=== PATIENT | female | born 1965 | race Caucasian/White ===

== ENCOUNTER 2024-04-29 19:57 | Emergency (ER) | payer OTHER, SELFPAY ==
[2024-04-29 20:02] VITALS: BP 133/77
[2024-04-29 20:25] LABS: % Basophils 0.4 % (0-2); % Eosinophils 0.1 % (0-6); % Immature Granulocytes 0.6 % (0-0.5); % Lymphocytes 7.3 % (20.5-51.1); % Monocytes 7.3 % (1.7-9.3); % Neutrophils 84.3 % (42.2-75.2); Absolute Immature Granulocytes 0.1 10^3/uL (0-0.05); Absolute Lymphocytes 0.7 10^3/uL (1.2-3.4); Absolute Monocytes 0.7 10^3/uL (0.1-0.6); Absolute Neutrophils 8.3 10^3/uL (1.4-6.5); Hematocrit 35.6 % (37.0-47.0); Mean Corp Hgb Conc. 33.7 g/dL (33.0-37.0); Mean Corpuscular Hgb 29.4 pg (27.0-31.0); Mean Corpuscular Volume 87.3 fL (81.0-99.0); Mean Platelet Volume 11.2 fL (7.4-10.4); Nucleated Red Blood Cells % 0 %; Platelet Count 165 10^3/uL (130-400); Red Blood Cell Count 4.08 10^6/uL (4.20-5.40); Red Cell Dist. Width 13.9 % (11.5-14.5); White Blood Cell Count 9.8 10^3/uL (4.8-10.8)
[2024-04-29 20:30] LABS: Lactic Acid 2.3 mmol/L (0.7-2.0)
[2024-04-29 20:34] LABS: COVID-19 Antigen Negative (Negative)
[2024-04-29 20:46] LABS: ALT (SGPT) 26 U/L (0-35); AST (SGOT) 45 U/L (14-36); Albumin 3.7 g/dl (3.5-5.0); Alkaline Phosphatase 55 U/L (38-126); Blood Urea Nitrogen 23 mg/dl (7-17); Calcium 8.5 mg/dl (8.4-10.2); Carbon Dioxide 22 mmol/L (22-30); Chloride 97 mmol/L (98-107); Glucose 213 mg/dl (70-99); Potassium 4.5 mmol/L (3.5-5.1); Sodium 128 mmol/L (135-145); Total Protein 6.4 g/dl (6.3-8.2); eGFR 57.52
--- NOTE | 2024-04-29 21:52 | ED.GENMED ---
Addendum entered and electronically signed by YIFAN Thrasher 05/01/24 23:46:
Blood cx positive for gram stain of anaerobic blood cx; gram positive cocci urine cx however is e coli. I spoke with pt at home. She is feeling much better no fevers taking antibiotics and has follow-up with her family doctor.
Likely contaminant culture. sensitivities pending on urine cx
Original Note:
History of Present Illness
General
Chief Complaint: Fever
Source: patient
Exam Limitations: none
Time Seen by Provider: 04/29/24 21:15
History of Present Illness
History of Present Illness:
This is a 58 year old female that comes in with c/o dizziness, and not feeling right. States that 2 days ago she started to not feel well. States that she was sleeping a lot. States that when she would walk she was dizzy and lightheaded. States
that she did get up yesterday and went out for a drive with her children. Then she came home. States that she had shaking chills. States that today she was a little better but still felt unsteady. States that she had a headache with the dizziness.
States that she had a fever today. Denies any chest pain, SOB, abd pain, nausea, vomiting, diarrhea, urinary burning.
Past History
Past History
ED Past Medical History: Cancer (Endometrial CA, Breast CA), HTN, Hypercholesterolemia, IDDM and Other (Coarctation of aorta status post repair, breast CTA, )
ED Past Surgical History: Cardiac (Co-archtation of the aorta with stent), (2 ), Gynecological (Hysterectomy), Tonsilectomy and Other (Bilateral Mastectomy Right lymphectomy)
Social History
Tobacco: Non-smoker
Alcohol: None
Drug: None
Personal: Other ()
Living: with family
Review of Systems
Review of Systems
All Other Systems: ROS reviewed and negative except as documented in HPI and ROS
Constitutional: Reports fever and chills
EENT: Reports no symptoms
Respiratory: Reports no symptoms; Denies cough or trouble breathing
Cardiac: Reports no symptoms; Denies chest pain
ABD/GI: Reports no symptoms; Denies abdominal pain, nausea, vomiting or diarrhea
: Reports no symptoms; Denies dysuria, frequency or urgency
Musculoskeletal: Reports no symptoms
Skin: Reports no symptoms
Neurological: Reports dizzy and headache
Psychiatric: Reports no symptoms
Phy Exam
General Physical Exam
General Presentation: no apparent distress
General age: appears stated age
General Skin: cool and other (Clammy)
General Habitus: normal
General Mental: alert
General Hydration: appears well hydrated
ENT Exam
ENT Exam: TM's normal, pharynx normal and neck supple
Eye Exam
Eye Exam: EOMI
Cardiovascular Exam
Cardiovascular Exam: regular rate/rhythm, no edema, normal peripheral pulses and other (Murmur)
Pulmonary Exam
Pulmonary Exam: lungs clear, no respiratory distress, no rales, chest non tender, no crackles, no rhonchi, no wheezing and no cough
Gastrointestinal Exam
Gastrointestinal Exam: normal bowel sounds, non tender, soft, no organomegaly, no pulsatile mass and non distended
Musculoskeletal Exam
Musculoskeletal Exam: full ROM and no edema
Skin Exam
Skin Exam: normal color, warm/dry, no rash and no petechia
Psychiatric Exam
Psychiatric Exam: normal mood/affect
Course
Orders/Labs/Results
Orders:
Orders
04/29/24 20:13
COVID-19 Antigen Urgent
Source: Nasal Swab
Complete Blood Count/With Diff Urgent
Comprehensive Metabolic Panel Urgent
Lactic Acid Urgent
04/29/24 21:52
CT Head W/o Iv Contrast Urgent
Comment:
Reason For Exam: Dizziness
0.9% Sodium Chloride 1000 ml [Nss] 1,000 ml IV BOLUS
CR Chest - 2 Views Urgent
Comment:
Reason For Exam: Fever
04/29/24 21:56
Urinalysis Reflex To Culture Urgent
Date Specimen was Collected: 04/29/24
Time Specimen was Collected: 21:53
Urine Microscopic Reflex Cult Urgent
Influenza A+B Rapid Molecular Urgent
FAN Source: Nasal Swab
Specimen Description:
Urine Culture Urgent
FAN Source: U
Specimen Description:
Date Specimen was Collected: 04/29/24
Time Specimen was Collected: 21:53
04/30/24 00:03
0.9% Sodium Chloride 1000 ml [Nss] 1,000 ml IV BOLUS
04/30/24 00:08
Blood Culture Urgent
FAN Source: Blood/Venous
Specimen Description:
04/30/24 00:53
CefTRIAXone [Rocephin] 1,000 mg IV NOW STA
Abnormal Lab Results
04/29/24 04/29/24
20:13 21:56
RBC 4.08 L 10^6/uL
(4.20-5.40)
Hct 35.6 L %
(37.0-47.0)
MPV 11.2 H fL
(7.4-10.4)
Abs Immat Gran (auto) 0.1 H 10^3/uL
(0-0.05)
Absolute Neuts (auto) 8.3 H 10^3/uL
(1.4-6.5)
Absolute Lymphs (auto) 0.7 L 10^3/uL
(1.2-3.4)
Absolute Monos (auto) 0.7 H 10^3/uL
(0.1-0.6)
Immature Gran % 0.6 H %
(0-0.5)
Neutrophils % 84.3 H %
(42.2-75.2)
Lymphocytes % 7.3 L %
(20.5-51.1)
Sodium 128 L mmol/L
(135-145)
Chloride 97 L mmol/L
(98-107)
BUN 23 H mg/dl
(7-17)
Creatinine 1.1 H mg/dL
(0.6-1.0)
Glucose 213 H mg/dl
(70-99)
Lactic Acid 2.3 H mmol/L
(0.7-2.0)
AST 45 H U/L
(14-36)
Ur Occult Blood Reflex 2+ A
(Negative)
Leukocyte Esterase Rfl 2+ A
(Negative)
Urine WBC (Reflex) >100 A /HPF
(0-5)
Urine Bacteria (Reflex) Many A
(Negative)
Urine Albumin (Reflex) 3+ A
(Neg - Trace)
04/29/24 20:13
04/29/24 20:13
Hyponatremia. Chloride slightly low. Dehydration. Glucose nonfasting. Lactic acid elevated at 2.3, AST elevation. COVID and influenza negative.
Urine positive for infection.
Vital Signs
Initial and Last Documented VS:
Initial Vital Signs
Temp Pulse Resp BP Pulse Ox
102.6 F H 122 20 133/77 93
04/29/24 20:02 04/29/24 20:02 04/29/24 20:02 04/29/24 20:02 04/29/24 20:02
Last Documented Vital Signs
Temp Pulse Resp BP Pulse Ox
99.4 F 95 28 155/74 96
04/29/24 22:08 04/30/24 01:00 04/30/24 01:00 04/30/24 01:00 04/30/24 01:00
Exercise Specialist consulted with Physician
Exercise Specialist consulted with physician?: Yes
Name of Physician Consulted: Dr. Correia
MDM/Problems Addressed
Differential Diagnosis Includes:
COVID, UTI, Viral syndrome. Hyponatremia
MDM/Problems Addressed:
This is a 58 year old female that comes in with c/o dizziness and fever. States that this started 2 days ago and that she has just not felt well. State that he is off balance even when she walked from the BR in the ER room.
Will get labs, CT head, chest x-ray. Give IV fluids.
Back into see patient. Explained that her Sodium is low and that was why she had the 2 liters of fluid. Patient also has a UTI. Will give patient IV Rocephin here and an antibiotic for home for the next 7 days. Patient to limit her water intake to
6-8oz glasses daily. Follow up with the family doctor for recheck of her Sodium. Return with any concerns.
*Radiology
Radiology exam reviewed: preliminary read by ED provider (Chest-negative for active disease. ), radiology read reviewed (CT head- night hawk-NO acute intracranial findings. Disproportionate cerebellar vermis volume loss. Follow up with neurology is
recommended. Senescent changes. Prominent retrocerebellar CSF space is likely related to volume loss, though an arachnoid cyst is also possible. Bilateral basal ganglia) and other (CT cont- mineralization. )
*Pulse Oximetry
Patient hypoxic: no
*EKG
Interpreted by ED Provider?: NA
Rate: EKG- N/A
*Poll Clerk Interpretation
Rate: Poll Clerk- N/A
*Critical Care Note
Total Time (30-74mins, 75-104mins- exclusive of procedures): Not Applicable
ED Attending Note
-
Portions of this chart may have been created with voice recognition software.� Occasional wrong word or��sound alike� substitutions may have occurred due to the inherent limitations of voice recognition software.
Discharge Plan
Departure
Patient Disposition: Home (Routine Discharge)
Date of Disposition: 04/30/24
Time of Disposition: 01:02
Patient with high blood pressure during this ER visit?: Yes
Condition: Good
Covid-19: Negative COVID-19
Discharge Problem:
Urinary tract infection
Instructions: Urinary Tract Infection, Adult ED, BLOOD PRESSURE
Prescriptions:
New
cefdinir 300 mg capsule
300 mg PO BID Qty: 14 0RF
No Action
acetaminophen [Tylenol Extra Strength] 500 MG tablet
500 mg PO Q6HPRN PRN (Reason: mild pain/fever)
ascorbic acid (vitamin C) [Vitamin C] 500 MG tablet
1,000 mg PO DAILY@1000
amlodipine 10 MG tablet
10 mg PO DAILY
cholecalciferol (vitamin D3) 2,000 UNITS tablet
2,000 units PO DAILY@1000
multivitamin with folic acid [Tab-A-Sherley] 1 TABLET tablet
1 tab PO DAILY@1000
insulin glargine [Lantus Solostar U-100 Insulin] 300 UNITS/3 ML insulin pen
36 units SC HS Qty: 5 0RF
Rx Instructions:
E11.65
tramadol 50 MG tablet
50 mg PO BIDPRN PRN (Reason: shoulder pain)
Patient Comments:
12/18/21- perscribed by Brianne de luna 11/10/21
ibuprofen 200 MG tablet
800 mg PO Q6H
metaxalone [Skelaxin] 800 MG tablet
800 mg PO TID
rosuvastatin 20 MG tablet
20 mg PO QPM
insulin aspart U-100 [Novolog FlexPen U-100 Insulin] 300 UNITS/3 ML insulin pen
17 units SC AC
losartan 50 MG tablet
50 mg PO BID Qty: 60 0RF
metoprolol tartrate 25 MG tablet
25 mg PO BID Qty: 60 0RF
azithromycin 250 mg tablet
250 mg PO DAILY 4 Days Qty: 4 0RF
amoxicillin-pot clavulanate 875-125 mg tablet
1 tab PO BID 7 Days Qty: 14 0RF
fluticasone propionate [Flonase Allergy Relief] 50 mcg/actuation spray,suspension
1 spray intranasal BID Qty: 16 0RF
Referrals:
Jesus Hughes DO [Family Provider] - Follow up in 2-3 days
Activity Restrictions/Additional Instructions:
As discussed, your blood work shows that your sodium is low and you are also dehydrated. You have been given 2 liters of fluid. Your CT of the head is negative for any acute process. Your chest x-ray is normal. You are negative for COVID and
influenza. You also had a urinary tract infection. You have been given IV antibiotic here and a prescription has been sent to your Pharmacy. Please limit your water intake for the next 2-3 days to 6-8oz glasses daily. Follow up with the family
doctor for repeat labs in 2-3 days to check your sodium level. IF YOU HAVE INCREASED DIZZINESS, WEAKNESS, FEVER THAT IS NOT CONTROLLED OR YOU HAVE ANY OTHER CONCERNS PLEASE RETURN TO THE EMERGENCY ROOM.
Interventions
Interventions:
*Risk Screen - Suicide Last Done: 04/29/24 20:02
*General Assessment Last Done: 04/29/24 20:02
*Neglect/Abuse Screening Last Done: 04/29/24 20:02
ED- Fall Risk Assessment Last Done: 04/29/24 22:08
*ED COVID-19 Vaccine History Last Done: 04/29/24 20:02
ED- Neurological Assessment Last Done: 04/29/24 22:08
ED-Skin Assessment Last Done: 04/29/24 22:08
Discharge Date and Time
Print Language: JORDANIAN
[2024-04-29] MEDS: NSS 1000 IV (22:00)
[2024-04-29 22:04] VITALS: BP 122/67
[2024-04-29 23:38] VITALS: BP 142/61
[2024-04-30] VITALS: BP 142/73
[2024-04-30] MEDS: NSS 1000 IV (00:09)
[2024-04-30 00:26] LABS: Urine Albumin 3+ (Neg - Trace); Urine Bilirubin Negative (Negative); Urine Character Very Cloudy (Clear); Urine Color Yellow; Urine Glucose Negative (Negative); Urine Ketone Negative (Negative); Urine Leukocyte 2+ (Negative); Urine Nitrite Negative (Negative); Urine Occult Blood 2+ (Negative); Urine Specific Gravity 1.015 (<1.030); Urine Urobilinogen Negative (Neg - 1+)
[2024-04-30 00:48] LABS: Urine Mucus Many
[2024-04-30 00:49] LABS: Urine Amorphous Seen; Urine Squamous Cell >30 /LPF (Few)
[2024-04-30 00:50] LABS: Urine Bacteria Many (Negative); Urine White Cell >100 /HPF (0-5)
[2024-04-30] MEDS: ROCEPHIN 1000 MG IV (00:56)
[2024-04-30 01:00] VITALS: BP 155/74
== END 2024-04-30 01:23 | disposition home or self-care (01) ==
LOC: EMR 19:57
PROVIDERS: Clinical Nurse Specialist Family Health; Emergency Medicine; EMERGENCY PHYSICIAN Emergency Medicine; FAMILY PHYSICIAN Family Medicine
DX: R42 Dizziness and giddiness (principal); R51.9 Headache, unspecified; R50.9 Fever, unspecified; N39.0 Urinary tract infection, site not specified; Z11.52 Encounter for screening for COVID-19; E86.0 Dehydration; E87.1 Hypo-osmolality and hyponatremia; I10 Essential (primary) hypertension; E11.9 Type 2 diabetes mellitus without complications; E78.00 Pure hypercholesterolemia, unspecified; Z79.4 Long term (current) use of insulin; Z85.3 Personal history of malignant neoplasm of breast; Z85.42 Personal history of malignant neoplasm of other parts of uterus; Z87.74 Personal history of (corrected) congenital malformations of heart and circulatory system; Z95.5 Presence of coronary angioplasty implant and graft; Z88.1 Allergy status to other antibiotic agents; Z88.7 Allergy status to serum and vaccine
CPT/HCPCS: 99284; 96374; 96361; 70450; 71046; 80053; 81003; 81015; 83605; 85025; 87040; 87077; 87086; 87147; 87186; 87205; 87502; 87811

== ENCOUNTER 2024-05-03 18:29 | Emergency (ER) | payer OTHER, SELFPAY ==
[2024-05-03 18:30] VITALS: BMI 35.6
[2024-05-03 18:34] VITALS: BP 162/89
[2024-05-03 19:48] VITALS: BP 159/80
[2024-05-03 20:00] VITALS: BP 176/85
[2024-05-03 20:50] LABS: % Basophils 0.6 % (0-2); % Immature Granulocytes 0.8 % (0-0.5); % Lymphocytes 22.7 % (20.5-51.1); % Monocytes 7.6 % (1.7-9.3); % Neutrophils 66.3 % (42.2-75.2); Absolute Basophils 0.1 10^3/uL (0-0.2); Absolute Eosinophils 0.2 10^3/uL (0-0.7); Absolute Immature Granulocytes 0.1 10^3/uL (0-0.05); Absolute Lymphocytes 2.3 10^3/uL (1.2-3.4); Absolute Monocytes 0.8 10^3/uL (0.1-0.6); Absolute Neutrophils 6.7 10^3/uL (1.4-6.5); Hematocrit 33.5 % (37.0-47.0); Hemoglobin 11.3 g/dL (12.0-16.0); Mean Corp Hgb Conc. 33.7 g/dL (33.0-37.0); Mean Corpuscular Hgb 29.6 pg (27.0-31.0); Mean Corpuscular Volume 87.7 fL (81.0-99.0); Mean Platelet Volume 11.6 fL (7.4-10.4); Nucleated Red Blood Cells % 0 %; Platelet Count 204 10^3/uL (130-400); Red Blood Cell Count 3.82 10^6/uL (4.20-5.40); Red Cell Dist. Width 13.9 % (11.5-14.5); White Blood Cell Count 10.1 10^3/uL (4.8-10.8)
[2024-05-03 21:21] LABS: ALT (SGPT) 50 U/L (0-35); AST (SGOT) 62 U/L (14-36); Albumin 3.8 g/dl (3.5-5.0); Alkaline Phosphatase 74 U/L (38-126); Blood Urea Nitrogen 28 mg/dl (7-17); Calcium 9.1 mg/dl (8.4-10.2); Carbon Dioxide 25 mmol/L (22-30); Chloride 104 mmol/L (98-107); Estimated Creatinine Clearance 65 ml/min; Glucose 148 mg/dl (70-99); Potassium 3.4 mmol/L (3.5-5.1); Sodium 138 mmol/L (135-145); Total Bilirubin 0.3 mg/dl (0.2-1.3); Total Protein 6.5 g/dl (6.3-8.2); eGFR 57.52
[2024-05-03] MEDS: NSS 500 IV (21:37)
--- NOTE | 2024-05-03 22:33 | ED.GENMED ---
History of Present Illness
General
Chief Complaint: Abnormal Lab Value
Source: patient
Exam Limitations: none
Time Seen by Provider: 05/03/24 20:19
Nursing documentation reviewed up to this point in time: agreed with
History of Present Illness
History of Present Illness:
58-year-old female with a history of hypertension and hyperlipidemia, diabetes who presents to the emergency room to have repeat blood cultures drawn. Patient was seen in this emergency room a few days ago and diagnosed with a UTI. At that time
she had blood culture drawn and sent as well as a urine culture; was ultimately discharged on cefdinir and is on day 4 of 7. She received a phone call to go over culture results; urinalysis was positive for E. coli, blood culture came back positive
for coag negative staph. Patient has been feeling better but followed with her primary doctor and although blood culture likely contaminated patient returned to the emergency room tonight to have repeat culture drawn. She feels well her only
complaint is that she has had some loose stools today since starting the antibiotic; she did have some dizziness earlier when she bent over to tie her shoes but says she has not been drinking very much water today. She says urinary symptoms have
resolved, denies abdominal pain, denies fever chills or any other complaints.
Past History
Past History
ED Past Medical History: Cancer (Endometrial CA, Breast CA), HTN, Hypercholesterolemia, IDDM and Other (Coarctation of aorta status post repair, breast CTA, )
ED Past Surgical History: Cardiac (Co-archtation of the aorta with stent), (2 ), Gynecological (Hysterectomy), Tonsilectomy and Other (Bilateral Mastectomy Right lymphectomy)
Social History
Tobacco: Non-smoker
Alcohol: None
Drug: None
Personal: Other ()
Living: with family
Review of Systems
Review of Systems
All Other Systems: ROS reviewed and negative except as documented in HPI and ROS
Constitutional: Denies fever or chills
Respiratory: Denies trouble breathing
Cardiac: Denies chest pain
ABD/GI: Reports diarrhea; Denies abdominal pain, nausea or vomiting
: Denies dysuria, frequency or flank pain
Musculoskeletal: Denies neck pain or back pain
Neurological: Denies headache
Phy Exam
Physical Exam
Physical Exam:
General: Awake, alert, oriented x3; no acute distress
Head: Normocephalic, atraumatic
Eyes: Conjunctiva normal, EOMI
Throat: Airway intact, handling secretions
Neck: Trachea midline, supple without meningismus
Lungs: Clear to auscultation bilaterally, no wheezing, rales, rhonchi
Heart: Regular rate and rhythm, faint systolic murmur (chronic, she has a history of coarctation of the aorta which was stented)
Abd: Soft, non distended, nontender
Neuro: No gross deficit
Skin: no rash
Extremities: No edema in extremities, equal pulses in all extremities
Scores
Heart Failure Risk
Heart Failure Risk Score: Not Applicable
Heart Score for Chest Pain Patients
STEMI patient?: Not applicable
Withdrawal Assessment of Alcohol
Withdrawal Assessment Completed?: Not applicable
Course
Orders/Labs/Results
Orders:
Orders
05/03/24 20:42
Complete Blood Count/With Diff Urgent
Comprehensive Metabolic Panel Urgent
Blood Culture Routine
FAN Source: Blood/Venous
Specimen Description:
Blood Culture Urgent
FAN Source: Blood/Venous
Specimen Description:
05/03/24 21:32
0.9% Sodium Chloride 500 ml [Nss] 500 ml IV BOLUS
Abnormal Lab Results
05/03/24
20:42
RBC 3.82 L 10^6/uL
(4.20-5.40)
Hgb 11.3 L g/dL
(12.0-16.0)
Hct 33.5 L %
(37.0-47.0)
MPV 11.6 H fL
(7.4-10.4)
Abs Immat Gran (auto) 0.1 H 10^3/uL
(0-0.05)
Absolute Neuts (auto) 6.7 H 10^3/uL
(1.4-6.5)
Absolute Monos (auto) 0.8 H 10^3/uL
(0.1-0.6)
Immature Gran % 0.8 H %
(0-0.5)
Potassium 3.4 L mmol/L
(3.5-5.1)
BUN 28 H mg/dl
(7-17)
Creatinine 1.1 H mg/dL
(0.6-1.0)
Glucose 148 H mg/dl
(70-99)
AST 62 H U/L
(14-36)
ALT 50 H U/L
(0-35)
05/03/24 20:42
05/03/24 20:42
Vital Signs
Pulse: 88
Resp Rate: 14
Initial and Last Documented VS:
Initial Vital Signs
Temp Pulse Resp BP Pulse Ox
36.6 C 105 22 162/89 97
05/03/24 18:34 05/03/24 18:34 05/03/24 18:34 05/03/24 18:34 05/03/24 18:34
Last Documented Vital Signs
Temp Pulse Resp BP Pulse Ox
37.2 C 82 16 165/80 98
05/03/24 22:37 05/03/24 22:37 05/03/24 22:37 05/03/24 22:37 05/03/24 22:37
MDM/Problems Addressed
Differential Diagnosis Includes:
Medical screening
MDM/Problems Addressed:
58-year-old female returns to the emergency room to have repeat blood cultures drawn�was seen last week for UTI and treated with cefdinir, all of these symptoms have improved. She had a blood culture drawn x 1 which grew back coag negative staph
and ultimately opted to come to the emergency room to have them redrawn. She had some tachycardia in triage heart rate in the 80s on my assessment. Rest of vitals normal. She appears quite well with a reassuring physical exam. We send repeat
blood work and she has no leukocytosis; creatinine 1.1 which is similar to prior she had slight hypokalemia like related to her diarrhea today�advised to add some potassium to her diet. We did give her some fluid here since she had some diarrhea
and said she had an episode of dizziness when she tied her shoes today. We redrew blood cultures on her. I do not think that admission is indicated at this point�culture likely contaminant, patient appears well with reassuring labs and vitals and
symptoms have all improved. I think she is stable for discharge and we will follow-up on the culture as an outpatient and she feels very comfortable with this plan as well. All questions answered.
*Pulse Oximetry
Patient hypoxic: no
*Critical Care Note
Total Time (30-74mins, 75-104mins- exclusive of procedures): Not Applicable
Data Reviewed
Review of Other/Old Records Reveals: Labs, Records and Testing
Source: patient and records
ED Attending Note
-
Portions of this chart may have been created with voice recognition software.� Occasional wrong word or��sound alike� substitutions may have occurred due to the inherent limitations of voice recognition software.
Discharge Plan
Departure
Patient Disposition: Home (Routine Discharge)
Date of Disposition: 05/03/24
Time of Disposition: 22:33
Patient with high blood pressure during this ER visit?: Yes
Discharge Problem:
Encounter for medical screening examination
Instructions: BLOOD PRESSURE
Prescriptions:
No Action
acetaminophen [Tylenol Extra Strength] 500 MG tablet
500 mg PO Q6HPRN PRN (Reason: mild pain/fever)
ascorbic acid (vitamin C) [Vitamin C] 500 MG tablet
1,000 mg PO DAILY@1000
amlodipine 10 MG tablet
10 mg PO DAILY
cholecalciferol (vitamin D3) 2,000 UNITS tablet
2,000 units PO DAILY@1000
multivitamin with folic acid [Tab-A-Sherley] 1 TABLET tablet
1 tab PO DAILY@1000
insulin glargine [Lantus Solostar U-100 Insulin] 300 UNITS/3 ML insulin pen
36 units SC HS Qty: 5 0RF
Rx Instructions:
E11.65
tramadol 50 MG tablet
50 mg PO BIDPRN PRN (Reason: shoulder pain)
Patient Comments:
12/18/21- perscribed by Brianne de luna 11/10/21
ibuprofen 200 MG tablet
800 mg PO Q6H
metaxalone [Skelaxin] 800 MG tablet
800 mg PO TID
rosuvastatin 20 MG tablet
20 mg PO QPM
insulin aspart U-100 [Novolog FlexPen U-100 Insulin] 300 UNITS/3 ML insulin pen
17 units SC AC
losartan 50 MG tablet
50 mg PO BID Qty: 60 0RF
metoprolol tartrate 25 MG tablet
25 mg PO BID Qty: 60 0RF
azithromycin 250 mg tablet
250 mg PO DAILY 4 Days Qty: 4 0RF
amoxicillin-pot clavulanate 875-125 mg tablet
1 tab PO BID 7 Days Qty: 14 0RF
fluticasone propionate [Flonase Allergy Relief] 50 mcg/actuation spray,suspension
1 spray intranasal BID Qty: 16 0RF
cefdinir 300 mg capsule
300 mg PO BID Qty: 14 0RF
Referrals:
UNKNOWN - PT DOES,NOT KNOW [Family Provider] -
Activity Restrictions/Additional Instructions:
Thank you for visiting the Emergency Department at [facility].
1. Please schedule a follow up appointment as directed. Call first thing tomorrow morning to make an appointment.
2. If indicated, please take your medications as instructed and indicated on discharge paperwork.
3. If any of your symptoms do not improve, or persist, or become more severe within 6-12 hours, please return to the emergency department for further care.
4. Please return to the emergency department if you develop a headache, neck pain/stiffness, fever greater than 100.4F, chest pain, shortness of breath, persistent nausea, vomiting, slurred speech, difficulty walking, numbness/tingling, weakness,
signs of infection or any other symptoms that are worrisome to you.
Please call [phone] if you have any questions.
Interventions
Interventions:
*Risk Screen - Suicide Last Done: 05/03/24 18:34
*General Assessment Last Done: 05/03/24 18:34
*Neglect/Abuse Screening Last Done: 05/03/24 18:34
ED- Fall Risk Assessment Last Done: 05/03/24 19:49
*ED COVID-19 Vaccine History Last Done: 05/03/24 18:34
*Nursing Disposition Last Done: 05/03/24 22:56
Discharge Date and Time
Discharge Date/Time: 05/03/24 22:57
Print Language: MACEDONIAN
[2024-05-03 22:37] VITALS: BP 165/80
== END 2024-05-03 22:57 | disposition home or self-care (01) ==
LOC: EMR 18:29
PROVIDERS: EMERGENCY PHYSICIAN Emergency Medicine
DX: Z76.89 Persons encountering health services in other specified circumstances (principal); E78.00 Pure hypercholesterolemia, unspecified; I10 Essential (primary) hypertension; E11.9 Type 2 diabetes mellitus without complications; Z85.3 Personal history of malignant neoplasm of breast; Z87.440 Personal history of urinary (tract) infections; Z87.74 Personal history of (corrected) congenital malformations of heart and circulatory system; Z90.13 Acquired absence of bilateral breasts and nipples; Z90.710 Acquired absence of both cervix and uterus; Z95.5 Presence of coronary angioplasty implant and graft
CPT/HCPCS: 99283; 96360; 80053; 85025; 87040

== ENCOUNTER 2024-05-20 01:02 | Inpatient (IN) | payer OTHER, BC, SELFPAY ==
[2024-05-19 19:18] VITALS: BP 108/64
[2024-05-19 19:35] VITALS: BP 141/94
[2024-05-19 19:36] VITALS: BP 138/80
[2024-05-19 19:56] LABS: % Basophils 0.1 % (0-2); % Immature Granulocytes 0.4 % (0-0.5); % Lymphocytes 15.8 % (20.5-51.1); % Monocytes 11.1 % (1.7-9.3); % Neutrophils 72.6 % (42.2-75.2); Absolute Lymphocytes 1.7 10^3/uL (1.2-3.4); Absolute Monocytes 1.2 10^3/uL (0.1-0.6); Absolute Neutrophils 7.6 10^3/uL (1.4-6.5); Hemoglobin 14.1 g/dL (12.0-16.0); Mean Corp Hgb Conc. 34.4 g/dL (33.0-37.0); Mean Corpuscular Hgb 30.1 pg (27.0-31.0); Mean Corpuscular Volume 87.4 fL (81.0-99.0); Mean Platelet Volume 11.4 fL (7.4-10.4); Nucleated Red Blood Cells % 0 %; Platelet Count 275 10^3/uL (130-400); Red Blood Cell Count 4.69 10^6/uL (4.20-5.40); Red Cell Dist. Width 14.5 % (11.5-14.5); White Blood Cell Count 10.5 10^3/uL (4.8-10.8)
--- NOTE | 2024-05-19 19:59 | ED.GENMED ---
History of Present Illness
General
Chief Complaint: Abdominal Pain
Time Seen by Provider: 05/19/24 19:39
History of Present Illness
History of Present Illness:
Patient presents to the emergency department with severe lower abdominal pain. Patient notes that she had diffuse abdominal pain earlier in the day and became more severe throughout the day. It is not localized but across the lower abdomen. Notes
feeling slightly dizzy. Notes being on multiple courses of antibiotics for E. coli UTI that has been ongoing for the past 3 weeks. Endorses bilateral low back pain, chills.
Past History
Past History
ED Past Medical History: Cancer (Endometrial CA, Breast CA), HTN, Hypercholesterolemia, IDDM and Other (Coarctation of aorta status post repair, breast CTA, )
ED Past Surgical History: Cardiac (Co-archtation of the aorta with stent), (2 ), Gynecological (Hysterectomy), Tonsilectomy and Other (Bilateral Mastectomy Right lymphectomy)
Social History
Tobacco: Non-smoker
Alcohol: None
Drug: None
Personal: Other ()
Living: with family
Phy Exam
Physical Exam
Physical Exam:
GENERAL APPEARANCE: NAD, well developed/ well nourished, non toxic appearing
EYES lids/conjunctiva normal
EARS/NOSE/THROAT Mucous membranes moist, uvula midline without oral pharyngeal erythema, exudate or swelling
HEAD/NECK normocephalic atraumatic, neck is supple.
RESPIRATORY respiratory effort normal, speaks in full sentences, no accessory muscle use. Lungs clear to auscultation without rhonchi, wheezes, rales
CARDIAC tachycardia, regular, no edema.
ABDOMINAL diffuse abdominal pain, guarding present, rebound present
MUSCLES/EXTREMITIES No abnormal range of motion, no swelling.
SKIN Warm, pink and dry. No rashes
NEUROLOGICAL Speech is clear and appropriate. Normal level of consciousness. 5/5 strength in all extremities.
PSYCH Normal mood and affect. Judgement/competence is appropriate
Course
Orders/Labs/Results
Orders:
Orders
05/19/24 19:22
Electrocardiogram (*1) Urgent
Reason for Study: Vertigo / Dizzy
EKG- Treatment ONCE
05/19/24 19:44
Complete Blood Count/With Diff Urgent
Comprehensive Metabolic Panel Urgent
Lactic Acid Urgent
Lipase Urgent
05/19/24 19:50
0.9% Sodium Chloride 1000 ml [Nss] 1,000 ml IV BOLUS
Acetaminophen [Tylenol] 1,000 mg PO NOW STA
Pulse Ox/cont/shift [RESP] Urgent
Quantity: 1
05/19/24 19:51
Electrocardiogram (*1) Urgent
Reason for Study: Other
Other Reason for Exam: sepsis
CR Chest - 2 Views Urgent
Comment:
Reason For Exam: rule out pneumoperitoneum, severe abd pain
05/19/24 20:28
Morphine Sulfate 4 mg IV NOW STA
Ondansetron Injectable [Zofran] 4 mg IV NOW STA
05/19/24 20:48
Blood Culture Urgent
FAN Source: Blood/Venous
Specimen Description:
05/19/24 21:47
CT Abd/pelvis W Iv Cont Urgent
Comment:
Reason For Exam: abdominal pain, fevers
05/19/24 21:48
Piperacillin/Tazo 3.375 Gram [Zosyn] 3.375 gram in 50 ml IV NOW
05/19/24 22:11
Lactic Acid Urgent
Urinalysis Reflex To Culture Urgent
Date Specimen was Collected: 05/19/24
Time Specimen was Collected: 22:08
Urine Microscopic Reflex Cult Urgent
05/19/24 22:37
0.9% Sodium Chloride 1000 ml [Nss] 1,000 ml IV BOLUS
Abnormal Lab Results
05/19/24 05/19/24
19:44 22:11
MPV 11.4 H fL
(7.4-10.4)
Absolute Neuts (auto) 7.6 H 10^3/uL
(1.4-6.5)
Absolute Monos (auto) 1.2 H 10^3/uL
(0.1-0.6)
Lymphocytes % 15.8 L %
(20.5-51.1)
Monocytes % 11.1 H %
(1.7-9.3)
Carbon Dioxide 21 L mmol/L
(22-30)
BUN 43 H mg/dl
(7-17)
Creatinine 1.1 H mg/dL
(0.6-1.0)
Glucose 191 H mg/dl
(70-99)
Lactic Acid 2.7 H mmol/L 2.4 H mmol/L
(0.7-2.0) (0.7-2.0)
Leukocyte Esterase Rfl Trace A
(Negative)
Urine Albumin (Reflex) 3+ A
(Neg - Trace)
05/19/24 19:44
05/19/24 19:44
Vital Signs
Initial and Last Documented VS:
Initial Vital Signs
Temp Pulse Resp BP Pulse Ox
100.3 F 57 16 108/64 99
05/19/24 19:18 05/19/24 19:18 05/19/24 19:18 05/19/24 19:18 05/19/24 19:18
Last Documented Vital Signs
Temp Pulse Resp BP Pulse Ox
100.3 F 57 16 108/64 99
05/19/24 19:18 05/19/24 19:18 05/19/24 19:18 05/19/24 19:18 05/19/24 19:18
*Critical Care Note
Total Time (30-74mins, 75-104mins- exclusive of procedures): Not Applicable
ED Attending Note
ED Attending Note
ED Attending Note:
Patient with lower abdominal pain, diffuse abdominal tenderness with temp of 100.3. Tachycardia noted. Concern for sepsis. Covered with Zosyn for suspected intra-abdominal source, giving IV fluids.
Urine does not appear infected.
Patient signed out to oncoming doctor pending CT abdomen pelvis and plan for likely admission.
-
Portions of this chart may have been created with voice recognition software.� Occasional wrong word or��sound alike� substitutions may have occurred due to the inherent limitations of voice recognition software.
Discharge Plan
Departure
Prescriptions:
No Action
acetaminophen [Tylenol Extra Strength] 500 MG tablet
500 mg PO Q6HPRN PRN (Reason: mild pain/fever)
ascorbic acid (vitamin C) [Vitamin C] 500 MG tablet
1,000 mg PO DAILY@1000
amlodipine 10 MG tablet
10 mg PO DAILY
cholecalciferol (vitamin D3) 2,000 UNITS tablet
2,000 units PO DAILY@1000
multivitamin with folic acid [Tab-A-Sherley] 1 TABLET tablet
1 tab PO DAILY@1000
insulin glargine [Lantus Solostar U-100 Insulin] 300 UNITS/3 ML insulin pen
36 units SC HS Qty: 5 0RF
Rx Instructions:
E11.65
tramadol 50 MG tablet
50 mg PO BIDPRN PRN (Reason: shoulder pain)
Patient Comments:
12/18/21- perscribed by Brianne de luna 11/10/21
ibuprofen 200 MG tablet
800 mg PO Q6H
metaxalone [Skelaxin] 800 MG tablet
800 mg PO TID
rosuvastatin 20 MG tablet
20 mg PO QPM
insulin aspart U-100 [Novolog FlexPen U-100 Insulin] 300 UNITS/3 ML insulin pen
17 units SC AC
losartan 50 MG tablet
50 mg PO BID Qty: 60 0RF
metoprolol tartrate 25 MG tablet
25 mg PO BID Qty: 60 0RF
azithromycin 250 mg tablet
250 mg PO DAILY 4 Days Qty: 4 0RF
amoxicillin-pot clavulanate 875-125 mg tablet
1 tab PO BID 7 Days Qty: 14 0RF
fluticasone propionate [Flonase Allergy Relief] 50 mcg/actuation spray,suspension
1 spray intranasal BID Qty: 16 0RF
cefdinir 300 mg capsule
300 mg PO BID Qty: 14 0RF
Referrals:
Jesus Hughes DO [Family Provider] -
Interventions
Interventions:
*Risk Screen - Suicide Last Done: 05/19/24 19:59
*General Assessment Last Done: 05/19/24 19:18
*Neglect/Abuse Screening Last Done: 05/19/24 19:59
*ED COVID-19 Vaccine History Last Done: 05/19/24 19:59
QI-Kqrnru-Sozninxvnq Assessment Last Done: 05/19/24 19:59
Discharge Date and Time
Print Language: JAPANESE
[2024-05-19 20:00] VITALS: BP 179/89
[2024-05-19 20:01] LABS: Lactic Acid 2.7 mmol/L (0.7-2.0)
[2024-05-19 20:22] LABS: ALT (SGPT) 26 U/L (0-35); AST (SGOT) 33 U/L (14-36); Albumin 4.3 g/dl (3.5-5.0); Alkaline Phosphatase 63 U/L (38-126); Blood Urea Nitrogen 43 mg/dl (7-17); Calcium 9.5 mg/dl (8.4-10.2); Carbon Dioxide 21 mmol/L (22-30); Chloride 98 mmol/L (98-107); Glucose 191 mg/dl (70-99); Lipase 166 U/L (23-300); Potassium 4.8 mmol/L (3.5-5.1); Sodium 135 mmol/L (135-145); Total Bilirubin 0.8 mg/dl (0.2-1.3); Total Protein 6.9 g/dl (6.3-8.2); eGFR 57.52
[2024-05-19] MEDS: NSS 1000 IV ×2 (20:23→22:43)
[2024-05-19] MEDS: TYLENOL 1000 MG PO (20:24)
[2024-05-19] MEDS: ZOFRAN 4 MG IV (20:40)
[2024-05-19] MEDS: MORPHINE SULFATE 4 MG IV (20:41)
[2024-05-19 20:57] VITALS: BP 111/71
[2024-05-19 22:07] VITALS: BP 151/82
[2024-05-19] MEDS: ZOSYN 50 IV (22:15)
[2024-05-19 22:17] LABS: Urine Albumin 3+ (Neg - Trace); Urine Bilirubin Negative (Negative); Urine Character Clear (Clear); Urine Color Yellow; Urine Glucose Negative (Negative); Urine Ketone Negative (Negative); Urine Leukocyte Trace (Negative); Urine Nitrite Negative (Negative); Urine Occult Blood Negative (Negative); Urine Urobilinogen Negative (Neg - 1+)
[2024-05-19 22:23] LABS: Urine Hyaline Cast 0-2 /LPF (0-2); Urine Red Blood Cell 0-2 /HPF (0-2)
[2024-05-19 22:24] LABS: Urine Mucus Few
[2024-05-19 22:29] LABS: Lactic Acid 2.4 mmol/L (0.7-2.0)
[2024-05-20] VITALS (17 sets, daily range): BP systolic 93–147; BP diastolic 58–115; BMI 35.3
--- NOTE | 2024-05-20 00:03 | ED.GENMED ---
History of Present Illness
General
Chief Complaint: Abdominal Pain
Time Seen by Provider: 05/19/24 19:39
Past History
Past History
ED Past Medical History: Cancer (Endometrial CA, Breast CA), HTN, Hypercholesterolemia, IDDM and Other (Coarctation of aorta status post repair, breast CTA, )
ED Past Surgical History: Cardiac (Co-archtation of the aorta with stent), (2 ), Gynecological (Hysterectomy), Tonsilectomy and Other (Bilateral Mastectomy Right lymphectomy)
Social History
Tobacco: Non-smoker
Alcohol: None
Drug: None
Personal: Other ()
Living: with family
Course
Orders/Labs/Results
Orders:
Orders
05/19/24 19:22
Electrocardiogram (*1) Urgent
Reason for Study: Vertigo / Dizzy
EKG- Treatment ONCE
05/19/24 19:44
Complete Blood Count/With Diff Urgent
Comprehensive Metabolic Panel Urgent
Lactic Acid Urgent
Lipase Urgent
05/19/24 19:50
0.9% Sodium Chloride 1000 ml [Nss] 1,000 ml IV BOLUS
Acetaminophen [Tylenol] 1,000 mg PO NOW STA
Pulse Ox/cont/shift [RESP] Urgent
Quantity: 1
05/19/24 19:51
Electrocardiogram (*1) Urgent
Reason for Study: Other
Other Reason for Exam: sepsis
CR Chest - 2 Views Urgent
Comment:
Reason For Exam: rule out pneumoperitoneum, severe abd pain
05/19/24 20:28
Morphine Sulfate 4 mg IV NOW STA
Ondansetron Injectable [Zofran] 4 mg IV NOW STA
05/19/24 20:48
Blood Culture Urgent
FAN Source: Blood/Venous
Specimen Description:
05/19/24 21:47
CT Abd/pelvis W Iv Cont Urgent
Comment:
Reason For Exam: abdominal pain, fevers
05/19/24 21:48
Piperacillin/Tazo 3.375 Gram [Zosyn] 3.375 gram in 50 ml IV NOW
05/19/24 22:11
Lactic Acid Urgent
Urinalysis Reflex To Culture Urgent
Date Specimen was Collected: 05/19/24
Time Specimen was Collected: 22:08
Urine Microscopic Reflex Cult Urgent
05/19/24 22:37
0.9% Sodium Chloride 1000 ml [Nss] 1,000 ml IV BOLUS
Abnormal Lab Results
05/19/24 05/19/24
19:44 22:11
MPV 11.4 H fL
(7.4-10.4)
Absolute Neuts (auto) 7.6 H 10^3/uL
(1.4-6.5)
Absolute Monos (auto) 1.2 H 10^3/uL
(0.1-0.6)
Lymphocytes % 15.8 L %
(20.5-51.1)
Monocytes % 11.1 H %
(1.7-9.3)
Carbon Dioxide 21 L mmol/L
(22-30)
BUN 43 H mg/dl
(7-17)
Creatinine 1.1 H mg/dL
(0.6-1.0)
Glucose 191 H mg/dl
(70-99)
Lactic Acid 2.7 H mmol/L 2.4 H mmol/L
(0.7-2.0) (0.7-2.0)
Leukocyte Esterase Rfl Trace A
(Negative)
Urine Albumin (Reflex) 3+ A
(Neg - Trace)
05/19/24 19:44
05/19/24 19:44
Vital Signs
Initial and Last Documented VS:
Initial Vital Signs
Temp Pulse Resp BP Pulse Ox
100.3 F 57 16 108/64 99
08/25/24 19:18 05/19/24 19:18 05/19/24 19:18 05/19/24 19:18 05/19/24 19:18
Last Documented Vital Signs
Temp Pulse Resp BP Pulse Ox
100.3 F 57 16 108/64 99
05/19/24 19:18 05/19/24 19:18 05/19/24 19:18 05/19/24 19:18 05/19/24 19:18
ED Attending Note
-
Portions of this chart may have been created with voice recognition software.� Occasional wrong word or��sound alike� substitutions may have occurred due to the inherent limitations of voice recognition software.
Discharge Plan
Departure
Patient Disposition: Admit
Date of Disposition: 05/20/24
Time of Disposition: 00:03
Admit to: Med/Surg
Admit to doctor: Boris
Condition: Serious
Discharge Problem:
Perforated sigmoid diverticulitis
Prescriptions:
No Action
acetaminophen [Tylenol Extra Strength] 500 MG tablet
500 mg PO Q6HPRN PRN (Reason: mild pain/fever)
ascorbic acid (vitamin C) [Vitamin C] 500 MG tablet
1,000 mg PO DAILY@1000
amlodipine 10 MG tablet
10 mg PO DAILY
cholecalciferol (vitamin D3) 2,000 UNITS tablet
2,000 units PO DAILY@1000
multivitamin with folic acid [Tab-A-Sherley] 1 TABLET tablet
1 tab PO DAILY@1000
insulin glargine [Lantus Solostar U-100 Insulin] 300 UNITS/3 ML insulin pen
36 units SC HS Qty: 5 0RF
Rx Instructions:
E11.65
tramadol 50 MG tablet
50 mg PO BIDPRN PRN (Reason: shoulder pain)
Patient Comments:
12/18/21- perscribed by Brianne de luna 11/10/21
ibuprofen 200 MG tablet
800 mg PO Q6H
metaxalone [Skelaxin] 800 MG tablet
800 mg PO TID
rosuvastatin 20 MG tablet
20 mg PO QPM
insulin aspart U-100 [Novolog FlexPen U-100 Insulin] 300 UNITS/3 ML insulin pen
17 units SC AC
losartan 50 MG tablet
50 mg PO BID Qty: 60 0RF
metoprolol tartrate 25 MG tablet
25 mg PO BID Qty: 60 0RF
azithromycin 250 mg tablet
250 mg PO DAILY 4 Days Qty: 4 0RF
amoxicillin-pot clavulanate 875-125 mg tablet
1 tab PO BID 7 Days Qty: 14 0RF
fluticasone propionate [Flonase Allergy Relief] 50 mcg/actuation spray,suspension
1 spray intranasal BID Qty: 16 0RF
cefdinir 300 mg capsule
300 mg PO BID Qty: 14 0RF
Referrals:
Jesus Hughes DO [Family Provider] -
Interventions
Interventions:
*Risk Screen - Suicide Last Done: 05/19/24 19:59
*General Assessment Last Done: 05/19/24 19:18
*Neglect/Abuse Screening Last Done: 05/19/24 19:59
*ED COVID-19 Vaccine History Last Done: 05/19/24 19:59
EQ-Oidhes-Ijtaegnjim Assessment Last Done: 05/19/24 19:59
Discharge Date and Time
Print Language: KAZAKH
--- NOTE | 2024-05-20 00:09 | ED.ADDNOTE ---
ED Addendum
ED Addendum
ED Addendum Note:
05/20/2024 0001 AM
CAT scan shows sigmoid diverticulitis with small teodoro perforation with small amount of free air locally as well as tracking distally to the upper abdomen. No evidence of abscess.
Patient has already been started on IV Zosyn.
She remains hemodynamically stable.
Will admit to hospitalist service and I have placed a call to colorectal surgery as well.
--- NOTE | 2024-05-20 00:47 | HPS.HSE ---
Family Physician
-
Family Physician: Jesus Hughes
Chief Complaint
-
Abd Pain
History of Present Illness
Patient is a 58y F with PMH significant for diverticular disease, HTN and DM-II who presents to ED complaining of abdominal pain. History obtained from patient and her son at the bedside. Patient is very [place]. Patient initially presented to the
ED here on 04/29/24 with complaints of dizziness and chills. She was noted to be febrile and evaluation at that time was positive for urinary infection (Cx = >100k CFU E coli). Patient was treated with cefdinir 300mg BID x 5 days. She had no
specific urinary symptoms at that time. A blood culture obtained during that visit was positive for coagulase negative Staph. Repeat cultures were done 05/03 and were negative.
Patient clinically felt improved on the abx regimen.
She apparently had a follow-up UA done at some point and was placed on another course of abx in the interim. She had no specific symptoms at that time.
Today patient noted some mild abdominal discomfort around 9 AM. This resolved.
Around 2PM she developed recurrent abdominal pain - across the entire lower abdomen - that has markedly increased throughout the afternoon. She has had nausea, but no emesis.
No complaints of diarrhea, bloody stools, etc.
Patient states that she has had mild episodes of diverticulitis in the past, but no prior episodes with pain of this intensity.
She remains quite uncomfortable at the time of my examination.
Medical History
Past Medical History
Past Medical History: Reports Other
Additional Past Medical History:
Hypertension
DM-II
Obesity
Coarctation of the Aorta
Breast Cancer s/p Mastectomy and Chemo
Uterine Cancer s/p Hysterectomy
Diverticular Disease
Past Surgical History: Reports Other
Additional Past Surgical History:
Bilateral Mastectomies and Breast Reconstructions
LETI
x 2
Aortic Stent Placement
Cataracts
Social History
Tobacco: Non-smoker
Alcohol: None
Drug: None
Family History
Family History: Other (Mother: Colon Cancer)
Allergies / Home Medications
Allergies reflects when Allergies were last updated in [facility].
Home Medications with original date entered in [facility]
Allergy/Medication List:
Allergies
Allergy/AdvReac Type Severity Reaction Status Date / Time
diphtheria, pertussis, Allergy Unknown Verified 05/19/24 19:20
tetanus vacc
gentamicin Allergy Hearing Verified 05/19/24 19:20
loss
Home Medications
amlodipine 10 mg tablet 10 mg PO DAILY Blood pressure 09/02/20
cholecalciferol (vitamin D3) 50 mcg (2,000 unit) tablet 2,000 units PO DAILY@1000 Supplement 09/02/20
multivitamin with folic acid 400 mcg tablet (Tab-A-Sherley) 1 tab PO DAILY@1000 Supplement 09/02/20
insulin aspart U-100 100 unit/mL (3 mL) subcutaneous pen (Novolog FlexPen U-100 Insulin aspart) 19 units SC AC Diabetes 12/18/21
rosuvastatin 20 mg tablet 30 mg PO QPM High cholesterol 12/18/21
losartan 50 mg tablet 50 mg PO BID #60 tabs 12/20/21
metoprolol tartrate 25 mg tablet 25 mg PO BID #60 tabs 12/20/21
amoxicillin 875 mg-potassium clavulanate 125 mg tablet 1 tab PO BID 7 days #14 tabs 11/11/22
aspirin 81 mg chewable tablet 81 mg PO DAILY 05/20/24
empagliflozin 10 mg tablet (Jardiance) 10 mg PO DAILY 05/20/24
tirzepatide 2.5 mg/0.5 mL subcutaneous pen injector (Mounjaro) 2.5 mg SC QWEEK 05/20/24
Review of Systems
-
History Source: Patient
A 12 point ROS was completed and negative except as noted: Yes
Constitutional: Reports Fatigue; Denies Fever or Chills
Respiratory: Denies Cough or Trouble Breathing
Cardiac: Denies Chest Pain or Palpitations
Abdomen/GI: Reports Abdominal Pain and Nausea; Denies Vomiting, Diarrhea, Constipated, Bloody Stools or Black Stools
: Denies Dysuria, Frequency or Flank Pain
Musculoskeletal: Denies Joint Pain or Edema
Neurological: Denies Dizzy or Headache
Psych: Denies Depression or Anxiety
Physical Exam
Vital Signs
Vital Signs
Temp Pulse Resp BP Pulse Ox
98.4 F 112 19 137/71 95
05/20/24 00:17 05/20/24 00:16 05/20/24 00:16 05/20/24 00:16 05/20/24 00:16
Physical Exam
General: Other (58y F in mild - moderate distress due to abdominal pain.)
HEENT: Moist mucous membranes and PERRLA
Respiratory: Clear; No Wheezes, Rales or Rhonchi
Cardiac: S1/S2, Tachycardia and Murmur (II/ SHERIF)
GI: Other (Obese, distended. Pos BS. Diffusely tender. Pos guarding.)
Musculoskeletal: No Clubbing, No Cyanosis and No Edema
Neuro: AO x 3
Laboratory Results
-
05/19/24 19:44
05/19/24 19:44
Laboratory Results
Lactic Acid Cancelled 05/20/24 01:00
Total Bilirubin 0.8 mg/dl (0.2-1.3) 05/19/24 19:44
AST 33 U/L (14-36) 05/19/24 19:44
ALT 26 U/L (0-35) 05/19/24 19:44
Alkaline Phosphatase 63 U/L (38-126) 05/19/24 19:44
Lipase 166 U/L (23-300) 05/19/24 19:44
Impression/Plan
-
A/P: Patient is a 58y F with PMH significant for HTN, DM-II and diverticular disease who presents to ED complaining of abdominal pain.
Acute Sigmoid Diverticulitis with Perforation
- Admit for further evaluation and treatment.
- CT scan done in the ED shows acute sigmoid diverticulitis with areas of air tracking throughout the abdomen concerning for teodoro perforation.
- Colorectal Surgery notified of CT findings - await further input.
- Lactate mildly elevated at 2.4. Trend with volume resuscitation.
- NPO, IVF support, pain control, supportive care.
- IV abx with Zosyn.
- Follow for clinical improvement.
TIFFANI v CKD
- SCr has been 1.1 since initial visit here on 04/29.
- Prior to that it had been normal at 0.7.
- ? development of CKD versus subacute kidney injury due to ongoing infectious process as noted above.
- IVF support as noted.
- Follow for changes in SCr / to establish true baseline.
Anion Gap Metabolic Acidosis
- AG = 16 on admission, likely lactic acidosis as noted above.
- Follow labs / lytes for changes with IVF support.
Benign Hypertension
- Stable. Hold most PO medications acutely.
- Continue Lopressor with holding parameters.
- Adjust meds as needed for BP control.
DM-II
- Stable. Hold PO medications.
- Follow glucose and cover with SSI as needed.
- Update A1C.
Coarctation of the Aorta
- s/p prior aortic stenting.
- Continue ASA.
DVT Prophylaxis: SCDs
Code Status: Full
[2024-05-20] MEDS: DILAUDID 0.5 MG IV ×4 (00:56→12:37)
[2024-05-20] MEDS: NSS 1000 IV ×3 (02:41→11:59)
--- NOTE | 2024-05-20 03:44 | PTCARENOTE ---
Addendum entered by Ita Rico 05/20/24 06:15:
Pt states pain is worsening in LLQ of abdomen despite receiving PRN diluadid.
Original Note:
Rec'd pt from ED RN. Pt oriented, c/o pain throughout abdomen, worse with movement. ED RN reported that she had just given pain medication to pt prior to arrival. Pt's son at bedside, who assisted with admission questions due to pt mouth being very
dry. Pt SaO2 88% on RA on arrival, this RN placed 2L NC with improvement to 96%. Pt NPO, this RN swabbed pt mouth with water and provided oral moisturizer packet. ST on manager recruitment. Call mejia within reach.
[2024-05-20] MEDS: ZOSYN 50 IV ×4 (03:53→21:43)
[2024-05-20] MEDS: TYLENOL 650 MG PO ×4 (04:11→19:22)
[2024-05-20 05:57] LABS: Hemoglobin 11.6 g/dL (12.0-16.0); Mean Corp Hgb Conc. 34.1 g/dL (33.0-37.0); Mean Corpuscular Hgb 29.9 pg (27.0-31.0); Mean Corpuscular Volume 87.6 fL (81.0-99.0); Mean Platelet Volume 11.8 fL (7.4-10.4); Platelet Count 164 10^3/uL (130-400); Red Blood Cell Count 3.88 10^6/uL (4.20-5.40); Red Cell Dist. Width 14.7 % (11.5-14.5); White Blood Cell Count 9.7 10^3/uL (4.8-10.8)
[2024-05-20 05:59] LABS: Blood Urea Nitrogen 46 mg/dl (7-17); Calcium 8.1 mg/dl (8.4-10.2); Carbon Dioxide 17 mmol/L (22-30); Chloride 103 mmol/L (98-107); Estimated Creatinine Clearance 51 ml/min; Glucose 259 mg/dl (70-99); Potassium 4.6 mmol/L (3.5-5.1); Sodium 134 mmol/L (135-145); eGFR 43.07
[2024-05-20] MEDS: NOVOLOG FLEXPEN-MODERATE RESISTANCE 5 UNITS SC ×2 (06:02→11:40)
--- NOTE | 2024-05-20 06:05 | PTCARENOTE ---
Pt states that she usually takes 19 units of insulin before breakfast, lunch, and dinner, but recently got cortisone shots last in her knees which elevates her blood sugar. She states that recently, her doctor told her it was ok to do 21
units before meals and occasionally 5 additional as needed to maintain adequate blood glucose after the injections. Pt also states that she takes munjaro once weekly, which she also took on .
[2024-05-20] MEDS: LOW STRENGTH ASPIRIN 81 MG PO (07:58)
[2024-05-20] MEDS: PROTONIX IV 40 MG IV (07:59)
[2024-05-20] MEDS: NSS (PRESERVATIVE FREE) 10 ML IV (07:59)
[2024-05-20] MEDS: NSS 500 IV (09:22)
[2024-05-20] MEDS: LOPRESSOR 25 MG PO (09:23)
[2024-05-20 09:48] LABS: INR 1.18; PT 14.8 Sec (11.4-14.6)
[2024-05-20 09:49] LABS: APTT 28.5 Sec (23.4-35.0)
[2024-05-20 09:54] LABS: Lactic Acid 2.1 mmol/L (0.7-2.0)
[2024-05-20 10:27] LABS: Glycohemoglobin (HgbA1c) 7.4 % (4.0-5.6)
--- NOTE | 2024-05-20 11:01 | CON.CRS ---
Consultation
-
Date/Time Consultation Requested: 05/20/2024, 01:36
Date/Time Consultation Performed: 05/20/2024, 08:40
Requesting Provider: Roge Escalante Do
Performing Provider: Bello Quiles MD
Reason for Consultation: diverticulitis
Medical History
-
Chief Complaint: abdominal pain
History of Present Illness:
58-year-old female with a past medical history of multiple previous attacks of diverticulitis and recent UTI as well as type 2 diabetes and history of breast cancer, presents to the ER last night due to abdominal pain. The patient states she had a
UTI a few weeks ago and was treated with outpatient antibiotics. She had felt improved from her UTI until yesterday afternoon she developed abdominal pain across her lower abdomen. Due to the pain she went to the emergency room. She states she
has had no nausea or vomiting but she did experience some chills at home. She denies bloody stools. She has had diverticulitis in the past 25 years but she cannot remember her last attack. She has never been hospitalized for this. Her last
colonoscopy she believes was [address] Shields in [place].
On arrival to the ER her WBC is 10.5 and 9.7 today. She was started on IV antibiotics and received a total of 2 L in boluses overnight. Her Tmax was this morning of 101.2. She initially was tachycardic in the 115's but now her pulse has
normalized. CT of the abdomen and pelvis showed moderate acute diverticulitis of the mid and distal sigmoid colon with associated perforation we have been consulted for further surgical recommendation.
Past Medical History
Past Medical History: HTN, NIDDM and Other (Obesity, coarctation of the aorta, breast cancer status postmastectomy and chemo, uterine cancer status post hysterectomy)
Past Surgical History: Other (Hysterectomy, 2 C-sections, bilateral mastectomy and breast reconstruction, LETI, aortic stent placement, cataracts)
Social History
Tobacco: Non-Smoker
Alcohol: None
Drug: None
Family History
Family History: Reviewed & Not Pertinent
Allergies / Home Medications
Allergy/AdvReac Type Severity Reaction Status Date / Time
diphtheria, pertussis, Allergy Unknown Verified 05/19/24 19:20
tetanus vacc
gentamicin Allergy Hearing Verified 05/19/24 19:20
loss
�Medication �Instructions �Recorded �Confirmed �Type
amlodipine 10 mg tablet 10 mg PO DAILY Blood pressure 09/02/20 05/20/24 History
cholecalciferol (vitamin D3) 50 2,000 units PO DAILY@1000 09/02/20 05/20/24 History
mcg (2,000 unit) tablet Supplement
multivitamin with folic acid 400 1 tab PO DAILY@1000 Supplement 09/02/20 05/20/24 History
mcg tablet (Tab-A-Sherley)
insulin aspart U-100 100 unit/mL 19 units SC AC Diabetes 12/18/21 05/20/24 History
(3 mL) subcutaneous pen (Novolog
FlexPen U-100 Insulin aspart)
rosuvastatin 20 mg tablet 30 mg PO QPM High cholesterol 12/18/21 05/20/24 History
losartan 50 mg tablet 50 mg PO BID #60 tabs 12/20/21 05/20/24 Rx
metoprolol tartrate 25 mg tablet 25 mg PO BID #60 tabs 12/20/21 05/20/24 Rx
amoxicillin 875 mg-potassium 1 tab PO BID 7 days #14 tabs 11/11/22 05/20/24 Rx
clavulanate 125 mg tablet
aspirin 81 mg chewable tablet 81 mg PO DAILY 05/20/24 05/20/24 History
empagliflozin 10 mg tablet 10 mg PO DAILY 05/20/24 05/20/24 History
(Jardiance)
tirzepatide 2.5 mg/0.5 mL 2.5 mg SC QWEEK 05/20/24 05/20/24 History
subcutaneous pen injector
(Fernando)
Review of Systems
-
History Source: Patient
Constitutional: Chills
Abdomen/GI: Abdominal Pain
A 10 point review of systems was completed, and was negative except as per HPI.
Physical Exam
Vital Signs
Temp 99.8 F 05/20/24 07:50
Pulse 75 05/20/24 10:00
Resp Rate 12 05/20/24 10:00
Blood pressure 93/58 05/20/24 10:00
SaO2 96 05/20/24 10:00
05/19/24 05/20/24 05/21/24
06:59 06:59 06:59
Actual Weight 99.1 kg
Body Mass Index (BMI) 35.3
Lab Results / Allergies
05/20/24 05:23
05/20/24 05:23
WBC 9.7 10^3/uL (4.8-10.8) 05/20/24 05:23
Hgb 11.6 g/dL (12.0-16.0) L 05/20/24 05:23
Hct 34.0 % (37.0-47.0) L 05/20/24 05:23
Plt Count 164 10^3/uL (130-400) D 05/20/24 05:23
Abs Immat Gran (auto) 0.0 10^3/uL (0-0.05) 05/19/24 19:44
Neutrophils % 72.6 % (42.2-75.2) 05/19/24 19:44
Allergy/AdvReac Type Severity Reaction Status Date / Time
diphtheria, pertussis, Allergy Unknown Verified 05/19/24 19:20
tetanus vacc
gentamicin Allergy Hearing Verified 05/19/24 19:20
loss
Physical Exam
General: Well Developed, Well Nourished and No Apparent Distress
GI: Soft and Tender (Diffuse moderate pain throughout, worse in the lower quadrants bilaterally)
Skin: Warm and Dry
Neuro: AO x 3
Assessment / Plan
-
Assessment: 58-year-old female with multiple prior attacks of diverticulitis, presents with abdominal pain abdominal pain and fevers, found to have moderate acute diverticulitis of the mid and distal sigmoid colon with associated perforation
Plan:
-No plans for surgery at this time however we will reassess later today to see if she has any improvement. We spoke to the patient regarding surgery which would involve a colectomy with colostomy creation. Patient is hesitant on this option right
now and feels like she is getting a little bit better. While she does not have leukocytosis, she does have quite diffuse tenderness on exam and she has been hypotensive, febrile, and tachycardic. Will reexamine later today and keep a close eye on
her vitals. Discussed with patient and son at bedside.
-Will have wound RN marker for possible colostomy
-1 L bolus x 2 now due to blood pressure 110s/60s
-N.p.o. status
-Continue IV fluids
-Continue IV antibiotics
-Hold metoprolol
-Eventual colonoscopy as an outpatient
[2024-05-20 11:25] LABS: Glucose - Point of Care 264 mg/dl (70-99)
--- NOTE | 2024-05-20 12:00 | WOUNDNOTE ---
KETURAH RN NOTE: Stoma sited patient as requested. LUQ marked at 7.5cm from midline and 6cm proximal from umbilical line. RUQ marked 6.5cm from midline and 7cm proximal from umbilical line. Abdomen soft and distended and patient having too much pain to
sit at side of bed. Tolerated sitting position in bed, lower quadrant gonsalves not visible when sitting up. Avoided scars and creases, upper quadrants only viable options.
--- NOTE | 2024-05-20 14:56 | W.PN.HOSP.TC ---
Today's Communication/Plan
-
ivf, monitor urine output, renal function
cont to monitor abdomen with pain regimen, conservative measures
hsq
Assessment / Plan
Assessment / Plan
General: Well Developed, Well Nourished and No Apparent Distress
GI: Soft and Tender (Diffuse moderate pain throughout, worse in the lower quadrants bilaterally)
Skin: Warm and Dry
Neuro: AO x 3
A/P: Patient is a 58y F with PMH significant for HTN, DM-II and diverticular disease who presents to ED complaining of abdominal pain.
Acute Sigmoid Diverticulitis with Perforation
Sepsis
- CT scan done in the ED shows acute sigmoid diverticulitis with areas of air tracking throughout the abdomen concerning for teodoro perforation.
�Hold on surgical intervention at this time - ctm
Continue to monitor
N.p.o., IV fluids
� Okay for p.o. medications
� Pain control
Continue IV antibiotics
Follow-up C. difficile due to recent antibiotic use
� HSQ for DVT prophylaxis
� Wound care for ostomy marking
TIFFANI v CKD
A septic ATN versus prerenal etiology with acute infection
- SCr has been 1.1 since initial visit here on 04/29.
- Prior to that it had been normal at 0.7.
- ? development of CKD versus subacute kidney injury due to ongoing infectious process as noted above.
- IVF support as noted.
- Follow for changes in SCr / to establish true baseline.
Anion Gap Metabolic Acidosis
- AG = 16 on admission, likely lactic acidosis as noted above.
- Follow labs / lytes for changes with IVF support.
#Hyponatremia
-mild
-cont to monitor
Benign Hypertension
- Stable. Hold most PO medications acutely.
- Continue Lopressor with holding parameters.
- Adjust meds as needed for BP control.
DM-II
- Stable. Hold PO medications.
- Follow glucose and cover with SSI as needed.
- Update A1C - 7.4
Coarctation of the Aorta
- s/p prior aortic stenting.
- Continue ASA.
DVT Prophylaxis: HSQ
Code Status: Full
Anticipated Discharge: > 48 hours
Subjective/Interval History
-
Date of Service: May 20, 2024
still in pain, but resting with pain regimen
Objective Data
-
Labs:
Laboratory Results
05/20/24 05/20/24
05:23 09:17
WBC 9.7
Hgb 11.6 L
Hct 34.0 L
Plt Count 164 D
PT 14.8 H
INR 1.18
APTT 28.5
Sodium 134 L
Potassium 4.6
Chloride 103
Carbon Dioxide 17 L
BUN 46 H
Creatinine 1.4 H
Glucose 259 H
Calcium 8.1 L
Vital Signs:
Vital Signs
Temp Pulse Resp BP Pulse Ox
98.1 F 83 18 108/73 95
05/20/24 12:07 05/20/24 12:00 05/20/24 12:00 05/20/24 12:00 05/20/24 12:00
Review of Systems
-
History Source: Patient
All other systems: Not reviewed unless documented
Data Reviewed
-
Diagnostic Radiology: Image personally visualized and interpreted and Report Reviewed by me
CT Scan: Image personally visualized and interpreted and Report Reviewed by me
Labs: Labs Reviewed by me
--- NOTE | 2024-05-20 15:41 | PTCARENOTE ---
Patient is Ax3. Son is at the bedside. Patient is experiencing moderate to severe pain in the left side of abdomen that is exacerbated with movement. See Mar. Patient was updated on plan of care and VS are stable. Call mejia within reach. Continuing
to monitor.
[2024-05-20] MEDS: LR 1000 IV (16:10)
[2024-05-20] MEDS: HEPARIN 5000 UNITS SC (16:14)
[2024-05-20] MEDS: DILAUDID 0.25 MG IV ×3 (16:23→22:45)
--- NOTE | 2024-05-20 16:30 | CM ---
Patient with Dx Acute Sigmoid Diverticulitis with Perforation, Sepsis. O2 2L. Receiving IVF, IV Abx.
Met with patient and son Carlos. Patient was very [place].
The patient resides with her son in a split level house with 1 [address] and 5 +12 stairs to bedroom/bath.
The patient has been independent in ADLs and ambulation.
The patient has no DME or prior VN.
PCP - Jesus Hughes
Pharmacy - [facility]
No CM d/c needs identified.
Plan home.
[2024-05-20 17:46] LABS: Glucose - Point of Care 193 mg/dl (70-99)
[2024-05-20] MEDS: NOVOLOG FLEXPEN-MODERATE RESISTANCE 1 UNITS SC (18:05)
--- NOTE | 2024-05-20 18:08 | W.PN.UPDATE ---
Update Note
Progress Note Update
Patient was seen and evaluated at bedside. She states that her pain has improved, but still requiring pain medicine. She has been afebrile. She did receive of a dose of metoprolol this morning, but her heart rate has continued to improve and is
now in the 80s�90s. Her systolic BP trended to the 90s this morning after her metoprolol dose, but improved to the 120s. On exam, she is moderately diffusely tender, worse in the LLQ with focal guarding, no rebound. After reviewing the risks of
continue nonoperative measures and risks of surgery, the patient would like to continue nonoperative measures for now. I explained that if she clinically worsens, she will likely need emergent surgery with possible ostomy. The patient the
patient's son understood and were agreeable to this plan.
[2024-05-20 22:29] LABS: Lactic Acid 1.2 mmol/L (0.7-2.0)
[2024-05-21] VITALS (15 sets, daily range): BP systolic 124–182; BP diastolic 67–96; BMI 36.0
[2024-05-21] MEDS: LR 1000 IV ×4 (00:10→23:01)
[2024-05-21] MEDS: HEPARIN 5000 UNITS SC ×4 (00:11→23:03)
[2024-05-21] MEDS: TYLENOL 650 MG PO ×6 (00:12→23:00)
[2024-05-21] MEDS: NOVOLOG FLEXPEN-MODERATE RESISTANCE 1 UNITS SC (00:18)
[2024-05-21 00:29] LABS: Glucose - Point of Care 163 mg/dl (70-99)
[2024-05-21] MEDS: DILAUDID 0.25 MG IV ×6 (01:45→21:07)
[2024-05-21] MEDS: ZOSYN 50 IV ×4 (04:50→21:08)
--- NOTE | 2024-05-21 05:15 | PTCARENOTE ---
Caring for patient overnight. Pt remained in 5-6/10 pain throughout the night, requiring prn Dilaudid Q3H & tylenol Q4H. Pt describes it as a sharp pain throughout her abdomen, more on her LLQ. Remained afebrile.
Beginning of shift NSR/ST low 100's. Pt went into SR w/ PAC and SA at times. EKG was done this morning, consistently SA but wanted to be sure it was not afib, HR was in 110's. EKG was SR with frequent pac's. BP's steady but rising this morning.
pt refusing all turns. wants to lay flat and does not want to move. educated pt on importance of turning and protecting her skin.
IVF & IVabx given.
Stomach remains very tender, distended, hard, round, hypoactive BS.
Good UO, remains on purewick. Bladder scan was 79 when checked overnight.
[2024-05-21 05:37] LABS: ALT (SGPT) 17 U/L (0-35); AST (SGOT) 22 U/L (14-36); Albumin 2.7 g/dl (3.5-5.0); Alkaline Phosphatase 47 U/L (38-126); Blood Urea Nitrogen 36 mg/dl (7-17); Calcium 8.1 mg/dl (8.4-10.2); Carbon Dioxide 21 mmol/L (22-30); Chloride 106 mmol/L (98-107); Estimated Creatinine Clearance 51 ml/min; Glucose 133 mg/dl (70-99); Magnesium 1.8 mg/dl (1.6-2.3); Potassium 4.5 mmol/L (3.5-5.1); Sodium 136 mmol/L (135-145); Total Bilirubin 0.7 mg/dl (0.2-1.3); Total Protein 5.1 g/dl (6.3-8.2); eGFR 43.07
[2024-05-21 05:38] LABS: Hematocrit 32.3 % (37.0-47.0); Hemoglobin 10.8 g/dL (12.0-16.0); Mean Corp Hgb Conc. 33.4 g/dL (33.0-37.0); Mean Corpuscular Hgb 29.8 pg (27.0-31.0); Mean Corpuscular Volume 89.2 fL (81.0-99.0); Mean Platelet Volume 11.8 fL (7.4-10.4); Platelet Count 118 10^3/uL (130-400); Red Blood Cell Count 3.62 10^6/uL (4.20-5.40); Red Cell Dist. Width 14.6 % (11.5-14.5); White Blood Cell Count 8.6 10^3/uL (4.8-10.8)
[2024-05-21] MEDS: NOVOLOG FLEXPEN-MODERATE RESISTANCE SC (05:53)
--- NOTE | 2024-05-21 06:00 | PTCARENOTE ---
Pt described a very sharp shooting pain that moved vertical along her abdomen. ST w/ frequent PAC. HR 100's. BP's running higher, probable due to pain, pain meds given. Will monitor closely.
[2024-05-21 06:03] LABS: Glucose - Point of Care 141 mg/dl (70-99)
[2024-05-21] MEDS: PROTONIX IV 40 MG IV (07:49)
[2024-05-21] MEDS: NSS (PRESERVATIVE FREE) 10 ML IV (07:49)
[2024-05-21] MEDS: LOW STRENGTH ASPIRIN 81 MG PO (07:49)
[2024-05-21 08:48] LABS: Glucose - Point of Care 151 mg/dl (70-99)
--- NOTE | 2024-05-21 11:06 | W.PN.CRS1 ---
Today's Communication / Plan
-
No plan for surgery today
Clears
Assessment/Plan
-
Assessment: 58-year-old female with multiple prior attacks of diverticulitis, presents with abdominal pain abdominal pain and fevers, found to have moderate acute diverticulitis of the mid and distal sigmoid colon with associated perforation
WBC 8.6. Tachycardic in 110s. Afebrile over the last 24 hours.
Plan:
-No plans for surgery at this time. Her exam has improved today. If she worsens she will require a colectomy with colostomy creation. She has been marked by wound RN in case this were to occur.
-Blood pressure has improved after holding metoprolol. Still tachycardic but likely due to holding metoprolol. Okay to restart from our perspective.
-Advance diet to clears
-Continue IV fluids
-Continue IV antibiotics
-Continue to trend WBC
-Eventual colonoscopy as an outpatient
Subjective Data
Subjective Data
Date of Service: May 21, 2024
Patient states she still has bilateral lower abdominal pain but is improving. She denies nausea or vomiting. She is not that hungry.
Objective Data
-
Vital Signs
Temp Pulse Resp BP Pulse Ox
99.1 F 119 19 177/75 95
05/21/24 07:15 05/21/24 09:00 05/21/24 09:00 05/21/24 09:00 05/21/24 09:00
Intake & Output
05/20/24 05/21/24 05/22/24
06:59 06:59 06:59
Output Total 1250 / 1250
Balance -1250 / -1250
Output:
Urine, Voided 1250 / 1250
Other:
How many times incontinent 1
SATURATED amount urine
Lab Results
05/21/24 04:49
05/21/24 04:49
Physical Exam
-
General: No Acute Distress and AOx3
Abdomen: Soft, Non Distended and Tender (Lower quadrants bilaterally, moderate, improved from yesterday)
Skin: Warm and Dry
[2024-05-21] MEDS: NOVOLOG FLEXPEN-MODERATE RESISTANCE 5 UNITS SC (12:23)
[2024-05-21 12:25] LABS: Glucose - Point of Care 253 mg/dl (70-99)
--- NOTE | 2024-05-21 14:56 | W.PN.HOSP.TC ---
Today's Communication/Plan
-
cont iv abx
repeat blood cultures
cld for now
add back amlodipine, lopressor
Assessment / Plan
Assessment / Plan
General: Well Developed, Well Nourished and No Apparent Distress
GI: Soft and Tender (Diffuse moderate pain throughout, worse in the lower quadrants bilaterally)
Skin: Warm and Dry
Neuro: AO x 3
A/P: Patient is a 58y F with PMH significant for HTN, DM-II and diverticular disease who presents to ED complaining of abdominal pain.
Acute Sigmoid Diverticulitis with Perforation
Sepsis
Bacteremia
- CT scan done in the ED shows acute sigmoid diverticulitis with areas of air tracking throughout the abdomen concerning for teodoro perforation.
�Hold on surgical intervention at this time - ctm
-Continue to monitor
�Clear liquid diet
� Pain control
�Continue IV antibiotics
�No diarrhea, no need for C. difficile at this time
� HSQ for DVT prophylaxis
� Wound care for ostomy marking
�Repeat blood cultures, source most likely GI
#thrombocytopenia
-most likely sepsis
-ctm with resuscitation
TIFFANI v CKD
A septic ATN versus prerenal etiology with acute infection
- SCr has been 1.1 since initial visit here on 04/29.
- Prior to that it had been normal at 0.7.
- ? development of CKD versus subacute kidney injury due to ongoing infectious process as noted above.
- IVF support as noted.
- Follow for changes in SCr / to establish true baseline.
Anion Gap Metabolic Acidosis
- AG = 16 on admission, likely lactic acidosis as noted above.
- Follow labs / lytes for changes with IVF support.
#Hyponatremia
-mild
-cont to monitor
Benign Hypertension
- Stable.
resume antihypertensives, hold acei due to possiblity of TIFFANI
DM-II
- Stable. Hold PO medications.
- Follow glucose and cover with SSI as needed.
- Update A1C - 7.4
Coarctation of the Aorta
- s/p prior aortic stenting.
- Continue ASA.
DVT Prophylaxis: HSQ
Code Status: Full
Total time spent on today's encounter was 50 minutes which included time spent in counseling the patient/family regarding diagnosis and treatment plan as listed above, goals of care, and symptom management. Case was discussed with nursing staff,
specialists, and care coordinators/case management. All labs and imaging personally reviewed by me. Remainder the time spent in detailed review of previous records, lab data, imaging, and other medical provider documentation.
Anticipated Discharge: 24 - 48 hours
Subjective/Interval History
-
Date of Service: May 21, 2024
Symptoms still persist, bacteremic
Objective Data
-
Labs:
Laboratory Results
05/21/24
04:49
WBC 8.6
Hgb 10.8 L
Hct 32.3 L
Plt Count 118 L D
Sodium 136
Potassium 4.5
Chloride 106
Carbon Dioxide 21 L
BUN 36 H
Creatinine 1.4 H
Glucose 133 H
Calcium 8.1 L
Total Bilirubin 0.7
AST 22
ALT 17
Alkaline Phosphatase 47
Vital Signs:
Vital Signs
Temp Pulse Resp BP Pulse Ox
100.6 F H 119 19 177/75 95
05/21/24 12:18 05/21/24 09:00 05/21/24 09:00 05/21/24 09:00 05/21/24 09:00
I&O
05/20/24 05/21/24 05/22/24
06:59 06:59 06:59
Output Total 1250 / 1250
Balance -1250 / -1250
Review of Systems
-
History Source: Patient
All other systems: Not reviewed unless documented
Data Reviewed
-
Diagnostic Radiology: Image personally visualized and interpreted and Report Reviewed by me
CT Scan: Image personally visualized and interpreted and Report Reviewed by me
Labs: Labs Reviewed by me
[2024-05-21] MEDS: NORVASC 10 MG PO (15:28)
[2024-05-21] MEDS: NOVOLOG FLEXPEN-MODERATE RESISTANCE 3 UNITS SC (16:32)
[2024-05-21 16:37] LABS: Glucose - Point of Care 238 mg/dl (70-99)
--- NOTE | 2024-05-21 18:25 | PTCARENOTE ---
Patient Ax3. Patient having severe abdominal pain requiring PRN Dilaudid and Tylenol. Patient complaining of being uncomfortable and was encouraged to move her legs and shift in the bed. Patient's son at the bedside. Continuing to monitor.
[2024-05-21] MEDS: LOPRESSOR 25 MG PO (20:34)
[2024-05-21 20:53] LABS: Hematocrit 33.9 % (37.0-47.0); Hemoglobin 11.6 g/dL (12.0-16.0); Mean Corp Hgb Conc. 34.2 g/dL (33.0-37.0); Mean Corpuscular Hgb 30.6 pg (27.0-31.0); Mean Corpuscular Volume 89.4 fL (81.0-99.0); Mean Platelet Volume 11.9 fL (7.4-10.4); Platelet Count 142 10^3/uL (130-400); Red Blood Cell Count 3.79 10^6/uL (4.20-5.40); Red Cell Dist. Width 14.6 % (11.5-14.5); White Blood Cell Count 11.4 10^3/uL (4.8-10.8)
--- NOTE | 2024-05-21 20:56 | PTCARENOTE ---
Received pt from ashley RN. Pt is AAOx3, [place], anxious, forgetful. Sinus tach/sinus arrhythmia on the monitor. Received pt on 2L NC, weaned to 1L NC O2 sat 95%, lungs clear. Pw in place, for incont. SCDs and TEDs in place. LR infusing @ 150 ml/hr.
Pt c/o abd pain, PRN pain medications given (see MAR). Hygiene provided. Pt is laying in bed with call mejia in reach, son @ bedside.
[2024-05-21 21:09] LABS: Blood Urea Nitrogen 27 mg/dl (7-17); Calcium 8.6 mg/dl (8.4-10.2); Carbon Dioxide 18 mmol/L (22-30); Estimated Creatinine Clearance 72 ml/min; Glucose 200 mg/dl (70-99); eGFR > 60.00
[2024-05-21 21:22] LABS: Glucose - Point of Care 200 mg/dl (70-99)
[2024-05-21 21:54] LABS: Chloride 105 mmol/L (98-107); Potassium 4.6 mmol/L (3.5-5.1); Sodium 133 mmol/L (135-145)
[2024-05-22] VITALS (15 sets, daily range): BP systolic 80–166; BP diastolic 48–109
[2024-05-22] MEDS: DILAUDID 0.25 MG IV ×2 (00:10→03:23)
[2024-05-22] MEDS: TYLENOL 650 MG PO ×2 (02:57→08:01)
[2024-05-22] MEDS: ZOFRAN 4 MG IV (03:31)
--- NOTE | 2024-05-22 03:41 | PTCARENOTE ---
Pt pressed call mejia, requesting Prn dilaudid. Primary RN busy.
This RN provided iv dilaudid per MAR for 7/10 abd pain. After few minutes pt yelled 'Im nauseous, it stinks and has a terrible taste'. Sat up HOB, Prn zofran provided. Pt able to belch and burped a few times. Emotional support provided. Pt stated
she felt better. Son at bedside. call mejia within reach.
[2024-05-22] MEDS: ZOSYN 50 IV ×3 (04:08→23:19)
[2024-05-22 04:14] LABS: Hematocrit 33.2 % (37.0-47.0); Hemoglobin 11.4 g/dL (12.0-16.0); Mean Corp Hgb Conc. 34.3 g/dL (33.0-37.0); Mean Corpuscular Hgb 30.6 pg (27.0-31.0); Mean Corpuscular Volume 89.2 fL (81.0-99.0); Platelet Count 139 10^3/uL (130-400); Red Blood Cell Count 3.72 10^6/uL (4.20-5.40); Red Cell Dist. Width 14.2 % (11.5-14.5)
[2024-05-22 04:39] LABS: ALT (SGPT) 15 U/L (0-35); AST (SGOT) 25 U/L (14-36); Albumin 2.5 g/dl (3.5-5.0); Alkaline Phosphatase 59 U/L (38-126); Blood Urea Nitrogen 24 mg/dl (7-17); Calcium 8.3 mg/dl (8.4-10.2); Carbon Dioxide 19 mmol/L (22-30); Chloride 105 mmol/L (98-107); Estimated Creatinine Clearance 80 ml/min; Glucose 186 mg/dl (70-99); Potassium 4.7 mmol/L (3.5-5.1); Sodium 135 mmol/L (135-145); Total Bilirubin 0.9 mg/dl (0.2-1.3); Total Protein 5.1 g/dl (6.3-8.2); eGFR > 60.00
[2024-05-22] MEDS: LR 1000 IV (06:19)
[2024-05-22] MEDS: DILAUDID 0.5 MG IV ×2 (07:54→11:48)
[2024-05-22] MEDS: HEPARIN 5000 UNITS SC ×2 (08:03→23:19)
[2024-05-22] MEDS: LOPRESSOR 25 MG PO (08:03)
[2024-05-22] MEDS: LOW STRENGTH ASPIRIN 81 MG PO (08:03)
[2024-05-22] MEDS: NORVASC 10 MG PO (08:03)
[2024-05-22] MEDS: NSS (PRESERVATIVE FREE) 10 ML IV (08:05)
[2024-05-22] MEDS: PROTONIX IV 40 MG IV (08:05)
[2024-05-22 08:30] LABS: Glucose - Point of Care 169 mg/dl (70-99)
--- NOTE | 2024-05-22 08:54 | W.PN.CRS1 ---
Today's Communication / Plan
-
As below
Assessment/Plan
-
58-year-old female with PMH of recurrent diverticulitis (states that she has had multiple episodes of diverticulitis over the last 25 years, none as severe as this 1), HTN, DM, breast cancer s/p bilateral mastectomy and chemo 15 years ago, uterine
cancer s/p LETI/BSO, recent visit to the hospital on 04/29 for UTI who presents for concern of acute abdominal pain for 1 day associated with chills, but denies any N/V or fevers. Her WBC was 10.[address] scan showed acute diverticulitis with
perforation, only a few flecks of free air scattered in the abdomen, no abscess or significant free fluid. Her last colonoscopy was 17 years ago
Febrile to 101.0 overnight, HR 100-110s, normotensive
WBC 11.0 from 11.4, Cr 0.9
�Acute perforated diverticulitis, only a few flecks of free air seen on CT
� No acute surgical intervention; however, patient still with mild tachycardia and low-grade fevers, abdominal exam not worse, but not better
�Will repeat CT with IV and p.o. contrast; if pneumoperitoneum or free fluid is worse, I would likely recommend surgery and I explained this to the patient; however, if there is now an abscess or if it appears improved, would continue with
nonoperative measures
� De-escalate to n.p.o. with IVF until completion of CT, okay for p.o. meds
� Continue pain control with Tylenol and 0.25 mg of Dilaudid as needed; if further escalation of pain control necessary, please notify the colorectal team
� Continue IV Zosyn, follow-up blood cultures
� Continue IVF for mild TIFFANI; now resolved
� Continue DVT PPx
� S/p WOCN for ostomy marking
� Appreciate hospitalist
Subjective Data
Subjective Data
Date of Service: May 22, 2024
Overnight, patient's HR jumped to 190 briefly. Repeat labs were unremarkable except WBC of 11.4. Per patient, her heart rate improved promptly
Pain appears the same, requiring small dose of Dilaudid every 3 hours.
She had some nausea after an injection, no vomiting.
-flatus -BMs +voiding
Objective Data
-
Vital Signs
Temp Pulse Resp BP Pulse Ox
98.9 F 113 19 153/96 96
05/22/24 07:47 05/22/24 06:00 05/22/24 06:00 05/22/24 06:00 05/22/24 06:00
Intake & Output
05/21/24 05/22/24 05/23/24
06:59 06:59 06:59
Intake Total 6420 / 6420
Output Total 1250 / 1250 1200 / 1200
Balance -1250 / -1250 5220 / 5220
Intake:
Oral fluids 2820 / 2820
IV fluids (Total) 3600 / 3600
Output:
Urine, Voided 1250 / 1250 1200 / 1200
Other:
How many times incontinent 1
SATURATED amount urine
Lab Results
05/22/24 04:00
05/22/24 04:00
Physical Exam
-
General: No Acute Distress and AOx3
HEENT: Grossly Normal
Abdomen: Soft, Distended (Mildly distended) and Tender (Diffuse tenderness has somewhat improved, but left lower quadrant tenderness remains moderate with focal guarding, no rebound)
Skin: Warm and Dry
[2024-05-22] MEDS: OMNIPAQUE 50 ML PO (10:07)
[2024-05-22] MEDS: NOVOLOG FLEXPEN-MODERATE RESISTANCE 1 UNITS SC ×2 (10:07→13:52)
--- NOTE | 2024-05-22 10:25 | PTCARENOTE ---
Patient NPO for CT of abdomen. Currently drinking contrast for scan. Medicated with IV dilaudid for abdominal pain rating 7/10. Patient yells out with her pain. Patient AAO X3 . Hard of hearing. Patient's son at bedside.
[2024-05-22 11:25] LABS: % Basophils 0.6 % (0-2); % Eosinophils 0.8 % (0-6); % Immature Granulocytes 6.9 % (0-0.5); % Lymphocytes 6.6 % (20.5-51.1); % Monocytes 5.5 % (1.7-9.3); % Neutrophils 79.6 % (42.2-75.2); Absolute Basophils 0.1 10^3/uL (0-0.2); Absolute Eosinophils 0.1 10^3/uL (0-0.7); Absolute Immature Granulocytes 0.8 10^3/uL (0-0.05); Absolute Lymphocytes 0.7 10^3/uL (1.2-3.4); Absolute Monocytes 0.6 10^3/uL (0.1-0.6); Absolute Neutrophils 8.8 10^3/uL (1.4-6.5); Nucleated Red Blood Cells % 0 %
--- NOTE | 2024-05-22 12:42 | CM ---
Patient with Dx Acute Sigmoid Diverticulitis with Perforation, Sepsis, TIFFANI. O2 2L. NPO/IVF. Receiving IVF, IV Abx. Plan CTabd/pelvis today.
CM continuing to follow.
No CM d/c needs identified.
Plan home.
[2024-05-22 14:10] LABS: Glucose - Point of Care 179 mg/dl (70-99)
--- NOTE | 2024-05-22 14:19 | W.PN.HOSP.TC ---
Today's Communication/Plan
-
npo
repeat imaging
Assessment / Plan
Assessment / Plan
General: Well Developed, Well Nourished and No Apparent Distress
GI: Soft and Tender (Diffuse moderate pain throughout, worse in the lower quadrants bilaterally)
Skin: Warm and Dry
Neuro: AO x 3
A/P: Patient is a 58y F with PMH significant for HTN, DM-II and diverticular disease who presents to ED complaining of abdominal pain.
Acute Sigmoid Diverticulitis with Perforation
Sepsis
Bacteremia
- CT scan done in the ED shows acute sigmoid diverticulitis with areas of air tracking throughout the abdomen concerning for teodoro perforation.
-Continue to monitor
� N.p.o.
� CT AP with contrast again
� Pain control
�Continue IV antibiotics
�No diarrhea, no need for C. difficile at this time
� HSQ for DVT prophylaxis
� Wound care for ostomy marking
�Repeat blood cultures, source most likely GI
#thrombocytopenia
-most likely sepsis
-ctm with resuscitation
TIFFANI v CKD
A septic ATN versus prerenal etiology with acute infection
- SCr has been 1.1 since initial visit here on 04/29.
- Prior to that it had been normal at 0.7.
- IVF support as noted.
--resolved
Anion Gap Metabolic Acidosis
- most likely related to tiffani
-improving
#Hyponatremia
-mild
-cont to monitor
Benign Hypertension
- Stable.
resume antihypertensives, hold acei due to possiblity of TIFFANI
DM-II
- Stable. Hold PO medications.
- Follow glucose and cover with SSI as needed.
- Update A1C - 7.4
Coarctation of the Aorta
- s/p prior aortic stenting.
- Continue ASA.
DVT Prophylaxis: HSQ
Code Status: Full
Total time spent on today's encounter was 51 minutes which included time spent in counseling the patient/family regarding diagnosis and treatment plan as listed above, goals of care, and symptom management. Case was discussed with nursing staff,
specialists, and care coordinators/case management. All labs and imaging personally reviewed by me. Remainder the time spent in detailed review of previous records, lab data, imaging, and other medical provider documentation.
Anticipated Discharge: > 48 hours
Subjective/Interval History
-
Date of Service: May 22, 2024
discomfort and bloating after contrast intake
Objective Data
-
Labs:
Laboratory Results
05/22/24
04:00
WBC 11.0 H
Hgb 11.4 L
Hct 33.2 L
Plt Count 139
Sodium 135
Potassium 4.7
Chloride 105
Carbon Dioxide 19 L
BUN 24 H
Creatinine 0.9
Glucose 186 H
Calcium 8.3 L
Total Bilirubin 0.9
AST 25
ALT 15
Alkaline Phosphatase 59
Vital Signs:
Vital Signs
Temp Pulse Resp BP Pulse Ox
99.2 F 102 17 164/76 96
05/22/24 11:44 05/22/24 12:55 05/22/24 12:55 05/22/24 12:55 05/22/24 12:55
I&O
05/21/24 05/22/24 05/23/24
06:59 06:59 06:59
Intake Total 6420 / 6420 530 / 530
Output Total 1250 / 1250 1200 / 1200
Balance -1250 / -1250 5220 / 5220 530 / 530
Review of Systems
-
History Source: Patient
All other systems: Not reviewed unless documented
Data Reviewed
-
Diagnostic Radiology: Image personally visualized and interpreted and Report Reviewed by me
CT Scan: Image personally visualized and interpreted and Report Reviewed by me
Labs: Labs Reviewed by me
--- NOTE | 2024-05-22 14:57 | W.PN.UPDATE ---
Update Note
Progress Note Update
CT scan reviewed with Dr. Matt Hannon of radiology. It reveals worsening of the diverticulitis with more free air and persistent inflammation. No abscess noted. The patient is still tachycardic and fairly tender on exam. I discussed the
situation with the patient and her son extensively at the bedside. I would estimate the conversation took 30 minutes. I recommended a trip to the OR for exploration and probable sigmoidectomy with colostomy. There is a chance of anastomosis
although colostomy is more likely. Operation was discussed in detail with the patient including risk and benefits. Risks discussed included but are not limited to bleeding, infection, ureteral injury, bowel or solid organ injury, hernia formation,
rectal stump dehiscence, recurrence of diverticulitis, sexuall or urinary dysfunction, and anesthetic risks. The patient has agreed to proceed. Of note, I did touch on the option of continued medical measures, which I did not advise given the
worsening of the CT and her persistent leukocytosis and tachycardia as well as persistent tenderness and pain. I fear she will go into full-blown sepsis without surgery. She understands this.
--- NOTE | 2024-05-22 15:00 | PTCARENOTE ---
OR prep and type and screen not completed prior to OR. Dr. Farnsworth aware. Needed to get her to OR immediately.
--- NOTE | 2024-05-22 15:01 | PTCARENOTE ---
Patient off unit to OR.
[2024-05-22 15:38] LABS: Glucose - Point of Care 161 mg/dl (70-99)
[2024-05-22 18:01] LABS: Glucose - Point of Care 252 mg/dl (70-99)
[2024-05-22 18:31] LABS: B.E. - POC -6.3 mmol/L; Glucose - POC 231 mg/dl (65-99); HCO3 - POC 22 mmol/L (21-29); Hematocrit - POC 31 % PCV (37-47); Hemodilution- POC Yes; Hemoglobin Calculated - POC 10.5; Ionized Calcium - POC 1.08 mmol/L (1.12-1.27); Lactate - POC 1.92 mmol/L (0.36-0.75); PCO2 - POC 56 mmHg (35-45); PO2 - POC 45 mmHg (80-100); Potassium - POC 5.3 mmol/L (3.6-5.0); Sodium - POC 133 mmol/L (135-145)
--- NOTE | 2024-05-22 19:12 | W.IMMPOSTOP ---
Addendum entered and electronically signed by Jesus Farnsworth MD 05/22/24 21:10:
Correction: Caridad's procedure is sigmoidectomy with colostomy not rectopexy.
Addendum entered and electronically signed by Jesus Farnsworth MD 05/22/24 20:51:
Of note, patient's son updated in patient's prior IMU room in a face to face fashion.
Addendum entered and electronically signed by Jesus Farnsworth MD 05/22/24 19:36:
Correction: will hold on blood transfusion after conversation with VENDING ROUTE SERVICER.
Original Note:
Surgical Immed Post Op Note
-
Primary Surgeon: Kermit Farnsworth MD
Assisting Surgeon: ZAK Patterson
Pre-op Diagnosis: perforated sigmoid diverticulitis
Post-op Diagnosis: same
Procedure Performed: 1) exploratory laparotomy 2) Caridad's resection (sigmoidectomy with rectopexy)
Anesthesia Type: general plus local
Specimen / Cultures: 1) abdominal fluid cultures 2) sigmoid with majority of descending colon
Estimated Blood Loss: 250 cc
Complications: splenic capsular tear (treated with TXA and Surgicel application)
Operative Findings: 1) perforated sigmoid diverticulitis with associated feculent/mucopurulent contamination and exudate 2) small bowel ileus
#19 Suman in pelvis.
NGT confirmed in stomach.
Ontiveros in bladder--methylene blue given intraoperatively so urine is now green colored.
Patient hypotensive on pressors. Keeping intubated and sending to ICU.
Will give a unit of PRBCs.
[2024-05-22] MEDS: SUBLIMAZE 100 MCG IV (20:04)
[2024-05-22] MEDS: DIPRIVAN 100 IV (20:11)
[2024-05-22] MEDS: NSS 1000 IV (20:14)
[2024-05-22 20:16] LABS: % Basophils 0.2 % (0-2); % Eosinophils 0.2 % (0-6); % Immature Granulocytes 1.7 % (0-0.5); % Lymphocytes 6.5 % (20.5-51.1); % Monocytes 6.5 % (1.7-9.3); % Neutrophils 84.9 % (42.2-75.2); Absolute Immature Granulocytes 0.3 10^3/uL (0-0.05); Absolute Lymphocytes 1.1 10^3/uL (1.2-3.4); Absolute Monocytes 1.1 10^3/uL (0.1-0.6); Hematocrit 26.7 % (37.0-47.0); Mean Corp Hgb Conc. 33.7 g/dL (33.0-37.0); Mean Corpuscular Hgb 30.7 pg (27.0-31.0); Mean Corpuscular Volume 91.1 fL (81.0-99.0); Mean Platelet Volume 12.2 fL (7.4-10.4); Nucleated Red Blood Cells % 0.1 %; Platelet Count 226 10^3/uL (130-400); Red Blood Cell Count 2.93 10^6/uL (4.20-5.40); Red Cell Dist. Width 14.3 % (11.5-14.5); White Blood Cell Count 16.5 10^3/uL (4.8-10.8)
[2024-05-22 20:18] LABS: INR 1.28; PT 16.1 Sec (11.4-14.6)
[2024-05-22 20:19] LABS: APTT 28.3 Sec (23.4-35.0)
[2024-05-22] MEDS: SUBLIMAZE 100 IV (20:20)
[2024-05-22 20:22] LABS: Blood Urea Nitrogen 26 mg/dl (7-17); Carbon Dioxide 17 mmol/L (22-30); Chloride 102 mmol/L (98-107); Estimated Creatinine Clearance 55 ml/min; Glucose 244 mg/dl (70-99); Phosphorus 5.5 mg/dl (2.5-4.5); Potassium 5.3 mmol/L (3.5-5.1); Sodium 133 mmol/L (135-145); eGFR 47.08
[2024-05-22 20:32] LABS: Triglycerides 637 mg/dl (10-149)
[2024-05-22] MEDS: ZOSYN IV (20:37)
[2024-05-22 20:43] LABS: B.E. -9.2 mmol/L; PCO2 37 mmHg (32-35); PO2 288 mmHg (83-108); pH 7.27 (7.35-7.45)
[2024-05-22] MEDS: LR IV ×2 (20:43→20:44)
[2024-05-22] MEDS: NOVOLOG FLEXPEN-MODERATE RESISTANCE SC (20:44)
[2024-05-22] MEDS: OFIRMEV 100 IV (21:01)
[2024-05-22] MEDS: SODIUM BICARBONATE 1150 MEQ IV (21:09)
[2024-05-22 21:11] LABS: Troponin I 0.023 ng/ml
[2024-05-22] MEDS: CALCIUM GLUCONATE 100 IV (21:21)
--- NOTE | 2024-05-22 22:00 | PTCARENOTE ---
Received patient as a direct back from OR. Started on fent and prop gtt per protocol. Patient able to follow commands, squeeze hands, nod appropriately. Hard of hearing. Normal sinus 80s-90s, EKG done. On levo gtt, titrating to maintain MAP>65. +1
generalized anasarca, normothermic. Weak palpable pedal pulses bilaterally. 7.0 ET tube, 21 at the lip, in the center. Vent settings 16/500/40%, PEEP 5. Saturating 98%. Lung sounds diminished throughout. 19 [place] kimmie drain on left abdomen,
draining sanguinous fluid. Midline incision covered with aquacell, old drainage outlined with pen. Bruises on thigh present on admission. [address] draining blueish/green urine, patient received methylene blue in OR. Left radial ibrahima
zeroed, flushed, leveled. LFA 22, LFA 16, and LAC 20 patent, WNL. Calcium repleted. Bicarb, levo, fent, and prop gtt ongoing. Mouth care done, CHG bath done, labs sent, repositioned. Son at bedside, updated, questions answered.
[2024-05-22] MEDS: SUBLIMAZE 50 MCG IV (22:10)
[2024-05-22 22:50] LABS: Hemoglobin 8.2 g/dL (12.0-16.0)
[2024-05-22] MEDS: NOVOLOG FLEXPEN-MODERATE RESISTANCE 5 UNITS SC (23:30)
[2024-05-22 23:42] LABS: Glucose - Point of Care 286 mg/dl (70-99)
[2024-05-22] MEDS: LEVOPHED 250 IV (23:52)
[2024-05-23] MEDS: SUBLIMAZE 50 MCG IV ×4 (00:08→04:37)
--- NOTE | 2024-05-23 00:28 | PTCARENOTE ---
Patient receiving one unit of blood. Previous drips ongoing per protocol. Son remains at bedside. Repositioned, mouth care done, aguilar care done. Hourly rounding and patient safety checks ongoing.
[2024-05-23 00:47] LABS: Blood Urea Nitrogen 30 mg/dl (7-17); Calcium 7.9 mg/dl (8.4-10.2); Carbon Dioxide 15 mmol/L (22-30); Chloride 102 mmol/L (98-107); Estimated Creatinine Clearance 51 ml/min; Glucose 287 mg/dl (70-99); Potassium 5.3 mmol/L (3.5-5.1); Sodium 132 mmol/L (135-145); eGFR 43.07
[2024-05-23] MEDS: DIPRIVAN 100 IV ×2 (01:39→06:09)
[2024-05-23 02:21] VITALS: BP 122/67
[2024-05-23] MEDS: OFIRMEV 100 IV ×3 (02:23→13:13)
[2024-05-23] MEDS: ZOSYN 50 IV ×4 (03:16→21:59)
--- NOTE | 2024-05-23 04:41 | PTCARENOTE ---
Patient assessment unchanged from previous. Titrating levo and fent per order, see flowsheets. Son remains at bedside. Mouth care done, repositioned. ETT repositioned.
[2024-05-23 04:42] VITALS: BMI 37.6
[2024-05-23 05:27] LABS: B.E. -8.5 mmol/L; HCO3 16.2 mmol/L (21-28); PCO2 30 mmHg (32-35); PO2 134 mmHg (83-108); pH 7.34 (7.35-7.45)
[2024-05-23 05:42] LABS: Hemoglobin 9.6 g/dL (12.0-16.0); Mean Corp Hgb Conc. 34.3 g/dL (33.0-37.0); Mean Corpuscular Hgb 29.9 pg (27.0-31.0); Mean Corpuscular Volume 87.2 fL (81.0-99.0); Platelet Count 231 10^3/uL (130-400); Red Blood Cell Count 3.21 10^6/uL (4.20-5.40); Red Cell Dist. Width 13.9 % (11.5-14.5); White Blood Cell Count 22.8 10^3/uL (4.8-10.8)
[2024-05-23 05:55] LABS: ALT (SGPT) 92 U/L (0-35); AST (SGOT) 131 U/L (14-36); Albumin 2.3 g/dl (3.5-5.0); Alkaline Phosphatase 55 U/L (38-126); Blood Urea Nitrogen 33 mg/dl (7-17); Calcium 7.6 mg/dl (8.4-10.2); Carbon Dioxide 15 mmol/L (22-30); Chloride 100 mmol/L (98-107); Estimated Creatinine Clearance 49 ml/min; Glucose 336 mg/dl (70-99); Potassium 5.1 mmol/L (3.5-5.1); Sodium 131 mmol/L (135-145); Total Bilirubin 1.1 mg/dl (0.2-1.3); Total Protein 4.4 g/dl (6.3-8.2); eGFR 39.65
[2024-05-23] MEDS: NOVOLOG FLEXPEN-MODERATE RESISTANCE 9 UNITS SC (05:58)
[2024-05-23] MEDS: SODIUM BICARBONATE 50 MEQ IV (06:09)
[2024-05-23] MEDS: CALCIUM GLUCONATE 100 IV (06:24)
[2024-05-23] MEDS: SUBLIMAZE 100 IV (06:28)
--- NOTE | 2024-05-23 07:37 | W.PN.ANS.POP ---
Anesthesia Post Operative
- Anesthesia Post Op Note
Vital Signs Stable-See Nursing Note: Yes (remains on Levophed gtt)
Airway Patent: Yes (remains intubated)
Adequate Pain Control: Yes
Change in Mental Status: No (remains on Propofol & Fentanyl)
Current Postoperative Nausea & Vomiting: No
Anesthesia Complications: No
General Anesthetic Recall: No
Unplanned Admission: No
Post Op Hydration Adequate: Yes
[2024-05-23 07:51] LABS: % Basophils 0.5 % (0-2); % Immature Granulocytes 0.7 % (0-0.5); % Lymphocytes 4.9 % (20.5-51.1); % Monocytes 4.9 % (1.7-9.3); Absolute Basophils 0.1 10^3/uL (0-0.2); Absolute Immature Granulocytes 0.2 10^3/uL (0-0.05); Absolute Lymphocytes 1.1 10^3/uL (1.2-3.4); Absolute Monocytes 1.1 10^3/uL (0.1-0.6); Absolute Neutrophils 20.3 10^3/uL (1.4-6.5); Nucleated Red Blood Cells % 0 %
[2024-05-23] MEDS: PROTONIX IV 40 MG IV (08:47)
[2024-05-23] MEDS: NSS (PRESERVATIVE FREE) 10 ML IV (08:47)
[2024-05-23] MEDS: LOW STRENGTH ASPIRIN 81 MG PO (08:48)
[2024-05-23] MEDS: HEPARIN 5000 UNITS SC ×2 (08:48→17:37)
[2024-05-23] MEDS: SODIUM BICARBONATE 1150 MEQ IV (09:30)
[2024-05-23 09:40] VITALS: BMI 37.6
--- NOTE | 2024-05-23 10:24 | W.PN.CRS1 ---
Today's Communication / Plan
-
Wean ventilator per primary team
Continue NG tube
Continue antibiotics
Wean pressors
Assessment/Plan
-
POD#1 1) exploratory laparotomy 2) Caridad's resection (sigmoidectomy with colostomy) due to sigmoid diverticulitis
-Trend WBC. WBC this morning is 22.8 as expected postoperatively.
-Continue IV antibiotics
-Wean ventilator per pressure supervisor team
-Wean Levophed per pressure supervisor team
-OR pathology pending
-Okay for out of bed once extubated
-JODIE drain in place, will be removed prior to discharge
-Continue Ontiveros for I's and O's
-Wound RN for stoma care
-Continue NG tube, output 50 mL
-Discussed surgery with son who was present at bedside this morning
Subjective Data
Procedure
05/22/2024- 1) exploratory laparotomy 2) Caridad's resection (sigmoidectomy with rectopexy)
Subjective Data
Date of Service: May 23, 2024
Patient is intubated and sedated. She is currently on a ventilator. She shows no signs of distress.
Objective Data
-
Vital Signs
Temp Pulse Resp BP Pulse Ox
99.3 F 93 16 122/67 98
05/23/24 07:30 05/23/24 07:00 05/23/24 07:00 05/23/24 02:21 05/23/24 08:36
Intake & Output
05/22/24 05/23/24 05/24/24
06:59 06:59 06:59
Intake Total 6420 / 6420 3949.1 / 4115.9 522.3 / 522.3
Output Total 1200 / 1200 1500.2 / 1500.2 110 / 110
Balance 5220 / 5220 2448.9 / 2615.7 412.3 / 412.3
Intake:
Oral fluids 2820 / 2820 480 / 480
IV fluids (Total) 3600 / 3600 1629.1 / 1795.9 422.3 / 422.3
Sterile Water For Injection 1000 / 1100 300 / 300
1000 ml 1,000 ml @ 100 mls/hr
IV .[id number] ANA with Sodium
Bicarbonate 150 Meq Rx#:
[id number]
fent 75.0 / 87.5 35.0 / 35.0
levo 360.0 / 390.0 45 / 45
prop 194.1 / 218.4 42.3 / 42.3
IV piggybacks 1500 / 1500 100 / 100
Amount instilled into GI Tube ( 90 / 90
Total)
[place] Sump 90 / 90
Blood Product Amount Infused ( 250 / 250
mL)
Packed Rbc Leukoreduced Unit 250 / 250
[id number]
Output:
Drain Output (Total) 400 / 400 35 / 35
Right Abdomen 400 / 400 35 / 35
Gastrointestinal tube output ( 50 / 50
Total)
[place] Sump 50 / 50
Urine, Ontiveros 350.2 / 350.2 75 / 75
Urine, Voided 1200 / 1200 700 / 700
Other:
How many times incontinent 1
SATURATED amount urine
Lab Results
05/23/24 05:17
Physical Exam
-
General: No Acute Distress and Other (intubated and sedated.)
Abdomen: Soft, Non Distended, Non Tender and Other (Midline dressing in place, colostomy pink and warm, JODIE drain with serous output)
Skin: Warm and Dry
Wound: Dressing in Place
--- NOTE | 2024-05-23 10:36 | WOUNDNOTE ---
[facility] RN NOTE: Reviewed chart and visited patient. Son Anshul at bedside. Patients stoma light pink with a scant amount of output. TT Raissa Glynn and plan is for midline dressing removal and ostomy change on Monday 05/28. Ostomy kit ordered and is in
room. Will continue to follow with patient for ostomy teaching and appliance change on 05/28.
--- NOTE | 2024-05-23 11:25 | PN.DE.MGMTRT ---
Insulin Management
- -
05/23/2024 Diabetes Management Consult
Patient admitted 05/19 with acute sigmoid diverticulitis with perforation. PMH endometrial CA, breast CA, HTN, HCL, steroid induced diabetes. Prior to admission was taking 19 units novolog AC with Mounjaro 2.5 weekly. (Had been taking lantus and
Jardiance but stopped due to hypoglycemia). A1C is 7.4, cr 1.5, eGFR 39.65.
POD 1 Patient is awake and alert, recently extubated, able to discuss diabetes management. Son, very attentive, at bedside. Patient states she sees Dr. Cordova and Omer Ndiaye PA-c at [facility]. Recently was started on Mounjaro and
Jardiance and had frequent low blood sugars. She states she could not get an appointment with Omer so she called her primary doctor who told her to stop Lantus and Jardiance.
Glucose this AM 336. Glycemic protocol to be initiated. Will follow for readiness to transition from IV insulin to lantus, novolog, Jardiance.
Assured patient and son both Jardiance and Lantus will resume with reduced dose of novolog AC and weekly Mounjaro.
Diabetes History
- -
Type of Diabetes: 2 requiring insulin
Pre-Admission Diabetes Regimen
05/22/24 05/23/24 05/23/24
19:57 00:05 05:17
Creatinine 1.3 H 1.4 H 1.5 H
Lab Results
Hemoglobin A1c 7.4 % (4.0-5.6) H 05/20/24 05:23
Insulin Pump Settings
IP Diabetes Regimen
05/22/24 05/22/24 05/22/24
13:50 15:36 18:00
Glucose
POC Glucose 179 H 161 H 252 H
05/22/24 05/22/24 05/23/24
19:57 23:30 00:05
Glucose 244 H 287 H
POC Glucose 286 H
05/23/24
05:17
Glucose 336 H
POC Glucose
Meal type: Lunch
Patient Education
--- NOTE | 2024-05-23 12:05 | CON.INTV ---
Consultation
Consultation Request
Date/Time Consultation Requested: 05/23/2024
Date/Time Consultation Performed: 05/23/2024
Requesting Provider: Dr. Farnsworth
Performing Provider: Dr. Srini Ayala
Reason for Consultation: Postoperative mechanical ventilation/respiratory failure
Medical History
-
History of Present Illness:
58-year-old woman with past medical history significant for diverticular disease, hypertension, type 2 diabetes who presented to the emergency room complaining of abdominal pain. Recently treated for urinary infection on 04/29/2024. Patient reported
improvement of symptoms at that time.
Patient reported some abdominal pain the morning of admission. Throughout the course of the day pain worsened. She was admitted to the hospital for further care.
CT abdomen pelvis performed demonstrated diverticulitis with concern for perforation.
She was followed for 24th for 48 hours on antibiotics, repeat CT showed worsening intraperitoneal air.
She was then taken to the operating room for exploratory laparotomy.
She underwent exploratory laparotomy, Barbour's resection on 05/22/2024.
Subsequently in the ICU, intubated, sedated from mechanical ventilation.
To my evaluation patient on low-dose Levophed.
Sedated with fentanyl drip and propofol drip.
Following commands with lightening sedation.
ET tube without significant secretions.
Past Medical History
Past Medical History: Other (See assessment and plan findings)
Social History
Tobacco: Non-smoker
Alcohol: None
Drug: None
Family History
Family History: Unable to Obtain
Allergies / Home Medications
Allergies
Allergy/AdvReac Type Severity Reaction Status Date / Time
diphtheria, pertussis, Allergy Unknown Verified 05/19/24 19:20
tetanus vacc
gentamicin AdvReac Hearing Verified 05/22/24 20:27
loss
Home Medications
�Medication �Instructions �Recorded �Confirmed �Last Taken �Type
amlodipine 10 mg tablet 10 mg PO DAILY Blood pressure 09/02/20 05/20/24 12/17/21 History
cholecalciferol (vitamin D3) 50 2,000 units PO DAILY@1000 09/02/20 05/20/24 12/17/21 History
mcg (2,000 unit) tablet Supplement
multivitamin with folic acid 400 1 tab PO DAILY@1000 Supplement 09/02/20 05/20/24 12/17/21 History
mcg tablet (Tab-A-Sherley)
insulin aspart U-100 100 unit/mL 19 units SC AC Diabetes 12/18/21 05/20/24 12/17/21 History
(3 mL) subcutaneous pen (Novolog
FlexPen U-100 Insulin aspart)
rosuvastatin 20 mg tablet 30 mg PO QPM High cholesterol 12/18/21 05/20/24 12/17/21 History
losartan 50 mg tablet 50 mg PO BID #60 tabs 12/20/21 05/20/24 Unknown Rx
metoprolol tartrate 25 mg tablet 25 mg PO BID #60 tabs 12/20/21 05/20/24 Unknown Rx
amoxicillin 875 mg-potassium 1 tab PO BID 7 days #14 tabs 11/11/22 05/20/24 Unknown Rx
clavulanate 125 mg tablet
aspirin 81 mg chewable tablet 81 mg PO DAILY Blood Clot 05/20/24 05/20/24 Unknown History
Prevention/Tx
empagliflozin 10 mg tablet 10 mg PO DAILY Diabetes 05/20/24 05/20/24 Unknown History
(Jardiance)
tirzepatide 2.5 mg/0.5 mL 2.5 mg SC QWEEK Diabetes 05/20/24 05/20/24 Unknown History
subcutaneous pen injector
(Mounjaro)
Review of Systems
-
Unable to Obtain full review of systems at this time due to: Acuity and Patient Intubation
Vitals / Labs / Diagnostic Testing
Vital Signs
Temp Pulse Resp BP Pulse Ox
98.7 F 93 16 122/67 98
05/23/24 11:21 05/23/24 07:00 05/23/24 07:00 05/23/24 02:21 05/23/24 08:36
Lab Data
05/23/24 05:17
Laboratory Results
05/22/24 05/22/24 05/23/24
19:57 20:35 05:17
PT 16.1 H
INR 1.28
APTT 28.3
pH 7.27 L 7.34 L
pCO2 37 H 30 L
pO2 288 H 134 H
HCO3 17.0 L 16.2 L
O2 Delivery Level
Microbiology
05/19/24 20:48 Blood/Venous Blood Culture - Preliminary
Positive culture in progress
05/19/24 20:48 Blood/Venous Gram Stain - Preliminary
05/21/24 17:56 Blood/Venous Blood Culture - Preliminary
No Growth in 24 hours- Final report to follow
Diagnostic Testing:
Physical Exam
-
HEENT: Normocephalic and Other (ET tube in place without secretions)
Cardiovascular: S1/S2
Respiratory: Clear and Non-Labored Respirations
GI: Distended (Obese, colostomy in place. Absent bowel sounds.)
Neurology: Awake, Alert and Other (Follows commands on sedation)
Skin: Good Color
General: Comfortable
Assessment
-
Acute abdomen: Acute diverticulitis with bowel perforation
CT abdomen pelvis reviewed: Perforated diverticula with intraperitoneal air.
Status post exploratory laparotomy 05/22/2024: Barbour's resection.
Postoperative mechanical ventilation
Septic shock
Acute kidney injury metabolic acidosis
Anion gap metabolic acidosis
Hyperglycemia postoperative anemia due to blood loss/acute
-
Conditions present prior admission:
Type 2 diabetes
Hypertension
Obesity
History of coarctation of the aorta
Breast cancer status postmastectomy and chemotherapy
Uterine cancer status post hysterectomy
Diverticular disease
Status post breast reconstruction
History of
Aortic stent placement
Cataracts
Assessment and plan:3
Critically ill on mechanical ventilation/recurrent vasopressors/acute kidney injury with metabolic acidosis.
-
Status post exploratory laparotomy for acute diverticulitis with perforation
Surgical correspondence/operative reports reviewed
-
N.p.o.
Follow cultures
Continue broad-spectrum antibiotics with pip-tazo for now.
-
Mechanical ventilation settings reviewed.
Pulmonary mechanics acceptable
Despite medium doses of sedation propofol/fentanyl patient following commands.
Continue to decrease sedation
Subsequently we performed spontaneous breathing trial for about 1 hour. Patient was hemodynamically stable, appropriate. Following commands per
Extubation occurred under my supervision 05/23/2024: No stridor on exam.
Continue low rate supplemental ox
Aspiration precautions
N.p.o. for now.
-
Septic shock/metabolic acidosis
Wean off Levophed as able
Hold antihypertensive for now
Follow renal function
Agree with bicarbonate drip
Repeat labs later, IV fluids will be adjusted depending on clinical situation and laboratory testing
Ontiveros in place: Ontiveros urinary output.
-
Analgesia with narcotics. Monitor respiratory status closely.
-
-
Hyperglycemia: Start insulin drip
Glycemic protocol.
-
Follow hemoglobin. Transfuse for hemoglobin less than 7.
-
N.p.o.
Hemoglobin elevation
-
DVT prophylaxis with SCDs
-
Critical care statement: A total of 38 minutes of critical care time was provided for this patient today. This includes management of unstable vital signs, evaluation of the patient at bedside, reviewing the patient's pertinent medical records
including ventilator settings, arterial blood gases, radiographs, microbiology, laboratory evaluations and discussion with primary team, critical care nursing, and respiratory therapy.
[2024-05-23] MEDS: NOVOLIN R INSULIN INFUSION 100 IV ×2 (12:07→23:45)
[2024-05-23] MEDS: NOVOLIN R 6 UNITS IV (12:12)
[2024-05-23 12:22] LABS: Glucose - Point of Care 311 mg/dl (70-99)
[2024-05-23 13:07] LABS: Glucose - Point of Care 285 mg/dl (70-99)
[2024-05-23] MEDS: DILAUDID 0.25 MG IV ×2 (13:12→21:00)
--- NOTE | 2024-05-23 13:54 | W.PN.HOSP.TC ---
Today's Communication/Plan
-
cont abx
npo, ngt
weaned off pressors, ivf prn; hold antihypertensives today
dm management
Assessment / Plan
Assessment / Plan
General: Well Developed, Well Nourished and No Apparent Distress
GI: Soft and Tender (Diffuse moderate pain throughout, worse in the lower quadrants bilaterally)
Skin: Warm and Dry
Neuro: AO x 3
A/P: Patient is a 58y F with PMH significant for HTN, DM-II and diverticular disease who presents to ED complaining of abdominal pain.
Acute Sigmoid Diverticulitis with Perforation
Sepsis
Bacteremia
#Exploratory laparotomy, Barbour's resection on 05/22/2024
- CT scan done in the ED shows acute sigmoid diverticulitis with areas of air tracking throughout the abdomen concerning for teodoro perforation.
� N.p.o.
� Pain control
�Continue IV antibiotics
-OR pathology pending
-JODIE drain in place
-Cont NG tube
�No diarrhea, no need for C. difficile at this time
� HSQ for DVT prophylaxis
� Wound care for ostomy marking
�Repeat blood cultures, source most likely GI
#Shock, hypovolemic
-post procedure -transient - most likely exacerbated by mechanical ventilation/sedation
-resolved, now off pressors
#Hyponatremia
-ctm
#thrombocytopenia
-most likely sepsis
-ctm with resuscitation
TIFFANI v CKD
Anion gap metabolic acidosis
A septic ATN versus prerenal etiology with acute infection
- SCr has been 1.1 since initial visit here on 04/29.
- Prior to that it had been normal at 0.7.
- IVF
-ctm
#Transaminitis
� Most likely secondary to transient hypotension/shock
Continue to monitor
Anion Gap Metabolic Acidosis
- most likely related to tiffani
-improving
#Hyponatremia
-mild
-cont to monitor
Benign Hypertension
- Stable.
resume antihypertensives, hold acei due to possiblity of TIFFANI
DM-II
- Stable. Hold PO medications.
- Follow glucose and cover with SSI as needed.
- Update A1C - 7.4
Coarctation of the Aorta
- s/p prior aortic stenting.
- Continue ASA.
DVT Prophylaxis: HSQ
Code Status: Full
Total time spent on today's encounter was 52 minutes which included time spent in counseling the patient/family regarding diagnosis and treatment plan as listed above, goals of care, and symptom management. Case was discussed with nursing staff,
specialists, and care coordinators/case management. All labs and imaging personally reviewed by me. Remainder the time spent in detailed review of previous records, lab data, imaging, and other medical provider documentation.
Anticipated Discharge: > 48 hours
Subjective/Interval History
-
Date of Service: May 23, 2024
tolerated exploratory laparotomy, Barbour's resection on 05/22/2024. extubated and off pressors this am.
Objective Data
-
Labs:
Laboratory Results
05/23/24 05/23/24
05:17 13:00
WBC 22.8 H
Hgb 9.6 L
Hct 28.0 L
Plt Count 231
HCO3 16.2 L
Sodium 131 L Pending
Potassium 5.1 Pending
Chloride 100 Pending
Carbon Dioxide 15 L Pending
BUN 33 H Pending
Creatinine 1.5 H Pending
Glucose 336 H Pending
Calcium 7.6 L Pending
Total Bilirubin 1.1
AST 131 H
ALT 92 H
Alkaline Phosphatase 55
Vital Signs:
Vital Signs
Temp Pulse Resp BP Pulse Ox
98.7 F 93 16 122/67 98
05/23/24 11:21 05/23/24 07:00 05/23/24 07:00 05/23/24 02:21 05/23/24 08:36
I&O
05/22/24 05/23/24 05/24/24
06:59 06:59 06:59
Intake Total 6420 / 6420 3949.1 / 4115.9 1042.3 / 1042.3
Output Total 1200 / 1200 1500.2 / 1500.2 350 / 350
Balance 5220 / 5220 2448.9 / 2615.7 692.3 / 692.3
Review of Systems
-
History Source: Patient
All other systems: Not reviewed unless documented
Data Reviewed
-
Diagnostic Radiology: Image personally visualized and interpreted and Report Reviewed by me
CT Scan: Image personally visualized and interpreted and Report Reviewed by me
Labs: Labs Reviewed by me
[2024-05-23 14:09] LABS: Glucose - Point of Care 286 mg/dl (70-99)
[2024-05-23 14:27] LABS: Hematocrit 22.1 % (37.0-47.0); Hemoglobin 7.8 g/dL (12.0-16.0)
[2024-05-23 14:50] LABS: Blood Urea Nitrogen 38 mg/dl (7-17); Calcium 7.5 mg/dl (8.4-10.2); Carbon Dioxide 24 mmol/L (22-30); Chloride 97 mmol/L (98-107); Estimated Creatinine Clearance 41 ml/min; Glucose 248 mg/dl (70-99); Phosphorus 4.9 mg/dl (2.5-4.5); Potassium 4.4 mmol/L (3.5-5.1); Sodium 130 mmol/L (135-145); eGFR 31.86
--- NOTE | 2024-05-23 14:59 | CM ---
CM following re: discharge planning.
Discussed in Rounds, reviewed pt's chart. Per Rounds meeting, pt is POD#1 1) exploratory laparotomy 2) Caridad's resection. Pt remains critically ill on mechanical ventilation/recurrent vasopressors/acute kidney injury with metabolic acidosis,
continue supportive care.
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
D/C plan: uncertain at this time and will depend on pt's progress.
CM will follow with discharge plan updates as hospitalization progresses
[2024-05-23 15:03] LABS: Glucose - Point of Care 254 mg/dl (70-99)
--- NOTE | 2024-05-23 15:17 | W.PN.UPDATE ---
Update Note
Progress Note Update
Extubated.
Tolerating well.
Decreased urinary output, creatinine trending higher.
Acidosis has resolved.
Discontinue bicarbonate drip
Transition to normal saline 120 cc an hour.
Will give 500 cc bolus of normal saline now.
Given declining hemoglobinAt 7.8 from 9.6, will give 1 unit of packed red blood cells per
Repeat labs at 9 PM.
Maintain ICU level of care.
[2024-05-23] MEDS: NSS 500 IV (15:35)
[2024-05-23] MEDS: NSS 1000 IV ×2 (15:35→23:46)
[2024-05-23] MEDS: DILAUDID 0.5 MG IV ×3 (15:36→22:43)
[2024-05-23 15:54] VITALS: BP 125/65
[2024-05-23 16:16] VITALS: BP 121/58
[2024-05-23 16:21] VITALS: BP 121/58
[2024-05-23 16:31] LABS: Glucose - Point of Care 223 mg/dl (70-99)
--- NOTE | 2024-05-23 16:44 | PTCARENOTE ---
Pt extubated at 0950. SpO2 95-99% on 4L NC. Lungs diminished. Pt encouraged to cough and deep breathe.
Sinus rhythm. +2 generalized edema.
NGT to low intermittent suction with green output. PRN Dilaudid given for report of abdominal pain. Very tender on left side. 10/10 pain with turning and repositioning. Scant serosanguineous drainage from ostomy. 180ml serosanguineous drainage
from JODIE so far this shift.
Poor urine output (see I&O) and worsening creat. notified. 500ml bolus NSS given. IVF changed to NSS.
1 unit of PRBC infusing for Hgb 7.8 from 9.6 this am.
Lost IV access while blood infusing. Insulin gtt placed on hold. Blood continues infusing. IV team placing midline at this time.
All other assessments unchanged.
[2024-05-23 17:42] LABS: Glucose - Point of Care 227 mg/dl (70-99)
[2024-05-23 18:11] LABS: Glucose - Point of Care 211 mg/dl (70-99)
[2024-05-23 18:22] VITALS: BP 110/49
[2024-05-23 19:01] LABS: Glucose - Point of Care 173 mg/dl (70-99)
[2024-05-23 20:09] LABS: Glucose - Point of Care 194 mg/dl (70-99)
--- NOTE | 2024-05-23 20:15 | PTCARENOTE ---
Received patient AAOx3, following commands, family at bedside. APACHE bilaterally. Normal sinus, 80s-90s. BP stable, 100s-110s/50s-60s. Normothermic, palpable pedal pulses bilaterally. +1 generalized anasarca. SCDs and joseph stockings on. On 2 liters
nasal cannula, saturating 95%. Lung sounds clear and diminished throughout. Left nare NG tube putting out dark green drainage, set to low intermittent suction. Hypoactive bowel sounds, abdomen obese, round, tender to palpation. Ontiveros putting out
greenish/blue urine. Colostomy red, budded, scant serosanguineous drainage. Midline aquacell on abdomen with old drainage. Right JODIE drain putting our serosanguineous drainage. Left thigh skin tear. Insulin and NSS gtt ongoing per order and protocol.
Call mejia within reach, able to make needs known.
[2024-05-23 21:09] LABS: Glucose - Point of Care 107 mg/dl (70-99)
[2024-05-23 21:53] LABS: Hematocrit 23.7 % (37.0-47.0); Hemoglobin 8.6 g/dL (12.0-16.0)
[2024-05-23 22:05] LABS: Blood Urea Nitrogen 38 mg/dl (7-17); Calcium 7.5 mg/dl (8.4-10.2); Carbon Dioxide 25 mmol/L (22-30); Chloride 101 mmol/L (98-107); Estimated Creatinine Clearance 46 ml/min; Glucose 74 mg/dl (70-99); Sodium 133 mmol/L (135-145); eGFR 36.69
[2024-05-23 22:07] LABS: Glucose - Point of Care 95 mg/dl (70-99)
[2024-05-23] MEDS: NSS 250 IV (23:46)
[2024-05-24] VITALS (13 sets, daily range): BP systolic 152–180; BP diastolic 69–82; PULSE 111–147; O2SAT 97; BMI 39.2
--- NOTE | 2024-05-24 00:10 | PTCARENOTE ---
Patient remains on insulin and NSS gtt. Pain medication give, BP soft, DEEP FAT COOK FRY notified. 250 ml bolus given. Family remains at bedside. Toothbrush/toothpaste given. Call mejia within reach.
[2024-05-24] MEDS: HEPARIN 5000 UNITS SC ×4 (00:17→23:25)
[2024-05-24 00:24] LABS: Glucose - Point of Care 88 mg/dl (70-99)
[2024-05-24 02:08] LABS: Glucose - Point of Care 186 mg/dl (70-99)
[2024-05-24 03:20] LABS: Glucose - Point of Care 82 mg/dl (70-99)
[2024-05-24] MEDS: ZOSYN 50 IV ×4 (03:26→21:55)
[2024-05-24] MEDS: DILAUDID 0.5 MG IV ×7 (03:27→22:40)
--- NOTE | 2024-05-24 04:47 | PTCARENOTE ---
Patient assessment unchanged from previous, more pain meds given, refer to mar. Labs sent.
[2024-05-24 05:44] LABS: ALT (SGPT) 97 U/L (0-35); AST (SGOT) 107 U/L (14-36); Albumin 2.2 g/dl (3.5-5.0); Alkaline Phosphatase 42 U/L (38-126); Blood Urea Nitrogen 39 mg/dl (7-17); Calcium 7.4 mg/dl (8.4-10.2); Carbon Dioxide 22 mmol/L (22-30); Chloride 103 mmol/L (98-107); Estimated Creatinine Clearance 46 ml/min; Glucose 77 mg/dl (70-99); Potassium 4.5 mmol/L (3.5-5.1); Sodium 135 mmol/L (135-145); Total Bilirubin 0.7 mg/dl (0.2-1.3); Total Protein 4.4 g/dl (6.3-8.2); eGFR 36.69
[2024-05-24 05:49] LABS: Hematocrit 25.1 % (37.0-47.0); Hemoglobin 8.9 g/dL (12.0-16.0); Mean Corp Hgb Conc. 35.5 g/dL (33.0-37.0); Mean Corpuscular Hgb 30.6 pg (27.0-31.0); Mean Corpuscular Volume 86.3 fL (81.0-99.0); Mean Platelet Volume 11.5 fL (7.4-10.4); Platelet Count 169 10^3/uL (130-400); Red Blood Cell Count 2.91 10^6/uL (4.20-5.40); Red Cell Dist. Width 14.5 % (11.5-14.5); White Blood Cell Count 16.9 10^3/uL (4.8-10.8)
[2024-05-24 06:14] LABS: Glucose - Point of Care 88 mg/dl (70-99)
[2024-05-24 07:08] LABS: Glucose - Point of Care 111 mg/dl (70-99)
--- NOTE | 2024-05-24 07:39 | PN.DE.MGMTRT ---
Insulin Management
- -
05/24/2024 Diabetes Management F/U:
Patient admitted 05/19 with acute sigmoid diverticulitis with perforation. PMH endometrial CA, breast CA, HTN, HCL, steroid induced diabetes. Prior to admission was taking 19 units NovoLog AC with Mounjaro 2.[address] Cordova
and Omer Ndiaye PA-c at [facility]. Recently was started on Mounjaro and Jardiance and had frequent low blood sugars. She states she could not get an appointment with Omer so she called her primary doctor who told her to stop Lantus and
Jardiance due to hypoglycemia. A1C is 7.4, Cr 1.5, eGFR 39.65.
Patient is awake and alert, extubated 05/23, able to discuss diabetes management.
POD# 2. Glycemic protocol was initiated due to persistent Hyperglycemia.
Glucose range 82 to 186 requiring 0.2 to 14 units of insulin/hr. Pt remains NPO
Will cont current regimen for now. Will follow for readiness to transition from IV insulin to Lantus, NovoLog, Jardiance.
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
Pt will need to resume Lantus upon transition to SQ insulin- plan was discussed with pt and son and both were agreeable
Diabetes History
- -
Type of Diabetes: 2 requiring insulin
Pre-Admission Diabetes Regimen
05/23/24 05/23/24 05/24/24
14:19 21:43 04:51
Creatinine 1.8 H 1.6 H 1.6 H
Lab Results
Hemoglobin A1c 7.4 % (4.0-5.6) H 05/20/24 05:23
Insulin Pump Settings
IP Diabetes Regimen
05/23/24 05/23/24 05/23/24
12:05 12:56 13:58
Glucose
POC Glucose 311 H 285 H 286 H
05/23/24 05/23/24 05/23/24
14:19 14:52 16:09
Glucose 248 H
POC Glucose 254 H 223 H
05/23/24 05/23/24 05/23/24
17:24 18:00 18:50
Glucose
POC Glucose 227 H 211 H 173 H
05/23/24 05/23/24 05/23/24
19:58 20:57 21:43
Glucose 74
POC Glucose 194 H 107 H
05/23/24 05/24/24 05/24/24
21:56 00:12 01:57
Glucose
POC Glucose 95 88 186 H
05/24/24 05/24/24 05/24/24
03:09 04:51 05:58
Glucose 77
POC Glucose 82 88
05/24/24
06:57
Glucose
POC Glucose 111 H
Patient Education
[2024-05-24] MEDS: NSS 1000 IV ×2 (08:03→17:10)
[2024-05-24] MEDS: LOW STRENGTH ASPIRIN 81 MG PO (08:09)
[2024-05-24 08:13] LABS: Glucose - Point of Care 89 mg/dl (70-99)
[2024-05-24] MEDS: NSS (PRESERVATIVE FREE) 10 ML IV (08:15)
[2024-05-24] MEDS: PROTONIX IV 40 MG IV (08:16)
[2024-05-24 09:18] LABS: Glucose - Point of Care 75 mg/dl (70-99)
--- NOTE | 2024-05-24 10:13 | W.PN.CRS1 ---
Today's Communication / Plan
-
Continue NGT
Wound care
Out of bed
Continue drain
Assessment/Plan
-
POD#2 1) exploratory laparotomy 2) Caridad's resection (sigmoidectomy with colostomy) due to sigmoid diverticulitis
-Trend WBC. WBC this morning is 16.9 from 22.8, expected postoperatively.
-Continue IV antibiotics
-OR pathology pending
-Okay for out of bed once extubated, PT
-JODIE drain in place, will be removed prior to discharge
-Continue Ontiveros for I's and O's
-Wound RN for stoma care
-Continue NG tube, output 50 mL
-Discussed surgery with son/daughter who was present at bedside this morning
-I have asked hay buckler to see to change midline/stoma
-Creatinine 1.6 from 1.6, appreciate talent acquisition lead managing
Subjective Data
Procedure
05/22/2024- 1) exploratory laparotomy 2) Caridad's resection (sigmoidectomy with rectopexy)
Subjective Data
Date of Service: May 24, 2024
Patient states she has some abdominal pain, but it is mild. She has no nausea or vomiting.
Objective Data
-
Vital Signs
Temp Pulse Resp BP Pulse Ox
99.5 F 96 11 169/72 96
05/24/24 07:30 05/24/24 09:00 05/24/24 09:00 05/24/24 08:00 05/24/24 09:56
Intake & Output
05/23/24 05/24/24 05/25/24
06:59 06:59 06:59
Intake Total 3949.1 / 4115.9 4049.08 / 4174.08 365.7 / 365.7
Output Total 1500.2 / 1500.2 2200 / 2200 655 / 655
Balance 2448.9 / 2615.7 1849.08 / 1974.08 -289.3 / -289.3
Intake:
Oral fluids 480 / 480
IV fluids (Total) 1629.1 / 1795.9 3219.08 / 3344.08 365.7 / 365.7
Nss 1,000 ml @ 120 mls/hr IV . 2060 / 2180 360 / 360
Q8H20M ANA Rx#:[id number]
Sterile Water For Injection 1000 / 1100 900 / 900
1000 ml 1,000 ml @ 100 mls/hr
IV .[id number] ANA with Sodium
Bicarbonate 150 Meq Rx#:
[id number]
fent 75.0 / 87.5 55.0 / 55.0
insulin 116.78 / 121.78 5.7 / 5.7
levo 360.0 / 390.0 45 / 45
prop 194.1 / 218.4 42.3 / 42.3
IV piggybacks 1500 / 1500 550 / 550
Amount instilled into GI Tube ( 90 / 90 30 /
Total)
[place] Sump
Blood Product Amount Infused ( 250 / 250 250 / 250
mL)
Packed Rbc Leukoreduced Unit 250 / 250
[id number]
Packed Rbc Leukoreduced Unit 250 / 250
[id number]
Output:
Drain Output (Total) 400 / 400 345 / 345 5 / 5
Right Abdomen 400 / 400 345 / 345 5 / 5
Gastrointestinal tube output ( 50 / 50 900 / 900 450 / 450
Total)
[place] Sump 50 / 50 900 / 900 450 / 450
Urine, Ontiveros 350.2 / 350.2 955 / 955 200 / 200
Urine, Voided 700 / 700
Lab Results
05/24/24 04:51
05/24/24 04:51
Physical Exam
-
General: No Acute Distress and AOx3
Abdomen: Soft, Non Distended, Tender (mild around incisions) and Other (colostomy warm, light pink, flush with the skin)
Wound: Dressing in Place (old blood underneath)
[2024-05-24 10:16] LABS: Glucose - Point of Care 83 mg/dl (70-99)
--- NOTE | 2024-05-24 10:17 | PN.CDI ---
CDI
- -
CDI:
Physician Documentation Request
Admit Date: 05/20/24 01:02
Dear Doctor Wilma,
Please review the following and provide your response in the progress notes.
Clinical Indicators:
- 05/23 PN 'Shock, hypovolemic'
- 05/23 Paralegal Internship 'Septic shock'
- 05/20-05/24 14L IVF given
Please clarify which of the following is the most likely type of shock:
Septic shock
Hypovolemic shock
Multifactorial shock - septic and hypovolemic
Other (please specify)
Use of terms such as suspected, likely, concern for, or probable (associated with a specific diagnosis that is being evaluated, monitored, or treated as if it exists) are acceptable and can be coded in the inpatient setting, when documented at the
time of discharge.
Thank you,
Shaniqua Traore RN
CDI Specialist
Please use your independent medical judgment in providing your response.
--- NOTE | 2024-05-24 11:28 | WOUNDNOTE ---
[facility] RN note: Patient s/p ostomy surgery 05/22, exploratory laparotomy 2) Caridad's resection (sigmoidectomy with colostomy) due to sigmoid diverticulitis
PMH: Hypertension, DM-II,Obesity,Coarctation of the Aorta,Breast Cancer s/p Mastectomy and Chemo,Uterine Cancer s/p Hysterectomy, Diverticular Disease
Ostomy location and type: Caridad's resection with colostomy. Midline dressing removed per order. Proximal incision with clotting and adherent midline dressing. Per juli Valero to remove clotting. Midline gently cleaned and most of clotting
was able to be removed. Stoma is light pink, warm and retracted. Scant amount of drainage from stoma. Peristomal skin intact. Picture sent to colorectal team. Patient tolerated well. All questions answered. Reviewed pouch emptying with patient. She
is unable to participate at this time due to hand swelling.
Instructed patient on ostomy pouch emptying and changing appliance using Rosebud wafer # [id number]
Rosebud pouch # [id number]. Staff may try convex barrier #[id number] if leaking is noted. Will continue to follow with up with patient for ostomy care and teaching.
Ostomy supplies ordered from [facility] and at bedside.
Note to case management: VN services vs SNF.
Nursing care plan updated, will follow as needed.
[2024-05-24 11:37] LABS: Glucose - Point of Care 99 mg/dl (70-99)
[2024-05-24 12:17] LABS: Glucose - Point of Care 82 mg/dl (70-99)
--- NOTE | 2024-05-24 12:26 | W.PN.INTV ---
Today's Communication / Plan
Recommendations
Continue antibiotics
Follow cultures
Gentle hydration
Follow renal function
Physical therapy/Occupational Therapy
Continue insulin drip
Diet per surgery
Maintain hemodynamic monitoring
Assessment
-
Acute abdomen: Acute diverticulitis with bowel perforation
CT abdomen pelvis reviewed: Perforated diverticula with intraperitoneal air.
Status post exploratory laparotomy 05/22/2024: Barbour's resection.
Postoperative mechanical ventilation
Extubated 05/23/2024
Septic shock
Acute kidney injury metabolic acidosis
Anion gap metabolic acidosis
Hyperglycemia postoperative anemia due to blood loss/acute
-
Conditions present prior admission:
Type 2 diabetes
Hypertension
Obesity
History of coarctation of the aorta
Breast cancer status postmastectomy and chemotherapy
Uterine cancer status post hysterectomy
Diverticular disease
Status post breast reconstruction
History of
Aortic stent placement
Cataracts
Assessment and plan:
Extubated 05/23/2024
On low rate supplemental oxygen.
-
Status post exploratory laparotomy for acute diverticulitis with perforation
Surgical correspondence/operative reports reviewed
Ostomy care
Follow drain output
-
N.p.o.
NG tube in place
Wound culture with gram-negative bacilli from operating room
Continue broad-spectrum antibiotics with pip-tazo for now.
-
Extubated 05/23/2024
On low rate supplemental oxygen
Incentive spirometry encouraged
Wean off FiO2 as able
Minimize sedation if able.
-
Septic shock/metabolic acidosis-resolved.
Vasopressors discontinued
Follow hemodynamics
-
Acute kidney injury: Likely hypotensive insult.
Kidney function is stable
Received adequate fluid resuscitation
Advance diet, liquids. Encourage oral hydration.
Decrease IV fluids to 80 cc an hour, normal saline
Discontinue Ontiveros.
-
Analgesia with narcotics. Monitor respiratory status closely.
-
Hyperglycemia: Continue insulin drip.
Defer management to diabetes nurse petitioner in regards to transition to subcu insulin or other regimen
Glycemic protocol.
-
Anemia: S/p transfusion. Good response.
Continue to follow H&H
-
N.p.o. diet per surgery.
-
Physical therapy/Occupational Therapy
Arterial line has been discontinued
-
DVT prophylaxis with SCDs/heparin subcu
-
Will maintain on critical care for 1 additional day. If continues to improve then transition to MedSur tomorrow.
Subjective Dataa
Subjective Data
Date of Service:
Date of Service: May 24, 2024
Chief Complaint: [employer] Follow Up (Respiratory failure/mechanical ventilation management/septic shock)
Subjective:
Extubated 05/23/2024. Doing well.
On low rate supplemental oxygen
Denies shortness of breath.
Denies coughing or phlegm production.
Pain so far relatively controlled on medications.
Review of Systems
Cardiopulmonary: Dyspnea (None at rest)
GI: Abdominal Pain, Nausea (n) and Vomiting (n)
Neuro: Headache (n)
Objective Data
Data Reviewed
Vital Signs / I&O / Oxygen:
Vital Signs
Temp Pulse Resp BP Pulse Ox
99.6 F 95 7 169/72 97
05/24/24 11:53 05/24/24 10:00 05/24/24 10:00 05/24/24 08:00 05/24/24 10:00
Intake and Output
05/23/24 05/24/24 05/25/24
06:59 06:59 06:59
Intake Total 3949.1 / 4115.9 4049.08 / 4174.08 647.4 / 647.4
Output Total 1500.2 / 1500.2 2200 / 2200 735 / 735
Balance 2448.9 / 2615.7 1849.08 / 1974.08 -87.6 / -87.6
SaO2 [A/C] 97
SaO2 97
Nasal Cannula flow liters per 2
minute
Physical Exam
General: Comfortable
HEENT: Normocephalic
Cardiovascular: S1-S2 and Regular Rhythm
Respiratory: Clear and Non-Labored Respirations
GI: Soft and Distended (colostomy in place, )
Neurology: Awake, Alert, Oriented and No Motor Deficits
Labs/Micro/Reports
Lab Data
05/24/24 04:51
05/24/24 04:51
Microbiology
05/22/24 08:00 Abdomen Anaerobic Culture - Preliminary
Culture pending. Anaerobic cultures are examined after 3
days incubation. Additional information to follow.
05/22/24 08:00 Abdomen Wound Culture - Preliminary
Gram negative bacilli
05/22/24 08:00 Abdomen Gram Stain - Preliminary
05/21/24 17:56 Blood/Venous Blood Culture - Preliminary
No Growth in 48 hours- Final report to follow
05/19/24 20:48 Blood/Venous Blood Culture - Preliminary
Bacteroides distasonis
05/19/24 20:48 Blood/Venous Gram Stain - Preliminary
--- NOTE | 2024-05-24 12:37 | PTCARENOTE ---
Complete assessment done and documented at beginning of shift. Pt seen by Dr Ayala and Dr Farnsworth. Pt c/o pain with movement and turning, PRN dilaudid given as ordered. Pt said that it does help. Pt's son Anshul, and daughter Sharmin stayed over night,
sleeping in room. Both were able to speak to Dr Farnsworth when he came to seep. HR SR as per monitor. O2 sat=96% on 2l nc, lobes diminished at bases bilat. Pt's NS iv rate decreased to 80ml/hr, and pt to remain on insulin drip/following protocol today.
Accu checks done q 1 hr. Pt with Dom alexandra, which will be d/c'd today. SCDs are on lower exts bilat, +1 general edema noted. Ontiveros cath was d/c'd, pt's son and pt asked to have purewick applied. Tamia care done and purwick applied. Wound care in to
see pt and abd drsgs changed. Pt now resting comfortably, turned q 2hrs. Call mejia at side.
[2024-05-24 13:15] LABS: Glucose - Point of Care 80 mg/dl (70-99)
--- NOTE | 2024-05-24 13:56 | W.PN.HOSP.TC ---
Addendum entered and electronically signed by Azar Dillon MD 05/24/24 14:49:
Multifactorial shock - septic and hypovolemic - resolved
Original Note:
Today's Communication/Plan
-
npo
iv abx
f/u cultures
ivf prn
Assessment / Plan
Assessment / Plan
General: Well Developed, Well Nourished and No Apparent Distress
GI: Soft and Tender (Diffuse moderate pain throughout, worse in the lower quadrants bilaterally)
Skin: Warm and Dry
Neuro: AO x 3
A/P: Patient is a 58y F with PMH significant for HTN, DM-II and diverticular disease who presents to ED complaining of abdominal pain.
Acute Sigmoid Diverticulitis with Perforation; await wound cultures
Sepsis
Bacteremia - bacteroides Distasonis
#Exploratory laparotomy, Barbour's resection on 05/22/2024
- CT scan done in the ED shows acute sigmoid diverticulitis with areas of air tracking throughout the abdomen concerning for teodoro perforation.
� N.p.o.
� Pain control
�Continue IV antibiotics
-OR pathology pending
-JODIE drain in place
-Cont NG tube
�No diarrhea, no need for C. difficile at this time
� HSQ for DVT prophylaxis
� Wound care for ostomy marking
�Repeat blood cultures, source most likely GI
#Shock, hypovolemic
-post procedure -transient - most likely exacerbated by mechanical ventilation/sedation
-resolved, now off pressors
#Hyponatremia
-ctm
#thrombocytopenia
-most likely sepsis
-ctm with resuscitation
TIFFANI v CKD
Anion gap metabolic acidosis
A septic ATN versus prerenal etiology with acute infection
- SCr has been 1.1 since initial visit here on 04/29.
- Prior to that it had been normal at 0.7.
- IVF
-ctm
#Transaminitis
� Most likely secondary to transient hypotension/shock
Continue to monitor
Anion Gap Metabolic Acidosis
- most likely related to tiffani
-improving
#Hyponatremia
-mild
-cont to monitor
Benign Hypertension
- Stable.
resume antihypertensives, hold acei due to possiblity of TIFFANI
DM-II
- Stable. Hold PO medications.
-Insulin ggt
- Follow glucose and cover with SSI as needed.
- Update A1C - 7.4
Coarctation of the Aorta
- s/p prior aortic stenting.
- Continue ASA.
DVT Prophylaxis: HSQ
Code Status: Full
Total time spent on today's encounter was 53 minutes which included time spent in counseling the patient/family regarding diagnosis and treatment plan as listed above, goals of care, and symptom management. Case was discussed with nursing staff,
specialists, and care coordinators/case management. All labs and imaging personally reviewed by me. Remainder the time spent in detailed review of previous records, lab data, imaging, and other medical provider documentation.
Anticipated Discharge: > 48 hours
Subjective/Interval History
-
Date of Service: May 24, 2024
no acute events, progressing well
Objective Data
-
Labs:
Laboratory Results
05/24/24
04:51
WBC 16.9 H
Hgb 8.9 L
Hct 25.1 L
Plt Count 169 D
Sodium 135
Potassium 4.5
Chloride 103
Carbon Dioxide 22
BUN 39 H
Creatinine 1.6 H
Glucose 77
Calcium 7.4 L
Total Bilirubin 0.7
AST 107 H
ALT 97 H
Alkaline Phosphatase 42
Vital Signs:
Vital Signs
Temp Pulse Resp BP Pulse Ox
99.6 F 98 15 180/79 96
05/24/24 11:53 05/24/24 12:00 05/24/24 12:00 05/24/24 12:00 05/24/24 12:00
I&O
05/23/24 05/24/24 05/25/24
06:59 06:59 06:59
Intake Total 3949.1 / 4115.9 4049.08 / 4174.08 647.4 / 647.4
Output Total 1500.2 / 1500.2 2200 / 2200 735 / 735
Balance 2448.9 / 2615.7 1849.08 / 1974.08 -87.6 / -87.6
Review of Systems
-
History Source: Patient
All other systems: Not reviewed unless documented
Data Reviewed
-
Diagnostic Radiology: Image personally visualized and interpreted and Report Reviewed by me
CT Scan: Image personally visualized and interpreted and Report Reviewed by me
Labs: Labs Reviewed by me
[2024-05-24 14:09] LABS: Glucose - Point of Care 83 mg/dl (70-99)
[2024-05-24 15:13] LABS: Glucose - Point of Care 81 mg/dl (70-99)
[2024-05-24 16:14] LABS: Glucose - Point of Care 91 mg/dl (70-99)
--- NOTE | 2024-05-24 16:32 | PTCARENOTE ---
Pt OOB to chair at 1600 with 2 Physical therapists. Pt given dilaudid 0.5 iv prior to OOB to chair. Pt's son and daughter in room.
--- NOTE | 2024-05-24 16:46 | PTCARENOTE ---
Pt could stay in chair, feeling weak. Pt back in bed. Will try OOB to chair again tomorrow.
[2024-05-24 17:17] LABS: Glucose - Point of Care 82 mg/dl (70-99)
[2024-05-24] MEDS: ANESTHETIC LOZENGE 1 LOZENGE PO (17:26)
--- NOTE | 2024-05-24 17:40 | CM ---
patient sp perforated diverticulum,still with ngt,npo,iv abx,zeke drain,repeat bc,on 2 liters nc o2,seen by therapy who recommended snf.plan snf when stable for dc.
[2024-05-24 18:24] LABS: Glucose - Point of Care 94 mg/dl (70-99)
--- NOTE | 2024-05-24 18:35 | PTCARENOTE ---
Cepacol throat lozengers ordered and given for throat soreness. Dilaudid 0.5 was given for abdominal pain at pt's request. NGT drained approx 500 ml of dk green bile, and JODIE emptied for 60ml of serous sang drainage. Pt voided 300 ml post aguilar cath
removal. Pt now resting comfortably.
[2024-05-24 19:19] LABS: Glucose - Point of Care 92 mg/dl (70-99)
[2024-05-24] MEDS: LOPRESSOR 5 MG IV (20:11)
[2024-05-24] MEDS: LOPRESSOR TUBE (20:16)
[2024-05-24 20:17] LABS: Glucose - Point of Care 79 mg/dl (70-99)
--- NOTE | 2024-05-24 20:23 | PTCARENOTE ---
Assumed care of pt. approx 1900.
Offers complaints of moderate to severe abd. pain, PRN given, and sore throat.
Hypertensive, tachycardia low teens, PRN lopressor ordered.
Remains on insulin gtt, empirical ABX, maintenance fluids.
Will promote getting OOB in AM, Pulmonary hygiene, minimizing opioids as tolerated.
[2024-05-24] MEDS: LOPRESSOR 2.5 MG IV (21:11)
[2024-05-24 21:24] LABS: Glucose - Point of Care 78 mg/dl (70-99)
[2024-05-24] MEDS: NOVOLIN R INSULIN INFUSION 100 IV (22:03)
[2024-05-24 22:08] LABS: Glucose - Point of Care 84 mg/dl (70-99)
[2024-05-24 23:26] LABS: Glucose - Point of Care 93 mg/dl (70-99)
[2024-05-25] VITALS (34 sets, daily range): BP systolic 144–197; BP diastolic 64–105; BMI 38.9
--- NOTE | 2024-05-25 00:18 | PTCARENOTE ---
Assumed care of pt at 2300. Assessment completed--pt is A/O x4, able to make needs known, answers questions appropriately. Reports abd pain (surgical site) but that previous pain med that was given at 2240 helped the pain. SR 90s on monitor. +1
generalized edema. Lungs clear but diminished, currently on 2LNC with SpO2 97%. Midline abd incision with dressing intact, some shadowing noted. JODIE drain with sanguinous drainage, emptied for 40mL. LLQ ostomy with scant serous drainage in bag, stoma
is pink and flush with pt's skin. NGT to LIS with dark brown/greenish drainage. Purewick in place, urine is currently green. Insulin gtt infusing per Critical Care Glycemic Protocol. Pt repositioned for comfort. Call mejia within reach. Pt's son at
bedside, staying the night.
[2024-05-25 00:26] LABS: Glucose - Point of Care 86 mg/dl (70-99)
[2024-05-25] MEDS: DILAUDID 0.5 MG IV ×9 (00:40→22:57)
[2024-05-25 02:29] LABS: Glucose - Point of Care 89 mg/dl (70-99)
[2024-05-25] MEDS: ZOSYN 50 IV ×4 (03:16→22:31)
[2024-05-25 04:15] LABS: Glucose - Point of Care 82 mg/dl (70-99)
[2024-05-25] MEDS: LOPRESSOR 5 MG IV ×3 (04:33→15:37)
[2024-05-25] MEDS: NSS 1000 IV ×2 (05:39→17:59)
--- NOTE | 2024-05-25 05:43 | PTCARENOTE ---
0400 assessment unchanged. Pt medicated for pain throughout the shift with IV Dilaudid, see EMAR. SR 90s on monitor. Pt hypertensive, requiring a dose of PRN IV Lopressor, see EMAR.
[2024-05-25 06:19] LABS: Hematocrit 33.3 % (37.0-47.0); Hemoglobin 11.3 g/dL (12.0-16.0); Mean Corp Hgb Conc. 33.9 g/dL (33.0-37.0); Mean Corpuscular Volume 88.3 fL (81.0-99.0); Platelet Count 201 10^3/uL (130-400); Red Blood Cell Count 3.77 10^6/uL (4.20-5.40); Red Cell Dist. Width 15.1 % (11.5-14.5); White Blood Cell Count 14.8 10^3/uL (4.8-10.8)
[2024-05-25 06:26] LABS: ALT (SGPT) 87 U/L (0-35); AST (SGOT) 73 U/L (14-36); Albumin 2.6 g/dl (3.5-5.0); Alkaline Phosphatase 73 U/L (38-126); Blood Urea Nitrogen 33 mg/dl (7-17); Calcium 7.9 mg/dl (8.4-10.2); Carbon Dioxide 25 mmol/L (22-30); Chloride 104 mmol/L (98-107); Estimated Creatinine Clearance 58 ml/min; Glucose 84 mg/dl (70-99); Potassium 4.5 mmol/L (3.5-5.1); Sodium 139 mmol/L (135-145); Total Bilirubin 0.9 mg/dl (0.2-1.3); Total Protein 5.1 g/dl (6.3-8.2); eGFR 47.08
[2024-05-25 06:30] LABS: Triglycerides 471 mg/dl (10-149)
[2024-05-25 06:45] LABS: Glucose - Point of Care 87 mg/dl (70-99)
[2024-05-25] MEDS: NSS (PRESERVATIVE FREE) 10 ML IV (07:38)
[2024-05-25] MEDS: HEPARIN 5000 UNITS SC ×2 (07:39→15:36)
[2024-05-25] MEDS: LOW STRENGTH ASPIRIN 81 MG PO (07:39)
[2024-05-25] MEDS: PROTONIX IV 40 MG IV (07:39)
[2024-05-25] MEDS: LOPRESSOR 25 MG TUBE ×2 (07:39→19:46)
[2024-05-25] MEDS: ANESTHETIC LOZENGE 1 LOZENGE PO (08:40)
[2024-05-25 08:45] LABS: Glucose - Point of Care 86 mg/dl (70-99)
--- NOTE | 2024-05-25 09:56 | W.PN.INTV ---
Today's Communication / Plan
Recommendations
Continue IV fluids for maintenance
Patient n.p.o. NG tube in place
Analgesia
Current: Insulin drip, transition to subcu insulin Lantus 12 units.
Increase activity as able
Follow H&H
Hopefully transition to MedSurg.
Assessment
-
Acute abdomen: Acute diverticulitis with bowel perforation
CT abdomen pelvis reviewed: Perforated diverticula with intraperitoneal air.
Status post exploratory laparotomy 05/22/2024: Barbour's resection.
Postoperative mechanical ventilation
Extubated 05/23/2024
Septic shock
Acute kidney injury metabolic acidosis
Anion gap metabolic acidosis
Hyperglycemia postoperative anemia due to blood loss/acute
-
Conditions present prior admission:
Type 2 diabetes
Hypertension
Obesity
History of coarctation of the aorta
Breast cancer status postmastectomy and chemotherapy
Uterine cancer status post hysterectomy
Diverticular disease
Status post breast reconstruction
History of
Aortic stent placement
Cataracts
Assessment and plan:
Extubated 05/23/2024
On low rate supplemental oxygen.
Stable hemodynamically overnight
-
Status post exploratory laparotomy for acute diverticulitis with perforation
Surgical correspondence/operative reports reviewed
Ostomy care
Follow drain output
-
N.p.o. per surgery.
NG tube in [id number]
Wound culture with gram-negative bacilli from operating room
Continue broad-spectrum antibiotics with pip-tazo for now.
-
Extubated 05/23/2024
On low rate supplemental oxygen
Incentive spirometry encouraged
Wean off FiO2 as able
Minimize sedation if able.
-
Septic shock/metabolic acidosis-resolved.
-
Acute kidney injury: Likely hypotensive insult.
Improved
Remains n.p.o.
Continue IV fluids to 80 cc an hour, normal saline
Discontinued Rama 05/25/2024
-
Analgesia with narcotics. Monitor respiratory status closely.
-
Hyperglycemia: Continue insulin drip.
Patient n.p.o.
Will need to be transition to Lantus. Usually on Mounjaro as well as before meals NovoLog.
Currently on 0.3 units/h. Sugars controlled.
Will transition to Lantus 12 units target will be 1 40-1 80. Also insulin sliding scale.
Defer management to diabetes nurse petitioner in regards to transition to subcu insulin or other regimen
Glycemic protocol.
-
Anemia: S/p transfusion. Good response.
Continue to follow H&H-stable today
-
Physical therapy/Occupational Therapy
Arterial line has been discontinued
-
DVT prophylaxis with SCDs/heparin subcu
-
Will transfer to to [facility] once insulin drip is discontinued patient has been transition to subcu Lantus.
-
If transfer out of critical care team will sign off. Please call pulmonary if any respiratory issues arise
Subjective Dataa
Subjective Data
Date of Service:
Date of Service: May 25, 2024
Chief Complaint: Filbert Grower Follow Up (Respiratory failure/mechanical ventilation management/septic shock)
Subjective:
No overnight events
Pain is controlled
Denies shortness of breath
Review of Systems
General: Fever (n)
Cardiopulmonary: Dyspnea (n) and Cough (n)
GI: Abdominal Pain (Mild), Nausea (n) and Vomiting (n)
Objective Data
Data Reviewed
Vital Signs / I&O / Oxygen:
Vital Signs
Temp Pulse Resp BP Pulse Ox
99.2 F 94 8 172/79 97
05/25/24 07:42 05/25/24 07:39 05/25/24 06:00 05/25/24 07:39 05/25/24 08:00
Intake and Output
05/24/24 05/25/24 05/26/24
06:59 06:59 06:59
Intake Total 4049.08 / 4174.08 2272.8 / 2353.1 240.6 / 240.6
Output Total 2200 / 2200 2475 / 2475
Balance 1849.08 / 1974.08 -202.2 / -121.9 240.6 / 240.6
SaO2 [A/C] 97
SaO2 97
Nasal Cannula flow liters per 2
minute
Physical Exam
General: Comfortable
HEENT: Normocephalic
Cardiovascular: S1-S2 and Regular Rhythm
Respiratory: Clear and Non-Labored Respirations
GI: Soft and Distended (colostomy in place, )
Neurology: Awake, Alert, Oriented and No Motor Deficits
Labs/Micro/Reports
Lab Data
05/25/24 05:45
05/25/24 05:45
Microbiology
05/21/24 17:56 Blood/Venous Blood Culture - Preliminary
No Growth in 72 hours- Final report to follow
05/22/24 08:00 Abdomen Anaerobic Culture - Preliminary
Culture pending. Anaerobic cultures are examined after 3
days incubation. Additional information to follow.
05/22/24 08:00 Abdomen Wound Culture - Preliminary
Gram negative bacilli
05/22/24 08:00 Abdomen Gram Stain - Preliminary
05/19/24 20:48 Blood/Venous Blood Culture - Preliminary
Bacteroides distasonis
05/19/24 20:48 Blood/Venous Gram Stain - Preliminary
[2024-05-25] MEDS: LANTUS 0.12 UNITS SC (11:56)
[2024-05-25 12:10] LABS: Glucose - Point of Care 88 mg/dl (70-99)
--- NOTE | 2024-05-25 12:39 | W.PN.HOSP.TC ---
Today's Communication/Plan
-
NGT - defer to surgery upon timing of clamping
Transition to subcu insulin
Continue IV antibiotics, follow-up final cultures
Downgrade to MedSurg
Assessment / Plan
Assessment / Plan
General: Well Developed, Well Nourished and No Apparent Distress
GI: Soft and Tender (Diffuse moderate pain throughout, worse in the lower quadrants bilaterally)
Skin: Warm and Dry
Neuro: AO x 3
A/P: Patient is a 58y F with PMH significant for HTN, DM-II and diverticular disease who presents to ED complaining of abdominal pain.
Acute Sigmoid Diverticulitis with Perforation; await wound cultures
Sepsis
Bacteremia - bacteroides Distasonis
#Exploratory laparotomy, Barbour's resection on 05/22/2024
- CT scan done in the ED shows acute sigmoid diverticulitis with areas of air tracking throughout the abdomen concerning for teodoro perforation.
� N.p.o.
� Pain control
�Continue IV antibiotics
-OR pathology pending
-JODIE drain in place
-Cont NG tube, defer to surgery for clamping trial
�No diarrhea, no need for C. difficile at this time
� HSQ for DVT prophylaxis
� Wound care for ostomy marking
�Repeat blood cultures, NGTD - await final cultures and anticipate ID consult
#Shock, hypovolemic
-post procedure -transient - most likely exacerbated by mechanical ventilation/sedation
-resolved, now off pressors
#Hyponatremia
-ctm
� Improving
#thrombocytopenia
-most likely sepsis�improving
-ctm with resuscitation
TIFFANI v CKD
Anion gap metabolic acidosis
A septic ATN versus prerenal etiology with acute infection
- SCr has been 1.1 since initial visit here on 04/29.
- Prior to that it had been normal at 0.7.
- IVF
�Improving
#Transaminitis
� Most likely secondary to transient hypotension/shock
Continue to monitor
Anion Gap Metabolic Acidosis
- most likely related to tiffani
-improving
Benign Hypertension
- Stable.
N.p.o.,
DM-II
- Stable. Hold PO medications.
-Insulin ggt�transition to subcutaneous insulin Lantus 12 units today
- Follow glucose and cover with SSI as needed.
- Update A1C - 7.4
Coarctation of the Aorta
- s/p prior aortic stenting.
- Continue ASA.
DVT Prophylaxis: HSQ
Code Status: Full
Anticipated Discharge: > 48 hours
Subjective/Interval History
-
Date of Service: May 25, 2024
Still with significant output from NG tube
Objective Data
-
Labs:
Laboratory Results
05/25/24
05:45
WBC 14.8 H
Hgb 11.3 L D
Hct 33.3 L
Plt Count 201
Sodium 139
Potassium 4.5
Chloride 104
Carbon Dioxide 25
BUN 33 H
Creatinine 1.3 H
Glucose 84
Calcium 7.9 L
Total Bilirubin 0.9
AST 73 H
ALT 87 H
Alkaline Phosphatase 73
Vital Signs:
Vital Signs
Temp Pulse Resp BP Pulse Ox
99.7 F 95 8 157/105 97
05/25/24 11:48 05/25/24 11:02 05/25/24 06:00 05/25/24 11:02 05/25/24 08:00
I&O
05/24/24 05/25/24 05/26/24
06:59 06:59 06:59
Intake Total 4049.08 / 4174.08 2272.8 / 2353.1 240.6 / 240.6
Output Total 2200 / 2200 2475 / 2475
Balance 1849.08 / 1973.08 -202.2 / -121.9 240.6 / 240.6
Review of Systems
-
History Source: Patient
All other systems: Not reviewed unless documented
Data Reviewed
-
Diagnostic Radiology: Image personally visualized and interpreted and Report Reviewed by me
CT Scan: Image personally visualized and interpreted and Report Reviewed by me
Labs: Labs Reviewed by me
--- NOTE | 2024-05-25 13:02 | PTCARENOTE ---
Bloods sugar 88 Lantus 12 units adm at 12:00 At 1300 Insulin qtt infusing at 0.3 ml/unit stopped. Left colostomy no output. Stoma dusky red . c/o of Left side abdominal pain spasm like 8 out 10 pain scale level . Dilaudid 0.5 mg per order adm with
improvement . J/P RT LQ serosanguineous drainage . N-j tube to L-In suction draining dark brown output. Patient denies nausea. BP 182/81 SR 89; Metroprolol 5mg IV adm prn order earlier around 12:00 call mejia within reach
--- NOTE | 2024-05-25 15:06 | W.PN.GS2 ---
Addendum entered and electronically signed by Jg Zapien MD 05/25/24 15:31:
I saw and examined the patient.
The Custom Van Converter's note was reviewed and I agree with the note.
Comment: Stable, No complaints. Hungry. Abd exam approp. Stoma PPV, small humid gas in the pouch. Hb stable after 2uPRBC yesterday. Insulin gtt off. Plan to cont NPO/IVF/NGT. OK for transfer out of ICU.
Original Note:
Today's Communication / Plan
-
NGT/NPO/IVF
Assessment / Plan
-
58 yo female presenting with perforated sigmoid diverticulitis now POD #3 Ex lap with Caridad's
AFVSS
Remains off pressors
Acute anemia improved s/p 2 units pRBC's, no active bleeding noted
Remains off pressors, transitioning off insulin gtt today
Stoma productive of flatus but NGT outputs remain bilious
--Keep NPO with NGT to suction
--IVF as per primary team
--Analgesics/antiemetics prn
--Stoma nurse following
--C/W IV abx
--Continue JODIE
--GI ppx with Protonix IV
--VTE ppx with SCD's
Ok for transfer out of ICU from surgical standpoint
Subjective Data
-
Date of Service: May 25, 2024
Patient seen and examined at bedside with Dr. Zapien. Denies n/v. Intermittent abdominal pain but manageable. Voiding without difficulty.
Objective Data
-
Intake and Output
05/24/24 05/25/24 05/26/24
06:59 06:59 06:59
Intake Total 4049.08 / 4174.08 2272.8 / 2353.1 240.6 / 240.6
Output Total 2200 / 2200 2475 / 2475
Balance 1849.08 / 1974.08 -202.2 / -121.9 240.6 / 240.6
Intake:
Oral fluids 0 / 0
IV fluids (Total) 3219.08 / 3344.08 2052.8 / 2133.1 240.6 / 240.6
Nss 1,000 ml @ 80 mls/hr IV . 2059 / 0 2039 / 0 240 / 240
[id number] ANA Rx#:[id number]
Sterile Water For Injection 900 / 900
1000 ml 1,000 ml @ 100 mls/hr
IV .[id number] ANA with Sodium
Bicarbonate 150 Meq Rx#:
[id number]
fent 55.0 / 55.0
insulin 116.78 / 121.78 12.8 / 13.1 0.6 / 0.6
levo 45 / 45
prop 42.3 / 42.3
IV piggybacks 550 / 550 150 / 150
Amount instilled into GI Tube ( 30 / 30 70 / 70
Total)
[place] Sump 30 / 30 70 / 70
Blood Product Amount Infused ( 250 / 250
mL)
Packed Rbc Leukoreduced Unit 250 / 250
[id number]
Output:
Drain Output (Total) 345 / 345 145 / 145
Right Abdomen 345 / 345 145 / 145
Gastrointestinal tube output ( 900 / 900 1250 / 1250
Total)
[place] Sump 900 / 900 1250 / 1250
Urine, Ontiveros 955 / 955 280 / 280
Urine, Voided 800 / 800
Other:
Number of approximated SMALL 1
amounts of urine
Vital Signs
Temp Pulse Resp BP Pulse Ox
99.7 F 95 8 157/105 97
05/25/24 11:48 05/25/24 11:02 05/25/24 06:00 05/25/24 11:02 05/25/24 08:00
Lab Results
05/25/24 05:45
05/25/24 05:45
Calcium 7.9 mg/dl (8.4-10.2) L 05/25/24 05:45
Phosphorus 4.9 mg/dl (2.5-4.5) H 05/23/24 14:19
Magnesium 2.0 mg/dl (1.6-2.3) 05/23/24 14:19
Total Bilirubin 0.9 mg/dl (0.2-1.3) 05/25/24 05:45
AST 73 U/L (14-36) H 05/25/24 05:45
ALT 87 U/L (0-35) H 05/25/24 05:45
Alkaline Phosphatase 73 U/L (38-126) 05/25/24 05:45
Total Protein 5.1 g/dl (6.3-8.2) L 05/25/24 05:45
Albumin 2.6 g/dl (3.5-5.0) L 05/25/24 05:45
Physical Exam
-
NAD
ABD soft, mild distention, obese; stoma warm, light pink, flush with skin with flatus in appliance
JODIE with SSF, NGT with bilious outputs
Midline dressing with shadowing, intact
[2024-05-25 15:51] LABS: Glucose - Point of Care 80 mg/dl (70-99)
[2024-05-25 17:38] LABS: Glucose - Point of Care 84 mg/dl (70-99)
[2024-05-25] MEDS: MYLICON 80 MG PO (19:46)
[2024-05-25] MEDS: TYLENOL 650 MG PO (19:46)
[2024-05-26] VITALS (22 sets, daily range): BP systolic 170–198; BP diastolic 67–104
[2024-05-26] MEDS: APRESOLINE 5 MG IV ×2 (00:06→11:10)
[2024-05-26] MEDS: HEPARIN 5000 UNITS SC ×2 (00:07→07:44)
--- NOTE | 2024-05-26 00:25 | PTCARENOTE ---
Pt refusing repositioning, explained the importance of turning and repositioning. Pt yelling out regarding pain/itching from SCDs and adamant that they be removed 'at least for a little while'. TEDS remain in place, pt does not want them removed
'because it will hurt to put them back on'.
[2024-05-26 00:29] LABS: Glucose - Point of Care 71 mg/dl (70-99)
[2024-05-26] MEDS: DILAUDID 0.5 MG IV ×8 (01:08→22:43)
[2024-05-26] MEDS: LOPRESSOR 5 MG IV ×3 (01:08→17:14)
[2024-05-26] MEDS: TYLENOL 650 MG PO ×3 (02:13→23:57)
[2024-05-26] MEDS: MYLICON 80 MG PO (02:44)
[2024-05-26] MEDS: ZOSYN 50 IV ×4 (05:09→21:02)
[2024-05-26] MEDS: ANESTHETIC LOZENGE 1 LOZENGE PO (05:09)
[2024-05-26 06:02] LABS: Hematocrit 27.4 % (37.0-47.0); Hemoglobin 9.2 g/dL (12.0-16.0); Mean Corp Hgb Conc. 33.6 g/dL (33.0-37.0); Mean Corpuscular Hgb 30.3 pg (27.0-31.0); Mean Corpuscular Volume 90.1 fL (81.0-99.0); Mean Platelet Volume 10.9 fL (7.4-10.4); Platelet Count 222 10^3/uL (130-400); Red Blood Cell Count 3.04 10^6/uL (4.20-5.40); Red Cell Dist. Width 15.2 % (11.5-14.5); White Blood Cell Count 15.6 10^3/uL (4.8-10.8)
--- NOTE | 2024-05-26 06:12 | PTCARENOTE ---
Pt educated regarding importance of turning, repositioning, offloading. Pt refused to have purewick changed because 'it will hurt to move at all'. Pt refused multiple times to have SCDs placed back on. Pt began yelling out in pain each time the
topic of repositioning was addressed.
[2024-05-26 06:29] LABS: ALT (SGPT) 54 U/L (0-35); AST (SGOT) 43 U/L (14-36); Albumin 2.4 g/dl (3.5-5.0); Alkaline Phosphatase 75 U/L (38-126); Blood Urea Nitrogen 24 mg/dl (7-17); Calcium 7.8 mg/dl (8.4-10.2); Carbon Dioxide 19 mmol/L (22-30); Chloride 107 mmol/L (98-107); Estimated Creatinine Clearance 83 ml/min; Glucose 79 mg/dl (70-99); Magnesium 2.1 mg/dl (1.6-2.3); Potassium 4.3 mmol/L (3.5-5.1); Sodium 139 mmol/L (135-145); Total Bilirubin 0.9 mg/dl (0.2-1.3); Total Protein 4.6 g/dl (6.3-8.2); eGFR > 60.00
[2024-05-26] MEDS: NSS 1000 IV ×2 (07:21→20:27)
[2024-05-26] MEDS: NORVASC 10 MG TUBE (07:43)
[2024-05-26] MEDS: NSS (PRESERVATIVE FREE) 10 ML IV (07:43)
[2024-05-26 07:44] LABS: Glucose - Point of Care 79 mg/dl (70-99)
[2024-05-26] MEDS: PROTONIX IV 40 MG IV (07:44)
[2024-05-26] MEDS: LOPRESSOR 25 MG TUBE ×2 (07:44→20:47)
[2024-05-26] MEDS: LOW STRENGTH ASPIRIN 81 MG PO (07:44)
--- NOTE | 2024-05-26 08:00 | PTCARENOTE ---
Assumed pt's care at 0700; Pt in bed . AAO x3. BP via RT upper arm 197/86; ST 101; RR 14 POX 100% RA. left side upper abdominal pain 8/10 pain scale level . pt describes pain as sharp and constant. Dilaudid 0.5 adm per prn order. Left side colostomy
red-pink color , small amount of serosanguineous drainage. RT J-P serosanguineous drainage. Mid-line abdominal incision dressing dry and intact. Left N-J tube auscultated for proper placement to L-Int suctioning draining dark brown output.
Hypoactive BS. NSS at 80 via Left Upper arm midline . Left hand #20 capped flushed peripheral line. Blood sugar 79.
[2024-05-26] MEDS: LANTUS SC (09:46)
--- NOTE | 2024-05-26 11:52 | W.PN.GS2 ---
Addendum entered and electronically signed by Jg Zapien MD 05/26/24 14:19:
I saw and examined the patient.
The Content Designer's note was reviewed and I agree with the note.
Comment: No complaints. Pain controlled. Hb has drifted down. Drain more bloody today. stoma with small flatus, low volume ngt output. Will try clamp trial and clears if she passes. Hold heparin, cont SCDs for DVT ppx, OK for step down
Original Note:
Today's Communication / Plan
-
Clamping trial of NGT
Assessment / Plan
-
58 yo female presenting with perforated sigmoid diverticulitis now POD #4 Ex lap with Caridad's
AFVSS
Remains off pressors
Acute anemia; h/h improved s/p 2 units pRBC's, but now drifing back down. Low volume darker serosanguineous drainage from JODIE.
Stoma productive of flatus with low outputs from NGT
--Clamping trial of NGT, CLD if does well
--IVF as per primary team
--Analgesics/antiemetics prn
--Stoma nurse following
--C/W IV abx
--Continue JODIE
--GI ppx with Protonix IV
--VTE ppx with SCD's, Hold SQ heparin until h/h stable
Ok for transfer out of ICU from surgical standpoint
Subjective Data
-
Date of Service: May 26, 2024
Patient seen and examined at bedside with Dr. Zapien. Denies n/v. Pain is manageable. Questions addressed
Objective Data
-
Intake and Output
05/25/24 05/26/24 05/27/24
06:59 06:59 06:59
Intake Total 2272.8 / 2353.1 2750.6 / 2830.6 320 / 320
Output Total 2475 / 2475 1890 / 2430 540 / 540
Balance -202.2 / -121.9 860.6 / 400.6 -220 / -220
Intake:
Oral fluids 0 / 0
IV fluids (Total) 2051.8 / 3.1 2200.6 / 2280.6 320 / 320
Nss 1,000 ml @ 80 mls/hr IV . 20390 / 0 320 / 320
[id number] ANA Rx#:[id number]
insulin 12.8 / 13.1 0.6 / 0.6
IV piggybacks 150 / 150 50 / 50
Amount instilled into GI Tube ( 70 / 70 500 / 500
Total)
[place] Sump 70 / 70 500 / 500
Output:
Drain Output (Total) 145 / 145 40 / 80 40 / 40
Right Abdomen 145 / 145 40 / 80 40 / 40
Gastrointestinal tube output ( 1250 / 1250 100 / 100
Total)
[place] Sump 1250 / 1250 100 / 100
Urine, Ontiveros 280 / 280
Urine, Voided 800 / 800 1850 / 2250 400 / 400
Other:
Number of approximated SMALL 1
amounts of urine
How many times incontinent 1
SATURATED amount urine
Vital Signs
Temp Pulse Resp BP Pulse Ox
98.7 F 101 25 186/85 92
05/26/24 11:04 05/26/24 11:10 05/26/24 11:00 05/26/24 11:10 05/26/24 11:00
Lab Results
05/26/24 05:29
05/26/24 05:29
Calcium 7.8 mg/dl (8.4-10.2) L 05/26/24 05:29
Phosphorus 4.9 mg/dl (2.5-4.5) H 05/23/24 14:19
Magnesium 2.1 mg/dl (1.6-2.3) 05/26/24 05:29
Total Bilirubin 0.9 mg/dl (0.2-1.3) 05/26/24 05:
AST 43 U/L (14-36) H 05/26/24 05:
ALT 54 U/L (0-35) H 05/26/24 05:
Alkaline Phosphatase 75 U/L (38-126) 05/26/24 05:
Total Protein 4.6 g/dl (6.3-8.2) L 05/26/24 05:
Albumin 2.4 g/dl (3.5-5.0) L 05/26/24 05:
Physical Exam
-
NAD
ABD soft, ND, obese; stoma warm, light pink, flush with skin with flatus/bowel sweat in appliance
JODIE with darker serosanguineous output, NGT with light bilious outputs
Midline incision with intact merari/vincent with dried blood
[2024-05-26 12:51] LABS: Glucose - Point of Care 89 mg/dl (70-99)
--- NOTE | 2024-05-26 13:14 | W.PN.HOSP.TC ---
Today's Communication/Plan
-
hydralazine iv
hold lantus
ngt clamping
ivf
monitor cbc, hold hsq
iv abx
Assessment / Plan
Assessment / Plan
General: Well Developed, Well Nourished and No Apparent Distress
GI: Soft and Tender (Diffuse moderate pain throughout, worse in the lower quadrants bilaterally)
Skin: Warm and Dry
Neuro: AO x 3
A/P: Patient is a 58y F with PMH significant for HTN, DM-II and diverticular disease who presents to ED complaining of abdominal pain.
Acute Sigmoid Diverticulitis with Perforation; await wound cultures
Sepsis
Bacteremia - bacteroides Distasonis
#Exploratory laparotomy, Barbour's resection on 05/22/2024
- CT scan done in the ED shows acute sigmoid diverticulitis with areas of air tracking throughout the abdomen concerning for teodoro perforation.
� N.p.o.
� Pain control
-�Repeat blood cultures, NGTD; wound cultures with ESBL
�Continue IV antibiotics
-OR pathology pending
-JODIE drain in place, draining dark red serosanguineous fluid
-Cont NG tube, clamp trial today
�No diarrhea, no need for C. difficile at this time
� HSQ for DVT prophylaxis
� Wound care for ostomy marking
#Acute blood loss anemia
� Transfused 2 units this admission
- HgB drifting back down
� JODIE drain with dark red serosanguineous drainage
� Hold off DVT prophylaxis at this time
� Continue monitor CBC
#Shock, hypovolemic
-post procedure -transient - most likely exacerbated by mechanical ventilation/sedation
-resolved, now off pressors
#Hyponatremia
-ctm
� Improving
#thrombocytopenia
-most likely sepsis�improving
-ctm with resuscitation
TIFFANI
Anion gap metabolic acidosis
A septic ATN versus prerenal etiology with acute infection
- SCr has been 1.1 since initial visit here on 04/29.
- Prior to that it had been normal at 0.7.
- IVF
�resolved
#Transaminitis
� Most likely secondary to transient hypotension/shock
Continue to monitor
Benign Hypertension
-now hypertensive
-Start IV Hydralazine IV PRN
N.p.o.,
DM-II
- Stable. Hold PO medications.
-Insulin ggt�transitioned to subcutaneous insulin Lantus 12 units (was low today, therefore held dose) can assess to provide lantus dosing tomorrow if starting diet
- Follow glucose and cover with SSI as needed.
- Update A1C - 7.4
Coarctation of the Aorta
- s/p prior aortic stenting.
- Continue ASA.
DVT Prophylaxis: HSQ
Code Status: Full
Anticipated Discharge: > 48 hours
Subjective/Interval History
-
Date of Service: May 26, 2024
Had some mild nausea after ice chips last night. Otherwise no acute events. Low output from NG tube
Objective Data
-
Labs:
Laboratory Results
05/26/24
05:29
WBC 15.6 H
Hgb 9.2 L
Hct 27.4 L
Plt Count 222
Sodium 139
Potassium 4.3
Chloride 107
Carbon Dioxide 19 L
BUN 24 H
Creatinine 0.9
Glucose 79
Calcium 7.8 L
Total Bilirubin 0.9
AST 43 H
ALT 54 H
Alkaline Phosphatase 75
Vital Signs:
Vital Signs
Temp Pulse Resp BP Pulse Ox
98.7 F 101 25 186/85 92
05/26/24 11:04 05/26/24 11:10 05/26/24 11:00 05/26/24 11:10 09/01/24 11:00
I&O
05/25/24 05/26/24 05/27/24
06:59 06:59 06:59
Intake Total 2272.8 / 2353.1 2750.6 / 2830.6 320 / 320
Output Total 2475 / 2475 1890 / 2430 540 / 540
Balance -202.2 / -121.9 860.6 / 400.6 -220 / -220
Review of Systems
-
History Source: Patient
All other systems: Not reviewed unless documented
Data Reviewed
-
Diagnostic Radiology: Image personally visualized and interpreted and Report Reviewed by me
CT Scan: Image personally visualized and interpreted and Report Reviewed by me
Labs: Labs Reviewed by me
[2024-05-26] MEDS: APRESOLINE 10 MG IV ×2 (13:49→22:53)
--- NOTE | 2024-05-26 13:52 | PTCARENOTE ---
patient in bed BP 185/78 ST 106; RR 17; POX 100% RA. Hydralazine increased to 10mg prn adm. NJ been clamped . Patient denies nausea no vomiting . Plan to check NJ residual at 16:00. Incontinent of urine Purwik replaced . Left colostomy no output.
patient encouraged mobility. Have been refusing am care unit 13:30. Patient and her daughter who is at the bedside explained of been jeffrey risk of developing pressure ulcer if she will not be turned and lack of hygiene care .
--- NOTE | 2024-05-26 16:33 | PTCARENOTE ---
AAO x3 . Nasogastric tube has been clammed since 0900 Since that time patient denies nausea, no vomiting . Residual output 10cc of green bile. Per Dr Zapien order: If residual <100 and pt with no nausea ok to remove NGT and start clear liquid diet.
Patient refused for NGT to be removed stating that ' Dr Zapien told her that NGT to stay and she ok to try clear liquid diet . NGT to be stay just in case if she cannot tolerate diet without nausea ' NGT per pt's request was not removed, clammed per
current order. Clear liquid diet initiated
[2024-05-26 17:22] LABS: Glucose - Point of Care 99 mg/dl (70-99)
--- NOTE | 2024-05-26 18:10 | PTCARENOTE ---
patient transfer to room 2103 transfer via bed .
AAO x3. KETCHIKAN
SR [address] pedal pulses weak to palpation
BP 183/104 Metoprolol 5mg IV adm per prn order
+2 edema hands b/l Encourage hand elevate on pillows
Abdomen tender no distention noted. Left colostomy no output . Passing flatus; Stoma pink NGT clamped denies nausea
Incontinent to urine Purwick in place draining yellow urine
J-P left 10 cc output whole shift
Left upper arm Midline dressing intact Left hand # 20 capped flushed
pt on clear liquid diet
Report given prior to transfer
--- NOTE | 2024-05-26 18:45 | PTCARENOTE ---
184: Patient arrived to 2S. L nare NG tube clamped. R side JODIE drain. Colostomy pink and flush. IVF running per order. Daughter at bedside. Call mejia within reach and bed in lowest position.
--- NOTE | 2024-05-26 20:30 | PTCARENOTE ---
NGT with 20 ml residual after patient eating clear liquid tray. NGT pulled per order. patient tolerated well
[2024-05-27] VITALS (8 sets, daily range): BP systolic 147–181; BP diastolic 69–85; BMI 38.3
[2024-05-27 00:12] LABS: Glucose - Point of Care 199 mg/dl (70-99)
[2024-05-27] MEDS: DILAUDID 0.5 MG IV ×6 (01:25→20:36)
[2024-05-27] MEDS: ZOSYN 50 IV ×4 (04:43→22:24)
[2024-05-27 07:59] LABS: Glucose - Point of Care 218 mg/dl (70-99)
[2024-05-27] MEDS: NOVOLOG FLEXPEN-MODERATE RESISTANCE 3 UNITS SC ×3 (07:59→16:57)
[2024-05-27] MEDS: NSS (PRESERVATIVE FREE) 10 ML IV (07:59)
[2024-05-27] MEDS: PROTONIX IV 40 MG IV (07:59)
[2024-05-27] MEDS: LOW STRENGTH ASPIRIN 81 MG PO (08:00)
[2024-05-27] MEDS: LOPRESSOR 25 MG TUBE ×2 (08:00→20:37)
[2024-05-27] MEDS: NORVASC 10 MG TUBE (08:00)
[2024-05-27 09:27] LABS: Glucose - Point of Care 195 mg/dl (70-99)
[2024-05-27] MEDS: NSS 1000 IV ×2 (09:41→22:28)
--- NOTE | 2024-05-27 09:52 | PTCARENOTE ---
0915: Patient attempted to stand and pivot at side of bed with an assist x2. Patient stated 'my legs are giving out' and had an assisted descent lowering her knee on RNs foot. Max assist by staff and patients son to get assisted back to bed. Patient
sustained no injuries and did not hit her head. Dr. Rojas made aware. Care ongoing at this time. Assessment unchanged at this time.
[2024-05-27 11:12] LABS: Hematocrit 25.2 % (37.0-47.0); Hemoglobin 8.6 g/dL (12.0-16.0); Mean Corp Hgb Conc. 34.1 g/dL (33.0-37.0); Mean Corpuscular Hgb 29.9 pg (27.0-31.0); Mean Corpuscular Volume 87.5 fL (81.0-99.0); Mean Platelet Volume 10.5 fL (7.4-10.4); Platelet Count 294 10^3/uL (130-400); Red Blood Cell Count 2.88 10^6/uL (4.20-5.40); Red Cell Dist. Width 15.2 % (11.5-14.5)
--- NOTE | 2024-05-27 11:26 | W.PN.CRS1 ---
Addendum entered and electronically signed by Bello Quiles MD 05/27/24 17:31:
reviewed CT; spoke with son over the phone; will cont IV abx for now; will d/w Javad tmrw regarding IR drain vs leaving it be; there was also a component of ileus, which can cause leukocytosis; son reported that patient started having ostomy
function after CT; will order clears and watch overnight
Original Note:
Today's Communication / Plan
-
as below
Assessment/Plan
-
Patient is a 58-year-old female with PMH of recurrent diverticulitis (multiple episodes over the last 25 years), recent UTI on 04/29 seen in the [place] ED, HTN, DM (on Mounjaro), breast cancer s/p resection and chemo, endometrial cancer s/p
LETI/BSO,? Aortic stent who presented with acute abdominal pain, CT concerning for perforated diverticulitis with flecks of free air around the abdomen; patient initially managed nonoperatively as there was no signs of peritonitis or hemodynamic
instability; however, patient did not improve and a repeat CT scan showed worsening pneumoperitoneum with persistent inflammation of the sigmoid colon
POD 5 Caridad's; postop was on pressors and intubated
Off pressors and extubated by POD2; pRBCx1 given on 05/22 and 05/23
Now with increasing leukocytosis, still awaiting return of bowel function
Afebrile, HR low 100s, elevated BP, UOP 1.7 L
WBC 18.0 from 15.6, Hb 8.6 from 9.2
� Although patient is largely asymptomatic, will repeat CTAP with p.o. and IV contrast for rising leukocytosis to rule out intra-abdominal process
� Continue n.p.o. until CT is done in case a procedure is necessary
� Continue pain control; recommend adding Tylenol, continue Dilaudid as needed
� Okay to continue subQ heparin and trend Hb daily; no concerns for bleeding at this time
� Continue IV Zosyn; BCx - bacterioides 05/19, OR Cx - ecoli ESBL
� Continue JODIE to bulb suction
� Appreciate WOCN
� Appreciate hospitalist
Subjective Data
Procedure
05/22/2024- 1) exploratory laparotomy 2) Caridad's resection (sigmoidectomy with rectopexy)
Subjective Data
Date of Service: May 27, 2024
Earlier this morning, the nurses were helping the patient out of bed and her knees buckled. She had a controlled fall onto her knees, no trauma elsewhere. She denies any pain currently. She did not faint.
Pain controlled.
Denies nausea/vomiting. Tolerating diet.
-ostomy function (minimal brown liquid in bag) +voiding
Objective Data
-
Vital Signs
Temp Pulse Resp BP Pulse Ox
97.5 F 85 18 175/80 94
05/27/24 07:05 05/27/24 09:15 05/27/24 07:05 05/27/24 09:15 05/27/24 09:15
Intake & Output
05/26/24 05/27/24 05/28/24
06:59 06:59 06:59
Intake Total 2750.6 / 2830.6 2640 / 2640
Output Total 1890 / 2430 2340 / 2340
Balance 860.6 / 400.6 300 / 300
Intake:
Oral fluids 880 / 880
IV fluids (Total) 2200.6 / 2280.6 1660 / 1660
Nss 1,000 ml @ 80 mls/hr IV . 2200 / 2280 800 / 800
[id number] ANA Rx#:[id number]
insulin 0.6 / 0.6
IV piggybacks 50 / 50 100 / 100
Amount instilled into GI Tube ( 500 / 500
Total)
Cameron Sump 500 / 500
Output:
Emesis 20 / 20
Drain Output (Total) 40 / 80 100 / 100
Right Abdomen 40 / 80 100 / 100
Gastrointestinal tube output ( 120 / 120
Total)
Cameron Sump 120 / 120
Urine, Voided 1850 / 0 2099 / 2099
Other:
How many times incontinent 1
SATURATED amount urine
Lab Results
05/27/24 10:52
Physical Exam
-
General: No Acute Distress and AOx3
HEENT: Grossly Normal
Abdomen: Soft, Distended (Mildly distended), Tender (Appropriately tender near incision), No Guarding, No Rebound and Other (Ostomy pink, mildly edematous, minimal brown liquid in bag)
Skin: Warm and Dry
Wound: No Signs of Infection, Dressing Changed, No Skin Erythema and Other (Half of the Telfa vincent removed, no purulent drainage or bleeding)
--- NOTE | 2024-05-27 11:28 | W.PN.HOSP.TC ---
Today's Communication/Plan
-
.
Assessment / Plan
Assessment / Plan
Physical Exam
General: no chills or fevers.
HEENT: Moist mucous membranes and PERRLA
Respiratory: Clear; No Wheezes, Rales or Rhonchi
Cardiac: S1/S2,
GI: Colostomy, + BS , + drain
Musculoskeletal: No Clubbing, No Cyanosis and No Edema
Neuro: AO x 3, she followed commands
Psych: no confusion.
A/P: Patient is a 58y F with PMH significant for HTN, DM-II and diverticular disease who presents to ED complaining of abdominal pain.
Acute Sigmoid Diverticulitis with Perforation; await wound cultures
Sepsis/ septic shock
Bacteremia - bacteroides Distasonis
#Exploratory laparotomy, Barobur's resection on 05/22/2024
- CT scan done in the ED shows acute sigmoid diverticulitis with areas of air tracking throughout the abdomen concerning for teodoro perforation.
� WBC is going up, surgery ordered a repeat CT scan
� Pain control
-�Repeat blood cultures, NGTD; wound cultures with ESBL
�Continue IV antibiotics
-OR pathology pending
-JODIE drain in place, draining dark red serosanguineous fluid
-Off NG tube
�No diarrhea, no need for C. difficile at this time
� HSQ for DVT prophylaxis
� Wound care for ostomy marking
# Multifactorial shock - septic and hypovolemic - resolved
#Acute blood loss anemia
� Transfused 2 units this admission
- HgB drifting back down
� JODIE drain with dark red serosanguineous drainage
� Hold off DVT prophylaxis at this time
� Continue monitor CBC
#Hyponatremia
-ctm
� Improving
#thrombocytopenia
-most likely sepsis�improving
-ctm with resuscitation
TIFFANI
Anion gap metabolic acidosis
A septic ATN versus prerenal etiology with acute infection
- SCr has been 1.1 since initial visit here on 04/29.
- Prior to that it had been normal at 0.7.
- IVF
�resolved
#Transaminitis due to shock
� Most likely secondary to transient hypotension/shock
- now resolved.
# Benign Hypertension
Uncontrolled as her bP starting to go up
Change to IV hydralazine
Restart Losartan since her renal function is normal now
DM-II
- Hold PO medications until resuming regular oral diet .
-Insulin ggt�transitioned to subcutaneous insulin sliding scale
Reduce dose of Lantus from 12 units to 8 units
- Follow glucose and cover with SSI as needed.
- Update A1C - 7.4
Coarctation of the Aorta
- s/p prior aortic stenting.
- Continue ASA. Will continue to monitor blood pressure.
DVT Prophylaxis: Change heparin to SQ Heparin BID
Code Status: Full
Total time spent to see the patient, examine the patient on the floor, review data and lab results, discuss the treatment plan with the patient, son ( Carlos), nursing staff around 55 minutes
Anticipated Discharge: > 48 hours
Subjective/Interval History
-
Date of Service: May 27, 2024
No fevers
still abdominal pain
Nurse:; high blood pressure
Surgery, repeat CT scan
Objective Data
-
Labs:
Laboratory Results
05/27/24
10:52
WBC 18.0 H
Hgb 8.6 L
Hct 25.2 L
Plt Count 294 D
Sodium Pending
Potassium Pending
Chloride Pending
Carbon Dioxide Pending
BUN Pending
Creatinine Pending
Glucose Pending
Calcium Pending
Total Bilirubin Pending
AST Pending
ALT Pending
Alkaline Phosphatase Pending
Vital Signs:
Vital Signs
Temp Pulse Resp BP Pulse Ox
97.5 F 85 18 175/80 94
05/27/24 07:05 05/27/24 09:15 05/27/24 07:05 05/27/24 09:15 05/27/24 09:15
I&O
05/26/24 05/27/24 05/28/24
06:59 06:59 06:59
Intake Total 2750.6 / 2830.6 2640 / 2640
Output Total 1890 / 2430 2340 / 2340
Balance 860.6 / 400.6 300 / 300
[2024-05-27 11:43] LABS: Glucose - Point of Care 248 mg/dl (70-99)
[2024-05-27 11:52] LABS: ALT (SGPT) 35 U/L (0-35); AST (SGOT) 25 U/L (14-36); Albumin 2.4 g/dl (3.5-5.0); Alkaline Phosphatase 91 U/L (38-126); Blood Urea Nitrogen 16 mg/dl (7-17); Calcium 7.8 mg/dl (8.4-10.2); Carbon Dioxide 24 mmol/L (22-30); Chloride 107 mmol/L (98-107); Estimated Creatinine Clearance 82 ml/min; Glucose 242 mg/dl (70-99); Potassium 3.8 mmol/L (3.5-5.1); Sodium 140 mmol/L (135-145); Total Bilirubin 0.8 mg/dl (0.2-1.3); Total Protein 4.8 g/dl (6.3-8.2); eGFR > 60.00
[2024-05-27 12:08] LABS: % Basophils 0.2 % (0-2); % Eosinophils 0.9 % (0-6); % Immature Granulocytes 2.2 % (0-0.5); % Lymphocytes 6.7 % (20.5-51.1); % Monocytes 4.3 % (1.7-9.3); % Neutrophils 85.7 % (42.2-75.2); Absolute Eosinophils 0.2 10^3/uL (0-0.7); Absolute Immature Granulocytes 0.4 10^3/uL (0-0.05); Absolute Lymphocytes 1.2 10^3/uL (1.2-3.4); Absolute Monocytes 0.8 10^3/uL (0.1-0.6); Absolute Neutrophils 15.6 10^3/uL (1.4-6.5); Nucleated Red Blood Cells % 0 %
[2024-05-27] MEDS: OMNIPAQUE 50 ML PO ×2 (12:11→13:20)
[2024-05-27] MEDS: COZAAR 50 MG TUBE (13:20)
[2024-05-27] MEDS: APRESOLINE 5 MG IV ×2 (14:51→22:51)
[2024-05-27] MEDS: HEPARIN 5000 UNITS SC (15:22)
[2024-05-27 16:53] LABS: Glucose - Point of Care 212 mg/dl (70-99)
[2024-05-28 00:12] LABS: Glucose - Point of Care 180 mg/dl (70-99)
[2024-05-28] MEDS: DILAUDID 0.5 MG IV ×2 (00:52→05:30)
[2024-05-28] MEDS: ZOSYN 50 IV ×2 (03:47→09:21)
--- NOTE | 2024-05-28 07:31 | PN.DE.MGMTRT ---
Insulin Management
- -
05/28/2024 Diabetes Management Follow up:
Patient admitted 05/19 with acute sigmoid diverticulitis with perforation. PMH endometrial CA, breast CA, HTN, HCL, steroid induced diabetes. Prior to admission was taking 19 units NovoLog AC with Mounjaro 2.[address] Cordova
and Omer Ndiaye PA-c at [facility]. Recently was started on Mounjaro and Jardiance and had frequent low blood sugars. She states she could not get an appointment with Omer so she called her primary doctor who told her to stop Lantus and
Jardiance due to hypoglycemia. A1C is 7.4, Cr 1.5, eGFR 39.65.
Patient is awake and alert, extubated 05/23, transitioned off of glycemic protocol, able to discuss diabetes management. Son is at bedside.
05/25 transitioned from glycemic protocol to lantus 12 units AM with corrective insulin. Glucose trended to 71 - 79. Lantus held 05/26 and 05/27. Glucose range 05/27 180 to 248, requiring 3 units corrective insulin AC. Patient remains on clear liquids.
Will resume lantus at lower dose 8 units in AM, and continue ac corrective insulin. When diet is advanced will resume SGLT2 and AC novolog.
Discussed with patient and nurse.
Diabetes History
- -
Type of Diabetes: 2 requiring insulin
Pre-Admission Diabetes Regimen
05/27/24
10:52
Creatinine 0.9
Lab Results
Hemoglobin A1c 7.4 % (4.0-5.6) H 05/20/24 05:23
Insulin Pump Settings
IP Diabetes Regimen
05/27/24 05/27/24 05/27/24
07:58 09:25 10:52
Glucose 242 H
POC Glucose 218 H 195 H
05/27/24 05/27/24 05/28/24
11:42 16:51 00:10
Glucose
POC Glucose 248 H 212 H 180 H
Meal type: Dinner
Meal type: Breakfast
Amount consumed: 100%
Amount consumed: 50%
Patient Education
[2024-05-28 07:59] VITALS: BP 134/66
--- NOTE | 2024-05-28 08:27 | PN.CDI ---
Addendum entered and electronically signed by Constance Rojas MD 05/28/24 09:01:
TIFFANI only, ATN ruled out
Original Note:
CDI
- -
CDI:
Physician Documentation Request
Admit Date: 05/20/24 01:02
Dear Doctor Bob,
Please review the following and provide your response in the progress notes.
Clinical Indicators:
- Patient admit for sepsis due to acute sigmoid diverticulitis with perforation
- per Progress notes 'TIFFANI'
- 'A septic ATN versus prerenal etiology with acute infection'
Laboratory Tests
05/22/24 05/22/24 05/23/24
04:00 19:57 14:19
Creatinine 0.9 1.3 H 1.8 H
eGFR > 60.00 47.08 31.86
05/24/24 05/25/24 05/26/24
04:51 05:45 05:29
Creatinine 1.6 H 1.3 H 0.9
eGFR 36.69 47.08 > 60.00
Please clarify which of the following accurately represents the patient's renal status:
TIFFANI and ATN
TIFFANI only, ATN ruled out
Other
Use of terms such as suspected, likely, concern for, or probable (associated with a specific diagnosis that is being evaluated, monitored, or treated as if it exists) are acceptable and can be coded in the inpatient setting, when documented at the
time of discharge.
Thank you,
Shaniqua Traore RN
CDI Specialist
Please use your independent medical judgment in providing your response.
*Source: Kidney Disease: Improving Global Outcomes (KDIGO) 2012
[2024-05-28 08:46] LABS: Hematocrit 24.4 % (37.0-47.0); Hemoglobin 8.4 g/dL (12.0-16.0); Mean Corp Hgb Conc. 34.4 g/dL (33.0-37.0); Mean Corpuscular Hgb 30.9 pg (27.0-31.0); Mean Corpuscular Volume 89.7 fL (81.0-99.0); Mean Platelet Volume 10.9 fL (7.4-10.4); Platelet Count 264 10^3/uL (130-400); Red Blood Cell Count 2.72 10^6/uL (4.20-5.40); Red Cell Dist. Width 15.3 % (11.5-14.5); White Blood Cell Count 17.3 10^3/uL (4.8-10.8)
[2024-05-28 09:05] LABS: ALT (SGPT) 26 U/L (0-35); AST (SGOT) 21 U/L (14-36); Albumin 2.2 g/dl (3.5-5.0); Alkaline Phosphatase 78 U/L (38-126); Blood Urea Nitrogen 12 mg/dl (7-17); Calcium 7.4 mg/dl (8.4-10.2); Carbon Dioxide 25 mmol/L (22-30); Chloride 107 mmol/L (98-107); Estimated Creatinine Clearance 93 ml/min; Glucose 166 mg/dl (70-99); Potassium 3.8 mmol/L (3.5-5.1); Sodium 139 mmol/L (135-145); Total Bilirubin 0.6 mg/dl (0.2-1.3); Total Protein 4.6 g/dl (6.3-8.2); eGFR > 60.00
[2024-05-28] MEDS: PROTONIX IV 40 MG IV (09:18)
[2024-05-28] MEDS: NSS (PRESERVATIVE FREE) 10 ML IV (09:18)
[2024-05-28 09:19] LABS: Glucose - Point of Care 168 mg/dl (70-99)
[2024-05-28] MEDS: NORVASC 10 MG TUBE (09:19)
[2024-05-28] MEDS: LOPRESSOR 25 MG TUBE (09:19)
[2024-05-28] MEDS: LOW STRENGTH ASPIRIN 81 MG PO (09:19)
[2024-05-28] MEDS: LANTUS 0.08 UNITS SC (09:20)
[2024-05-28] MEDS: NOVOLOG FLEXPEN-MODERATE RESISTANCE 1 UNITS SC ×3 (09:20→17:00)
[2024-05-28] MEDS: NSS 1000 IV ×2 (09:33→23:35)
[2024-05-28] MEDS: TYLENOL 650 MG PO ×2 (09:33→20:12)
--- NOTE | 2024-05-28 09:40 | PTCARENOTE ---
Spoke with this AM, all medications are still listed to be given through the tube. stated that she will change the orders later on after her rounding but gave approval to use current ordered medications as PO meds. No new orders at this time.
--- NOTE | 2024-05-28 10:27 | W.PN.CRS1 ---
Today's Communication / Plan
-
ID consult
Assessment/Plan
-
Patient is a 58-year-old female with PMH of recurrent diverticulitis (multiple episodes over the last 25 years), recent UTI on 04/29 seen in the [place] ED, HTN, DM (on Mounjaro), breast cancer s/p resection and chemo, endometrial cancer s/p
LETI/BSO,? Aortic stent who presented with acute abdominal pain, CT concerning for perforated diverticulitis with flecks of free air around the abdomen; patient initially managed nonoperatively as there was no signs of peritonitis or hemodynamic
instability; however, patient did not improve and a repeat CT scan showed worsening pneumoperitoneum with persistent inflammation of the sigmoid colon
POD 6 Caridad's; postop was on pressors and intubated
Off pressors and extubated by POD2; pRBCx1 given on 05/22 and 05/23
Now with increasing leukocytosis
Tmax: 110.7
WBC 17.3 from 18.0
� CT A/P shows 7 x 8 x 3 cm intermediate density heterogeneous left subdiaphragmatic fluid collection containing a small amount of extraluminal gas. Differential diagnosis for this collection includes hematoma and abscess. Discussed case with IR,
unable to drain due to location.
- ID consulted
� Continue clear liquid diet
� Continue pain control; recommend adding Tylenol, continue Dilaudid as needed
� Okay to continue subQ heparin and trend Hb daily; no concerns for bleeding at this time
� Continue IV Zosyn; BCx - bacterioides 05/19, OR Cx - ecoli ESBL
� Continue JODIE to bulb suction
� Appreciate WOCN
� Appreciate hospitalist
Subjective Data
Procedure
05/22/2024- 1) exploratory laparotomy 2) Caridad's resection (sigmoidectomy with rectopexy)
Subjective Data
Date of Service: May 28, 2024
Patient states she still has intermittent pain. Her stoma is having function. She is tolerating clears. She denies nausea or vomiting.
Objective Data
-
Vital Signs
Temp Pulse Resp BP Pulse Ox
100.7 F H 101 20 134/66 94
05/28/24 09:40 05/28/24 09:19 05/28/24 07:59 05/28/24 09:19 05/28/24 07:59
Intake & Output
05/27/24 05/28/24 05/29/24
06:59 06:59 06:59
Intake Total 2640 / 2640 2980 / 2980
Output Total 2340 / 2340 840 / 840
Balance 300 / 300 2140 / 2140
Intake:
Oral fluids 880 / 880 1920 / 1920
IV fluids (Total) 1660 / 1660 960 / 960
Nss 1,000 ml @ 80 mls/hr IV . 800 / 800
[id number] ANA Rx#:[id number]
IV piggybacks 100 / 100 100 / 100
Output:
Emesis 20 / 20
Liquid stool amount 270 / 270
Colostomy 270 / 270
Drain Output (Total) 100 / 100 70 / 70
Right Abdomen 100 / 100 70 / 70
Gastrointestinal tube output ( 120 / 120
Total)
[place] Sump 120 / 120
Urine, Voided 2100 / 2100 500 / 500
Other:
How many times incontinent 2
MODERATE amount urine
How many times incontinent 1
SATURATED amount urine
Lab Results
05/28/24 08:16
05/28/24 08:16
Physical Exam
-
General: No Acute Distress and AOx3
Abdomen: Soft, Non Distended, Tender (mild around ostomy) and Other (colostomy warm and pink with output in bag)
Skin: Warm and Dry
Wound: Dressing Changed
--- NOTE | 2024-05-28 11:04 | PTCARENOTE ---
Pt's temp this AM was 100.7 orally. Tylenol administered, temp reduced to 100.6 orally, made aware. Pt also complaining of a sore throat this AM, unsure if the reason is from previous NGT/intubation or infection. COVID swab complete.
[2024-05-28 11:56] LABS: Glucose - Point of Care 162 mg/dl (70-99)
[2024-05-28] MEDS: NORVASC 10 MG PO (12:08)
[2024-05-28] MEDS: COZAAR 50 MG PO ×2 (12:13→19:59)
[2024-05-28 12:16] VITALS: BP 154/76
[2024-05-28 12:36] LABS: COVID-19 Antigen Negative (Negative)
--- NOTE | 2024-05-28 14:30 | CON.ID ---
Consultation
-
Date/Time Consultation Requested: 05/28/2024 06:21
Date/Time Consultation Performed: 05/28/2024 1400
Requesting Provider: Dr. Rojas
Performing Provider: Dr. Santamaria
Reason for Consultation: ESBL E. coli
Chief Complaint / Past History
History of Present Illness
Bella Mendoza is a 58-year-old female being evaluated at the request of Dr. Rojas in regards to leukocytosis and a history of ESBL E. coli. History is obtained from chart review, along with patient interview.
The patient reports that she was in her usual state of health until earlier this month when she presented to the emergency room twice for a urinary tract infection. Cultures at that time grew out E. coli, and she was placed on an antibiotic.
She presented again to the ER on 05/19 with the acute onset of abdominal discomfort earlier in the day. Workup in the emergency room included CT imaging which showed sigmoid diverticulitis along with a very small area of perforation. She initially
proceeded with conservative measures, but repeat imaging on 05/22 revealed increased free air and she was taken to the OR for Barbour's procedure/diverting colostomy. Blood cultures obtained at the time of admission revealed the presence of
Bacteroides. Cultures obtained at the time of the OR on 05/22 have revealed the presence of ESBL E. coli. Infectious Diseases is asked to comment upon ongoing antimicrobial management. Review of the operative notes indicate that the patient had an
intraoperative splenic capsular tear which was treated with TXA and Surgicel.
At this point in time she does admit to some abdominal discomfort. She denies any fevers or chills although did have some low-grade temperatures earlier today. She denies cough or congestion. She denies any current urinary symptomatology.
Past History
Additional Past Medical History:
HTN
DM
Hx breast CA
Hx endometrial CA
Diverticulitis
Additional Past Surgical History:
Bilateral mastectomy
Hysterectomy
x 2
Allergy History:
diphtheria, pertussis, tetanus vacc Allergy (Verified 05/19/24 19:20)
Unknown
gentamicin Adverse Reaction (Verified 05/22/24 20:27)
Hearing loss
Medications Reviewed: Yes
Current Antibiotics:
Zosyn 4.5 g IV every 6 hours
Social History
Tobacco: Non-Smoker
Alcohol: None
Drug: None
Personal: Single
Living: With Family
Employment: Retired
Family History
Family History: Not Pertinent
Review of Systems
Vital Signs
Temp Pulse Resp BP Pulse Ox
98.8 F 85 18 154/76 94
05/28/24 12:16 05/28/24 12:16 05/28/24 12:16 05/28/24 12:16 05/28/24 12:16
Physical Exam
Physical Exam
Constitutional: No Acute Distress, Comfortable and Non-toxic
Eyes: No Conjunctival Hemorrhage and Sclera Anicteric
Oral: No Thrush and No Ulcers
Cardiovascular: S1/S2; Negative S3/S4 or Murmur
Pulmonary: Clear; Negative Wheezes, Rales or Rhonchi
Gastrointestinal: Soft, Non Distended, Normal Bowel Sounds, No Rebound, No Guarding and Other (Ostomy in place)
Extremities: Negative Edema, Cyanosis or Erythema
Wound: Other (Anterior abdominal wound with sutures in place. Small areas of dehiscence noted. No surrounding periwound erythema. Scant drainage.)
Neurological: Awake and Alert
Psychological: Calm
.
Lab / Diagnostic Study Results
05/28/24 08:16
05/28/24 08:16
Abs Immat Gran (auto) 0.4 10^3/uL (0-0.05) H 05/27/24 10:52
Absolute Neuts (auto) 15.6 10^3/uL (1.4-6.5) H 05/27/24 10:52
Absolute Lymphs (auto) 1.2 10^3/uL (1.2-3.4) 05/27/24 10:52
Absolute Monos (auto) 0.8 10^3/uL (0.1-0.6) H 05/27/24 10:52
Absolute Basos (auto) 0.0 10^3/uL (0-0.2) 05/27/24 10:52
Immature Gran % 2.2 % (0-0.5) H 05/27/24 10:52
Neutrophils % 85.7 % (42.2-75.2) H 05/27/24 10:52
Lymphocytes % 6.7 % (20.5-51.1) L 05/27/24 10:52
Monocytes % 4.3 % (1.7-9.3) 05/27/24 10:52
Eosinophils % 0.9 % (0-6) 05/27/24 10:52
Basophils % 0.2 % (0-2) 05/27/24 10:52
PT 16.1 Sec (11.4-14.6) H 05/22/24 19:57
INR 1.28 05/22/24 19:57
Lactic Acid 1.2 mmol/L (0.7-2.0) 05/20/24 22:09
Ur Squamous Epith Cells 11-15 /LPF (Few) 05/19/24 22:11
Microbiology Results
Micro:
05/22/24 08:00 Wound Culture - Final
Abdomen Escherichia coli - ESBL
Gram Stain - Final
05/22/24 08:00 Anaerobic Culture - Final
Abdomen
05/19/24 20:48 Blood Culture - Final
Blood/Venous Bacteroides distasonis
Gram Stain - Final
05/21/24 17:56 Blood Culture - Final
Blood/Venous No Growth - Final Report
05/27/2024 CT abdomen/pelvis with contrast: There is 7 x 8 x 3 cm intermediate density heterogeneous left subdiaphragmatic fluid collection containing a small amount of extraluminal gas. Differential diagnosis for this collection includes hematoma
and abscess. Sigmoidectomy with left lower quadrant colostomy. Moderate ascites including areas of loculated fluid in the abdomen and pelvis. Small left pleural effusion with compressive atelectasis at the posterior left lung base. Please see
full dictation for additional detail.
Assessment / Plan
Diverticulitis with diverticular perforation
S/p diverting colostomy (05/22/2024). Intraop splenic capsular tear
Leukocytosis
Recovery of ESBL E. coli from surgery
Bacteroides bacteremia
Low-grade temperatures
HTN
DM
Hx breast CA
Hx endometrial CA
Diverticulitis
Recommendations:
Continue with Zosyn for the present as isolate is susceptible
Trend white count.
Trend fever curve. Given likelihood of hematoma around the splenic area, fever may be secondary to this.
Monitor drain output
[2024-05-28] MEDS: ROXICODONE 5 MG PO (14:39)
[2024-05-28 16:00] VITALS: BP 167/74
--- NOTE | 2024-05-28 16:40 | CM ---
Chart reviewed.
Febrile, IV anbx.
Continue drain.
Tolerating clears.
Await PT/OT recommendations.
Plan: await recommendations.
[2024-05-28] MEDS: HEPARIN 5000 UNITS SC ×2 (16:50→23:34)
[2024-05-28 16:51] LABS: Glucose - Point of Care 171 mg/dl (70-99)
[2024-05-28] MEDS: ZOSYN 100 IV ×2 (16:51→23:34)
--- NOTE | 2024-05-28 16:55 | WOUNDNOTE ---
WON RN NOTE: Appliance changed today, son not willing to participate in teaching session. Patient states she has a friend that is a nurse that she can ask, but unable to come in until after 5 pm. Stoma slightly budded on one side, os is at skin
level and medial edge starting mucocutaneous separation. Peristomal skin intact, output for moderate amt of brown liquid stool. Showed patient how to open and close pouch, able to do on own. Extensive teaching done with emptying and appliance
change. Today used Convex 2 3/4' wafer and drainable pouch. Called [facility] for stoma paste and additional pouches. Will bring more convex wafers to patient tomorrow. Patient very overwhelmed with having a colostomy and having to change it, adverse to
odor. Will enroll in secure start kit and request samples of odor eliminator drops. Support and encouragement given. Turned patient to side with assist from nurse Eamon, sacrum is intact, mild MASD. Patient incontinent of urine, sheets soaked, nurse
will change and do skin care. Will follow towards end of week.
[2024-05-28] MEDS: APRESOLINE 5 MG IV (18:09)
[2024-05-28] MEDS: LOPRESSOR 25 MG PO (19:59)
[2024-05-28 21:34] LABS: Glucose - Point of Care 178 mg/dl (70-99)
[2024-05-28] MEDS: MYLICON 80 MG PO (21:42)
[2024-05-28 23:06] VITALS: BP 153/70
[2024-05-29] MEDS: TYLENOL 650 MG PO ×3 (02:25→15:59)
[2024-05-29 06:00] VITALS: BMI 35.9
[2024-05-29] MEDS: ZOSYN 100 IV ×4 (06:24→23:51)
--- NOTE | 2024-05-29 07:26 | PN.DE.MGMTRT ---
Insulin Management
- -
05/29/2024 Diabetes Management Follow up:
Patient admitted 05/19 with acute sigmoid diverticulitis with perforation. PMH endometrial CA, breast CA, HTN, HCL, steroid induced diabetes. Prior to admission was taking 19 units NovoLog AC with Mounjaro 2.[address] weekly[address] Cordova
and Omer Ndiaye PA-c at [facility]. Recently was started on Mounjaro and Jardiance and had frequent low blood sugars. She states she could not get an appointment with Omer so she called her primary doctor who told her to stop Lantus and
Jardiance due to hypoglycemia. A1C is 7.4, Cr 1.5, eGFR 39.65.
Patient is awake and alert, extubated 05/23, transitioned off of glycemic protocol, able to discuss diabetes management.
05/25 transitioned from glycemic protocol to lantus 12 units AM with corrective insulin. Glucose trended to 71 - 79. Lantus held 05/26 and 05/27. Glucose range 05/27 180 to 248, requiring 3 units corrective insulin AC.
05/28 Diet advanced to full liquids, lantus 8 units in AM started with ac corrective insulin. Glucose range 162 to 178.
Diet advanced to low residue, added 1800 calorie. Will resume Jardiance 10 mg, r units novolog AC with moderate corrective insulin. Son brought Mounjaro 5 mg from home, pharmacy profiled patient to receive today.
Discussed with patient and nurse.
Diabetes History
- -
Type of Diabetes: 2 requiring insulin
Pre-Admission Diabetes Regimen
05/28/24
08:16
Creatinine 0.8
Lab Results
Hemoglobin A1c 7.4 % (4.0-5.6) H 05/20/24 05:23
Insulin Pump Settings
IP Diabetes Regimen
05/28/24 05/28/24 05/28/24
08:16 09:18 11:55
Glucose 166 H
POC Glucose 168 H 162 H
05/28/24 05/28/24
16:48 21:33
Glucose
POC Glucose 171 H 178 H
Meal type: Lunch
Meal type: Breakfast
Amount consumed: 100%
Amount consumed: 0
Patient Education
[2024-05-29 07:59] LABS: Glucose - Point of Care 141 mg/dl (70-99)
[2024-05-29 08:00] VITALS: BP 155/88
--- NOTE | 2024-05-29 08:40 | W.PN.CRS1 ---
Today's Communication / Plan
-
as below
Assessment/Plan
-
58-year-old female with PMH of recurrent diverticulitis (multiple episodes over the last 25 years), recent UTI on 04/29 seen in the [place] [facility], HTN, DM (on Mounjaro), breast cancer s/p resection and chemo, endometrial cancer s/p LETI/BSO,? Aortic
stent who presented with acute abdominal pain, CT concerning for perforated diverticulitis with flecks of free air around the abdomen; patient initially managed nonoperatively as there was no signs of peritonitis or hemodynamic instability; however,
patient did not improve and a repeat CT scan showed worsening pneumoperitoneum with persistent inflammation of the sigmoid colon
POD 7 Caridad's; postop was on pressors and intubated
Off pressors and extubated by POD2; pRBCx1 given on 05/22 and 05/23
05/27 CT (for bump in WBC) - LUQ collection c/f perisplenic hematoma, expected post-op changes
Tmax 100.7, HR 80-100s
Labs pending
�CT with perisplenic collection, likely hematoma; discussed with IR, not easily drainable, not overly concern for abscess; will hold off on IR drainage
� Continue IV Zosyn; BCx - bacterioides 05/19, OR Cx - ecoli ESBL; appreciate ID
� Okay for low residue
� Continue pain control; recommend adding Tylenol, oxycodone, continue Dilaudid as needed;
� Continue subQ heparin for DVT PPx
� Continue JODIE to bulb suction
� Appreciate WOCN
- Appreciate PT
� Appreciate hospitalist
Subjective Data
Procedure
05/22/2024- 1) exploratory laparotomy 2) Caridad's resection (sigmoidectomy with rectopexy)
Subjective Data
Date of Service: May 29, 2024
No overnight events.
Admits to being anxious and sad about now having an ostomy.
Having more pain today, but only took Tylenol overnight.
Denies nausea/vomiting. Tolerating diet.
+ Ostomy function +voiding
Objective Data
-
Vital Signs
Temp Pulse Resp BP Pulse Ox
98.7 F 84 18 153/70 94
05/28/24 23:06 05/28/24 23:06 05/28/24 23:06 05/28/24 23:06 05/29/24 01:18
Intake & Output
05/28/24 05/29/24 05/30/24
06:59 06:59 06:59
Intake Total 2980 / 2980 2490 / 2490
Output Total 840 / 840 80 / 80
Balance 2140 / 2140 2410 / 2410
Intake:
Oral fluids 1920 / 1920 1480 / 1480
IV fluids (Total) 960 / 960 960 / 960
IV piggybacks 100 / 100 50 / 50
Output:
Liquid stool amount 270 / 270
Colostomy 270 / 270
Drain Output (Total) 70 / 70 80 / 80
Right Abdomen 70 / 70 80 / 80
Urine, Voided 500 / 500
Other:
How many times incontinent 2 1
MODERATE amount urine
How many times incontinent 1 2
SATURATED amount urine
Physical Exam
-
General: No Acute Distress and AOx3
HEENT: Grossly Normal
Abdomen: Soft, Distended (Minimally to mildly distended), Tender (Appropriately tender near incision), No Guarding, No Rebound and Other (Ostomy edematous, dark red, no cyanosis or necrosis, stool in the bag, heard flatus during exam; JODIE-80 mL
serosanguineous)
Skin: Warm and Dry
Wound: No Signs of Infection, Dressing in Place (Removed remaining Telfa vincent), No Skin Erythema and Other (No purulent drainage)
[2024-05-29 08:52] LABS: ALT (SGPT) 22 U/L (0-35); AST (SGOT) 21 U/L (14-36); Albumin 2.3 g/dl (3.5-5.0); Alkaline Phosphatase 74 U/L (38-126); Blood Urea Nitrogen 11 mg/dl (7-17); Calcium 7.4 mg/dl (8.4-10.2); Chloride 107 mmol/L (98-107); Estimated Creatinine Clearance 90 ml/min; Glucose 144 mg/dl (70-99); Potassium 3.7 mmol/L (3.5-5.1); Sodium 139 mmol/L (135-145); Total Bilirubin 0.6 mg/dl (0.2-1.3); Total Protein 4.8 g/dl (6.3-8.2); eGFR > 60.00
[2024-05-29 08:56] LABS: Hematocrit 24.9 % (37.0-47.0); Hemoglobin 8.4 g/dL (12.0-16.0); Mean Corp Hgb Conc. 33.7 g/dL (33.0-37.0); Mean Corpuscular Hgb 29.7 pg (27.0-31.0); Platelet Count 322 10^3/uL (130-400); Red Blood Cell Count 2.83 10^6/uL (4.20-5.40); Red Cell Dist. Width 15.3 % (11.5-14.5); White Blood Cell Count 17.4 10^3/uL (4.8-10.8)
[2024-05-29] MEDS: LANTUS 0.08 UNITS SC (09:04)
[2024-05-29] MEDS: NOVOLOG FLEXPEN-MODERATE RESISTANCE SC ×2 (09:04→17:25)
[2024-05-29] MEDS: PROTONIX IV 40 MG IV (09:05)
[2024-05-29] MEDS: NSS (PRESERVATIVE FREE) 10 ML IV (09:05)
[2024-05-29] MEDS: COZAAR 50 MG PO ×2 (09:06→20:08)
[2024-05-29] MEDS: HEPARIN 5000 UNITS SC ×3 (09:06→23:51)
[2024-05-29] MEDS: LOW STRENGTH ASPIRIN 81 MG PO (09:06)
[2024-05-29] MEDS: LOPRESSOR 25 MG PO ×2 (09:07→20:08)
[2024-05-29] MEDS: NORVASC 10 MG PO (09:08)
[2024-05-29] MEDS: MYLICON 80 MG PO (09:08)
--- NOTE | 2024-05-29 09:15 | WOUNDNOTE ---
WON RN NOTE: Dropped off additional 2 3/4' convex wafers reviewed convexity with patient and nurse at bedside. Appliance that was changed yesterday is secure, no leakage. Consent given by patient to enroll in [employer] program, reviewed
kit with patient. Enrolled in [employer] start and informed patient to try samples in kit when home. Also made aware if samples work for her, then have VN assist in ordering monthly supply. Patient in better spirits today and receptive to teaching.
[2024-05-29 10:51] LABS: Carbon Dioxide 24 mmol/L (22-30)
[2024-05-29 11:16] LABS: Glucose - Point of Care 235 mg/dl (70-99)
[2024-05-29] MEDS: FARXIGA 10 MG PO (11:26)
[2024-05-29] MEDS: NON-FORMULARY ITEM 1 UNIT SC (11:26)
--- NOTE | 2024-05-29 12:11 | W.PN.ID1 ---
Date of Service
Date of Service: May 29, 2024
Today's Communication
Continue abx.
Assessment / Plan
Diverticulitis with diverticular perforation
- s/p diverting colostomy (05/22/2024).
- Intra-op splenic capsular tear
Leukocytosis
Recovery of ESBL E. coli from surgery
Bacteroides bacteremia
Low-grade temperatures
HTN
DM
Hx breast CA
Hx endometrial CA
Diverticulitis
Recommendations:
Continue with Zosyn for the present as isolate is susceptible.
Trend white count.
Trend fever curve. Given likelihood of hematoma around the splenic area, fever may be secondary to this.
Monitor drain output.
Patient may require course of IV antibiotics following discharge.
����������������������������������������������������������
Chief Complaint
-: Other (Abdominal infection)
Subjective / Review of Systems
Review of Systems: No Fever and No Chills
Vital Signs / Physical Exam
Vital Signs
Vital Signs
Temp Pulse Resp BP Pulse Ox
98.0 F 98 17 155/88 96
05/29/24 08:00 05/29/24 09:08 05/29/24 08:00 05/29/24 09:08 05/29/24 08:00
Physical Exam
Constitutional: No Acute Distress, Comfortable and Non-toxic
Eyes: Sclera Anicteric
Cardiovascular: S1/S2; Negative S3/S4
Pulmonary: Clear; Negative Wheezes, Rales or Rhonchi
Gastrointestinal: Soft, Non Tender and Other (Ostomy in place)
Neurological: Awake and Alert
Psychological: Calm
Objective Data
Lab Data
Lab Results
05/29/24 08:20
05/29/24 08:20
PT 16.1 Sec (11.4-14.6) H 08/28/24 19:57
INR 1.28 05/22/24 19:57
APTT 28.3 Sec (23.4-35.0) 05/22/24 19:57
Estimated Creat Clear 90 ml/min 05/29/24 08:20
Lactic Acid 1.2 mmol/L (0.7-2.0) 05/20/24 22:09
Total Bilirubin 0.6 mg/dl (0.2-1.3) 05/29/24 08:20
AST 21 U/L (14-36) 05/29/24 08:20
ALT 22 U/L (0-35) 05/29/24 08:20
Alkaline Phosphatase 74 U/L (38-126) 05/29/24 08:20
Most recent labs reviewed.
Micro Results:
05/22/24 08:00 Wound Culture - Final
Abdomen Escherichia coli - ESBL
Gram Stain - Final
05/22/24 08:00 Anaerobic Culture - Final
Abdomen
05/19/24 20:48 Blood Culture - Final
Blood/Venous Bacteroides distasonis
Gram Stain - Final
05/21/24 17:56 Blood Culture - Final
Blood/Venous No Growth - Final Report
Imaging:
05/27/2024 CT abdomen/pelvis with contrast: There is 7 x 8 x 3 cm intermediate density heterogeneous left subdiaphragmatic fluid collection containing a small amount of extraluminal gas. Differential diagnosis for this collection includes hematoma
and abscess. Sigmoidectomy with left lower quadrant colostomy. Moderate ascites including areas of loculated fluid in the abdomen and pelvis. Small left pleural effusion with compressive atelectasis at the posterior left lung base. Please see
full dictation for additional detail.
[2024-05-29] MEDS: NOVOLOG FLEXPEN-MODERATE RESISTANCE 3 UNITS SC (12:54)
[2024-05-29] MEDS: NOVOLOG FLEXPEN 4 UNITS SC ×2 (12:54→17:24)
--- NOTE | 2024-05-29 12:54 | PTCARENOTE ---
Pt needs renew / stop order for iv fluids. made aware. Order to hold iv fluids now. Pt tolerating po fluids well. plan of care ongoing.
[2024-05-29] MEDS: NSS IV (13:36)
--- NOTE | 2024-05-29 14:06 | CM ---
Reviewed the chart notes and spoke with the patient at the bedside. Patient's insurance has changed as of 26 May to a [employer] product. The patient is attempting to acquire the policy number for records. PT recommending SNF/rehab prior to
transitioning back to home. Patient agreeable to SNFs close to home. CM continues to be available to patient/family and is monitoring medical plan for needs at discharge.
Plan: Discharge plans will be SNF/rehab prior to transitioning back to home. Precert will be required. Patient's insurance has changed to a [employer] product. Patient to obtain policy number and contact information for precert.
--- NOTE | 2024-05-29 14:18 | W.PN.HOSP.TC ---
Today's Communication/Plan
-
abx per ID
pain meds adjusted
h/u Hbg
Assessment / Plan
Assessment / Plan
1. Acute sigmoid diverticulitis with perforation
Status post expiratory laparotomy and Abrbour procedure on 05/22
-CT scan in ED showing sigmoid diverticulitis with perforation
-Patient underwent elective exploratory laparotomy resection and Caridad procedure
-Postoperatively patient currently off of NGT
-Good brown soft stool output on ostomy bag
-Maintain on LR diet
2. Multifactorial shock -septic/hypovolemic
-This was postoperative requiring vasopressor support
3. Bacteroids distasonis bacteremia
ESBL ecoli peritonitis
-Intraoperative abdominal fluid culture growing ESBL E. coli
-Bacteroides isolated preoperatively on blood culture 1 set, repeat negative
-Currently on Zosyn, ID managing and help appreciated
-Continue to have persistent leukocytosis monitor
4. Acute blood loss anemia
� s/p 2 units this admission
� JODIE drain with dark red serosanguineous drainage
� monitor CBC
5. TIFFANI
AGAP metabolic acidosis
Hyponatremia
-Renal function has normalized
-Sodium back to normal, monitor
6. Acute transaminitis
-Secondary to hypotension/shock, improved
7. IDDM
-Hemoglobin A1c of 7.4
-Patient requiring insulin gtt. support in ICU
-Maintain on and NovoLog with sliding scale
-Diabetic nurse practitioner managing and help appreciated
8. Coarctation of the Aorta
- s/p prior aortic stenting.
- Continue ASA. Will continue to monitor blood pressure.
DVT Prophylaxis: Heparin subq
Code Status: Full
Anticipated Discharge: > 48 hours
Subjective/Interval History
-
Date of Service: May 29, 2024
Complain some lower abdominal discomfort
Good stool output in stoma bag
No nausea or vomiting
Objective Data
-
Labs:
Laboratory Results
05/29/24
08:20
WBC 17.4 H
Hgb 8.4 L
Hct 24.9 L
Plt Count 322 D
Sodium 139
Potassium 3.7
Chloride 107
Carbon Dioxide 24
BUN 11
Creatinine 0.8
Glucose 144 H
Calcium 7.4 L
Total Bilirubin 0.6
AST 21
ALT 22
Alkaline Phosphatase 74
Vital Signs:
Vital Signs
Temp Pulse Resp BP Pulse Ox
98.0 F 98 17 155/88 96
05/29/24 08:00 05/29/24 09:08 05/29/24 08:00 05/29/24 09:08 05/29/24 09:30
I&O
05/28/24 05/29/24 05/30/24
06:59 06:59 06:59
Intake Total 2980 / 2980 2490 / 2490
Output Total 840 / 840 80 / 80 160 / 160
Balance 2140 / 2140 2410 / 2410 -160 / -160
Review of Systems
-
Respiratory: Reports No Symptoms
Cardiac: Reports No Symptoms
Abdomen/GI: Reports No Symptoms
Physical Exam
-
General: No Apparent Distress and Comfortable
HEENT: Negative Oxygen
Respiratory: Clear to Auscultation
Cardiac: Regular Rhythm and S1/S2; Negative Murmur or Rub
GI: Soft, Normal Bowel Sounds and Ostomy (Brown stool )
Musculoskeletal: No Edema
Neuro: Awake, Alert, Oriented, No Motor Deficits and Nonfocal/Grossly Intact
Psych: Calm
--- NOTE | 2024-05-29 16:18 | VATNOTE ---
During routine assessment, swelling noted in patient's L arm. Swelling appears generalized. RENETTA measured to compare to the measurement taken at the time of midline placement. RENETTA continues to measure at 40 cm 10 cm above the antecubital fossa. No
further action needed at this time.
[2024-05-29 16:23] VITALS: BP 152/75
[2024-05-29 17:20] LABS: Glucose - Point of Care 129 mg/dl (70-99)
[2024-05-29] MEDS: ROXICODONE 5 MG PO (20:12)
[2024-05-29 21:35] LABS: Glucose - Point of Care 149 mg/dl (70-99)
[2024-05-29 23:30] VITALS: BP 148/78
[2024-05-30] MEDS: ROXICODONE 5 MG PO ×3 (00:32→21:41)
[2024-05-30] MEDS: ZOSYN 100 IV ×4 (05:39→23:21)
[2024-05-30 06:00] VITALS: BMI 37.5
--- NOTE | 2024-05-30 07:21 | PN.DE.MGMTRT ---
Insulin Management
- -
05/30/2024 Diabetes Management Follow up:
Patient admitted 05/19 with acute sigmoid diverticulitis with perforation. PMH endometrial CA, breast CA, HTN, HCL, steroid induced diabetes. Prior to admission was taking 19 units NovoLog AC with Mounjaro 2.[address] Cordova
and Omer Ndiaye PA-c at [facility]. Recently was started on Mounjaro and Jardiance and had frequent low blood sugars. She states she could not get an appointment with Omer so she called her primary doctor who told her to stop Lantus and
Jardiance due to hypoglycemia. A1C is 7.4, Cr 1.5, eGFR 39.65.
Patient is awake and alert, extubated 05/23, transitioned off of glycemic protocol, able to discuss diabetes management.
05/25 transitioned from glycemic protocol to lantus 12 units AM with corrective insulin. Glucose trended to 71 - 79. Lantus held 05/26 and 05/27. Glucose range 05/27 180 to 248, requiring 3 units corrective insulin AC.
05/29 Diet advanced to low residue, added 1800 calorie. Will resume Jardiance 10 mg, 4 units novolog AC with moderate corrective insulin. Received Mounjaro 5 mg 05/29
05/30 Glucose range improved after AC novolog started, pre dinner 129, hs 149. Will Continue 4 units ac novolog with moderate corrective, Jardiance and 8 units lantus in AM.
Discussed with patient and nurse.
Diabetes History
- -
Type of Diabetes: 2 requiring insulin
Pre-Admission Diabetes Regimen
05/29/24
08:20
Creatinine 0.8
Lab Results
Hemoglobin A1c 7.4 % (4.0-5.6) H 05/20/24 05:23
Insulin Pump Settings
IP Diabetes Regimen
05/29/24 05/29/24 05/29/24
07:57 08:20 11:15
Glucose 144 H
POC Glucose 141 H 235 H
05/29/24 05/29/24
17:18 21:33
Glucose
POC Glucose 129 H 149 H
Meal type: Lunch
Meal type: Dinner
Amount consumed: 75%
Amount consumed: 50%
Patient Education
[2024-05-30 08:04] VITALS: BP 167/81
[2024-05-30 08:15] LABS: Glucose - Point of Care 123 mg/dl (70-99)
[2024-05-30] MEDS: NOVOLOG FLEXPEN-MODERATE RESISTANCE SC (08:19)
[2024-05-30] MEDS: PROTONIX IV 40 MG IV (08:20)
[2024-05-30] MEDS: NOVOLOG FLEXPEN 4 UNITS SC ×3 (08:20→17:50)
[2024-05-30] MEDS: NSS (PRESERVATIVE FREE) 10 ML IV (08:20)
[2024-05-30] MEDS: NORVASC 10 MG PO (08:21)
[2024-05-30] MEDS: LOPRESSOR 25 MG PO ×2 (08:21→21:40)
[2024-05-30] MEDS: FARXIGA 10 MG PO (08:21)
[2024-05-30] MEDS: HEPARIN 5000 UNITS SC ×3 (08:21→23:20)
[2024-05-30] MEDS: LANTUS 0.08 UNITS SC (08:22)
[2024-05-30] MEDS: COZAAR 50 MG PO ×2 (08:22→21:40)
[2024-05-30] MEDS: LOW STRENGTH ASPIRIN 81 MG PO (08:22)
[2024-05-30 08:24] LABS: Hematocrit 24.8 % (37.0-47.0); Hemoglobin 8.5 g/dL (12.0-16.0); Mean Corp Hgb Conc. 34.3 g/dL (33.0-37.0); Mean Corpuscular Volume 87.6 fL (81.0-99.0); Mean Platelet Volume 11.2 fL (7.4-10.4); Platelet Count 348 10^3/uL (130-400); Red Blood Cell Count 2.83 10^6/uL (4.20-5.40); Red Cell Dist. Width 15.1 % (11.5-14.5); White Blood Cell Count 17.2 10^3/uL (4.8-10.8)
--- NOTE | 2024-05-30 09:25 | W.PN.CRS1 ---
Today's Communication / Plan
-
continue low residue diet
await labs
incentive spirometry
dispo planning
Assessment/Plan
-
58-year-old female with PMH of recurrent diverticulitis (multiple episodes over the last 25 years), recent UTI on 04/29 seen in the [place] ED, HTN, DM (on Mounjaro), breast cancer s/p resection and chemo, endometrial cancer s/p LETI/BSO,? Aortic
stent who presented with acute abdominal pain, CT concerning for perforated diverticulitis with flecks of free air around the abdomen; patient initially managed nonoperatively as there was no signs of peritonitis or hemodynamic instability; however,
patient did not improve and a repeat CT scan showed worsening pneumoperitoneum with persistent inflammation of the sigmoid colon
POD 8 Caridad's; postop was on pressors and intubated
Off pressors and extubated by POD2; pRBCx1 given on 05/22 and 05/23
05/27 CT (for bump in WBC) - LUQ collection c/f perisplenic hematoma, expected post-op changes
Tmax 100.1, HR 80-90s
Labs pending
� Continue to trend WBC
� Continue IV Zosyn; BCx - bacterioides 05/19, OR Cx - ecoli ESBL; appreciate ID
� Continue low residue diet
- Reordered I/S- encouraged patient to use
� Continue pain control; recommend adding Tylenol, oxycodone, continue Dilaudid as needed
� Continue subQ heparin for DVT PPx
� Continue ZEKE to bulb suction - will remove prior to discharge
� Appreciate WOCN, will order daily dressing changes by RN
- Appreciate PT - will likely need rehab
� Appreciate hospitalist
- Dispo planning
Subjective Data
Procedure
05/22/2024- 1) exploratory laparotomy 2) Caridad's resection (sigmoidectomy with rectopexy)
Subjective Data
Date of Service: May 30, 2024
Patient states she was a little 'sore' after eating. She has ostomy function. She tolerated low residue food. She denies nausea or vomiting.
Objective Data
-
Vital Signs
Temp Pulse Resp BP Pulse Ox
100.1 F 91 17 167/81 96
05/30/24 08:04 05/30/24 08:22 05/30/24 08:04 05/30/24 08:22 05/30/24 08:04
Intake & Output
05/29/24 05/30/24 05/31/24
06:59 06:59 06:59
Intake Total 2490 / 2490 1920 / 1920
Output Total 80 / 80 440 / 440
Balance 2410 / 2410 1480 / 1480
Intake:
Oral fluids 1480 / 1480 1920 / 1920
IV fluids (Total) 960 / 960
IV piggybacks 50 / 50
Output:
Liquid stool amount 300 / 300
Colostomy 300 / 300
Drain Output (Total) 80 / 80 140 / 140
Right Abdomen 80 / 80 140 / 140
Other:
How many times incontinent 1
MODERATE amount urine
How many times incontinent 2 3
SATURATED amount urine
Lab Results
05/30/24 08:02
Physical Exam
-
General: No Acute Distress and AOx3
Abdomen: Soft, Non Tender and Other (colostomy warm and pink with function, zeke drain serosanginous)
Skin: Warm and Dry
[2024-05-30 09:45] VITALS: BP 166/71
[2024-05-30] MEDS: LASIX 40 MG IV (09:58)
[2024-05-30 10:22] LABS: ALT (SGPT) 19 U/L (0-35); AST (SGOT) 24 U/L (14-36); Albumin 2.4 g/dl (3.5-5.0); Alkaline Phosphatase 78 U/L (38-126); Blood Urea Nitrogen 10 mg/dl (7-17); Calcium 7.6 mg/dl (8.4-10.2); Carbon Dioxide 21 mmol/L (22-30); Chloride 104 mmol/L (98-107); Estimated Creatinine Clearance 92 ml/min; Glucose 121 mg/dl (70-99); Potassium 3.4 mmol/L (3.5-5.1); Sodium 137 mmol/L (135-145); Total Bilirubin 0.7 mg/dl (0.2-1.3); eGFR > 60.00
[2024-05-30 10:37] LABS: % Basophils 0.3 % (0-2); % Eosinophils 1.3 % (0-6); % Immature Granulocytes 1.2 % (0-0.5); % Lymphocytes 8.2 % (20.5-51.1); % Monocytes 5.3 % (1.7-9.3); % Neutrophils 83.7 % (42.2-75.2); Absolute Basophils 0.1 10^3/uL (0-0.2); Absolute Eosinophils 0.2 10^3/uL (0-0.7); Absolute Immature Granulocytes 0.2 10^3/uL (0-0.05); Absolute Lymphocytes 1.4 10^3/uL (1.2-3.4); Absolute Monocytes 0.9 10^3/uL (0.1-0.6); Absolute Neutrophils 13.9 10^3/uL (1.4-6.5); Nucleated Red Blood Cells % 0 %
[2024-05-30 11:17] VITALS: BP 150/63
[2024-05-30 11:51] LABS: Glucose - Point of Care 170 mg/dl (70-99)
--- NOTE | 2024-05-30 12:00 | PTCARENOTE ---
pt refusing to get OOB. Refused PT
[2024-05-30] MEDS: NOVOLOG FLEXPEN-MODERATE RESISTANCE 1 UNITS SC ×2 (12:48→17:49)
--- NOTE | 2024-05-30 13:10 | W.PN.ID1 ---
Date of Service
Date of Service: May 30, 2024
Today's Communication
Continue Zosyn while inpatient. Likely transition to ertapenem at time of discharge.
Assessment / Plan
Diverticulitis with diverticular perforation
- s/p diverting colostomy (05/22/2024).
- Intra-op splenic capsular tear with likely hematoma
Leukocytosis
- ongoing
Recovery of ESBL E. coli from surgery
Bacteroides bacteremia
Low-grade temperatures
HTN
DM
Hx breast CA
Hx endometrial CA
Diverticulitis
Recommendations:
Continue with Zosyn for the present as isolate is susceptible.
Trend white count.
Trend fever curve. Low grade temps may be secondary to hematoma.
- Location of collection is not amenable to IR drainage.
Monitor drain output.
Suspect patient may require course of IV antibiotics following discharge.
����������������������������������������������������������
Chief Complaint
-: Other (Abdominal infection)
Subjective / Review of Systems
Review of Systems: No Fever, No Chills and No Abdominal Pain
Vital Signs / Physical Exam
Vital Signs
Vital Signs
Temp Pulse Resp BP Pulse Ox
100.1 F 91 17 150/63 97
05/30/24 08:04 05/30/24 08:22 05/30/24 08:04 05/30/24 11:17 05/30/24 10:10
Physical Exam
Constitutional: No Acute Distress, Comfortable and Non-toxic
Eyes: Sclera Anicteric
Cardiovascular: S1/S2; Negative S3/S4
Pulmonary: Clear and Non Labored; Negative Wheezes, Rales or Rhonchi
Gastrointestinal: Soft, Non Tender and Other (Ostomy in place)
Extremities: Edema; Negative Cyanosis or Erythema
Neurological: Awake and Alert
Psychological: Calm
Objective Data
Lab Data
Lab Results
05/30/24 08:02
05/30/24 09:05
PT 16.1 Sec (11.4-14.6) H 05/22/24 19:57
INR 1.28 05/22/24 19:57
APTT 28.3 Sec (23.4-35.0) 05/22/24 19:57
Estimated Creat Clear 92 ml/min 05/30/24 09:05
Lactic Acid 1.2 mmol/L (0.7-2.0) 05/20/24 22:09
Total Bilirubin 0.7 mg/dl (0.2-1.3) 05/30/24 09:05
AST 24 U/L (14-36) 05/30/24 09:05
ALT 19 U/L (0-35) 05/30/24 09:05
Alkaline Phosphatase 78 U/L (38-126) 05/30/24 09:05
Most recent labs reviewed.
Micro Results:
05/22/24 08:00 Wound Culture - Final
Abdomen Escherichia coli - ESBL
Gram Stain - Final
05/22/24 08:00 Anaerobic Culture - Final
Abdomen
05/19/24 20:48 Blood Culture - Final
Blood/Venous Bacteroides distasonis
Gram Stain - Final
05/21/24 17:56 Blood Culture - Final
Blood/Venous No Growth - Final Report
Imaging:
05/27/2024 CT abdomen/pelvis with contrast: There is 7 x 8 x 3 cm intermediate density heterogeneous left subdiaphragmatic fluid collection containing a small amount of extraluminal gas. Differential diagnosis for this collection includes hematoma
and abscess. Sigmoidectomy with left lower quadrant colostomy. Moderate ascites including areas of loculated fluid in the abdomen and pelvis. Small left pleural effusion with compressive atelectasis at the posterior left lung base. Please see
full dictation for additional detail.
Care Review
Plan reviewed with: Other Provider (CRS)
--- NOTE | 2024-05-30 13:32 | W.PN.HOSP.TC ---
Today's Communication/Plan
-
IV lasix 40mgx1
abx per ID
f/u renal function/weight
Assessment / Plan
Assessment / Plan
1. Acute sigmoid diverticulitis with perforation
Status post expiratory laparotomy and Barbour procedure on 05/22
-CT scan in ED showing sigmoid diverticulitis with perforation
-Patient underwent elective exploratory laparotomy resection and Caridad procedure
-Postoperatively patient currently off of NGT
-Good brown soft stool output on ostomy bag
-Maintain on LR diet
2. Multifactorial shock -septic/hypovolemic
-This was postoperative requiring vasopressor support
3. Bacteroids distasonis bacteremia
ESBL ecoli peritonitis
-Intraoperative abdominal fluid culture growing ESBL E. coli
-Bacteroides isolated preoperatively on blood culture 1 set, repeat negative
-Currently on Zosyn, ID managing and help appreciated
-Continue to have persistent leukocytosis monitor
4. Acute blood loss anemia
� s/p 2 units this admission
� JODIE drain with dark red serosanguineous drainage
� monitor CBC
5. TIFFANI
AGAP metabolic acidosis
Hyponatremia
-Renal function has normalized
-Sodium back to normal, monitor
6. Acute transaminitis
-Secondary to hypotension/shock, improved
7. IDDM
-Hemoglobin A1c of 7.4
-Patient requiring insulin gtt. support in ICU
-Maintain on and NovoLog with sliding scale
-Diabetic nurse practitioner managing and help appreciated
8. Coarctation of the Aorta
- s/p prior aortic stenting.
- Continue ASA. Will continue to monitor blood pressure.
9. Sacral Pressure injury stage I
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
10. Iatrogenic volume overload
-provide IV lasix 40mg . will provide repeat dose tomorrow
DVT Prophylaxis: Heparin subq
Code Status: Full
Anticipated Discharge: > 48 hours
Subjective/Interval History
-
Date of Service: May 30, 2024
no new complains overnight
denies of having any problems
Objective Data
-
Labs:
Laboratory Results
05/30/24 05/30/24
08:02 09:05
WBC 17.2 H
Hgb 8.5 L
Hct 24.8 L
Plt Count 348
Sodium Cancelled 137
Potassium Cancelled 3.4 L
Chloride Cancelled 104
Carbon Dioxide Cancelled 21 L
BUN Cancelled 10
Creatinine Cancelled 0.8
Glucose Cancelled 121 H
Calcium Cancelled 7.6 L
Total Bilirubin Cancelled 0.7
AST Cancelled 24
ALT Cancelled 19
Alkaline Phosphatase Cancelled 78
Vital Signs:
Vital Signs
Temp Pulse Resp BP Pulse Ox
100.1 F 91 17 150/63 97
05/30/24 08:04 05/30/24 08:22 05/30/24 08:04 05/30/24 11:17 05/30/24 10:10
I&O
05/29/24 05/30/24 05/31/24
06:59 06:59 06:59
Intake Total 2490 / 2490 1920 / 1920
Output Total 80 / 80 440 / 440 90 / 90
Balance 2410 / 2410 1480 / 1480 -90 / -90
Review of Systems
-
Respiratory: Reports No Symptoms
Cardiac: Reports No Symptoms
Abdomen/GI: Reports No Symptoms
Physical Exam
-
General: No Apparent Distress and Comfortable
HEENT: Negative Oxygen
Respiratory: Clear to Auscultation
Cardiac: Regular Rhythm and S1/S2; Negative Murmur or Rub
GI: Soft, Normal Bowel Sounds and Ostomy (Brown stool )
Musculoskeletal: No Edema
Neuro: Awake, Alert, Oriented, No Motor Deficits and Nonfocal/Grossly Intact
Psych: Calm
--- NOTE | 2024-05-30 14:54 | WOUNDNOTE ---
[facility] RN note: Patient's colostomy appliance lifting medially with slight leakage underneath. Stoma pink, flush, mucocutaneous separation medially. Appliance changed using Vineet wafer # [id number], 1/2 Mario seal applied just outside convexity on back
of wafer and 1/2 Mario seal around wafer opening. Instructed patient how to open and close pouch. Patient observed appliance change. Supplies in room. Midline incision dressing changed. Adam intact. Open sections of incision pink. Plan is SNF
rehab when discharged.
--- NOTE | 2024-05-30 14:57 | CM ---
Reviewed the chart notes and spoke with the patient at the bedside. CM asked if the patient had received new insurance information. Patient is still working on it. Should have information by tomorrow afternoon. Referral with [facility] sent to area
SNFs. CM continues to be available to patient/family and is monitoring medical plan for needs at discharge.
Plan: Discharge to SNF/rehab prior to transitioning back to home.
[2024-05-30 15:00] VITALS: BP 153/66
--- NOTE | 2024-05-30 15:30 | WOUNDNOTE ---
WO RN note: Patient incontinent of copious amount of urine. Patient turned with help from PCT Shellie who provided mac care. Center sacrum with faint purple ecchymotic area suspect will be a stage 2 pressure injury more so than a DTI. Bilateral
sacral/buttocks with abraded skin stage 2 (L>R). HARMONY Rosa reports patient has not been cooperative with moving and getting out of bed. She cannot turn self in bed. She stated now that she feels less swollen, she will be able to move more. Appetite
good. Skin on heels intact. Silicone border foam applied to sacral/buttocks. Waffle air overlay applied with help from PCT. Heels off bed with pillow. Updated HAROMNY Rosa and Dr. Church. Dr. Church approved local care. Care plan and discharge
instructions to be updated. Will follow as needed.
--- NOTE | 2024-05-30 16:25 | WOUNDNOTE ---
WOC RN note: Viet Angel re: recommend air mattress at SNF. She developed a stage 2 sacral pressure injury.
[2024-05-30 17:01] LABS: Glucose - Point of Care 166 mg/dl (70-99)
[2024-05-30 21:38] LABS: Glucose - Point of Care 169 mg/dl (70-99)
--- NOTE | 2024-05-31 03:47 | PTCARENOTE ---
discussed with patient need to move in bed and change position. attempted to rotate patient's position but patient is refusing. states she is not comfortable on a tilt. pt placed on lt tilt supported with pillow. Pt very upset states 'how can anyone
sleep like this' I need to be on my back. pt repositions herself to be on her back. pt incontinent of copious amounts of urine, purewick not working and removed around 2100. pt unaware that she was lying in saturated pads.Inst patient to call to use
bedpan, patient states 'I can not wait for help, i will just go on the pad' Inst pt on reason behind changing position and using bedpan d/t skin breakdown, pt remains uncooperative with moving.
[2024-05-31] MEDS: ZOSYN 100 IV ×4 (05:11→23:27)
[2024-05-31 06:00] VITALS: BMI 37.7
[2024-05-31 07:45] VITALS: BP 169/75
--- NOTE | 2024-05-31 07:47 | PN.DE.MGMTRT ---
Insulin Management
- -
05/31/2024 Diabetes Management F/U:
Patient admitted 05/19 with acute sigmoid diverticulitis with perforation. PMH endometrial CA, breast CA, HTN, HCL, steroid induced diabetes. Prior to admission was taking 19 units NovoLog AC with Mounjaro 2.[address] Cordova
and Omer Ndiaye PA-c at [facility]. Recently was started on Mounjaro and Jardiance and had frequent low blood sugars. She states she could not get an appointment with Omer so she called her primary doctor who told her to stop Lantus and
Jardiance due to hypoglycemia. A1C is 7.4, Cr 1.5, eGFR 39.65.
Patient is awake and alert, extubated 05/23, transitioned off of glycemic protocol 05/25, able to discuss diabetes management.
POD# 10. 05/31 premeal Glucose stable and in range of 123 to 170,
Will make no changes to current regimen: Continue NovoLog 4 units AC with moderate corrective, Jardiance 10 mg daily and Lantus 8 units in AM.
Discussed with patient and nurse.
Diabetes History
- -
Type of Diabetes: 2 requiring insulin
Pre-Admission Diabetes Regimen
05/30/24 05/30/24
08:02 09:05
Creatinine Cancelled 0.8
Lab Results
Hemoglobin A1c 7.4 % (4.0-5.6) H 05/20/24 05:23
Insulin Pump Settings
IP Diabetes Regimen
05/30/24 05/30/24 05/30/24
08:02 08:14 09:05
Glucose Cancelled 121 H
POC Glucose 123 H
05/30/24 05/30/24 05/30/24
11:50 17:00 21:38
Glucose
POC Glucose 170 H 166 H 169 H
Meal type: Lunch
Meal type: Breakfast
Amount consumed: 80%
Amount consumed: 100%
Patient Education
[2024-05-31 08:40] LABS: Glucose - Point of Care 147 mg/dl (70-99)
[2024-05-31] MEDS: NOVOLOG FLEXPEN 4 UNITS SC ×3 (09:38→18:04)
[2024-05-31] MEDS: LANTUS 0.08 UNITS SC (09:40)
[2024-05-31] MEDS: NOVOLOG FLEXPEN-MODERATE RESISTANCE SC (09:40)
[2024-05-31] MEDS: LOW STRENGTH ASPIRIN 81 MG PO (09:41)
[2024-05-31] MEDS: HEPARIN 5000 UNITS SC ×3 (09:41→23:22)
[2024-05-31] MEDS: FARXIGA 10 MG PO (09:41)
[2024-05-31] MEDS: LOPRESSOR 25 MG PO ×2 (09:41→20:22)
[2024-05-31] MEDS: COZAAR 50 MG PO ×2 (09:42→20:22)
[2024-05-31] MEDS: NORVASC 10 MG PO (09:43)
[2024-05-31] MEDS: NSS (PRESERVATIVE FREE) 10 ML IV (09:43)
[2024-05-31] MEDS: PROTONIX IV 40 MG IV (09:43)
[2024-05-31] MEDS: ROXICODONE 5 MG PO ×2 (10:02→18:05)
[2024-05-31 10:07] LABS: % Basophils 0.3 % (0-2); % Eosinophils 1.1 % (0-6); % Immature Granulocytes 0.9 % (0-0.5); % Lymphocytes 8.1 % (20.5-51.1); % Monocytes 6.8 % (1.7-9.3); % Neutrophils 82.8 % (42.2-75.2); Absolute Basophils 0.1 10^3/uL (0-0.2); Absolute Eosinophils 0.2 10^3/uL (0-0.7); Absolute Immature Granulocytes 0.2 10^3/uL (0-0.05); Absolute Lymphocytes 1.4 10^3/uL (1.2-3.4); Absolute Monocytes 1.2 10^3/uL (0.1-0.6); Absolute Neutrophils 14.2 10^3/uL (1.4-6.5); Hematocrit 26.6 % (37.0-47.0); Hemoglobin 8.9 g/dL (12.0-16.0); Mean Corp Hgb Conc. 33.5 g/dL (33.0-37.0); Mean Corpuscular Hgb 30.1 pg (27.0-31.0); Mean Corpuscular Volume 89.9 fL (81.0-99.0); Mean Platelet Volume 11.2 fL (7.4-10.4); Nucleated Red Blood Cells % 0 %; Platelet Count 356 10^3/uL (130-400); Red Blood Cell Count 2.96 10^6/uL (4.20-5.40); Red Cell Dist. Width 15.3 % (11.5-14.5); White Blood Cell Count 17.1 10^3/uL (4.8-10.8)
--- NOTE | 2024-05-31 10:29 | W.PN.CRS1 ---
Today's Communication / Plan
-
trend wbc
abx
continue diet
Assessment/Plan
-
58-year-old female with PMH of recurrent diverticulitis (multiple episodes over the last 25 years), recent UTI on 04/29 seen in the [place] ED, HTN, DM (on Mounjaro), breast cancer s/p resection and chemo, endometrial cancer s/p LETI/BSO,? Aortic
stent who presented with acute abdominal pain, CT concerning for perforated diverticulitis with flecks of free air around the abdomen; patient initially managed nonoperatively as there was no signs of peritonitis or hemodynamic instability; however,
patient did not improve and a repeat CT scan showed worsening pneumoperitoneum with persistent inflammation of the sigmoid colon
POD 9 Caridad's; postop was on pressors and intubated
Off pressors and extubated by POD2; pRBCx1 given on 05/22 and 05/23
05/27 CT (for bump in WBC) - LUQ collection c/f perisplenic hematoma, expected post-op changes
Tmax 100.1, HR 80-90s
WBC 17.1 from 17.2
� Continue to trend WBC
� Continue IV Zosyn; BCx - bacterioides 05/19, OR Cx - ecoli ESBL; appreciate ID
� Continue low residue diet
- Reordered I/S- encouraged patient to use
� Continue pain control; recommend adding Tylenol, oxycodone, continue Dilaudid as needed
� Continue subQ heparin for DVT PPx
� Continue ZEKE to bulb suction - will remove prior to discharge
� Appreciate WOCN, will order daily dressing changes by RN
- Appreciate PT - will likely need rehab
� Appreciate hospitalist
- Dispo planning, wound vincent will be removed prior to discharge
- Will consult ortho given knee problems
Subjective Data
Procedure
05/22/2024- 1) exploratory laparotomy 2) Caridad's resection (sigmoidectomy with rectopexy)
Subjective Data
Date of Service: May 31, 2024
Patient states she feels 'sore'. She has complaints about her food. Otherwise, she has been tolerating a diet. She has no nausea or vomiting. Her colostomy has function.
Objective Data
-
Vital Signs
Temp Pulse Resp BP Pulse Ox
98.2 F 88 22 169/75 94
05/31/24 07:45 05/31/24 09:43 05/31/24 07:45 05/31/24 09:43 05/31/24 07:45
Intake & Output
05/30/24 05/31/24 06/01/24
06:59 06:59 06:59
Intake Total 1920 / 1920 920 / 920
Output Total 440 / 440 120 / 120
Balance 1480 / 1480 800 / 800
Intake:
Oral fluids 0 / 0 720 / 720
IV piggybacks 200 / 200
Output:
Liquid stool amount 300 / 300 50 / 50
Colostomy 300 / 300 50 / 50
Drain Output (Total) 140 / 140 70 / 70
Right Abdomen 140 / 140 70 / 70
Other:
How many times incontinent 3 3
SATURATED amount urine
Lab Results
05/31/24 09:53
05/30/24 09:05
Physical Exam
-
General: No Acute Distress and AOx3
Abdomen: Soft, Non Distended, Tender and Other (colostomy warm and pink with output, zeke drain with serosanginous output)
Skin: Warm and Dry
Wound: Dressing in Place
[2024-05-31 12:11] LABS: Glucose - Point of Care 183 mg/dl (70-99)
[2024-05-31 12:12] VITALS: BP 139/58
[2024-05-31] MEDS: NOVOLOG FLEXPEN-MODERATE RESISTANCE 1 UNITS SC ×2 (12:34→18:05)
--- NOTE | 2024-05-31 14:40 | W.PN.HOSP.TC ---
Today's Communication/Plan
-
provide dose of lasix
activity as tolerated
Assessment / Plan
Assessment / Plan
1. Acute sigmoid diverticulitis with perforation
Status post expiratory laparotomy and Barbour procedure on 05/22
-CT scan in ED showing sigmoid diverticulitis with perforation
-Patient underwent elective exploratory laparotomy resection and Caridad procedure
-Postoperatively patient currently off of NGT
-Good brown soft stool output on ostomy bag
-Maintain on LR diet
2. Multifactorial shock -septic/hypovolemic
-This was postoperative requiring vasopressor support
3. Bacteroids distasonis bacteremia
ESBL ecoli peritonitis
-Intraoperative abdominal fluid culture growing ESBL E. coli
-Bacteroides isolated preoperatively on blood culture 1 set, repeat negative
-Currently on Zosyn, ID managing and help appreciated
-Continue to have persistent leukocytosis monitor
4. Acute blood loss anemia
-s/p 2 units this admission
-JODIE drain with dark red serosanguineous drainage
-monitor CBC
5. TIFFANI
AGAP metabolic acidosis
Hyponatremia
-Renal function has normalized
-Sodium back to normal, monitor
6. Acute transaminitis
-Secondary to hypotension/shock, improved
7. IDDM
-Hemoglobin A1c of 7.4
-Patient requiring insulin gtt. support in ICU
-Maintain on and NovoLog with sliding scale
-Diabetic nurse practitioner managing and help appreciated
8. Coarctation of the Aorta
- s/p prior aortic stenting.
- Continue ASA. Will continue to monitor blood pressure.
9. Sacral Pressure injury stage I
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
10. Iatrogenic volume overload
-repeat dose of IV lasix 40mg given
DVT Prophylaxis: Heparin subq
Code Status: Full
Patient have macerated sacral skin. Patient remains incontinent and needing diuretic to help volume optimized. Unfortunately patient not willing to work with nursing staff to get up and do any kind of activity. Patient is planned for skilled
nursing facility for rehab.
Anticipated Discharge: 24 - 48 hours
Subjective/Interval History
-
Date of Service: May 31, 2024
Patient concerned about getting up for voiding.
no significant abd pain/nausea/vomiting overnight
good output from stomy bag
Objective Data
-
Labs:
Laboratory Results
05/31/24
09:53
WBC 17.1 H
Hgb 8.9 L
Hct 26.6 L
Plt Count 356
Vital Signs:
Vital Signs
Temp Pulse Resp BP Pulse Ox
98.2 F 79 22 139/58 94
05/31/24 07:45 05/31/24 12:12 05/31/24 07:45 05/31/24 12:12 05/31/24 07:45
I&O
05/30/24 05/31/24 06/01/24
06:59 06:59 06:59
Intake Total 1920 / 1920 920 / 920
Output Total 440 / 440 120 / 120
Balance 1480 / 1480 800 / 800
Review of Systems
-
Respiratory: Reports No Symptoms
Cardiac: Reports No Symptoms
Abdomen/GI: Reports No Symptoms
Physical Exam
-
General: No Apparent Distress and Comfortable
HEENT: Negative Oxygen
Respiratory: Clear to Auscultation
Cardiac: Regular Rhythm and S1/S2; Negative Murmur or Rub
GI: Soft, Normal Bowel Sounds and Ostomy (Brown stool )
Musculoskeletal: No Edema
Neuro: Awake, Alert, Oriented, No Motor Deficits and Nonfocal/Grossly Intact
Psych: Calm
--- NOTE | 2024-05-31 15:25 | CM ---
Reviewed the chart notes and spoke with the patient at the bedside. The patient continues with attempting to obtain insurance information. She did make a payment for this month with help of a [facility] staff member. Neri Hager interested in
patient. They will need to run the medications that patient is on. CM continues to be available to patient/family and is monitoring medical plan for needs at discharge.
Plan: Discharge to SNF/rehab once medically stable and a bed found and precert obtained.
[2024-05-31] MEDS: LASIX 40 MG IV (15:41)
[2024-05-31 15:43] VITALS: BP 123/63; PULSE 96
[2024-05-31 15:53] VITALS: BP 118/69
[2024-05-31 17:07] LABS: Glucose - Point of Care 164 mg/dl (70-99)
[2024-05-31 20:16] VITALS: BP 160/82
[2024-05-31 21:26] LABS: Glucose - Point of Care 154 mg/dl (70-99)
[2024-05-31 23:26] VITALS: BP 146/66
[2024-06-01] MEDS: ROXICODONE 5 MG PO ×3 (03:13→17:04)
[2024-06-01] MEDS: ZOSYN 100 IV (05:18)
[2024-06-01 05:46] VITALS: BMI 36.4
[2024-06-01 07:30] VITALS: BP 156/71
[2024-06-01 07:43] LABS: Glucose - Point of Care 135 mg/dl (70-99)
[2024-06-01] MEDS: NOVOLOG FLEXPEN 4 UNITS SC ×3 (08:15→17:03)
[2024-06-01] MEDS: NOVOLOG FLEXPEN-MODERATE RESISTANCE SC (08:15)
[2024-06-01] MEDS: LANTUS 0.08 UNITS SC (08:15)
[2024-06-01] MEDS: HEPARIN 5000 UNITS SC ×3 (08:16→23:05)
[2024-06-01] MEDS: COZAAR 50 MG PO ×2 (08:16→20:06)
[2024-06-01] MEDS: NORVASC 10 MG PO (08:17)
[2024-06-01] MEDS: LOPRESSOR 25 MG PO ×2 (08:17→20:06)
[2024-06-01] MEDS: FARXIGA 10 MG PO (08:17)
[2024-06-01] MEDS: PROTONIX 40 MG PO (08:17)
[2024-06-01] MEDS: LOW STRENGTH ASPIRIN 81 MG PO (08:18)
[2024-06-01 08:49] LABS: % Basophils 0.3 % (0-2); % Eosinophils 1.2 % (0-6); % Immature Granulocytes 0.9 % (0-0.5); % Lymphocytes 8.4 % (20.5-51.1); % Monocytes 6.7 % (1.7-9.3); % Neutrophils 82.5 % (42.2-75.2); Absolute Basophils 0.1 10^3/uL (0-0.2); Absolute Eosinophils 0.2 10^3/uL (0-0.7); Absolute Immature Granulocytes 0.2 10^3/uL (0-0.05); Absolute Lymphocytes 1.4 10^3/uL (1.2-3.4); Absolute Monocytes 1.1 10^3/uL (0.1-0.6); Absolute Neutrophils 13.6 10^3/uL (1.4-6.5); Hematocrit 24.5 % (37.0-47.0); Hemoglobin 8.3 g/dL (12.0-16.0); Mean Corp Hgb Conc. 33.9 g/dL (33.0-37.0); Mean Corpuscular Hgb 29.5 pg (27.0-31.0); Mean Corpuscular Volume 87.2 fL (81.0-99.0); Mean Platelet Volume 10.9 fL (7.4-10.4); Nucleated Red Blood Cells % 0 %; Platelet Count 394 10^3/uL (130-400); Red Blood Cell Count 2.81 10^6/uL (4.20-5.40); Red Cell Dist. Width 15.3 % (11.5-14.5); White Blood Cell Count 16.5 10^3/uL (4.8-10.8)
--- NOTE | 2024-06-01 11:10 | W.PN.ID1 ---
Date of Service
Date of Service: June 01, 2024
Today's Communication
Continue antibiotics. Consolidate to ertapenem.
Assessment / Plan
Diverticulitis with diverticular perforation
- s/p diverting colostomy (05/22/2024).
- Intra-op splenic capsular tear with likely hematoma
Leukocytosis
- ongoing
Recovery of ESBL E. coli from surgery
Bacteroides bacteremia
Low-grade temperatures
HTN
DM
Hx breast CA
Hx endometrial CA
Diverticulitis
Recommendations:
Trend white count.
Trend fever curve. Low grade temps may be secondary to hematoma.
- Location of collection is not amenable to IR drainage.
Monitor drain output.
Patient will likely need a prolonged course of IV antibiotics (>= 2 weeks) as it is unclear whether hematoma is infected or not.
Consolidate to once daily ertapenem.
����������������������������������������������������������
Chief Complaint
-: Other (Abdominal infection)
Subjective / Review of Systems
Review of Systems: No Fever and No Chills
Vital Signs / Physical Exam
Vital Signs
Vital Signs
Temp Pulse Resp BP Pulse Ox
98.7 F 86 16 156/71 95
06/01/24 07:30 06/01/24 08:17 06/01/24 07:30 06/01/24 08:17 06/01/24 07:30
Physical Exam
Constitutional: No Acute Distress, Comfortable and Non-toxic
Eyes: Sclera Anicteric
Cardiovascular: S1/S2; Negative S3/S4
Pulmonary: Clear and Non Labored; Negative Wheezes, Rales or Rhonchi
Gastrointestinal: Soft, Non Tender and Other (Ostomy in place)
Extremities: Edema; Negative Cyanosis or Erythema
Neurological: Awake and Alert
Psychological: Calm
Objective Data
Lab Data
Lab Results
06/01/24 08:42
05/30/24 09:05
PT 16.1 Sec (11.4-14.6) H 05/22/24 19:57
INR 1.28 05/22/24 19:57
APTT 28.3 Sec (23.4-35.0) 05/22/24 19:57
Estimated Creat Clear 92 ml/min 05/30/24 09:05
Lactic Acid 1.2 mmol/L (0.7-2.0) 05/20/24 22:09
Total Bilirubin 0.7 mg/dl (0.2-1.3) 05/30/24 09:05
AST 24 U/L (14-36) 05/30/24 09:05
ALT 19 U/L (0-35) 05/30/24 09:05
Alkaline Phosphatase 78 U/L (38-126) 05/30/24 09:05
Most recent labs reviewed.
Micro Results:
05/22/24 08:00 Wound Culture - Final
Abdomen Escherichia coli - ESBL
Gram Stain - Final
05/22/24 08:00 Anaerobic Culture - Final
Abdomen
05/19/24 20:48 Blood Culture - Final
Blood/Venous Bacteroides distasonis
Gram Stain - Final
05/21/24 17:56 Blood Culture - Final
Blood/Venous No Growth - Final Report
Imaging:
05/27/2024 CT abdomen/pelvis with contrast: There is 7 x 8 x 3 cm intermediate density heterogeneous left subdiaphragmatic fluid collection containing a small amount of extraluminal gas. Differential diagnosis for this collection includes hematoma
and abscess. Sigmoidectomy with left lower quadrant colostomy. Moderate ascites including areas of loculated fluid in the abdomen and pelvis. Small left pleural effusion with compressive atelectasis at the posterior left lung base. Please see
full dictation for additional detail.
--- NOTE | 2024-06-01 11:18 | CON.ORTHO ---
Consultation - Orthopedics
History
HPI: 58-year-old history of bilateral knee osteoarthritis presented to the emergency department complaints abdominal pain. She subsequently found to have acute sigmoid diverticulitis with subsequent perforation underwent exploratory laparotomy and
Barbour's procedure. During her recovery she has been complaining of bilateral knee pain. The colorectal service reached out to orthopedics to have her knee pain evaluated. This morning patient reports that she has longstanding history of
bilateral knee pain. She is followed with multiple providers on outpatient basis for her knee osteoarthritis. She most recently underwent bilateral intra-articular corticosteroid injections about 3 weeks ago. She is also undergone
viscosupplementation injections in the past. She has plans to pursue total knee arthroplasty procedures with [facility]. She reports no significantly increased knee pain but does report continued pain and stiffness with ambulatory Alesia.
She has used a motorized scooter for longer distances in the past.
Allergies / Home Medications
Past medical history: Hypertension, type 2 diabetes, obesity, coarctation of the aorta, breast cancer status postmastectomy and chemotherapy, diverticular disease
Past surgical history: Exploratory laparotomy, Barbour's procedure, bilateral mastectomy, LETI, , aortic stent placement
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
Family history: Not pertinent
Allergy/AdvReac Type Severity Reaction Status Date / Time
diphtheria, pertussis, Allergy Unknown Verified 05/19/24 19:20
tetanus vacc
gentamicin Allergy Hearing Verified 05/28/24 17:40
loss
�Medication �Instructions �Recorded
amlodipine 10 mg tablet 10 mg PO DAILY Blood pressure 09/02/20
cholecalciferol (vitamin D3) 50 2,000 units PO DAILY@1000 09/02/20
mcg (2,000 unit) tablet Supplement
multivitamin with folic acid 400 1 tab PO DAILY@1000 Supplement 09/02/20
mcg tablet (Tab-A-Sherley)
insulin aspart U-100 100 unit/mL 19 units SC AC Diabetes 12/18/21
(3 mL) subcutaneous pen (Novolog
FlexPen U-100 Insulin aspart)
rosuvastatin 20 mg tablet 30 mg PO QPM High cholesterol 12/18/21
losartan 50 mg tablet 50 mg PO BID #60 tabs 12/20/21
metoprolol tartrate 25 mg tablet 25 mg PO BID #60 tabs 12/20/21
amoxicillin 875 mg-potassium 1 tab PO BID 7 days #14 tabs 11/11/22
clavulanate 125 mg tablet
aspirin 81 mg chewable tablet 81 mg PO DAILY Blood Clot 05/20/24
Prevention/Tx
empagliflozin 10 mg tablet 10 mg PO DAILY Diabetes 05/20/24
(Jardiance)
tirzepatide 2.5 mg/0.5 mL 2.5 mg SC QWEEK Diabetes 05/20/24
subcutaneous pen injector
(Mounjaro)
Vital Signs / Lab Results
Temp Pulse Resp BP Pulse Ox
98.7 F 86 16 156/71 95
06/01/24 07:30 06/01/24 08:17 06/01/24 07:30 06/01/24 08:17 06/01/24 08:00
06/01/24 08:42
05/30/24 09:05
10 point review systems reviewed and negative unless otherwise stated
General: Pleasant, no acute distress at rest
Musculoskeletal bilateral lower extremities
Skin intact, no erythema overlying knees, no clinical palpable knee effusion bilaterally
Knee range of motion about 5 to 100 degrees right knee
0 to 100 degrees left knee
No gross instability varus valgus stress
Palpable crepitation flexion-extension
There is joint line tenderness both medial lateral bilaterally
No gross motor or sensory deficits distally
Diagnostic studies
X-rays bilateral knees independently reviewed by myself radiology report also reviewed. Diffuse tricompartmental joint space narrowing marginal osteophyte subchondral sclerosis noted bilaterally
Assessment / Plan
58-year-old female recent exploratory laparotomy Caridad procedure with bilateral knee pain secondary to bilateral knee osteoarthritis. I had a long discussion the patient. She does have multiple providers that she follows with on an outpatient
basis. She is planning on pursuing total knee arthroplasty with [facility]. Would not recommend any intervention during this hospitalization. Continue to mobilize work with therapy as tolerated. Certainly can follow-up with her previously
established providers on outpatient basis to discuss ongoing treatment for her bilateral knee osteoarthritis. Please reach out any questions or concerns.
[2024-06-01 12:08] LABS: Glucose - Point of Care 188 mg/dl (70-99)
--- NOTE | 2024-06-01 12:24 | W.PN.CRS1 ---
Today's Communication / Plan
-
as below
Assessment/Plan
-
58-year-old female with PMH of recurrent diverticulitis (multiple episodes over the last 25 years), recent UTI on 04/29 seen in the [place] ED, HTN, DM (on Mounjaro), breast cancer s/p resection and chemo, endometrial cancer s/p LETI/BSO,? Aortic
stent who presented with acute abdominal pain, CT concerning for perforated diverticulitis with flecks of free air around the abdomen; patient initially managed nonoperatively as there was no signs of peritonitis or hemodynamic instability; however,
patient did not improve and a repeat CT scan showed worsening pneumoperitoneum with persistent inflammation of the sigmoid colon
POD10 Caridad's; postop was on pressors and intubated
Off pressors and extubated by POD2; pRBCx1 given on 05/22 and 05/23
05/27 CT (for bump in WBC) - LUQ collection c/f perisplenic hematoma, expected post-op changes
AFVSS
WBC 16.5 from 16.1, Hb stable
�CT with perisplenic collection, likely hematoma; discussed with IR, not easily drainable, not overly concerned for abscess; holding off on IR drainage
- appreciate ID; switch to IV erta
� Continue for low residue
� Continue pain control; recommend adding Tylenol, oxycodone, continue Dilaudid as needed
� Continue subQ heparin for DVT PPx
� Continue JODIE to bulb suction; plan to remove prior to discharge
� Appreciate WOCN
- Appreciate PT� recommending rehab for discharge
� Appreciate hospitalist
Dispo� rehab planning; likely in 1-2 days
Subjective Data
Procedure
05/22/2024- 1) exploratory laparotomy 2) Caridad's resection (sigmoidectomy with rectopexy)
Subjective Data
Date of Service: June 01, 2024
No overnight events.
Pain controlled.
Denies nausea/vomiting. Tolerating diet.
+ Ostomy function +voiding
Objective Data
-
Vital Signs
Temp Pulse Resp BP Pulse Ox
98.7 F 86 16 156/71 95
06/01/24 07:30 06/01/24 08:17 06/01/24 07:30 06/01/24 08:17 06/01/24 08:00
Intake & Output
05/31/24 06/01/24 06/02/24
06:59 06:59 06:59
Intake Total 920 / 920 2220 / 2220
Output Total 120 / 120 265 / 265
Balance 800 / 800 1954 / 1954
Intake:
Oral fluids 720 / 720 0 / 1920
IV piggybacks 200 / 200 300 / 300
Output:
Liquid stool amount 50 / 50 160 / 160
Colostomy 50 / 50 160 / 160
Drain Output (Total) 70 / 70 105 / 105
Right Abdomen 70 / 70 105 / 105
Other:
How many times incontinent 3 4
SATURATED amount urine
Lab Results
06/01/24 08:42
05/30/24 09:05
Physical Exam
-
General: No Acute Distress and AOx3
HEENT: Grossly Normal
Abdomen: Soft, Non Distended, Tender (Appropriately tender near midline incision and ostomy), No Guarding, No Rebound and Other (JODIE with 105 mL serosanguineous, ostomy dark pink with mucosal sloughing, productive of liquid stool)
Neurological: No Motor Deficits and No Sensory Deficits
Skin: Warm and Dry
Wound: No Signs of Infection, Dressing in Place, No Skin Erythema and Other (No purulent drainage, intermittent merari gaps granulating)
[2024-06-01] MEDS: LASIX 40 MG IV (12:50)
[2024-06-01] MEDS: INVANZ 60 MG IV (12:57)
[2024-06-01] MEDS: NOVOLOG FLEXPEN-MODERATE RESISTANCE 1 UNITS SC ×2 (12:58→17:04)
--- NOTE | 2024-06-01 13:03 | W.PN.HOSP.TC ---
Today's Communication/Plan
-
abx changed by ID
CRS input noted
Discharge planning for snf rehab
Assessment / Plan
Assessment / Plan
1. Acute sigmoid diverticulitis with perforation
Status post expiratory laparotomy and Barbour procedure on 05/22
-CT scan in ED showing sigmoid diverticulitis with perforation
-Patient underwent elective exploratory laparotomy resection and Caridad procedure
-Postoperatively patient currently off of NGT
-Good brown soft stool output on ostomy bag
-Maintain on LR diet
2. Multifactorial shock -septic/hypovolemic
-This was postoperative requiring vasopressor support
3. Bacteroids distasonis bacteremia
ESBL ecoli peritonitis
Perisplenic hematoma
-Intraoperative abdominal fluid culture growing ESBL E. coli
-Bacteroides isolated preoperatively on blood culture 1 set, repeat negative
-Continue to have persistent leukocytosis monitor
-Abx have changed to Invanz by ID today.
-Question of hematoma near spleen being infected although not amenable to IRAD drainage. ID recommended 2 weeks of empiric Invanz therapy.
4. Acute blood loss anemia
-s/p 2 units this admission
-JODIE drain with dark red serosanguineous drainage
-monitor CBC
5. TIFFANI
AGAP metabolic acidosis
Hyponatremia
-Renal function has normalized
-Sodium back to normal, monitor
6. Acute transaminitis
-Secondary to hypotension/shock, improved
7. IDDM
-Hemoglobin A1c of 7.4
-Patient requiring insulin gtt. support in ICU
-Maintain on and NovoLog with sliding scale
-Diabetic nurse practitioner managing and help appreciated
8. Coarctation of the Aorta
- s/p prior aortic stenting.
- Continue ASA. Will continue to monitor blood pressure.
9. Sacral Pressure injury stage I
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
10. Iatrogenic volume overload
-Slowly improving. Provide IV Lasix 40 mg again today -dose x3.
DVT Prophylaxis: Heparin subq
Code Status: Full
Patient son at bedside and care plan discussed.
Anticipated Discharge: 24 - 48 hours
Subjective/Interval History
-
Date of Service: June 01, 2024
Resting comfortably in bed
Minimal left-sided abdominal discomfort, no nausea or vomiting
Afebrile and night
Good brownish soft stool output in stoma bag
No other acute issues reported overnight
Objective Data
-
Labs:
Laboratory Results
06/01/24
08:42
WBC 16.5 H
Hgb 8.3 L
Hct 24.5 L
Plt Count 394
Vital Signs:
Vital Signs
Temp Pulse Resp BP Pulse Ox
98.7 F 86 16 157/75 95
06/01/24 07:30 06/01/24 08:17 06/01/24 07:30 06/01/24 12:50 06/01/24 08:00
I&O
05/31/24 06/01/24 06/02/24
06:59 06:59 06:59
Intake Total 920 / 920 2220 / 2220
Output Total 120 / 120 265 / 265
Balance 800 / 800 1954 / 1954
Review of Systems
-
Respiratory: Reports No Symptoms
Cardiac: Reports No Symptoms
Abdomen/GI: Reports No Symptoms
Physical Exam
-
General: No Apparent Distress and Comfortable
HEENT: Negative Oxygen
Respiratory: Clear to Auscultation
Cardiac: Regular Rhythm and S1/S2; Negative Murmur or Rub
GI: Soft, Normal Bowel Sounds and Ostomy (Brown stool )
Musculoskeletal: No Edema
Neuro: Awake, Alert, Oriented, No Motor Deficits and Nonfocal/Grossly Intact
Psych: Calm
[2024-06-01 15:30] VITALS: BP 113/78
[2024-06-01] MEDS: TYLENOL 650 MG PO ×2 (15:34→22:20)
[2024-06-01 16:57] LABS: Glucose - Point of Care 174 mg/dl (70-99)
[2024-06-01 20:02] VITALS: BP 144/71
[2024-06-01 22:10] LABS: Glucose - Point of Care 184 mg/dl (70-99)
[2024-06-01] MEDS: KCL 20 MEQ PO (22:20)
[2024-06-01 23:18] VITALS: BP 155/76
[2024-06-02] MEDS: ROXICODONE 5 MG PO ×3 (05:39→22:30)
[2024-06-02 06:00] VITALS: BMI 38.0
[2024-06-02 07:19] LABS: % Basophils 0.3 % (0-2); % Eosinophils 1.2 % (0-6); % Immature Granulocytes 0.9 % (0-0.5); % Lymphocytes 9.9 % (20.5-51.1); % Monocytes 7.9 % (1.7-9.3); % Neutrophils 79.8 % (42.2-75.2); Absolute Eosinophils 0.2 10^3/uL (0-0.7); Absolute Immature Granulocytes 0.1 10^3/uL (0-0.05); Absolute Lymphocytes 1.2 10^3/uL (1.2-3.4); Absolute Neutrophils 9.6 10^3/uL (1.4-6.5); Hematocrit 22.2 % (37.0-47.0); Hemoglobin 7.5 g/dL (12.0-16.0); Mean Corp Hgb Conc. 33.8 g/dL (33.0-37.0); Mean Corpuscular Hgb 30.4 pg (27.0-31.0); Mean Corpuscular Volume 89.9 fL (81.0-99.0); Mean Platelet Volume 11.4 fL (7.4-10.4); Nucleated Red Blood Cells % 0 %; Platelet Count 363 10^3/uL (130-400); Red Blood Cell Count 2.47 10^6/uL (4.20-5.40); Red Cell Dist. Width 15.1 % (11.5-14.5); White Blood Cell Count 12.1 10^3/uL (4.8-10.8)
[2024-06-02 07:45] VITALS: BP 160/76
[2024-06-02 07:46] LABS: Glucose - Point of Care 161 mg/dl (70-99)
[2024-06-02] MEDS: LANTUS 0.08 UNITS SC (08:16)
[2024-06-02] MEDS: LOW STRENGTH ASPIRIN 81 MG PO (08:16)
[2024-06-02] MEDS: PROTONIX 40 MG PO (08:16)
[2024-06-02] MEDS: FARXIGA 10 MG PO (08:16)
[2024-06-02] MEDS: HEPARIN 5000 UNITS SC (08:16)
[2024-06-02] MEDS: COZAAR 50 MG PO ×2 (08:17→20:26)
[2024-06-02] MEDS: LOPRESSOR 25 MG PO (08:18)
[2024-06-02] MEDS: NORVASC 10 MG PO (08:18)
[2024-06-02] MEDS: NOVOLOG FLEXPEN-MODERATE RESISTANCE 1 UNITS SC ×3 (08:18→18:19)
[2024-06-02] MEDS: NOVOLOG FLEXPEN 4 UNITS SC ×3 (08:18→18:19)
[2024-06-02 08:31] LABS: Blood Urea Nitrogen 12 mg/dl (7-17); Calcium 7.2 mg/dl (8.4-10.2); Carbon Dioxide 29 mmol/L (22-30); Chloride 100 mmol/L (98-107); Estimated Creatinine Clearance 92 ml/min; Glucose 156 mg/dl (70-99); Potassium 3.1 mmol/L (3.5-5.1); Sodium 138 mmol/L (135-145); eGFR > 60.00
--- NOTE | 2024-06-02 08:34 | W.PN.HOSP.TC ---
Addendum entered and electronically signed by Cosmo Church MD 06/02/24 13:38:
I saw and evaluated the patient. I reviewed the resident�s note and agree with findings and plan as documented in the resident�s note.
1. Acute perforated sigmoid diverticulitis status post exploratory laparotomy and Caridad procedure on 05/22 -patient have healthy normally functioning stoma. Have some pain on abdomen. Able to tolerate low residue diet. JODIE drain in place and
CRS to remove possibly before discharge
2. Bacteroides bacteremia/ESBL E. coli peritonitis/perisplenic hematoma -patient antibiotic have been consolidated to Invanz, was on Zosyn. Managed by ID. Patient started having fever again last night. Left upper quadrant collection is not
amenable to IR drainage.
3. Acute blood loss anemia from surgery -currently have good brown stool in stoma bag. Hemoglobin trending down again today. May require 1 Unit of blood transfusion if hemoglobin close to 7 tomorrow.
4. Hypokalemia - replace PRN, K 3.1 today getting 40meq K
5. Iatrogenic volume overload - Got 3 doses of IV lasix, provide further based on clinical need. Patient encouraged to provide standing scale weight
Patient to be discharged SNF/rehab in next 24-48hrs if clinically appropriate.
Original Note:
Today's Communication/Plan
-
half-way facility placement
Assessment / Plan
Assessment / Plan
1. Acute sigmoid diverticulitis with perforation
Status post expiratory laparotomy and Barbour procedure on 05/22
-CT scan in ED showing sigmoid diverticulitis with perforation
-Patient underwent elective exploratory laparotomy resection and Caridad procedure
-Patient postop day 11
-Postoperatively patient currently off of NGT
-Patient has a JODIE drain in, last reading was 30 mL serosanguineous fluid colorectal planning on removing before discharge
-Good brown soft stool output on ostomy bag
-Maintain on LR diet
2. Multifactorial shock -septic/hypovolemic
-Patient previously requiring postop vasopressor support
-Off pressors
3. Bacteroids distasonis bacteremia
ESBL ecoli peritonitis
Perisplenic hematoma
-Intraoperative abdominal fluid culture growing ESBL E. coli
-Bacteroides isolated preoperatively on blood culture 1 set, repeat negative
-Patient had 1 fever reading overnight, 101.6
-Overnight team ordered chest x-ray VSD and UA with culture
-Continue to have persistent leukocytosis, Currently downtrending we will continue to monitor
-Abx have changed to Invanz by ID, Currently day 2
-Question of hematoma near spleen being infected although not amenable to IRAD drainage. ID recommended 2 weeks of empiric Invanz therapy.
4. Acute blood loss anemia
-s/p 2 units this admission
-JODIE drain with dark red serosanguineous drainage, Last output reading was 30 mL
-Patient's hemoglobin down trended from 8.3-7.5
-monitor CBC
5. TIFFANI
AGAP metabolic acidosis
Hyponatremia
-Renal function has normalized
-Sodium back to normal, monitor
-Patient reports polyuria
-Overnight team ordered UA with reflex culture, follow-up on results
6. Acute transaminitis
-Secondary to hypotension/shock, improved
7. IDDM
-Hemoglobin A1c of 7.4
-Patient requiring insulin gtt. support in ICU
-Maintain on and NovoLog with sliding scale
-Diabetic nurse practitioner managing and help appreciated
8. Coarctation of the Aorta
-Systolic murmur heard on exam
- s/p prior aortic stenting.
- Continue ASA. Will continue to monitor blood pressure.
9. Sacral Pressure injury stage I
-case management specialist on board,
10. Iatrogenic volume overload
-Improving, continue IV Lasix
DVT Prophylaxis: Heparin subq
Code Status: Full
Anticipated Discharge: 24 - 48 hours
Subjective/Interval History
-
Date of Service: June 02, 2024
Patient a fever of 101.6 overnight
Patient also reports polyuria overnight providers orderd UA, CXR and VSD
JODIE drain outputting 30 mL serosanguineous fluid.
Objective Data
-
Labs:
Laboratory Results
06/02/24
06:45
WBC 12.1 H
Hgb 7.5 L
Hct 22.2 L
Plt Count 363
Sodium 138
Potassium 3.1 L
Chloride 100
Carbon Dioxide 29
BUN 12
Creatinine 0.8
Glucose 156 H
Calcium 7.2 L
Vital Signs:
Vital Signs
Temp Pulse Resp BP Pulse Ox
98.7 F 95 16 160/76 93
06/02/24 07:45 06/02/24 08:18 06/02/24 07:45 06/02/24 08:18 06/02/24 07:45
I&O
06/01/24 06/02/24 06/03/24
06:59 06:59 06:59
Intake Total 2220 / 2220 1300 / 1300
Output Total 265 / 265 270 / 270
Balance 1954 / 1954 1030 / 1030
Review of Systems
-
History Source: Patient
Constitutional: Reports Fever
Respiratory: Reports No Symptoms
Cardiac: Reports No Symptoms
Abdomen/GI: Reports Abdominal Pain (Patient reports abdominal tenderness diffuse)
Genitourinary: Reports Frequency
Physical Exam
-
General: Well Developed, Well Nourished, Conversant and Morbidly Obese
Respiratory: Clear to Auscultation
Cardiac: Regular Rhythm, S1/S2 and Murmur (Patient reports pmh coarctation of the aorta, systolic murmur heard on exam)
GI: Soft, Nondistended, Normal Bowel Sounds and Tender
Skin: Warm and Dry
Neuro: Awake, Alert, Oriented and AO x 3
Psych: Calm and Intact Judgement/Insight
Data Reviewed
-
Labs: Labs Reviewed by me and Discussed with Physician
--- NOTE | 2024-06-02 08:38 | W.PN.CRS1 ---
Addendum entered and electronically signed by Bello Quiles MD 06/02/24 16:36:
The FINANCIAL AID COUNSELOR's note was reviewed and I agree with the note.
Comment:
Fever overnight, but doing well otherwise. WBC improved today to 12.1. Sent for chest x-ray, UA and duplex. All negative except left basilar consolidation, possible atelectasis, pneumonia and/or pleural effusion
Continue low residue diet, pain control and dvt ppx
Appreciate ID, continue IV ertapenem; continue nonoperative management of left upper quadrant collection
Original Note:
Today's Communication / Plan
-
Fever work up
Assessment/Plan
-
58-year-old female with PMH of recurrent diverticulitis (multiple episodes over the last 25 years), recent UTI on 04/29 seen in the [facility], HTN, DM (on Mounjaro), breast cancer s/p resection and chemo, endometrial cancer s/p LETI/BSO,? Aortic
stent who presented with acute abdominal pain, CT concerning for perforated diverticulitis with flecks of free air around the abdomen; patient initially managed nonoperatively as there was no signs of peritonitis or hemodynamic instability; however,
patient did not improve and a repeat CT scan showed worsening pneumoperitoneum with persistent inflammation of the sigmoid colon
POD 11 Caridad's; postop was on pressors and intubated
OR wound cx with ESBL ecoli, blood with bacteroides
Off pressors and extubated by POD2; pRBCx1 given on 05/22 and 05/23
05/27 CT (for bump in WBC) - LUQ collection c/f perisplenic hematoma, expected post-op changes. discussed with IR, not easily drainable, not overly concerned for abscess; holding off on IR drainage
Febrile overnight to 101.6 with mild tachycardia, BP stable
WBC 12.1 from 16.5
H/H trending down slowly, suspect secondary to fluid shifts
- Given fever overnight will check UA reflex to cx, CXR, and Venous duplex
- ID following and managing abx, changed to Invanz on 06/01
� Continue low residue/ADA diet
� Continue pain control; recommend adding Tylenol, oxycodone, continue Dilaudid as needed
� Continue subQ heparin for DVT PPx
� Continue JODIE to bulb suction; plan to remove prior to discharge
� Appreciate WOCN
- Appreciate PT� recommending rehab for discharge
� Appreciate hospitalist
Subjective Data
Procedure
05/22/2024- 1) exploratory laparotomy 2) Caridad's resection (sigmoidectomy with rectopexy)
Subjective Data
Date of Service: June 02, 2024
Patient seen and examined at bedside. chills then sweats last night correlating with time of fever. Denies n/v. Tolerating diet. Minimal post op discomfort.
Objective Data
-
Vital Signs
Temp Pulse Resp BP Pulse Ox
98.7 F 95 16 160/76 93
06/02/24 07:45 06/02/24 08:18 06/02/24 07:45 06/02/24 08:18 06/02/24 07:45
Intake & Output
06/01/24 06/02/24 06/03/24
06:59 06:59 06:59
Intake Total 2220 / 2220 1300 / 1300
Output Total 265 / 265 270 / 270
Balance 1954 / 1954 1030 / 1030
Intake:
Oral fluids 1920 / 1920 1240 / 1240
IV piggybacks 300 / 300 60 / 60
Output:
Liquid stool amount 160 / 160 240 / 240
Colostomy 160 / 160 240 / 240
Drain Output (Total) 105 / 105 30 / 30
Right Abdomen 105 / 105 30 / 30
Other:
How many times incontinent 4 2
SATURATED amount urine
Lab Results
06/02/24 06:45
06/02/24 06:45
Physical Exam
-
General: No Acute Distress and AOx3
HEENT: Grossly Normal
Abdomen: Soft, Non Distended, Tender (Appropriately tender near midline incision and ostomy), No Guarding, No Rebound and Other (JODIE with 105 mL serosanguineous, ostomy dark pink with mucosal sloughing, productive of liquid stool)
Extremities: Symmetrical Edema (BLLE) and No Calf Tenderness
Neurological: No Motor Deficits and No Sensory Deficits
Skin: Warm and Dry
Wound: No Signs of Infection, Dressing in Place, No Skin Erythema and Other (No purulent drainage, intermittent merari gaps granulating)
[2024-06-02 10:30] LABS: Urine Albumin 1+ (Neg - Trace); Urine Bilirubin Negative (Negative); Urine Character Clear (Clear); Urine Color Yellow; Urine Glucose 3+ (Negative); Urine Ketone Negative (Negative); Urine Leukocyte Negative (Negative); Urine Nitrite Negative (Negative); Urine Occult Blood 2+ (Negative); Urine Urobilinogen Negative (Neg - 1+)
[2024-06-02 10:39] LABS: Urine Squamous Cell >30 /LPF (Few)
[2024-06-02 10:41] LABS: Urine Bacteria Few (Negative)
--- NOTE | 2024-06-02 11:31 | W.PN.ID1 ---
Date of Service
Date of Service: June 02, 2024
Today's Communication
Continue antibiotics.
Assessment / Plan
Diverticulitis with diverticular perforation
- s/p diverting colostomy (05/22/2024).
- Intra-op splenic capsular tear with likely hematoma
Leukocytosis
- ongoing but improved today.
Recovery of ESBL E. coli from surgery
Bacteroides bacteremia
Low-grade temperatures
HTN
DM
Hx breast CA
Hx endometrial CA
Diverticulitis
Recommendations:
Trend white count. Leukocytosis somewhat improved today.
Trend fever curve. Low grade temps may be secondary to hematoma, although etiology of temp to 101 last evening unclear.
Location of collection is not amenable to IR drainage.
Monitor drain output.
Patient will likely need a prolonged course of IV antibiotics (>= 2 weeks) as it is unclear whether hematoma is infected or not.
Continue with ertapenem.
����������������������������������������������������������
Chief Complaint
-: Other (Abdominal infection)
Subjective / Review of Systems
Patient seen and examined. Temperature to 101.6 noted last evening.
Vital Signs / Physical Exam
Vital Signs
Vital Signs
Temp Pulse Resp BP Pulse Ox
98.7 F 95 16 160/76 93
06/02/24 07:45 06/02/24 08:18 06/02/24 07:45 06/02/24 08:18 06/02/24 07:45
Physical Exam
Constitutional: No Acute Distress, Comfortable and Non-toxic
Eyes: Sclera Anicteric
Cardiovascular: S1/S2; Negative S3/S4
Pulmonary: Clear and Non Labored; Negative Wheezes, Rales or Rhonchi
Gastrointestinal: Soft, Non Tender and Other (Ostomy in place)
Extremities: Edema; Negative Cyanosis or Erythema
Neurological: Awake and Alert
Psychological: Calm
Objective Data
Lab Data
Lab Results
06/02/24 06:45
PT 16.1 Sec (11.4-14.6) H 05/22/24 19:57
INR 1.28 05/22/24 19:57
APTT 28.3 Sec (23.4-35.0) 05/22/24 19:57
Estimated Creat Clear 92 ml/min 06/02/24 06:45
Lactic Acid 1.2 mmol/L (0.7-2.0) 05/20/24 22:09
Total Bilirubin 0.7 mg/dl (0.2-1.3) 05/30/24 09:05
AST 24 U/L (14-36) 05/30/24 09:05
ALT 19 U/L (0-35) 05/30/24 09:05
Alkaline Phosphatase 78 U/L (38-126) 05/30/24 09:05
Most recent labs reviewed.
Micro Results:
06/02/24 09:36 Blood Culture - Pending
Blood/Venous
05/22/24 08:00 Wound Culture - Final
Abdomen Escherichia coli - ESBL
Gram Stain - Final
05/22/24 08:00 Anaerobic Culture - Final
Abdomen
05/19/24 20:48 Blood Culture - Final
Blood/Venous Bacteroides distasonis
Gram Stain - Final
05/21/24 17:56 Blood Culture - Final
Blood/Venous No Growth - Final Report
Imaging:
05/27/2024 CT abdomen/pelvis with contrast: There is 7 x 8 x 3 cm intermediate density heterogeneous left subdiaphragmatic fluid collection containing a small amount of extraluminal gas. Differential diagnosis for this collection includes hematoma
and abscess. Sigmoidectomy with left lower quadrant colostomy. Moderate ascites including areas of loculated fluid in the abdomen and pelvis. Small left pleural effusion with compressive atelectasis at the posterior left lung base. Please see
full dictation for additional detail.
[2024-06-02] MEDS: KCL 40 MEQ PO (11:57)
[2024-06-02 12:18] LABS: Glucose - Point of Care 174 mg/dl (70-99)
[2024-06-02] MEDS: INVANZ 60 MG IV (13:00)
[2024-06-02] MEDS: PROCARDIA XL (EXTENDED RELEASE) 30 MG PO ×2 (13:34→20:26)
[2024-06-02 15:39] VITALS: BP 145/64
[2024-06-02 17:58] LABS: Glucose - Point of Care 178 mg/dl (70-99)
[2024-06-02] MEDS: LOVENOX 40 MG SC (18:21)
[2024-06-02 20:15] VITALS: BP 143/63
[2024-06-02] MEDS: DESENEX/MITRAZOL/ZEASORB 1 APPLIC TOPICAL (20:27)
[2024-06-02] MEDS: TYLENOL 650 MG PO (20:27)
[2024-06-02] MEDS: LOPRESSOR 50 MG PO (20:27)
[2024-06-02 21:51] LABS: Glucose - Point of Care 150 mg/dl (70-99)
[2024-06-02 23:26] VITALS: BP 118/55
[2024-06-03] MEDS: ROXICODONE 5 MG PO ×3 (02:37→17:51)
[2024-06-03] MEDS: TYLENOL 650 MG PO ×2 (05:46→22:54)
[2024-06-03 06:00] VITALS: BMI 38.4
--- NOTE | 2024-06-03 07:25 | PN.DE.MGMTRT ---
Insulin Management
- -
06/03/2024: Diabetes Management F/U:
Patient admitted 05/19 with acute sigmoid diverticulitis with perforation. PMH endometrial CA, breast CA, HTN, HCL, steroid induced diabetes. Prior to admission was taking 19 units NovoLog AC with Mounjaro 2.[address] Cordova
and Omer Ndiaye PA-c at [facility]. Recently was started on Mounjaro and Jardiance and had frequent low blood sugars. She states she could not get an appointment with Omer so she called her primary doctor who told her to stop Lantus and
Jardiance due to hypoglycemia. A1C is 7.4, Cr 1.5, eGFR 39.65. Extubated 05/23, transitioned off of glycemic protocol 05/25.
Patient is awake and A/O x3, pleasant, able to discuss diabetes management. SonPramod at bedside
POD# 10, doing well. 06/02 premeal Glucose stable and in range of 161 to 178
Will make no changes to current regimen: Continue NovoLog 4 units AC with moderate corrective, Jardiance 10 mg daily and Lantus 8 units in AM.
Pt states that Jardiance will not be provided to her while in rehab due to cost. She has requested script for Jardiance to be sent to pharmacy so her son can pick it up and have it ready to take to rehab.
Discussed with patient and nurse.
Diabetes History
- -
Type of Diabetes: 2 requiring insulin
Pre-Admission Diabetes Regimen
06/02/24 06/02/24
06:45 15:46
Creatinine 0.8 Cancelled
Lab Results
Hemoglobin A1c 7.4 % (4.0-5.6) H 05/20/24 05:23
Insulin Pump Settings
IP Diabetes Regimen
06/02/24 06/02/24 06/02/24
06:45 07:45 12:17
Glucose 156 H
POC Glucose 161 H 174 H
06/02/24 06/02/24 06/02/24
15:46 17:57 21:46
Glucose Cancelled
POC Glucose 178 H 150 H
Meal type: Dinner
Meal type: Breakfast
Amount consumed: 100%
Amount consumed: 100%
Patient Education
[2024-06-03 07:35] VITALS: BP 130/66
[2024-06-03 07:59] LABS: Glucose - Point of Care 197 mg/dl (70-99)
[2024-06-03] MEDS: PROTONIX 40 MG PO (08:56)
[2024-06-03] MEDS: FARXIGA 10 MG PO (08:56)
[2024-06-03] MEDS: LOW STRENGTH ASPIRIN 81 MG PO (08:56)
[2024-06-03] MEDS: COZAAR 50 MG PO ×2 (08:56→21:10)
[2024-06-03] MEDS: LANTUS 0.08 UNITS SC (08:57)
[2024-06-03] MEDS: LOPRESSOR 50 MG PO ×2 (08:57→21:11)
[2024-06-03] MEDS: PROCARDIA XL (EXTENDED RELEASE) 30 MG PO ×2 (08:57→21:09)
[2024-06-03] MEDS: NOVOLOG FLEXPEN-MODERATE RESISTANCE 1 UNITS SC ×3 (09:03→17:54)
[2024-06-03] MEDS: NOVOLOG FLEXPEN 4 UNITS SC ×3 (09:03→17:54)
[2024-06-03] MEDS: DESENEX/MITRAZOL/ZEASORB 1 APPLIC TOPICAL ×2 (09:04→21:11)
--- NOTE | 2024-06-03 09:19 | W.PN.CRS1 ---
Today's Communication / Plan
-
as below
Assessment/Plan
-
58-year-old female with PMH of recurrent diverticulitis (multiple episodes over the last 25 years), recent UTI on 04/29 seen in the [place] ED, HTN, DM (on Mounjaro), breast cancer s/p resection and chemo, endometrial cancer s/p LETI/BSO,? Aortic
stent who presented with acute abdominal pain, CT concerning for perforated diverticulitis with flecks of free air around the abdomen; patient initially managed nonoperatively as there was no signs of peritonitis or hemodynamic instability; however,
patient did not improve and a repeat CT scan showed worsening pneumoperitoneum with persistent inflammation of the sigmoid colon
POD12 Caridad's; postop was on pressors and intubated
Off pressors and extubated by POD2; pRBCx1 given on 05/22 and 05/23
05/27 CT (for bump in WBC) - LUQ collection c/f perisplenic hematoma, expected post-op changes
Tmax 101.4, VSS
Labs pending
�CT with perisplenic collection, likely hematoma; discussed with IR, not easily drainable, not overly concerned for abscess; holding off on IR drainage
- second day of low grade fevers; yesterday - UA negative, CXR - LLL atelectasis vs pna, LE duplex - neg
- appreciate ID; cont IV erta; will discuss if a repeat CT would be helpful
� Continue for low residue
� Continue pain control; Tylenol, oxycodone, continue Dilaudid as needed
� Continue lvx for DVT PPx
� Continue JODIE to bulb suction; plan to remove prior to discharge
� Appreciate WOCN
- Appreciate PT� recommending rehab for discharge
� Appreciate hospitalist
Dispo� rehab planning; pending resolution of fevers
Subjective Data
Procedure
05/22/2024- 1) exploratory laparotomy 2) Caridad's resection (sigmoidectomy with rectopexy)
Subjective Data
Date of Service: June 03, 2024
No overnight events. Denies any cough, chest pain, shortness of breath.
Having some abdominal pain, but controlled with Tylenol. No worsening pain.
Denies nausea/vomiting. Tolerating diet.
+ Ostomy function +voiding (no dysuria, hematuria)
Objective Data
-
Vital Signs
Temp Pulse Resp BP Pulse Ox
100.0 F 92 18 130/66 96
06/03/24 07:35 06/03/24 08:57 06/03/24 07:35 06/03/24 08:57 06/03/24 07:35
Intake & Output
06/02/24 06/03/24 06/04/24
06:59 06:59 06:59
Intake Total 1300 / 1300 1440 / 1440
Output Total 270 / 270 285 / 285
Balance 1030 / 1030 1155 / 1155
Intake:
Oral fluids 1240 / 1240 1440 / 1440
IV piggybacks 60 / 60
Output:
Liquid stool amount 240 / 240 250 / 250
Colostomy 240 / 240 250 / 250
Drain Output (Total) 30 30 35 / 35
Right Abdomen 30 35 / 35
Other:
Number of approximated SMALL 1
amounts of urine
How many times incontinent 1
SMALL amount urine
How many times incontinent 2 3
SATURATED amount urine
Physical Exam
-
General: No Acute Distress and AOx3
HEENT: Grossly Normal
Abdomen: Soft, Non Distended, Tender (Appropriately tender near incisions), No Guarding, No Rebound and Other (JODIE-35 mL serosanguineous; ostomy pink and productive of soft stool)
Neurological: No Motor Deficits
Skin: Warm and Dry
Wound: No Signs of Infection, Dressing in Place, No Skin Erythema and Other (Incision healing well; gaps between merari granulating, no purulent drainage)
[2024-06-03 09:39] LABS: Hematocrit 22.9 % (37.0-47.0); Hemoglobin 7.5 g/dL (12.0-16.0); Mean Corp Hgb Conc. 32.8 g/dL (33.0-37.0); Mean Corpuscular Hgb 29.8 pg (27.0-31.0); Mean Corpuscular Volume 90.9 fL (81.0-99.0); Mean Platelet Volume 11.8 fL (7.4-10.4); Platelet Count 412 10^3/uL (130-400); Red Blood Cell Count 2.52 10^6/uL (4.20-5.40); Red Cell Dist. Width 15.7 % (11.5-14.5); White Blood Cell Count 12.1 10^3/uL (4.8-10.8)
[2024-06-03 10:04] LABS: Blood Urea Nitrogen 12 mg/dl (7-17); Calcium 7.4 mg/dl (8.4-10.2); Carbon Dioxide 27 mmol/L (22-30); Chloride 96 mmol/L (98-107); Estimated Creatinine Clearance 93 ml/min; Glucose 173 mg/dl (70-99); Potassium 3.6 mmol/L (3.5-5.1); Sodium 133 mmol/L (135-145); eGFR > 60.00
[2024-06-03 12:52] LABS: Glucose - Point of Care 155 mg/dl (70-99)
[2024-06-03] MEDS: INVANZ 60 MG IV (13:00)
--- NOTE | 2024-06-03 13:20 | W.PN.HOSP.TC ---
Addendum entered and electronically signed by Sharmin Khan MD 06/03/24 14:13:
I saw and evaluated the patient independently. I reviewed the resident�s note and agree with findings and plan as documented by Dr. Christian. Nursing and therapy state pt does not want to get up (even to use standing scale or bedside commode)--son
enabling Mother (says she went down hard with nursing staff 2 days after surgery when they tried to get her up--she is POD 11 now)
GENERAL: well developed, well nourished, female in no apparent distress
HEENT: NC/AT--no O2 requirements
HEART: regular rate and rhythm, +S1, +S2
LUNGS : clear to auscultation bilaterally
ABDOM: soft, nontender, nondistended, + bowel sounds
EXT: no cyanosis, clubbing--bruised right wrist--2-3+ LE edema bilaterally--
NEUROLOGIC: grossly intact
deconditioned--due to surgery, chronic arthritis issues, (edema per pt)--PT/OT--needs to start moving, OOB to chair etc
Acute sigmoid diverticulitis with perforation--apprec colorectal surgery--exp lap with ostomy and JODIE drain (still in place) on 05/24/24--Patient tolerating 1800-calorie diabetic diet well
edema--bilateral LE--weights up (99kg on admission, 107 kg this AM)--pt says it impacts her ability to rehab--cont IV diuresis--follow weights
Multifactorial shock -septic/hypovolemic--Patient previously requiring postop vasopressor support--resolved
Bacteroids distasonis bacteremia with ESBL E. coli positive wound cultures (peritonitis)--positive intraoperative wound cultures with Intermittent fevers--thought to be due to possible Perisplenic hematoma--CXR with LLL atelectasis, pna,
effusion?--would US chest to see if enough fluid to tap--apprec ID--cont Invanz (2 weeks per ID--day 3 today)--may need PICC line
Acute blood loss anemia--s/p 2 units PRBC this admission (did require)--JODIE with serosanguineous drainage--follow HGB--transfuse if HGB < 7
TIFFANI --resolved---AGAP metabolic acidosis--resolved
Hyponatremia--likely volume overload--IV lasix should help--may need fluid restriction
Acute transaminitis--likely due to all above-- improved
Type 2 DM--insulin requiring --Hemoglobin A1c of 7.4--apprec DM SERGEANT OF OFFICERS assistance
H/o Coarctation of the Aorta--s/p prior aortic stenting--Continue ASA--Monitor blood pressure
DVT Prophylaxis: Heparin subq
Code Status-- Full Code
Original Note:
Today's Communication/Plan
-
Awaiting case finishing machine adjuster approval for SNF discharge
Assessment / Plan
Assessment / Plan
#Acute sigmoid diverticulitis with perforation
-CT scan in ED showing sigmoid diverticulitis with perforation
-Patient underwent elective exploratory laparotomy resection and Caridad procedure
-Patient postop day 11
-Patient has a JDOIE drain in, last reading was 30 mL serosanguineous fluid colorectal planning on removing before discharge
-brown soft stool output on ostomy bag
-Patient tolerating 1800-calorie diabetic diet well
# Multifactorial shock -septic/hypovolemic
-Patient previously requiring postop vasopressor support
-Off pressors
# Bacteroids distasonis bacteremia
ESBL ecoli peritonitis
Perisplenic hematoma
-Intraoperative abdominal fluid culture growing ESBL E. coli
-Bacteroides isolated preoperatively on blood culture 1 set, repeat negative
-Continue to have persistent leukocytosis, Currently stable we will continue to monitor
-Abx have changed to Invanz by ID, Currently day 3
#Intermittent fevers
Patient has been having variable intermittent fevers overnight
Origin unclear
Last night patient had 2 readings of slightly elevated temperatures
Patient is asymptomatic, fever of unknown origin workup was initiated
Chest x-ray demonstrated a left basilar opacity, redness potential pneumonia, atelectasis or pleural effusion
Left chest ultrasound ordered to evaluate for full pleural effusion
UA with culture taken
ID believes temperature spikes may be secondary to a hematoma near the spleen, hematomas unnameable to iRad drainage
ID recommending 2 weeks of empiric Invanz, currently day 3
# Acute blood loss anemia
-s/p 2 units PRBC this admission
-JODIE drain with dark red serosanguineous drainage, Last output reading was 15 mL
-Patient's hemoglobin down trended from 8.3-7.5
-monitor CBC
-Transfuse if hemoglobin drops below 7
#TIFFANI
AGAP metabolic acidosis
Hyponatremia
-Renal function has normalized
-New hyponatremia, 133
-IV Lasix 40 ordered, will attempt to correct hyponatremia
# Acute transaminitis
- improved
# IDDM
-Hemoglobin A1c of 7.4
-Patient requiring insulin gtt. support in ICU
-Maintain on and NovoLog with sliding scale
-Diabetic nurse practitioner managing
# Coarctation of the Aorta
-Systolic murmur heard on exam
- s/p prior aortic stenting.
- Continue ASA
-Monitor blood pressure
#. Iatrogenic volume overload
Patient came in 99 kg, up to 107 kg
40 IV Lasix ordered
Will continue to reassess volume status and need for diuresis with weights and clinical exam
DVT Prophylaxis: Heparin subq
Code Status: Full
Anticipated Discharge: 24 - 48 hours
Subjective/Interval History
-
Date of Service: June 03, 2024
Patient had 2 episodes of slight fevers overnight
Objective Data
-
Labs:
Laboratory Results
06/03/24
08:17
WBC 12.1 H
Hgb 7.5 L
Hct 22.9 L
Plt Count 412 H
Sodium 133 L
Potassium 3.6
Chloride 96 L
Carbon Dioxide 27
BUN 12
Creatinine 0.8
Glucose 173 H
Calcium 7.4 L
Vital Signs:
Vital Signs
Temp Pulse Resp BP Pulse Ox
100.0 F 92 18 130/66 96
06/03/24 07:35 06/03/24 08:57 06/03/24 07:35 06/03/24 08:57 06/03/24 07:35
I&O
06/02/24 06/03/24 06/04/24
06:59 06:59 06:59
Intake Total 1300 / 1300 1440 / 1440
Output Total 270 / 270 285 / 285
Balance 1030 / 1030 1155 / 1155
Review of Systems
-
History Source: Patient
Constitutional: Reports No Symptoms
Respiratory: Reports No Symptoms
Cardiac: Reports No Symptoms
Abdomen/GI: Reports No Symptoms
Genitourinary: Reports No Symptoms
Physical Exam
-
General: Well Developed, Well Nourished, Comfortable, Conversant and Morbidly Obese
Respiratory: Clear to Auscultation
Cardiac: Regular Rhythm and S1/S2
GI: Soft, Nontender, Nondistended, Normal Bowel Sounds and Ostomy
Skin: Warm and Dry
Neuro: Awake, Alert, Oriented and AO x 3
Psych: Calm and Intact Judgement/Insight
Data Reviewed
-
Diagnostic Radiology: Image personally visualized and interpreted, Report Reviewed by me and Discussed with Physician
Labs: Labs Reviewed by me and Discussed with Physician
[2024-06-03] MEDS: LASIX 40 MG IV (13:25)
--- NOTE | 2024-06-03 14:17 | W.PN.ID1 ---
Date of Service
Date of Service: June 03, 2024
Today's Communication
Continue antibiotics.
Assessment / Plan
Diverticulitis with diverticular perforation
- s/p diverting colostomy (05/22/2024).
- Intra-op splenic capsular tear with likely hematoma
Leukocytosis
-Improved from prior. Stable today.
Recovery of ESBL E. coli from surgery
Bacteroides bacteremia
Low-grade temperatures
HTN
DM
Hx breast CA
Hx endometrial CA
Diverticulitis
Recommendations:
Leukocytosis stable today.
Trend fever curve. Low grade temps may be secondary to hematoma, although etiology of repeat temp to 101 last evening unclear.
Location of collection is not amenable to IR drainage.
Monitor drain output.
Patient will likely need a prolonged course of IV antibiotics (>= 2 weeks) as it is unclear whether hematoma is infected or not.
Continue with ertapenem.
If temps continue, may need additional imaging.
����������������������������������������������������������
Chief Complaint
-: Other (Abdominal infection)
Subjective / Review of Systems
Patient seen and examined. Fevers noted. Denies significant abdominal discomfort.
Vital Signs / Physical Exam
Vital Signs
Vital Signs
Temp Pulse Resp BP Pulse Ox
100.0 F 92 18 130/66 96
06/03/24 07:35 06/03/24 13:25 06/03/24 07:35 06/03/24 13:25 06/03/24 07:35
Physical Exam
Constitutional: No Acute Distress, Comfortable and Non-toxic
Eyes: Sclera Anicteric
Pulmonary: Non Labored
Gastrointestinal: Non Distended
Extremities: Edema; Negative Cyanosis or Erythema
Neurological: Awake and Alert
Psychological: Calm
Objective Data
Lab Data
Lab Results
06/03/24 08:17
06/03/24 08:17
PT 16.1 Sec (11.4-14.6) H 05/22/24 19:57
INR 1.28 05/22/24 19:57
APTT 28.3 Sec (23.4-35.0) 05/22/24 19:57
Estimated Creat Clear 93 ml/min 06/03/24 08:17
Lactic Acid 1.2 mmol/L (0.7-2.0) 05/20/24 22:09
Total Bilirubin 0.7 mg/dl (0.2-1.3) 05/30/24 09:05
AST 24 U/L (14-36) 05/30/24 09:05
ALT 19 U/L (0-35) 05/30/24 09:05
Alkaline Phosphatase 78 U/L (38-126) 05/30/24 09:05
Most recent labs reviewed.
Micro Results:
06/02/24 12:02 Blood Culture - Preliminary
Blood/Venous No Growth in 24 hours- Final report to follow
06/02/24 09:36 Blood Culture - Preliminary
Blood/Venous No Growth in 24 hours- Final report to follow
05/22/24 08:00 Wound Culture - Final
Abdomen Escherichia coli - ESBL
Gram Stain - Final
05/22/24 08:00 Anaerobic Culture - Final
Abdomen
05/19/24 20:48 Blood Culture - Final
Blood/Venous Bacteroides distasonis
Gram Stain - Final
05/21/24 17:56 Blood Culture - Final
Blood/Venous No Growth - Final Report
Imaging:
05/27/2024 CT abdomen/pelvis with contrast: There is 7 x 8 x 3 cm intermediate density heterogeneous left subdiaphragmatic fluid collection containing a small amount of extraluminal gas. Differential diagnosis for this collection includes hematoma
and abscess. Sigmoidectomy with left lower quadrant colostomy. Moderate ascites including areas of loculated fluid in the abdomen and pelvis. Small left pleural effusion with compressive atelectasis at the posterior left lung base. Please see
full dictation for additional detail.
--- NOTE | 2024-06-03 14:21 | CM ---
Addendum entered by Jamia Angel RN 06/03/24 14:38:
Admissions notified of new insurance.
Original Note:
Reviewed the chart notes and spoke with the patient and her son at the bedside. They were able to obtain new insurance information.
[employer]
[id number]
--- NOTE | 2024-06-03 15:30 | WOUNDNOTE ---
[facility] RN Note: Patient's stoma pink with mucocutaneous separation medially, pink with yellow. Stoma flush, oval shaped and functioning for soft brown loose stool. Peristomal skin intact. Son was in room during ostomy appliance change and he was
observing from afar and listening to instruction. Patient closed new pouch and cut wafer for appliance change. 1/2 piece of Mario seal applied along medial side of back of wafer just lateral to convex part and 1/2 Mario seal applied around stoma.
Patient observed. Center sacral ulcer purple skin starting to slough off with pink stage 2 ulcer underneath skin that sloughed off. Bilateral buttocks chafed skin improved. Patient moved better today to assess sacrum. Patient turned with 1 assist.
Silicone border foam applied on sacral/buttocks. Air overlay flat, reinflated air overlay. Discussed with HARMONY Chin who will either applied new air overlay mattress or switch bed to an air bed. She is going to ultrasound soon. t/c Housekeeping
automobile mechanic supervisor Edenilson and requested an air bed (i.e. Centrella Max air or Centrella Max Wide air bed). Next appliance change due or Monday.
[2024-06-03 15:37] VITALS: BP 121/65
[2024-06-03 17:44] LABS: Glucose - Point of Care 187 mg/dl (70-99)
[2024-06-03] MEDS: LOVENOX 40 MG SC (17:55)
[2024-06-03 23:05] VITALS: BP 123/56
[2024-06-04] MEDS: ROXICODONE 10 MG PO ×2 (01:06→16:07)
[2024-06-04 04:05] LABS: Glucose - Point of Care 168 mg/dl (70-99)
[2024-06-04 05:57] VITALS: BMI 37.7
--- NOTE | 2024-06-04 07:25 | PN.DE.MGMTRT ---
Insulin Management
- -
06/04/2024: Diabetes Management Follow up:
Patient admitted 05/19 with acute sigmoid diverticulitis with perforation. PMH endometrial CA, breast CA, HTN, HCL, steroid induced diabetes. Prior to admission was taking 19 units NovoLog AC with Mounjaro 2.[address] Cordova
and Omer Ndiaye PA-c at [facility]. Recently was started on Mounjaro and Jardiance and had frequent low blood sugars. She states she could not get an appointment with Omer so she called her primary doctor who told her to stop Lantus and
Jardiance due to hypoglycemia. A1C is 7.4, Cr 1.5, eGFR 39.65. Extubated 05/23, transitioned off of glycemic protocol 05/25.
Patient is awake and A/O x3, pleasant, able to discuss diabetes management. SonPramod at bedside
POD# 11, doing well. 06/03 premeal Glucose stable and in range of 155 to 197.
Will make no changes to current regimen: Continue NovoLog 4 units AC with moderate corrective, Jardiance 10 mg daily and Lantus 8 units in AM.
Pt states that Jardiance will not be provided to her while in rehab due to cost. She has requested script for Jardiance to be sent to pharmacy so her son can pick it up and have it ready to take to rehab.
Discussed with patient and nurse.
Diabetes History
- -
Type of Diabetes: 2 requiring insulin
Pre-Admission Diabetes Regimen
06/03/24
08:17
Creatinine 0.8
Lab Results
Hemoglobin A1c 7.4 % (4.0-5.6) H 05/20/24 05:23
Insulin Pump Settings
IP Diabetes Regimen
06/03/24 06/03/24 06/03/24
07:58 08:17 12:50
Glucose 173 H
POC Glucose 197 H 155 H
06/03/24 06/04/24
17:43 04:04
Glucose
POC Glucose 187 H 168 H
Meal type: Lunch
Meal type: Breakfast
Amount consumed: 100%
Amount consumed: 100%
Patient Education
[2024-06-04 07:30] VITALS: BP 140/71
[2024-06-04 07:32] LABS: Hematocrit 22.8 % (37.0-47.0); Hemoglobin 7.5 g/dL (12.0-16.0); Mean Corp Hgb Conc. 32.9 g/dL (33.0-37.0); Mean Platelet Volume 11.3 fL (7.4-10.4); Platelet Count 422 10^3/uL (130-400); Red Blood Cell Count 2.59 10^6/uL (4.20-5.40); Red Cell Dist. Width 15.7 % (11.5-14.5); White Blood Cell Count 11.6 10^3/uL (4.8-10.8)
[2024-06-04 07:35] LABS: Glucose - Point of Care 151 mg/dl (70-99)
[2024-06-04 07:57] LABS: Blood Urea Nitrogen 14 mg/dl (7-17); Calcium 7.8 mg/dl (8.4-10.2); Carbon Dioxide 29 mmol/L (22-30); Chloride 96 mmol/L (98-107); Estimated Creatinine Clearance 92 ml/min; Glucose 164 mg/dl (70-99); Potassium 3.7 mmol/L (3.5-5.1); Sodium 135 mmol/L (135-145); eGFR > 60.00
[2024-06-04] MEDS: FARXIGA 10 MG PO (07:59)
[2024-06-04] MEDS: PROCARDIA XL (EXTENDED RELEASE) 30 MG PO ×2 (07:59→21:54)
[2024-06-04] MEDS: PROTONIX 40 MG PO (08:03)
[2024-06-04] MEDS: COZAAR 50 MG PO ×2 (08:04→21:55)
[2024-06-04] MEDS: LOPRESSOR 50 MG PO ×2 (08:04→21:55)
[2024-06-04] MEDS: LOW STRENGTH ASPIRIN 81 MG PO (08:04)
[2024-06-04] MEDS: LANTUS 0.08 UNITS SC (08:04)
[2024-06-04] MEDS: DESENEX/MITRAZOL/ZEASORB 1 APPLIC TOPICAL ×2 (08:05→21:56)
[2024-06-04] MEDS: TYLENOL 650 MG PO ×2 (08:10→17:28)
[2024-06-04] MEDS: NOVOLOG FLEXPEN 4 UNITS SC ×2 (08:29→17:14)
[2024-06-04] MEDS: NOVOLOG FLEXPEN-MODERATE RESISTANCE 1 UNITS SC ×2 (08:29→14:02)
--- NOTE | 2024-06-04 09:13 | W.PN.HOSP.TC ---
Addendum entered and electronically signed by Sharmin Khan MD 06/04/24 19:17:
I saw and evaluated the patient independently. I reviewed the resident�s note and agree with findings and plan as documented by Dr. Christian. Nursing and therapy state pt does not want to get up (even to use standing scale or bedside commode)--son
enabling Mother (says she went down hard with nursing staff 2 days after surgery when they tried to get her up--she is POD 12 now)
GENERAL: well developed, well nourished, female in no apparent distress
HEENT: NC/AT--no O2 requirements
HEART: regular rate and rhythm, +S1, +S2
LUNGS : clear to auscultation bilaterally
ABDOM: soft, nontender, nondistended, + bowel sounds--ostomy in place--JODIE drain in place
EXT: no cyanosis, clubbing--bruised right wrist--2-3+ LE edema bilaterally--
NEUROLOGIC: grossly intact
deconditioned--due to surgery, chronic arthritis issues, (edema per pt)--PT/OT--needs to start moving, OOB to chair etc
fevers-- ongoing--on Ertapenem-- possible sources (infected paracolic gutter, infarcted/infarcting omentum, left moderate pleural effusion)--plan was to have IR placed drain today 06/04/2024, but Dr. Villalobos did not believe the perisplenic collection
was approachable nor the left gutter collection was worth draining as per colorectal surgery--I suspect that this is more the source for infection and fevers rather than moderate pleural effusion--nevertheless, to put this at rest, would consider IR
thoracentesis of left pleural effusion 06/05/2024--continue antibiotics for now
Acute sigmoid diverticulitis with perforation--apprec colorectal surgery--exp lap with ostomy and JODIE drain (still in place) on 05/24/24--Patient tolerating 1800-calorie diabetic diet well
edema--bilateral LE--weights up (99kg on admission, 106 kg this AM)--pt says it impacts her ability to rehab--cont IV diuresis--follow weights
Multifactorial shock -septic/hypovolemic--Patient previously requiring postop vasopressor support--resolved
Bacteroids distasonis bacteremia with ESBL E. coli positive wound cultures (peritonitis)--positive intraoperative wound cultures with Intermittent fevers--thought to be due to possible Perisplenic hematoma--CXR with LLL atelectasis, pna,
effusion?-- chest US shows moderate pleural effusion --apprec ID--cont Invanz (2 weeks per ID--day 4 today)--may need PICC line
Acute blood loss anemia--s/p 2 units PRBC this admission (did require)--JODIE with serosanguineous drainage--follow HGB--transfuse if HGB < 7
TIFFANI --resolved---AGAP metabolic acidosis--resolved
Hyponatremia--likely volume overload--IV lasix should help
Acute transaminitis--likely due to all above-- improved
Type 2 DM--insulin requiring --Hemoglobin A1c of 7.4--apprec DM CAMERA ENGINEER assistance
H/o Coarctation of the Aorta--s/p prior aortic stenting--Continue ASA--Monitor blood pressure
DVT Prophylaxis: Heparin subq
Code Status-- Full Code
Original Note:
Today's Communication/Plan
-
Continue working with physical therapy
Contact IR regarding pleural effusion
Assessment / Plan
Assessment / Plan
#Acute sigmoid diverticulitis with perforation
-CT scan in ED showing sigmoid diverticulitis with perforation
-Patient underwent elective exploratory laparotomy resection and Caridad procedure
-Patient postop day 12
-Patient has a JODIE drain in, last reading was 15 mL serosanguineous fluid colorectal planning on removing before discharge
-brown soft stool output on ostomy bag
-Patient tolerating 1800-calorie diabetic diet well
# Multifactorial shock -septic/hypovolemic
-Patient previously requiring postop vasopressor support
-Off pressors
# Bacteroids distasonis bacteremia
ESBL ecoli peritonitis
Perisplenic hematoma
-Intraoperative abdominal fluid culture growing ESBL E. coli
-Bacteroides isolated preoperatively on blood culture 1 set, repeat negative
-Continue to have persistent leukocytosis, Currently stable we will continue to monitor
-Abx have changed to Invanz by ID, Currently day 4
#Intermittent fevers
#Pleural effusion
-Patient has been having variable intermittent fevers overnight
-Origin unclear
-Last night patient had 3 readings of slightly elevated temperatures
-Patient is asymptomatic, fever of unknown origin workup was initiated
-Chest x-ray demonstrated a left basilar opacity, redness potential pneumonia, atelectasis or pleural effusion
-Follow-up left-sided chest ultrasound demonstrated moderate pleural effusion
-Will contact IR tomorrow and decide if it is amenable to thoracentesis
-UA with culture taken
-ID believes temperature spikes may be secondary to a hematoma near the spleen, hematomas unnameable to iRad drainage
-ID recommending 2 weeks of empiric Invanz, currently day 4
# Acute blood loss anemia
-s/p 2 units PRBC this admission
-JODIE drain with dark red serosanguineous drainage, Last output reading was 15 mL
-Patient's hemoglobin down trended from 8.3-7.5
-Stable
-monitor CBC
-Transfuse if hemoglobin drops below 7
#TIFFANI
AGAP metabolic acidosis
Hyponatremia
-Renal function has normalized
-Hyponatremia has resolved, 135 on today's labs
-IV Lasix 40 daily
# Acute transaminitis
- improved
# IDDM
-Hemoglobin A1c of 7.4
-Patient requiring insulin gtt. support in ICU
-Maintain on and NovoLog with sliding scale
-Diabetic nurse practitioner managing
# Coarctation of the Aorta
-Systolic murmur heard on exam
- s/p prior aortic stenting.
- Continue ASA
-Monitor blood pressure
#. Iatrogenic volume overload
-Patient came in 99 kg, up to 107 kg
-Down to 106 kg today
-Status post 80 mg IV Lasix
-40 IV Lasix daily
-Will continue to reassess volume status and need for diuresis with weights and clinical exam
DVT Prophylaxis: Heparin subq
Code Status: Full
Diet: Diabetic
Anticipated Discharge: Within 24 hours
Subjective/Interval History
-
Date of Service: June 04, 2024
2 episodes of fevers overnight, 1 this morning low-grade fevers
Objective Data
-
Labs:
Laboratory Results
06/04/24
06:54
WBC 11.6 H
Hgb 7.5 L
Hct 22.8 L
Plt Count 422 H
Sodium 135
Potassium 3.7
Chloride 96 L
Carbon Dioxide 29
BUN 14
Creatinine 0.8
Glucose 164 H
Calcium 7.8 L
Vital Signs:
Vital Signs
Temp Pulse Resp BP Pulse Ox
100.1 F 98 16 140/71 92
06/04/24 07:30 06/04/24 08:04 06/04/24 07:30 06/04/24 08:04 06/04/24 07:30
I&O
06/03/24 06/04/24 06/05/24
06:59 06:59 06:59
Intake Total 1440 / 1440 1720 / 1720
Output Total 320 / 320 1380 / 1380
Balance 1120 / 1120 340 / 340
Review of Systems
-
History Source: Patient
Constitutional: Reports Fever
Respiratory: Reports No Symptoms
Cardiac: Reports No Symptoms
Abdomen/GI: Reports Abdominal Pain
Genitourinary: Reports No Symptoms
Musculoskeletal: Reports Edema (Lower extremity bilateral)
Physical Exam
-
General: Well Developed, Well Nourished, No Apparent Distress, Comfortable, Conversant and Morbidly Obese
Respiratory: Clear to Auscultation
Cardiac: Regular Rhythm and S1/S2
GI: Soft, Nondistended, Normal Bowel Sounds and Tender (Abdomen tender to palpation)
Musculoskeletal: Edema, Right Lower Extrem and Edema, Left Lower Extrem
Skin: Warm and Dry
Neuro: Awake, Alert, Oriented and AO x 3
Psych: Calm and Intact Judgement/Insight
Data Reviewed
-
Labs: Labs Reviewed by me and Discussed with Physician
--- NOTE | 2024-06-04 09:54 | W.PN.CRS1 ---
Today's Communication / Plan
-
CT abdomen and pelvis
N.p.o.
Assessment/Plan
-
58-year-old female with PMH of recurrent diverticulitis (multiple episodes over the last 25 years), recent UTI on 04/29 seen in the [place] ED, HTN, DM (on Mounjaro), breast cancer s/p resection and chemo, endometrial cancer s/p LETI/BSO,? Aortic
stent who presented with acute abdominal pain, CT concerning for perforated diverticulitis with flecks of free air around the abdomen; patient initially managed nonoperatively as there was no signs of peritonitis or hemodynamic instability; however,
patient did not improve and a repeat CT scan showed worsening pneumoperitoneum with persistent inflammation of the sigmoid colon
POD#13 Caridad's; postop was on pressors and intubated
Off pressors and extubated by POD2; pRBCx1 given on 05/22 and 05/23
05/27 CT (for bump in WBC) - LUQ collection c/f perisplenic hematoma, expected post-op changes
Tmax 101.6,
WBC 11.6 from 21.1
� Will repeat CT scan today to reevaluate the perisplenic collection
� N.p.o. for now should IR be needed
� Continue pain control; Tylenol, oxycodone, continue Dilaudid as needed
� Continue lovenox for DVT PPx
� Continue JODIE to bulb suction; plan to remove prior to discharge
� Appreciate WOCN
- Appreciate PT� recommending rehab for discharge
� Appreciate hospitalist
- Dispo� rehab planning; pending resolution of fevers
Subjective Data
Procedure
05/22/2024- 1) exploratory laparotomy 2) Caridad's resection (sigmoidectomy with rectopexy)
Subjective Data
Date of Service: June 04, 2024
Patient states her abdomen has some mild pain. She states it is across her stomach but Tylenol relieved it. She has tolerating a diet. She has no nausea or vomiting.
Objective Data
-
Vital Signs
Temp Pulse Resp BP Pulse Ox
100.1 F 98 16 140/71 92
06/04/24 07:30 06/04/24 08:04 06/04/24 07:30 06/04/24 08:04 06/04/24 07:30
Intake & Output
06/03/24 06/04/24 06/05/24
06:59 06:59 06:59
Intake Total 1440 / 1440 1720 / 1720
Output Total 320 / 320 1380 / 1380
Balance 1120 / 1120 340 / 340
Intake:
Oral fluids 1440 / 1440 1720 / 1720
Output:
Liquid stool amount 250 / 250 80 / 80
Colostomy 250 / 250 80 / 80
Drain Output (Total) 70 / 70 50 / 50
Right Abdomen 70 / 70 50 / 50
Urine, Voided 1250 / 1250
Other:
Number of approximated SMALL 1 1
amounts of urine
How many times incontinent 1
SMALL amount urine
How many times incontinent 3
SATURATED amount urine
Lab Results
06/04/24 06:54
06/04/24 06:54
Physical Exam
-
General: No Acute Distress and AOx3
Abdomen: Soft, Non Distended, Tender (Very mild across abdomen) and Other (Colostomy warm and pink with stool output, wound is clean dry and intact. Q-tip was probed into wound with no drainage. JODIE drain serosanguineous.)
Skin: Warm and Dry
[2024-06-04] MEDS: LASIX 40 MG IV (10:04)
[2024-06-04] MEDS: OMNIPAQUE 50 ML PO (10:04)
--- NOTE | 2024-06-04 10:31 | CM ---
Reviewed the chart notes. Patient for CT abdomen and pelvis today. CM continues to be available to patient/family and is monitoring medical plan for needs at discharge.
Plan: Discharge to SNF/rehab once medically stable, bed found and precert obtained.
[2024-06-04] MEDS: ROXICODONE 5 MG PO ×2 (11:36→21:59)
[2024-06-04 13:27] LABS: Glucose - Point of Care 190 mg/dl (70-99)
--- NOTE | 2024-06-04 13:34 | W.PN.ID1 ---
Date of Service
Date of Service: June 04, 2024
Today's Communication
Continue antibiotics.
Assessment / Plan
Diverticulitis with diverticular perforation
- s/p diverting colostomy (05/22/2024).
- Intra-op splenic capsular tear with likely hematoma
Leukocytosis
-Improved from prior. Stable today.
Recovery of ESBL E. coli from surgery
Bacteroides bacteremia
Low-grade temperatures
HTN
DM
Hx breast CA
Hx endometrial CA
Diverticulitis
Recommendations:
Leukocytosis stable today.
Trend fever curve. Low grade temps may be secondary to hematoma, although etiology of repeat temp to 101 last evening unclear.
Location of collection is not amenable to IR drainage. Repeat CT imaging performed today. Await full report.
Monitor drain output.
Given that it is unknown whether the collection is infected or not, would continue with a prolonged course of IV antibiotics (>= 2 weeks) a
Continue with ertapenem.
����������������������������������������������������������
Chief Complaint
-: Other (Abdominal infection)
Subjective / Review of Systems
Patient seen and examined. Fevers noted overnight. Patient denies pain. No difficulty with antibiotics.
Review of Systems: Fever
Vital Signs / Physical Exam
Vital Signs
Vital Signs
Temp Pulse Resp BP Pulse Ox
99.4 F 98 16 140/71 92
06/04/24 10:14 06/04/24 10:04 06/04/24 07:30 06/04/24 10:04 06/04/24 11:24
Physical Exam
Constitutional: No Acute Distress, Comfortable and Non-toxic
Eyes: Sclera Anicteric
Cardiovascular: S1/S2; Negative S3/S4
Pulmonary: Clear and Non Labored; Negative Wheezes or Rales
Gastrointestinal: Soft and Non Distended
Extremities: Edema; Negative Cyanosis or Erythema
Neurological: Awake and Alert
Psychological: Calm
Objective Data
Lab Data
Lab Results
06/04/24 06:54
06/04/24 06:54
PT 16.1 Sec (11.4-14.6) H 05/22/24 19:57
INR 1.28 05/22/24 19:57
APTT 28.3 Sec (23.4-35.0) 05/22/24 19:57
Estimated Creat Clear 92 ml/min 06/04/24 06:54
Lactic Acid 1.2 mmol/L (0.7-2.0) 05/20/24 22:09
Total Bilirubin 0.7 mg/dl (0.2-1.3) 05/30/24 09:05
AST 24 U/L (14-36) 05/30/24 09:05
ALT 19 U/L (0-35) 05/30/24 09:05
Alkaline Phosphatase 78 U/L (38-126) 05/30/24 09:05
Most recent labs reviewed.
Micro Results:
06/02/24 12:02 Blood Culture - Preliminary
Blood/Venous No Growth in 48 hours- Final report to follow
06/02/24 09:36 Blood Culture - Preliminary
Blood/Venous No Growth in 48 hours- Final report to follow
05/22/24 08:00 Wound Culture - Final
Abdomen Escherichia coli - ESBL
Gram Stain - Final
05/22/24 08:00 Anaerobic Culture - Final
Abdomen
05/19/24 20:48 Blood Culture - Final
Blood/Venous Bacteroides distasonis
Gram Stain - Final
05/21/24 17:56 Blood Culture - Final
Blood/Venous No Growth - Final Report
Imaging:
05/27/2024 CT abdomen/pelvis with contrast: There is 7 x 8 x 3 cm intermediate density heterogeneous left subdiaphragmatic fluid collection containing a small amount of extraluminal gas. Differential diagnosis for this collection includes hematoma
and abscess. Sigmoidectomy with left lower quadrant colostomy. Moderate ascites including areas of loculated fluid in the abdomen and pelvis. Small left pleural effusion with compressive atelectasis at the posterior left lung base. Please see
full dictation for additional detail.
[2024-06-04] MEDS: NOVOLOG FLEXPEN SC (14:02)
[2024-06-04] MEDS: INVANZ 60 MG IV (14:02)
[2024-06-04 15:35] VITALS: BP 147/68
--- NOTE | 2024-06-04 16:00 | PTCARENOTE ---
Patient refusing PT/OT despite premedication of 10 mg PRN PO roxycodone for abdominal/buttock pain. MDs made aware. Patient positioned in chair position in bed to aid in drain collection per colorectal surgery. Patient not going to IR today, diet
order re-entered per MD.
--- NOTE | 2024-06-04 16:52 | W.PN.UPDATE ---
Update Note
Progress Note Update
CT scan images reviewed when they were available. Communicated regarding the results with Dr. Parish Guevara of radiology. The perisplenic fluid which is likely a hematoma that is stable. There is some fluid in the left paracolic gutter which seems
to abut the tip of the Suman drain which is putting out serosanguineous output. There is also a inflammatory finding in the midline upper abdominal area behind the incision of unclear cause which is most likely consistent with infarcted/infarcting
greater omentum. When results were available, Latoya Glynn PA-C attempted to communicate the results with the patient herself unsuccessfully; however she was able to communicate with the patient's son regarding the results who will update the
patient. IR was also communicated with and Dr. Villalobos did not believe that the perisplenic collection was easily approachable nor that the left gutter collection was worth draining. The fever may well be from infarcted/ing greater omentum. At
this point time the plan is continued antibiotics.
[2024-06-04] MEDS: LOVENOX 40 MG SC (17:05)
[2024-06-04 17:10] LABS: Glucose - Point of Care 147 mg/dl (70-99)
[2024-06-04] MEDS: NOVOLOG FLEXPEN-MODERATE RESISTANCE SC (17:14)
[2024-06-04 21:49] LABS: Glucose - Point of Care 161 mg/dl (70-99)
[2024-06-04 23:33] VITALS: BP 130/70
[2024-06-05] MEDS: TYLENOL 650 MG PO ×3 (02:41→20:52)
[2024-06-05 06:00] VITALS: BMI 38.1
[2024-06-05 06:37] LABS: Hematocrit 22.9 % (37.0-47.0); Hemoglobin 7.5 g/dL (12.0-16.0); Mean Corp Hgb Conc. 32.8 g/dL (33.0-37.0); Mean Corpuscular Hgb 29.8 pg (27.0-31.0); Mean Corpuscular Volume 90.9 fL (81.0-99.0); Mean Platelet Volume 11.2 fL (7.4-10.4); Platelet Count 394 10^3/uL (130-400); Red Blood Cell Count 2.52 10^6/uL (4.20-5.40); Red Cell Dist. Width 15.6 % (11.5-14.5); White Blood Cell Count 9.4 10^3/uL (4.8-10.8)
[2024-06-05 07:06] LABS: Blood Urea Nitrogen 15 mg/dl (7-17); Calcium 7.7 mg/dl (8.4-10.2); Carbon Dioxide 31 mmol/L (22-30); Chloride 96 mmol/L (98-107); Estimated Creatinine Clearance 82 ml/min; Glucose 166 mg/dl (70-99); Potassium 3.7 mmol/L (3.5-5.1); Sodium 136 mmol/L (135-145); eGFR > 60.00
[2024-06-05 08:00] VITALS: BP 127/65
--- NOTE | 2024-06-05 08:06 | PN.DE.MGMTRT ---
Insulin Management
- -
06/05/2024: Diabetes Management Follow up:
Patient admitted 05/19 with acute sigmoid diverticulitis with perforation. PMH endometrial CA, breast CA, HTN, HCL, steroid induced diabetes. Prior to admission was taking 19 units NovoLog AC with Mounjaro 2.[address] weekly[address] Cordova
and Omer Ndiaye PA-c at [facility]. Recently was started on Mounjaro and Jardiance and had frequent low blood sugars. She states she could not get an appointment with Omer so she called her primary doctor who told her to stop Lantus and
Jardiance due to hypoglycemia. A1C is 7.4, Cr 1.5, eGFR 39.65. Extubated 05/23, transitioned off of glycemic protocol 05/25.
Patient is awake and A/O x3, pleasant, able to discuss diabetes management.
POD# 14, doing well. 06/04 premeal Glucose stable and in range of 147 to 190.
Will make no changes to current regimen: Continue NovoLog 4 units AC with moderate corrective, Jardiance 10 mg daily and Lantus 8 units in AM, with Mounjaro 5 mg weekly on Monday (dose due today).
Pt states that Jardiance will not be provided to her while in rehab due to cost. She has requested script for Jardiance to be sent to pharmacy so her son can pick it up and have it ready to take to rehab.
Discussed with patient and nurse.
Diabetes History
- -
Type of Diabetes: 2 requiring insulin
Pre-Admission Diabetes Regimen
06/05/24
05:50
Creatinine 0.9
Lab Results
Hemoglobin A1c 7.4 % (4.0-5.6) H 05/20/24 05:23
Insulin Pump Settings
IP Diabetes Regimen
06/04/24 06/04/24 06/04/24
13:25 17:09 21:38
Glucose
POC Glucose 190 H 147 H 161 H
06/05/24
05:50
Glucose 166 H
POC Glucose
Meal type: Dinner
Meal type: Dinner
Meal type: Lunch
Meal type: Breakfast
Amount consumed: 100%
Amount consumed: 100%
Patient Education
--- NOTE | 2024-06-05 08:10 | PTCARENOTE ---
Patient's son made aware to bring in patient's scheduled Mounjaro injection from home; patient's son stated he will bring medication into hospital later this evening.
[2024-06-05 08:24] LABS: Glucose - Point of Care 198 mg/dl (70-99)
[2024-06-05] MEDS: NOVOLOG FLEXPEN 4 UNITS SC ×3 (08:29→18:00)
[2024-06-05] MEDS: NOVOLOG FLEXPEN-MODERATE RESISTANCE 1 UNITS SC ×2 (08:31→12:23)
[2024-06-05] MEDS: PROTONIX 40 MG PO (08:32)
[2024-06-05] MEDS: FARXIGA 10 MG PO (08:32)
[2024-06-05] MEDS: LOW STRENGTH ASPIRIN 81 MG PO (08:32)
[2024-06-05] MEDS: LOPRESSOR 50 MG PO ×2 (08:33→20:48)
[2024-06-05] MEDS: PROCARDIA XL (EXTENDED RELEASE) 30 MG PO ×2 (08:36→20:48)
[2024-06-05] MEDS: COZAAR 50 MG PO ×2 (08:38→20:48)
[2024-06-05] MEDS: LASIX 40 MG IV ×2 (08:39→16:17)
[2024-06-05] MEDS: DESENEX/MITRAZOL/ZEASORB 1 APPLIC TOPICAL ×2 (08:41→20:49)
[2024-06-05] MEDS: LANTUS 0.08 UNITS SC (08:47)
--- NOTE | 2024-06-05 09:08 | W.PN.CRS1 ---
Today's Communication / Plan
-
continue IV antibiotics
Assessment/Plan
-
58-year-old female with PMH of recurrent diverticulitis (multiple episodes over the last 25 years), recent UTI on 04/29 seen in the [facility], HTN, DM (on Mounjaro), breast cancer s/p resection and chemo, endometrial cancer s/p LETI/BSO,? Aortic
stent who presented with acute abdominal pain, CT concerning for perforated diverticulitis with flecks of free air around the abdomen; patient initially managed nonoperatively as there was no signs of peritonitis or hemodynamic instability; however,
patient did not improve and a repeat CT scan showed worsening pneumoperitoneum with persistent inflammation of the sigmoid colon
POD#14 Caridad's; postop was on pressors and intubated
Off pressors and extubated by POD2; pRBCx1 given on 05/22 and 05/23
05/27 CT (for bump in WBC) - LUQ collection c/f perisplenic hematoma, expected post-op changes
Tmax 100.4
WBC 9.4
� WBC finally normalized, fevers improving
� Continue pain control; Tylenol, oxycodone, continue Dilaudid as needed
� Continue lovenox for DVT PPx
� Continue JODIE to bulb suction; plan to remove prior to discharge
� Appreciate WOCN
- Appreciate PT� recommending rehab for discharge
� Appreciate hospitalist
- Dispo� rehab planning; pending resolution of fevers
Subjective Data
Procedure
05/22/2024- 1) exploratory laparotomy 2) Caridad's resection (sigmoidectomy with rectopexy)
Subjective Data
Date of Service: June 05, 2024
Patient states her abdomen is a little sore but otherwise she has no complaints. She has been sitting up all night. She denies nausea or vomiting. She is tolerating eating.
Objective Data
-
Vital Signs
Temp Pulse Resp BP Pulse Ox
99.7 F 91 17 127/65 91
06/04/24 23:33 06/05/24 08:39 06/05/24 08:00 06/05/24 08:39 06/05/24 08:00
Intake & Output
06/04/24 06/05/24 06/06/24
06:59 06:59 06:59
Intake Total 1720 / 1720 240 / 240
Output Total 1380 / 1380 1110 / 1110
Balance 340 / 340 -870 / -870
Intake:
Oral fluids 1720 / 1720 240 / 240
Output:
Liquid stool amount 80 / 80 250 / 250
Colostomy 80 / 80 250 / 250
Drain Output (Total) 50 / 50 60 / 60
Right Abdomen 50 / 50 60 / 60
Urine, Voided 1250 / 1250 800 / 800
Other:
Number of approximated SMALL 1
amounts of urine
How many times incontinent 2
MODERATE amount urine
How many times incontinent 1
SATURATED amount urine
Lab Results
06/05/24 05:50
06/05/24 05:50
Physical Exam
-
General: No Acute Distress and AOx3
Abdomen: Soft, Non Distended, Tender (mild around incision) and Other (colostomy warm and pink with output, JODIE serosanginous)
Skin: Warm and Dry
[2024-06-05] MEDS: ROXICODONE 5 MG PO ×2 (11:01→23:01)
[2024-06-05] MEDS: INVANZ 60 MG IV (11:53)
[2024-06-05 11:55] LABS: Glucose - Point of Care 194 mg/dl (70-99)
--- NOTE | 2024-06-05 13:07 | W.PN.ID1 ---
Date of Service
Date of Service: June 05, 2024
Today's Communication
Continue ertapenem.
Assessment / Plan
Diverticulitis with diverticular perforation
- s/p diverting colostomy (05/22/2024).
- Intra-op splenic capsular tear with likely hematoma
Leukocytosis
-Improved from prior. Stable today.
Recovery of ESBL E. coli from surgery
Bacteroides bacteremia
Low-grade temperatures
HTN
DM
Hx breast CA
Hx endometrial CA
Diverticulitis
Recommendations:
Leukocytosis improved today.
Trend fever curve. Low grade temps may be secondary to hematoma.
Location of collection is not amenable to IR drainage.
Monitor drain output.
Given that it is unknown whether the collection is infected or not, would continue with a prolonged course of IV antibiotics (>= 2 weeks) a
Continue with ertapenem.
����������������������������������������������������������
Chief Complaint
-: Other (Abdominal infection)
Subjective / Review of Systems
Review of Systems: No Fever and No Chills
Vital Signs / Physical Exam
Vital Signs
Vital Signs
Temp Pulse Resp BP Pulse Ox
98.4 F 91 17 127/65 91
06/05/24 08:00 06/05/24 08:39 06/05/24 08:00 06/05/24 08:39 06/05/24 10:45
Physical Exam
Constitutional: No Acute Distress, Comfortable and Non-toxic
Head: Normocephalic
Eyes: No Conjunctival Hemorrhage and Sclera Anicteric
Cardiovascular: S1/S2; Negative S3/S4 or Murmur
Pulmonary: Clear and Non Labored; Negative Wheezes or Rales
Gastrointestinal: Soft, Non Distended and Other (Ostomy in place.)
Extremities: Edema; Negative Cyanosis or Erythema
Neurological: Awake and Alert
Psychological: Calm
Objective Data
Lab Data
Lab Results
06/05/24 05:50
06/05/24 05:50
PT 16.1 Sec (11.4-14.6) H 05/22/24 19:57
INR 1.28 05/22/24 19:57
APTT 28.3 Sec (23.4-35.0) 05/22/24 19:57
Estimated Creat Clear 82 ml/min 06/05/24 05:50
Lactic Acid 1.2 mmol/L (0.7-2.0) 05/20/24 22:09
Total Bilirubin 0.7 mg/dl (0.2-1.3) 05/30/24 09:05
AST 24 U/L (14-36) 05/30/24 09:05
ALT 19 U/L (0-35) 05/30/24 09:05
Alkaline Phosphatase 78 U/L (38-126) 05/30/24 09:05
Most recent labs reviewed.
Micro Results:
06/02/24 12:02 Blood Culture - Preliminary
Blood/Venous No Growth in 72 hours- Final report to follow
06/02/24 09:36 Blood Culture - Preliminary
Blood/Venous No Growth in 72 hours- Final report to follow
05/22/24 08:00 Wound Culture - Final
Abdomen Escherichia coli - ESBL
Gram Stain - Final
05/22/24 08:00 Anaerobic Culture - Final
Abdomen
05/19/24 20:48 Blood Culture - Final
Blood/Venous Bacteroides distasonis
Gram Stain - Final
05/21/24 17:56 Blood Culture - Final
Blood/Venous No Growth - Final Report
Imaging:
06/04/2024 CT abdomen/pelvis with contrast: Heterogeneous collection in the left upper quadrant, superior to the spleen and upper stomach. The patient has a history of splenic laceration during splenic flexure takedown, and this most likely
represents a hematoma. Measurements without significant change from examination of May 27, 2024. Although this was not a CT angiography examination, there is no CT evidence to suggest significant active bleeding. There is fluid in the left
paracolic gutter and extending slightly medially in the left lower abdomen adjacent to small bowel loops. This fluid has slightly increased since examination May 27, 2024. There is a drainage catheter with its tip is in the inferior aspect of
this fluid collection. There is an unusual ovoid fat, fluid, and air density in the midline abdomen posterior to the abdominal wall. This is felt to likely represent necrotic omentum, and superimposed infection cannot be excluded. There is no
evidence of a drainable collection at this time. Moderate subcutaneous edema. This is slightly improved from examination of May 27, 2024.
05/27/2024 CT abdomen/pelvis with contrast: There is 7 x 8 x 3 cm intermediate density heterogeneous left subdiaphragmatic fluid collection containing a small amount of extraluminal gas. Differential diagnosis for this collection includes hematoma
and abscess. Sigmoidectomy with left lower quadrant colostomy. Moderate ascites including areas of loculated fluid in the abdomen and pelvis. Small left pleural effusion with compressive atelectasis at the posterior left lung base. Please see
full dictation for additional detail.
--- NOTE | 2024-06-05 14:12 | W.PN.HOSP.TC ---
Addendum entered and electronically signed by Sharmin Khan MD 06/05/24 16:28:
I saw and evaluated the patient independently. I reviewed the resident�s note and agree with findings and plan as documented by Dr. Christian.
GENERAL: well developed, well nourished, female in no apparent distress
HEENT: NC/AT--no O2 requirements
HEART: regular rate and rhythm, +S1, +S2
LUNGS : clear to auscultation bilaterally
ABDOM: soft, nontender, nondistended, + bowel sounds--ostomy in place--JODIE drain in place
EXT: no cyanosis, clubbing--bruised right wrist--2-3+ LE edema bilaterally--
NEUROLOGIC: grossly intact
deconditioned--due to surgery, chronic arthritis issues, (edema per pt)--PT/OT--needs to start moving, OOB to chair etc--plan for SNF
fevers-- ongoing--on Ertapenem-- possible sources (infected paracolic gutter, infarcted/infarcting omentum, left moderate pleural effusion, hematoma felt most likely by ID)--plan was to have IR placed drain today 06/04/2024, but Dr. Villalobos did not
believe the perisplenic collection was approachable nor the left gutter collection was worth draining as per colorectal surgery----continue Invanz x 2 weeks per ID
Acute sigmoid diverticulitis with perforation--apprec colorectal surgery--exp lap with ostomy and JODIE drain (still in place) on 05/24/24--Patient tolerating 1800-calorie diabetic diet well
edema--bilateral LE--weights up (99kg on admission, 106 kg this AM)--pt says it impacts her ability to rehab--cont IV diuresis--follow weights
Multifactorial shock -septic/hypovolemic--Patient previously requiring postop vasopressor support--resolved
Bacteroids distasonis bacteremia with ESBL E. coli positive wound cultures (peritonitis)--positive intraoperative wound cultures with Intermittent fevers--thought to be due to possible Perisplenic hematoma--CXR with LLL atelectasis, pna,
effusion?-- chest US shows moderate pleural effusion --apprec ID--cont Invanz (2 weeks per ID--day 5 today)--has midline
Acute blood loss anemia--s/p 2 units PRBC this admission (did require)--JODIE with serosanguineous drainage--follow HGB--transfuse if HGB < 7
TIFFANI --resolved---AGAP metabolic acidosis--resolved
Hyponatremia--likely volume overload--IV lasix should help--increase to BID
Acute transaminitis--likely due to all above-- improved
Type 2 DM--insulin requiring --Hemoglobin A1c of 7.4--apprec DM DIRECTOR TALENT ACQUISITION assistance
H/o Coarctation of the Aorta--s/p prior aortic stenting--Continue ASA--Monitor blood pressure
DVT Prophylaxis: Heparin subq
Code Status-- Full Code
Original Note:
Today's Communication/Plan
-
continue IV diuresis
Work with PT
Continue abx
Assessment / Plan
Assessment / Plan
#Acute sigmoid diverticulitis with perforation
-CT scan in ED showing sigmoid diverticulitis with perforation
-Patient underwent elective exploratory laparotomy resection and Caridad procedure
-Patient postop day 13
-Patient has a JODIE drain in, last reading was 15 mL serosanguineous fluid colorectal planning on removing before discharge
-brown soft stool output on ostomy bag
-Patient tolerating 1800-calorie diabetic diet well
# Multifactorial shock -septic/hypovolemic
-Patient previously requiring postop vasopressor support
-Off pressors
# Bacteroids distasonis bacteremia
ESBL ecoli peritonitis
Perisplenic hematoma
-Intraoperative abdominal fluid culture growing ESBL E. coli
-Bacteroides isolated preoperatively on blood culture 1 set, repeat negative
-Continue to have persistent leukocytosis, Currently stable we will continue to monitor
-Abx have changed to Invanz by ID, Currently day 5
-Pt has mid line and will get abx through this line on discharge
#Intermittent fevers
#Pleural effusion
-Patient has been having variable intermittent fevers overnight
-Origin unclear
-Last night patient had 1 reading of fevers
-Patient is asymptomatic, fever of unknown origin workup was initiated
-Chest x-ray demonstrated a left basilar opacity, redness potential pneumonia, atelectasis or pleural effusion
-Follow-up left-sided chest ultrasound demonstrated moderate pleural effusion
-will continue diuresis with 40mg IV lasix BID
-repeat 1 view cxr in am
-UA with culture taken
-ID believes temperature spikes may be secondary to a hematoma near the spleen, hematomas unnameable to iRad drainage
-ID recommending 2 weeks of empiric Invanz, currently day 5
# Acute blood loss anemia
-s/p 2 units PRBC this admission
-JODIE drain with dark red serosanguineous drainage, Last output reading was 15 mL
-Patient's hemoglobin down trended from 8.3-7.5
-Stable
-monitor CBC
-Transfuse if hemoglobin drops below 7
#TIFFANI
AGAP metabolic acidosis
Hyponatremia
-Renal function has normalized
-Hyponatremia has resolved, 136 on today's labs
-IV Lasix 40 BID
# Acute transaminitis
- improved
# IDDM
-Hemoglobin A1c of 7.4
-Patient requiring insulin gtt. support in ICU
-Maintain on and NovoLog with sliding scale
-Diabetic nurse practitioner managing
# Coarctation of the Aorta
-Systolic murmur heard on exam
- s/p prior aortic stenting.
- Continue ASA
-Monitor blood pressure
#. Iatrogenic volume overload
-Patient came in 99 kg, up to 107 kg
-Down to 106 kg today
-Status post 80 mg IV Lasix
-40 IV Lasix BID
-Will continue to reassess volume status and need for diuresis with weights and clinical exam
DVT Prophylaxis: Heparin subq
Code Status: Full
Diet: Diabetic
Anticipated Discharge: 24 - 48 hours
Subjective/Interval History
-
Date of Service: June 05, 2024
No acute events overnight
Objective Data
-
Labs:
Laboratory Results
06/05/24
05:50
WBC 9.4
Hgb 7.5 L
Hct 22.9 L
Plt Count 394
Sodium 136
Potassium 3.7
Chloride 96 L
Carbon Dioxide 31 H
BUN 15
Creatinine 0.9
Glucose 166 H
Calcium 7.7 L
Vital Signs:
Vital Signs
Temp Pulse Resp BP Pulse Ox
98.4 F 91 17 127/65 91
06/05/24 08:00 06/05/24 08:39 06/05/24 08:00 06/05/24 08:39 06/05/24 10:45
I&O
06/04/24 06/05/24 06/06/24
06:59 06:59 06:59
Intake Total 1720 / 1720 240 / 240
Output Total 1380 / 1380 1110 / 1110 800 / 800
Balance 340 / 340 -870 / -870 -800 / -800
Review of Systems
-
History Source: Patient
Constitutional: Reports No Symptoms
Respiratory: Reports No Symptoms
Cardiac: Reports No Symptoms
Abdomen/GI: Reports No Symptoms
Physical Exam
-
General: Well Developed, Well Nourished, No Apparent Distress, Comfortable and Conversant
Respiratory: Clear to Auscultation
Cardiac: Regular Rhythm and S1/S2
GI: Soft, Nontender, Nondistended and Normal Bowel Sounds
Skin: Warm and Dry
Neuro: Awake, Alert, Oriented and AO x 3
Psych: Calm and Intact Judgement/Insight
Data Reviewed
-
Labs: Labs Reviewed by me and Discussed with Physician
[2024-06-05 15:00] VITALS: BP 126/69
[2024-06-05] MEDS: NON-FORMULARY ITEM SC (16:32)
[2024-06-05 17:31] LABS: Glucose - Point of Care 204 mg/dl (70-99)
[2024-06-05] MEDS: LOVENOX 40 MG SC (17:59)
[2024-06-05] MEDS: NOVOLOG FLEXPEN-MODERATE RESISTANCE 3 UNITS SC (18:00)
[2024-06-05 20:46] VITALS: BP 140/63
[2024-06-05 22:05] LABS: Glucose - Point of Care 150 mg/dl (70-99)
[2024-06-05 23:00] VITALS: BP 137/67
[2024-06-06] MEDS: NON-FORMULARY ITEM 1 UNIT SC (03:00)
--- NOTE | 2024-06-06 03:00 | PTCARENOTE ---
Patient's [facility] medication profiled and administered. Medication placed in patient drawer.
[2024-06-06] MEDS: TYLENOL 650 MG PO ×3 (03:11→20:59)
[2024-06-06 06:00] VITALS: BMI 36.8
[2024-06-06 06:30] LABS: Hematocrit 23.2 % (37.0-47.0); Hemoglobin 7.6 g/dL (12.0-16.0); Mean Corp Hgb Conc. 32.8 g/dL (33.0-37.0); Mean Corpuscular Hgb 29.3 pg (27.0-31.0); Mean Corpuscular Volume 89.6 fL (81.0-99.0); Mean Platelet Volume 11.2 fL (7.4-10.4); Platelet Count 373 10^3/uL (130-400); Red Blood Cell Count 2.59 10^6/uL (4.20-5.40); Red Cell Dist. Width 15.4 % (11.5-14.5)
[2024-06-06 06:45] LABS: Blood Urea Nitrogen 17 mg/dl (7-17); Calcium 7.8 mg/dl (8.4-10.2); Carbon Dioxide 32 mmol/L (22-30); Chloride 97 mmol/L (98-107); Estimated Creatinine Clearance 91 ml/min; Glucose 148 mg/dl (70-99); Magnesium 1.5 mg/dl (1.6-2.3); Potassium 3.5 mmol/L (3.5-5.1); Sodium 136 mmol/L (135-145); eGFR > 60.00
--- NOTE | 2024-06-06 07:38 | PN.DE.MGMTRT ---
Insulin Management
- -
06/06/2024: Diabetes Management Follow up:
Patient admitted 05/19 with acute sigmoid diverticulitis with perforation. PMH endometrial CA, breast CA, HTN, HCL, steroid induced diabetes. Prior to admission was taking 19 units NovoLog AC with Mounjaro 2.[address] Cordova
and Omer Ndiaye PA-c at [facility]. Recently was started on Mounjaro and Jardiance and had frequent low blood sugars. She states she could not get an appointment with Omer so she called her primary doctor who told her to stop Lantus and
Jardiance due to hypoglycemia. A1C is 7.4, Cr 1.5, eGFR 39.65. Extubated 05/23, transitioned off of glycemic protocol 05/25.
Patient is awake and A/O x3, pleasant, able to discuss diabetes management.
POD# 15, doing well. 06/05 premeal Glucose stable and in range of 150 to 194. Fasting today 148.
Will make no changes to current regimen: Continue NovoLog 4 units AC with moderate corrective, Jardiance 10 mg daily and Lantus 8 units in AM, with Mounjaro 5 mg weekly on Monday.
Pt states that Jardiance will not be provided to her while in rehab due to cost. She has requested script for Jardiance to be sent to pharmacy so her son can pick it up and have it ready to take to rehab.
Discussed with patient and nurse.
Diabetes History
- -
Type of Diabetes: 2 requiring insulin
Pre-Admission Diabetes Regimen
06/06/24
05:43
Creatinine 0.8
Lab Results
Hemoglobin A1c 7.4 % (4.0-5.6) H 05/20/24 05:23
Insulin Pump Settings
IP Diabetes Regimen
06/05/24 06/05/24 06/05/24
08:22 11:54 17:29
Glucose
POC Glucose 198 H 194 H 204 H
06/05/24 06/06/24
22:03 05:43
Glucose 148 H
POC Glucose 150 H
Meal type: Lunch
Meal type: Breakfast
Amount consumed: 100%
Amount consumed: 95%
Patient Education
[2024-06-06 07:39] VITALS: BP 140/65
[2024-06-06] MEDS: MAGNESIUM SULFATE 100 IV (08:07)
[2024-06-06] MEDS: COZAAR 50 MG PO ×2 (08:08→20:59)
[2024-06-06] MEDS: PROCARDIA XL (EXTENDED RELEASE) 30 MG PO ×2 (08:08→20:59)
[2024-06-06] MEDS: PROTONIX 40 MG PO (08:08)
[2024-06-06] MEDS: LOW STRENGTH ASPIRIN 81 MG PO (08:08)
[2024-06-06] MEDS: LOPRESSOR 50 MG PO ×2 (08:08→20:59)
[2024-06-06] MEDS: DESENEX/MITRAZOL/ZEASORB 1 APPLIC TOPICAL ×2 (08:09→21:00)
[2024-06-06] MEDS: LASIX 40 MG IV (08:09)
[2024-06-06] MEDS: FARXIGA 10 MG PO (08:09)
[2024-06-06] MEDS: NOVOLOG FLEXPEN 4 UNITS SC ×3 (08:15→17:32)
[2024-06-06] MEDS: LANTUS 0.08 UNITS SC (08:15)
[2024-06-06] MEDS: NOVOLOG FLEXPEN-MODERATE RESISTANCE SC ×2 (08:15→17:30)
[2024-06-06 08:16] LABS: Glucose - Point of Care 138 mg/dl (70-99)
--- NOTE | 2024-06-06 10:14 | W.PN.CRS1 ---
Today's Communication / Plan
-
dispo planning
antibiotics per ID
ZEKE to be removed prior to d/c
Assessment/Plan
-
58-year-old female with PMH of recurrent diverticulitis (multiple episodes over the last 25 years), recent UTI on 04/29 seen in the [facility] ED, HTN, DM (on Mounjaro), breast cancer s/p resection and chemo, endometrial cancer s/p LETI/BSO,? Aortic
stent who presented with acute abdominal pain, CT concerning for perforated diverticulitis with flecks of free air around the abdomen; patient initially managed nonoperatively as there was no signs of peritonitis or hemodynamic instability; however,
patient did not improve and a repeat CT scan showed worsening pneumoperitoneum with persistent inflammation of the sigmoid colon
POD#15 Caridad's; postop was on pressors and intubated
Off pressors and extubated by POD2; pRBCx1 given on 05/22 and 05/23
05/27 CT (for bump in WBC) - LUQ collection c/f perisplenic hematoma, expected post-op changes
Tmax 100.5
WBC 9.0
� WBC still normalized, fevers improving
� Continue pain control; Tylenol, oxycodone, continue Dilaudid as needed
� Continue lovenox for DVT PPx
� Continue ZEKE to bulb suction; plan to remove prior to discharge
� Appreciate WOCN
- Appreciate PT� recommending rehab for discharge
� Appreciate hospitalist
- Dispo� rehab planning - anticipate the next day or two
Subjective Data
Procedure
05/22/2024- 1) exploratory laparotomy 2) Caridad's resection (sigmoidectomy with rectopexy)
Subjective Data
Date of Service: June 06, 2024
Patient states she was 'achy' last night but otherwise is doing well. She is tolerating a diet. She has no nausea or vomiting. Her stoma has output.
Objective Data
-
Vital Signs
Temp Pulse Resp BP Pulse Ox
99.1 F 94 17 140/65 94
06/06/24 07:39 06/06/24 08:09 06/06/24 07:39 06/06/24 08:09 06/06/24 07:39
Intake & Output
06/05/24 06/06/24 06/07/24
06:59 06:59 06:59
Intake Total 240 / 240 920 / 920
Output Total 1110 / 1110 3715 / 3715
Balance -870 / -870 -2795 / -2795
Intake:
Oral fluids 240 / 240 920 / 920
Output:
Liquid stool amount 250 / 250 240 / 240
Colostomy 250 / 250 240 / 240
Drain Output (Total) 60 / 60 125 / 125
Right Abdomen 60 / 60 125 / 125
Urine, Voided 800 / 800 3350 / 3350
Other:
How many times incontinent 2
MODERATE amount urine
How many times incontinent 1 2
SATURATED amount urine
Lab Results
06/06/24 05:43
06/06/24 05:43
Physical Exam
-
General: No Acute Distress and AOx3
Abdomen: Soft, Non Distended, Non Tender and Other (colostomy warm and pink with output, midline c/d/i, zeke with serous output)
Skin: Warm and Dry
--- NOTE | 2024-06-06 10:20 | WOUNDNOTE ---
SACRAL/BUTTOCKS (with photo flash)
--- NOTE | 2024-06-06 10:23 | WOUNDNOTE ---
WO RN note: Patient's sacral ulcer pink with yellow fibrin. Patient willing to be turned more and she worked with PT yesterday. Bariatric air chair cushion in room. Patient is on a [facility] air bed. Skin on heels intact. Patient turns with 1
assist. RN Student Maritza assisted with turning patient. Dressing applied to sacrum. Patient turned to L semi side lying position. Colostomy appliance changed with instruction using Morganza wafer # [id number], Mario seal and Vineet pouch #[id number].
Stoma flush, pink with medial mucocutaneous separation with yellow slough. Minimal peristomal skin. Instructed patient use of light dusting of miconazole powder followed by no sting barrier wipe to red rash like skin with each wafer change as
needed. Since no peristomal creases noted with HOB elevated, used flat wafer instead of convex wafer. Ostomy supplies in room. Instructed patient she may be a candidate for a closed end pouch at rehab or home if the pouch doesn't need emptying more
than 2 times a day. Will updated discharge instructions. Plan is rehab transfer when discharged. Next appliance change due Monday or Monday. Updated FRANCESCA Michaud re: mucocutaneous separation. Will follow as needed.
--- NOTE | 2024-06-06 10:45 | W.PN.HOSP.TC ---
Addendum entered and electronically signed by Sharmin Khan MD 06/06/24 17:53:
I saw and evaluated the patient independently. I reviewed the resident�s note and agree with findings and plan as documented by Dr. Christian.
GENERAL: well developed, well nourished, female in no apparent distress
HEENT: NC/AT--no O2 requirements
HEART: regular rate and rhythm, +S1, +S2
LUNGS : clear to auscultation bilaterally
ABDOM: soft, nontender, nondistended, + bowel sounds--ostomy in place--JODIE drain in place
EXT: no cyanosis, clubbing--bruised right wrist--2-3+ LE edema bilaterally--
NEUROLOGIC: grossly intact
deconditioned--due to surgery, chronic arthritis issues, (edema per pt)--PT/OT--needs to start moving, OOB to chair etc--plan for SNF
fevers-- ongoing--on Ertapenem-- possible sources (infected paracolic gutter, infarcted/infarcting omentum, left moderate pleural effusion, hematoma felt most likely by ID)--plan was to have IR placed drain today 06/04/2024, but Dr. Villalobos did not
believe the perisplenic collection was approachable nor the left gutter collection was worth draining as per colorectal surgery----continue Invanz x 2 weeks per ID
Acute sigmoid diverticulitis with perforation--apprec colorectal surgery--exp lap with ostomy and JODIE drain (still in place) on 05/24/24--Patient tolerating 1800-calorie diabetic diet well
edema--bilateral LE--weights up (99kg on admission, 106 kg this AM)--pt says it impacts her ability to rehab--cont IV diuresis--follow weights--pt developing contraction alkalosis--will change IV lasix BID to 40 mg oral daily starting tomorrow
Multifactorial shock -septic/hypovolemic--Patient previously requiring postop vasopressor support--resolved
Bacteroids distasonis bacteremia with ESBL E. coli positive wound cultures (peritonitis)--positive intraoperative wound cultures with Intermittent fevers--thought to be due to possible Perisplenic hematoma--CXR with LLL atelectasis, pna,
effusion?-- chest US shows moderate pleural effusion --apprec ID--cont Invanz (2 weeks per ID--day 5 today)--has midline
Acute blood loss anemia--s/p 2 units PRBC this admission (did require)--JODIE with serosanguineous drainage--follow HGB--transfuse if HGB < 7
TIFFANI --resolved---AGAP metabolic acidosis--resolved
Hyponatremia--likely volume overload--IV lasix should help--increase to BID
Acute transaminitis--likely due to all above-- improved
Type 2 DM--insulin requiring --Hemoglobin A1c of 7.4--apprec DM VICE PRESIDENT TALENT MANAGEMENT assistance
H/o Coarctation of the Aorta--s/p prior aortic stenting--Continue ASA--Monitor blood pressure
DVT Prophylaxis: Heparin subq
Code Status-- Full Code
Original Note:
Today's Communication/Plan
-
Continue work with physical therapy
Continue diuresis
Assessment / Plan
Assessment / Plan
#Acute sigmoid diverticulitis with perforation
-CT scan in ED showing sigmoid diverticulitis with perforation
-Patient underwent elective exploratory laparotomy resection and Caridad procedure
-Patient postop day 14
-Patient has a JODIE drain in, last reading was 15 mL serosanguineous fluid colorectal planning on removing before discharge
-brown soft stool output on ostomy bag
-Patient tolerating 1800-calorie diabetic diet well
# Multifactorial shock -septic/hypovolemic
-Patient previously requiring postop vasopressor support
-Off pressors
# Bacteroids distasonis bacteremia
ESBL ecoli peritonitis
Perisplenic hematoma
-Intraoperative abdominal fluid culture growing ESBL E. coli
-Bacteroides isolated preoperatively on blood culture 1 set, repeat negative
-Continue to have persistent leukocytosis, Currently stable we will continue to monitor
-Abx have changed to Invanz by ID, Currently day 5
-Pt has mid line and will get abx through this line on discharge
#Intermittent fevers
#Pleural effusion
-Patient has been having variable intermittent fevers overnight
-Origin unclear
-Last night patient had 1 reading of fevers
-Patient is asymptomatic, fever of unknown origin workup was initiated
-Chest x-ray demonstrated a left basilar opacity, redness potential pneumonia, atelectasis or pleural effusion
-Follow-up left-sided chest ultrasound demonstrated moderate pleural effusion
-CT chest demonstrated pleural effusion has become small, seems to be improving
-will continue diuresis with 80 mg Lasix p.o.
-UA with culture taken
-ID believes temperature spikes may be secondary to a hematoma near the spleen, hematomas unnameable to iRad drainage
-ID recommending 2 weeks of empiric Invanz, currently day 5
# Acute blood loss anemia
-s/p 2 units PRBC this admission
-JODIE drain with dark red serosanguineous drainage, Last output reading was 15 mL
-Stable
-Last reading 7.6
-monitor CBC
-Transfuse if hemoglobin drops below 7
#TIFFANI
AGAP metabolic acidosis
Hyponatremia
-Renal function has normalized
-Hyponatremia has resolved, 136 on today's labs
-IV Lasix 80 mg p.o.
# Acute transaminitis
- improved
# IDDM
-Hemoglobin A1c of 7.4
-Patient requiring insulin gtt. support in ICU
-Maintain on and NovoLog with sliding scale
-Diabetic nurse practitioner managing
# Coarctation of the Aorta
-Systolic murmur heard on exam
- s/p prior aortic stenting.
- Continue ASA
-Monitor blood pressure
#. Iatrogenic volume overload
-Patient came in 99 kg, up to 107 kg
-Down to 103 kg today
-Status post 80 mg IV Lasix
- 80 mg p.o. Lasix
-Will continue to reassess volume status and need for diuresis with weights and clinical exam
DVT Prophylaxis: Heparin subq
Code Status: Full
Diet: Diabetic
Anticipated Discharge: 24 - 48 hours
Subjective/Interval History
-
Date of Service: June 06, 2024
No acute events overnight
Patient reports urinating frequently
Objective Data
-
Labs:
Laboratory Results
06/06/24
05:43
WBC 9.0
Hgb 7.6 L
Hct 23.2 L
Plt Count 373
Sodium 136
Potassium 3.5
Chloride 97 L
Carbon Dioxide 32 H
BUN 17
Creatinine 0.8
Glucose 148 H
Calcium 7.8 L
Vital Signs:
Vital Signs
Temp Pulse Resp BP Pulse Ox
99.1 F 94 17 140/65 94
06/06/24 07:39 06/06/24 08:09 06/06/24 07:39 06/06/24 08:09 06/06/24 07:39
I&O
06/05/24 06/06/24 06/07/24
06:59 06:59 06:59
Intake Total 240 / 240 920 / 920
Output Total 1110 / 1110 3715 / 3715
Balance -870 / -870 -2795 / -2795
Review of Systems
-
Constitutional: Reports No Symptoms
Respiratory: Reports No Symptoms
Cardiac: Reports No Symptoms
Abdomen/GI: Reports Abdominal Pain
Genitourinary: Reports Frequency
Physical Exam
-
General: Well Developed, Well Nourished, No Apparent Distress, Conversant and Morbidly Obese
Respiratory: Clear to Auscultation
Cardiac: Regular Rhythm and S1/S2
GI: Soft, Nontender, Nondistended and Normal Bowel Sounds
Musculoskeletal: Edema, Right Lower Extrem and Edema, Left Lower Extrem
Skin: Warm and Dry
Neuro: Awake, Alert, Oriented and AO x 3
Psych: Calm and Intact Judgement/Insight
Data Reviewed
-
CT Scan: Report Reviewed by me and Discussed with Physician
Labs: Labs Reviewed by me and Discussed with Physician
[2024-06-06 11:46] LABS: Glucose - Point of Care 156 mg/dl (70-99)
--- NOTE | 2024-06-06 11:49 | W.PN.ID1 ---
Date of Service
Date of Service: June 06, 2024
Today's Communication
Continue antibiotics per
Assessment / Plan
Diverticulitis with diverticular perforation
- s/p diverting colostomy (05/22/2024).
- Intra-op splenic capsular tear with likely hematoma
Leukocytosis
- normalized
Recovery of ESBL E. coli from surgery
Bacteroides bacteremia
Low-grade temperatures
HTN
DM
Hx breast CA
Hx endometrial CA
Diverticulitis
Recommendations:
WBC normalized.
Trend fever curve. Low grade temps may be secondary to hematoma.
Location of collection is not amenable to IR drainage.
Monitor drain output.
Given that it is unknown whether the collection is infected or not, would continue with 2 week course of ertapenam.
Script script completed and placed on paper chart.
����������������������������������������������������������
Chief Complaint
-: Other (Abdominal infection)
Subjective / Review of Systems
Review of Systems: No Fever and No Chills
Vital Signs / Physical Exam
Vital Signs
Vital Signs
Temp Pulse Resp BP Pulse Ox
99.1 F 94 17 140/65 94
06/06/24 07:39 06/06/24 08:09 06/06/24 07:39 06/06/24 08:09 06/06/24 07:39
Physical Exam
Constitutional: No Acute Distress, Comfortable and Non-toxic
Head: Normocephalic
Eyes: No Conjunctival Hemorrhage and Sclera Anicteric
Cardiovascular: S1/S2; Negative S3/S4 or Murmur
Pulmonary: Clear and Non Labored; Negative Wheezes or Rales
Gastrointestinal: Soft, Non Distended and Other (Ostomy in place.)
Extremities: Edema; Negative Cyanosis or Erythema
Neurological: Awake and Alert
Psychological: Calm
Objective Data
Lab Data
Lab Results
06/06/24 05:43
06/06/24 05:43
PT 16.1 Sec (11.4-14.6) H 05/22/24 19:57
INR 1.28 05/22/24 19:57
APTT 28.3 Sec (23.4-35.0) 05/22/24 19:57
Estimated Creat Clear 91 ml/min 06/06/24 05:43
Lactic Acid 1.2 mmol/L (0.7-2.0) 05/20/24 22:09
Total Bilirubin 0.7 mg/dl (0.2-1.3) 05/30/24 09:05
AST 24 U/L (14-36) 05/30/24 09:05
ALT 19 U/L (0-35) 05/30/24 09:05
Alkaline Phosphatase 78 U/L (38-126) 05/30/24 09:05
Most recent labs reviewed.
Micro Results:
06/02/24 09:36 Blood Culture - Preliminary
Blood/Venous No Growth in 4 days- Final report to follow
06/02/24 12:02 Blood Culture - Preliminary
Blood/Venous No Growth in 72 hours- Final report to follow
05/22/24 08:00 Wound Culture - Final
Abdomen Escherichia coli - ESBL
Gram Stain - Final
05/22/24 08:00 Anaerobic Culture - Final
Abdomen
05/19/24 20:48 Blood Culture - Final
Blood/Venous Bacteroides distasonis
Gram Stain - Final
05/21/24 17:56 Blood Culture - Final
Blood/Venous No Growth - Final Report
Imaging:
06/04/2024 CT abdomen/pelvis with contrast: Heterogeneous collection in the left upper quadrant, superior to the spleen and upper stomach. The patient has a history of splenic laceration during splenic flexure takedown, and this most likely
represents a hematoma. Measurements without significant change from examination of May 27, 2024. Although this was not a CT angiography examination, there is no CT evidence to suggest significant active bleeding. There is fluid in the left
paracolic gutter and extending slightly medially in the left lower abdomen adjacent to small bowel loops. This fluid has slightly increased since examination May 27, 2024. There is a drainage catheter with its tip is in the inferior aspect of
this fluid collection. There is an unusual ovoid fat, fluid, and air density in the midline abdomen posterior to the abdominal wall. This is felt to likely represent necrotic omentum, and superimposed infection cannot be excluded. There is no
evidence of a drainable collection at this time. Moderate subcutaneous edema. This is slightly improved from examination of May 27, 2024.
05/27/2024 CT abdomen/pelvis with contrast: There is 7 x 8 x 3 cm intermediate density heterogeneous left subdiaphragmatic fluid collection containing a small amount of extraluminal gas. Differential diagnosis for this collection includes hematoma
and abscess. Sigmoidectomy with left lower quadrant colostomy. Moderate ascites including areas of loculated fluid in the abdomen and pelvis. Small left pleural effusion with compressive atelectasis at the posterior left lung base. Please see
full dictation for additional detail.
[2024-06-06] MEDS: ROXICODONE 5 MG PO (12:12)
[2024-06-06] MEDS: INVANZ 60 MG IV (12:13)
[2024-06-06] MEDS: NOVOLOG FLEXPEN-MODERATE RESISTANCE 1 UNITS SC (13:25)
[2024-06-06 14:56] VITALS: BP 142/67
--- NOTE | 2024-06-06 15:30 | CM ---
Reviewed the chart notes and spoke with the patient at the bedside. Reviewed the responses from SNFs. Some are interested, but are still in review. [facility] declined patient at this time. CM continues to be available to
patient/family and is monitoring medical plan for needs at discharge.
Plan: Discharge to SNF/rehab once medically stable, bed found, and precert obtained.
[2024-06-06] MEDS: LASIX 40 MG PO (16:01)
[2024-06-06 16:22] VITALS: BP 121/69; PULSE 102
[2024-06-06 17:18] LABS: Glucose - Point of Care 117 mg/dl (70-99)
[2024-06-06] MEDS: LOVENOX 40 MG SC (17:32)
[2024-06-06 20:58] VITALS: BP 133/72
[2024-06-06 21:44] LABS: Glucose - Point of Care 139 mg/dl (70-99)
--- NOTE | 2024-06-06 22:00 | VATNOTE ---
PT C/O OF PAIN IN HER LUE AT THE SITE OF HER ML. SITE APPEARS SNL AND FLUSHES WELL WITH NO INDICATION OF ANY INFILTRATION LEAKAGE OR PHLELBITIS. PT STATE PAIN STARTED AFTER RD DONE THIS AM. WARM BLANKET WRAPPED AROUND LUE AND PCN TO ADMINISTER
TYLENOL ER PT REQUEST. PT NEEDS ML FOR IV ABX TILL 06/14. WILL CONTINUE TO MONITOR.
[2024-06-06 23:23] VITALS: BP 124/65
[2024-06-07 06:00] VITALS: BMI 36.4
[2024-06-07 06:41] LABS: Hematocrit 24.1 % (37.0-47.0); Hemoglobin 7.9 g/dL (12.0-16.0); Mean Corp Hgb Conc. 32.8 g/dL (33.0-37.0); Mean Corpuscular Hgb 28.2 pg (27.0-31.0); Mean Corpuscular Volume 86.1 fL (81.0-99.0); Platelet Count 421 10^3/uL (130-400); Red Cell Dist. Width 15.3 % (11.5-14.5); White Blood Cell Count 9.9 10^3/uL (4.8-10.8)
[2024-06-07 07:05] LABS: Blood Urea Nitrogen 15 mg/dl (7-17); Carbon Dioxide 35 mmol/L (22-30); Chloride 95 mmol/L (98-107); Estimated Creatinine Clearance 90 ml/min; Glucose 115 mg/dl (70-99); Magnesium 2.2 mg/dl (1.6-2.3); Potassium 3.7 mmol/L (3.5-5.1); Sodium 137 mmol/L (135-145); eGFR > 60.00
--- NOTE | 2024-06-07 07:24 | PN.DE.MGMTRT ---
Insulin Management
- -
06/07/2024: Diabetes Management F/U:
Patient admitted 05/19 with acute sigmoid diverticulitis with perforation. PMH endometrial CA, breast CA, HTN, HCL, steroid induced diabetes. Prior to admission was taking 19 units NovoLog AC with Mounjaro 2.[address] Cordova
and Omer Ndiaye PA-c at [facility]. Recently was started on Mounjaro and Jardiance and had frequent low blood sugars. She states she could not get an appointment with Omer so she called her primary doctor who told her to stop Lantus and
Jardiance due to hypoglycemia. A1C is 7.4, Cr 1.5, eGFR 39.65. Extubated 05/23, transitioned off of glycemic protocol 05/25.
Patient is awake and A/O x3, pleasant, able to discuss diabetes management.
POD# 16, doing well. 06/06 premeal Glucose stable and in range of 117 to 156. Fasting today 115.
Will make no changes to current regimen: Continue NovoLog 4 units AC with moderate corrective, Jardiance 10 mg daily and Lantus 8 units in AM, with Mounjaro 5 mg weekly on Monday.
Pt states that Jardiance will not be provided to her while in rehab due to cost. She has requested script for Jardiance to be sent to pharmacy so her son can pick it up and have it ready to take to rehab.
Discussed with patient and nurse.
Diabetes History
- -
Type of Diabetes: 2 requiring insulin
Pre-Admission Diabetes Regimen
06/07/24
05:55
Creatinine 0.8
Lab Results
Hemoglobin A1c 7.4 % (4.0-5.6) H 05/20/24 05:23
Insulin Pump Settings
IP Diabetes Regimen
06/06/24 06/06/24 06/06/24
08:14 11:44 17:17
Glucose
POC Glucose 138 H 156 H 117 H
06/06/24 06/07/24
21:41 05:55
Glucose 115 H
POC Glucose 139 H
Meal type: Dinner
Amount consumed: 100%
Patient Education
[2024-06-07 07:40] VITALS: BP 146/75
[2024-06-07 07:43] LABS: Glucose - Point of Care 133 mg/dl (70-99)
[2024-06-07] MEDS: NOVOLOG FLEXPEN-MODERATE RESISTANCE SC ×3 (08:00→17:53)
--- NOTE | 2024-06-07 08:46 | W.PN.HOSP.TC ---
Addendum entered and electronically signed by Sharmin Khan MD 06/07/24 14:55:
I saw and evaluated the patient independently. I reviewed the resident�s note and agree with findings and plan as documented by Dr. Christian.
GENERAL: well developed, well nourished, female in no apparent distress
HEENT: NC/AT--no O2 requirements
HEART: regular rate and rhythm, +S1, +S2
LUNGS : clear to auscultation bilaterally
ABDOM: soft, nontender, nondistended, + bowel sounds--ostomy in place--JODIE drain in place
EXT: no cyanosis, clubbing--bruised right wrist--2-3+ LE edema bilaterally--
NEUROLOGIC: grossly intact
deconditioned--due to surgery, chronic arthritis issues, (edema per pt)--PT/OT--needs to start moving, OOB to chair etc--plan for SNF, when bed available
fevers-- ongoing--on Ertapenem-- possible sources (infected paracolic gutter, infarcted/infarcting omentum, left moderate pleural effusion, hematoma felt most likely by ID)--plan was to have IR placed drain today 06/04/2024, but Dr. Villalobos did not
believe the perisplenic collection was approachable nor the left gutter collection was worth draining as per colorectal surgery----continue Invanz x 2 weeks per ID
Acute sigmoid diverticulitis with perforation--apprec colorectal surgery--exp lap with ostomy and JODIE drain (still in place) on 05/24/24--Patient tolerating 1800-calorie diabetic diet well
edema--bilateral LE--weights up (99kg on admission, 106 kg this AM)--pt says it impacts her ability to rehab--cont IV diuresis--follow weights--pt developing contraction alkalosis--stop diuresis
Multifactorial shock -septic/hypovolemic--Patient previously requiring postop vasopressor support--resolved
Bacteroids distasonis bacteremia with ESBL E. coli positive wound cultures (peritonitis)--positive intraoperative wound cultures with Intermittent fevers--thought to be due to possible Perisplenic hematoma--CXR with LLL atelectasis, pna,
effusion?-- chest US shows moderate pleural effusion --apprec ID--cont Invanz (2 weeks per ID--day 7, cont through 06/14/24)--has midline
Acute blood loss anemia--s/p 2 units PRBC this admission (did require)--JODIE with serosanguineous drainage--follow HGB--transfuse if HGB < 7
TIFFANI --resolved---AGAP metabolic acidosis
Hyponatremia--likely volume overload--IV lasix should help--increase to BID
Acute transaminitis--likely due to all above-- improved
Type 2 DM--insulin requiring --Hemoglobin A1c of 7.4--apprec DM SOFTWARE CONFIGURATION ANALYST assistance
H/o Coarctation of the Aorta--s/p prior aortic stenting--Continue ASA--Monitor blood pressure
DVT Prophylaxis: Heparin subq
Code Status-- Full Code
Original Note:
Today's Communication/Plan
-
Discontinue diuresis
Tentatively planning discharge to intermediate facility
Assessment / Plan
Assessment / Plan
#Acute sigmoid diverticulitis with perforation
-CT scan in ED showing sigmoid diverticulitis with perforation
-Patient underwent elective exploratory laparotomy resection and Caridad procedure
-Patient postop day 15
-Patient has a JODIE drain in, last reading was 15 mL serosanguineous fluid colorectal planning on removing before discharge
-brown soft stool output on ostomy bag
-Patient tolerating 1800-calorie diabetic diet well
# Multifactorial shock -septic/hypovolemic
-Patient previously requiring postop vasopressor support
-Off pressors
# Bacteroids distasonis bacteremia
ESBL ecoli peritonitis
Perisplenic hematoma
-Intraoperative abdominal fluid culture growing ESBL E. coli
-Bacteroides isolated preoperatively on blood culture 1 set, repeat negative
-Continue to have persistent leukocytosis, Currently stable we will continue to monitor
-Abx have changed to Invanz by ID, Currently day 6
-Pt has mid line and will get abx through this line on discharge
#Intermittent fevers
#Pleural effusion
-Patient has been having variable intermittent fevers overnight
-Origin unclear
-No fevers overnight
-Patient is asymptomatic, fever of unknown origin workup was initiated
-Chest x-ray demonstrated a left basilar opacity, redness potential pneumonia, atelectasis or pleural effusion
-Follow-up left-sided chest ultrasound demonstrated moderate pleural effusion
-CT chest demonstrated pleural effusion has become small, seems to be improving
-Discontinue diuresis
-UA with culture taken
-ID believes temperature spikes may be secondary to a hematoma near the spleen, hematomas unnameable to iRad drainage
-ID recommending 2 weeks of empiric Invanz, currently day 6
# Acute blood loss anemia
-s/p 2 units PRBC this admission
-JODIE drain with dark red serosanguineous drainage, Last output reading was 15 mL
-Stable
-Last reading 7.9
-monitor CBC
-Transfuse if hemoglobin drops below 7
#TIFFANI
AGAP metabolic acidosis
Hyponatremia
-Renal function has normalized
-Hyponatremia has resolved, 137 on today's labs
# Acute transaminitis
- improved
# IDDM
-Hemoglobin A1c of 7.4
-Patient requiring insulin gtt. support in ICU
-Maintain on and NovoLog with sliding scale
-Diabetic nurse practitioner managing
# Coarctation of the Aorta
-Systolic murmur heard on exam
- s/p prior aortic stenting.
- Continue ASA
-Monitor blood pressure
#. Iatrogenic volume overload
-Patient came in 99 kg, up to 107 kg
-Down to 103 kg today
-Status post diuresis with IV and oral Lasix
-Will continue to reassess volume status and need for diuresis with weights and clinical exam
DVT Prophylaxis: Heparin subq
Code Status: Full
Diet: Diabetic
Anticipated Discharge: Today
Subjective/Interval History
-
Date of Service: June 07, 2024
No acute events overnight
Colorectal tentatively planning drain removal
Objective Data
-
Labs:
Laboratory Results
06/07/24
05:55
WBC 9.9
Hgb 7.9 L
Hct 24.1 L
Plt Count 421 H
Sodium 137
Potassium 3.7
Chloride 95 L
Carbon Dioxide 35 H
BUN 15
Creatinine 0.8
Glucose 115 H
Calcium 8.0 L
Vital Signs:
Vital Signs
Temp Pulse Resp BP Pulse Ox
98.9 F 94 19 124/65 94
06/06/24 23:23 06/06/24 23:23 06/06/24 23:23 06/06/24 23:23 06/06/24 23:23
I&O
06/06/24 06/07/24 06/08/24
06:59 06:59 06:59
Intake Total 920 / 920 1120 / 1120
Output Total 3715 / 3715 1575 / 1575
Balance -2795 / -2795 -455 / -455
Review of Systems
-
History Source: Patient
Constitutional: Reports No Symptoms
Respiratory: Reports No Symptoms
Cardiac: Reports No Symptoms
Abdomen/GI: Reports Abdominal Pain
Physical Exam
-
General: Well Developed, Well Nourished, No Apparent Distress, Comfortable and Morbidly Obese
Respiratory: Clear to Auscultation
Cardiac: Regular Rhythm and S1/S2
GI: Soft, Nondistended, Normal Bowel Sounds and Tender
Skin: Warm and Dry
Neuro: Awake, Alert, Oriented and AO x 3
Psych: Calm and Intact Judgement/Insight
Data Reviewed
-
CT Scan: Report Reviewed by me and Discussed with Physician
Labs: Labs Reviewed by me and Discussed with Physician
[2024-06-07] MEDS: PROTONIX 40 MG PO (08:58)
[2024-06-07] MEDS: FARXIGA 10 MG PO (08:58)
[2024-06-07] MEDS: LOW STRENGTH ASPIRIN 81 MG PO (08:58)
[2024-06-07] MEDS: PROCARDIA XL (EXTENDED RELEASE) 30 MG PO ×2 (08:58→20:06)
[2024-06-07] MEDS: LOPRESSOR 50 MG PO ×2 (08:58→20:07)
[2024-06-07] MEDS: COZAAR 50 MG PO ×2 (08:58→20:07)
[2024-06-07] MEDS: NOVOLOG FLEXPEN 4 UNITS SC ×3 (08:59→18:19)
[2024-06-07] MEDS: LANTUS 0.08 UNITS SC (08:59)
[2024-06-07] MEDS: DESENEX/MITRAZOL/ZEASORB 1 APPLIC TOPICAL ×2 (08:59→20:09)
--- NOTE | 2024-06-07 09:02 | W.PN.CRS1 ---
Today's Communication / Plan
-
JODIE drain removed
Okay for DC from our standpoint
Assessment/Plan
-
58-year-old female with PMH of recurrent diverticulitis (multiple episodes over the last 25 years), recent UTI on 04/29 seen in the [facility] ED, HTN, DM (on Mounjaro), breast cancer s/p resection and chemo, endometrial cancer s/p LETI/BSO,? Aortic
stent who presented with acute abdominal pain, CT concerning for perforated diverticulitis with flecks of free air around the abdomen; patient initially managed nonoperatively as there was no signs of peritonitis or hemodynamic instability; however,
patient did not improve and a repeat CT scan showed worsening pneumoperitoneum with persistent inflammation of the sigmoid colon
POD#16 Caridad's; postop was on pressors and intubated
Off pressors and extubated by POD2; pRBCx1 given on 05/22 and 05/[address] (for bump in WBC) - LUQ collection c/f perisplenic hematoma, expected post-op changes
Tmax afebrile over 24 hours
WBC 9.9
� WBC still normalized, afebrile for 24 hours
� Continue pain control; Tylenol, oxycodone, continue Dilaudid as needed
� Continue lovenox for DVT PPx
� Jodie removed at bedside
� Appreciate WOCN
- Appreciate PT� recommending rehab for discharge
� Appreciate hospitalist
- Dispo�okay for discharge from our standpoint. Antibiotics per ID. Should follow-up in the office in about a week for postop appointment and staple removal. Discussed with patient and son at bedside.
Subjective Data
Procedure
05/22/2024- 1) exploratory laparotomy 2) Caridad's resection (sigmoidectomy with rectopexy)
Subjective Data
Date of Service: June 07, 2024
Patient states she feels well today. She has no complaints other than mild 'achiness' in her abdomen.
Objective Data
-
Vital Signs
Temp Pulse Resp BP Pulse Ox
98.9 F 94 19 124/65 94
06/06/24 23:23 06/07/24 08:58 06/06/24 23:23 06/07/24 08:58 06/06/24 23:23
Intake & Output
06/06/24 06/07/24 06/08/24
06:59 06:59 06:59
Intake Total 920 / 920 1120 / 1120
Output Total 3715 / 3715 1575 / 1575
Balance -2795 / -2795 -455 / -455
Intake:
Oral fluids 920 / 920 1120 / 1120
Output:
Liquid stool amount 240 / 240 50 / 50
Colostomy 240 / 240 50 / 50
Drain Output (Total) 125 / 125 75 / 75
Right Abdomen 125 / 125 75 / 75
Urine, Voided 3350 / 3350 1450 / 1450
Other:
How many times incontinent 2
SATURATED amount urine
Lab Results
06/07/24 05:55
06/07/24 05:55
Physical Exam
-
General: No Acute Distress and AOx3
Abdomen: Soft, Non Distended, Non Tender and Other (incision c/d/i, colostomy warm and pink, JODIE drain serous)
Skin: Warm and Dry
[2024-06-07] MEDS: TYLENOL 650 MG PO (10:00)
[2024-06-07] MEDS: INVANZ 60 MG IV (12:07)
[2024-06-07 12:30] LABS: Glucose - Point of Care 134 mg/dl (70-99)
[2024-06-07] MEDS: ROXICODONE 10 MG PO (14:04)
--- NOTE | 2024-06-07 15:40 | CM ---
Reviewed the chart notes and spoke with the patient and her son at the bedside. Additional referral sent to [facility] at request of patient. [facility] and [facility] in [place] are able to accept, but patient feels they are
to far. Patient wanted to hear back from [facility], voice message left for call back. CM continues to be available to patient/family and is monitoring medical plan for needs at discharge.
Plan: SNF once bed found an precert obtained.
[2024-06-07 15:55] VITALS: BP 146/75
[2024-06-07 16:13] VITALS: BP 124/71; PULSE 88; O2SAT 94
[2024-06-07] MEDS: LOVENOX 40 MG SC (17:12)
[2024-06-07 17:23] LABS: Glucose - Point of Care 119 mg/dl (70-99)
[2024-06-07 21:45] LABS: Glucose - Point of Care 99 mg/dl (70-99)
[2024-06-07 23:59] VITALS: BP 136/77
[2024-06-08] MEDS: TYLENOL 650 MG PO ×3 (00:05→23:01)
[2024-06-08 06:00] VITALS: BMI 36.2
[2024-06-08 07:20] LABS: Hematocrit 23.7 % (37.0-47.0); Hemoglobin 7.6 g/dL (12.0-16.0); Mean Corp Hgb Conc. 32.1 g/dL (33.0-37.0); Mean Corpuscular Hgb 27.7 pg (27.0-31.0); Mean Corpuscular Volume 86.5 fL (81.0-99.0); Mean Platelet Volume 10.8 fL (7.4-10.4); Platelet Count 401 10^3/uL (130-400); Red Blood Cell Count 2.74 10^6/uL (4.20-5.40); Red Cell Dist. Width 15.2 % (11.5-14.5); White Blood Cell Count 8.6 10^3/uL (4.8-10.8)
[2024-06-08 07:35] VITALS: BP 150/83
[2024-06-08 07:42] LABS: Blood Urea Nitrogen 13 mg/dl (7-17); Calcium 8.1 mg/dl (8.4-10.2); Carbon Dioxide 34 mmol/L (22-30); Chloride 97 mmol/L (98-107); Estimated Creatinine Clearance 90 ml/min; Glucose 120 mg/dl (70-99); Potassium 3.6 mmol/L (3.5-5.1); Sodium 137 mmol/L (135-145); eGFR > 60.00
[2024-06-08 08:13] LABS: Glucose - Point of Care 136 mg/dl (70-99)
[2024-06-08] MEDS: NOVOLOG FLEXPEN-MODERATE RESISTANCE SC ×2 (09:15→17:08)
[2024-06-08] MEDS: FARXIGA 10 MG PO (09:16)
[2024-06-08] MEDS: PROCARDIA XL (EXTENDED RELEASE) 30 MG PO ×2 (09:16→19:47)
[2024-06-08] MEDS: COZAAR 50 MG PO ×2 (09:17→19:47)
[2024-06-08] MEDS: LOPRESSOR 50 MG PO ×2 (09:17→19:47)
[2024-06-08] MEDS: PROTONIX 40 MG PO (09:17)
[2024-06-08] MEDS: NOVOLOG FLEXPEN 4 UNITS SC ×3 (09:18→18:08)
[2024-06-08] MEDS: LOW STRENGTH ASPIRIN 81 MG PO (09:18)
[2024-06-08] MEDS: LANTUS 0.08 UNITS SC (09:19)
[2024-06-08] MEDS: DESENEX/MITRAZOL/ZEASORB 1 APPLIC TOPICAL ×2 (09:20→19:46)
[2024-06-08] MEDS: ROXICODONE 5 MG PO (11:00)
[2024-06-08] MEDS: INVANZ 60 MG IV (11:01)
--- NOTE | 2024-06-08 11:37 | W.PN.ID1 ---
Date of Service
Date of Service: June 08, 2024
Today's Communication
stable for dc from ID perspective
Assessment / Plan
Diverticulitis with diverticular perforation
- s/p diverting colostomy (05/22/2024).
- Intra-op splenic capsular tear with likely hematoma
Leukocytosis
- normalized
Recovery of ESBL E. coli from surgery
Bacteroides bacteremia
Low-grade temperatures
HTN
DM
Hx breast CA
Hx endometrial CA
Diverticulitis
Recommendations:
WBC normalized.
Location of collection is not amenable to IR drainage.
Drain management per surgery
Given that it is unknown whether the collection is infected or not, would continue with 2 week course of ertapenam.
Script script completed and placed on paper chart by Dr Santamaria
stable for dc from ID perspective
����������������������������������������������������������
Chief Complaint
-: Other (Abdominal infection)
Subjective / Review of Systems
afebrile
bp stable
no events overnight
Vital Signs / Physical Exam
Vital Signs
Vital Signs
Temp Pulse Resp BP Pulse Ox
99.3 F 100 18 150/83 93
06/08/24 07:35 06/08/24 09:17 06/08/24 07:35 06/08/24 09:17 06/08/24 11:32
Physical Exam
Constitutional: No Acute Distress
Cardiovascular: Regular Rate
Pulmonary: Symmetric and Non Labored
Gastrointestinal: Non Distended
Skin: Dry; Negative Rash or Jaundice
Neurological: Negative Awake
Objective Data
Lab Data
Lab Results
06/08/24 07:01
06/08/24 07:01
PT 16.1 Sec (11.4-14.6) H 05/22/24 19:57
INR 1.28 05/22/24 19:57
APTT 28.3 Sec (23.4-35.0) 05/22/24 19:57
Estimated Creat Clear 90 ml/min 06/08/24 07:01
Lactic Acid 1.2 mmol/L (0.7-2.0) 05/20/24 22:09
Total Bilirubin 0.7 mg/dl (0.2-1.3) 05/30/24 09:05
AST 24 U/L (14-36) 05/30/24 09:05
ALT 19 U/L (0-35) 05/30/24 09:05
Alkaline Phosphatase 78 U/L (38-126) 05/30/24 09:05
Most recent labs reviewed.
Micro Results:
06/02/24 12:02 Blood Culture - Final
Blood/Venous No Growth - Final Report
06/02/24 09:36 Blood Culture - Final
Blood/Venous No Growth - Final Report
05/22/24 08:00 Wound Culture - Final
Abdomen Escherichia coli - ESBL
Gram Stain - Final
05/22/24 08:00 Anaerobic Culture - Final
Abdomen
05/19/24 20:48 Blood Culture - Final
Blood/Venous Bacteroides distasonis
Gram Stain - Final
05/21/24 17:56 Blood Culture - Final
Blood/Venous No Growth - Final Report
Imaging:
06/04/2024 CT abdomen/pelvis with contrast: Heterogeneous collection in the left upper quadrant, superior to the spleen and upper stomach. The patient has a history of splenic laceration during splenic flexure takedown, and this most likely
represents a hematoma. Measurements without significant change from examination of May 27, 2024. Although this was not a CT angiography examination, there is no CT evidence to suggest significant active bleeding. There is fluid in the left
paracolic gutter and extending slightly medially in the left lower abdomen adjacent to small bowel loops. This fluid has slightly increased since examination May 27, 2024. There is a drainage catheter with its tip is in the inferior aspect of
this fluid collection. There is an unusual ovoid fat, fluid, and air density in the midline abdomen posterior to the abdominal wall. This is felt to likely represent necrotic omentum, and superimposed infection cannot be excluded. There is no
evidence of a drainable collection at this time. Moderate subcutaneous edema. This is slightly improved from examination of May 27, 2024.
05/27/2024 CT abdomen/pelvis with contrast: There is 7 x 8 x 3 cm intermediate density heterogeneous left subdiaphragmatic fluid collection containing a small amount of extraluminal gas. Differential diagnosis for this collection includes hematoma
and abscess. Sigmoidectomy with left lower quadrant colostomy. Moderate ascites including areas of loculated fluid in the abdomen and pelvis. Small left pleural effusion with compressive atelectasis at the posterior left lung base. Please see
full dictation for additional detail.
[2024-06-08 12:44] LABS: Glucose - Point of Care 152 mg/dl (70-99)
[2024-06-08] MEDS: NOVOLOG FLEXPEN-MODERATE RESISTANCE 1 UNITS SC (13:49)
--- NOTE | 2024-06-08 15:08 | W.PN.HOSP.TC ---
Today's Communication/Plan
-
DC planning
Assessment / Plan
Assessment / Plan
#Acute sigmoid diverticulitis with perforation
-CT scan in ED showing sigmoid diverticulitis with perforation
-Patient underwent elective exploratory laparotomy resection and Caridad procedure
-Patient has a JODIE drain in-colorectal planning on removing before discharge
-brown soft stool output on ostomy bag
-Patient tolerating 1800-calorie diabetic diet well
# Multifactorial shock -septic/hypovolemic
-Patient previously requiring postop vasopressor support
-Off pressors
# Bacteroids distasonis bacteremia
ESBL ecoli peritonitis
Perisplenic hematoma
-Intraoperative abdominal fluid culture growing ESBL E. coli
-Bacteroides isolated preoperatively on blood culture 1 set, repeat negative
-Continue to have persistent leukocytosis, Currently stable we will continue to monitor
-Abx have changed to Invanz by ID, Currently day 7
-Pt has mid line and will get abx through this line on discharge
#Intermittent fevers
#Pleural effusion
-Patient has been having variable intermittent fevers overnight
-Origin unclear
-No fevers overnight
-Patient is asymptomatic, fever of unknown origin workup was initiated
-Chest x-ray demonstrated a left basilar opacity, redness potential pneumonia, atelectasis or pleural effusion
-Follow-up left-sided chest ultrasound demonstrated moderate pleural effusion
-CT chest demonstrated pleural effusion has become small, seems to be improving
-Discontinue diuresis
-UA with culture taken
-ID believes temperature spikes may be secondary to a hematoma near the spleen, hematomas unnameable to iRad drainage
-ID recommending 2 weeks of empiric Invanz, currently day 7
# Acute blood loss anemia
-s/p 2 units PRBC this admission
-JODIE drain with dark red serosanguineous drainage, Last output reading was 15 mL
-Stable
-monitor CBC
-Transfuse if hemoglobin drops below 7
#TIFFANI
AGAP metabolic acidosis
Hyponatremia
-Renal function has normalized
-Hyponatremia has resolved
# Acute transaminitis
- improved
# IDDM
-Hemoglobin A1c of 7.4
-Patient requiring insulin gtt. support in ICU
-Maintain on and NovoLog with sliding scale
-Diabetic nurse practitioner managing
# Coarctation of the Aorta
-Systolic murmur heard on exam
- s/p prior aortic stenting.
- Continue ASA
-Monitor blood pressure
#. Iatrogenic volume overload
-Patient came in 99 kg, up to 107 kg
-Down to 103 kg today
-Status post diuresis with IV and oral Lasix
-Will continue to reassess volume status and need for diuresis with weights and clinical exam
DVT Prophylaxis: Heparin subq
Code Status: Full
Diet: Diabetic
Medically stable for DC to rehab
Anticipated Discharge: > 48 hours
Subjective/Interval History
-
Date of Service: June 08, 2024
Voicing no specific complaints.
Objective Data
-
Labs:
Laboratory Results
06/08/24
07:01
WBC 8.6
Hgb 7.6 L
Hct 23.7 L
Plt Count 401 H
Sodium 137
Potassium 3.6
Chloride 97 L
Carbon Dioxide 34 H
BUN 13
Creatinine 0.8
Glucose 120 H
Calcium 8.1 L
Vital Signs:
Vital Signs
Temp Pulse Resp BP Pulse Ox
99.3 F 100 18 150/83 93
06/08/24 07:35 06/08/24 09:17 06/08/24 07:35 06/08/24 09:17 06/08/24 11:32
I&O
09/13/24 09/14/24 09/15/24
06:59 06:59 06:59
Intake Total 1120 / 1120 610 / 610
Output Total 1575 / 1575 950 / 950
Balance -455 / -455 -340 / -340
Review of Systems
-
Constitutional: Denies Fever
Respiratory: Denies Trouble Breathing
Cardiac: Denies Chest Pain
Abdomen/GI: Denies Abdominal Pain, Nausea or Vomiting
Neuro: Denies Dizzy
Physical Exam
-
General: Comfortable
Respiratory: Non Labored Respirations; Negative Accessory Resp Muscle Use
GI: Soft, Nontender and Ostomy
Neuro: AO x 3
Data Reviewed
-
Labs: Labs Reviewed by me
[2024-06-08 15:41] VITALS: BP 117/68
[2024-06-08 17:09] LABS: Glucose - Point of Care 146 mg/dl (70-99)
[2024-06-08] MEDS: LOVENOX 40 MG SC (17:09)
[2024-06-08 22:00] LABS: Glucose - Point of Care 133 mg/dl (70-99)
[2024-06-08 23:45] VITALS: BP 162/88
[2024-06-09 06:00] VITALS: BMI 35.5
[2024-06-09 07:22] LABS: Glucose - Point of Care 168 mg/dl (70-99)
[2024-06-09 07:25] VITALS: BP 161/85
[2024-06-09] MEDS: LOW STRENGTH ASPIRIN 81 MG PO (07:57)
[2024-06-09] MEDS: PROCARDIA XL (EXTENDED RELEASE) 30 MG PO ×2 (07:57→20:20)
[2024-06-09] MEDS: COZAAR 50 MG PO ×2 (07:57→20:20)
[2024-06-09] MEDS: FARXIGA 10 MG PO (07:58)
[2024-06-09] MEDS: LANTUS 0.08 UNITS SC (07:58)
[2024-06-09] MEDS: LOPRESSOR 50 MG PO ×2 (07:58→20:20)
[2024-06-09] MEDS: PROTONIX 40 MG PO (07:58)
[2024-06-09] MEDS: NOVOLOG FLEXPEN-MODERATE RESISTANCE 1 UNITS SC (07:59)
[2024-06-09] MEDS: NOVOLOG FLEXPEN 4 UNITS SC ×3 (07:59→17:59)
[2024-06-09] MEDS: TYLENOL 650 MG PO ×3 (08:09→23:14)
--- NOTE | 2024-06-09 08:43 | W.PN.CRS1 ---
Addendum entered and electronically signed by Cruzito Contreras MD 06/09/24 09:19:
Patient seen and examined. Agree with assessment plan as documented below.
No new complaints. Low-grade fever overnight. Denies any worsening pain. No nausea or vomiting.
Gen: NAD
Abd: soft, NT, obese, non-peritoneal, incision c/d/i - no erythema, ecchymosis or drainage, ostomy PPV - stool and flatus
POD#18 Caridad's; postop was on pressors and intubated. Off pressors and extubated by POD2
05/27 CT (for bump in WBC) - LUQ collection c/f perisplenic hematoma, expected post-op changes
06/03 US chest with moderate pleural effusion
06/04 CT with staple perisplenic hematoma, no abscess, necrotic omentum noted
Being followed on ABX by ID. Leukocytosis resolved but still with low grade fevers. Tmax of 100.4 overnight and now mildly tachycardic. Sats low 90's.
Denies n/v or worsening pain
Tolerating diet, stoma productive of stool/flatus
Low-grade fever, tachycardia, and low sats likely related to atelectasis secondary to pulmonary effusion reactive from splenic blood/fluid collection combined with general medical condition. Less likely a developing splenic abscess given lack of
significant abdominal pain in the LUQ (though certainly in the differential). Discussion with infectious disease and hospitalist, plan for CT scan of the chest/abdomen/pelvis.
- CT chest/abd/pelvis given changes to vital signs; will d/w ID and hospitalist team
- OOB/ambulate, IS
- Repeat labs
- Continue current diet
Original Note:
Today's Communication / Plan
-
Follow fever trend
Assessment/Plan
-
58-year-old female with PMH of recurrent diverticulitis (multiple episodes over the last 25 years), recent UTI on 04/29 seen in the [facility], HTN, DM (on Mounjaro), breast cancer s/p resection and chemo, endometrial cancer s/p LETI/BSO,? Aortic
stent who presented with acute abdominal pain, CT concerning for perforated diverticulitis with flecks of free air around the abdomen; patient initially managed nonoperatively as there was no signs of peritonitis or hemodynamic instability; however,
patient did not improve and a repeat CT scan showed worsening pneumoperitoneum with persistent inflammation of the sigmoid colon
POD#18 Caridad's; postop was on pressors and intubated. Off pressors and extubated by POD2
/ CT (for bump in WBC) - LUQ collection c/f perisplenic hematoma, expected post-op changes
06/03 US chest with moderate pleural effusion
06/04 CT with staple perisplenic hematoma, no abscess, necrotic omentum noted
Being followed on ABX by ID. Leukocytosis resolved but still with low grade fevers. Tmax of 100.4 overnight and now mildly tachycardic. Sats low 90's.
Denies n/v or worsening pain
Tolerating diet, stoma productive of stool/flatus
- Continue current diet
- May need reimaging of the chest/abd/pelvis given changes to vital signs; will d/w ID and hospitalist team
� Appreciate WOCN
- Appreciate PT� recommending rehab for discharge
� Appreciate hospitalist
Subjective Data
Procedure
05/22/2024- 1) exploratory laparotomy 2) Caridad's resection (sigmoidectomy with rectopexy)
Subjective Data
Date of Service: June 09, 2024
Patient seen and examined at bedside with Dr. Contreras. Denies n/v. Tolerating diet. Fever overnight, she notes she has also been encouraged to take deeper breaths at noc as well as her O2 has been dropping. She denies worsening abdominal pain.
Objective Data
-
Vital Signs
Temp Pulse Resp BP Pulse Ox
100 F 106 18 161/85 91
06/09/24 07:25 06/09/24 07:58 06/09/24 07:25 06/09/24 07:58 06/09/24 07:25
Intake & Output
06/08/24 06/09/24 06/10/24
06:59 06:59 06:59
Intake Total 610 / 610 1200 / 1200
Output Total 950 / 950 600 / 600
Balance -340 / -340 600 / 600
Intake:
Oral fluids 610 / 610 1200 / 1200
Output:
Urine, Voided 950 / 950 600 / 600
Other:
How many times incontinent 3
SATURATED amount urine
Number of unmeasured liquid
stools
Colostomy 1
Lab Results
06/08/24 07:01
06/08/24 07:01
Physical Exam
-
General: No Acute Distress and AOx3
Abdomen: Soft, Non Distended, Tender (mildly tender just below stoma) and Bowel Movement (stoma pink/viable and productive of loose brown stool)
Skin: Warm and Dry
Wound: No Signs of Infection
Incision: Clear, Dry, Intact (iintact staple line) and No Skin Erythema
[2024-06-09] MEDS: DESENEX/MITRAZOL/ZEASORB 1 APPLIC TOPICAL ×2 (09:18→20:23)
[2024-06-09] MEDS: OMNIPAQUE 50 ML PO (09:56)
--- NOTE | 2024-06-09 10:00 | PTCARENOTE ---
Attempted to change patient's wet brief. She refused, stating that she just got comfortable and didn't want to move again. Will try again shortly.
[2024-06-09 10:41] LABS: Hematocrit 22.9 % (37.0-47.0); Hemoglobin 7.6 g/dL (12.0-16.0); Mean Corp Hgb Conc. 33.2 g/dL (33.0-37.0); Mean Corpuscular Hgb 28.1 pg (27.0-31.0); Mean Corpuscular Volume 84.8 fL (81.0-99.0); Mean Platelet Volume 10.8 fL (7.4-10.4); Platelet Count 418 10^3/uL (130-400); Red Cell Dist. Width 15.3 % (11.5-14.5); White Blood Cell Count 9.7 10^3/uL (4.8-10.8)
--- NOTE | 2024-06-09 10:45 | PTCARENOTE ---
Patient allowed this nurse and tech Darien to change her wet brief and perform mac hygiene. Duoderm placed on sacral ulcer stage 2. Patient instructed on importance of keeping the area dry and alleviating pressure.
[2024-06-09 11:07] LABS: Blood Urea Nitrogen 12 mg/dl (7-17); Calcium 8.3 mg/dl (8.4-10.2); Carbon Dioxide 31 mmol/L (22-30); Chloride 98 mmol/L (98-107); Estimated Creatinine Clearance 102 ml/min; Glucose 134 mg/dl (70-99); Potassium 3.7 mmol/L (3.5-5.1); Sodium 137 mmol/L (135-145); eGFR > 60.00
--- NOTE | 2024-06-09 11:23 | W.PN.ID1 ---
Date of Service
Date of Service: June 09, 2024
Today's Communication
Borderline fever overnight
for CT c/a/p with iv contrast
Assessment / Plan
Diverticulitis with diverticular perforation
- s/p diverting colostomy (05/22/2024).
- Intra-op splenic capsular tear with likely hematoma
Leukocytosis
- normalized
Recovery of ESBL E. coli from surgery
Bacteroides bacteremia
Low-grade temperatures
HTN
DM
Hx breast CA
Hx endometrial CA
Diverticulitis
Recommendations:
Borderline fever overnight
for CT c/a/p with iv contrast
WBC normalized.
Location of collection is not amenable to IR drainage.
Drain management per surgery
Given that it is unknown whether the collection is infected or not, would continue with 2 week course of ertapenam.
Script script completed and placed on paper chart by Dr Santamaria
����������������������������������������������������������
Chief Complaint
-: Other (Abdominal infection)
Subjective / Review of Systems
borderline fevers
denies: headache, sinus tenderness, sore throat, cough, nausea, vomiting, change in output from ostomy, new rashes, joint pain, pain over PIVs
no new complaints
Vital Signs / Physical Exam
Vital Signs
Vital Signs
Temp Pulse Resp BP Pulse Ox
100 F 106 18 161/85 91
06/09/24 07:25 06/09/24 07:58 06/09/24 07:25 06/09/24 07:58 06/09/24 07:25
Physical Exam
Constitutional: No Acute Distress
Cardiovascular: Regular Rate and S1/S2; Negative Murmur or Rub
Pulmonary: Clear and Symmetric; Negative Wheezes or Rales
Gastrointestinal: Soft, Non Tender, Non Distended, Normal Bowel Sounds and Other (stoma pink - loose stool in ostomy)
Skin: Warm and Dry; Negative Rash or Jaundice
Wound: Other (dressing clean, dry, intact)
Objective Data
Lab Data
Lab Results
06/09/24 10:29
06/09/24 10:29
PT 16.1 Sec (11.4-14.6) H 05/22/24 19:57
INR 1.28 05/22/24 19:57
APTT 28.3 Sec (23.4-35.0) 05/22/24 19:57
Estimated Creat Clear 102 ml/min 06/09/24 10:29
Lactic Acid 1.2 mmol/L (0.7-2.0) 05/20/24 22:09
Total Bilirubin 0.7 mg/dl (0.2-1.3) 05/30/24 09:05
AST 24 U/L (14-36) 05/30/24 09:05
ALT 19 U/L (0-35) 05/30/24 09:05
Alkaline Phosphatase 78 U/L (38-126) 05/30/24 09:05
Most recent labs reviewed.
Micro Results:
06/09/24 10:30 Blood Culture - Pending
Blood/Venous
06/09/24 10:29 Blood Culture - Pending
Blood/Venous
06/02/24 12:02 Blood Culture - Final
Blood/Venous No Growth - Final Report
06/02/24 09:36 Blood Culture - Final
Blood/Venous No Growth - Final Report
05/22/24 08:00 Wound Culture - Final
Abdomen Escherichia coli - ESBL
Gram Stain - Final
05/22/24 08:00 Anaerobic Culture - Final
Abdomen
05/19/24 20:48 Blood Culture - Final
Blood/Venous Bacteroides distasonis
Gram Stain - Final
05/21/24 17:56 Blood Culture - Final
Blood/Venous No Growth - Final Report
Imaging:
06/04/2024 CT abdomen/pelvis with contrast: Heterogeneous collection in the left upper quadrant, superior to the spleen and upper stomach. The patient has a history of splenic laceration during splenic flexure takedown, and this most likely
represents a hematoma. Measurements without significant change from examination of May 27, 2024. Although this was not a CT angiography examination, there is no CT evidence to suggest significant active bleeding. There is fluid in the left
paracolic gutter and extending slightly medially in the left lower abdomen adjacent to small bowel loops. This fluid has slightly increased since examination May 27, 2024. There is a drainage catheter with its tip is in the inferior aspect of
this fluid collection. There is an unusual ovoid fat, fluid, and air density in the midline abdomen posterior to the abdominal wall. This is felt to likely represent necrotic omentum, and superimposed infection cannot be excluded. There is no
evidence of a drainable collection at this time. Moderate subcutaneous edema. This is slightly improved from examination of May 27, 2024.
05/27/2024 CT abdomen/pelvis with contrast: There is 7 x 8 x 3 cm intermediate density heterogeneous left subdiaphragmatic fluid collection containing a small amount of extraluminal gas. Differential diagnosis for this collection includes hematoma
and abscess. Sigmoidectomy with left lower quadrant colostomy. Moderate ascites including areas of loculated fluid in the abdomen and pelvis. Small left pleural effusion with compressive atelectasis at the posterior left lung base. Please see
full dictation for additional detail.
Care Review
Plan reviewed with: Physician (surgery and IM service)
[2024-06-09 11:31] LABS: Glucose - Point of Care 128 mg/dl (70-99)
[2024-06-09] MEDS: NOVOLOG FLEXPEN-MODERATE RESISTANCE SC ×2 (12:06→16:59)
[2024-06-09] MEDS: INVANZ 60 MG IV (12:07)
--- NOTE | 2024-06-09 12:50 | W.PN.HOSP.TC ---
Today's Communication/Plan
-
CT A/P/C
CW abx
Assessment / Plan
Assessment / Plan
#Acute sigmoid diverticulitis with perforation
-CT scan in ED showing sigmoid diverticulitis with perforation
-Patient underwent elective exploratory laparotomy resection and Caridad procedure
-Patient has a JODIE drain in-colorectal planning on removing before discharge
-brown soft stool output on ostomy bag
-Patient tolerating 1800-calorie diabetic diet well
# Multifactorial shock -septic/hypovolemic
-Patient previously requiring postop vasopressor support
-Off pressors
# Bacteroids distasonis bacteremia
ESBL ecoli peritonitis
Perisplenic hematoma
-Intraoperative abdominal fluid culture growing ESBL E. coli
-Bacteroides isolated preoperatively on blood culture 1 set, repeat negative
- Normalized leukocytosis
-Abx have changed to Invanz by ID, Currently day 8
-Pt has mid line and will get abx through this line on discharge
#Intermittent fevers
#Pleural effusion
-Patient has been having variable intermittent fevers overnight
-Origin unclear
-Low grade fevers overnight
-Patient is asymptomatic, fever of unknown origin workup was initiated
-Chest x-ray demonstrated a left basilar opacity, redness potential pneumonia, atelectasis or pleural effusion
-Follow-up left-sided chest ultrasound demonstrated moderate pleural effusion
-CT chest demonstrated pleural effusion has become small, seems to be improving
-UA with culture taken
-ID believes temperature spikes may be secondary to a hematoma near the spleen, hematomas unnameable to iRad drainage
-ID recommending 2 weeks of empiric Invanz, currently day 7
- Repeat CT A/P/C today for eval of fevers
# Acute blood loss anemia
-s/p 2 units PRBC this admission
-JODIE drain with dark red serosanguineous drainage, Last output reading was 15 mL
-Stable
-monitor CBC
-Transfuse if hemoglobin drops below 7
#TIFFANI
AGAP metabolic acidosis
Hyponatremia
-Renal function has normalized
-Hyponatremia has resolved
# Acute transaminitis
- improved
# IDDM
-Hemoglobin A1c of 7.4
-Patient requiring insulin gtt. support in ICU
-Maintain on and NovoLog with sliding scale
-Diabetic nurse practitioner managing
# Coarctation of the Aorta
-Systolic murmur heard on exam
- s/p prior aortic stenting.
- Continue ASA
-Monitor blood pressure
#. Iatrogenic volume overload
-Patient came in 99 kg, up to 107 kg
-Down to 103 kg today
-Status post diuresis with IV and oral Lasix
-Will continue to reassess volume status and need for diuresis with weights and clinical exam
DVT Prophylaxis: Heparin subq
Code Status: Full
Diet: Diabetic
DW ID and surgery today
Anticipated Discharge: > 48 hours
Subjective/Interval History
-
Date of Service: June 09, 2024
Tolerating diet without nausea or vomiting
Some abdominal discomfort in LLQ
Denie sorethroat , cough or SOB at rest . Says RN noticed low pulse ox at hs and put her on o2 then but now on RA.
Objective Data
-
Labs:
Laboratory Results
06/09/24
10:29
WBC 9.7
Hgb 7.6 L
Hct 22.9 L
Plt Count 418 H
Sodium 137
Potassium 3.7
Chloride 98
Carbon Dioxide 31 H
BUN 12
Creatinine 0.7
Glucose 134 H
Calcium 8.3 L
Vital Signs:
Vital Signs
Temp Pulse Resp BP Pulse Ox
100 F 106 18 161/85 91
06/09/24 07:25 06/09/24 07:58 06/09/24 07:25 06/09/24 07:58 06/09/24 08:00
I&O
06/08/24 06/09/24 06/10/24
06:59 06:59 06:59
Intake Total 610 / 610 1200 / 1200
Output Total 950 / 950 600 / 600
Balance -340 / -340 600 / 600
Review of Systems
-
EENT: Denies Sore Throat
Respiratory: Denies Trouble Breathing
Cardiac: Denies Chest Pain
Neuro: Denies Dizzy
Physical Exam
-
General: No Apparent Distress
HEENT: Moist Mucous Membranes
Respiratory: Clear to Auscultation
Cardiac: Regular Rhythm and S1/S2
GI: Soft, Nondistended, Normal Bowel Sounds and Tender (Some in LLQ but no rebound)
Neuro: AO x 3
Data Reviewed
-
Labs: Labs Reviewed by me
[2024-06-09 14:43] LABS: Glucose - Point of Care 115 mg/dl (70-99)
[2024-06-09 15:40] VITALS: BP 147/81
--- NOTE | 2024-06-09 16:03 | W.PN.UPDATE ---
Update Note
Progress Note Update
S/B: Low grade fevers/mild tachycardia noted. Patient with diminished appetite today and chills. Admits to deep incisional pain upon reflection. CT a/p/c done for further evaluation/work up.
A: CT imaging a/p reflecting abscess to midline abdomen and left paracolic gutter with possible infected hematoma/abscess superior to the spleen. A moderate left pleural effusion and consolidation noted as well on CT chest.
R: Findings discussed with patient. Call placed to patient's son at her request to discuss with no answer. Consult placed to IR to review imaging for abscess drainage if able. Will discuss imaging findings with primary surgeon/surgical team. ID
following on ABX. NPO after MN. Repeat blood cultures sent today. Will defer pulmonary management to primary team.
[2024-06-09 16:37] LABS: Glucose - Point of Care 86 mg/dl (70-99)
[2024-06-09] MEDS: LOVENOX 40 MG SC (17:56)
[2024-06-09 23:00] VITALS: BP 164/84
[2024-06-09 23:12] LABS: Glucose - Point of Care 117 mg/dl (70-99)
[2024-06-10] VITALS (10 sets, daily range): BP systolic 105–173; BP diastolic 67–94; BMI 35.4
[2024-06-10 05:51] LABS: Glucose - Point of Care 113 mg/dl (70-99)
[2024-06-10] MEDS: NOVOLOG FLEXPEN SC (06:48)
[2024-06-10] MEDS: NOVOLOG FLEXPEN-MODERATE RESISTANCE SC ×3 (06:48→17:11)
[2024-06-10 06:56] LABS: Hematocrit 24.7 % (37.0-47.0); Mean Corp Hgb Conc. 32.4 g/dL (33.0-37.0); Mean Corpuscular Hgb 27.9 pg (27.0-31.0); Mean Corpuscular Volume 86.1 fL (81.0-99.0); Mean Platelet Volume 11.1 fL (7.4-10.4); Platelet Count 405 10^3/uL (130-400); Red Blood Cell Count 2.87 10^6/uL (4.20-5.40); Red Cell Dist. Width 15.3 % (11.5-14.5); White Blood Cell Count 8.6 10^3/uL (4.8-10.8)
--- NOTE | 2024-06-10 08:03 | PN.DE.MGMTRT ---
Insulin Management
- -
06/10/2024: Diabetes Management F/U:
Patient admitted 05/19 with acute sigmoid diverticulitis with perforation. PMH endometrial CA, breast CA, HTN, HCL, steroid induced diabetes. Prior to admission was taking 19 units NovoLog AC with Mounjaro 2.[address] Cordova
and Omer Ndiaye PA-c at [facility]. Recently was started on Mounjaro and Jardiance and had frequent low blood sugars. She states she could not get an appointment with Omer so she called her primary doctor who told her to stop Lantus and
Jardiance due to hypoglycemia. A1C is 7.4, Cr 1.5, eGFR 39.65. Extubated 05/23, transitioned off of glycemic protocol 05/25.
Patient is awake and A/O x3. NPO for IR procedure, able to discuss diabetes management. Son-Anshul at bedside and supportive.
POD# 19, doing well. 06/09 premeal Glucose stable and in range of 86 to 168. Fasting today 113.
Will make no changes to current regimen: Continue NovoLog 4 units AC with moderate corrective, Jardiance 10 mg daily and Lantus 8 units in AM, with Mounjaro 5 mg weekly on Monday.
Pt states that Jardiance will not be provided to her while in rehab due to cost. She has requested script for Jardiance to be sent to pharmacy so her son can pick it up and have it ready to take to rehab.
Discussed with patient and nurse.
Diabetes History
- -
Type of Diabetes: 2 requiring insulin
Pre-Admission Diabetes Regimen
06/09/24
10:
Creatinine 0.7
Lab Results
Hemoglobin A1c 7.4 % (4.0-5.6) H 05/20/24 05:23
Insulin Pump Settings
IP Diabetes Regimen
06/09/24 06/09/24 06/09/24
10: 11:29 14:42
Glucose 134 H
POC Glucose 128 H 115 H
06/09/24 06/09/24 06/10/24
16:36 23:10 05:48
Glucose
POC Glucose 86 117 H 113 H
Meal type: Lunch
Meal type: Breakfast
Amount consumed: 10%
Amount consumed: 100%
Patient Education
[2024-06-10 08:14] LABS: Glucose - Point of Care 119 mg/dl (70-99)
--- NOTE | 2024-06-10 09:13 | W.PN.HOSP.TC ---
Addendum entered and electronically signed by Vijay Murphy MD 06/10/24 17:06:
seen and examined by me independently in collaboration with the medical genetics director.
Lab data and imaging data reviewed.
Addendum as below :
Patient without fevers and hemodynamically stable. She is tolerating a diet well without nausea or vomiting. Not much of abdominal pain.
Ostomy output noted. Ostomy functioning well.
CT of the abdomen pelvis and chest noted. Colorectal surgery comments noted.
Went and had the abdominal collection drainage done and drainage catheter put in. Left upper quadrant collection felt may be hematoma and not drained plus might be difficult to aspirate.
Follow Cx data from todays abdo wall drain;cw current abx. ID following.
DC on hold till new collections eval is complete.
Original Note:
Today's Communication/Plan
-
IR drainage of abscesses
Continue antibiotics
Assessment / Plan
Assessment / Plan
#Acute sigmoid diverticulitis with perforation
-CT scan in ED showing sigmoid diverticulitis with perforation
-Patient underwent elective exploratory laparotomy resection and Caridad procedure
-JODIE drain was removed by colorectal in anticipation of discharge to [facility]
-brown soft stool output on ostomy bag
-Patient tolerating 1800-calorie diabetic diet well
# Multifactorial shock -septic/hypovolemic
-Patient previously requiring postop vasopressor support
-Off pressors
# Bacteroids distasonis bacteremia
ESBL ecoli peritonitis
Perisplenic hematoma
-Intraoperative abdominal fluid culture growing ESBL E. coli
-Bacteroides isolated preoperatively on blood culture 1 set, repeat negative
- Normalized leukocytosis
-Abx have changed to Invanz by ID, Currently day 9
-Pt has mid line and will get abx through this line on discharge
#Intermittent fevers
#Pleural effusion
-Patient has been having variable intermittent fevers overnight
-Origin unclear
-Low grade fevers overnight
-Patient is asymptomatic, fever of unknown origin workup was initiated
-Chest x-ray demonstrated a left basilar opacity, redness potential pneumonia, atelectasis or pleural effusion
-UA with culture taken
-ID believes temperature spikes may be secondary to a hematoma near the spleen
-ID recommending 2 weeks of empiric Invanz, currently day 9
-Repeat blood cultures ordered by overnight [employer], patient has been on broad-spectrum antibiotics for at least 9 days.
-Fully expect blood cultures to be negative, will follow-up with ID if positive
-Repeat CT A/P/C yesterday demonstrated multiple abdominal abscesses as well as a moderate right sided pleural effusion
-IR consulted to drain abdominal abscesses
-IR spoken to and decided that the pleural effusion is not large enough to drain, and does not look infectious
# Acute blood loss anemia
-s/p 2 units PRBC this admission
-JODIE drain was removed by colorectal in anticipation for discharge
-Stable
-monitor CBC
-Transfuse if hemoglobin drops below 7
#TIFFANI
AGAP metabolic acidosis
Hyponatremia
-Renal function has normalized
-Hyponatremia has resolved
# Acute transaminitis
- improved
# IDDM
-Hemoglobin A1c of 7.4
-Patient requiring insulin gtt. support in ICU
-Maintain on and NovoLog with sliding scale
-Diabetic nurse practitioner managing
# Coarctation of the Aorta
-Systolic murmur heard on exam
- s/p prior aortic stenting.
- Continue ASA
-Monitor blood pressure
#. Iatrogenic volume overload
-Patient came in 99 kg, up to 107 kg
-Down to 103 kg today
-Status post diuresis with IV and oral Lasix
-Will continue to reassess volume status and need for diuresis with weights and clinical exam
DVT Prophylaxis: Heparin subq
Code Status: Full
Diet: Diabetic
Anticipated Discharge: 24 - 48 hours
Subjective/Interval History
-
Date of Service: June 10, 2024
Patient n.p.o. after midnight
IR tentatively planning to drain splenic hematoma
Patient still having sporadic fevers
Objective Data
-
Labs:
Laboratory Results
06/10/24
05:56
WBC 8.6
Hgb 8.0 L
Hct 24.7 L
Plt Count 405 H
Vital Signs:
Vital Signs
Temp Pulse Resp BP Pulse Ox
99.8 F 109 16 164/86 92
06/10/24 07:30 06/10/24 07:30 06/10/24 07:30 06/10/24 07:30 06/10/24 07:30
I&O
06/09/24 06/10/24 06/11/24
06:59 06:59 06:59
Intake Total 1200 / 1200 1260 / 1260
Output Total 600 / 600 2450 / 2450
Balance 600 / 600 -1190 / -1190
Review of Systems
-
History Source: Patient
Cardiac: Reports No Symptoms
Abdomen/GI: Reports Abdominal Pain; Denies Nausea or Vomiting
Musculoskeletal: Reports Myalgias
Physical Exam
-
General: Well Developed, Well Nourished, No Apparent Distress, Comfortable, Conversant and Morbidly Obese
Respiratory: Clear to Auscultation
Cardiac: Regular Rhythm, S1/S2 and Murmur
GI: Soft, Nondistended, Normal Bowel Sounds, Tender and Ostomy; Negative Distended
Musculoskeletal: Edema, Right Lower Extrem and Edema, Left Lower Extrem
Skin: Warm and Dry
Neuro: Awake, Alert, Oriented and AO x 3
Psych: Calm and Intact Judgement/Insight
Data Reviewed
-
CT Scan: Report Reviewed by me and Discussed with Physician
Labs: Labs Reviewed by me and Discussed with Physician
--- NOTE | 2024-06-10 09:30 | W.PN.CRS1 ---
Today's Communication / Plan
-
IR procedure today
Assessment/Plan
-
58-year-old female with PMH of recurrent diverticulitis (multiple episodes over the last 25 years), recent UTI on 04/29 seen in the [place] [facility] ED, HTN, DM (on Mounjaro), breast cancer s/p resection and chemo, endometrial cancer s/p LETI/BSO,? Aortic
stent who presented with acute abdominal pain, CT concerning for perforated diverticulitis with flecks of free air around the abdomen; patient initially managed nonoperatively as there was no signs of peritonitis or hemodynamic instability; however,
patient did not improve and a repeat CT scan showed worsening pneumoperitoneum with persistent inflammation of the sigmoid colon
POD#19 Caridad's; postop was on pressors and intubated. Off pressors and extubated by POD2
05/27 CT (for bump in WBC) - LUQ collection c/f perisplenic hematoma, expected post-op changes
06/03 US chest with moderate pleural effusion
06/04 CT with staple perisplenic hematoma, no abscess, necrotic omentum noted
Being followed on ABX by ID. Afebrile for 24 hours. Still mildly tachycardic from 100-110
Tolerating diet, stoma productive of stool/flatus
- Consulted IR for drainage of abscess around the wound. Spoke to Dr. Sharam.
- NPO for IR today
� Appreciate WOCN
- Appreciate PT� recommending rehab for discharge
� Appreciate hospitalist
- Antibiotics per ID
Subjective Data
Procedure
05/22/2024- 1) exploratory laparotomy 2) Caridad's resection (sigmoidectomy with rectopexy)
Subjective Data
Date of Service: June 10, 2024
Patient states that she feels okay. She has no nausea or vomiting. She has been tolerating a diet. Her pain is controlled with Tylenol. Her main concern is the findings on her CT scan yesterday.
Objective Data
-
Vital Signs
Temp Pulse Resp BP Pulse Ox
99.8 F 109 16 164/86 92
06/10/24 07:30 06/10/24 07:30 06/10/24 07:30 06/10/24 07:30 06/10/24 07:30
Intake & Output
06/09/24 06/10/24 06/11/24
06:59 06:59 06:59
Intake Total 1200 / 1200 1260 / 1260
Output Total 600 / 600 2450 / 2450
Balance 600 / 600 -1190 / -1190
Intake:
Oral fluids 1200 / 1200 1260 / 1260
Output:
Liquid stool amount 400 / 400
Colostomy 400 / 400
Urine, Voided 600 / 600 2049 / 2049
Other:
How many times incontinent 1
MODERATE amount urine
How many times incontinent 3 1
SATURATED amount urine
Number of unmeasured liquid
stools
Colostomy 1
Lab Results
06/10/24 05:56
06/09/24 10:29
Physical Exam
-
General: No Acute Distress and AOx3
Abdomen: Soft, Non Distended, Non Tender and Other (Colostomy warm and pink with function)
Incision: Clear, Dry, Intact (Q-tip attempted to be placed under the incision given finding on CT, unable to penetrate past the fascia.)
[2024-06-10] MEDS: PROTONIX 40 MG PO (10:43)
[2024-06-10] MEDS: PROCARDIA XL (EXTENDED RELEASE) 30 MG PO ×2 (10:43→20:20)
[2024-06-10] MEDS: LOW STRENGTH ASPIRIN 81 MG PO (10:43)
[2024-06-10] MEDS: COZAAR 50 MG PO ×2 (10:48→20:20)
[2024-06-10] MEDS: LOPRESSOR 50 MG PO ×2 (10:48→20:20)
[2024-06-10] MEDS: TYLENOL PO (10:57)
[2024-06-10] MEDS: DESENEX/MITRAZOL/ZEASORB 1 APPLIC TOPICAL ×2 (10:59→20:23)
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
--- NOTE | 2024-06-10 13:18 | W.PN.UPDATE ---
Update Note
Progress Note Update
8.5F drain placed into large, midline collection.
50 mL bloody/purulent fluid aspirated.
Drain will likely need to be repositioned/upsized given the size and complexity of this collection
I believe the LUQ collection is likely hematoma
--- NOTE | 2024-06-10 13:44 | CM ---
Reviewed the chart notes. Patient had JODIE drain inserted in R mid abdomen. CM Spoke with [facility] Liaison ([phone][facility]. CM continues to be available to patient/family and is monitoring medical plan for needs
at discharge.
Plan: Discharge when medically stable to SNF once bed secured and auth obtained.
[2024-06-10] MEDS: INVANZ 60 MG IV (13:52)
[2024-06-10] MEDS: FARXIGA 10 MG PO (13:52)
[2024-06-10] MEDS: NOVOLOG FLEXPEN 4 UNITS SC ×2 (13:53→17:11)
[2024-06-10] MEDS: LANTUS 0.08 UNITS SC (13:53)
[2024-06-10] MEDS: TYLENOL 650 MG PO ×2 (13:54→22:45)
[2024-06-10 13:58] LABS: Glucose - Point of Care 100 mg/dl (70-99)
--- NOTE | 2024-06-10 14:31 | WOUNDNOTE ---
WO RN note: Patient s/p IR drain R abdomen. Stoma pink flush with mucocutaneous separation medially (not new) and functioning for soft/loose brown stool. Peristomal skin intact. Sacral ulcer 20%pink, 20% yellow slough suspect stage 3 pressure
injury. Patient is a a Centrella Max air with bariatric air chair cushion under her to help off load sacrum. Patient turned to L semi side lying position. Sacral wound care done. Patient encouraged to get out of bed with nursing/PT/OT tomorrow. She
is too tired for colostomy change participation today. Colostomy appliance changed using [place] wafer # [id number], Mario seal and Vineet pouch #[id number]. Ostomy supplies and colostomy teaching folder in room. t/c SPD and ordered more ostomy supplies.
Plan is SNF rehab when discharged. Heels off bed with pillow and air chair cushion.
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
--- NOTE | 2024-06-10 15:51 | W.PN.ID1 ---
Date of Service
Date of Service: June 10, 2024
Today's Communication
Continue antibiotics.
Assessment / Plan
Diverticulitis with diverticular perforation
- s/p diverting colostomy (05/22/2024).
- Intra-op splenic capsular tear with likely hematoma
Leukocytosis
- normalized
Anterior abdominal collection
- s/p drainage today
Recovery of ESBL E. coli from surgery
Bacteroides bacteremia
Low-grade temperatures
HTN
DM
Hx breast CA
Hx endometrial CA
Diverticulitis
Recommendations:
WBC normalized.
S/P drainage of anterior abdominal collection. Notes reviewed, and drain will likely need to be upsized.
Location of LUQ collection is not amenable to IR drainage.
Drain management per surgery
Continue current antibiotics.
Await cultures.
����������������������������������������������������������
Chief Complaint
-: Other (Abdominal infection)
Subjective / Review of Systems
Patient seen and examined. Underwent drain placement of a complex anterior abdominal collection today with recovery of 50 cc of bloody purulent fluid.
Review of Systems: No Fever and No Chills
Vital Signs / Physical Exam
Vital Signs
Vital Signs
Temp Pulse Resp BP Pulse Ox
98.5 F 112 17 161/73 94
06/10/24 13:05 06/10/24 13:27 06/10/24 13:27 06/10/24 13:27 06/10/24 13:26
Physical Exam
Constitutional: No Acute Distress, Comfortable and Non-toxic
Cardiovascular: Regular Rate and S1/S2; Negative Murmur or Rub
Pulmonary: Clear and Symmetric; Negative Wheezes or Rales
Gastrointestinal: Soft, Non Tender, Non Distended, Normal Bowel Sounds and Other (stoma pink - loose stool in ostomy)
Skin: Warm and Dry; Negative Rash or Jaundice
Wound: Other (dressing clean, dry, intact)
Neurological: Awake and Alert
Psychological: Calm
Objective Data
Lab Data
Lab Results
06/10/24 05:56
06/09/24 10:29
PT 16.1 Sec (11.4-14.6) H 05/22/24 19:57
INR 1.28 05/22/24 19:57
APTT 28.3 Sec (23.4-35.0) 05/22/24 19:57
Estimated Creat Clear 102 ml/min 06/09/24 10:29
Lactic Acid 1.2 mmol/L (0.7-2.0) 05/20/24 22:09
Total Bilirubin 0.7 mg/dl (0.2-1.3) 05/30/24 09:05
AST 24 U/L (14-36) 05/30/24 09:05
ALT 19 U/L (0-35) 05/30/24 09:05
Alkaline Phosphatase 78 U/L (38-126) 05/30/24 09:05
Most recent labs reviewed.
Micro Results:
06/10/24 12:54 Wound Culture - Pending
Abdomen Gram Stain - Preliminary
06/09/24 10:30 Blood Culture - Preliminary
Blood/Venous No Growth in 24 hours- Final report to follow
06/09/24 10:29 Blood Culture - Preliminary
Blood/Venous No Growth in 24 hours- Final report to follow
06/02/24 12:02 Blood Culture - Final
Blood/Venous No Growth - Final Report
06/02/24 09:36 Blood Culture - Final
Blood/Venous No Growth - Final Report
05/22/24 08:00 Wound Culture - Final
Abdomen Escherichia coli - ESBL
Gram Stain - Final
05/22/24 08:00 Anaerobic Culture - Final
Abdomen
05/19/24 20:48 Blood Culture - Final
Blood/Venous Bacteroides distasonis
Gram Stain - Final
05/21/24 17:56 Blood Culture - Final
Blood/Venous No Growth - Final Report
Imaging:
06/04/2024 CT abdomen/pelvis with contrast: Heterogeneous collection in the left upper quadrant, superior to the spleen and upper stomach. The patient has a history of splenic laceration during splenic flexure takedown, and this most likely
represents a hematoma. Measurements without significant change from examination of May 27, 2024. Although this was not a CT angiography examination, there is no CT evidence to suggest significant active bleeding. There is fluid in the left
paracolic gutter and extending slightly medially in the left lower abdomen adjacent to small bowel loops. This fluid has slightly increased since examination May 27, 2024. There is a drainage catheter with its tip is in the inferior aspect of
this fluid collection. There is an unusual ovoid fat, fluid, and air density in the midline abdomen posterior to the abdominal wall. This is felt to likely represent necrotic omentum, and superimposed infection cannot be excluded. There is no
evidence of a drainable collection at this time. Moderate subcutaneous edema. This is slightly improved from examination of May 27, 2024.
05/27/2024 CT abdomen/pelvis with contrast: There is 7 x 8 x 3 cm intermediate density heterogeneous left subdiaphragmatic fluid collection containing a small amount of extraluminal gas. Differential diagnosis for this collection includes hematoma
and abscess. Sigmoidectomy with left lower quadrant colostomy. Moderate ascites including areas of loculated fluid in the abdomen and pelvis. Small left pleural effusion with compressive atelectasis at the posterior left lung base. Please see
full dictation for additional detail.
[2024-06-10 17:08] LABS: Glucose - Point of Care 126 mg/dl (70-99)
[2024-06-10] MEDS: LOVENOX 40 MG SC (17:11)
[2024-06-10] MEDS: ROXICODONE 5 MG PO (17:15)
[2024-06-10 21:35] LABS: Glucose - Point of Care 174 mg/dl (70-99)
[2024-06-11 04:57] VITALS: BMI 35.4
[2024-06-11 06:56] LABS: Hemoglobin 7.9 g/dL (12.0-16.0); Red Blood Cell Count 2.81 10^6/uL (4.20-5.40); White Blood Cell Count 8.6 10^3/uL (4.8-10.8)
[2024-06-11 06:57] LABS: Hematocrit 24.6 % (37.0-47.0); Mean Corp Hgb Conc. 32.1 g/dL (33.0-37.0); Mean Corpuscular Hgb 28.1 pg (27.0-31.0); Mean Corpuscular Volume 87.5 fL (81.0-99.0); Platelet Count 393 10^3/uL (130-400); Red Cell Dist. Width 15.3 % (11.5-14.5)
[2024-06-11 07:19] LABS: Blood Urea Nitrogen 13 mg/dl (7-17); Calcium 7.9 mg/dl (8.4-10.2); Carbon Dioxide 30 mmol/L (22-30); Chloride 100 mmol/L (98-107); Estimated Creatinine Clearance 102 ml/min; Glucose 114 mg/dl (70-99); Potassium 3.8 mmol/L (3.5-5.1); Sodium 138 mmol/L (135-145); eGFR > 60.00
[2024-06-11 07:30] VITALS: BP 174/90
--- NOTE | 2024-06-11 07:43 | PN.DE.MGMTRT ---
Insulin Management
- -
06/11/2024: Diabetes Management Follow up:
Patient admitted 05/19 with acute sigmoid diverticulitis with perforation. PMH endometrial CA, breast CA, HTN, HCL, steroid induced diabetes. Prior to admission was taking 19 units NovoLog AC with Mounjaro 2.[address] Cordova
and Omer Ndiaye PA-c at [facility]. Recently was started on Mounjaro and Jardiance and had frequent low blood sugars. She states she could not get an appointment with Omer so she called her primary doctor who told her to stop Lantus and
Jardiance due to hypoglycemia. A1C is 7.4, Cr 1.5, eGFR 39.65. Extubated 05/23, transitioned off of glycemic protocol 05/25.
Patient is awake and A/O x3. Able to discuss diabetes management.
POD# 20, s/p drain insertion 06/10, doing well. 06/10 premeal Glucose stable and in range of 100 to 126. Fasting today 114.
Will make no changes to current regimen: Continue NovoLog 4 units AC with moderate corrective, Jardiance 10 mg daily and Lantus 8 units in AM, with Mounjaro 5 mg weekly on Monday.
Pt states that Jardiance will not be provided to her while in rehab due to cost. She has requested script for Jardiance to be sent to pharmacy so her son can pick it up and have it ready to take to rehab.
Discussed with patient and nurse.
Diabetes History
- -
Type of Diabetes: 2 requiring insulin
Pre-Admission Diabetes Regimen
06/11/24
06:11
Creatinine 0.7
Lab Results
Hemoglobin A1c 7.4 % (4.0-5.6) H 05/20/24 05:23
Insulin Pump Settings
IP Diabetes Regimen
06/10/24 06/10/24 06/10/24
08:13 13:57 17:07
Glucose
POC Glucose 119 H 100 H 126 H
06/10/24 06/11/24
21:33 06:11
Glucose 114 H
POC Glucose 174 H
Meal type: Lunch
Meal type: Breakfast
Amount consumed: 100%
Patient Education
[2024-06-11 07:55] LABS: Glucose - Point of Care 118 mg/dl (70-99)
[2024-06-11] MEDS: PROCARDIA XL (EXTENDED RELEASE) 30 MG PO ×2 (08:39→20:13)
[2024-06-11] MEDS: FARXIGA 10 MG PO (08:39)
[2024-06-11] MEDS: DESENEX/MITRAZOL/ZEASORB 1 APPLIC TOPICAL ×2 (08:40→20:08)
[2024-06-11] MEDS: PROTONIX 40 MG PO (08:40)
[2024-06-11] MEDS: LOPRESSOR 50 MG PO (08:40)
[2024-06-11] MEDS: LOW STRENGTH ASPIRIN 81 MG PO (08:40)
[2024-06-11] MEDS: COZAAR 50 MG PO ×2 (08:40→20:12)
[2024-06-11] MEDS: NOVOLOG FLEXPEN-MODERATE RESISTANCE SC ×3 (08:43→18:09)
--- NOTE | 2024-06-11 09:25 | W.PN.CRS1 ---
Today's Communication / Plan
-
antibiotics per ID
cultures pending
IR drain in place
Assessment/Plan
-
58-year-old female with PMH of recurrent diverticulitis (multiple episodes over the last 25 years), recent UTI on 04/29 seen in the [place] ED, HTN, DM (on Mounjaro), breast cancer s/p resection and chemo, endometrial cancer s/p LETI/BSO,? Aortic
stent who presented with acute abdominal pain, CT concerning for perforated diverticulitis with flecks of free air around the abdomen; patient initially managed nonoperatively as there was no signs of peritonitis or hemodynamic instability; however,
patient did not improve and a repeat CT scan showed worsening pneumoperitoneum with persistent inflammation of the sigmoid colon
POD#20 Caridad's; postop was on pressors and intubated. Off pressors and extubated by POD2
2 CT (for bump in WBC) - LUQ collection c/f perisplenic hematoma, expected post-op changes
06/03 US chest with moderate pleural effusion
10 CT with staple perisplenic hematoma, no abscess, necrotic omentum noted
06/10- IR drain placement into midline collection
Being followed on ABX by ID. Tmax 100.4. Still mildly tachycardic from 100-112
Tolerating diet, stoma productive of stool/flatus
- IR drain in place, will continue. Possible upsizing in the future per radiology.
- Wound cultures pending.
- Continue diet
� Appreciate WOCN
- Appreciate PT� recommending rehab for discharge
� Appreciate hospitalist
- Antibiotics per ID
Subjective Data
Procedure
05/22/2024- 1) exploratory laparotomy 2) Caridad's resection (sigmoidectomy with rectopexy)
Subjective Data
Date of Service: June 11, 2024
Patient states she is feeling improved. She has no nausea or vomiting. Her pain is minimal. She is tolerating a diet.
Objective Data
-
Vital Signs
Temp Pulse Resp BP Pulse Ox
99.8 F 104 16 174/90 91
06/11/24 07:30 06/11/24 08:39 06/11/24 07:30 06/11/24 08:39 06/11/24 07:30
Intake & Output
06/10/24 06/11/24 06/12/24
06:59 06:59 06:59
Intake Total 1260 / 1260 700 / 700
Output Total 2450 / 2450 930 / 930
Balance -1190 / -1190 -230 / -230
Intake:
Oral fluids 1260 / 1260 600 / 600
IV piggybacks 100 / 100
Output:
Liquid stool amount 400 / 400
Colostomy 400 / 400
Drain Output (Total)
Right Abdomen Placed in IR
Urine, Voided 2049 / 2049 900 / 900
Other:
How many times incontinent 1 2
MODERATE amount urine
How many times incontinent 1
SATURATED amount urine
Lab Results
06/11/24 06:11
06/11/24 06:11
Physical Exam
-
General: No Acute Distress and AOx3
Abdomen: Soft, Non Distended, Non Tender and Other (IR drain with old blood mixed with pus)
Skin: Warm and Dry
[2024-06-11] MEDS: TYLENOL 650 MG PO ×2 (09:36→20:16)
[2024-06-11] MEDS: LANTUS 0.08 UNITS SC (09:37)
[2024-06-11] MEDS: NOVOLOG FLEXPEN 4 UNITS SC ×3 (09:37→18:09)
--- NOTE | 2024-06-11 10:36 | W.PN.HOSP.TC ---
Addendum entered and electronically signed by Vijay Murphy MD 06/11/24 15:45:
Seen and examined by me independently in collaboration with the medical administrative technician.
Lab data and imaging data reviewed.
Addendum as below :
Tolerating diet. Low-grade fever yesterday noted. Mild discomfort in the left upper quadrant of the abdomen but otherwise no rebound guarding rigidity.
Culture data from midline collection drainage noted with many bacteria, gram-positive cocci and gram-negative rods. Await identification and sensitivities for changes if need of antibiotics.
ID following.
Original Note:
Today's Communication/Plan
-
Continue antibiotics
Case management to SNF placement
Assessment / Plan
Assessment / Plan
#Acute sigmoid diverticulitis with perforation
-CT scan in ED showing sigmoid diverticulitis with perforation
-Patient underwent elective exploratory laparotomy resection and Caridad procedure
-Postop day 19
-JODIE drain was removed by colorectal in anticipation of discharge to SNF
-brown soft stool output on ostomy bag
-Patient tolerating 1800-calorie diabetic diet well
# Multifactorial shock -septic/hypovolemic
-Patient previously requiring postop vasopressor support
-Off pressors
# Bacteroids distasonis bacteremia
ESBL ecoli peritonitis
Perisplenic hematoma
-Intraoperative abdominal fluid culture growing ESBL E. coli
-Bacteroides isolated preoperatively on blood culture 1 set, repeat negative
- Normalized leukocytosis
-Abx have changed to Invanz by ID, Currently day 10
-Pt has mid line and will get abx through this line on discharge
#Intermittent fevers
#Pleural effusion
-Patient has been having variable intermittent fevers overnight
-Origin unclear
-Low grade fevers
-ID believes temperature spikes may be secondary to a hematoma near the spleen
-ID recommending 2 weeks of empiric Invanz, currently day 10
-Repeat CT A/P/C yesterday demonstrated multiple abdominal abscesses as well as a moderate right sided pleural effusion
-Status post abdominal abscess drainage
-Culture and sensitivity pending, will adjust antibiotics with final results are available
-50 mL bloody and purulent fluid drained from 8.5 [place] catheter yesterday
-Today 30 mL bloody purulent foul-smelling drainage from catheter
# Acute blood loss anemia
-s/p 2 units PRBC this admission
-JODIE drain was removed by colorectal in anticipation for discharge
-Stable
-monitor CBC
-Transfuse if hemoglobin drops below 7
#Hypertension
Patient's blood pressure is elevated
Currently taking 3 blood pressure meds
Patient also tachycardic
Increase metoprolol to 75 twice daily
#TIFFANI
AGAP metabolic acidosis
Hyponatremia
-Renal function has normalized
-Hyponatremia has resolved
# Acute transaminitis
- improved
# IDDM
-Hemoglobin A1c of 7.4
-Patient requiring insulin gtt. support in ICU
-Maintain on and NovoLog with sliding scale
-Diabetic nurse practitioner managing
# Coarctation of the Aorta
-Systolic murmur heard on exam
- s/p prior aortic stenting.
- Continue ASA
-Monitor blood pressure
#. Iatrogenic volume overload
-Patient came in 99 kg, up to 107 kg
-Down to 99 kg
-Status post diuresis with IV and oral Lasix
-Will continue to reassess volume status and need for diuresis with weights and clinical exam
DVT Prophylaxis: Heparin subq
Code Status: Full
Diet: Diabetic
Anticipated Discharge: 24 - 48 hours
Subjective/Interval History
-
Date of Service: June 11, 2024
Patient reports slight abdominal tenderness
IR drainage site tender to palpation, dressed
Patient hypertensive
Objective Data
-
Labs:
Laboratory Results
06/11/24
06:11
WBC 8.6
Hgb 7.9 L
Hct 24.6 L
Plt Count 393
Sodium 138
Potassium 3.8
Chloride 100
Carbon Dioxide 30
BUN 13
Creatinine 0.7
Glucose 114 H
Calcium 7.9 L
Vital Signs:
Vital Signs
Temp Pulse Resp BP Pulse Ox
99.8 F 104 16 174/90 91
06/11/24 07:30 06/11/24 08:39 06/11/24 07:30 06/11/24 08:39 06/11/24 07:30
I&O
06/10/24 06/11/24 06/12/24
06:59 06:59 06:59
Intake Total 1260 / 1260 700 / 700
Output Total 2450 / 2450 930 / 930
Balance -1190 / -1190 -230 / -230
Review of Systems
-
History Source: Patient
Respiratory: Reports No Symptoms
Cardiac: Reports No Symptoms
Abdomen/GI: Reports Abdominal Pain and Pain
Genitourinary: Reports No Symptoms
Musculoskeletal: Reports No Symptoms
Physical Exam
-
General: Well Developed, Well Nourished, No Apparent Distress, Comfortable and Conversant
Respiratory: Clear to Auscultation
Cardiac: Regular Rhythm, S1/S2 and Murmur
GI: Soft, Nondistended, Normal Bowel Sounds and Tender
Musculoskeletal: No Edema
Skin: Warm and Dry
Neuro: Awake, Alert, Oriented and AO x 3
Psych: Calm and Intact Judgement/Insight
Data Reviewed
-
CT Scan: Report Reviewed by me and Discussed with Physician
Labs: Labs Reviewed by me and Discussed with Physician
[2024-06-11] MEDS: ROXICODONE 5 MG PO (12:06)
[2024-06-11] MEDS: INVANZ 60 MG IV (12:26)
--- NOTE | 2024-06-11 13:26 | W.PN.ID1 ---
Date of Service
Date of Service: June 11, 2024
Today's Communication
Continue antibiotics.
Assessment / Plan
Diverticulitis with diverticular perforation
- s/p diverting colostomy (05/22/2024).
- Intra-op splenic capsular tear with likely hematoma
Leukocytosis
- normalized
Anterior abdominal collection
- s/p drainage today
Recovery of ESBL E. coli from surgery
Bacteroides bacteremia
Low-grade temperatures
HTN
DM
Hx breast CA
Hx endometrial CA
Diverticulitis
Recommendations:
WBC normalized.
S/P drainage of anterior abdominal collection. Notes reviewed, and drain will likely need to be upsized.
Location of LUQ collection is not amenable to IR drainage.
Drain management per surgery
Continue current antibiotics.
Await cultures. Preliminary microbiology indicates a mixed infection.
����������������������������������������������������������
Chief Complaint
-: Other (Abdominal infection)
Subjective / Review of Systems
Review of Systems: No Fever and No Chills
Vital Signs / Physical Exam
Vital Signs
Vital Signs
Temp Pulse Resp BP Pulse Ox
99.8 F 104 16 174/90 91
06/11/24 07:30 06/11/24 08:39 06/11/24 07:30 06/11/24 08:39 06/11/24 07:30
Physical Exam
Constitutional: No Acute Distress, Comfortable and Non-toxic
Cardiovascular: Regular Rate and S1/S2; Negative Murmur or Rub
Pulmonary: Clear and Symmetric; Negative Wheezes or Rales
Gastrointestinal: Soft, Non Tender, Non Distended, Normal Bowel Sounds and Other (stoma pink - loose stool in ostomy)
Skin: Warm and Dry; Negative Rash or Jaundice
Wound: Other (dressing clean, dry, intact)
Neurological: Awake and Alert
Psychological: Calm
Objective Data
Lab Data
Lab Results
06/11/24 06:11
06/11/24 06:11
PT 16.1 Sec (11.4-14.6) H 05/22/24 19:57
INR 1.28 05/22/24 19:57
APTT 28.3 Sec (23.4-35.0) 05/22/24 19:57
Estimated Creat Clear 102 ml/min 06/11/24 06:11
Lactic Acid 1.2 mmol/L (0.7-2.0) 05/20/24 22:09
Total Bilirubin 0.7 mg/dl (0.2-1.3) 05/30/24 09:05
AST 24 U/L (14-36) 05/30/24 09:05
ALT 19 U/L (0-35) 05/30/24 09:05
Alkaline Phosphatase 78 U/L (38-126) 05/30/24 09:05
Most recent labs reviewed.
Micro Results:
06/09/24 10:30 Blood Culture - Preliminary
Blood/Venous No Growth in 48 hours- Final report to follow
06/09/24 10:29 Blood Culture - Preliminary
Blood/Venous No Growth in 48 hours- Final report to follow
06/10/24 12:54 Wound Culture - Preliminary
Abdomen Gram Stain - Preliminary
06/02/24 12:02 Blood Culture - Final
Blood/Venous No Growth - Final Report
06/02/24 09:36 Blood Culture - Final
Blood/Venous No Growth - Final Report
05/22/24 08:00 Wound Culture - Final
Abdomen Escherichia coli - ESBL
Gram Stain - Final
05/22/24 08:00 Anaerobic Culture - Final
Abdomen
05/19/24 20:48 Blood Culture - Final
Blood/Venous Bacteroides distasonis
Gram Stain - Final
05/21/24 17:56 Blood Culture - Final
Blood/Venous No Growth - Final Report
Imaging:
06/04/2024 CT abdomen/pelvis with contrast: Heterogeneous collection in the left upper quadrant, superior to the spleen and upper stomach. The patient has a history of splenic laceration during splenic flexure takedown, and this most likely
represents a hematoma. Measurements without significant change from examination of May 27, 2024. Although this was not a CT angiography examination, there is no CT evidence to suggest significant active bleeding. There is fluid in the left
paracolic gutter and extending slightly medially in the left lower abdomen adjacent to small bowel loops. This fluid has slightly increased since examination May 27, 2024. There is a drainage catheter with its tip is in the inferior aspect of
this fluid collection. There is an unusual ovoid fat, fluid, and air density in the midline abdomen posterior to the abdominal wall. This is felt to likely represent necrotic omentum, and superimposed infection cannot be excluded. There is no
evidence of a drainable collection at this time. Moderate subcutaneous edema. This is slightly improved from examination of May 27, 2024.
05/27/2024 CT abdomen/pelvis with contrast: There is 7 x 8 x 3 cm intermediate density heterogeneous left subdiaphragmatic fluid collection containing a small amount of extraluminal gas. Differential diagnosis for this collection includes hematoma
and abscess. Sigmoidectomy with left lower quadrant colostomy. Moderate ascites including areas of loculated fluid in the abdomen and pelvis. Small left pleural effusion with compressive atelectasis at the posterior left lung base. Please see
full dictation for additional detail.
[2024-06-11 13:40] VITALS: BP 152/77; PULSE 88; O2SAT 92
[2024-06-11 14:53] LABS: Glucose - Point of Care 141 mg/dl (70-99)
[2024-06-11 15:20] VITALS: BP 136/79
--- NOTE | 2024-06-11 16:17 | CM ---
Reviewed the chart notes and spoke with the patient at the bedside. [facility] able to accept patient this week. Patient was provided with SNF information. Her son will tour.
[2024-06-11 17:05] LABS: Glucose - Point of Care 118 mg/dl (70-99)
[2024-06-11] MEDS: LOVENOX 40 MG SC (18:09)
[2024-06-11] MEDS: LOPRESSOR 75 MG PO (20:11)
[2024-06-11 22:20] LABS: Glucose - Point of Care 100 mg/dl (70-99)
[2024-06-11 23:22] VITALS: BP 150/80
[2024-06-12] VITALS (7 sets, daily range): BP systolic 141–168; BP diastolic 80–93; BMI 35.2
[2024-06-12] MEDS: ROXICODONE 10 MG PO ×2 (00:52→10:27)
--- NOTE | 2024-06-12 04:24 | DOWNTIME ---
There was a [employer] Team Leader Downtime on 06/12/2024 from 0100 to 06/12/2024 at 0300. Downtime documentation of patient's care, including medication administrations, has been reconciled in the electronic record per guidelines. Refer to the
patient's paper chart under the miscellaneous tab to see printed paper medication records and downtime forms.
--- NOTE | 2024-06-12 07:25 | PN.DE.MGMTRT ---
Insulin Management
- -
06/12/2024: Diabetes Management Follow up:
Patient admitted 05/19 with acute sigmoid diverticulitis with perforation. PMH endometrial CA, breast CA, HTN, HCL, steroid induced diabetes. Prior to admission was taking 19 units NovoLog AC with Mounjaro 2.[address] Cordova
and Omer Ndiaye PA-c at [facility]. Recently was started on Mounjaro and Jardiance and had frequent low blood sugars. She states she could not get an appointment with Omer so she called her primary doctor who told her to stop Lantus and
Jardiance due to hypoglycemia. A1C is 7.4, Cr 1.5, eGFR 39.65. Extubated 05/23, transitioned off of glycemic protocol 05/25.
Patient is awake and A/O x3. Able to discuss diabetes management.
POD# 21, s/p drain insertion 06/10, doing well. 06/11 premeal Glucose stable and in range of 100 to 141. Fasting today 110.
Will make no changes to current regimen: Continue NovoLog 4 units AC with moderate corrective, Farxiga 10 mg daily (at home taking Jardiance 10 mg daily) and Lantus 8 units in AM, with Mounjaro 5 mg weekly on Monday.
Pt states that Jardiance will not be provided to her while in rehab due to cost. She has requested script for Jardiance to be sent to pharmacy so her son can pick it up and have it ready to take to rehab.
Discussed with patient and nurse.
Diabetes History
- -
Type of Diabetes: 2 requiring insulin
Pre-Admission Diabetes Regimen
Lab Results
Hemoglobin A1c 7.4 % (4.0-5.6) H 05/20/24 05:23
Insulin Pump Settings
IP Diabetes Regimen
06/11/24 06/11/24 06/11/24
07:54 14:51 17:04
POC Glucose 118 H 141 H 118 H
06/11/24
22:15
POC Glucose 100 H
Meal type: Dinner
Meal type: Lunch
Meal type: Breakfast
Amount consumed: 100%
Amount consumed: 100%
Amount consumed: 100%
Patient Education
[2024-06-12 07:52] LABS: Glucose - Point of Care 110 mg/dl (70-99)
[2024-06-12] MEDS: NOVOLOG FLEXPEN-MODERATE RESISTANCE SC ×2 (08:08→12:48)
--- NOTE | 2024-06-12 08:39 | W.PN.HOSP.TC ---
Addendum entered and electronically signed by Vijay Murphy MD 06/12/24 17:06:
Seen and examined by me independently in collaboration with the medical communication specialist.
Lab data and imaging data reviewed.
Addendum as below :
Patient without further fevers. Tolerating diet. Abdomen soft. Still some drainage ongoing from the central abdomen collection. Ostomy noted-functioning.
Persistent tachycardia without symptoms noted. Patient on beta-berto but still ongoing tachycardia. Denies any chest pain. Denies any shortness of breath at rest. No prior history of thyroid issues. Check a TSH.
Check a EKG which showed sinus rhythm with no acute ST-T changes. She is on DVT prophylaxis with Lovenox. I do see severe anemia ongoing which is secondary to possible acute inflammation/phlebotomy. Will transfuse 1 more unit of PRBC and follow
the heart rate closely.
Discussed the plan with son at bedside.
Original Note:
Today's Communication/Plan
-
Continue antibiotics
Await culture results
Continue SNF placement with case management
Assessment / Plan
Assessment / Plan
#Acute sigmoid diverticulitis with perforation
-CT scan in ED showing sigmoid diverticulitis with perforation
-Patient underwent elective exploratory laparotomy resection and Caridad procedure
-Postop day 20
-JODIE drain was removed by colorectal in anticipation of discharge to SNF
-brown soft stool output and flatus on ostomy bag
-Patient tolerating 1800-calorie diabetic diet well
# Multifactorial shock -septic/hypovolemic
-Patient previously requiring postop vasopressor support
-Off pressors
# Bacteroids distasonis bacteremia
ESBL ecoli peritonitis
Perisplenic hematoma
-Intraoperative abdominal fluid culture growing ESBL E. coli
-Bacteroides isolated preoperatively on blood culture 1 set, repeat negative
- Normalized leukocytosis
-Abx have changed to Invanz by ID, Currently day 08/08
-Pt has mid line and will get abx through this line on discharge
#Intermittent fevers
#Pleural effusion
-Patient has been having variable intermittent fevers overnight
-Origin unclear
-Low grade fevers
-ID believes temperature spikes may be secondary to a hematoma near the spleen
-ID recommending 2 weeks of empiric Invanz, currently day 11
-Repeat CT A/P/C yesterday demonstrated multiple abdominal abscesses as well as a moderate right sided pleural effusion
-Status post abdominal abscess drainage
-Culture and sensitivity pending, will adjust antibiotics with final results are available
-Bloody and purulent drainage from IR drain, 60 mL in last 24 hours
# Acute blood loss anemia
-s/p 2 units PRBC this admission
-JODIE drain was removed by colorectal in anticipation for discharge
-Stable
-monitor CBC
-Transfuse if hemoglobin drops below 7
-Type and screen and 1 unit packed red blood cells ordered for patient, hemoglobin was not below 7 however she is tachycardic
-Will reevaluate tachycardia after 1 unit packed red blood cell transfusion
#Hypertension
Patient's blood pressure is elevated
Currently taking 3 blood pressure meds
Patient also tachycardic
Increase metoprolol to 75 twice daily
Hypertension has improved however patient still tachycardic
#Tachycardia
Etiology unclear, could be secondary to body habitus
Patient has been consistently tachycardic since admission, running in the high 90s to low 120s
Patient asymptomatic
Check EKG
Iron studies and TSH added on to labs
Type and screen/1 unit PRBC
#TIFFANI
AGAP metabolic acidosis
Hyponatremia
-Renal function has normalized
-Hyponatremia has resolved
# Acute transaminitis
- improved
# IDDM
-Hemoglobin A1c of 7.4
-Patient requiring insulin gtt. support in ICU
-Maintain on and NovoLog with sliding scale
-Diabetic nurse practitioner managing
-Patient's diabetic meds were refilled to pharmacy in anticipation of discharge to SNF
# Coarctation of the Aorta
-Systolic murmur heard on exam
- s/p prior aortic stenting.
- Continue ASA
-Monitor blood pressure
#. Iatrogenic volume overload
-Patient came in 99 kg, up to 107 kg
-Down to 99 kg
-Status post diuresis with IV and oral Lasix
-Will continue to reassess volume status and need for diuresis with weights and clinical exam
DVT Prophylaxis: Heparin subq
Code Status: Full
Diet: Diabetic
Anticipated Discharge: Within 24 hours
Subjective/Interval History
-
Date of Service: June 12, 2024
No fevers overnight
Postop day 20
Ertapenem day 11
Objective Data
-
Vital Signs:
Vital Signs
Temp Pulse Resp BP Pulse Ox
99.2 F 101 16 157/84 93
06/12/24 08:01 06/12/24 08:01 06/12/24 08:01 06/12/24 08:01 06/12/24 08:01
I&O
06/11/24 06/12/24 06/13/24
06:59 06:59 06:59
Intake Total 700 / 700 1440 / 1440
Output Total 930 / 930 960 / 960
Balance -230 / -230 480 / 480
Review of Systems
-
History Source: Patient
Constitutional: Reports No Symptoms
Respiratory: Reports No Symptoms
Cardiac: Reports No Symptoms
Abdomen/GI: Reports No Symptoms
Physical Exam
-
General: Well Developed, Well Nourished, No Apparent Distress, Comfortable and Conversant
Respiratory: Clear to Auscultation
Cardiac: Regular Rhythm, S1/S2 and Murmur
GI: Soft, Nontender, Nondistended and Normal Bowel Sounds
Skin: Warm and Dry
Neuro: Awake, Alert, Oriented and AO x 3
Psych: Calm and Intact Judgement/Insight
Data Reviewed
-
Labs: Labs Reviewed by me and Discussed with Physician
--- NOTE | 2024-06-12 09:05 | W.PN.CRS1 ---
Today's Communication / Plan
-
IR drain in place
fevers improved
dispo planning
Assessment/Plan
-
58-year-old female with PMH of recurrent diverticulitis (multiple episodes over the last 25 years), recent UTI on 04/29 seen in the [place] [facility], HTN, DM (on Mounjaro), breast cancer s/p resection and chemo, endometrial cancer s/p LETI/BSO,? Aortic
stent who presented with acute abdominal pain, CT concerning for perforated diverticulitis with flecks of free air around the abdomen; patient initially managed nonoperatively as there was no signs of peritonitis or hemodynamic instability; however,
patient did not improve and a repeat CT scan showed worsening pneumoperitoneum with persistent inflammation of the sigmoid colon
POD#20 Caridad's; postop was on pressors and intubated. Off pressors and extubated by POD2
05/27 CT (for bump in WBC) - LUQ collection c/f perisplenic hematoma, expected post-op changes
06/03 US chest with moderate pleural effusion
06/04 CT with staple perisplenic hematoma, no abscess, necrotic omentum noted
06/10- IR drain placement into midline collection
Being followed on ABX by ID. Afebrile for 24 hours, Still mildly tachycardic from 100-104 (improving)
Tolerating diet, stoma productive of stool/flatus
- IR drain in place, will continue. Possible upsizing in the future per radiology.
- Wound cultures pending.
- Continue diet
� Appreciate WOCN
- Appreciate PT� recommending rehab for discharge
� Appreciate hospitalist
- Antibiotics per ID
- Dispo planning
Subjective Data
Procedure
05/22/2024- 1) exploratory laparotomy 2) Caridad's resection (sigmoidectomy with rectopexy)
Subjective Data
Date of Service: June 12, 2024
Patient states she is feeling well. She is had a good night sleeping. She has been eating without difficulty. She has no nausea or vomiting and has bowel function.
Objective Data
-
Vital Signs
Temp Pulse Resp BP Pulse Ox
99.2 F 101 16 157/84 93
06/12/24 08:01 06/12/24 08:01 06/12/24 08:01 06/12/24 08:01 06/12/24 08:01
Intake & Output
06/11/24 06/12/24 06/13/24
06:59 06:59 06:59
Intake Total 700 / 700 1440 / 1440
Output Total 930 / 930 960 / 960
Balance -230 / -230 480 / 480
Intake:
Oral fluids 600 / 600 1440 / 1440
IV piggybacks 100 / 100
Output:
Drain Output (Total) 30 / 30 60 / 60
Right Abdomen Placed in IR 30 / 30 60 / 60
Urine, Voided 900 / 900 900 / 900
Other:
How many times incontinent 2
MODERATE amount urine
How many times incontinent 2
SATURATED amount urine
Lab Results
06/11/24 06:11
06/11/24 06:11
Physical Exam
-
General: No Acute Distress and AOx3
Abdomen: Soft, Non Distended, Tender (mild around stoma) and Other (stoma warm and pink, zeke drain with mixed blood and pus)
Skin: Warm and Dry
Wound: Dressing in Place
[2024-06-12] MEDS: LOW STRENGTH ASPIRIN 81 MG PO (09:14)
[2024-06-12] MEDS: FARXIGA 10 MG PO (09:14)
[2024-06-12] MEDS: PROTONIX 40 MG PO (09:14)
[2024-06-12] MEDS: PROCARDIA XL (EXTENDED RELEASE) 30 MG PO ×2 (09:14→21:09)
[2024-06-12] MEDS: LOPRESSOR 75 MG PO ×2 (09:15→21:08)
[2024-06-12] MEDS: LANTUS 0.08 UNITS SC (09:16)
[2024-06-12] MEDS: COZAAR 50 MG PO ×2 (09:17→21:08)
[2024-06-12] MEDS: DESENEX/MITRAZOL/ZEASORB 1 APPLIC TOPICAL ×2 (09:18→21:09)
[2024-06-12] MEDS: NOVOLOG FLEXPEN 4 UNITS SC ×3 (09:18→17:07)
[2024-06-12 11:14] LABS: Glucose - Point of Care 146 mg/dl (70-99)
[2024-06-12] MEDS: INVANZ 60 MG IV (12:08)
[2024-06-12 12:18] LABS: Iron 27 ug/dl (37-170)
[2024-06-12 12:28] LABS: Percent Saturation 18 % (20-50); Total Iron Binding Capacity 149 ug/dl (265-497)
--- NOTE | 2024-06-12 13:25 | PTCARENOTE ---
EKG obtained. Forwarded to Dr. Murphy and resident Anahi
--- NOTE | 2024-06-12 14:07 | PTCARENOTE ---
Pt. own medication not available at this time 1400. Pt's son will bring Mounjaro medication in later tonight.
[2024-06-12] MEDS: NON-FORMULARY ITEM SC (14:09)
[2024-06-12 14:13] LABS: Free T4 1.48 ng/dl (0.78-2.19)
--- NOTE | 2024-06-12 14:24 | CM ---
Addendum entered by Jamia Angel RN 06/12/24 14:44:
Correction [facility] [place]
Original Note:
Reviewed the chart notes and spoke with the patient and her son at the bedside. Patient's son is to tour facilities that were discussed in the multiple meets with patient and son. Awaiting patient's final decision on a facility. Request for
referral to be sent to [facility]. Plan for patient to discharge no later than Monday if patient is medically stable.
Plan: Discharge to SNF/rehab once bed found and auth obtained.
[2024-06-12 14:27] LABS: TSH 3.62 uIU/ml (0.47-4.68)
--- NOTE | 2024-06-12 16:44 | PTCARENOTE ---
Attempted to get patient to stand on the side of the bed for wound dressing change. Pt refused and said she will possibly get up if her son comes back.
[2024-06-12] MEDS: LOVENOX 40 MG SC (17:05)
[2024-06-12] MEDS: NOVOLOG FLEXPEN-MODERATE RESISTANCE 1 UNITS SC (17:07)
[2024-06-12 17:08] LABS: Glucose - Point of Care 156 mg/dl (70-99)
[2024-06-12] MEDS: TYLENOL 650 MG PO (17:09)
[2024-06-12] MEDS: APRESOLINE 10 MG IV (17:12)
--- NOTE | 2024-06-12 17:20 | W.PN.ID1 ---
Date of Service
Date of Service: June 12, 2024
Today's Communication
Continue antibiotics.
Assessment / Plan
Diverticulitis with diverticular perforation
- s/p diverting colostomy (05/22/2024).
- Intra-op splenic capsular tear with likely hematoma
Leukocytosis
- normalized
Anterior abdominal collection
- s/p drainage today
Recovery of ESBL E. coli from surgery
Bacteroides bacteremia
Low-grade temperatures
HTN
DM
Hx breast CA
Hx endometrial CA
Diverticulitis
Recommendations:
WBC normalized.
S/P drainage of anterior abdominal collection. IR felt drain may eventually need upsizing.
Location of LUQ collection is not amenable to IR drainage.
Continue current antibiotics.
Await cultures. Preliminary microbiology indicates a mixed infection. GNR's noted on culture.
����������������������������������������������������������
Chief Complaint
-: Other (Abdominal infection)
Subjective / Review of Systems
Review of Systems: No Fever and No Chills
Vital Signs / Physical Exam
Vital Signs
Vital Signs
Temp Pulse Resp BP Pulse Ox
99.3 F 113 16 165/82 94
06/12/24 10:58 06/12/24 17:12 06/12/24 10:58 06/12/24 17:12 06/12/24 10:58
Physical Exam
Constitutional: No Acute Distress, Comfortable and Non-toxic
Eyes: No Conjunctival Hemorrhage and Sclera Anicteric
Cardiovascular: Regular Rate and S1/S2; Negative S3/S4
Pulmonary: Clear; Negative Wheezes or Rales
Gastrointestinal: Soft, Non Distended and Other (JODIE in place with bloody purulent fluid.)
Extremities: Edema; Negative Cyanosis or Erythema
Neurological: Awake and Alert
Psychological: Calm
Objective Data
Lab Data
Lab Results
06/11/24 06:11
06/11/24 06:11
PT 16.1 Sec (11.4-14.6) H 05/22/24 19:57
INR 1.28 05/22/24 19:57
APTT 28.3 Sec (23.4-35.0) 05/22/24 19:57
Estimated Creat Clear 102 ml/min 06/11/24 06:11
Lactic Acid 1.2 mmol/L (0.7-2.0) 05/20/24 22:09
Total Bilirubin 0.7 mg/dl (0.2-1.3) 05/30/24 09:05
AST 24 U/L (14-36) 05/30/24 09:05
ALT 19 U/L (0-35) 05/30/24 09:05
Alkaline Phosphatase 78 U/L (38-126) 05/30/24 09:05
Most recent labs reviewed.
Micro Results:
06/10/24 12:54 Wound Culture - Preliminary
Abdomen Gram negative bacilli
Gram Stain - Preliminary
06/09/24 10:30 Blood Culture - Preliminary
Blood/Venous No Growth in 72 hours- Final report to follow
06/09/24 10:29 Blood Culture - Preliminary
Blood/Venous No Growth in 72 hours- Final report to follow
06/02/24 12:02 Blood Culture - Final
Blood/Venous No Growth - Final Report
06/02/24 09:36 Blood Culture - Final
Blood/Venous No Growth - Final Report
05/22/24 08:00 Wound Culture - Final
Abdomen Escherichia coli - ESBL
Gram Stain - Final
05/22/24 08:00 Anaerobic Culture - Final
Abdomen
05/19/24 20:48 Blood Culture - Final
Blood/Venous Bacteroides distasonis
Gram Stain - Final
05/21/24 17:56 Blood Culture - Final
Blood/Venous No Growth - Final Report
Imaging:
06/04/2024 CT abdomen/pelvis with contrast: Heterogeneous collection in the left upper quadrant, superior to the spleen and upper stomach. The patient has a history of splenic laceration during splenic flexure takedown, and this most likely
represents a hematoma. Measurements without significant change from examination of May 27, 2024. Although this was not a CT angiography examination, there is no CT evidence to suggest significant active bleeding. There is fluid in the left
paracolic gutter and extending slightly medially in the left lower abdomen adjacent to small bowel loops. This fluid has slightly increased since examination May 27, 2024. There is a drainage catheter with its tip is in the inferior aspect of
this fluid collection. There is an unusual ovoid fat, fluid, and air density in the midline abdomen posterior to the abdominal wall. This is felt to likely represent necrotic omentum, and superimposed infection cannot be excluded. There is no
evidence of a drainable collection at this time. Moderate subcutaneous edema. This is slightly improved from examination of May 27, 2024.
05/27/2024 CT abdomen/pelvis with contrast: There is 7 x 8 x 3 cm intermediate density heterogeneous left subdiaphragmatic fluid collection containing a small amount of extraluminal gas. Differential diagnosis for this collection includes hematoma
and abscess. Sigmoidectomy with left lower quadrant colostomy. Moderate ascites including areas of loculated fluid in the abdomen and pelvis. Small left pleural effusion with compressive atelectasis at the posterior left lung base. Please see
full dictation for additional detail.
[2024-06-12 21:45] LABS: Glucose - Point of Care 165 mg/dl (70-99)
[2024-06-12] MEDS: TYLENOL 1000 MG PO (22:02)
[2024-06-13] VITALS (7 sets, daily range): BP systolic 137–190; BP diastolic 77–99; PULSE 81; O2SAT 89–90; BMI 35.5
--- NOTE | 2024-06-13 07:13 | PN.DE.MGMTRT ---
Insulin Management
- -
06/13/2024: Diabetes Management Follow up:
Patient admitted 05/19 with acute sigmoid diverticulitis with perforation. PMH endometrial CA, breast CA, HTN, HCL, steroid induced diabetes. Prior to admission was taking 19 units NovoLog AC with Mounjaro 2.[address] Cordova
and Omer Ndiaye PA-c at [facility]. Recently was started on Mounjaro and Jardiance and had frequent low blood sugars. She states she could not get an appointment with Omer so she called her primary doctor who told her to stop Lantus and
Jardiance due to hypoglycemia. A1C is 7.4, Cr 1.5, eGFR 39.65. Extubated 05/23, transitioned off of glycemic protocol 05/25.
Patient is awake and A/O x3. Able to discuss diabetes management.
POD# 22, s/p drain insertion 06/10, doing well. 06/12 premeal Glucose stable and in range of 110 to 156. Fasting today 133.
Will make no changes to current regimen: Continue NovoLog 4 units AC with moderate corrective, Farxiga 10 mg daily (at home taking Jardiance 10 mg daily) and Lantus 8 units in AM, with Mounjaro 5 mg weekly on Monday.
Pt states that Jardiance will not be provided to her while in rehab due to cost. She has requested script for Jardiance to be sent to pharmacy so her son can pick it up and have it ready to take to rehab.
Discussed with patient and nurse.
Diabetes History
- -
Type of Diabetes: 2 requiring insulin
Pre-Admission Diabetes Regimen
Lab Results
Hemoglobin A1c 7.4 % (4.0-5.6) H 05/20/24 05:23
Insulin Pump Settings
IP Diabetes Regimen
06/12/24 06/12/24 06/12/24
07:51 11:13 17:06
POC Glucose 110 H 146 H 156 H
06/12/24
21:43
POC Glucose 165 H
Meal type: Breakfast
Amount consumed: 25%
Patient Education
[2024-06-13 07:39] LABS: Glucose - Point of Care 133 mg/dl (70-99)
[2024-06-13] MEDS: NOVOLOG FLEXPEN-MODERATE RESISTANCE SC ×3 (08:03→17:51)
[2024-06-13] MEDS: PROCARDIA XL (EXTENDED RELEASE) 30 MG PO ×2 (08:12→19:56)
[2024-06-13] MEDS: LOPRESSOR 75 MG PO (08:15)
[2024-06-13] MEDS: COZAAR 50 MG PO ×2 (08:16→19:58)
[2024-06-13] MEDS: PROTONIX 40 MG PO (08:16)
[2024-06-13] MEDS: FARXIGA 10 MG PO (08:16)
[2024-06-13] MEDS: LOW STRENGTH ASPIRIN 81 MG PO (08:17)
[2024-06-13] MEDS: LANTUS 0.08 UNITS SC (08:17)
[2024-06-13] MEDS: NOVOLOG FLEXPEN 4 UNITS SC ×3 (08:18→17:52)
[2024-06-13] MEDS: DESENEX/MITRAZOL/ZEASORB 1 APPLIC TOPICAL ×2 (08:19→19:57)
--- NOTE | 2024-06-13 09:47 | W.PN.CRS1 ---
Today's Communication / Plan
-
IV abx
will discuss ?drain upsizing with radiology
Assessment/Plan
-
58-year-old female with PMH of recurrent diverticulitis (multiple episodes over the last 25 years), recent UTI on 04/29 seen in the [place] [facility], HTN, DM (on Mounjaro), breast cancer s/p resection and chemo, endometrial cancer s/p LETI/BSO,? Aortic
stent who presented with acute abdominal pain, CT concerning for perforated diverticulitis with flecks of free air around the abdomen; patient initially managed nonoperatively as there was no signs of peritonitis or hemodynamic instability; however,
patient did not improve and a repeat CT scan showed worsening pneumoperitoneum with persistent inflammation of the sigmoid colon
POD#21 Caridad's; postop was on pressors and intubated. Off pressors and extubated by POD2
05/27 CT (for bump in WBC) - LUQ collection c/f perisplenic hematoma, expected post-op changes
06/03 US chest with moderate pleural effusion
06/04 CT with staple perisplenic hematoma, no abscess, necrotic omentum noted
06/10- IR drain placement into midline collection
06/12- 2 units prbcs
Being followed on ABX by ID. Tmax 100.9 yesterday, Still mildly tachycardic from 100-104 (improving)
Tolerating diet, stoma productive of stool/flatus
- IR drain in place, will continue. Possible upsizing in the future per radiology. I will reach out to radiology this AM to discuss.
- Wound cultures pending.
- Continue diet
� Appreciate WOCN
- Appreciate PT� recommending rehab for discharge
� Appreciate hospitalist
- Antibiotics per ID
- Dispo planning
Subjective Data
Procedure
05/22/2024- 1) exploratory laparotomy 2) Caridad's resection (sigmoidectomy with rectopexy)
Subjective Data
Date of Service: June 13, 2024
Patient states she was 'achy' last night. She denies nausea or vomiting. She is tolerating a diet. She is frustrated she is dizzy when she is getting out of bed.
Objective Data
-
Vital Signs
Temp Pulse Resp BP Pulse Ox
99.0 F 104 16 179/99 97
06/13/24 07:30 06/13/24 08:16 06/13/24 07:30 06/13/24 08:16 06/13/24 07:30
Intake & Output
06/12/24 06/13/24 06/14/24
06:59 06:59 06:59
Intake Total 1440 / 1440 800 / 800
Output Total 960 / 960 1300 / 1300
Balance 480 / 480 -500 / -500
Intake:
Oral fluids 1440 / 1440 540 / 540
Amount instilled into Drain (
Total)
Right Abdomen Placed in IR 10 10
Blood Product Amount Infused ( 250 / 250
mL)
Packed Rbc Leukoreduced Unit 250 / 250
[id number]
Output:
Liquid stool amount 50 / 50
Colostomy 50 / 50
Drain Output (Total) 60 / 60 50 / 50
Right Abdomen Placed in IR 60 / 60 50 / 50
Urine, Voided 900 / 900 1200 / 1200
Other:
How many times incontinent 2
SATURATED amount urine
Lab Results
06/11/24 06:11
06/11/24 06:11
Physical Exam
-
General: No Acute Distress and AOx3
Abdomen: Soft, Non Distended, Non Tender and Other (incision with merari present, gaps closed, colostomy warm and pink with output. IR drain in place with pus and blood mixed)
Skin: Warm and Dry
--- NOTE | 2024-06-13 10:25 | WOUNDNOTE ---
WO RN note: Patient turning better. Sacral ulcer slightly improved with less yellow fibrin slough. Sacral ulcer dressing changed. Reinstructed patient colostomy appliance change using [place] wafer # [id number], Mario seal and [place] pouch # [id number].
Patient's stoma pink, flush and functioning for soft solid stool. Peristomal skin intact. Ostomy supplies in room. Patient encouraged to work with PT/OT today. Patient turned to R semi side lying position. Heels off bed with pillow. Next appliance
change due early next week.
[2024-06-13] MEDS: TYLENOL 650 MG PO ×3 (10:31→23:47)
--- NOTE | 2024-06-13 12:01 | W.PN.ID1 ---
Date of Service
Date of Service: June 13, 2024
Today's Communication
Continue antibiotics.
Assessment / Plan
Diverticulitis with diverticular perforation
- s/p diverting colostomy (05/22/2024).
- Intra-op splenic capsular tear with likely hematoma
Leukocytosis
- normalized
Anterior abdominal collection
- s/p drainage.
- Cultures with Klebsiella pneumoniae and ESBL E. coli
Hx Bacteroides bacteremia; cleared
Low-grade temperatures
HTN
DM
Hx breast CA
Hx endometrial CA
Diverticulitis
Recommendations:
WBC normalized.
S/P drainage of anterior abdominal collection.
Location of LUQ collection is not amenable to drainage per IR
Continue current antibiotics.
Patient for repeat CT scan of abdomen today.
����������������������������������������������������������
Chief Complaint
-: Other (Abdominal infection)
Subjective / Review of Systems
Review of Systems: No Fever and No Chills
Vital Signs / Physical Exam
Vital Signs
Vital Signs
Temp Pulse Resp BP Pulse Ox
99.0 F 104 16 179/99 97
06/13/24 07:30 06/13/24 08:16 06/13/24 07:30 06/13/24 08:16 06/13/24 07:30
Physical Exam
Constitutional: No Acute Distress, Comfortable and Non-toxic
Eyes: No Conjunctival Hemorrhage and Sclera Anicteric
Cardiovascular: Regular Rate and S1/S2; Negative S3/S4
Pulmonary: Clear; Negative Wheezes or Rales
Gastrointestinal: Soft, Non Distended and Other (JODIE in place with bloody purulent fluid.)
Extremities: Edema; Negative Cyanosis or Erythema
Neurological: Awake and Alert
Psychological: Calm
Objective Data
Lab Data
Lab Results
06/11/24 06:11
06/11/24 06:11
PT 16.1 Sec (11.4-14.6) H 05/22/24 19:57
INR 1.28 05/22/24 19:57
APTT 28.3 Sec (23.4-35.0) 05/22/24 19:57
Estimated Creat Clear 102 ml/min 06/11/24 06:11
Lactic Acid 1.2 mmol/L (0.7-2.0) 05/20/24 22:09
Total Bilirubin 0.7 mg/dl (0.2-1.3) 05/30/24 09:05
AST 24 U/L (14-36) 05/30/24 09:05
ALT 19 U/L (0-35) 05/30/24 09:05
Alkaline Phosphatase 78 U/L (38-126) 05/30/24 09:05
Most recent labs reviewed.
Micro Results:
06/09/24 10:30 Blood Culture - Preliminary
Blood/Venous No Growth in 4 days- Final report to follow
06/09/24 10:29 Blood Culture - Preliminary
Blood/Venous No Growth in 4 days- Final report to follow
06/10/24 12:54 Wound Culture - Final
Abdomen Escherichia coli - ESBL
Klebsiella pneumoniae
Gram Stain - Final
06/02/24 12:02 Blood Culture - Final
Blood/Venous No Growth - Final Report
06/02/24 09:36 Blood Culture - Final
Blood/Venous No Growth - Final Report
05/22/24 08:00 Wound Culture - Final
Abdomen Escherichia coli - ESBL
Gram Stain - Final
05/22/24 08:00 Anaerobic Culture - Final
Abdomen
05/19/24 20:48 Blood Culture - Final
Blood/Venous Bacteroides distasonis
Gram Stain - Final
05/21/24 17:56 Blood Culture - Final
Blood/Venous No Growth - Final Report
Imaging:
06/04/2024 CT abdomen/pelvis with contrast: Heterogeneous collection in the left upper quadrant, superior to the spleen and upper stomach. The patient has a history of splenic laceration during splenic flexure takedown, and this most likely
represents a hematoma. Measurements without significant change from examination of May 27, 2024. Although this was not a CT angiography examination, there is no CT evidence to suggest significant active bleeding. There is fluid in the left
paracolic gutter and extending slightly medially in the left lower abdomen adjacent to small bowel loops. This fluid has slightly increased since examination May 27, 2024. There is a drainage catheter with its tip is in the inferior aspect of
this fluid collection. There is an unusual ovoid fat, fluid, and air density in the midline abdomen posterior to the abdominal wall. This is felt to likely represent necrotic omentum, and superimposed infection cannot be excluded. There is no
evidence of a drainable collection at this time. Moderate subcutaneous edema. This is slightly improved from examination of May 27, 2024.
05/27/2024 CT abdomen/pelvis with contrast: There is 7 x 8 x 3 cm intermediate density heterogeneous left subdiaphragmatic fluid collection containing a small amount of extraluminal gas. Differential diagnosis for this collection includes hematoma
and abscess. Sigmoidectomy with left lower quadrant colostomy. Moderate ascites including areas of loculated fluid in the abdomen and pelvis. Small left pleural effusion with compressive atelectasis at the posterior left lung base. Please see
full dictation for additional detail.
Care Review
Plan reviewed with: Physician (Hospitalist; Resident)
[2024-06-13 13:43] LABS: Glucose - Point of Care 136 mg/dl (70-99)
[2024-06-13] MEDS: INVANZ 60 MG IV (13:47)
--- NOTE | 2024-06-13 14:22 | CM ---
Addendum entered by Jamia Angel RN 06/13/24 15:15:
Received call from [facility] with [facility] they are full until at earliest late next week.
Original Note:
Reviewed the chart notes and spoke with the patient at the bedside. Patient was oob to bedside chair today. Patient son was to tour facilities yesterday and report back. Patient's son working today. Call placed and message left with [facility] to inquire of bed availability. CM continues to be available to patient/family and is monitoring medical plan for needs at discharge.
Plan: Discharge to SNF/rehab once bed found and precert obtained.
--- NOTE | 2024-06-13 16:36 | W.PN.HOSP.TC ---
Today's Communication/Plan
-
follow CT scan of the abdomen to look the adequacy of collection drainage.CW abx.
Increase metoprolol
Assessment / Plan
Assessment / Plan
#Acute sigmoid diverticulitis with perforation
-CT scan in ED showing sigmoid diverticulitis with perforation
-Patient underwent elective exploratory laparotomy resection and Caridad procedure
-brown soft stool output and flatus on ostomy bag
-Patient tolerating 1800-calorie diabetic diet well
# Multifactorial shock -septic/hypovolemic
-Patient previously requiring postop vasopressor support
-Off pressors
# Bacteroids distasonis bacteremia
ESBL ecoli peritonitis
Perisplenic hematoma
-Intraoperative abdominal fluid culture growing ESBL E. coli
-Bacteroides isolated preoperatively on blood culture 1 set, repeat negative
- Normalized leukocytosis
-Abx have changed to Invanz by ID, Currently day 12
-Pt has mid line and will get abx through this line on discharge
#Intermittent fevers
#Pleural effusion
-Patient has been having variable intermittent fevers
-Repeat CT A/P/C yesterday demonstrated multiple abdominal abscesses as well as a moderate right sided pleural effusion
-Status post abdominal abscess drainage
-Culture and sensitivity With E. coli ESBL and Klebsiella pneumonia-continue with antibiotics per ID and continue with the drainage and relook at the cavity for adequacy of drainage. IR following.
# Acute blood loss anemia
-s/p 2 units PRBC this admission
-JODIE drain was removed by colorectal in anticipation for discharge
-monitor CBC
-Transfuse if hemoglobin drops below 7
- In view of her persistent tachycardia and severe anemia transfused 1 unit of blood. Follow H&H closely.
#Hypertension
Patient's blood pressure is elevated
Currently taking 3 blood pressure meds
Patient also tachycardic
Increase metoprolol to 100 mg twice daily
#Tachycardia-Sinus
Patient has been consistently tachycardic since admission, running in the high 90s to low 120s
Patient asymptomatic
TSH normal.
Doubt PE as patient is on Lovenox DVT prophylaxis on a regular basis. Continue to follow tachycardia posttransfusion. Will continue to increase metoprolol for tachycardia as well as blood pressure management.
#TIFFANI
AGAP metabolic acidosis
Hyponatremia
-Renal function has normalized
-Hyponatremia has resolved
# Acute transaminitis
- improved
# IDDM
-Hemoglobin A1c of 7.4
-Patient requiring insulin gtt. support in ICU
-Maintain on and NovoLog with sliding scale
-Diabetic nurse practitioner managing
-Patient's diabetic meds were refilled to pharmacy in anticipation of discharge to SNF
# Coarctation of the Aorta
-Systolic murmur heard on exam
- s/p prior aortic stenting.
- Continue ASA
-Monitor blood pressure
#. Iatrogenic volume overload
-Patient came in 99 kg, up to 107 kg
-Down to 99 kg
-Status post diuresis with IV and oral Lasix
-Will continue to reassess volume status and need for diuresis with weights and clinical exam
DVT Prophylaxis: Heparin subq
Code Status: Full
Diet: Diabetic
Anticipated Discharge: > 48 hours
Subjective/Interval History
-
Date of Service: June 13, 2024
feels better sitting in the chair today.
Tolerating diet. Denies any fever or chills.
Objective Data
-
Vital Signs:
Vital Signs
Temp Pulse Resp BP Pulse Ox
99.6 F 108 16 178/82 96
06/13/24 15:13 06/13/24 15:13 06/13/24 15:13 06/13/24 15:13 06/13/24 15:13
I&O
06/12/24 06/13/24 06/14/24
06:59 06:59 06:59
Intake Total 1440 / 1440 800 / 800
Output Total 960 / 960 1300 / 1300
Balance 480 / 480 -500 / -500
Review of Systems
-
EENT: Denies Sore Throat
Respiratory: Denies Trouble Breathing (AT REST)
Genitourinary: Denies Dysuria
Neuro: Denies Dizzy
Physical Exam
-
General: No Apparent Distress
HEENT: Moist Mucous Membranes
Respiratory: Decreased Breath Sounds (At left base)
Cardiac: Regular Rhythm and S1/S2
GI: Soft, Nontender, Nondistended, Normal Bowel Sounds, Ostomy and Other (JODIE drain)
Neuro: AO x 3
Data Reviewed
-
Labs: Labs Reviewed by me
[2024-06-13 17:46] LABS: Glucose - Point of Care 129 mg/dl (70-99)
[2024-06-13] MEDS: LOVENOX 40 MG SC (17:51)
[2024-06-13] MEDS: LOPRESSOR 100 MG PO (19:57)
[2024-06-13] MEDS: APRESOLINE 10 MG IV (22:09)
[2024-06-14] VITALS (10 sets, daily range): BP systolic 100–207; BP diastolic 68–113; BMI 34.8
--- NOTE | 2024-06-14 | PTCARENOTE ---
Pt's BP at 19:55 was 190/88. Evening PO cardiac meds given (50mg cozaar, 100mg lopressor, 30mg procardia XL). Reassessed BP at 22:08 and it was 187/94. PRN 10mg IV hydralazine given at 22:08. Reassessed BP at 23:25 and it was 160/86.
[2024-06-14 07:28] LABS: Glucose - Point of Care 114 mg/dl (70-99)
--- NOTE | 2024-06-14 07:33 | PN.DE.MGMTRT ---
Insulin Management
- -
06/14/2024: Diabetes Management F/U:
Patient admitted 05/19 with acute sigmoid diverticulitis with perforation. PMH endometrial CA, breast CA, HTN, HCL, steroid induced diabetes. Prior to admission was taking 19 units NovoLog AC with Mounjaro 2.[address] weekly[address] End[address] Cordova
and Omer Ndiaye PA-c at [facility]. Recently was started on Mounjaro and Jardiance and had frequent low blood sugars. She states she could not get an appointment with Omer so she called her primary doctor who told her to stop Lantus and
Jardiance due to hypoglycemia. A1C is 7.4, Cr 1.5, eGFR 39.65. Extubated 05/23, transitioned off of glycemic protocol 05/25.
Patient is awake and A/O x3. Able to discuss diabetes management.
POD# 24, s/p drain insertion 06/10, doing well.
06/13 premeal Glucose stable and in range of 129 to 136, Fasting today 114.
Will make no changes to current regimen: Continue NovoLog 4 units AC with moderate corrective, Farxiga 10 mg daily (at home taking Jardiance 10 mg daily) and Lantus 8 units in AM, with Mounjaro 5 mg weekly on Monday.
Pt states that Jardiance will not be provided to her while in rehab due to cost. She has requested script for Jardiance to be sent to pharmacy so her son can pick it up and have it ready to take to rehab.
Discussed with patient and nurse.
Diabetes History
- -
Type of Diabetes: 2 requiring insulin
Pre-Admission Diabetes Regimen
Lab Results
Hemoglobin A1c 7.4 % (4.0-5.6) H 05/20/24 05:23
Insulin Pump Settings
IP Diabetes Regimen
06/13/24 06/13/24 06/13/24
07:38 13:42 17:45
POC Glucose 133 H 136 H 129 H
06/14/24
07:27
POC Glucose 114 H
Meal type: Lunch
Meal type: Breakfast
Amount consumed: 100%
Amount consumed: 100%
Patient Education
[2024-06-14] MEDS: NOVOLOG FLEXPEN-MODERATE RESISTANCE SC ×2 (08:14→17:06)
[2024-06-14 08:25] LABS: Hematocrit 28.4 % (37.0-47.0); Hemoglobin 9.2 g/dL (12.0-16.0); Mean Corp Hgb Conc. 32.4 g/dL (33.0-37.0); Mean Corpuscular Hgb 27.8 pg (27.0-31.0); Mean Corpuscular Volume 85.8 fL (81.0-99.0); Mean Platelet Volume 10.6 fL (7.4-10.4); Platelet Count 446 10^3/uL (130-400); Red Blood Cell Count 3.31 10^6/uL (4.20-5.40); Red Cell Dist. Width 15.4 % (11.5-14.5); White Blood Cell Count 9.4 10^3/uL (4.8-10.8)
[2024-06-14] MEDS: LANTUS 0.08 UNITS SC (08:30)
[2024-06-14] MEDS: NOVOLOG FLEXPEN 4 UNITS SC ×2 (08:30→12:41)
[2024-06-14] MEDS: LOPRESSOR 100 MG PO ×2 (08:31→19:48)
[2024-06-14] MEDS: LOW STRENGTH ASPIRIN 81 MG PO (08:31)
[2024-06-14] MEDS: FARXIGA 10 MG PO (08:31)
[2024-06-14] MEDS: PROCARDIA XL (EXTENDED RELEASE) 30 MG PO ×2 (08:31→19:47)
[2024-06-14] MEDS: PROTONIX 40 MG PO (08:31)
[2024-06-14] MEDS: COZAAR 50 MG PO ×2 (08:31→19:48)
[2024-06-14] MEDS: DESENEX/MITRAZOL/ZEASORB 1 APPLIC TOPICAL ×2 (08:32→19:49)
--- NOTE | 2024-06-14 08:55 | W.PN.CRS1 ---
Today's Communication / Plan
-
IR for splenic collection
Assessment/Plan
-
58-year-old female with PMH of recurrent diverticulitis (multiple episodes over the last 25 years), recent UTI on 04/29 seen in the [place] [facility], HTN, DM (on Mounjaro), breast cancer s/p resection and chemo, endometrial cancer s/p LETI/BSO,? Aortic
stent who presented with acute abdominal pain, CT concerning for perforated diverticulitis with flecks of free air around the abdomen; patient initially managed nonoperatively as there was no signs of peritonitis or hemodynamic instability; however,
patient did not improve and a repeat CT scan showed worsening pneumoperitoneum with persistent inflammation of the sigmoid colon
POD#22 Caridad's; postop was on pressors and intubated. Off pressors and extubated by POD2
05/27 CT (for bump in WBC) - LUQ collection c/f perisplenic hematoma, expected post-op changes
06/03 US chest with moderate pleural effusion
06/04 CT with staple perisplenic hematoma, no abscess, necrotic omentum noted
06/10- IR drain placement into midline collection
06/12- 2 units prbcs
Being followed on ABX by ID. Tmax 100.9 yesterday, Still mildly tachycardic from 100-104 (improving)
Tolerating diet, stoma productive of stool/flatus
- IR drain in place, will continue. IR to aspirate/place drain in the splenic collection today.
- Wound cultures pending.
- Continue diet
� Appreciate WOCN
- Appreciate PT� recommending rehab for discharge
� Appreciate hospitalist
- Antibiotics per ID
- Dispo planning post IR drain.
Subjective Data
Procedure
05/22/2024- 1) exploratory laparotomy 2) Caridad's resection (sigmoidectomy with rectopexy)
Subjective Data
Date of Service: June 14, 2024
Patient states she is doing well. She has no nausea or vomiting. She is tolerating a diet. She has no complaints.
Objective Data
-
Vital Signs
Temp Pulse Resp BP Pulse Ox
99.8 F 105 18 179/94 95
06/14/24 07:40 06/14/24 07:40 06/14/24 07:40 06/14/24 07:40 06/14/24 07:40
Intake & Output
06/13/24 06/14/24 06/15/24
06:59 06:59 06:59
Intake Total 800 / 800 1090 / 1090
Output Total 1300 / 1300 850 / 850
Balance -500 / -500 240 / 240
Intake:
Oral fluids 540 / 540 1080 / 1080
IV fluids (Total) 0 / 0
IV piggybacks 0 / 0
Amount instilled into Drain (
Total)
Right Abdomen Placed in IR
Blood Product Amount Infused ( 250 / 250
mL)
Packed Rbc Leukoreduced Unit 250 / 250
[id number]
Output:
Liquid stool amount 50 / 50
Colostomy 50 / 50
Drain Output (Total) 50 / 50 50 / 50
Right Abdomen Placed in IR 50 / 50 50 / 50
Urine, Voided 1200 / 1200 800 / 800
Other:
Number of approximated SMALL 1
amounts of urine
Number of approximated MODERATE 2
amounts of urine
How many times incontinent 1
SMALL amount urine
How many times incontinent 1
MODERATE amount urine
Lab Results
06/14/24 08:08
Physical Exam
-
General: No Acute Distress and AOx3
Abdomen: Soft, Non Distended, Non Tender and Other (colostomy warm and pink with output, IR drain with pus)
Skin: Warm and Dry
Incision: Clear, Dry, Intact
--- NOTE | 2024-06-14 08:57 | W.PN.HOSP.TC ---
Addendum entered and electronically signed by Vijay Murphy MD 06/14/24 15:10:
Seen and examined by me independently in collaboration with the medical office receptionist.
Lab data and imaging data reviewed.
Addendum as below :
Tolerating diet. Denies abdominal pain. Central abdominal drain output 50 mL. IR /colo rectal surgery input noted. Continued on ertapenem based on the microbiology isolates. Once cleared by IR and colorectal surgery will start discharge plan.
Blood pressure improved today after increasing beta-berto yesterday. Continue with current tx.
Original Note:
Today's Communication/Plan
-
Case management for SNF placement
Reassessment of drain placement
PICC line placement
Assessment / Plan
Assessment / Plan
#Acute sigmoid diverticulitis with perforation
-CT scan in ED showing sigmoid diverticulitis with perforation
-Patient underwent elective exploratory laparotomy resection and Caridad procedure
-brown soft stool output and flatus on ostomy bag
-Patient tolerating 1800-calorie diabetic diet well
# Multifactorial shock -septic/hypovolemic
-Patient previously requiring postop vasopressor support
-Off pressors
# Bacteroids distasonis bacteremia
ESBL ecoli peritonitis
Perisplenic hematoma
-Intraoperative abdominal fluid culture growing ESBL E. coli
-Bacteroides isolated preoperatively on blood culture 1 set, repeat negative
- Normalized leukocytosis
-Abx have changed to Invanz by ID, Currently day 13/14
-Pt has mid line currently
-Mid line to be changed to picc line and will get 2 to 3 weeks of broad-spectrum antibiotics through this line on discharge
#Intermittent fevers
#Pleural effusion
-Patient has been having variable intermittent fevers
-Repeat CT A/P/C yesterday demonstrated multiple abdominal abscesses as well as a moderate right sided pleural effusion
-Status post abdominal abscess drainage
-Repeat CT demonstrated improvement in fluid, still small 5.2 cm left
-Patient for reassessment of drain placement
-Culture and sensitivity With E. coli ESBL and Klebsiella pneumonia-continue with antibiotics per ID and continue with the drainage
# Acute blood loss anemia
-s/p 2 units PRBC this admission
-JODIE drain was removed by colorectal in anticipation for discharge
-monitor CBC
-Transfuse if hemoglobin drops below 7
- In view of her persistent tachycardia and severe anemia transfused 1 unit of blood.
-Patient reports improvement in fatigue and shortness of breath after transfusion
#Hypertension
PMH coartation of aorta with stent
Currently taking 3 blood pressure meds
No blood pressure discrepancy in brachial pressures on check
Increase metoprolol to 100 mg twice daily
Requested old echo and CTA from PT's dynamicist
#Tachycardia-Sinus
Patient has been consistently tachycardic since admission, running in the high 90s to low 120s
Patient asymptomatic
TSH normal.
Doubt PE as patient is on Lovenox DVT prophylaxis on a regular basis. Continue to follow tachycardia posttransfusion. Will continue to increase metoprolol for tachycardia as well as blood pressure management.
#TIFFANI
AGAP metabolic acidosis
Hyponatremia
-Renal function has normalized
-Hyponatremia has resolved
# Acute transaminitis
- Resolved
Restarted home rosuvastatin
Check CMP
# IDDM
-Hemoglobin A1c of 7.4
-Patient requiring insulin gtt. support in ICU
-Maintain on and NovoLog with sliding scale
-Diabetic nurse practitioner managing
-Patient's diabetic meds were refilled to pharmacy in anticipation of discharge to SNF
# Coarctation of the Aorta
-Systolic murmur heard on exam
- s/p prior aortic stenting.
- Continue ASA
-Monitor blood pressure
#. Iatrogenic volume overload
-Patient came in 99 kg, up to 107 kg
-Down to 99 kg
-Status post diuresis with IV and oral Lasix
-Will continue to reassess volume status and need for diuresis with weights and clinical exam
#hypercholesterolemia
No LFT abnormality on labs
Restarted pt home rosuvastatin dose
recheck CMP after starting
DVT Prophylaxis: Heparin subq
Code Status: Full
Diet: Diabetic
Anticipated Discharge: Within 24 hours
Subjective/Interval History
-
Date of Service: June 14, 2024
Still currently working on SNF placement
Patient reports feeling more energy and having easier time with PT after blood transfusion
Objective Data
-
Labs:
Laboratory Results
06/14/24
08:08
WBC 9.4
Hgb 9.2 L
Hct 28.4 L
Plt Count 446 H
Sodium Pending
Potassium Pending
Chloride Pending
Carbon Dioxide Pending
BUN Pending
Creatinine Pending
Glucose Pending
Calcium Pending
Total Bilirubin Pending
AST Pending
ALT Pending
Alkaline Phosphatase Pending
Vital Signs:
Vital Signs
Temp Pulse Resp BP Pulse Ox
99.8 F 105 18 179/94 95
06/14/24 07:40 06/14/24 07:40 06/14/24 07:40 06/14/24 07:40 06/14/24 07:40
I&O
06/13/24 06/14/24 06/15/24
06:59 06:59 06:59
Intake Total 800 / 800 1090 / 1090
Output Total 1300 / 1300 850 / 850
Balance -500 / -500 240 / 240
Review of Systems
-
History Source: Patient
Constitutional: Reports No Symptoms
Respiratory: Reports No Symptoms
Cardiac: Reports No Symptoms
Abdomen/GI: Reports Abdominal Pain; Denies Nausea
Physical Exam
-
General: Well Developed, Well Nourished, No Apparent Distress, Comfortable, Conversant and Morbidly Obese
Respiratory: Clear to Auscultation
Cardiac: Regular Rhythm, S1/S2 and Murmur
GI: Soft, Nondistended, Normal Bowel Sounds, Tender and Ostomy
Skin: Warm
Neuro: Awake, Alert, Oriented and AO x 3
Psych: Calm and Intact Judgement/Insight
Data Reviewed
-
Labs: Labs Reviewed by me and Discussed with Physician
[2024-06-14 09:04] LABS: ALT (SGPT) 21 U/L (0-35); AST (SGOT) 38 U/L (14-36); Albumin 2.7 g/dl (3.5-5.0); Alkaline Phosphatase 85 U/L (38-126); Blood Urea Nitrogen 11 mg/dl (7-17); Calcium 8.3 mg/dl (8.4-10.2); Carbon Dioxide 27 mmol/L (22-30); Chloride 101 mmol/L (98-107); Estimated Creatinine Clearance 101 ml/min; Glucose 118 mg/dl (70-99); Potassium 3.9 mmol/L (3.5-5.1); Sodium 139 mmol/L (135-145); Total Bilirubin 0.4 mg/dl (0.2-1.3); Total Protein 5.9 g/dl (6.3-8.2); eGFR > 60.00
[2024-06-14 11:27] LABS: Glucose - Point of Care 158 mg/dl (70-99)
[2024-06-14] MEDS: TYLENOL 650 MG PO (11:34)
[2024-06-14] MEDS: NOVOLOG FLEXPEN-MODERATE RESISTANCE 1 UNITS SC (12:41)
[2024-06-14] MEDS: INVANZ 60 MG IV (12:42)
--- NOTE | 2024-06-14 15:19 | W.PN.ID1 ---
Date of Service
Date of Service: June 14, 2024
Today's Communication
Continue antibiotics
Assessment / Plan
Diverticulitis with diverticular perforation
- s/p diverting colostomy (05/22/2024).
- Intra-op splenic capsular tear with likely hematoma
Leukocytosis
- normalized
Anterior abdominal collection
- s/p drainage.
- Cultures with Klebsiella pneumoniae and ESBL E. coli
Hx Bacteroides bacteremia; cleared
Low-grade temperatures
HTN
DM
Hx breast CA
Hx endometrial CA
Diverticulitis
Recommendations:
WBC normalized.
S/P drainage of anterior abdominal collection.
Location of LUQ collection is not amenable to drainage per IR
Continue current antibiotics.
����������������������������������������������������������
Chief Complaint
-: Other (Abdominal infection)
Subjective / Review of Systems
Review of Systems: No Fever, No Chills and No Abdominal Pain
Vital Signs / Physical Exam
Vital Signs
Vital Signs
Temp Pulse Resp BP Pulse Ox
99.8 F 105 18 132/70 95
06/14/24 07:40 06/14/24 07:40 06/14/24 07:40 06/14/24 11:15 06/14/24 07:40
Physical Exam
Constitutional: No Acute Distress, Comfortable and Non-toxic
Eyes: Sclera Anicteric
Cardiovascular: Regular Rate and S1/S2; Negative S3/S4
Pulmonary: Clear; Negative Wheezes or Rales
Gastrointestinal: Soft, Non Distended and Other (JODIE in place with bloody purulent fluid. Ostomy in place.)
Extremities: Edema; Negative Cyanosis or Erythema
Neurological: Awake and Alert
Psychological: Calm
Objective Data
Lab Data
Lab Results
06/14/24 08:08
06/14/24 08:08
PT 16.1 Sec (11.4-14.6) H 05/22/24 19:57
INR 1.28 05/22/24 19:57
APTT 28.3 Sec (23.4-35.0) 05/22/24 19:57
Estimated Creat Clear 101 ml/min 06/14/24 08:08
Lactic Acid 1.2 mmol/L (0.7-2.0) 05/20/24 22:09
Total Bilirubin 0.4 mg/dl (0.2-1.3) 06/14/24 08:08
AST 38 U/L (14-36) H 06/14/24 08:08
ALT 21 U/L (0-35) 06/14/24 08:08
Alkaline Phosphatase 85 U/L (38-126) 06/14/24 08:08
Most recent labs reviewed.
Micro Results:
06/09/24 10:30 Blood Culture - Final
Blood/Venous No Growth - Final Report
06/09/24 10:29 Blood Culture - Final
Blood/Venous No Growth - Final Report
06/10/24 12:54 Wound Culture - Final
Abdomen Escherichia coli - ESBL
Klebsiella pneumoniae
Gram Stain - Final
06/02/24 12:02 Blood Culture - Final
Blood/Venous No Growth - Final Report
06/02/24 09:36 Blood Culture - Final
Blood/Venous No Growth - Final Report
05/22/24 08:00 Wound Culture - Final
Abdomen Escherichia coli - ESBL
Gram Stain - Final
05/22/24 08:00 Anaerobic Culture - Final
Abdomen
05/19/24 20:48 Blood Culture - Final
Blood/Venous Bacteroides distasonis
Gram Stain - Final
05/21/24 17:56 Blood Culture - Final
Blood/Venous No Growth - Final Report
Imaging:
06/04/2024 CT abdomen/pelvis with contrast: Heterogeneous collection in the left upper quadrant, superior to the spleen and upper stomach. The patient has a history of splenic laceration during splenic flexure takedown, and this most likely
represents a hematoma. Measurements without significant change from examination of May 27, 2024. Although this was not a CT angiography examination, there is no CT evidence to suggest significant active bleeding. There is fluid in the left
paracolic gutter and extending slightly medially in the left lower abdomen adjacent to small bowel loops. This fluid has slightly increased since examination May 27, 2024. There is a drainage catheter with its tip is in the inferior aspect of
this fluid collection. There is an unusual ovoid fat, fluid, and air density in the midline abdomen posterior to the abdominal wall. This is felt to likely represent necrotic omentum, and superimposed infection cannot be excluded. There is no
evidence of a drainable collection at this time. Moderate subcutaneous edema. This is slightly improved from examination of May 27, 2024.
05/27/2024 CT abdomen/pelvis with contrast: There is 7 x 8 x 3 cm intermediate density heterogeneous left subdiaphragmatic fluid collection containing a small amount of extraluminal gas. Differential diagnosis for this collection includes hematoma
and abscess. Sigmoidectomy with left lower quadrant colostomy. Moderate ascites including areas of loculated fluid in the abdomen and pelvis. Small left pleural effusion with compressive atelectasis at the posterior left lung base. Please see
full dictation for additional detail.
Care Review
Plan reviewed with: Physician (Hospitalist)
--- NOTE | 2024-06-14 15:44 | CM ---
Reviewed the chart notes and spoke with the patient at the bedside. The patient's son tour facilities and they have selected [facility]. CM spoke with Homer ([phone]) Neurology Physician at [facility], room is available on Monday. Precert
required. CM continues to be available to patient/family and is monitoring medical plan for needs at discharge.
[facility] NPI # [id number]
Dr. Church NPI# [id number]
Plan: Discharge to [facility] on Monday.
[2024-06-14 17:04] LABS: Glucose - Point of Care 83 mg/dl (70-99)
--- NOTE | 2024-06-14 18:21 | W.PN.IRAD.PR ---
Procedure Note
-
10 Fr drain placed in left subdiaphragmatic collection under CT guidance. Return of 80 cc dark old blood, not grossly purulent. Sample sent for micro. No immediate complications.
[2024-06-14] MEDS: LOVENOX SC (18:48)
[2024-06-14] MEDS: NOVOLOG FLEXPEN SC (18:48)
[2024-06-14] MEDS: CRESTOR PO (18:48)
--- NOTE | 2024-06-14 19:16 | VATNOTE ---
attempted earlier to exchange midline for picc however PCN, stated pt was going to IR for drain placement. Attempted now for exchange to picc and pt screaming out in pain left side post procedure. Pt will not let VAT place PICC at this time.
Oncoming PCNVitor aware that pt. requesting pain medication. Will be on standby when pt's pain more under control for picc exchange. VAT to follow .
[2024-06-14] MEDS: ULTRAM 50 MG PO (19:46)
[2024-06-14] MEDS: ATIVAN 0.5 MG IV (19:58)
[2024-06-14] MEDS: FLUSH (NSS) 2 FLUSH IV ×2 (20:02→22:07)
[2024-06-14 21:29] LABS: Glucose - Point of Care 101 mg/dl (70-99)
--- NOTE | 2024-06-14 22:00 | PTCARENOTE ---
Patient has been complaining of pain at the new site of the JODIE drain on her left side. Bloody drainage was inside the JODIE drain. Covering provider came to the bedside and assessed her. She was treated with one time pain medications two different
times for this pain. She also had a PICC line placed in her left upper arm. A chest Xray was completed to assess her chest/PICC lline. Covering provider reviewed the findings of the chest Xray.
[2024-06-14] MEDS: DILAUDID 0.25 MG IV (22:06)
[2024-06-15] MEDS: TYLENOL 650 MG PO ×2 (01:03→16:00)
[2024-06-15 03:10] VITALS: BP 139/80
[2024-06-15] MEDS: ATIVAN 0.5 MG IV ×2 (03:35→16:15)
[2024-06-15] MEDS: NSS (PRESERVATIVE FREE) 0.25 ML IV (03:36)
[2024-06-15] MEDS: FLUSH (NSS) 2 FLUSH IV (03:37)
[2024-06-15 06:40] VITALS: BMI 34.2
[2024-06-15 07:20] LABS: Glucose - Point of Care 101 mg/dl (70-99)
[2024-06-15 07:35] VITALS: BP 164/110
[2024-06-15 07:52] LABS: Hematocrit 26.5 % (37.0-47.0); Hemoglobin 8.5 g/dL (12.0-16.0); Mean Corp Hgb Conc. 32.1 g/dL (33.0-37.0); Mean Corpuscular Hgb 27.7 pg (27.0-31.0); Mean Corpuscular Volume 86.3 fL (81.0-99.0); Mean Platelet Volume 10.5 fL (7.4-10.4); Platelet Count 435 10^3/uL (130-400); Red Blood Cell Count 3.07 10^6/uL (4.20-5.40); Red Cell Dist. Width 15.8 % (11.5-14.5); White Blood Cell Count 11.9 10^3/uL (4.8-10.8)
[2024-06-15 08:25] LABS: ALT (SGPT) 21 U/L (0-35); AST (SGOT) 35 U/L (14-36); Albumin 2.6 g/dl (3.5-5.0); Alkaline Phosphatase 74 U/L (38-126); Blood Urea Nitrogen 11 mg/dl (7-17); Calcium 8.2 mg/dl (8.4-10.2); Carbon Dioxide 30 mmol/L (22-30); Chloride 99 mmol/L (98-107); Estimated Creatinine Clearance 117 ml/min; Glucose 105 mg/dl (70-99); Potassium 4.1 mmol/L (3.5-5.1); Sodium 138 mmol/L (135-145); Total Bilirubin 0.5 mg/dl (0.2-1.3); Total Protein 5.6 g/dl (6.3-8.2); eGFR > 60.00
[2024-06-15] MEDS: DILAUDID 0.5 MG IV ×2 (09:25→16:14)
[2024-06-15] MEDS: PROCARDIA XL (EXTENDED RELEASE) 30 MG PO ×2 (09:26→19:28)
[2024-06-15] MEDS: FARXIGA 10 MG PO (09:26)
[2024-06-15] MEDS: LOW STRENGTH ASPIRIN 81 MG PO (09:27)
[2024-06-15] MEDS: LOPRESSOR 100 MG PO ×2 (09:27→19:29)
[2024-06-15] MEDS: PROTONIX 40 MG PO (09:27)
[2024-06-15] MEDS: COZAAR 50 MG PO ×2 (09:27→19:29)
[2024-06-15] MEDS: LANTUS 0.08 UNITS SC (09:28)
[2024-06-15] MEDS: DESENEX/MITRAZOL/ZEASORB 1 APPLIC TOPICAL ×2 (09:28→19:22)
--- NOTE | 2024-06-15 09:28 | W.PN.HOSP.TC ---
Addendum entered and electronically signed by Vijay Murphy MD 06/15/24 15:26:
Seen and examined by me independently in collaboration with the quality engineer medical device.
Lab data and imaging data reviewed.
Addendum as below :
Patient had a left subdiaphragmatic collection drain placed yesterday. Cx already growing gram-negative bacilli. She had ESBL E. coli in the anterior abdominal wall collection this week.
Since yesterday she says she has a spasm of left-sided chest pain and some shoulder pain in the left side. She was feeling bit short of breath. She is requiring 2 L of oxygen. She has decreased breath sound in the left base.
Her chest x-ray shows a very large pleural effusion which is significantly increased in size compared to recent. She is febrile.
With subdiaphragmatic collection and bacterial growth I spoke with interventional radiologist Dr. Ramirez this morning for a diagnostic and therapeutic left thoracentesis- he will perform it today.
CW Ertapenem.
Total time spent on today's encounter was 52 minutes which included time spent in counseling the patient/family regarding diagnosis and treatment plan as listed above, goals of care, and symptom management. Case was discussed with nursing staff.
All labs and imaging personally reviewed by me. Remainder the time spent in detailed review of previous records, lab data, imaging, and other medical provider documentation.
Original Note:
Today's Communication/Plan
-
Continue monitor IR drain
Thoracentesis
Case management to discharge patient to SNF when bed is available on 06/18/2024
Assessment / Plan
Assessment / Plan
#Acute sigmoid diverticulitis with perforation
-CT scan in ED showing sigmoid diverticulitis with perforation
-Patient underwent elective exploratory laparotomy resection and Caridad procedure
-brown soft stool output and flatus on ostomy bag
-Patient tolerating 1800-calorie diabetic diet well
# Multifactorial shock -septic/hypovolemic
-Patient previously requiring postop vasopressor support
-Off pressors
# Bacteroids distasonis bacteremia
ESBL ecoli peritonitis
Perisplenic hematoma
-Intraoperative abdominal fluid culture growing ESBL E. coli
-Bacteroides isolated preoperatively on blood culture 1 set, repeat negative
- Normalized leukocytosis
-Abx have changed to Invanz by ID, Currently day
-Overnight midline was changed to PICC line, patient will use PICC line to receive IV antibiotics on discharge
#Intermittent fevers
#Pleural effusion
-Patient has been having variable intermittent fevers
-Etiology unknown, could be secondary to splenic hematoma or possibly from left-sided pleural effusion
-Status post abdominal abscess drainage
-Repeat CT demonstrated improvement in fluid, still small 5.2 cm left
-Patient taken to IR yesterday and had new drain placed, increased in size was 8.5 now is 10
-Drain put out 80 mL of old dark blood, nonpurulent
-Culture and sensitivity With E. coli ESBL and Klebsiella pneumonia-continue with antibiotics per ID and continue with the drainage
#Pleural effusion
-Patient has had an increasing in size pleural lesion on the left
-We were monitoring it previously however it has increased in size that is large enough for thoracentesis
-Interventional radiology consulted
-Thoracentesis ordered, labs placed
-Pain meds ordered as needed
# Acute blood loss anemia
-s/p 3 units PRBC this admission
-JODIE drain was removed by colorectal in anticipation for discharge
-monitor CBC
-Transfuse if hemoglobin drops below 7
- In view of her persistent tachycardia and severe anemia transfused 1 unit of blood.
-Patient reports improvement in fatigue and shortness of breath after transfusion
#Hypertension
PMH coartation of aorta with stent
Currently taking 3 blood pressure meds
No blood pressure discrepancy in brachial pressures on check
Increase metoprolol to 100 mg twice daily
Requested old echo and CTA from PT's cotton tier
#Tachycardia-Sinus
Patient has been consistently tachycardic since admission, running in the high 90s to low 120s
Patient asymptomatic
TSH normal.
Doubt PE as patient is on Lovenox DVT prophylaxis on a regular basis. Continue to follow tachycardia posttransfusion. Will continue to increase metoprolol for tachycardia as well as blood pressure management.
#TIFFANI
AGAP metabolic acidosis
Hyponatremia
-Renal function has normalized
-Hyponatremia has resolved
# Acute transaminitis
- Resolved
Restarted home rosuvastatin
Check CMP
# IDDM
-Hemoglobin A1c of 7.4
-Patient requiring insulin gtt. support in ICU
-Maintain on and NovoLog with sliding scale
-Diabetic nurse practitioner managing
-Patient's diabetic meds were refilled to pharmacy in anticipation of discharge to SNF
# Coarctation of the Aorta
-Systolic murmur heard on exam
- s/p prior aortic stenting.
- Continue ASA
-Monitor blood pressure
#. Iatrogenic volume overload
-Patient came in 99 kg, up to 107 kg
-Down to 96 kg
-Status post diuresis with IV and oral Lasix
-Will continue to reassess volume status and need for diuresis with weights and clinical exam
#hypercholesterolemia
No LFT abnormality on labs
Restarted pt home rosuvastatin dose
recheck CMP after starting
DVT Prophylaxis: Heparin subq
Code Status: Full
Diet: Diabetic
Anticipated Discharge: > 48 hours
Subjective/Interval History
-
Date of Service: June 15, 2024
Patient received PICC line and x-ray overnight
Patient tired this morning due to a busy night
Objective Data
-
Labs:
Laboratory Results
06/15/24
07:40
WBC 11.9 H
Hgb 8.5 L
Hct 26.5 L
Plt Count 435 H
Sodium 138
Potassium 4.1
Chloride 99
Carbon Dioxide 30
BUN 11
Creatinine 0.6
Glucose 105 H
Calcium 8.2 L
Total Bilirubin 0.5
AST 35
ALT 21
Alkaline Phosphatase 74
Vital Signs:
Vital Signs
Temp Pulse Resp BP Pulse Ox
100.4 F H 104 16 164/110 92
06/15/24 07:35 06/15/24 07:35 06/15/24 07:35 06/15/24 07:35 06/15/24 07:35
I&O
06/14/24 06/15/24 06/16/24
06:59 06:59 06:59
Intake Total 1090 / 1090 1230 / 1230
Output Total 850 / 850 355 / 355
Balance 240 / 240 875 / 875
Review of Systems
-
History Source: Patient
Constitutional: Reports No Symptoms
Respiratory: Reports No Symptoms
Cardiac: Reports No Symptoms
Abdomen/GI: Reports Abdominal Pain; Denies Nausea
Physical Exam
-
General: Well Developed, Well Nourished, No Apparent Distress, Comfortable, Conversant and Morbidly Obese
Respiratory: Clear to Auscultation
Cardiac: Regular Rhythm, S1/S2 and Murmur
GI: Soft, Nondistended, Normal Bowel Sounds and Tender
Skin: Warm and Dry
Neuro: Awake, Alert, Oriented and AO x 3
Psych: Calm and Intact Judgement/Insight
Data Reviewed
-
Diagnostic Radiology: Report Reviewed by me and Discussed with Physician
Labs: Labs Reviewed by me and Discussed with Physician
[2024-06-15] MEDS: NOVOLOG FLEXPEN 4 UNITS SC ×3 (09:29→17:49)
[2024-06-15] MEDS: NOVOLOG FLEXPEN-MODERATE RESISTANCE SC ×2 (09:29→17:45)
--- NOTE | 2024-06-15 09:31 | W.PN.CRS1 ---
Today's Communication / Plan
-
Pain control
Assessment/Plan
-
58-year-old female with PMH of recurrent diverticulitis (multiple episodes over the last 25 years), recent UTI on 04/29 seen in the [place] ED, HTN, DM (on Mounjaro), breast cancer s/p resection and chemo, endometrial cancer s/p LETI/BSO,? Aortic
stent who presented with acute abdominal pain, CT concerning for perforated diverticulitis with flecks of free air around the abdomen; patient initially managed nonoperatively as there was no signs of peritonitis or hemodynamic instability; however,
patient did not improve and a repeat CT scan showed worsening pneumoperitoneum with persistent inflammation of the sigmoid colon
POD#22 Caridad's; postop was on pressors and intubated. Off pressors and extubated by POD2
05/27 CT (for bump in WBC) - LUQ collection c/f perisplenic hematoma, expected post-op changes
06/03 US chest with moderate pleural effusion
06/04 CT with staple perisplenic hematoma, no abscess, necrotic omentum noted
06/10- IR drain placement into midline collection (Cx ESBL and Klebsiella)
06/12- 2 units prbcs
06/14- IR drain to LUQ collection (Cx pending)
Pain post IR procedure yesterday, likely d/t location. F/u xr this am without PTX, left pleural effusion still present (likely reactive)
Fevers persist, Tmax 101 overnight, 100.4 this am. Still mildly tachycardic.
Tolerating diet, stoma productive of stool/flatus
- IR drains in place, will continue
- Wound cultures pending from second IR drain
- Continue diet
� Appreciate WOCN
- Appreciate PT� recommending rehab for discharge
� Appreciate hospitalist
- Antibiotics per ID
- Analgesics resumed: Meloxicam and gabapentin scheduled, tylenol, tramadol and dilaudid prn
-C/W lovenox and SCDs for VTE ppx
Subjective Data
Procedure
05/22/2024- 1) exploratory laparotomy 2) Caridad's resection (sigmoidectomy with rectopexy)
Subjective Data
Date of Service: June 15, 2024
Patient seen and examined at bedside with Dr. Philip. Krishnamurthy in pain. Reports significant discomfort around left sided IR drain since placement which she describes as spasms. Denies n/v. Tolerating diet. Denies abdominal pain.
Objective Data
-
Vital Signs
Temp Pulse Resp BP Pulse Ox
100.4 F H 104 16 164/110 92
06/15/24 07:35 06/15/24 09:26 06/15/24 07:35 06/15/24 09:26 06/15/24 07:35
Intake & Output
06/14/24 06/15/24 06/16/24
06:59 06:59 06:59
Intake Total 1090 / 1090 1230 / 1230
Output Total 850 / 850 355 / 355
Balance 240 / 240 875 / 875
Intake:
Oral fluids 1080 / 1080 1230 / 1230
IV fluids (Total) 0 / 0
IV piggybacks 0 / 0
Amount instilled into Drain ( / 10
Total)
Right Abdomen Placed in IR 10 / 10
Output:
Drain Output (Total) 50 / 50 105 / 105
Left Upper Abdomen Placed in IR 65 / 65
Right Abdomen Placed in IR 50 / 50 40 / 40
Urine, Voided 800 / 800 250 / 250
Other:
Number of approximated SMALL 1
amounts of urine
Number of approximated MODERATE 2
amounts of urine
How many times incontinent 1
SMALL amount urine
How many times incontinent 1 1
MODERATE amount urine
How many times incontinent 1
SATURATED amount urine
Lab Results
06/15/24 07:40
06/15/24 07:40
Physical Exam
-
General: No Acute Distress and AOx3
Abdomen: Soft, Non Distended, Non Tender and Other (colostomy warm and pink with output, IR drain with feculent output to the right abdomen. LUQ drain with old blood)
Skin: Warm and Dry
Incision: Clear, Dry, Intact
[2024-06-15] MEDS: MOBIC 15 MG PO (09:57)
[2024-06-15 12:33] LABS: Glucose - Point of Care 169 mg/dl (70-99)
[2024-06-15] MEDS: NOVOLOG FLEXPEN-MODERATE RESISTANCE 1 UNITS SC (13:17)
[2024-06-15] MEDS: INVANZ 60 MG IV (13:17)
[2024-06-15 14:22] LABS: LDH 300 U/L (120-246)
[2024-06-15 15:51] VITALS: BP 177/93
[2024-06-15] MEDS: NEURONTIN 100 MG PO ×2 (16:01→21:48)
[2024-06-15 16:37] VITALS: BP 178/101; BP_SYST 112
--- NOTE | 2024-06-15 17:33 | W.PN.IRAD.PR ---
Procedure Note
-
Left thoracentesis performed under US guidance with return 750cc cloudy yellow pleural fluid. Procedure stopped at 750cc secondary to pain. No immediate complications, post thora CXR with no PTX.
[2024-06-15 17:34] VITALS: BP 131/74
[2024-06-15 17:41] LABS: Glucose - Point of Care 119 mg/dl (70-99)
[2024-06-15 17:49] LABS: Body Fluid pH 7.41
[2024-06-15] MEDS: CRESTOR 30 MG PO (17:49)
[2024-06-15] MEDS: LOVENOX 40 MG SC (17:50)
[2024-06-15 18:10] LABS: Body Fluid LDH 386 U/L; Body Fluid Protein 3.8 g/dl
[2024-06-15 21:56] LABS: Glucose - Point of Care 164 mg/dl (70-99)
[2024-06-15 23:36] VITALS: BP 147/76
[2024-06-16 05:37] LABS: Hematocrit 24.7 % (37.0-47.0); Hemoglobin 8.1 g/dL (12.0-16.0); Mean Corp Hgb Conc. 32.8 g/dL (33.0-37.0); Mean Corpuscular Hgb 27.8 pg (27.0-31.0); Mean Corpuscular Volume 84.9 fL (81.0-99.0); Mean Platelet Volume 10.8 fL (7.4-10.4); Platelet Count 407 10^3/uL (130-400); Red Blood Cell Count 2.91 10^6/uL (4.20-5.40); Red Cell Dist. Width 15.9 % (11.5-14.5); White Blood Cell Count 12.1 10^3/uL (4.8-10.8)
[2024-06-16 06:01] LABS: Blood Urea Nitrogen 14 mg/dl (7-17); Carbon Dioxide 30 mmol/L (22-30); Chloride 100 mmol/L (98-107); Estimated Creatinine Clearance 100 ml/min; Glucose 118 mg/dl (70-99); Potassium 4.1 mmol/L (3.5-5.1); Sodium 137 mmol/L (135-145); eGFR > 60.00
[2024-06-16 07:16] LABS: Glucose - Point of Care 122 mg/dl (70-99)
[2024-06-16] MEDS: DILAUDID 0.5 MG IV ×3 (07:28→16:39)
[2024-06-16 07:40] VITALS: BP 170/98
[2024-06-16] MEDS: FARXIGA 10 MG PO (08:50)
[2024-06-16] MEDS: PROCARDIA XL (EXTENDED RELEASE) 30 MG PO ×2 (08:50→21:17)
[2024-06-16] MEDS: APRESOLINE 10 MG IV (08:50)
[2024-06-16] MEDS: LOW STRENGTH ASPIRIN 81 MG PO (08:51)
[2024-06-16] MEDS: NEURONTIN 100 MG PO ×3 (08:51→21:12)
[2024-06-16] MEDS: PROTONIX 40 MG PO (08:51)
[2024-06-16] MEDS: COZAAR 50 MG PO ×2 (08:51→21:17)
[2024-06-16] MEDS: LOPRESSOR 100 MG PO ×2 (08:51→21:17)
[2024-06-16] MEDS: LANTUS 0.08 UNITS SC (08:51)
[2024-06-16] MEDS: NOVOLOG FLEXPEN-MODERATE RESISTANCE SC (08:54)
[2024-06-16] MEDS: NOVOLOG FLEXPEN 4 UNITS SC ×3 (08:54→17:13)
[2024-06-16] MEDS: DESENEX/MITRAZOL/ZEASORB 1 APPLIC TOPICAL ×2 (08:56→21:12)
--- NOTE | 2024-06-16 08:58 | W.PN.CRS1 ---
Addendum entered and electronically signed by Jeff Perera MD 06/16/24 10:39:
I saw and examined the patient independently.
The [employer] Adjuster's note was reviewed and I agree with the note, assessment and plan except where noted below.
Comment: This is a 58-year-old female with history of recurrent diverticulitis, complex hospital course postoperative day 23 from Caridad's procedure. Multiple drains for intra-abdominal collections as well as a thoracentesis yesterday for pleural
effusion (likely reactive).
Continue IR drains with periodic flushing.
Antibiotics per ID
Continue diet
Colorectal surgery will resume following this patient tomorrow.
Original Note:
Today's Communication / Plan
-
C/W ABX/IR drains
Pain management
Assessment/Plan
-
58-year-old female with PMH of recurrent diverticulitis (multiple episodes over the last 25 years), recent UTI on 04/29 seen in the [place] ED, HTN, DM (on Mounjaro), breast cancer s/p resection and chemo, endometrial cancer s/p LETI/BSO,? Aortic
stent who presented with acute abdominal pain, CT concerning for perforated diverticulitis with flecks of free air around the abdomen; patient initially managed nonoperatively as there was no signs of peritonitis or hemodynamic instability; however,
patient did not improve and a repeat CT scan showed worsening pneumoperitoneum with persistent inflammation of the sigmoid colon
POD#22 Caridad's; postop was on pressors and intubated. Off pressors and extubated by POD2
/2 CT (for bump in WBC) - LUQ collection c/f perisplenic hematoma, expected post-op changes
06/03 US chest with moderate pleural effusion
06/04 CT with stable perisplenic hematoma, no abscess, necrotic omentum noted
06/09 CT with large 14.7cm midline abscess, ?pericolic gutter abscess, perisplenic collection relatively stable in size
06/10- IR drain placement into midline collection (Cx ESBL and Klebsiella)
06/12- 2 units prbcs
06/14- CT with improving midline abscess, fluid in pericolic gutter still present as was perisplenic collection. IR drain to LUQ collection, final Cx pending, prelim with GNB suggestive of infected hematoma
06/15 Thoracentesis for large left pleural effusion, 750ml removed
Fevers persist, Tmax 101.1. Still mildly tachycardic.
Leukocytosis present with slight uptrend
Tolerating diet, stoma productive of stool/flatus
Old blood from LUQ drain
?feculent material in the midline drain
- Continue IR drains x2
- Wound cultures pending from second IR drain placement, GNB thus far
- Continue diet
� Appreciate WOCN
- Appreciate PT� recommending rehab for discharge, CM following for placement
� Appreciate hospitalist
- Antibiotics per ID
- Analgesics: Meloxicam and gabapentin scheduled, tylenol, tramadol, skelaxin and dilaudid prn
-C/W lovenox and SCDs for VTE ppx
Subjective Data
Procedure
05/22/2024- 1) exploratory laparotomy 2) Caridad's resection (sigmoidectomy with rectopexy)
Subjective Data
Date of Service: June 16, 2024
Patient seen and examined at bedside with Dr. Perera. Pain much improved from yesterday. Still with discomfort on the left side with movement and deep breathing. Denies n/v. Tolerating diet.
Objective Data
-
Vital Signs
Temp Pulse Resp BP Pulse Ox
101.1 F H 112 16 170/98 93
06/16/24 07:40 06/16/24 08:50 06/16/24 07:40 06/16/24 08:50 06/16/24 07:40
Intake & Output
06/15/24 06/16/24 06/17/24
06:59 06:59 06:59
Intake Total 1230 / 1230 615 / 615 360 / 360
Output Total 355 / 355 1185 / 1185
Balance 875 / 875 -570 / -570 338 / 338
Intake:
Oral fluids 1230 / 1230 600 / 600 360 / 360
Amount instilled into Drain (
Total)
Left Upper Abdomen Placed in IR 5 / 5
Right Abdomen Placed in IR 10 / 10
Output:
Drain Output (Total) 105 / 105 85 / 85
Left Upper Abdomen Placed in IR 65 / 65 55 / 55
Right Abdomen Placed in IR 40 / 40 30 / 30
Urine, Voided 250 / 250 1100 / 1100
Other:
How many times incontinent 1
SMALL amount urine
How many times incontinent 1
MODERATE amount urine
How many times incontinent 1
SATURATED amount urine
Lab Results
06/16/24 04:59
06/16/24 04:59
Physical Exam
-
General: No Acute Distress and AOx3
Abdomen: Soft, Non Distended, Non Tender and Other (colostomy warm and pink with output, IR drain with light possibly feculent output to the right abdomen. LUQ drain with old blood)
Skin: Warm and Dry
Incision: Clear, Dry, Intact
--- NOTE | 2024-06-16 09:39 | W.PN.HOSP.TC ---
Today's Communication/Plan
-
Blood cultures
Pleural fluid cultures
Continue ertapenem
Assessment / Plan
Assessment / Plan
Assessment
58-year-old female with past medical history significant for hypertension, diabetes mellitus, history of breast cancer, history of endometrial cancer s/p hysterectomy, diverticulitis, coarctation of aorta presented to the ER with abdominal
discomfort and was diagnosed with sigmoid diverticulitis with perforation. She is status post Barbour's procedure, POD day 23.
Impression
Acute sigmoid diverticulitis with perforation s/p exploratory laparotomy and Barbour's procedure
Multifactorial shock
Bacteroides bacteremia
Pleural effusion
Acute blood loss anemia
Hypertension
Sinus tachycardia
TIFFANI
Acute transaminitis
Insulin-dependent diabetes mellitus
Coarctation of aorta
Iatrogenic volume overload
Hypercholesterolemia
Plan
#Acute sigmoid diverticulitis with perforation
Status post exploratory laparotomy/Barbour's procedure�POD# [address] scan in ED showing sigmoid diverticulitis with perforation
Patient underwent elective exploratory laparotomy resection and Caridad procedure
Stoma productive of stool and flatus
JODIE drains in place, monitor drain output
Patient tolerating 1800-calorie diabetic diet well
# Multifactorial shock
Likely sepsis, hypovolemic
Patient previously requiring postop vasopressor support
Weaned off of pressors
# Bacteroids bacteremia
ESBL ecoli peritonitis
Intraoperative abdominal fluid culture growing ESBL E. coli
Bacteroides isolated preoperatively on blood culture 1 set, repeat negative
Repeat blood cultures
On ertapenem, day 16
Continue ertapenem
Overnight midline was changed to PICC line, patient will use PICC line to receive IV antibiotics on discharge
#Pleural effusion
Patient has been having variable intermittent fevers
White count trending up
Interventional radiology drained 750 cc of cloudy yellow pleural fluid
Exudative fluid, pending pleural fluid culture
ID follow-up appreciated
Pain meds ordered as needed
# Acute blood loss anemia
s/p 3 units PRBC this admission
monitor CBC
Transfuse if hemoglobin drops below 7
#Hypertension
PMH coartation of aorta with stent
Currently taking 3 blood pressure meds
No blood pressure discrepancy in brachial pressures on check
Increase metoprolol to 100 mg twice daily
Requested old echo and CTA from PT's paint stock clerk
#Sinus tachycardia
Patient has been consistently tachycardic since admission, running in the high 90s to low 120s
Patient asymptomatic
TSH normal.
Doubt PE as patient is on Lovenox DVT prophylaxis on a regular basis. Continue to follow tachycardia
#TIFFANI
AGAP metabolic acidosis
Hyponatremia
Renal function has normalized
Hyponatremia has resolved
# Acute transaminitis
Resolved
Restarted home rosuvastatin
Check CMP
# IDDM
Hemoglobin A1c of 7.4
Patient requiring insulin gtt. support in ICU
Maintain on and NovoLog with sliding scale
Diabetic nurse practitioner managing
Patient's diabetic meds were refilled to pharmacy in anticipation of discharge to SNF
# Coarctation of the Aorta
Systolic murmur heard on exam
s/p prior aortic stenting.
Continue ASA
Monitor blood pressure
#Iatrogenic volume overload
-Patient came in 99 kg, up to 107 kg
Down to 96.2 kg
Status post diuresis with IV and oral Lasix
Will continue to reassess volume status and need for diuresis with weights and clinical exam
Hypercholesterolemia
No LFT abnormality on labs
Restarted pt home rosuvastatin dose
Check CMP
DVT Prophylaxis: Heparin subq
Full code
Anticipated Discharge: 24 - 48 hours
Subjective/Interval History
-
Date of Service: June 16, 2024
Patient reports deep breathing hurts. Did not have any chills overnight.
Objective Data
-
Labs:
Laboratory Results
06/16/24
04:59
WBC 12.1 H
Hgb 8.1 L
Hct 24.7 L
Plt Count 407 H
Sodium 137
Potassium 4.1
Chloride 100
Carbon Dioxide 30
BUN 14
Creatinine 0.7
Glucose 118 H
Calcium 8.0 L
Vital Signs:
Vital Signs
Temp Pulse Resp BP Pulse Ox
101.1 F H 112 16 170/98 93
06/16/24 07:40 06/16/24 08:50 06/16/24 07:40 06/16/24 08:50 06/16/24 07:40
I&O
06/15/24 06/16/24 06/17/24
06:59 06:59 06:59
Intake Total 1230 / 1230 615 / 615 360 / 360
Output Total 355 / 355 1185 / 1185
Balance 875 / 875 -570 / -570 338 / 338
Review of Systems
-
All other systems: Reviewed and negative (Except as mentioned above)
Physical Exam
-
General: No Apparent Distress
HEENT: Normocephalic and Atraumatic
Respiratory: Clear to Auscultation
Cardiac: Regular Rhythm and S1/S2
GI: Soft, Nontender, Ostomy ([place] mucosa, colostomy bag with air and brown fecal matter) and Other (JODIE drains in place, midline incisional wound- dry, intact)
Skin: Warm and Dry
Neuro: Awake, Alert, Oriented and AO x 3
[2024-06-16] MEDS: INVANZ 60 MG IV (12:12)
[2024-06-16 12:14] LABS: Glucose - Point of Care 190 mg/dl (70-99)
[2024-06-16] MEDS: NOVOLOG FLEXPEN-MODERATE RESISTANCE 1 UNITS SC (12:22)
--- NOTE | 2024-06-16 12:39 | W.PN.ID1 ---
Date of Service
Date of Service: June 16, 2024
Today's Communication
Continue Ertapenem.
Check blood cx.
Follow cx's.
Assessment / Plan
New Fever
-onset 06/15
Leukocytosis
- trending up
Diverticulitis with diverticular perforation
- s/p diverting colostomy (05/22/2024).
- Intra-op splenic capsular tear with likely hematoma
LUQ abd collection -infected hematoma
-s/p drain placement (06/14/24) - bloody
- Fluid cx: GNR
Anterior abdominal collection/abscess
- s/p drainage (06/10/24)
- Cultures with Klebsiella pneumoniae and ESBL E. coli
Left pleural effusion
- s/p thoracentesis 750cc cloudy yellow fluid (06/15/24)
-exudative
Hx Bacteroides bacteremia; cleared
HTN
DM
Hx breast CA
Hx endometrial CA
Diverticulitis
Recommendations:
Ordered bcx.
Renewed Ertapenem (d16). Anticipate 28d or longer abx.
Follow LUQ and Left pleural fluid cx's.
Trend WBC/temps.
����������������������������������������������������������
Chief Complaint
-: Other (Abdominal infection)
Subjective / Review of Systems
LUQ drain site pain better.
Vital Signs / Physical Exam
Vital Signs
Vital Signs
Temp Pulse Resp BP Pulse Ox
101.1 F H 112 16 170/98 93
06/16/24 07:40 06/16/24 08:50 06/16/24 07:40 06/16/24 08:50 06/16/24 07:40
Physical Exam
Constitutional: No Acute Distress and Comfortable
Eyes: No Conjunctival Hemorrhage and Sclera Anicteric
Cardiovascular: Regular Rate and S1/S2
Pulmonary: Other (decreased BS bases)
Gastrointestinal: Soft, Non Tender, Non Distended, Normal Bowel Sounds and Other (Midline incision dry, + eschars; LUQ JODIE drain bloody output, RLQ JODIE drain- serosanguinous fluid)
Genito-Urinary: Negative CVA Tenderness
Neurological: AO x 3
Lines: PICC (LUE intact)
Objective Data
Lab Data
Lab Results
06/16/24 04:59
06/16/24 04:59
PT 16.1 Sec (11.4-14.6) H 05/22/24 19:57
INR 1.28 05/22/24 19:57
APTT 28.3 Sec (23.4-35.0) 05/22/24 19:57
Estimated Creat Clear 100 ml/min 06/16/24 04:59
Lactic Acid 1.2 mmol/L (0.7-2.0) 05/20/24 22:09
Total Bilirubin 0.5 mg/dl (0.2-1.3) 06/15/24 07:40
AST 35 U/L (14-36) 06/15/24 07:40
ALT 21 U/L (0-35) 06/15/24 07:40
Alkaline Phosphatase 74 U/L (38-126) 06/15/24 07:40
Most recent labs reviewed.
Micro Results:
06/14/24 18:10 Body Fluid Culture - Preliminary
Fluid Gram negative bacilli
Gram Stain - Preliminary
06/15/24 13:43 Body Fluid Culture - Pending
Pleural Fluid Gram Stain - Pending
06/09/24 10:30 Blood Culture - Final
Blood/Venous No Growth - Final Report
06/09/24 10:29 Blood Culture - Final
Blood/Venous No Growth - Final Report
06/10/24 12:54 Wound Culture - Final
Abdomen Escherichia coli - ESBL
Klebsiella pneumoniae
Gram Stain - Final
06/02/24 12:02 Blood Culture - Final
Blood/Venous No Growth - Final Report
06/02/24 09:36 Blood Culture - Final
Blood/Venous No Growth - Final Report
05/22/24 08:00 Wound Culture - Final
Abdomen Escherichia coli - ESBL
Gram Stain - Final
05/22/24 08:00 Anaerobic Culture - Final
Abdomen
05/19/24 20:48 Blood Culture - Final
Blood/Venous Bacteroides distasonis
Gram Stain - Final
05/21/24 17:56 Blood Culture - Final
Blood/Venous No Growth - Final Report
Imaging:
06/04/2024 CT abdomen/pelvis with contrast: Heterogeneous collection in the left upper quadrant, superior to the spleen and upper stomach. The patient has a history of splenic laceration during splenic flexure takedown, and this most likely
represents a hematoma. Measurements without significant change from examination of May 27, 2024. Although this was not a CT angiography examination, there is no CT evidence to suggest significant active bleeding. There is fluid in the left
paracolic gutter and extending slightly medially in the left lower abdomen adjacent to small bowel loops. This fluid has slightly increased since examination May 27, 2024. There is a drainage catheter with its tip is in the inferior aspect of
this fluid collection. There is an unusual ovoid fat, fluid, and air density in the midline abdomen posterior to the abdominal wall. This is felt to likely represent necrotic omentum, and superimposed infection cannot be excluded. There is no
evidence of a drainable collection at this time. Moderate subcutaneous edema. This is slightly improved from examination of May 27, 2024.
05/27/2024 CT abdomen/pelvis with contrast: There is 7 x 8 x 3 cm intermediate density heterogeneous left subdiaphragmatic fluid collection containing a small amount of extraluminal gas. Differential diagnosis for this collection includes hematoma
and abscess. Sigmoidectomy with left lower quadrant colostomy. Moderate ascites including areas of loculated fluid in the abdomen and pelvis. Small left pleural effusion with compressive atelectasis at the posterior left lung base. Please see
full dictation for additional detail.
Care Review
Plan reviewed with: Physician (Dr. Traylor)
--- NOTE | 2024-06-16 15:34 | W.PN.UPDATE ---
Update Note
Progress Note Update
Seen and examined by me independently in collaboration with the medical records receptionist.
Lab data and imaging data reviewed.
Addendum as below :
Patient feels okay apart from intermittent left-sided chest wall pain.
Has ongoing fevers but she does not feel it. She feels well. Tolerating diet.
Abdomen soft. Output from drains noted-70 in the mid abdominal drain and 37 from the left upper quadrant. There is posterior left thoracentesis which is exudative but pH is okay. Await cultures from pleural fluid. Remains on ertapenem. Asked ID
to reevaluate her today again- follow cx and cw Ertapenem.
HD stable and nontoxic.
[2024-06-16 16:00] VITALS: BP 113/72
[2024-06-16 16:38] LABS: Glucose - Point of Care 210 mg/dl (70-99)
[2024-06-16] MEDS: TYLENOL 650 MG PO ×2 (16:39→22:56)
[2024-06-16] MEDS: NOVOLOG FLEXPEN-MODERATE RESISTANCE 3 UNITS SC (17:12)
[2024-06-16] MEDS: LOVENOX 40 MG SC (17:12)
[2024-06-16] MEDS: CRESTOR 30 MG PO (17:12)
--- NOTE | 2024-06-16 18:14 | PTCARENOTE ---
pt OOB to the chair for 1 hour today she was heavy assist x 2 people with RW to get there, does not help much with activity, febrile this shift so medicated appropriately.
[2024-06-16 21:18] LABS: Glucose - Point of Care 163 mg/dl (70-99)
[2024-06-16 22:52] VITALS: BP 131/72
[2024-06-17] MEDS: TYLENOL 650 MG PO ×2 (05:02→18:04)
[2024-06-17 05:21] LABS: Hematocrit 25.7 % (37.0-47.0); Hemoglobin 8.3 g/dL (12.0-16.0); Mean Corp Hgb Conc. 32.3 g/dL (33.0-37.0); Mean Corpuscular Hgb 28.2 pg (27.0-31.0); Mean Corpuscular Volume 87.4 fL (81.0-99.0); Mean Platelet Volume 10.6 fL (7.4-10.4); Platelet Count 390 10^3/uL (130-400); Red Blood Cell Count 2.94 10^6/uL (4.20-5.40); Red Cell Dist. Width 15.9 % (11.5-14.5); White Blood Cell Count 13.7 10^3/uL (4.8-10.8)
[2024-06-17 05:42] LABS: Blood Urea Nitrogen 17 mg/dl (7-17); Calcium 8.3 mg/dl (8.4-10.2); Carbon Dioxide 26 mmol/L (22-30); Chloride 99 mmol/L (98-107); Estimated Creatinine Clearance 87 ml/min; Glucose 118 mg/dl (70-99); Potassium 4.1 mmol/L (3.5-5.1); Sodium 137 mmol/L (135-145); eGFR > 60.00
[2024-06-17] MEDS: ULTRAM 50 MG PO ×3 (06:39→20:51)
--- NOTE | 2024-06-17 06:59 | PN.DE.MGMTRT ---
Insulin Management
- -
06/17/2024: Diabetes Management F/U:
Patient admitted 05/19 with acute sigmoid diverticulitis with perforation. PMH endometrial CA, breast CA, HTN, HCL, steroid induced diabetes. Prior to admission was taking 19 units NovoLog AC with Mounjaro 2.[address] Cordova
and Omer Ndiaye PA-c at [facility]. Recently was started on Mounjaro and Jardiance and had frequent low blood sugars. She states she could not get an appointment with Omer so she called her primary doctor who told her to stop Lantus and
Jardiance due to hypoglycemia. A1C is 7.4, Cr 1.5, eGFR 39.65. Extubated 05/23, transitioned off of glycemic protocol 05/25.
Patient is awake and A/O x3. Able to discuss diabetes management. Son at bedside, supportive
POD# 23, s/p exp lap/Barbour's procedure with diverting colostomy (05/22/2024)
06/10 drain insertion, 06/14, 2nd drain placement. 06/15 thoracentesis-750cc removed, doing well.
06/16 noted for isolated spike in blood sugar pre-dinner to 210, otherwise, glucose stable and in range of 122 to 163, Fasting today 118(V).
Will make no changes to current regimen: Continue NovoLog 4 units AC with moderate corrective, Farxiga 10 mg daily (at home taking Jardiance 10 mg daily) and Lantus 8 units in AM, with Mounjaro 5 mg weekly on Monday.
Pt states that Jardiance will not be provided to her while in rehab due to cost. She has requested script for Jardiance to be sent to pharmacy so her son can pick it up and have it ready to take to rehab.
Discussed with patient and nurse.
Diabetes History
- -
Type of Diabetes: 2 requiring insulin
Pre-Admission Diabetes Regimen
06/17/24
05:09
Creatinine 0.8
Lab Results
Hemoglobin A1c 7.4 % (4.0-5.6) H 05/20/24 05:23
Insulin Pump Settings
IP Diabetes Regimen
06/16/24 06/16/24 06/16/24
07:15 12:12 16:37
Glucose
POC Glucose 122 H 190 H 210 H
06/16/24 06/17/24
21:16 05:09
Glucose 118 H
POC Glucose 163 H
Meal type: Dinner
Meal type: Lunch
Meal type: Breakfast
Amount consumed: 100%
Amount consumed: 100%
Amount consumed: 100%
Patient Education
--- NOTE | 2024-06-17 07:26 | W.PN.HOSP.TC ---
Addendum entered and electronically signed by Sharmin Khan MD 06/17/24 15:51:
I saw and evaluated the patient independently. I reviewed the resident�s note and agree with findings and plan as documented by Dr. Smith.
GENERAL: well developed, well nourished, female in no apparent distress
HEENT: NC/AT--no O2 requirements
HEART: regular rate and rhythm, +S1, +S2
LUNGS : clear to auscultation bilaterally
ABDOM: soft, nontender, nondistended, + bowel sounds--ostomy in place--JODIE drains in place
EXT: no cyanosis, clubbing--bruised right wrist--2-3+ LE edema bilaterally--
NEUROLOGIC: grossly intact
fevers-- ongoing--on Ertapenem (day 16)-- possible sources (infected hematoma, increasing abdominal collections with possible infection, drains placed by IR)--fistulogram per IR (results pending)--apprec ID
Acute sigmoid diverticulitis with perforation, s/p shock---apprec colorectal surgery--exp lap with ostomy and JODIE drain (still in place) on 05/24/24--Patient tolerating 1800-calorie diabetic diet well
Exudative pleural effusion -- s/p thoracentesis 06/14 with 750 mls drained--check CXR as pt c/o left sided chest pain....
Bacteroids distasonis bacteremia with ESBL E. coli positive wound cultures (peritonitis)--positive intraoperative wound cultures with Intermittent fevers--thought to be due to possible Perisplenic hematoma---apprec ID--cont Invanz
Acute blood loss anemia--s/p 3 units PRBC this admission--JODIE with serosanguineous drainage--follow HGB--transfuse if HGB < 7
edema--bilateral LE--weights up (99kg on admission, now down to 96.2Kg 06/17/24)---pt developed contraction alkalosis--stopped diuresis
TIFFANI --resolved
Hyponatremia--likely volume overload--resolved
Acute transaminitis--likely due to all above-- improved
Type 2 DM--insulin requiring --Hemoglobin A1c of 7.4--apprec DM TURNSTILE ATTENDANT assistance
H/o Coarctation of the Aorta--s/p prior aortic stenting--Continue ASA--Monitor blood pressure
HLD--cont statin
DVT Prophylaxis: Heparin subq
deconditioned--due to surgery, chronic arthritis issues, (edema per pt)--PT/OT---plan for SNF, when medically stable
Code Status-- Full Code
Original Note:
Today's Communication/Plan
-
CXR ordered
Fistulogram with IR as per colorectal
Continue ertapenem
Assessment / Plan
Assessment / Plan
Assessment
58-year-old female with past medical history significant for hypertension, diabetes mellitus, history of breast cancer, history of endometrial cancer s/p hysterectomy, diverticulitis, coarctation of aorta presented to the ER with abdominal
discomfort and was diagnosed with sigmoid diverticulitis with perforation. She is status post Barbour's procedure, POD day 23.
Impression
Acute sigmoid diverticulitis with perforation s/p exploratory laparotomy and Barbour's procedure
Multifactorial shock
Bacteroides bacteremia
Pleural effusion
Acute blood loss anemia
Hypertension
Sinus tachycardia
TIFFANI
Acute transaminitis
Insulin-dependent diabetes mellitus
Coarctation of aorta
Iatrogenic volume overload
Hypercholesterolemia
Plan
#Acute sigmoid diverticulitis with perforation
Status post exploratory laparotomy/Barbour's procedure�POD# [address] scan in ED showing sigmoid diverticulitis with perforation
Patient underwent elective exploratory laparotomy resection and Caridad procedure
Stoma productive of stool and flatus
JODIE drains in place, monitor drain output
Midline drain with fecal like drainage- fistulogram with IR as per colorectal
Patient tolerating 1800-calorie diabetic diet well
#Multifactorial shock
Likely sepsis, hypovolemic
Patient previously requiring postop vasopressor support
Weaned off of pressors
#Bacteroids bacteremia
ESBL ecoli peritonitis
Intraoperative abdominal fluid culture growing ESBL E. coli
Bacteroides isolated preoperatively on blood culture 1 set, repeat negative
On ertapenem (day 16) continue
Blood Cultures-no growth
#Pleural effusion
Patient has been having variable intermittent fevers
White count trending up; today 13.7
Interventional radiology drained 750 cc of cloudy yellow pleural fluid on 06/14
Pleural fluid culture-no growth
ID follow-up appreciated
Pain meds ordered as needed
Repeat CXR for possible pneumothorax
# Acute blood loss anemia
s/p 3 units PRBC this admission
monitor CBC
Transfuse if hemoglobin drops below 7
#Hypertension
PMH coartation of aorta with stent
Currently taking 3 blood pressure meds
No blood pressure discrepancy in brachial pressures on check
Increase metoprolol to 100 mg twice daily
Requested old echo and CTA from PT's field insurance sales manager
#Sinus tachycardia
Patient has been consistently tachycardic since admission, running in the high 90s to low 120s
Patient asymptomatic
TSH normal
Doubt PE as patient is on Lovenox DVT prophylaxis on a regular basis. Continue to follow tachycardia
#TIFFANI
AGAP metabolic acidosis
Hyponatremia
Renal function has normalized
Hyponatremia has resolved
# Acute transaminitis
Resolved
Restarted home rosuvastatin
Normal LFT
# IDDM
Hemoglobin A1c of 7.4
Patient requiring insulin gtt. support in ICU
Maintain on and NovoLog with sliding scale
Diabetic nurse practitioner managing
# Coarctation of the Aorta
Systolic murmur heard on exam
s/p prior aortic stenting.
Continue ASA
Monitor blood pressure
#Iatrogenic volume overload
Patient came in 99 kg, up to 107 kg
Will continue to reassess volume status and need for diuresis with weights and clinical exam
Current weight is 92.6kg
#Hypercholesterolemia
No LFT abnormality on labs
Continue statin
Check CMP
DVT Prophylaxis: Heparin subq
Full code
Anticipated Discharge: 24 - 48 hours
Subjective/Interval History
-
Date of Service: June 17, 2024
Patient complains of left sided breast and under arm pain since her left subdiaphragmatic collection drain placement.
Objective Data
-
Labs:
Laboratory Results
06/17/24
05:09
WBC 13.7 H
Hgb 8.3 L
Hct 25.7 L
Plt Count 390
Sodium 137
Potassium 4.1
Chloride 99
Carbon Dioxide 26
BUN 17
Creatinine 0.8
Glucose 118 H
Calcium 8.3 L
Vital Signs:
Vital Signs
Temp Pulse Resp BP Pulse Ox
99.4 F 94 20 131/72 93
06/17/24 01:09 06/16/24 22:52 06/16/24 22:52 06/16/24 22:52 06/17/24 00:13
I&O
06/16/24 06/17/24 06/18/24
06:59 06:59 06:59
Intake Total 615 / 615 1565 / 1565
Output Total 1185 / 1185 977 / 977
Balance -570 / -570 588 / 588 -
Review of Systems
-
All other systems: Reviewed and negative
Physical Exam
-
General: No Apparent Distress
HEENT: Normocephalic
Respiratory: Clear to Auscultation
Cardiac: Regular Rhythm and S1/S2
GI: Soft, Nontender, Ostomy (brownish red discharge/?fecal matter) and Other (JODIE drains in place, midline incisional wound-intact)
Skin: Warm and Dry
Neuro: Awake, Alert and Oriented
Psych: Calm
[2024-06-17 07:35] VITALS: BP 129/71
[2024-06-17 07:45] LABS: Glucose - Point of Care 133 mg/dl (70-99)
[2024-06-17] MEDS: NOVOLOG FLEXPEN-MODERATE RESISTANCE SC ×2 (08:03→20:48)
[2024-06-17] MEDS: PROCARDIA XL (EXTENDED RELEASE) 30 MG PO ×2 (08:07→20:48)
[2024-06-17] MEDS: PROTONIX 40 MG PO (08:07)
[2024-06-17] MEDS: FARXIGA 10 MG PO (08:07)
[2024-06-17] MEDS: NEURONTIN 100 MG PO ×3 (08:08→20:52)
[2024-06-17] MEDS: DESENEX/MITRAZOL/ZEASORB 1 APPLIC TOPICAL ×2 (08:08→20:48)
[2024-06-17] MEDS: COZAAR 50 MG PO ×2 (08:08→20:47)
[2024-06-17] MEDS: LANTUS 0.08 UNITS SC (08:08)
[2024-06-17] MEDS: LOPRESSOR 100 MG PO ×2 (08:09→20:47)
[2024-06-17] MEDS: NOVOLOG FLEXPEN 4 UNITS SC ×3 (08:09→17:33)
--- NOTE | 2024-06-17 11:07 | W.PN.CRS1 ---
Today's Communication / Plan
-
IR consult for fistulogram
Assessment/Plan
-
58-year-old female with PMH of recurrent diverticulitis (multiple episodes over the last 25 years), recent UTI on 04/29 seen in the [place] ED, HTN, DM (on Mounjaro), breast cancer s/p resection and chemo, endometrial cancer s/p LETI/BSO,? Aortic
stent who presented with acute abdominal pain, CT concerning for perforated diverticulitis with flecks of free air around the abdomen; patient initially managed nonoperatively as there was no signs of peritonitis or hemodynamic instability; however,
patient did not improve and a repeat CT scan showed worsening pneumoperitoneum with persistent inflammation of the sigmoid colon
POD#26 Caridad's; postop was on pressors and intubated. Off pressors and extubated by POD2
05/27 CT (for bump in WBC) - LUQ collection c/f perisplenic hematoma, expected post-op changes
06/03 US chest with moderate pleural effusion
06/04 CT with stable perisplenic hematoma, no abscess, necrotic omentum noted
06/09 CT with large 14.7cm midline abscess, ?pericolic gutter abscess, perisplenic collection relatively stable in size
06/10- IR drain placement into midline collection (Cx ESBL and Klebsiella)
06/12- 2 units prbcs
06/14- CT with improving midline abscess, fluid in pericolic gutter still present as was perisplenic collection. IR drain to LUQ collection, final Cx pending, prelim with GNB suggestive of infected hematoma
06/15 Thoracentesis for large left pleural effusion, 750ml removed
Fevers persist, Tmax 102.1. Still mildly tachycardic.
Leukocytosis 13.7 from 12.1
Tolerating diet, stoma productive of stool/flatus
Old blood from LUQ drain
Feculent material in the midline drain
- Continue IR drains x2. Given feculent appearing material on the right sided drain, I have consulted IR for a fistulogram. Discussed with patient.
- Wound cultures pending from second IR drain placement, GNB thus far
- Continue diet
� Appreciate WOCN
- Appreciate PT� recommending rehab for discharge, CM following for placement
� Appreciate hospitalist
- Antibiotics per ID, currently on Invanz
- Analgesics: Meloxicam and gabapentin scheduled, tylenol, tramadol, skelaxin and dilaudid prn
-C/W lovenox and SCDs for VTE ppx
-Will add a stool softener
Subjective Data
Procedure
05/22/2024- 1) exploratory laparotomy 2) Caridad's resection (sigmoidectomy with rectopexy)
Subjective Data
Date of Service: June 17, 2024
Patient states she has pain in her left upper chest area where the drain was put in. She is tolerating diet. Her colostomy bag has output but she notices the stool is less. She denies nausea or vomiting.
Objective Data
-
Vital Signs
Temp Pulse Resp BP Pulse Ox
100.5 F H 101 18 129/71 91
06/17/24 07:35 06/17/24 08:09 06/17/24 07:35 06/17/24 08:09 06/17/24 09:49
Intake & Output
06/16/24 06/17/24 06/18/24
06:59 06:59 06:59
Intake Total 615 / 615 1565 / 1565
Output Total 1185 / 1185 977 / 977
Balance -570 / -570 588 / 588 - -12
Intake:
Oral fluids 600 / 600 1560 / 1560
Amount instilled into Drain (
Total)
Left Upper Abdomen Placed in IR 5 /
Right Abdomen Placed in IR
Output:
Drain Output (Total) 85 / 85 77 / 77
Left Upper Abdomen Placed in IR 55 / 55 50 / 50 10
Right Abdomen Placed in IR 30 / 30
Urine, Voided 1100 / 1100 900 / 900
Other:
How many times incontinent 1
SMALL amount urine
How many times incontinent 1
SATURATED amount urine
Lab Results
06/17/24 05:09
06/17/24 05:09
Physical Exam
-
General: No Acute Distress and AOx3
Abdomen: Soft, Non Distended, Tender (Left upper quadrant) and Other (Colostomy warm and pink. Right sided drain is pus with some feculent appearing material. Left-sided drain is old blood.)
Skin: Warm and Dry
[2024-06-17 11:20] VITALS: BP 116/71; BP 118/65; PULSE 82; O2SAT 93
[2024-06-17 11:25] VITALS: BP 116/71; O2SAT 93
--- NOTE | 2024-06-17 12:05 | WOUNDNOTE ---
WOC RN note: Patient sitting in recliner chair with bariatric air chair cushion. IR on consult for fistulogram d/t fecal appearing liquid in R abdominal JODIE drain. L abdominal stoma flush and pink. No stool in pouch currently. +Flatus. Peristomal
skin intact. Reinstructed patient how to open/close pouch, change appliance using [place] wafer # [id number], Mario seal and Vineet pouch #[id number]. t/c SPD and ordered more ostomy supplies. Patient assisted with cutting wafer, snapping on pouch,
removal of pouch, application of Mario seal and ostomy appliance. Positive reinforcement given. Next appliance change due or Monday.
[2024-06-17 12:09] LABS: Glucose - Point of Care 189 mg/dl (70-99)
--- NOTE | 2024-06-17 12:38 | CM ---
Reviewed the chart notes and spoke with the patient's son at the bedside. Patient for fistulogram today. Hongy ([phone]) with [facility] updated on patient having a thoracentesis on 06/15 for 750ml plural effusion and pending fistulogram. CM
continues to be available to patient/family and is monitoring medical plan for needs at discharge.
Plan: Discharge to [facility] when medically stable. Precert will be required.
[2024-06-17 12:50] VITALS: BP_SYST 100
--- NOTE | 2024-06-17 13:12 | W.PN.ID1 ---
Date of Service
Date of Service: June 17, 2024
Today's Communication
Continue antibiotics.
Assessment / Plan
# Fevers
-onset 06/15
# Leukocytosis
- trending up
# Diverticulitis with diverticular perforation
- s/p diverting colostomy (05/22/2024).
- Intra-op splenic capsular tear with likely hematoma
# LUQ infected hematoma
-s/p drain placement (06/14/24) - bloody
- Fluid cx: ESBL E. coli x2
# Anterior abdominal collection/abscess
- s/p drainage (06/10/24)
- Cultures with Klebsiella pneumoniae and ESBL E. coli
# Left pleural effusion
- s/p thoracentesis 750cc cloudy yellow fluid (06/15/24)
- exudative
Hx Bacteroides bacteremia; cleared
HTN
DM
Hx breast CA
Hx endometrial CA
Diverticulitis
Recommendations:
Blood cultures currently pending.
Continue with ertapenem.
Patient for drain study today.
Continue to follow white count and temperature curve.
����������������������������������������������������������
Chief Complaint
-: Other (Abdominal infection)
Subjective / Review of Systems
Patient seen and examined. Chart reviewed. Over weekend, left upper quadrant drain placed. Ongoing drainage from anterior abdominal area.
Review of Systems: No Fever
Vital Signs / Physical Exam
Vital Signs
Vital Signs
Temp Pulse Resp BP Pulse Ox
100.5 F H 101 18 129/71 91
06/17/24 07:35 06/17/24 08:09 06/17/24 07:35 06/17/24 08:09 06/17/24 09:49
Physical Exam
Constitutional: No Acute Distress, Comfortable, Chronically Ill and Non-toxic
Eyes: No Conjunctival Hemorrhage and Sclera Anicteric
Pulmonary: Non Labored
Gastrointestinal: Soft, Non Tender, Non Distended, Normal Bowel Sounds and Other (Midline incision dry, + eschars; LUQ JODIE drain bloody output, RLQ JODIE drain- serosanguinous fluid)
Genito-Urinary: Negative CVA Tenderness
Extremities: Edema; Negative Erythema
Skin: Warm and Dry; Negative Rash
Neurological: AO x 3
Lines: PICC (LUE intact)
Objective Data
Lab Data
Lab Results
06/17/24 05:09
06/17/24 05:09
PT 16.1 Sec (11.4-14.6) H 05/22/24 19:57
INR 1.28 05/22/24 19:57
APTT 28.3 Sec (23.4-35.0) 05/22/24 19:57
Estimated Creat Clear 87 ml/min 06/17/24 05:09
Lactic Acid 1.2 mmol/L (0.7-2.0) 05/20/24 22:09
Total Bilirubin 0.5 mg/dl (0.2-1.3) 06/15/24 07:40
AST 35 U/L (14-36) 06/15/24 07:40
ALT 21 U/L (0-35) 06/15/24 07:40
Alkaline Phosphatase 74 U/L (38-126) 06/15/24 07:40
Most recent labs reviewed.
Micro Results:
06/15/24 13:43 Body Fluid Culture - Preliminary
Pleural Fluid No Growth After 18-24 Hours
Gram Stain - Preliminary
06/14/24 18:10 Body Fluid Culture - Final
Fluid Escherichia coli - ESBL
Escherichia coli - ESBL#2
Gram Stain - Final
06/16/24 13:28 Blood Culture - Pending
Blood/Venous
06/09/24 10:30 Blood Culture - Final
Blood/Venous No Growth - Final Report
06/09/24 10:29 Blood Culture - Final
Blood/Venous No Growth - Final Report
06/10/24 12:54 Wound Culture - Final
Abdomen Escherichia coli - ESBL
Klebsiella pneumoniae
Gram Stain - Final
06/02/24 12:02 Blood Culture - Final
Blood/Venous No Growth - Final Report
06/02/24 09:36 Blood Culture - Final
Blood/Venous No Growth - Final Report
05/22/24 08:00 Wound Culture - Final
Abdomen Escherichia coli - ESBL
Gram Stain - Final
05/22/24 08:00 Anaerobic Culture - Final
Abdomen
05/19/24 20:48 Blood Culture - Final
Blood/Venous Bacteroides distasonis
Gram Stain - Final
05/21/24 17:56 Blood Culture - Final
Blood/Venous No Growth - Final Report
Imaging:
06/04/2024 CT abdomen/pelvis with contrast: Heterogeneous collection in the left upper quadrant, superior to the spleen and upper stomach. The patient has a history of splenic laceration during splenic flexure takedown, and this most likely
represents a hematoma. Measurements without significant change from examination of May 27, 2024. Although this was not a CT angiography examination, there is no CT evidence to suggest significant active bleeding. There is fluid in the left
paracolic gutter and extending slightly medially in the left lower abdomen adjacent to small bowel loops. This fluid has slightly increased since examination May 27, 2024. There is a drainage catheter with its tip is in the inferior aspect of
this fluid collection. There is an unusual ovoid fat, fluid, and air density in the midline abdomen posterior to the abdominal wall. This is felt to likely represent necrotic omentum, and superimposed infection cannot be excluded. There is no
evidence of a drainable collection at this time. Moderate subcutaneous edema. This is slightly improved from examination of May 27, 2024.
05/27/2024 CT abdomen/pelvis with contrast: There is 7 x 8 x 3 cm intermediate density heterogeneous left subdiaphragmatic fluid collection containing a small amount of extraluminal gas. Differential diagnosis for this collection includes hematoma
and abscess. Sigmoidectomy with left lower quadrant colostomy. Moderate ascites including areas of loculated fluid in the abdomen and pelvis. Small left pleural effusion with compressive atelectasis at the posterior left lung base. Please see
full dictation for additional detail.
Care Review
Plan reviewed with: Physician (CRSx)
--- NOTE | 2024-06-17 14:26 | PTCARENOTE ---
Pt meds late because was with IR. Patient did not want to get back to the chair after saying her legs were not working. Patient pulled over from stretcher to bed with blue transfer assistance. Patient requested to have the purwick back in place and
said she had a long day and just wants to be in bed and have the purwick. Pt was educated on the importance of getting up and using the commode and moving. Pt understands but still wanted purwick.
[2024-06-17] MEDS: INVANZ 60 MG IV (14:46)
[2024-06-17] MEDS: COLACE 100 MG PO ×2 (14:48→20:47)
[2024-06-17] MEDS: NOVOLOG FLEXPEN-MODERATE RESISTANCE 1 UNITS SC (14:49)
[2024-06-17] MEDS: CRESTOR 30 MG PO (17:24)
[2024-06-17] MEDS: LOVENOX 40 MG SC (17:26)
[2024-06-17 17:32] LABS: Glucose - Point of Care 183 mg/dl (70-99)
[2024-06-17 17:55] VITALS: BP 154/74
[2024-06-17 21:36] LABS: Glucose - Point of Care 163 mg/dl (70-99)
[2024-06-17 22:50] VITALS: BP 127/60
[2024-06-18] VITALS (9 sets, daily range): BP systolic 103–177; BP diastolic 55–88; PULSE 105; BMI 34.1
[2024-06-18 05:21] LABS: % Basophils 0.4 % (0-2); % Eosinophils 1.7 % (0-6); % Immature Granulocytes 2.5 % (0-0.5); % Lymphocytes 12.8 % (20.5-51.1); % Monocytes 9.3 % (1.7-9.3); % Neutrophils 73.3 % (42.2-75.2); Absolute Basophils 0.1 10^3/uL (0-0.2); Absolute Eosinophils 0.2 10^3/uL (0-0.7); Absolute Immature Granulocytes 0.3 10^3/uL (0-0.05); Absolute Lymphocytes 1.6 10^3/uL (1.2-3.4); Absolute Monocytes 1.1 10^3/uL (0.1-0.6); Hematocrit 22.7 % (37.0-47.0); Hemoglobin 7.3 g/dL (12.0-16.0); Mean Corp Hgb Conc. 32.2 g/dL (33.0-37.0); Mean Corpuscular Hgb 27.1 pg (27.0-31.0); Mean Corpuscular Volume 84.4 fL (81.0-99.0); Mean Platelet Volume 10.7 fL (7.4-10.4); Nucleated Red Blood Cells % 0 %; Platelet Count 382 10^3/uL (130-400); Red Blood Cell Count 2.69 10^6/uL (4.20-5.40); White Blood Cell Count 12.2 10^3/uL (4.8-10.8)
[2024-06-18 05:44] LABS: Blood Urea Nitrogen 18 mg/dl (7-17); Calcium 7.9 mg/dl (8.4-10.2); Carbon Dioxide 28 mmol/L (22-30); Chloride 99 mmol/L (98-107); Estimated Creatinine Clearance 100 ml/min; Glucose 113 mg/dl (70-99); Potassium 4.3 mmol/L (3.5-5.1); Sodium 135 mmol/L (135-145); eGFR > 60.00
--- NOTE | 2024-06-18 07:07 | W.PN.HOSP.TC ---
Addendum entered and electronically signed by Sharmin Khan MD 06/18/24 17:41:
I saw and evaluated the patient independently. I reviewed the resident�s note and agree with findings and plan as documented by Dr. Smith.
GENERAL: well developed, well nourished, female in no apparent distress
HEENT: NC/AT-- O2 requirements
HEART: regular rate and rhythm, +S1, +S2
LUNGS : clear to auscultation bilaterally--decreased breath sounds left lung field--also with pain along left chest wall--no vesicles or skin lesions noted
ABDOM: soft, nontender, nondistended, + bowel sounds--ostomy in place--JODIE drains in place
EXT: no cyanosis, clubbing, edema much improved
NEUROLOGIC: grossly intact
fevers-- ongoing--on Ertapenem (day 17)-- possible sources (infected hematoma, increasing abdominal collections with possible infection, drains placed by IR)--fistulogram per IR without signs of fistula--apprec ID
Acute sigmoid diverticulitis with perforation, s/p shock---apprec colorectal surgery--exp lap with ostomy and JODIE drain (still in place) on 05/24/24 (post op day 24)--Patient tolerating 1800-calorie diabetic diet well
Exudative pleural effusion -- s/p thoracentesis 06/14 with 750 mls drained--check CXR as pt c/o left sided chest pain....recurrent--consulted IR for repeat thoracentesis, 650 ml clear fluid on 06/18/24--will consult pulm for recurrent pleural effusion
Bacteroids distasonis bacteremia with ESBL E. coli positive wound cultures (peritonitis)--positive intraoperative wound cultures with Intermittent fevers--thought to be due to possible Perisplenic hematoma---apprec ID--cont Invanz--day 17
Acute blood loss anemia--s/p 3 units PRBC this admission--JODIE with serosanguineous drainage--follow HGB--transfuse if HGB < 7--HGB drop from 8.3 to 7.3 with increased pleural effusion--not bloody by tap--transfuse pRBC
edema--bilateral LE--weights up (99kg on admission, now down to 96.2Kg 06/17/24)---pt developed contraction alkalosis--stopped diuresis--much improved
TIFFANI --resolved
Hyponatremia--likely volume overload--resolved
Acute transaminitis--likely due to all above-- improved
Type 2 DM--insulin requiring --Hemoglobin A1c of 7.4--apprec DM GUT SORTER assistance
H/o Coarctation of the Aorta--s/p prior aortic stenting--Continue ASA--Monitor blood pressure
HLD--cont statin
DVT Prophylaxis: Heparin subq
deconditioned--due to surgery, chronic arthritis issues, (edema per pt)--PT/OT---plan for SNF, when medically stable
Code Status-- Full Code
Original Note:
Today's Communication/Plan
-
Transfused 1PRBC due to Hb 7.3
CXR showed large left pleural effusion
IR consulted
Continue ertapenem
Assessment / Plan
Assessment / Plan
Assessment
58-year-old female with past medical history significant for hypertension, diabetes mellitus, history of breast cancer, history of endometrial cancer s/p hysterectomy, diverticulitis, coarctation of aorta presented to the ER with abdominal
discomfort and was diagnosed with sigmoid diverticulitis with perforation. She is status post Barbour's procedure, POD day 23.
Impression
Acute sigmoid diverticulitis with perforation s/p exploratory laparotomy and Barbour's procedure
Multifactorial shock
Bacteroides bacteremia
Pleural effusion
Acute blood loss anemia
Hypertension
Sinus tachycardia
TIFFANI
Acute transaminitis
Insulin-dependent diabetes mellitus
Coarctation of aorta
Iatrogenic volume overload
Hypercholesterolemia
Plan
#Acute sigmoid diverticulitis with perforation
Status post exploratory laparotomy/Barbour's procedure�POD# [address] scan in ED showing sigmoid diverticulitis with perforation
Patient underwent elective exploratory laparotomy resection and Caridad procedure
Patient tolerating 1800-calorie diabetic diet well
Stoma productive of stool and flatus
JODIE drains in place, monitor drain output
Midline drain with fecal like drainage- CT with no findings of fistulogram 06/17
#Multifactorial shock
Likely sepsis, hypovolemic
Patient previously requiring postop vasopressor support
Weaned off of pressors
#Bacteroids bacteremia
ESBL ecoli peritonitis
Intraoperative abdominal fluid culture growing ESBL E. coli
Bacteroides isolated preoperatively on blood culture 1 set, repeat negative
On ertapenem (day 17) continue
Blood Cultures-no growth
Continue to follow white count and temperature curve.
ID following
#Pleural effusion
Patient has been having variable intermittent fevers
White count trending down; today 12.7
Interventional radiology drained 750 cc of cloudy yellow pleural fluid on 06/14
Pleural fluid culture-no growth
ID follow-up appreciated
Pain meds ordered as needed
CXR today showed large left pleural effusion
IR consulted for thoracocentesis-pending
# Acute blood loss anemia
s/p 3 units PRBC this admission
monitor CBC
Transfuse if hemoglobin drops below 7
Hb dropped to 7.3 today, patient consent taken/form signed, transfused 1 PRBC
#Hypertension
PMH coartation of aorta with stent
Currently taking 3 blood pressure meds, continue
#Sinus tachycardia
Patient has been consistently tachycardic since admission, running in the high 90s to low 120s
Patient asymptomatic
TSH normal
Continue to follow tachycardia
#TIFFANI
AGAP metabolic acidosis resolved
Hyponatremia
Renal function has normalized
Hyponatremia has resolved
# Acute transaminitis
Resolved
Continue rosuvastatin
Normal LFT
# IDDM
Hemoglobin A1c of 7.4
Patient required insulin gtt. support in ICU
Maintain on and NovoLog with sliding scale
Diabetic nurse practitioner managing
# Coarctation of the Aorta
Systolic murmur heard on exam
s/p prior aortic stenting.
Continue ASA
Monitor blood pressure
#Iatrogenic volume overload
Patient came in 99 kg, up to 107 kg
Will continue to reassess volume status and need for diuresis with weights and clinical exam
Current weight is 95.6
#Hypercholesterolemia
No LFT abnormality on labs
Continue statin
DVT Prophylaxis: Heparin subq
Full code
Anticipated Discharge: 24 - 48 hours
Subjective/Interval History
-
Date of Service: June 18, 2024
Patient continued to have left side pain that she thinks is worse compared to yesterday. She denies any vomiting or nausea.
Objective Data
-
Labs:
Laboratory Results
06/18/24
05:05
WBC 12.2 H
Hgb 7.3 L
Hct 22.7 L
Plt Count 382
Sodium 135
Potassium 4.3
Chloride 99
Carbon Dioxide 28
BUN 18 H
Creatinine 0.7
Glucose 113 H
Calcium 7.9 L
Vital Signs:
Vital Signs
Temp Pulse Resp BP Pulse Ox
99.9 F 72 16 127/60 92
06/17/24 22:50 06/17/24 22:50 06/17/24 22:50 06/17/24 22:50 06/17/24 23:43
I&O
06/17/24 06/18/24 06/19/24
06:59 06:59 06:59
Intake Total 1565 / 1565 2160 / 2160
Output Total 977 / 977 1807 / 1807
Balance 588 / 588 353 / 353
Review of Systems
-
All other systems: Reviewed and negative
Physical Exam
-
General: No Apparent Distress
HEENT: Normocephalic
Respiratory: Clear to Auscultation
Cardiac: Regular Rhythm and S1/S2
GI: Soft
Musculoskeletal: No Clubbing and No Edema
Skin: Warm and Dry
Neuro: Awake, Alert and Oriented
Psych: Calm
--- NOTE | 2024-06-18 07:27 | PN.DE.MGMTRT ---
Insulin Management
- -
06/18/2024: Diabetes Management Follow up:
Patient admitted 05/19 with acute sigmoid diverticulitis with perforation. PMH endometrial CA, breast CA, HTN, HCL, steroid induced diabetes. Prior to admission was taking 19 units NovoLog AC with Mounjaro 2.[address] Cordova
and Omer Ndiaye PA-c at [facility]. Recently was started on Mounjaro and Jardiance and had frequent low blood sugars. She states she could not get an appointment with Omer so she called her primary doctor who told her to stop Lantus and
Jardiance due to hypoglycemia. A1C is 7.4, Cr 1.5, eGFR 39.65. Extubated 05/23, transitioned off of glycemic protocol 05/25.
Patient is awake and A/O x3. Able to discuss diabetes management.
POD# 27, s/p exp lap/Barbour's procedure with diverting colostomy (05/22/2024)
06/10 drain insertion, 06/14, 2nd drain placement. 06/15 thoracentesis-750cc removed, doing well.
06/17 glucose stable 133 to 189, Fasting today 113.
Will make no changes to current regimen: Continue NovoLog 4 units AC with moderate corrective, Farxiga 10 mg daily (at home taking Jardiance 10 mg daily) and Lantus 8 units in AM, with Mounjaro 5 mg weekly on Monday.
Pt states that Jardiance will not be provided to her while in rehab due to cost. She has requested script for Jardiance to be sent to pharmacy so her son can pick it up and have it ready to take to rehab.
Discussed with patient and nurse.
Diabetes History
- -
Type of Diabetes: 2 requiring insulin
Pre-Admission Diabetes Regimen
06/18/24
05:05
Creatinine 0.7
Lab Results
Hemoglobin A1c 7.4 % (4.0-5.6) H 05/20/24 05:23
Insulin Pump Settings
IP Diabetes Regimen
06/17/24 06/17/24 06/17/24
07:43 12:08 17:31
Glucose
POC Glucose 133 H 189 H 183 H
06/17/24 06/18/24
21:35 05:05
Glucose 113 H
POC Glucose 163 H
Meal type: Breakfast
Amount consumed: 100%
Patient Education
[2024-06-18 08:06] LABS: Glucose - Point of Care 117 mg/dl (70-99)
[2024-06-18] MEDS: NOVOLOG FLEXPEN-MODERATE RESISTANCE SC ×3 (08:12→17:16)
[2024-06-18] MEDS: NOVOLOG FLEXPEN 4 UNITS SC ×3 (08:35→17:16)
[2024-06-18] MEDS: PROTONIX 40 MG PO (08:36)
[2024-06-18] MEDS: COLACE 100 MG PO ×2 (08:36→20:25)
[2024-06-18] MEDS: FARXIGA 10 MG PO (08:36)
[2024-06-18] MEDS: NEURONTIN 100 MG PO ×3 (08:36→21:36)
[2024-06-18] MEDS: LANTUS 0.08 UNITS SC (08:36)
[2024-06-18] MEDS: COZAAR 50 MG PO ×2 (08:37→20:25)
[2024-06-18] MEDS: PROCARDIA XL (EXTENDED RELEASE) 30 MG PO ×2 (08:37→20:31)
[2024-06-18] MEDS: LOPRESSOR 100 MG PO ×2 (08:37→20:26)
[2024-06-18] MEDS: DESENEX/MITRAZOL/ZEASORB 1 APPLIC TOPICAL ×2 (08:39→20:26)
--- NOTE | 2024-06-18 09:45 | W.PN.CRS1 ---
Today's Communication / Plan
-
continue abx/await cultures
Assessment/Plan
-
58-year-old female with PMH of recurrent diverticulitis (multiple episodes over the last 25 years), recent UTI on 04/29 seen in the [place] ED, HTN, DM (on Mounjaro), breast cancer s/p resection and chemo, endometrial cancer s/p LETI/BSO,? Aortic
stent who presented with acute abdominal pain, CT concerning for perforated diverticulitis with flecks of free air around the abdomen; patient initially managed nonoperatively as there was no signs of peritonitis or hemodynamic instability; however,
patient did not improve and a repeat CT scan showed worsening pneumoperitoneum with persistent inflammation of the sigmoid colon
POD#27 Caridad's; postop was on pressors and intubated. Off pressors and extubated by POD2
05/27 CT (for bump in WBC) - LUQ collection c/f perisplenic hematoma, expected post-op changes
06/03 US chest with moderate pleural effusion
06/04 CT with stable perisplenic hematoma, no abscess, necrotic omentum noted
06/09 CT with large 14.7cm midline abscess, ?pericolic gutter abscess, perisplenic collection relatively stable in size
06/10- IR drain placement into midline collection (Cx ESBL and Klebsiella)
06/12- 2 units prbcs
06/14- CT with improving midline abscess, fluid in pericolic gutter still present as was perisplenic collection. IR drain to LUQ collection, final Cx pending, prelim with GNB suggestive of infected hematoma
06/15 Thoracentesis for large left pleural effusion, 750ml removed
06/17- IR fistulogram/CT - no fistula noted
Fevers persist, Tmax 100.5.
Leukocytosis 13.7 from 12.1
Tolerating diet, stoma productive of stool/flatus
Old blood from LUQ drain
Pus/serous output in the midline drain
- Continue IR drains x2.
- Wound cultures pending from second IR drain placement, GNB thus far
- Continue diet
� Appreciate WOCN
- Appreciate PT� recommending rehab for discharge, CM following for placement
� Appreciate hospitalist
- Antibiotics per ID, currently on Invanz
- Analgesics: Meloxicam and gabapentin scheduled, tylenol, tramadol, skelaxin and dilaudid prn
-C/W lovenox and SCDs for VTE ppx
Subjective Data
Procedure
05/22/2024- 1) exploratory laparotomy 2) Caridad's resection (sigmoidectomy with rectopexy)
Subjective Data
Date of Service: June 18, 2024
Patient states she has LUQ pain where her drain site is. She has no nausea or vomiting. Her ostomy has function. She is tolerating a diet.
Objective Data
-
Vital Signs
Temp Pulse Resp BP Pulse Ox
99.5 F 103 16 147/82 91
06/18/24 07:40 06/18/24 08:37 06/18/24 07:40 06/18/24 08:37 06/18/24 07:40
Intake & Output
06/17/24 06/18/24 06/19/24
06:59 06:59 06:59
Intake Total 1565 / 1565 2160 / 2160
Output Total 977 / 977 1807 / 1807
Balance 588 / 588 353 / 353
Intake:
Oral fluids 1560 / 1560 2160 / 2160
Amount instilled into Drain (
Total)
Left Upper Abdomen Placed in IR 5 / 5
Output:
Drain Output (Total) 77 / 77 57 / 57
Left Upper Abdomen Placed in IR 50 / 50 30 / 30
Right Abdomen Placed in IR / /
Urine, Voided 900 / 900 1750 / 1750
Other:
How many times incontinent 1
SATURATED amount urine
Lab Results
06/18/24 05:05
06/18/24 05:05
Physical Exam
-
General: No Acute Distress and AOx3
Abdomen: Soft, Non Distended, Non Tender and Other (ostomy warm and pink with function. Right sided drain with car/green output mixed with blood, left sided drain with old blood. )
Incision: Clear, Dry, Intact
[2024-06-18 11:38] LABS: Magnesium 1.9 mg/dl (1.6-2.3)
[2024-06-18 12:06] LABS: Glucose - Point of Care 125 mg/dl (70-99)
[2024-06-18] MEDS: INVANZ 60 MG IV (13:15)
--- NOTE | 2024-06-18 14:08 | W.PN.ID1 ---
Date of Service
Date of Service: June 18, 2024
Today's Communication
Continue antibiotics.
Assessment / Plan
# Fevers
-onset 06/15
# Leukocytosis
- stable today
# Diverticulitis with diverticular perforation
- s/p diverting colostomy (05/22/2024).
- Intra-op splenic capsular tear with infected hematoma
# LUQ infected hematoma
-s/p drain placement (06/14/24) - bloody
- Fluid cx: ESBL E. coli x2
# Anterior abdominal collection/abscess
- s/p drainage (06/10/24)
- Cultures with Klebsiella pneumoniae and ESBL E. coli
# Left pleural effusion
- s/p thoracentesis 750cc cloudy yellow fluid (06/15/24)
- exudative
Hx Bacteroides bacteremia; cleared
HTN
DM
Hx breast CA
Hx endometrial CA
Diverticulitis
Recommendations:
Blood cultures [id number]
Continue with ertapenem.
Continue to follow white count and temperature curve.
����������������������������������������������������������
Chief Complaint
-: Other (Abdominal infection)
Subjective / Review of Systems
Patient seen and examined. Reports ongoing left upper quadrant discomfort secondary to drain.
Vital Signs / Physical Exam
Vital Signs
Vital Signs
Temp Pulse Resp BP Pulse Ox
99.5 F 103 16 147/82 91
06/18/24 07:40 06/18/24 08:37 06/18/24 07:40 06/18/24 08:37 06/18/24 07:40
Physical Exam
Constitutional: No Acute Distress, Comfortable, Chronically Ill and Non-toxic
Eyes: Sclera Anicteric
Cardiovascular: S1/S2; Negative S3/S4
Pulmonary: Non Labored
Gastrointestinal: Soft, Non Tender, Non Distended, Normal Bowel Sounds and Other (Midline incision dry, (+) eschars without surrounding erythema; LUQ JODIE drain bloody output, RLQ JODIE drain- serosanguinous fluid)
Extremities: Edema; Negative Erythema
Skin: Warm and Dry; Negative Rash
Neurological: AO x 3
Lines: PICC (LUE intact)
Objective Data
Lab Data
Lab Results
06/18/24 05:05
06/18/24 05:05
PT 16.1 Sec (11.4-14.6) H 05/22/24 19:57
INR 1.28 05/22/24 19:57
APTT 28.3 Sec (23.4-35.0) 05/22/24 19:57
Estimated Creat Clear 100 ml/min 06/18/24 05:05
Lactic Acid 1.2 mmol/L (0.7-2.0) 05/20/24 22:09
Total Bilirubin 0.5 mg/dl (0.2-1.3) 06/15/24 07:40
AST 35 U/L (14-36) 06/15/24 07:40
ALT 21 U/L (0-35) 06/15/24 07:40
Alkaline Phosphatase 74 U/L (38-126) 06/15/24 07:40
Most recent labs reviewed.
Micro Results:
06/16/24 13:28 Blood Culture - Preliminary
Blood/Venous No Growth in 48 hours- Final report to follow
06/15/24 13:43 Body Fluid Culture - Preliminary
Pleural Fluid No Growth After 48 Hours
Gram Stain - Preliminary
06/14/24 18:10 Body Fluid Culture - Final
Fluid Escherichia coli - ESBL
Escherichia coli - ESBL#2
Gram Stain - Final
06/09/24 10:30 Blood Culture - Final
Blood/Venous No Growth - Final Report
06/09/24 10:29 Blood Culture - Final
Blood/Venous No Growth - Final Report
06/10/24 12:54 Wound Culture - Final
Abdomen Escherichia coli - ESBL
Klebsiella pneumoniae
Gram Stain - Final
06/02/24 12:02 Blood Culture - Final
Blood/Venous No Growth - Final Report
06/02/24 09:36 Blood Culture - Final
Blood/Venous No Growth - Final Report
05/22/24 08:00 Wound Culture - Final
Abdomen Escherichia coli - ESBL
Gram Stain - Final
05/22/24 08:00 Anaerobic Culture - Final
Abdomen
05/19/24 20:48 Blood Culture - Final
Blood/Venous Bacteroides distasonis
Gram Stain - Final
05/21/24 17:56 Blood Culture - Final
Blood/Venous No Growth - Final Report
Imaging:
06/04/2024 CT abdomen/pelvis with contrast: Heterogeneous collection in the left upper quadrant, superior to the spleen and upper stomach. The patient has a history of splenic laceration during splenic flexure takedown, and this most likely
represents a hematoma. Measurements without significant change from examination of May 27, 2024. Although this was not a CT angiography examination, there is no CT evidence to suggest significant active bleeding. There is fluid in the left
paracolic gutter and extending slightly medially in the left lower abdomen adjacent to small bowel loops. This fluid has slightly increased since examination May 27, 2024. There is a drainage catheter with its tip is in the inferior aspect of
this fluid collection. There is an unusual ovoid fat, fluid, and air density in the midline abdomen posterior to the abdominal wall. This is felt to likely represent necrotic omentum, and superimposed infection cannot be excluded. There is no
evidence of a drainable collection at this time. Moderate subcutaneous edema. This is slightly improved from examination of May 27, 2024.
05/27/2024 CT abdomen/pelvis with contrast: There is 7 x 8 x 3 cm intermediate density heterogeneous left subdiaphragmatic fluid collection containing a small amount of extraluminal gas. Differential diagnosis for this collection includes hematoma
and abscess. Sigmoidectomy with left lower quadrant colostomy. Moderate ascites including areas of loculated fluid in the abdomen and pelvis. Small left pleural effusion with compressive atelectasis at the posterior left lung base. Please see
full dictation for additional detail.
--- NOTE | 2024-06-18 15:17 | CM ---
Patient seen at bedside with physician and residents. Patient plan for discharge continues to be SNF;[facility] and will need a prior authorization pending bed availability. Patient for further testing today. Patient has been declining therapy due
to pain. CM will continue to follow for discharge planning needs.
Plan; SNF; pending availability with auth.
[2024-06-18] MEDS: ULTRAM 50 MG PO (16:26)
[2024-06-18] MEDS: CRESTOR 30 MG PO (17:01)
[2024-06-18] MEDS: LOVENOX 40 MG SC (17:02)
[2024-06-18 17:10] LABS: Glucose - Point of Care 133 mg/dl (70-99)
[2024-06-18] MEDS: TYLENOL 650 MG PO (20:25)
[2024-06-18 21:38] LABS: Glucose - Point of Care 138 mg/dl (70-99)
[2024-06-19] VITALS (7 sets, daily range): BP systolic 119–174; BP diastolic 66–89; PULSE 93; O2SAT 95–96; BMI 34.1
[2024-06-19 06:32] LABS: % Basophils 0.3 % (0-2); % Eosinophils 2.1 % (0-6); % Immature Granulocytes 0.8 % (0-0.5); % Lymphocytes 14.5 % (20.5-51.1); % Monocytes 9.1 % (1.7-9.3); % Neutrophils 73.2 % (42.2-75.2); Absolute Eosinophils 0.2 10^3/uL (0-0.7); Absolute Immature Granulocytes 0.1 10^3/uL (0-0.05); Absolute Lymphocytes 1.3 10^3/uL (1.2-3.4); Absolute Monocytes 0.8 10^3/uL (0.1-0.6); Absolute Neutrophils 6.5 10^3/uL (1.4-6.5); Hematocrit 25.2 % (37.0-47.0); Hemoglobin 8.4 g/dL (12.0-16.0); Mean Corp Hgb Conc. 33.3 g/dL (33.0-37.0); Mean Corpuscular Hgb 28.5 pg (27.0-31.0); Mean Corpuscular Volume 85.4 fL (81.0-99.0); Mean Platelet Volume 10.8 fL (7.4-10.4); Nucleated Red Blood Cells % 0 %; Platelet Count 345 10^3/uL (130-400); Red Blood Cell Count 2.95 10^6/uL (4.20-5.40); Red Cell Dist. Width 15.5 % (11.5-14.5); White Blood Cell Count 8.9 10^3/uL (4.8-10.8)
[2024-06-19 06:51] LABS: Blood Urea Nitrogen 17 mg/dl (7-17); Calcium 8.1 mg/dl (8.4-10.2); Carbon Dioxide 25 mmol/L (22-30); Chloride 102 mmol/L (98-107); Estimated Creatinine Clearance 100 ml/min; Glucose 113 mg/dl (70-99); Potassium 3.9 mmol/L (3.5-5.1); Sodium 139 mmol/L (135-145); eGFR > 60.00
--- NOTE | 2024-06-19 07:07 | PN.DE.MGMTRT ---
Insulin Management
- -
06/19/2024: Diabetes Management Follow up:
Patient admitted 05/19 with acute sigmoid diverticulitis with perforation. PMH endometrial CA, breast CA, HTN, HCL, steroid induced diabetes. Prior to admission was taking 19 units NovoLog AC with Mounjaro 2.[address] weekly[address] Cordova
and Omer Ndiaye PA-c at [facility]. Recently was started on Mounjaro and Jardiance and had frequent low blood sugars. She states she could not get an appointment with Omer so she called her primary doctor who told her to stop Lantus and
Jardiance due to hypoglycemia. A1C is 7.4, Cr 1.5, eGFR 39.65. Extubated 05/23, transitioned off of glycemic protocol 05/25.
Patient is awake and A/O x3, oob in chair. Able to discuss diabetes management. Son at bedside.
POD# 28, s/p exp lap/Barbour's procedure with diverting colostomy (05/22/2024)
06/10 drain insertion, 06/14, 2nd drain placement. 06/15 thoracentesis-750cc removed, second thoracentesis - 650 removed 06/18, doing well.
06/18 glucose stable 113 to 138, Fasting today 113.
Will make no changes to current regimen: Continue NovoLog 4 units AC with moderate corrective, Farxiga 10 mg daily (at home taking Jardiance 10 mg daily) and Lantus 8 units in AM, with Mounjaro 5 mg weekly on Monday.
Pt states that Jardiance will not be provided to her while in rehab due to cost. She has requested script for Jardiance to be sent to pharmacy so her son can pick it up and have it ready to take to rehab.
Discussed with patient and nurse.
Diabetes History
- -
Type of Diabetes: 2 requiring insulin
Pre-Admission Diabetes Regimen
06/19/24
06:08
Creatinine 0.7
Lab Results
Hemoglobin A1c 7.4 % (4.0-5.6) H 05/20/24 05:23
Insulin Pump Settings
IP Diabetes Regimen
06/18/24 06/18/24 06/18/24
08:05 12:05 17:08
Glucose
POC Glucose 117 H 125 H 133 H
06/18/24 06/19/24
21:37 06:08
Glucose 113 H
POC Glucose 138 H
Meal type: Lunch
Meal type: Breakfast
Amount consumed: 50%
Amount consumed: 100%
Patient Education
--- NOTE | 2024-06-19 07:34 | W.PN.HOSP.TC ---
Addendum entered and electronically signed by Sharmin Khan MD 06/19/24 18:26:
I saw and evaluated the patient independently. I reviewed the resident�s note and agree with findings and plan as documented by Dr. Smith.
GENERAL: well developed, well nourished,obese female in no apparent distress
HEENT: NC/AT-- O2 requirements
HEART: regular rate and rhythm, +S1, +S2
LUNGS : clear to auscultation bilaterally--decreased breath sounds left lung field--also with pain along left chest wall--no vesicles or skin lesions noted
ABDOM: soft, nontender, nondistended, + bowel sounds--ostomy in place--JODIE drains in place
EXT: no cyanosis, clubbing, edema much improved
NEUROLOGIC: grossly intact
fevers-- ongoing--on Ertapenem (day 18)-- possible sources (drain placement 06/14/24 shows fluid culture revealing ESBL E. coli x 2)--fistulogram per IR without signs of fistula--apprec ID
Acute sigmoid diverticulitis with perforation, s/p shock---apprec colorectal surgery--exp lap with ostomy and JODIE drain (still in place) on 05/24/24 (post op day 25)--Patient tolerating 1800-calorie diabetic diet well
Exudative pleural effusion -- s/p thoracentesis 06/14 with 750 mls drained--check CXR as pt c/o left sided chest pain....recurrent--consulted IR for repeat thoracentesis, 650 ml clear fluid on 06/18/24--apprec pulm--if recurs a third time might need
chest tube--fluid appears exudative
Bacteroids distasonis bacteremia with ESBL E. coli positive wound cultures (peritonitis)--positive intraoperative wound cultures with Intermittent fevers--thought to be due to possible Perisplenic hematoma---apprec ID--cont Invanz--day 18
Acute blood loss anemia--s/p 3 units PRBC this admission--JODIE with serosanguineous drainage--follow HGB--transfuse if HGB < 7--HGB drop from 8.3 to 7.3 with increased pleural effusion--not bloody by tap--transfuse pRBC--HGB up to 8.4
edema--bilateral LE--weights up (99kg on admission, down to 96.2Kg 06/17/24)---pt developed contraction alkalosis--stopped diuresis--much improved
TIFFANI --resolved
Hyponatremia--likely volume overload--resolved
Acute transaminitis--likely due to all above-- improved
Type 2 DM--insulin requiring --Hemoglobin A1c of 7.4--apprec DM ETCHER ENAMELING assistance
H/o Coarctation of the Aorta--s/p prior aortic stenting--Continue ASA--Monitor blood pressure
HLD--cont statin
Sacral Pressure Wound Stage 3--most likely due to pressure/position (pt does not really seem motivated to move)--apprec wound care
DVT Prophylaxis: Heparin subq
deconditioned--due to surgery, chronic arthritis issues, (edema per pt)--PT/OT---plan for SNF, when medically stable
Code Status-- Full Code
Original Note:
Today's Communication/Plan
-
Continue ertapenem as per ID
Continue PT/OT
Assessment / Plan
Assessment / Plan
Assessment
58-year-old female with past medical history significant for hypertension, diabetes mellitus, history of breast cancer, history of endometrial cancer s/p hysterectomy, diverticulitis, coarctation of aorta presented to the ER with abdominal
discomfort and was diagnosed with sigmoid diverticulitis with perforation. She is status post Barbour's procedure.
Impression
Acute sigmoid diverticulitis with perforation s/p exploratory laparotomy and Barbour's procedure
Multifactorial shock
Bacteroides bacteremia
Pleural effusion
Acute blood loss anemia
Hypertension
Sinus tachycardia
TIFFANI
Acute transaminitis
Insulin-dependent diabetes mellitus
Coarctation of aorta
Iatrogenic volume overload
Hypercholesterolemia
Plan
#Acute sigmoid diverticulitis with perforation
Status post exploratory laparotomy/Barbour's procedure�POD# [address] scan in ED showing sigmoid diverticulitis with perforation
Patient underwent elective exploratory laparotomy resection and Caridad procedure
Patient tolerating 1800-calorie diabetic diet well
Stoma productive of stool and flatus
JODIE drains in place, monitor drain output
Midline drain with fecal like drainage- CT with no findings of fistulogram 06/17
Continue with PT/OT post op
#Multifactorial shock
Likely sepsis, hypovolemic
Patient previously requiring postop vasopressor support
Weaned off of pressors
#Bacteroids bacteremia
ESBL ecoli peritonitis
Intraoperative abdominal fluid culture growing ESBL E. coli
Bacteroides isolated preoperatively on blood culture 1 set, repeat negative
On ertapenem (day 18) continue as per ID
Blood Cultures-no growth 06/16
Continue to follow white count and temperature curve.
ID following
#Pleural effusion
Afebrile today (patient has been having variable intermittent fevers
White count trending down; today 8.9
Interventional radiology drained 750 cc of cloudy yellow pleural fluid on 06/14
Pleural fluid culture-no growth
ID follow-up appreciated
Pain meds ordered as needed
CXR 06/18 showed large left pleural effusion
IR drained 650 cc of clear yellow fluid on 06/18
Pulm consult pending
# Acute blood loss anemia
s/p 4 units PRBC this admission at present
Hb dropped to 7.3 from 8.3, transfused 1 PRBC on 06/18
Hb stable today
monitor CBC
Transfuse if hemoglobin drops below 7
#Hypertension
PMH coartation of aorta with stent
Currently taking 3 blood pressure meds, continue
#Sinus tachycardia
Patient has been consistently tachycardic since admission, running in the high 90s to low 120s
Patient asymptomatic
TSH normal
Continue to follow tachycardia
#Sacral Pressure Wound Stage 3
-most likely due to pressure/position
-Wound care following
#TIFFANI
AGAP metabolic acidosis resolved
Hyponatremia
Renal function has normalized
Hyponatremia has resolved
# Acute transaminitis
Resolved
Continue rosuvastatin
Normal LFT
# IDDM
Hemoglobin A1c of 7.4
Maintain on NovoLog 4 units and Lantus with 8 units with sliding scale, continue farxiga
Diabetic nurse practitioner managing
# Coarctation of the Aorta
Systolic murmur heard on exam
s/p prior aortic stenting.
Continue ASA
Monitor blood pressure
#Iatrogenic volume overload
Patient came in 99 kg, up to 107 kg
Will continue to reassess volume status and need for diuresis with weights and clinical exam
Current weight is 95.6
#Hypercholesterolemia
No LFT abnormality on labs
Continue statin
DVT Prophylaxis: Lovenox
Full code
Anticipated Discharge: 24 - 48 hours
Subjective/Interval History
-
Date of Service: June 19, 2024
Patient feels that her left sided pain is somewhat the same as yesterday. She denies any nausea or abdominal pain.
Objective Data
-
Labs:
Laboratory Results
06/19/24
06:08
WBC 8.9
Hgb 8.4 L
Hct 25.2 L
Plt Count 345
Sodium 139
Potassium 3.9
Chloride 102
Carbon Dioxide 25
BUN 17
Creatinine 0.7
Glucose 113 H
Calcium 8.1 L
Vital Signs:
Vital Signs
Temp Pulse Resp BP Pulse Ox
98.5 F 88 18 150/66 93
06/19/24 02:50 06/19/24 02:50 06/19/24 02:50 06/19/24 02:50 06/19/24 02:50
I&O
06/18/24 06/19/24 06/20/24
06:59 06:59 06:59
Intake Total 2160 / 2160 1250 / 1250
Output Total 1807 / 1807 55 / 55
Balance 353 / 353 1195 / 1195
Review of Systems
-
All other systems: Reviewed and negative
Physical Exam
-
General: No Apparent Distress
HEENT: Normocephalic
Respiratory: Clear to Auscultation
Cardiac: Regular Rhythm and S1/S2
GI: Soft
Musculoskeletal: No Cyanosis and No Edema
Skin: Warm and Dry
Neuro: Awake, Alert and Oriented
Psych: Calm
[2024-06-19 07:44] LABS: Glucose - Point of Care 126 mg/dl (70-99)
[2024-06-19 08:01] LABS: Magnesium 1.9 mg/dl (1.6-2.3)
[2024-06-19] MEDS: NOVOLOG FLEXPEN-MODERATE RESISTANCE SC ×2 (09:28→17:20)
[2024-06-19] MEDS: NOVOLOG FLEXPEN 4 UNITS SC ×3 (09:29→17:21)
[2024-06-19] MEDS: COLACE 100 MG PO ×2 (09:29→20:13)
[2024-06-19] MEDS: FARXIGA 10 MG PO (09:29)
[2024-06-19] MEDS: PROTONIX 40 MG PO (09:29)
[2024-06-19] MEDS: COZAAR 50 MG PO ×2 (09:30→20:14)
[2024-06-19] MEDS: NEURONTIN 100 MG PO ×3 (09:30→21:14)
[2024-06-19] MEDS: PROCARDIA XL (EXTENDED RELEASE) 30 MG PO ×2 (09:30→20:14)
[2024-06-19] MEDS: LANTUS 0.08 UNITS SC (09:31)
[2024-06-19] MEDS: LOPRESSOR 100 MG PO ×2 (09:31→20:14)
[2024-06-19] MEDS: DESENEX/MITRAZOL/ZEASORB 1 APPLIC TOPICAL ×2 (09:32→20:13)
[2024-06-19] MEDS: ULTRAM 50 MG PO ×2 (09:35→22:01)
--- NOTE | 2024-06-19 10:28 | W.PN.CRS1 ---
Today's Communication / Plan
-
antibiotics
Assessment/Plan
-
58-year-old female with PMH of recurrent diverticulitis (multiple episodes over the last 25 years), recent UTI on 04/29 seen in the [place] ED, HTN, DM (on Mounjaro), breast cancer s/p resection and chemo, endometrial cancer s/p LETI/BSO,? Aortic
stent who presented with acute abdominal pain, CT concerning for perforated diverticulitis with flecks of free air around the abdomen; patient initially managed nonoperatively as there was no signs of peritonitis or hemodynamic instability; however,
patient did not improve and a repeat CT scan showed worsening pneumoperitoneum with persistent inflammation of the sigmoid colon
POD#27 Caridad's; postop was on pressors and intubated. Off pressors and extubated by POD2
05/27 CT (for bump in WBC) - LUQ collection c/f perisplenic hematoma, expected post-op changes
06/03 US chest with moderate pleural effusion
06/04 CT with stable perisplenic hematoma, no abscess, necrotic omentum noted
06/09 CT with large 14.7cm midline abscess, ?pericolic gutter abscess, perisplenic collection relatively stable in size
06/10- IR drain placement into midline collection (Cx ESBL and Klebsiella)
06/12- 2 units prbcs
06/14- CT with improving midline abscess, fluid in pericolic gutter still present as was perisplenic collection. IR drain to LUQ collection, final Cx pending, prelim with GNB suggestive of infected hematoma
06/15 Thoracentesis for large left pleural effusion, 750ml removed
06/17- IR fistulogram/CT - no fistula noted
06/18- thoracocentesis
Fevers persist, Tmax 101.2
WBC normalized 8.9 from 12.2.
Tolerating diet, stoma productive of stool/flatus
Old blood from LUQ drain
Pus/serous output in the midline drain
- Continue IR drains x2.
- Wound cultures pending from second IR drain placement, GNB thus far
- Continue diet
� Appreciate WOCN
- Appreciate PT� recommending rehab for discharge, CM following for placement
� Appreciate hospitalist
- Antibiotics per ID, currently on Invanz
- Analgesics: Meloxicam and gabapentin scheduled, tylenol, tramadol, skelaxin and dilaudid prn
-C/W lovenox and SCDs for VTE ppx
Subjective Data
Procedure
05/22/2024- 1) exploratory laparotomy 2) Caridad's resection (sigmoidectomy with rectopexy)
Subjective Data
Date of Service: June 19, 2024
Patient is sleeping but her son says she has no issues overnight. She has been tolerating a diet and her stoma has function.
Objective Data
-
Vital Signs
Temp Pulse Resp BP Pulse Ox
98.4 F 99 17 153/82 96
06/19/24 07:55 06/19/24 09:31 06/19/24 07:55 06/19/24 09:31 06/19/24 07:55
Intake & Output
06/18/24 06/19/24 06/20/24
06:59 06:59 06:59
Intake Total 2160 / 2160 1250 / 1250
Output Total 1807 / 1807
Balance 353 / 353 1195 / 1195
Intake:
Oral fluids 2160 / 2160 1000 / 1000
Blood Product Amount Infused ( 250 / 250
mL)
Packed Rbc Leukoreduced Unit 250 / 250
[id number]
Output:
Drain Output (Total) 57 / 57 55 / 55
Left Upper Abdomen Placed in IR 30 / 30
Right Abdomen Placed in IR
Urine, Voided 1750 / 1750
Other:
Number of approximated MODERATE 3
amounts of urine
How many times incontinent 1
MODERATE amount urine
How many times incontinent 2
SATURATED amount urine
Lab Results
06/19/24 06:08
06/19/24 06:08
Physical Exam
-
General: No Acute Distress and AOx3
Abdomen: Soft, Non Distended, Non Tender and Other (ostomy warm and pink with function)
Skin: Warm and Dry
Incision: Clear, Dry, Intact
--- NOTE | 2024-06-19 11:04 | W.PN.PUL3 ---
Today's Communication / Plan
-
s/p thora x 2, fluid studies reviewed and suggests parapneumonic fluid
Continue IV abx
Encouraged IS, add airway clearance including acapella/nebs
Encouraged OOB/PT/OT
Further postop care per team
Assessment
-
58-year-old woman with past medical history significant for diverticular disease, hypertension, type 2 diabetes who presented to the emergency room complaining of abdominal pain. CT abdomen pelvis performed demonstrated diverticulitis with concern
for perforation. She was followed for 24th for 48 hours on antibiotics, repeat CT showed worsening intraperitoneal air s/p operating room for exploratory laparotomy. She underwent exploratory laparotomy, Barbour's resection on 05/22/2024.
Subsequently in the ICU, intubated, sedated from mechanical ventilation. Transferred to floor 05/25.
We are asked for re-eval for recurrent pleural effusions 06/19/24.
Recurrent pleural effusion s/p thora x 2
Acute abdomen: Acute diverticulitis with bowel perforation
CT abdomen pelvis reviewed: Perforated diverticula with intraperitoneal air.
Status post exploratory laparotomy 05/22/2024: Barbour's resection.
Postoperative mechanical ventilation
Extubated 05/23/2024
Septic shock
Acute kidney injury metabolic acidosis
Anion gap metabolic acidosis
Hyperglycemia postoperative anemia due to blood loss/acute
Conditions present prior admission:
Type 2 diabetes
Hypertension
Obesity
History of coarctation of the aorta
Breast cancer status postmastectomy and chemotherapy
Uterine cancer status post hysterectomy
Diverticular disease
Status post breast reconstruction
History of
Aortic stent placement
Cataracts
Plan
Events from ICU reviewed, transferred to floors 05/25
Extubated 05/23/2024, currently stable on RA
Has not noticed worsening SOB
Recurrent pleural effusion s/p thora x 2
Fluid studies reviewed: Pleural fluid 06/15/24: pH 7.41 - TP 3.8 - LDH 386 - Culture neg - Cyto pending
Serum TP 5.6, LDH 300
Results are mostly indicating exudative fluid, likely parapneumonic tho culture negative since being on abx
We discussed role of intervention if fluid continues to re-accumulate
Imaging reviewed, small area of effusion with compressive atelectasis
Reviewed her best IS effort, <500
Encouraged more effort, deep breathing
Will add acapella and nebs
Airway clearance
Status post exploratory laparotomy for acute diverticulitis with perforation
Surgical correspondence/operative reports reviewed
Ostomy care
Follow drain output
Septic shock/metabolic acidosis-resolved.
Maintained on IV ertapenem
Needs OOB/Ambulation/PT
Physical therapy/Occupational Therapy consults
DVT prophylaxis with SCDs/heparin subcu
Reviewed case with son extensively at bedside
Diagnostic Data
CXR 06/18/24- 1. Improved left pleural effusion following thoracentesis.
2. No pneumothorax.
CT AP 06/17/24- LOWER CHEST: Large left pleural effusion with adjacent atelectasis, only partially visualized. Partially visualized bilateral breast implants. Trace pericardial fluid is noted.. Right lung bases clear.
Lower abdominal drainage catheter is in satisfactory positioning within the anterior peritoneal cavity. There is no overt fluid collection within the anterior peritoneal cavity, but rather strandy fluid with gas foci. This is relatively unchanged
compared to the recent CT. Contrast administered through this catheter prior to CT acquisition surrounds the pigtail catheter, but does not extend into the bowel lumen. Findings are consistent with no bowel fistula.
Left upper quadrant drainage catheter is in satisfactory position within a left upper quadrant fluid collection. Interval diminution in size of the left upper quadrant fluid collection now measuring 8.8 x 8.8 cm compared to 10.4 x 9.5 cm previously.
ECHO 12/20/21- Normal left ventricular size and systolic function. No regional wall motion abnormalities are seen. LV ejection fraction is 60-65%. Mild concentric left ventricular hypertrophy. Mild mitral regurgitation. Aortic coarctation stent
history with peak/mean gradients 22/10mmHg. No prior study available for comparison.
-----
Total time spent on this encounter __56__ includes review of history, physical exam, medications, laboratory data, personal review of imaging, extensive review of outpatient records, discussion with care team and respiratory therapy.
Subjective Data
-
Date of Service:
Date of Service: June 19, 2024
Chief Complaint: Pulmonary Follow Up
Subjective:
Asked to re-see, signed off as deburrer 05/25
Stable on RA but effusions are noted with recurrences and thora
Maintained on IV abx for GI source
Son at bedside
Poor IS effort <500
Objective Data
Data Reviewed
Vital Signs / I&O / Oxygen:
Vital Signs
Temp Pulse Resp BP Pulse Ox
98.4 F 99 17 153/82 96
06/19/24 07:55 06/19/24 09:31 06/19/24 07:55 06/19/24 09:31 06/19/24 07:55
Intake and Output
06/18/24 06/19/24 06/20/24
06:59 06:59 06:59
Intake Total 2160 / 2160 1250 / 1250
Output Total 1807 / 1807 55 / 55
Balance 353 / 353 1195 / 1195
SaO2 [A/C] 97
SaO2 96
Nasal Cannula flow liters per 2
minute
Physical Exam
General: Comfortable and Other (NAD)
HEENT: Normocephalic, Anicteric and Moist Mucous Membranes
Cardiovascular: S1-S2 and Regular Rhythm
Respiratory: Clear (overall diminished) and Non-Labored Respirations
GI: Soft, Non Distended, Non Tender and Other (ostomy in place)
Neurology: Awake, Alert, Oriented, AO x 3 and No Motor Deficits
Skin: Warm, Dry and Good Color
Labs/Micro/Reports
Lab Data
06/19/24 06:08
06/19/24 06:08
Microbiology
06/15/24 13:43 Pleural Fluid Body Fluid Culture - Final
No Growth After 72 Hours
06/15/24 13:43 Pleural Fluid Gram Stain - Final
06/16/24 13:28 Blood/Venous Blood Culture - Preliminary
No Growth in 48 hours- Final report to follow
06/14/24 18:10 Fluid Body Fluid Culture - Final
Escherichia coli - ESBL
Escherichia coli - ESBL#2
06/14/24 18:10 Fluid Gram Stain - Final
[2024-06-19] MEDS: TYLENOL 650 MG PO ×2 (11:29→19:48)
[2024-06-19] MEDS: INVANZ 60 MG IV (13:00)
--- NOTE | 2024-06-19 14:06 | CM ---
Patient seen at bedside with patient son and physician/residents. Physician and CM encouraged patient to participate with therapy and move around as much as possible. CM will continue to follow for discharge planning needs.
Plan; [facility] [facility] when medically appropriate
[2024-06-19 14:31] LABS: Glucose - Point of Care 150 mg/dl (70-99)
--- NOTE | 2024-06-19 14:35 | W.PN.ID1 ---
Date of Service
Date of Service: June 19, 2024
Today's Communication
Continue antibiotics.
Assessment / Plan
# Fevers
- onset 06/15
- temp curve trending down.
# Leukocytosis
- improved
# Diverticulitis with diverticular perforation
- s/p diverting colostomy (05/22/2024).
- Intra-op splenic capsular tear with infected hematoma
# LUQ infected hematoma
-s/p drain placement (06/14/24) - bloody
- Fluid cx: ESBL E. coli x2
# Anterior abdominal collection/abscess
- s/p drainage (06/10/24)
- Cultures with Klebsiella pneumoniae and ESBL E. coli
# Left pleural effusion
- s/p thoracentesis 750cc cloudy yellow fluid (06/15/24)
- exudative
Hx Bacteroides bacteremia; cleared
HTN
DM
Hx breast CA
Hx endometrial CA
Diverticulitis
Recommendations:
Blood cultures [id number]
Continue with ertapenem.
Continue to follow white count and temperature curve.
����������������������������������������������������������
Chief Complaint
-: Other (Abdominal infection)
Subjective / Review of Systems
Patient seen and examined. Offers no specific complaints today.
Vital Signs / Physical Exam
Vital Signs
Vital Signs
Temp Pulse Resp BP Pulse Ox
98.4 F 99 17 153/82 96
06/19/24 07:55 06/19/24 09:31 06/19/24 07:55 06/19/24 09:31 06/19/24 07:55
Physical Exam
Constitutional: No Acute Distress, Comfortable, Chronically Ill and Non-toxic
Eyes: Sclera Anicteric
Cardiovascular: S1/S2; Negative S3/S4
Pulmonary: Non Labored
Gastrointestinal: Soft, Non Tender, Non Distended, Normal Bowel Sounds and Other (Midline incision dry, (+) eschars without surrounding erythema; LUQ JODIE drain bloody output, RLQ JODIE drain- serosanguinous fluid)
Extremities: Edema; Negative Erythema
Skin: Warm and Dry; Negative Rash
Neurological: AO x 3
Lines: PICC (LUE intact)
Objective Data
Lab Data
Lab Results
06/19/24 06:08
06/19/24 06:08
PT 16.1 Sec (11.4-14.6) H 05/22/24 19:57
INR 1.28 05/22/24 19:57
APTT 28.3 Sec (23.4-35.0) 05/22/24 19:57
Estimated Creat Clear 100 ml/min 06/19/24 06:08
Lactic Acid 1.2 mmol/L (0.7-2.0) 05/20/24 22:09
Total Bilirubin 0.5 mg/dl (0.2-1.3) 06/15/24 07:40
AST 35 U/L (14-36) 06/15/24 07:40
ALT 21 U/L (0-35) 06/15/24 07:40
Alkaline Phosphatase 74 U/L (38-126) 06/15/24 07:40
Most recent labs reviewed.
Micro Results:
06/16/24 13:28 Blood Culture - Preliminary
Blood/Venous No Growth in 72 hours- Final report to follow
06/15/24 13:43 Body Fluid Culture - Final
Pleural Fluid No Growth After 72 Hours
Gram Stain - Final
06/14/24 18:10 Body Fluid Culture - Final
Fluid Escherichia coli - ESBL
Escherichia coli - ESBL#2
Gram Stain - Final
06/09/24 10:30 Blood Culture - Final
Blood/Venous No Growth - Final Report
06/09/24 10:29 Blood Culture - Final
Blood/Venous No Growth - Final Report
06/10/24 12:54 Wound Culture - Final
Abdomen Escherichia coli - ESBL
Klebsiella pneumoniae
Gram Stain - Final
06/02/24 12:02 Blood Culture - Final
Blood/Venous No Growth - Final Report
06/02/24 09:36 Blood Culture - Final
Blood/Venous No Growth - Final Report
05/22/24 08:00 Wound Culture - Final
Abdomen Escherichia coli - ESBL
Gram Stain - Final
05/22/24 08:00 Anaerobic Culture - Final
Abdomen
05/19/24 20:48 Blood Culture - Final
Blood/Venous Bacteroides distasonis
Gram Stain - Final
05/21/24 17:56 Blood Culture - Final
Blood/Venous No Growth - Final Report
Imaging:
06/04/2024 CT abdomen/pelvis with contrast: Heterogeneous collection in the left upper quadrant, superior to the spleen and upper stomach. The patient has a history of splenic laceration during splenic flexure takedown, and this most likely
represents a hematoma. Measurements without significant change from examination of May 27, 2024. Although this was not a CT angiography examination, there is no CT evidence to suggest significant active bleeding. There is fluid in the left
paracolic gutter and extending slightly medially in the left lower abdomen adjacent to small bowel loops. This fluid has slightly increased since examination May 27, 2024. There is a drainage catheter with its tip is in the inferior aspect of
this fluid collection. There is an unusual ovoid fat, fluid, and air density in the midline abdomen posterior to the abdominal wall. This is felt to likely represent necrotic omentum, and superimposed infection cannot be excluded. There is no
evidence of a drainable collection at this time. Moderate subcutaneous edema. This is slightly improved from examination of May 27, 2024.
05/27/2024 CT abdomen/pelvis with contrast: There is 7 x 8 x 3 cm intermediate density heterogeneous left subdiaphragmatic fluid collection containing a small amount of extraluminal gas. Differential diagnosis for this collection includes hematoma
and abscess. Sigmoidectomy with left lower quadrant colostomy. Moderate ascites including areas of loculated fluid in the abdomen and pelvis. Small left pleural effusion with compressive atelectasis at the posterior left lung base. Please see
full dictation for additional detail.
Care Review
Plan reviewed with: Physician (Hospitalist)
--- NOTE | 2024-06-19 14:40 | PN.CDI ---
CDI
- -
CDI:
Physician Documentation Request
Admit Date: 05/20/24 01:02
Dear Doctor,
Please review the following and provide your response in the progress notes.
Clinical Indicators:
- 06/13 Wound note indicates Stage 3 sacrum pressure injury
Physician documentation of the type and location of wounds is required for compliant documentation. Based on the above clinical findings and your assessment, please provide the following in your progress note:
1. Location of the ulcer/wound, including laterality.
2. Type (etiology) of ulcer/wound:
- Diabetic ulcer
- Arterial (ischemic) ulcer
- Traumatic wound
- Venous stasis ulcer
- Pressure (decubitus) ulcer
- Non-healing surgical wound
- Other
- Unable to determine
Use of terms such as suspected, likely, concern for, or probable (associated with a specific diagnosis that is being evaluated, monitored, or treated as if it exists) are acceptable and can be coded in the inpatient setting, when documented at the
time of discharge.
Thank you,
Shaniqua Traore RN
CDI Specialist
Please use your independent medical judgment in providing your response.
*Source: National Pressure Ulcer Advisory Panel (NPUAP)
[2024-06-19] MEDS: NON-FORMULARY ITEM 1 UNIT SC (14:45)
[2024-06-19] MEDS: NOVOLOG FLEXPEN-MODERATE RESISTANCE 1 UNITS SC (14:45)
[2024-06-19] MEDS: LOVENOX 40 MG SC (17:02)
[2024-06-19] MEDS: CRESTOR 30 MG PO (17:02)
[2024-06-19 17:21] LABS: Glucose - Point of Care 101 mg/dl (70-99)
[2024-06-19] MEDS: VENTOLIN NEBULES 2.5 MG INH (20:59)
[2024-06-19 21:51] LABS: Glucose - Point of Care 87 mg/dl (70-99)
[2024-06-20] MEDS: TYLENOL 650 MG PO ×2 (03:57→16:53)
[2024-06-20 05:37] LABS: % Basophils 0.4 % (0-2); % Eosinophils 1.7 % (0-6); % Immature Granulocytes 0.8 % (0-0.5); % Monocytes 8.3 % (1.7-9.3); % Neutrophils 74.8 % (42.2-75.2); Absolute Eosinophils 0.2 10^3/uL (0-0.7); Absolute Immature Granulocytes 0.1 10^3/uL (0-0.05); Absolute Lymphocytes 1.4 10^3/uL (1.2-3.4); Absolute Monocytes 0.8 10^3/uL (0.1-0.6); Absolute Neutrophils 7.5 10^3/uL (1.4-6.5); Hematocrit 26.3 % (37.0-47.0); Hemoglobin 8.6 g/dL (12.0-16.0); Mean Corp Hgb Conc. 32.7 g/dL (33.0-37.0); Mean Corpuscular Hgb 27.4 pg (27.0-31.0); Mean Corpuscular Volume 83.8 fL (81.0-99.0); Mean Platelet Volume 10.8 fL (7.4-10.4); Nucleated Red Blood Cells % 0 %; Platelet Count 431 10^3/uL (130-400); Red Blood Cell Count 3.14 10^6/uL (4.20-5.40); Red Cell Dist. Width 15.9 % (11.5-14.5)
[2024-06-20 05:59] LABS: Blood Urea Nitrogen 13 mg/dl (7-17); Carbon Dioxide 28 mmol/L (22-30); Chloride 102 mmol/L (98-107); Estimated Creatinine Clearance 116 ml/min; Glucose 97 mg/dl (70-99); Magnesium 1.9 mg/dl (1.6-2.3); Potassium 3.9 mmol/L (3.5-5.1); Sodium 140 mmol/L (135-145); eGFR > 60.00
--- NOTE | 2024-06-20 07:06 | W.PN.HOSP.TC ---
Addendum entered and electronically signed by Sharmin Khan MD 06/20/24 13:16:
I saw and evaluated the patient independently. I reviewed the resident�s note and agree with findings and plan as documented by Dr. Smith.
GENERAL: well developed, well nourished, obese female in no apparent distress
HEENT: NC/AT-- O2 requirements
HEART: regular rate and rhythm, +S1, +S2
LUNGS : clear to auscultation bilaterally--decreased breath sounds left lung field--also with pain along left chest wall--no vesicles or skin lesions noted
ABDOM: soft, nontender, nondistended, + bowel sounds--ostomy in place--JODIE drains in place
EXT: no cyanosis, clubbing, edema much improved
NEUROLOGIC: grossly intact
fevers-- ongoing--on Ertapenem (day 19)-- possible sources (drain placement 06/14/24 shows fluid culture revealing ESBL E. coli x 2)--fistulogram per IR without signs of fistula--apprec ID
Acute sigmoid diverticulitis with perforation, s/p shock---apprec colorectal surgery--exp lap with ostomy and JODIE drain (still in place) on 05/24/24 (post op day 26)--Patient tolerating 1800-calorie diabetic diet well
Exudative pleural effusion -- s/p thoracentesis 06/14 with 750 mls drained-- CXR with recurrent effusion--apprec IR for repeat thoracentesis, 650 ml clear fluid on 06/18/24--apprec pulm--if recurs a third time might need chest tube--fluid appears
exudative
Bacteroids distasonis bacteremia with ESBL E. coli positive wound cultures (peritonitis)--positive intraoperative wound cultures with Intermittent fevers--thought to be due to possible Perisplenic hematoma---apprec ID--cont Invanz--day 19
Acute blood loss anemia--s/p 3 units PRBC this admission--JODIE with serosanguineous drainage--follow HGB--transfuse if HGB < 7--HGB drop from 8.3 to 7.3 with increased pleural effusion--not bloody by tap--transfuse pRBC--HGB up to 8.6
edema--bilateral LE--weights up (99kg on admission, down to 96.2Kg 06/17/24)---pt developed contraction alkalosis--stopped diuresis--much improved
TIFFANI --resolved
Hyponatremia--likely volume overload--resolved
Acute transaminitis--likely due to all above--resolved
Type 2 DM--insulin requiring --Hemoglobin A1c of 7.4--apprec DM SALES ADMINISTRATION MANAGER assistance
H/o Coarctation of the Aorta--s/p prior aortic stenting--Continue ASA--Monitor blood pressure
HLD--cont statin
Sacral Pressure Wound Stage 3--most likely due to pressure/position (pt does not really seem motivated to move)--apprec wound care
DVT Prophylaxis: Heparin subq
deconditioned--due to surgery, chronic arthritis issues, (edema per pt)--PT/OT---plan for SNF, when medically stable
Code Status-- Full Code
Original Note:
Today's Communication/Plan
-
Continue Ertapenem
Continue Nebs
Continue PT/OT
Assessment / Plan
Assessment / Plan
Assessment
58-year-old female with past medical history significant for hypertension, diabetes mellitus, history of breast cancer, history of endometrial cancer s/p hysterectomy, diverticulitis, coarctation of aorta presented to the ER with abdominal
discomfort and was diagnosed with sigmoid diverticulitis with perforation. She is status post Barbour's procedure.
Impression
Acute sigmoid diverticulitis with perforation s/p exploratory laparotomy and Barbour's procedure
Multifactorial shock
Bacteroides bacteremia
Pleural effusion
Acute blood loss anemia
Hypertension
Sinus tachycardia
TIFFANI
Acute transaminitis
Insulin-dependent diabetes mellitus
Coarctation of aorta
Iatrogenic volume overload
Hypercholesterolemia
Plan
#Acute sigmoid diverticulitis with perforation
Status post exploratory laparotomy/Barbour's procedure�POD# [address] scan in ED showing sigmoid diverticulitis with perforation
Patient underwent elective exploratory laparotomy resection and Caridad procedure
Patient tolerating 1800-calorie diabetic diet well
Stoma productive of stool and flatus
JODIE drains in place, monitor drain output
Midline drain with fecal like drainage- CT with no findings of fistulogram 06/17
Continue with PT/OT post op
#Multifactorial shock
Likely sepsis, hypovolemic
Patient previously requiring postop vasopressor support
Weaned off of pressors
#Bacteroids bacteremia
ESBL ecoli peritonitis
Intraoperative abdominal fluid culture growing ESBL E. coli
Bacteroides isolated preoperatively on blood culture 1 set, repeat negative
On ertapenem (day 19) continue as per ID
Blood Cultures-no growth 06/16
Continue to follow white count and temperature curve.
ID following
#Pleural effusion
Afebrile today (patient has been having variable intermittent fevers
White count trending down; today 8.9
Interventional radiology drained 750 cc of cloudy yellow pleural fluid on 06/14
Pleural fluid culture-no growth
ID follow-up appreciated
Pain meds ordered as needed
CXR 06/18 showed large left pleural effusion
IR drained 650 cc of clear yellow fluid on 06/18
Pulm consult appreciated: continue acapella, IS
If continued effusions/parapneumonic fluid, might need chest tube
# Acute blood loss anemia
s/p 4 units PRBC this admission at present
Hb dropped to 7.3 from 8.3, transfused 1 PRBC on 06/18
Hb stable today
monitor CBC
Transfuse if hemoglobin drops below 7
#Hypertension
PMH coartation of aorta with stent
Currently taking 3 blood pressure meds, continue
#Sinus tachycardia
Patient has been consistently tachycardic since admission, running in the high 90s to low 120s
Patient asymptomatic
TSH normal
Continue to follow tachycardia
#Sacral Pressure Wound Stage 3
-most likely due to pressure/position
-Wound care following
#TIFFANI
AGAP metabolic acidosis resolved
Hyponatremia
Renal function has normalized
Hyponatremia has resolved
# Acute transaminitis
Resolved
Continue rosuvastatin
Normal LFT
# IDDM
Hemoglobin A1c of 7.4
Maintain on NovoLog 4 units and Lantus with 8 units with sliding scale, continue farxiga
Diabetic nurse practitioner managing
# Coarctation of the Aorta
Systolic murmur heard on exam
s/p prior aortic stenting.
Continue ASA
Monitor blood pressure
#Iatrogenic volume overload
Patient came in 99 kg, up to 107 kg
Will continue to reassess volume status and need for diuresis with weights and clinical exam
Current weight is 95.6
#Hypercholesterolemia
No LFT abnormality on labs
Continue statin
DVT Prophylaxis: Lovenox
Full code
Anticipated Discharge: 24 - 48 hours
Subjective/Interval History
-
Date of Service: June 20, 2024
Patient has no new acute complaints, afebrile at time of exam.
Objective Data
-
Labs:
Laboratory Results
06/20/24
05:18
WBC 10.0
Hgb 8.6 L
Hct 26.3 L
Plt Count 431 H D
Sodium 140
Potassium 3.9
Chloride 102
Carbon Dioxide 28
BUN 13
Creatinine 0.6
Glucose 97
Calcium 8.0 L
Vital Signs:
Vital Signs
Temp Pulse Resp BP Pulse Ox
99.1 F 100 16 149/74 90
06/20/24 04:10 06/19/24 23:38 06/19/24 23:38 06/19/24 23:38 06/19/24 23:38
I&O
06/19/24 06/20/24 06/21/24
06:59 06:59 06:59
Intake Total 1250 / 1250 2400 / 2400
Output Total 55 / 55 60 / 60
Balance 1195 / 1195 2340 / 2340
Review of Systems
-
All other systems: Reviewed and negative
Physical Exam
-
General: No Apparent Distress
HEENT: Normocephalic
Respiratory: Clear to Auscultation
Cardiac: Regular Rhythm and S1/S2
GI: Soft
Musculoskeletal: No Edema
Skin: Warm and Dry
Neuro: Awake, Alert and Oriented
Psych: Calm
[2024-06-20] MEDS: VENTOLIN NEBULES 2.5 MG INH ×3 (07:10→20:06)
[2024-06-20 07:15] VITALS: BP 164/93
--- NOTE | 2024-06-20 07:34 | PN.DE.MGMTRT ---
Insulin Management
- -
06/20/2024: Diabetes Management Follow up:
Patient admitted 05/19 with acute sigmoid diverticulitis with perforation. PMH endometrial CA, breast CA, HTN, HCL, steroid induced diabetes. Prior to admission was taking 19 units NovoLog AC with Mounjaro 2.[address] Cordova
and Omer Ndiaye PA-c at [facility]. Recently was started on Mounjaro and Jardiance and had frequent low blood sugars. She states she could not get an appointment with Omer so she called her primary doctor who told her to stop Lantus and
Jardiance due to hypoglycemia. A1C is 7.4, Cr 1.5, eGFR 39.65. Extubated 05/23, transitioned off of glycemic protocol 05/25.
Patient is awake and A/O x3, oob in chair. Able to discuss diabetes management. Son at bedside.
POD# 29, s/p exp lap/Barbour's procedure with diverting colostomy (05/22/2024)
06/10 drain insertion, 06/14, 2nd drain placement. 06/15 thoracentesis-750cc removed, second thoracentesis - 650 removed 06/18, doing well.
06/19 glucose stable 87 to 150, Fasting today 97.
Will make no changes to current regimen: Continue NovoLog 4 units AC with moderate corrective, Farxiga 10 mg daily (at home taking Jardiance 10 mg daily) and Lantus 8 units in AM, with Mounjaro 5 mg weekly on Monday.
Pt states that Jardiance will not be provided to her while in rehab due to cost. She has requested script for Jardiance to be sent to pharmacy so her son can pick it up and have it ready to take to rehab.
Discussed with patient and nurse.
Diabetes History
- -
Type of Diabetes: 2 requiring insulin
Pre-Admission Diabetes Regimen
06/20/24
05:18
Creatinine 0.6
Lab Results
Hemoglobin A1c 7.4 % (4.0-5.6) H 05/20/24 05:23
Insulin Pump Settings
IP Diabetes Regimen
06/19/24 06/19/24 06/19/24
07:42 14:29 17:19
Glucose
POC Glucose 126 H 150 H 101 H
06/19/24 06/20/24
21:50 05:18
Glucose 97
POC Glucose 87
Meal type: Dinner
Meal type: Lunch
Meal type: Breakfast
Amount consumed: 100%
Amount consumed: 100%
Amount consumed: 100%
Patient Education
[2024-06-20 07:57] LABS: Glucose - Point of Care 127 mg/dl (70-99)
[2024-06-20] MEDS: NOVOLOG FLEXPEN 4 UNITS SC ×3 (08:23→17:53)
[2024-06-20] MEDS: NOVOLOG FLEXPEN-MODERATE RESISTANCE SC ×3 (08:24→17:52)
[2024-06-20] MEDS: LANTUS 0.08 UNITS SC (08:24)
[2024-06-20] MEDS: PROCARDIA XL (EXTENDED RELEASE) 30 MG PO ×2 (08:25→21:09)
[2024-06-20] MEDS: FARXIGA 10 MG PO (08:25)
[2024-06-20] MEDS: PROTONIX 40 MG PO (08:25)
[2024-06-20] MEDS: COZAAR 50 MG PO ×2 (08:25→21:09)
[2024-06-20] MEDS: NEURONTIN 100 MG PO ×3 (08:26→21:09)
[2024-06-20] MEDS: LOPRESSOR 100 MG PO ×2 (08:26→21:10)
[2024-06-20] MEDS: DESENEX/MITRAZOL/ZEASORB 1 APPLIC TOPICAL ×2 (08:26→21:11)
[2024-06-20] MEDS: COLACE 100 MG PO ×2 (08:26→21:10)
--- NOTE | 2024-06-20 09:17 | W.PN.ID1 ---
Date of Service
Date of Service: June 20, 2024
Today's Communication
Continue ertapenem.
Assessment / Plan
# Fevers
- onset 06/15
- temp curve trending down.
# Leukocytosis
- improved
# Diverticulitis with diverticular perforation
- s/p diverting colostomy (05/22/2024).
- Intra-op splenic capsular tear with infected hematoma
# LUQ infected hematoma
-s/p drain placement (06/14/24) - bloody
- Fluid cx: ESBL E. coli x2
# Anterior abdominal collection/abscess
- s/p drainage (06/10/24)
- Cultures with Klebsiella pneumoniae and ESBL E. coli
# Left pleural effusion
- s/p thoracentesis 750cc cloudy yellow fluid (06/15/24)
- exudative
Hx Bacteroides bacteremia; cleared
HTN
DM
Hx breast CA
Hx endometrial CA
Diverticulitis
Recommendations:
Blood cultures [id number]
Continue with ertapenem.
Continue to follow white count and temperature curve.
����������������������������������������������������������
Chief Complaint
-: Other (Abdominal infection)
Subjective / Review of Systems
Review of Systems: No Chills
Vital Signs / Physical Exam
Vital Signs
Vital Signs
Temp Pulse Resp BP Pulse Ox
98.3 F 101 16 164/93 96
06/20/24 07:15 06/20/24 08:26 06/20/24 07:15 06/20/24 08:26 06/20/24 07:15
Physical Exam
Constitutional: No Acute Distress, Comfortable, Chronically Ill and Non-toxic
Eyes: Sclera Anicteric
Cardiovascular: S1/S2; Negative S3/S4
Pulmonary: Non Labored
Gastrointestinal: Soft, Non Tender, Non Distended, Normal Bowel Sounds and Other (Midline incision dry, (+) eschars w/o surrounding erythema; LUQ JODIE drain bloody output (decreased), RLQ JODIE drain- serosanguinous fluid)
Extremities: Edema; Negative Erythema
Skin: Warm and Dry; Negative Rash
Neurological: Awake, Alert and AO x 3
Psychological: Calm
Lines: PICC (LUE intact)
Objective Data
Lab Data
Lab Results
06/20/24 05:18
06/20/24 05:18
PT 16.1 Sec (11.4-14.6) H 05/22/24 19:57
INR 1.28 05/22/24 19:57
APTT 28.3 Sec (23.4-35.0) 05/22/24 19:57
Estimated Creat Clear 116 ml/min 06/20/24 05:18
Lactic Acid 1.2 mmol/L (0.7-2.0) 05/20/24 22:09
Total Bilirubin 0.5 mg/dl (0.2-1.3) 06/15/24 07:40
AST 35 U/L (14-36) 06/15/24 07:40
ALT 21 U/L (0-35) 06/15/24 07:40
Alkaline Phosphatase 74 U/L (38-126) 06/15/24 07:40
Most recent labs reviewed.
Micro Results:
06/16/24 13:28 Blood Culture - Preliminary
Blood/Venous No Growth in 72 hours- Final report to follow
06/15/24 13:43 Body Fluid Culture - Final
Pleural Fluid No Growth After 72 Hours
Gram Stain - Final
06/14/24 18:10 Body Fluid Culture - Final
Fluid Escherichia coli - ESBL
Escherichia coli - ESBL#2
Gram Stain - Final
06/09/24 10:30 Blood Culture - Final
Blood/Venous No Growth - Final Report
06/09/24 10:29 Blood Culture - Final
Blood/Venous No Growth - Final Report
06/10/24 12:54 Wound Culture - Final
Abdomen Escherichia coli - ESBL
Klebsiella pneumoniae
Gram Stain - Final
06/02/24 12:02 Blood Culture - Final
Blood/Venous No Growth - Final Report
06/02/24 09:36 Blood Culture - Final
Blood/Venous No Growth - Final Report
05/22/24 08:00 Wound Culture - Final
Abdomen Escherichia coli - ESBL
Gram Stain - Final
05/22/24 08:00 Anaerobic Culture - Final
Abdomen
05/19/24 20:48 Blood Culture - Final
Blood/Venous Bacteroides distasonis
Gram Stain - Final
05/21/24 17:56 Blood Culture - Final
Blood/Venous No Growth - Final Report
Imaging:
06/17/2024 CT abdomen/pelvis: Lower abdominal drainage catheter is in satisfactory positioning within the anterior peritoneal cavity. There is no overt fluid collection within the anterior peritoneal cavity, but rather strandy fluid with gas foci.
This is relatively unchanged compared to the recent CT. Contrast administered through this catheter prior to CT acquisition surrounds the pigtail catheter, but does not extend into the bowel lumen. Findings are consistent with no bowel fistula.
Left upper quadrant drainage catheter is in satisfactory position within a left upper quadrant fluid collection. Interval diminution in size of the left upper quadrant fluid collection now measuring 8.8 x 8.8 cm compared to 10.4 x 9.5 cm previously.
06/04/2024 CT abdomen/pelvis with contrast: Heterogeneous collection in the left upper quadrant, superior to the spleen and upper stomach. The patient has a history of splenic laceration during splenic flexure takedown, and this most likely
represents a hematoma. Measurements without significant change from examination of May 27, 2024. Although this was not a CT angiography examination, there is no CT evidence to suggest significant active bleeding. There is fluid in the left
paracolic gutter and extending slightly medially in the left lower abdomen adjacent to small bowel loops. This fluid has slightly increased since examination May 27, 2024. There is a drainage catheter with its tip is in the inferior aspect of
this fluid collection. There is an unusual ovoid fat, fluid, and air density in the midline abdomen posterior to the abdominal wall. This is felt to likely represent necrotic omentum, and superimposed infection cannot be excluded. There is no
evidence of a drainable collection at this time. Moderate subcutaneous edema. This is slightly improved from examination of May 27, 2024.
05/27/2024 CT abdomen/pelvis with contrast: There is 7 x 8 x 3 cm intermediate density heterogeneous left subdiaphragmatic fluid collection containing a small amount of extraluminal gas. Differential diagnosis for this collection includes hematoma
and abscess. Sigmoidectomy with left lower quadrant colostomy. Moderate ascites including areas of loculated fluid in the abdomen and pelvis. Small left pleural effusion with compressive atelectasis at the posterior left lung base. Please see
full dictation for additional detail.
--- NOTE | 2024-06-20 09:19 | W.PN.CRS1 ---
Today's Communication / Plan
-
continue antibiotics
continue IR drains
Assessment/Plan
-
58-year-old female with PMH of recurrent diverticulitis (multiple episodes over the last 25 years), recent UTI on 04/29 seen in the [place] ED, HTN, DM (on Mounjaro), breast cancer s/p resection and chemo, endometrial cancer s/p LETI/BSO,? Aortic
stent who presented with acute abdominal pain, CT concerning for perforated diverticulitis with flecks of free air around the abdomen; patient initially managed nonoperatively as there was no signs of peritonitis or hemodynamic instability; however,
patient did not improve and a repeat CT scan showed worsening pneumoperitoneum with persistent inflammation of the sigmoid colon
POD#28 Caridad's; postop was on pressors and intubated. Off pressors and extubated by POD2
05/27 CT (for bump in WBC) - LUQ collection c/f perisplenic hematoma, expected post-op changes
06/03 US chest with moderate pleural effusion
06/04 CT with stable perisplenic hematoma, no abscess, necrotic omentum noted
06/09 CT with large 14.7cm midline abscess, ?pericolic gutter abscess, perisplenic collection relatively stable in size
06/10- IR drain placement into midline collection (Cx ESBL and Klebsiella)
06/12- 2 units prbcs
06/14- CT with improving midline abscess, fluid in pericolic gutter still present as was perisplenic collection. IR drain to LUQ collection, final Cx pending, prelim with GNB suggestive of infected hematoma
06/15 Thoracentesis for large left pleural effusion, 750ml removed
06/17- IR fistulogram/CT - no fistula noted
06/18- thoracocentesis
Fevers persist, Tmax 100.6 (trending down)
WBC normalized 10.0
Tolerating diet, stoma productive of stool/flatus
Old blood from LUQ drain
Pus/serous output in the midline drain
- Continue IR drains x2.
- Wound cultures pending from second IR drain placement, GNB thus far
- Continue diet
� Appreciate WOCN
- Appreciate PT� recommending rehab for discharge, CM following for placement
� Appreciate hospitalist
- Antibiotics per ID, currently on Invanz
- Analgesics: Meloxicam and gabapentin scheduled, tylenol, tramadol, skelaxin and dilaudid prn
- C/W lovenox and SCDs for VTE ppx
Subjective Data
Procedure
05/22/2024- 1) exploratory laparotomy 2) Caridad's resection (sigmoidectomy with rectopexy)
Subjective Data
Date of Service: June 20, 2024
The patient states she had a good night. She is tolerating a diet. She has no nausea or vomiting. She has no other complaints.
Objective Data
-
Vital Signs
Temp Pulse Resp BP Pulse Ox
98.3 F 101 16 164/93 96
06/20/24 07:15 06/20/24 08:26 06/20/24 07:15 06/20/24 08:26 06/20/24 07:15
Intake & Output
06/19/24 06/20/24 06/21/24
06:59 06:59 06:59
Intake Total 1250 / 1250 2400 / 2400
Output Total 55 / 55 60 / 60
Balance 1195 / 1195 2340 / 2340
Intake:
Oral fluids 1000 / 1000 2400 / 2400
Blood Product Amount Infused ( 250 / 250
mL)
Packed Rbc Leukoreduced Unit 250 / 250
[id number]
Output:
Liquid stool amount 50 / 50
Colostomy 50 / 50
Drain Output (Total) 55 / 55 10 / 10
Left Upper Abdomen Placed in IR 25 / 25 5 / 5
Right Abdomen Placed in IR 30 / 30 5 / 5
Other:
Number of approximated MODERATE 3 1
amounts of urine
How many times incontinent 1 2
MODERATE amount urine
How many times incontinent 2 3
SATURATED amount urine
Lab Results
06/20/24 05:18
06/20/24 05:18
Physical Exam
-
General: No Acute Distress and AOx3
Abdomen: Soft, Non Distended, Non Tender and Other (Right drain with serous green output, Left drain with old bloody output)
Skin: Warm and Dry
--- NOTE | 2024-06-20 11:18 | W.PN.PUL3 ---
Today's Communication / Plan
-
Stable on RA, but still with poor IS effort
PT/OT evals ongoing
IV abx per team
Repeat CXR in AM
Assessment
-
58-year-old woman with past medical history significant for diverticular disease, hypertension, type 2 diabetes who presented to the emergency room complaining of abdominal pain. CT abdomen pelvis performed demonstrated diverticulitis with concern
for perforation. She was followed for 24th for 48 hours on antibiotics, repeat CT showed worsening intraperitoneal air s/p operating room for exploratory laparotomy. She underwent exploratory laparotomy, Barbour's resection on 05/22/2024.
Subsequently in the ICU, intubated, sedated from mechanical ventilation. Transferred to floor 05/25.
We are asked for re-eval for recurrent pleural effusions 06/19/24.
Recurrent pleural effusion s/p thora x 2
Acute abdomen: Acute diverticulitis with bowel perforation
CT abdomen pelvis reviewed: Perforated diverticula with intraperitoneal air.
Status post exploratory laparotomy 05/22/2024: Barbour's resection.
Postoperative mechanical ventilation
Extubated 05/23/2024
Septic shock
Acute kidney injury metabolic acidosis
Anion gap metabolic acidosis
Hyperglycemia postoperative anemia due to blood loss/acute
Conditions present prior admission:
Type 2 diabetes
Hypertension
Obesity
History of coarctation of the aorta
Breast cancer status postmastectomy and chemotherapy
Uterine cancer status post hysterectomy
Diverticular disease
Status post breast reconstruction
History of
Aortic stent placement
Cataracts
Plan
Events from ICU reviewed, transferred to floors 05/25
Extubated 05/23/2024, currently stable on RA
Has not noticed worsening SOB
Recurrent pleural effusion s/p thora x 2
Fluid studies reviewed: Pleural fluid 06/15/24: pH 7.41 - TP 3.8 - LDH 386 - Culture neg - Cyto pending
Serum TP 5.6, LDH 300
Results are mostly indicating exudative fluid, likely parapneumonic tho culture negative since being on abx
We discussed role of intervention if fluid continues to re-accumulate
Repeat CXR in AM
Imaging reviewed, small area of effusion with compressive atelectasis
Reviewed her best IS effort, <500
Encouraged more effort, deep breathing
Continue acapella and nebs
Airway clearance
Status post exploratory laparotomy for acute diverticulitis with perforation
Surgical correspondence/operative reports reviewed
Ostomy care
Follow drain output
Septic shock/metabolic acidosis-resolved.
Maintained on IV ertapenem
Needs OOB/Ambulation/PT
Physical therapy/Occupational Therapy consults
DVT prophylaxis with SCDs/heparin subcu
Reviewed case with son extensively at bedside
Diagnostic Data
CXR 06/18/24- 1. Improved left pleural effusion following thoracentesis.
2. No pneumothorax.
CT AP 06/17/24- LOWER CHEST: Large left pleural effusion with adjacent atelectasis, only partially visualized. Partially visualized bilateral breast implants. Trace pericardial fluid is noted.. Right lung bases clear.
Lower abdominal drainage catheter is in satisfactory positioning within the anterior peritoneal cavity. There is no overt fluid collection within the anterior peritoneal cavity, but rather strandy fluid with gas foci. This is relatively unchanged
compared to the recent CT. Contrast administered through this catheter prior to CT acquisition surrounds the pigtail catheter, but does not extend into the bowel lumen. Findings are consistent with no bowel fistula.
Left upper quadrant drainage catheter is in satisfactory position within a left upper quadrant fluid collection. Interval diminution in size of the left upper quadrant fluid collection now measuring 8.8 x 8.8 cm compared to 10.4 x 9.5 cm previously.
ECHO 12/20/21- Normal left ventricular size and systolic function. No regional wall motion abnormalities are seen. LV ejection fraction is 60-65%. Mild concentric left ventricular hypertrophy. Mild mitral regurgitation. Aortic coarctation stent
history with peak/mean gradients 22/10mmHg. No prior study available for comparison.
-----
Total time spent on this encounter __51__ includes review of history, physical exam, medications, laboratory data, personal review of imaging, extensive review of outpatient records, discussion with care team and respiratory therapy.
Subjective Data
-
Date of Service:
Date of Service: June 20, 2024
Chief Complaint: Pulmonary Follow Up
Subjective:
No acute events ON, stable on RA
Still with poor IS effort
Son at bedside
Objective Data
Data Reviewed
Vital Signs / I&O / Oxygen:
Vital Signs
Temp Pulse Resp BP Pulse Ox
98.3 F 101 16 164/93 96
06/20/24 07:15 06/20/24 08:26 06/20/24 07:15 06/20/24 08:26 06/20/24 08:15
Intake and Output
06/19/24 06/20/24 06/21/24
06:59 06:59 06:59
Intake Total 1250 / 1250 2400 / 2400
Output Total 55 / 55 60 / 60
Balance 1195 / 1195 2340 / 2340
SaO2 [A/C] 97
SaO2 96
Nasal Cannula flow liters per 3
minute
Physical Exam
General: Comfortable and Other (NAD)
HEENT: Normocephalic, Anicteric and Moist Mucous Membranes
Cardiovascular: S1-S2 and Regular Rhythm
Respiratory: Clear (overall diminished) and Non-Labored Respirations
GI: Soft, Non Distended, Non Tender and Other (ostomy in place)
Neurology: Awake, Alert, Oriented, AO x 3 and No Motor Deficits
Skin: Warm, Dry and Good Color
Labs/Micro/Reports
Lab Data
06/20/24 05:18
06/20/24 05:18
Microbiology
06/16/24 13:28 Blood/Venous Blood Culture - Preliminary
No Growth in 72 hours- Final report to follow
06/15/24 13:43 Pleural Fluid Body Fluid Culture - Final
No Growth After 72 Hours
06/15/24 13:43 Pleural Fluid Gram Stain - Final
06/14/24 18:10 Fluid Body Fluid Culture - Final
Escherichia coli - ESBL
Escherichia coli - ESBL#2
06/14/24 18:10 Fluid Gram Stain - Final
[2024-06-20] MEDS: INVANZ 60 MG IV (12:04)
[2024-06-20 12:18] LABS: Glucose - Point of Care 120 mg/dl (70-99)
--- NOTE | 2024-06-20 13:44 | CM ---
Addendum entered by Janett Gutierres 06/20/24 14:55:
Updated insurance card given to patient. Patient son states he wants her to go to [place] if Dr. Peres approves. Per patient son patient did not confirm she wanted to go to [facility]. CM will continue to follow for discharge planning needs.
Original Note:
Patient seen at bedside with physician and resident. Patient updated CM that her insurance had changed as of 05/26/24. Patient does not have the updated insurance card for her pharmacy needs. CM spoke with admissions and they confirmed , pharmacy bin # [id number]. Admissions uploading card to patient record. CM will continue to follow for discharge planning needs.
Plan; SNF when medically appropriate.
[2024-06-20] MEDS: ULTRAM 50 MG PO (13:50)
[2024-06-20 15:58] VITALS: BP 171/84; PULSE 109
[2024-06-20 16:01] VITALS: BP 148/97; BP 171/84; PULSE 90
[2024-06-20 16:27] VITALS: BP 153/91
[2024-06-20 17:18] LABS: Glucose - Point of Care 116 mg/dl (70-99)
[2024-06-20] MEDS: CRESTOR 30 MG PO (17:19)
[2024-06-20] MEDS: LOVENOX 40 MG SC (17:20)
[2024-06-20 21:24] LABS: Glucose - Point of Care 113 mg/dl (70-99)
[2024-06-20 23:29] VITALS: BP 133/91
[2024-06-21] MEDS: ULTRAM 50 MG PO (05:36)
[2024-06-21 06:00] VITALS: BMI 33.2
[2024-06-21 06:28] LABS: % Basophils 0.4 % (0-2); % Eosinophils 1.7 % (0-6); % Immature Granulocytes 0.8 % (0-0.5); % Monocytes 9.1 % (1.7-9.3); Absolute Eosinophils 0.2 10^3/uL (0-0.7); Absolute Immature Granulocytes 0.1 10^3/uL (0-0.05); Absolute Lymphocytes 1.4 10^3/uL (1.2-3.4); Absolute Neutrophils 7.8 10^3/uL (1.4-6.5); Hemoglobin 8.8 g/dL (12.0-16.0); Mean Corp Hgb Conc. 32.6 g/dL (33.0-37.0); Mean Corpuscular Hgb 27.8 pg (27.0-31.0); Mean Corpuscular Volume 85.2 fL (81.0-99.0); Mean Platelet Volume 10.7 fL (7.4-10.4); Nucleated Red Blood Cells % 0 %; Platelet Count 425 10^3/uL (130-400); Red Blood Cell Count 3.17 10^6/uL (4.20-5.40); Red Cell Dist. Width 16.1 % (11.5-14.5); White Blood Cell Count 10.4 10^3/uL (4.8-10.8)
[2024-06-21 06:49] LABS: Blood Urea Nitrogen 11 mg/dl (7-17); Calcium 8.2 mg/dl (8.4-10.2); Carbon Dioxide 25 mmol/L (22-30); Chloride 99 mmol/L (98-107); Estimated Creatinine Clearance 115 ml/min; Glucose 105 mg/dl (70-99); Magnesium 1.8 mg/dl (1.6-2.3); Potassium 3.9 mmol/L (3.5-5.1); Sodium 139 mmol/L (135-145); eGFR > 60.00
--- NOTE | 2024-06-21 07:07 | PN.DE.MGMTRT ---
Insulin Management
- -
06/21/2024: Diabetes Management Follow up:
Patient admitted 05/19 with acute sigmoid diverticulitis with perforation. PMH endometrial CA, breast CA, HTN, HCL, steroid induced diabetes. Prior to admission was taking 19 units NovoLog AC with Mounjaro 2.[address] Cordova
and Omer Ndiaye PA-c at [facility]. Recently was started on Mounjaro and Jardiance and had frequent low blood sugars. She states she could not get an appointment with Omer so she called her primary doctor who told her to stop Lantus and
Jardiance due to hypoglycemia. A1C is 7.4, Cr 1.5, eGFR 39.65. Extubated 05/23, transitioned off of glycemic protocol 05/25.
Patient is awake and A/O x3, oob in chair. Able to discuss diabetes management. Son at bedside.
POD# 30, s/p exp lap/Barbour's procedure with diverting colostomy (05/22/2024)
06/10 drain insertion, 06/14, 2nd drain placement. 06/15 thoracentesis-750cc removed, second thoracentesis - 650 removed 06/18, doing well.
06/20 glucose stable 97 to 120, Fasting today 105.
Will make no changes to current regimen: Continue NovoLog 4 units AC with moderate corrective, Farxiga 10 mg daily (at home taking Jardiance 10 mg daily) and Lantus 8 units in AM, with Mounjaro 5 mg weekly on Monday.
Pt states that Jardiance will not be provided to her while in rehab due to cost. She has requested script for Jardiance to be sent to pharmacy so her son can pick it up and have it ready to take to rehab.
Discussed with patient and nurse.
Diabetes History
- -
Type of Diabetes: 2 requiring insulin
Pre-Admission Diabetes Regimen
06/21/24
06:04
Creatinine 0.6
Lab Results
Hemoglobin A1c 7.4 % (4.0-5.6) H 05/20/24 05:23
Insulin Pump Settings
IP Diabetes Regimen
06/20/24 06/20/24 06/20/24
07:55 12:16 17:16
Glucose
POC Glucose 127 H 120 H 116 H
06/20/24 06/21/24
21:22 06:04
Glucose 105 H
POC Glucose 113 H
Meal type: Dinner
Amount consumed: 85%
Patient Education
--- NOTE | 2024-06-21 07:39 | W.PN.HOSP.TC ---
Today's Communication/Plan
-
Continue Ertapenem as per ID
Continue PT/OT
Started Lasix
Repeat CXR on monday
Assessment / Plan
Assessment / Plan
Assessment
58-year-old female with past medical history significant for hypertension, diabetes mellitus, history of breast cancer, history of endometrial cancer s/p hysterectomy, diverticulitis, coarctation of aorta presented to the ER with abdominal
discomfort and was diagnosed with sigmoid diverticulitis with perforation. She is status post Barbour's procedure.
Impression
Acute sigmoid diverticulitis with perforation s/p exploratory laparotomy and Barbour's procedure
Multifactorial shock
Bacteroides bacteremia
Pleural effusion
Acute blood loss anemia
Hypertension
Sinus tachycardia
TIFFANI
Acute transaminitis
Insulin-dependent diabetes mellitus
Coarctation of aorta
Iatrogenic volume overload
Hypercholesterolemia
Plan
#Acute sigmoid diverticulitis with perforation
Status post exploratory laparotomy/Barbour's procedure�POD# [address] scan in ED showing sigmoid diverticulitis with perforation
Patient underwent elective exploratory laparotomy resection and Caridad procedure
Stoma productive of stool and flatus
JODIE drains in place, monitor drain output
Midline drain with fecal like drainage- CT with no findings of fistulogram 06/17
Continue with PT/OT post op
#Multifactorial shock
Likely sepsis, hypovolemic
Patient previously requiring postop vasopressor support
Weaned off of pressors
#Bacteroids bacteremia
ESBL ecoli peritonitis
Intraoperative abdominal fluid culture growing ESBL E. coli
Bacteroides isolated preoperatively on blood culture 1 set, repeat negative
On ertapenem (day 20) continue as per ID
Blood Cultures-no growth 06/16
Continue to follow white count and temperature curve.
ID following
#Pleural effusion
Afebrile today (patient has been having variable intermittent fevers)
White count wnl; today 10.4
Interventional radiology drained 750 cc of cloudy yellow pleural fluid on 06/14
Pleural fluid culture-no growth
ID follow-up appreciated
Pain meds ordered as needed
CXR 06/18 showed large left pleural effusion
Repeat CXR on 06/20 showed worsening L pleural effusion
IR drained 650 cc of clear yellow fluid on 06/18
Pulm consult appreciated: continue acapella
Lasix started
Repeat CXR on monday
# Acute blood loss anemia
s/p 4 units PRBC this admission at present
Hb dropped to 7.3 from 8.3, transfused 1 PRBC on 06/18
Hb stable today
monitor CBC
Transfuse if hemoglobin drops below 7
#Hypertension
PMH coartation of aorta with stent
Currently taking 3 blood pressure meds, continue
#Sinus tachycardia
Patient has been consistently tachycardic since admission, running in the high 90s to low 120s
Patient asymptomatic
TSH normal
Continue to follow tachycardia
#Sacral Pressure Wound Stage 3
-most likely due to pressure/position
-Wound care following
#TIFFANI
AGAP metabolic acidosis resolved
Hyponatremia
Renal function has normalized
Hyponatremia has resolved
# Acute transaminitis
Resolved
Continue rosuvastatin
Normal LFT
# IDDM
Hemoglobin A1c of 7.4
Maintain on NovoLog 4 units and Lantus with 8 units with sliding scale, continue farxiga
Diabetic nurse practitioner managing
# Coarctation of the Aorta
Systolic murmur heard on exam
s/p prior aortic stenting.
Continue ASA
Monitor blood pressure
#Iatrogenic volume overload
Patient came in 99 kg, up to 107 kg
Will continue to reassess volume status
Current weight is 93.3kg
BNP 6420 today, Lasix started
#Hypercholesterolemia
No LFT abnormality on labs
Continue statin
DVT Prophylaxis: Lovenox
Full code
Anticipated Discharge: 24 - 48 hours
Subjective/Interval History
-
Date of Service: June 21, 2024
Patient says her left side pain has greatly decreased from the past few days. She denies any SOB or chest pain.
Objective Data
-
Labs:
Laboratory Results
06/21/24
06:04
WBC 10.4
Hgb 8.8 L
Hct 27.0 L
Plt Count 425 H
Sodium 139
Potassium 3.9
Chloride 99
Carbon Dioxide 25
BUN 11
Creatinine 0.6
Glucose 105 H
Calcium 8.2 L
Vital Signs:
Vital Signs
Temp Pulse Resp BP Pulse Ox
99.7 F 110 16 133/91 91
06/21/24 03:35 06/20/24 23:29 06/20/24 23:29 06/20/24 23:29 06/20/24 23:29
I&O
06/20/24 06/21/24 06/22/24
06:59 06:59 06:59
Intake Total 2400 / 2400 480 / 480
Output Total 60 / 60 835 / 835
Balance 2340 / 2340 -355 / -355
Review of Systems
-
All other systems: Reviewed and negative
[2024-06-21 07:40] VITALS: BP 161/80
[2024-06-21 07:50] LABS: Glucose - Point of Care 103 mg/dl (70-99)
[2024-06-21] MEDS: VENTOLIN NEBULES 2.5 MG INH ×3 (08:29→19:28)
[2024-06-21] MEDS: NOVOLOG FLEXPEN-MODERATE RESISTANCE SC ×4 (08:59→17:08)
[2024-06-21] MEDS: NOVOLOG FLEXPEN 4 UNITS SC ×3 (08:59→17:06)
[2024-06-21] MEDS: LANTUS 0.08 UNITS SC (09:00)
[2024-06-21] MEDS: LOPRESSOR 100 MG PO ×2 (09:00→20:38)
[2024-06-21] MEDS: FARXIGA 10 MG PO (09:00)
[2024-06-21] MEDS: PROCARDIA XL (EXTENDED RELEASE) 30 MG PO ×2 (09:00→20:40)
[2024-06-21] MEDS: COZAAR 50 MG PO ×2 (09:01→20:38)
[2024-06-21] MEDS: NEURONTIN 100 MG PO ×3 (09:01→21:16)
[2024-06-21] MEDS: COLACE 100 MG PO ×2 (09:01→20:38)
[2024-06-21] MEDS: PROTONIX 40 MG PO (09:01)
[2024-06-21] MEDS: DESENEX/MITRAZOL/ZEASORB 1 APPLIC TOPICAL ×2 (09:02→20:41)
--- NOTE | 2024-06-21 09:12 | W.PN.CRS1 ---
Today's Communication / Plan
-
continue antibiotics
Assessment/Plan
-
58-year-old female with PMH of recurrent diverticulitis (multiple episodes over the last 25 years), recent UTI on 04/29 seen in the [facility] ED, HTN, DM (on Mounjaro), breast cancer s/p resection and chemo, endometrial cancer s/p LETI/BSO,? Aortic
stent who presented with acute abdominal pain, CT concerning for perforated diverticulitis with flecks of free air around the abdomen; patient initially managed nonoperatively as there was no signs of peritonitis or hemodynamic instability; however,
patient did not improve and a repeat CT scan showed worsening pneumoperitoneum with persistent inflammation of the sigmoid colon
POD#29 Caridad's; postop was on pressors and intubated. Off pressors and extubated by POD2
05/27 CT (for bump in WBC) - LUQ collection c/f perisplenic hematoma, expected post-op changes
06/03 US chest with moderate pleural effusion
06/04 CT with stable perisplenic hematoma, no abscess, necrotic omentum noted
06/09 CT with large 14.7cm midline abscess, ?pericolic gutter abscess, perisplenic collection relatively stable in size
06/10- IR drain placement into midline collection (Cx ESBL and Klebsiella)
06/12- 2 units prbcs
06/14- CT with improving midline abscess, fluid in pericolic gutter still present as was perisplenic collection. IR drain to LUQ collection, final Cx pending, prelim with GNB suggestive of infected hematoma
06/15 Thoracentesis for large left pleural effusion, 750ml removed
06/17- IR fistulogram/CT - no fistula noted
06/18- thoracocentesis
Fevers persist, Tmax 100.5 (trending down)
WBC normalized 10.0
Tolerating diet, stoma productive of stool/flatus
Old blood from LUQ drain
Pus/serous output in the midline drain
- Continue IR drains x2.
- Continue diet
� Appreciate WOCN
- Appreciate PT� recommending rehab for discharge, CM following for placement
� Appreciate hospitalist
- Antibiotics per ID, currently on Invanz
- Analgesics: Meloxicam and gabapentin scheduled, tylenol, tramadol, skelaxin and dilaudid prn
- C/W lovenox and SCDs for VTE ppx
Subjective Data
Procedure
05/22/2024- 1) exploratory laparotomy 2) Caridad's resection (sigmoidectomy with rectopexy)
Subjective Data
Date of Service: June 21, 2024
Patient states she feels the same and overall doesn't feel that bad. She has no nausea or vomiting. She is tolerating a diet.
Objective Data
-
Vital Signs
Temp Pulse Resp BP Pulse Ox
97.6 F 111 16 161/80 92
06/21/24 07:40 06/21/24 09:01 06/21/24 08:30 06/21/24 09:01 06/21/24 08:30
Intake & Output
06/20/24 06/21/24 06/22/24
06:59 06:59 06:59
Intake Total 2400 / 2400 480 / 480
Output Total 60 / 60 835 / 835
Balance 2340 / 2340 -355 / -355
Intake:
Oral fluids 2400 / 2400 480 / 480
Output:
Liquid stool amount 50 / 50 350 / 350
Colostomy 50 / 50 350 / 350
Drain Output (Total) 35 / 35
Left Upper Abdomen Placed in IR
Right Abdomen Placed in IR
Urine, Voided 450 / 450
Other:
Number of approximated MODERATE 1
amounts of urine
How many times incontinent 2
MODERATE amount urine
How many times incontinent 3 3
SATURATED amount urine
Lab Results
06/21/24 06:04
06/21/24 06:04
Physical Exam
-
General: No Acute Distress and AOx3
Abdomen: Soft, Non Distended, Tender (mild around drains) and Other (R drain with serous light car/green output (unchanged), left sided old blood, ostomy warm and pink with function )
Skin: Warm and Dry
Incision: Clear, Dry, Intact
--- NOTE | 2024-06-21 09:41 | W.PN.PUL3 ---
Today's Communication / Plan
-
Repeat CXR showing worsening L sided effusion, but would hold off tapping
Repeat proBNP >6000, add daily lasix
Continue rehab, IS
Continue abx per team for abscesses
Repeat imaging in next 24-48 hours
Assessment
-
58-year-old woman with past medical history significant for diverticular disease, hypertension, type 2 diabetes who presented to the emergency room complaining of abdominal pain. CT abdomen pelvis performed demonstrated diverticulitis with concern
for perforation. She was followed for 24th for 48 hours on antibiotics, repeat CT showed worsening intraperitoneal air s/p operating room for exploratory laparotomy. She underwent exploratory laparotomy, Barbour's resection on 05/22/2024.
Subsequently in the ICU, intubated, sedated from mechanical ventilation. Transferred to floor 05/25.
We are asked for re-eval for recurrent pleural effusions 06/19/24.
Recurrent pleural effusion s/p thora x 2
Acute abdomen: Acute diverticulitis with bowel perforation
CT abdomen pelvis reviewed: Perforated diverticula with intraperitoneal air.
Status post exploratory laparotomy 05/22/2024: Barbour's resection.
Postoperative mechanical ventilation
Extubated 05/23/2024
Septic shock
Acute kidney injury metabolic acidosis
Anion gap metabolic acidosis
Hyperglycemia postoperative anemia due to blood loss/acute
Conditions present prior admission:
Type 2 diabetes
Hypertension
Obesity
History of coarctation of the aorta
Breast cancer status postmastectomy and chemotherapy
Uterine cancer status post hysterectomy
Diverticular disease
Status post breast reconstruction
History of
Aortic stent placement
Cataracts
Plan
Events from ICU reviewed, transferred to floors 05/25
Extubated 05/23/2024, currently stable on RA
Has not noticed worsening SOB
Recurrent pleural effusion s/p thora x 2
06/18/24 650mL
9/21/24 750mL
Fluid studies reviewed: Pleural fluid 06/15/24: pH 7.41 - TP 3.8 - LDH 386 - Culture neg - Cyto pending
Serum TP 5.6, LDH 300
Results are mostly indicating exudative fluid, likely parapneumonic tho culture negative since being on abx
Repeat CXR in AM showing worsening L sided pleural effusion but would hold off on tapping, as prior taps were minimal
The fluid appears worsened overlying compressive atelecasis on CT imaging
Recheck proBNP >6000
Will try lasix daily and continue rehabbing
Can repeat CXR in next 24-48 hours
Imaging reviewed, small area of effusion with compressive atelectasis
Reviewed her best IS effort, <500
Encouraged more effort, deep breathing
Continue acapella and nebs
Airway clearance
Status post exploratory laparotomy for acute diverticulitis with perforation
Surgical correspondence/operative reports reviewed
Ostomy care
Follow drain output
Septic shock/metabolic acidosis-resolved.
Maintained on IV ertapenem
Needs OOB/Ambulation/PT
Physical therapy/Occupational Therapy consults
DVT prophylaxis with SCDs/heparin subcu
Reviewed case with friend today at bedside
Reviewed case with son extensively at bedside yesterday
Diagnostic Data
CXR 06/18/24- 1. Improved left pleural effusion following thoracentesis.
2. No pneumothorax.
CT AP 06/17/24- LOWER CHEST: Large left pleural effusion with adjacent atelectasis, only partially visualized. Partially visualized bilateral breast implants. Trace pericardial fluid is noted.. Right lung bases clear.
Lower abdominal drainage catheter is in satisfactory positioning within the anterior peritoneal cavity. There is no overt fluid collection within the anterior peritoneal cavity, but rather strandy fluid with gas foci. This is relatively unchanged
compared to the recent CT. Contrast administered through this catheter prior to CT acquisition surrounds the pigtail catheter, but does not extend into the bowel lumen. Findings are consistent with no bowel fistula.
Left upper quadrant drainage catheter is in satisfactory position within a left upper quadrant fluid collection. Interval diminution in size of the left upper quadrant fluid collection now measuring 8.8 x 8.8 cm compared to 10.4 x 9.5 cm previously.
ECHO 12/20/21- Normal left ventricular size and systolic function. No regional wall motion abnormalities are seen. LV ejection fraction is 60-65%. Mild concentric left ventricular hypertrophy. Mild mitral regurgitation. Aortic coarctation stent
history with peak/mean gradients 22/10mmHg. No prior study available for comparison.
-----
Total time spent on this encounter __51__ includes review of history, physical exam, medications, laboratory data, personal review of imaging, extensive review of outpatient records, discussion with care team and respiratory therapy.
Subjective Data
-
Date of Service:
Date of Service: June 21, 2024
Chief Complaint: Pulmonary Follow Up
Subjective:
No acute events ON, remains stable on RA
Still mostly sedentary
Friend at bedside
Objective Data
Data Reviewed
Vital Signs / I&O / Oxygen:
Vital Signs
Temp Pulse Resp BP Pulse Ox
97.6 F 111 16 161/80 92
06/21/24 07:40 06/21/24 09:01 06/21/24 08:30 06/21/24 09:01 06/21/24 08:30
Intake and Output
06/20/24 06/21/24 06/22/24
06:59 06:59 06:59
Intake Total 2400 / 2400 480 / 480
Output Total 60 / 60 835 / 835
Balance 2340 / 2340 -355 / -355
SaO2 [A/C] 97
SaO2 92
Nasal Cannula flow liters per 3
minute
Physical Exam
General: Comfortable and Other (NAD)
HEENT: Normocephalic, Anicteric and Moist Mucous Membranes
Cardiovascular: S1-S2 and Regular Rhythm
Respiratory: Clear (overall diminished) and Non-Labored Respirations
GI: Soft, Non Distended, Non Tender and Other (ostomy in place)
Neurology: Awake, Alert, Oriented, AO x 3 and No Motor Deficits
Skin: Warm, Dry and Good Color
Labs/Micro/Reports
Lab Data
06/21/24 06:04
06/21/24 06:04
Microbiology
06/16/24 13:28 Blood/Venous Blood Culture - Preliminary
No Growth in 4 days- Final report to follow
06/15/24 13:43 Pleural Fluid Body Fluid Culture - Final
No Growth After 72 Hours
06/15/24 13:43 Pleural Fluid Gram Stain - Final
--- NOTE | 2024-06-21 09:52 | WOUNDNOTE ---
WOC RN NOTE: Patient in bed with air cushion under buttock/sacral area. L abdominal stoma flush and pink. No stool in pouch currently. Peristomal skin intact. Reinstructed patient how to open/close pouch, change appliance using Vineet wafer #
[id number], Mario seal and Vineet pouch #[id number]. Patient practiced emptying pouch with clean pouch. Positive reinforcement given. Sacral wound appears with necrotic white base and macerated peristomal skin. Patient reports wound is sore if she sits too
long in chair. Wound care with Honey Gel remains appropriate. Will add to apply sure-prep around wound. Discussed with patient importance of continued off-loading and repositioning as well as good nutrition with high protein foods. This senior technical writer
called [employer] for new bariatric air cushion as patient feels her current one is not providing enough pressure relief. Instructed patient how to use bariatric air cushion when in bed. Plan is to limit time in chair to 1.5 hours BID max with air cushion.
Plan is for SNF. RN updated and orders confirmed with hospitalist. Plan is for SNF. Stoma is stable with current treatment plan. Will sign off from ostomy care/teaching. machine rug cleaner's may change ostomy appliance Monday or Monday.
--- NOTE | 2024-06-21 10:12 | CM ---
Addendum entered by Janett Gutierres 06/21/24 14:40:
Patient assessed by Dr. Peres per physician and patient declined by [facility] at this time. Recommendation is for SNF level. Patient accepted by several facilities and await physician recommendation when medically appropriate at this time. CM will
continue to follow for discharge planning needs.
Addendum entered by Janett Gutierres 06/21/24 12:18:
CM spoke with Terri from / and she will call to patient and family to resolve issue with insurance ID cards. [phone]
Original Note:
Patient seen at bedside, patient resting. CM updated physician that [facility] requested referral, awaiting consult. CM will continue to follow for discharge planning needs.
Plan; SNF vs Acute rehab pending assessments
--- NOTE | 2024-06-21 10:14 | WOUNDNOTE ---
WO RN NOTE: Patient in bed with air cushion under buttock/sacral area. L abdominal stoma flush and pink. No stool in pouch currently. Peristomal skin intact. Reinstructed patient how to open/close pouch, change appliance using Vineet wafer #
[id number], Mario seal and Vineet pouch #[id number]. Patient practiced emptying pouch with clean pouch. Positive reinforcement given. Sacral wound appears with necrotic white base and macerated peristomal skin. Patient reports wound is sore if she sits too
long in chair. Will change wound care to Santyl to begin on 06/22. Will add to apply sure-prep around wound. Discussed with patient importance of continued off-loading and repositioning as well as good nutrition with high protein foods. This screenplay writer
called [facility] for new bariatric air cushion as patient feels her current one is not providing enough pressure relief. Instructed patient how to use bariatric air cushion when in bed. Plan is to limit time in chair to 1.5 hours BID max with air cushion.
Plan is for SNF. RN updated and orders confirmed with hospitalist. Plan is for SNF. Stoma is stable with current treatment plan. Will sign off from ostomy care/teaching. 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
--- NOTE | 2024-06-21 10:54 | CON.MD ---
Consultation - Medical
-
Referring Provider:�Dr. Cosmo Church
Chief Complaint:�Debility
�
History of Present Illness:�58-year-old female with PMH (as below) presented to [facility] on 05/20/2024 with abdominal pain. She had a urinary tract infection earlier in the month with bacteremia. CT scan of the abdomen noting acute
sigmoid diverticulitis with concern for teodoro perforation. Found with septic shock and continued on antibiotics. On 05/22/2024 she had a Barbour's procedure with sigmoidectomy and colostomy. Extubated 05/23/2024. Required 1 unit of PRBCs. Noted
with acute kidney injury. Noted with likely perisplenic hematoma. Developed sacral pressure injury, also with iatrogenic volume overload requiring diuresis. On 06/10/2024 she had IR guided CT abscess drainage draining 50 mL of purulent fluid. On
06/15/2024 she had a left thoracentesis with 750 mL of cloudy yellow pleural fluid with procedure stopped secondary to pain. Repeat thoracentesis 06/18/24 over 650 mL of clear fluid.
�
Past Medical History:�Hypertension, type 2 diabetes, obesity, coarctation of the aorta, breast cancer status postmastectomy and chemotherapy, uterine cancer status post hysterectomy, diverticular disease.
Procedure History:�Bilateral mastectomies and breast reconstructions, total abdominal hysterectomy, x 2, aortic stent placement, cataracts
Family History:�Mother with colon cancer
�
Social History:�
Functional Level Premorbidly:�Using a scooter for longer distances at home, was going up the stairs on her knees.
Functional Level Currently:�Dependent for toileting and lower extremity self-care, mod assist for bed mobility. Max assist x 2 for transfers. Requiring Irma lift.
�
Tobacco:�Denies�
Alcohol:�Denies�
Drug use:�Denies�
�
Lives with:�Son
24-hour assistance available:�No
Number of floors:�2�split-level
# steps to enter:�1
# steps to second floor: 5+12
Potential First floor set up:�Possibly
Driving:�Yes
Occupation:�Retired
�
�
Allergies:�
Allergy/AdvReac Type Severity Reaction Status Date / Time
diphtheria, pertussis, Allergy Unknown Verified 05/19/24 19:20
tetanus vacc
gentamicin Allergy Hearing Verified 05/28/24 17:40
loss
�
Review of Systems:�
Constitutional: (x) abNormal _fatigue
Eye: (x) Normal _
Ear/Nose/Throat: (x) abNormal _difficulty with hearing chronically
Respiratory: (x) Normal _
Cardiovascular: (x) Normal _
Gastrointestinal: (x) abNormal _ostomy
Genitourinary: (x) Normal _
Musculoskeletal: (x) abNormal _generalized weakness, severe arthritis bilateral knees and need to be replaced, left rotator cuff problem that needs surgery, lumbar disc disease
Integumentary: (x) Normal _
Neurologic: (x) Normal _
Psychiatric: (x) Normal _
Endocrine: (x) Normal _
Hematologic/Lymphatic: (x) Normal _
Allergic/Immunologic: (x) Normal _
�
Medications:�
Active Current Visit Medication List
Category Date Time Status
0.9% Sodium Chloride [Nss (Preservative Free)] Med 05/28/24 17:36 Active
0.25 ml IV Q4HPRN PRN
Acetaminophen [Tylenol] Med 05/25/24 19:26 Active
650 mg PO Q6HPRN PRN
Albuterol Nebs [Ventolin Nebules] Med 06/19/24 20:00 Active
2.5 mg INH R TID
Benzocaine/Menthol [Anesthetic Lozenge] Med 05/24/24 16:59 Active
1 lozenge PO Q4HPRN PRN
Collagenase [Santyl Ointment] Med 06/22/24 08:00 Active
See Dose Instructions TOPICAL DAILY
Dapagliflozin [Farxiga] Med 05/29/24 10:00 Active
10 mg PO DAILY
Dextrose 50%-Water [Dextrose 50% Syringe] Med 05/25/24 10:08 Active
12.5 grams IV [id number] PRN
Docusate Sodium [Colace] Med 06/17/24 13:00 Active
100 mg PO BID
Enoxaparin Sodium [Lovenox] Med 06/02/24 18:00 Active
40 mg SC QPM
Ertapenem [Invanz] 1,000 mg Med 06/16/24 12:00 Active
0.9% Sodium Chloride [Nss] 50 ml
IV Q24H
Flush (0.9% Sodium Chloride) [Flush (Nss)] Med 06/20/24 11:00 Active
See Dose Instructions IV PER PROTOCOL
Gabapentin [Neurontin] Med 06/15/24 16:00 Active
100 mg PO TID
Glucagon [GlucaGen] Med 05/25/24 10:08 Active
1 mg IM PRN PRN
HYDROmorphone [Dilaudid] Med 06/15/24 08:56 Active
0.5 mg IV Q3HPRN PRN
HydrALAZINE [Apresoline] Med 05/31/24 08:02 Active
10 mg IV Q6HPRN PRN
Insulin Aspart Corrective Mod [Novolog Flexpen-Moderate Med 05/26/24 20:03 Active
Resistance]
See Protocol SC AC
Insulin Aspart Pen [Novolog Flexpen] Med 05/29/24 11:30 Active
4 units SC AC
Insulin Glargine Lantus [Lantus] 8 units Med 05/28/24 08:00 Active
Subcutaneous Insulin Syringe [Syringe-Insulin] 0 unit
SC DAILY
Lorazepam [Ativan] Med 05/28/24 17:36 Active
0.5 mg IV Q4HPRN PRN
Losartan [Cozaar] Med 05/28/24 11:00 Active
50 mg PO BID
Meloxicam [Mobic] Med 06/15/24 09:00 Hold
15 mg PO DAILY
Metaxalone [Skelaxin] Med 06/16/24 08:57 Active
800 mg PO Q8HPRN PRN
Metoprolol [Lopressor] Med 06/13/24 20:00 Active
100 mg PO BID
Miconazole Nitrate [Desenex/Mitrazol/Zeasorb] Med 06/02/24 20:00 Active
See Dose Instructions TOPICAL BID
NIFEdipine EXTENDED RELEASE [Procardia Xl (Extended Med 06/02/24 13:00 Active
Release)]
30 mg PO BID
Non-Formulary Item Med 06/19/24 15:00 Active
See Dose Instructions SC WEEKLY
Pantoprazole [Protonix] Med 06/01/24 08:00 Active
40 mg PO DAILY
Rosuvastatin Calcium [Crestor] Med 06/14/24 18:00 Active
30 mg PO QPM
Simethicone [Mylicon] Med 05/25/24 19:26 Active
80 mg PO QIDPRN PRN
Tramadol HCl [Ultram] Med 06/15/24 08:56 Active
50 mg PO Q6HPRN PRN
�
Vitals:�
Temp Pulse Resp BP Pulse Ox
97.6 F 111 16 161/80 92
06/21/24 07:40 06/21/24 09:01 06/21/24 08:30 06/21/24 09:01 06/21/24 08:30
Height 5 ft 6 in
Actual Weight 93.304 kg
Body Mass Index (BMI) 33.2
�
Physical Exam:�
General Appearance/Observation: Well-developed, well-nourished female in no apparent distress.�
Pain/Comfort Assessment: Denies�
Mood/Affect: Appropriate�
�
Integumentary/Operative Site:�Sacral pressure wound not visualized
�
Eyes: Conjunctiva/Lids: normal���� Pupils: pupils equal round and reactive to light and Accommodation�
Ears/Nose/Throat: oral mucosa moist,� throat clear.������������ Lips/Teeth/Gums: normal�
Neck: No muscle spasm or tenderness�
Cardiovascular: Heart: regular, no murmur�
Pulses: dorsalis pedis 2+ bilaterally�
Respiratory: Respiratory Effort/Chest Expansion: normal������� Auscultation: Clear to auscultation bilaterally�
Gastrointestinal: abdomen not tender, no distension, normal abdominal bowel sounds, ostomy not visualized
Genitourinary: No Ontiveros�
Extremities:�Edema: Minimal nonpitting bilateral lower extremity, no calf tenderness
�
Neurology Exam:
Orientation: Alert, Oriented to self, Time, Place�
Memory: Intact for recent medical concerns
Comprehension: Intact
Two step command: Intact
Cranial Nerves:
�� CNII:�Pupillary light reflex: Intact����
�� CN III, IV, : Extraocular muscles: Intact�
�� CN VII:�Facial movement: Symmetric
�� CN VIII:�Hearing: Normal
�� CN IX/X:�Speech & swallow: Normal
�� CN XI:�Shoulder shrug: Symmetric
�� CN XII:�Tongue protrusion: Midline
Sensory:
�� Light touch: Intact in bilateral upper and lower extremities
�
Reflexes:
�� Babinski: Down going bilaterally
�� Clonus: None
�� Elaine: Negative bilaterally�
Cerebellar: Dysmetria/Ataxia: None�
Musculoskeletal: Motor: (Manual muscle scale 0-5)�
Muscle SA EF WE EE FF FA HF KE DF EHL PF
Right� 4 4 4 4 4 3 2 4 4 4
Left 2 4 4 4 4 3 2+ 4 4 4
�
Tone: Normal in all extremities�
Range of Motion: Limited range of motion left shoulder.
�
Lab Results
Laboratory Data
06/21/24 06:04
06/21/24 06:04
PT 16.1 Sec (11.4-14.6) H 05/22/24 19:57
INR 1.28 05/22/24 19:57
APTT 28.3 Sec (23.4-35.0) 05/22/24 19:57
Total Bilirubin 0.5 mg/dl (0.2-1.3) 06/15/24 07:40
AST 35 U/L (14-36) 06/15/24 07:40
ALT 21 U/L (0-35) 06/15/24 07:40
Alkaline Phosphatase 74 U/L (38-126) 06/15/24 07:40
Total Protein Cancelled 06/15/24 13:43
Albumin 2.6 g/dl (3.5-5.0) L 06/15/24 07:40
�
Diagnostic Results:�as per HPI�
�
Assessment
58-year-old F PMH (Hypertension, type 2 diabetes, obesity, coarctation of the aorta, breast cancer status postmastectomy and chemotherapy, uterine cancer status post hysterectomy, diverticular disease) with septic shock from acute sigmoid
diverticulitis causing perforation s/p 05/22/2024 Barbour's procedure with sigmoidectomy and colostomy, anemia requiring multiple transfusions, sacral pressure injury, volume overload, 06/15 and 06/18 left thoracentesis with ADL and ambulatory
dysfunction.
Plan�
PM&R�PT/OT to increase independence with ADLs, improve balance, coordination, endurance, strength, mobility, community reintegration, decreased burden of care on others and family education.�
�
Debility: PT and OT recommending shelter facility. Patient requiring assist of 2, has bilateral knee pain requiring knee replacements.
Septic shock from perforated diverticuli s/p sigmoidectomy and colostomy: Ertapenem per ID. Ostomy education.
HTN: Nifedipine XL 30 mg twice daily, losartan 50 mg twice daily, metoprolol 100 mg twice daily monitor closely�
HLD: Statin
DM II: Accu-Cheks, insulin sliding scale, Farxiga, Mounjaro.�
Postoperative anemia: Required multiple transfusions, monitor.
Bilateral knee arthritis: Severe per patient: Needs knee replacements. Recent cortisone injection.
Psych: Psychology consult.� Monitor mood, medications as needed.�
Sacral pressure ulcers:� Vitamin C, zinc, multivitamin.� Weight shifts in wheelchair and bed.� Roho cushion.� Pressure-relief boots.� Lotrimin to fungal rash over buttocks and inguinal region as needed.
Pain: acetaminophen, tramadol, or oxycodone as needed.� Stop IV medications and make sure patient is stable on oral medication in order to be transferred to rehab. On gabapentin 100 mg 3 times daily. Meloxicam held. Getting metolazone 800 mg as
needed.
Bowel: Monitor ostomy output
Bladder: Monitor urine output
GI Prophylaxis: Pantoprazole�
DVT Prophylaxis: Mechanical and Lovenox
Pulmonary: Pleural effusion s/p left thoracentesis x 2. Incentive spirometry as allowed by pulmonary, albuterol as needed.
Obesity: Continue to day camp counselor patient about diet adjustments to control obesity. Body habitus and increased force to move body and extremities causes further difficulty with functional tasks.�
Safety: Continue to reinforce assistance with all transfers.�
Code Status:� Full code
Dispo�(date/plan/equipment needs): Home with family care.� Social history reviewed.�
Functional and Medical Goals:�Modified Independent with ADL�s, ambulation, transfers�
Discharge Destination:�alf facility, patient not able to tolerate 3 hours of therapy at this time. Reviewed therapy notes. Spoke with patient in depth regarding levels of rehab. At this time she is best suited for a shelter
facility, if she happens to continue to get stronger and doing better she could be considered for transfer to an acute rehab program prior to going home if warranted.
-A total of 80 minutes were spent with the patient preparing for the evaluation, obtaining history, performing examination and evaluation, counseling, data review, case management, care coordination, tape recorder mechanic, and EMR documentation. Case
discussed with hospitalist, patient, her friend, nursing. Reviewed goals of care, available resources and best ways for her to get back home independent and safe.
�
Summary of recommendations:
-�Discharge Destination:�alf facility
Debility: PT and OT recommending shelter facility. Patient requiring assist of 2, has bilateral knee pain requiring knee replacements.
Septic shock from perforated diverticuli s/p sigmoidectomy and colostomy: Ertapenem per ID. Ostomy education.
HTN: Nifedipine XL 30 mg twice daily, losartan 50 mg twice daily, metoprolol 100 mg twice daily monitor closely�
HLD: Statin
DM II: Accu-Cheks, insulin sliding scale, Fernando Mckoy.�
Postoperative anemia: Required multiple transfusions, monitor.
�
Thank you for allowing me to care for your patient. Please contact me with any questions or concerns.
[2024-06-21 11:10] LABS: NT-proBNP 6420 pg/ml
[2024-06-21 11:10] LABS: Glucose - Point of Care 116 mg/dl (70-99)
--- NOTE | 2024-06-21 11:32 | W.PN.ID1 ---
Date of Service
Date of Service: June 21, 2024
Today's Communication
Continue abx.
Assessment / Plan
# Fevers
- onset 06/15
- temp curve trending down.
# Leukocytosis
- improved
# Diverticulitis with diverticular perforation
- s/p diverting colostomy (05/22/2024).
- Intra-op splenic capsular tear with subsequent hematoma development
# LUQ infected hematoma
-s/p drain placement (06/14/24) - bloody
- Fluid cx: ESBL E. coli x2
# Anterior abdominal collection/abscess
- s/p drainage (06/10/24)
- Cultures with Klebsiella pneumoniae and ESBL E. coli
# Left pleural effusion
- s/p thoracentesis 750cc cloudy yellow fluid (06/15/24)
- exudative
Hx Bacteroides bacteremia; cleared
HTN
DM
Hx breast CA
Hx endometrial CA
Diverticulitis
Recommendations:
Blood cultures NG.
Temp curve overall improving.
Continue with ertapenem.
Follow drain output.
Continue to follow white count and temperature curve.
����������������������������������������������������������
Chief Complaint
-: Other (Abdominal infection)
Subjective / Review of Systems
Review of Systems: No Fever and No Chills
Vital Signs / Physical Exam
Vital Signs
Vital Signs
Temp Pulse Resp BP Pulse Ox
97.6 F 111 16 161/80 92
06/21/24 07:40 06/21/24 09:01 06/21/24 08:30 06/21/24 09:01 06/21/24 08:30
Physical Exam
Constitutional: No Acute Distress, Comfortable, Chronically Ill and Non-toxic
Eyes: Sclera Anicteric
Cardiovascular: S1/S2; Negative S3/S4 or Murmur
Pulmonary: Non Labored
Gastrointestinal: Soft, Non Tender, Non Distended, Normal Bowel Sounds and Other (Midline incision dry, (+) eschars w/o surrounding erythema; LUQ JODIE drain bloody output (decreased), RLQ JODIE drain- serosanguinous fluid)
Extremities: Edema; Negative Erythema
Skin: Warm and Dry; Negative Rash
Neurological: Awake, Alert and AO x 3
Psychological: Calm
Lines: PICC (LUE intact)
Objective Data
Lab Data
Lab Results
06/21/24 06:04
06/21/24 06:04
PT 16.1 Sec (11.4-14.6) H 05/22/24 19:57
INR 1.28 05/22/24 19:57
APTT 28.3 Sec (23.4-35.0) 05/22/24 19:57
Estimated Creat Clear 115 ml/min 06/21/24 06:04
Lactic Acid 1.2 mmol/L (0.7-2.0) 05/20/24 22:09
Total Bilirubin 0.5 mg/dl (0.2-1.3) 06/15/24 07:40
AST 35 U/L (14-36) 06/15/24 07:40
ALT 21 U/L (0-35) 06/15/24 07:40
Alkaline Phosphatase 74 U/L (38-126) 06/15/24 07:40
Most recent labs reviewed.
Micro Results:
06/16/24 13:28 Blood Culture - Preliminary
Blood/Venous No Growth in 4 days- Final report to follow
06/15/24 13:43 Body Fluid Culture - Final
Pleural Fluid No Growth After 72 Hours
Gram Stain - Final
06/14/24 18:10 Body Fluid Culture - Final
Fluid Escherichia coli - ESBL
Escherichia coli - ESBL#2
Gram Stain - Final
06/09/24 10:30 Blood Culture - Final
Blood/Venous No Growth - Final Report
06/09/24 10:29 Blood Culture - Final
Blood/Venous No Growth - Final Report
06/10/24 12:54 Wound Culture - Final
Abdomen Escherichia coli - ESBL
Klebsiella pneumoniae
Gram Stain - Final
06/02/24 12:02 Blood Culture - Final
Blood/Venous No Growth - Final Report
06/02/24 09:36 Blood Culture - Final
Blood/Venous No Growth - Final Report
05/22/24 08:00 Wound Culture - Final
Abdomen Escherichia coli - ESBL
Gram Stain - Final
05/22/24 08:00 Anaerobic Culture - Final
Abdomen
05/19/24 20:48 Blood Culture - Final
Blood/Venous Bacteroides distasonis
Gram Stain - Final
05/21/24 17:56 Blood Culture - Final
Blood/Venous No Growth - Final Report
Imaging:
06/17/2024 CT abdomen/pelvis: Lower abdominal drainage catheter is in satisfactory positioning within the anterior peritoneal cavity. There is no overt fluid collection within the anterior peritoneal cavity, but rather strandy fluid with gas foci.
This is relatively unchanged compared to the recent CT. Contrast administered through this catheter prior to CT acquisition surrounds the pigtail catheter, but does not extend into the bowel lumen. Findings are consistent with no bowel fistula.
Left upper quadrant drainage catheter is in satisfactory position within a left upper quadrant fluid collection. Interval diminution in size of the left upper quadrant fluid collection now measuring 8.8 x 8.8 cm compared to 10.4 x 9.5 cm previously.
06/04/2024 CT abdomen/pelvis with contrast: Heterogeneous collection in the left upper quadrant, superior to the spleen and upper stomach. The patient has a history of splenic laceration during splenic flexure takedown, and this most likely
represents a hematoma. Measurements without significant change from examination of May 27, 2024. Although this was not a CT angiography examination, there is no CT evidence to suggest significant active bleeding. There is fluid in the left
paracolic gutter and extending slightly medially in the left lower abdomen adjacent to small bowel loops. This fluid has slightly increased since examination May 27, 2024. There is a drainage catheter with its tip is in the inferior aspect of
this fluid collection. There is an unusual ovoid fat, fluid, and air density in the midline abdomen posterior to the abdominal wall. This is felt to likely represent necrotic omentum, and superimposed infection cannot be excluded. There is no
evidence of a drainable collection at this time. Moderate subcutaneous edema. This is slightly improved from examination of May 27, 2024.
05/27/2024 CT abdomen/pelvis with contrast: There is 7 x 8 x 3 cm intermediate density heterogeneous left subdiaphragmatic fluid collection containing a small amount of extraluminal gas. Differential diagnosis for this collection includes hematoma
and abscess. Sigmoidectomy with left lower quadrant colostomy. Moderate ascites including areas of loculated fluid in the abdomen and pelvis. Small left pleural effusion with compressive atelectasis at the posterior left lung base. Please see
full dictation for additional detail.
[2024-06-21] MEDS: INVANZ 60 MG IV (11:48)
[2024-06-21] MEDS: LASIX 40 MG IV (12:40)
--- NOTE | 2024-06-21 14:09 | W.PN.UPDATE ---
Update Note
Progress Note Update
I saw and evaluated the patient. I reviewed the resident�s note and agree with findings and plan as documented in the resident�s note.
Patient denying of having any abd pain/nausea/vomiting overnight
remains febrile Tmax of 100.4F.
Good stomy output.
No dyspnea, have some cough on deep inspiration, not on o2.
Persistent episodic fever-- ongoing--on Ertapenem (day 20)-- possible sources in LUQ collection (drain placement 06/14/24 shows fluid culture revealing ESBL E. coli x 2)--fistulogram per IR without signs of fistula--ID following and help appreciated.
Acute sigmoid diverticulitis with perforation, s/p shock---apprec colorectal surgery--exp lap with ostomy and JODIE drain (still in place) on 05/24/24 (post op day 26)--Patient tolerating 1800-calorie diabetic diet well
Exudative pleural effusion -- s/p thoracentesis 06/14 with 750 mls drained-- CXR with recurrent effusion--apprec IR for repeat thoracentesis, 650 ml clear fluid on 06/18/24--repeat CXR showed small effusion - not dyspnic/hypoxic, monitor.- started
back on IV lasix 40mg/d, monitor weight/cr
Bacteroids distasonis bacteremia with ESBL E. coli positive wound cultures (peritonitis)--positive intraoperative wound cultures with Intermittent fevers--thought to be due to possible Perisplenic hematoma---apprec ID--cont Invanz--day 20
Acute blood loss anemia--s/p 3 units PRBC this admission--JODIE with serosanguineous drainage--follow HGB--transfuse if HGB < 7--HGB drop from 8.3 to 7.3 with increased pleural effusion--not bloody by tap--transfuse pRBC--HGB up to 8.6
edema--bilateral LE--weights up (99kg on admission, down to 96.2Kg 06/17/24)---pt developed contraction alkalosis-
TIFFANI --resolved
Hyponatremia--likely volume overload--resolved
Acute transaminitis--likely due to all above--resolved
Type 2 DM--insulin requiring --Hemoglobin A1c of 7.4--apprec DM [employer] ARCHITECT assistance
H/o Coarctation of the Aorta--s/p prior aortic stenting--Continue ASA--Monitor blood pressure
HLD--cont statin
Sacral Pressure Wound Stage 3--most likely due to pressure/position (pt does not really seem motivated to move)--apprec wound care
DVT Prophylaxis: Heparin subq
Code Status-- Full Code
Air Brake Adjuster evaluated and patient not appropriate for acute rehab, will need to look into SNF rehab ,.
[2024-06-21 15:25] VITALS: BP 160/86
[2024-06-21 16:36] LABS: Glucose - Point of Care 137 mg/dl (70-99)
[2024-06-21 16:58] VITALS: BP 137/86
[2024-06-21] MEDS: LOVENOX 40 MG SC (17:07)
[2024-06-21] MEDS: CRESTOR 30 MG PO (17:07)
[2024-06-21] MEDS: TYLENOL 650 MG PO (21:16)
[2024-06-21 21:57] LABS: Glucose - Point of Care 118 mg/dl (70-99)
[2024-06-21 23:23] VITALS: BP 138/69
[2024-06-22 06:10] LABS: % Basophils 0.4 % (0-2); % Eosinophils 1.5 % (0-6); % Immature Granulocytes 0.8 % (0-0.5); % Lymphocytes 11.9 % (20.5-51.1); % Monocytes 8.6 % (1.7-9.3); % Neutrophils 76.8 % (42.2-75.2); Absolute Eosinophils 0.2 10^3/uL (0-0.7); Absolute Immature Granulocytes 0.1 10^3/uL (0-0.05); Absolute Lymphocytes 1.3 10^3/uL (1.2-3.4); Absolute Monocytes 0.9 10^3/uL (0.1-0.6); Absolute Neutrophils 8.4 10^3/uL (1.4-6.5); Hematocrit 26.8 % (37.0-47.0); Hemoglobin 8.7 g/dL (12.0-16.0); Mean Corp Hgb Conc. 32.5 g/dL (33.0-37.0); Mean Corpuscular Hgb 26.9 pg (27.0-31.0); Mean Corpuscular Volume 82.7 fL (81.0-99.0); Mean Platelet Volume 10.3 fL (7.4-10.4); Nucleated Red Blood Cells % 0 %; Platelet Count 420 10^3/uL (130-400); Red Blood Cell Count 3.24 10^6/uL (4.20-5.40); Red Cell Dist. Width 16.2 % (11.5-14.5); White Blood Cell Count 10.9 10^3/uL (4.8-10.8)
[2024-06-22 06:21] LABS: Blood Urea Nitrogen 11 mg/dl (7-17); Calcium 8.4 mg/dl (8.4-10.2); Carbon Dioxide 31 mmol/L (22-30); Chloride 100 mmol/L (98-107); Estimated Creatinine Clearance 115 ml/min; Glucose 106 mg/dl (70-99); Potassium 3.6 mmol/L (3.5-5.1); Sodium 140 mmol/L (135-145); eGFR > 60.00
[2024-06-22 07:40] VITALS: BP 155/89
[2024-06-22] MEDS: VENTOLIN NEBULES 2.5 MG INH ×3 (07:47→20:03)
[2024-06-22 07:49] LABS: Glucose - Point of Care 112 mg/dl (70-99)
--- NOTE | 2024-06-22 09:40 | W.PN.PUL3 ---
Today's Communication / Plan
-
Repeat CXR showing worsening L sided effusion --> check CT chest/Abd/pelvis tomorrow without contrast
Repeat proBNP >6000, added daily lasix
PT/OT/PM&R
Encourage use of IS
Continue abx per ID
Pain control
Assessment
-
58-year-old woman with past medical history significant for diverticular disease, hypertension, type 2 diabetes who presented to the emergency room complaining of abdominal pain. CT abdomen pelvis performed demonstrated diverticulitis with concern
for perforation. She was followed for 24th for 48 hours on antibiotics, repeat CT showed worsening intraperitoneal air s/p operating room for exploratory laparotomy. She underwent exploratory laparotomy, Barbour's resection on 05/22/2024.
Subsequently in the ICU, intubated, sedated from mechanical ventilation. Transferred to floor 05/25.
We are asked for re-eval for recurrent pleural effusions 06/19/24.
Impression:
Recurrent pleural effusion s/p thora x 2 -effusion started to build up following her perforated viscus and is likely due to translocation of fluid across diaphragm
Acute abdomen: Acute diverticulitis with bowel perforation
CT abdomen pelvis reviewed: Perforated diverticula with intraperitoneal air.
Status post exploratory laparotomy 05/22/2024: Barbour's procedure with sigmoidectomy + colostomy.
Postoperative mechanical ventilation
Extubated 05/23/2024
Septic shock � shock state has resolved
Acute kidney injury metabolic acidosis � both have resolved
Anion gap metabolic acidosis � resolved
Hyperglycemia - resolved
Postoperative anemia due to blood loss/acute
Conditions present prior admission:
Type 2 diabetes
Hypertension
Obesity
History of coarctation of the aorta
Breast cancer status postmastectomy and chemotherapy
Uterine cancer status post hysterectomy
Diverticular disease
Status post breast reconstruction
History of
Aortic stent placement
Cataracts
Plan
Events from ICU reviewed, transferred to floors 05/25
Extubated 05/23/2024, currently stable on RA
Has not noticed worsening SOB unless she exerts herself
Recurrent pleural effusion s/p thora x 2
06/18/24 650mL
06/15/24 750mL
Fluid studies reviewed: Pleural fluid 06/15/24: pH 7.41 - TP 3.8 - LDH 386 - Culture neg - Cyto negative for malignancy with acute inflammatory cells present
Serum TP 5.6, LDH 300
Results are mostly indicating exudative fluid, likely parapneumonic vs translocation from intra-abdominal process tho culture negative since being on abx; favor the latter as she clinically has no signs of pneumonia
Repeat CXR showing worsening L sided pleural effusion but would hold off on tapping, as prior taps were minimal
The fluid appears worsened overlying compressive atelectasis on CT imaging
Recheck proBNP >6000
On IV Lasix; check CT chest tomorrow morning to reassess left-sided pleural effusion, and then will consider repeat thoracentesis versus chest tube considering the rate this fluid has been reaccumulating
Imaging reviewed, small area of effusion with compressive atelectasis
Reviewed her best IS effort, <500
Encouraged more effort, deep breathing
Continue acapella and nebs
Airway clearance
Status post exploratory laparotomy for acute diverticulitis with perforation
Surgical correspondence/operative reports reviewed
Ostomy care
Follow drain output from midline JODIE drain + left subdiaphragmatic JODIE drain
Septic shock/metabolic acidosis-resolved.
Maintained on IV ertapenem as per ID
Needs OOB/Ambulation/PT
Physical therapy/Occupational Therapy consulted
DVT prophylaxis with SCDs/LMWH
Reviewed case with son at bedside today
Pulmonary service to continue following along
Diagnostic Data
CXR 06/18/24- 1. Improved left pleural effusion following thoracentesis.
2. No pneumothorax.
CXR 06/21/2024:
1. Left upper extremity PICC in position.
2. At least moderate left effusion and adjacent atelectasis, increased as compared with prior.
CT AP 06/17/24- LOWER CHEST: Large left pleural effusion with adjacent atelectasis, only partially visualized. Partially visualized bilateral breast implants. Trace pericardial fluid is noted.. Right lung bases clear.
Lower abdominal drainage catheter is in satisfactory positioning within the anterior peritoneal cavity. There is no overt fluid collection within the anterior peritoneal cavity, but rather strandy fluid with gas foci. This is relatively unchanged
compared to the recent CT. Contrast administered through this catheter prior to CT acquisition surrounds the pigtail catheter, but does not extend into the bowel lumen. Findings are consistent with no bowel fistula.
Left upper quadrant drainage catheter is in satisfactory position within a left upper quadrant fluid collection. Interval diminution in size of the left upper quadrant fluid collection now measuring 8.8 x 8.8 cm compared to 10.4 x 9.5 cm previously.
ECHO 12/20/21- Normal left ventricular size and systolic function. No regional wall motion abnormalities are seen. LV ejection fraction is 60-65%. Mild concentric left ventricular hypertrophy. Mild mitral regurgitation. Aortic coarctation stent
history with peak/mean gradients 22/10mmHg. No prior study available for comparison.
-----
Total time spent today was 52 minutes for this encounter. Time includes reviewing laboratory test/imaging results, reviewing pertinent medical records, obtaining and reviewing medical history, performing an appropriate exam, ordering medications,
tests and procedures. Time also includes documentation of this encounter, coordinating patient care and communicating with other healthcare professionals. Total time does not include separately billed tests performed on this date of service.
Subjective Data
-
Date of Service:
Date of Service: June 22, 2024
Chief Complaint: Pulmonary Follow Up
Subjective:
Patient seen and evaluated today bedside. Patient's son, Carlos, at bedside and all questions were answered. She is resting in bed on room air in no acute distress. She denies shortness of breath, chest pain, RIDER, fevers or chills. She did have
a fever last night to 100.5 �F. Seems to be having considerable weakness when she ambulates.
Review of Systems
General: Other (Negative unless mentioned above)
Objective Data
Data Reviewed
Vital Signs / I&O / Oxygen:
Vital Signs
Temp Pulse Resp BP Pulse Ox
99.2 F 91 16 155/89 92
06/22/24 07:40 06/22/24 09:50 06/22/24 07:48 06/22/24 09:50 06/22/24 07:48
Intake and Output
06/21/24 06/22/24 06/23/24
06:59 06:59 06:59
Intake Total 480 / 480 360 / 360
Output Total 835 / 835 1965 / 1965
Balance -355 / -355 -1605 / -1605
SaO2 [A/C] 97
SaO2 92
Nasal Cannula flow liters per 3
minute
Physical Exam
General: Respiratory Distress (negative), Comfortable, Chills (negative) and Other (NAD)
HEENT: Normocephalic, Anicteric and Moist Mucous Membranes
Cardiovascular: S1-S2
Respiratory: Wheeze (negative), Crackles (Left middle/left upper lung field), Rhonchi (negative), Non-Labored Respirations and Other (Diminished breath sounds in the left hemithorax)
GI: Soft, Distended (Abdominal obesity), Non Tender, Normal Bowel Sounds and Other (LLQ colostomy in place; midline JODIE drain in place with purulent fluid seen in bulb)
Neurology: Awake, Alert, Oriented, AO x 3 and Tremors (negative)
Skin: Warm, Dry, Good Color, Cyanosis (negative), Jaundice (negative) and Other (Left subdiaphragmatic JODIE drain in place with serosanguineous fluid seen in bulb)
Labs/Micro/Reports
Lab Data
06/22/24 05:44
06/22/24 05:44
Microbiology
06/16/24 13:28 Blood/Venous Blood Culture - Final
No Growth - Final Report
06/15/24 13:43 Pleural Fluid Body Fluid Culture - Final
No Growth After 72 Hours
06/15/24 13:43 Pleural Fluid Gram Stain - Final
[2024-06-22] MEDS: NOVOLOG FLEXPEN 4 UNITS SC ×3 (09:44→17:19)
[2024-06-22] MEDS: NOVOLOG FLEXPEN-MODERATE RESISTANCE SC ×2 (09:45→17:20)
[2024-06-22] MEDS: SANTYL OINTMENT 1 APPLIC TOPICAL (09:45)
[2024-06-22] MEDS: FARXIGA 10 MG PO (09:46)
[2024-06-22] MEDS: PROTONIX 40 MG PO (09:46)
[2024-06-22] MEDS: PROCARDIA XL (EXTENDED RELEASE) 30 MG PO ×2 (09:46→21:39)
[2024-06-22] MEDS: NEURONTIN 100 MG PO ×3 (09:47→21:39)
[2024-06-22] MEDS: LOPRESSOR 100 MG PO ×2 (09:47→21:38)
[2024-06-22] MEDS: COZAAR 50 MG PO ×2 (09:47→21:34)
[2024-06-22] MEDS: TYLENOL 650 MG PO ×2 (09:47→17:11)
[2024-06-22] MEDS: COLACE 100 MG PO ×2 (09:47→21:33)
[2024-06-22] MEDS: LANTUS 0.08 UNITS SC (09:49)
[2024-06-22] MEDS: LASIX 40 MG IV (09:50)
[2024-06-22] MEDS: DESENEX/MITRAZOL/ZEASORB 1 APPLIC TOPICAL ×2 (10:21→21:40)
[2024-06-22 12:19] LABS: Glucose - Point of Care 174 mg/dl (70-99)
[2024-06-22] MEDS: INVANZ 60 MG IV (12:36)
[2024-06-22] MEDS: NOVOLOG FLEXPEN-MODERATE RESISTANCE 1 UNITS SC (12:37)
--- NOTE | 2024-06-22 14:13 | W.PN.HOSP.TC ---
Today's Communication/Plan
-
continue f/u T curve
repeat cxr on monday
eventual snf rehab
Assessment / Plan
Assessment / Plan
Persistent episodic fever - Slowly improving
Infected LUQ hematoma - ESBL ecoli and Kleb PNA
-on Ertapenem (day 21)
-possible sources in LUQ collection (drain placement 06/14/24 shows fluid culture revealing ESBL E. coli x 2)
-fistulogram per IR without signs of fistula
-ID following and help appreciated.
Acute sigmoid diverticulitis with perforation, s/p shock
Bacteroids sp. bacteremia
-appreciate colorectal surgery
-exp lap with ostomy and JODIE drain (still in place) on 05/24/24
-Patient tolerating 1800-calorie diabetic diet well
-Perit
Exudative pleural effusion
-s/p thoracentesis 06/14 with 750 mls drained
-CXR with recurrent effusion
-appreciate IR for repeat thoracentesis, 650 ml clear fluid on 06/18/24
-repeat CXR showed small effusion
-not dyspneic/hypoxic, monitor.
-started back on IV lasix 40mg/d, monitor weight/cr
Acute blood loss anemia
-s/p 3 units PRBC this admission
-transfuse if HGB < 7
TIFFANI
-resolved
Hyponatremia
-likely volume overload--resolved
Acute transaminitis
-likely due to all above--resolved
Type 2 DM
-insulin requiring
-Hemoglobin A1c of 7.4
-apprec DM CONTINUOUS [employer] assistance
H/o Coarctation of the Aorta
-s/p prior aortic stenting
-Continue
HLD
-cont statin
Sacral Pressure Wound Stage 3
-most likely due to pressure/position (pt does not really seem motivated to move)
-apprec wound care
DVT Prophylaxis: Heparin subq
Code Status-- Full Code
Anticipated Discharge: > 48 hours
Subjective/Interval History
-
Date of Service: June 22, 2024
no new abd pain/nausea/vomiting
have some left lower rib cage pain
Tmax of 100.5F overnight
Objective Data
-
Labs:
Laboratory Results
06/22/24
05:44
WBC 10.9 H
Hgb 8.7 L
Hct 26.8 L
Plt Count 420 H
Sodium 140
Potassium 3.6
Chloride 100
Carbon Dioxide 31 H
BUN 11
Creatinine 0.6
Glucose 106 H
Calcium 8.4
Vital Signs:
Vital Signs
Temp Pulse Resp BP Pulse Ox
99.2 F 91 16 155/89 92
06/22/24 07:40 06/22/24 09:50 06/22/24 07:48 06/22/24 09:50 06/22/24 07:48
I&O
06/21/24 06/22/24 06/23/24
06:59 06:59 06:59
Intake Total 480 / 480 360 / 360
Output Total 835 / 835 1965 / 1965
Balance -355 / -355 -1605 / -1605
Review of Systems
-
Respiratory: Reports Cough and Pleurisy
Cardiac: Reports No Symptoms
Abdomen/GI: Reports No Symptoms
Physical Exam
-
General: No Apparent Distress and Comfortable
HEENT: Negative Oxygen
Respiratory: Clear to Auscultation
Cardiac: Regular Rhythm and S1/S2; Negative Murmur or Rub
GI: Soft, Nontender, Nondistended and Ostomy (Brown liquid stool)
Musculoskeletal: No Edema
Neuro: Awake, Alert, Oriented, No Motor Deficits and Nonfocal/Grossly Intact
Psych: Calm
[2024-06-22 15:40] VITALS: BP 144/77
[2024-06-22] MEDS: CRESTOR 30 MG PO (17:10)
[2024-06-22] MEDS: LOVENOX 40 MG SC (17:10)
[2024-06-22 17:15] LABS: Glucose - Point of Care 121 mg/dl (70-99)
--- NOTE | 2024-06-22 21:37 | W.PN.CRS1 ---
Today's Communication / Plan
-
Continue current care.
Assessment/Plan
-
POD 30.
1. WBC 10.9. Still with intermittent low grade temps. Source abdominal +/- pulmonary. Continue drain care. I am still concerned with possibility of colon leak/fistula to R drain given car appearance of drainage; although fistulogram and CT last
week showed no evidence for this. Surgical reentry at this point would be risky. Antibiotics per ID.
2. pulmonology input noted and appreciated.
3. appetite a bit diminished. Emphasized the benefits of nutrition.
4. deconditioned. Apparently also had sacral pressure sore per ET nursing evaluation. Encouraged OOB/PT. Eventual SNF.
Subjective Data
Procedure
05/22/2024- 1) exploratory laparotomy 2) Caridad's resection (sigmoidectomy with rectopexy)
Subjective Data
Date of Service: June 22, 2024
Seen by me late afternoon.
Appetite a bit diminished.
Denied abdominal pain with exception of area of left drain.
Objective Data
-
Vital Signs
Temp Pulse Resp BP Pulse Ox
100 F 76 16 144/77 93
06/22/24 15:40 06/22/24 20:07 06/22/24 20:07 06/22/24 15:40 06/22/24 20:07
Intake & Output
06/21/24 06/22/24 06/23/24
06:59 06:59 06:59
Intake Total 480 / 480 360 / 360 585 / 585
Output Total 835 / 835 1965 / 1965 1550 / 1550
Balance -355 / -355 -1605 / -1605 -965 / -965
Intake:
Oral fluids 480 / 480 360 / 360 540 / 540
IV piggybacks 45 / 45
Output:
Liquid stool amount 350 / 350
Colostomy 350 / 350
Drain Output (Total) 35 / 35 15 /
Left Upper Abdomen Placed in IR 5
Right Abdomen Placed in IR
Urine, Voided 450 / 450 1950 / 1950 1550 / 1550
Other:
Number of approximated MODERATE 4
amounts of urine
How many times incontinent 3 1
SATURATED amount urine
Lab Results
06/22/24 05:44
06/22/24 05:44
Physical Exam
-
General: No Acute Distress
Chest: Decreased Breath Sounds (at bases)
Cardiovascular: Sinus Tachycardia (borderline)
Abdomen: Non Distended, Non Tender and Other (colostomy viable with output: R drain with car output; L with appearance of old blood)
Incision: Clear, Dry, Intact and No Skin Erythema
[2024-06-22 21:45] LABS: Glucose - Point of Care 131 mg/dl (70-99)
[2024-06-22] MEDS: ULTRAM 50 MG PO (21:59)
[2024-06-22 23:20] VITALS: BP 166/85
[2024-06-23 06:21] LABS: Venous Blood Gas B.E. 9.5 mmol/L (-4 to +4); Venous Blood Gas HCO3 34.2 mmol/L (22-27); Venous Blood Gas O2 Sat % 99.9 %; Venous Blood Gas pCO2 47 mmHg (35-48); Venous Blood Gas pH 7.47 (7.32-7.43); Venous Blood Gas pO2 110 mmHg (30-50)
[2024-06-23] MEDS: VENTOLIN NEBULES 2.5 MG INH ×2 (07:12→13:41)
[2024-06-23 07:35] VITALS: BP 147/82
[2024-06-23 08:01] LABS: Glucose - Point of Care 130 mg/dl (70-99)
[2024-06-23] MEDS: PROTONIX 40 MG PO (09:46)
[2024-06-23] MEDS: NEURONTIN 100 MG PO ×3 (09:46→21:31)
[2024-06-23] MEDS: TYLENOL 650 MG PO ×3 (09:46→21:30)
[2024-06-23] MEDS: LOPRESSOR 100 MG PO ×2 (09:47→21:40)
[2024-06-23] MEDS: COLACE 100 MG PO ×2 (09:47→21:31)
[2024-06-23] MEDS: COZAAR 50 MG PO ×2 (09:47→21:40)
[2024-06-23] MEDS: FARXIGA 10 MG PO (09:47)
[2024-06-23] MEDS: PROCARDIA XL (EXTENDED RELEASE) 30 MG PO ×2 (09:47→21:40)
[2024-06-23] MEDS: LASIX 40 MG IV (09:48)
[2024-06-23] MEDS: SANTYL OINTMENT 1 APPLIC TOPICAL (09:48)
[2024-06-23] MEDS: NOVOLOG FLEXPEN-MODERATE RESISTANCE SC (09:49)
[2024-06-23] MEDS: NOVOLOG FLEXPEN 4 UNITS SC ×3 (09:49→18:29)
[2024-06-23] MEDS: LANTUS 0.08 UNITS SC (09:50)
[2024-06-23] MEDS: DESENEX/MITRAZOL/ZEASORB 1 APPLIC TOPICAL ×2 (10:02→21:29)
--- NOTE | 2024-06-23 10:03 | W.PN.PUL3 ---
Today's Communication / Plan
-
CT chest today shows moderate size left-sided pleural effusion with clear right lung.
NPO past midnight for IR chest tube
Stop IV Lasix as right lung is clear, hence L-effusion is unlikely due to CHF
PT/OT/PM&R
Encourage use of IS
Continue abx per ID
Pain control
Assessment
-
58-year-old woman with past medical history significant for diverticular disease, hypertension, type 2 diabetes who presented to the emergency room complaining of abdominal pain. CT abdomen pelvis performed demonstrated diverticulitis with concern
for perforation. She was followed for 24th for 48 hours on antibiotics, repeat CT showed worsening intraperitoneal air s/p operating room for exploratory laparotomy. She underwent exploratory laparotomy, Barbour's resection on 05/22/2024.
Subsequently in the ICU, intubated, sedated from mechanical ventilation. Transferred to floor 05/25.
We are asked for re-eval for recurrent pleural effusions 06/19/24.
Impression:
Recurrent pleural effusion s/p thora x 2 -effusion started to build up following her perforated viscus and is likely due to translocation of fluid across diaphragm
Acute abdomen: Acute diverticulitis with bowel perforation
CT abdomen pelvis reviewed: Perforated diverticula with intraperitoneal air.
Status post exploratory laparotomy 05/22/2024: Barbour's procedure with sigmoidectomy + colostomy.
Postoperative mechanical ventilation
Extubated 05/23/2024
Septic shock � shock state has resolved
Acute kidney injury metabolic acidosis � both have resolved
Anion gap metabolic acidosis � resolved
Hyperglycemia - resolved
Postoperative anemia due to blood loss/acute
Conditions present prior admission:
Type 2 diabetes
Hypertension
Obesity
History of coarctation of the aorta
Breast cancer status postmastectomy and chemotherapy
Uterine cancer status post hysterectomy
Diverticular disease
Status post breast reconstruction
History of
Aortic stent placement
Cataracts
Plan
Events from ICU reviewed, transferred to floors 05/25
Extubated 05/23/2024, currently stable on RA
Has not noticed worsening SOB unless she exerts herself
Recurrent pleural effusion s/p thora x 2
06/18/24 650mL
06/15/24 750mL
Fluid studies reviewed: Pleural fluid 06/15/24: pH 7.41 - TP 3.8 - LDH 386 - Culture neg - Cyto negative for malignancy with acute inflammatory cells present
Serum TP 5.6, LDH 300
Results are mostly indicating exudative fluid, likely parapneumonic vs translocation from intra-abdominal process tho culture negative since being on abx; favor the latter as she clinically has no signs of pneumonia
Repeat CXR showing worsening L sided pleural effusion but would hold off on tapping, as prior taps were minimal
The fluid appears worsened overlying compressive atelectasis on CT imaging
Recheck proBNP >6000
On IV Lasix; CT chest performed today shows a moderate left-sided pleural effusion with no effusion seen on the right lung. Case discussed with IR and they will insert chest tube tomorrow (06/24). No need for additional Lasix at this time given no
evidence for right-sided pulmonary edema or pleural effusion.
Imaging reviewed, small area of effusion with compressive atelectasis
Reviewed her best IS effort, <500
Encouraged more effort, deep breathing
Continue acapella and nebs
Airway clearance
Status post exploratory laparotomy for acute diverticulitis with perforation
Surgical correspondence/operative reports reviewed
Ostomy care
Follow drain output from midline JODIE drain + left subdiaphragmatic JODIE drain
Septic shock/metabolic acidosis-resolved.
Maintained on IV ertapenem as per ID
Needs OOB/Ambulation/PT
Physical therapy/Occupational Therapy consulted
DVT prophylaxis with SCDs/LMWH
Reviewed case with son at bedside today
Pulmonary service to continue following along
Diagnostic Data
CXR 06/18/24- 1. Improved left pleural effusion following thoracentesis.
2. No pneumothorax.
CXR 06/21/2024:
1. Left upper extremity PICC in position.
2. At least moderate left effusion and adjacent atelectasis, increased as compared with prior.
CT AP 06/17/24- LOWER CHEST: Large left pleural effusion with adjacent atelectasis, only partially visualized. Partially visualized bilateral breast implants. Trace pericardial fluid is noted.. Right lung bases clear.
Lower abdominal drainage catheter is in satisfactory positioning within the anterior peritoneal cavity. There is no overt fluid collection within the anterior peritoneal cavity, but rather strandy fluid with gas foci. This is relatively unchanged
compared to the recent CT. Contrast administered through this catheter prior to CT acquisition surrounds the pigtail catheter, but does not extend into the bowel lumen. Findings are consistent with no bowel fistula.
Left upper quadrant drainage catheter is in satisfactory position within a left upper quadrant fluid collection. Interval diminution in size of the left upper quadrant fluid collection now measuring 8.8 x 8.8 cm compared to 10.4 x 9.5 cm previously.
ECHO 12/20/21- Normal left ventricular size and systolic function. No regional wall motion abnormalities are seen. LV ejection fraction is 60-65%. Mild concentric left ventricular hypertrophy. Mild mitral regurgitation. Aortic coarctation stent
history with peak/mean gradients 22/10mmHg. No prior study available for comparison.
-----
Total time spent today was 51 minutes for this encounter. Time includes reviewing laboratory test/imaging results, reviewing pertinent medical records, obtaining and reviewing medical history, performing an appropriate exam, ordering medications,
tests and procedures. Time also includes documentation of this encounter, coordinating patient care and communicating with other healthcare professionals. Total time does not include separately billed tests performed on this date of service.
Subjective Data
-
Date of Service:
Date of Service: June 23, 2024
Chief Complaint: Pulmonary Follow Up
Subjective:
Patient was seen and evaluated today at bedside. Currently on room air breathing comfortably, saturating 97%. Patient's son, Carlos, at bedside and all questions were answered. Patient has been afebrile overnight. She denies chest pain, RIDER,
nausea, fevers or chills.
Review of Systems
General: Other (Negative unless mentioned above)
Objective Data
Data Reviewed
Vital Signs / I&O / Oxygen:
Vital Signs
Temp Pulse Resp BP Pulse Ox
99.6 F 118 18 147/82 90
06/23/24 07:35 06/23/24 07:35 06/23/24 07:35 06/23/24 07:35 06/23/24 07:35
Intake and Output
06/22/24 06/23/24 06/24/24
06:59 06:59 06:59
Intake Total 360 / 360 585 / 585
Output Total 1965 / 1965 2024
Balance -1605 / -1605 -1440 / -1440
SaO2 [A/C] 97
SaO2 90
Nasal Cannula flow liters per 3
minute
Physical Exam
General: Respiratory Distress (negative), Comfortable, Chills (negative) and Other (NAD)
HEENT: Normocephalic, Anicteric and Moist Mucous Membranes
Cardiovascular: S1-S2 and Peripheral Edema (Trace lower extremity edema bilaterally)
Respiratory: Wheeze (negative), Crackles (Left middle/left upper lung field), Rhonchi (negative), Non-Labored Respirations and Other (Diminished breath sounds in the left hemithorax)
GI: Soft, Distended (Abdominal obesity), Non Tender, Normal Bowel Sounds and Other (LLQ colostomy in place; midline JODIE drain in place with purulent fluid seen in bulb)
Neurology: Awake, Alert, Oriented, AO x 3 and Tremors (negative)
Skin: Warm, Dry, Good Color, Cyanosis (negative), Jaundice (negative) and Other (Left sub-diaphragmatic JODIE drain in place with serosanguineous fluid seen in bulb)
Labs/Micro/Reports
Lab Data
06/22/24 05:44
06/22/24 05:44
Microbiology
06/16/24 13:28 Blood/Venous Blood Culture - Final
No Growth - Final Report
--- NOTE | 2024-06-23 11:24 | W.PN.CRS1 ---
Today's Communication / Plan
-
antibiotics
Assessment/Plan
-
POD 31
1. No WBC today. No fever in 24 hours. Source abdominal +/- pulmonary. Continue drain care. Antibiotics per ID.
2. pulmonology input noted and appreciated.
3. appetite a bit diminished. Emphasized the benefits of nutrition.
4. deconditioned. Apparently also had sacral pressure sore per ET nursing evaluation. Encouraged OOB/PT. Eventual SNF.
5. Continue drains
Subjective Data
Procedure
05/22/2024- 1) exploratory laparotomy 2) Caridad's resection (sigmoidectomy with rectopexy)
Subjective Data
Date of Service: June 23, 2024
Patient states she feels the same. She has a good appetite. She denies nausea or vomiting. Her stoma has function.
Objective Data
-
Vital Signs
Temp Pulse Resp BP Pulse Ox
99.6 F 118 18 147/82 90
06/23/24 07:35 06/23/24 09:48 06/23/24 07:35 06/23/24 09:48 06/23/24 07:35
Intake & Output
06/22/24 06/23/24 06/24/24
06:59 06:59 06:59
Intake Total 360 / 360 585 / 585
Output Total 1964 / 1964
Balance -1605 / -1605 -1440 / -1440
Intake:
Oral fluids 360 / 360 540 / 540
IV piggybacks 45 / 45
Output:
Liquid stool amount 475 / 475
Colostomy 475 / 475
Drain Output (Total)
Left Upper Abdomen Placed in IR 5 / 5
Right Abdomen Placed in IR 10 / 10
Urine, Voided 1949 / 1949 1550 / 1550
Other:
Number of approximated MODERATE 4
amounts of urine
How many times incontinent 1
SATURATED amount urine
Lab Results
06/22/24 05:44
06/22/24 05:44
Physical Exam
-
General: No Acute Distress and AOx3
Abdomen: Soft, Non Distended, Non Tender and Other (R drain with purulent output, left drain with old blood)
[2024-06-23 12:17] LABS: Glucose - Point of Care 159 mg/dl (70-99)
--- NOTE | 2024-06-23 12:51 | W.PN.HOSP.TC ---
Today's Communication/Plan
-
IRAD to place CT tube tomorrow, discussed with pulmonology
continue Invanz
f/u T curve
Assessment / Plan
Assessment / Plan
CT c/a/p on 06/23
1).There is moderate left-sided pleural effusion with underlying compressive atelectasis despite the presence of a left-sided chest tube which is at the left lung base laterally
2).There is inflammatory stranding in the central and left mesentery as well as in the pelvis and along the anterior pararenal fascia on the left similar to that seen on the 06/04/2024 study with a pigtail type drainage catheter in an 8 cm midline
anterior abdominal/pelvic abscess which is decreased in size when compared with the prior study.
3). There is left lower abdomen ostomy
4). Diverticula are present in the colon with no CT evidence of diverticulitis

Persistent episodic fever - Slowly improving
Infected LUQ hematoma - ESBL ecoli and Klebsiella PNA
-on Ertapenem (day 22)
-possible sources in LUQ collection (drain placement 06/14/24 shows fluid culture revealing ESBL E. coli x 2)
-fistulogram per IR without signs of fistula
-ID following and help appreciated.
Acute sigmoid diverticulitis with perforation, s/p shock
Bacteroids sp. bacteremia
-appreciate colorectal surgery
-exp lap with ostomy and JODIE drain (still in place) on 05/24/24
-Patient tolerating 1800-calorie diabetic diet well
Exudative pleural effusion
-s/p thoracentesis 06/14 with 750 mls drained
-CXR with recurrent effusion
-appreciate IR for repeat thoracentesis, 650 ml clear fluid on 06/18/24
-started back on IV lasix 40mg/d, monitor weight/cr
-CT c/a/p on 06/22 reviewed . discussed with pulmonology and IRAD consulted for CT tube placement, to be done on Monday, NPO past MN ordered per IRAD recommendation.
Acute blood loss anemia
-s/p 3 units PRBC this admission
-transfuse if HGB < 7
TIFFANI
-resolved
Hyponatremia
-likely volume overload--resolved
Acute transaminitis
-likely due to all above--resolved
Type 2 DM
-insulin requiring
-Hemoglobin A1c of 7.4
-appreciate DM ANIMATION CAMERA OPERATOR assistance
H/o Coarctation of the Aorta
-s/p prior aortic stenting
-Continue
HLD
-cont statin
Sacral Pressure Wound Stage 3
-most likely due to pressure/position (pt does not really seem motivated to move)
-appreciate wound care
DVT Prophylaxis: Heparin subq
Code Status-- Full Code
Anticipated Discharge: > 48 hours
Subjective/Interval History
-
Date of Service: June 23, 2024
continue to have some pain on left lower rib cage
have some cough/pain on deep inspiration
no nausea/vomiting
Objective Data
-
Vital Signs:
Vital Signs
Temp Pulse Resp BP Pulse Ox
99.6 F 118 18 147/82 90
06/23/24 07:35 06/23/24 09:48 06/23/24 07:35 06/23/24 09:48 06/23/24 07:35
I&O
06/22/24 06/23/24 06/24/24
06:59 06:59 06:59
Intake Total 360 / 360 585 / 585
Output Total 1965 / 1965 2024
Balance -1605 / -1605 -1440 / -1440
Review of Systems
-
Respiratory: Reports Cough and Pleurisy
Cardiac: Reports No Symptoms
Abdomen/GI: Reports Abdominal Pain; Denies Nausea or Vomiting
Physical Exam
-
General: No Apparent Distress and Comfortable
HEENT: Negative Oxygen
Respiratory: Clear to Auscultation
Cardiac: Regular Rhythm and S1/S2; Negative Murmur or Rub
GI: Soft, Nontender, Nondistended and Ostomy (Brown liquid stool)
Musculoskeletal: No Edema
Neuro: Awake, Alert, Oriented, No Motor Deficits and Nonfocal/Grossly Intact
Psych: Calm
[2024-06-23] MEDS: INVANZ 60 MG IV (13:20)
[2024-06-23] MEDS: NOVOLOG FLEXPEN-MODERATE RESISTANCE 1 UNITS SC ×2 (13:21→18:29)
[2024-06-23 14:39] VITALS: BP 141/76; BP 153/74; PULSE 99; O2SAT 95
[2024-06-23 15:40] VITALS: BP 127/67
[2024-06-23] MEDS: LIDOCAINE 4% PATCH 1 PATCH TOPICAL (17:12)
[2024-06-23] MEDS: LOVENOX 40 MG SC (17:13)
[2024-06-23] MEDS: CRESTOR 30 MG PO (17:15)
[2024-06-23 18:15] LABS: Glucose - Point of Care 169 mg/dl (70-99)
[2024-06-23 21:29] LABS: Glucose - Point of Care 101 mg/dl (70-99)
[2024-06-23] MEDS: ULTRAM 50 MG PO (23:03)
[2024-06-23 23:49] VITALS: BP 150/81
[2024-06-24] VITALS (15 sets, daily range): BP systolic 90–168; BP diastolic 67–89; PULSE 85–86; O2SAT 94
--- NOTE | 2024-06-24 07:13 | W.PN.HOSP.TC ---
Today's Communication/Plan
-
Pending left-sided chest tube today
Continue ertapenem
Assessment / Plan
Assessment / Plan
CT c/a/p on 06/23
1).There is moderate left-sided pleural effusion with underlying compressive atelectasis despite the presence of a left-sided chest tube which is at the left lung base laterally
2).There is inflammatory stranding in the central and left mesentery as well as in the pelvis and along the anterior pararenal fascia on the left similar to that seen on the 06/04/2024 study with a pigtail type drainage catheter in an 8 cm midline
anterior abdominal/pelvic abscess which is decreased in size when compared with the prior study.
3). There is left lower abdomen ostomy
4). Diverticula are present in the colon with no CT evidence of diverticulitis

Assessment
58-year-old female with past medical history significant for hypertension, diabetes mellitus, history of breast cancer, history of endometrial cancer s/p hysterectomy, diverticulitis, coarctation of aorta presented to the ER with abdominal
discomfort and was diagnosed with sigmoid diverticulitis with perforation. She is status post Barbour's procedure.
Impression
Acute sigmoid diverticulitis with perforation s/p exploratory laparotomy and Barbour's procedure
Multifactorial shock
Bacteroides bacteremia
Pleural effusion
Acute blood loss anemia
Hypertension
Sinus tachycardia
TIFFANI
Acute transaminitis
Insulin-dependent diabetes mellitus
Coarctation of aorta
Iatrogenic volume overload
Hypercholesterolemia
Plan
#Persistent episodic fever - Slowly improving
Infected LUQ hematoma - ESBL ecoli and Klebsiella PNA
-on Ertapenem (day 23)
-possible sources in LUQ collection (drain placement 06/14/24 shows fluid culture revealing ESBL E. coli x 2)
-fistulogram per IR without signs of fistula
-ID following and help appreciated.
#Acute sigmoid diverticulitis with perforation, s/p shock
Status post exploratory laparotomy/Barbour's procedure�POD# 30
Bacteroids sp. bacteremia
-appreciate colorectal surgery
-exp lap with ostomy and JODIE drain (still in place) on 05/24/24
#Exudative pleural effusion
-s/p thoracentesis 06/14 with 750 mls drained
-CXR with recurrent effusion
-appreciate IR for repeat thoracentesis, 650 ml clear fluid on 06/18/24
-started back on IV lasix 40mg/d, monitor weight/cr
- Pending chest tube place by IR today
#Acute blood loss anemia
-s/p 3 units PRBC this admission
-transfuse if HGB < 7
#TIFFANI
-resolved
#Hyponatremia
-likely volume overload--resolved
#Acute transaminitis
-likely due to all above--resolved
#Type 2 DM
-insulin requiring
-Hemoglobin A1c of 7.4
-appreciate DM LEAD CLINICAL RESEARCH COORDINATOR assistance
#H/o Coarctation of the Aorta
-s/p prior aortic stenting
-Continue
#HLD
-cont statin
#Sacral Pressure Wound Stage 3
-most likely due to pressure/position (pt does not really seem motivated to move)
-appreciate wound care
DVT Prophylaxis: Heparin subq
Code Status-- Full Code
Anticipated Discharge: 24 - 48 hours
Subjective/Interval History
-
Date of Service: June 24, 2024
Patient states that she continues to have mild left sided pain near her drain but otherwise has no new concerns.
Objective Data
-
Vital Signs:
Vital Signs
Temp Pulse Resp BP Pulse Ox
99.3 F 99 21 150/81 91
06/23/24 23:49 06/23/24 23:49 06/23/24 23:49 06/23/24 23:49 06/24/24 02:54
I&O
06/23/24 06/24/24 06/25/24
06:59 06:59 06:59
Intake Total 585 / 585 520 / 520
Output Total 2024 1245 / 1245
Balance -1440 / -1440 -725 / -725
Review of Systems
-
All other systems: Reviewed and negative
Physical Exam
-
General: No Apparent Distress and Comfortable
HEENT: Negative Oxygen
Respiratory: Clear to Auscultation
Cardiac: Regular Rhythm and S1/S2; Negative Murmur or Rub
GI: Soft, Nontender, Nondistended and Ostomy
Musculoskeletal: No Edema
Neuro: Awake, Alert and Oriented
Psych: Calm
[2024-06-24 08:30] LABS: Glucose - Point of Care 119 mg/dl (70-99)
[2024-06-24] MEDS: NOVOLOG FLEXPEN-MODERATE RESISTANCE SC ×3 (08:47→17:47)
[2024-06-24] MEDS: NOVOLOG FLEXPEN SC ×2 (08:47→12:21)
[2024-06-24] MEDS: COLACE 100 MG PO ×2 (09:11→20:11)
[2024-06-24] MEDS: PROCARDIA XL (EXTENDED RELEASE) 30 MG PO ×2 (09:11→20:11)
[2024-06-24] MEDS: PROTONIX 40 MG PO (09:11)
[2024-06-24] MEDS: COZAAR 50 MG PO ×2 (09:11→20:12)
[2024-06-24] MEDS: LOPRESSOR 100 MG PO ×2 (09:11→20:12)
[2024-06-24] MEDS: FARXIGA 10 MG PO (09:12)
[2024-06-24] MEDS: LANTUS 0.04 UNITS SC (09:12)
[2024-06-24] MEDS: SANTYL OINTMENT 1 APPLIC TOPICAL (09:12)
[2024-06-24] MEDS: DESENEX/MITRAZOL/ZEASORB 1 APPLIC TOPICAL ×2 (09:13→20:14)
[2024-06-24] MEDS: LIDOCAINE 4% PATCH 1 PATCH TOPICAL (09:13)
[2024-06-24] MEDS: NEURONTIN 100 MG PO ×3 (09:13→20:11)
--- NOTE | 2024-06-24 09:18 | W.PN.CRS1 ---
Today's Communication / Plan
-
IRAD for chest tube
Assessment/Plan
-
58-year-old female with PMH of recurrent diverticulitis (multiple episodes over the last 25 years), recent UTI on 04/29 seen in the [facility] ED, HTN, DM (on Mounjaro), breast cancer s/p resection and chemo, endometrial cancer s/p LETI/BSO,? Aortic
stent who presented with acute abdominal pain, CT concerning for perforated diverticulitis with flecks of free air around the abdomen; patient initially managed nonoperatively as there was no signs of peritonitis or hemodynamic instability; however,
patient did not improve and a repeat CT scan showed worsening pneumoperitoneum with persistent inflammation of the sigmoid colon
POD#31 Caridad's; postop was on pressors and intubated. Off pressors and extubated by POD2
05/27 CT (for bump in WBC) - LUQ collection c/f perisplenic hematoma, expected post-op changes
06/03 US chest with moderate pleural effusion
06/04 CT with stable perisplenic hematoma, no abscess, necrotic omentum noted
06/09 CT with large 14.7cm midline abscess, ?pericolic gutter abscess, perisplenic collection relatively stable in size
06/10- IR drain placement into midline collection (Cx ESBL and Klebsiella)
06/12- 2 units prbcs
06/14- CT with improving midline abscess, fluid in pericolic gutter still present as was perisplenic collection. IR drain to LUQ collection, final Cx pending, prelim with GNB suggestive of infected hematoma
06/15 Thoracentesis for large left pleural effusion, 750ml removed
06/17- IR fistulogram/CT - no fistula noted
06/18- thoracocentesis
Afebrile for 24 hours
WBC pending
Tolerating diet, stoma productive of stool/flatus
Old blood from LUQ drain
Pus/serous output in the midline drain
- Continue IR drains x2.
- Continue diet
� Appreciate WOCN
- Appreciate PT� recommending rehab for discharge, CM following for placement
� Appreciate hospitalist
- Antibiotics per ID, currently on Invanz
- Analgesics: Meloxicam and gabapentin scheduled, tylenol, tramadol, skelaxin and dilaudid prn
- C/W lovenox and SCDs for VTE ppx
- IRAD today for chest tube placement
Subjective Data
Procedure
05/22/2024- 1) exploratory laparotomy 2) Caridad's resection (sigmoidectomy with rectopexy)
Subjective Data
Date of Service: June 24, 2024
Patient states she has no nausea or vomiting. She has an appetite. She has no abdominal pain, her main complaint is a cough/SOB.
Objective Data
-
Vital Signs
Temp Pulse Resp BP Pulse Ox
99.5 F 107 16 168/79 91
06/24/24 07:56 06/24/24 07:56 06/24/24 07:56 06/24/24 07:56 06/24/24 07:56
Intake & Output
06/23/24 06/24/24 06/25/24
06:59 06:59 06:59
Intake Total 585 / 585 520 / 520
Output Total 2024 1245 / 1245
Balance -1440 / -1440 -725 / -725
Intake:
Oral fluids 540 / 540 520 / 520
IV piggybacks 45 / 45
Output:
Liquid stool amount 475 / 475 275 / 275
Colostomy 475 / 475 275 / 275
Drain Output (Total) 20
Left Upper Abdomen Placed in IR 10 / 10
Right Abdomen Placed in IR 10 / 10
Urine, Voided 1550 / 1550 950 / 950
Other:
How many times incontinent 1
SATURATED amount urine
Physical Exam
-
General: No Acute Distress and AOx3
Abdomen: Soft, Non Distended, Tender (mild LUQ) and Other (R drain car/green pus, L drain old blood, colostomy warm and pink with output)
Skin: Warm and Dry
[2024-06-24] MEDS: ULTRAM 50 MG PO ×3 (09:20→23:00)
--- NOTE | 2024-06-24 09:22 | PN.DE.MGMTRT ---
Insulin Management
- -
06/24/2024: Diabetes Management F/U:
Patient admitted 05/19 with acute sigmoid diverticulitis with perforation. PMH endometrial CA, breast CA, HTN, HCL, steroid induced diabetes. Prior to admission was taking 19 units NovoLog AC with Mounjaro 2.[address] Cordova
and Omer Ndiaye PA-c at [facility]. Recently was started on Mounjaro and Jardiance and had frequent low blood sugars. She states she could not get an appointment with Omer so she called her primary doctor who told her to stop Lantus and
Jardiance due to hypoglycemia. A1C is 7.4, Cr 1.5, eGFR 39.65. Extubated 05/23, transitioned off of glycemic protocol 05/25.
Patient is awake and A/O x3, resting in bed. Able to discuss diabetes management. Son at bedside.
POD# 30, s/p exp lap/Barbour's procedure with diverting colostomy (05/22/2024)
06/10 drain insertion, 06/14, 2nd drain placement. 06/15 thoracentesis-750cc removed, second thoracentesis - 650 removed 06/18, doing well.
Currently NPO for IRAD chest tube placement.
Glucose remains stable and in range, premeal 130 to 169, fasting 122 this AM.
Will make no changes to current regimen: Continue NovoLog 4 units AC with moderate corrective, Farxiga 10 mg daily (at home taking Jardiance 10 mg daily) and Lantus 8 units in AM, with Mounjaro 5 mg weekly on Monday.
Pt states that Jardiance will not be provided to her while in rehab due to cost. She has requested script for Jardiance to be sent to pharmacy so her son can pick it up and have it ready to take to rehab.
Discussed with patient and nurse.
Diabetes History
- -
Type of Diabetes: 2 requiring insulin
Pre-Admission Diabetes Regimen
Lab Results
Hemoglobin A1c 7.4 % (4.0-5.6) H 05/20/24 05:23
Insulin Pump Settings
IP Diabetes Regimen
06/23/24 06/23/24 06/23/24
12:16 18:14 21:26
POC Glucose 159 H 169 H 101 H
06/24/24
08:28
POC Glucose 119 H
Meal type: Dinner
Meal type: Lunch
Meal type: Breakfast
Amount consumed: 75%
Amount consumed: 100%
Amount consumed: 100%
Patient Education
[2024-06-24 09:37] LABS: % Basophils 0.5 % (0-2); % Eosinophils 2.6 % (0-6); % Immature Granulocytes 0.7 % (0-0.5); % Lymphocytes 12.6 % (20.5-51.1); % Neutrophils 76.6 % (42.2-75.2); Absolute Basophils 0.1 10^3/uL (0-0.2); Absolute Eosinophils 0.3 10^3/uL (0-0.7); Absolute Immature Granulocytes 0.1 10^3/uL (0-0.05); Absolute Lymphocytes 1.3 10^3/uL (1.2-3.4); Absolute Monocytes 0.7 10^3/uL (0.1-0.6); Absolute Neutrophils 8.1 10^3/uL (1.4-6.5); Hematocrit 27.3 % (37.0-47.0); Hemoglobin 8.8 g/dL (12.0-16.0); Mean Corp Hgb Conc. 32.2 g/dL (33.0-37.0); Mean Corpuscular Hgb 27.8 pg (27.0-31.0); Mean Corpuscular Volume 86.1 fL (81.0-99.0); Mean Platelet Volume 10.7 fL (7.4-10.4); Nucleated Red Blood Cells % 0 %; Platelet Count 437 10^3/uL (130-400); Red Blood Cell Count 3.17 10^6/uL (4.20-5.40); Red Cell Dist. Width 16.2 % (11.5-14.5); White Blood Cell Count 10.6 10^3/uL (4.8-10.8)
[2024-06-24 09:50] LABS: Blood Urea Nitrogen 11 mg/dl (7-17); Carbon Dioxide 32 mmol/L (22-30); Chloride 97 mmol/L (98-107); Estimated Creatinine Clearance 115 ml/min; Glucose 112 mg/dl (70-99); Potassium 3.6 mmol/L (3.5-5.1); Sodium 140 mmol/L (135-145); eGFR > 60.00
--- NOTE | 2024-06-24 10:01 | CM ---
Addendum entered by Priya Gutierrez 06/24/24 17:47:
Left message with son Anshul regarding preference of SNF.
Patient having CT placed today-chart reviewed.
Original Note:
Spoke with Terri at [facility] [phone]
Stated that as of 05/26 [employer] is primary not [employer]
ID #[id number] - USE THIS WHEN OBTAINING AUTH
--- NOTE | 2024-06-24 10:47 | W.PN.PUL3 ---
Today's Communication / Plan
-
For chest tube placement today
Will follow-up with
Will follow cultures etc.
Assessment
-
58-year-old woman with past medical history significant for diverticular disease, hypertension, type 2 diabetes who presented to the emergency room complaining of abdominal pain. CT abdomen pelvis performed demonstrated diverticulitis with concern
for perforation. She was followed for 24th for 48 hours on antibiotics, repeat CT showed worsening intraperitoneal air s/p operating room for exploratory laparotomy. She underwent exploratory laparotomy, Barbour's resection on 05/22/2024.
Subsequently in the ICU, intubated, sedated from mechanical ventilation. Transferred to floor 05/25.
We are asked for re-eval for recurrent pleural effusions 06/19/24.
Impression:
Recurrent pleural effusion s/p thora x 2 -effusion started to build up following her perforated viscus and is likely due to translocation of fluid across diaphragm
Acute abdomen: Acute diverticulitis with bowel perforation
CT abdomen pelvis reviewed: Perforated diverticula with intraperitoneal air.
Status post exploratory laparotomy 05/22/2024: Barbour's procedure with sigmoidectomy + colostomy.
Postoperative mechanical ventilation
Extubated 05/23/2024
Septic shock � shock state has resolved
Acute kidney injury metabolic acidosis � both have resolved
Anion gap metabolic acidosis � resolved
Hyperglycemia - resolved
Postoperative anemia due to blood loss/acute
Conditions present prior admission:
Type 2 diabetes
Hypertension
Obesity
History of coarctation of the aorta
Breast cancer status postmastectomy and chemotherapy
Uterine cancer status post hysterectomy
Diverticular disease
Status post breast reconstruction
History of
Aortic stent placement
Cataracts
Plan
transferred to floors 05/25 from ICU.
Extubated 05/23/2024, currently stable on RA
Has not noticed worsening SOB unless she exerts herself
Recurrent left pleural effusion s/p thora x 2
06/18/24 650mL
06/15/24 750mL
Fluid studies reviewed: Pleural fluid 06/15/24: pH 7.41 - TP 3.8 - LDH 386 - Culture neg - Cyto negative for malignancy with acute inflammatory cells present
Serum TP 5.6, LDH 300
Results are mostly indicating exudative fluid, likely parapneumonic vs translocation from intra-abdominal process tho culture negative since being on abx; favor the latter as she clinically has no signs of pneumonia
Repeat CXR showing worsening L sided pleural effusion but would hold off on tapping, as prior taps were minimal
The fluid appears worsened overlying compressive atelectasis on CT imaging
Recheck proBNP >6000
On IV Lasix; CT chest performed 06/23/2024 shows a moderate left-sided pleural effusion with no effusion seen on the right lung. For IR- insert chest tube (06/24).
No additional diuresis necessary.
Continue incentive spirometry
Out of bed as able
Encouraged more effort, deep breathing
Continue acapella and nebs
Status post exploratory laparotomy for acute diverticulitis with perforation
Surgical correspondence/operative reports reviewed
Ostomy care
Follow drain output from midline JODIE drain + left subdiaphragmatic JODIE drain
Septic shock/metabolic acidosis-resolved.
Maintained on IV ertapenem as per ID
Needs OOB/Ambulation/PT
Physical therapy/Occupational Therapy consulted
DVT prophylaxis with SCDs/LMWH
Dr. Ayala updated son on 06/24/2024
Will continue to follow.

Diagnostic Data
CXR 06/18/24- 1. Improved left pleural effusion following thoracentesis.
2. No pneumothorax.
CXR 06/21/2024:
1. Left upper extremity PICC in position.
2. At least moderate left effusion and adjacent atelectasis, increased as compared with prior.
CT AP 06/17/24- LOWER CHEST: Large left pleural effusion with adjacent atelectasis, only partially visualized. Partially visualized bilateral breast implants. Trace pericardial fluid is noted.. Right lung bases clear.
Lower abdominal drainage catheter is in satisfactory positioning within the anterior peritoneal cavity. There is no overt fluid collection within the anterior peritoneal cavity, but rather strandy fluid with gas foci. This is relatively unchanged
compared to the recent CT. Contrast administered through this catheter prior to CT acquisition surrounds the pigtail catheter, but does not extend into the bowel lumen. Findings are consistent with no bowel fistula.
Left upper quadrant drainage catheter is in satisfactory position within a left upper quadrant fluid collection. Interval diminution in size of the left upper quadrant fluid collection now measuring 8.8 x 8.8 cm compared to 10.4 x 9.5 cm previously.
ECHO 12/20/21- Normal left ventricular size and systolic function. No regional wall motion abnormalities are seen. LV ejection fraction is 60-65%. Mild concentric left ventricular hypertrophy. Mild mitral regurgitation. Aortic coarctation stent
history with peak/mean gradients 22/10mmHg. No prior study available for comparison.
-----
Subjective Data
-
Date of Service:
Date of Service: June 24, 2024
Chief Complaint: Pulmonary Follow Up
Objective Data
Data Reviewed
Vital Signs / I&O / Oxygen:
Vital Signs
Temp Pulse Resp BP Pulse Ox
99.5 F 107 16 168/79 91
06/24/24 07:56 06/24/24 09:11 06/24/24 07:56 06/24/24 09:11 06/24/24 07:56
Intake and Output
06/23/24 06/24/24 06/25/24
06:59 06:59 06:59
Intake Total 585 / 585 520 / 520
Output Total 2024 1245 / 1245
Balance -1440 / -1440 -725 / -725
SaO2 [A/C] 97
SaO2 91
Nasal Cannula flow liters per 3
minute
Physical Exam
General: Respiratory Distress (negative), Comfortable, Chills (negative) and Other (NAD)
HEENT: Normocephalic, Anicteric and Moist Mucous Membranes
Cardiovascular: S1-S2 and Peripheral Edema (Trace lower extremity edema bilaterally)
Respiratory: Wheeze (negative), Crackles (Left middle/left upper lung field), Rhonchi (negative), Non-Labored Respirations and Other (Diminished breath sounds in the left hemithorax)
GI: Soft, Distended (Abdominal obesity), Non Tender, Normal Bowel Sounds and Other (LLQ colostomy in place; midline JODIE drain in place with purulent fluid seen in bulb)
Neurology: Awake, Alert, Oriented, AO x 3 and Tremors (negative)
Skin: Warm, Dry, Good Color, Cyanosis (negative), Jaundice (negative) and Other (Left sub-diaphragmatic JODIE drain in place with serosanguineous fluid seen in bulb)
Labs/Micro/Reports
Lab Data
06/24/24 09:22
06/24/24 09:22
Microbiology
06/16/24 13:28 Blood/Venous Blood Culture - Final
No Growth - Final Report
--- NOTE | 2024-06-24 11:45 | PTCARENOTE ---
Patient drowsy. Responds to verbal stimuli. MD made aware. No new orders. VSS. Physical therapy walked patient. Patient sat in chair and ate lunch. Patient assisted back to bed after lunch.
[2024-06-24 12:21] LABS: Glucose - Point of Care 104 mg/dl (70-99)
[2024-06-24] MEDS: INVANZ 60 MG IV (12:21)
--- NOTE | 2024-06-24 12:33 | W.PN.ID1 ---
Date of Service
Date of Service: June 24, 2024
Today's Communication
Continue abx.
Assessment / Plan
# Fevers
- improving
# Leukocytosis
- improved
# Diverticulitis with diverticular perforation
- s/p diverting colostomy (05/22/2024).
- Intra-op splenic capsular tear with subsequent hematoma development
# LUQ infected hematoma
-s/p drain placement (06/14/24) - bloody
- Fluid cx: ESBL E. coli x2
# Anterior abdominal collection/abscess
- s/p drainage (06/10/24)
- Cultures with Klebsiella pneumoniae and ESBL E. coli
# Left pleural effusion
- s/p thoracentesis 750cc cloudy yellow fluid (06/15/24)
Hx Bacteroides bacteremia; cleared
HTN
DM
Hx breast CA
Hx endometrial CA
Diverticulitis
Recommendations:
Blood cultures NG.
Temp curve overall improving.
Continue with ertapenem.
For left CT placement today.
Follow drain output.
Continue to follow white count and temperature curve.
����������������������������������������������������������
Chief Complaint
-: Other (Abdominal infection)
Subjective / Review of Systems
Review of Systems: No Fever and No Chills
Vital Signs / Physical Exam
Vital Signs
Vital Signs
Temp Pulse Resp BP Pulse Ox
99.5 F 107 16 168/79 91
06/24/24 07:56 06/24/24 09:11 06/24/24 07:56 06/24/24 09:11 06/24/24 07:56
Physical Exam
Constitutional: No Acute Distress, Comfortable, Chronically Ill and Non-toxic
Eyes: Sclera Anicteric
Cardiovascular: S1/S2; Negative S3/S4 or Murmur
Pulmonary: Non Labored
Gastrointestinal: Soft, Non Tender, Non Distended, Normal Bowel Sounds and Other (Midline incision dry, (+) eschars w/o surrounding erythema; LUQ JODIE drain bloody output, RLQ JODIE drain- serosanguinous fluid)
Extremities: Edema; Negative Erythema
Skin: Warm and Dry; Negative Rash
Neurological: Awake, Alert and AO x 3
Psychological: Calm
Lines: PICC (LUE intact)
Objective Data
Lab Data
Lab Results
06/24/24 09:22
06/24/24 09:22
PT 16.1 Sec (11.4-14.6) H 05/22/24 19:57
INR 1.28 05/22/24 19:57
APTT 28.3 Sec (23.4-35.0) 05/22/24 19:57
Estimated Creat Clear 115 ml/min 06/24/24 09:22
Lactic Acid 1.2 mmol/L (0.7-2.0) 05/20/24 22:09
Total Bilirubin 0.5 mg/dl (0.2-1.3) 06/15/24 07:40
AST 35 U/L (14-36) 06/15/24 07:40
ALT 21 U/L (0-35) 06/15/24 07:40
Alkaline Phosphatase 74 U/L (38-126) 06/15/24 07:40
Most recent labs reviewed.
Micro Results:
06/16/24 13:28 Blood Culture - Final
Blood/Venous No Growth - Final Report
06/15/24 13:43 Body Fluid Culture - Final
Pleural Fluid No Growth After 72 Hours
Gram Stain - Final
06/14/24 18:10 Body Fluid Culture - Final
Fluid Escherichia coli - ESBL
Escherichia coli - ESBL#2
Gram Stain - Final
06/09/24 10:30 Blood Culture - Final
Blood/Venous No Growth - Final Report
06/09/24 10:29 Blood Culture - Final
Blood/Venous No Growth - Final Report
06/10/24 12:54 Wound Culture - Final
Abdomen Escherichia coli - ESBL
Klebsiella pneumoniae
Gram Stain - Final
06/02/24 12:02 Blood Culture - Final
Blood/Venous No Growth - Final Report
06/02/24 09:36 Blood Culture - Final
Blood/Venous No Growth - Final Report
05/22/24 08:00 Wound Culture - Final
Abdomen Escherichia coli - ESBL
Gram Stain - Final
05/22/24 08:00 Anaerobic Culture - Final
Abdomen
05/19/24 20:48 Blood Culture - Final
Blood/Venous Bacteroides distasonis
Gram Stain - Final
05/21/24 17:56 Blood Culture - Final
Blood/Venous No Growth - Final Report
Imaging:
06/17/2024 CT abdomen/pelvis: Lower abdominal drainage catheter is in satisfactory positioning within the anterior peritoneal cavity. There is no overt fluid collection within the anterior peritoneal cavity, but rather strandy fluid with gas foci.
This is relatively unchanged compared to the recent CT. Contrast administered through this catheter prior to CT acquisition surrounds the pigtail catheter, but does not extend into the bowel lumen. Findings are consistent with no bowel fistula.
Left upper quadrant drainage catheter is in satisfactory position within a left upper quadrant fluid collection. Interval diminution in size of the left upper quadrant fluid collection now measuring 8.8 x 8.8 cm compared to 10.4 x 9.5 cm previously.
06/04/2024 CT abdomen/pelvis with contrast: Heterogeneous collection in the left upper quadrant, superior to the spleen and upper stomach. The patient has a history of splenic laceration during splenic flexure takedown, and this most likely
represents a hematoma. Measurements without significant change from examination of May 27, 2024. Although this was not a CT angiography examination, there is no CT evidence to suggest significant active bleeding. There is fluid in the left
paracolic gutter and extending slightly medially in the left lower abdomen adjacent to small bowel loops. This fluid has slightly increased since examination May 27, 2024. There is a drainage catheter with its tip is in the inferior aspect of
this fluid collection. There is an unusual ovoid fat, fluid, and air density in the midline abdomen posterior to the abdominal wall. This is felt to likely represent necrotic omentum, and superimposed infection cannot be excluded. There is no
evidence of a drainable collection at this time. Moderate subcutaneous edema. This is slightly improved from examination of May 27, 2024.
05/27/2024 CT abdomen/pelvis with contrast: There is 7 x 8 x 3 cm intermediate density heterogeneous left subdiaphragmatic fluid collection containing a small amount of extraluminal gas. Differential diagnosis for this collection includes hematoma
and abscess. Sigmoidectomy with left lower quadrant colostomy. Moderate ascites including areas of loculated fluid in the abdomen and pelvis. Small left pleural effusion with compressive atelectasis at the posterior left lung base. Please see
full dictation for additional detail.
--- NOTE | 2024-06-24 13:09 | W.PN.UPDATE ---
Update Note
Progress Note Update
I saw and evaluated the patient. I reviewed the resident�s note and agree with findings and plan as documented in the resident�s note.
CT c/a/p on 06/23
1).There is moderate left-sided pleural effusion with underlying compressive atelectasis despite the presence of a left-sided chest tube which is at the left lung base laterally
2).There is inflammatory stranding in the central and left mesentery as well as in the pelvis and along the anterior pararenal fascia on the left similar to that seen on the 06/04/2024 study with a pigtail type drainage catheter in an 8 cm midline
anterior abdominal/pelvic abscess which is decreased in size when compared with the prior study.
3). There is left lower abdomen ostomy
4). Diverticula are present in the colon with no CT evidence of diverticulitis

Persistent episodic fever - Slowly improving
Infected LUQ hematoma - ESBL ecoli and Klebsiella PNA
-on Ertapenem (day 23)
-possible sources in LUQ collection (drain placement 06/14/24 shows fluid culture revealing ESBL E. coli x 2)
-fistulogram per IR without signs of fistula
-ID following and help appreciated.
Acute sigmoid diverticulitis with perforation, s/p shock
Bacteroids sp. bacteremia
-appreciate colorectal surgery
-exp lap with ostomy and JODIE drain (still in place) on 05/24/24
-Patient tolerating 1800-calorie diabetic diet well
Exudative pleural effusion
-s/p thoracentesis 06/14 with 750 mls drained
-CXR with recurrent effusion
-appreciate IR for repeat thoracentesis, 650 ml clear fluid on 06/18/24
-started back on IV lasix 40mg/d, monitor weight/cr
-CT c/a/p on 06/22 reviewed and patient plan to get left-sided chest tube today.
Acute blood loss anemia
-s/p 3 units PRBC this admission
-transfuse if HGB < 7
TIFFANI
-resolved
Hyponatremia
-likely volume overload--resolved
Acute transaminitis
-likely due to all above--resolved
Type 2 DM
-insulin requiring
-Hemoglobin A1c of 7.4
-appreciate DM COUNT ROOM CLERK assistance
H/o Coarctation of the Aorta
-s/p prior aortic stenting
-Continue
HLD
-cont statin
Sacral Pressure Wound Stage 3
-most likely due to pressure/position (pt does not really seem motivated to move)
-appreciate wound care
DVT Prophylaxis: Heparin subq
Code Status-- Full Code
[2024-06-24] MEDS: TYLENOL 650 MG PO ×2 (13:41→21:57)
--- NOTE | 2024-06-24 16:21 | W.PN.UPDATE ---
Update Note
Progress Note Update
12F L chest tube placed with US/fluoro guidance
- L effusion appears loculated. Aspirated fluid somewhat turbid/yellow
- Will likely need pleural lysis tomorrow. Will follow outputs overnight
[2024-06-24 17:12] LABS: Body Fluid pH 7.41
[2024-06-24 17:15] LABS: Body Fluid Amylase 50 U/L; Body Fluid Glucose 77 mg/dl; Body Fluid LDH 552 U/L; Body Fluid Protein 4.6 g/dl; Body Fluid Triglycerides 141 mg/dl
[2024-06-24 17:23] LABS: Body Fluid Mononuclear 27.8 %; Body Fluid Polymorphonuclear 72.2 %; Body Fluid WBC 18 /CUMM
[2024-06-24 17:47] LABS: Glucose - Point of Care 114 mg/dl (70-99)
[2024-06-24] MEDS: NOVOLOG FLEXPEN 4 UNITS SC (17:47)
[2024-06-24] MEDS: LOVENOX 40 MG SC (17:48)
[2024-06-24] MEDS: CRESTOR 30 MG PO (17:48)
[2024-06-24 17:59] LABS: Body Fluid Second Tech EYM
[2024-06-24 21:56] LABS: Glucose - Point of Care 143 mg/dl (70-99)
[2024-06-25 03:36] VITALS: BP 129/70
[2024-06-25 05:50] LABS: % Basophils 0.6 % (0-2); % Eosinophils 3.2 % (0-6); % Immature Granulocytes 0.9 % (0-0.5); % Lymphocytes 16.8 % (20.5-51.1); % Monocytes 7.8 % (1.7-9.3); % Neutrophils 70.7 % (42.2-75.2); Absolute Basophils 0.1 10^3/uL (0-0.2); Absolute Eosinophils 0.3 10^3/uL (0-0.7); Absolute Immature Granulocytes 0.1 10^3/uL (0-0.05); Absolute Lymphocytes 1.5 10^3/uL (1.2-3.4); Absolute Monocytes 0.7 10^3/uL (0.1-0.6); Absolute Neutrophils 6.4 10^3/uL (1.4-6.5); Hemoglobin 8.4 g/dL (12.0-16.0); Mean Corp Hgb Conc. 32.3 g/dL (33.0-37.0); Mean Corpuscular Hgb 27.8 pg (27.0-31.0); Mean Corpuscular Volume 86.1 fL (81.0-99.0); Mean Platelet Volume 10.7 fL (7.4-10.4); Nucleated Red Blood Cells % 0 %; Platelet Count 413 10^3/uL (130-400); Red Blood Cell Count 3.02 10^6/uL (4.20-5.40); Red Cell Dist. Width 16.4 % (11.5-14.5)
[2024-06-25] MEDS: ULTRAM 50 MG PO ×2 (06:06→12:48)
[2024-06-25 06:16] LABS: Blood Urea Nitrogen 14 mg/dl (7-17); Carbon Dioxide 32 mmol/L (22-30); Chloride 98 mmol/L (98-107); Estimated Creatinine Clearance 115 ml/min; Glucose 116 mg/dl (70-99); Potassium 3.4 mmol/L (3.5-5.1); Sodium 141 mmol/L (135-145); eGFR > 60.00
--- NOTE | 2024-06-25 07:24 | PN.DE.MGMTRT ---
Insulin Management
- -
06/25/2024: Diabetes Management Follow up:
Patient admitted 05/19 with acute sigmoid diverticulitis with perforation. PMH endometrial CA, breast CA, HTN, HCL, steroid induced diabetes. Prior to admission was taking 19 units NovoLog AC with Mounjaro 2.[address] Cordova
and Omer Ndiaye PA-c at [facility]. Recently was started on Mounjaro and Jardiance and had frequent low blood sugars. She states she could not get an appointment with Omer so she called her primary doctor who told her to stop Lantus and
Jardiance due to hypoglycemia. A1C is 7.4, Cr 1.5, eGFR 39.65. Extubated 05/23, transitioned off of glycemic protocol 05/25.
Patient is awake and A/O x3, resting in bed. Able to discuss diabetes management. Son at bedside.
POD# 34, s/p exp lap/Barbour's procedure with diverting colostomy (05/22/2024)
06/10 drain insertion, 06/14, 2nd drain placement. 06/15 thoracentesis-750cc removed, second thoracentesis - 650 removed 06/18, 06/24 L chest tube placed.
Glucose remains stable and in range, premeal 104 to 143, fasting 116 this AM.
Will make no changes to current regimen: Continue NovoLog 4 units AC with moderate corrective, Farxiga 10 mg daily (at home taking Jardiance 10 mg daily) and Lantus 8 units in AM, with Mounjaro 5 mg weekly on Monday.
Pt states that Jardiance will not be provided to her while in rehab due to cost. She has requested script for Jardiance to be sent to pharmacy so her son can pick it up and have it ready to take to rehab.
Discussed with patient and nurse.
Diabetes History
- -
Type of Diabetes: 2 requiring insulin
Pre-Admission Diabetes Regimen
06/24/24 06/25/24
05:00
Creatinine 0.6 0.6
Lab Results
Hemoglobin A1c 7.4 % (4.0-5.6) H 05/20/24 05:23
Insulin Pump Settings
IP Diabetes Regimen
06/24/24 06/24/24 06/24/24
08:28 09:22 12:20
Glucose 112 H
POC Glucose 119 H 104 H
06/24/24 06/24/24 06/25/24
17:46 21:55 05:00
Glucose 116 H
POC Glucose 114 H 143 H
Meal type: Lunch
Meal type: Breakfast
Patient Education
[2024-06-25 07:35] VITALS: BP 168/84
--- NOTE | 2024-06-25 07:51 | W.PN.HOSP.TC ---
Addendum entered and electronically signed by Cosmo Church MD 06/25/24 13:43:
I saw and evaluated the patient. I reviewed the resident�s note and agree with findings and plan as documented in the resident�s note.
Patient not having significant chest tube output, 80 mL only overnight.
Fluid studies showed TWBC 18 PMN 72.2% LDH 552 - exudative in nature.
Repeat chest x-ray showing some persistent effusion
IRAD injecting tPA/DNase in left pleural cavity, follow-up for output after infusion
Patient has remained fever free from 06/21 evening.
Original Note:
Today's Communication/Plan
-
Thrombolysis/dornase lyla today
Monitor chest tube output
Continue antibiotic
Assessment / Plan
Assessment / Plan
CT c/a/p on 06/23
1).There is moderate left-sided pleural effusion with underlying compressive atelectasis despite the presence of a left-sided chest tube which is at the left lung base laterally
2).There is inflammatory stranding in the central and left mesentery as well as in the pelvis and along the anterior pararenal fascia on the left similar to that seen on the 06/04/2024 study with a pigtail type drainage catheter in an 8 cm midline
anterior abdominal/pelvic abscess which is decreased in size when compared with the prior study.
3). There is left lower abdomen ostomy
4). Diverticula are present in the colon with no CT evidence of diverticulitis

Assessment
58-year-old female with past medical history significant for hypertension, diabetes mellitus, history of breast cancer, history of endometrial cancer s/p hysterectomy, diverticulitis, coarctation of aorta presented to the ER with abdominal
discomfort and was diagnosed with sigmoid diverticulitis with perforation. She is status post Barbour's procedure.
Impression
Acute sigmoid diverticulitis with perforation s/p exploratory laparotomy and Barbour's procedure
Multifactorial shock
Bacteroides bacteremia
Pleural effusion
Acute blood loss anemia
Hypertension
Sinus tachycardia
TIFFANI
Acute transaminitis
Insulin-dependent diabetes mellitus
Coarctation of aorta
Iatrogenic volume overload
Hypercholesterolemia
Plan
#Persistent episodic fever - Slowly improving
Infected LUQ hematoma - ESBL ecoli and Klebsiella PNA
-Continue Ertapenem (day 24)
-possible sources in LUQ collection (drain placement 06/14/24 shows fluid culture revealing ESBL E. coli x 2)
-fistulogram per IR without signs of fistula
-ID following and help appreciated.
#Acute sigmoid diverticulitis with perforation, s/p shock
Status post exploratory laparotomy/Barbour's procedure
Bacteroids sp. bacteremia
-appreciate colorectal surgery
-exp lap with ostomy and JODIE drain (still in place) on 05/24/24
#Exudative pleural effusion
-s/p thoracentesis 06/14 with 750 mls drained
-CXR with recurrent effusion
-appreciate IR for repeat thoracentesis, 650 ml clear fluid on 06/18/24
-started back on IV lasix 40mg/d, monitor weight/cr
- CXR today: no pneumothorax, moderate pleural parenchymal airspace disease throughout the left lung most prominent at the left base consistent with pleural effusion with underlying atelectasis, right lung is clear
-Monitor chest tube output, reporting 80 cc overnight
-Pleural fluid 06/24: Exudative, low WBC count, not likely infected
-Thrombolysis/dornase alpha today as per IR
-Continue PT/OT
#Acute blood loss anemia
-s/p 3 units PRBC this admission
-transfuse if HGB < 7
#TIFFANI
-resolved
#Hyponatremia
-likely volume overload--resolved
#Acute transaminitis
-likely due to all above--resolved
#Type 2 DM
-insulin requiring
-Hemoglobin A1c of 7.4
-appreciate DM LOUVER MORTISER OPERATOR assistance
#H/o Coarctation of the Aorta
-s/p prior aortic stenting
-Continue
#HLD
-cont statin
#Sacral Pressure Wound Stage 3
-most likely due to pressure/position (pt does not really seem motivated to move)
-appreciate wound care
DVT Prophylaxis: Heparin subq
Code Status-- Full Code
Anticipated Discharge: 24 - 48 hours
Subjective/Interval History
-
Date of Service: June 25, 2024
Patient is feeling fine today and states that her pain from her chest tube placement is well controlled with her pain medication.
Objective Data
-
Labs:
Laboratory Results
06/25/24
05:00
WBC 9.0
Hgb 8.4 L
Hct 26.0 L
Plt Count 413 H
Sodium 141
Potassium 3.4 L
Chloride 98
Carbon Dioxide 32 H
BUN 14
Creatinine 0.6
Glucose 116 H
Calcium 8.0 L
Vital Signs:
Vital Signs
Temp Pulse Resp BP Pulse Ox
99.3 F 83 18 129/70 93
06/25/24 03:36 06/25/24 03:36 06/25/24 03:36 06/25/24 03:36 06/25/24 03:36
I&O
06/24/24 06/25/24 06/26/24
06:59 06:59 06:59
Intake Total 520 / 520 305 / 305
Output Total 1245 / 1245 410 / 410 5 / 5
Balance -725 / -725 -105 / -105 -5 / -5
Review of Systems
-
All other systems: Reviewed and negative
Physical Exam
-
General: No Apparent Distress
HEENT: Normocephalic
Respiratory: Clear to Auscultation and Chest Tubes
Cardiac: Regular Rhythm and S1/S2
GI: Soft, Nontender, Nondistended and Ostomy
Musculoskeletal: No Edema
Neuro: Awake, Alert and Oriented
Psych: Calm
[2024-06-25] MEDS: LIDOCAINE 4% PATCH 1 PATCH TOPICAL (08:25)
[2024-06-25] MEDS: COLACE 100 MG PO ×2 (08:26→22:07)
[2024-06-25] MEDS: LOPRESSOR 100 MG PO ×2 (08:26→22:07)
[2024-06-25] MEDS: PROTONIX 40 MG PO (08:27)
[2024-06-25] MEDS: FARXIGA 10 MG PO (08:27)
[2024-06-25] MEDS: COZAAR 50 MG PO ×2 (08:27→22:07)
[2024-06-25] MEDS: KCL 20 MEQ PO (08:27)
[2024-06-25] MEDS: PROCARDIA XL (EXTENDED RELEASE) 30 MG PO ×2 (08:27→22:06)
[2024-06-25] MEDS: SANTYL OINTMENT 1 APPLIC TOPICAL (08:27)
[2024-06-25] MEDS: DESENEX/MITRAZOL/ZEASORB 1 APPLIC TOPICAL ×2 (08:28→22:07)
[2024-06-25] MEDS: NEURONTIN 100 MG PO ×3 (08:28→23:02)
[2024-06-25 08:38] LABS: Glucose - Point of Care 121 mg/dl (70-99)
[2024-06-25] MEDS: NOVOLOG FLEXPEN-MODERATE RESISTANCE SC ×3 (09:19→17:29)
[2024-06-25] MEDS: LANTUS 0.08 UNITS SC (09:20)
[2024-06-25] MEDS: NOVOLOG FLEXPEN 4 UNITS SC ×3 (09:20→17:29)
[2024-06-25] MEDS: TYLENOL 650 MG PO ×2 (09:21→22:06)
--- NOTE | 2024-06-25 09:59 | PN.IRAD.UPD ---
Update Note - IRAD
- -
Instilled TPA and Dornase into left sided chest tube and clamped tube at 10:00. Nurse will unclamp tube at 12:00.
Arturo Cintron RT(R)()
[2024-06-25 10:46] VITALS: BP 142/66
--- NOTE | 2024-06-25 10:53 | W.PN.PUL3 ---
Today's Communication / Plan
-
Follow chest tube output
Thrombolysis/dornase alpha today
Incentive spirometry
Increase activity as able
Will follow-up
Assessment
-
58-year-old woman with past medical history significant for diverticular disease, hypertension, type 2 diabetes who presented to the emergency room complaining of abdominal pain. CT abdomen pelvis performed demonstrated diverticulitis with concern
for perforation. She was followed for 24th for 48 hours on antibiotics, repeat CT showed worsening intraperitoneal air s/p operating room for exploratory laparotomy. She underwent exploratory laparotomy, Barbour's resection on 05/22/2024.
Subsequently in the ICU, intubated, sedated from mechanical ventilation. Transferred to floor 05/25.
We are asked for re-eval for recurrent pleural effusions 06/19/24.
Impression:
Recurrent pleural effusion s/p thora x 2 -effusion started to build up following her perforated viscus and is likely due to translocation of fluid across diaphragm
Acute abdomen: Acute diverticulitis with bowel perforation
CT abdomen pelvis reviewed: Perforated diverticula with intraperitoneal air.
Status post exploratory laparotomy 05/22/2024: Barbour's procedure with sigmoidectomy + colostomy.
Postoperative mechanical ventilation
Extubated 05/23/2024
Septic shock � shock state has resolved
Acute kidney injury metabolic acidosis � both have resolved
Anion gap metabolic acidosis � resolved
Hyperglycemia - resolved
Postoperative anemia due to blood loss/acute
Conditions present prior admission:
Type 2 diabetes
Hypertension
Obesity
History of coarctation of the aorta
Breast cancer status postmastectomy and chemotherapy
Uterine cancer status post hysterectomy
Diverticular disease
Status post breast reconstruction
History of
Aortic stent placement
Cataracts
Plan
transferred to floors 05/25 from ICU.
Extubated 05/23/2024, currently stable on RA
Has not noticed worsening SOB unless she exerts herself
Recurrent left pleural effusion s/p thora x 2
06/18/24 650mL
06/15/24 750mL
Fluid studies reviewed: Pleural fluid 06/15/24: pH 7.41 - TP 3.8 - LDH 386 - Culture neg - Cyto negative for malignancy with acute inflammatory cells present
Serum TP 5.6, LDH 300
Results are mostly indicating exudative fluid, likely parapneumonic vs translocation from intra-abdominal process tho culture negative since being on abx; favor the latter as she clinically has no signs of pneumonia
Repeat CXR showing worsening L sided pleural effusion but would hold off on tapping, as prior taps were minimal
The fluid appears worsened overlying compressive atelectasis on CT imaging
Recheck proBNP >6000
On IV Lasix; CT chest performed 06/23/2024 shows a moderate left-sided pleural effusion with no effusion seen on the right lung.
Status post small bore ultrasound-guided left-sided chest tube placement, interventional radiology correspondence reviewed. Appears loculated
Follow chest tube output, only 80cc overnight.
Pleural fluid from 06/24/2024: Exudative but does not appear significantly inflammatory or infected.
Chest x-ray 06/25/2024: Reviewed, showed persistent left-sided opacity atelectasis with likely component of pleural fluid as well.
IR -for thrombolysis/dornase alpha today. I agree.
Follow cultures from fluid
-
Continue incentive spirometry
Out of bed as able
Encouraged more effort, deep breathing
Continue acapella and nebs
Status post exploratory laparotomy for acute diverticulitis with perforation
Ostomy care
Follow drain output from midline JODIE drain + left subdiaphragmatic JODIE drain
Septic shock/metabolic acidosis-resolved.
Maintained on IV ertapenem as per ID
OOB/Ambulation/PT as able.
Physical therapy/Occupational Therapy consulted
DVT prophylaxis with SCDs/LMWH
Dr. Ayala updated son on 06/24/2024
Will continue to follow.

Diagnostic Data
CXR 06/18/24- 1. Improved left pleural effusion following thoracentesis.
2. No pneumothorax.
CXR 06/21/2024:
1. Left upper extremity PICC in position.
2. At least moderate left effusion and adjacent atelectasis, increased as compared with prior.
CT AP 06/17/24- LOWER CHEST: Large left pleural effusion with adjacent atelectasis, only partially visualized. Partially visualized bilateral breast implants. Trace pericardial fluid is noted.. Right lung bases clear.
Lower abdominal drainage catheter is in satisfactory positioning within the anterior peritoneal cavity. There is no overt fluid collection within the anterior peritoneal cavity, but rather strandy fluid with gas foci. This is relatively unchanged
compared to the recent CT. Contrast administered through this catheter prior to CT acquisition surrounds the pigtail catheter, but does not extend into the bowel lumen. Findings are consistent with no bowel fistula.
Left upper quadrant drainage catheter is in satisfactory position within a left upper quadrant fluid collection. Interval diminution in size of the left upper quadrant fluid collection now measuring 8.8 x 8.8 cm compared to 10.4 x 9.5 cm previously.
ECHO 12/20/21- Normal left ventricular size and systolic function. No regional wall motion abnormalities are seen. LV ejection fraction is 60-65%. Mild concentric left ventricular hypertrophy. Mild mitral regurgitation. Aortic coarctation stent
history with peak/mean gradients 22/10mmHg. No prior study available for comparison.
-----
Subjective Data
-
Date of Service:
Date of Service: June 25, 2024
Chief Complaint: Pulmonary Follow Up
Subjective:
Patient denies any new pulmonary complaints other than discomfort in the chest tube site entry site.
Tolerated chest tube placement on the left
Review of Systems
General: Fever (n)
Cardiopulmonary: Dyspnea (none at rest)
GI: Abdominal Pain (n) and Nausea (n)
Neuro: Headache (n)
Objective Data
Data Reviewed
Vital Signs / I&O / Oxygen:
Vital Signs
Temp Pulse Resp BP Pulse Ox
98.0 F 74 18 142/66 94
06/25/24 10:46 06/25/24 10:46 06/25/24 10:46 06/25/24 10:46 06/25/24 10:46
Intake and Output
06/24/24 06/25/24 06/26/24
06:59 06:59 06:59
Intake Total 520 / 520 305 / 305
Output Total 1245 / 1245 410 / 410 5 / 5
Balance -725 / -725 -105 / -105 -5 / -5
SaO2 [A/C] 97
SaO2 94
Nasal Cannula flow liters per 3
minute
Physical Exam
General: Respiratory Distress (negative), Comfortable, Chills (negative) and Other (NAD)
HEENT: Normocephalic, Anicteric and Moist Mucous Membranes
Cardiovascular: S1-S2 and Peripheral Edema (Trace lower extremity edema bilaterally)
Respiratory: Wheeze (negative), Crackles (Left middle/left upper lung field), Rhonchi (negative), Non-Labored Respirations and Other (Diminished breath sounds in the left hemithorax)
GI: Soft, Distended (Abdominal obesity), Non Tender, Normal Bowel Sounds and Other (LLQ colostomy in place; midline JODIE drain in place with purulent fluid seen in bulb)
Neurology: Awake, Alert, Oriented, AO x 3 and Tremors (negative)
Skin: Warm, Dry, Good Color, Cyanosis (negative), Jaundice (negative) and Other (Left sub-diaphragmatic JODIE drain in place with serosanguineous fluid seen in bulb)
Labs/Micro/Reports
Lab Data
06/25/24 05:00
06/25/24 05:00
Microbiology
09/30/24 16:45 Pleural Fluid Body Fluid Culture - Preliminary
No Growth After 18-24 Hours
06/24/24 16:45 Pleural Fluid Gram Stain - Preliminary
06/24/24 16:45 Pleural Fluid Fungal Culture - Preliminary
Culture in progress.
Positive cultures are reported as soon as detected.
Final report to follow in four to five weeks.
[2024-06-25] MEDS: INVANZ 60 MG IV (12:02)
[2024-06-25 12:44] LABS: Glucose - Point of Care 126 mg/dl (70-99)
--- NOTE | 2024-06-25 12:49 | W.PN.CRS1 ---
Today's Communication / Plan
-
Continue antibiotics
Assessment/Plan
-
58-year-old female with PMH of recurrent diverticulitis (multiple episodes over the last 25 years), recent UTI on 04/29 seen in the [place] ED, HTN, DM (on Mounjaro), breast cancer s/p resection and chemo, endometrial cancer s/p LETI/BSO,? Aortic
stent who presented with acute abdominal pain, CT concerning for perforated diverticulitis with flecks of free air around the abdomen; patient initially managed nonoperatively as there was no signs of peritonitis or hemodynamic instability; however,
patient did not improve and a repeat CT scan showed worsening pneumoperitoneum with persistent inflammation of the sigmoid colon
POD# 32 Caridad's; postop was on pressors and intubated. Off pressors and extubated by POD2
05/27 CT (for bump in WBC) - LUQ collection c/f perisplenic hematoma, expected post-op changes
06/03 US chest with moderate pleural effusion
06/04 CT with stable perisplenic hematoma, no abscess, necrotic omentum noted
06/09 CT with large 14.7cm midline abscess, ?pericolic gutter abscess, perisplenic collection relatively stable in size
06/10- IR drain placement into midline collection (Cx ESBL and Klebsiella)
06/12- 2 units prbcs
06/14- CT with improving midline abscess, fluid in pericolic gutter still present as was perisplenic collection. IR drain to LUQ collection, final Cx pending, prelim with GNB suggestive of infected hematoma
06/15 Thoracentesis for large left pleural effusion, 750ml removed
06/17- IR fistulogram/CT - no fistula noted
06/18- thoracocentesis
06/24-chest tube placed
Afebrile
WBC normalized
Tolerating diet, stoma productive of stool/flatus
Old blood from LUQ drain
Pus/serous output in the midline drain
- Continue IR drains x2.
- Continue diet
� Appreciate WOCN
- Appreciate PT� recommending rehab for discharge, CM following for placement
� Appreciate hospitalist
- Antibiotics per ID, currently on Invanz
- Analgesics: Meloxicam and gabapentin scheduled, tylenol, tramadol, skelaxin and dilaudid prn
- C/W lovenox and SCDs for VTE ppx
Subjective Data
Procedure
05/22/2024- 1) exploratory laparotomy 2) Caridad's resection (sigmoidectomy with rectopexy)
Subjective Data
Date of Service: June 25, 2024
Patient states she has no complaints. She is tolerating a diet. She has no nausea or vomiting. She has bowel function.
Objective Data
-
Vital Signs
Temp Pulse Resp BP Pulse Ox
98.0 F 74 18 142/66 94
06/25/24 10:46 06/25/24 10:46 06/25/24 10:46 06/25/24 10:46 06/25/24 10:46
Intake & Output
06/24/24 06/25/24 06/26/24
06:59 06:59 06:59
Intake Total 520 / 520 305 / 305
Output Total 1245 / 1245 410 / 410 5 / 5
Balance -725 / -725 -105 / -105 -5 / -5
Intake:
Oral fluids 520 / 520 240 / 240
IV piggybacks 60 / 60
Amount instilled into Drain ( 5 / 5
Total)
Left Upper Abdomen Placed in IR 5 / 5
Output:
Liquid stool amount 275 / 275 25 / 25
Colostomy 275 / 275 25 / 25
CT Output (Total) 75 / 75 5 / 5
Left Lateral 75 / 75 5 / 5
Drain Output (Total) 20 / 20 60 / 60
Left Upper Abdomen Placed in IR 10 / 10 20 / 20
Right Abdomen Placed in IR 10 / 10 40 / 40
Urine, Voided 950 / 950 250 / 250
Other:
How many times incontinent 1
SMALL amount urine
How many times incontinent 1
MODERATE amount urine
How many times incontinent 1 1
SATURATED amount urine
Lab Results
06/25/24 05:00
06/25/24 05:00
Physical Exam
-
General: No Acute Distress and AOx3
Abdomen: Soft, Non Distended, Non Tender and Other (Colostomy warm and pink with function. Right sided drain with car pus, left-sided drain with old blood. Chest tube in place with yellow thin output.)
Skin: Warm and Dry
--- NOTE | 2024-06-25 13:12 | WOUNDNOTE ---
KETURAH RN NOTE: Colostomy pink and flat, peristomal skin intact. Changed appliance today with patient assisting. Patient remains on an air mattress, can turn self, sacral ulcer housecleaner and smaller, dressing changed. Heels remain intact, pillow under
calves. Repositioned patient onto L semi side lying position. Checked CT and JODIE tubing, are intact and draining. Air chair cushion in use when sitting, patient occasionally uses when in bed also to further relieve pressure. Son Anshul at bedside states
he has not received the secure start box and checked several times. confirmed patient's address and son provided his own cell. Will notify [employer] start program. Additional pouches ordered from [facility] and will bring up additional convex wafers
to use along with Mario seals. Nursing can change next appliance and call ostomy nurse if needed.
--- NOTE | 2024-06-25 13:14 | CM ---
Reviewed the chart notes. Chest tube placed yesterday requiring thrombolysis/dornase alpha today. CM continues to be available to patient/family and is monitoring medical plan for needs at discharge.
Plan: Discharge to SNF/rehab once medically stable, bed found, and precert obtained.
[2024-06-25] MEDS: DILAUDID 0.5 MG IV ×3 (13:52→22:09)
[2024-06-25 15:35] VITALS: BP 144/85
[2024-06-25] MEDS: LOVENOX 40 MG SC (17:16)
[2024-06-25] MEDS: CRESTOR 30 MG PO (17:16)
[2024-06-25 17:29] LABS: Glucose - Point of Care 130 mg/dl (70-99)
[2024-06-25 17:47] LABS: Glucose - Point of Care 135 mg/dl (70-99)
[2024-06-25 21:48] LABS: Glucose - Point of Care 108 mg/dl (70-99)
[2024-06-25 23:21] VITALS: BP 141/82
[2024-06-26] VITALS (7 sets, daily range): BP systolic 95–162; BP diastolic 51–90
[2024-06-26] MEDS: DILAUDID 0.5 MG IV ×5 (01:17→22:27)
[2024-06-26 05:42] LABS: % Basophils 0.4 % (0-2); % Eosinophils 2.1 % (0-6); % Immature Granulocytes 0.8 % (0-0.5); % Lymphocytes 16.1 % (20.5-51.1); % Monocytes 8.9 % (1.7-9.3); % Neutrophils 71.7 % (42.2-75.2); Absolute Eosinophils 0.2 10^3/uL (0-0.7); Absolute Immature Granulocytes 0.1 10^3/uL (0-0.05); Absolute Lymphocytes 1.7 10^3/uL (1.2-3.4); Absolute Neutrophils 7.7 10^3/uL (1.4-6.5); Hematocrit 25.4 % (37.0-47.0); Hemoglobin 8.1 g/dL (12.0-16.0); Mean Corp Hgb Conc. 31.9 g/dL (33.0-37.0); Mean Corpuscular Hgb 26.9 pg (27.0-31.0); Mean Corpuscular Volume 84.4 fL (81.0-99.0); Mean Platelet Volume 10.3 fL (7.4-10.4); Nucleated Red Blood Cells % 0 %; Platelet Count 430 10^3/uL (130-400); Red Blood Cell Count 3.01 10^6/uL (4.20-5.40); Red Cell Dist. Width 16.8 % (11.5-14.5); White Blood Cell Count 10.7 10^3/uL (4.8-10.8)
[2024-06-26 06:19] LABS: Blood Urea Nitrogen 19 mg/dl (7-17); Calcium 8.1 mg/dl (8.4-10.2); Carbon Dioxide 30 mmol/L (22-30); Chloride 98 mmol/L (98-107); Estimated Creatinine Clearance 98 ml/min; Glucose 109 mg/dl (70-99); Potassium 3.8 mmol/L (3.5-5.1); Sodium 136 mmol/L (135-145); eGFR > 60.00
--- NOTE | 2024-06-26 07:19 | PN.DE.MGMTRT ---
Insulin Management
- -
06/26/2024: Diabetes Management Follow up:
Patient admitted 05/19 with acute sigmoid diverticulitis with perforation. PMH endometrial CA, breast CA, HTN, HCL, steroid induced diabetes. Prior to admission was taking 19 units NovoLog AC with Mounjaro 2.[address] Cordova
and Omer Ndiaye PA-c at [facility]. Recently was started on Mounjaro and Jardiance and had frequent low blood sugars. She states she could not get an appointment with Omer so she called her primary doctor who told her to stop Lantus and
Jardiance due to hypoglycemia. A1C is 7.4, Cr 1.5, eGFR 39.65. Extubated 05/23, transitioned off of glycemic protocol 05/25.
Patient is awake and A/O x3, resting in bed. Able to discuss diabetes management. Son at bedside.
POD# 35, s/p exp lap/Barbour's procedure with diverting colostomy (05/22/2024)
06/10 drain insertion, 06/14, 2nd drain placement. 06/15 thoracentesis-750cc removed, second thoracentesis - 650 removed 06/18, 06/24 L chest tube placed.
Glucose remains stable and in range, premeal 108 to 135, fasting 109 this AM.
Will make no changes to current regimen: Continue NovoLog 4 units AC with moderate corrective, Farxiga 10 mg daily (at home taking Jardiance 10 mg daily) and Lantus 8 units in AM, with Mounjaro 5 mg weekly on Monday.
Pt states that Jardiance will not be provided to her while in rehab due to cost. She has requested script for Jardiance to be sent to pharmacy so her son can pick it up and have it ready to take to rehab.
Discussed with patient and nurse.
Diabetes History
- -
Type of Diabetes: 2 requiring insulin
Pre-Admission Diabetes Regimen
06/26/24
05:30
Creatinine 0.7
Lab Results
Hemoglobin A1c 7.4 % (4.0-5.6) H 05/20/24 05:23
Insulin Pump Settings
IP Diabetes Regimen
06/25/24 06/25/24 06/25/24
08:35 12:42 17:27
Glucose
POC Glucose 121 H 126 H 130 H
06/25/24 06/25/24 06/26/24
17:45 21:46 05:30
Glucose 109 H
POC Glucose 135 H 108 H
Meal type: Dinner
Meal type: Lunch
Meal type: Breakfast
Amount consumed: 100%
Amount consumed: 100%
Amount consumed: 100%
Patient Education
--- NOTE | 2024-06-26 07:20 | W.PN.HOSP.TC ---
Addendum entered and electronically signed by Cosmo Church MD 06/26/24 13:40:
I saw and evaluated the patient. I reviewed the resident�s note and agree with findings and plan as documented in the resident�s note.
Intrapleural TPA injected yesterday with appropriate response to this
Repeat chest x-ray showing improvement in effusion.
Patient was having significant left-sided pain and discomfort likely due to aggravation of pleurisy pain by expanding lung.
CT tube drain output from Monday is totaling ~ 1300ml this morning, error in charting and CT tube output charted much less than what physically have drained. Continue monitoring CT tube output.
Pleural fluid culture remains negative.
Patient spiked fever of 102F in the night - possible reaction with pleural cavity TPA injection? monitor. No change on abx.
Discussed with ID/pulm
Total time spent : 52 mins
Original Note:
Today's Communication/Plan
-
Continue antibiotic treatment
Monitor CT output
Continue PT/OT
Assessment / Plan
Assessment / Plan
CT c/a/p on 06/23
1).There is moderate left-sided pleural effusion with underlying compressive atelectasis despite the presence of a left-sided chest tube which is at the left lung base laterally
2).There is inflammatory stranding in the central and left mesentery as well as in the pelvis and along the anterior pararenal fascia on the left similar to that seen on the 06/04/2024 study with a pigtail type drainage catheter in an 8 cm midline
anterior abdominal/pelvic abscess which is decreased in size when compared with the prior study.
3). There is left lower abdomen ostomy
4). Diverticula are present in the colon with no CT evidence of diverticulitis

Assessment
58-year-old female with past medical history significant for hypertension, diabetes mellitus, history of breast cancer, history of endometrial cancer s/p hysterectomy, diverticulitis, coarctation of aorta presented to the ER with abdominal
discomfort and was diagnosed with sigmoid diverticulitis with perforation. She is status post Barbour's procedure.
Impression
Acute sigmoid diverticulitis with perforation s/p exploratory laparotomy and Barbour's procedure
Multifactorial shock
Bacteroides bacteremia
Pleural effusion
Acute blood loss anemia
Hypertension
Sinus tachycardia
TIFFANI
Acute transaminitis
Insulin-dependent diabetes mellitus
Coarctation of aorta
Iatrogenic volume overload
Hypercholesterolemia
Plan
#Persistent episodic fever -
-Had isolated spike of 102 yesterday, afebrile today
Infected LUQ hematoma - ESBL ecoli and Klebsiella PNA
-Continue Ertapenem (day 25)
-possible sources in LUQ collection (drain placement 06/14/24 shows fluid culture revealing ESBL E. coli x 2)
-fistulogram per IR without signs of fistula
-ID following and help appreciated.
#Acute sigmoid diverticulitis with perforation, s/p shock
Status post exploratory laparotomy/Barbour's procedure
Bacteroids sp. bacteremia
-appreciate colorectal surgery
-exp lap with ostomy and JODIE drain (still in place) on 05/24/24
#Exudative pleural effusion
-s/p thoracentesis 06/14 with 750 mls drained
-CXR with recurrent effusion
-appreciate IR for repeat thoracentesis, 650 ml clear fluid on 06/18/24
-started back on IV lasix 40mg/d, monitor weight/cr
-Pleural fluid 06/24: Exudative, low WBC count, not likely infected
-Thrombolysis on 06/25 as per IR
- CXR today: Stable position of the left-sided pigtail chest tubes with decreased size of the left pleural effusion, now small, with persistent left basilar atelectasis. No pneumothorax.
-Monitor chest tube output, reporting 100cc today
-Continue PT/OT
#Acute blood loss anemia
-s/p 3 units PRBC this admission
-transfuse if HGB < 7
#TIFFANI
-resolved
#Hyponatremia
-likely volume overload--resolved
#Acute transaminitis
-likely due to all above--resolved
#Type 2 DM
-insulin requiring
-Hemoglobin A1c of 7.4
-appreciate DM [employer] assistance
#H/o Coarctation of the Aorta
-s/p prior aortic stenting
-Continue
#HLD
-cont statin
#Sacral Pressure Wound Stage 3
-most likely due to pressure/position (pt does not really seem motivated to move)
-appreciate wound care
DVT Prophylaxis: Heparin subq
Code Status-- Full Code
Anticipated Discharge: 24 - 48 hours
Subjective/Interval History
-
Date of Service: June 26, 2024
Patient has mild left sided pain from chest tube but otherwise feels fine.
Objective Data
-
Labs:
Laboratory Results
06/26/24
05:30
WBC 10.7
Hgb 8.1 L
Hct 25.4 L
Plt Count 430 H
Sodium 136
Potassium 3.8
Chloride 98
Carbon Dioxide 30
BUN 19 H
Creatinine 0.7
Glucose 109 H
Calcium 8.1 L
Vital Signs:
Vital Signs
Temp Pulse Resp BP Pulse Ox
99.2 F 99 16 144/76 95
06/26/24 06:36 06/26/24 06:36 06/26/24 03:11 06/26/24 06:36 06/26/24 05:22
I&O
06/25/24 06/26/24 06/27/24
06:59 06:59 06:59
Intake Total 305 / 305
Output Total 410 / 410 372 / 372
Balance -105 / -105 -372 / -372
Review of Systems
-
Constitutional: Reports No Symptoms
Respiratory: Reports No Symptoms
Cardiac: Reports No Symptoms
Abdomen/GI: Reports No Symptoms
Physical Exam
-
General: No Apparent Distress
HEENT: Normocephalic
Respiratory: Clear to Auscultation and Chest Tubes
Cardiac: Regular Rhythm and S1/S2
GI: Soft, Nontender, Nondistended and Ostomy
Musculoskeletal: No Edema
Neuro: Awake, Alert and Oriented
Psych: Calm
[2024-06-26 08:40] LABS: Glucose - Point of Care 120 mg/dl (70-99)
[2024-06-26] MEDS: NOVOLOG FLEXPEN-MODERATE RESISTANCE SC ×2 (08:42→17:37)
[2024-06-26] MEDS: PROCARDIA XL (EXTENDED RELEASE) 30 MG PO ×2 (09:24→20:39)
[2024-06-26] MEDS: FARXIGA 10 MG PO (09:24)
[2024-06-26] MEDS: COLACE 100 MG PO ×2 (09:24→20:40)
[2024-06-26] MEDS: COZAAR 50 MG PO ×2 (09:25→20:40)
[2024-06-26] MEDS: PROTONIX 40 MG PO (09:25)
[2024-06-26] MEDS: NEURONTIN 100 MG PO ×3 (09:25→22:05)
[2024-06-26] MEDS: LOPRESSOR 100 MG PO ×2 (09:25→20:40)
[2024-06-26] MEDS: LANTUS 0.08 UNITS SC (09:25)
[2024-06-26] MEDS: LIDOCAINE 4% PATCH 1 PATCH TOPICAL (09:25)
[2024-06-26] MEDS: DESENEX/MITRAZOL/ZEASORB 1 APPLIC TOPICAL ×2 (09:26→20:40)
[2024-06-26] MEDS: NOVOLOG FLEXPEN 4 UNITS SC ×3 (09:26→17:37)
[2024-06-26] MEDS: SANTYL OINTMENT 1 APPLIC TOPICAL (09:26)
[2024-06-26] MEDS: NON-FORMULARY ITEM SC (09:31)
--- NOTE | 2024-06-26 10:47 | W.PN.CRS1 ---
Today's Communication / Plan
-
as below
Assessment/Plan
-
POD 36 s/p Barbour's, complicated by prolonged hospital course, intra-abdominal abscess s/p IR drain, left upper quadrant splenic hematoma s/p IR drain, left-sided atelectasis associated with pleural effusion and possible pneumonia s/p left pigtail
chest tube
S/p left chest tube, s/p pleurodesis on 06/25
AFVSS
WBC 10.7
Continue regular diet
Continue pain control
Continue home meds
Continue ertapenum, appreciate ID, f/u cultures
Continue DVT ppx with lvx
Continue IR drains to bulb suction
Appreciate pulm for mgmt of chest tube
Appreciate hospitalist
Doing well from CRS standpoint
Subjective Data
Procedure
05/22/2024- 1) exploratory laparotomy 2) Caridad's resection (sigmoidectomy with rectopexy)
Subjective Data
Date of Service: June 26, 2024
No overnight events. Had significant pain yesterday after the pleurodesis, but this has improved.
Denies N/V, tolerating a diet. Pain controlled. Having ostomy function.
Objective Data
-
Vital Signs
Temp Pulse Resp BP Pulse Ox
98.5 F 101 18 162/81 90
06/26/24 07:39 06/26/24 07:39 06/26/24 07:39 06/26/24 07:39 06/26/24 07:39
Intake & Output
06/25/24 06/26/24 06/27/24
06:59 06:59 06:59
Intake Total 305 / 305
Output Total 410 / 410 372 / 372
Balance -105 / -105 -372 / -372
Intake:
Oral fluids 240 / 240
IV piggybacks 60 / 60
Amount instilled into Drain ( / 5
Total)
Left Upper Abdomen Placed in IR 5 /
Output:
Liquid stool amount
Colostomy
CT Output (Total) 75 / 75 105 / 105
Left Lateral 75 / 75 105 / 105
Drain Output (Total) 60 / 60
Left Upper Abdomen Placed in IR 20 / 20
Right Abdomen Placed in IR 40 / 40
Urine, Voided 250 / 250 250 / 250
Other:
How many times incontinent 1
SMALL amount urine
How many times incontinent 1
MODERATE amount urine
How many times incontinent 1
SATURATED amount urine
Lab Results
06/26/24 05:30
06/26/24 05:30
Physical Exam
-
General: No Acute Distress and AOx3
HEENT: Grossly Normal
Chest: Other (Left-sided pigtail chest tube to waterseal-1000 mL serous output with flecks of blood clot)
Abdomen: Soft, Non Distended, Non Tender, No Guarding, No Rebound and Other (Ostomy flat, pink, productive of stool; midline incision healing well with some scab, no erythema or drainage, well-approximated; right IR drain with 7ml dull brown/steiner
fibrinous output, LUQ IR drain with 10 mL dark serosanguineous output)
Skin: Warm and Dry
Wound: No Signs of Infection
--- NOTE | 2024-06-26 11:04 | W.PN.PUL3 ---
Today's Communication / Plan
-
Monitor chest tube output
Chest x-ray daily-today's is pending
May need to repeat thrombolysis today, deferred to interventional radiology.
If there is no significant drainage/improvement CT chest will be needed.
Assessment
-
58-year-old woman with past medical history significant for diverticular disease, hypertension, type 2 diabetes who presented to the emergency room complaining of abdominal pain. CT abdomen pelvis performed demonstrated diverticulitis with concern
for perforation. She was followed for 24th for 48 hours on antibiotics, repeat CT showed worsening intraperitoneal air s/p operating room for exploratory laparotomy. She underwent exploratory laparotomy, Barbour's resection on 05/22/2024.
Subsequently in the ICU, intubated, sedated from mechanical ventilation. Transferred to floor 05/25.
We are asked for re-eval for recurrent pleural effusions 06/19/24.
Impression:
Recurrent pleural effusion s/p thora x 2 -effusion started to build up following her perforated viscus and is likely due to translocation of fluid across diaphragm
Acute abdomen: Acute diverticulitis with bowel perforation
CT abdomen pelvis reviewed: Perforated diverticula with intraperitoneal air.
Status post exploratory laparotomy 05/22/2024: Barbour's procedure with sigmoidectomy + colostomy.
Postoperative mechanical ventilation
Extubated 05/23/2024
Septic shock � shock state has resolved
Acute kidney injury metabolic acidosis � both have resolved
Anion gap metabolic acidosis � resolved
Hyperglycemia - resolved
Postoperative anemia due to blood loss/acute
Conditions present prior admission:
Type 2 diabetes
Hypertension
Obesity
History of coarctation of the aorta
Breast cancer status postmastectomy and chemotherapy
Uterine cancer status post hysterectomy
Diverticular disease
Status post breast reconstruction
History of
Aortic stent placement
Cataracts
Plan
transferred to floors 05/25 from ICU.
Extubated 05/23/2024, currently stable on RA
Has not noticed worsening SOB unless she exerts herself
Recurrent left pleural effusion s/p thora x 2
06/18/24 650mL
06/15/24 750mL
Fluid studies reviewed: Pleural fluid 06/15/24: pH 7.41 - TP 3.8 - LDH 386 - Culture neg - Cyto negative for malignancy with acute inflammatory cells present
Serum TP 5.6, LDH 300
Results are mostly indicating exudative fluid, likely parapneumonic vs translocation from intra-abdominal process tho culture negative since being on abx; favor the latter as she clinically has no signs of pneumonia
Repeat CXR showing worsening L sided pleural effusion but would hold off on tapping, as prior taps were minimal
The fluid appears worsened overlying compressive atelectasis on CT imaging
CT chest - 06/23/2024 shows a moderate left-sided pleural effusion with no effusion seen on the right lung.
Status post small bore ultrasound-guided left-sided chest tube placement, interventional radiology correspondence reviewed. Appears loculated
Follow chest tube output, only 80cc overnight.
Pleural fluid from 06/24/2024: Exudative but does not appear significantly inflammatory or infected.
Chest x-ray 06/25/2024:showed persistent left-sided opacity atelectasis with likely component of pleural fluid as well.
Status post IR -for thrombolysis/dornase alpha 06/25/2024.
Drainage overnight only 100 cc
Chest x-ray this morning pending. May need to repeat thrombolysis today 06-26-2024-will defer to interventional radiology.
If there is persistent abnormality on daily chest x-ray may need to obtain CT of the chest to better assess loculations.
Follow cultures from fluid
-
Continue incentive spirometry
Out of bed as able
Encouraged more effort, deep breathing
Continue acapella
Continue nebulizer for secretion clearance.
Status post exploratory laparotomy for acute diverticulitis with perforation
Ostomy care
Follow drain output from midline JODIE drain + left subdiaphragmatic JODIE drain
Colorectal surgery follow
Septic shock/metabolic acidosis-resolved.
Maintained on IV ertapenem as per ID
OOB/Ambulation/PT as able.
Physical therapy/Occupational Therapy consulted
DVT prophylaxis with SCDs/LMWH
Dr. Ayala updated son on 06/24/2024
Will continue to follow.

Diagnostic Data
CXR 06/18/24- 1. Improved left pleural effusion following thoracentesis.
2. No pneumothorax.
CXR 06/21/2024:
1. Left upper extremity PICC in position.
2. At least moderate left effusion and adjacent atelectasis, increased as compared with prior.
CT AP 06/17/24- LOWER CHEST: Large left pleural effusion with adjacent atelectasis, only partially visualized. Partially visualized bilateral breast implants. Trace pericardial fluid is noted.. Right lung bases clear.
Lower abdominal drainage catheter is in satisfactory positioning within the anterior peritoneal cavity. There is no overt fluid collection within the anterior peritoneal cavity, but rather strandy fluid with gas foci. This is relatively unchanged
compared to the recent CT. Contrast administered through this catheter prior to CT acquisition surrounds the pigtail catheter, but does not extend into the bowel lumen. Findings are consistent with no bowel fistula.
Left upper quadrant drainage catheter is in satisfactory position within a left upper quadrant fluid collection. Interval diminution in size of the left upper quadrant fluid collection now measuring 8.8 x 8.8 cm compared to 10.4 x 9.5 cm previously.
ECHO 12/20/21- Normal left ventricular size and systolic function. No regional wall motion abnormalities are seen. LV ejection fraction is 60-65%. Mild concentric left ventricular hypertrophy. Mild mitral regurgitation. Aortic coarctation stent
history with peak/mean gradients 22/10mmHg. No prior study available for comparison.
-----
Subjective Data
-
Date of Service:
Date of Service: June 26, 2024
Chief Complaint: Pulmonary Follow Up
Subjective:
No new overnight events
Tolerated thrombolytics yesterday.
Review of Systems
General: Fever (n)
Cardiopulmonary: Dyspnea (none at rest), Cough and Chest Pain (chest tube entry site.)
GI: Abdominal Pain (n)
Objective Data
Data Reviewed
Vital Signs / I&O / Oxygen:
Vital Signs
Temp Pulse Resp BP Pulse Ox
98.5 F 101 18 162/81 90
06/26/24 07:39 06/26/24 07:39 06/26/24 07:39 06/26/24 07:39 06/26/24 07:39
Intake and Output
06/25/24 06/26/24 06/27/24
06:59 06:59 06:59
Intake Total 305 / 305
Output Total 410 / 410 372 / 372
Balance -105 / -105 -372 / -372
SaO2 [A/C] 97
SaO2 90
Nasal Cannula flow liters per 3
minute
Physical Exam
General: Respiratory Distress (negative), Comfortable, Chills (negative) and Other (NAD)
HEENT: Normocephalic, Anicteric and Moist Mucous Membranes
Cardiovascular: S1-S2 and Peripheral Edema (Trace lower extremity edema bilaterally)
Respiratory: Wheeze (negative), Crackles (Left middle/left upper lung field), Rhonchi (negative), Non-Labored Respirations, Chest Tube (Serosanguineous fluid, no air leak) and Other (Diminished breath sounds in the left hemithorax)
GI: Soft, Distended (Abdominal obesity), Non Tender, Normal Bowel Sounds and Other (LLQ colostomy in place; midline JODIE drain in place with purulent fluid seen in bulb)
Neurology: Awake, Alert, Oriented, AO x 3 and Tremors (negative)
Skin: Warm, Dry, Good Color, Cyanosis (negative), Jaundice (negative) and Other (Left sub-diaphragmatic JODIE drain in place with serosanguineous fluid seen in bulb)
Labs/Micro/Reports
Lab Data
06/26/24 05:30
06/26/24 05:30
Microbiology
06/24/24 16:45 Pleural Fluid Body Fluid Culture - Preliminary
No Growth After 48 Hours
06/24/24 16:45 Pleural Fluid Gram Stain - Preliminary
06/24/24 16:45 Pleural Fluid Fungal Culture - Preliminary
Culture in progress.
Positive cultures are reported as soon as detected.
Final report to follow in four to five weeks.
--- NOTE | 2024-06-26 11:14 | W.PN.ID1 ---
Date of Service
Date of Service: June 26, 2024
Today's Communication
Continue antibiotics.
Assessment / Plan
# Fevers
- improving
# Leukocytosis
- improved
# Diverticulitis with diverticular perforation
- s/p diverting colostomy (05/22/2024).
- Intra-op splenic capsular tear with subsequent hematoma development
# LUQ infected hematoma
-s/p drain placement (06/14/24) - bloody
- Fluid cx: ESBL E. coli x2
- zosyn (05/19 to 05/31); Ertapenam (05/31 to present)
# Anterior abdominal collection/abscess
- s/p drainage (06/10/24)
- Cultures with Klebsiella pneumoniae and ESBL E. coli
# Left pleural effusion
- s/p thoracentesis 750cc cloudy yellow fluid (06/15/24)
- CT placed 06/24. s/p TPA 06/25/24
Hx Bacteroides bacteremia; cleared
HTN
DM
Hx breast CA
Hx endometrial CA
Diverticulitis
Recommendations:
Blood cultures NG.
Continue with ertapenem (d#26)
Follow CT drain output.
Continue to follow white count and temperature curve.
����������������������������������������������������������
Chief Complaint
-: Other (Abdominal infection)
Subjective / Review of Systems
Patient seen and examined. Reports left chest tube discomfort yesterday.
Review of Systems: No Fever and No Chills
Vital Signs / Physical Exam
Vital Signs
Vital Signs
Temp Pulse Resp BP Pulse Ox
98.5 F 101 18 162/81 90
06/26/24 07:39 06/26/24 07:39 06/26/24 07:39 06/26/24 07:39 06/26/24 07:39
Physical Exam
Constitutional: No Acute Distress, Comfortable, Chronically Ill and Non-toxic
Eyes: Sclera Anicteric
Cardiovascular: S1/S2; Negative S3/S4 or Murmur
Pulmonary: Non Labored and Other (Left chest tube in place.)
Gastrointestinal: Soft, Non Tender, Non Distended, Normal Bowel Sounds and Other (Midline incision dry, (+) eschars w/o surrounding erythema; LUQ JODIE drain bloody output, RLQ JODIE drain- serosanguinous fluid)
Extremities: Edema; Negative Erythema
Skin: Warm and Dry; Negative Rash
Neurological: Awake, Alert and AO x 3
Psychological: Calm
Lines: PICC (LUE intact)
Objective Data
Lab Data
Lab Results
06/26/24 05:30
06/26/24 05:30
PT 16.1 Sec (11.4-14.6) H 05/22/24 19:57
INR 1.28 05/22/24 19:57
APTT 28.3 Sec (23.4-35.0) 05/22/24 19:57
Estimated Creat Clear 98 ml/min 06/26/24 05:30
Lactic Acid 1.2 mmol/L (0.7-2.0) 05/20/24 22:09
Total Bilirubin 0.5 mg/dl (0.2-1.3) 06/15/24 07:40
AST 35 U/L (14-36) 06/15/24 07:40
ALT 21 U/L (0-35) 06/15/24 07:40
Alkaline Phosphatase 74 U/L (38-126) 06/15/24 07:40
Most recent labs reviewed.
Micro Results:
06/24/24 16:45 Body Fluid Culture - Preliminary
Pleural Fluid No Growth After 48 Hours
Gram Stain - Preliminary
06/24/24 16:45 Fungal Culture - Preliminary
Pleural Fluid Culture in progress.
Positive cultures are reported as soon as detected.
Final report to follow in four to five weeks.
06/24/24 16:45 Acid Fast Bacilli Smear - Pending
Pleural Fluid Acid Fast Bacilli Culture - Pending
06/16/24 13:28 Blood Culture - Final
Blood/Venous No Growth - Final Report
06/15/24 13:43 Body Fluid Culture - Final
Pleural Fluid No Growth After 72 Hours
Gram Stain - Final
06/14/24 18:10 Body Fluid Culture - Final
Fluid Escherichia coli - ESBL
Escherichia coli - ESBL#2
Gram Stain - Final
06/09/24 10:30 Blood Culture - Final
Blood/Venous No Growth - Final Report
06/09/24 10:29 Blood Culture - Final
Blood/Venous No Growth - Final Report
06/10/24 12:54 Wound Culture - Final
Abdomen Escherichia coli - ESBL
Klebsiella pneumoniae
Gram Stain - Final
06/02/24 12:02 Blood Culture - Final
Blood/Venous No Growth - Final Report
06/02/24 09:36 Blood Culture - Final
Blood/Venous No Growth - Final Report
05/22/24 08:00 Wound Culture - Final
Abdomen Escherichia coli - ESBL
Gram Stain - Final
05/22/24 08:00 Anaerobic Culture - Final
Abdomen
05/19/24 20:48 Blood Culture - Final
Blood/Venous Bacteroides distasonis
Gram Stain - Final
05/21/24 17:56 Blood Culture - Final
Blood/Venous No Growth - Final Report
Imaging:
06/17/2024 CT abdomen/pelvis: Lower abdominal drainage catheter is in satisfactory positioning within the anterior peritoneal cavity. There is no overt fluid collection within the anterior peritoneal cavity, but rather strandy fluid with gas foci.
This is relatively unchanged compared to the recent CT. Contrast administered through this catheter prior to CT acquisition surrounds the pigtail catheter, but does not extend into the bowel lumen. Findings are consistent with no bowel fistula.
Left upper quadrant drainage catheter is in satisfactory position within a left upper quadrant fluid collection. Interval diminution in size of the left upper quadrant fluid collection now measuring 8.8 x 8.8 cm compared to 10.4 x 9.5 cm previously.
06/04/2024 CT abdomen/pelvis with contrast: Heterogeneous collection in the left upper quadrant, superior to the spleen and upper stomach. The patient has a history of splenic laceration during splenic flexure takedown, and this most likely
represents a hematoma. Measurements without significant change from examination of May 27, 2024. Although this was not a CT angiography examination, there is no CT evidence to suggest significant active bleeding. There is fluid in the left
paracolic gutter and extending slightly medially in the left lower abdomen adjacent to small bowel loops. This fluid has slightly increased since examination May 27, 2024. There is a drainage catheter with its tip is in the inferior aspect of
this fluid collection. There is an unusual ovoid fat, fluid, and air density in the midline abdomen posterior to the abdominal wall. This is felt to likely represent necrotic omentum, and superimposed infection cannot be excluded. There is no
evidence of a drainable collection at this time. Moderate subcutaneous edema. This is slightly improved from examination of May 27, 2024.
05/27/2024 CT abdomen/pelvis with contrast: There is 7 x 8 x 3 cm intermediate density heterogeneous left subdiaphragmatic fluid collection containing a small amount of extraluminal gas. Differential diagnosis for this collection includes hematoma
and abscess. Sigmoidectomy with left lower quadrant colostomy. Moderate ascites including areas of loculated fluid in the abdomen and pelvis. Small left pleural effusion with compressive atelectasis at the posterior left lung base. Please see
full dictation for additional detail.
[2024-06-26] MEDS: TYLENOL 650 MG PO (11:35)
[2024-06-26] MEDS: INVANZ 60 MG IV (12:24)
[2024-06-26 12:54] LABS: Glucose - Point of Care 191 mg/dl (70-99)
[2024-06-26] MEDS: NOVOLOG FLEXPEN-MODERATE RESISTANCE 1 UNITS SC (12:54)
--- NOTE | 2024-06-26 13:40 | PTCARENOTE ---
Per markings on chest tube, 950ml drained from chest tube for day shift ([id number]) on 06/25/24. Amount entered in intake and output intervention.
--- NOTE | 2024-06-26 15:11 | CM ---
Reviewed the chart notes. Continues with chest tube and abdominal drains in place. Per PT notes, patient able to ambulate five feet x two. CM continues to be available to patient/family and is monitoring medical plan for needs at discharge.
Plan: Discharge to SNF/rehab once medically stable, bed found, and auth obtained.
[2024-06-26] MEDS: CRESTOR 30 MG PO (16:58)
[2024-06-26] MEDS: LOVENOX 40 MG SC (16:59)
[2024-06-26 17:37] LABS: Glucose - Point of Care 131 mg/dl (70-99)
[2024-06-26] MEDS: ULTRAM 50 MG PO (20:46)
[2024-06-26 22:09] LABS: Glucose - Point of Care 108 mg/dl (70-99)
[2024-06-27 06:50] LABS: % Basophils 0.6 % (0-2); % Eosinophils 3.2 % (0-6); % Immature Granulocytes 0.7 % (0-0.5); % Monocytes 8.1 % (1.7-9.3); % Neutrophils 70.4 % (42.2-75.2); Absolute Basophils 0.1 10^3/uL (0-0.2); Absolute Eosinophils 0.3 10^3/uL (0-0.7); Absolute Immature Granulocytes 0.1 10^3/uL (0-0.05); Absolute Lymphocytes 1.4 10^3/uL (1.2-3.4); Absolute Monocytes 0.7 10^3/uL (0.1-0.6); Absolute Neutrophils 5.8 10^3/uL (1.4-6.5); Hematocrit 26.1 % (37.0-47.0); Hemoglobin 8.5 g/dL (12.0-16.0); Mean Corp Hgb Conc. 32.6 g/dL (33.0-37.0); Mean Corpuscular Hgb 27.7 pg (27.0-31.0); Mean Platelet Volume 10.8 fL (7.4-10.4); Nucleated Red Blood Cells % 0 %; Platelet Count 386 10^3/uL (130-400); Red Blood Cell Count 3.07 10^6/uL (4.20-5.40); Red Cell Dist. Width 16.6 % (11.5-14.5); White Blood Cell Count 8.2 10^3/uL (4.8-10.8)
--- NOTE | 2024-06-27 06:58 | W.PN.HOSP.TC ---
Addendum entered and electronically signed by Cosmo Church MD 06/27/24 12:42:
I saw and evaluated the patient. I reviewed the resident�s note and agree with findings and plan as documented in the resident�s note.
Patient sitting in chair and having minimal left sided discomfort
CT tube draining serous fluid 115ml overnight
Repeat CXR showing improvement in effusion
No reported fever episodes overnight
Pleural fluid culture remains negative
Original Note:
Today's Communication/Plan
-
Monitor CT output
Continue antibiotic
CXR tomorrow
Dispo likely to SNF on Monday, pending availability
Assessment / Plan
Assessment / Plan
CT c/a/p on 06/23
1).There is moderate left-sided pleural effusion with underlying compressive atelectasis despite the presence of a left-sided chest tube which is at the left lung base laterally
2).There is inflammatory stranding in the central and left mesentery as well as in the pelvis and along the anterior pararenal fascia on the left similar to that seen on the 06/04/2024 study with a pigtail type drainage catheter in an 8 cm midline
anterior abdominal/pelvic abscess which is decreased in size when compared with the prior study.
3). There is left lower abdomen ostomy
4). Diverticula are present in the colon with no CT evidence of diverticulitis

Assessment
58-year-old female with past medical history significant for hypertension, diabetes mellitus, history of breast cancer, history of endometrial cancer s/p hysterectomy, diverticulitis, coarctation of aorta presented to the ER with abdominal
discomfort and was diagnosed with sigmoid diverticulitis with perforation. She is status post Barbour's procedure.
Impression
Acute sigmoid diverticulitis with perforation s/p exploratory laparotomy and Barbour's procedure
Multifactorial shock
Bacteroides bacteremia
Pleural effusion
Acute blood loss anemia
Hypertension
Sinus tachycardia
TIFFANI
Acute transaminitis
Insulin-dependent diabetes mellitus
Coarctation of aorta
Iatrogenic volume overload
Hypercholesterolemia
Plan
#Persistent episodic fever -
-Had isolated spike of 102 yesterday, afebrile today
Infected LUQ hematoma - ESBL ecoli and Klebsiella PNA
-Continue Ertapenem (day 26)
-possible sources in LUQ collection (drain placement 06/14/24 shows fluid culture revealing ESBL E. coli x 2)
-fistulogram per IR without signs of fistula
-ID following and help appreciated.
#Acute sigmoid diverticulitis with perforation, s/p shock
Status post exploratory laparotomy/Barbour's procedure
Bacteroids sp. bacteremia
-appreciate colorectal surgery
-exp lap with ostomy and JODIE drain (still in place) on 05/24/24
#Exudative pleural effusion
-s/p thoracentesis 06/14 with 750 mls drained
-CXR with recurrent effusion
-appreciate IR for repeat thoracentesis, 650 ml clear fluid on 06/18/24
-started back on IV lasix 40mg/d, monitor weight/cr
-Pleural fluid 06/24: Exudative, low WBC count, not likely infected
-Thrombolysis on 06/25 as per IR
- CXR today: Small left pleural effusion with associated probable atelectasis, slightly improved.
-Monitor chest tube output, reporting today for total of 1300 (mostly unchanged from yesterday)
-Continue PT/OT
-Dispo likely to SNF on Monday, pending availability
#Acute blood loss anemia
-s/p 3 units PRBC this admission
-transfuse if HGB < 7
#TIFFANI
-resolved
#Hyponatremia
-likely volume overload--resolved
#Acute transaminitis
-likely due to all above--resolved
#Type 2 DM
-insulin requiring
-Hemoglobin A1c of 7.4
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
#H/o Coarctation of the Aorta
-s/p prior aortic stenting
-Continue
#HLD
-cont statin
#Sacral Pressure Wound Stage 3
-most likely due to pressure/position (pt does not really seem motivated to move)
-appreciate wound care
DVT Prophylaxis: Heparin subq
Code Status-- Full Code
Anticipated Discharge: 24 - 48 hours
Subjective/Interval History
-
Date of Service: June 27, 2024
Patient has some mild pain on the left side of chest but otherwise feels fine.
Objective Data
-
Labs:
Laboratory Results
06/27/24
06:19
WBC 8.2
Hgb 8.5 L
Hct 26.1 L
Plt Count 386
Sodium Pending
Potassium Pending
Chloride Pending
Carbon Dioxide Pending
BUN Pending
Creatinine Pending
Glucose Pending
Calcium Pending
Vital Signs:
Vital Signs
Temp Pulse Resp BP Pulse Ox
99.4 F 90 18 146/67 92
06/26/24 23:33 06/26/24 23:33 06/26/24 23:33 06/26/24 23:33 06/27/24 01:32
I&O
06/25/24 06/26/24 06/27/24
06:59 06:59 06:59
Intake Total 305 / 305 705 / 705
Output Total 410 / 410 1322 / 1322 755 / 755
Balance -105 / -105 -1322 / -1322 -50 / -50
Review of Systems
-
All other systems: Reviewed and negative
[2024-06-27 07:09] LABS: Blood Urea Nitrogen 17 mg/dl (7-17); Calcium 8.2 mg/dl (8.4-10.2); Carbon Dioxide 30 mmol/L (22-30); Chloride 99 mmol/L (98-107); Estimated Creatinine Clearance 98 ml/min; Glucose 98 mg/dl (70-99); Potassium 3.6 mmol/L (3.5-5.1); Sodium 138 mmol/L (135-145); eGFR > 60.00
--- NOTE | 2024-06-27 07:20 | PN.DE.MGMTRT ---
Insulin Management
- -
06/27/2024: Diabetes Management Follow up:
Patient admitted 05/19 with acute sigmoid diverticulitis with perforation. PMH endometrial CA, breast CA, HTN, HCL, steroid induced diabetes. Prior to admission was taking 19 units NovoLog AC with Mounjaro 2.[address] Cordova
and Omer Ndiaye PA-c at [facility]. Recently was started on Mounjaro and Jardiance and had frequent low blood sugars. She states she could not get an appointment with Omer so she called her primary doctor who told her to stop Lantus and
Jardiance due to hypoglycemia. A1C is 7.4, Cr 1.5, eGFR 39.65. Extubated 05/23, transitioned off of glycemic protocol 05/25.
Patient is awake and A/O x3, resting in bed. Able to discuss diabetes management. Son at bedside.
POD# 36, s/p exp lap/Barbour's procedure with diverting colostomy (05/22/2024)
06/10 drain insertion, 06/14, 2nd drain placement. 06/15 thoracentesis-750cc removed, second thoracentesis - 650 removed 06/18, 06/24 L chest tube placed.
Glucose remains stable and in range, premeal 109 to 131, one elevation 191 pre lunch yesterday, fasting 98 this AM.
Will make no changes to current regimen: Continue NovoLog 4 units AC with moderate corrective, Farxiga 10 mg daily (at home taking Jardiance 10 mg daily) and Lantus 8 units in AM.
Mounjaro 5 mg weekly was not given on Tuesday 06/26. Family states the pharmacy needs a prior authorization from the ordering provider.
Pt states that Jardiance will not be provided to her while in rehab due to cost. She has requested script for Jardiance to be sent to pharmacy so her son can pick it up and have it ready to take to rehab.
Discussed with patient and nurse.
Diabetes History
- -
Type of Diabetes: 2 requiring insulin
Pre-Admission Diabetes Regimen
06/27/24
06:19
Creatinine 0.7
Lab Results
Hemoglobin A1c 7.4 % (4.0-5.6) H 05/20/24 05:23
Insulin Pump Settings
IP Diabetes Regimen
06/26/24 06/26/24 06/26/24
08:38 12:53 17:36
Glucose
POC Glucose 120 H 191 H 131 H
06/26/24 06/27/24
22:04 06:19
Glucose 98
POC Glucose 108 H
Meal type: Dinner
Meal type: Lunch
Meal type: Breakfast
Amount consumed: 85%
Amount consumed: 50%
Amount consumed: 50%
Patient Education
[2024-06-27 07:26] VITALS: BP 156/79
[2024-06-27 07:59] LABS: Glucose - Point of Care 121 mg/dl (70-99)
[2024-06-27] MEDS: NOVOLOG FLEXPEN-MODERATE RESISTANCE SC ×2 (08:50→17:39)
[2024-06-27] MEDS: NOVOLOG FLEXPEN 4 UNITS SC ×3 (08:50→17:39)
[2024-06-27] MEDS: LANTUS 0.08 UNITS SC (08:50)
[2024-06-27] MEDS: PROTONIX 40 MG PO (08:50)
[2024-06-27] MEDS: LIDOCAINE 4% PATCH 1 PATCH TOPICAL (08:51)
[2024-06-27] MEDS: COLACE 100 MG PO ×2 (08:51→19:48)
[2024-06-27] MEDS: PROCARDIA XL (EXTENDED RELEASE) 30 MG PO ×2 (08:51→19:48)
[2024-06-27] MEDS: LOPRESSOR 100 MG PO ×2 (08:51→19:48)
[2024-06-27] MEDS: COZAAR 50 MG PO ×2 (08:51→19:48)
[2024-06-27] MEDS: NEURONTIN 100 MG PO ×3 (08:51→21:31)
[2024-06-27] MEDS: SANTYL OINTMENT 1 APPLIC TOPICAL (08:52)
[2024-06-27] MEDS: DESENEX/MITRAZOL/ZEASORB 1 APPLIC TOPICAL ×2 (08:52→19:49)
[2024-06-27] MEDS: DILAUDID 0.5 MG IV ×3 (09:17→21:30)
--- NOTE | 2024-06-27 10:22 | W.PN.ID1 ---
Date of Service
Date of Service: June 27, 2024
Today's Communication
Continue antibiotics.
Assessment / Plan
# Fevers
- Improved
# Leukocytosis
- improved / stable
# Diverticulitis with diverticular perforation
- s/p diverting colostomy (05/22/2024).
- Intra-op splenic capsular tear with subsequent hematoma development
# LUQ infected hematoma
-s/p drain placement (06/14/24) - bloody
- Fluid cx: ESBL E. coli x2
- zosyn (05/19 to 05/31); Ertapenam (05/31 to present)
# Anterior abdominal collection/abscess
- s/p drainage (06/10/24)
- Cultures with Klebsiella pneumoniae and ESBL E. coli
# Left pleural effusion
- s/p thoracentesis 750cc cloudy yellow fluid (06/15/24)
- CT placed 06/24. s/p TPA 06/25/24
Hx Bacteroides bacteremia; cleared
HTN
DM
Hx breast CA
Hx endometrial CA
Diverticulitis
Recommendations:
Blood cultures NG.
Continue with ertapenem (d#27)
Follow CT drain output. Will need serial abd CT scanning to follow intra-abdominal fluid collections.
Continue to follow white count and temperature curve.
����������������������������������������������������������
Chief Complaint
-: Other (Abdominal infection. Left pleural effusion)
Subjective / Review of Systems
Review of Systems: No Fever and No Chills
Vital Signs / Physical Exam
Vital Signs
Vital Signs
Temp Pulse Resp BP Pulse Ox
98.7 F 101 14 156/79 93
06/27/24 07:26 06/27/24 08:51 06/27/24 07:26 06/27/24 08:51 06/27/24 07:26
Physical Exam
Constitutional: No Acute Distress, Comfortable, Chronically Ill and Non-toxic
Eyes: Sclera Anicteric
Cardiovascular: S1/S2; Negative S3/S4 or Murmur
Pulmonary: Non Labored and Other (Left chest tube in place.)
Gastrointestinal: Soft, Non Tender, Non Distended, Normal Bowel Sounds and Other (Midline incision dry, (+) eschars w/o surrounding erythema; LUQ JODIE drain bloody output, RLQ JODIE drain- serosanguinous fluid)
Extremities: Edema; Negative Erythema
Skin: Warm and Dry; Negative Rash
Neurological: Awake, Alert and AO x 3
Psychological: Calm
Lines: PICC (LUE intact)
Objective Data
Lab Data
Lab Results
06/27/24 06:19
06/27/24 06:19
PT 16.1 Sec (11.4-14.6) H 05/22/24 19:57
INR 1.28 05/22/24 19:57
APTT 28.3 Sec (23.4-35.0) 05/22/24 19:57
Estimated Creat Clear 98 ml/min 06/27/24 06:19
Lactic Acid 1.2 mmol/L (0.7-2.0) 05/20/24 22:09
Total Bilirubin 0.5 mg/dl (0.2-1.3) 06/15/24 07:40
AST 35 U/L (14-36) 06/15/24 07:40
ALT 21 U/L (0-35) 06/15/24 07:40
Alkaline Phosphatase 74 U/L (38-126) 06/15/24 07:40
Most recent labs reviewed.
Micro Results:
06/24/24 16:45 Body Fluid Culture - Final
Pleural Fluid No Growth After 72 Hours
Gram Stain - Final
06/24/24 16:45 Acid Fast Bacilli Smear - Preliminary
Pleural Fluid Acid Fast Bacilli Culture - Preliminary
06/24/24 16:45 Fungal Culture - Preliminary
Pleural Fluid Culture in progress.
Positive cultures are reported as soon as detected.
Final report to follow in four to five weeks.
06/16/24 13:28 Blood Culture - Final
Blood/Venous No Growth - Final Report
06/15/24 13:43 Body Fluid Culture - Final
Pleural Fluid No Growth After 72 Hours
Gram Stain - Final
06/14/24 18:10 Body Fluid Culture - Final
Fluid Escherichia coli - ESBL
Escherichia coli - ESBL#2
Gram Stain - Final
06/09/24 10:30 Blood Culture - Final
Blood/Venous No Growth - Final Report
06/09/24 10:29 Blood Culture - Final
Blood/Venous No Growth - Final Report
06/10/24 12:54 Wound Culture - Final
Abdomen Escherichia coli - ESBL
Klebsiella pneumoniae
Gram Stain - Final
06/02/24 12:02 Blood Culture - Final
Blood/Venous No Growth - Final Report
06/02/24 09:36 Blood Culture - Final
Blood/Venous No Growth - Final Report
05/22/24 08:00 Wound Culture - Final
Abdomen Escherichia coli - ESBL
Gram Stain - Final
05/22/24 08:00 Anaerobic Culture - Final
Abdomen
05/19/24 20:48 Blood Culture - Final
Blood/Venous Bacteroides distasonis
Gram Stain - Final
05/21/24 17:56 Blood Culture - Final
Blood/Venous No Growth - Final Report
Imaging:
06/17/2024 CT abdomen/pelvis: Lower abdominal drainage catheter is in satisfactory positioning within the anterior peritoneal cavity. There is no overt fluid collection within the anterior peritoneal cavity, but rather strandy fluid with gas foci.
This is relatively unchanged compared to the recent CT. Contrast administered through this catheter prior to CT acquisition surrounds the pigtail catheter, but does not extend into the bowel lumen. Findings are consistent with no bowel fistula.
Left upper quadrant drainage catheter is in satisfactory position within a left upper quadrant fluid collection. Interval diminution in size of the left upper quadrant fluid collection now measuring 8.8 x 8.8 cm compared to 10.4 x 9.5 cm previously.
06/04/2024 CT abdomen/pelvis with contrast: Heterogeneous collection in the left upper quadrant, superior to the spleen and upper stomach. The patient has a history of splenic laceration during splenic flexure takedown, and this most likely
represents a hematoma. Measurements without significant change from examination of May 27, 2024. Although this was not a CT angiography examination, there is no CT evidence to suggest significant active bleeding. There is fluid in the left
paracolic gutter and extending slightly medially in the left lower abdomen adjacent to small bowel loops. This fluid has slightly increased since examination May 27, 2024. There is a drainage catheter with its tip is in the inferior aspect of
this fluid collection. There is an unusual ovoid fat, fluid, and air density in the midline abdomen posterior to the abdominal wall. This is felt to likely represent necrotic omentum, and superimposed infection cannot be excluded. There is no
evidence of a drainable collection at this time. Moderate subcutaneous edema. This is slightly improved from examination of May 27, 2024.
05/27/2024 CT abdomen/pelvis with contrast: There is 7 x 8 x 3 cm intermediate density heterogeneous left subdiaphragmatic fluid collection containing a small amount of extraluminal gas. Differential diagnosis for this collection includes hematoma
and abscess. Sigmoidectomy with left lower quadrant colostomy. Moderate ascites including areas of loculated fluid in the abdomen and pelvis. Small left pleural effusion with compressive atelectasis at the posterior left lung base. Please see
full dictation for additional detail.
[2024-06-27 11:20] VITALS: BP 130/107; PULSE 97
[2024-06-27 12:36] LABS: Glucose - Point of Care 208 mg/dl (70-99)
[2024-06-27] MEDS: INVANZ 60 MG IV (12:39)
[2024-06-27] MEDS: NOVOLOG FLEXPEN-MODERATE RESISTANCE 3 UNITS SC (12:40)
--- NOTE | 2024-06-27 13:42 | W.PN.PUL3 ---
Today's Communication / Plan
-
repeat chest x-ray tomorrow 06/28/2024
Follow chest tube output
depending on chest x-ray and output will consider discontinuation of chest tube tomorrow 06/28/2024
Assessment
-
58-year-old woman with past medical history significant for diverticular disease, hypertension, type 2 diabetes who presented to the emergency room complaining of abdominal pain. CT abdomen pelvis performed demonstrated diverticulitis with concern
for perforation. She was followed for for 48 hours on antibiotics, repeat CT showed worsening intraperitoneal air s/p operating room for exploratory laparotomy. She underwent exploratory laparotomy, Barbour's resection on 05/22/2024.
Subsequently in the ICU, intubated, sedated from mechanical ventilation. Transferred to floor 05/25.
We are asked for re-eval for recurrent pleural effusions 06/19/24.
Impression:
Recurrent pleural effusion s/p thora x 2 -effusion started to build up following her perforated viscus and is likely due to translocation of fluid across diaphragm
Acute abdomen: Acute diverticulitis with bowel perforation
CT abdomen pelvis reviewed: Perforated diverticula with intraperitoneal air.
Status post exploratory laparotomy 05/22/2024: Barbour's procedure with sigmoidectomy + colostomy.
Postoperative mechanical ventilation
Extubated 05/23/2024
Septic shock � shock state has resolved
Acute kidney injury metabolic acidosis � both have resolved
Anion gap metabolic acidosis � resolved
Hyperglycemia - resolved
Postoperative anemia due to blood loss/acute
Conditions present prior admission:
Type 2 diabetes
Hypertension
Obesity
History of coarctation of the aorta
Breast cancer status postmastectomy and chemotherapy
Uterine cancer status post hysterectomy
Diverticular disease
Status post breast reconstruction
History of
Aortic stent placement
Cataracts
Plan
transferred to floors 05/25 from ICU.
Extubated 05/23/2024, currently stable on RA
Has not noticed worsening SOB unless she exerts herself
Recurrent left pleural effusion s/p thora x 2
06/18/24 650mL
06/15/24 750mL
Fluid studies reviewed: Pleural fluid 06/15/24: pH 7.41 - TP 3.8 - LDH 386 - Culture neg - Cyto negative for malignancy with acute inflammatory cells present
Serum TP 5.6, LDH 300
Results are mostly indicating exudative fluid, likely parapneumonic vs translocation from intra-abdominal process tho culture negative since being on abx; favor the latter as she clinically has no signs of pneumonia
Repeat CXR showing worsening L sided pleural effusion but would hold off on tapping, as prior taps were minimal
The fluid appears worsened overlying compressive atelectasis on CT imaging
CT chest - 06/23/2024 shows a moderate left-sided pleural effusion with no effusion seen on the right lung.
Status post small bore ultrasound-guided left-sided chest tube placement, interventional radiology correspondence reviewed. Appears loculated
Follow chest tube output, only 80cc overnight.
Pleural fluid from 06/24/2024: Exudative but does not appear significantly inflammatory or infected.
Chest x-ray 06/25/2024:showed persistent left-sided opacity atelectasis with likely component of pleural fluid as well.
Status post IR -for thrombolysis/dornase alpha 06/25/2024.
chest x-ray 06/27/2024: Improved. Minimal left pleural effusion.
No pneumothorax.
Chest tube output 115 cc 06/27/2024.
Continue follow up
If output drops down under 100 cc and chest x-ray continues to be improved will consider discontinuation either Monday or Monday.
chest x-ray tomorrow morning.
-
Continue incentive spirometry
Out of bed as able
Encouraged more effort, deep breathing
Continue acapella
Continue nebulizer for secretion clearance.
Status post exploratory laparotomy for acute diverticulitis with perforation
Ostomy care
Follow drain output from midline JODIE drain + left subdiaphragmatic JODIE drain
Colorectal surgery follow
Septic shock/metabolic acidosis-resolved.
Maintained on IV ertapenem as per ID
OOB/Ambulation/PT as able.
Physical therapy/Occupational Therapy consulted
DVT prophylaxis with SCDs/LMWH
Dr. Ayala updated son on 06/26/2024
Will continue to follow.

Diagnostic Data
CXR 06/18/24- 1. Improved left pleural effusion following thoracentesis.
2. No pneumothorax.
CXR 06/21/2024:
1. Left upper extremity PICC in position.
2. At least moderate left effusion and adjacent atelectasis, increased as compared with prior.
CT AP 06/17/24- LOWER CHEST: Large left pleural effusion with adjacent atelectasis, only partially visualized. Partially visualized bilateral breast implants. Trace pericardial fluid is noted.. Right lung bases clear.
Lower abdominal drainage catheter is in satisfactory positioning within the anterior peritoneal cavity. There is no overt fluid collection within the anterior peritoneal cavity, but rather strandy fluid with gas foci. This is relatively unchanged
compared to the recent CT. Contrast administered through this catheter prior to CT acquisition surrounds the pigtail catheter, but does not extend into the bowel lumen. Findings are consistent with no bowel fistula.
Left upper quadrant drainage catheter is in satisfactory position within a left upper quadrant fluid collection. Interval diminution in size of the left upper quadrant fluid collection now measuring 8.8 x 8.8 cm compared to 10.4 x 9.5 cm previously.
ECHO 12/20/21- Normal left ventricular size and systolic function. No regional wall motion abnormalities are seen. LV ejection fraction is 60-65%. Mild concentric left ventricular hypertrophy. Mild mitral regurgitation. Aortic coarctation stent
history with peak/mean gradients 22/10mmHg. No prior study available for comparison.
-----
Subjective Data
-
Date of Service:
Date of Service: June 27, 2024
Chief Complaint: Pulmonary Follow Up
Subjective:
patient denies any particular pulmonary complaints
denies cough or hemoptysis.
Denies significant chest pain
Review of Systems
Cardiopulmonary: Dyspnea (none at rest)
GI: Abdominal Pain (n) and Nausea (n)
Objective Data
Data Reviewed
Vital Signs / I&O / Oxygen:
Vital Signs
Temp Pulse Resp BP Pulse Ox
98.7 F 101 14 156/79 93
06/27/24 07:26 06/27/24 08:51 06/27/24 07:26 06/27/24 08:51 06/27/24 07:26
Intake and Output
06/26/24 06/27/24 06/28/24
06:59 06:59 06:59
Intake Total 1185 / 1185
Output Total 1322 / 1322 1455 / 1455
Balance -1322 / -1322 -270 / -270
SaO2 [A/C] 97
SaO2 93
Nasal Cannula flow liters per 3
minute
Physical Exam
General: Respiratory Distress (negative), Comfortable, Chills (negative) and Other (NAD)
HEENT: Normocephalic, Anicteric and Moist Mucous Membranes
Cardiovascular: S1-S2 and Peripheral Edema (Trace lower extremity edema bilaterally)
Respiratory: Wheeze (negative), Crackles (Left middle/left upper lung field), Rhonchi (negative), Non-Labored Respirations, Chest Tube (Serosanguineous fluid, no air leak) and Other (Diminished breath sounds in the left hemithorax)
GI: Soft, Distended (Abdominal obesity), Non Tender, Normal Bowel Sounds and Other (LLQ colostomy in place; midline JODIE drain in place with purulent fluid seen in bulb)
Neurology: Awake, Alert, Oriented, AO x 3 and Tremors (negative)
Skin: Warm, Dry, Good Color, Cyanosis (negative), Jaundice (negative) and Other (Left sub-diaphragmatic JODIE drain in place with serosanguineous fluid seen in bulb)
Labs/Micro/Reports
Lab Data
06/27/24 06:19
06/27/24 06:19
Microbiology
06/24/24 16:45 Pleural Fluid Body Fluid Culture - Final
No Growth After 72 Hours
06/24/24 16:45 Pleural Fluid Gram Stain - Final
06/24/24 16:45 Pleural Fluid Acid Fast Bacilli Smear - Preliminary
06/24/24 16:45 Pleural Fluid Acid Fast Bacilli Culture - Preliminary
06/24/24 16:45 Pleural Fluid Fungal Culture - Preliminary
Culture in progress.
Positive cultures are reported as soon as detected.
Final report to follow in four to five weeks.
[2024-06-27 15:08] VITALS: BP 137/75
--- NOTE | 2024-06-27 15:29 | CM ---
Reviewed the chart notes and spoke with the patient at the bedside. Discussed area SNFs. Patient requested referrals be sent to SNFs that are close to . Referrals sent and print out ratings provided to the patient. Chest tube and abdominal
drains remain. CM continues to be available to patient/family and is monitoring medical plan for needs at discharge.
Plan: Discharge to SNF/rehab once medically stable.
[2024-06-27 17:21] LABS: Glucose - Point of Care 91 mg/dl (70-99)
[2024-06-27] MEDS: LOVENOX 40 MG SC (17:38)
[2024-06-27] MEDS: CRESTOR 30 MG PO (17:38)
[2024-06-27 21:41] LABS: Glucose - Point of Care 115 mg/dl (70-99)
[2024-06-27 23:25] VITALS: BP 137/81
[2024-06-28] VITALS (7 sets, daily range): BP systolic 120–182; BP diastolic 72–99; PULSE 94; O2SAT 95
[2024-06-28 05:27] LABS: Hematocrit 24.2 % (37.0-47.0); Hemoglobin 7.8 g/dL (12.0-16.0); Mean Corp Hgb Conc. 32.2 g/dL (33.0-37.0); Mean Corpuscular Hgb 27.4 pg (27.0-31.0); Mean Corpuscular Volume 84.9 fL (81.0-99.0); Mean Platelet Volume 10.8 fL (7.4-10.4); Platelet Count 379 10^3/uL (130-400); Red Blood Cell Count 2.85 10^6/uL (4.20-5.40); Red Cell Dist. Width 16.5 % (11.5-14.5)
[2024-06-28 05:53] LABS: Blood Urea Nitrogen 15 mg/dl (7-17); Carbon Dioxide 30 mmol/L (22-30); Chloride 101 mmol/L (98-107); Estimated Creatinine Clearance 98 ml/min; Glucose 101 mg/dl (70-99); Potassium 3.4 mmol/L (3.5-5.1); Sodium 140 mmol/L (135-145); eGFR > 60.00
--- NOTE | 2024-06-28 07:24 | PN.DE.MGMTRT ---
Insulin Management
- -
06/28/2024: Diabetes Management F/U:
Patient admitted 05/19 with acute sigmoid diverticulitis with perforation. PMH endometrial CA, breast CA, HTN, HCL, steroid induced diabetes. Prior to admission was taking 19 units NovoLog AC with Mounjaro 2.[address] Cordova
and Omer Ndiaye PA-c at [facility]. Recently was started on Mounjaro and Jardiance and had frequent low blood sugars. She states she could not get an appointment with Omer so she called her primary doctor who told her to stop Lantus and
Jardiance due to hypoglycemia. A1C is 7.4, Cr 1.5, eGFR 39.65. Extubated 05/23, transitioned off of glycemic protocol 05/25.
Patient is awake and A/O x3, resting in bed. Able to discuss diabetes management. Son at bedside.
POD# 37, s/p exp lap/Barbour's procedure with diverting colostomy (05/22/2024)
06/10 drain insertion, 06/14, 2nd drain placement. 06/15 thoracentesis-750cc removed, second thoracentesis - 650 removed 06/18, 06/24 L chest tube placed.
Glucose remains stable and in range, premeal 91 to 121, one elevation to 208 pre lunch yesterday, fasting 101this AM.
Will make no changes to current regimen: Continue NovoLog 4 units AC with moderate corrective, Farxiga 10 mg daily (at home taking Jardiance 10 mg daily) and Lantus 8 units in AM.
Mounjaro 5 mg weekly was not given on Tuesday 06/26. Family states the pharmacy needs a prior authorization from the ordering provider.
Pt states that Jardiance will not be provided to her while in rehab due to cost. She has requested script for Jardiance to be sent to pharmacy so her son can pick it up and have it ready to take to rehab.
Discussed with patient and nurse.
Diabetes History
- -
Type of Diabetes: 2 requiring insulin
Pre-Admission Diabetes Regimen
06/28/24
05:05
Creatinine 0.7
Lab Results
Hemoglobin A1c 7.4 % (4.0-5.6) H 05/20/24 05:23
Insulin Pump Settings
IP Diabetes Regimen
06/27/24 06/27/24 06/27/24
07:58 12:35 17:20
Glucose
POC Glucose 121 H 208 H 91
06/27/24 06/28/24
21:39 05:05
Glucose 101 H
POC Glucose 115 H
Meal type: Dinner
Meal type: Lunch
Meal type: Breakfast
Amount consumed: 100%
Amount consumed: 50%
Amount consumed: 60%
Patient Education
--- NOTE | 2024-06-28 07:24 | W.PN.HOSP.TC ---
Addendum entered and electronically signed by Cosmo Church MD 06/28/24 13:18:
I saw and evaluated the patient. I reviewed the resident�s note and agree with findings and plan as documented in the resident�s note.
Patient remains fever free
Left CT tube output 0 overnight.
Repeat CXR showing stable findings of residual small left effusion
Discussed with pulmonology and tube to be removed today
Having slow down drifting anemia, likely from slow blood loss from drain and from requiring daily blod draw
Heme test negative from stomy stool
Transfuse 1 u if hbg close to7
Morning BP elevated significantly, although drifted down after a.m. dose of blood pressure medication. Continue monitoring
Original Note:
Today's Communication/Plan
-
CXR tomorrow
Monitor CT tube output, likely to remove soon
Continue antibiotic treatment
Monitor BP
Assessment / Plan
Assessment / Plan
Assessment
58-year-old female with past medical history significant for hypertension, diabetes mellitus, history of breast cancer, history of endometrial cancer s/p hysterectomy, diverticulitis, coarctation of aorta presented to the ER with abdominal
discomfort and was diagnosed with sigmoid diverticulitis with perforation. She is status post Barbour's procedure.
Impression
Acute sigmoid diverticulitis with perforation s/p exploratory laparotomy and Barbour's procedure
Multifactorial shock
Bacteroides bacteremia
Pleural effusion
Acute blood loss anemia
Hypertension
Sinus tachycardia
TIFFANI
Acute transaminitis
Insulin-dependent diabetes mellitus
Coarctation of aorta
Iatrogenic volume overload
Hypercholesterolemia
Plan
#Persistent episodic fever -
-afebrile today
Infected LUQ hematoma - ESBL ecoli and Klebsiella PNA
-Continue Ertapenem (day 27)
-possible sources in LUQ collection (drain placement 06/14/24 shows fluid culture revealing ESBL E. coli x 2)
-fistulogram per IR without signs of fistula
-ID following and help appreciated.
#Acute sigmoid diverticulitis with perforation, s/p shock
Status post exploratory laparotomy/Barbour's procedure
Bacteroids sp. bacteremia
-appreciate colorectal surgery
-exp lap with ostomy and JODIE drain (still in place) on 05/24/24
#Exudative pleural effusion
-s/p thoracentesis 06/14 with 750 mls drained
-CXR with recurrent effusion
-appreciate IR for repeat thoracentesis, 650 ml clear fluid on 06/18/24
-started back on IV lasix 40mg/d, monitor weight/cr
-Pleural fluid 06/24: Exudative, low WBC count, not likely infected
-Thrombolysis on 06/25 as per IR
- CXR today: No significant interval change compared to the prior study from 06/27/2024. Left basilar chest tube and left upper quadrant abscess drain are in unchanged position with likely small amount of residual pleural fluid versus atelectasis
within left lung base.
-Monitor chest tube output, reporting today for total of 1300 (mostly unchanged from yesterday)
-Chest tube removal likely today, will discuss with pulm
-Continue PT/OT
-Dispo likely to SNF on Monday, pending availability
#Acute blood loss anemia
-s/p 3 units PRBC this admission
-Hb today at 7.8, monitor
-Check ostomy output for blood
-transfuse if HGB < 7
#Essential HTN
- BPs remains uncontrolled in 180s but then dropped to 130s
- Continue nifedipien 30mg BID, will change to 60mg if still uncontrolled
- Continue hydralazine prn
#TIFFANI
-resolved
#Hyponatremia
-likely volume overload--resolved
#Acute transaminitis
-likely due to all above--resolved
#Type 2 DM
-insulin requiring
-Hemoglobin A1c of 7.4
-appreciate DM MANAGER RESPIRATORY CARE assistance
#H/o Coarctation of the Aorta
-s/p prior aortic stenting
-Continue
#HLD
-cont statin
#Sacral Pressure Wound Stage 3
-most likely due to pressure/position (pt does not really seem motivated to move)
-appreciate wound care
DVT Prophylaxis: Heparin subq
Code Status-- Full Code

CT c/a/p on 06/23
1).There is moderate left-sided pleural effusion with underlying compressive atelectasis despite the presence of a left-sided chest tube which is at the left lung base laterally
2).There is inflammatory stranding in the central and left mesentery as well as in the pelvis and along the anterior pararenal fascia on the left similar to that seen on the 06/04/2024 study with a pigtail type drainage catheter in an 8 cm midline
anterior abdominal/pelvic abscess which is decreased in size when compared with the prior study.
3). There is left lower abdomen ostomy
4). Diverticula are present in the colon with no CT evidence of diverticulitis
Anticipated Discharge: 24 - 48 hours
Subjective/Interval History
-
Date of Service: June 28, 2024
Patient feels overall okay but continues to have mild left-sided pain from the chest tube.
Objective Data
-
Labs:
Laboratory Results
06/28/24
05:05
WBC 8.0
Hgb 7.8 L
Hct 24.2 L
Plt Count 379
Sodium 140
Potassium 3.4 L
Chloride 101
Carbon Dioxide 30
BUN 15
Creatinine 0.7
Glucose 101 H
Calcium 8.0 L
Vital Signs:
Vital Signs
Temp Pulse Resp BP Pulse Ox
100.1 F 90 18 137/81 93
06/27/24 23:25 06/27/24 23:25 06/27/24 23:25 06/27/24 23:25 06/28/24 03:41
I&O
06/27/24 06/28/24 06/29/24
06:59 06:59 06:59
Intake Total 1185 / 1185 795 / 795
Output Total 1455 / 1455 32 / 32
Balance -270 / -270 763 / 763
Review of Systems
-
Respiratory: Reports Other (Mild left-sided chest pain from CT tube)
Cardiac: Reports No Symptoms
Abdomen/GI: Reports No Symptoms
Neuro: Reports No Symptoms
Physical Exam
-
General: No Apparent Distress
HEENT: Normocephalic
Respiratory: Clear to Auscultation
Cardiac: Regular Rhythm and S1/S2
GI: Soft
Musculoskeletal: No Edema
Neuro: Awake, Alert and Oriented
Psych: Calm
[2024-06-28 08:42] LABS: Glucose - Point of Care 116 mg/dl (70-99)
[2024-06-28] MEDS: NOVOLOG FLEXPEN 4 UNITS SC ×3 (09:14→18:06)
[2024-06-28] MEDS: KCL 40 MEQ PO (09:14)
[2024-06-28] MEDS: NOVOLOG FLEXPEN-MODERATE RESISTANCE SC ×2 (09:15→18:07)
[2024-06-28] MEDS: LANTUS 0.08 UNITS SC (09:16)
[2024-06-28] MEDS: DESENEX/MITRAZOL/ZEASORB 1 APPLIC TOPICAL ×2 (09:16→21:00)
[2024-06-28] MEDS: LOPRESSOR 100 MG PO ×2 (09:17→21:00)
[2024-06-28] MEDS: LIDOCAINE 4% PATCH 1 PATCH TOPICAL (09:17)
[2024-06-28] MEDS: COLACE 100 MG PO ×2 (09:17→20:59)
[2024-06-28] MEDS: PROCARDIA XL (EXTENDED RELEASE) 30 MG PO ×2 (09:17→20:59)
[2024-06-28] MEDS: NEURONTIN 100 MG PO ×3 (09:18→20:58)
[2024-06-28] MEDS: PROTONIX 40 MG PO (09:18)
[2024-06-28] MEDS: SANTYL OINTMENT 1 APPLIC TOPICAL (09:18)
[2024-06-28] MEDS: COZAAR 50 MG PO ×2 (09:18→20:59)
[2024-06-28] MEDS: DILAUDID 0.5 MG IV ×3 (09:33→23:07)
[2024-06-28 11:53] LABS: Glucose - Point of Care 174 mg/dl (70-99)
--- NOTE | 2024-06-28 12:10 | W.PN.ID1 ---
Date of Service
Date of Service: June 28, 2024
Today's Communication
Continue antibiotics.
Assessment / Plan
# Fevers
- Improved
# Leukocytosis
- improved / stable
# Diverticulitis with diverticular perforation
- s/p diverting colostomy (05/22/2024).
- Intra-op splenic capsular tear with subsequent hematoma development
# LUQ infected hematoma
-s/p drain placement (06/14/24) - bloody
- Fluid cx: ESBL E. coli x2
- zosyn (05/19 to 05/31); Ertapenam (05/31 to present)
# Anterior abdominal collection/abscess
- s/p drainage (06/10/24)
- Cultures with Klebsiella pneumoniae and ESBL E. coli
# Left pleural effusion
- s/p thoracentesis 750cc cloudy yellow fluid (06/15/24)
- CT placed 06/24. s/p TPA 06/25/24
Hx Bacteroides bacteremia; cleared
HTN
DM
Hx breast CA
Hx endometrial CA
Diverticulitis
Recommendations:
Blood cultures NG.
Continue with ertapenem (d#28)
Follow CT drain output. Will need serial abd CT scanning to follow intra-abdominal fluid collections.
Continue to follow white count and temperature curve.
Monitor pleural fluid output
����������������������������������������������������������
Chief Complaint
-: Other (Abdominal infection. Left pleural effusion)
Subjective / Review of Systems
Review of Systems: No Fever and No Chills
Vital Signs / Physical Exam
Vital Signs
Vital Signs
Temp Pulse Resp BP Pulse Ox
99.3 F 103 18 185/95 94
06/28/24 07:50 06/28/24 09:18 06/28/24 07:50 06/28/24 09:18 06/28/24 07:50
Physical Exam
Constitutional: No Acute Distress, Comfortable, Chronically Ill and Non-toxic
Eyes: Sclera Anicteric
Pulmonary: Non Labored and Other (Left chest tube in place. Straw-colored pleural fluid drainage)
Gastrointestinal: Soft, Non Tender, Non Distended, Normal Bowel Sounds and Other (Midline incision dry, (+) eschars w/o surrounding erythema; LUQ JODIE drain bloody output, RLQ OJDIE drain- serosanguinous fluid)
Extremities: Edema; Negative Erythema
Skin: Warm and Dry; Negative Rash
Neurological: Awake, Alert and AO x 3
Psychological: Calm
Lines: PICC (LUE intact)
Objective Data
Lab Data
Lab Results
06/28/24 05:05
06/28/24 05:05
PT 16.1 Sec (11.4-14.6) H 05/22/24 19:57
INR 1.28 05/22/24 19:57
APTT 28.3 Sec (23.4-35.0) 05/22/24 19:57
Estimated Creat Clear 98 ml/min 06/28/24 05:05
Lactic Acid 1.2 mmol/L (0.7-2.0) 05/20/24 22:09
Total Bilirubin 0.5 mg/dl (0.2-1.3) 06/15/24 07:40
AST 35 U/L (14-36) 06/15/24 07:40
ALT 21 U/L (0-35) 06/15/24 07:40
Alkaline Phosphatase 74 U/L (38-126) 06/15/24 07:40
Most recent labs reviewed.
Micro Results:
06/24/24 16:45 Body Fluid Culture - Final
Pleural Fluid No Growth After 72 Hours
Gram Stain - Final
06/24/24 16:45 Acid Fast Bacilli Smear - Preliminary
Pleural Fluid Acid Fast Bacilli Culture - Preliminary
06/24/24 16:45 Fungal Culture - Preliminary
Pleural Fluid Culture in progress.
Positive cultures are reported as soon as detected.
Final report to follow in four to five weeks.
06/16/24 13:28 Blood Culture - Final
Blood/Venous No Growth - Final Report
06/15/24 13:43 Body Fluid Culture - Final
Pleural Fluid No Growth After 72 Hours
Gram Stain - Final
06/14/24 18:10 Body Fluid Culture - Final
Fluid Escherichia coli - ESBL
Escherichia coli - ESBL#2
Gram Stain - Final
06/09/24 10:30 Blood Culture - Final
Blood/Venous No Growth - Final Report
06/09/24 10:29 Blood Culture - Final
Blood/Venous No Growth - Final Report
06/10/24 12:54 Wound Culture - Final
Abdomen Escherichia coli - ESBL
Klebsiella pneumoniae
Gram Stain - Final
06/02/24 12:02 Blood Culture - Final
Blood/Venous No Growth - Final Report
06/02/24 09:36 Blood Culture - Final
Blood/Venous No Growth - Final Report
05/22/24 08:00 Wound Culture - Final
Abdomen Escherichia coli - ESBL
Gram Stain - Final
05/22/24 08:00 Anaerobic Culture - Final
Abdomen
05/19/24 20:48 Blood Culture - Final
Blood/Venous Bacteroides distasonis
Gram Stain - Final
05/21/24 17:56 Blood Culture - Final
Blood/Venous No Growth - Final Report
Imaging:
06/17/2024 CT abdomen/pelvis: Lower abdominal drainage catheter is in satisfactory positioning within the anterior peritoneal cavity. There is no overt fluid collection within the anterior peritoneal cavity, but rather strandy fluid with gas foci.
This is relatively unchanged compared to the recent CT. Contrast administered through this catheter prior to CT acquisition surrounds the pigtail catheter, but does not extend into the bowel lumen. Findings are consistent with no bowel fistula.
Left upper quadrant drainage catheter is in satisfactory position within a left upper quadrant fluid collection. Interval diminution in size of the left upper quadrant fluid collection now measuring 8.8 x 8.8 cm compared to 10.4 x 9.5 cm previously.
06/04/2024 CT abdomen/pelvis with contrast: Heterogeneous collection in the left upper quadrant, superior to the spleen and upper stomach. The patient has a history of splenic laceration during splenic flexure takedown, and this most likely
represents a hematoma. Measurements without significant change from examination of May 27, 2024. Although this was not a CT angiography examination, there is no CT evidence to suggest significant active bleeding. There is fluid in the left
paracolic gutter and extending slightly medially in the left lower abdomen adjacent to small bowel loops. This fluid has slightly increased since examination May 27, 2024. There is a drainage catheter with its tip is in the inferior aspect of
this fluid collection. There is an unusual ovoid fat, fluid, and air density in the midline abdomen posterior to the abdominal wall. This is felt to likely represent necrotic omentum, and superimposed infection cannot be excluded. There is no
evidence of a drainable collection at this time. Moderate subcutaneous edema. This is slightly improved from examination of May 27, 2024.
05/27/2024 CT abdomen/pelvis with contrast: There is 7 x 8 x 3 cm intermediate density heterogeneous left subdiaphragmatic fluid collection containing a small amount of extraluminal gas. Differential diagnosis for this collection includes hematoma
and abscess. Sigmoidectomy with left lower quadrant colostomy. Moderate ascites including areas of loculated fluid in the abdomen and pelvis. Small left pleural effusion with compressive atelectasis at the posterior left lung base. Please see
full dictation for additional detail.
[2024-06-28] MEDS: NOVOLOG FLEXPEN-MODERATE RESISTANCE 1 UNITS SC (12:51)
[2024-06-28] MEDS: INVANZ 60 MG IV (12:51)
--- NOTE | 2024-06-28 13:01 | W.PN.PUL3 ---
Today's Communication / Plan
-
Discontinue chest tube
Interventional radiology will be contacted
Continue antibiotics for intra-abdominal process
Incentive spirometry
Nutritional support
Increase activity as able
Assessment
-
58-year-old woman with past medical history significant for diverticular disease, hypertension, type 2 diabetes who presented to the emergency room complaining of abdominal pain. CT abdomen pelvis performed demonstrated diverticulitis with concern
for perforation. She was followed for 24 for 48 hours on antibiotics, repeat CT showed worsening intraperitoneal air s/p operating room for exploratory laparotomy. She underwent exploratory laparotomy, Barbour's resection on 05/22/2024.
Subsequently in the ICU, intubated, sedated from mechanical ventilation. Transferred to floor 05/25.
We are asked for re-eval for recurrent pleural effusions 06/19/24.
Impression:
Recurrent pleural effusion s/p thora x 2 -effusion started to build up following her perforated viscus and is likely due to translocation of fluid across diaphragm
Acute abdomen: Acute diverticulitis with bowel perforation
CT abdomen pelvis reviewed: Perforated diverticula with intraperitoneal air.
Status post exploratory laparotomy 05/22/2024: Barbour's procedure with sigmoidectomy + colostomy.
Postoperative mechanical ventilation
Extubated 05/23/2024
Septic shock � shock state has resolved
transferred to floors 05/25 from ICU.
Acute kidney injury metabolic acidosis � both have resolved
Anion gap metabolic acidosis � resolved
Hyperglycemia - resolved
Postoperative anemia due to blood loss/acute
Conditions present prior admission:
Type 2 diabetes
Hypertension
Obesity
History of coarctation of the aorta
Breast cancer status postmastectomy and chemotherapy
Uterine cancer status post hysterectomy
Diverticular disease
Status post breast reconstruction
History of
Aortic stent placement
Cataracts
Plan
Respiratory status remains stable
On room air with adequate oxygenation
Has not noticed worsening SOB unless she exerts herself
Recurrent left pleural effusion s/p thora x 2
06/18/24 650mL
06/15/24 750mL
Fluid studies reviewed: Pleural fluid 06/15/24: pH 7.41 - TP 3.8 - LDH 386 - Culture neg - Cyto negative for malignancy with acute inflammatory cells present
Serum TP 5.6, LDH 300
Results are mostly indicating exudative fluid, likely parapneumonic vs translocation from intra-abdominal process tho culture negative since being on abx; favor the latter as she clinically has no signs of pneumonia
Repeat CXR showing worsening L sided pleural effusion but would hold off on tapping, as prior taps were minimal
The fluid appears worsened overlying compressive atelectasis on CT imaging
CT chest - 06/23/2024 shows a moderate left-sided pleural effusion with no effusion seen on the right lung.
Status post small bore ultrasound-guided left-sided chest tube placement, interventional radiology correspondence reviewed. Appears loculated
Follow chest tube output, only 80cc overnight.
Pleural fluid from 06/24/2024: Exudative but does not appear significantly inflammatory or infected.
Chest x-ray 06/25/2024:showed persistent left-sided opacity atelectasis with likely component of pleural fluid as well.
Status post IR -for thrombolysis/dornase alpha 06/25/2024.
chest x-ray 06/28/2024: Improved. Minimal left pleural effusion. There is subsegmental atelectasis on the left.
No pneumothorax.
Chest tube output 115 cc 06/27/2024.
Chest tube output 0 06/28/2024
Will discontinue chest tube, I will contact interventional radiology.
Continue to repeat chest x-rays as needed for reaccumulation.
-
Continue incentive spirometry
Out of bed as able
Encouraged more effort, deep breathing
Continue acapella
Continue nebulizer for secretion clearance.
Status post exploratory laparotomy for acute diverticulitis with perforation
Ostomy care
Follow drain output from midline JODIE drain + left subdiaphragmatic JODIE drain
Colorectal surgery follow
Septic shock/metabolic acidosis-resolved.
Maintained on IV ertapenem as per ID
OOB/Ambulation/PT as able.
Physical therapy/Occupational Therapy consulted
DVT prophylaxis with SCDs/LMWH
Dr. Ayala updated son on 06/27/2024
Will continue to follow.

Diagnostic Data
CXR 06/18/24- 1. Improved left pleural effusion following thoracentesis.
2. No pneumothorax.
CXR 06/21/2024:
1. Left upper extremity PICC in position.
2. At least moderate left effusion and adjacent atelectasis, increased as compared with prior.
CT AP 06/17/24- LOWER CHEST: Large left pleural effusion with adjacent atelectasis, only partially visualized. Partially visualized bilateral breast implants. Trace pericardial fluid is noted.. Right lung bases clear.
Lower abdominal drainage catheter is in satisfactory positioning within the anterior peritoneal cavity. There is no overt fluid collection within the anterior peritoneal cavity, but rather strandy fluid with gas foci. This is relatively unchanged
compared to the recent CT. Contrast administered through this catheter prior to CT acquisition surrounds the pigtail catheter, but does not extend into the bowel lumen. Findings are consistent with no bowel fistula.
Left upper quadrant drainage catheter is in satisfactory position within a left upper quadrant fluid collection. Interval diminution in size of the left upper quadrant fluid collection now measuring 8.8 x 8.8 cm compared to 10.4 x 9.5 cm previously.
ECHO 12/20/21- Normal left ventricular size and systolic function. No regional wall motion abnormalities are seen. LV ejection fraction is 60-65%. Mild concentric left ventricular hypertrophy. Mild mitral regurgitation. Aortic coarctation stent
history with peak/mean gradients 22/10mmHg. No prior study available for comparison.
-----
Subjective Data
-
Date of Service:
Date of Service: June 28, 2024
Chief Complaint: Pulmonary Follow Up
Subjective:
No overnight pulmonary events
Chest tube output minimal overnight
Denies any chest pain
Denies any cough or phlegm production
Review of Systems
General: Fever (n)
Cardiopulmonary: Dyspnea (none at rest)
GI: Abdominal Pain (n)
Objective Data
Data Reviewed
Vital Signs / I&O / Oxygen:
Vital Signs
Temp Pulse Resp BP Pulse Ox
98.8 F 80 18 132/72 95
06/28/24 12:32 06/28/24 12:32 06/28/24 12:32 06/28/24 12:32 06/28/24 12:32
Intake and Output
06/27/24 06/28/24 06/29/24
06:59 06:59 06:59
Intake Total 1185 / 1185 795 / 795
Output Total 1455 / 1455 300 / 300
Balance -270 / -270 763 / 763 -300 / -300
SaO2 [A/C] 97
SaO2 95
Nasal Cannula flow liters per 3
minute
Physical Exam
General: Respiratory Distress (negative), Comfortable, Chills (negative) and Other (NAD)
HEENT: Normocephalic, Anicteric and Moist Mucous Membranes
Cardiovascular: S1-S2 and Peripheral Edema (Trace lower extremity edema bilaterally)
Respiratory: Wheeze (negative), Crackles (Left middle/left upper lung field), Rhonchi (negative), Non-Labored Respirations, Chest Tube (Serosanguineous fluid, no air leak) and Other (Diminished breath sounds in the left hemithorax)
GI: Soft, Distended (Abdominal obesity), Non Tender, Normal Bowel Sounds and Other (LLQ colostomy in place; midline JODIE drain in place with purulent fluid seen in bulb)
Neurology: Awake, Alert, Oriented, AO x 3 and Tremors (negative)
Skin: Warm, Dry, Good Color, Cyanosis (negative), Jaundice (negative) and Other (Left sub-diaphragmatic JODIE drain in place with serosanguineous fluid seen in bulb)
Labs/Micro/Reports
Lab Data
06/28/24 05:05
06/28/24 05:05
Microbiology
06/24/24 16:45 Pleural Fluid Body Fluid Culture - Final
No Growth After 72 Hours
06/24/24 16:45 Pleural Fluid Gram Stain - Final
06/24/24 16:45 Pleural Fluid Acid Fast Bacilli Smear - Preliminary
06/24/24 16:45 Pleural Fluid Acid Fast Bacilli Culture - Preliminary
--- NOTE | 2024-06-28 13:41 | PTCARENOTE ---
patient's chest tube removed by Irad as ordered. No s/s of distress noted at this time. Dressing intact and dry. plan of care ongoing.
--- NOTE | 2024-06-28 13:49 | PN.IRAD.UPD ---
Update Note - IRAD
- -
left chest tube removed at bedside. New,dry,clean dressing placed over site . Patient tolerated procedure well.
--- NOTE | 2024-06-28 15:56 | CM ---
seen by pulmonary,chest tube to be dc,cont iv abx,sating okay on ra.Plan:snf when stable for dc.
[2024-06-28] MEDS: LOVENOX 40 MG SC (17:34)
[2024-06-28] MEDS: CRESTOR 30 MG PO (17:37)
[2024-06-28 17:59] LABS: Glucose - Point of Care 116 mg/dl (70-99)
[2024-06-28] MEDS: TYLENOL 650 MG PO (23:06)
[2024-06-28] MEDS: APRESOLINE 10 MG IV (23:06)
[2024-06-29 00:17] LABS: Glucose - Point of Care 118 mg/dl (70-99)
[2024-06-29 03:24] VITALS: BP 143/76
--- NOTE | 2024-06-29 07:35 | W.PN.HOSP.TC ---
Addendum entered and electronically signed by Cosmo Church MD 06/29/24 13:19:
I saw and evaluated the patient. I reviewed the resident�s note and agree with findings and plan as documented in the resident�s note.
Patient not having any further dyspnea
Left-sided chest discomfort is better as well
Chest x-ray from morning reviewed and small residual pleural effusion, no pneumothorax
Patient had episode of fever in the morning
Maintained on Invanz therapy, discussed with ID
Patient cleared for longterm facility for rehab
Original Note:
Today's Communication/Plan
-
CXR tomorrow
Continue antibiotic
Monitor BP, temp curve
Dispo likely Monday
Assessment / Plan
Assessment / Plan
Assessment
58-year-old female with past medical history significant for hypertension, diabetes mellitus, history of breast cancer, history of endometrial cancer s/p hysterectomy, diverticulitis, coarctation of aorta presented to the ER with abdominal
discomfort and was diagnosed with sigmoid diverticulitis with perforation. She is status post Barbour's procedure.
Impression
Acute sigmoid diverticulitis with perforation s/p exploratory laparotomy and Barbour's procedure
Multifactorial shock
Bacteroides bacteremia
Pleural effusion
Acute blood loss anemia
Hypertension
Sinus tachycardia
TIFFANI
Acute transaminitis
Insulin-dependent diabetes mellitus
Coarctation of aorta
Iatrogenic volume overload
Hypercholesterolemia
Plan
#Persistent episodic fever
-had spike of 101.2 in AM, afebrile in afternoon
-follow temp curve
Infected LUQ hematoma - ESBL ecoli and Klebsiella PNA
-Continue Ertapenem (day 29)
-possible sources in LUQ collection (drain placement 06/14/24 shows fluid culture revealing ESBL E. coli x 2)
-fistulogram per IR without signs of fistula
-ID following and help appreciated.
#Acute sigmoid diverticulitis with perforation, s/p shock
Status post exploratory laparotomy/Barbour's procedure
Bacteroids sp. bacteremia
-appreciate colorectal surgery
-exp lap with ostomy and JODIE drain (still in place) on 05/24/24
#Exudative pleural effusion
-s/p thoracentesis 06/14 with 750 mls drained
-CXR with recurrent effusion
-appreciate IR for repeat thoracentesis, 650 ml clear fluid on 06/18/24
-started back on IV lasix 40mg/d, monitor weight/cr
-Pleural fluid 06/24: Exudative, low WBC count, not likely infected
-Thrombolysis on 06/25 as per IR, CT tube removed on 06/28
- CXR today: Small left pleural effusion. No pneumothorax.
-Continue PT/OT
-Dispo likely to SNF on Monday, pending availability
#Acute blood loss anemia
-s/p 3 units PRBC this admission
-Hb today at 8.3, monitor
-transfuse if HGB < 7
#Essential HTN
- BP fluctuates between 180s but then dropped to 130s
- Changed nifedipine to 60mg BID
- Continue hydralazine prn
#TIFFANI
-resolved
#Hyponatremia
-likely volume overload--resolved
#Acute transaminitis
-likely due to all above--resolved
#Type 2 DM
-insulin requiring
-Hemoglobin A1c of 7.4
-appreciate DM ADMITTING COUNSELOR assistance
#H/o Coarctation of the Aorta
-s/p prior aortic stenting
-Continue
#HLD
-cont statin
#Sacral Pressure Wound Stage 3
-most likely due to pressure/position (pt does not really seem motivated to move)
-appreciate wound care
DVT Prophylaxis: Heparin subq
Code Status-- Full Code

CT c/a/p on 06/23
1).There is moderate left-sided pleural effusion with underlying compressive atelectasis despite the presence of a left-sided chest tube which is at the left lung base laterally
2).There is inflammatory stranding in the central and left mesentery as well as in the pelvis and along the anterior pararenal fascia on the left similar to that seen on the 06/04/2024 study with a pigtail type drainage catheter in an 8 cm midline
anterior abdominal/pelvic abscess which is decreased in size when compared with the prior study.
3). There is left lower abdomen ostomy
4). Diverticula are present in the colon with no CT evidence of diverticulitis
Anticipated Discharge: 24 - 48 hours
Subjective/Interval History
-
Date of Service: June 29, 2024
Patient states that her left side pain from where the chest tube was initially inserted has greatly improved since discontinuation of chest tube. She otherwise has no other complaints.
Objective Data
-
Labs:
Laboratory Results
06/29/24
06:00
WBC Pending
Hgb Pending
Hct Pending
Plt Count Pending
Sodium Pending
Potassium Pending
Chloride Pending
Carbon Dioxide Pending
BUN Pending
Creatinine Pending
Glucose Pending
Calcium Pending
Vital Signs:
Vital Signs
Temp Pulse Resp BP Pulse Ox
99.2 F 98 18 143/76 93
06/29/24 03:24 06/29/24 03:24 06/29/24 03:24 06/29/24 03:24 06/29/24 03:24
I&O
06/28/24 06/29/24 06/30/24
06:59 06:59 06:59
Intake Total 795 / 795 480 / 480
Output Total 32 / 32 757 / 757 225 / 225
Balance 763 / 763 -277 / -277 -225 / -225
Review of Systems
-
Respiratory: Reports No Symptoms
Cardiac: Reports No Symptoms
Skin: Reports No Symptoms
Neuro: Reports No Symptoms
Physical Exam
-
General: No Apparent Distress
HEENT: Normocephalic
Respiratory: Clear to Auscultation
Cardiac: Regular Rhythm and S1/S2
GI: Soft and Other (JODIE drain)
Musculoskeletal: No Edema
Skin: Warm and Dry
Neuro: Awake, Alert and Oriented
Psych: Calm
[2024-06-29 07:40] VITALS: BP 189/95
[2024-06-29] MEDS: PROTONIX 40 MG PO (07:51)
[2024-06-29] MEDS: COLACE 100 MG PO ×2 (07:51→20:42)
[2024-06-29] MEDS: ULTRAM 50 MG PO ×2 (07:51→15:38)
[2024-06-29] MEDS: TYLENOL 650 MG PO ×2 (07:51→20:58)
[2024-06-29] MEDS: COZAAR 50 MG PO ×2 (07:51→20:42)
[2024-06-29] MEDS: LIDOCAINE 4% PATCH 1 PATCH TOPICAL (07:52)
[2024-06-29] MEDS: LOPRESSOR 100 MG PO ×2 (07:52→20:42)
[2024-06-29] MEDS: NEURONTIN 100 MG PO ×3 (07:52→20:41)
[2024-06-29] MEDS: PROCARDIA XL (EXTENDED RELEASE) 30 MG PO (07:56)
[2024-06-29 08:02] LABS: Glucose - Point of Care 137 mg/dl (70-99)
[2024-06-29 08:50] LABS: Blood Urea Nitrogen 10 mg/dl (7-17); Calcium 8.2 mg/dl (8.4-10.2); Carbon Dioxide 29 mmol/L (22-30); Chloride 102 mmol/L (98-107); Estimated Creatinine Clearance 115 ml/min; Glucose 136 mg/dl (70-99); Potassium 3.8 mmol/L (3.5-5.1); Sodium 141 mmol/L (135-145); eGFR > 60.00
[2024-06-29 08:51] LABS: % Basophils 0.5 % (0-2); % Eosinophils 4.1 % (0-6); % Immature Granulocytes 0.8 % (0-0.5); % Lymphocytes 14.2 % (20.5-51.1); % Monocytes 8.6 % (1.7-9.3); % Neutrophils 71.8 % (42.2-75.2); Absolute Eosinophils 0.3 10^3/uL (0-0.7); Absolute Immature Granulocytes 0.1 10^3/uL (0-0.05); Absolute Lymphocytes 1.1 10^3/uL (1.2-3.4); Absolute Monocytes 0.7 10^3/uL (0.1-0.6); Absolute Neutrophils 5.5 10^3/uL (1.4-6.5); Hemoglobin 8.3 g/dL (12.0-16.0); Mean Corp Hgb Conc. 31.9 g/dL (33.0-37.0); Mean Corpuscular Hgb 27.2 pg (27.0-31.0); Mean Corpuscular Volume 85.2 fL (81.0-99.0); Mean Platelet Volume 10.9 fL (7.4-10.4); Nucleated Red Blood Cells % 0 %; Platelet Count 382 10^3/uL (130-400); Red Blood Cell Count 3.05 10^6/uL (4.20-5.40); Red Cell Dist. Width 16.5 % (11.5-14.5); White Blood Cell Count 7.6 10^3/uL (4.8-10.8)
[2024-06-29] MEDS: SANTYL OINTMENT 1 APPLIC TOPICAL (09:17)
[2024-06-29] MEDS: NOVOLOG FLEXPEN-MODERATE RESISTANCE SC ×2 (09:19→12:31)
[2024-06-29] MEDS: NOVOLOG FLEXPEN 4 UNITS SC ×3 (09:20→17:41)
[2024-06-29] MEDS: LANTUS 0.08 UNITS SC (09:23)
[2024-06-29] MEDS: DESENEX/MITRAZOL/ZEASORB 1 APPLIC TOPICAL ×2 (09:25→20:48)
--- NOTE | 2024-06-29 10:32 | W.PN.CRS1 ---
Today's Communication / Plan
-
doing well from CRS standpoint
continue drains
Assessment/Plan
-
POD 37 s/p Barbour's, complicated by prolonged hospital course, intra-abdominal abscess s/p IR drain, left upper quadrant splenic hematoma s/p IR drain, left-sided atelectasis associated with pleural effusion and possible pneumonia s/p left pigtail
chest tube
S/p left chest tube, s/p pleurodesis on 06/25
101.2 overnight
WBC 7.9
Continue regular diet
Continue pain control
Continue home meds
Continue ertapenum, appreciate ID, f/u cultures
Continue DVT ppx with lvx
Continue IR drains to bulb suction
Appreciate hospitalist
Doing well from CRS standpoint
Subjective Data
Procedure
05/22/2024- 1) exploratory laparotomy 2) Caridad's resection (sigmoidectomy with rectopexy)
Subjective Data
Date of Service: June 29, 2024
Patient states she feels well. She has no complaints.
Objective Data
-
Vital Signs
Temp Pulse Resp BP Pulse Ox
101.2 F H 111 16 189/95 93
06/29/24 07:40 06/29/24 07:40 06/29/24 07:40 06/29/24 07:40 06/29/24 07:40
Intake & Output
06/28/24 06/29/24 06/30/24
06:59 06:59 06:59
Intake Total 795 / 795 480 / 480
Output Total 757 / 757 425 / 425
Balance 763 / 763 -277 / -277 -425 / -425
Intake:
Oral fluids 720 / 720 480 / 480
IV piggybacks 60 / 60
Amount instilled into Drain (
Total)
Left Upper Abdomen Placed in IR /
Right Abdomen Placed in IR
Output:
Liquid stool amount 300 / 300 425 / 425
Colostomy 300 / 300 425 / 425
CT Output (Total) 0 / 0 0 / 0
Left Lateral 0 / 0 0 / 0
Drain Output (Total) /
Left Upper Abdomen Placed in IR
Right Abdomen Placed in IR 2
Urine, Voided 450 / 450
Other:
Number of approximated MODERATE 1
amounts of urine
How many times incontinent 3
MODERATE amount urine
Lab Results
06/29/24 08:05
06/29/24 08:05
Physical Exam
-
General: No Acute Distress and AOx3
Abdomen: Soft, Non Distended, Non Tender and Other (colostomy warm and pink with output)
Skin: Warm and Dry
[2024-06-29] MEDS: FLUSH (NSS) 2 FLUSH IV (11:21)
[2024-06-29] MEDS: INVANZ 60 MG IV (11:21)
[2024-06-29 12:12] LABS: Glucose - Point of Care 106 mg/dl (70-99)
[2024-06-29 12:29] VITALS: BP 134/60
--- NOTE | 2024-06-29 12:42 | W.PN.PUL3 ---
Today's Communication / Plan
-
Chest tube discontinued, stable on RA, no new complaints
Continue on IV abx per ID
Encouraged OOB/PT/IS
Discharge planning to SNF per team
Assessment
-
58-year-old woman with past medical history significant for diverticular disease, hypertension, type 2 diabetes who presented to the emergency room complaining of abdominal pain. CT abdomen pelvis performed demonstrated diverticulitis with concern
for perforation. She was followed for 24th for 48 hours on antibiotics, repeat CT showed worsening intraperitoneal air s/p operating room for exploratory laparotomy. She underwent exploratory laparotomy, Barbour's resection on 05/22/2024.
Subsequently in the ICU, intubated, sedated from mechanical ventilation. Transferred to floor 05/25.
We are asked for re-eval for recurrent pleural effusions 06/19/24.
Impression:
Recurrent pleural effusion s/p thora x 2 -effusion started to build up following her perforated viscus and is likely due to translocation of fluid across diaphragm
s/p chest tube insertion 06/24/24, s/p tpa/dornase 06/25/24; discontinued 06/28
Acute abdomen: Acute diverticulitis with bowel perforation
CT abdomen pelvis reviewed: Perforated diverticula with intraperitoneal air.
Status post exploratory laparotomy 05/22/2024: Barbour's procedure with sigmoidectomy + colostomy.
Postoperative mechanical ventilation
Extubated 05/23/2024
Septic shock � shock state has resolved
transferred to floors 05/25 from ICU.
Acute kidney injury metabolic acidosis � both have resolved
Anion gap metabolic acidosis � resolved
Hyperglycemia - resolved
Postoperative anemia due to blood loss/acute
Conditions present prior admission:
Type 2 diabetes
Hypertension
Obesity
History of coarctation of the aorta
Breast cancer status postmastectomy and chemotherapy
Uterine cancer status post hysterectomy
Diverticular disease
Status post breast reconstruction
History of
Aortic stent placement
Cataracts
Plan
Respiratory status remains stable
On room air with adequate oxygenation
Has not noticed worsening SOB unless she exerts herself
Recurrent left pleural effusion s/p thora x 2
06/18/24 650mL
06/15/24 750mL
Fluid studies reviewed: Pleural fluid 06/15/24: pH 7.41 - TP 3.8 - LDH 386 - Culture neg - Cyto negative for malignancy with acute inflammatory cells present
Serum TP 5.6, LDH 300
Results are mostly indicating exudative fluid, likely parapneumonic vs translocation from intra-abdominal process tho culture negative since being on abx; favor the latter as she clinically has no signs of pneumonia
Repeat CXR showing worsening L sided pleural effusion but would hold off on tapping, as prior taps were minimal
The fluid appears worsened overlying compressive atelectasis on CT imaging
CT chest - 06/23/2024 shows a moderate left-sided pleural effusion with no effusion seen on the right lung.
Status post small bore ultrasound-guided left-sided chest tube placement, interventional radiology correspondence reviewed. Appears loculated
Chest tube discontinued 06/28/24
Continue to repeat chest x-rays as needed for reaccumulation.
Continue incentive spirometry
Out of bed as able
Encouraged more effort, deep breathing
Continue acapella
Continue nebulizer for secretion clearance.
Status post exploratory laparotomy for acute diverticulitis with perforation
Ostomy care
Follow drain output from midline JODIE drain + left subdiaphragmatic JODIE drain
Colorectal surgery follow
Septic shock/metabolic acidosis-resolved.
Maintained on IV ertapenem as per ID
OOB/Ambulation/PT as able.
Physical therapy/Occupational Therapy consulted
DVT prophylaxis with SCDs/LMWH
Dr. Ayala updated son on 06/27/2024
Discharge planning to SNF per team

Diagnostic Data
CXR 06/18/24- 1. Improved left pleural effusion following thoracentesis.
2. No pneumothorax.
CXR 06/21/2024:
1. Left upper extremity PICC in position.
2. At least moderate left effusion and adjacent atelectasis, increased as compared with prior.
CT AP 06/17/24- LOWER CHEST: Large left pleural effusion with adjacent atelectasis, only partially visualized. Partially visualized bilateral breast implants. Trace pericardial fluid is noted.. Right lung bases clear.
Lower abdominal drainage catheter is in satisfactory positioning within the anterior peritoneal cavity. There is no overt fluid collection within the anterior peritoneal cavity, but rather strandy fluid with gas foci. This is relatively unchanged
compared to the recent CT. Contrast administered through this catheter prior to CT acquisition surrounds the pigtail catheter, but does not extend into the bowel lumen. Findings are consistent with no bowel fistula.
Left upper quadrant drainage catheter is in satisfactory position within a left upper quadrant fluid collection. Interval diminution in size of the left upper quadrant fluid collection now measuring 8.8 x 8.8 cm compared to 10.4 x 9.5 cm previously.
ECHO 12/20/21- Normal left ventricular size and systolic function. No regional wall motion abnormalities are seen. LV ejection fraction is 60-65%. Mild concentric left ventricular hypertrophy. Mild mitral regurgitation. Aortic coarctation stent
history with peak/mean gradients 22/10mmHg. No prior study available for comparison.
-----
Subjective Data
-
Date of Service:
Date of Service: June 29, 2024
Chief Complaint: Pulmonary Follow Up
Subjective:
Stable overnight, currently on RA
Sleeping in bed, has not gotten OOB yet today
Chest tube discontinued
No new complaints
Objective Data
Data Reviewed
Vital Signs / I&O / Oxygen:
Vital Signs
Temp Pulse Resp BP Pulse Ox
98.7 F 76 16 134/60 93
06/29/24 12:29 06/29/24 12:29 06/29/24 07:40 06/29/24 12:29 06/29/24 07:40
Intake and Output
06/28/24 06/29/24 06/30/24
06:59 06:59 06:59
Intake Total 795 / 795 480 / 480
Output Total 32 / 32 757 / 757 425 / 425
Balance 763 / 763 -277 / -277 -425 / -425
SaO2 [A/C] 97
SaO2 93
Nasal Cannula flow liters per 3
minute
Physical Exam
General: Respiratory Distress (negative), Comfortable, Chills (negative) and Other (NAD)
HEENT: Normocephalic, Anicteric and Moist Mucous Membranes
Cardiovascular: S1-S2, Regular Rhythm and Peripheral Edema (Trace lower extremity edema bilaterally)
Respiratory: Clear and Non-Labored Respirations
GI: Soft, Distended (Abdominal obesity), Non Tender, Normal Bowel Sounds and Other (LLQ colostomy in place; midline JOIDE drain in place with purulent fluid seen in bulb)
Neurology: Awake, Alert, Oriented, AO x 3 and Tremors (negative)
Skin: Warm, Dry, Good Color, Cyanosis (negative), Jaundice (negative) and Other (Left sub-diaphragmatic JODIE drain in place with serosanguineous fluid seen in bulb)
Labs/Micro/Reports
Lab Data
06/29/24 08:05
06/29/24 08:05
Microbiology
06/24/24 16:45 Pleural Fluid Body Fluid Culture - Final
No Growth After 72 Hours
06/24/24 16:45 Pleural Fluid Gram Stain - Final
06/24/24 16:45 Pleural Fluid Acid Fast Bacilli Smear - Preliminary
06/24/24 16:45 Pleural Fluid Acid Fast Bacilli Culture - Preliminary
--- NOTE | 2024-06-29 14:55 | CM ---
Case management following for discharge planning
Pt and son requesting to see CM
Updated on facilities accepting
Prefer [facility]
Updates sent in [facility]
Plan - anticipate SNF when bed obtained and medically ready
[2024-06-29 15:30] VITALS: BP 188/91
[2024-06-29] MEDS: APRESOLINE 10 MG IV (15:37)
[2024-06-29 17:37] LABS: Glucose - Point of Care 166 mg/dl (70-99)
[2024-06-29] MEDS: NOVOLOG FLEXPEN-MODERATE RESISTANCE 1 UNITS SC (17:41)
[2024-06-29] MEDS: LOVENOX 40 MG SC (17:42)
[2024-06-29] MEDS: CRESTOR 30 MG PO (17:42)
[2024-06-29] MEDS: PROCARDIA XL (EXTENDED RELEASE) 60 MG PO (20:41)
[2024-06-29 21:33] LABS: Glucose - Point of Care 215 mg/dl (70-99)
[2024-06-29 22:57] VITALS: BP 115/61
[2024-06-29] MEDS: DILAUDID 0.5 MG IV (23:09)
[2024-06-30 06:15] LABS: % Basophils 0.6 % (0-2); % Eosinophils 5.2 % (0-6); % Immature Granulocytes 0.8 % (0-0.5); % Lymphocytes 19.2 % (20.5-51.1); % Monocytes 9.1 % (1.7-9.3); % Neutrophils 65.1 % (42.2-75.2); Absolute Eosinophils 0.4 10^3/uL (0-0.7); Absolute Immature Granulocytes 0.1 10^3/uL (0-0.05); Absolute Lymphocytes 1.4 10^3/uL (1.2-3.4); Absolute Monocytes 0.7 10^3/uL (0.1-0.6); Absolute Neutrophils 4.7 10^3/uL (1.4-6.5); Hematocrit 24.9 % (37.0-47.0); Mean Corp Hgb Conc. 32.1 g/dL (33.0-37.0); Mean Corpuscular Hgb 27.6 pg (27.0-31.0); Mean Corpuscular Volume 85.9 fL (81.0-99.0); Mean Platelet Volume 10.6 fL (7.4-10.4); Nucleated Red Blood Cells % 0 %; Platelet Count 341 10^3/uL (130-400); Red Cell Dist. Width 16.6 % (11.5-14.5); White Blood Cell Count 7.2 10^3/uL (4.8-10.8)
[2024-06-30 06:34] LABS: Blood Urea Nitrogen 8 mg/dl (7-17); Calcium 8.1 mg/dl (8.4-10.2); Carbon Dioxide 30 mmol/L (22-30); Chloride 102 mmol/L (98-107); Estimated Creatinine Clearance 115 ml/min; Glucose 115 mg/dl (70-99); Potassium 3.4 mmol/L (3.5-5.1); Sodium 141 mmol/L (135-145); eGFR > 60.00
--- NOTE | 2024-06-30 07:31 | W.PN.HOSP.TC ---
Addendum entered and electronically signed by Cosmo Church MD 06/30/24 13:09:
I saw and evaluated the patient. I reviewed the resident�s note and agree with findings and plan as documented in the resident�s note.
Patient resting comfortably in chair
No further fever episode, discussed with ID and will require Invanz for another 3 weeks
Patient will require follow-up with ID in office
JODIE drain in place, colorectal surgery recommended for discharge with the drain.
Patient will need to follow-up with colorectal surgery in office
Left side chest tube out, have some pleurisy pain although improving significantly after tube out
Chest x-ray on 06/29 showing residual small effusion
Repeat pulmonary imaging if any clinical concern of reoccurrence
Uncontrolled/multidrug-resistant Hypotension
Already on max dose of losartan/Lopressor/Procardia. Aldactone added monitor potassium, patient remains hypokalemic on and off
Patient can potentially be transition to Lopressor to Coreg as well for added blood pressure control benefit if needed
Discharge planning for snf rehab
Original Note:
Today's Communication/Plan
-
Continue antibiotic
Monitor BP, addition of spironolactone
Dispo likely tomorrow to rehab
Assessment / Plan
Assessment / Plan
Assessment
58-year-old female with past medical history significant for hypertension, diabetes mellitus, history of breast cancer, history of endometrial cancer s/p hysterectomy, diverticulitis, coarctation of aorta presented to the ER with abdominal
discomfort and was diagnosed with sigmoid diverticulitis with perforation. She is status post Barbour's procedure.
Impression
Acute sigmoid diverticulitis with perforation s/p exploratory laparotomy and Barbour's procedure
Multifactorial shock
Bacteroides bacteremia
Pleural effusion
Acute blood loss anemia
Hypertension
Sinus tachycardia
TIFFANI
Acute transaminitis
Insulin-dependent diabetes mellitus
Coarctation of aorta
Iatrogenic volume overload
Hypercholesterolemia
Plan
#Persistent episodic fever
-Afebrile today
-follow temp curve
Infected LUQ hematoma - ESBL ecoli and Klebsiella PNA
-Continue Ertapenem (day 30)- will continue course in rehab upon discharge
-possible sources in LUQ collection (drain placement 06/14/24 shows fluid culture revealing ESBL E. coli x 2)
-fistulogram per IR without signs of fistula
-ID following and help appreciated.
#Acute sigmoid diverticulitis with perforation, s/p shock
Status post exploratory laparotomy/Barbour's procedure
Bacteroids sp. bacteremia
-appreciate colorectal surgery
-exp lap with ostomy and JODIE drain (still in place) on 05/24/24
#Exudative pleural effusion
-s/p thoracentesis 06/14 with 750 mls drained
-CXR with recurrent effusion
-appreciate IR for repeat thoracentesis, 650 ml clear fluid on 06/18/24
-started back on IV lasix 40mg/d, monitor weight/cr
-Pleural fluid 06/24: Exudative, low WBC count, not likely infected
-Thrombolysis on 06/25 as per IR, CT tube removed on 06/28
- CXR 06/28: Unchanged from previous CXRs. Small left pleural effusion. No pneumothorax.
-Continue PT/OT
-Dispo likely to SNF on Monday, pending availability
#Acute blood loss anemia
-s/p 3 units PRBC this admission
-Hb today at 8.3, monitor
-transfuse if HGB < 7
#Essential HTN
- BP uncontrolled between 180s but then dropped to 130s
- Continue nifedipine to 60mg BID
-Added spironolactone
- Continue hydralazine prn
#TIFFANI
-resolved
#Hyponatremia
-likely volume overload--resolved
#Acute transaminitis
-likely due to all above--resolved
#Type 2 DM
-insulin requiring
-Hemoglobin A1c of 7.4
-appreciate DM PIN INSERTER assistance
#H/o Coarctation of the Aorta
-s/p prior aortic stenting
-Continue
#HLD
-cont statin
#Sacral Pressure Wound Stage 3
-most likely due to pressure/position (pt does not really seem motivated to move)
-appreciate wound care
DVT Prophylaxis: Heparin subq
Code Status-- Full Code

CT c/a/p on 06/23
1).There is moderate left-sided pleural effusion with underlying compressive atelectasis despite the presence of a left-sided chest tube which is at the left lung base laterally
2).There is inflammatory stranding in the central and left mesentery as well as in the pelvis and along the anterior pararenal fascia on the left similar to that seen on the 06/04/2024 study with a pigtail type drainage catheter in an 8 cm midline
anterior abdominal/pelvic abscess which is decreased in size when compared with the prior study.
3). There is left lower abdomen ostomy
4). Diverticula are present in the colon with no CT evidence of diverticulitis
Anticipated Discharge: 24 - 48 hours
Subjective/Interval History
-
Date of Service: June 30, 2024
Patient says she has a mild dry cough but otherwise feels well.
Objective Data
-
Labs:
Laboratory Results
06/30/24
05:52
WBC 7.2
Hgb 8.0 L
Hct 24.9 L
Plt Count 341
Sodium 141
Potassium 3.4 L
Chloride 102
Carbon Dioxide 30
BUN 8
Creatinine 0.5 L
Glucose 115 H
Calcium 8.1 L
Vital Signs:
Vital Signs
Temp Pulse Resp BP Pulse Ox
99.5 F 72 16 115/61 95
06/29/24 22:57 06/29/24 22:57 06/29/24 22:57 06/29/24 22:57 06/29/24 22:57
I&O
06/29/24 06/30/24 07/01/24
06:59 06:59 06:59
Intake Total 480 / 480 1970 / 1969
Output Total 757 / 757 755 / 755
Balance -277 / -277 1215 / 1215
Review of Systems
-
All other systems: Reviewed and negative
Physical Exam
-
General: No Apparent Distress
HEENT: Normocephalic
Respiratory: Clear to Auscultation
Cardiac: Regular Rhythm and S1/S2
GI: Soft and Other (JODIE drain)
Musculoskeletal: No Edema
Skin: Warm and Dry
Neuro: Awake, Alert and Oriented
Psych: Calm
[2024-06-30 07:50] VITALS: BP 175/84
[2024-06-30 08:28] LABS: Glucose - Point of Care 118 mg/dl (70-99)
[2024-06-30] MEDS: NOVOLOG FLEXPEN-MODERATE RESISTANCE SC ×2 (08:44→18:19)
[2024-06-30] MEDS: LIDOCAINE 4% PATCH 1 PATCH TOPICAL (08:45)
[2024-06-30] MEDS: COLACE 100 MG PO ×2 (08:46→21:00)
[2024-06-30] MEDS: PROTONIX 40 MG PO (08:46)
[2024-06-30] MEDS: KCL 40 MEQ PO (08:46)
[2024-06-30] MEDS: LOPRESSOR 100 MG PO ×2 (08:46→21:00)
[2024-06-30] MEDS: COZAAR 50 MG PO ×2 (08:46→21:00)
[2024-06-30] MEDS: NEURONTIN 100 MG PO ×3 (08:46→22:16)
[2024-06-30] MEDS: PROCARDIA XL (EXTENDED RELEASE) 60 MG PO ×2 (08:46→21:00)
[2024-06-30] MEDS: NOVOLOG FLEXPEN 4 UNITS SC ×3 (08:50→18:25)
[2024-06-30] MEDS: LANTUS 0.08 UNITS SC (08:51)
[2024-06-30] MEDS: SANTYL OINTMENT 1 APPLIC TOPICAL (08:51)
[2024-06-30] MEDS: DESENEX/MITRAZOL/ZEASORB 1 APPLIC TOPICAL ×2 (08:54→21:00)
[2024-06-30] MEDS: TYLENOL 650 MG PO (09:51)
[2024-06-30 13:12] LABS: Glucose - Point of Care 172 mg/dl (70-99)
[2024-06-30] MEDS: NOVOLOG FLEXPEN-MODERATE RESISTANCE 1 UNITS SC (13:17)
[2024-06-30] MEDS: FLUSH (NSS) 2 FLUSH IV (13:17)
[2024-06-30] MEDS: INVANZ 60 MG IV (13:17)
[2024-06-30] MEDS: ALDACTONE 25 MG PO (13:20)
[2024-06-30] MEDS: ULTRAM 50 MG PO (13:27)
--- NOTE | 2024-06-30 13:40 | W.PN.PUL3 ---
Today's Communication / Plan
-
remains stable on room air, no new complaints
continue IV abx, drains in place
continue rehab, pt/ot
discharge planning to snf per team
Assessment
-
58-year-old woman with past medical history significant for diverticular disease, hypertension, type 2 diabetes who presented to the emergency room complaining of abdominal pain. CT abdomen pelvis performed demonstrated diverticulitis with concern
for perforation. She was followed for 24th for 48 hours on antibiotics, repeat CT showed worsening intraperitoneal air s/p operating room for exploratory laparotomy. She underwent exploratory laparotomy, Barbour's resection on 05/22/2024.
Subsequently in the ICU, intubated, sedated from mechanical ventilation. Transferred to floor 05/25.
We are asked for re-eval for recurrent pleural effusions 06/19/24.
Impression:
Recurrent pleural effusion s/p thora x 2 -effusion started to build up following her perforated viscus and is likely due to translocation of fluid across diaphragm
s/p chest tube insertion 06/24/24, s/p tpa/dornase 06/25/24; discontinued 06/28
Acute abdomen: Acute diverticulitis with bowel perforation
CT abdomen pelvis reviewed: Perforated diverticula with intraperitoneal air.
Status post exploratory laparotomy 05/22/2024: Barbour's procedure with sigmoidectomy + colostomy.
Postoperative mechanical ventilation
Extubated 05/23/2024
Septic shock � shock state has resolved
transferred to floors 05/25 from ICU.
Acute kidney injury metabolic acidosis � both have resolved
Anion gap metabolic acidosis � resolved
Hyperglycemia - resolved
Postoperative anemia due to blood loss/acute
Conditions present prior admission:
Type 2 diabetes
Hypertension
Obesity
History of coarctation of the aorta
Breast cancer status postmastectomy and chemotherapy
Uterine cancer status post hysterectomy
Diverticular disease
Status post breast reconstruction
History of
Aortic stent placement
Cataracts
Plan
Respiratory status remains stable
On room air with adequate oxygenation
Has not noticed worsening SOB unless she exerts herself
Recurrent left pleural effusion s/p thora x 2
06/18/24 650mL
06/15/24 750mL
Fluid studies reviewed: Pleural fluid 06/15/24: pH 7.41 - TP 3.8 - LDH 386 - Culture neg - Cyto negative for malignancy with acute inflammatory cells present
Serum TP 5.6, LDH 300
Results are mostly indicating exudative fluid, likely parapneumonic vs translocation from intra-abdominal process tho culture negative since being on abx; favor the latter as she clinically has no signs of pneumonia
Repeat CXR showing worsening L sided pleural effusion but would hold off on tapping, as prior taps were minimal
The fluid appears worsened overlying compressive atelectasis on CT imaging
CT chest - 06/23/2024 shows a moderate left-sided pleural effusion with no effusion seen on the right lung.
Status post small bore ultrasound-guided left-sided chest tube placement, interventional radiology correspondence reviewed. Appears loculated
Chest tube discontinued 06/28/24
Continue to repeat chest x-rays as needed for reaccumulation.
Continue incentive spirometry
Out of bed as able
Encouraged more effort, deep breathing
Continue acapella
Continue nebulizer for secretion clearance.
Status post exploratory laparotomy for acute diverticulitis with perforation
Ostomy care
Follow drain output from midline JODIE drain + left subdiaphragmatic JODIE drain
Colorectal surgery follow
Septic shock/metabolic acidosis-resolved.
Maintained on IV ertapenem as per ID
OOB/Ambulation/PT as able.
Physical therapy/Occupational Therapy consulted
DVT prophylaxis with SCDs/LMWH
Dr. Ayala updated son on 06/27/2024
Discharge planning to SNF per team

Diagnostic Data
CXR 06/18/24- 1. Improved left pleural effusion following thoracentesis.
2. No pneumothorax.
CXR 06/21/2024:
1. Left upper extremity PICC in position.
2. At least moderate left effusion and adjacent atelectasis, increased as compared with prior.
CT AP 06/17/24- LOWER CHEST: Large left pleural effusion with adjacent atelectasis, only partially visualized. Partially visualized bilateral breast implants. Trace pericardial fluid is noted.. Right lung bases clear.
Lower abdominal drainage catheter is in satisfactory positioning within the anterior peritoneal cavity. There is no overt fluid collection within the anterior peritoneal cavity, but rather strandy fluid with gas foci. This is relatively unchanged
compared to the recent CT. Contrast administered through this catheter prior to CT acquisition surrounds the pigtail catheter, but does not extend into the bowel lumen. Findings are consistent with no bowel fistula.
Left upper quadrant drainage catheter is in satisfactory position within a left upper quadrant fluid collection. Interval diminution in size of the left upper quadrant fluid collection now measuring 8.8 x 8.8 cm compared to 10.4 x 9.5 cm previously.
ECHO 12/20/21- Normal left ventricular size and systolic function. No regional wall motion abnormalities are seen. LV ejection fraction is 60-65%. Mild concentric left ventricular hypertrophy. Mild mitral regurgitation. Aortic coarctation stent
history with peak/mean gradients 22/10mmHg. No prior study available for comparison.
-----
Total time spent on this encounter __35__ includes review of history, physical exam, medications, laboratory data, personal review of imaging, extensive review of outpatient records, discussion with care team and respiratory therapy.
Subjective Data
-
Date of Service:
Date of Service: June 30, 2024
Chief Complaint: Pulmonary Follow Up
Subjective:
no new complaints
stable on room air
Objective Data
Data Reviewed
Vital Signs / I&O / Oxygen:
Vital Signs
Temp Pulse Resp BP Pulse Ox
98.8 F 101 16 175/84 95
06/30/24 07:50 06/30/24 07:50 06/30/24 07:50 06/30/24 07:50 06/30/24 07:50
Intake and Output
06/29/24 06/30/24 07/01/24
06:59 06:59 06:59
Intake Total 480 / 480 1970 / 1970
Output Total 757 / 757 755 / 755
Balance -277 / -277 1215 / 1215
SaO2 [A/C] 97
SaO2 95
Nasal Cannula flow liters per 3
minute
Physical Exam
General: Respiratory Distress (negative), Comfortable, Chills (negative) and Other (NAD)
HEENT: Normocephalic, Anicteric and Moist Mucous Membranes
Cardiovascular: S1-S2, Regular Rhythm and Peripheral Edema (Trace lower extremity edema bilaterally)
Respiratory: Clear and Non-Labored Respirations
GI: Soft, Distended (Abdominal obesity), Non Tender, Normal Bowel Sounds and Other (LLQ colostomy in place; midline JODIE drain in place with purulent fluid seen in bulb)
Neurology: Awake, Alert, Oriented, AO x 3 and Tremors (negative)
Skin: Warm, Dry, Good Color, Cyanosis (negative), Jaundice (negative) and Other (Left sub-diaphragmatic JODIE drain in place with serosanguineous fluid seen in bulb)
Labs/Micro/Reports
Lab Data
06/30/24 05:52
06/30/24 05:52
[2024-06-30 15:00] VITALS: BP 125/61
[2024-06-30 17:07] LABS: Glucose - Point of Care 126 mg/dl (70-99)
[2024-06-30] MEDS: CRESTOR 30 MG PO (18:20)
[2024-06-30] MEDS: LOVENOX 40 MG SC (18:20)
[2024-06-30 21:33] LABS: Glucose - Point of Care 189 mg/dl (70-99)
[2024-06-30 23:51] VITALS: BP 133/65
[2024-06-30 23:59] VITALS: BP 133/65
[2024-07-01] MEDS: ULTRAM 50 MG PO ×3 (02:20→19:23)
[2024-07-01 05:10] LABS: % Basophils 0.8 % (0-2); % Eosinophils 4.3 % (0-6); % Immature Granulocytes 0.6 % (0-0.5); % Lymphocytes 22.7 % (20.5-51.1); % Monocytes 8.9 % (1.7-9.3); % Neutrophils 62.7 % (42.2-75.2); Absolute Basophils 0.1 10^3/uL (0-0.2); Absolute Eosinophils 0.3 10^3/uL (0-0.7); Absolute Immature Granulocytes 0.1 10^3/uL (0-0.05); Absolute Lymphocytes 1.8 10^3/uL (1.2-3.4); Absolute Monocytes 0.7 10^3/uL (0.1-0.6); Absolute Neutrophils 4.9 10^3/uL (1.4-6.5); Hematocrit 24.5 % (37.0-47.0); Hemoglobin 7.7 g/dL (12.0-16.0); Mean Corp Hgb Conc. 31.4 g/dL (33.0-37.0); Mean Corpuscular Volume 82.8 fL (81.0-99.0); Mean Platelet Volume 10.5 fL (7.4-10.4); Nucleated Red Blood Cells % 0 %; Platelet Count 356 10^3/uL (130-400); Red Blood Cell Count 2.96 10^6/uL (4.20-5.40); Red Cell Dist. Width 16.5 % (11.5-14.5); White Blood Cell Count 7.9 10^3/uL (4.8-10.8)
[2024-07-01 05:40] LABS: Blood Urea Nitrogen 9 mg/dl (7-17); Calcium 8.3 mg/dl (8.4-10.2); Carbon Dioxide 31 mmol/L (22-30); Chloride 101 mmol/L (98-107); Estimated Creatinine Clearance 115 ml/min; Glucose 101 mg/dl (70-99); Potassium 3.8 mmol/L (3.5-5.1); Sodium 141 mmol/L (135-145); eGFR > 60.00
--- NOTE | 2024-07-01 07:23 | W.PN.HOSP.TC ---
Addendum entered and electronically signed by Eugenie Hyman MD 07/01/24 15:19:
I personally performed a history and physical exam of the patient and discussed management with the resident. I reviewed the resident's note and agree with the documented findings and plan of care HPI/CC except for changes in documentation
58-year-old female with diverticulitis with perf. she was treated conservatively for 24 to [address] showed worsening with intraperitoneal air was taken to the OR.
CVS: S1-S2 normal
Chest: CTA B/L
Abdomen: Soft, NT, Ostomy,
Extremities: No edema
Obese
Sacral decub
# Acute sigmoid diverticulitis with perforation leading to septic shock from bacteroids bacteremia
Exploratory laparotomy with Barbour's resection by Dr. Farnsworth on 05/22/2024 with colostomy
Intra-op splenic capsular tear with subsequent hematoma development/left upper quadrant infected hematoma status post drain placement 06/14/2024 fluid with ESBL E. coli
Anterior abdominal collection/abscess s/p drainage 06/10/2024 culture with Klebsiella pneumonia and ESBL E. coli
Currently on Invanz
# Recurrent pleural effusion with thoracentesis 06/15/2024 750 mL, 9 2424-650 mL
Chest tube placed 06/24/2024 had thrombolytics through the tube 06/25/2024. Tube was taken out 06/28/2024
Continue incentive spirometry
# Postoperative VDRF-extubated 05/23/2024
# Acute postoperative blood loss anemia. Mild iron deficiency. P.o. iron repeat hemoglobin stable
# Acute kidney injury - Resolved
# Hypokalemia-resolved
# Anion gap metabolic acidosis from Lactic acidosis resolved.
# Acute transaminitis- Better
# Multidrug-resistant hypertension-continue losartan 50 Mg twice daily, metoprolol 100 mg twice daily, nifedipine 60 Mg twice daily, Aldactone 25 Mg daily
# Hyperlipidemia-continue statin
# Diabetes-hemoglobin A1c 7.4. Was on Mounjaro, Jardiance, NovoLog 19 units AC before meals [employer]. Currently on Lantus 8 units daily, NovoLog 4 units AC
# Thrombocytopenia secondary to sepsis
# Coarctation of aorta with history of prior aortic stenting-Restart aspirin
# Obesity
# Sacral Decub stage 2-discussed with the patient regarding offloading and also about diet.
# History of breast cancer status post mastectomy and chemo
# History of endometrial cancer status post hysterectomy
# DVT prophylaxis-Lovenox
# Full code
Discussed with nursing at bedside
Discussed with patient's son in detail at bedside. All questions were answered.
Part of this note was created using voice recognition system. Occasional wrong word or��sound alike� substitutions may have inadvertently occurred due to the inherent limitations of voice recognition software. If noted kindly bring it to my
attention for correction.
Original Note:
Today's Communication/Plan
-
Likely plan for dispo today for SNF depending on bed availability
Continue antibiotic therapy upon discharge
Assessment / Plan
Assessment / Plan
Assessment
58-year-old female with past medical history significant for hypertension, diabetes mellitus, history of breast cancer, history of endometrial cancer s/p hysterectomy, diverticulitis, coarctation of aorta presented to the ER with abdominal
discomfort and was diagnosed with sigmoid diverticulitis with perforation. She is status post Barbour's procedure.
Impression
Acute sigmoid diverticulitis with perforation s/p exploratory laparotomy and Barbour's procedure
Multifactorial shock
Bacteroides bacteremia
Pleural effusion
Acute blood loss anemia
Hypertension
Sinus tachycardia
TIFFANI
Acute transaminitis
Insulin-dependent diabetes mellitus
Coarctation of aorta
Iatrogenic volume overload
Hypercholesterolemia
Plan
#Persistent episodic fever
-Afebrile today
-follow temp curve
Infected LUQ hematoma - ESBL ecoli and Klebsiella PNA
-Continue Ertapenem (day 31)- will continue course in rehab upon discharge
-possible sources in LUQ collection (drain placement 06/14/24 shows fluid culture revealing ESBL E. coli x 2)
-fistulogram per IR without signs of fistula
-ID following and help appreciated.
#Acute sigmoid diverticulitis with perforation, s/p shock
Status post exploratory laparotomy/Barbour's procedure
Bacteroids sp. bacteremia
-appreciate colorectal surgery
-exp lap with ostomy and JODIE drain (still in place) on 05/24/24
#Exudative pleural effusion
-s/p thoracentesis 06/14 with 750 mls drained
-CXR with recurrent effusion
-appreciate IR for repeat thoracentesis, 650 ml clear fluid on 06/18/24
-started back on IV lasix 40mg/d, monitor weight/cr
-Pleural fluid 06/24: Exudative, low WBC count, not likely infected
-Thrombolysis on 06/25 as per IR, CT tube removed on 06/28
- CXR 06/28: Unchanged from previous CXRs. Small left pleural effusion. No pneumothorax.
-Continue PT/OT
-Dispo likely to SNF today, pending availability
#Acute blood loss anemia
-s/p 3 units PRBC this admission
-Hb 7.7 today, repeat H&H in afternoon (if stable then okay for discharge)
-transfuse if HGB < 7
#Essential HTN
- BP better controlled on current regime
- Continue nifedipine to 60mg BID
-Continue spironolactone
- Continue hydralazine prn
#TIFFANI
-resolved
#Hyponatremia
-likely volume overload--resolved
#Acute transaminitis
-likely due to all above--resolved
#Type 2 DM
-insulin requiring
-Hemoglobin A1c of 7.4
-appreciate DM ECONOMICS PROFESSOR assistance
#H/o Coarctation of the Aorta
-s/p prior aortic stenting
-Continue
#HLD
-cont statin
#Sacral Pressure Wound Stage 3
-most likely due to pressure/position (pt does not really seem motivated to move)
-appreciate wound care
DVT Prophylaxis: Heparin subq
Code Status-- Full Code

CT c/a/p on 06/23
1).There is moderate left-sided pleural effusion with underlying compressive atelectasis despite the presence of a left-sided chest tube which is at the left lung base laterally
2).There is inflammatory stranding in the central and left mesentery as well as in the pelvis and along the anterior pararenal fascia on the left similar to that seen on the 06/04/2024 study with a pigtail type drainage catheter in an 8 cm midline
anterior abdominal/pelvic abscess which is decreased in size when compared with the prior study.
3). There is left lower abdomen ostomy
4). Diverticula are present in the colon with no CT evidence of diverticulitis
Anticipated Discharge: Within 24 hours
Subjective/Interval History
-
Date of Service: July 01, 2024
Patient overall feels well today. Very mild left sided pain due to drain.
Objective Data
-
Labs:
Laboratory Results
07/01/24
04:58
WBC 7.9
Hgb 7.7 L
Hct 24.5 L
Plt Count 356
Sodium 141
Potassium 3.8
Chloride 101
Carbon Dioxide 31 H
BUN 9
Creatinine 0.6
Glucose 101 H
Calcium 8.3 L
Vital Signs:
Vital Signs
Temp Pulse Resp BP Pulse Ox
98.6 F 73 18 133/65 95
06/30/24 23:59 06/30/24 23:59 06/30/24 23:59 06/30/24 23:59 07/01/24 03:40
I&O
06/30/24 07/01/24 07/02/24
06:59 06:59 06:59
Intake Total 1969 / 1969 970 / 970
Output Total 755 / 755 110 / 110
Balance 1215 / 1215 860 / 860
Review of Systems
-
All other systems: Reviewed and negative
Physical Exam
-
General: No Apparent Distress
HEENT: Normocephalic
Respiratory: Clear to Auscultation
Cardiac: Regular Rhythm and S1/S2
GI: Soft and Other (JODIE drain)
Musculoskeletal: No Edema
Skin: Warm and Dry
Neuro: Awake, Alert and Oriented
Psych: Calm
--- NOTE | 2024-07-01 07:32 | PN.DE.MGMTRT ---
Insulin Management
- -
07/01/2024: Diabetes Management F/U:
Patient admitted 05/19 with acute sigmoid diverticulitis with perforation. PMH endometrial CA, breast CA, HTN, HCL, steroid induced diabetes. Prior to admission was taking 19 units NovoLog AC with Mounjaro 2.[address] Cordova
and Omer Ndiaye PA-c at [facility]. Recently was started on Mounjaro and Jardiance and had frequent low blood sugars. She states she could not get an appointment with Omer so she called her primary doctor who told her to stop Lantus and
Jardiance due to hypoglycemia. A1C is 7.4, Cr 1.5, eGFR 39.65. Extubated 05/23, transitioned off of glycemic protocol 05/25.
Patient is awake and A/O x3, resting in bed. Able to discuss diabetes management. Son at bedside.
POD# 40, s/p exp lap/Barbour's procedure with diverting colostomy (05/22/2024)
06/10 drain insertion, 06/14, 2nd drain placement. 06/15 thoracentesis-750cc removed, second thoracentesis - 650 removed 06/18, 06/24 L chest tube placed.
Glucose remains stable and in range, premeal 118 to 172, fasting 101 (V), 106 POC this AM.
Will make no changes to current regimen: Continue NovoLog 4 units AC with moderate corrective, Farxiga 10 mg daily (at home taking Jardiance 10 mg daily) and Lantus 8 units in AM.
Mounjaro 5 mg weekly was not given on Tuesday 06/26. Patient states that PCP is working on prior authorization.
Pt states that Jardiance will not be provided to her while in rehab due to cost. She has requested script for Jardiance to be sent to pharmacy so her son can pick it up and have it ready to take to rehab.
Discussed with patient and nurse.
Diabetes History
- -
Type of Diabetes: 2 requiring insulin
Pre-Admission Diabetes Regimen
07/01/24
04:58
Creatinine 0.6
Lab Results
Hemoglobin A1c 7.4 % (4.0-5.6) H 05/20/24 05:23
Insulin Pump Settings
IP Diabetes Regimen
06/30/24 06/30/24 06/30/24
13:11 17:02
Glucose
POC Glucose 118 H 172 H 126 H
06/30/24 07/01/24
21:31 04:58
Glucose 101 H
POC Glucose 189 H
Meal type: Dinner
Amount consumed: 65%
Patient Education
[2024-07-01 07:40] VITALS: BP 149/75
[2024-07-01 07:50] LABS: Glucose - Point of Care 106 mg/dl (70-99)
[2024-07-01] MEDS: NOVOLOG FLEXPEN-MODERATE RESISTANCE SC ×3 (09:08→17:35)
[2024-07-01] MEDS: COZAAR 50 MG PO (09:33)
[2024-07-01] MEDS: THERAGRAN 1 TABLET PO (09:33)
[2024-07-01] MEDS: ALDACTONE 25 MG PO (09:33)
[2024-07-01] MEDS: VITAMIN D3 (cholecalciferol) 50 MCG PO (09:34)
[2024-07-01] MEDS: NEURONTIN 100 MG PO ×2 (09:34→15:13)
[2024-07-01] MEDS: COLACE 100 MG PO (09:34)
[2024-07-01] MEDS: PROCARDIA XL (EXTENDED RELEASE) 60 MG PO (09:34)
[2024-07-01] MEDS: LOPRESSOR 100 MG PO (09:34)
[2024-07-01] MEDS: PROTONIX 40 MG PO (09:34)
[2024-07-01] MEDS: LANTUS 0.08 UNITS SC (09:35)
[2024-07-01] MEDS: LIDOCAINE 4% PATCH 1 PATCH TOPICAL (09:36)
[2024-07-01] MEDS: SANTYL OINTMENT 1 APPLIC TOPICAL (09:36)
[2024-07-01] MEDS: DESENEX/MITRAZOL/ZEASORB 1 APPLIC TOPICAL (09:37)
[2024-07-01] MEDS: NOVOLOG FLEXPEN 4 UNITS SC ×2 (09:37→17:33)
--- NOTE | 2024-07-01 09:46 | W.PN.PUL.V3 ---
Today's Communication / Plan
-
Wean oxygen
Increase activity
Stable for rehab from a pulmonary perspective
Monitor for pleural fluid reaccumulation
Antibiotics per infectious disease
Outpatient pulmonary/sleep disorders follow-up
Assessment
-
58-year-old woman with past medical history significant for diverticular disease, hypertension, type 2 diabetes who presented to the emergency room complaining of abdominal pain. CT abdomen pelvis performed demonstrated diverticulitis with concern
for perforation. She was followed for for 48 hours on antibiotics, repeat CT showed worsening intraperitoneal air s/p operating room for exploratory laparotomy. She underwent exploratory laparotomy, Barbour's resection on 05/22/2024.
Subsequently in the ICU, intubated, sedated from mechanical ventilation. Transferred to floor 05/25/24. We are asked for re-eval for recurrent pleural effusions 06/19/24.
Impression:
Recurrent pleural effusion s/p thora x 2 -effusion started to build up following her perforated viscus and is likely due to translocation of fluid across diaphragm
s/p chest tube insertion 06/24/24, s/p tpa/dornase 06/25/24; discontinued 06/28/24
Acute abdomen: Acute diverticulitis with bowel perforation
CT abdomen pelvis reviewed: Perforated diverticula with intraperitoneal air.
Status post exploratory laparotomy 05/22/2024: Barbour's procedure with sigmoidectomy + colostomy.
Postoperative mechanical ventilation
Extubated 05/23/2024
Septic shock � shock state has resolved
transferred to floors 05/25 from ICU.
Acute kidney injury metabolic acidosis � both have resolved
Anion gap metabolic acidosis � resolved
Hyperglycemia - resolved
Postoperative anemia due to blood loss/acute
Conditions present prior admission:
Type 2 diabetes
Hypertension
Obesity
History of coarctation of the aorta
Breast cancer status postmastectomy and chemotherapy
Uterine cancer status post hysterectomy
Diverticular disease
Status post breast reconstruction
History of
Aortic stent placement
Cataracts
COVID infection 08/28/20
Obstructive sleep apnea suspected
Fatty liver
Plan
Her respiratory status has improved
Currently on room air-supplemental oxygen as needed
Incentive spirometry
Aspiration precautions
Nebulizers if needed
Recurrent left pleural effusion s/p thora x 2
06/18/24 650mL
06/15/24 750mL
Fluid studies reviewed: Pleural fluid 06/15/24: pH 7.41 - TP 3.8 - LDH 386 - Culture neg - Cyto negative for malignancy with acute inflammatory cells present
Serum TP 5.6, LDH 300
Results are mostly indicating exudative fluid, likely parapneumonic vs translocation from intra-abdominal process tho culture negative since being on abx; favor the latter as she clinically has no signs of pneumonia
Repeat CXR showing worsening L sided pleural effusion but would hold off on tapping, as prior taps were minimal
The fluid appears worsened overlying compressive atelectasis on CT imaging
CT chest - 06/23/2024 shows a moderate left-sided pleural effusion with no effusion seen on the right lung.
Status post small bore ultrasound-guided left-sided chest tube placement, interventional radiology correspondence reviewed. Appears loculated
Chest tube discontinued 06/28/24
Continue to repeat chest x-rays as needed for reaccumulation-explained to patient if she has significant increasing shortness of breath we can follow this in the outpatient setting with chest x-ray and possible repeat thoracentesis
Status post exploratory laparotomy for acute diverticulitis with perforation
Ostomy care
Follow drain output from midline JODIE drain + left subdiaphragmatic JODIE drain
Colorectal surgery following
Infectious disease following
Antibiotics per infectious disease
DVT prophylaxis-on Lovenox
GI prophylaxis-on pantoprazole
Physical therapy and potentially rehab
Last saw Dr. Duran 03/11/2021 and subsequently saw Nataliya Arriola NP 11/17/2022-recommend outpatient pulmonary/sleep disorders follow-up
Diagnostic Data
CXR 06/18/24- 1. Improved left pleural effusion following thoracentesis.
2. No pneumothorax.
CXR 06/21/2024:
1. Left upper extremity PICC in position.
2. At least moderate left effusion and adjacent atelectasis, increased as compared with prior.
CT AP 06/17/24- LOWER CHEST: Large left pleural effusion with adjacent atelectasis, only partially visualized. Partially visualized bilateral breast implants. Trace pericardial fluid is noted.. Right lung bases clear.
Lower abdominal drainage catheter is in satisfactory positioning within the anterior peritoneal cavity. There is no overt fluid collection within the anterior peritoneal cavity, but rather strandy fluid with gas foci. This is relatively unchanged
compared to the recent CT. Contrast administered through this catheter prior to CT acquisition surrounds the pigtail catheter, but does not extend into the bowel lumen. Findings are consistent with no bowel fistula.
Left upper quadrant drainage catheter is in satisfactory position within a left upper quadrant fluid collection. Interval diminution in size of the left upper quadrant fluid collection now measuring 8.8 x 8.8 cm compared to 10.4 x 9.5 cm previously.
ECHO 12/20/21- Normal left ventricular size and systolic function. No regional wall motion abnormalities are seen. LV ejection fraction is 60-65%. Mild concentric left ventricular hypertrophy. Mild mitral regurgitation. Aortic coarctation stent
history with peak/mean gradients 22/10mmHg. No prior study available for comparison.
Subjective Data
-
Date of Service:
Date of Service: July 01, 2024
Chief Complaint: Pulmonary Follow Up and Dyspnea Follow Up
Subjective:
Feels better, less short of breath, no chest pain, productive cough,
Review of Systems
General: Other (Per HPI)
Objective Data
Data Reviewed
Vital Signs / I&O:
Vital Signs
Temp Pulse Resp BP Pulse Ox
98.9 F 90 16 149/75 91
07/01/24 07:40 07/01/24 07:40 07/01/24 07:40 07/01/24 09:33 07/01/24 07:40
Intake and Output
06/30/24 07/01/24 07/02/24
06:59 06:59 06:59
Intake Total 1969 / 1969 970 / 970
Output Total 755 / 755 110 / 110
Balance 1215 / 1215 860 / 860
SaO2: 91
Nasal Cannula flow liters per minute: 3
Physical Exam
General: Respiratory Distress (negative), Comfortable, Chills (negative) and Other (NAD)
HEENT: Normocephalic, Anicteric and Moist Mucous Membranes
Cardiovascular: Regular Rhythm and Peripheral Edema (Trace lower extremity edema bilaterally)
Respiratory: Clear and Non-Labored Respirations
GI: Soft, Distended (Abdominal obesity), Non Tender, Normal Bowel Sounds and Other (LLQ colostomy in place; midline JODIE drain in place with purulent fluid seen in bulb)
Neurology: Awake, Alert, No Motor Deficits and Tremors (negative)
Skin: Warm, Good Color, Cyanosis (negative), Jaundice (negative), Rash (n) and Other (Left sub-diaphragmatic JODIE drain in place with serosanguineous fluid seen in bulb)
Labs/Micro/Reports
Lab Data
07/01/24 04:58
07/01/24 04:58
--- NOTE | 2024-07-01 10:13 | CM ---
Addendum entered by Seferino Hamm 07/01/24 16:04:
[facility] offered a bed. Both pt and her son are aware, expressed their agreement.
An auth for SNF level of care obtained from [employer], spoke to admitting representative Amber. pt approved for 5 initial days for SNF level of care at [facility] from 07/01/24 till monday07/05/24, auth#: [id number]. For review:
[phone].
CM forwarded Auth info to [facility] respiratory director Homer [phone] and she confirmed that pt will have a private room.
UC to arrange transportation, BLS with Acute care ambulance. Ambulance auth is: [id number]. [facility] with [facility]
Both pt, her son, [facility] respiratory director, UC and RN are aware of discharge.
[facility] nursing repprt: [phone]
Discharge instructions fax: [phone]
D/C plan: [facility]
Original Note:
CM following re: discharge planning.
Reviewed pt's chart, met with pt and pt's son Anshul at bedside.
Both pt and her son have many questions regarding discharge planning. Both pt and her son requested [facility] or [facility]. A referral to [facility] and [facility] noted and was done on 06/10/24. Both pt and her son are aware
that [facility], [facility] offered a bed based on the referral that was sent on 06/10/24. [facility] and [facility] requested additional information.
Both pt and her son made it very clear that they want only [facility] or [facility] and pt must to have a private room.
Updated referral sent to [facility] and [facility]. Awaiting for determination.
CM left a message to both [facility] admissions department and [facility] admissions department admitting representative Viv.
Pt will need an auth from [employer] insurance. Both pt and her son stated that pt does not have [employer] insurance anymore.
D/C plan: Preferred SNF: [facility] or [facility]. Awaiting for determination. Per MD pt is medically stable to be discharged today.
CM will follow to assist pt with discharge to a preferred and accepted SNF.
[2024-07-01 11:16] VITALS: BP 116/77; BP 173/79; PULSE 76; O2SAT 94
[2024-07-01 11:19] VITALS: BP 115/76; BP 173/76; PULSE 76; O2SAT 92
[2024-07-01] MEDS: INVANZ 60 MG IV (11:32)
[2024-07-01 12:24] LABS: Glucose - Point of Care 142 mg/dl (70-99)
--- NOTE | 2024-07-01 13:00 | WOUNDNOTE ---
KETURAH RN NOTE: Confirmed with nurse Murray that Colostomy appliance was changed today and aware that nursing can do pouch changes until discharge. Available to patient for any further questions or needs.
[2024-07-01] MEDS: NOVOLOG FLEXPEN SC (13:37)
--- NOTE | 2024-07-01 13:37 | W.PN.ID1 ---
Date of Service
Date of Service: July 01, 2024
Today's Communication
Continue ertapenam. Would continue for an additional 3 weeks (depending on follow-up imaging)
Assessment / Plan
# Fevers
- Improved
# Leukocytosis
- improved / stable
# Diverticulitis with diverticular perforation
- s/p diverting colostomy (05/22/2024).
- Intra-op splenic capsular tear with subsequent hematoma development
# LUQ infected hematoma
-s/p drain placement (06/14/24) - bloody
- Fluid cx: ESBL E. coli x2
- zosyn (05/19 to 05/31); Ertapenam (05/31 to present)
# Anterior abdominal collection/abscess
- s/p drainage (06/10/24)
- Cultures with Klebsiella pneumoniae and ESBL E. coli
# Left pleural effusion
- s/p thoracentesis 750cc cloudy yellow fluid (06/15/24)
- CT placed 06/24. s/p TPA 06/25/24
Hx Bacteroides bacteremia; cleared
HTN
DM
Hx breast CA
Hx endometrial CA
Diverticulitis
Recommendations:
Blood cultures NG.
Continue with ertapenem (d#31)
Follow CT drain output. Will need serial abd CT scanning to follow intra-abdominal fluid collections. (last imaging on 05/2924)
Continue to follow white count and temperature curve.
Monitor pleural fluid output
����������������������������������������������������������
Chief Complaint
-: Other (Abdominal infection. Left pleural effusion)
Subjective / Review of Systems
Review of Systems: No Fever and No Chills
Vital Signs / Physical Exam
Vital Signs
Vital Signs
Temp Pulse Resp BP Pulse Ox
98.9 F 90 16 149/75 91
07/01/24 07:40 07/01/24 07:40 07/01/24 07:40 07/01/24 09:33 07/01/24 09:46
Physical Exam
Constitutional: No Acute Distress, Comfortable and Non-toxic
Eyes: Sclera Anicteric
Pulmonary: Non Labored and Other (Left chest tube in place. Straw-colored pleural fluid drainage)
Gastrointestinal: Soft, Non Tender, Non Distended, Normal Bowel Sounds and Other (Midline incision dry, (+) eschars w/o surrounding erythema; LUQ JODIE drain bloody output, RLQ JODIE drain- serosanguinous fluid)
Extremities: Edema; Negative Erythema
Skin: Warm and Dry; Negative Rash
Neurological: Awake, Alert and AO x 3
Psychological: Calm
Lines: PICC (LUE intact)
Objective Data
Lab Data
Lab Results
07/01/24 04:58
PT 16.1 Sec (11.4-14.6) H 05/22/24 19:57
INR 1.28 05/22/24 19:57
APTT 28.3 Sec (23.4-35.0) 05/22/24 19:57
Estimated Creat Clear 115 ml/min 07/01/24 04:58
Lactic Acid 1.2 mmol/L (0.7-2.0) 05/20/24 22:09
Total Bilirubin 0.5 mg/dl (0.2-1.3) 06/15/24 07:40
AST 35 U/L (14-36) 06/15/24 07:40
ALT 21 U/L (0-35) 06/15/24 07:40
Alkaline Phosphatase 74 U/L (38-126) 06/15/24 07:40
Most recent labs reviewed.
Micro Results:
06/24/24 16:45 Fungal Culture - Preliminary
Pleural Fluid Culture in progress.
Positive cultures are reported as soon as detected.
Final report to follow in four to five weeks.
06/24/24 16:45 Body Fluid Culture - Final
Pleural Fluid No Growth After 72 Hours
Gram Stain - Final
06/24/24 16:45 Acid Fast Bacilli Smear - Preliminary
Pleural Fluid Acid Fast Bacilli Culture - Preliminary
06/16/24 13:28 Blood Culture - Final
Blood/Venous No Growth - Final Report
06/15/24 13:43 Body Fluid Culture - Final
Pleural Fluid No Growth After 72 Hours
Gram Stain - Final
06/14/24 18:10 Body Fluid Culture - Final
Fluid Escherichia coli - ESBL
Escherichia coli - ESBL#2
Gram Stain - Final
06/09/24 10:30 Blood Culture - Final
Blood/Venous No Growth - Final Report
06/09/24 10:29 Blood Culture - Final
Blood/Venous No Growth - Final Report
06/10/24 12:54 Wound Culture - Final
Abdomen Escherichia coli - ESBL
Klebsiella pneumoniae
Gram Stain - Final
06/02/24 12:02 Blood Culture - Final
Blood/Venous No Growth - Final Report
06/02/24 09:36 Blood Culture - Final
Blood/Venous No Growth - Final Report
05/22/24 08:00 Wound Culture - Final
Abdomen Escherichia coli - ESBL
Gram Stain - Final
05/22/24 08:00 Anaerobic Culture - Final
Abdomen
05/19/24 20:48 Blood Culture - Final
Blood/Venous Bacteroides distasonis
Gram Stain - Final
05/21/24 17:56 Blood Culture - Final
Blood/Venous No Growth - Final Report
Imaging:
06/17/2024 CT abdomen/pelvis: Lower abdominal drainage catheter is in satisfactory positioning within the anterior peritoneal cavity. There is no overt fluid collection within the anterior peritoneal cavity, but rather strandy fluid with gas foci.
This is relatively unchanged compared to the recent CT. Contrast administered through this catheter prior to CT acquisition surrounds the pigtail catheter, but does not extend into the bowel lumen. Findings are consistent with no bowel fistula.
Left upper quadrant drainage catheter is in satisfactory position within a left upper quadrant fluid collection. Interval diminution in size of the left upper quadrant fluid collection now measuring 8.8 x 8.8 cm compared to 10.4 x 9.5 cm previously.
06/04/2024 CT abdomen/pelvis with contrast: Heterogeneous collection in the left upper quadrant, superior to the spleen and upper stomach. The patient has a history of splenic laceration during splenic flexure takedown, and this most likely
represents a hematoma. Measurements without significant change from examination of May 27, 2024. Although this was not a CT angiography examination, there is no CT evidence to suggest significant active bleeding. There is fluid in the left
paracolic gutter and extending slightly medially in the left lower abdomen adjacent to small bowel loops. This fluid has slightly increased since examination May 27, 2024. There is a drainage catheter with its tip is in the inferior aspect of
this fluid collection. There is an unusual ovoid fat, fluid, and air density in the midline abdomen posterior to the abdominal wall. This is felt to likely represent necrotic omentum, and superimposed infection cannot be excluded. There is no
evidence of a drainable collection at this time. Moderate subcutaneous edema. This is slightly improved from examination of May 27, 2024.
05/27/2024 CT abdomen/pelvis with contrast: There is 7 x 8 x 3 cm intermediate density heterogeneous left subdiaphragmatic fluid collection containing a small amount of extraluminal gas. Differential diagnosis for this collection includes hematoma
and abscess. Sigmoidectomy with left lower quadrant colostomy. Moderate ascites including areas of loculated fluid in the abdomen and pelvis. Small left pleural effusion with compressive atelectasis at the posterior left lung base. Please see
full dictation for additional detail.
[2024-07-01 14:02] LABS: Hematocrit 26.5 % (37.0-47.0); Hemoglobin 8.3 g/dL (12.0-16.0)
[2024-07-01] MEDS: LOW STRENGTH ASPIRIN 81 MG PO (15:13)
[2024-07-01] MEDS: FEOSOL 325 MG PO (15:21)
[2024-07-01 15:30] VITALS: BP 112/68
--- NOTE | 2024-07-01 16:33 | W.DCSUMMARY ---
Discharge Summary
Discharge Data
Date of Admission: 05/20/24
Date of Discharge: 07/01/24
-
Pending Results: No
Hospital Course
Discharging Physician : Dr. Cosmo Church,
Disposition : SNF
Primary care physician :
Principal Discharge diagnosis : Acute sigmoid diverticulitis with perforation, s/p shock, Recurrent Exudative pleural effusion
Chronic Discharge diagnosis : TIFFANI, Hyponatremia , Type 2 DM, HLD, H/o Coarctation of the Aorta, Sacral Pressure Wound Stage 3,
Hospital Course :
1. Acute sigmoid diverticulitis with perforation, s/p shock:
Patient underwent an exploratory laparotomy and Barbour's procedure for acute sigmoid diverticulitis with perforation. JODIE drain placed. Patient continued to have persistent episodic spikes in temperature. She had a left upper quadrant infected
hematoma for which a drain was placed. Fluid cultures showed ESBL E. coli and initially Zosyn was started thereafter switched to ertapenem. She also had an anterior abdominal wall collection/abscess for which a drain was placed, collection was
cultured with Klebsiella pneumonia and ESBL E. coli. Patient also had fluctuating blood pressure and was started on nifedipine and hydralazine as needed along with her home medication of metoprolol, losartan. At the time of discharge WBC count is
within normal limits.
Patient is being discharged to rehab with drains and will follow with GI as outpatient for drain studies. She will also continue IV Ertapenem for 3 more weeks after discharge. She will get CT chest/abd/pelvis without IV contrast in 2 weeks as well.
2. Recurrent Exudative pleural effusion: A CT abdomen on 06/13 showed a moderate size pleural effusion which was not decreasing. Patient underwent two thoracentesis's which yieled exudative fluid. It was most likely translocation from intra-abdominal
process vs parapneumonic. She clinically had no signs of pneumonia. Repeated CXRs continued to show increasing pleural effusion along with CT chest on 06/23 showing moderate left sided pleural effusion but no effusion on right side. IR consulted for
chest tube placement. After chest tube placement on 06/24 there was a total collection of around 1300 ml and chest tube was subsequently removed on 06/28. Thrombolysis with tPA and left pleural cavity on 06/25. Patient continued to receive repeated
CXRs after chest tube removal which showed very small left pleural effusion and no pneumothorax. Patient improved clinically.
3. Acute blood loss anemia: She received 3 units PRBC throughout his admission. Hb was stable at time of discharge.
4. Other Chronic Problems: Stable throughout hospital stay.
Important imaging findings :
CXR 06/18/24- 1. Improved left pleural effusion following thoracentesis.
2. No pneumothorax.
CXR 06/21/2024:
1. Left upper extremity PICC in position.
2. At least moderate left effusion and adjacent atelectasis, increased as compared with prior.
CT AP 06/17/24- LOWER CHEST: Large left pleural effusion with adjacent atelectasis, only partially visualized. Partially visualized bilateral breast implants. Trace pericardial fluid is noted.. Right lung bases clear.
Lower abdominal drainage catheter is in satisfactory positioning within the anterior peritoneal cavity. There is no overt fluid collection within the anterior peritoneal cavity, but rather strandy fluid with gas foci. This is relatively unchanged
compared to the recent CT. Contrast administered through this catheter prior to CT acquisition surrounds the pigtail catheter, but does not extend into the bowel lumen. Findings are consistent with no bowel fistula.
Left upper quadrant drainage catheter is in satisfactory position within a left upper quadrant fluid collection. Interval diminution in size of the left upper quadrant fluid collection now measuring 8.8 x 8.8 cm compared to 10.4 x 9.5 cm previously.
ECHO 12/20/21- Normal left ventricular size and systolic function. No regional wall motion abnormalities are seen. LV ejection fraction is 60-65%. Mild concentric left ventricular hypertrophy. Mild mitral regurgitation. Aortic coarctation stent
history with peak/mean gradients 22/10mmHg. No prior study available for comparison.
CT c/a/p on 06/23
1).There is moderate left-sided pleural effusion with underlying compressive atelectasis despite the presence of a left-sided chest tube which is at the left lung base laterally
2).There is inflammatory stranding in the central and left mesentery as well as in the pelvis and along the anterior pararenal fascia on the left similar to that seen on the 06/04/2024 study with a pigtail type drainage catheter in an 8 cm midline
anterior abdominal/pelvic abscess which is decreased in size when compared with the prior study.
3). There is left lower abdomen ostomy
4). Diverticula are present in the colon with no CT evidence of diverticulitis
Procedure findings :
Image guided placement of a LEFT chest tube on 06/24 with moderate-sized, loculated left pleural effusion.
Discharge Plan
-
Patient Disposition: Long-Term/SNF
Discharge Diagnosis/Procedures: Acute Diverticulitis with perforation/Caridad's Procedure/Pleural Effusions
Recurrent pleural effusion with thoracentesis 06/15/2024 and 06/18/2024
Anemia
Acute kidney injury
Hypokalemia
Hypertension
Hyperlipidemia
Diabetes
Coarctation of aorta with history of stent
Sacral decubitus ulcer
Diet: Diabetic, Carb Controlled
Additional Activity: No lifting over 10 pounds (gallon of milk)
Driving Restrictions: No driving
Blood Work: CBC/BMP weekly while on antibiotics
Others Tests: CT Chest/abdomen/pelvis without Iv Contrast in 2 weeks
Other Services: PT and OT
Wound Care: Cover JODIE drain wound site with gauze and tape. Okay to leave open to air once it is sealed. Okay to shower. You may remove all dressings to shower and then replace dressings when you are done.
Activity Restrictions/Additional Instructions:
Sacral wound care-Clean with soap and water. Apply sure-prep around wound. Apply Gina thick layer of Santyl and cover with adaptic and silicone border foam. Change daily and PRN for drainage or if soiled. (i.e. Bariatric air chair cushion).
Air mattress.
Elevate heels off bed with pillow/s.
Limit time in chair to 1.5 hours BID with air cushion
Ostomy supplies: [place] soft convex wafer # [id number], Mario seal or stoma paste, Vineet pouch # [id number]. Change 2 times a week and as needed for leakage.
Call supply company (list in folder provided) for monthly Ostomy supplies after discharge (ask VN to order supplies while on service).
Follow up with surgeon.
Call [facility] RN nurse for ostomy pouching concerns or leakage problems [phone] or [phone] or [phone].

Tylenol. Maximum dose of Tylenol is 4000 mg in 24 hours.

Continue IV Invanz (Ertapenem) for 3 weeks from discharge date. Stop date: 07/22.
After completion of IV antibiotic, please remove PICC line.
Referrals:
Jesus Farnsworth MD [Active] - in two weeks
Jesus Hughes DO [Family Provider] -
Prescriptions:
New
losartan 50 mg Tablet
50 mg PO BID Qty: 0 0RF
spironolactone 25 mg Tablet
25 mg PO DAILY Qty: 0 0RF
ferrous sulfate [FeroSul] 325 mg (65 mg iron) Tablet
325 mg PO DAILY Qty: 0 0RF
Ertapenem [Invanz] 1000 MG
0.9% Sodium Chloride [Nss] 50 ML
120 mls/hr IV Q24H
Reason for use: Infection
Ordered By: Elena Vaughn MD, Resident
Last Taken: 07/01/24 11:32 60 mls
acetaminophen 325 mg Tablet
650 mg PO Q6HPRN PRN (Reason: mild pain) Qty: 0 0RF
metoprolol tartrate 100 mg Tablet
100 mg PO BID Qty: 0 0RF
tramadol 50 mg Tablet
50 mg PO Q6HPRN PRN (Reason: moderate pain) Qty: 10 0RF
gabapentin 100 mg Capsule
100 mg PO TID Qty: 0 0RF
nifedipine 60 mg Tablet Extended Release
60 mg PO BID Qty: 0 0RF
simethicone 80 mg Tablet,Chewable
80 mg PO QIDPRN PRN (Reason: gas pain) Qty: 0 0RF
insulin aspart U-100 100 unit/mL (3 mL) Insulin Pen
4 unit SC AC Qty: 0 0RF
lidocaine 4 % Adhesive Patch,Medicated
1 patch topical DAILY Qty: 0 0RF
Insulin Glargine Lantus [Lantus] 8 UNITS
Subcutaneous Insulin Syringe [Syringe-Insulin] 0 UNIT
As Directed mls/hr SC DAILY
Reason for use: Diabetes
Ordered By: Elena Vaughn MD, Resident
Last Taken: 07/01/24 09:35 0.08 mls
Continued
cholecalciferol (vitamin D3) 2,000 UNITS tablet
2,000 units PO DAILY@1000
multivitamin with folic acid [Tab-A-Sherley] 1 TABLET tablet
1 tab PO DAILY@1000
rosuvastatin 20 MG tablet
30 mg PO QPM
aspirin 81 mg Tablet,Chewable
81 mg PO DAILY
Mounjaro 2.5 mg/0.5 mL Pen Injector
2.5 mg SC QWEEK
Rx Instructions:
for 4 weeks
losartan 50 MG tablet
50 mg PO BID Qty: 60 0RF
Jardiance 10 mg Tablet
10 mg PO DAILY 30 Days Qty: 30 0RF
Discontinued
amlodipine 10 MG tablet
10 mg PO DAILY
insulin aspart U-100 [Novolog FlexPen U-100 Insulin] 300 UNITS/3 ML insulin pen
19 units SC AC
metoprolol tartrate 25 MG tablet
25 mg PO BID Qty: 60 0RF
amoxicillin-pot clavulanate 875-125 mg tablet
1 tab PO BID 7 Days Qty: 14 0RF
Discharge Orders:
Discharge Patient (As Directed); Ordered 07/01/24
Ordered By: Elena Smith
Discharge Date and Time
Print Language: KOREAN
[2024-07-01] MEDS: LOVENOX 40 MG SC (17:26)
[2024-07-01] MEDS: CRESTOR 30 MG PO (17:26)
[2024-07-01 17:31] LABS: Glucose - Point of Care 140 mg/dl (70-99)
[2024-07-01] MEDS: AFLURIA (36 mos+) 2024-2025 FORMULA 0.5 ML IM (17:31)
--- NOTE | 2024-07-01 19:37 | PTCARENOTE ---
community health specialist at facility with phone number [phone] transferred this nurse to appropriate floor for report but had no answer. pt d/c to [facility] via ambulance with PICC in place on [address].
== END 2024-07-01 19:35 | DRG 853 ==
LOC: 2 NORTH 01:02
PROVIDERS: Hospitalist; Internal Medicine; Internal Medicine Critical Care Medicine; Nurse Practitioner Family; Physician Assistant; Radiology Diagnostic Radiology; Radiology Vascular & Interventional Radiology; Registered Nurse; Student in an Organized Health Care Education/Training Program; Surgery; ADMITTING PHYSICIAN Hospitalist; ATTENDING PHYSICIAN Hospitalist; CONSULT PHYSICIAN Orthopaedic Surgery; CONSULT PHYSICIAN Physical Medicine & Rehabilitation; EMERGENCY PHYSICIAN Emergency Medicine; FAMILY PHYSICIAN Family Medicine; OTHER PHYSICIAN Internal Medicine Critical Care Medicine; OTHER PHYSICIAN Internal Medicine Infectious Disease; OTHER PHYSICIAN Surgery
PROC: 0DBM0ZZ Excision of Descending Colon, Open Approach (ICD-10-PCS; 2024-05-22)
PROC: 30233N1 Transfusion of Nonautologous Red Blood Cells into Peripheral Vein, Percutaneous Approach (ICD-10-PCS; 2024-05-22)
PROC: 0BH17EZ Insertion of Endotracheal Airway into Trachea, Via Natural or Artificial Opening (ICD-10-PCS; 2024-05-22)
PROC: 0D9670Z Drainage of Stomach with Drainage Device, Via Natural or Artificial Opening (ICD-10-PCS; 2024-05-22)
PROC: 0D1M0Z4 Bypass Descending Colon to Cutaneous, Open Approach (ICD-10-PCS; 2024-05-22)
PROC: 0DTN0ZZ Resection of Sigmoid Colon, Open Approach (ICD-10-PCS; 2024-05-22)
PROC: 5A1935Z Respiratory Ventilation, Less than 24 Consecutive Hours (ICD-10-PCS; 2024-05-22)
PROC: 0BP1XDZ Removal of Intraluminal Device from Trachea, External Approach (ICD-10-PCS; 2024-05-23)
PROC: 0W9G30Z Drainage of Peritoneal Cavity with Drainage Device, Percutaneous Approach (ICD-10-PCS; 2024-06-11)
PROC: 02HV33Z Insertion of Infusion Device into Superior Vena Cava, Percutaneous Approach (ICD-10-PCS; 2024-06-14)
PROC: 0W9C30Z Drainage of Mediastinum with Drainage Device, Percutaneous Approach (ICD-10-PCS; 2024-06-15)
PROC: 0W9B3ZZ Drainage of Left Pleural Cavity, Percutaneous Approach (ICD-10-PCS; 2024-06-15)
PROC: 30243N1 Transfusion of Nonautologous Red Blood Cells into Central Vein, Percutaneous Approach (ICD-10-PCS; 2024-06-18)
PROC: 0W9B3ZX Drainage of Left Pleural Cavity, Percutaneous Approach, Diagnostic (ICD-10-PCS; 2024-06-19)
PROC: 0W9B30Z Drainage of Left Pleural Cavity with Drainage Device, Percutaneous Approach (ICD-10-PCS; 2024-06-24)
PROC: 3E0L3GC Introduction of Other Therapeutic Substance into Pleural Cavity, Percutaneous Approach (ICD-10-PCS; 2024-06-25)
PROC: 3E0L317 Introduction of Other Thrombolytic into Pleural Cavity, Percutaneous Approach (ICD-10-PCS; 2024-06-25)
PROC: 0BN Respiratory System, Release (ICD-10-PCS; 2024-06-25)
PROC: 3E02340 Introduction of Influenza Vaccine into Muscle, Percutaneous Approach (ICD-10-PCS; 2024-07-01)
DX: A41.51 Sepsis due to Escherichia coli [E. coli] (principal); K65.1 Peritoneal abscess; L89.153 Pressure ulcer of sacral region, stage 3; K65.9 Peritonitis, unspecified; R65.21 Severe sepsis with septic shock; R57.1 Hypovolemic shock; K57.20 Diverticulitis of large intestine with perforation and abscess without bleeding; E87.20 Acidosis, unspecified; Q25.1 Coarctation of aorta; N17.9 Acute kidney failure, unspecified; K56.7 Ileus, unspecified; D62 Acute posthemorrhagic anemia; S36.030A Superficial (capsular) laceration of spleen, initial encounter; E87.1 Hypo-osmolality and hyponatremia; J98.11 Atelectasis; J90 Pleural effusion, not elsewhere classified; K91.870 Postprocedural hematoma of a digestive system organ or structure following a digestive system procedure; E87.3 Alkalosis; Z16.12 Extended spectrum beta lactamase (ESBL) resistance; R74.01 Elevation of levels of liver transaminase levels; M17.0 Bilateral primary osteoarthritis of knee; E87.70 Fluid overload, unspecified; L89.151 Pressure ulcer of sacral region, stage 1; R32 Unspecified urinary incontinence; E87.6 Hypokalemia; I10 Essential (primary) hypertension; I1A.0 Resistant hypertension; E66.01 Morbid (severe) obesity due to excess calories; E11.22 Type 2 diabetes mellitus with diabetic chronic kidney disease; R00.0 Tachycardia, unspecified; E78.00 Pure hypercholesterolemia, unspecified; E11.36 Type 2 diabetes mellitus with diabetic cataract; D69.59 Other secondary thrombocytopenia; B96.1 Klebsiella pneumoniae [K. pneumoniae] as the cause of diseases classified elsewhere; H91.90 Unspecified hearing loss, unspecified ear; I51.7 Cardiomegaly; X58.XXXA Exposure to other specified factors, initial encounter; E11.65 Type 2 diabetes mellitus with hyperglycemia; Z90.710 Acquired absence of both cervix and uterus; Z87.440 Personal history of urinary (tract) infections; Z90.13 Acquired absence of bilateral breasts and nipples; Z85.3 Personal history of malignant neoplasm of breast; Z85.89 Personal history of malignant neoplasm of other organs and systems; Z86.79 Personal history of other diseases of the circulatory system; Z79.4 Long term (current) use of insulin; Z92.21 Personal history of antineoplastic chemotherapy; Z85.42 Personal history of malignant neoplasm of other parts of uterus; Z80.0 Family history of malignant neoplasm of digestive organs; Z88.1 Allergy status to other antibiotic agents; Z88.7 Allergy status to serum and vaccine; Z79.82 Long term (current) use of aspirin; Z79.84 Long term (current) use of oral hypoglycemic drugs; Z68.33 Body mass index [BMI] 33.0-33.9, adult; Z23 Encounter for immunization; Z86.19 Personal history of other infectious and parasitic diseases; Z98.82 Breast implant status; Z90.722 Acquired absence of ovaries, bilateral; Z11.52 Encounter for screening for COVID-19; Z79.01 Long term (current) use of anticoagulants
CPT/HCPCS: 88305; 88307; 32555; 32557; 32561; 49406; 49424; 71045; 71046; 71250; 71270; 73564; 74176; 74177; 74178; 76080; 76604; 80048; 80053; 81003; 81015; 82150; 82728; 82805; 82945; 82962; 83036; 83540; 83550; 83605; 83615; 83690; 83735; 83880; 83986; 84100; 84157; 84439; 84443; 84478; 84484; 85014; 85018; 85025; 85027; 85610; 85730; 86850; 86900; 86901; 86920; 87015; 87040; 87070; 87075; 87077; 87102; 87116; 87149; 87186; 87205; 87811; 88112; 89051; 90686; 93005; 93970; 94002; 94003; 94640; 96361; 96365; 96375; 97110; 97116; 97163; 97167; 97530; 97535; 99152; 99153; 99285; C1729; C1769; C1776; G0008; J1335; J2997; P9016; P9045; Q9967

== ENCOUNTER → 2024-07-16 13:00 | Outpatient (REF) | payer BC, SELFPAY | LOC: REG 13:00 | PROVIDERS: ATTENDING PHYSICIAN Internal Medicine Infectious Disease; FAMILY PHYSICIAN Family Medicine | DX: K57.80 Diverticulitis of intestine, part unspecified, with perforation and abscess without bleeding (principal) | CPT/HCPCS: 36415; 86140 ==

== ENCOUNTER 2024-07-18 01:44 | Inpatient (IN) | payer BC, SELFPAY ==
[2024-07-17 17:47] VITALS: BP 157/84
--- NOTE | 2024-07-17 17:53 | EDRN ---
Had labs drawn outpt here. Has PICC LUE. Reports difficult stick.
[2024-07-17] MEDS: TYLENOL 650 MG PO (17:58)
[2024-07-17 19:00] VITALS: BP 151/100
--- NOTE | 2024-07-17 19:08 | ED.GENMED ---
History of Present Illness
General
Chief Complaint: Fever
Source: patient and family (Son)
Exam Limitations: none
Time Seen by Provider: 07/17/24 18:22
History of Present Illness
History of Present Illness:
This is a 58 year old female that comes in with c/o drainage around JODIE drain and fowl smell. Son states that she was here in the hospital for 43 days. Then in rehab for 15 days. States that he went to pick her up for her Pulmonary appointment today
and when he got there there was fluid on her shirt and a fowl smell. States that she had drainage coming around the JODIE drain. States that after the appointment the Colorectal doctor, Dr. Quiles called and they were told to come to the ER. Son also
states that last night and on Monday when she awoke a couple times she was little confused and saying things that were no accurate but then she would come around. States that she has abd discomfort where the drain is, has had headaches ever morning
and was a little dizzy yesterday. Denies any fever, chills, chest pain, SOB, nausea, vomiting, diarrhea, urinary burning.
Past History
Past History
ED Past Medical History: Cancer (Endometrial CA, Breast CA), HTN, Hypercholesterolemia, IDDM and Other (Back pain, Diverticulitis, UTI, 2 JODIE drains)
ED Past Surgical History: Bowel resection (Colostomy), Cardiac (Co-archtation of the aorta with stent), (2 ), Gynecological (Hysterectomy), Tonsilectomy (And adenoids) and Other (Bilateral Mastectomy Right lymphectomy, Coarctation of aorta
with stent)
Social History
Tobacco: Non-smoker
Alcohol: None
Drug: None
Personal: Other ()
Living: with family
Review of Systems
Review of Systems
All Other Systems: ROS reviewed and negative except as documented in HPI and ROS
Constitutional: Reports no symptoms; Denies fever or chills
EENT: Reports no symptoms
Respiratory: Reports no symptoms; Denies cough or trouble breathing
Cardiac: Reports no symptoms; Denies chest pain
ABD/GI: Reports abdominal pain; Denies nausea, vomiting or diarrhea
: Reports no symptoms; Denies dysuria, frequency or urgency
Musculoskeletal: Reports no symptoms
Skin: Reports no symptoms
Neurological: Reports dizzy (Yesterday) and headache (in the morning)
Psychiatric: Reports no symptoms
Phy Exam
General Physical Exam
General Presentation: no apparent distress
General age: appears stated age
General Skin: warm and dry
General Habitus: elderly
General Mental: alert
General Hydration: dry mucous membranes
ENT Exam
ENT Exam: TM's normal, pharynx normal and neck supple
Eye Exam
Eye Exam: EOMI
Cardiovascular Exam
Cardiovascular Exam: regular rate/rhythm, no edema, normal peripheral pulses and other (Murmur)
Pulmonary Exam
Pulmonary Exam: lungs clear, no respiratory distress, no rales, chest non tender, no crackles, no rhonchi, no wheezing and no cough
Gastrointestinal Exam
Gastrointestinal Exam: normal bowel sounds, soft, no organomegaly, no pulsatile mass, non distended, tender (around mid abd JODIE drain) and other (Left lateral upper abd JODIE drain site clean and dry. )
External Findings: colostomy (left lower abd)
Musculoskeletal Exam
Musculoskeletal Exam: full ROM and no edema
Skin Exam
Skin Exam: normal color, warm/dry, no rash, no petechia and other (Left upper arm PIC line site clean and dry. )
Psychiatric Exam
Psychiatric Exam: normal mood/affect
Sepsis
Sepsis Screening
Sepsis Assessment: Sepsis Ruled Out
Sepsis Screen
Sepsis Screen: Sepsis Ruled Out
Date: 07/17/24
Time: 23:37
Course
Orders/Labs/Results
Orders:
Orders
07/17/24 17:56
Acetaminophen [Tylenol] 650 mg PO NOW STA
07/17/24 19:05
Iohexol [Omnipaque] See Protocol PO NOW STA
07/17/24 19:06
CT Abd/pel W Iv And Oral Contr Urgent
Comment:
Reason For Exam: Drainage around JODIE drain. abd pain
07/17/24 19:07
0.9% Sodium Chloride 1000 ml [Nss] 1,000 ml IV BOLUS
07/17/24 19:28
Urinalysis Reflex To Culture Urgent
Date Specimen was Collected: 07/17/24
Time Specimen was Collected: 19:20
Urine Microscopic Reflex Cult Urgent
Urine Culture Urgent
FAN Source: U
Specimen Description:
Date Specimen was Collected: 07/17/24
Time Specimen was Collected: 19:20
Wound Culture [Wound/Abscess/Other Culture] Urgent
FAN Source: Abscess
Specimen Description:
Date Specimen was Collected: 07/17/24
Time Specimen was Collected: 19:20
Comment: drainage around JODIE drain
07/17/24 19:59
Complete Blood Count/With Diff Urgent
Comprehensive Metabolic Panel Urgent
Lactic Acid Urgent
07/17/24 20:02
Blood Culture Urgent
FAN Source: Blood/Venous
Specimen Description:
07/17/24 20:12
Chest [CR Chest - 2 Views ] Urgent
Comment:
Reason For Exam: fever; check picc placement
07/17/24 20:56
Blood Culture Urgent
FAN Source: Blood/Venous
Specimen Description:
Comment: rt hand
07/17/24 22:45
Acetaminophen [Tylenol] 650 mg .ROUTE .STK-MED ONE
07/17/24 22:52
Acetaminophen [Tylenol] 1,000 mg .ROUTE .STK-MED ONE
07/17/24 22:53
Acetaminophen [Tylenol] 1,000 mg PO NOW STA
07/17/24 23:22
Piperacillin/Tazo 3.375 Gram [Zosyn] 3.375 gram in 50 ml IV NOW
Abnormal Lab Results
07/17/24 07/17/24
19:28 19:59
RBC 3.08 L 10^6/uL
(4.20-5.40)
Hgb 8.2 L g/dL
(12.0-16.0)
Hct 25.2 L %
(37.0-47.0)
MCH 26.6 L pg
(27.0-31.0)
MCHC 32.5 L g/dL
(33.0-37.0)
RDW 16.8 H %
(11.5-14.5)
MPV 11.7 H fL
(7.4-10.4)
Absolute Neuts (auto) 6.6 H 10^3/uL
(1.4-6.5)
Absolute Monos (auto) 0.8 H 10^3/uL
(0.1-0.6)
Neutrophils % 75.7 H %
(42.2-75.2)
Lymphocytes % 13.7 L %
(20.5-51.1)
Glucose 135 H mg/dl
(70-99)
Albumin 3.1 L g/dl
(3.5-5.0)
Ur Occult Blood Reflex 1+ A
(Negative)
Leukocyte Esterase Rfl 2+ A
(Negative)
Urine RBC 3-6 A /HPF
(0-2)
Urine WBC (Reflex) 50-60 A /HPF
(0-5)
Urine Bacteria (Reflex) Few A
(Negative)
Urine Yeast Moderate A
(Negative)
Urine Glucose 3+ A
(Negative)
Urine Albumin (Reflex) 2+ A
(Neg - Trace)
07/17/24 19:59
07/17/24 19:59
H/H slightly slow, Anemia. Hyperglycemia. Urine positive for infection. Lactic acid normal at 0.7,
Vital Signs
Initial and Last Documented VS:
Initial Vital Signs
Temp Pulse Resp BP Pulse Ox
101.4 F H 95 16 157/84 97
07/17/24 17:47 07/17/24 17:47 07/17/24 17:47 07/17/24 17:47 07/17/24 17:47
Last Documented Vital Signs
Temp Pulse Resp BP Pulse Ox
100.5 F H 102 16 159/75 94
07/17/24 18:44 07/17/24 23:30 07/17/24 23:15 07/17/24 23:00 07/17/24 23:30
MDM/Problems Addressed
Differential Diagnosis Includes:
Abscess increase in abd,
MDM/Problems Addressed:
This is a 58 year old female that comes in with c/o drainage around the JODIE drain in the middle abd.
Patient found to have a fever here. Will get labs, CT scan, IV fluids, Urine
Back into see patient and son. Explained that she would be admitted. Patient has a UTI and the mid abd collection has increased in size. Spoke with Radiologist also and he will add an addendum as there is no Left chest tube pigtail. Patient will be
started on antibiotics. Son states that she has been getting Ertapenem 1 gm at the longterm daily. Hospitalist notified about admission.
Chronic conditions affecting care: DM and Previous abdomnial surgery
Acute Exacerbation and/or Progression of Chronic Illness: Previous abdomnial surgery
*Radiology
Radiology exam reviewed: radiology read reviewed (Chest-Stable positioning fo the left upper extremity PICC. Small left pleural effusion with adjacent atelectasis, similar to prior. CT-Postoperative changes of Mack's procedure. There is stable
appearance of the right lower quadrant percutaneous drain with increased size of the gas and fluid ), all reviewed NAD by ED Provider (CT cont-containing collection in the mid abdomen in the abdomen measuring up to 10.2cm, previously 8c,. There is
wall thickening of the adjacent Bowel, likely reactive enteritis. stable positioning of the left pigtailed chest tube with small loculated pleural effusion along the catheter tip ) and other (CT cont=measuring 5.4 X 7.4cm. There is a left greater
than right Bibasilar atelectasis. )
*Pulse Oximetry
Patient hypoxic: no
*EKG
Interpreted by ED Provider?: NA
Rate: EKG- N/A
*Commodity Merchant Interpretation
Rate: normal
Heart Rate: 96
Rhythm: sinus
*Critical Care Note
Total Time (30-74mins, 75-104mins- exclusive of procedures): Not Applicable
ED Attending Note
-
Portions of this chart may have been created with voice recognition software.� Occasional wrong word or��sound alike� substitutions may have occurred due to the inherent limitations of voice recognition software.
Discharge Plan
Departure
Patient Disposition: Admit
Date of Disposition: 07/17/24
Time of Disposition: 23:33
Admit to: Med/Surg
Presentation/result/management discussed w/ accepting MD/DO: Hospitalist
Patient with high blood pressure during this ER visit?: Yes
Condition: Good
Covid-19: Not Applicable
Discharge Problem:
UTI (urinary tract infection), Intra-abdominal fluid collection
Prescriptions:
No Action
cholecalciferol (vitamin D3) 2,000 UNITS tablet
2,000 units PO DAILY@1000
multivitamin with folic acid [Tab-A-Sherley] 1 TABLET tablet
1 tab PO DAILY@1000
rosuvastatin 20 MG tablet
30 mg PO QPM
aspirin 81 mg Tablet,Chewable
81 mg PO DAILY
Mounjaro 2.5 mg/0.5 mL Pen Injector
2.5 mg SC QWEEK
Rx Instructions:
for 4 weeks
losartan 50 mg Tablet
50 mg PO BID Qty: 0 0RF
spironolactone 25 mg Tablet
25 mg PO DAILY Qty: 0 0RF
ferrous sulfate [FeroSul] 325 mg (65 mg iron) Tablet
325 mg PO DAILY Qty: 0 0RF
Ertapenem [Invanz] 1000 MG
0.9% Sodium Chloride [Nss] 50 ML
120 mls/hr IV Q24H
Reason for use: Infection
Ordered By: Elena Vaughn MD, Resident
Last Taken: Unknown
acetaminophen 325 mg Tablet
650 mg PO Q6HPRN PRN (Reason: mild pain) Qty: 0 0RF
metoprolol tartrate 100 mg Tablet
100 mg PO BID Qty: 0 0RF
gabapentin 100 mg Capsule
100 mg PO TID Qty: 0 0RF
nifedipine 60 mg Tablet Extended Release
60 mg PO BID Qty: 0 0RF
simethicone 80 mg Tablet,Chewable
80 mg PO QIDPRN PRN (Reason: gas pain) Qty: 0 0RF
insulin aspart U-100 100 unit/mL (3 mL) Insulin Pen
4 unit SC AC Qty: 0 0RF
losartan 50 MG tablet
50 mg PO BID Qty: 60 0RF
lidocaine 4 % Adhesive Patch,Medicated
1 patch topical DAILY Qty: 0 0RF
Insulin Glargine Lantus [Lantus] 8 UNITS
Subcutaneous Insulin Syringe [Syringe-Insulin] 0 UNIT
As Directed mls/hr SC DAILY
Reason for use: Diabetes
Ordered By: Elena Vaughn MD, Resident
Last Taken: Unknown
Jardiance 10 mg Tablet
10 mg PO DAILY 30 Days Qty: 30 0RF
tramadol 50 mg tablet
50 mg PO Q6H PRN (Reason: pain) Qty: 10 0RF
Referrals:
NONE,* [Active] -
Interventions
Interventions:
*Risk Screen - Suicide Last Done: 07/17/24 19:23
*Neglect/Abuse Screening Last Done: 07/17/24 19:23
ED- Neurological Assessment Last Done: 07/17/24 19:22
ED-Skin Assessment Last Done: 07/17/24 19:22
Discharge Date and Time
Print Language: INDONESIAN
[2024-07-17] MEDS: OMNIPAQUE 50 ML PO (19:14)
[2024-07-17 19:40] LABS: Urine Albumin 2+ (Neg - Trace); Urine Bilirubin Negative (Negative); Urine Character Slightly Cloudy (Clear); Urine Color Yellow; Urine Glucose 3+ (Negative); Urine Ketone Negative (Negative); Urine Leukocyte 2+ (Negative); Urine Nitrite Negative (Negative); Urine Occult Blood 1+ (Negative); Urine Specific Gravity 1.015 (<1.030); Urine Urobilinogen Negative (Neg - 1+)
[2024-07-17 20:00] VITALS: BP 165/78
[2024-07-17 20:12] LABS: % Basophils 0.2 % (0-2); % Eosinophils 0.9 % (0-6); % Immature Granulocytes 0.3 % (0-0.5); % Lymphocytes 13.7 % (20.5-51.1); % Monocytes 9.2 % (1.7-9.3); % Neutrophils 75.7 % (42.2-75.2); Absolute Eosinophils 0.1 10^3/uL (0-0.7); Absolute Lymphocytes 1.2 10^3/uL (1.2-3.4); Absolute Monocytes 0.8 10^3/uL (0.1-0.6); Absolute Neutrophils 6.6 10^3/uL (1.4-6.5); Hematocrit 25.2 % (37.0-47.0); Hemoglobin 8.2 g/dL (12.0-16.0); Mean Corp Hgb Conc. 32.5 g/dL (33.0-37.0); Mean Corpuscular Hgb 26.6 pg (27.0-31.0); Mean Corpuscular Volume 81.8 fL (81.0-99.0); Mean Platelet Volume 11.7 fL (7.4-10.4); Nucleated Red Blood Cells % 0 %; Platelet Count 227 10^3/uL (130-400); Red Blood Cell Count 3.08 10^6/uL (4.20-5.40); Red Cell Dist. Width 16.8 % (11.5-14.5); White Blood Cell Count 8.7 10^3/uL (4.8-10.8)
[2024-07-17] MEDS: NSS 1000 IV (20:20)
[2024-07-17 20:22] LABS: Lactic Acid 0.7 mmol/L (0.7-2.0)
[2024-07-17 20:23] LABS: Urine Bacteria Few (Negative); Urine White Cell 50-60 /HPF (0-5); Urine Yeast Moderate (Negative)
[2024-07-17 20:28] LABS: ALT (SGPT) 13 U/L (0-35); AST (SGOT) 24 U/L (14-36); Albumin 3.1 g/dl (3.5-5.0); Alkaline Phosphatase 78 U/L (38-126); Blood Urea Nitrogen 14 mg/dl (7-17); Calcium 8.4 mg/dl (8.4-10.2); Carbon Dioxide 26 mmol/L (22-30); Chloride 98 mmol/L (98-107); Glucose 135 mg/dl (70-99); Potassium 3.5 mmol/L (3.5-5.1); Sodium 137 mmol/L (135-145); Total Bilirubin 0.6 mg/dl (0.2-1.3); Total Protein 6.3 g/dl (6.3-8.2); eGFR > 60.00
[2024-07-17 21:00] VITALS: BP 164/66
[2024-07-17] MEDS: TYLENOL 1000 MG PO (22:53)
[2024-07-17 23:00] VITALS: BP 159/75
--- NOTE | 2024-07-17 23:32 | HPS.HSE ---
Family Physician
-
Family Physician: Jesus Hughes
Chief Complaint
-
fever
History of Present Illness
Patient is a 58-year-old female with past medical history of hypertension, hypercholesterolemia, DM, endometrial cancer and breast cancer who presented to [facility] for evaluation of drainage around JODIE drain and fowl smell. Patients son at
bedside to assist with history. Patient was d/c from 15 days ago and sent to rehab. When he picked her up for pulmonary apt today he noticed leaking pus from around JODIE drain on RUQ of abdomen and called Colorectal to report who advised he take
her to ED for evaluation. Patient denies any fevers, chills, shortness of breath, cough, chest pain, abdominal pain, issues with colostomy or urinary symptoms.
Medical History
Past Medical History
Past Medical History: Reports Other
Additional Past Medical History:
Acute sigmoid diverticulitis with perforation leading to septic shock from bacteroids bacteremia
Recurrent pleural effusion with thoracentesis 06/15/2024 750 mL, 9 2424-650 mL
Chest tube placed 06/24/2024 had thrombolytics through the tube 06/25/2024. Tube was taken out 06/28/2024
Postoperative VDRF-extubated 05/23/2024
Acute postoperative blood loss anemia Mild iron deficiency
Acute kidney injury
Hypokalemia
Anion gap metabolic acidosis from Lactic acidosis resolved.
Acute transaminitis
Multidrug-resistant hypertension
Hyperlipidemia
Diabetes
Thrombocytopenia secondary to sepsis
Coarctation of aorta with history of prior aortic stenting-Restart aspirin
Obesity
Sacral Decub stage 2-discussed with the patient regarding offloading and also about diet.
History of breast cancer status post mastectomy and chemo
History of endometrial cancer status post hysterectomy
Past Surgical History: Reports Other
Additional Past Surgical History:
History of breast cancer status post mastectomy and chemo
History of endometrial cancer status post hysterectomy
Social History
Tobacco: Non-smoker
Alcohol: None
Drug: None
Living: [facility] (currently staying in [facility] for rehab)
Family History
Family History: Not pertinent
Allergies / Home Medications
Allergies reflects when Allergies were last updated in [facility].
Home Medications with original date entered in [facility]
Allergy/Medication List:
Allergies
Allergy/AdvReac Type Severity Reaction Status Date / Time
diphtheria, pertussis, Allergy Unknown Verified 07/17/24 17:52
tetanus vacc
gentamicin Allergy Hearing Verified 07/17/24 17:52
loss
Home Medications
cholecalciferol (vitamin D3) 50 mcg (2,000 unit) tablet 2,000 units PO DAILY@1000 Supplement 09/02/20
multivitamin with folic acid 400 mcg tablet (Tab-A-Sherley) 1 tab PO DAILY@1000 Supplement 09/02/20
rosuvastatin 20 mg tablet 30 mg PO QPM High cholesterol 12/18/21
aspirin 81 mg chewable tablet 81 mg PO DAILY Blood Clot Prevention/Tx 05/20/24
tirzepatide 2.5 mg/0.5 mL subcutaneous pen injector (Mounjaro) 2.5 mg SC QWEEK Diabetes 05/20/24
Ertapenem [Invanz] 1,000 mg 120 mls/hr IV Q24H Infection 07/01/24
Insulin Glargine Lantus [Lantus] 8 units As Directed mls/hr SC DAILY Diabetes 07/01/24
acetaminophen 325 mg tablet 650 mg (2 x 325 mg) PO Q6HPRN PRN mild pain #0 tabs 07/01/24
empagliflozin 10 mg tablet (Jardiance) 10 mg PO DAILY Diabetes 30 days #30 tabs 07/01/24
ferrous sulfate 325 mg (65 mg iron) tablet (FeroSul) 325 mg PO DAILY Supplement #0 tabs 07/01/24
gabapentin 100 mg capsule 100 mg PO TID Pain #0 caps 07/01/24
insulin aspart U-100 100 unit/mL (3 mL) subcutaneous pen 4 unit (0.04 mL) SC AC Diabetes #0 mL 07/01/24
lidocaine 4 % topical patch 1 patch topical DAILY Pain #0 ea 07/01/24
losartan 50 mg tablet 50 mg PO BID Blood pressure #0 tabs 07/01/24
losartan 50 mg tablet 50 mg PO BID Blood pressure #60 tabs 07/01/24
metoprolol tartrate 100 mg tablet 100 mg PO BID Blood pressure #0 tabs 07/01/24
nifedipine 60 mg tablet,extended release 60 mg PO BID Blood pressure #0 tabs 07/01/24
simethicone 80 mg chewable tablet 80 mg PO QIDPRN PRN gas pain #0 tabs 07/01/24
spironolactone 25 mg tablet 25 mg PO DAILY Blood pressure #0 tabs 07/01/24
tramadol 50 mg tablet 50 mg PO Q6H PRN pain #10 tabs 07/01/24
Review of Systems
-
Constitutional: Reports Fever
EENT: Reports No Symptoms
Respiratory: Reports Cough
Cardiac: Reports No Symptoms
Abdomen/GI: Reports No Symptoms
: Reports No Symptoms
Musculoskeletal: Reports Other (drainage to RLQ abdomen JODIE drain)
Skin: Reports No Symptoms
Neurological: Reports No Symptoms
Endocrine: Reports No Symptoms
Hematologic/Lymphatic: Reports No Symptoms
Psych: Reports No Symptoms
Physical Exam
Vital Signs
Vital Signs
Temp Pulse Resp BP Pulse Ox
100.5 F H 101 22 159/75 91
07/17/24 18:44 07/17/24 23:00 07/17/24 23:00 07/17/24 23:00 07/17/24 23:00
Physical Exam
General: Well Developed, Well Nourished and No Apparent Distress
HEENT: NormoCephalic, Moist mucous membranes and Atraumatic
Respiratory: Clear and Non Labored Respirations; No Wheezes, Rales, Rhonchi or Crackles
Cardiac: S1/S2 and Tachycardia; No Murmur or Rub
Breast: Deferred by me
GI: Soft, Non Tender, Normal Bowel Sounds and Ostomy; No Organomegaly
Rectal: Deferred by Provider
Genito-urinary: Deferred by me
Musculoskeletal: No Clubbing, No Cyanosis and No Edema
Skin: Warm and IV/Catheter Site; No Rash
Neuro: Awake, Alert, AO x 3 and Nonfocal/grossly intact
Hematologic/Lymphatic: No Lymphadenopathy
Psych: Calm
Laboratory Results
-
07/17/24 19:59
07/17/24 19:59
Laboratory Results
Lactic Acid 0.7 mmol/L (0.7-2.0) 07/17/24 19:59
Total Bilirubin 0.6 mg/dl (0.2-1.3) 07/17/24 19:59
AST 24 U/L (14-36) 07/17/24 19:59
ALT 13 U/L (0-35) 07/17/24 19:59
Alkaline Phosphatase 78 U/L (38-126) 07/17/24 19:59
Data Reviewed
-
Diagnostic Radiology: Report Reviewed by me (CXR: Stable positioning of the left upper extremity PICC. Small left pleural effusion with adjacent atelectasis, similar to prior.)
CT Scan: Report Reviewed by me
Lab Data: Labs Reviewed by me
Impression/Plan
-
IMPRESSION/PLAN:
#Sepsis 2/2 increased fluid collection of abdomen
- CT ABD: There is stable appearance of the right lower quadrant percutaneous drain with increased size of the gas and fluid containing collection in the mid abdomen in the abdomen measuring up to 10.2 cm, previously 8 cm. There is wall thickening
of the adjacent bowel, likely reactive enteritis.
- Wound culture pending
- UA suggestive of UTI
- blood cultures pending
- appreciate ID
- start Zosyn
- hold ertapenem
- will keep NPO for possibility of IR intervention
- NSS 60cc/hr
#Acute sigmoid diverticulitis with perforation, s/p shock
#Status post exploratory laparotomy/Barbour's procedure
- appreciate colorectal surgery
- exp lap with ostomy and JODIE drain (still in place) on 05/24/24
#Exudative pleural effusion
- s/p thoracentesis 06/14 with 750 mls drained
- CXR: Small left pleural effusion with adjacent atelectasis, similar to prior.
#Essential HTN
- Continue nifedipine
- Continue spironolactone
- continue metoprolol
- continue losartan
#Type 2 DM
- insulin requiring
- Hemoglobin A1c of 7.4 (April 2024)
- hold jardiance and lantus
- Accuchecks AC & HS with SSI
#Acute blood loss anemia with prior hospitalization
- s/p 3 units PRBC previous admission
- monitor H/H
#H/o Coarctation of the Aorta
- s/p prior aortic stenting
- Continue aspirin
#HLD
- continue statin
#Sacral Pressure Wound Stage 3
- most likely due to pressure/position (pt does not really seem motivated to move)
Full Code
DVT Prophylaxis: Heparin SQ
[2024-07-17] MEDS: ZOSYN 50 IV (23:37)
--- NOTE | 2024-07-17 23:46 | PHANOTE ---
Med Rec Note:
Spoke with pt and family, family states pt has been at [facility]. Called [facility] ([phone]) asked for pts medication list to be faxed over.
Advised pt's nurse of pending fax.
[2024-07-18] VITALS (16 sets, daily range): BP systolic 83–179; BP diastolic 60–91
--- NOTE | 2024-07-18 00:17 | W.PN.UPDATE ---
Update Note
Progress Note Update
This is an addendum to the H&P written by Jesika Arvizu on 07/17/2024. Patient seen and examined independently with MANAGER OF [employer]AL[employer].
58-year-old female breast cancer status postmastectomy and chemotherapy, endometrial cancer, multidrug-resistant hypertension, sick sinus syndrome, hypercholesteremia, diabetes, sigmoid diverticulitis status post Barbour's procedure, endometrial
cancer status post hysterectomy, coarctation of the aorta with history of prior aortic stenting, sacral pressure wound, presenting with drainage around the JODIE drain recently placed with foul smell.
Patient was recently admitted from 05/20 to 07/01 for acute sigmoid diverticulitis with perforation with Bacteroides bacteremia status post exploratory laparotomy with Barbour's resection 05/22 with colostomy. There was intraoperative splenic capsular
tear with subsequent hematoma development/left upper quadrant infected hematoma status post drain placement 06/14 with culture showing ESBL E. coli. She also had anterior abdominal collection/abscess s/p drainage with drain placement on 06/10 with
culture growing Klebsiella and ESBL E. coli. She also had recurrent pleural effusion with thoracentesis performed with chest tube placed and thrombolytics through the tube.
Patient arrives clinically septic with fever, tachycardia, tachypnea secondary to increased size of gas/fluid containing collection mid abdomen to 10.2 cm with reactive enteritis of the adjacent bowel. Urinalysis also suggestive of UTI. Check
culture from JODIE drain, blood cultures, IV fluids, colorectal surgery consulted. Patient currently receiving ertapenem through PICC line which was recommended to be continued until July 22. Ertapenem switched to Zosyn. ID consulted. Keep
n.p.o. for now as patient will likely require further interventions by IR.
Chest x-ray shows small left pleural effusion with adjacent atelectasis.
Hold Lantus. Insulin sliding scale for now
Patient reportedly had elevated blood pressure we had blood pressure medications were increased.
[2024-07-18] MEDS: NSS 1000 IV ×2 (02:43→22:14)
[2024-07-18] MEDS: ZOSYN 50 IV (05:54)
[2024-07-18 06:27] LABS: Hematocrit 24.7 % (37.0-47.0); Hemoglobin 7.8 g/dL (12.0-16.0); Mean Corp Hgb Conc. 31.6 g/dL (33.0-37.0); Mean Corpuscular Volume 82.3 fL (81.0-99.0); Platelet Count 227 10^3/uL (130-400); Red Cell Dist. Width 16.9 % (11.5-14.5); White Blood Cell Count 7.8 10^3/uL (4.8-10.8)
[2024-07-18 06:50] LABS: Blood Urea Nitrogen 11 mg/dl (7-17); Calcium 8.2 mg/dl (8.4-10.2); Carbon Dioxide 28 mmol/L (22-30); Chloride 101 mmol/L (98-107); Glucose 104 mg/dl (70-99); Potassium 3.4 mmol/L (3.5-5.1); Sodium 141 mmol/L (135-145); eGFR > 60.00
[2024-07-18 08:52] LABS: Glycohemoglobin (HgbA1c) 6.6 % (4.0-5.6)
[2024-07-18] MEDS: PROCARDIA XL (EXTENDED RELEASE) 60 MG PO ×2 (09:33→22:15)
[2024-07-18] MEDS: HEPARIN 5000 UNITS SC ×2 (09:34→22:14)
[2024-07-18] MEDS: COZAAR 50 MG PO ×2 (09:34→22:16)
[2024-07-18] MEDS: LOW STRENGTH ASPIRIN 81 MG PO (09:34)
[2024-07-18] MEDS: ALDACTONE 25 MG PO (09:34)
[2024-07-18] MEDS: FEOSOL 325 MG PO (09:34)
[2024-07-18] MEDS: LOPRESSOR 100 MG PO ×2 (09:34→22:16)
[2024-07-18] MEDS: NEURONTIN 100 MG PO ×3 (09:34→22:17)
[2024-07-18 09:47] LABS: Glucose - Point of Care 126 mg/dl (70-99)
[2024-07-18] MEDS: NOVOLOG FLEXPEN-LOW RESISTANCE SC ×3 (09:48→18:52)
[2024-07-18] MEDS: TYLENOL 650 MG PO (10:07)
[2024-07-18] MEDS: ULTRAM 50 MG PO ×2 (10:07→23:46)
--- NOTE | 2024-07-18 10:26 | CON.CRS ---
Consultation
-
Date/Time Consultation Requested: 07/18/2024, 02:00
Date/Time Consultation Performed: 07/18/2024, 08:45
Requesting Provider: Pat Arvizu CRNP
Performing Provider: Bello Quiles MD
Reason for Consultation: Recent Barbour's with increasing abscess
Medical History
-
Chief Complaint: Foul smell around drain
History of Present Illness:
58-year-old female with a significant past medical history of acute sigmoid diverticulitis status post explorative laparotomy with Barbour's resection and colostomy on 05/22/2024. She had an extensive hospitalization from 05/20/2024 to 07/01/2024.
During her stay she developed intra-abdominal abscesses and had a right lower quadrant abscess as well as a left upper quadrant splenic hematoma and had IR drains placed in both. She was discharged to a nursing facility on IV antibiotics under the
direction of Dr. Santamaria. I had spoken to the son as he called our office, and she was struggling with the outpatient facility. The son noticed a foul smelling odor around her right lower quadrant JODIE drain when he picked her up after her
pulmonology appointment at [facility]. He had called Dr. Quiles who was on-call yesterday and she was advised to go to the ER. Upon arrival to the ER, her WBC was 8.7. She was tachycardic ranging from 99-113. She was febrile with 101.[address] of the abdomen and pelvis shows stable positioning a left pigtail chest tube with small loculated pleural effusion along the catheter measuring 5.4 x 7.4 cm. There was stable positioning of the right lower quadrant percutaneous drain with
Rosario creased size of gas and fluid collection in the mid abdomen measuring up to 10.2 cm which was previously 8 cm. We have been consulted for further surgical opinion.
Past Medical History
Past Medical History: Cancer (History of breast cancer status post mastectomy and chemotherapy, history of endometrial cancer status post hysterectomy) and Other (Acute sigmoid diverticulitis leading to Barbour's procedure, recurrent pleural
effusion status post thoracentesis, status post chest tube, TIFFANI, hypokalemia, hypertension, hyperlipidemia, diabetes, thrombocytopenia, coarctation of the aorta, obesity, sacral decub)
Past Surgical History: Bowel Resection (Barbour's procedure with colostomy, IR drains in place), Gynecological (Hysterectomy) and Other (Mastectomy)
Social History
Tobacco: Non-Smoker
Alcohol: None
Drug: None
Living: Prison
Family History
Family History: Reviewed & Not Pertinent
Allergies / Home Medications
Allergy/AdvReac Type Severity Reaction Status Date / Time
diphtheria, pertussis, Allergy Unknown Verified 07/17/24 17:52
tetanus vacc
gentamicin Allergy Hearing Verified 07/17/24 17:52
loss
�Medication �Instructions �Recorded �Confirmed �Type
cholecalciferol (vitamin D3) 50 2,000 units PO DAILY Supplement 09/02/20 07/18/24 History
mcg (2,000 unit) tablet
multivitamin with folic acid 400 1 tab PO DAILY Supplement 09/02/20 07/18/24 History
mcg tablet (Tab-A-Sherley)
aspirin 81 mg chewable tablet 81 mg PO DAILY Blood Clot 05/20/24 07/18/24 History
Prevention/Tx
tirzepatide 2.5 mg/0.5 mL 2.5 mg SC WE Diabetes 05/20/24 07/18/24 History
subcutaneous pen injector
(Mounjaro)
Ertapenem [Invanz] 1,000 mg 120 mls/hr IV Q24H Infection 07/01/24 07/18/24 Rx
acetaminophen 325 mg tablet 650 mg (2 x 325 mg) PO Q6HPRN PRN 07/01/24 07/18/24 Rx
mild pain #0 tabs
ferrous sulfate 325 mg (65 mg 325 mg PO DAILY Supplement #0 tabs 07/01/24 07/18/24 Rx
iron) tablet (FeroSul)
gabapentin 100 mg capsule 100 mg PO TID Pain #0 caps 07/01/24 07/18/24 Rx
insulin aspart U-100 100 unit/mL 4 unit (0.04 mL) SC AC Diabetes #0 07/01/24 07/18/24 Rx
(3 mL) subcutaneous pen mL
lidocaine 4 % topical patch 1 patch topical DAILY Pain #0 ea 07/01/24 07/18/24 Rx
simethicone 80 mg chewable tablet 80 mg PO QIDPRN PRN gas pain #0 07/01/24 07/18/24 Rx
tabs
spironolactone 25 mg tablet 25 mg PO DAILY Blood pressure #0 07/01/24 07/18/24 Rx
tabs
amlodipine 5 mg tablet (Norvasc) 5 mg PO DAILY 07/18/24 07/18/24 History
atorvastatin 40 mg tablet (Lipitor) 40 mg PO QPM 07/18/24 07/18/24 History
bisacodyl 10 mg rectal suppository 10 mg VT DAILYPRN PRN if no bm 07/18/24 07/18/24 History
(Dulcolax (bisacodyl)) aftr mom
collagenase clostridium histo. 250 1 applic topical DAILY sacrum 07/18/24 07/18/24 History
unit/gram topical ointment (Santyl)
dapagliflozin propanediol 5 mg 5 mg PO DAILY 07/18/24 07/18/24 History
tablet
losartan 25 mg tablet 75 mg PO BID 07/18/24 07/18/24 History
magnesium hydroxide 400 mg/5 mL 2,400 mg PO DAILYPRN PRN if no bm 07/18/24 07/18/24 History
oral suspension (Milk of Magnesia) by 9 shifts
metoprolol tartrate 100 mg tablet 200 mg PO BID 07/18/24 07/18/24 History
(Lopressor)
sodium phosphates 19 gram-7 118 ml VT DAILYPRN PRN if no bm 07/18/24 07/18/24 History
gram/118 mL enema (Fleet Enema) aftr dulcolcax
therapeutic multivitamin 1 tab PO DAILY 07/18/24 07/18/24 History
tramadol 50 mg tablet 50 mg PO Q6HPRN PRN moderate pains 07/18/24 07/18/24 History
Review of Systems
-
History Source: Patient and Family (Son at bedside)
Abdomen/GI: Other (Purulent odor from abdominal drain)
A 10 point review of systems was completed, and was negative except as per HPI.
Physical Exam
Vital Signs
Temp 99 F 07/18/24 08:49
Pulse 105 07/18/24 08:00
Resp Rate 18 07/18/24 08:00
Blood pressure 149/78 07/18/24 08:00
SaO2 100 07/18/24 08:00
07/17/24 07/18/24 07/19/24
06:59 06:59 06:59
Actual Weight 93.9 kg
Lab Results / Allergies
07/18/24 05:53
07/18/24 05:53
WBC 7.8 10^3/uL (4.8-10.8) 07/18/24 05:53
Hgb 7.8 g/dL (12.0-16.0) L 07/18/24 05:53
Hct 24.7 % (37.0-47.0) L 07/18/24 05:53
Plt Count 227 10^3/uL (130-400) 07/18/24 05:53
Abs Immat Gran (auto) 0.0 10^3/uL (0-0.05) 07/17/24 19:59
Neutrophils % 75.7 % (42.2-75.2) H 07/17/24 19:59
Allergy/AdvReac Type Severity Reaction Status Date / Time
diphtheria, pertussis, Allergy Unknown Verified 07/17/24 17:52
tetanus vacc
gentamicin Allergy Hearing Verified 07/17/24 17:52
loss
Physical Exam
General: Well Developed, Well Nourished and No Apparent Distress
GI: Soft, Non Tender, Non Distended and Other (Colostomy warm and pink with function, right sided JODIE drain with green purulent output and foul odor)
Skin: Warm and Dry
Neuro: AO x 3
Psych: Calm
Data Reviewed
-
CT Scan: Image Personally Visualized and interpreted, Report Reviewed by me, Discussed with Patient and Discussed with Family
Labs: Labs Reviewed by me, Discussed with Physician, Discussed with Patient and Discussed with Family
Old Records: Reviewed
Assessment / Plan
-
Assessment: 60-year-old female with a recent Barbour's resection and colostomy due to perforated sigmoid diverticulitis status post right upper quadrant IR drain into abscess and left chest wall drain due to splenic hematoma, presents to the ER due
to foul-smelling right upper quadrant JODIE drain and found to be tachycardic, febrile, and abscess has increased in size in the midline
Plan:
-Remain n.p.o.
-No plans for urgent surgery at this time
-Consult interventional radiology for drain study and repositioning
-Infectious disease consult for IV antibiotic management
-city manager for dispo placement as son and patient are both unhappy at current nursing facility
-Continue antibiotics
-Discussed above plan with hospitalist and son at bedside
-Will follow
[2024-07-18 11:54] LABS: Glucose - Point of Care 128 mg/dl (70-99)
--- NOTE | 2024-07-18 12:31 | CON.ID ---
Consultation
-
Date/Time Consultation Requested: 07/18/2024 0200
Date/Time Consultation Performed: 07/18/2024 1200
Requesting Provider: YIFAN Locke
Performing Provider: Dr. Santamaria
Reason for Consultation: Abdominal abscess
Chief Complaint / Past History
History of Present Illness
Bella Mendoza is a 58-year-old female being evaluated at the request of Jesika Arvizu regarding abdominal abscess. History is obtained from chart review, along with patient interview, and review of records contained in the hospital EMR system.
The patient is known to me from a prior admission dated 05/20/2024. At that point in time she had complained of abdominal discomfort was found to have acute diverticulitis with a small area of perforation. Ultimately she underwent a Barbour's
procedure. Surgery was complicated by a splenic capsular tear and development of hematoma. Ultimately, she had ongoing leukocytosis, and was found to have an anterior abdominal collection, along with an infected splenic hematoma, both with ESBL E.
coli. She was discharged to a [facility] facility on 07/01 and has been receiving IV antibiotics there. She recently presented to the office for outpatient follow-up, and a prescription was given for a repeat CT scan to follow collection
resolution. Yesterday, she reports that she was out to see her [employer], and developed more purulent drainage from her anterior abdominal drain and she was sent to the emergency room for further workup. Here, repeat imaging was performed
which showed ongoing persistence of the anterior abdominal collection. Infectious Diseases is asked to comment on further antimicrobial management.
At this time, she denies significant abdominal pain. She denies fever, although she was noted to be febrile at presentation. She notes ongoing drainage from her JODIE drains. She denies any dysuria.
Past History
Additional Past Medical History:
HTN
DM
Hx breast CA
Hx endometrial CA
Diverticulitis
Additional Past Surgical History:
Bilateral mastectomy
Hysterectomy
x 2
Allergy History:
diphtheria, pertussis, tetanus vacc Allergy (Verified 07/17/24 17:52)
Unknown
gentamicin Allergy (Verified 07/17/24 17:52)
Hearing loss
Medications Reviewed: Yes
Current Antibiotics:
Zosyn 4.5 g IV every 6 hours
Social History
Tobacco: Non-Smoker
Alcohol: None
Drug: None
Personal: Single
Living: With Family
Employment: Retired
Family History
Family History: Not Pertinent
Review of Systems
Vital Signs
Temp Pulse Resp BP Pulse Ox
99 F 106 27 160/86 97
07/18/24 08:49 07/18/24 10:00 07/18/24 10:00 07/18/24 09:48 07/18/24 10:00
Physical Exam
Physical Exam
Constitutional: Comfortable, Non-toxic and Obese
Eyes: Pupils Equal, Pupils Round, No Conjunctival Hemorrhage and Sclera Anicteric
Oral: No Thrush and No Ulcers
Cardiovascular: Regular Rate and S1/S2; Negative S3/S4
Pulmonary: Clear; Negative Wheezes, Rales or Rhonchi
Gastrointestinal: Soft, Non Distended, Normal Bowel Sounds and Other (Anterior JODIE with seropurulent fluid. Left lateral JODIE with bloody drainage. Ostomy in place.)
Genito-Urinary: Negative Ontiveros
Extremities: Edema; Negative Cyanosis or Erythema
Neurological: Awake and Alert
Psychological: Calm
.
Lab / Diagnostic Study Results
07/18/24 05:53
07/18/24 05:53
Abs Immat Gran (auto) 0.0 10^3/uL (0-0.05) 07/17/24 19:59
Absolute Neuts (auto) 6.6 10^3/uL (1.4-6.5) H 07/17/24 19:59
Absolute Lymphs (auto) 1.2 10^3/uL (1.2-3.4) 07/17/24 19:59
Absolute Monos (auto) 0.8 10^3/uL (0.1-0.6) H 07/17/24 19:59
Absolute Basos (auto) 0.0 10^3/uL (0-0.2) 07/17/24 19:59
Immature Gran % 0.3 % (0-0.5) 07/17/24 19:59
Neutrophils % 75.7 % (42.2-75.2) H 07/17/24 19:59
Lymphocytes % 13.7 % (20.5-51.1) L 07/17/24 19:59
Monocytes % 9.2 % (1.7-9.3) 07/17/24 19:59
Eosinophils % 0.9 % (0-6) 07/17/24 19:59
Basophils % 0.2 % (0-2) 07/17/24 19:59
Lactic Acid 0.7 mmol/L (0.7-2.0) 07/17/24 19:59
Microbiology Results
Micro:
07/17/24 19:28 Wound Culture - Pending
Abscess Gram Stain - Preliminary
07/17/24 20:56 Blood Culture - Pending
Blood/Venous
07/17/24 20:02 Blood Culture - Pending
Blood/Venous
07/17/24 19:28 Urine Culture - Pending
Urine
Imaging:
07/17/2024 CT abdomen/pelvis with contrast: Postoperative changes of a Caridad procedure noted. There is stable appearance of the right lower quadrant percutaneous drain with increased size of the gas and fluid containing collection in the mid
abdomen now measuring up to 10.2 cm whereas previously it was 8 cm. There is wall thickening of the adjacent bowel, likely reactive enteritis. Stable positioning of the left pigtail chest tube with small loculated pleural effusion on the catheter
tip measuring 5.4 x 7.4 cm please see full dictation for additional detail. Film personally viewed.
Assessment / Plan
# Fevers
# Diverticulitis with diverticular perforation
- s/p diverting colostomy (05/22/2024).
- Intra-op splenic capsular tear with subsequent hematoma development
# LUQ infected hematoma
-s/p drain placement (06/14/24) - bloody
- Fluid cx: ESBL E. coli x2
- zosyn (05/19 to 05/31); Ertapenam (05/31 to present)
# Anterior abdominal collection/abscess
- s/p drainage (06/10/24)
- Cultures with Klebsiella pneumoniae and ESBL E. coli
# Asymptomatic bacteriuria
Recommendations:
Continue with ertapenem for the present.
IR has been consulted for drain repositioning and potential upsizing for better source control.
Will repeat fluid cultures once drains have been replaced.
Monitor white count and temperature curve.
Continue with supportive measures.
Care Review
Plan reviewed with: Other Provider (CRS)
--- NOTE | 2024-07-18 12:55 | W.PN.HOSP.TC ---
Today's Communication/Plan
-
see outlined plan
Assessment / Plan
Assessment / Plan
Assessment:
Recent hx of perforated sigmoid diverticulitis s/p Caridad's resection/ostomy creation complicated by splenic capsular tear/hematoma and RLQ fluid collection/anterior abdominal fluid collection with drains. Patient also had septic shock and
bacteroids bacteremia.
Sepsis POA due to fever, tachycardia
- CT on admission showing: Stable positioning of the left upper quadrant pigtail catheter with surrounding collection measuring 5.4 x 7.4 cm (improved from 8.1 x 8.8 cm). stable appearance of the right lower quadrant percutaneous drain with
increased size of the gas and fluid containing collection in the mid abdomen in the abdomen measuring up to 10.2 cm, previously 8 cm. There is wall thickening of the adjacent bowel, likely reactive enteritis.
- CRS/IR/ID consulted
- NPO for IR evaluation for drain study, repositioning possibly vs upsizing vs tPA need
- continue Ertapenem per ID; follow cultures. Previously with ESBL E.coli x2, Klebsiella
- pain control, anti-emetics
Hx of L pleural effusion s/p chest tube with thrombolytics
- CT with small pleural fluid and atelectasis (IS ordered)
Acute on chronic anemia
Hx of RENY
- update iron studies
- follow Hb
Hypokalemia - replete prn
Multidrug-resistant hypertension
- continue Losartan BID, Metoprolol, Aldactone, Nifedipine
Hyperlipidemia
- continue statin
Diabetes
- hemoglobin A1c 7.4 recently
- hold Mounjaro; Jardiance
- continue SSI
- once diet added, will add back Novolog
- previously on Lantus - consider resumption pending sugars
Coarctation of aorta with history of prior aortic stenting
- continue Aspirin
Obesity
Sacral Decub stage 2 POA
- discussed with the patient regarding offloading and also about diet.
History of breast cancer status post mastectomy and chemo
History of endometrial cancer status post hysterectomy
DVT prophylaxis: SC Heparin
Code: Full
Anticipated Discharge: > 48 hours
Subjective/Interval History
-
Date of Service: July 18, 2024
resting comfortably, tearful over lack of progress
Objective Data
-
Labs:
Laboratory Results
07/18/24
05:53
WBC 7.8
Hgb 7.8 L
Hct 24.7 L
Plt Count 227
Sodium 141
Potassium 3.4 L
Chloride 101
Carbon Dioxide 28
BUN 11
Creatinine 0.6
Glucose 104 H
Calcium 8.2 L
Vital Signs:
Vital Signs
Temp Pulse Resp BP Pulse Ox
99 F 106 27 160/86 97
07/18/24 08:49 07/18/24 10:00 07/18/24 10:00 07/18/24 09:48 07/18/24 10:00
I&O
07/17/24 07/18/24 07/19/24
06:59 06:59 06:59
Output Total 750 / 750
Balance -750 / -750
Physical Exam
-
General: No Apparent Distress
HEENT: Normocephalic and Atraumatic
Respiratory: Negative Wheezes
Cardiac: Regular Rhythm and S1/S2
GI: Tender, Distended and Other (RLQ and LUQ drain)
Genito-urinary: No Costovertebral Tender
Musculoskeletal: No Edema
Neuro: AO x 3
Hematologic / Lymphatic: No Lymphadenopathy
Psych: Calm
Data Reviewed
-
Total Time Spent with Patient (in minutes): 45
Labs: Labs Reviewed by me
[2024-07-18] MEDS: DESENEX/MITRAZOL/ZEASORB 1 APPLIC TOPICAL ×2 (14:26→22:17)
[2024-07-18] MEDS: INVANZ 60 MG IV (14:26)
--- NOTE | 2024-07-18 17:15 | PTCARENOTE ---
patient arrived to [facility] via stretcher from IR s/p exchange of right abd JODIE drain. JODIE drain site with dressing c/d/i. drain with purulent, foul smelling milky drainage.denies need for analgesia at this time, able to transfer with assist x1 with
rolling walker from stretcher to bed, vss, oriented to room and use of call mejia, will continue to monitor.
[2024-07-18] MEDS: CRESTOR 30 MG PO (17:56)
--- NOTE | 2024-07-18 18:04 | W.PN.UPDATE ---
Update Note
Progress Note Update
Agree with earlier PA note. I just recently saw the patient in her room.
History, vitals, labs, imaging reviewed. Patient seen and examined.
58 yo F about 2 months s/p urgent Caridad's resection with colostomy for perforated diverticulitis complicated by splenic capsular tear and eventual abdominal abscesses/infected fluid collections. She has been admitted due to
tachycardia,documented fever, and CT showing non-resolution of both (anterior midline and perisplenic) fluid collections despite drains and antibiotics. Anterior midline collection a bit larger also. Patient's son recently noted R sided drain with
malodorous drainage also. On my own evaluation of patient at bedside, the R drain had just been upsized by IR today from 8 to 10 Lao. Drainage car in appearance. L drain with dark old blood look to it. Nontender on exam and vitals now
reasonable. For now, agree with drain upsizing (done today) and antibiotics per ID. Another option that could be considered would be tPA via drains to see if helps resolve these collections. If situation persists, surgical reexploration may need
to be considered.
Thanks.
[2024-07-18 18:52] LABS: Glucose - Point of Care 111 mg/dl (70-99)
[2024-07-18] MEDS: NOVOLOG FLEXPEN 4 UNITS SC (20:51)
[2024-07-18 21:22] LABS: Glucose - Point of Care 146 mg/dl (70-99)
[2024-07-19 06:25] LABS: Hematocrit 23.4 % (37.0-47.0); Hemoglobin 7.4 g/dL (12.0-16.0); Mean Corp Hgb Conc. 31.6 g/dL (33.0-37.0); Mean Corpuscular Hgb 25.3 pg (27.0-31.0); Mean Corpuscular Volume 80.1 fL (81.0-99.0); Mean Platelet Volume 11.2 fL (7.4-10.4); Platelet Count 259 10^3/uL (130-400); Red Blood Cell Count 2.92 10^6/uL (4.20-5.40); Red Cell Dist. Width 16.8 % (11.5-14.5); White Blood Cell Count 5.8 10^3/uL (4.8-10.8)
[2024-07-19 06:55] LABS: Blood Urea Nitrogen 10 mg/dl (7-17); Calcium 8.4 mg/dl (8.4-10.2); Carbon Dioxide 28 mmol/L (22-30); Chloride 104 mmol/L (98-107); Estimated Creatinine Clearance 115 ml/min; Glucose 104 mg/dl (70-99); Iron 29 ug/dl (37-170); Potassium 3.5 mmol/L (3.5-5.1); Sodium 141 mmol/L (135-145); eGFR > 60.00
[2024-07-19 07:05] LABS: Percent Saturation 17 % (20-50); Total Iron Binding Capacity 162 ug/dl (265-497)
[2024-07-19 07:56] VITALS: BP 141/66
[2024-07-19 08:01] LABS: Folate 6.4 ng/ml (2.76-20); Vitamin B12 723 pg/ml (239-931)
[2024-07-19 08:12] LABS: Glucose - Point of Care 120 mg/dl (70-99)
[2024-07-19] MEDS: NOVOLOG FLEXPEN 4 UNITS SC ×3 (09:19→17:26)
[2024-07-19] MEDS: HEPARIN 5000 UNITS SC ×2 (09:19→20:55)
[2024-07-19] MEDS: COZAAR 50 MG PO ×2 (09:19→20:54)
[2024-07-19] MEDS: NEURONTIN 100 MG PO ×3 (09:19→21:24)
[2024-07-19] MEDS: ALDACTONE 25 MG PO (09:19)
[2024-07-19] MEDS: FEOSOL 325 MG PO (09:19)
[2024-07-19] MEDS: NOVOLOG FLEXPEN-LOW RESISTANCE SC ×3 (09:19→17:26)
[2024-07-19] MEDS: LOW STRENGTH ASPIRIN 81 MG PO (09:19)
[2024-07-19] MEDS: PROCARDIA XL (EXTENDED RELEASE) 60 MG PO ×2 (09:23→20:54)
[2024-07-19] MEDS: TYLENOL 650 MG PO ×2 (10:14→21:24)
[2024-07-19] MEDS: LOPRESSOR 100 MG PO ×2 (10:14→20:54)
--- NOTE | 2024-07-19 10:54 | W.PN.CRS1 ---
Today's Communication / Plan
-
Continue IR drain
IV antibiotics
Continue diet
No plans for surgery
Assessment/Plan
-
Assessment: 60-year-old female with a recent Barbour's resection and colostomy due to perforated sigmoid diverticulitis status post right upper quadrant IR drain into abscess and left chest wall drain due to splenic hematoma, presents to the ER due
to foul-smelling right upper quadrant JODIE drain and found to be tachycardic, febrile, and abscess has increased in size in the midline
07/18-IR upsizing of right upper quadrant drain
Plan:
-Continue 1800-calorie diet.
-No plans for urgent surgery at this time.
-Infectious disease IV antibiotic management
-reliability manager for dispo placement
-IV fluids per primary team, not needed from a surgical perspective
-Wound RN for sacral decubitus and colostomy management
Subjective Data
Subjective Data
Date of Service: July 19, 2024
Patient states she is feeling a little bit better today. She is tolerating diet. She has no nausea or vomiting. She does not have any pain.
Objective Data
-
Vital Signs
Temp Pulse Resp BP Pulse Ox
98.3 F 94 16 141/66 96
07/19/24 07:56 07/19/24 07:56 07/19/24 07:56 07/19/24 07:56 07/19/24 07:56
Intake & Output
07/18/24 07/19/24 07/20/24
06:59 06:59 06:59
Intake Total 720 / 720
Output Total 1300 / 1300
Balance -580 / -580
Intake:
IV fluids (Total) 720 / 720
Output:
Drain Output (Total) 150 / 150
Left Upper Abdomen 150 / 150
Right Lower Abdomen 0 / 0
Urine, Voided 1150 / 1150
Other:
How many times incontinent 1
SATURATED amount urine
Lab Results
07/19/24 06:08
07/19/24 06:08
Physical Exam
-
General: No Acute Distress and AOx3
Abdomen: Soft, Non Distended, Non Tender and Other (Colostomy warm and pink with function. Right sided drain with green purulent output. Left chest drain with dark old blood.)
Skin: Warm and Dry
Incision: Clear, Dry, Intact
--- NOTE | 2024-07-19 11:12 | WOUNDNOTE ---
SACRAL COCCYX/BUTTOCKS
--- NOTE | 2024-07-19 11:16 | WOUNDNOTE ---
WO RN note: Patient admitted with sepsis. s/p upsized R IR drain. Patient admitted from SNF rehab. Son in room.
See H&P for complete history.
PMH: Barbour's colostomy 04/2024, bilateral mastectomy, aortic stent, hysterectomy, DM, YUROK R ear.
Wound Location and type/assessment: Patient has stage 3 lower sacral pressure injury with large area of fungal rash around it. Peristomal MASD distally. Stoma pink, flush, oval shaped. Colostomy functioning for loose dark brown stool.
Appetite: on an 1800 calorie diet.
Pressure redistribution devices in place: Versac[employer] air bed. Air chair cushion.
Plan: Colostomy appliance changed with teaching patient and son using Vineet wafer # [id number], Mario seal and Vineet pouch #[id number]. Miconazole powder and no sting barrier wipe applied to distal peristomal skin. Lower sacral silicone border foam
dressing changed. Miconazole powder applied to buttocks/sacral rash. Patient and son interested in closed end pouch. Will put closed end pouch order number in discharge instructions. Nursing can assist with routine pouch changes.
Will confirm orders with Dr. Meade.
Care plan to be updated and will follow peripherally as needed.
Note to case management requested for discharge: [facility] if patient goes home.
Recommend follow up at wound care center upon discharge.
[2024-07-19 12:15] LABS: Glucose - Point of Care 146 mg/dl (70-99)
--- NOTE | 2024-07-19 12:42 | W.PN.ID1 ---
Date of Service
Date of Service: July 19, 2024
Today's Communication
Continue antibiotics.
Assessment / Plan
# Fevers
- Improved
# Diverticulitis with diverticular perforation
- s/p diverting colostomy (05/22/2024).
- Intra-op splenic capsular tear with subsequent hematoma development
# LUQ infected hematoma
-s/p drain placement (06/14/24) - bloody
- Fluid cx: ESBL E. coli x2
- zosyn (05/19 to 05/31); Ertapenam (05/31 to present)
# Anterior abdominal collection/abscess
- s/p drainage (06/10/24)
- prior cultures with Klebsiella pneumoniae and ESBL E. coli
-
# Asymptomatic bacteriuria
Recommendations:
Continue with ertapenem (d#62 of abx) for today, although doubt there is any penetrance of abx into prior noted anterior abdominal collection, (6 cm x 10 cm on most recent imaging). Drain has been upsized and hopefully will diminish size of
collection, but antibiotics will not effectively penetrate more than 1 cm into a collection. May ultimately need more definitive therapy for source control.
Repeat cultures have been obtained.
May ultimately elect to discontinue antibiotics and allow drainage to proceed.
Monitor white count and temperature curve.
Continue with supportive measures.
����������������������������������������������������������
Chief Complaint
-: Other (Abdominal abscess)
Subjective / Review of Systems
Patient seen and examined. Overall, patient feels well. Anterior abdominal collection drainage catheter upsize yesterday. Currently now has gravity bag.
Vital Signs / Physical Exam
Vital Signs
Vital Signs
Temp Pulse Resp BP Pulse Ox
98.3 F 94 16 141/66 96
07/19/24 07:56 07/19/24 07:56 07/19/24 07:56 07/19/24 07:56 07/19/24 07:56
Physical Exam
Constitutional: No Acute Distress, Comfortable and Non-toxic
Eyes: No Conjunctival Hemorrhage and Sclera Anicteric
Cardiovascular: S1/S2; Negative S3/S4
Pulmonary: Clear; Negative Wheezes or Rales
Gastrointestinal: Soft, Non Tender and Other (Anterior drain to gravity bag. Purulence noted in bag.)
Extremities: Negative Edema, Cyanosis or Erythema
Neurological: Awake and Alert
Psychological: Calm
Objective Data
Lab Data
Lab Results
07/19/24 06:08
07/19/24 06:08
Estimated Creat Clear 115 ml/min 07/19/24 06:08
Lactic Acid 0.7 mmol/L (0.7-2.0) 07/17/24 19:59
Total Bilirubin 0.6 mg/dl (0.2-1.3) 07/17/24 19:59
AST 24 U/L (14-36) 07/17/24 19:59
ALT 13 U/L (0-35) 07/17/24 19:59
Alkaline Phosphatase 78 U/L (38-126) 07/17/24 19:59
Most recent labs reviewed.
Micro Results:
07/17/24 19:28 Wound Culture - Preliminary
Abscess Gram Stain - Preliminary
07/18/24 16:30 Wound Culture - Preliminary
Abscess Gram Stain - Preliminary
07/17/24 19:28 Urine Culture - Preliminary
Urine
07/17/24 20:56 Blood Culture - Preliminary
Blood/Venous No Growth in 24 hours- Final report to follow
07/17/24 20:02 Blood Culture - Preliminary
Blood/Venous No Growth in 24 hours- Final report to follow
Imaging:
07/17/2024 CT abdomen/pelvis with contrast: Postoperative changes of a Caridad procedure noted. There is stable appearance of the right lower quadrant percutaneous drain with increased size of the gas and fluid containing collection in the mid
abdomen now measuring up to 10.2 cm whereas previously it was 8 cm. There is wall thickening of the adjacent bowel, likely reactive enteritis. Stable positioning of the left pigtail chest tube with small loculated pleural effusion on the catheter
tip measuring 5.4 x 7.4 cm please see full dictation for additional detail. Film personally viewed.
--- NOTE | 2024-07-19 13:05 | PN.CDI ---
CDI
- -
CDI:
Physician Documentation Request
Admit Date: 07/18/24 01:44
Dear Doctor Halina,
07/17 H&P contains a diagnosis of 'sacral pressure wound stage 3'
WOCN note states 'Patient has stage 3 lower sacral pressure injury with large area of fungal rash around it'
07/18 hospitalist progress note state 'Sacral Decub stage 2 POA'
In an attempt to clarify conflicting documentation, please clarify the stage of the wound:
- Stage 2 - Partial thickness loss of dermis, includes intact or open blister
- Stage 3 - Full thickness tissue not including bone, tendon or muscle
- other
Use of terms such as suspected, likely, concern for, or probable (associated with a specific diagnosis that is being evaluated, monitored, or treated as if it exists) are acceptable and can be coded in the inpatient setting, when documented at the
time of discharge.
Thank you,
Nola Dawson RN, BSN
CDI Specialist
tiger text
Please use your independent medical judgment in providing your response.
*Source: National Pressure Ulcer Advisory Panel (NPUAP)
--- NOTE | 2024-07-19 13:11 | W.PN.HOSP.TC ---
Today's Communication/Plan
-
continue IV Abx
follow ID/CRS
Assessment / Plan
Assessment / Plan
Assessment:
Recent hx of perforated sigmoid diverticulitis s/p Caridad's resection/ostomy creation complicated by splenic capsular tear/hematoma and RLQ fluid collection/anterior abdominal fluid collection with drains. Patient also had septic shock and
bacteroids bacteremia.
Sepsis POA due to fever, tachycardia
- CT on admission showing: Stable positioning of the left upper quadrant pigtail catheter with surrounding collection measuring 5.4 x 7.4 cm (improved from 8.1 x 8.8 cm). stable appearance of the right lower quadrant percutaneous drain with
increased size of the gas and fluid containing collection in the mid abdomen in the abdomen measuring up to 10.2 cm, previously 8 cm. There is wall thickening of the adjacent bowel, likely reactive enteritis.
- CRS/IR/ID consulted
- s/p drain study and upsizing of drain 07/18.
- continue Ertapenem per ID; follow cultures. Previously with ESBL E.coli x2, Klebsiella
- pain control, anti-emetics
Hx of L pleural effusion s/p chest tube with thrombolytics
- CT with small pleural fluid and atelectasis (IS ordered)
Acute on chronic anemia
Hx of RENY
- iron studies c/w chronic inflammation
- follow Hb
Hypokalemia - replete prn
Multidrug-resistant hypertension
- continue Losartan BID, Metoprolol, Aldactone, Nifedipine
Hyperlipidemia
- continue statin
Diabetes
- hemoglobin A1c 7.4 recently
- hold Mounjaro; Jardiance
- continue SSI
- once diet added, will add back Novolog
- previously on Lantus - consider resumption if AM sugars uncontrolled
Coarctation of aorta with history of prior aortic stenting
- continue Aspirin
Obesity
Sacral Decub stage 2 POA
- discussed with the patient regarding offloading and also about diet.
History of breast cancer status post mastectomy and chemo
History of endometrial cancer status post hysterectomy
DVT prophylaxis: SC Heparin
Code: Full
Anticipated Discharge: > 48 hours
Subjective/Interval History
-
Date of Service: July 19, 2024
s/p IR upsizing of the RLQ drain yesterday
reports some drainage around the drain site, and odor
Objective Data
-
Labs:
Laboratory Results
07/19/24
06:08
WBC 5.8
Hgb 7.4 L
Hct 23.4 L
Plt Count 259
Sodium 141
Potassium 3.5
Chloride 104
Carbon Dioxide 28
BUN 10
Creatinine 0.5 L
Glucose 104 H
Calcium 8.4
Vital Signs:
Vital Signs
Temp Pulse Resp BP Pulse Ox
98.3 F 94 16 141/66 96
07/19/24 07:56 07/19/24 07:56 07/19/24 07:56 07/19/24 07:56 07/19/24 07:56
I&O
07/18/24 07/19/24 07/20/24
06:59 06:59 06:59
Intake Total 720 / 720
Output Total 1300 / 1300
Balance -580 / -580
Physical Exam
-
General: No Apparent Distress
HEENT: Normocephalic and Atraumatic
Respiratory: Negative Wheezes
Cardiac: Regular Rhythm and S1/S2
GI: Soft, Nontender and Other (LUQ drain, RLQ drain with pus/odor)
Musculoskeletal: No Edema
Neuro: AO x 3
Hematologic / Lymphatic: No Lymphadenopathy
Psych: Calm
Data Reviewed
-
Total Time Spent with Patient (in minutes): 45
Labs: Labs Reviewed by me
[2024-07-19] MEDS: INVANZ 60 MG IV (13:42)
[2024-07-19] MEDS: DESENEX/MITRAZOL/ZEASORB 1 APPLIC TOPICAL ×2 (13:43→20:56)
[2024-07-19 15:44] VITALS: BP 113/63
[2024-07-19 16:49] LABS: Glucose - Point of Care 133 mg/dl (70-99)
[2024-07-19] MEDS: CRESTOR 30 MG PO (17:26)
[2024-07-19 21:23] LABS: Glucose - Point of Care 134 mg/dl (70-99)
[2024-07-19 23:00] VITALS: BP 151/65
[2024-07-20] MEDS: ULTRAM 50 MG PO (01:09)
[2024-07-20 06:42] LABS: Hematocrit 23.9 % (37.0-47.0); Hemoglobin 7.5 g/dL (12.0-16.0); Mean Corp Hgb Conc. 31.4 g/dL (33.0-37.0); Mean Corpuscular Hgb 24.8 pg (27.0-31.0); Mean Corpuscular Volume 78.9 fL (81.0-99.0); Platelet Count 286 10^3/uL (130-400); Red Blood Cell Count 3.03 10^6/uL (4.20-5.40); Red Cell Dist. Width 16.9 % (11.5-14.5); White Blood Cell Count 5.4 10^3/uL (4.8-10.8)
[2024-07-20 06:50] LABS: Blood Urea Nitrogen 10 mg/dl (7-17); Calcium 8.7 mg/dl (8.4-10.2); Carbon Dioxide 28 mmol/L (22-30); Chloride 104 mmol/L (98-107); Estimated Creatinine Clearance 115 ml/min; Glucose 96 mg/dl (70-99); Potassium 3.5 mmol/L (3.5-5.1); Sodium 141 mmol/L (135-145); eGFR > 60.00
[2024-07-20 07:39] VITALS: BP 119/67
[2024-07-20 07:49] LABS: Glucose - Point of Care 116 mg/dl (70-99)
[2024-07-20] MEDS: HEPARIN 5000 UNITS SC ×2 (08:10→19:45)
[2024-07-20] MEDS: ALDACTONE 25 MG PO (08:10)
[2024-07-20] MEDS: FEOSOL 325 MG PO (08:11)
[2024-07-20] MEDS: LOW STRENGTH ASPIRIN 81 MG PO (08:11)
[2024-07-20] MEDS: LOPRESSOR 100 MG PO ×2 (08:11→19:44)
[2024-07-20] MEDS: NEURONTIN 100 MG PO ×3 (08:11→22:50)
[2024-07-20] MEDS: COZAAR 50 MG PO ×2 (08:11→19:44)
[2024-07-20] MEDS: NOVOLOG FLEXPEN-LOW RESISTANCE SC (08:22)
[2024-07-20] MEDS: DESENEX/MITRAZOL/ZEASORB 1 APPLIC TOPICAL ×2 (09:41→19:46)
[2024-07-20] MEDS: PROCARDIA XL (EXTENDED RELEASE) 60 MG PO ×2 (09:41→19:44)
[2024-07-20] MEDS: NOVOLOG FLEXPEN 4 UNITS SC ×3 (09:41→17:26)
--- NOTE | 2024-07-20 11:48 | W.PN.HOSP.TC ---
Today's Communication/Plan
-
IV abx and drainage
setup home IV Abx; patient prefer home dc to SNF
Assessment / Plan
Assessment / Plan
Assessment:
Recent hx of perforated sigmoid diverticulitis s/p Caridad's resection/ostomy creation complicated by splenic capsular tear/hematoma and RLQ fluid collection/anterior abdominal fluid collection with drains. Patient also had septic shock and
bacteroids bacteremia.
Sepsis POA due to fever, tachycardia
- CT on admission showing: Stable positioning of the left upper quadrant pigtail catheter with surrounding collection measuring 5.4 x 7.4 cm (improved from 8.1 x 8.8 cm). stable appearance of the right lower quadrant percutaneous drain with
increased size of the gas and fluid containing collection in the mid abdomen in the abdomen measuring up to 10.2 cm, previously 8 cm. There is wall thickening of the adjacent bowel, likely reactive enteritis.
- CRS/IR/ID consulted
- s/p drain study and upsizing of drain 07/18.
- continue Ertapenem per ID; follow cultures. Previously with ESBL E.coli x2, Klebsiella. Patient desire home discharge, CM aware for home infusion setup.
- pain control, anti-emetics
Hx of L pleural effusion s/p chest tube with thrombolytics
- CT with small pleural fluid and atelectasis (IS ordered)
Acute on chronic anemia
Hx of RENY
- iron studies c/w chronic inflammation
- follow Hb
Hypokalemia - replete prn
Multidrug-resistant hypertension
- continue Losartan BID, Metoprolol, Aldactone, Nifedipine
Hyperlipidemia
- continue statin
Diabetes
- hemoglobin A1c 7.4 recently
- hold Mounlucinaro; Carriediance
- continue SSI
- continue NovoLog
- previously on Lantus - consider resumption if AM sugars uncontrolled
Coarctation of aorta with history of prior aortic stenting
- continue Aspirin
Obesity
Patient has stage 3 lower sacral pressure injury with large area of fungal rash around it
- discussed with the patient regarding offloading and also about diet.
- wound care following
History of breast cancer status post mastectomy and chemo
History of endometrial cancer status post hysterectomy
DVT prophylaxis: SC Heparin
Code: Full
Anticipated Discharge: > 48 hours
Subjective/Interval History
-
Date of Service: July 20, 2024
denies any new complaints
Objective Data
-
Labs:
Laboratory Results
07/20/24
05:51
WBC 5.4
Hgb 7.5 L
Hct 23.9 L
Plt Count 286
Sodium 141
Potassium 3.5
Chloride 104
Carbon Dioxide 28
BUN 10
Creatinine 0.6
Glucose 96
Calcium 8.7
Vital Signs:
Vital Signs
Temp Pulse Resp BP Pulse Ox
98.9 F 85 16 119/67 95
07/20/24 07:39 07/20/24 07:39 07/20/24 07:39 07/20/24 07:39 07/20/24 07:39
I&O
07/19/24 07/20/24 07/21/24
06:59 06:59 06:59
Intake Total 720 / 720 480 / 480
Output Total 1300 / 1300 125 / 125
Balance -580 / -580 355 / 355
Physical Exam
-
General: No Apparent Distress
HEENT: Normocephalic and Atraumatic
Respiratory: Negative Wheezes
Cardiac: Regular Rhythm and S1/S2
GI: Soft and Other (LUQ and RLQ drains)
Neuro: AO x 3
Hematologic / Lymphatic: No Lymphadenopathy
Psych: Calm
Data Reviewed
-
Total Time Spent with Patient (in minutes): 42
Labs: Labs Reviewed by me
[2024-07-20 12:05] LABS: Glucose - Point of Care 171 mg/dl (70-99)
[2024-07-20] MEDS: NOVOLOG FLEXPEN-LOW RESISTANCE 1 UNITS SC ×2 (14:15→17:26)
[2024-07-20] MEDS: INVANZ 60 MG IV (14:16)
[2024-07-20 15:31] VITALS: BP 122/62
[2024-07-20 15:55] VITALS: BMI 33.4
--- NOTE | 2024-07-20 16:42 | CM ---
Alert awake oriented patient who lives with her son Anshul who lives in a 2 story home with 1 step to enter and 8 to bed bath room.She is independent in driving and in all activities of daily living.PT OT says SNF Pt said [facility].
Motor scooter
Never had [facility]
Pharmacy [facility]
PCP Dr Hughes
PLAN Either SNF VS [facility] (PT says SNF )
[2024-07-20 17:14] LABS: Glucose - Point of Care 173 mg/dl (70-99)
[2024-07-20] MEDS: CRESTOR 30 MG PO (17:26)
[2024-07-20] MEDS: TYLENOL 650 MG PO (19:45)
[2024-07-20 21:09] LABS: Glucose - Point of Care 131 mg/dl (70-99)
[2024-07-20 23:36] VITALS: BP 143/68
[2024-07-21] MEDS: ULTRAM 50 MG PO ×3 (01:26→22:48)
[2024-07-21 07:45] VITALS: BP 150/66
[2024-07-21] MEDS: PROCARDIA XL (EXTENDED RELEASE) 60 MG PO ×2 (08:46→21:19)
[2024-07-21] MEDS: ALDACTONE 25 MG PO (08:47)
[2024-07-21] MEDS: LOW STRENGTH ASPIRIN 81 MG PO (08:47)
[2024-07-21] MEDS: FEOSOL 325 MG PO (08:47)
[2024-07-21] MEDS: LOPRESSOR 100 MG PO ×2 (08:47→21:22)
[2024-07-21] MEDS: NEURONTIN 100 MG PO ×3 (08:47→21:19)
[2024-07-21] MEDS: COZAAR 50 MG PO ×2 (08:47→21:19)
[2024-07-21] MEDS: DESENEX/MITRAZOL/ZEASORB 1 APPLIC TOPICAL ×2 (08:47→21:22)
[2024-07-21] MEDS: HEPARIN 5000 UNITS SC ×2 (08:48→21:19)
[2024-07-21] MEDS: OMNIPAQUE 50 ML PO (09:08)
[2024-07-21 09:11] LABS: Glucose - Point of Care 115 mg/dl (70-99)
[2024-07-21] MEDS: NOVOLOG FLEXPEN-LOW RESISTANCE SC ×2 (09:16→17:59)
[2024-07-21] MEDS: NOVOLOG FLEXPEN 4 UNITS SC ×3 (09:36→17:58)
--- NOTE | 2024-07-21 10:08 | W.PN.HOSP.TC ---
Today's Communication/Plan
-
repeat CT today
continue IV abx and drainage
Assessment / Plan
Assessment / Plan
Assessment:
Recent hx of perforated sigmoid diverticulitis s/p Caridad's resection/ostomy creation complicated by splenic capsular tear/hematoma and RLQ fluid collection/anterior abdominal fluid collection with drains. Patient also had septic shock and
bacteroids bacteremia.
Sepsis POA due to fever, tachycardia
- CT on admission showing: Stable positioning of the left upper quadrant pigtail catheter with surrounding collection measuring 5.4 x 7.4 cm (improved from 8.1 x 8.8 cm). stable appearance of the right lower quadrant percutaneous drain with
increased size of the gas and fluid containing collection in the mid abdomen in the abdomen measuring up to 10.2 cm, previously 8 cm. There is wall thickening of the adjacent bowel, likely reactive enteritis.
- s/p drain study and upsizing of drain 07/18.
- repeat CT pending today
- continue Ertapenem per ID; follow cultures. Previously with ESBL E.coli x2, Klebsiella. Patient desire home discharge, CM aware for home infusion setup.
- pain control, anti-emetics
- CRS/IR/ID consulted
Hx of L pleural effusion s/p chest tube with thrombolytics
- CT with small pleural fluid and atelectasis (IS ordered)
Acute on chronic anemia
Hx of RENY
- iron studies c/w chronic inflammation
- follow Hb
Hypokalemia - replete prn
Multidrug-resistant hypertension
- continue Losartan BID, Metoprolol, Aldactone, Nifedipine
Hyperlipidemia
- continue statin
Diabetes
- hemoglobin A1c 7.4 recently
- hold [place]; Carriediance
- continue SSI
- continue NovoLog
- previously on Lantus - consider resumption if AM sugars uncontrolled
Coarctation of aorta with history of prior aortic stenting
- continue Aspirin
Obesity
Patient has stage 3 lower sacral pressure injury with large area of fungal rash around it
- discussed with the patient regarding offloading and also about diet.
- wound care following
History of breast cancer status post mastectomy and chemo
History of endometrial cancer status post hysterectomy
DVT prophylaxis: SC Heparin
Code: Full
Anticipated Discharge: > 48 hours
Subjective/Interval History
-
Date of Service: July 21, 2024
resting comfortably
drinking contrast for CT today
Objective Data
-
Vital Signs:
Vital Signs
Temp Pulse Resp BP Pulse Ox
98.4 F 92 18 150/66 95
07/21/24 07:45 07/21/24 08:47 07/21/24 07:45 07/21/24 08:47 07/21/24 07:45
I&O
07/20/24 07/21/24 07/22/24
06:59 06:59 06:59
Intake Total 480 / 480 1680 / 1680
Output Total 125 / 125 55 / 55
Balance 355 / 355 1625 / 1625 0 / 0
Physical Exam
-
General: No Apparent Distress
HEENT: Normocephalic and Atraumatic
Respiratory: Negative Wheezes or Rales
Cardiac: Regular Rhythm and S1/S2
GI: Soft and Other (LUQ drain, RLQ drain with pus)
Musculoskeletal: No Edema
Neuro: AO x 3
Hematologic / Lymphatic: No Lymphadenopathy
Psych: Calm
Data Reviewed
-
Total Time Spent with Patient (in minutes): 42
Labs: Labs Reviewed by me
--- NOTE | 2024-07-21 11:17 | W.PN.CRS1 ---
Today's Communication / Plan
-
as below
Assessment/Plan
-
58-year-old female with PMH of DM, HTN, HLD, endometrial cancer s/p hysterectomy, breast cancer s/p mastectomy and chemo, history of perforated diverticulitis s/p Barbour's procedure on 05/24/2024 (prolonged postoperative course secondary to
intra-abdominal collections in LUQ and right mid abdomen s/p IR drainage, pleural effusion s/p chest tube with pleurodesis, discharged on 07/01), who presents to the [place] ED with purulent drainage from around IR drain; found to have fevers, WBC
8.7, CT showing IR drains within collections, but persistent collections in place, suggesting that the IR drainage is not sufficient
S/p upsizing of right�mid abdomen drain to 10 Fr
AFVSS
No labs today
�Persistent intra-abdominal collections; attempted IR drainage with recent upsizing
�Will repeat CTAP today to evaluate size and position of drains
�If collections persist, will discuss with IR regarding upsizing drains even more, possible tPA injection
�Discussed with patient the risk of failure to clear these abscesses with IR, which would necessitate repeat surgery; hopefully, we can avoid surgery at this point still as this would be high risk and there is no guarantee that surgery would clear
the infection
�Continue pain control with Tylenol
� Continue IV ertapenem; appreciate ID
� Continue DVT PPx with subQ heparin
� Recommend PT, OOB/IS
� Appreciate hospitalist
Subjective Data
Subjective Data
Date of Service: July 21, 2024
No overnight events. Tolerating diet. Denies any pain.
Having ostomy output and voiding.
Objective Data
-
Vital Signs
Temp Pulse Resp BP Pulse Ox
98.4 F 92 18 150/66 95
07/21/24 07:45 07/21/24 08:47 07/21/24 07:45 07/21/24 08:47 07/21/24 07:45
Intake & Output
07/20/24 07/21/24 07/22/24
06:59 06:59 06:59
Intake Total 480 / 480 1680 / 1680
Output Total 125 / 125 55 / 55
Balance 355 / 355 1625 / 1625 0 / 0
Intake:
Oral fluids 480 / 480 1680 / 1680
Amount instilled into Drain (
Total)
Right Lower Abdomen
Output:
Drain Output (Total) 125 / 125 55 / 55
Left Upper Abdomen 5 / 5
Right Lower Abdomen 125 / 125 50 / 50
Other:
Number of approximated MODERATE 1 5
amounts of urine
How many times incontinent 1 3
SATURATED amount urine
Number of unmeasured liquid
stools
Colostomy 50
Lab Results
07/20/24 05:51
07/20/24 05:51
Physical Exam
-
General: No Acute Distress and AOx3
HEENT: Grossly Normal
Abdomen: Soft, Non Distended, Non Tender, No Guarding, No Rebound and Other (LUQ drain-0 mL output, red/blackish liquid in bulb; right mid drain-60 mL purulent output; ostomy pink and productive of green stool)
Skin: Warm and Dry
Wound: No Signs of Infection, No Skin Erythema and Other (Midline incision healing well with pink healing scar with some flaking of skin)
[2024-07-21 13:20] LABS: Glucose - Point of Care 154 mg/dl (70-99)
[2024-07-21] MEDS: NOVOLOG FLEXPEN-LOW RESISTANCE 1 UNITS SC (13:32)
[2024-07-21] MEDS: INVANZ 60 MG IV (13:33)
[2024-07-21 15:50] VITALS: BP 133/64
[2024-07-21 17:07] LABS: Glucose - Point of Care 148 mg/dl (70-99)
[2024-07-21] MEDS: CRESTOR 30 MG PO (17:59)
[2024-07-21 21:44] LABS: Glucose - Point of Care 130 mg/dl (70-99)
[2024-07-21 23:00] VITALS: BP 142/75
[2024-07-22 00:01] VITALS: BP 142/75
[2024-07-22] MEDS: TYLENOL 650 MG PO ×2 (05:43→20:34)
[2024-07-22 06:52] LABS: Hematocrit 25.2 % (37.0-47.0); Mean Corp Hgb Conc. 31.7 g/dL (33.0-37.0); Mean Corpuscular Hgb 25.3 pg (27.0-31.0); Mean Corpuscular Volume 79.7 fL (81.0-99.0); Mean Platelet Volume 10.5 fL (7.4-10.4); Platelet Count 301 10^3/uL (130-400); Red Blood Cell Count 3.16 10^6/uL (4.20-5.40); Red Cell Dist. Width 16.7 % (11.5-14.5); White Blood Cell Count 6.2 10^3/uL (4.8-10.8)
[2024-07-22 07:27] LABS: Blood Urea Nitrogen 7 mg/dl (7-17); Calcium 8.7 mg/dl (8.4-10.2); Carbon Dioxide 29 mmol/L (22-30); Chloride 101 mmol/L (98-107); Estimated Creatinine Clearance 115 ml/min; Glucose 98 mg/dl (70-99); Potassium 3.4 mmol/L (3.5-5.1); Sodium 139 mmol/L (135-145); eGFR > 60.00
[2024-07-22 07:50] VITALS: BP 158/75
[2024-07-22 07:51] LABS: Glucose - Point of Care 113 mg/dl (70-99)
--- NOTE | 2024-07-22 08:32 | W.PN.HOSP.TC ---
Today's Communication/Plan
-
see plan
Assessment / Plan
Assessment / Plan
Ms. Bella Mendoza is a 58 yo woman with hx DM, HTN, hx perforated diverticulitis s/p Barbour's procedure 05/24/24 with post-op course c/b left upper quadrant splenic hematoma and RLQ fluid collection s/p IR-guided drainage, finding bacteroides
bacteremia s/p IV antibiotic course, presents with drainage surrounding catheter found to be septic with finding of enlarged intraabdominal collections.
CT A/P 07/21
IMPRESSION:
1. Complex fluid collection within the periumbilical region, located just deep to the umbilicus, measuring 8.6 x 5.5 x 8.7 cm in diameter. Fluid collection is slightly smaller compared to 07/17/2024, however enlarged in size compared to 06/23/2024.
Internal appearance is suggestive of complex thick abscess and/or feculent material.
2. Additional fluid collection within the left upper quadrant in the subdiaphragmatic region, measuring 8.1 x 5.4 x 4.3 cm. Fluid collection is not significantly changed in size compared to most recent prior, and decreased in size compared to
06/23/2024.
3. Each percutaneous drainage catheter appears to be in satisfactory position, however each catheter has not drained the fluid collection.
4. Small left pleural effusion, with mild left basilar subsegmental atelectasis.
Recent hx of perforated sigmoid diverticulitis s/p Caridad's resection/ostomy creation complicated by splenic capsular tear/hematoma and RLQ fluid collection/anterior abdominal fluid collection with drains. Patient also had septic shock and
bacteroids bacteremia.
Sepsis POA due to fever, tachycardia
- CT on admission showing: Stable positioning of the left upper quadrant pigtail catheter with surrounding collection measuring 5.4 x 7.4 cm (improved from 8.1 x 8.8 cm). stable appearance of the right lower quadrant percutaneous drain with
increased size of the gas and fluid containing collection in the mid abdomen in the abdomen measuring up to 10.2 cm, previously 8 cm. There is wall thickening of the adjacent bowel, likely reactive enteritis.
- s/p drain study and upsizing of drain 07/18.
- follow up surgery recs based on repeat imaging on 07/21
- continue Ertapenem per ID; follow cultures. Previously with ESBL E.coli x2, Klebsiella. Patient desire home discharge, CM aware for home infusion setup.
- pain control, anti-emetics
- CRS/IR/ID consulted
Hx of L pleural effusion s/p chest tube with thrombolytics
- CT with small pleural fluid and atelectasis (IS ordered)
Acute on chronic anemia
Hx of RENY
- iron studies c/w chronic inflammation
- follow Hb
Hypokalemia - replete prn
Multidrug-resistant hypertension
- continue Losartan BID, Metoprolol, Aldactone, Nifedipine
Hyperlipidemia
- continue statin
Diabetes
- hemoglobin A1c 7.4 recently
- hold Mounjaro; Jardiance
- continue SSI
- continue NovoLog
- previously on Lantus - consider resumption if AM sugars uncontrolled
Coarctation of aorta with history of prior aortic stenting
- continue Aspirin
Obesity
Patient has stage 3 lower sacral pressure injury with large area of fungal rash around it
- discussed with the patient regarding offloading and also about diet.
- wound care following
History of breast cancer status post mastectomy and chemo
History of endometrial cancer status post hysterectomy
DVT prophylaxis: SC Heparin
Code: Full
Anticipated Discharge: > 48 hours
Subjective/Interval History
-
Date of Service: July 22, 2024
denies pain
discussing plans with surgeon
Objective Data
-
Labs:
Laboratory Results
07/22/24
06:39
WBC 6.2
Hgb 8.0 L
Hct 25.2 L
Plt Count 301
Sodium 139
Potassium 3.4 L
Chloride 101
Carbon Dioxide 29
BUN 7
Creatinine 0.5 L
Glucose 98
Calcium 8.7
Vital Signs:
Vital Signs
Temp Pulse Resp BP Pulse Ox
97.4 F 92 16 158/75 97
07/22/24 07:50 07/22/24 07:50 07/22/24 07:50 07/22/24 07:50 07/22/24 07:50
I&O
07/21/24 07/22/24 07/23/24
06:59 06:59 06:59
Intake Total 1680 / 1680 1290 / 1290
Output Total 55 / 55 685 / 685
Balance 1625 / 1625 605 / 605
Review of Systems
-
History Source: Patient
All other systems: Reviewed and negative
Physical Exam
-
General: No Apparent Distress
HEENT: Normocephalic and Atraumatic
Respiratory: Negative Wheezes or Rales
Cardiac: Regular Rhythm and S1/S2
GI: Soft and Other (LUQ drain, RLQ drain with pus)
Musculoskeletal: No Edema
Neuro: AO x 3
Hematologic / Lymphatic: No Lymphadenopathy
Psych: Calm
Data Reviewed
-
Diagnostic Radiology: Report Reviewed by me
Labs: Labs Reviewed by me
[2024-07-22] MEDS: ALDACTONE 25 MG PO (08:40)
[2024-07-22] MEDS: COZAAR 50 MG PO ×2 (08:41→20:32)
[2024-07-22] MEDS: LOPRESSOR 100 MG PO ×2 (08:41→20:32)
[2024-07-22] MEDS: PROCARDIA XL (EXTENDED RELEASE) 60 MG PO ×2 (08:41→20:33)
[2024-07-22] MEDS: NEURONTIN 100 MG PO ×3 (08:41→20:33)
[2024-07-22] MEDS: FEOSOL 325 MG PO (08:41)
[2024-07-22] MEDS: LOW STRENGTH ASPIRIN 81 MG PO (08:42)
[2024-07-22] MEDS: NOVOLOG FLEXPEN 4 UNITS SC ×3 (08:43→17:06)
[2024-07-22] MEDS: DESENEX/MITRAZOL/ZEASORB 1 APPLIC TOPICAL ×2 (08:43→20:31)
[2024-07-22] MEDS: NOVOLOG FLEXPEN-LOW RESISTANCE SC ×2 (08:43→17:06)
[2024-07-22] MEDS: KCL 20 MEQ PO (08:48)
[2024-07-22] MEDS: HEPARIN SC (09:01)
--- NOTE | 2024-07-22 09:39 | W.PN.CRS1 ---
Today's Communication / Plan
-
As below
Assessment/Plan
-
58-year-old female with PMH of DM, HTN, HLD, endometrial cancer s/p hysterectomy, breast cancer s/p mastectomy and chemo, history of perforated diverticulitis s/p Barbour's procedure on 05/24/2024 (prolonged postoperative course secondary to
intra-abdominal collections in LUQ and right mid abdomen s/p IR drainage, pleural effusion s/p chest tube with pleurodesis, discharged on 07/01), who presents to the [place] ED with purulent drainage from around IR drain; found to have fevers, WBC
8.7, CT showing IR drains within collections, but persistent collections in place, suggesting that the IR drainage is not sufficient
07/18 - upsizing of right�mid abdomen drain to 10 Fr
07/21 - CT shows little improvement of LUQ and R mid abd collections, drains in good location
AFVSS
WBC 6.2, Hb stable, CR 0.5
�Persistent intra-abdominal collections; attempted IR drainage with recent upsizing
�Will discuss with IR regarding upsizing drains even more, possible tPA injection
�Discussed with patient the risk of failure to clear these abscesses with IR, which would necessitate repeat surgery; hopefully, we can avoid surgery at this point still as this would be high risk and there is no guarantee that surgery would clear
the infection
�Continue pain control with Tylenol
� Continue IV ertapenem; appreciate ID
� Continue DVT PPx with subQ heparin
� Recommend PT, OOB/IS
� Appreciate hospitalist
Subjective Data
Subjective Data
Date of Service: July 22, 2024
No overnight events.
Pain controlled.
Denies nausea/vomiting. Tolerating diet.
+ Ostomy function +voiding
Pt is OOB.
Objective Data
-
Vital Signs
Temp Pulse Resp BP Pulse Ox
97.4 F 92 16 158/75 97
07/22/24 07:50 07/22/24 08:40 07/22/24 07:50 07/22/24 08:40 07/22/24 07:50
Intake & Output
07/21/24 07/22/24 07/23/24
06:59 06:59 06:59
Intake Total 1680 / 1680 1290 / 1290
Output Total 55 / 55 685 / 685
Balance 1625 / 1625 605 / 605
Intake:
Oral fluids 1680 / 1680 1280 / 1280
Amount instilled into Drain (
Total)
Right Lower Abdomen
Output:
Liquid stool amount 585 / 585
Colostomy 585 / 585
Drain Output (Total) 55 / 55 100 / 100
Left Upper Abdomen 5 / 5 15 / 15
Right Lower Abdomen 50 / 50 85 / 85
Other:
Number of approximated SMALL 2
amounts of urine
Number of approximated MODERATE 5 2
amounts of urine
How many times incontinent 1
SMALL amount urine
How many times incontinent 2
MODERATE amount urine
How many times incontinent 3
SATURATED amount urine
Number of unmeasured liquid
stools
Colostomy 50
Lab Results
07/22/24 06:39
07/22/24 06:39
Physical Exam
-
General: No Acute Distress and AOx3
HEENT: Grossly Normal
Abdomen: Soft, Non Distended, Non Tender, No Guarding, No Rebound and Other (Ostomy pink and productive of hard stool; LUQ drain-15 mL dark/blackish liquid output, right drain-85 mL purulent)
Skin: Warm and Dry
Wound: No Signs of Infection, Dressing in Place and No Skin Erythema
[2024-07-22] MEDS: COLACE 100 MG PO ×2 (10:47→20:32)
[2024-07-22] MEDS: ULTRAM 50 MG PO ×2 (11:02→19:01)
[2024-07-22 12:52] LABS: Glucose - Point of Care 190 mg/dl (70-99)
--- NOTE | 2024-07-22 13:22 | W.PN.ID1 ---
Date of Service
Date of Service: July 22, 2024
Today's Communication
Continue antibiotics for today. Follow drain output.
Assessment / Plan
# Fevers
- Improved
# Diverticulitis with diverticular perforation
- s/p diverting colostomy (05/22/2024).
- Intra-op splenic capsular tear with subsequent hematoma development
# LUQ infected hematoma
-s/p drain placement (06/14/24) - bloody
- Fluid cx: ESBL E. coli x2
- zosyn (05/19 to 05/31); Ertapenam (05/31 to present)
# Anterior abdominal collection/abscess
- s/p drainage (06/10/24)
- prior cultures with Klebsiella pneumoniae and ESBL E. coli
-
# Asymptomatic bacteriuria
Recommendations:
Continue with ertapenem (d#62 of abx) for today, although doubt there is any penetrance of abx into prior noted anterior abdominal collection, (6 cm x 10 cm on most recent imaging).
Abscess cultures noted, with growth of staph epi, strep species x 2. Growth of these organisms would suggest no penetration into the abscess.
Drain has been upsized and hopefully will diminish size of collection, but antibiotics will not effectively penetrate more than 1 cm into a collection. May ultimately need more definitive therapy for source control.
Monitor white count and temperature curve.
Continue with supportive measures.
����������������������������������������������������������
Chief Complaint
-: Other (Abdominal abscess)
Subjective / Review of Systems
Review of Systems: No Fever and No Chills
Vital Signs / Physical Exam
Vital Signs
Vital Signs
Temp Pulse Resp BP Pulse Ox
97.4 F 92 16 158/75 97
07/22/24 07:50 07/22/24 08:40 07/22/24 07:50 07/22/24 08:40 07/22/24 07:50
Physical Exam
Constitutional: No Acute Distress, Comfortable and Non-toxic
Eyes: No Conjunctival Hemorrhage and Sclera Anicteric
Cardiovascular: S1/S2; Negative S3/S4
Pulmonary: Clear; Negative Wheezes or Rales
Gastrointestinal: Soft, Non Tender and Other (Anterior drain to gravity bag. Marked purulence noted in bag.)
Extremities: Negative Edema, Cyanosis or Erythema
Neurological: Awake and Alert
Psychological: Calm
Objective Data
Lab Data
Lab Results
07/22/24 06:39
07/22/24 06:39
Estimated Creat Clear 115 ml/min 07/22/24 06:39
Lactic Acid 0.7 mmol/L (0.7-2.0) 07/17/24 19:59
Total Bilirubin 0.6 mg/dl (0.2-1.3) 07/17/24 19:59
AST 24 U/L (14-36) 07/17/24 19:59
ALT 13 U/L (0-35) 07/17/24 19:59
Alkaline Phosphatase 78 U/L (38-126) 07/17/24 19:59
Most recent labs reviewed.
Micro Results:
07/17/24 19:28 Wound Culture - Preliminary
Abscess Staphylococcus epidermidis
Streptococcus anginosus
Streptococcus species
Gram Stain - Preliminary
07/17/24 19:28 Urine Culture - Final
Urine Enterococcus durans
Yeast
07/17/24 20:56 Blood Culture - Preliminary
Blood/Venous No Growth in 4 days- Final report to follow
07/17/24 20:02 Blood Culture - Preliminary
Blood/Venous No Growth in 4 days- Final report to follow
07/18/24 16:30 Wound Culture - Final
Abscess Gram Stain - Final
07/18/24 Unknown MRSA Screen - Final
Nose No Methicillin Resistant Staphylococcus aureus isolated.
Imaging:
07/17/2024 CT abdomen/pelvis with contrast: Postoperative changes of a Caridad procedure noted. There is stable appearance of the right lower quadrant percutaneous drain with increased size of the gas and fluid containing collection in the mid
abdomen now measuring up to 10.2 cm whereas previously it was 8 cm. There is wall thickening of the adjacent bowel, likely reactive enteritis. Stable positioning of the left pigtail chest tube with small loculated pleural effusion on the catheter
tip measuring 5.4 x 7.4 cm please see full dictation for additional detail. Film personally viewed.
[2024-07-22] MEDS: NOVOLOG FLEXPEN-LOW RESISTANCE 1 UNITS SC (13:34)
[2024-07-22] MEDS: FLUSH (NSS) 2 FLUSH IV (13:35)
[2024-07-22] MEDS: INVANZ 60 MG IV (13:35)
[2024-07-22 15:20] VITALS: BP 136/83; BP_SYST 77
[2024-07-22 15:24] VITALS: BP 126/76
[2024-07-22 16:24] VITALS: BP 152/72
[2024-07-22 16:59] LABS: Glucose - Point of Care 112 mg/dl (70-99)
[2024-07-22] MEDS: CRESTOR 30 MG PO (17:07)
[2024-07-22] MEDS: LOVENOX 40 MG SC (17:07)
[2024-07-22 22:45] LABS: Glucose - Point of Care 128 mg/dl (70-99)
[2024-07-22 23:05] VITALS: BP 121/61
[2024-07-23] MEDS: ULTRAM 50 MG PO ×2 (01:51→09:23)
--- NOTE | 2024-07-23 02:30 | PTCARENOTE ---
Pt c/o itchiness in vaginal area. Area red, swollen, and displayed small amounts of white discharge. [employer] made aware, new order provided, see MAR. Will continue to monitor.
[2024-07-23] MEDS: MONISTAT 7 VAGINAL CREAM 1 APPLIC VAG (02:41)
[2024-07-23] MEDS: TYLENOL 650 MG PO ×3 (02:43→21:54)
[2024-07-23 05:08] LABS: Hematocrit 25.9 % (37.0-47.0); Hemoglobin 8.2 g/dL (12.0-16.0); Mean Corp Hgb Conc. 31.7 g/dL (33.0-37.0); Mean Corpuscular Hgb 26.3 pg (27.0-31.0); Platelet Count 303 10^3/uL (130-400); Red Blood Cell Count 3.12 10^6/uL (4.20-5.40); Red Cell Dist. Width 17.2 % (11.5-14.5); White Blood Cell Count 6.9 10^3/uL (4.8-10.8)
[2024-07-23 05:38] LABS: Blood Urea Nitrogen 14 mg/dl (7-17); Calcium 8.8 mg/dl (8.4-10.2); Carbon Dioxide 29 mmol/L (22-30); Chloride 101 mmol/L (98-107); Estimated Creatinine Clearance 115 ml/min; Glucose 118 mg/dl (70-99); Potassium 3.9 mmol/L (3.5-5.1); Sodium 140 mmol/L (135-145); eGFR > 60.00
[2024-07-23 07:42] LABS: Glucose - Point of Care 104 mg/dl (70-99)
[2024-07-23] MEDS: NOVOLOG FLEXPEN-LOW RESISTANCE SC (07:47)
[2024-07-23] MEDS: LOPRESSOR 100 MG PO ×2 (07:48→19:26)
[2024-07-23] MEDS: NEURONTIN 100 MG PO ×3 (07:48→21:55)
[2024-07-23] MEDS: COLACE 100 MG PO ×2 (07:48→19:25)
[2024-07-23] MEDS: LOW STRENGTH ASPIRIN 81 MG PO (07:48)
[2024-07-23] MEDS: ALDACTONE 25 MG PO (07:48)
[2024-07-23] MEDS: PROCARDIA XL (EXTENDED RELEASE) 60 MG PO ×2 (07:48→19:24)
[2024-07-23] MEDS: COZAAR 50 MG PO ×2 (07:48→19:25)
[2024-07-23] MEDS: FEOSOL 325 MG PO (07:48)
[2024-07-23] MEDS: NOVOLOG FLEXPEN 4 UNITS SC ×3 (07:49→17:20)
[2024-07-23 07:50] VITALS: BP 144/66
[2024-07-23] MEDS: DESENEX/MITRAZOL/ZEASORB 1 APPLIC TOPICAL ×2 (07:53→19:26)
--- NOTE | 2024-07-23 08:38 | W.PN.CRS1 ---
Today's Communication / Plan
-
As below
Assessment/Plan
-
58-year-old female with PMH of DM, HTN, HLD, endometrial cancer s/p hysterectomy, breast cancer s/p mastectomy and chemo, history of perforated diverticulitis s/p Barbour's procedure on 05/24/2024 (prolonged postoperative course secondary to
intra-abdominal collections in LUQ and right mid abdomen s/p IR drainage, pleural effusion s/p chest tube with pleurodesis, discharged on 07/01), who presents to the [place] ED with purulent drainage from around IR drain; found to have fevers, WBC
8.7, CT showing IR drains within collections, but persistent collections in place, suggesting that the IR drainage is not sufficient
07/18 - upsizing of right�mid abdomen drain to 10 Fr
07/21 - CT shows little improvement of LUQ and R mid abd collections, drains in good location
07/22 -upsizing of LUQ drain to 14 Fr with 35 mL dark hemorrhagic fluid out, right mid drain to 16 Fr with 50 mL purulent fluid out
AFVSS
WBC 6.2, Hb stable, CR 0.5
�Persistent intra-abdominal collections; attempted IR drainage with recent upsizing
�S/p drain upsizing; twice daily flushes
�Likely will repeat CT in 2 to 3 days to see if any improvement in collection size; if no improvement, tPA remains an option, surgery last resort
�Continue pain control with Tylenol and tramadol as needed
� Continue IV ertapenem; appreciate ID
� Continue DVT PPx with subQ heparin
� Recommend PT, OOB/IS
� Appreciate hospitalist
Subjective Data
Subjective Data
Date of Service: July 23, 2024
No overnight events. Both IR drains were upsized yesterday.
Tolerating a diet with ostomy function. Having pain near new drain sites, controlled with pain medicine.
Objective Data
-
Vital Signs
Temp Pulse Resp BP Pulse Ox
98.4 F 86 16 144/66 98
07/23/24 07:50 07/23/24 07:50 07/23/24 07:50 07/23/24 07:50 07/23/24 07:50
Intake & Output
07/22/24 07/23/24 07/24/24
06:59 06:59 06:59
Intake Total 1290 / 1290 1220 / 1220
Output Total 685 / 685 445 / 445
Balance 605 / 605 775 / 775
Intake:
Oral fluids 1280 / 1280 1200 / 1200
Amount instilled into Drain (
Total)
Left Upper Abdomen
Right Lower Abdomen
Output:
Liquid stool amount 585 / 585 5 / 5
Colostomy 585 / 585 5 / 5
Drain Output (Total) 100 / 100 140 / 140
Left Upper Abdomen 15 / 15 45 / 45
Right Lower Abdomen 85 / 85 95 / 95
Urine, Voided 300 / 300
Other:
Number of approximated SMALL 2
amounts of urine
Number of approximated MODERATE 2 2
amounts of urine
Number of approximated LARGE 2
amounts of urine
How many times incontinent 1 1
SMALL amount urine
How many times incontinent 2
MODERATE amount urine
Lab Results
07/23/24 04:56
07/23/24 04:56
Physical Exam
-
General: No Acute Distress and AOx3
HEENT: Grossly Normal
Abdomen: Soft, Non Distended, Tender (Appropriately tender near drain sites), No Guarding, No Rebound and Other (Ostomy pink, flat, productive of solid stool; LUQ JODIE-45 mL serosanguineous, right mid-95 mL car/purulent)
Skin: Warm and Dry
Wound: No Signs of Infection and No Skin Erythema
--- NOTE | 2024-07-23 09:07 | W.PN.HOSP.TC ---
Today's Communication/Plan
-
see plan
Assessment / Plan
Assessment / Plan
Ms. Bella Mendoza is a 58 yo woman with hx DM, HTN, hx perforated diverticulitis s/p Barbour's procedure 05/24/24 with post-op course c/b left upper quadrant splenic hematoma and RLQ fluid collection s/p IR-guided drainage, finding bacteroides
bacteremia s/p IV antibiotic course, presents with drainage surrounding catheter found to be septic with finding of enlarged intraabdominal collections.
CT A/P 07/21
IMPRESSION:
1. Complex fluid collection within the periumbilical region, located just deep to the umbilicus, measuring 8.6 x 5.5 x 8.7 cm in diameter. Fluid collection is slightly smaller compared to 07/17/2024, however enlarged in size compared to 06/23/2024.
Internal appearance is suggestive of complex thick abscess and/or feculent material.
2. Additional fluid collection within the left upper quadrant in the subdiaphragmatic region, measuring 8.1 x 5.4 x 4.3 cm. Fluid collection is not significantly changed in size compared to most recent prior, and decreased in size compared to
06/23/2024.
3. Each percutaneous drainage catheter appears to be in satisfactory position, however each catheter has not drained the fluid collection.
4. Small left pleural effusion, with mild left basilar subsegmental atelectasis.
Recent hx of perforated sigmoid diverticulitis s/p Caridad's resection/ostomy creation complicated by splenic capsular tear/hematoma and RLQ fluid collection/anterior abdominal fluid collection with drains. Patient also had septic shock and
bacteroids bacteremia.
Sepsis POA due to fever, tachycardia
- CT on admission showing: Stable positioning of the left upper quadrant pigtail catheter with surrounding collection measuring 5.4 x 7.4 cm (improved from 8.1 x 8.8 cm). stable appearance of the right lower quadrant percutaneous drain with
increased size of the gas and fluid containing collection in the mid abdomen in the abdomen measuring up to 10.2 cm, previously 8 cm. There is wall thickening of the adjacent bowel, likely reactive enteritis.
- CRS/IR/ID consults appreciated
- s/p drain study and upsizing of drain 07/18.
- s/p repeat CT 07/21 and upsizing drain 07/22
- plan is to repeat CT in 2-3 days to monitor collections
- IV Ertapenem
- pain control, anti-emetics
Hx of L pleural effusion s/p chest tube with thrombolytics
- CT with small pleural fluid and atelectasis (IS ordered)
Acute on chronic anemia
Hx of RENY
- iron studies c/w chronic inflammation
- follow Hb
Hypokalemia - replete prn
Multidrug-resistant hypertension
- continue Losartan BID, Metoprolol, Aldactone, Nifedipine
Hyperlipidemia
- continue statin
Diabetes
- hemoglobin A1c 7.4 recently
- hold Mounjaro; Jardiance
- continue SSI
- continue NovoLog
- previously on Lantus - consider resumption if AM sugars uncontrolled
Coarctation of aorta with history of prior aortic stenting
- continue Aspirin
Obesity
Patient has stage 3 lower sacral pressure injury with large area of fungal rash around it
- discussed with the patient regarding offloading and also about diet.
- wound care following
History of breast cancer status post mastectomy and chemo
History of endometrial cancer status post hysterectomy
DVT prophylaxis: SC Heparin
Code: Full
Anticipated Discharge: > 48 hours
Subjective/Interval History
-
Date of Service: July 23, 2024
pain at drain incision points controlled by medications
states getting out of bed to chair
Objective Data
-
Labs:
Laboratory Results
07/23/24
04:56
WBC 6.9
Hgb 8.2 L
Hct 25.9 L
Plt Count 303
Sodium 140
Potassium 3.9
Chloride 101
Carbon Dioxide 29
BUN 14
Creatinine 0.6
Glucose 118 H
Calcium 8.8
Vital Signs:
Vital Signs
Temp Pulse Resp BP Pulse Ox
98.4 F 86 16 144/66 98
07/23/24 07:50 07/23/24 07:50 07/23/24 07:50 07/23/24 07:50 07/23/24 07:50
I&O
07/22/24 07/23/24 07/24/24
06:59 06:59 06:59
Intake Total 1290 / 1290 1220 / 1220
Output Total 685 / 685 445 / 445
Balance 605 / 605 775 / 775
Review of Systems
-
History Source: Patient
All other systems: Reviewed and negative
Physical Exam
-
General: No Apparent Distress
HEENT: Normocephalic and Atraumatic
Respiratory: Negative Wheezes or Rales
Cardiac: Regular Rhythm and S1/S2
GI: Soft and Other (LUQ drain, RLQ drain with serosanguinous output )
Musculoskeletal: No Edema
Neuro: AO x 3
Hematologic / Lymphatic: No Lymphadenopathy
Psych: Calm
Data Reviewed
-
Diagnostic Radiology: Report Reviewed by me
Labs: Labs Reviewed by me
--- NOTE | 2024-07-23 11:07 | WOUNDNOTE ---
KETURAH RN NOTE: Followed up with nurse Cosme regarding ostomy care, nurse states pouch changed on 07/20 and is not currently leaking. Asked nurse to change appliance if she has time today, supplies at bedside. Can follow tomorrow if unable to do today.
[2024-07-23 11:34] LABS: Glucose - Point of Care 152 mg/dl (70-99)
[2024-07-23] MEDS: NOVOLOG FLEXPEN-LOW RESISTANCE 1 UNITS SC ×2 (12:34→17:20)
[2024-07-23] MEDS: INVANZ 60 MG IV (14:00)
[2024-07-23 15:00] VITALS: BP 138/62
[2024-07-23] MEDS: LOVENOX 40 MG SC (17:19)
[2024-07-23] MEDS: CRESTOR 30 MG PO (17:19)
[2024-07-23 17:20] LABS: Glucose - Point of Care 153 mg/dl (70-99)
[2024-07-23 21:43] LABS: Glucose - Point of Care 110 mg/dl (70-99)
[2024-07-23 23:55] VITALS: BP 146/70
[2024-07-24] MEDS: ULTRAM 50 MG PO ×2 (00:12→23:24)
[2024-07-24] MEDS: MONISTAT 7 VAGINAL CREAM VAG (00:42)
[2024-07-24] MEDS: TYLENOL 650 MG PO ×2 (03:59→17:27)
[2024-07-24 05:38] LABS: Hematocrit 27.5 % (37.0-47.0); Hemoglobin 8.7 g/dL (12.0-16.0); Mean Corp Hgb Conc. 31.6 g/dL (33.0-37.0); Mean Corpuscular Hgb 26.3 pg (27.0-31.0); Mean Corpuscular Volume 83.1 fL (81.0-99.0); Platelet Count 312 10^3/uL (130-400); Red Blood Cell Count 3.31 10^6/uL (4.20-5.40); Red Cell Dist. Width 17.4 % (11.5-14.5); White Blood Cell Count 6.6 10^3/uL (4.8-10.8)
[2024-07-24 06:03] LABS: Blood Urea Nitrogen 15 mg/dl (7-17); Calcium 8.7 mg/dl (8.4-10.2); Carbon Dioxide 27 mmol/L (22-30); Chloride 102 mmol/L (98-107); Estimated Creatinine Clearance 115 ml/min; Glucose 129 mg/dl (70-99); Potassium 3.8 mmol/L (3.5-5.1); Sodium 142 mmol/L (135-145); eGFR > 60.00
[2024-07-24 07:00] VITALS: BP 134/89
[2024-07-24] MEDS: ALDACTONE 25 MG PO (07:36)
[2024-07-24] MEDS: DESENEX/MITRAZOL/ZEASORB 1 APPLIC TOPICAL ×2 (07:36→21:01)
[2024-07-24] MEDS: LOPRESSOR 100 MG PO ×2 (07:36→20:59)
[2024-07-24] MEDS: NOVOLOG FLEXPEN 4 UNITS SC ×3 (07:36→17:36)
[2024-07-24] MEDS: COLACE 100 MG PO ×2 (07:36→20:59)
[2024-07-24] MEDS: NEURONTIN 100 MG PO ×3 (07:36→20:59)
[2024-07-24] MEDS: COZAAR 50 MG PO ×2 (07:36→21:00)
[2024-07-24] MEDS: PROCARDIA XL (EXTENDED RELEASE) 60 MG PO ×2 (07:36→20:59)
[2024-07-24] MEDS: LOW STRENGTH ASPIRIN 81 MG PO (07:36)
[2024-07-24] MEDS: FEOSOL 325 MG PO (07:36)
[2024-07-24 08:06] LABS: Glucose - Point of Care 116 mg/dl (70-99)
[2024-07-24] MEDS: NOVOLOG FLEXPEN-LOW RESISTANCE SC ×2 (08:33→17:36)
--- NOTE | 2024-07-24 09:38 | W.PN.CRS1 ---
Today's Communication / Plan
-
continue to monitor drain output
Assessment/Plan
-
58-year-old female with PMH of DM, HTN, HLD, endometrial cancer s/p hysterectomy, breast cancer s/p mastectomy and chemo, history of perforated diverticulitis s/p Barbour's procedure on 05/24/2024 (prolonged postoperative course secondary to
intra-abdominal collections in LUQ and right mid abdomen s/p IR drainage, pleural effusion s/p chest tube with pleurodesis, discharged on 07/01), who presents to the [place] ED with purulent drainage from around IR drain; found to have fevers, WBC
8.7, CT showing IR drains within collections, but persistent collections in place, suggesting that the IR drainage is not sufficient
07/18 - upsizing of right�mid abdomen drain to 10 Fr
07/21 - CT shows little improvement of LUQ and R mid abd collections, drains in good location
07/22 -upsizing of LUQ drain to 14 Fr with 35 mL dark hemorrhagic fluid out, right mid drain to 16 Fr with 50 mL purulent fluid out
AFVSS
WBC 6.2, Hb stable, CR 0.5
�Persistent intra-abdominal collections; attempted IR drainage with recent upsizing
�S/p drain upsizing; twice daily flushes
�Likely will repeat CT in 2 to 3 days to see if any improvement in collection size; if no improvement, tPA remains an option, surgery last resort. Monitor output for now.
�Continue pain control with Tylenol and tramadol as needed
� Continue IV ertapenem; appreciate ID
� Continue DVT PPx with subQ heparin
� Recommend PT, OOB/IS
� Appreciate hospitalist
Subjective Data
Subjective Data
Date of Service: July 24, 2024
Patient states she feels well today. She has no nausea or vomiting. She is tolerating a diet. Her main complaint is that her LUQ is sore.
Objective Data
-
Vital Signs
Temp Pulse Resp BP Pulse Ox
98.2 F 105 16 134/89 96
07/24/24 07:00 07/24/24 07:00 07/24/24 07:00 07/24/24 07:00 07/24/24 07:00
Intake & Output
07/23/24 07/24/24 07/25/24
06:59 06:59 06:59
Intake Total 1220 / 1220 1140 / 1140
Output Total 445 / 445 65 / 65
Balance 775 / 775 1075 / 1075
Intake:
Oral fluids 1200 / 1200 120 / 120
IV fluids (Total) 1020 / 1020
IV piggybacks 0 / 0
Amount instilled into Drain (
Total)
Left Upper Abdomen 10 / 10
Right Lower Abdomen 10 / 10
Output:
Liquid stool amount 5 / 5
Colostomy 5 / 5
Drain Output (Total) 140 / 140 65 / 65
Left Upper Abdomen 45 / 45 30 / 30
Right Lower Abdomen 95 / 95 35 / 35
Urine, Voided 300 / 300
Other:
Number of approximated MODERATE 2 4
amounts of urine
Number of approximated LARGE 2
amounts of urine
How many times incontinent 1
SMALL amount urine
How many times incontinent 1
MODERATE amount urine
How many times incontinent 9
SATURATED amount urine
Lab Results
07/24/24 04:47
07/24/24 04:47
Physical Exam
-
General: No Acute Distress and AOx3
Abdomen: Soft, Non Distended, Non Tender and Other (LUQ drain with blood, RLQ with green/car pus)
Skin: Warm
--- NOTE | 2024-07-24 09:44 | W.PN.HOSP.TC ---
Today's Communication/Plan
-
see plan
Assessment / Plan
Assessment / Plan
Ms. Bella Mendoza is a 58 yo woman with hx DM, HTN, hx perforated diverticulitis s/p Barbour's procedure 05/24/24 with post-op course c/b left upper quadrant splenic hematoma and RLQ fluid collection s/p IR-guided drainage, finding bacteroides
bacteremia s/p IV antibiotic course, presents with drainage surrounding catheter found to be septic with finding of enlarged intraabdominal collections.
CT A/P 07/21
IMPRESSION:
1. Complex fluid collection within the periumbilical region, located just deep to the umbilicus, measuring 8.6 x 5.5 x 8.7 cm in diameter. Fluid collection is slightly smaller compared to 07/17/2024, however enlarged in size compared to 06/23/2024.
Internal appearance is suggestive of complex thick abscess and/or feculent material.
2. Additional fluid collection within the left upper quadrant in the subdiaphragmatic region, measuring 8.1 x 5.4 x 4.3 cm. Fluid collection is not significantly changed in size compared to most recent prior, and decreased in size compared to
06/23/2024.
3. Each percutaneous drainage catheter appears to be in satisfactory position, however each catheter has not drained the fluid collection.
4. Small left pleural effusion, with mild left basilar subsegmental atelectasis.
Recent hx of perforated sigmoid diverticulitis s/p Caridad's resection/ostomy creation complicated by splenic capsular tear/hematoma and RLQ fluid collection/anterior abdominal fluid collection with drains. Patient also had septic shock and
bacteroids bacteremia.
Sepsis POA due to fever, tachycardia
- CT on admission showing: Stable positioning of the left upper quadrant pigtail catheter with surrounding collection measuring 5.4 x 7.4 cm (improved from 8.1 x 8.8 cm). stable appearance of the right lower quadrant percutaneous drain with
increased size of the gas and fluid containing collection in the mid abdomen in the abdomen measuring up to 10.2 cm, previously 8 cm. There is wall thickening of the adjacent bowel, likely reactive enteritis.
- CRS/IR/ID consults appreciated
- s/p drain study and upsizing of drain 07/18.
- s/p repeat CT 07/21 and upsizing drain 07/22
- plan is to repeat CT in 1-2 more days to monitor collections
- IV Ertapenem
- pain control, anti-emetics
Hx of L pleural effusion s/p chest tube with thrombolytics
- CT with small pleural fluid and atelectasis (IS ordered)
Acute on chronic anemia
Hx of RENY
- iron studies c/w chronic inflammation
- follow Hb
Hypokalemia - replete prn
Multidrug-resistant hypertension
- continue Losartan BID, Metoprolol, Aldactone, Nifedipine
Hyperlipidemia
- continue statin
Diabetes
- hemoglobin A1c 7.4 recently
- hold Mounjaro; Jardiance
- continue SSI
- continue NovoLog
- previously on Lantus - consider resumption if AM sugars uncontrolled
Coarctation of aorta with history of prior aortic stenting
- continue Aspirin
Obesity
Patient has stage 3 lower sacral pressure injury with large area of fungal rash around it
- discussed with the patient regarding offloading and also about diet.
- wound care following
History of breast cancer status post mastectomy and chemo
History of endometrial cancer status post hysterectomy
DVT prophylaxis: SC Heparin
Code: Full
Anticipated Discharge: > 48 hours
Subjective/Interval History
-
Date of Service: July 24, 2024
pain controlled
no new complaints
Objective Data
-
Labs:
Laboratory Results
07/24/24
04:47
WBC 6.6
Hgb 8.7 L
Hct 27.5 L
Plt Count 312
Sodium 142
Potassium 3.8
Chloride 102
Carbon Dioxide 27
BUN 15
Creatinine 0.6
Glucose 129 H
Calcium 8.7
Vital Signs:
Vital Signs
Temp Pulse Resp BP Pulse Ox
98.2 F 105 16 134/89 96
07/24/24 07:00 07/24/24 07:00 07/24/24 07:00 07/24/24 07:00 07/24/24 07:00
I&O
07/23/24 07/24/24 07/25/24
06:59 06:59 06:59
Intake Total 1220 / 1220 1140 / 1140
Output Total 445 / 445 65 / 65
Balance 775 / 775 1075 / 1075
Review of Systems
-
History Source: Patient
All other systems: Reviewed and negative
Physical Exam
-
General: No Apparent Distress
HEENT: Normocephalic and Atraumatic
Respiratory: Negative Wheezes or Rales
Cardiac: Regular Rhythm and S1/S2
GI: Soft and Other (LUQ drain, RLQ drain with serosanguinous output )
Musculoskeletal: No Edema
Neuro: AO x 3
Hematologic / Lymphatic: No Lymphadenopathy
Psych: Calm
Data Reviewed
-
Diagnostic Radiology: Report Reviewed by me
Labs: Labs Reviewed by me
--- NOTE | 2024-07-24 10:45 | WOUNDNOTE ---
WON RN NOTE: Followed up today along with nurse Dom who did wound care. Gluteal cleft wound appears smaller, periwound fungal rash appears worse. Patient getting up to use the commode with assist. Will discontinue fungal powder to periwound and
order Nizoral cream 2% for buttocks and surrounding ulcer bid. Heels intact. Appliance changed yesterday by nurse Dom using Convex wafer, has 2 more wafer's and pouches in rm. No leakage from appliance. Patient is on air mattress and turns self.
Updated orders, will confirm with hospitalist. Nurse Dom aware of changes, will follow as needed. Nursing can change appliance from now on, next change due on Monday or Monday. If need more wafers contact wound care nurse.
[2024-07-24 10:46] VITALS: BP 120/73
[2024-07-24 10:47] VITALS: BP 120/73
[2024-07-24 12:21] LABS: Glucose - Point of Care 176 mg/dl (70-99)
[2024-07-24] MEDS: NOVOLOG FLEXPEN-LOW RESISTANCE 1 UNITS SC (12:22)
[2024-07-24] MEDS: INVANZ 60 MG IV (14:57)
[2024-07-24 16:04] VITALS: BP 151/67
[2024-07-24 16:27] LABS: Glucose - Point of Care 145 mg/dl (70-99)
[2024-07-24] MEDS: LOVENOX 40 MG SC (17:27)
[2024-07-24] MEDS: CRESTOR 30 MG PO (17:28)
[2024-07-24 17:40] LABS: Glucose - Point of Care 120 mg/dl (70-99)
[2024-07-24] MEDS: NIZORAL 2% CREAM 1 APPLIC TOPICAL (21:02)
[2024-07-24] MEDS: MONISTAT 7 VAGINAL CREAM 1 APPLIC VAG (21:03)
[2024-07-24 21:24] LABS: Glucose - Point of Care 148 mg/dl (70-99)
[2024-07-24 23:02] VITALS: BP 158/79
[2024-07-25] MEDS: TYLENOL 650 MG PO ×3 (02:29→22:01)
[2024-07-25] MEDS: ULTRAM 50 MG PO (05:26)
[2024-07-25] MEDS: NEURONTIN 100 MG PO ×3 (07:22→21:52)
[2024-07-25] MEDS: COZAAR 50 MG PO ×2 (07:22→21:52)
[2024-07-25] MEDS: LOPRESSOR 100 MG PO ×2 (07:22→21:51)
[2024-07-25] MEDS: LOW STRENGTH ASPIRIN 81 MG PO (07:22)
[2024-07-25] MEDS: FEOSOL 325 MG PO (07:22)
[2024-07-25] MEDS: COLACE 100 MG PO ×2 (07:22→21:51)
[2024-07-25] MEDS: ALDACTONE 25 MG PO (07:22)
[2024-07-25] MEDS: PROCARDIA XL (EXTENDED RELEASE) 60 MG PO ×2 (07:23→21:52)
[2024-07-25] MEDS: DESENEX/MITRAZOL/ZEASORB 1 APPLIC TOPICAL ×2 (07:23→21:55)
[2024-07-25] MEDS: NIZORAL 2% CREAM 1 APPLIC TOPICAL ×2 (07:23→21:54)
[2024-07-25 08:00] VITALS: BP 140/65
[2024-07-25 08:05] LABS: Glucose - Point of Care 153 mg/dl (70-99)
[2024-07-25] MEDS: NOVOLOG FLEXPEN-LOW RESISTANCE 1 UNITS SC ×3 (08:36→17:43)
[2024-07-25] MEDS: NOVOLOG FLEXPEN 4 UNITS SC ×3 (08:36→17:43)
--- NOTE | 2024-07-25 08:38 | W.PN.CRS1 ---
Today's Communication / Plan
-
CT tomorrow
change right sided gravity bag to bulb suction
Assessment/Plan
-
58-year-old female with PMH of DM, HTN, HLD, endometrial cancer s/p hysterectomy, breast cancer s/p mastectomy and chemo, history of perforated diverticulitis s/p Barbour's procedure on 05/24/2024 (prolonged postoperative course secondary to
intra-abdominal collections in LUQ and right mid abdomen s/p IR drainage, pleural effusion s/p chest tube with pleurodesis, discharged on 07/01), who presents to the [facility] ED with purulent drainage from around IR drain; found to have fevers, WBC
8.7, CT showing IR drains within collections, but persistent collections in place, suggesting that the IR drainage is not sufficient
07/18 - upsizing of right�mid abdomen drain to 10 Fr
07/21 - CT shows little improvement of LUQ and R mid abd collections, drains in good location
07/22 -upsizing of LUQ drain to 14 Fr with 45 mL dark hemorrhagic fluid out, right mid drain to 16 Fr with 60 mL purulent fluid out
AFVSS
no labs today
�Persistent intra-abdominal collections; attempted IR drainage with recent upsizing
�S/p drain upsizing; twice daily flushes
�Likely will repeat CT tomorrow to see if any improvement in collection size; if no improvement, tPA remains an option, surgery last resort. Monitor output for now.
-I will reach out to IR to replace the right sided gravity drain bag to a JODIE bulb
�Continue pain control with Tylenol and tramadol as needed
� Continue IV ertapenem; appreciate ID
� Continue DVT PPx with subQ heparin
� Recommend PT, OOB/IS
� Appreciate hospitalist
Subjective Data
Subjective Data
Date of Service: July 25, 2024
Patient states she feels well. She has no nausea or vomiting. Her pain is controlled. She overall has no complaints.
Objective Data
-
Vital Signs
Temp Pulse Resp BP Pulse Ox
99.0 F 79 16 158/79 97
07/24/24 23:02 07/24/24 23:02 07/24/24 23:02 07/24/24 23:02 07/24/24 23:02
Intake & Output
07/24/24 07/25/24 07/26/24
06:59 06:59 06:59
Intake Total 1140 / 1140 480 / 480
Output Total / 65 75 / 75
Balance 1075 / 1075 405 / 405
Intake:
Oral fluids 120 / 120 480 / 480
IV fluids (Total) 1020 / 1020
IV piggybacks 0 / 0
Output:
Drain Output (Total) 65 / 65 75 / 75
Left Upper Abdomen 30 / 50 / 50
Right Lower Abdomen 35 / 35 25 / 25
Other:
Number of approximated MODERATE 4 3
amounts of urine
How many times incontinent 1
MODERATE amount urine
How many times incontinent 9
SATURATED amount urine
Lab Results
07/24/24 04:47
07/24/24 04:47
Physical Exam
-
General: No Acute Distress and AOx3
Abdomen: Soft, Non Distended, Non Tender and Other (Left drain with dark bloody output, Right drain with car/green pus output)
Skin: Warm and Dry
--- NOTE | 2024-07-25 08:53 | W.PN.HOSP.TC ---
Today's Communication/Plan
-
CT tomorrow
Assessment / Plan
Assessment / Plan
Ms. Bella Mendoza is a 58 yo woman with hx DM, HTN, hx perforated diverticulitis s/p Barbour's procedure 05/24/24 with post-op course c/b left upper quadrant splenic hematoma and RLQ fluid collection s/p IR-guided drainage, finding bacteroides
bacteremia s/p IV antibiotic course, presents with drainage surrounding catheter found to be septic with finding of enlarged intraabdominal collections.
CT A/P 07/21
IMPRESSION:
1. Complex fluid collection within the periumbilical region, located just deep to the umbilicus, measuring 8.6 x 5.5 x 8.7 cm in diameter. Fluid collection is slightly smaller compared to 07/17/2024, however enlarged in size compared to 06/23/2024.
Internal appearance is suggestive of complex thick abscess and/or feculent material.
2. Additional fluid collection within the left upper quadrant in the subdiaphragmatic region, measuring 8.1 x 5.4 x 4.3 cm. Fluid collection is not significantly changed in size compared to most recent prior, and decreased in size compared to
06/23/2024.
3. Each percutaneous drainage catheter appears to be in satisfactory position, however each catheter has not drained the fluid collection.
4. Small left pleural effusion, with mild left basilar subsegmental atelectasis.
Recent hx of perforated sigmoid diverticulitis s/p Caridad's resection/ostomy creation complicated by splenic capsular tear/hematoma and RLQ fluid collection/anterior abdominal fluid collection with drains. Patient also had septic shock and
bacteroids bacteremia.
Sepsis POA due to fever, tachycardia
- CT on admission showing: Stable positioning of the left upper quadrant pigtail catheter with surrounding collection measuring 5.4 x 7.4 cm (improved from 8.1 x 8.8 cm). stable appearance of the right lower quadrant percutaneous drain with
increased size of the gas and fluid containing collection in the mid abdomen in the abdomen measuring up to 10.2 cm, previously 8 cm. There is wall thickening of the adjacent bowel, likely reactive enteritis.
- CRS/IR/ID consults appreciated
- s/p drain study and upsizing of drain 07/18.
- s/p repeat CT 07/21 and upsizing drain 07/22
- plan is to repeat CT tomorrow to monitor collectins
- IV Ertapenem
- pain control, anti-emetics
Hx of L pleural effusion s/p chest tube with thrombolytics
- CT with small pleural fluid and atelectasis (IS ordered)
Acute on chronic anemia
Hx of RENY
- iron studies c/w chronic inflammation
- follow Hb
Hypokalemia - replete prn
Multidrug-resistant hypertension
- continue Losartan BID, Metoprolol, Aldactone, Nifedipine
Hyperlipidemia
- continue statin
Diabetes
- hemoglobin A1c 7.4 recently
- hold Mounjaro; Jardiance
- continue SSI
- continue NovoLog
Coarctation of aorta with history of prior aortic stenting
- continue Aspirin
Obesity
Patient has stage 3 lower sacral pressure injury with large area of fungal rash around it
- discussed with the patient regarding offloading and also about diet.
- wound care following
History of breast cancer status post mastectomy and chemo
History of endometrial cancer status post hysterectomy
DVT prophylaxis: SC Heparin
Code: Full
Anticipated Discharge: 24 - 48 hours
Subjective/Interval History
-
Date of Service: July 25, 2024
feeling well
pain at left drain site
Objective Data
-
Vital Signs:
Vital Signs
Temp Pulse Resp BP Pulse Ox
99.0 F 79 16 158/79 97
07/24/24 23:02 07/24/24 23:02 07/24/24 23:02 07/24/24 23:02 07/24/24 23:02
I&O
1007/25/24 07/26/24
06:59 06:59 06:59
Intake Total 1140 / 1140 480 / 480
Output Total 65 / 65 75 / 75
Balance 1075 / 1075 405 / 405
Review of Systems
-
History Source: Patient
All other systems: Reviewed and negative
Physical Exam
-
General: No Apparent Distress
HEENT: Normocephalic and Atraumatic
Respiratory: Negative Wheezes or Rales
Cardiac: Regular Rhythm and S1/S2
GI: Soft and Other (LUQ drain with serosanguinous output; right drain with car drainage )
Musculoskeletal: No Edema
Neuro: AO x 3
Hematologic / Lymphatic: No Lymphadenopathy
Psych: Calm
Data Reviewed
-
Diagnostic Radiology: Report Reviewed by me
Labs: Labs Reviewed by me
[2024-07-25 11:57] LABS: Glucose - Point of Care 166 mg/dl (70-99)
[2024-07-25] MEDS: INVANZ 60 MG IV (14:54)
[2024-07-25 15:30] VITALS: BP 135/70
[2024-07-25 16:42] LABS: Glucose - Point of Care 169 mg/dl (70-99)
--- NOTE | 2024-07-25 17:16 | CM ---
Addendum entered by MARIANN Rose 07/26/24 15:58:
Met patient at her request. She stated that she wanted to know how to vote as she believes she may be inpatient until after voting day.
Discussed SNF with patient as that is the indication and she firmly declined, stating that she has been in rehabs and hospitals since April. Shared concerns about her plan to return home as well as indication on behalf of PT/OT and patient insisted
that she won't return to a SNF. She stated that she would be agreeable to VN. Patient will most likely go home on IV ABX as well as the fact that is not functioning near an independent level and her only source of support is her 25 year old son who
works during the day. Patient stated that she won't reconsider.
Spoke with CM director regarding protocol of how to vote while in the hospital. She stated that there are policies in place and will update CM to advise patient.
Will continue to indicate therapy's advisement for safe discharge.
Original Note:
Reviewed chart, indication is for patient to go to SNF. Will meet with her to determine options.
Plan: Case management will continue to follow and assist with discharge planning. Home vrs. SNF.
[2024-07-25] MEDS: LOVENOX 40 MG SC (17:43)
[2024-07-25] MEDS: CRESTOR 30 MG PO (17:43)
[2024-07-25 21:37] LABS: Glucose - Point of Care 121 mg/dl (70-99)
[2024-07-25] MEDS: MONISTAT 7 VAGINAL CREAM 1 APPLIC VAG (21:53)
[2024-07-25 23:03] VITALS: BP 161/80
[2024-07-26] MEDS: ULTRAM 50 MG PO ×2 (01:00→10:42)
[2024-07-26 05:11] LABS: Hemoglobin 8.4 g/dL (12.0-16.0); Mean Corp Hgb Conc. 32.3 g/dL (33.0-37.0); Mean Corpuscular Hgb 26.2 pg (27.0-31.0); Mean Platelet Volume 10.3 fL (7.4-10.4); Platelet Count 355 10^3/uL (130-400); Red Blood Cell Count 3.21 10^6/uL (4.20-5.40); Red Cell Dist. Width 17.8 % (11.5-14.5)
[2024-07-26 05:34] LABS: Blood Urea Nitrogen 16 mg/dl (7-17); Calcium 8.8 mg/dl (8.4-10.2); Carbon Dioxide 27 mmol/L (22-30); Chloride 102 mmol/L (98-107); Estimated Creatinine Clearance 115 ml/min; Glucose 152 mg/dl (70-99); Magnesium 1.7 mg/dl (1.6-2.3); Potassium 3.6 mmol/L (3.5-5.1); Sodium 140 mmol/L (135-145); eGFR > 60.00
[2024-07-26 07:30] VITALS: BP 168/80
[2024-07-26 08:06] LABS: Glucose - Point of Care 139 mg/dl (70-99)
[2024-07-26] MEDS: NOVOLOG FLEXPEN-LOW RESISTANCE SC ×2 (08:37→17:59)
--- NOTE | 2024-07-26 08:55 | W.PN.HOSP.TC ---
Today's Communication/Plan
-
repeat CT today
Assessment / Plan
Assessment / Plan
Ms. Bella Mendoza is a 58 yo woman with hx DM, HTN, hx perforated diverticulitis s/p Barbour's procedure 05/24/24 with post-op course c/b left upper quadrant splenic hematoma and RLQ fluid collection s/p IR-guided drainage, finding bacteroides
bacteremia s/p IV antibiotic course, presents with drainage surrounding catheter found to be septic with finding of enlarged intraabdominal collections.
CT A/P 07/21
IMPRESSION:
1. Complex fluid collection within the periumbilical region, located just deep to the umbilicus, measuring 8.6 x 5.5 x 8.7 cm in diameter. Fluid collection is slightly smaller compared to 07/17/2024, however enlarged in size compared to 06/23/2024.
Internal appearance is suggestive of complex thick abscess and/or feculent material.
2. Additional fluid collection within the left upper quadrant in the subdiaphragmatic region, measuring 8.1 x 5.4 x 4.3 cm. Fluid collection is not significantly changed in size compared to most recent prior, and decreased in size compared to
06/23/2024.
3. Each percutaneous drainage catheter appears to be in satisfactory position, however each catheter has not drained the fluid collection.
4. Small left pleural effusion, with mild left basilar subsegmental atelectasis.
Recent hx of perforated sigmoid diverticulitis s/p Caridad's resection/ostomy creation complicated by splenic capsular tear/hematoma and RLQ fluid collection/anterior abdominal fluid collection with drains. Patient also had septic shock and
bacteroids bacteremia.
Sepsis POA due to fever, tachycardia
- CT on admission showing: Stable positioning of the left upper quadrant pigtail catheter with surrounding collection measuring 5.4 x 7.4 cm (improved from 8.1 x 8.8 cm). stable appearance of the right lower quadrant percutaneous drain with
increased size of the gas and fluid containing collection in the mid abdomen in the abdomen measuring up to 10.2 cm, previously 8 cm. There is wall thickening of the adjacent bowel, likely reactive enteritis.
- CRS/IR/ID consults appreciated
- s/p drain study and upsizing of drain 07/18.
- s/p repeat CT 07/21 and upsizing drain 07/22
- plan is to repeat CT today to monitor collectins and replace mid drain given leaking
- IV Ertapenem
- pain control, anti-emetics
Hx of L pleural effusion s/p chest tube with thrombolytics
- CT with small pleural fluid and atelectasis (IS ordered)
Acute on chronic anemia
Hx of RENY
- iron studies c/w chronic inflammation
- follow Hb
Hypokalemia - replete prn
Multidrug-resistant hypertension
- continue Losartan BID, Metoprolol, Aldactone, Nifedipine
Hyperlipidemia
- continue statin
Diabetes
- hemoglobin A1c 7.4 recently
- hold Mounjaro; Jardiance
- continue SSI
- continue NovoLog
Coarctation of aorta with history of prior aortic stenting
- continue Aspirin
Obesity
Patient has stage 3 lower sacral pressure injury with large area of fungal rash around it
- discussed with the patient regarding offloading and also about diet.
- wound care following
History of breast cancer status post mastectomy and chemo
History of endometrial cancer status post hysterectomy
DVT prophylaxis: SC Heparin
Code: Full
Anticipated Discharge: 24 - 48 hours
Subjective/Interval History
-
Date of Service: July 26, 2024
no new complaints except right lower quadrant drain is leaking
Objective Data
-
Labs:
Laboratory Results
07/26/24
04:56
WBC 8.0
Hgb 8.4 L
Hct 26.0 L
Plt Count 355
Sodium 140
Potassium 3.6
Chloride 102
Carbon Dioxide 27
BUN 16
Creatinine 0.6
Glucose 152 H
Calcium 8.8
Vital Signs:
Vital Signs
Temp Pulse Resp BP Pulse Ox
98.8 F 87 18 168/80 99
07/26/24 07:30 07/26/24 07:30 07/26/24 07:30 07/26/24 07:30 07/26/24 07:30
I&O
07/25/24 07/26/24 07/27/24
06:59 06:59 06:59
Intake Total 480 / 480 1240 / 1240
Output Total 75 / 75
Balance 405 / 405 1210 / 1210
Review of Systems
-
History Source: Patient
All other systems: Reviewed and negative
Physical Exam
-
General: No Apparent Distress
HEENT: Normocephalic and Atraumatic
Respiratory: Negative Wheezes or Rales
Cardiac: Regular Rhythm and S1/S2
GI: Soft and Other (LUQ drain with serosanguinous output; right drain with purulent drainage )
Musculoskeletal: No Edema
Neuro: AO x 3
Hematologic / Lymphatic: No Lymphadenopathy
Psych: Calm
Data Reviewed
-
Diagnostic Radiology: Report Reviewed by me
Labs: Labs Reviewed by me
[2024-07-26] MEDS: NEURONTIN 100 MG PO ×3 (09:18→22:20)
[2024-07-26] MEDS: LOW STRENGTH ASPIRIN 81 MG PO (09:19)
[2024-07-26] MEDS: COLACE 100 MG PO (09:19)
[2024-07-26] MEDS: FEOSOL 325 MG PO (09:19)
[2024-07-26] MEDS: ALDACTONE 25 MG PO (09:19)
[2024-07-26] MEDS: NOVOLOG FLEXPEN 4 UNITS SC ×3 (09:21→17:59)
[2024-07-26] MEDS: PROCARDIA XL (EXTENDED RELEASE) 60 MG PO ×2 (09:23→20:39)
[2024-07-26] MEDS: NIZORAL 2% CREAM 1 APPLIC TOPICAL ×2 (09:24→20:39)
[2024-07-26] MEDS: DESENEX/MITRAZOL/ZEASORB 1 APPLIC TOPICAL ×2 (09:24→20:36)
[2024-07-26] MEDS: COZAAR 50 MG PO ×2 (09:24→20:42)
[2024-07-26] MEDS: LOPRESSOR 100 MG PO ×2 (09:25→20:36)
--- NOTE | 2024-07-26 09:30 | PTCARENOTE ---
R abdomen drain leaking at stopcock, unable to flush full ordered amount d/t leak. hospitalist and surg aware, considering drain exchange. For repeat CT today. Drain still draining at this time.
[2024-07-26] MEDS: TYLENOL 650 MG PO ×3 (09:33→22:20)
--- NOTE | 2024-07-26 12:23 | W.PN.ID1 ---
Date of Service
Date of Service: July 26, 2024
Today's Communication
May ultimately need more definitive therapy for source control.
Assessment / Plan
# Fevers
- Improved
# Diverticulitis with diverticular perforation
- s/p diverting colostomy (05/22/2024).
- Intra-op splenic capsular tear with subsequent hematoma development
# LUQ infected hematoma
-s/p drain placement (06/14/24) - bloody
- Fluid cx: ESBL E. coli x2
- zosyn (05/19 to 05/31); Ertapenam (05/31 to present)
# Anterior abdominal collection/abscess
- s/p drainage (06/10/24)
- prior cultures with Klebsiella pneumoniae and ESBL E. coli
-
# Asymptomatic bacteriuria
Recommendations:
Repeat CT today: Interval decrease in size of left subdiaphragmatic abscess. Interval decrease in size of anterior abdominal abscess. Drainage catheters in position within both collections. No new abscess is identified.
Continue with ertapenem (d#66 of abx) for today, although doubt there is any penetrance of abx into prior noted anterior abdominal collection,
Abscess cultures noted, with growth of staph epi, strep species x 2. Growth of these organisms would suggest limited penetration into the abscess.
Drain has been upsized and hopefully will diminish size of collection, but antibiotics will not effectively penetrate more than 1 cm into a collection. May ultimately need more definitive therapy for source control.
Monitor white count and temperature curve.
Continue with supportive measures.
����������������������������������������������������������
Chief Complaint
-: Other (Abdominal abscess)
Subjective / Review of Systems
afebrile
bp stable
Vital Signs / Physical Exam
Vital Signs
Vital Signs
Temp Pulse Resp BP Pulse Ox
98.8 F 87 18 168/80 99
07/26/24 07:30 07/26/24 07:30 07/26/24 07:30 07/26/24 07:30 07/26/24 07:30
Physical Exam
Constitutional: No Acute Distress
Cardiovascular: Regular Rate and S1/S2; Negative Murmur or Rub
Pulmonary: Clear and Symmetric; Negative Wheezes or Rales
Gastrointestinal: Soft, Non Tender, Non Distended and Normal Bowel Sounds
Skin: Warm and Dry; Negative Rash or Jaundice
Lines: Other (drain in place)
Objective Data
Lab Data
Lab Results
07/26/24 04:56
07/26/24 04:56
Estimated Creat Clear 115 ml/min 07/26/24 04:56
Lactic Acid 0.7 mmol/L (0.7-2.0) 07/17/24 19:59
Total Bilirubin 0.6 mg/dl (0.2-1.3) 07/17/24 19:59
AST 24 U/L (14-36) 07/17/24 19:59
ALT 13 U/L (0-35) 07/17/24 19:59
Alkaline Phosphatase 78 U/L (38-126) 07/17/24 19:59
Most recent labs reviewed.
Micro Results:
07/17/24 19:28 Wound Culture - Final
Abscess Staphylococcus epidermidis
Streptococcus anginosus
Gram Stain - Final
07/17/24 20:56 Blood Culture - Final
Blood/Venous No Growth - Final Report
07/17/24 20:02 Blood Culture - Final
Blood/Venous No Growth - Final Report
07/17/24 19:28 Urine Culture - Final
Urine Enterococcus durans
Yeast
07/18/24 16:30 Wound Culture - Final
Abscess Gram Stain - Final
07/18/24 Unknown MRSA Screen - Final
Nose No Methicillin Resistant Staphylococcus aureus isolated.
Imaging:
07/17/2024 CT abdomen/pelvis with contrast: Postoperative changes of a Caridad procedure noted. There is stable appearance of the right lower quadrant percutaneous drain with increased size of the gas and fluid containing collection in the mid
abdomen now measuring up to 10.2 cm whereas previously it was 8 cm. There is wall thickening of the adjacent bowel, likely reactive enteritis. Stable positioning of the left pigtail chest tube with small loculated pleural effusion on the catheter
tip measuring 5.4 x 7.4 cm please see full dictation for additional detail. Film personally viewed.
[2024-07-26 13:26] LABS: Glucose - Point of Care 171 mg/dl (70-99)
[2024-07-26] MEDS: NOVOLOG FLEXPEN-LOW RESISTANCE 1 UNITS SC (14:21)
[2024-07-26] MEDS: INVANZ 60 MG IV (14:33)
[2024-07-26 15:25] VITALS: BP 104/65
[2024-07-26 17:36] LABS: Glucose - Point of Care 108 mg/dl (70-99)
[2024-07-26] MEDS: CRESTOR 30 MG PO (17:58)
[2024-07-26] MEDS: LOVENOX 40 MG SC (17:59)
[2024-07-26] MEDS: COLACE PO (20:36)
[2024-07-26 21:39] LABS: Glucose - Point of Care 110 mg/dl (70-99)
[2024-07-26] MEDS: MONISTAT 7 VAGINAL CREAM 1 APPLIC VAG (22:20)
[2024-07-26 23:35] VITALS: BP 151/65
[2024-07-27] MEDS: ULTRAM 50 MG PO ×2 (00:41→12:44)
[2024-07-27] MEDS: TYLENOL 650 MG PO ×3 (04:44→18:50)
[2024-07-27 07:00] VITALS: BP 162/81
[2024-07-27 07:40] LABS: Glucose - Point of Care 158 mg/dl (70-99)
[2024-07-27] MEDS: PROCARDIA XL (EXTENDED RELEASE) 60 MG PO ×2 (07:59→20:08)
[2024-07-27] MEDS: LOW STRENGTH ASPIRIN 81 MG PO (07:59)
[2024-07-27] MEDS: NEURONTIN 100 MG PO ×3 (07:59→21:02)
[2024-07-27] MEDS: COZAAR 50 MG PO ×2 (08:00→20:07)
[2024-07-27] MEDS: COLACE 100 MG PO ×2 (08:00→20:02)
[2024-07-27] MEDS: ALDACTONE 25 MG PO (08:00)
[2024-07-27] MEDS: FEOSOL 325 MG PO (08:00)
[2024-07-27] MEDS: LOPRESSOR 100 MG PO ×2 (08:00→20:08)
[2024-07-27] MEDS: NOVOLOG FLEXPEN-LOW RESISTANCE 1 UNITS SC ×3 (09:02→18:09)
[2024-07-27] MEDS: NOVOLOG FLEXPEN 4 UNITS SC ×3 (09:04→18:09)
--- NOTE | 2024-07-27 09:46 | W.PN.HOSP.TC ---
Today's Communication/Plan
-
see plan
Assessment / Plan
Assessment / Plan
Ms. Bella Mendoza is a 58 yo woman with hx DM, HTN, hx perforated diverticulitis s/p Barbour's procedure 05/24/24 with post-op course c/b left upper quadrant splenic hematoma and RLQ fluid collection s/p IR-guided drainage, finding bacteroides
bacteremia s/p IV antibiotic course, presents with drainage surrounding catheter found to be septic with finding of enlarged intraabdominal collections.
CT A/P 07/21
IMPRESSION:
1. Complex fluid collection within the periumbilical region, located just deep to the umbilicus, measuring 8.6 x 5.5 x 8.7 cm in diameter. Fluid collection is slightly smaller compared to 07/17/2024, however enlarged in size compared to 06/23/2024.
Internal appearance is suggestive of complex thick abscess and/or feculent material.
2. Additional fluid collection within the left upper quadrant in the subdiaphragmatic region, measuring 8.1 x 5.4 x 4.3 cm. Fluid collection is not significantly changed in size compared to most recent prior, and decreased in size compared to
06/23/2024.
3. Each percutaneous drainage catheter appears to be in satisfactory position, however each catheter has not drained the fluid collection.
4. Small left pleural effusion, with mild left basilar subsegmental atelectasis.
Recent hx of perforated sigmoid diverticulitis s/p Caridad's resection/ostomy creation complicated by splenic capsular tear/hematoma and RLQ fluid collection/anterior abdominal fluid collection with drains. Patient also had septic shock and
bacteroids bacteremia.
Sepsis POA due to fever, tachycardia
- CT on admission showing: Stable positioning of the left upper quadrant pigtail catheter with surrounding collection measuring 5.4 x 7.4 cm (improved from 8.1 x 8.8 cm). stable appearance of the right lower quadrant percutaneous drain with
increased size of the gas and fluid containing collection in the mid abdomen in the abdomen measuring up to 10.2 cm, previously 8 cm. There is wall thickening of the adjacent bowel, likely reactive enteritis.
- CRS/IR/ID consults appreciated
- s/p drain study and upsizing of drain 07/18.
- s/p repeat CT 07/21 and upsizing drain 07/22
-s/p repeat CT on 07/26 with decreasing size of collections - OK for DC with drains per surgery
- IV Ertapenem - home infusion to be set up on Monday. IR to check on right drain today (leaking)
- pain control, anti-emetics
Hx of L pleural effusion s/p chest tube with thrombolytics
- CT with small pleural fluid and atelectasis (IS ordered)
Acute on chronic anemia
Hx of RENY
- iron studies c/w chronic inflammation
- follow Hb
Hypokalemia - replete prn
Multidrug-resistant hypertension
- continue Losartan BID, Metoprolol, Aldactone, Nifedipine
Hyperlipidemia
- continue statin
Diabetes
- hemoglobin A1c 7.4 recently
- hold Mounjaro; Jardiance
- continue SSI
- continue NovoLog
Coarctation of aorta with history of prior aortic stenting
- continue Aspirin
Obesity
Patient has stage 3 lower sacral pressure injury with large area of fungal rash around it
- discussed with the patient regarding offloading and also about diet.
- wound care following
History of breast cancer status post mastectomy and chemo
History of endometrial cancer status post hysterectomy
DVT prophylaxis: Lovenox subQ
Code: Full
Anticipated Discharge: 24 - 48 hours
Subjective/Interval History
-
Date of Service: July 27, 2024
no new complaints
Objective Data
-
Vital Signs:
Vital Signs
Temp Pulse Resp BP Pulse Ox
98.1 F 79 16 162/81 99
07/27/24 07:00 07/27/24 07:59 07/27/24 07:00 07/27/24 07:59 07/27/24 07:00
I&O
07/26/24 07/27/24 07/28/24
06:59 06:59 05:59
Intake Total 1240 / 1240 1460 / 1460
Output Total 190 / 190
Balance 1210 / 1210 1270 / 1270
Review of Systems
-
History Source: Patient
All other systems: Reviewed and negative
Physical Exam
-
General: No Apparent Distress
HEENT: Normocephalic and Atraumatic
Respiratory: Negative Wheezes or Rales
Cardiac: Regular Rhythm and S1/S2
GI: Soft and Other (LUQ drain with serosanguinous output; right drain with purulent drainage )
Musculoskeletal: No Edema
Neuro: AO x 3
Hematologic / Lymphatic: No Lymphadenopathy
Psych: Calm
Data Reviewed
-
Diagnostic Radiology: Report Reviewed by me
Labs: Labs Reviewed by me
[2024-07-27 11:01] VITALS: BP 119/57
[2024-07-27 11:41] LABS: Glucose - Point of Care 169 mg/dl (70-99)
--- NOTE | 2024-07-27 13:24 | W.PN.UPDATE ---
Update Note
Progress Note Update
- Indwelling midline abdominal drain found to be cracked at the hub, site of leakage
- Drain exchanged for new 16F tube, 20 mL purulent fluid aspirated. Placed to bulb suction.
[2024-07-27 13:25] VITALS: BP 153/65; BP_SYST 74
--- NOTE | 2024-07-27 13:38 | W.PN.CRS1 ---
Today's Communication / Plan
-
continue drains
IR to change right drain tubing
Assessment/Plan
-
58-year-old female with PMH of DM, HTN, HLD, endometrial cancer s/p hysterectomy, breast cancer s/p mastectomy and chemo, history of perforated diverticulitis s/p Barbour's procedure on 05/24/2024 (prolonged postoperative course secondary to
intra-abdominal collections in LUQ and right mid abdomen s/p IR drainage, pleural effusion s/p chest tube with pleurodesis, discharged on 07/01), who presents to the [place] ED with purulent drainage from around IR drain; found to have fevers, WBC
8.7, CT showing IR drains within collections, but persistent collections in place, suggesting that the IR drainage is not sufficient
07/18 - upsizing of right�mid abdomen drain to 10 Fr
07/21 - CT shows little improvement of LUQ and R mid abd collections, drains in good location
07/22 -upsizing of LUQ drain to 14 Fr with 45 mL dark hemorrhagic fluid out, right mid drain to 16 Fr with 60 mL purulent fluid out
AFVSS
no labs today
�Persistent intra-abdominal collections; attempted IR drainage with recent upsizing
�S/p drain upsizing; twice daily flushes
�IR to change right gravity bag to a zeke and adjust tubing
-Monitor output for now.
�Continue pain control with Tylenol and tramadol as needed
� Continue IV ertapenem; appreciate ID
� Continue DVT PPx with subQ heparin
� Recommend PT, OOB/IS
� Appreciate hospitalist
- No plans for surgery during this hospitalization
- Dispo: SNF vs home
Subjective Data
Subjective Data
Date of Service: July 27, 2024
Patient states she has no pain and that she 'feels fine'. She has no complaints.
Objective Data
-
Vital Signs
Temp Pulse Resp BP Pulse Ox
98.9 F 74 16 153/65 100
07/27/24 13:25 07/27/24 13:25 07/27/24 13:25 07/27/24 13:25 07/27/24 13:25
Intake & Output
07/26/24 07/27/24 07/28/24
06:59 06:59 05:59
Intake Total 1240 / 1240 1460 / 1460
Output Total 30 / 30 190 / 190
Balance 1210 / 1210 1270 / 1270
Intake:
Oral fluids 1200 / 1200 1440 / 1440
Amount instilled into Drain ( 40 / 40 20 / 20
Total)
Left Upper Abdomen 20 / 20
Right Lower Abdomen 20 / 20
Output:
Liquid stool amount 100 / 100
Colostomy 100 / 100
Drain Output (Total) 30 / 30 90 / 90
Left Upper Abdomen 30 / 30 60 / 60
Right Lower Abdomen 30 / 30
Other:
Number of approximated MODERATE 3 2
amounts of urine
How many times incontinent 1
MODERATE amount urine
Lab Results
07/26/24 04:56
07/26/24 04:56
Physical Exam
-
General: No Acute Distress and AOx3
Abdomen: Soft, Non Distended, Non Tender and Other (R drain with car/purulent output, L drain with dark old blood)
Skin: Warm and Dry
[2024-07-27] MEDS: NIZORAL 2% CREAM 1 APPLIC TOPICAL ×2 (14:00→20:08)
[2024-07-27] MEDS: DESENEX/MITRAZOL/ZEASORB 1 APPLIC TOPICAL ×2 (14:01→20:06)
[2024-07-27] MEDS: INVANZ 60 MG IV (14:02)
[2024-07-27 16:05] VITALS: BP 156/82
[2024-07-27 16:56] LABS: Glucose - Point of Care 160 mg/dl (70-99)
[2024-07-27] MEDS: LOVENOX 40 MG SC (17:26)
[2024-07-27] MEDS: CRESTOR 30 MG PO (17:26)
[2024-07-27] MEDS: MONISTAT 7 VAGINAL CREAM 1 APPLIC VAG (21:02)
[2024-07-27 21:30] LABS: Glucose - Point of Care 167 mg/dl (70-99)
[2024-07-27 23:00] VITALS: BP 118/58
[2024-07-28] MEDS: ULTRAM 50 MG PO ×3 (02:34→16:00)
[2024-07-28] MEDS: TYLENOL 650 MG PO ×2 (05:41→20:23)
[2024-07-28 07:00] VITALS: BP 172/82
[2024-07-28 08:25] LABS: Glucose - Point of Care 131 mg/dl (70-99)
[2024-07-28] MEDS: NOVOLOG FLEXPEN 4 UNITS SC ×3 (09:29→17:18)
[2024-07-28] MEDS: NOVOLOG FLEXPEN-LOW RESISTANCE SC (09:29)
[2024-07-28] MEDS: MYLICON 80 MG PO ×2 (09:32→20:23)
[2024-07-28] MEDS: NEURONTIN 100 MG PO ×3 (09:36→22:29)
[2024-07-28] MEDS: LOPRESSOR 100 MG PO ×2 (09:36→20:24)
[2024-07-28] MEDS: FEOSOL 325 MG PO (09:36)
[2024-07-28] MEDS: DESENEX/MITRAZOL/ZEASORB 1 APPLIC TOPICAL (09:36)
[2024-07-28] MEDS: ALDACTONE 25 MG PO (09:36)
[2024-07-28] MEDS: COZAAR 50 MG PO ×2 (09:36→20:24)
[2024-07-28] MEDS: COLACE 100 MG PO ×2 (09:36→20:23)
[2024-07-28] MEDS: LOW STRENGTH ASPIRIN 81 MG PO (09:36)
[2024-07-28] MEDS: PROCARDIA XL (EXTENDED RELEASE) 60 MG PO ×2 (09:37→20:23)
[2024-07-28] MEDS: NIZORAL 2% CREAM 1 APPLIC TOPICAL ×2 (09:37→20:24)
--- NOTE | 2024-07-28 09:41 | W.PN.HOSP.TC ---
Today's Communication/Plan
-
dispo planning with home infusion therapy
Assessment / Plan
Assessment / Plan
Ms. Bella Mendoza is a 58 yo woman with hx DM, HTN, hx perforated diverticulitis s/p Barbour's procedure 05/24/24 with post-op course c/b left upper quadrant splenic hematoma and RLQ fluid collection s/p IR-guided drainage, finding bacteroides
bacteremia s/p IV antibiotic course, presents with drainage surrounding catheter found to be septic with finding of enlarged intraabdominal collections.
CT A/P 07/21
IMPRESSION:
1. Complex fluid collection within the periumbilical region, located just deep to the umbilicus, measuring 8.6 x 5.5 x 8.7 cm in diameter. Fluid collection is slightly smaller compared to 07/17/2024, however enlarged in size compared to 06/23/2024.
Internal appearance is suggestive of complex thick abscess and/or feculent material.
2. Additional fluid collection within the left upper quadrant in the subdiaphragmatic region, measuring 8.1 x 5.4 x 4.3 cm. Fluid collection is not significantly changed in size compared to most recent prior, and decreased in size compared to
06/23/2024.
3. Each percutaneous drainage catheter appears to be in satisfactory position, however each catheter has not drained the fluid collection.
4. Small left pleural effusion, with mild left basilar subsegmental atelectasis.
Recent hx of perforated sigmoid diverticulitis s/p Caridad's resection/ostomy creation complicated by splenic capsular tear/hematoma and RLQ fluid collection/anterior abdominal fluid collection with drains. Patient also had septic shock and
bacteroids bacteremia.
Sepsis POA due to fever, tachycardia
- CT on admission showing: Stable positioning of the left upper quadrant pigtail catheter with surrounding collection measuring 5.4 x 7.4 cm (improved from 8.1 x 8.8 cm). stable appearance of the right lower quadrant percutaneous drain with
increased size of the gas and fluid containing collection in the mid abdomen in the abdomen measuring up to 10.2 cm, previously 8 cm. There is wall thickening of the adjacent bowel, likely reactive enteritis.
- CRS/IR/ID consults appreciated
- s/p drain study and upsizing of drain 07/18.
- s/p repeat CT 07/21 and upsizing drain 07/22
- s/p repeat CT on 07/26 with decreasing size of collections - OK for DC with drains per surgery (right catheter leaking fixed by IR on 07/27)
- IV Ertapenem - home infusion to be set up on Monday.
- pain control, anti-emetics
Hx of L pleural effusion s/p chest tube with thrombolytics
- CT with small pleural fluid and atelectasis (IS ordered)
Acute on chronic anemia
Hx of RENY
- iron studies c/w chronic inflammation
- follow Hb
Hypokalemia - replete prn
Multidrug-resistant hypertension
- continue Losartan BID, Metoprolol, Aldactone, Nifedipine
Hyperlipidemia
- continue statin
Diabetes
- hemoglobin A1c 7.4 recently
- hold Mounjaro; Jardiance
- continue SSI
- continue NovoLog
Coarctation of aorta with history of prior aortic stenting
- continue Aspirin
Obesity
Patient has stage 3 lower sacral pressure injury with large area of fungal rash around it
- discussed with the patient regarding offloading and also about diet.
- wound care following
History of breast cancer status post mastectomy and chemo
History of endometrial cancer status post hysterectomy
DVT prophylaxis: Lovenox subQ
Code: Full
Anticipated Discharge: 24 - 48 hours
Subjective/Interval History
-
Date of Service: July 28, 2024
no new complaints
IR exchanged drain, no longer leaking
Objective Data
-
Vital Signs:
Vital Signs
Temp Pulse Resp BP Pulse Ox
98.7 F 94 18 172/82 96
07/28/24 07:00 07/28/24 07:00 07/28/24 07:00 07/28/24 07:00 07/28/24 07:00
I&O
07/27/24 07/28/24 07/29/24
07:59 06:59 06:59
Intake Total
Output Total
Balance
Review of Systems
-
History Source: Patient
All other systems: Reviewed and negative
Physical Exam
-
General: No Apparent Distress
HEENT: Normocephalic and Atraumatic
Respiratory: Negative Wheezes or Rales
Cardiac: Regular Rhythm and S1/S2
GI: Soft and Other (LUQ drain with serosanguinous output; right drain with purulent drainage )
Musculoskeletal: No Edema
Neuro: AO x 3
Hematologic / Lymphatic: No Lymphadenopathy
Psych: Calm
Data Reviewed
-
Diagnostic Radiology: Report Reviewed by me
Labs: Labs Reviewed by me
[2024-07-28 12:31] LABS: Glucose - Point of Care 231 mg/dl (70-99)
[2024-07-28] MEDS: NOVOLOG FLEXPEN-LOW RESISTANCE 2 UNITS SC (13:14)
[2024-07-28] MEDS: INVANZ 60 MG IV (13:14)
[2024-07-28 15:00] VITALS: BP 123/73
[2024-07-28 16:35] LABS: Glucose - Point of Care 157 mg/dl (70-99)
[2024-07-28] MEDS: LOVENOX 40 MG SC (17:19)
[2024-07-28] MEDS: CRESTOR 30 MG PO (17:19)
[2024-07-28] MEDS: NOVOLOG FLEXPEN-LOW RESISTANCE 1 UNITS SC (17:19)
[2024-07-28] MEDS: DESENEX/MITRAZOL/ZEASORB 4 APPLIC TOPICAL (20:24)
[2024-07-28 21:51] LABS: Glucose - Point of Care 185 mg/dl (70-99)
[2024-07-28] MEDS: MONISTAT 7 VAGINAL CREAM 1 APPLIC VAG (22:29)
[2024-07-29] VITALS (7 sets, daily range): BP systolic 121–168; BP diastolic 56–84; PULSE 78
[2024-07-29] MEDS: ULTRAM 50 MG PO ×2 (03:08→14:20)
[2024-07-29 07:32] LABS: Glucose - Point of Care 121 mg/dl (70-99)
[2024-07-29] MEDS: PROCARDIA XL (EXTENDED RELEASE) 60 MG PO ×2 (08:41→21:42)
[2024-07-29] MEDS: ALDACTONE 25 MG PO (08:41)
[2024-07-29] MEDS: NEURONTIN 100 MG PO ×3 (08:42→21:43)
[2024-07-29] MEDS: COLACE 100 MG PO ×2 (08:42→21:42)
[2024-07-29] MEDS: FEOSOL 325 MG PO (08:42)
[2024-07-29] MEDS: COZAAR 50 MG PO ×2 (08:45→21:42)
[2024-07-29] MEDS: LOW STRENGTH ASPIRIN 81 MG PO (08:45)
[2024-07-29] MEDS: LOPRESSOR 100 MG PO ×2 (08:54→21:42)
[2024-07-29] MEDS: TYLENOL 650 MG PO ×2 (09:13→22:16)
--- NOTE | 2024-07-29 09:26 | W.PN.ID1 ---
Addendum entered and electronically signed by Bello Santamaria DO 07/29/24 16:39:
I saw and evaluated the patient. I reviewed the resident�s note and agree with findings and plan as documented in the resident�s note excepts for the following.
Patient overall feels well. Denies significant complaints.
Drains noted to be upsized and are now producing more drainage.
Patient remains afebrile, with normal white count and clinically stable.
Currently on day #69 of ertapenem.
Would like to discontinue further antibiotics at this point given the good drainage from the abdominal drains.
Will continue to follow for any clinical deterioration.
Will monitor white count and temperature curve.
Original Note:
Date of Service
Date of Service: July 29, 2024
Today's Communication
Continue IV ertapenem
Assessment / Plan
Impression/Assessment:
Fevers - improved
Diverticulitis with diverticular perforation
- s/p diverting colostomy (05/22/2024).
- Intra-op splenic capsular tear with subsequent hematoma development
LUQ infected hematoma
-s/p drain placement (06/14/24) - bloody
- Fluid cx: ESBL E. coli x2
- zosyn (05/19 to 05/31); Ertapenam (05/31 to present)
Anterior abdominal collection/abscess
- s/p drainage (06/10/24)
- prior cultures with Klebsiella pneumoniae and ESBL E. coli
Asymptomatic bacteriuria
Recommendations:
Repeat CT 07/26 : Interval decrease in size of left subdiaphragmatic abscess. Interval decrease in size of anterior abdominal abscess. Drainage catheters in position within both collections. No new abscess is identified.
Continue with ertapenem (d#69 of abx). Will continue with IV abx course upon discharge.
Abscess cultures 07/17: staph epi, strep species x 2. Growth of these organisms would suggest limited penetration into the abscess.
Upsizing of drain on 07/[address] on 07/26 showing decreasing size of collections; surgery deferred by colorectal during this admission with outpatient follow up.
Monitor white count and temperature curve.
Continue with supportive measures.
Chief Complaint
-: Other (Abdominal abscess)
Subjective / Review of Systems
Patient feels well today, denies any fever or chills. Only has mild pain around midline abdominal drain.
Review of Systems: No Fever, No Chills, No Chest Pain, No Nausea and No Vomiting
Vital Signs / Physical Exam
Vital Signs
Vital Signs
Temp Pulse Resp BP Pulse Ox
97.9 F 88 14 158/79 97
07/29/24 07:41 07/29/24 08:54 07/29/24 07:41 07/29/24 08:54 07/29/24 07:41
Physical Exam
Constitutional: No Acute Distress
Head: Normocephalic
Cardiovascular: Regular Rate and S1/S2
Pulmonary: Clear
Gastrointestinal: Soft, Tender (mild tenderness around drain) and Non Distended
Skin: Warm and Dry
Neurological: Awake, Alert and Oriented
Objective Data
Lab Data
Lab Results
07/26/24 04:56
07/26/24 04:56
Estimated Creat Clear 115 ml/min 07/26/24 04:56
Lactic Acid 0.7 mmol/L (0.7-2.0) 07/17/24 19:59
Total Bilirubin 0.6 mg/dl (0.2-1.3) 07/17/24 19:59
AST 24 U/L (14-36) 07/17/24 19:59
ALT 13 U/L (0-35) 07/17/24 19:59
Alkaline Phosphatase 78 U/L (38-126) 07/17/24 19:59
Most recent labs reviewed.
Micro Results:
07/17/24 19:28 Wound Culture - Final
Abscess Staphylococcus epidermidis
Streptococcus anginosus
Gram Stain - Final
07/17/24 20:56 Blood Culture - Final
Blood/Venous No Growth - Final Report
07/17/24 20:02 Blood Culture - Final
Blood/Venous No Growth - Final Report
07/17/24 19:28 Urine Culture - Final
Urine Enterococcus durans
Yeast
07/18/24 16:30 Wound Culture - Final
Abscess Gram Stain - Final
07/18/24 Unknown MRSA Screen - Final
Nose No Methicillin Resistant Staphylococcus aureus isolated.
[2024-07-29] MEDS: NOVOLOG FLEXPEN 4 UNITS SC ×3 (09:43→17:42)
[2024-07-29] MEDS: NOVOLOG FLEXPEN-LOW RESISTANCE SC (09:45)
[2024-07-29 11:53] LABS: Glucose - Point of Care 196 mg/dl (70-99)
[2024-07-29] MEDS: NOVOLOG FLEXPEN-LOW RESISTANCE 1 UNITS SC ×2 (13:45→17:42)
--- NOTE | 2024-07-29 14:11 | W.PN.HOSP.TC ---
Today's Communication/Plan
-
patient prefers home/VN to SNF, will setup home IV abx if planned by ID. continue drains
Assessment / Plan
Assessment / Plan
Ms. Bella Mendoza is a 58 yo woman with hx DM, HTN, hx perforated diverticulitis s/p Barbour's procedure 05/24/24 with post-op course c/b left upper quadrant splenic hematoma and RLQ fluid collection s/p IR-guided drainage, finding bacteroides
bacteremia s/p IV antibiotic course, presents with drainage surrounding catheter found to be septic with finding of enlarged intraabdominal collections.
CT A/P 07/21
IMPRESSION:
1. Complex fluid collection within the periumbilical region, located just deep to the umbilicus, measuring 8.6 x 5.5 x 8.7 cm in diameter. Fluid collection is slightly smaller compared to 07/17/2024, however enlarged in size compared to 06/23/2024.
Internal appearance is suggestive of complex thick abscess and/or feculent material.
2. Additional fluid collection within the left upper quadrant in the subdiaphragmatic region, measuring 8.1 x 5.4 x 4.3 cm. Fluid collection is not significantly changed in size compared to most recent prior, and decreased in size compared to
06/23/2024.
3. Each percutaneous drainage catheter appears to be in satisfactory position, however each catheter has not drained the fluid collection.
4. Small left pleural effusion, with mild left basilar subsegmental atelectasis.
Recent hx of perforated sigmoid diverticulitis s/p Caridad's resection/ostomy creation complicated by splenic capsular tear/hematoma and RLQ fluid collection/anterior abdominal fluid collection with drains. Patient also had septic shock and
bacteroids bacteremia.
Sepsis POA due to fever, tachycardia
- CT on admission showing: Stable positioning of the left upper quadrant pigtail catheter with surrounding collection measuring 5.4 x 7.4 cm (improved from 8.1 x 8.8 cm). stable appearance of the right lower quadrant percutaneous drain with
increased size of the gas and fluid containing collection in the mid abdomen in the abdomen measuring up to 10.2 cm, previously 8 cm. There is wall thickening of the adjacent bowel, likely reactive enteritis.
- CRS/IR/ID consults appreciated
- s/p drain study and upsizing of drain 07/18.
- s/p repeat CT 07/21 and upsizing drain 07/22
- s/p repeat CT on 07/26 with decreasing size of collections - OK for DC with drains per surgery (right catheter leaking fixed by IR on 07/27)
- IV Ertapenem - home infusion to be set up.
- pain control, anti-emetics
Hx of L pleural effusion s/p chest tube with thrombolytics
- CT with small pleural fluid and atelectasis (IS ordered)
Acute on chronic anemia
Hx of RENY
- iron studies c/w chronic inflammation
- follow Hb
Hypokalemia - replete prn
Multidrug-resistant hypertension
- continue Losartan BID, Metoprolol, Aldactone, Nifedipine
Hyperlipidemia
- continue statin
Diabetes
- hemoglobin A1c 7.4 recently
- hold Mounjaro; Jardiance
- continue SSI
- continue NovoLog
Coarctation of aorta with history of prior aortic stenting
- continue Aspirin
Obesity
Patient has stage 3 lower sacral pressure injury with large area of fungal rash around it
- discussed with the patient regarding offloading and also about diet.
- wound care following
History of breast cancer status post mastectomy and chemo
History of endometrial cancer status post hysterectomy
DVT prophylaxis: Lovenox subQ
Code: Full
Anticipated Discharge: > 48 hours
Subjective/Interval History
-
Date of Service: July 29, 2024
denies any new complaints at present
Objective Data
-
Vital Signs:
Vital Signs
Temp Pulse Resp BP Pulse Ox
97.9 F 66 14 121/56 97
07/29/24 07:41 07/29/24 11:00 07/29/24 07:41 07/29/24 11:00 07/29/24 08:00
I&O
07/28/24 07/29/24 07/30/24
06:59 06:59 06:59
Intake Total 1300 / 1300
Output Total 1190 / 1190
Balance 110 / 110
Physical Exam
-
General: No Apparent Distress
HEENT: Normocephalic and Atraumatic
Respiratory: Negative Wheezes
Cardiac: Regular Rhythm and S1/S2
GI: Soft, Nontender and Other (LUQ and RLQ drain)
Genito-urinary: No Costovertebral Tender
Neuro: AO x 3
Hematologic / Lymphatic: No Lymphadenopathy
Psych: Calm
Data Reviewed
-
Total Time Spent with Patient (in minutes): 41
Labs: Labs Reviewed by me
[2024-07-29] MEDS: INVANZ 60 MG IV (14:21)
--- NOTE | 2024-07-29 14:41 | CM ---
Chart reviewed and per updated notes patient to continue with IV ABX, patient reports that [facility], and is adamant that she is not returning to rehab, pillowcase cutter reached out to [facility] to check
patient's benefit for home infusion for IV ABX at home. Patient is agreeable to [facility].
Patient wants to make sure she has the opportunity to vote tomorrow, and will be provided with a ballot.
Plan; To follow up and check patient's benefit for home infusion. [facility] for drain care.
--- NOTE | 2024-07-29 15:20 | VNURNOTE ---
[facility] liaison attempted to meet pt at bedside. She was working with PT. Brochure left. Will follow up tomorrow.
[2024-07-29 16:41] LABS: Glucose - Point of Care 151 mg/dl (70-99)
[2024-07-29] MEDS: LOVENOX 40 MG SC (17:13)
[2024-07-29] MEDS: CRESTOR 30 MG PO (17:14)
[2024-07-29] MEDS: DESENEX/MITRAZOL/ZEASORB 1 APPLIC TOPICAL ×2 (17:29→21:43)
[2024-07-29] MEDS: NIZORAL 2% CREAM 1 APPLIC TOPICAL ×2 (17:29→21:44)
[2024-07-29] MEDS: MONISTAT 7 VAGINAL CREAM 1 APPLIC VAG (21:44)
[2024-07-29 21:55] LABS: Glucose - Point of Care 139 mg/dl (70-99)
[2024-07-30] VITALS (7 sets, daily range): BP systolic 70–179; BP diastolic 60–91
[2024-07-30] MEDS: ULTRAM 50 MG PO ×2 (00:50→13:06)
[2024-07-30 08:00] LABS: Glucose - Point of Care 128 mg/dl (70-99)
--- NOTE | 2024-07-30 08:45 | W.PN.CRS1 ---
Today's Communication / Plan
-
Drain study of LUQ drain +/- removal depending on results.
Assessment/Plan
-
Persistent intra-abdominal collections; attempted IR drainage with recent upsizing.
1. ID input noted and appreciated. Antibiotic (Invanz) has been held after a prolonged course. Has been afebrile with a normal WBC.
2. I have reached out to IR (Dr. Cloorado) requesting a drain study with hope of removal of the LUQ/perisplenic drain. This collection ass smaller on recent imaging. This may be done today.
3. Otherwise disposition per hospitalist. Anticipating home with visiting nurses.
Subjective Data
Subjective Data
Date of Service: July 30, 2024
No complaints.
Tolerating diet.
In good spirits.
Objective Data
-
Vital Signs
Temp Pulse Resp BP Pulse Ox
99.0 F 91 16 179/91 95
07/30/24 07:00 07/30/24 07:00 07/30/24 07:00 07/30/24 07:00 07/30/24 07:00
Intake & Output
07/29/24 07/30/24 07/31/24
06:59 06:59 06:59
Intake Total 1300 / 1300 1220 / 1220
Output Total 1190 / 1190 70 / 70
Balance 110 / 110 1150 / 1150
Intake:
Oral fluids 1230 / 1230 1200 / 1200
IV fluids (Total) 50 / 50
Amount instilled into Drain ( 20 / 20
Total)
Left Upper Abdomen 10 / 10 10 / 10
Right Lower Abdomen 10 / 10 10
Output:
Liquid stool amount 25 / 25
Colostomy 25 / 25
Drain Output (Total) 40 / 40 45 / 45
Left Upper Abdomen 20 / 20 25 / 25
Right Lower Abdomen 20 / 20 20 / 20
Urine, Voided 1150 / 1150
Other:
Number of approximated MODERATE 4 4
amounts of urine
Number of approximated LARGE 3
amounts of urine
Lab Results
07/26/24 04:56
07/26/24 04:56
Physical Exam
-
General: No Acute Distress
Chest: Clear
Cardiovascular: Regular Rate & Rhythm
Abdomen: Non Distended, Tender (minimal if any) and Other (stoma viable with output; IR drains with car output)
Incision: Clear, Dry, Intact and No Skin Erythema
[2024-07-30] MEDS: LOW STRENGTH ASPIRIN 81 MG PO (08:47)
[2024-07-30] MEDS: LOPRESSOR 100 MG PO ×2 (08:47→20:40)
[2024-07-30] MEDS: FEOSOL 325 MG PO (08:47)
[2024-07-30] MEDS: NEURONTIN 100 MG PO ×3 (08:48→20:40)
[2024-07-30] MEDS: TYLENOL 650 MG PO ×3 (08:48→18:14)
[2024-07-30] MEDS: PROCARDIA XL (EXTENDED RELEASE) 60 MG PO ×2 (08:49→20:39)
[2024-07-30] MEDS: ALDACTONE 25 MG PO (08:49)
[2024-07-30] MEDS: DESENEX/MITRAZOL/ZEASORB 1 APPLIC TOPICAL ×2 (08:49→20:44)
[2024-07-30] MEDS: COZAAR 50 MG PO ×2 (08:49→20:40)
[2024-07-30] MEDS: COLACE 100 MG PO ×2 (08:49→20:40)
[2024-07-30] MEDS: NIZORAL 2% CREAM 1 APPLIC TOPICAL ×2 (08:50→20:45)
--- NOTE | 2024-07-30 09:52 | VNURNOTE ---
Home Health Liaison met with patient at bedside to discuss [facility] nurse/therapy, visits, schedule and homebound status. Patient is agreeable and understands that visits at home will be 2-3 x per week to assess and teach medical management, drain care,
and ostomy care. Patient is requesting a commode and RW for home. Rx request sent to Hospitalist. [facility] brochure provided with contact information. Patient is aware that [facility] will contact them for start of care in 1-2 days after discharge from .
[facility] referral accepted in [facility].
[2024-07-30] MEDS: NOVOLOG FLEXPEN-LOW RESISTANCE SC (10:05)
[2024-07-30] MEDS: NOVOLOG FLEXPEN 4 UNITS SC ×3 (10:06→18:13)
--- NOTE | 2024-07-30 10:56 | W.PN.HOSP.TC ---
Addendum entered and electronically signed by Ashley Meade MD 07/30/24 11:01:
Patient needs a commode due to confinement to one level of home environment and there is no toilet on the same level. Patient is also in need of a walker to prevent falls due to unsteady gait
Original Note:
Today's Communication/Plan
-
IR guided drain study of LUQ drain
Assessment / Plan
Assessment / Plan
Ms. Bella Mendoza is a 58 yo woman with hx DM, HTN, hx perforated diverticulitis s/p Barbour's procedure 05/24/24 with post-op course c/b left upper quadrant splenic hematoma and RLQ fluid collection s/p IR-guided drainage, finding bacteroides
bacteremia s/p IV antibiotic course, presents with drainage surrounding catheter found to be septic with finding of enlarged intraabdominal collections.
CT A/P 07/21
IMPRESSION:
1. Complex fluid collection within the periumbilical region, located just deep to the umbilicus, measuring 8.6 x 5.5 x 8.7 cm in diameter. Fluid collection is slightly smaller compared to 07/17/2024, however enlarged in size compared to 06/23/2024.
Internal appearance is suggestive of complex thick abscess and/or feculent material.
2. Additional fluid collection within the left upper quadrant in the subdiaphragmatic region, measuring 8.1 x 5.4 x 4.3 cm. Fluid collection is not significantly changed in size compared to most recent prior, and decreased in size compared to
06/23/2024.
3. Each percutaneous drainage catheter appears to be in satisfactory position, however each catheter has not drained the fluid collection.
4. Small left pleural effusion, with mild left basilar subsegmental atelectasis.
Recent hx of perforated sigmoid diverticulitis s/p Caridad's resection/ostomy creation complicated by splenic capsular tear/hematoma and RLQ fluid collection/anterior abdominal fluid collection with drains. Patient also had septic shock and
bacteroids bacteremia.
Sepsis POA due to fever, tachycardia
- CT on admission showing: Stable positioning of the left upper quadrant pigtail catheter with surrounding collection measuring 5.4 x 7.4 cm (improved from 8.1 x 8.8 cm). stable appearance of the right lower quadrant percutaneous drain with
increased size of the gas and fluid containing collection in the mid abdomen in the abdomen measuring up to 10.2 cm, previously 8 cm. There is wall thickening of the adjacent bowel, likely reactive enteritis.
- CRS/IR/ID consults appreciated
- s/p drain study and upsizing of RLQ drain 07/18.
- s/p repeat CT 07/21 and upsizing RLQ drain 07/22
- s/p repeat CT on 07/26 with decreasing size of collections - OK for DC with drains per surgery (right catheter leaking fixed by IR on 07/27)
- now off IV Abx
- pain control, anti-emetics
- IR guided drain study of LUQ drain
Hx of L pleural effusion s/p chest tube with thrombolytics
- CT with small pleural fluid and atelectasis (IS ordered)
Acute on chronic anemia
Hx of RENY
- iron studies c/w chronic inflammation
- follow Hb
Hypokalemia - replete prn
Multidrug-resistant hypertension
- continue Losartan BID, Metoprolol, Aldactone, Nifedipine
Hyperlipidemia
- continue statin
Diabetes
- hemoglobin A1c 7.4 recently
- hold Mounjaro; Jardiance
- continue SSI
- continue NovoLog
Coarctation of aorta with history of prior aortic stenting
- continue Aspirin
Obesity
Patient has stage 3 lower sacral pressure injury with large area of fungal rash around it
- discussed with the patient regarding offloading and also about diet.
- wound care following
History of breast cancer status post mastectomy and chemo
History of endometrial cancer status post hysterectomy
DVT prophylaxis: Lovenox
Code: Full
Anticipated Discharge: Within 24 hours
Subjective/Interval History
-
Date of Service: July 30, 2024
no new complaints
for IR drain study for LUQ today
Objective Data
-
Vital Signs:
Vital Signs
Temp Pulse Resp BP Pulse Ox
99.0 F 91 16 179/91 95
07/30/24 07:00 07/30/24 08:47 07/30/24 07:00 07/30/24 08:47 07/30/24 07:00
I&O
07/29/24 07/30/24 07/31/24
06:59 06:59 06:59
Intake Total 1300 / 1300 1220 / 1220
Output Total 1190 / 1190 70 / 70
Balance 110 / 110 1150 / 1150
Physical Exam
-
General: No Apparent Distress
HEENT: Normocephalic and Atraumatic
Respiratory: Negative Wheezes
Cardiac: Regular Rhythm and S1/S2
GI: Soft, Nontender and Other (LUQ and RLQ drains)
Genito-urinary: No Costovertebral Tender
Musculoskeletal: No Edema
Neuro: AO x 3
Psych: Calm
Data Reviewed
-
Total Time Spent with Patient (in minutes): 42
Labs: Labs Reviewed by me
[2024-07-30 11:25] LABS: Glucose - Point of Care 178 mg/dl (70-99)
--- NOTE | 2024-07-30 13:50 | W.PN.ID1 ---
Date of Service
Date of Service: July 30, 2024
Today's Communication
Monitor closely off antibiotics.
Assessment / Plan
Fevers - improved
Diverticulitis with diverticular perforation
- s/p diverting colostomy (05/22/2024).
- Intra-op splenic capsular tear with subsequent hematoma development
LUQ infected hematoma
-s/p drain placement (06/14/24) - bloody
- Fluid cx: ESBL E. coli x2
- zosyn (05/19 to 05/31); Ertapenam (05/31 to 07/29)
Anterior abdominal collection/abscess
- s/p drainage (06/10/24)
- prior cultures with Klebsiella pneumoniae and ESBL E. coli
- Abscess cultures 07/17: staph epi, strep species x 2. Growth of these organisms would suggest limited penetration into the abscess.
Asymptomatic bacteriuria
Recommendations:
Repeat CT 07/26 : Interval decrease in size of left subdiaphragmatic abscess. Interval decrease in size of anterior abdominal abscess. Drainage catheters in position within both collections. No new abscess is identified.
Patient overall clinically stable, without fevers or leukocytosis. Antibiotics discontinued 07/29/2024.
Continue close monitoring. Will likely need weekly CBC to assure no recurrence of leukocytosis.
Drains monitored by CRS and IR
Monitor white count and temperature curve.
Continue with supportive measures.
����������������������������������������������������������
Chief Complaint
-: Other (Abdominal abscess)
Subjective / Review of Systems
Patient seen and examined. Overall feels well. Denies abdominal pain. Denies fevers or chills. Antibiotics discontinued yesterday.
Review of Systems: No Fever and No Chills
Vital Signs / Physical Exam
Vital Signs
Vital Signs
Temp Pulse Resp BP Pulse Ox
98.8 F 70 16 125/60 96
07/30/24 13:23 07/30/24 13:23 07/30/24 13:23 07/30/24 13:23 07/30/24 13:23
Physical Exam
Constitutional: No Acute Distress, Comfortable and Non-toxic
Head: Normocephalic
Cardiovascular: S1/S2; Negative S3/S4
Pulmonary: Clear; Negative Wheezes or Rales
Gastrointestinal: Soft, Non Tender, Non Distended and Other (Mid abdomen JODIE remains in place. Right upper quadrant JODIE remains in place.)
Skin: Warm and Dry
Wound: Other
Neurological: Awake, Alert and Oriented
Objective Data
Lab Data
Lab Results
07/26/24 04:56
07/26/24 04:56
Estimated Creat Clear 115 ml/min 07/26/24 04:56
Lactic Acid 0.7 mmol/L (0.7-2.0) 07/17/24 19:59
Total Bilirubin 0.6 mg/dl (0.2-1.3) 07/17/24 19:59
AST 24 U/L (14-36) 07/17/24 19:59
ALT 13 U/L (0-35) 07/17/24 19:59
Alkaline Phosphatase 78 U/L (38-126) 07/17/24 19:59
Most recent labs reviewed.
Micro Results:
07/17/24 19:28 Wound Culture - Final
Abscess Staphylococcus epidermidis
Streptococcus anginosus
Gram Stain - Final
07/17/24 20:56 Blood Culture - Final
Blood/Venous No Growth - Final Report
07/17/24 20:02 Blood Culture - Final
Blood/Venous No Growth - Final Report
07/17/24 19:28 Urine Culture - Final
Urine Enterococcus durans
Yeast
07/18/24 16:30 Wound Culture - Final
Abscess Gram Stain - Final
07/18/24 Unknown MRSA Screen - Final
Nose No Methicillin Resistant Staphylococcus aureus isolated.
Care Review
Plan reviewed with: Physician (Hospitalist; CRS)
[2024-07-30] MEDS: NOVOLOG FLEXPEN-LOW RESISTANCE 1 UNITS SC (14:15)
[2024-07-30] MEDS: CRESTOR 30 MG PO (17:01)
[2024-07-30] MEDS: LOVENOX 40 MG SC (17:02)
[2024-07-30 17:03] LABS: Glucose - Point of Care 212 mg/dl (70-99)
[2024-07-30] MEDS: NOVOLOG FLEXPEN-LOW RESISTANCE 2 UNITS SC (18:13)
[2024-07-30 21:21] LABS: Glucose - Point of Care 148 mg/dl (70-99)
[2024-07-31] MEDS: ULTRAM 50 MG PO ×2 (01:25→16:51)
[2024-07-31 06:02] LABS: Hematocrit 24.6 % (37.0-47.0); Mean Corp Hgb Conc. 32.5 g/dL (33.0-37.0); Mean Corpuscular Hgb 26.3 pg (27.0-31.0); Mean Corpuscular Volume 80.9 fL (81.0-99.0); Mean Platelet Volume 10.5 fL (7.4-10.4); Platelet Count 255 10^3/uL (130-400); Red Blood Cell Count 3.04 10^6/uL (4.20-5.40); Red Cell Dist. Width 18.4 % (11.5-14.5); White Blood Cell Count 8.3 10^3/uL (4.8-10.8)
[2024-07-31 06:26] LABS: Blood Urea Nitrogen 15 mg/dl (7-17); Calcium 8.7 mg/dl (8.4-10.2); Carbon Dioxide 25 mmol/L (22-30); Chloride 101 mmol/L (98-107); Estimated Creatinine Clearance 115 ml/min; Glucose 122 mg/dl (70-99); Potassium 3.7 mmol/L (3.5-5.1); Sodium 139 mmol/L (135-145); eGFR > 60.00
[2024-07-31 07:38] VITALS: BP 149/69
[2024-07-31] MEDS: ALDACTONE 25 MG PO (08:50)
[2024-07-31] MEDS: LOW STRENGTH ASPIRIN 81 MG PO (08:50)
[2024-07-31] MEDS: TYLENOL 650 MG PO (08:50)
[2024-07-31] MEDS: PROCARDIA XL (EXTENDED RELEASE) 60 MG PO (08:51)
[2024-07-31] MEDS: LOPRESSOR 100 MG PO (08:51)
[2024-07-31] MEDS: COLACE 100 MG PO (08:51)
[2024-07-31] MEDS: DESENEX/MITRAZOL/ZEASORB 1 APPLIC TOPICAL (08:51)
[2024-07-31] MEDS: FEOSOL 325 MG PO (08:51)
[2024-07-31] MEDS: COZAAR 50 MG PO (08:51)
[2024-07-31] MEDS: NEURONTIN 100 MG PO ×2 (08:51→15:08)
[2024-07-31] MEDS: NIZORAL 2% CREAM 1 APPLIC TOPICAL (08:52)
[2024-07-31 09:19] LABS: Glucose - Point of Care 112 mg/dl (70-99)
[2024-07-31] MEDS: NOVOLOG FLEXPEN 4 UNITS SC ×2 (09:38→13:46)
[2024-07-31] MEDS: NOVOLOG FLEXPEN-LOW RESISTANCE SC (09:42)
--- NOTE | 2024-07-31 11:00 | WOUNDNOTE ---
WOC RN note: natalia Jay re: recommend offering patient a hospital bed with a gel or air overlay; patient has a stage 3 sacral pressure injury. More ostomy supplies left for patient, discussed with RN Yuridia.
--- NOTE | 2024-07-31 11:02 | W.PN.HOSP.TC ---
Addendum entered and electronically signed by Ashley Meade MD 07/31/24 11:05:
More than 30 minutes spent in discharge including
Final examination of the patient
Summarizing hospital stay
Instructions for continuing care to all relevant caregivers
Preparation of discharge records, prescriptions, and referral forms
Total time spent (in minutes): 41
Original Note:
Today's Communication/Plan
-
dc home/VN
Assessment / Plan
Assessment / Plan
Ms. Bella Mendoza is a 58 yo woman with hx DM, HTN, hx perforated diverticulitis s/p Babrour's procedure 05/24/24 with post-op course c/b left upper quadrant splenic hematoma and RLQ fluid collection s/p IR-guided drainage, finding bacteroides
bacteremia s/p IV antibiotic course, presents with drainage surrounding catheter found to be septic with finding of enlarged intraabdominal collections.
CT A/P 07/21
IMPRESSION:
1. Complex fluid collection within the periumbilical region, located just deep to the umbilicus, measuring 8.6 x 5.5 x 8.7 cm in diameter. Fluid collection is slightly smaller compared to 07/17/2024, however enlarged in size compared to 06/23/2024.
Internal appearance is suggestive of complex thick abscess and/or feculent material.
2. Additional fluid collection within the left upper quadrant in the subdiaphragmatic region, measuring 8.1 x 5.4 x 4.3 cm. Fluid collection is not significantly changed in size compared to most recent prior, and decreased in size compared to
06/23/2024.
3. Each percutaneous drainage catheter appears to be in satisfactory position, however each catheter has not drained the fluid collection.
4. Small left pleural effusion, with mild left basilar subsegmental atelectasis.
Recent hx of perforated sigmoid diverticulitis s/p Caridad's resection/ostomy creation complicated by splenic capsular tear/hematoma and RLQ fluid collection/anterior abdominal fluid collection with drains. Patient also had septic shock and
bacteroids bacteremia.
Sepsis POA due to fever, tachycardia
- CT on admission showing: Stable positioning of the left upper quadrant pigtail catheter with surrounding collection measuring 5.4 x 7.4 cm (improved from 8.1 x 8.8 cm). stable appearance of the right lower quadrant percutaneous drain with
increased size of the gas and fluid containing collection in the mid abdomen in the abdomen measuring up to 10.2 cm, previously 8 cm. There is wall thickening of the adjacent bowel, likely reactive enteritis.
- CRS/IR/ID consults appreciated
- s/p drain study and upsizing of RLQ drain 07/18.
- s/p repeat CT 07/21 and upsizing RLQ drain 07/22
- s/p repeat CT on 07/26 with decreasing size of collections - OK for DC with drains per surgery (right catheter leaking fixed by IR on 07/27)
- now off IV Abx per ID
- pain control, anti-emetics
- IR guided drain study of LUQ drain with removal of this drain 07/30
- OP CRS and ID f/u
Hx of L pleural effusion s/p chest tube with thrombolytics
- CT with small pleural fluid and atelectasis (IS ordered)
Acute on chronic anemia
Hx of RENY
- iron studies c/w chronic inflammation
- follow Hb
Hypokalemia - replete prn
Multidrug-resistant hypertension
- continue Losartan BID, Metoprolol, Aldactone, Nifedipine
Hyperlipidemia
- continue statin
Diabetes
- hemoglobin A1c 7.4 recently
- hold Mounjaro; Jardiance
- continue SSI
- continue NovoLog
Coarctation of aorta with history of prior aortic stenting
- continue Aspirin
Obesity
Patient has stage 3 lower sacral pressure injury with large area of fungal rash around it
- discussed with the patient regarding offloading and also about diet.
- wound care following
History of breast cancer status post mastectomy and chemo
History of endometrial cancer status post hysterectomy
DVT prophylaxis: Lovenox
Code: Full
Anticipated Discharge: Within 24 hours
Subjective/Interval History
-
Date of Service: July 31, 2024
no complaints
Objective Data
-
Labs:
Laboratory Results
07/31/24
05:18
WBC 8.3
Hgb 8.0 L
Hct 24.6 L
Plt Count 255 D
Sodium 139
Potassium 3.7
Chloride 101
Carbon Dioxide 25
BUN 15
Creatinine 0.6
Glucose 122 H
Calcium 8.7
Vital Signs:
Vital Signs
Temp Pulse Resp BP Pulse Ox
99.5 F 93 16 149/69 93
07/31/24 07:38 07/31/24 08:50 07/31/24 07:38 07/31/24 08:50 07/31/24 07:38
I&O
07/30/24 07/31/24 08/01/24
06:59 06:59 06:59
Intake Total 1220 / 1220 720 / 720
Output Total 70 / 70 50 / 50
Balance 1150 / 1150 670 / 670
Physical Exam
-
General: No Apparent Distress
HEENT: Normocephalic and Atraumatic
Respiratory: Negative Wheezes
Cardiac: Regular Rhythm
GI: Soft, Nontender and Other (RLQ drain)
Genito-urinary: No Costovertebral Tender
Neuro: AO x 3
Hematologic / Lymphatic: No Lymphadenopathy
Psych: Calm
Data Reviewed
-
Total Time Spent with Patient (in minutes): 41
Labs: Labs Reviewed by me
--- NOTE | 2024-07-31 11:04 | W.DS.TRANS ---
DC Summary - Contact Printer Dry Film
-
Discharge Instructions:
Discharge Diagnosis/Procedures intraabdominal fluid collections with upsizing
of drains. off antibiotics
Diet Diabetic, Carb Controlled
Activity As tolerated
Bathing Restrictions None
Blood Work weekly CBC - script given
Other Services VN
Instructions:
Stand-Alone Forms:
Changes to Home Medications: No
Discharge Medications:
DC Medications w/original date entered in [employer]
cholecalciferol (vitamin D3) 50 mcg (2,000 unit) tablet 2,000 units PO DAILY Supplement 09/02/20
multivitamin with folic acid 400 mcg tablet (Tab-A-Sherley) 1 tab PO DAILY Supplement 09/02/20
aspirin 81 mg chewable tablet 81 mg PO DAILY Blood Clot Prevention/Tx 05/20/24
tirzepatide 2.5 mg/0.5 mL subcutaneous pen injector (Mounjaro) 2.5 mg SC WE Diabetes 05/20/24
acetaminophen 325 mg tablet 650 mg (2 x 325 mg) PO Q6HPRN PRN mild pain #0 tabs 07/01/24
ferrous sulfate 325 mg (65 mg iron) tablet (FeroSul) 325 mg PO DAILY Supplement #0 tabs 07/01/24
lidocaine 4 % topical patch 1 patch topical DAILY Pain #0 ea 07/01/24
simethicone 80 mg chewable tablet 80 mg PO QIDPRN PRN gas pain #0 tabs 07/01/24
bisacodyl 10 mg rectal suppository (Dulcolax (bisacodyl)) 10 mg NM DAILYPRN PRN if no bm aftr mom 07/18/24
collagenase clostridium histo. 250 unit/gram topical ointment (Santyl) 1 applic topical DAILY sacrum 07/18/24
magnesium hydroxide 400 mg/5 mL oral suspension (Milk of Magnesia) 2,400 mg PO DAILYPRN PRN if no bm by 9 shifts 07/18/24
sodium phosphates 19 gram-7 gram/118 mL enema (Fleet Enema) 118 ml NM DAILYPRN PRN if no bm aftr dulcolcax 07/18/24
therapeutic multivitamin 1 tab PO DAILY Supplement 07/18/24
amlodipine 5 mg tablet (Norvasc) 5 mg PO DAILY Blood Pressure #30 tabs 07/30/24
atorvastatin 40 mg tablet (Lipitor) 40 mg PO QPM High Cholesterol #30 tabs 07/30/24
dapagliflozin propanediol 5 mg tablet 5 mg PO DAILY diabetes #30 tabs 07/30/24
gabapentin 100 mg capsule 100 mg PO TID Pain #90 caps 07/30/24
insulin aspart U-100 100 unit/mL (3 mL) subcutaneous pen 4 unit (0.04 mL) SC AC Diabetes #15 mL 07/30/24
ketoconazole 2 % topical cream 1 applic topical BID #60 grams 07/30/24
losartan 50 mg tablet 50 mg PO BID #60 tabs 07/30/24
metoprolol tartrate 100 mg tablet 100 mg PO BID #60 tabs 07/30/24
nifedipine 60 mg tablet,extended release 60 mg PO BID #60 tabs 07/30/24
rosuvastatin 40 mg tablet (Crestor) 40 mg PO DAILY #30 tabs 07/30/24
spironolactone 25 mg tablet 25 mg PO DAILY Blood pressure #30 tabs 07/30/24
tramadol 50 mg tablet 50 mg PO Q6HPRN PRN moderate pain #30 tabs 07/30/24
Home Medication Changes
Pending Results: No
Total time spent discharging patient (in min): 41
[2024-07-31 11:36] LABS: Glucose - Point of Care 196 mg/dl (70-99)
--- NOTE | 2024-07-31 12:04 | W.PN.ID1 ---
Date of Service
Date of Service: July 31, 2024
Today's Communication
Observe off antibiotics.
Assessment / Plan
Fevers - improved
Diverticulitis with diverticular perforation
- s/p diverting colostomy (05/22/2024).
- Intra-op splenic capsular tear with subsequent hematoma development
LUQ infected hematoma
-s/p drain placement (06/14/24) - bloody
- Fluid cx: ESBL E. coli x2
- zosyn (05/19 to 05/31); Ertapenam (05/31 to 07/29)
- s/p drain removal 07/30/24
Anterior abdominal collection/abscess
- s/p drainage (06/10/24)
- prior cultures with Klebsiella pneumoniae and ESBL E. coli
- Abscess cultures 07/17: staph epi, strep species x 2. Growth of these organisms while on prolonged abx exposure would suggest limited penetration into the abscess.
Asymptomatic bacteriuria
Recommendations:
Repeat CT 07/26 : Interval decrease in size of left subdiaphragmatic abscess. Interval decrease in size of anterior abdominal abscess. Drainage catheters in position within both collections. No new abscess is identified.
Patient overall clinically stable, without fevers or leukocytosis. Antibiotics discontinued 07/29/2024.
Continue close monitoring. Will follow-up with weekly CBCs for the next 4 weeks.
Left upper quadrant drain has been removed. Anterior abdominal drain persists.
Drains monitored by CRS and IR.
Monitor white count and temperature curve.
Will follow in the office in 1 to 2 weeks.
Continue with supportive measures.
����������������������������������������������������������
Chief Complaint
-: Other (Abdominal abscess)
Subjective / Review of Systems
Patient seen and examined. Reports that right upper quadrant drain was removed. Still has some drainage from the anterior abdominal JODIE.
Review of Systems: No Fever and No Chills
Vital Signs / Physical Exam
Vital Signs
Vital Signs
Temp Pulse Resp BP Pulse Ox
99.5 F 93 16 149/69 93
07/31/24 07:38 07/31/24 08:50 07/31/24 07:38 07/31/24 08:50 07/31/24 07:38
Physical Exam
Constitutional: No Acute Distress
Head: Normocephalic
Cardiovascular: S1/S2; Negative S3/S4
Pulmonary: Clear; Negative Wheezes or Rales
Gastrointestinal: Soft, Non Tender, Non Distended and Other (Mid abdomen JODIE remains in place. Right upper quadrant JODIE has been removed.)
Skin: Warm and Dry
Wound: Other
Neurological: Awake, Alert and Oriented
Objective Data
Lab Data
Lab Results
07/31/24 05:18
07/31/24 05:18
Estimated Creat Clear 115 ml/min 07/31/24 05:18
Lactic Acid 0.7 mmol/L (0.7-2.0) 07/17/24 19:59
Total Bilirubin 0.6 mg/dl (0.2-1.3) 07/17/24 19:59
AST 24 U/L (14-36) 07/17/24 19:59
ALT 13 U/L (0-35) 07/17/24 19:59
Alkaline Phosphatase 78 U/L (38-126) 07/17/24 19:59
Most recent labs reviewed.
Micro Results:
07/17/24 19:28 Wound Culture - Final
Abscess Staphylococcus epidermidis
Streptococcus anginosus
Gram Stain - Final
07/17/24 20:56 Blood Culture - Final
Blood/Venous No Growth - Final Report
07/17/24 20:02 Blood Culture - Final
Blood/Venous No Growth - Final Report
07/17/24 19:28 Urine Culture - Final
Urine Enterococcus durans
Yeast
10/24/24 16:30 Wound Culture - Final
Abscess Gram Stain - Final
07/18/24 Unknown MRSA Screen - Final
Nose No Methicillin Resistant Staphylococcus aureus isolated.
--- NOTE | 2024-07-31 12:50 | WOUNDNOTE ---
WOC RN note: t/c Spoke with HARMONY Shi who will give patient a bariatric air chair cushion for home use on her recliner chair. t/c SPD and ordered a bariatric air chair cushion.
--- NOTE | 2024-07-31 12:51 | CM ---
Reviewed chart, spoke with wound care who stated that patient should have an air or gel overlay for her hospital stay. Met with patient who was already provided with walker and commode. Per MEKA larry, commode will have a 40 dollar co-pay. Spoke with
patient who denied the need for an air mattress or a gel overlay or a hospital bed as she stated that she is going to be staying on the first floor of her home using a recliner and not a bed. Patient was provided with CM contact information in case
she changes her mind.
Patient stated that her son will be in to pick her up in the afternoon.
Plan: Case management will continue to follow and assist with discharge planning. Home with her son.
[2024-07-31] MEDS: NOVOLOG FLEXPEN-LOW RESISTANCE 1 UNITS SC (13:46)
[2024-07-31 15:41] VITALS: BP 119/56
== END 2024-07-31 18:34 | disposition home or self-care (01) | DRG 862 ==
LOC: 3 WEST ACU 01:44
PROVIDERS: Clinical Nurse Specialist Family Health; Nurse Practitioner Family; Radiology Diagnostic Radiology; Radiology Vascular & Interventional Radiology; Student in an Organized Health Care Education/Training Program; ADMITTING PHYSICIAN Hospitalist; ATTENDING PHYSICIAN Internal Medicine; CONSULT PHYSICIAN Internal Medicine Infectious Disease; EMERGENCY PHYSICIAN Emergency Medicine; FAMILY PHYSICIAN Family Medicine; OTHER PHYSICIAN Surgery
PROC: 0W2GX0Z Change Drainage Device in Peritoneal Cavity, External Approach (ICD-10-PCS; 2024-07-18)
PROC: 0W2FX0Z Change Drainage Device in Abdominal Wall, External Approach (ICD-10-PCS; 2024-07-22)
PROC: 0WPGX0Z Removal of Drainage Device from Peritoneal Cavity, External Approach (ICD-10-PCS; 2024-07-30)
DX: T81.43XA Infection following a procedure, organ and space surgical site, initial encounter (principal); A41.9 Sepsis, unspecified organism; K65.1 Peritoneal abscess; L89.153 Pressure ulcer of sacral region, stage 3; J98.11 Atelectasis; I10 Essential (primary) hypertension; E78.00 Pure hypercholesterolemia, unspecified; E11.65 Type 2 diabetes mellitus with hyperglycemia; I49.5 Sick sinus syndrome; I1A.0 Resistant hypertension; B95.61 Methicillin susceptible Staphylococcus aureus infection as the cause of diseases classified elsewhere; E87.6 Hypokalemia; R82.71 Bacteriuria; E66.9 Obesity, unspecified; Z68.33 Body mass index [BMI] 33.0-33.9, adult; Y83.8 Other surgical procedures as the cause of abnormal reaction of the patient, or of later complication, without mention of misadventure at the time of the procedure; Z93.3 Colostomy status; Z92.21 Personal history of antineoplastic chemotherapy; Z90.710 Acquired absence of both cervix and uterus; Z90.13 Acquired absence of bilateral breasts and nipples; Z88.1 Allergy status to other antibiotic agents; Z85.42 Personal history of malignant neoplasm of other parts of uterus; Z85.3 Personal history of malignant neoplasm of breast; Z79.899 Other long term (current) drug therapy; Z79.4 Long term (current) use of insulin; Z79.82 Long term (current) use of aspirin; Z79.84 Long term (current) use of oral hypoglycemic drugs
CPT/HCPCS: 49423; 49424; 71046; 74177; 75984; 76080; 80048; 80053; 81003; 81015; 82607; 82728; 82746; 82962; 83036; 83540; 83550; 83605; 83735; 85025; 85027; 87040; 87070; 87077; 87086; 87147; 87186; 87205; 96361; 96365; 97110; 97116; 97163; 97167; 97530; 97535; 99285; C1729; C1769; J1335; Q9967

== ENCOUNTER 2024-08-05 09:42 | Inpatient (IN) | payer BC, SELFPAY ==
[2024-08-02] VITALS (9 sets, daily range): BP systolic 100–147; BP diastolic 51–107; BMI 31.0
[2024-08-02 02:40] LABS: % Basophils 0.5 % (0-2); % Eosinophils 0.1 % (0-6); % Immature Granulocytes 0.6 % (0-0.5); % Lymphocytes 8.2 % (20.5-51.1); % Monocytes 9.9 % (1.7-9.3); % Neutrophils 80.7 % (42.2-75.2); Absolute Basophils 0.1 10^3/uL (0-0.2); Absolute Immature Granulocytes 0.1 10^3/uL (0-0.05); Absolute Lymphocytes 0.9 10^3/uL (1.2-3.4); Absolute Monocytes 1.1 10^3/uL (0.1-0.6); Absolute Neutrophils 8.9 10^3/uL (1.4-6.5); Hematocrit 26.9 % (37.0-47.0); Hemoglobin 8.7 g/dL (12.0-16.0); Mean Corp Hgb Conc. 32.3 g/dL (33.0-37.0); Mean Corpuscular Hgb 26.8 pg (27.0-31.0); Mean Corpuscular Volume 82.8 fL (81.0-99.0); Mean Platelet Volume 11.2 fL (7.4-10.4); Nucleated Red Blood Cells % 0 %; Platelet Count 250 10^3/uL (130-400); Red Blood Cell Count 3.25 10^6/uL (4.20-5.40); Red Cell Dist. Width 18.2 % (11.5-14.5)
[2024-08-02 02:58] LABS: ALT (SGPT) 14 U/L (0-35); AST (SGOT) 21 U/L (14-36); Albumin 3.2 g/dl (3.5-5.0); Alkaline Phosphatase 69 U/L (38-126); Blood Urea Nitrogen 27 mg/dl (7-17); Carbon Dioxide 23 mmol/L (22-30); Chloride 98 mmol/L (98-107); Estimated Creatinine Clearance 67 ml/min; Glucose 230 mg/dl (70-99); Potassium 3.9 mmol/L (3.5-5.1); Sodium 135 mmol/L (135-145); Total Bilirubin 0.9 mg/dl (0.2-1.3); Total Protein 6.2 g/dl (6.3-8.2); eGFR > 60.00
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
[2024-08-02] MEDS: NSS 1000 IV (04:10)
--- NOTE | 2024-08-02 07:26 | HPS.HSE ---
Family Physician
-
Family Physician: Jesus Hughes
Chief Complaint
-
Weakness and fall
History of Present Illness
Patient with recent history of perforated diverticulitis complicated by multiple intra-abdominal fluid collections and abscesses who had a recent prolonged hospital stay and was discharged yesterday comes to the emergency department after having leg
weakness while walking out of her bathroom today.
She had spent 43 days admission to the hospital with a perforated diverticulitis, then spent of 14 days in rehab and then spent another 16 days of hospitalization prior to discharge on Monday. Prior to discharge patient did well with ambulation
with a walker. She was able to ambulate seat and pivot while using the walker. On arrival at home the patient initially was able to ambulate to the commode the following morning. She was able to use the commode to PE just a few hours prior to
this current episode.
Patient reported that she stood stood up from a chair using a walker she was able to take couple of steps to the commode people around and attempt to sit on the commode. Is not clear whether it is during the sitting or when she attempted to stand
up that leg felt weak and buckled and then she fell forward onto her reclining chair hurting her neck. She did not hit her head on any hard objects. Family reported that she went limp and collapsed to the ground when attempting to get her up.
Family member reports that patient often goes limp when she is flustered and she has some weakness to her earlier in the day with ambulation.. She was requesting pain medication because she had used pain medications with ambulation while doing PT.
Recent past medical history is significant for perforated diverticulitis status post Barbour's resection and ostomy creation complicated by splenic capsular tear/hematoma on right lower quadrant fluid collection/anterior abdominal fluid collection
with placement of drains. She presented to the ED with sepsis fever and tachycardia. She had been on antibiotics for several weeks prior to presentation. She had multiple drain studies and had serial upsizing and correction of the left upper
quadrant drain. Antibiotics was discontinued and patient was discharged to follow-up with ID and colorectal surgery. Patient was discharged to home with VNA. She had a remanent right lower quadrant drain draining a fatty emotion which has been
the same for a long time. She had ostomy bag in the midline draining with usual amount of stool without any blood or mucus. The patient had tolerated p.o. at home. She has not had any vomiting. She was not nauseous. She had no fevers at home.
Antibiotics have been discharged. She denies any urinary symptoms.
Vital signs in the ED with stable at rest with a blood pressure of 130/67 pulse of 110 and oxygen saturation of 94% on room air. She was afebrile with a temp of 97.4. She had x-rays of the cervical spine and hip which shows no fractures or
dislocations. CBC was unchanged from prior with a white count of 11 hemoglobin of 8.7. Chemistries BUN/creatinine with within normal limits and similar to prior. Glucose was 200s.
She attempted ambulation from the commode while in the ED but she was too weak to get up from the commode and thus was referred for admission.
Medical History
Past Medical History
Past Medical History: Reports HTN (Resistant hypertension on multi antihypertensives) and NIDDM
Additional Past Medical History:
Left pleural effusion status post chest tube and discontinuation
Chronic anemia
Chronic back pain
Atelectasis
Past Surgical History: Reports Bowel Resection (perforated sigmoid diverticulitis status post Caridad's resection and ostomy creation complicated by splenic capsular tear/hematoma)
Additional Past Surgical History:
Perforated diverticulitis status post resection and colostomy
Social History
Tobacco: Non-smoker
Alcohol: None
Drug: None
Personal: Single
Living: With Family
Employment: Retired
Family History
Family History: Not pertinent
Allergies / Home Medications
Allergies reflects when Allergies were last updated in [facility].
Home Medications with original date entered in [facility]
Allergy/Medication List:
Allergies
Allergy/AdvReac Type Severity Reaction Status Date / Time
diphtheria, pertussis, Allergy Unknown Verified 08/02/24 02:16
tetanus vacc
gentamicin Allergy Hearing Verified 08/02/24 02:16
loss
Home Medications
multivitamin with folic acid 400 mcg tablet (Tab-A-Sherley) 1 tab PO DAILY Supplement 09/02/20
aspirin 81 mg chewable tablet 81 mg PO DAILY Blood Clot Prevention/Tx 05/20/24
tirzepatide 2.5 mg/0.5 mL subcutaneous pen injector (Mounjaro) 2.5 mg SC WE Diabetes 05/20/24
acetaminophen 325 mg tablet 650 mg (2 x 325 mg) PO Q6HPRN PRN mild pain #0 tabs 07/01/24
ferrous sulfate 325 mg (65 mg iron) tablet (FeroSul) 325 mg PO DAILY Supplement #0 tabs 07/01/24
simethicone 80 mg chewable tablet 80 mg PO QIDPRN PRN gas pain #0 tabs 07/01/24
amlodipine 5 mg tablet (Norvasc) 5 mg PO DAILY Blood Pressure #30 tabs 07/30/24
dapagliflozin propanediol 5 mg tablet 5 mg PO DAILY diabetes #30 tabs 07/30/24
gabapentin 100 mg capsule 100 mg PO TID Pain #90 caps 07/30/24
insulin aspart U-100 100 unit/mL (3 mL) subcutaneous pen 4 unit (0.04 mL) SC AC Diabetes #15 mL 07/30/24
ketoconazole 2 % topical cream 1 applic topical BID #60 grams 07/30/24
losartan 50 mg tablet 50 mg PO BID #60 tabs 07/30/24
metoprolol tartrate 100 mg tablet 100 mg PO BID #60 tabs 07/30/24
nifedipine 60 mg tablet,extended release 60 mg PO BID #60 tabs 07/30/24
rosuvastatin 40 mg tablet (Crestor) 40 mg PO DAILY #30 tabs 07/30/24
spironolactone 25 mg tablet 25 mg PO DAILY Blood pressure #30 tabs 07/30/24
tramadol 50 mg tablet 50 mg PO Q6HPRN PRN moderate pain #30 tabs 07/30/24
Review of Systems
-
Constitutional: Reports No Symptoms
EENT: Reports No Symptoms
Respiratory: Reports No Symptoms
Cardiac: Reports No Symptoms
Abdomen/GI: Reports No Symptoms
: Reports No Symptoms
Musculoskeletal: Reports Joint Pain
Skin: Reports No Symptoms
Neurological: Reports Dizzy and Weakness
Endocrine: Reports No Symptoms
Hematologic/Lymphatic: Reports No Symptoms
Psych: Reports No Symptoms
Physical Exam
Vital Signs
Vital Signs
Temp Pulse Resp BP Pulse Ox
97.4 F 102 24 138/67 95
08/02/24 02:08 08/02/24 06:00 08/02/24 06:00 08/02/24 06:00 08/02/24 06:00
Physical Exam
General: Comfortable, Conversant and Appears Chronically Ill
HEENT: NormoCephalic, Moist mucous membranes, Atraumatic, PERRLA and No Ptosis
Respiratory: Clear
Cardiac: S1/S2 and Tachycardia
GI: Soft, Non Tender, Ostomy and Other (Left lower quadrant drain, insertion site clean dry and intact)
Rectal: Deferred by Provider
Genito-urinary: Deferred by me
Musculoskeletal: No Clubbing, No Cyanosis and No Edema
Skin: Warm
Neuro: AO x 3, Cranial Nerves Intact, No Sensory Deficits and Other (3 out of 5 weakness in the bilateral hips and knees mostly secondary to pain)
Hematologic/Lymphatic: No Lymphadenopathy
Psych: Calm
Laboratory Results
-
08/02/24 02:30
08/02/24 02:30
Laboratory Results
Total Bilirubin 0.9 mg/dl (0.2-1.3) 08/02/24 02:30
AST 21 U/L (14-36) 08/02/24 02:30
ALT 14 U/L (0-35) 08/02/24 02:30
Alkaline Phosphatase 69 U/L (38-126) 08/02/24 02:30
Data Reviewed
-
Diagnostic Radiology: Image Personally Visualized and interpreted
Lab Data: Labs Reviewed by me
Old Records: Reviewed
Impression/Plan
-
IMPRESSION:
Patient with recent prolonged hospital courses with complicated perforated diverticulitis status post resection and colostomy which was complicated by persistent intra-abdominal fluid collections and infection requiring IR drainage placement and
subsequently requiring adjustment and resizing of the drains with ultimate discontinuation of the left upper quadrant drain and ultimately discontinuation of antibiotics prior to discharge on Monday who presents to the emergency department with
weakness and a fall 1 day after discharge. Patient vital signs, labs and imaging in the emergency department with nonfocal without any acute abnormalities there. I suspect that this is chronic weakness from prolonged hospitalization with
possibility of orthostatic weakness due to multiple antihypertensives and now exacerbated by the pain associated with a fall although she had no evidence of any fractures or dislocations.
PLAN:
1. Weakness and fall - Debility versus orthostatic hypotension or both
- admit to med/surg
- s/p 1 L NS in ED
- check orthostatic vital signs
- no signs of acute infection, will check u/a as well
- antihypertensive management (see below)
- PT and case management consultation.
2. HTN - Patient on nifedipine 60 bid, metoprolol 100 bid, losartan 50 bid and spironolactone. BP supine appears well controlled. She was on these medications on her last admission and had been titrated up at time of discharge from the prior
admission
- orthostatic v/s after iv fluids as above
- continue metoprolol 100 bid for now
- losartan 50 bid, titrate down if remains orthostatic
- spironolactone 25
- nifedipine 60 bid, titrate down if remains orthostatic
3. DM II - moderate hyperglycemia
- continue farxiga
- sliding scale aspart and premeal aspart 4 units ac
- patient on outpatient mounjaro
4. Intra-abdominal flid collection
- UPsized RLQ drain with emuslfied drainage. No tenderness
- d/c'd LUQ drain, no tenderness in area
- ostomy with site clean dry and intact
- off antibiotics
5. Stage III sacral decubitus
- wound consult, continue wound care and positioning
DVT PPX - lovenox sq
Code Status - Full Code
[2024-08-02] MEDS: NSS IV (09:20)
[2024-08-02 09:40] LABS: Glucose - Point of Care 130 mg/dl (70-99)
[2024-08-02] MEDS: PROCARDIA XL (EXTENDED RELEASE) 60 MG PO ×2 (10:05→20:29)
[2024-08-02] MEDS: ULTRAM 50 MG PO ×2 (10:06→17:03)
[2024-08-02] MEDS: FEOSOL 325 MG PO (10:06)
[2024-08-02] MEDS: NEURONTIN 100 MG PO ×3 (10:06→22:39)
[2024-08-02] MEDS: LOW STRENGTH ASPIRIN 81 MG PO (10:07)
[2024-08-02] MEDS: COZAAR 50 MG PO ×2 (10:07→20:30)
[2024-08-02] MEDS: FARXIGA 5 MG PO (10:08)
[2024-08-02] MEDS: NIZORAL 2% CREAM 1 APPLIC TOPICAL ×2 (10:09→20:25)
[2024-08-02] MEDS: NOVOLOG FLEXPEN-LOW RESISTANCE SC ×2 (10:09→16:27)
[2024-08-02] MEDS: CRESTOR 40 MG PO (10:09)
[2024-08-02] MEDS: TYLENOL 650 MG PO ×2 (10:09→20:52)
[2024-08-02] MEDS: ALDACTONE 25 MG PO (10:10)
[2024-08-02] MEDS: LOPRESSOR 100 MG PO ×2 (10:10→20:30)
--- NOTE | 2024-08-02 10:52 | PTCARENOTE ---
Received pt from ED on stretcher with son at bedside. VSS, pt with 100.6 temperature, tylenol administered. Pt complaining of 5/10 pain to B/L knees, PRN tramadol administered. Pt also complaining of pain in rectum from known Stg 1 pressure injury,
ordered cream applied and sacrum offloaded with waffle cushion. Breakfast ordered for pt, pt resting comfortably in bed with son at bedside at this time. Call mejia within reach, admission complete.
--- NOTE | 2024-08-02 11:41 | WOUNDNOTE ---
[facility] RN note: Patient admitted with ambulation dysfunction, recent fall at home. Patient lives with her son. Patient current with VN.
See H&P for complete history.
PMH: From physician report 'Past Medical History: Reports HTN (Resistant hypertension on multi antihypertensives) and NIDDM
Additional Past Medical History:
Left pleural effusion status post chest tube and discontinuation
Chronic anemia
Chronic back pain
Atelectasis
Past Surgical History: Reports Bowel Resection (perforated sigmoid diverticulitis status post Caridad's resection and ostomy creation complicated by splenic capsular tear/hematoma)
Additional Past Surgical History:
Perforated diverticulitis status post resection and colostomy'.
Wound Location and type/assessment: Patient has an existing stage 3 sacral pressure injury, pink with yellow fibrin. +Diffuse yeasty redness around wound.
Appetite: on an 1800 calorie diet.
Pressure redistribution devices in place: [employer] Air bed. Air chair cushion. Patient can turn self in bed. She is very sleepy d/t not having slept last night. Son in room.
Plan: Sacral dressing applied. Patient turned to R semi side lying position. Heels off bed with pillow. Bariatric air chair cushion given. Colostomy pink and flush. Colostomy appliance changed using Vineet wafer # [id number], Mario seal and Independence
pouch # [id number]. Supplies in room.
Will confirm orders with hospitalist service and discussed with HARMONY Riddle.
Care plan to be updated and will follow as needed.
Recommend follow up at wound care center upon discharge.
--- NOTE | 2024-08-02 14:00 | W.PN.HOSP.TC ---
Today's Communication/Plan
-
see outlined plan
Assessment / Plan
Assessment / Plan
Assessment:
Weakness fall, suspected orthostasis from duplication of meds/stacking of BP meds
Hx of Multidrug-resistant hypertension
- took Amlodipine in addition to prescribed Nifedipine, also took AM Aldactone at night
- s/p 1 L IVF
- follow orthostatics/PT
- continue Metoprolol 100mg BID
- continue Losartan 50mg BID
- continue Nifedipine 60mg BID
Fever/leukocytosis
- routine infectious workup sent
- if negative, might have to consider developing sepsis in setting of known abdominal fluid collections
Recent hx of perforated sigmoid diverticulitis s/p Caridad's resection/ostomy creation complicated by splenic capsular tear/hematoma and RLQ fluid collection/anterior abdominal fluid collection with drains. Patient also had septic shock and
bacteroids bacteremia.
Sepsis POA due to fever, tachycardia
- CRS/ID consults appreciated
- s/p recent admission with upsizing of RLQ drain and removal of LUQ drain
- Ertapenem stopped last admission
- follow recs of consultants
- pain control, anti-emetics
Hx of L pleural effusion s/p chest tube with thrombolytics
- CXR ordered
Acute on chronic anemia
Hx of RENY
- iron studies c/w chronic inflammation last admission
- follow Hb, 8.7
Hyperlipidemia
- continue statin
Diabetes
- hemoglobin A1c 7.4 recently
- hold Yovani Blue. continue Farxiga
- continue SSI
- continue NovoLog
Coarctation of aorta with history of prior aortic stenting
- continue Aspirin
Obesity
Patient has stage 3 lower sacral pressure injury with large area of fungal rash around it
- discussed with the patient regarding offloading and also about diet.
- wound care following; Taina planned
History of breast cancer status post mastectomy and chemo
History of endometrial cancer status post hysterectomy
DVT prophylaxis: Lovenox
Code: Full
Anticipated Discharge: > 48 hours
Subjective/Interval History
-
Date of Service: August 02, 2024
febrile, leukocytosis this AM
described a pre-syncopal event last evening while going to commode, fell onto recliner
Objective Data
-
Labs:
Laboratory Results
08/02/24
02:30
WBC 11.0 H
Hgb 8.7 L
Hct 26.9 L
Plt Count 250
Sodium 135
Potassium 3.9
Chloride 98
Carbon Dioxide 23
BUN 27 H
Creatinine 1.0
Glucose 230 H
Calcium 9.0
Total Bilirubin 0.9
AST 21
ALT 14
Alkaline Phosphatase 69
Vital Signs:
Vital Signs
Temp Pulse Resp BP Pulse Ox
100.6 F H 90 20 147/67 99
08/02/24 09:25 08/02/24 10:10 08/02/24 09:25 08/02/24 10:10 08/02/24 10:59
Physical Exam
-
General: No Apparent Distress
HEENT: Normocephalic and Atraumatic
Respiratory: Negative Wheezes
Cardiac: Regular Rhythm and S1/S2
GI: Nontender and Other (RLQ drain)
Genito-urinary: No Costovertebral Tender
Musculoskeletal: No Edema
Neuro: AO x 3
Psych: Calm
Data Reviewed
-
Total Time Spent with Patient (in minutes): 42
Labs: Labs Reviewed by me
--- NOTE | 2024-08-02 14:26 | CON.CRS ---
Consultation
-
Date/Time Consultation Requested: 08/02/2024, 14:00
Date/Time Consultation Performed: 08/02/2024, 15:15
Requesting Provider: Ashley Meade MD
Performing Provider: Chaz Carter MD
Reason for Consultation: fever
Medical History
-
Chief Complaint: fever
History of Present Illness:
58-year-old female with a significant past medical history of acute sigmoid diverticulitis status post explorative laparotomy with Barbour's resection and colostomy on 05/22/2024. She had an extensive hospitalization from 05/20/2024 to 07/01/2024.
During her stay she developed intra-abdominal abscesses and had a right lower quadrant abscess as well as a left upper quadrant splenic hematoma and had IR drains placed in both. She was discharged to a nursing facility on IV antibiotics under the
direction of Dr. Santamaria. Several weeks later, her son noticed a foul smelling odor around her right lower quadrant JODIE drain when he picked her up after her pulmonology appointment at [facility]. She went to the ER and was re-admitted from
07/17/2024- to 07/31/2024 and her LUQ drain was removed during the stay and her midline drain was upsized by IR. She was discharged to home off antibiotics 07/31/2024.
She presents back to [facility] today due to weakness in her legs when she got up from a chair. Due to the fall, she was brought to the hospital by her son. On admission her WBC is 11.0. She had a mild temp of 100.6. She was tachycardic
but this has resolved. She denies any abdominal pain other than drain soreness. She has no nausea or vomiting. She has been tolerating a diet.
Past Medical History
Past Medical History: Cancer (History of breast cancer status post mastectomy and chemotherapy, history of endometrial cancer status post hysterectomy) and Other (Acute sigmoid diverticulitis leading to Barbour's procedure, recurrent pleural
effusion status post thoracentesis, status post chest tube, TIFFANI, hypokalemia, hypertension, hyperlipidemia, diabetes, thrombocytopenia, coarctation of the aorta, obesity, sacral decub)
Past Surgical History: Other (Bowel Resection (Barbour's procedure with colostomy, IR drains in place), Gynecological (Hysterectomy) and Other (Mastectomy))
Social History
Tobacco: Non-Smoker
Alcohol: None
Drug: None
Family History
Family History: Reviewed & Not Pertinent
Allergies / Home Medications
Allergy/AdvReac Type Severity Reaction Status Date / Time
diphtheria, pertussis, Allergy Unknown Verified 08/02/24 02:16
tetanus vacc
gentamicin Allergy Hearing Verified 08/02/24 02:16
loss
�Medication �Instructions �Recorded �Confirmed �Type
multivitamin with folic acid 400 1 tab PO DAILY Supplement 09/02/20 08/02/24 History
mcg tablet (Tab-A-Sherley)
aspirin 81 mg chewable tablet 81 mg PO DAILY Blood Clot 05/20/24 08/02/24 History
Prevention/Tx
tirzepatide 2.5 mg/0.5 mL 2.5 mg SC WE Diabetes 05/20/24 08/02/24 History
subcutaneous pen injector
(Mounjaro)
acetaminophen 325 mg tablet 650 mg (2 x 325 mg) PO Q6HPRN PRN 07/01/24 08/02/24 Rx
mild pain #0 tabs
ferrous sulfate 325 mg (65 mg 325 mg PO DAILY Supplement #0 tabs 07/01/24 08/02/24 Rx
iron) tablet (FeroSul)
simethicone 80 mg chewable tablet 80 mg PO QIDPRN PRN gas pain #0 07/01/24 08/02/24 Rx
tabs
amlodipine 5 mg tablet (Norvasc) 5 mg PO DAILY Blood Pressure #30 07/30/24 08/02/24 Rx
tabs
dapagliflozin propanediol 5 mg 5 mg PO DAILY diabetes #30 tabs 07/30/24 08/02/24 Rx
tablet
gabapentin 100 mg capsule 100 mg PO TID Pain #90 caps 07/30/24 08/02/24 Rx
insulin aspart U-100 100 unit/mL 4 unit (0.04 mL) SC AC Diabetes 07/30/24 08/02/24 Rx
(3 mL) subcutaneous pen #15 mL
ketoconazole 2 % topical cream 1 applic topical BID #60 grams 07/30/24 08/02/24 Rx
losartan 50 mg tablet 50 mg PO BID #60 tabs 07/30/24 08/02/24 Rx
metoprolol tartrate 100 mg tablet 100 mg PO BID #60 tabs 07/30/24 08/02/24 Rx
nifedipine 60 mg tablet,extended 60 mg PO BID #60 tabs 07/30/24 08/02/24 Rx
release
rosuvastatin 40 mg tablet (Crestor) 40 mg PO DAILY #30 tabs 07/30/24 08/02/24 Rx
spironolactone 25 mg tablet 25 mg PO DAILY Blood pressure #30 07/30/24 08/02/24 Rx
tabs
tramadol 50 mg tablet 50 mg PO Q6HPRN PRN moderate pain 07/30/24 08/02/24 Rx
#30 tabs
Review of Systems
-
History Source: Patient
Constitutional: Other (fatigue, lightheadedness, weakness)
A 10 point review of systems was completed, and was negative except as per HPI.
Physical Exam
Vital Signs
Temp 100.6 F H 08/02/24 09:25
Pulse 90 08/02/24 10:10
Resp Rate 20 08/02/24 09:25
Blood pressure 147/67 08/02/24 10:10
SaO2 99 08/02/24 10:59
08/01/24 08/02/24 08/03/24
06:59 06:59 06:59
Actual Weight 87.2 kg 87.175 kg
Body Mass Index (BMI) 31.0
Lab Results / Allergies
11/08/24 02:30
08/02/24 02:30
WBC 11.0 10^3/uL (4.8-10.8) H 08/02/24 02:30
Hgb 8.7 g/dL (12.0-16.0) L 08/02/24 02:30
Hct 26.9 % (37.0-47.0) L 08/02/24 02:30
Plt Count 250 10^3/uL (130-400) 08/02/24 02:30
Abs Immat Gran (auto) 0.1 10^3/uL (0-0.05) H 08/02/24 02:30
Neutrophils % 80.7 % (42.2-75.2) H 08/02/24 02:30
Allergy/AdvReac Type Severity Reaction Status Date / Time
diphtheria, pertussis, Allergy Unknown Verified 08/02/24 02:16
tetanus vacc
gentamicin Allergy Hearing Verified 08/02/24 02:16
loss
Physical Exam
General: Well Developed and No Apparent Distress
GI: Soft, Non Tender, Non Distended and Other (JODIE drain serous)
Neuro: AO x 3
Psych: Calm
Data Reviewed
-
Radiology: Report Reviewed by me
Labs: Labs Reviewed by me and Discussed with Physician
Old Records: Reviewed
Assessment / Plan
-
58-year-old female with a history of acute sigmoid diverticulitis status post exploratory laparotomy with Barbour's resection and colostomy with subsequent intra-abdominal abscess development and left upper quadrant splenic hematoma with midline IR
drain in place, presents with an episode of lightheadedness and fall with a fever in the ER
Plan:
-Fever workup per hospitalist
-Will need IR drain flushed twice daily
-Okay for regular diet
-No plans for surgery at this time
[2024-08-02 14:52] LABS: Glucose - Point of Care 176 mg/dl (70-99)
--- NOTE | 2024-08-02 15:03 | CM ---
Patient seen at bedside with son Anshul
Dx: weakness with fall at home
CXR, Knee xray today
Patient was discharged from on 07/31 with [facility]
Lives in a 2 story home with son, 1 step to enter, 2nd floor bed & bath
Son states home under construction and patient now resides on 1st floor
PLOF: ambulating with walker
DME: chair lift, walker, commode
PT/OT to eval - Patient adamantly declines going to SNF
PCP: Jesus Hughes
Pharmacy: [facility]
PLAN: Await PT/OT eval for rec.
--- NOTE | 2024-08-02 15:34 | VNURNOTE ---
Chart reviewed. Patient is current with [facility] nursing. Will continue to follow hospital course and DC plans.
[2024-08-02 15:54] LABS: COVID-19 Antigen Negative (Negative)
[2024-08-02] MEDS: NOVOLOG FLEXPEN SC (16:27)
[2024-08-02] MEDS: LOVENOX 40 MG SC (17:05)
[2024-08-02 17:17] LABS: Urine Albumin 1+ (Neg - Trace); Urine Bilirubin Negative (Negative); Urine Character Clear (Clear); Urine Color Yellow; Urine Glucose 3+ (Negative); Urine Ketone Negative (Negative); Urine Leukocyte Negative (Negative); Urine Nitrite Negative (Negative); Urine Occult Blood Negative (Negative); Urine Specific Gravity 1.015 (<1.030); Urine Urobilinogen Negative (Neg - 1+)
[2024-08-02 17:27] LABS: Urine Squamous Cell 21-25 /LPF (Few)
[2024-08-02 17:28] LABS: Urine Bacteria Moderate (Negative); Urine Red Blood Cell 0-2 /HPF (0-2)
--- NOTE | 2024-08-02 17:56 | CON.ID ---
Consultation
-
Date/Time Consultation Requested: 08/02/2024 1353
Date/Time Consultation Performed: 08/02/2024 1750
Requesting Provider: Dr. Meade
Performing Provider: Dr. Santamaria
Reason for Consultation: Fever; Hx abdominal abscess
Chief Complaint / Past History
History of Present Illness
Bella Mendoza is a 58-year-old female being evaluated at the request of Dr. Meade regarding fever and history of abdominal abscess. History is obtained from chart review, along with patient interview. Additional history was obtained from a review of
old records contained in the hospital EMR system, along with history from the patient's son who is at the bedside.
TThe patient is known to me from a prior admission dated 05/20/2024. At that point in time she had complained of abdominal discomfort was found to have acute diverticulitis with a small area of perforation. Ultimately she underwent a Barbour's
procedure. Surgery was complicated by a splenic capsular tear and development of hematoma. Ultimately, she had ongoing leukocytosis, and was found to have an anterior abdominal collection, along with an infected splenic hematoma, both with ESBL E.
coli. She has had multiple drains placed in the abdomen, and was recently discharged to home on 07/31 following upsizing of her anterior abdominal drain.
Per the son, the patient was going to the bathroom last evening, and felt weak. He reports that her legs gave out and she fell forward. She reports that she struck her head on the floor. EMS was called, and the patient was emergently transported
to the hospital. Here, workup has revealed a low-grade leukocytosis, and she has had a low-grade temperature recorded. She otherwise feels well. She notes ongoing drainage of purulent material from her anterior abdominal drain. She denies any
significant abdominal discomfort at present.
Past History
Additional Past Medical History:
HTN
DM
Hx breast CA
Hx endometrial CA
Diverticulitis
Additional Past Surgical History:
Bilateral mastectomy
Hysterectomy
x 2
Diverting colostomy
Allergy History:
diphtheria, pertussis, tetanus vacc Allergy (Verified 08/02/24 02:16)
Unknown
gentamicin Allergy (Verified 08/02/24 02:16)
Hearing loss
Medications Reviewed: Yes
Current Antibiotics:
None
Social History
Tobacco: Non-Smoker
Alcohol: None
Drug: None
Personal: Single
Living: With Family
Employment: Retired
Family History
Family History: Not Pertinent
Review of Systems
Vital Signs
Temp Pulse Resp BP Pulse Ox
100.3 F 97 18 112/58 97
08/02/24 15:35 08/02/24 15:35 08/02/24 15:35 08/02/24 15:35 08/02/24 15:35
Physical Exam
Physical Exam
Constitutional: No Acute Distress, Comfortable, Non-toxic and Obese
Head: Normocephalic
Eyes: Pupils Equal, Pupils Round, No Conjunctival Hemorrhage and Sclera Anicteric
Oral: No Thrush and No Ulcers
Cardiovascular: Regular Rate and S1/S2; Negative S3/S4
Pulmonary: Clear; Negative Wheezes, Rales or Rhonchi
Gastrointestinal: Soft, Non Distended, Normal Bowel Sounds and Other (Anterior JODIE with seropurulent fluid. Ostomy in place.)
Genito-Urinary: Negative Ontiveros
Extremities: Edema; Negative Cyanosis or Erythema
Skin: Warm and Dry; Negative Rash or Jaundice
Neurological: Awake and Alert
Psychological: Calm
.
Lab / Diagnostic Study Results
08/02/24 02:30
08/02/24 02:30
Abs Immat Gran (auto) 0.1 10^3/uL (0-0.05) H 08/02/24 02:30
Absolute Neuts (auto) 8.9 10^3/uL (1.4-6.5) H 08/02/24 02:30
Absolute Lymphs (auto) 0.9 10^3/uL (1.2-3.4) L 08/02/24 02:30
Absolute Monos (auto) 1.1 10^3/uL (0.1-0.6) H 08/02/24 02:30
Absolute Basos (auto) 0.1 10^3/uL (0-0.2) 08/02/24 02:30
Immature Gran % 0.6 % (0-0.5) H 08/02/24 02:30
Neutrophils % 80.7 % (42.2-75.2) H 08/02/24 02:30
Lymphocytes % 8.2 % (20.5-51.1) L 08/02/24 02:30
Monocytes % 9.9 % (1.7-9.3) H 08/02/24 02:30
Eosinophils % 0.1 % (0-6) 08/02/24 02:30
Basophils % 0.5 % (0-2) 08/02/24 02:30
Ur Squamous Epith Cells 21-25 /LPF (Few) 08/02/24 17:08
Microbiology Results
Micro:
08/02/24 17:08 Urine Culture - Pending
Urine
08/02/24 15:55 Influenza Types A & B (HANH) - Final
Nasal Swab Negative for Influenza A & B, NAAT
Negative results must be combined with clinical observations
and patient history.
Nucleic Acid Amplification test (NAAT)performed on the
[employer] platform.
Imaging:
07/17/2024 CT abdomen/pelvis with contrast: Postoperative changes of a Caridad procedure noted. There is stable appearance of the right lower quadrant percutaneous drain with increased size of the gas and fluid containing collection in the mid
abdomen now measuring up to 10.2 cm whereas previously it was 8 cm. There is wall thickening of the adjacent bowel, likely reactive enteritis. Stable positioning of the left pigtail chest tube with small loculated pleural effusion on the catheter
tip measuring 5.4 x 7.4 cm please see full dictation for additional detail. Film personally viewed.
Assessment / Plan
S/p fall
Low-grade leukocytosis
Fevers
Anterior abdominal collection/abscess
- s/p drainage (06/10/24)
- prior cultures with Klebsiella pneumoniae and ESBL E. coli
- Abscess cultures 07/17: staph epi, strep species x 2. Growth of these organisms while on prolonged abx exposure would suggest limited penetration into the abscess.
Diverticulitis with diverticular perforation
- s/p diverting colostomy (05/22/2024).
- Intra-op splenic capsular tear with subsequent hematoma development
Hx LUQ infected hematoma
-s/p drain placement (06/14/24) - bloody
- Fluid cx: ESBL E. coli x2
- zosyn (05/19 to 05/31); Ertapenam (05/31 to 07/29)
- s/p drain removal 07/30/24
Recommendations:
At present, would continue to monitor off of antibiotics.
Follow white count and temperature curve.
Follow drain output.
[2024-08-02 18:02] LABS: Glucose - Point of Care 162 mg/dl (70-99)
[2024-08-02] MEDS: NOVOLOG FLEXPEN 4 UNITS SC (18:04)
[2024-08-02] MEDS: NOVOLOG FLEXPEN-LOW RESISTANCE 1 UNITS SC (18:04)
[2024-08-02] MEDS: DESENEX/MITRAZOL/ZEASORB 1 APPLIC TOPICAL (20:25)
[2024-08-02] MEDS: SANTYL OINTMENT 1 APPLIC TOPICAL (20:26)
[2024-08-02 21:38] LABS: Glucose - Point of Care 189 mg/dl (70-99)
[2024-08-03] MEDS: ULTRAM 50 MG PO ×4 (01:36→23:27)
[2024-08-03] MEDS: TYLENOL 650 MG PO ×3 (03:41→18:10)
[2024-08-03 05:18] LABS: Hematocrit 26.3 % (37.0-47.0); Mean Corp Hgb Conc. 30.4 g/dL (33.0-37.0); Mean Corpuscular Volume 85.4 fL (81.0-99.0); Mean Platelet Volume 11.6 fL (7.4-10.4); Platelet Count 224 10^3/uL (130-400); Red Blood Cell Count 3.08 10^6/uL (4.20-5.40); Red Cell Dist. Width 18.3 % (11.5-14.5); White Blood Cell Count 7.7 10^3/uL (4.8-10.8)
[2024-08-03 05:31] VITALS: BMI 30.8
[2024-08-03 05:40] LABS: Blood Urea Nitrogen 25 mg/dl (7-17); Carbon Dioxide 22 mmol/L (22-30); Chloride 100 mmol/L (98-107); Estimated Creatinine Clearance 83 ml/min; Glucose 137 mg/dl (70-99); Potassium 4.3 mmol/L (3.5-5.1); Sodium 136 mmol/L (135-145); eGFR > 60.00
--- NOTE | 2024-08-03 07:31 | CON.ID ---
Addendum entered and electronically signed by Gayle Low MD 08/04/24 10:43:
correction: please code as a progress note
Original Note:
Consultation
-
Date/Time Consultation Requested: 08/02/24 13:53
Date/Time Consultation Performed: 08/03/24 12:36
Requesting Provider: Dr Meade
Performing Provider: Dr Low
Reason for Consultation: fever
Chief Complaint / Past History
Chief Complaint
Weakness and fall
History of Present Illness
Ms Mendoza is a 58 year old female with recent history of perforated diverticulitis status post Barbour's resection/ostomy course was complicated by splenic capsular tear with hematoma and also multiple intraabdominal abscesses - s/p drainage. She
has had long courses of IV antibiotics with zosyn (05/19 to 05/31) and Ertapenam (05/31 to 07/29). The LUQ abscess appeared to have resolved on last assessment without fistula on catheter study with contrast injection 07/30 and this catheter was removed.
One week ago, on 07/27 the anterior abscess was evaluated and about 20 ccs of purulent material drained - it was not sent for culture. On 07/29 antibiotics were stopped and she was observed. Because she remained well, she was discharged. Then while
home she fell onto her reclining chair when she felt weak and her leg buckeled.
Since arrival here she has had intermittent fevers with overall downtrending fever curve 100.9 to 100.4, bp stable, HR normal, wbc was initially 11.0 but resolved today to 7.7 without additional antibiotics, hgb 8.0 similar to previous, plt 224,
there was L shift on arrival, cr 0.8, t bili 0.9, ast 21, alt 14, alk phos 69, ua no pyuria moderate bacteria, covid ag negtaive, influenza negative, CXR: likely focal atelectasis, bilateral knee xray: no deformity, peripheral vascular US: no dvt,
blood cultures x2 no growth to date, urine culture finalized negative, currently off of antibiotics.
Past History
Additional Past Medical History:
Reports HTN (Resistant hypertension on multi antihypertensives) and NIDDM
Chronic anemia
Chronic back pain
Additional Past Surgical History:
perforated sigmoid diverticulitis status post Caridad's resection and ostomy creation complicated by splenic capsular tear/hematoma
Allergy History:
diphtheria, pertussis, tetanus vacc Allergy (Verified 08/02/24 02:16)
Unknown
gentamicin Allergy (Verified 08/02/24 02:16)
Hearing loss
Medications Reviewed: Yes
Social History
Tobacco: Non-Smoker
Alcohol: None
Drug: None
Family History
Family History: Not Pertinent
Review of Systems
Review of Systems
General: Fever and Chills
All systems: All other systems were reviewed and were negative
Vital Signs
Temp Pulse Resp BP Pulse Ox
100.9 F H 76 16 100/53 98
08/02/24 23:17 08/02/24 23:17 08/02/24 23:17 08/02/24 23:17 08/02/24 23:17
Physical Exam
Physical Exam
Constitutional: No Acute Distress and Chronically Ill
Cardiovascular: Regular Rate and S1/S2; Negative Murmur or Rub
Pulmonary: Clear and Symmetric; Negative Wheezes, Rales or Rhonchi
Gastrointestinal: Soft, Non Tender, Non Distended and Normal Bowel Sounds
Skin: Warm and Dry; Negative Rash or Jaundice
Lines: Other (drain scant purulent fluid)
Lab / Diagnostic Study Results
08/03/24 04:44
08/03/24 04:44
Abs Immat Gran (auto) 0.1 10^3/uL (0-0.05) H 08/02/24 02:30
Absolute Neuts (auto) 8.9 10^3/uL (1.4-6.5) H 08/02/24 02:30
Absolute Lymphs (auto) 0.9 10^3/uL (1.2-3.4) L 08/02/24 02:30
Absolute Monos (auto) 1.1 10^3/uL (0.1-0.6) H 08/02/24 02:30
Absolute Basos (auto) 0.1 10^3/uL (0-0.2) 08/02/24 02:30
Immature Gran % 0.6 % (0-0.5) H 08/02/24 02:30
Neutrophils % 80.7 % (42.2-75.2) H 08/02/24 02:30
Lymphocytes % 8.2 % (20.5-51.1) L 08/02/24 02:30
Monocytes % 9.9 % (1.7-9.3) H 08/02/24 02:30
Eosinophils % 0.1 % (0-6) 08/02/24 02:30
Basophils % 0.5 % (0-2) 08/02/24 02:30
Ur Squamous Epith Cells 21-25 /LPF (Few) 08/02/24 17:08
Microbiology Results
Micro:
08/03/24 05:41 Blood Culture - Pending
Blood/Venous
08/03/24 04:44 Blood Culture - Pending
Blood/Venous
08/02/24 17:08 Urine Culture - Pending
Urine
08/02/24 15:55 Influenza Types A & B (HANH) - Final
Nasal Swab Negative for Influenza A & B, NAAT
Negative results must be combined with clinical observations
and patient history.
Nucleic Acid Amplification test (NAAT)performed on the
[employer] platform.
Imaging:
07/17/2024 CT abdomen/pelvis with contrast: Postoperative changes of a Caridad procedure noted. There is stable appearance of the right lower quadrant percutaneous drain with increased size of the gas and fluid containing collection in the mid
abdomen now measuring up to 10.2 cm whereas previously it was 8 cm. There is wall thickening of the adjacent bowel, likely reactive enteritis. Stable positioning of the left pigtail chest tube with small loculated pleural effusion on the catheter
tip measuring 5.4 x 7.4 cm please see full dictation for additional detail. Film personally viewed.
Assessment / Plan
Fevers
Low-grade leukocytosis
Anterior abdominal collection/abscess
- s/p drain placement (06/10/24) and recent upsizing of drain (07/27/24)
- prior cultures with Klebsiella pneumoniae and ESBL E. coli
- Abscess cultures 07/17: staph epi, strep species x 2
Diverticulitis with diverticular perforation - resolved
- s/p diverting colostomy (05/22/2024).
- Intra-op splenic capsular tear with subsequent hematoma development
Hx LUQ infected hematoma - resolved
Recommendations:
At present, would continue to monitor off of antibiotics - abdominal abscess may be controlled by drain
Agree with checking for DVT, note atelectasis
Follow white count and temperature curve.
Follow drain output.
Care Review
Plan reviewed with: Physician (Dr Meade - observe clinically)
[2024-08-03 07:55] VITALS: BP 102/65
[2024-08-03 08:46] LABS: Glucose - Point of Care 106 mg/dl (70-99)
[2024-08-03] MEDS: NOVOLOG FLEXPEN-LOW RESISTANCE SC (09:01)
[2024-08-03] MEDS: LOPRESSOR 100 MG PO ×2 (09:29→19:24)
[2024-08-03] MEDS: CRESTOR 40 MG PO (09:29)
[2024-08-03] MEDS: ALDACTONE 25 MG PO (09:29)
[2024-08-03] MEDS: FARXIGA 5 MG PO (09:29)
[2024-08-03] MEDS: PROCARDIA XL (EXTENDED RELEASE) 60 MG PO (09:29)
[2024-08-03] MEDS: NEURONTIN 100 MG PO ×3 (09:29→22:39)
[2024-08-03] MEDS: LOW STRENGTH ASPIRIN 81 MG PO (09:29)
[2024-08-03] MEDS: FEOSOL 325 MG PO (09:29)
[2024-08-03] MEDS: NOVOLOG FLEXPEN 4 UNITS SC ×3 (09:30→17:05)
[2024-08-03] MEDS: COZAAR 50 MG PO ×2 (09:30→19:25)
[2024-08-03] MEDS: DESENEX/MITRAZOL/ZEASORB 1 APPLIC TOPICAL ×2 (09:33→19:25)
[2024-08-03] MEDS: NIZORAL 2% CREAM 1 APPLIC TOPICAL ×2 (09:44→19:26)
--- NOTE | 2024-08-03 12:04 | W.PN.HOSP.TC ---
Today's Communication/Plan
-
venous Doppler
start IS for atelectasis
monitor cultures
follow ID/surgical recs
ongoing rehab
Assessment / Plan
Assessment / Plan
Assessment:
Weakness fall, suspected orthostasis from duplication of meds/stacking of BP meds
Hx of Multidrug-resistant hypertension
- took Amlodipine in addition to prescribed Nifedipine, also took AM Aldactone at night
- s/p 1 L IVF
- follow orthostatics/PT
- continue Metoprolol 100mg BID
- continue Losartan 50mg BID
- continue Nifedipine 60mg BID
- continue Aldactone 25mg in AM only
Fever/leukocytosis
- routine infectious workup sent -> covid/flu negative. UA negative. Bcx pending.
- CXR with atelectasis which can cause fevers - IS ordered
- with prolonged recent immobility, check Venous dopplers
- ID following; off Abx for now
Recent hx of perforated sigmoid diverticulitis s/p Caridad's resection/ostomy creation complicated by splenic capsular tear/hematoma and RLQ fluid collection/anterior abdominal fluid collection with drains. Patient also had septic shock and
bacteroids bacteremia.
Sepsis POA due to fever, tachycardia
- CRS/ID consults appreciated
- s/p recent admission with upsizing of RLQ drain and removal of LUQ drain
- Ertapenem stopped last admission; remains off at this time
- no role for surgery or IR manipulations of drains per CRS
- continue daily flushes
- pain control, anti-emetics
Hx of L pleural effusion s/p chest tube with thrombolytics
- CXR without effusions now
Acute on chronic anemia
Hx of RENY
- iron studies c/w chronic inflammation last admission
- follow Hb, 8.0
Hyperlipidemia
- continue statin
Diabetes
- hemoglobin A1c 7.4 recently
- hold Mounjaro; Su. continue Farxiga
- continue SSI
- continue NovoLog
Coarctation of aorta with history of prior aortic stenting
- continue Aspirin
Obesity
Patient has stage 3 lower sacral pressure injury with large area of fungal rash around it
- discussed with the patient regarding offloading and also about diet.
- wound care following; Santyl planned
History of breast cancer status post mastectomy and chemo
History of endometrial cancer status post hysterectomy
DVT prophylaxis: Lovenox
Code: Full
Anticipated Discharge: 24 - 48 hours
Subjective/Interval History
-
Date of Service: August 03, 2024
reports R knee pain from her fall at home
no new complaints
Tmax 100.9 last evening
Objective Data
-
Labs:
Laboratory Results
08/03/24
04:44
WBC 7.7
Hgb 8.0 L
Hct 26.3 L
Plt Count 224
Sodium 136
Potassium 4.3
Chloride 100
Carbon Dioxide 22
BUN 25 H
Creatinine 0.8
Glucose 137 H
Calcium 9.0
Vital Signs:
Vital Signs
Temp Pulse Resp BP Pulse Ox
99.4 F 87 18 102/65 94
08/03/24 07:55 08/03/24 09:29 08/03/24 07:55 08/03/24 09:30 08/03/24 07:55
I&O
08/02/24 08/03/24 08/04/24
06:59 06:59 06:59
Intake Total 250 / 250
Output Total 287 / 287
Balance -37 / -37 -15 / -15
Physical Exam
-
General: No Apparent Distress
HEENT: Normocephalic and Atraumatic
Respiratory: Negative Wheezes
Cardiac: Regular Rhythm
GI: Soft and Other (RLQ drain)
Genito-urinary: No Costovertebral Tender
Neuro: AO x 3
Hematologic / Lymphatic: No Lymphadenopathy
Psych: Calm
Data Reviewed
-
Total Time Spent with Patient (in minutes): 41
Labs: Labs Reviewed by me
[2024-08-03] MEDS: SANTYL OINTMENT 1 APPLIC TOPICAL ×2 (12:13→19:26)
[2024-08-03 12:32] LABS: Glucose - Point of Care 193 mg/dl (70-99)
[2024-08-03] MEDS: NOVOLOG FLEXPEN-LOW RESISTANCE 1 UNITS SC ×2 (12:33→17:05)
[2024-08-03 16:00] VITALS: BP 94/55
[2024-08-03] MEDS: LOVENOX 40 MG SC (17:00)
[2024-08-03 17:04] LABS: Glucose - Point of Care 151 mg/dl (70-99)
[2024-08-03 17:22] VITALS: BMI 30.8
[2024-08-03] MEDS: PROCARDIA XL (EXTENDED RELEASE) PO (19:23)
[2024-08-03 21:50] LABS: Glucose - Point of Care 186 mg/dl (70-99)
[2024-08-03 23:00] VITALS: BP 111/56
[2024-08-04] VITALS (8 sets, daily range): BP systolic 102–122; BP diastolic 54–65; BMI 30.7
[2024-08-04] MEDS: TYLENOL 650 MG PO ×3 (02:47→22:14)
[2024-08-04 05:34] LABS: Hematocrit 21.7 % (37.0-47.0); Hemoglobin 6.7 g/dL (12.0-16.0); Mean Corp Hgb Conc. 30.9 g/dL (33.0-37.0); Mean Corpuscular Hgb 26.1 pg (27.0-31.0); Mean Corpuscular Volume 84.4 fL (81.0-99.0); Mean Platelet Volume 11.4 fL (7.4-10.4); Platelet Count 181 10^3/uL (130-400); Red Blood Cell Count 2.57 10^6/uL (4.20-5.40); Red Cell Dist. Width 18.2 % (11.5-14.5); White Blood Cell Count 7.2 10^3/uL (4.8-10.8)
[2024-08-04 05:38] LABS: Blood Urea Nitrogen 26 mg/dl (7-17); Calcium 8.4 mg/dl (8.4-10.2); Carbon Dioxide 22 mmol/L (22-30); Chloride 100 mmol/L (98-107); Estimated Creatinine Clearance 83 ml/min; Glucose 102 mg/dl (70-99); Sodium 133 mmol/L (135-145); eGFR > 60.00
--- NOTE | 2024-08-04 05:47 | PTCARENOTE ---
Addendum entered by Vitor Covarrubias RN 08/04/24 05:51:
Order to repeat lab draw.
Original Note:
Lab called with Hgb of 6.7. VSS. No signs of bleeding or distress. Advised covering provider YIFAN Cook.
[2024-08-04 06:19] LABS: Hematocrit 22.1 % (37.0-47.0); Hemoglobin 7.1 g/dL (12.0-16.0); Mean Corp Hgb Conc. 32.1 g/dL (33.0-37.0); Mean Corpuscular Hgb 26.3 pg (27.0-31.0); Mean Corpuscular Volume 81.9 fL (81.0-99.0); Mean Platelet Volume 11.9 fL (7.4-10.4); Platelet Count 204 10^3/uL (130-400); Red Cell Dist. Width 18.2 % (11.5-14.5); White Blood Cell Count 7.5 10^3/uL (4.8-10.8)
[2024-08-04 07:15] LABS: Glucose - Point of Care 131 mg/dl (70-99)
[2024-08-04] MEDS: ALDACTONE 25 MG PO (08:18)
[2024-08-04] MEDS: LOPRESSOR 100 MG PO ×2 (08:18→22:05)
[2024-08-04] MEDS: PROCARDIA XL (EXTENDED RELEASE) 60 MG PO ×2 (08:18→22:05)
[2024-08-04] MEDS: COZAAR 50 MG PO ×2 (08:19→22:06)
[2024-08-04] MEDS: LOW STRENGTH ASPIRIN 81 MG PO (08:19)
[2024-08-04] MEDS: CRESTOR 40 MG PO (08:19)
[2024-08-04] MEDS: NOVOLOG FLEXPEN-LOW RESISTANCE SC ×2 (08:20→17:49)
[2024-08-04] MEDS: SANTYL OINTMENT 1 APPLIC TOPICAL ×2 (08:20→22:06)
[2024-08-04] MEDS: NEURONTIN 100 MG PO ×3 (08:20→22:06)
[2024-08-04] MEDS: NOVOLOG FLEXPEN 4 UNITS SC ×2 (08:20→12:42)
[2024-08-04] MEDS: FARXIGA 5 MG PO (08:20)
[2024-08-04] MEDS: FEOSOL 325 MG PO (08:20)
[2024-08-04] MEDS: DESENEX/MITRAZOL/ZEASORB 1 APPLIC TOPICAL ×2 (08:23→22:06)
[2024-08-04] MEDS: NIZORAL 2% CREAM 1 APPLIC TOPICAL ×2 (08:24→22:07)
[2024-08-04 11:58] LABS: Glucose - Point of Care 215 mg/dl (70-99)
[2024-08-04] MEDS: NOVOLOG FLEXPEN-LOW RESISTANCE 2 UNITS SC (12:43)
[2024-08-04] MEDS: ULTRAM 50 MG PO ×2 (12:56→19:19)
[2024-08-04 13:06] LABS: Urine Albumin Trace (Neg - Trace); Urine Bilirubin Negative (Negative); Urine Character Clear (Clear); Urine Color Yellow; Urine Glucose 2+ (Negative); Urine Ketone Negative (Negative); Urine Leukocyte Trace (Negative); Urine Nitrite Negative (Negative); Urine Occult Blood Negative (Negative); Urine Specific Gravity 1.005 (<1.030); Urine Urobilinogen Negative (Neg - 1+)
[2024-08-04 13:25] LABS: Urine Squamous Cell >30 /LPF (Few)
[2024-08-04 13:26] LABS: Urine Urothelial Cell 16-20 /LPF (FEW)
[2024-08-04 13:27] LABS: Urine Bacteria Moderate (Negative); Urine White Cell 21-25 /HPF (0-5); Urine Yeast Few (Negative)
--- NOTE | 2024-08-04 13:55 | W.PN.HOSP.TC ---
Today's Communication/Plan
-
monitor T curve
provide 1 U PRBC
continue pt/ot
continue ortho vitals check
Assessment / Plan
Assessment / Plan
Weakness fall, suspected orthostasis from duplication of meds/stacking of BP meds
Hx of Multidrug-resistant hypertension
- took Amlodipine in addition to prescribed Nifedipine, also took AM Aldactone at night before coming in
- s/p 1 L IVF
- continue Metoprolol 100mg BID
- continue Losartan 50mg BID
- continue Nifedipine 60mg BID
- continue Aldactone 25mg in AM only
Fever/leukocytosis
- routine infectious workup sent -> COVID/flu negative. UA negative. Bcx neg
- CXR with atelectasis which can cause fevers - IS ordered
- Venous Doppler neg.
- ID following; off Abx for now
Chronic anemia
- Hbg trended down to 7.1, likely dilutional component
- no overt blood loss, check ostomy stool for occult blood
- provide 1 U PRBC
Recent hx of perforated sigmoid diverticulitis s/p Caridad's resection/ostomy creation complicated by splenic capsular tear/hematoma and RLQ fluid collection/anterior abdominal fluid collection with drains. Patient also had septic shock and
bacteroids bacteremia.
Sepsis POA due to fever, tachycardia
- CRS/ID consults appreciated
- s/p recent admission with upsizing of RLQ drain and removal of LUQ drain
- Ertapenem stopped last admission; remains off at this time
- no role for surgery or IR manipulations of drains per CRS
- continue daily flushes
- pain control, anti-emetics
Hx of L pleural effusion s/p chest tube with thrombolytics
- CXR without effusions now
Acute on chronic anemia
Hx of RENY
- iron studies c/w chronic inflammation last admission
- follow Hb, 8.0
Hyperlipidemia
- continue statin
Diabetes
- hemoglobin A1c 7.4 recently
- hold Yovani Blue. continue Farxiga
- continue SSI
- continue NovoLog
Coarctation of aorta with history of prior aortic stenting
- continue Aspirin
Obesity
Patient has stage 3 lower sacral pressure injury with large area of fungal rash around it
- discussed with the patient regarding offloading and also about diet.
- wound care following; Santyl planned
History of breast cancer status post mastectomy and chemo
History of endometrial cancer status post hysterectomy
DVT prophylaxis: Lovenox
Code: Full
Total time spent : 52 mins
Anticipated Discharge: 24 - 48 hours
Subjective/Interval History
-
Date of Service: August 04, 2024
Having some sacral decubitus ulcer pain as patient required to sit up in bed
Afebrile in the night
Abdominal pain/nausea/vomiting
Objective Data
-
Labs:
Laboratory Results
08/04/24 08/04/24
04:27 06:00
WBC 7.2 7.5
Hgb 6.7 L* 7.1 L
Hct 21.7 L 22.1 L
Plt Count 181 204
Sodium 133 L
Potassium 4.0
Chloride 100
Carbon Dioxide 22
BUN 26 H
Creatinine 0.8
Glucose 102 H
Calcium 8.4
Vital Signs:
Vital Signs
Temp Pulse Resp BP Pulse Ox
99.5 F 89 16 121/65 96
08/04/24 07:00 08/04/24 08:19 08/04/24 07:00 08/04/24 08:19 08/04/24 07:00
I&O
08/03/24 08/04/24 08/05/24
06:59 06:59 06:59
Intake Total 250 / 250 980 / 980
Output Total 287 / 287 245 / 245
Balance -37 / -37 735 / 735
Review of Systems
-
Respiratory: Reports No Symptoms
Cardiac: Reports No Symptoms
Abdomen/GI: Denies Abdominal Pain, Nausea or Vomiting
Physical Exam
-
General: No Apparent Distress and Comfortable
HEENT: Negative Oxygen
Respiratory: Clear to Auscultation
Cardiac: Regular Rhythm and S1/S2; Negative Murmur or Rub
GI: Soft and Other (Midline JODIE drain in place); Negative Tender
Musculoskeletal: No Edema
Neuro: Awake, Alert, Oriented, No Motor Deficits and Nonfocal/Grossly Intact
Psych: Calm
[2024-08-04] MEDS: Pyridium 200 MG PO ×2 (16:21→22:06)
[2024-08-04] MEDS: LOVENOX 40 MG SC (17:31)
[2024-08-04] MEDS: NOVOLOG FLEXPEN SC (17:49)
[2024-08-04 18:19] LABS: Glucose - Point of Care 195 mg/dl (70-99)
[2024-08-04 21:58] LABS: Glucose - Point of Care 134 mg/dl (70-99)
[2024-08-05] MEDS: ULTRAM 50 MG PO ×2 (03:27→14:16)
[2024-08-05 05:47] LABS: Hematocrit 26.9 % (37.0-47.0); Hemoglobin 8.4 g/dL (12.0-16.0); Mean Corp Hgb Conc. 31.2 g/dL (33.0-37.0); Mean Corpuscular Hgb 26.6 pg (27.0-31.0); Mean Corpuscular Volume 85.1 fL (81.0-99.0); Mean Platelet Volume 12.1 fL (7.4-10.4); Platelet Count 201 10^3/uL (130-400); Red Blood Cell Count 3.16 10^6/uL (4.20-5.40); Red Cell Dist. Width 17.4 % (11.5-14.5); White Blood Cell Count 6.4 10^3/uL (4.8-10.8)
[2024-08-05 06:00] VITALS: BMI 30.6
[2024-08-05 06:09] LABS: Blood Urea Nitrogen 21 mg/dl (7-17); Calcium 8.7 mg/dl (8.4-10.2); Carbon Dioxide 24 mmol/L (22-30); Chloride 104 mmol/L (98-107); Estimated Creatinine Clearance 94 ml/min; Glucose 141 mg/dl (70-99); Potassium 4.1 mmol/L (3.5-5.1); Sodium 138 mmol/L (135-145); eGFR > 60.00
[2024-08-05] MEDS: FARXIGA 5 MG PO (07:49)
[2024-08-05 07:50] VITALS: BP 112/62
[2024-08-05] MEDS: NEURONTIN 100 MG PO ×3 (07:50→21:37)
[2024-08-05] MEDS: CRESTOR 40 MG PO (07:50)
[2024-08-05] MEDS: LOW STRENGTH ASPIRIN 81 MG PO (07:50)
[2024-08-05] MEDS: Pyridium 200 MG PO ×3 (07:50→21:37)
[2024-08-05] MEDS: FEOSOL 325 MG PO (07:50)
[2024-08-05] MEDS: SANTYL OINTMENT 1 APPLIC TOPICAL ×2 (07:51→21:37)
[2024-08-05] MEDS: NIZORAL 2% CREAM 1 APPLIC TOPICAL ×2 (07:56→21:38)
[2024-08-05] MEDS: DESENEX/MITRAZOL/ZEASORB 1 APPLIC TOPICAL ×2 (07:56→21:37)
[2024-08-05] MEDS: PROCARDIA XL (EXTENDED RELEASE) 60 MG PO ×2 (08:02→21:37)
[2024-08-05] MEDS: ALDACTONE 25 MG PO (08:08)
[2024-08-05] MEDS: LOPRESSOR 100 MG PO ×2 (08:08→21:37)
[2024-08-05] MEDS: COZAAR 50 MG PO ×2 (08:09→21:37)
[2024-08-05] MEDS: TYLENOL 650 MG PO ×3 (08:09→21:35)
[2024-08-05] MEDS: NOVOLOG FLEXPEN-LOW RESISTANCE SC (08:13)
[2024-08-05] MEDS: NOVOLOG FLEXPEN 4 UNITS SC ×3 (08:13→17:15)
[2024-08-05 08:18] LABS: Glucose - Point of Care 133 mg/dl (70-99)
--- NOTE | 2024-08-05 09:02 | W.PN.CRS1 ---
Today's Communication / Plan
-
Disposition per hospitalist.
Assessment/Plan
-
Patient with history of Caridad's complicated by abdominal abscess(es).
1. stable off antibotics. ID input appreciated.
2. continue drain flushes.
3. disposition per hospitalist.
Subjective Data
Subjective Data
Date of Service: August 05, 2024
No complaints.
Objective Data
-
Vital Signs
Temp Pulse Resp BP Pulse Ox
99.9 F 84 16 112/62 93
08/05/24 07:50 08/05/24 08:09 08/05/24 07:50 08/05/24 08:09 08/05/24 07:50
Intake & Output
08/04/24 08/05/24 08/06/24
06:59 06:59 06:59
Intake Total 980 / 980 960 / 960
Output Total 245 / 245
Balance 735 / 735 945 / 945
Intake:
Oral fluids 960 / 960 300 / 300
IV fluids (Total)
Amount instilled into Drain (
Total)
Right Jeremi-Luevano
Blood products 370 / 370
Blood Product Amount Infused ( 250 / 250
mL)
Packed Rbc Leukoreduced Unit 250 / 250
[id number]
Output:
Liquid stool amount 225 / 225
Colostomy 225 / 225
Drain Output (Total)
Right Jeremi-Luevano
Other:
Number of approximated SMALL 1
amounts of urine
Number of approximated MODERATE 3
amounts of urine
Number of approximated LARGE 2
amounts of urine
How many times incontinent 1
MODERATE amount urine
Lab Results
08/05/24 04:58
08/05/24 04:58
Physical Exam
-
General: No Acute Distress
Chest: Clear
Cardiovascular: Regular Rate & Rhythm
Abdomen: Non Distended, Non Tender and Other (stoma viable with output; IR drain with light yellow output)
--- NOTE | 2024-08-05 09:27 | PHA.VAN.IN ---
Assessment
- Assessment
Renal Function: Appears similar to baseline
Renal Function may be Overestimated due to: BMI 30
AUC Dosing Plan
- Dosing Variables
Dosing Weight (kg): 86
Dosing CrCl (ml/min): 95
Vd coefficient (L/kg): 0.7
- Empiric Dosing
Initial / Loading Dose: 1250 mg x 1
Maintenance Regimen: 1250 mg q12h
Estimated AUC (mcg*h/mL): 530 (based on Vd 0.7)
Estimated Peak (mcg*h/mL): 32.9
Estimated Trough (mcg/ml): 13.7
Estimated Half Life (H): 8.3
- Monitoring
Peak level is ordered to be drawn (date/time): 08/06/24 2100
Trough level is ordered to be drawn (date/time): 08/07/24 0530
Levels to be Drawn after Dose #: 4 (ordering levels after 4th dose to check for accumulation)
Pharmacokinetics Vancomycin I
- -
Patient Age: 58
Patient Sex: Female
Vancomycin Day #: 1
Indication: Bacteremia
Requesting Provider: Maranda
Pertinent Antimicrobial Allergies:
diptheria, pertussis, tetanus vaccine; gentamicin (hearing loss)
Height / Weight:
Height 5 ft 6 in
Actual Weight 85.956 kg
Pertinent Past Medical History: BMI ~30
- Vital Signs / Lab Results
Temp Pulse Resp BP Pulse Ox
99.9 F 84 16 112/62 93
08/05/24 07:50 08/05/24 08:09 08/05/24 07:50 08/05/24 08:09 08/05/24 07:50
Lab Results - Hematology
08/03/24 08/04/24 08/04/24
04:44 04:27 06:00
WBC 7.7 7.2 7.5
08/05/24
04:58
WBC 6.4
Lab Results - Chemistry
08/03/24 08/04/24 08/05/24
04:44 04:27 04:58
BUN 25 H 26 H 21 H
Creatinine 0.8 0.8 0.7
Estimated Creat Clear 83 83 94
Lab Results - Urine
08/02/24 08/04/24
17:08 12:56
Urine Nitrite Negative
Urine Nitrite (Reflex) Negative
Ur Leukocyte Esterase Trace A
Leukocyte Esterase Rfl Negative
Urine WBC 21-25 A
Urine WBC (Reflex) 3-5
Ur Squamous Epith Cells 21-25 >30
Urine Bacteria Moderate A
Urine Bacteria (Reflex) Moderate A
Microbiology Results
08/03/24 04:44 Blood Culture - Preliminary
Blood/Venous Positive culture in progress
Gram Stain - Preliminary
08/03/24 05:41 Blood Culture - Preliminary
Blood/Venous No Growth in 48 hours- Final report to follow
08/02/24 17:08 Urine Culture - Final
Urine
[2024-08-05 11:40] LABS: Glucose - Point of Care 219 mg/dl (70-99)
[2024-08-05] MEDS: NOVOLOG FLEXPEN-LOW RESISTANCE 2 UNITS SC (11:49)
[2024-08-05] MEDS: VANCOCIN 275 MG IV ×2 (11:50→21:40)
--- NOTE | 2024-08-05 12:19 | CM ---
Patient seen at bedside. Son Anshul present.
Notified by UR that patient is now inpatient status - IMM explained & signed. In chart
PT recommend SNF
Patient is declining SNF - wants [facility] with [facility].
PLAN: TBD - depending patient progress - declining SNF
--- NOTE | 2024-08-05 13:48 | W.PN.HOSP.TC ---
Today's Communication/Plan
-
see note
Assessment / Plan
Assessment / Plan
Weakness fall, suspected orthostasis from duplication of meds/stacking of BP meds
Hx of Multidrug-resistant hypertension
- took Amlodipine in addition to prescribed Nifedipine, also took AM Aldactone at night before coming in
- s/p 1 L IVF
- continue Metoprolol 100mg BID
- continue Losartan 50mg BID
- continue Nifedipine 60mg BID
- continue Aldactone 25mg in AM only
Gram positive bacteremia
Fever/leukocytosis
- routine infectious workup sent -> COVID/flu negative. UA negative. Bcx neg
- CXR with atelectasis which can cause fevers - IS ordered
- Venous Doppler neg
- Blood cs one set growing gram positive cocci in clusters, repeat pending.
- ID help appreciated, has been started on vancomycin
Chronic anemia
- Hbg trended down to 7.1, likely dilutional component
- no overt blood loss,
- s/p 1 U PRBC. continue f/u Hbg level
Recent hx of perforated sigmoid diverticulitis s/p Caridad's resection/ostomy creation complicated by splenic capsular tear/hematoma and RLQ fluid collection/anterior abdominal fluid collection with drains. Patient also had septic shock and
bacteroids bacteremia.
Sepsis POA due to fever, tachycardia
- CRS/ID consults appreciated
- s/p recent admission with upsizing of RLQ drain and removal of LUQ drain
- Ertapenem stopped last admission; remains off at this time
- no role for surgery or IR manipulations of drains per CRS
- continue daily flushes
- pain control, anti-emetics
Hx of L pleural effusion s/p chest tube with thrombolytics
- CXR without effusions now
Acute on chronic anemia
Hx of RENY
- iron studies c/w chronic inflammation last admission
- follow Hb, 8.0
Hyperlipidemia
- continue statin
Diabetes
- hemoglobin A1c 7.4 recently
- hold Yovani Blue. continue Farxiga
- continue SSI
- continue NovoLog
Coarctation of aorta with history of prior aortic stenting
- continue Aspirin
Obesity
Patient has stage 3 lower sacral pressure injury with large area of fungal rash around it
- discussed with the patient regarding offloading and also about diet.
- wound care following; Santyl planned
History of breast cancer status post mastectomy and chemo
History of endometrial cancer status post hysterectomy
DVT prophylaxis: Lovenox
Code: Full
Total time spent : 51 mins
Anticipated Discharge: > 48 hours
Subjective/Interval History
-
Date of Service: August 05, 2024
denies abd pain
afebrile in night
Objective Data
-
Labs:
Laboratory Results
08/05/24
04:58
WBC 6.4
Hgb 8.4 L
Hct 26.9 L
Plt Count 201
Sodium 138
Potassium 4.1
Chloride 104
Carbon Dioxide 24
BUN 21 H
Creatinine 0.7
Glucose 141 H
Calcium 8.7
Vital Signs:
Vital Signs
Temp Pulse Resp BP Pulse Ox
99.9 F 84 16 112/62 93
08/05/24 07:50 08/05/24 08:09 08/05/24 07:50 08/05/24 08:09 08/05/24 07:50
I&O
08/04/24 08/05/24 08/06/24
06:59 06:59 06:59
Intake Total 980 / 980 960 / 960
Output Total 245 / 245 15 / 15
Balance 735 / 735 945 / 945
Review of Systems
-
Respiratory: Reports No Symptoms
Cardiac: Reports No Symptoms
Abdomen/GI: Reports No Symptoms
Physical Exam
-
General: No Apparent Distress and Comfortable
HEENT: Negative Oxygen
Respiratory: Clear to Auscultation
Cardiac: Regular Rhythm and S1/S2; Negative Murmur or Rub
GI: Soft, Nontender and Other (Midline scar, JODIE drain with purulent drainage )
Musculoskeletal: No Edema
Neuro: Awake, Alert, Oriented, No Motor Deficits and Nonfocal/Grossly Intact
Psych: Calm
[2024-08-05 15:00] VITALS: BP 119/62
[2024-08-05 15:34] VITALS: BP 119/62; PULSE 76
--- NOTE | 2024-08-05 15:35 | W.PN.ID1 ---
Date of Service
Date of Service: August 05, 2024
Today's Communication
Continue vanco for today.
Assessment / Plan
Fevers
Low-grade leukocytosis
- resolved
Anterior abdominal collection/abscess
- s/p drain placement (06/10/24) and recent upsizing of drain (07/27/24)
- prior cultures with Klebsiella pneumoniae and ESBL E. coli
- Abscess cultures 07/17: staph epi, strep species x 2
Diverticulitis with diverticular perforation - resolved
- s/p diverting colostomy (05/22/2024).
- Intra-op splenic capsular tear with subsequent hematoma development
Hx LUQ infected hematoma - resolved
Recommendations:
Single blood culture from admit with GPC-clusters.
Vanco previously started; will continue for now until further identification made of isolate. Suspect contamination, though.
Follow white count and temperature curve.
Follow drain output.
����������������������������������������������������������
Chief Complaint
-: Fever and Leukocytosis
Subjective / Review of Systems
Review of Systems: No Fever and No Chills
Vital Signs / Physical Exam
Vital Signs
Vital Signs
Temp Pulse Resp BP Pulse Ox
99.9 F 84 16 112/62 93
08/05/24 07:50 08/05/24 08:09 08/05/24 07:50 08/05/24 08:09 08/05/24 07:50
Physical Exam
Constitutional: No Acute Distress, Comfortable, Chronically Ill and Non-toxic
Eyes: Sclera Anicteric
Pulmonary: Non Labored
Gastrointestinal: Non Distended and Other (right anterior JODIE drain in place with scant seropurulent fluid)
Extremities: Negative Erythema
Neurological: Awake and Alert
Psychological: Calm
Objective Data
Lab Data
Lab Results
08/05/24 04:58
08/05/24 04:58
Estimated Creat Clear 94 ml/min 08/05/24 04:58
Total Bilirubin 0.9 mg/dl (0.2-1.3) 08/02/24 02:30
AST 21 U/L (14-36) 08/02/24 02:30
ALT 14 U/L (0-35) 08/02/24 02:30
Alkaline Phosphatase 69 U/L (38-126) 08/02/24 02:30
Most recent labs reviewed.
Micro Results:
08/05/24 08:58 Blood Culture - Pending
Blood/Venous
08/05/24 08:06 Blood Culture - Pending
Blood/Venous
08/03/24 04:44 Blood Culture - Preliminary
Blood/Venous Positive culture in progress
Gram Stain - Preliminary
08/03/24 05:41 Blood Culture - Preliminary
Blood/Venous No Growth in 48 hours- Final report to follow
08/02/24 17:08 Urine Culture - Final
Urine
08/02/24 15:55 Influenza Types A & B ([facility]AN[facility]) - Final
Nasal Swab Negative for Influenza A & B, NAAT
Negative results must be combined with clinical observations
and patient history.
Nucleic Acid Amplification test (NAAT)performed on the
[employer] platform.
Imaging:
07/17/2024 CT abdomen/pelvis with contrast: Postoperative changes of a Caridad procedure noted. There is stable appearance of the right lower quadrant percutaneous drain with increased size of the gas and fluid containing collection in the mid
abdomen now measuring up to 10.2 cm whereas previously it was 8 cm. There is wall thickening of the adjacent bowel, likely reactive enteritis. Stable positioning of the left pigtail chest tube with small loculated pleural effusion on the catheter
tip measuring 5.4 x 7.4 cm please see full dictation for additional detail. Film personally viewed.
[2024-08-05 15:36] VITALS: BP 119/62; PULSE 76
[2024-08-05] MEDS: LOVENOX 40 MG SC (17:11)
[2024-08-05] MEDS: NOVOLOG FLEXPEN-LOW RESISTANCE 1 UNITS SC (17:15)
[2024-08-05 17:16] LABS: Glucose - Point of Care 185 mg/dl (70-99)
[2024-08-05 21:23] LABS: Glucose - Point of Care 142 mg/dl (70-99)
[2024-08-05 21:34] VITALS: BP 138/69
[2024-08-05 23:33] VITALS: BP 96/62
[2024-08-06] MEDS: ULTRAM 50 MG PO ×3 (02:38→22:51)
[2024-08-06 05:10] VITALS: BMI 30.3
[2024-08-06] MEDS: VANCOCIN 275 MG IV (05:13)
[2024-08-06 08:00] VITALS: BP 125/76
[2024-08-06 08:30] LABS: Glucose - Point of Care 132 mg/dl (70-99)
[2024-08-06] MEDS: NOVOLOG FLEXPEN-LOW RESISTANCE SC ×2 (08:46→18:13)
[2024-08-06] MEDS: TYLENOL 650 MG PO ×2 (09:36→18:13)
[2024-08-06] MEDS: SANTYL OINTMENT 1 APPLIC TOPICAL ×2 (09:36→20:05)
[2024-08-06] MEDS: NEURONTIN 100 MG PO ×3 (09:37→22:51)
[2024-08-06] MEDS: LOW STRENGTH ASPIRIN 81 MG PO (09:37)
[2024-08-06] MEDS: PROCARDIA XL (EXTENDED RELEASE) 60 MG PO ×2 (09:37→20:05)
[2024-08-06] MEDS: LOPRESSOR 100 MG PO ×2 (09:37→20:05)
[2024-08-06] MEDS: CRESTOR 40 MG PO (09:37)
[2024-08-06] MEDS: FARXIGA 5 MG PO (09:37)
[2024-08-06] MEDS: ALDACTONE 25 MG PO (09:39)
[2024-08-06] MEDS: COZAAR 50 MG PO ×2 (09:39→20:05)
[2024-08-06] MEDS: FEOSOL 325 MG PO (09:39)
[2024-08-06] MEDS: DESENEX/MITRAZOL/ZEASORB 1 APPLIC TOPICAL ×2 (09:40→20:05)
[2024-08-06] MEDS: NOVOLOG FLEXPEN 4 UNITS SC ×3 (09:41→18:04)
[2024-08-06] MEDS: Pyridium 200 MG PO (09:43)
[2024-08-06] MEDS: NIZORAL 2% CREAM 1 APPLIC TOPICAL ×2 (09:44→20:06)
--- NOTE | 2024-08-06 11:10 | CM ---
Patient seen at bedside - with son in room
Declines SNF as recommened by PT - current with [facility]
PLAN: home with [facility]
--- NOTE | 2024-08-06 12:50 | W.PN.HOSP.TC ---
Addendum entered and electronically signed by Cosmo Church MD 08/06/24 16:29:
Patient requires a heavy weight rolling walker due to ambulatory dysfunction.
Original Note:
Today's Communication/Plan
-
f/u hbg in AM
abx per ID
possible d/c tomorrow
Assessment / Plan
Assessment / Plan
Weakness fall, suspected orthostasis from duplication of meds/stacking of BP meds
Hx of Multidrug-resistant hypertension
- took Amlodipine in addition to prescribed Nifedipine, also took AM Aldactone at night before coming in
- s/p 1 L IVF
- continue Metoprolol 100mg BID
- continue Losartan 50mg BID
- continue Nifedipine 60mg BID
- continue Aldactone 25mg in AM only
Gram positive bacteremia
Fever/leukocytosis
- routine infectious workup sent -> COVID/flu negative. UA negative. Blood culture neg
- CXR with atelectasis which can cause fevers - IS ordered
- Venous Doppler neg
- Blood cs one set growing gram positive cocci in clusters, repeat pending.
- Possibility of contamination. ID considering for possibly discontinue.
Chronic anemia
- no overt blood loss,
- s/p 1 U PRBC, hbg 8.4, recheck it tomorrow.
Recent hx of perforated sigmoid diverticulitis s/p Caridad's resection/ostomy creation complicated by splenic capsular tear/hematoma and RLQ fluid collection/anterior abdominal fluid collection with drains. Patient also had septic shock and
bacteroids bacteremia.
Sepsis POA due to fever, tachycardia
- CRS/ID consults appreciated
- s/p recent admission with upsizing of RLQ drain and removal of LUQ drain
- Ertapenem stopped last admission; remains off at this time
- no role for surgery or IR manipulations of drains per CRS
- continue daily flushes
- pain control, anti-emetics
Hx of L pleural effusion s/p chest tube with thrombolytics
- CXR without effusions now
Acute on chronic anemia
Hx of RENY
- iron studies c/w chronic inflammation last admission
- follow Hb, 8.0
Hyperlipidemia
- continue statin
Diabetes
- hemoglobin A1c 7.4 recently
- hold Fernando; Su. continue Farxiga
- continue SSI
- continue NovoLog
Coarctation of aorta with history of prior aortic stenting
- continue Aspirin
Obesity
Patient has stage 3 lower sacral pressure injury with large area of fungal rash around it
- discussed with the patient regarding offloading and also about diet.
- wound care following; Santyl planned
History of breast cancer status post mastectomy and chemo
History of endometrial cancer status post hysterectomy
DVT prophylaxis: Lovenox
Code: Full
Anticipated Discharge: 24 - 48 hours
Subjective/Interval History
-
Date of Service: August 06, 2024
No complaints overnight
Remains afebrile
Objective Data
-
Vital Signs:
Vital Signs
Temp Pulse Resp BP Pulse Ox
99.2 F 83 20 125/76 95
08/06/24 08:00 08/06/24 09:39 08/06/24 08:00 08/06/24 09:39 08/06/24 08:00
I&O
08/05/24 08/06/24 08/07/24
06:59 06:59 06:59
Intake Total 960 / 960 2405 / 2405
Output Total 690 / 690
Balance 945 / 945 1715 / 1715
Review of Systems
-
Respiratory: Reports No Symptoms
Cardiac: Reports No Symptoms
Abdomen/GI: Reports No Symptoms
Physical Exam
-
General: No Apparent Distress and Comfortable
HEENT: Negative Oxygen
Respiratory: Clear to Auscultation
Cardiac: Regular Rhythm and S1/S2; Negative Murmur or Rub
GI: Soft, Nontender and Other (Midline scar, JODIE drain with purulent drainage )
Musculoskeletal: No Edema
Neuro: Awake, Alert, Oriented, No Motor Deficits and Nonfocal/Grossly Intact
Psych: Calm
[2024-08-06 13:50] LABS: Glucose - Point of Care 152 mg/dl (70-99)
[2024-08-06] MEDS: NOVOLOG FLEXPEN-LOW RESISTANCE 1 UNITS SC (13:59)
[2024-08-06 16:00] VITALS: BP 133/73
--- NOTE | 2024-08-06 16:17 | W.PN.ID1 ---
Date of Service
Date of Service: August 06, 2024
Today's Communication
Discontinue vancomycin and observe.
Assessment / Plan
Fevers
Low-grade leukocytosis
- resolved
Anterior abdominal collection/abscess
- s/p drain placement (06/10/24) and recent upsizing of drain (07/27/24)
- prior cultures with Klebsiella pneumoniae and ESBL E. coli
- Abscess cultures 07/17: staph epi, strep species x 2
Diverticulitis with diverticular perforation - resolved
- s/p diverting colostomy (05/22/2024).
- Intra-op splenic capsular tear with subsequent hematoma development
Hx LUQ infected hematoma - resolved
Recommendations:
Single blood culture from admit with diphtheroids, suggesting contaminant.
Discontinue further vancomycin.
Follow white count and temperature curve.
Follow drain output.
����������������������������������������������������������
Chief Complaint
-: Fever, Leukocytosis and Bacteremia
Subjective / Review of Systems
Review of Systems: No Fever and No Chills
Vital Signs / Physical Exam
Vital Signs
Vital Signs
Temp Pulse Resp BP Pulse Ox
99.2 F 83 20 125/76 95
08/06/24 08:00 08/06/24 09:39 08/06/24 08:00 08/06/24 09:39 08/06/24 08:00
Physical Exam
Constitutional: No Acute Distress, Comfortable, Chronically Ill and Non-toxic
Eyes: Sclera Anicteric
Pulmonary: Non Labored
Gastrointestinal: Non Distended and Other (right anterior JODIE drain in place with scant seropurulent fluid)
Extremities: Negative Cyanosis or Erythema
Neurological: Awake, Alert and Oriented
Psychological: Calm
Objective Data
Lab Data
Lab Results
08/05/24 04:58
08/05/24 04:58
Estimated Creat Clear 94 ml/min 08/05/24 04:58
Total Bilirubin 0.9 mg/dl (0.2-1.3) 08/02/24 02:30
AST 21 U/L (14-36) 08/02/24 02:30
ALT 14 U/L (0-35) 08/02/24 02:30
Alkaline Phosphatase 69 U/L (38-126) 08/02/24 02:30
Most recent labs reviewed.
Micro Results:
08/03/24 04:44 Blood Culture - Preliminary
Blood/Venous Diptheroids
Gram Stain - Preliminary
08/05/24 08:58 Blood Culture - Preliminary
Blood/Venous No Growth in 24 hours- Final report to follow
08/05/24 08:06 Blood Culture - Preliminary
Blood/Venous No Growth in 24 hours- Final report to follow
08/03/24 05:41 Blood Culture - Preliminary
Blood/Venous No Growth in 72 hours- Final report to follow
08/02/24 17:08 Urine Culture - Final
Urine
08/02/24 15:55 Influenza Types A & B ([facility]AN[facility]) - Final
Nasal Swab Negative for Influenza A & B, NAAT
Negative results must be combined with clinical observations
and patient history.
Nucleic Acid Amplification test (NAAT)performed on the
[employer] platform.
Imaging:
07/17/2024 CT abdomen/pelvis with contrast: Postoperative changes of a Caridad procedure noted. There is stable appearance of the right lower quadrant percutaneous drain with increased size of the gas and fluid containing collection in the mid
abdomen now measuring up to 10.2 cm whereas previously it was 8 cm. There is wall thickening of the adjacent bowel, likely reactive enteritis. Stable positioning of the left pigtail chest tube with small loculated pleural effusion on the catheter
tip measuring 5.4 x 7.4 cm please see full dictation for additional detail. Film personally viewed.
[2024-08-06] MEDS: LOVENOX 40 MG SC (18:03)
[2024-08-06 18:14] LABS: Glucose - Point of Care 138 mg/dl (70-99)
[2024-08-06 20:04] VITALS: BP 149/84
[2024-08-06 22:19] LABS: Glucose - Point of Care 136 mg/dl (70-99)
[2024-08-06 23:43] VITALS: BP 145/73
[2024-08-07 05:47] LABS: Hematocrit 28.5 % (37.0-47.0); Hemoglobin 9.1 g/dL (12.0-16.0); Mean Corp Hgb Conc. 31.9 g/dL (33.0-37.0); Mean Corpuscular Hgb 27.8 pg (27.0-31.0); Mean Corpuscular Volume 87.2 fL (81.0-99.0); Mean Platelet Volume 11.1 fL (7.4-10.4); Platelet Count 240 10^3/uL (130-400); Red Blood Cell Count 3.27 10^6/uL (4.20-5.40); Red Cell Dist. Width 17.6 % (11.5-14.5); White Blood Cell Count 6.2 10^3/uL (4.8-10.8)
[2024-08-07 06:12] LABS: Blood Urea Nitrogen 15 mg/dl (7-17); Calcium 8.9 mg/dl (8.4-10.2); Carbon Dioxide 22 mmol/L (22-30); Chloride 106 mmol/L (98-107); Estimated Creatinine Clearance 82 ml/min; Glucose 149 mg/dl (70-99); Potassium 3.8 mmol/L (3.5-5.1); Sodium 141 mmol/L (135-145); eGFR > 60.00
[2024-08-07 07:30] VITALS: BP 142/83
[2024-08-07 07:43] LABS: Glucose - Point of Care 119 mg/dl (70-99)
--- NOTE | 2024-08-07 08:32 | VNURNOTE ---
Rx and info sent to [facility] for heavy duty RW. Pt also provided pt with local DME companies by [facility].
[2024-08-07] MEDS: SANTYL OINTMENT 1 APPLIC TOPICAL (09:19)
[2024-08-07] MEDS: COZAAR 50 MG PO (09:20)
[2024-08-07] MEDS: FARXIGA 5 MG PO (09:20)
[2024-08-07] MEDS: CRESTOR 40 MG PO (09:20)
[2024-08-07] MEDS: FEOSOL 325 MG PO (09:21)
[2024-08-07] MEDS: ALDACTONE 25 MG PO (09:21)
[2024-08-07] MEDS: LOPRESSOR 100 MG PO (09:21)
[2024-08-07] MEDS: PROCARDIA XL (EXTENDED RELEASE) 60 MG PO (09:21)
[2024-08-07] MEDS: NEURONTIN 100 MG PO ×2 (09:21→15:58)
[2024-08-07] MEDS: LOW STRENGTH ASPIRIN 81 MG PO (09:22)
[2024-08-07] MEDS: ULTRAM 50 MG PO ×2 (09:22→15:57)
[2024-08-07] MEDS: DESENEX/MITRAZOL/ZEASORB 1 APPLIC TOPICAL (09:24)
[2024-08-07] MEDS: NIZORAL 2% CREAM 1 APPLIC TOPICAL (09:24)
[2024-08-07] MEDS: NOVOLOG FLEXPEN-LOW RESISTANCE SC (09:31)
[2024-08-07] MEDS: NOVOLOG FLEXPEN 4 UNITS SC ×2 (09:35→13:54)
--- NOTE | 2024-08-07 11:14 | W.PN.ID1 ---
Date of Service
Date of Service: August 07, 2024
Today's Communication
Observe off antibiotics.
Assessment / Plan
Fevers
- resolved
Low-grade leukocytosis
- resolved
Anterior abdominal collection/abscess
- s/p drain placement (06/10/24) and recent upsizing of drain (07/27/24)
- prior cultures with Klebsiella pneumoniae and ESBL E. coli
- Abscess cultures 07/17: staph epi, strep species x 2
Diverticulitis with diverticular perforation - resolved
- s/p diverting colostomy (05/22/2024).
- Intra-op splenic capsular tear with subsequent hematoma development
Hx LUQ infected hematoma - resolved
Recommendations:
Single blood culture from admit with diphtheroids, suggesting contaminant.
Vancomycin discontinued.
Follow white count and temperature curve.
Continue off antibiotics.
Follow drain output.
����������������������������������������������������������
Chief Complaint
-: Fever, Leukocytosis and Bacteremia
Subjective / Review of Systems
Review of Systems: No Fever and No Chills
Vital Signs / Physical Exam
Vital Signs
Vital Signs
Temp Pulse Resp BP Pulse Ox
97.9 F 95 18 142/83 97
08/07/24 07:30 08/07/24 09:20 08/07/24 07:30 08/07/24 09:20 08/07/24 07:30
Physical Exam
Constitutional: No Acute Distress, Comfortable and Non-toxic
Eyes: Sclera Anicteric
Cardiovascular: Regular Rate, S1/S2 and Murmur; Negative S3/S4
Pulmonary: Clear; Negative Wheezes, Rales or Rhonchi
Gastrointestinal: Soft, Non Tender, Non Distended and Other (Lower abdominal drain in place. No significant drainage in JODIE.)
Extremities: Negative Cyanosis or Erythema
Neurological: Awake and Alert
Psychological: Calm
Objective Data
Lab Data
Lab Results
08/07/24 05:17
08/07/24 05:17
Estimated Creat Clear 82 ml/min 08/07/24 05:17
Total Bilirubin 0.9 mg/dl (0.2-1.3) 08/02/24 02:30
AST 21 U/L (14-36) 08/02/24 02:30
ALT 14 U/L (0-35) 08/02/24 02:30
Alkaline Phosphatase 69 U/L (38-126) 08/02/24 02:30
Most recent labs reviewed.
Micro Results:
08/05/24 08:58 Blood Culture - Preliminary
Blood/Venous No Growth in 48 hours- Final report to follow
08/05/24 08:06 Blood Culture - Preliminary
Blood/Venous No Growth in 48 hours- Final report to follow
08/03/24 05:41 Blood Culture - Preliminary
Blood/Venous No Growth in 4 days- Final report to follow
08/03/24 04:44 Blood Culture - Preliminary
Blood/Venous Diptheroids
Gram Stain - Preliminary
08/02/24 17:08 Urine Culture - Final
Urine
08/02/24 15:55 Influenza Types A & B ([facility]AN[facility]) - Final
Nasal Swab Negative for Influenza A & B, NAAT
Negative results must be combined with clinical observations
and patient history.
Nucleic Acid Amplification test (NAAT)performed on the
[employer] platform.
Imaging:
07/17/2024 CT abdomen/pelvis with contrast: Postoperative changes of a Caridad procedure noted. There is stable appearance of the right lower quadrant percutaneous drain with increased size of the gas and fluid containing collection in the mid
abdomen now measuring up to 10.2 cm whereas previously it was 8 cm. There is wall thickening of the adjacent bowel, likely reactive enteritis. Stable positioning of the left pigtail chest tube with small loculated pleural effusion on the catheter
tip measuring 5.4 x 7.4 cm please see full dictation for additional detail. Film personally viewed.
[2024-08-07 12:06] LABS: Glucose - Point of Care 181 mg/dl (70-99)
[2024-08-07] MEDS: NOVOLOG FLEXPEN-LOW RESISTANCE 1 UNITS SC (13:54)
--- NOTE | 2024-08-07 13:59 | W.PN.HOSP.TC ---
Today's Communication/Plan
-
d/c home with HH
Assessment / Plan
Assessment / Plan
Weakness fall, suspected orthostasis from duplication of meds/stacking of BP meds
Hx of Multidrug-resistant hypertension
- took Amlodipine in addition to prescribed Nifedipine, also took AM Aldactone at night before coming in
- s/p 1 L IVF
- continue Metoprolol 100mg BID
- continue Losartan 50mg BID
- continue Nifedipine 60mg BID. Was on duplicate CCB/amlodipine- discontinued.
- continue Aldactone 25mg in AM only
Gram positive bacteremia
Fever/leukocytosis
- routine infectious workup sent -> COVID/flu negative. UA negative. Blood culture neg
- CXR with atelectasis which can cause fevers - IS ordered
- Venous Doppler neg
- Blood cs one set growing gram positive cocci in clusters, repeat neg, Likely contaminant. abx discontinued
Chronic anemia
- no overt blood loss,
- s/p 1 U PRBC, hbg 8.4, recheck it tomorrow.
Recent hx of perforated sigmoid diverticulitis s/p Caridad's resection/ostomy creation complicated by splenic capsular tear/hematoma and RLQ fluid collection/anterior abdominal fluid collection with drains. Patient also had septic shock and
bacteroids bacteremia.
Sepsis POA due to fever, tachycardia
- CRS/ID consults appreciated
- s/p recent admission with upsizing of RLQ drain and removal of LUQ drain
- Ertapenem stopped last admission; remains off at this time
- no role for surgery or IR manipulations of drains per CRS
- pain control, anti-emetics
- Maintain on BID NS flushes to JODIE drain.
Hx of L pleural effusion s/p chest tube with thrombolytics
- CXR without effusions now
Acute on chronic anemia
Hx of RENY
- iron studies c/w chronic inflammation last admission
- follow Hb, 8.0
Hyperlipidemia
- continue statin
Diabetes
- hemoglobin A1c 7.4 recently
- hold Yovani Blue. continue Farxiga
- continue SSI
- continue NovoLog
Coarctation of aorta with history of prior aortic stenting
- continue Aspirin
Obesity
Patient has stage 3 lower sacral pressure injury with large area of fungal rash around it
- discussed with the patient regarding offloading and also about diet.
- wound care following; Santyl planned
History of breast cancer status post mastectomy and chemo
History of endometrial cancer status post hysterectomy
DVT prophylaxis: Lovenox
Code: Full
More than 30 minutes spent in discharge including
Final examination of the patient
Summarizing hospital stay
Instructions for continuing care to all relevant caregivers
Preparation of discharge records, prescriptions, and referral forms
Total time spent (in minutes): 35 mins
Anticipated Discharge: Today
Subjective/Interval History
-
Date of Service: August 07, 2024
having some left lower chest discomfort on deep breathing
some on right side as well
Objective Data
-
Labs:
Laboratory Results
08/07/24
05:17
WBC 6.2
Hgb 9.1 L
Hct 28.5 L
Plt Count 240
Sodium 141
Potassium 3.8
Chloride 106
Carbon Dioxide 22
BUN 15
Creatinine 0.8
Glucose 149 H
Calcium 8.9
Vital Signs:
Vital Signs
Temp Pulse Resp BP Pulse Ox
97.9 F 95 18 142/83 97
08/07/24 07:30 08/07/24 09:20 08/07/24 07:30 08/07/24 09:20 08/07/24 08:30
I&O
08/06/24 08/07/24 08/08/24
06:59 06:59 06:59
Intake Total 2405 / 2405
Output Total 690 / 690 450 / 450
Balance 1715 / 1715 -440 / -440
Review of Systems
-
Respiratory: Reports Pleurisy
Cardiac: Reports No Symptoms
Abdomen/GI: Reports No Symptoms
Physical Exam
-
General: No Apparent Distress and Comfortable
HEENT: Negative Oxygen
Respiratory: Clear to Auscultation
Cardiac: Regular Rhythm and S1/S2; Negative Murmur or Rub
GI: Soft, Nontender and Other (Midline scar, JODIE drain with purulent drainage )
Musculoskeletal: No Edema
Neuro: Awake, Alert, Oriented, No Motor Deficits and Nonfocal/Grossly Intact
Psych: Calm
--- NOTE | 2024-08-07 15:08 | CM ---
Patient for discharge today.
Will return home with [facility] - declined SNF
Pamphlets given for caregivers.
Information given DME's for Heavy Duty Walker
Patient had received a walker last hospitalization & states will pay for heavy duty walker.
PLAN: home with [facility]
son to transport
[2024-08-07] MEDS: TYLENOL 650 MG PO (15:58)
[2024-08-07 16:00] VITALS: BP 135/70
== END 2024-08-07 18:31 | disposition home health service (06) | DRG 871 ==
LOC: 2 NORTH 09:42
PROVIDERS: Internal Medicine; Nurse Practitioner Gerontology; ADMITTING PHYSICIAN Internal Medicine; ATTENDING PHYSICIAN Hospitalist; CONSULT PHYSICIAN Internal Medicine Infectious Disease; EMERGENCY PHYSICIAN Student in an Organized Health Care Education/Training Program; FAMILY PHYSICIAN Family Medicine; OTHER PHYSICIAN Student in an Organized Health Care Education/Training Program; OTHER PHYSICIAN Surgery
PROC: 30233N1 Transfusion of Nonautologous Red Blood Cells into Peripheral Vein, Percutaneous Approach (ICD-10-PCS; 2024-08-04)
DX: A41.9 Sepsis, unspecified organism (principal); L89.153 Pressure ulcer of sacral region, stage 3; Q25.1 Coarctation of aorta; I10 Essential (primary) hypertension; E11.65 Type 2 diabetes mellitus with hyperglycemia; Z79.82 Long term (current) use of aspirin; D64.9 Anemia, unspecified; E78.00 Pure hypercholesterolemia, unspecified; E66.9 Obesity, unspecified; Z85.3 Personal history of malignant neoplasm of breast; Z68.30 Body mass index [BMI] 30.0-30.9, adult
CPT/HCPCS: 71046; 72050; 73502; 73564; 80048; 80053; 81003; 81015; 82962; 85025; 85027; 86850; 86900; 86901; 86920; 87040; 87086; 87205; 87502; 87811; 93970; 96360; 96361; 97163; 97166; 97530; 97535; 99285; P9016

== ENCOUNTER 2024-08-10 06:31 | Inpatient (IN) | payer BC, SELFPAY ==
[2024-08-10] VITALS (14 sets, daily range): BP systolic 114–174; BP diastolic 59–89; BMI 31.3
--- NOTE | 2024-08-10 03:20 | ED.GENMED ---
History of Present Illness
General
Chief Complaint: Skin Problem
Source: patient, family (Son who is at bedside) and previous hospital records (Multiple, recent, recurrent hospitalizations)
Exam Limitations: none
Time Seen by Provider: 08/10/24 02:49
Nursing documentation reviewed up to this point in time: agreed with
History of Present Illness
History of Present Illness:
This is a 58-year-old woman who has history of perforated sigmoid diverticulitis April of this year undergoing Barbour's resection with ostomy formation, complicated by splenic capsular tear/hematoma as well as intra-abdominal fluid
collection/intra-abdominal abscesses.
Prolonged hospitalization in April with prolonged IV antibiotics for approximately 70 days.
Recurrent hospitalizations initially for abdominal drain malfunction requiring replacement of right lower quadrant JODIE drain to a larger size and eventually removal of right upper quadrant as well as left abdominal JODIE drains.
More recently was hospitalized August 02 after suffering syncopal event thought to be related to stacking of hypertensive medications. Hypotension improved with IV fluids. Medication schedule was adjusted.
During most recent hospitalization there was no evidence of sepsis nor bacteremia. She has remained afebrile.
Discharged to home August 07 and has been receiving daily home health nursing care, continuing twice daily flushing of right lower quadrant drain without difficulty until tonight when son states he was unable to to flush the drain meeting
significant resistance.
Patient got up out of bed to use the commode around 1:00 this morning and upon doing so she noticed some blood-tinged exudate at her inferior incision site and onto her pull-up. There has been no drainage from her JODIE drain but now noted some
drainage from inferior aspect of her midline abdominal incision as well as mild focal erythema inferior aspect of the incision which is new since yesterday.
She has not had a fever nor chills. She does note some mild lower abdominal discomfort most noted when she attempts to get up, sit up.
Appetite has been good. She has been using her walker and ambulating to and from her bedside commode to her recliner.
No further episodes of lightheadedness.
Past History
Past History
ED Past Medical History: Cancer (Endometrial CA, Breast CA), HTN, Hypercholesterolemia, IDDM and Other (Back pain, Diverticulitis, UTI, 2 JODIE drains)
ED Past Surgical History: Bowel resection (Colostomy), Cardiac (Co-archtation of the aorta with stent), (2 ), Gynecological (Hysterectomy), Tonsilectomy (And adenoids) and Other (Bilateral Mastectomy Right lymphectomy, Coarctation of aorta
with stent)
Social History
Tobacco: Non-smoker
Alcohol: None
Drug: None
Personal: Other ()
Living: with family
Employment: Not employed
Family History
Family History: Other (Noncontributory)
Phy Exam
Physical Exam
Physical Exam:
GENERAL: 58-year-old woman appears somewhat older than stated age, bright and alert, pleasant, easily communicative and in no acute distress. Son is accompanying.
EYE: pupils equal and reactive. anicteric
NECK: Supple, nontender, no meningismus, no significant adenopathy.
ENT: oral mucosa is moist. No rhinorrhea.
CARDIAC: Regular rate and rhythm. no murmur.
LUNGS: Clear breath sounds bilaterally, no acute respiratory distress, no wheezes/rales/rhonchi
ABDOMEN: Rotund, soft, nondistended, midline vertical surgical incision with scant erythema inferior aspect of the incision with moderate purulent drainage from pinpoint area distal aspect of the incision. Mild local tenderness along the mid to
distal aspect of surgical incision. Colostomy left lower quadrant with soft brown stool within the bag. JODIE drain right lower quadrant, site is clean and dry, there is no drainage in the tubing nor JODIE bulb. no r/g, no cvat. normoactive BS.
NEUROLOGICAL: Alert and oriented x3, no focal neuro deficits.
SKIN: Warm and dry, mildly pale in color, sacral decubitus.
MUSCULOSKELETAL: No C/C/E. peripheral pulses are full and equal b/l. No palpable tenderness.
PSYCH: Normal and appropriate interaction.
Sepsis
Sepsis Screening
Sepsis Assessment: Sepsis Ruled Out
Sepsis Screen
Sepsis Screen: Sepsis Ruled Out
Date: 08/10/24
Time: 06:04
Course
Orders/Labs/Results
Orders:
Orders
08/10/24 03:46
CT Abd/pelvis W Iv Cont Urgent
Comment:
Reason For Exam: exudate drainage from abd wall incision w abd pain
08/10/24 04:08
Complete Blood Count/With Diff Urgent
Comprehensive Metabolic Panel Urgent
Wound Culture [Wound/Abscess/Other Culture] Urgent
FAN Source: Abdomen
Specimen Description:
Date Specimen was Collected: 08/10/24
Time Specimen was Collected: 03:33
08/10/24 04:19
Acetaminophen [Tylenol] 650 mg .ROUTE .STK-MED ONE
08/10/24 04:21
Acetaminophen [Tylenol] 650 mg PO NOW STA
Abnormal Lab Results
08/10/24
04:08
WBC 11.2 H 10^3/uL
(4.8-10.8)
RBC 3.72 L 10^6/uL
(4.20-5.40)
Hgb 9.9 L g/dL
(12.0-16.0)
Hct 31.6 L %
(37.0-47.0)
MCH 26.6 L pg
(27.0-31.0)
MCHC 31.3 L g/dL
(33.0-37.0)
RDW 17.8 H %
(11.5-14.5)
Abs Immat Gran (auto) 0.2 H 10^3/uL
(0-0.05)
Absolute Neuts (auto) 7.9 H 10^3/uL
(1.4-6.5)
Absolute Monos (auto) 0.8 H 10^3/uL
(0.1-0.6)
Immature Gran % 1.6 H %
(0-0.5)
Lymphocytes % 17.9 L %
(20.5-51.1)
BUN 21 H mg/dl
(7-17)
Glucose 150 H mg/dl
(70-99)
08/10/24 04:08
08/10/24 04:08
Vital Signs
Initial and Last Documented VS:
Initial Vital Signs
Temp Pulse Resp BP Pulse Ox
98.3 F 97 20 139/89 97
08/10/24 02:30 08/10/24 02:30 08/10/24 02:30 08/10/24 02:30 08/10/24 02:30
Last Documented Vital Signs
Temp Pulse Resp BP Pulse Ox
98.3 F 85 14 142/73 97
08/10/24 02:30 08/10/24 05:45 08/10/24 05:45 08/10/24 05:45 08/10/24 05:45
MDM/Problems Addressed
Differential Diagnosis Includes:
Concern for malfunction/blockage of right lower quadrant JODIE drain with now development of fistula inferior aspect of surgical wound.
Will check labs and plan for CT abdomen pelvis to reassess abdominal fluid collection/abscesses.
*Radiology
Radiology exam reviewed: radiology read reviewed
*Pulse Oximetry
Patient hypoxic: no
*Critical Care Note
Total Time (30-74mins, 75-104mins- exclusive of procedures): Not Applicable
Update Note
Update Note:
Labs show uptrend in white blood cell count mildly to 11.9. Mild but stable anemia.
CAT scan shows slightly increased size of left subphrenic abscess as well as mildly increased size of anterior abdominal wall abscess.
She remains afebrile. Hemodynamically stable.
Wound culture obtained.
Will admit to hospitalist service.
ED Attending Note
-
Portions of this chart may have been created with voice recognition software.� Occasional wrong word or��sound alike� substitutions may have occurred due to the inherent limitations of voice recognition software.
Discharge Plan
Departure
Patient Disposition: Admit
Date of Disposition: 08/10/24
Time of Disposition: 05:55
Admit to: Med/Surg
Admit to doctor: Boris
Presentation/result/management discussed w/ accepting MD/DO: Hospitalist
Condition: Fair
Discharge Problem:
Abscess, intra-abdominal, postoperative, Abdominal wall fistula, blockage of JODIE drain
Prescriptions:
No Action
multivitamin with folic acid [Tab-A-Sherley] 1 TABLET tablet
1 tab PO DAILY
aspirin 81 mg Tablet,Chewable
81 mg PO DAILY
Mounjaro 2.5 mg/0.5 mL Pen Injector
2.5 mg SC WE
Rx Instructions:
for 4 weeks
ferrous sulfate [FeroSul] 325 mg (65 mg iron) Tablet
325 mg PO DAILY Qty: 0 0RF
acetaminophen 325 mg Tablet
650 mg PO Q6HPRN PRN (Reason: mild pain) Qty: 0 0RF
simethicone 80 mg Tablet,Chewable
80 mg PO QIDPRN PRN (Reason: gas pain) Qty: 0 0RF
ketoconazole 2 % Cream
1 applic topical BID Qty: 60 0RF
Rx Instructions:
to buttocks
losartan 50 mg Tablet
50 mg PO BID Qty: 60 0RF
metoprolol tartrate 100 mg Tablet
100 mg PO BID Qty: 60 0RF
rosuvastatin [Crestor] 40 mg tablet
40 mg PO DAILY Qty: 30 0RF
nifedipine 60 mg Tablet Extended Release
60 mg PO BID Qty: 60 0RF
Patient Comments:
no recent pharmacy fills
tramadol 50 mg Tablet
50 mg PO Q6HPRN PRN (Reason: moderate pain) Qty: 30 0RF
spironolactone 25 mg Tablet
25 mg PO DAILY Qty: 30 0RF
gabapentin 100 mg Capsule
100 mg PO TID Qty: 90 0RF
insulin aspart U-100 100 unit/mL (3 mL) Insulin Pen
4 unit SC AC Qty: 15 0RF
dapagliflozin propanediol 5 mg Tablet
5 mg PO DAILY Qty: 30 0RF
Referrals:
PRIVATE,PHYSICIAN [Family Provider] -
Interventions
Interventions:
*Risk Screen - Suicide Last Done: 08/10/24 02:30
*General Assessment Last Done: 08/10/24 02:30
*Neglect/Abuse Screening Last Done: 08/10/24 02:30
ED- Fall Risk Assessment Last Done: 08/10/24 02:30
*ED COVID-19 Vaccine History Last Done: 08/10/24 02:30
ED-Skin Assessment Last Done: 08/10/24 05:49
Discharge Date and Time
Print Language: GEORGIAN
[2024-08-10] MEDS: TYLENOL 650 MG PO ×3 (04:21→22:58)
[2024-08-10 04:23] LABS: % Basophils 0.4 % (0-2); % Eosinophils 1.5 % (0-6); % Immature Granulocytes 1.6 % (0-0.5); % Lymphocytes 17.9 % (20.5-51.1); % Monocytes 7.4 % (1.7-9.3); % Neutrophils 71.2 % (42.2-75.2); Absolute Basophils 0.1 10^3/uL (0-0.2); Absolute Eosinophils 0.2 10^3/uL (0-0.7); Absolute Immature Granulocytes 0.2 10^3/uL (0-0.05); Absolute Monocytes 0.8 10^3/uL (0.1-0.6); Absolute Neutrophils 7.9 10^3/uL (1.4-6.5); Hematocrit 31.6 % (37.0-47.0); Hemoglobin 9.9 g/dL (12.0-16.0); Mean Corp Hgb Conc. 31.3 g/dL (33.0-37.0); Mean Corpuscular Hgb 26.6 pg (27.0-31.0); Mean Corpuscular Volume 84.9 fL (81.0-99.0); Mean Platelet Volume 10.4 fL (7.4-10.4); Nucleated Red Blood Cells % 0 %; Platelet Count 356 10^3/uL (130-400); Red Blood Cell Count 3.72 10^6/uL (4.20-5.40); Red Cell Dist. Width 17.8 % (11.5-14.5); White Blood Cell Count 11.2 10^3/uL (4.8-10.8)
--- NOTE | 2024-08-10 04:34 | EDRN ---
Pt. w/ stage 2 pressure wound between buttocks, foam dressing applied to site, pt. placed on waffle cushion, turned slightly to lt. side to offload.
[2024-08-10 04:35] LABS: ALT (SGPT) 15 U/L (0-35); AST (SGOT) 19 U/L (14-36); Albumin 3.7 g/dl (3.5-5.0); Alkaline Phosphatase 76 U/L (38-126); Blood Urea Nitrogen 21 mg/dl (7-17); Calcium 9.7 mg/dl (8.4-10.2); Carbon Dioxide 25 mmol/L (22-30); Chloride 102 mmol/L (98-107); Estimated Creatinine Clearance -16 ml/min; Glucose 150 mg/dl (70-99); Potassium 3.8 mmol/L (3.5-5.1); Sodium 143 mmol/L (135-145); Total Bilirubin 0.3 mg/dl (0.2-1.3); eGFR > 60.00
--- NOTE | 2024-08-10 06:18 | HPS.HSE ---
Family Physician
-
Family Physician: PHYSICIAN PRIVATE
Chief Complaint
-
Abdominal Drainage
History of Present Illness
Patient is a 58y F with PMH significant for hypertension, DM-II and recent history of complicated diverticulitis with intra-abdominal abscess and JODIE drain in place who presents to ED complaining of purulent drainage from her abdomen this evening.
Patient was most recently hospitalized from 08/02 - 08/07 secondary to deconditioning and hypotension - thought to be secondary to med error / duplication. Patient had initial hospitalization beginning in April 2024 with perforated diverticulitis
requiring Barbour procedure. This was complicated by splenic tear, infected hematoma, bacteremia / sepsis and persistent abdominal abscess / collection.
Patient has completed her course of antibiotics.
She states that she had been feeling well since her recent discharge. She notes some mild abdominal discomfort - mostly with bending at the waist.
This evening, she felt some moisture at her waist and noted some blood on the inside of her garments. Her son inspected the area and appreciated a substantial amount of bloody / purulent drainage from the inferior aspect of her midline incision.
This is a new finding.
In addition, patient states that her son and her VN had difficulty flushing her JODIE drain / tubing today. There has reportedly been decreased output from the drain over the past few days.
Patient has no symptoms of fevers / chills, N/V, urinary complaints, etc.
Medical History
Past Medical History
Past Medical History: Reports Other
Additional Past Medical History:
Complicated Diverticulitis
Splenic Tear / Infected Hematoma
Intra-Abdominal Abscess / Fluid Collection
Recurrent Pleural Effusion
Hypertension
DM-II
Obesity
Coarctation of the Aorta
Breast Cancer s/p Mastectomy and Chemo
Uterine Cancer s/p Hysterectomy
Diverticular Disease
Past Surgical History: Reports Other
Additional Past Surgical History:
Barbour's Procedure / Colostomy Formation
RLQ Drain Placement(06/10/24)
RLQ Drain Upsized (07/27/24)
Bilateral Mastectomies and Breast Reconstructions
LETI
x 2
Aortic Stent Placement
Cataracts
Social History
Tobacco: Non-smoker
Alcohol: None
Drug: None
Family History
Family History: Other (Mother: Colon Cancer)
Allergies / Home Medications
Allergies reflects when Allergies were last updated in [facility].
Home Medications with original date entered in [facility]
Allergy/Medication List:
Allergies
Allergy/AdvReac Type Severity Reaction Status Date / Time
diphtheria, pertussis, Allergy Unknown Verified 08/10/24 02:30
tetanus vacc
gentamicin Allergy Hearing Verified 08/10/24 02:30
loss
Home Medications
multivitamin with folic acid 400 mcg tablet (Tab-A-Sherley) 1 tab PO DAILY Supplement 09/02/20
aspirin 81 mg chewable tablet 81 mg PO DAILY Blood Clot Prevention/Tx 05/20/24
tirzepatide 2.5 mg/0.5 mL subcutaneous pen injector (Mounjaro) 2.5 mg SC WE Diabetes 05/20/24
acetaminophen 325 mg tablet 650 mg (2 x 325 mg) PO Q6HPRN PRN mild pain #0 tabs 07/01/24
ferrous sulfate 325 mg (65 mg iron) tablet (FeroSul) 325 mg PO DAILY Supplement #0 tabs 07/01/24
simethicone 80 mg chewable tablet 80 mg PO QIDPRN PRN gas pain #0 tabs 07/01/24
dapagliflozin propanediol 5 mg tablet 5 mg PO DAILY diabetes #30 tabs 07/30/24
gabapentin 100 mg capsule 100 mg PO TID Pain #90 caps 07/30/24
insulin aspart U-100 100 unit/mL (3 mL) subcutaneous pen 4 unit (0.04 mL) SC AC Diabetes #15 mL 07/30/24
ketoconazole 2 % topical cream 1 applic topical BID #60 grams 07/30/24
losartan 50 mg tablet 50 mg PO BID #60 tabs 07/30/24
metoprolol tartrate 100 mg tablet 100 mg PO BID #60 tabs 07/30/24
nifedipine 60 mg tablet,extended release 60 mg PO BID #60 tabs 07/30/24
rosuvastatin 40 mg tablet (Crestor) 40 mg PO DAILY #30 tabs 07/30/24
spironolactone 25 mg tablet 25 mg PO DAILY Blood pressure #30 tabs 07/30/24
tramadol 50 mg tablet 50 mg PO Q6HPRN PRN moderate pain #30 tabs 07/30/24
Review of Systems
-
History Source: Patient
A 12 point ROS was completed and negative except as noted: Yes
Constitutional: Denies Fever or Chills
Respiratory: Denies Cough or Trouble Breathing
Cardiac: Denies Chest Pain or Palpitations
Abdomen/GI: Reports Abdominal Pain (mild discomfort with bending.); Denies Nausea, Vomiting or Diarrhea
: Denies Dysuria or Frequency
Musculoskeletal: Denies Joint Pain or Edema
Skin: Reports Other (Wound lower abdomen with purulent discharge.)
Neurological: Denies Dizzy or Headache
Psych: Denies Depression or Anxiety
Physical Exam
Vital Signs
Vital Signs
Temp Pulse Resp BP Pulse Ox
98.3 F 85 14 142/73 97
08/10/24 02:30 08/10/24 05:45 08/10/24 05:45 08/10/24 05:45 08/10/24 05:45
Physical Exam
General: Other (58y F in no acute distress.)
HEENT: Moist mucous membranes and PERRLA
Respiratory: Clear; No Wheezes, Rales or Rhonchi
Cardiac: S1/S2 and Regular Rhythm; No Murmur
GI: Other (Colostomy intact. RLQ JODIE drain in place. No fluid / drainage in decompressed bulb - this was reset. Punctate opening at inferior aspect of midline abdominal incision. Expresses significant amount of purulent / bloody material with
light pressure.)
Musculoskeletal: No Clubbing and No Cyanosis
Laboratory Results
-
08/10/24 04:08
08/10/24 04:08
Laboratory Results
Total Bilirubin 0.3 mg/dl (0.2-1.3) 08/10/24 04:08
AST 19 U/L (14-36) 08/10/24 04:08
ALT 15 U/L (0-35) 08/10/24 04:08
Alkaline Phosphatase 76 U/L (38-126) 08/10/24 04:08
Impression/Plan
-
A/P: Patient is a 58y F with PMH significant for HTN, DM_II and recent hospitalization(s) relating to complicated diverticulitis who returns to the ED this evening with drainage from her abdominal incision.
Abdominal Abscess
Complicated Diverticulitis s/p Barbour's / Colostomy Formation
- Admit for further evaluation and treatment.
- Expression of purulent / bloody material from inferior aspect of incision. On CT appears to communicate / correlate with known abscess.
- Colorectal Surgery evaluation for local management. ? local I&D, etc.
- IR evaluation for ? JODIE drain malfunction. Difficulty flushing and with significant decreased output in past 2 days - despite continued collection noted on CT.
- Continue to observe off of antibiotics for now in absence of fevers, toxic appearance, etc.
- Continue routine ostomy care.
Benign Hypertension
- Stable. Continue current med regimen with holding parameters to avoid hypotension.
DM-II
- Stable. Monitor glucose and cover with SSI as needed.
- A1C was 6.6% on 07/18/24.
Anemia of Chronic Disease
- Stable / continues to slowly improve.
- Follow for changes.
Deconditioning
- s/p long and complicated recent hospitalizations.
- PT / OT evaluations and ongoing treatment to improve mobility / gait.
DVT Prophylaxis: SCDs
Code Status: Full
[2024-08-10] MEDS: PROCARDIA XL (EXTENDED RELEASE) 60 MG PO (09:21)
[2024-08-10] MEDS: CRESTOR 40 MG PO (09:21)
[2024-08-10] MEDS: ALDACTONE 25 MG PO (09:21)
[2024-08-10] MEDS: FARXIGA 5 MG PO (09:22)
[2024-08-10] MEDS: COZAAR 50 MG PO ×2 (09:23→19:45)
[2024-08-10] MEDS: NEURONTIN 100 MG PO ×3 (09:23→22:57)
[2024-08-10] MEDS: LOPRESSOR 100 MG PO ×2 (09:23→19:45)
[2024-08-10] MEDS: FEOSOL 325 MG PO (09:24)
[2024-08-10] MEDS: LOW STRENGTH ASPIRIN 81 MG PO (09:25)
[2024-08-10] MEDS: NOVOLOG FLEXPEN-LOW RESISTANCE SC ×3 (09:36→16:16)
[2024-08-10 09:44] LABS: Glucose - Point of Care 123 mg/dl (70-99)
--- NOTE | 2024-08-10 12:29 | CON.CRS ---
Medical History
-
Chief Complaint: Drainage from incision
History of Present Illness:
58-year-old female with a significant past medical history of acute sigmoid diverticulitis status post explorative laparotomy with Barbour's resection and colostomy on 05/22/2024. She had an extensive hospitalization from 05/20/2024 to 07/01/2024.
During her stay she developed intra-abdominal abscesses and had a right lower quadrant abscess as well as a left upper quadrant splenic hematoma and had IR drains placed in both. She was discharged to a nursing facility on IV antibiotics. Several
weeks later, her son noticed a foul smelling odor around her right lower quadrant JODIE drain and she presented through the ER and was re-admitted from 07/17/2024- to 07/31/2024. During that admission her LUQ drain was removed and her midline drain was
upsized by IR. She was discharged to home off antibiotics 07/31/2024 and returned on 08/02/2024 after a fall with weakness and was followed off antibiotics with RLQ drain in place and eventually discharged back to home on 08/07/24 with home care. She
presented through the ED again overnight she has had ongoing issues maintaining suction to the drain and flushing it as well as new drainage from her prior midline incision. She does note persistent LUQ/back pain which has worsened slightly. On
exam, there is no abdominal pain or distention. The base of the midline incision is reddened with minimal SSF drainage present from a pinpoint opening. The RLQ IR drain was flushed without difficulty with loose attachment noted and tightened. Cloudy
serous fluid present. She denies fevers at home and has been afebrile here. She denies n/v. She has been eating well with soft brown stool from stoma present.
Past Medical History
Past Medical History: Cancer (breast ca with mastectomy and chemo, endometrial ca tx surgically), Diverticulitis, HTN, NIDDM and Other (thrombocytopenia, coarctation of the aorta, obesity, sacral decub )
Past Surgical History: Bowel Resection (Caridad's 05/22/24 complicated by RLQ abscess (drain remains in place) and splenic hematoma (drain since removed)), Gynecological (LETI) and Other (Mastectomy )
Social History
Tobacco: Non-Smoker
Alcohol: None
Living: With Family
Family History
Family History: Reviewed & Not Pertinent
Allergies / Home Medications
Allergy/AdvReac Type Severity Reaction Status Date / Time
diphtheria, pertussis, Allergy Unknown Verified 08/10/24 02:30
tetanus vacc
gentamicin Allergy Hearing Verified 08/10/24 02:30
loss
�Medication �Instructions �Recorded �Confirmed �Type
multivitamin with folic acid 400 1 tab PO DAILY Supplement 09/02/20 08/10/24 History
mcg tablet (Tab-A-Sherley)
aspirin 81 mg chewable tablet 81 mg PO DAILY Blood Clot 05/20/24 08/10/24 History
Prevention/Tx
tirzepatide 2.5 mg/0.5 mL 2.5 mg SC WE Diabetes 05/20/24 08/10/24 History
subcutaneous pen injector
(Mounjaro)
acetaminophen 325 mg tablet 650 mg (2 x 325 mg) PO Q6HPRN PRN 07/01/24 08/10/24 Rx
mild pain #0 tabs
ferrous sulfate 325 mg (65 mg 325 mg PO DAILY Supplement #0 tabs 07/01/24 08/10/24 Rx
iron) tablet (FeroSul)
simethicone 80 mg chewable tablet 80 mg PO QIDPRN PRN gas pain #0 07/01/24 08/10/24 Rx
tabs
dapagliflozin propanediol 5 mg 5 mg PO DAILY diabetes #30 tabs 07/30/24 08/10/24 Rx
tablet
gabapentin 100 mg capsule 100 mg PO TID Pain #90 caps 07/30/24 08/10/24 Rx
insulin aspart U-100 100 unit/mL 4 unit (0.04 mL) SC AC Diabetes 07/30/24 08/10/24 Rx
(3 mL) subcutaneous pen #15 mL
ketoconazole 2 % topical cream 1 applic topical BID #60 grams 07/30/24 08/10/24 Rx
losartan 50 mg tablet 50 mg PO BID #60 tabs 07/30/24 08/10/24 Rx
metoprolol tartrate 100 mg tablet 100 mg PO BID #60 tabs 07/30/24 08/10/24 Rx
nifedipine 60 mg tablet,extended 60 mg PO BID #60 tabs 07/30/24 08/10/24 Rx
release
rosuvastatin 40 mg tablet (Crestor) 40 mg PO DAILY #30 tabs 07/30/24 08/10/24 Rx
spironolactone 25 mg tablet 25 mg PO DAILY Blood pressure #30 07/30/24 08/10/24 Rx
tabs
tramadol 50 mg tablet 50 mg PO Q6HPRN PRN moderate pain 07/30/24 08/10/24 Rx
#30 tabs
Review of Systems
-
History Source: Patient and Family
All other systems: Negative unless noted
A 10 point review of systems was completed, and was negative except as per HPI.
Physical Exam
Vital Signs
Temp 98.3 F 08/10/24 02:30
Pulse 79 08/10/24 06:30
Resp Rate 13 08/10/24 06:30
Blood pressure 135/59 08/10/24 06:00
SaO2 93 08/10/24 06:15
08/09/24 08/10/24 08/11/24
06:59 06:59 06:59
Actual Weight 87.8 kg
Body Mass Index (BMI) 31.3
Lab Results / Allergies
08/10/24 04:08
08/10/24 04:08
WBC 11.2 10^3/uL (4.8-10.8) H 08/10/24 04:08
Hgb 9.9 g/dL (12.0-16.0) L 08/10/24 04:08
Hct 31.6 % (37.0-47.0) L 08/10/24 04:08
Plt Count 356 10^3/uL (130-400) D 08/10/24 04:08
Abs Immat Gran (auto) 0.2 10^3/uL (0-0.05) H 08/10/24 04:08
Neutrophils % 71.2 % (42.2-75.2) 08/10/24 04:08
Allergy/AdvReac Type Severity Reaction Status Date / Time
diphtheria, pertussis, Allergy Unknown Verified 08/10/24 02:30
tetanus vacc
gentamicin Allergy Hearing Verified 08/10/24 02:30
loss
Physical Exam
General: Well Developed and No Apparent Distress
HEENT: Moist Mucous Membranes
GI: Soft, Non Tender, Non Distended and Other (ostomy with pink stoma/productive of brown, soft stool)
Skin: Warm, Dry and Other (prior midline incision with mild erythema to the base and pinpoint open area draining SSF, IR drain with cloudy serous fluid)
Neuro: Awake, Alert and AO x 3
Psych: Calm
Assessment / Plan
-
58-year-old female with a significant past medical history of acute sigmoid diverticulitis status post explorative laparotomy with Barbour's resection and colostomy on 05/22/2024. She had an extensive hospitalization from 05/20/2024 to 07/01/2024.
During her stay she developed intra-abdominal abscesses and had a right lower quadrant abscess as well as a left upper quadrant splenic hematoma and had IR drains placed in both. She was discharged to a nursing facility on IV antibiotics. Several
weeks later, her son noticed a foul smelling odor around her right lower quadrant JODIE drain and she presented through the ER and was re-admitted from 07/17/2024- to 07/31/2024. During that admission her LUQ drain was removed and her midline drain was
upsized by IR. She was discharged to home off antibiotics 07/31/2024 and returned on 08/02/2024 after a fall with weakness and was followed off antibiotics with RLQ drain in place and eventually discharged back to home on 08/07/24 with home care.
She presents with ongoing issues maintaining suction to the drain and flushing it as well as new drainage of SSF from a pinpoint opening at the base of her prior midline incision. She does note persistent LUQ/back pain which has worsened slightly.
CT imaging with stable collection to the RLQ with drain well positioned. Left perisplenic collection present and measuring 6.3 x 4.1 cm. No signs of enterocutaneous fistula although no PO contrast given. Suspect small fluid collection below the skin
has erupted. No fevers. Stable vitals signs. No leukocytosis.
--Discussed with IR, unable to safely aspirate LUQ collection
--Consult placed to ID to follow with us
--C/W RLQ drain with BID flushes
--Local wound care to base of midline incision. Will follow drainage.
--Follow labs/exams
--Medical management as per primary team
[2024-08-10] MEDS: ULTRAM 50 MG PO ×2 (12:50→22:57)
--- NOTE | 2024-08-10 13:34 | W.PN.HOSP.TC ---
Today's Communication/Plan
-
ID consult
Resume tramadol
Assessment / Plan
Assessment / Plan
Gen-AAOx3, NAD
HEENT-NC, AT, anicteric, clear oral mm
Neck-supple
CV-reg, no M, +S1/S2
Lungs-clear B/L
Abd-soft, NT, ND, right sided abdominal drain in place, colostomy, serosanguineous drainage from bottom of abdominal incision
Ext-no edema
Musculoskeletal-no cyanosis, clubbing
Skin-warm and dry
Neuro-grossly non-focal
Psych-calm, cooperative
Abdominal Abscess - postoperative abscess after Barbour's procedure with diverting colostomy performed on 05/22/2024.
CT scan abdomen/pelvis with IV contrast 08/10 shows stable right lower quadrant percutaneous drain with overall similar size of the gas and fluid collection. Interval removal of the left upper quadrant drain, slight increase size of the perisplenic
fluid collection measuring 6.3 x 4.1 cm. This correlates to known splenic hematoma, complication of her Barbour's procedure in April.
Case discussed with colorectal surgery and interventional radiology. IR feels no safe window of drain placement in the left upper quadrant due to anatomy.
ID consulted. Currently off antibiotics. Fluid culture sent from abdominal wound drainage, Gram stain preliminary shows many WBCs, few gram-negative rods, rare gram-positive cocci.
Mild leukocytosis noted with bandemia. Afebrile.
Continue tramadol as needed for her abdominal pain.
Perforated sigmoid diverticulitis s/p Barbour's / Colostomy Formation / iatrogenic splenic capsular tear - originally admitted April 2024, required prolonged hospitalization. Discharged and readmitted multiple times since, spent time in rehab in
between hospitalizations. Son states that she has only spent 3 days at home since April admission.
Hx LUQ infected perisplenic hematoma - LUQ drain removed 07/30/2024 by IR after drain study showed minimal residual abscess cavity without fistulous communication..
Essential Hypertension - Stable. Continue current med regimen with holding parameters to avoid hypotension.
DM2 without hyperglycemia -glucose 150 this morning. HgbA1C was 6.6% on 07/18/24. At home, she has been on dapagliflozin 5 mg daily, aspart 4 units AC, Mounjaro 2.5 mg subQ every Monday.
Anemia of Chronic Disease -hemoglobin currently stable. Monitor for now. Onset of anemia was in April 2024 when she was admitted for diverticulitis and required subsequent surgery.
Required blood transfusion during most recent hospitalization.
Hyperlipidemia -rosuvastatin.
Hx of aortic coarctation -stented 20 years ago.
Deconditioning - s/p long and complicated recent hospitalizations. PT/OT. Uses a walker at home.
Hx endometrial cancer -s/p hysterectomy.
Hx of breast cancer -s/p mastectomy, chemotherapy.
Obesity due to excess calories
Full code
Updated son at the bedside. All questions answered.
Anticipated Discharge: > 48 hours
Subjective/Interval History
-
Date of Service: August 10, 2024
Patient seen and examined. Complaining of left upper quadrant pain.
Objective Data
-
Labs:
Laboratory Results
08/10/24
04:08
WBC 11.2 H
Hgb 9.9 L
Hct 31.6 L
Plt Count 356 D
Sodium 143
Potassium 3.8
Chloride 102
Carbon Dioxide 25
BUN 21 H
Creatinine 0.7
Glucose 150 H
Calcium 9.7
Total Bilirubin 0.3
AST 19
ALT 15
Alkaline Phosphatase 76
Vital Signs:
Vital Signs
Temp Pulse Resp BP Pulse Ox
98.3 F 79 23 142/64 95
08/10/24 02:30 08/10/24 13:15 08/10/24 13:15 08/10/24 13:00 08/10/24 09:30
Review of Systems
-
History Source: Patient
All other systems: Reviewed and negative
--- NOTE | 2024-08-10 13:47 | CON.ID ---
Consultation
-
Date/Time Consultation Requested: August 10, 2024 0821
Date/Time Consultation Performed: August 10, 2024 1350
Requesting Provider: YIFAN Harris
Performing Provider: Dr. Carmen Elizalde
Reason for Consultation: Intra-abdominal fluid collection
Chief Complaint / Past History
Chief Complaint
Weakness and fall
History of Present Illness
Ms Mendoza is a 58 year old female with recent history of perforated diverticulitis status post Barbour's resection/ostomy course was complicated by splenic capsular tear with hematoma and also multiple intraabdominal abscesses - s/p drainage. She
has had long courses of IV antibiotics with zosyn (05/19 to 05/31) and Ertapenem (05/31 to 07/29). The LUQ abscess appeared to have resolved on last assessment without fistula on catheter study with contrast injection 07/30 and this catheter was removed.
07/27 the anterior abscess was evaluated and about 20 ccs of purulent material drained - it was not sent for culture. On 07/29 antibiotics were stopped and she was observed. Because she remained well, she was discharged on 07/31. She was
readmitted 08/02 - 08/07 due to weakness and fall. She has had intermittent fevers with overall downtrending fever curve 100.9 to 100.4. She had ongoing drainage of purulent material from her anterior abdominal drain. Blood cx diphtheroid was
contaminant. She was observed off abx during hospital stay and dc'd home on 08/07.
She presented back to the hospital early this morning after noticing significant bloody pus coming out of the lower abdominal incision last night. Initially she was doing well at home. Her son noted a little bit of redness over the inferior
midline incision site on Monday. Last night her son had trouble flushing the the midline abdominal JODIE drain. Last night patient felt wetness on her diaper. His son took a look and noted that there was a wound draining significant amount of blood
and pus. He brought her to the ER right away. No fever. White count 11.2. CT of the abdomen pelvis shows interval removal of the left upper quadrant PERC drain with slightly increased size of the residual rim-enhancing collection just superior
to the spleen which measures 6.3 x 4.1 cm. The right lower quadrant drain with stable fluid containing collection within the lower midline abdomen. IR unable to safely access the left upper quadrant fluid collection. The midline abdominal wound
drainage was swabbed and sent for culture. No fevers or chills. She does have discomfort over the left upper flank area specially when she takes deep breaths. No diarrhea.
Past History
Additional Past Medical History:
Reports HTN (Resistant hypertension on multi antihypertensives) and NIDDM
Chronic anemia
Chronic back pain
Additional Past Surgical History:
perforated sigmoid diverticulitis status post Caridad's resection and ostomy creation complicated by splenic capsular tear/hematoma
Allergy History:
diphtheria, pertussis, tetanus vacc Allergy (Verified 08/10/24 02:30)
Unknown
gentamicin Allergy (Verified 08/10/24 02:30)
Hearing loss
Medications Reviewed: Yes
Current Antibiotics:
None
Social History
Tobacco: Non-Smoker
Alcohol: None
Drug: None
Family History
Family History: Not Pertinent
Review of Systems
Review of Systems
General: Negative Fever, Chills or Change in Appetite
HEENT: Negative Sinus Problems, Headache or Pharyngitis
Cardiovascular: Negative Chest Pain
Respiratory: Negative Dyspnea or Cough
Gasteroenterology: Negative Nausea, Vomiting or Diarrhea
Genital / Urological: Negative Dysuria
Endocrine: Negative Weakness
All systems: All other systems were reviewed and were negative
Vital Signs
Temp Pulse Resp BP Pulse Ox
98.3 F 79 23 142/64 95
08/10/24 02:30 08/10/24 13:15 08/10/24 13:15 08/10/24 13:00 08/10/24 09:30
Physical Exam
Physical Exam
Constitutional: No Acute Distress and Comfortable
Eyes: No Conjunctival Hemorrhage and Sclera Anicteric
Cardiovascular: Regular Rate and S1/S2
Pulmonary: Clear
Gastrointestinal: Soft, Non Tender and Normal Bowel Sounds
Genito-Urinary: Negative CVA Tenderness
Extremities: Negative Edema
Wound: Other (Abdomen midline incision inferiorly, + opening with moderate amt of brownish thin fluid expressed)
Neurological: AO x 3
Lab / Diagnostic Study Results
08/10/24 04:08
08/10/24 04:08
Abs Immat Gran (auto) 0.2 10^3/uL (0-0.05) H 08/10/24 04:08
Absolute Neuts (auto) 7.9 10^3/uL (1.4-6.5) H 08/10/24 04:08
Absolute Lymphs (auto) 2.0 10^3/uL (1.2-3.4) 08/10/24 04:08
Absolute Monos (auto) 0.8 10^3/uL (0.1-0.6) H 08/10/24 04:08
Absolute Basos (auto) 0.1 10^3/uL (0-0.2) 08/10/24 04:08
Immature Gran % 1.6 % (0-0.5) H 08/10/24 04:08
Neutrophils % 71.2 % (42.2-75.2) 08/10/24 04:08
Lymphocytes % 17.9 % (20.5-51.1) L 08/10/24 04:08
Monocytes % 7.4 % (1.7-9.3) 08/10/24 04:08
Eosinophils % 1.5 % (0-6) 08/10/24 04:08
Basophils % 0.4 % (0-2) 08/10/24 04:08
Microbiology Results
Micro:
08/10/24 04:08 Wound Culture - Pending
Abdomen Gram Stain - Preliminary
08/10/24 CT a/p: Interval removal of the left upper quadrant percutaneous drain with slightly increased size of the residual rim-enhancing collection just superior to the spleen which measures 6.3 x 4.1 cm. There is stable appearance of the right
lower quadrant percutaneous drain with overall similar size of the gas and fluid containing collection within the lower midline abdomen.
Assessment / Plan
LUQ intra-abdominal abscess
- hx post-op LUQ infected hematoma s/p perc drain, Cx Klebsiella pneumoniae, ESBL-Ecoli s/p Ertapenem (05/31 to 07/29)
-LUQ drain removed 07/27/24
-LUQ fluid collection has increased in size with rim-enhancement, cannot safely aspirate by IR
Anterior midline lower abdominal incision drainage
-?fistula communication with underlying abscess
- cx pending
Anterior midline abdominal collection/abscess
- s/p drain placement (06/10/24) and recent upsizing of drain (07/27/24)
- Abscess cultures 07/17: staph epi, strep species x 2 s/p Ertapenem (05/31 to 07/29)
Hx Diverticulitis with diverticular perforation
- s/p diverting colostomy (05/22/2024).
- Intra-op splenic capsular tear with subsequent hematoma development
Recommendation:
-Start meropenem 500mg IV q6h
-Follow cultures
-Follow wbc, temps.
Care Review
Plan reviewed with: Physician (Dr. Quiles)
--- NOTE | 2024-08-10 15:28 | PTCARENOTE ---
Received pt from ED via stretcher, JODIE drain to RLQ, ileostomy changed in ED, VSS, AAOx3, pt resting comfortably in bed at this time with son at bedside.
[2024-08-10 16:14] LABS: Glucose - Point of Care 140 mg/dl (70-99)
[2024-08-10] MEDS: STERILE WATER FOR INJECTION 10 ML IV ×2 (17:14→23:00)
[2024-08-10] MEDS: MERREM 500 MG IV ×2 (17:15→23:00)
[2024-08-10] MEDS: PROCARDIA XL (EXTENDED RELEASE) PO (19:45)
[2024-08-10 21:40] LABS: Glucose - Point of Care 121 mg/dl (70-99)
[2024-08-11 00:06] VITALS: BP 174/77
[2024-08-11] MEDS: PROCARDIA XL (EXTENDED RELEASE) 60 MG PO ×3 (00:39→20:35)
[2024-08-11 02:03] VITALS: BP 166/78
[2024-08-11] MEDS: STERILE WATER FOR INJECTION 10 ML IV ×4 (04:59→23:14)
[2024-08-11] MEDS: MERREM 500 MG IV ×4 (04:59→23:14)
[2024-08-11 05:01] VITALS: BMI 30.1
[2024-08-11 05:49] LABS: Hematocrit 31.7 % (37.0-47.0); Hemoglobin 9.9 g/dL (12.0-16.0); Mean Corp Hgb Conc. 31.2 g/dL (33.0-37.0); Mean Corpuscular Hgb 27.3 pg (27.0-31.0); Mean Corpuscular Volume 87.3 fL (81.0-99.0); Mean Platelet Volume 10.5 fL (7.4-10.4); Platelet Count 340 10^3/uL (130-400); Red Blood Cell Count 3.63 10^6/uL (4.20-5.40); Red Cell Dist. Width 17.5 % (11.5-14.5); White Blood Cell Count 9.2 10^3/uL (4.8-10.8)
[2024-08-11 06:18] LABS: Blood Urea Nitrogen 15 mg/dl (7-17); Calcium 9.5 mg/dl (8.4-10.2); Carbon Dioxide 29 mmol/L (22-30); Chloride 100 mmol/L (98-107); Estimated Creatinine Clearance 109 ml/min; Glucose 122 mg/dl (70-99); Potassium 3.9 mmol/L (3.5-5.1); Sodium 140 mmol/L (135-145); eGFR > 60.00
[2024-08-11] MEDS: ULTRAM 50 MG PO ×2 (06:33→21:37)
[2024-08-11] MEDS: TYLENOL 650 MG PO ×3 (06:34→20:37)
[2024-08-11 07:10] VITALS: BP 152/75
[2024-08-11 07:21] LABS: Glucose - Point of Care 145 mg/dl (70-99)
[2024-08-11] MEDS: NOVOLOG FLEXPEN-LOW RESISTANCE SC (09:02)
[2024-08-11] MEDS: LOW STRENGTH ASPIRIN 81 MG PO (09:04)
[2024-08-11] MEDS: FARXIGA 5 MG PO (09:04)
[2024-08-11] MEDS: ALDACTONE 25 MG PO (09:04)
[2024-08-11] MEDS: NEURONTIN 100 MG PO ×3 (09:04→21:36)
[2024-08-11] MEDS: CRESTOR 40 MG PO (09:04)
[2024-08-11] MEDS: FEOSOL 325 MG PO (09:04)
[2024-08-11] MEDS: LOPRESSOR 100 MG PO ×2 (09:05→20:36)
[2024-08-11] MEDS: COZAAR 50 MG PO ×2 (09:05→20:36)
--- NOTE | 2024-08-11 10:10 | W.PN.ID1 ---
Date of Service
Date of Service: August 11, 2024
Today's Communication
See below.
Assessment / Plan
LUQ intra-abdominal abscess
- hx post-op LUQ infected hematoma s/p perc drain, Cx Klebsiella pneumoniae, ESBL-Ecoli s/p Ertapenem (05/31 to 07/29)
-LUQ drain removed 07/27/24
-LUQ fluid collection has increased in size with rim-enhancement, cannot safely aspirate by IR
Anterior midline lower abdominal incision drainage
-?fistula communication with underlying abscess
- cx pending
Anterior midline abdominal collection/abscess
- s/p drain placement (06/10/24) and recent upsizing of drain (07/27/24)
- Abscess cultures 07/17: staph epi, strep species x 2 s/p Ertapenem (05/31 to 07/29)
Hx Diverticulitis with diverticular perforation
- s/p diverting colostomy (05/22/2024).
- Intra-op splenic capsular tear with subsequent hematoma development
Recommendation:
-Continue meropenem 500mg IV q6h (d2)
-Follow incision culture
- Consider sinus tract/drain study to assess for fistula
- May need to reposition or upsize midline drain as currently no output.
-Follow clinically
Chief Complaint
-: Other (Abd abscesses)
Subjective / Review of Systems
Very concern about prolonged abscesses. c/o left upper flank/spleen discomfort .
The midline JODIE drain is not draining.
Vital Signs / Physical Exam
Vital Signs
Vital Signs
Temp Pulse Resp BP Pulse Ox
98.5 F 90 16 152/75 97
08/11/24 07:10 08/11/24 09:05 08/11/24 07:10 08/11/24 09:05 08/11/24 07:10
Physical Exam
Constitutional: No Acute Distress and Comfortable
Cardiovascular: Regular Rate and S1/S2
Pulmonary: Clear
Gastrointestinal: Soft, Non Tender, Non Distended and Other (Colostomy with brown stool. Midline incision brownish fluid expressed, but decreased amt compared to yesterday.)
Neurological: AO x 3
Objective Data
Lab Data
Lab Results
08/11/24 05:06
08/11/24 05:06
Estimated Creat Clear 109 ml/min 08/11/24 05:06
Total Bilirubin 0.3 mg/dl (0.2-1.3) 08/10/24 04:08
AST 19 U/L (14-36) 08/10/24 04:08
ALT 15 U/L (0-35) 08/10/24 04:08
Alkaline Phosphatase 76 U/L (38-126) 08/10/24 04:08
Most recent labs reviewed.
Micro Results:
08/10/24 04:08 Wound Culture - Preliminary
Abdomen No growth
Gram Stain - Preliminary
08/10/24 CT a/p: Interval removal of the left upper quadrant percutaneous drain with slightly increased size of the residual rim-enhancing collection just superior to the spleen which measures 6.3 x 4.1 cm. There is stable appearance of the right
lower quadrant percutaneous drain with overall similar size of the gas and fluid containing collection within the lower midline abdomen.
--- NOTE | 2024-08-11 12:23 | W.PN.HOSP.TC ---
Today's Communication/Plan
-
Continue antibiotics
Assessment / Plan
Assessment / Plan
Gen-AAOx3, NAD
HEENT-NC, AT, anicteric, clear oral mm
Neck-supple
CV-reg, no M, +S1/S2
Lungs-clear B/L
Abd-soft, NT, ND, right sided abdominal drain in place, colostomy, serosanguineous drainage from bottom of abdominal incision
Ext-no edema
Musculoskeletal-no cyanosis, clubbing
Skin-warm and dry
Neuro-grossly non-focal
Psych-calm, cooperative
Abdominal Abscess - postoperative abscess after Barbour's procedure with diverting colostomy performed on 05/22/2024.
CT scan abdomen/pelvis with IV contrast 08/10 shows stable right lower quadrant percutaneous drain with overall similar size of the gas and fluid collection. Interval removal of the left upper quadrant drain, slight increase size of the perisplenic
fluid collection measuring 6.3 x 4.1 cm. This correlates to known splenic hematoma, complication of her Barbour's procedure in April.
Case discussed with colorectal surgery and interventional radiology. IR feels no safe window of drain placement in the left upper quadrant due to anatomy.
Dr. Farnsworth to see her tomorrow.
IV Meropenem per ID, started 08/10. Fluid culture sent from abdominal wound drainage, Gram stain preliminary shows many WBCs, few gram-negative rods, rare gram-positive cocci.
Mild leukocytosis noted with bandemia. Afebrile. WBC improved overnight.
Continue tramadol as needed for her abdominal pain.
Perforated sigmoid diverticulitis s/p Barbour's / Colostomy Formation / iatrogenic splenic capsular tear - originally admitted April 2024, required prolonged hospitalization. Discharged and readmitted multiple times since, spent time in rehab in
between hospitalizations. Son states that she has only spent 3 days at home since April admission.
Hx LUQ infected perisplenic hematoma - LUQ drain removed 07/30/2024 by IR after drain study showed minimal residual abscess cavity without fistulous communication..
Essential Hypertension - Stable. Continue current med regimen with holding parameters to avoid hypotension.
DM2 without hyperglycemia -glucose 122 this morning. HgbA1C was 6.6% on 07/18/24. At home, she has been on dapagliflozin 5 mg daily, aspart 4 units AC, Mounjaro 2.5 mg subQ every Monday.
In the hospital she is on dapagliflozin, low resistance aspart scale.
Anemia of Chronic Disease -hemoglobin currently stable. Monitor for now. Onset of anemia was in April 2024 when she was admitted for diverticulitis and required subsequent surgery.
Required blood transfusion during most recent hospitalization.
Hyperlipidemia -rosuvastatin.
Hx of aortic coarctation -stented 20 years ago.
Deconditioning - s/p long and complicated recent hospitalizations. PT/OT. Uses a walker at home.
Hx endometrial cancer -s/p hysterectomy.
Hx of breast cancer -s/p mastectomy, chemotherapy.
Obesity due to excess calories
Full code
Updated son at the bedside. All questions answered.
Anticipated Discharge: > 48 hours
Subjective/Interval History
-
Date of Service: August 11, 2024
Patient seen/examined. No complaints.
Objective Data
-
Labs:
Laboratory Results
08/11/24
05:06
WBC 9.2
Hgb 9.9 L
Hct 31.7 L
Plt Count 340
Sodium 140
Potassium 3.9
Chloride 100
Carbon Dioxide 29
BUN 15
Creatinine 0.6
Glucose 122 H
Calcium 9.5
Vital Signs:
Vital Signs
Temp Pulse Resp BP Pulse Ox
98.5 F 90 16 152/75 97
08/11/24 07:10 08/11/24 09:05 08/11/24 07:10 08/11/24 09:05 08/11/24 07:10
I&O
08/10/24 08/11/24 08/12/24
06:59 06:59 06:59
Intake Total 0 / 0
Output Total
Balance 883 / 883
Review of Systems
-
History Source: Patient
All other systems: Reviewed and negative
--- NOTE | 2024-08-11 12:26 | W.PN.CRS1 ---
Today's Communication / Plan
-
as below
Assessment/Plan
-
58-year-old female with PMH of DM, HTN, HLD, endometrial cancer s/p hysterectomy, breast cancer s/p mastectomy and chemo, history of perforated diverticulitis s/p Barbour's procedure on 05/24/2024 (prolonged postoperative course secondary to
intra-abdominal collections in LUQ and right mid abdomen s/p IR drainage, pleural effusion s/p chest tube with pleurodesis, discharged on 07/01; re-admitted from 07/18 to 07/31 requiring upsizing of the right mid drain, ultimate removal of the LUQ
drain; readmitted 08/05 to 08/07 for fall/orthostasis after accidental overmedication with BP med), who presents to the [facility] ED with new drainage from the midline wound; CT showing increase in size of L UQ collection with rim enhancement, now
6.3 x 4.1 cm, stable appearance of the right mid collection with IR drain in place, about seven 3 x 3.2 cm; small subcutaneous collection at the inferior aspect of the midline incision
AFVSS
WBC 9.2 from 11.2, Hb 9.9 from 9.9, creatinine 0.6
�Persistent intra-abdominal collections
-R-mid stable in size without significant drainage from drain, drain unable to maintain suction as well
-LUQ slightly larger with rim-enhancement; per IR, difficult to access percutaneously
�Drainage from midline incision may represent retained seroma that released versus fistula to bowel or abscess cavity
�Will discuss with IR tomorrow for possible drain study versus sinus tract injection
-tPA injection remains an option for the R-mid abdomen
�Continue regular diet, n.p.o. past midnight for possible procedure tmrw
�Continue pain control with Tylenol and tramadol as needed
� Continue IV meropenem; appreciate ID
� Continue DVT PPx with subQ heparin
� Recommend PT, OOB/IS
� Appreciate hospitalist
Subjective Data
Subjective Data
Date of Service: August 11, 2024
No overnight events.
Denies pain.
Denies nausea/vomiting. Tolerating diet.
+ Ostomy function (stool little harder than usual) +voiding
Objective Data
-
Vital Signs
Temp Pulse Resp BP Pulse Ox
98.5 F 90 16 152/75 97
08/11/24 07:10 08/11/24 09:05 08/11/24 07:10 08/11/24 09:05 08/11/24 07:10
Intake & Output
08/10/24 08/11/24 08/12/24
06:59 06:59 06:59
Intake Total 910 / 910
Output Total
Balance 883 / 883
Intake:
Oral fluids 880 / 880
Amount instilled into Drain ( /
Total)
Right Lower Abdomen Jeremi- 30
Luevano
Output:
Drain Output (Total)
Right Lower Abdomen Jeremi-
Luevano
Other:
Number of approximated MODERATE 2
amounts of urine
Number of unmeasured liquid
stools
Colostomy 1
Lab Results
08/11/24 05:06
08/11/24 05:06
Physical Exam
-
General: No Acute Distress and AOx3
HEENT: Grossly Normal
Abdomen: Soft, Non Distended, Non Tender, No Guarding, No Rebound and Other (Ostomy pink and productive of pasty stool; JODIE-27 mL serous, bulb unable to maintain suction)
Skin: Warm and Dry
Wound: No Signs of Infection, No Skin Erythema and Other (Midline incision well-healed except 5 mm opening at inferior aspect with serosanguineous drainage, nontender)
[2024-08-11 13:59] LABS: Glucose - Point of Care 153 mg/dl (70-99)
[2024-08-11] MEDS: NOVOLOG FLEXPEN-LOW RESISTANCE 1 UNITS SC ×2 (13:59→17:35)
[2024-08-11 15:10] VITALS: BP 128/62
--- NOTE | 2024-08-11 15:40 | CM ---
CM reviewed chart. Pt w/mx readmissions 2/2 high readmit risk and exacerbation of chronic condition. Met w/pt and son, explained roled and discussed anticipated dc plan/options. Extenstive pmhx as follows, per H&P- hx DM, HTN, HLD, endometrial
cancer s/p hysterectomy, breast ca s/p mastectomy and chemo, perforated diverticulitis s/p Barbour's procedure on 05/24/2024 (prolonged postop course 2/2 intra-abdominal collections in LUQ and right mid abdomen s/p IR drainage, pleural effusion s/p
CT with pleurodesis,
discharged on 07/01;
re-admitted from 07/18 to 07/31 requiring upsizing of the right mid drain, ultimate removal of the LUQ drain;
readmitted 08/05 to 08/07 for fall/orthostasis related to BP meds;
Pt was home for approx 2 days when new puss like drainage from midline wound was noted;
CT on admit shows increase in size of LUQ collection, R mid collection with IR drain in place, small subcutaneous collection at the inferior aspect of the midline incision. Colon/Rec Surg, ID, IR, PT/OT following. Cont ivabx, ostomy and drain care,
NPO s/p MN for possible IR procedure in tomorrow. POC on-going.
Pt was active with [facility] for Nursing. Iw/RW [employer]-short distances, has first floor set w/no steps, son assists when all ADLs as needed/required. Pt was at [facility] in the past- not interested in returning. Plan is to dc home w/continued home care
when medically stable.
CM/SW will continue to follow to ensure a safe and timely dc.
[2024-08-11] MEDS: LOVENOX 40 MG SC (16:53)
[2024-08-11 17:13] LABS: Glucose - Point of Care 152 mg/dl (70-99)
[2024-08-11] MEDS: COLACE 100 MG PO (20:35)
[2024-08-11] MEDS: SANTYL OINTMENT 1 APPLIC TOPICAL (20:36)
[2024-08-11 21:25] LABS: Glucose - Point of Care 153 mg/dl (70-99)
[2024-08-12] MEDS: TYLENOL 650 MG PO ×3 (04:07→20:38)
[2024-08-12 05:09] VITALS: BMI 29.5
[2024-08-12] MEDS: MERREM 500 MG IV ×2 (05:19→11:37)
[2024-08-12] MEDS: STERILE WATER FOR INJECTION 10 ML IV ×2 (05:19→11:37)
[2024-08-12 07:10] VITALS: BP 147/65
[2024-08-12] MEDS: ALDACTONE 25 MG PO (08:47)
[2024-08-12] MEDS: FARXIGA 5 MG PO (08:48)
[2024-08-12] MEDS: LOPRESSOR 100 MG PO ×2 (08:48→20:40)
[2024-08-12] MEDS: COLACE 100 MG PO ×2 (08:48→20:40)
[2024-08-12] MEDS: CRESTOR 40 MG PO (08:48)
[2024-08-12] MEDS: LOW STRENGTH ASPIRIN 81 MG PO (08:48)
[2024-08-12] MEDS: PROCARDIA XL (EXTENDED RELEASE) 60 MG PO ×2 (08:48→20:39)
[2024-08-12] MEDS: NEURONTIN 100 MG PO ×3 (08:49→23:14)
[2024-08-12] MEDS: SANTYL OINTMENT 1 APPLIC TOPICAL ×2 (08:49→20:40)
[2024-08-12] MEDS: FEOSOL 325 MG PO (08:49)
[2024-08-12] MEDS: COZAAR 50 MG PO ×2 (08:49→20:40)
[2024-08-12] MEDS: ULTRAM 50 MG PO ×2 (08:51→23:13)
--- NOTE | 2024-08-12 09:02 | VNURNOTE ---
Chart reviewed. Patient is current with [facility] nursing. Will continue to follow hospital course.
[2024-08-12 09:09] LABS: Glucose - Point of Care 117 mg/dl (70-99)
[2024-08-12] MEDS: NOVOLOG FLEXPEN-LOW RESISTANCE SC ×3 (09:15→17:39)
[2024-08-12 09:47] VITALS: BMI 29.5
--- NOTE | 2024-08-12 11:09 | W.PN.CRS1 ---
Today's Communication / Plan
-
IR for drain study
Assessment/Plan
-
58-year-old female with PMH of DM, HTN, HLD, endometrial cancer s/p hysterectomy, breast cancer s/p mastectomy and chemo, history of perforated diverticulitis s/p Barbour's procedure on 05/24/2024 (prolonged postoperative course secondary to
intra-abdominal collections in LUQ and right mid abdomen s/p IR drainage, pleural effusion s/p chest tube with pleurodesis, discharged on 07/01; re-admitted from 07/18 to 07/31 requiring upsizing of the right mid drain, ultimate removal of the LUQ
drain; readmitted 08/05 to 08/07 for fall/orthostasis after accidental overmedication with BP med), who presents to the [facility] ED with new drainage from the midline wound; CT showing increase in size of L UQ collection with rim enhancement, now
6.3 x 4.1 cm, stable appearance of the right mid collection with IR drain in place, about seven 3 x 3.2 cm; small subcutaneous collection at the inferior aspect of the midline incision
AFVSS
Jodie drain output: 10ml
�Persistent intra-abdominal collections
-R-mid stable in size without significant drainage from drain, drain unable to maintain suction as well
-LUQ slightly larger with rim-enhancement; per IR, difficult to access percutaneously
�Drainage from midline incision may represent retained seroma vs stitch abscess (PDS in place) vs fistula to bowel or abscess cavity
�IR consult for drain study today
� NPO today for IR procedure. Okay to resume diet post IR.
� Continue pain control with Tylenol and tramadol as needed
� Continue IV meropenem; appreciate ID
� Continue DVT PPx with subQ heparin
� Recommend PT, OOB/IS
� Appreciate hospitalist
- Discussed plan with patient and son at bedside
Subjective Data
Subjective Data
Date of Service: August 12, 2024
Patient states she has no complaints. She has no nausea or vomiting. She has not noticed any further drainage from her lower incision wound. Her colostomy has function. Her right sided drain has little to no output over the past few days.
Objective Data
-
Vital Signs
Temp Pulse Resp BP Pulse Ox
98.8 F 73 16 147/65 97
08/12/24 07:10 08/12/24 08:47 08/12/24 07:10 08/12/24 08:47 08/12/24 07:10
Intake & Output
08/11/24 08/12/24 08/13/24
06:59 06:59 06:59
Intake Total 910 / 910 1420 / 1420
Output Total
Balance 883 / 883 1410 / 1410
Intake:
Oral fluids 880 / 880 1380 / 1380
Amount instilled into Drain ( 40 / 40
Total)
Right Lower Abdomen Jeremi- 40 / 40
Luevano
Output:
Drain Output (Total)
Right Lower Abdomen Jeremi-
Luevano
Other:
Number of approximated MODERATE 2 2
amounts of urine
Number of unmeasured liquid
stools
Colostomy 1
Lab Results
08/11/24 05:06
08/11/24 05:06
Physical Exam
-
General: No Acute Distress and AOx3
Abdomen: Soft, Non Distended, Non Tender and Other (right sided JODIE drain with no output noted)
Wound: Other (small opening at the bottom of the midline incision, no drainage noted, Q-tip with fascia intact, lower suture knot noted)
[2024-08-12 12:21] LABS: Glucose - Point of Care 132 mg/dl (70-99)
[2024-08-12 13:05] VITALS: BP 125/74; BP 133/75; PULSE 75; PULSE 80
--- NOTE | 2024-08-12 13:21 | W.PN.ID1 ---
Date of Service
Date of Service: August 12, 2024
Today's Communication
Discontinue antibiotics and observe.
Assessment / Plan
LUQ intra-abdominal abscess
- hx post-op LUQ infected hematoma s/p perc drain, Cx Klebsiella pneumoniae, ESBL-Ecoli s/p Ertapenem (05/31 to 07/29)
-LUQ drain removed 07/27/24
-LUQ fluid collection has increased in size with rim-enhancement, cannot safely aspirate per IR
Anterior midline lower abdominal incision drainage
-?fistula communication with underlying abscess
- cx pending
Anterior midline abdominal collection/abscess
- s/p drain placement (06/10/24) and recent upsizing of drain (07/27/24)
- Abscess cultures 07/17: staph epi, strep species x 2 s/p Ertapenem (05/31 to 07/29)
Hx Diverticulitis with diverticular perforation
- s/p diverting colostomy (05/22/2024).
- Intra-op splenic capsular tear with subsequent hematoma development
Recommendation:
- Patient clinically stable, without leukocytosis or fever.
- Discontinue further antibiotics with close clinical observation.
- Follow incision culture
- For sinus tract/drain study to assess for fistula
- May need to reposition or upsize midline drain as currently no output.
- Follow clinically
Chief Complaint
-: Other (Abd abscesses)
Subjective / Review of Systems
Review of Systems: No Fever, No Chills and No Abdominal Pain
Vital Signs / Physical Exam
Vital Signs
Vital Signs
Temp Pulse Resp BP Pulse Ox
98.8 F 73 16 147/65 97
08/12/24 07:10 08/12/24 08:47 08/12/24 07:10 08/12/24 08:47 08/12/24 11:05
Physical Exam
Constitutional: No Acute Distress and Comfortable
Eyes: Sclera Anicteric
Cardiovascular: Regular Rate and S1/S2
Pulmonary: Clear
Gastrointestinal: Soft, Non Tender, Non Distended and Other (Colostomy with brown stool. Midline incision without significant drainage.)
Extremities: Edema; Negative Cyanosis or Erythema
Neurological: AO x 3
Objective Data
Lab Data
Lab Results
08/11/24 05:06
08/11/24 05:06
Estimated Creat Clear 109 ml/min 08/11/24 05:06
Total Bilirubin 0.3 mg/dl (0.2-1.3) 08/10/24 04:08
AST 19 U/L (14-36) 08/10/24 04:08
ALT 15 U/L (0-35) 08/10/24 04:08
Alkaline Phosphatase 76 U/L (38-126) 08/10/24 04:08
Most recent labs reviewed.
CT Scan: Image Reviewed and Report Reviewed
Micro Results:
08/10/24 04:08 Wound Culture - Final
Abdomen Gram Stain - Final
Imaging:
08/10/24 CT a/p: Interval removal of the left upper quadrant percutaneous drain with slightly increased size of the residual rim-enhancing collection just superior to the spleen which measures 6.3 x 4.1 cm. There is stable appearance of the right
lower quadrant percutaneous drain with overall similar size of the gas and fluid containing collection within the lower midline abdomen.
Care Review
Plan reviewed with: Nurse and Other (Clinical Pharmacist)
--- NOTE | 2024-08-12 13:45 | W.PN.HOSP.TC ---
Today's Communication/Plan
-
Follow up on IR drain study
Keep NPO
Per ID stop Atb and monitor for now
Assessment / Plan
Assessment / Plan
Physical Exam
NAD, resting comfortably in bed
Scleral anicteric
Moist mucous membranes
No JVD
CTA bilateral
Normal S1-S2 no murmurs
Soft nontender nondistended bowel sounds active
JODIE drain without output
No peripheral pitting edema
Moves extremities spontaneously
AAOx3
Assessment and Plan
Intraabdominal abscess - multiple
-Adter hartmans with diverting colostomy
-Plan for IR drain study to assess of there is a fistula
-I suspect will likely require intraabd washout
-Discussed case with ID and agree
-Follow incision culture
Perforated sigmoid divertgiculitis s/p Caridad/colostomy formation/iatrogenic splenic capsular tear
-Continue colostomy care
-Continue follow-up with colorectal surgery
Left upper quadrant infected perisplenic hematoma
-Drain removed 07/30/2024
Hypertension
-Continue antihypertensive
DM type II without hyperglycemia
-A1c 6 point
-Continue oral hypoglycemics
Hyperlipidemia
-Continue Lipitor
History of aortic coarctation
-S/p stent 20 years ago
Deconditioning
-Chronically ill complicated recent hospitalizations
-Uses walker at home
-PT/OT as tolerated
Endometrial cancer
-S/p
History of breast cancer
-S/p mastectomy and chemotherapy
Anticipated Discharge: > 48 hours
Subjective/Interval History
-
Date of Service: August 12, 2024
Seen and examined. No new complaints. No acute overnight events
Son at bedside updated
Currently no pain
Objective Data
-
Vital Signs:
Vital Signs
Temp Pulse Resp BP Pulse Ox
98.8 F 73 16 147/65 97
08/12/24 07:10 08/12/24 08:47 08/12/24 07:10 08/12/24 08:47 08/12/24 11:05
I&O
08/11/24 08/12/24 08/13/24
06:59 06:59 06:59
Intake Total 910 / 910 1420 / 1420
Output Total
Balance 883 / 883 1410 / 1410
--- NOTE | 2024-08-12 14:52 | WOUNDNOTE ---
DISTAL ABDOMINAL INCISION
--- NOTE | 2024-08-12 14:52 | WOUNDNOTE ---
DISTAL ABDOMINAL INCISION
--- NOTE | 2024-08-12 14:55 | WOUNDNOTE ---
[facility] RN note: Patient admitted with intra-abdominal abscess and blockage of JODIE drain.
Patient lives with her son and current with [facility].
PMH: From physician report 'Past Medical History: Reports HTN (Resistant hypertension on multi antihypertensives) and NIDDM
Additional Past Medical History:
Left pleural effusion status post chest tube and discontinuation
Chronic anemia
Chronic back pain
Atelectasis
Past Surgical History: Reports Bowel Resection (perforated sigmoid diverticulitis status post Caridad's resection and ostomy creation complicated by splenic capsular tear/hematoma)
Additional Past Surgical History:
Perforated diverticulitis status post resection and colostomy'.
Wound Location and type/assessment: Patient known to service, last seen, 08/02/24. for Colostomy needs and has stage 3 sacral pressure injury. Colostomy stoma pink and flat, output with hard formed stool, discussed diet with golf superintendent per
patient. Started on a stool softener also, son states at bedside. Appliance changed yesterday, next due on Monday. Convex wafers, pouches and Mario seal brought to . Nursing can continue to assist patient in changing appliance. Sacrum with healing
stage 3 PI, pink and yellow fibrin, less redness surrounding ulcer. Patient using air chair cushion while in chair and in bed. Distal abdominal incision can just fit tip of Q tip into opening, does not tunnel or undermine, small drainage, no odor.
Patient turns self, heels are intact.
Appetite: on an 1800 calorie diet.
Pressure redistribution devices in place: Accumax, Air chair cushion. Pressure ulcer prevention measures reviewed.
Plan: Sacral dressing changed with Santyl, alginate, silicone foam and barrier cream to periwound. Dry dressing changed on abdomen. Ostomy supplies at bedside. Will confirm orders with hospitalist and updated with HARMONY Moreno.
Care plan to be updated and will follow as needed.
Recommend follow up at wound care center upon discharge.
[2024-08-12 15:10] VITALS: BP 130/65
--- NOTE | 2024-08-12 15:32 | W.PN.UPDATE ---
Update Note
Progress Note Update
IR was asked to perform drain check on the RLQ drain. Do to unforseen emergencies we will do this tomorrow.
[2024-08-12 16:55] LABS: Glucose - Point of Care 144 mg/dl (70-99)
--- NOTE | 2024-08-12 17:35 | CM ---
Patient seen at bedside with eitan Landers
PT rec HH - Patient current with [facility]
IR tomorrow
PLAN: Home with [facility]
[2024-08-12] MEDS: LOVENOX 40 MG SC (18:17)
[2024-08-12 21:54] LABS: Glucose - Point of Care 144 mg/dl (70-99)
[2024-08-12 23:15] VITALS: BP 150/68
[2024-08-13 06:00] VITALS: BMI 29.3
[2024-08-13 06:30] LABS: Glucose - Point of Care 133 mg/dl (70-99)
[2024-08-13 08:07] VITALS: BP 135/65
[2024-08-13] MEDS: NOVOLOG FLEXPEN-LOW RESISTANCE SC ×2 (08:22→16:58)
[2024-08-13] MEDS: LOPRESSOR 100 MG PO ×2 (08:26→20:16)
[2024-08-13] MEDS: LOW STRENGTH ASPIRIN 81 MG PO (08:27)
[2024-08-13] MEDS: FARXIGA 5 MG PO (08:27)
[2024-08-13] MEDS: PROCARDIA XL (EXTENDED RELEASE) 60 MG PO ×2 (08:27→20:16)
[2024-08-13] MEDS: CRESTOR 40 MG PO (08:27)
[2024-08-13] MEDS: COZAAR 50 MG PO ×2 (08:27→20:16)
[2024-08-13] MEDS: ALDACTONE 25 MG PO (08:27)
[2024-08-13] MEDS: FEOSOL 325 MG PO (08:27)
[2024-08-13] MEDS: COLACE 100 MG PO ×2 (08:27→20:12)
[2024-08-13] MEDS: NEURONTIN 100 MG PO ×3 (08:28→22:06)
[2024-08-13] MEDS: SANTYL OINTMENT 1 APPLIC TOPICAL ×2 (08:28→20:13)
[2024-08-13] MEDS: ULTRAM 50 MG PO ×2 (08:33→22:06)
--- NOTE | 2024-08-13 09:26 | W.PN.UPDATE ---
Update Note
Progress Note Update
Attempted to see patient, in IR. Will follow up with IR's plan later today.
[2024-08-13] MEDS: TYLENOL 650 MG PO ×2 (09:51→20:11)
--- NOTE | 2024-08-13 11:03 | CM ---
Patient seen at bedside.
Stated R drain replaced today in IR
& drain study
Patient current with [facility]
PLAN: [facility]
[2024-08-13 11:32] LABS: Glucose - Point of Care 234 mg/dl (70-99)
[2024-08-13] MEDS: NOVOLOG FLEXPEN-LOW RESISTANCE 2 UNITS SC (11:35)
[2024-08-13 12:36] VITALS: BP 115/63
--- NOTE | 2024-08-13 13:00 | W.PN.HOSP.TC ---
Today's Communication/Plan
-
pending colorectal surgery recs and drain study follow up
Assessment / Plan
Assessment / Plan
Physical Exam
NAD, resting comfortably in bed
Scleral anicteric
Moist mucous membranes
No JVD
CTA bilateral
Normal S1-S2 no murmurs
Soft nontender nondistended bowel sounds active
JODIE drain without output
No peripheral pitting edema
Moves extremities spontaneously
AAOx3
Assessment and Plan
Intraabdominal abscess - multiple
-After Hartmans with diverting colostomy
-Plan for IR drain study to assess of there is a fistula
-I suspect will likely require intraabd washout
-Discussed case with ID and agree
-Follow incision culture
Perforated sigmoid diverticulitis s/p Caridad/colostomy formation/iatrogenic splenic capsular tear
-Continue colostomy care
-Continue follow-up with colorectal surgery
Left upper quadrant infected perisplenic hematoma
-Drain removed 07/30/2024
Hypertension
-Continue antihypertensive
DM type II without hyperglycemia
-A1c 6 point
-Continue oral hypoglycemics
Hyperlipidemia
-Continue Lipitor
History of aortic coarctation
-S/p stent 20 years ago
Deconditioning
-Chronically ill complicated recent hospitalizations
-Uses walker at home
-PT/OT as tolerated
Endometrial cancer
-S/p
History of breast cancer
-S/p mastectomy and chemotherapy
Anticipated Discharge: 24 - 48 hours
Subjective/Interval History
-
Date of Service: August 13, 2024
seen and examiend. no new comaplitans.
upset that she was kept NPO yesterday for a study that was not completed and was only told baout that in the late afternoon.
she states being a diabetic, she would think that they would do diabetics first. she is upset but verbalizes that it is not my fault as I told her I was sorry that had happened.
Objective Data
-
Vital Signs:
Vital Signs
Temp Pulse Resp BP Pulse Ox
98.2 F 65 17 115/63 99
08/13/24 12:36 08/13/24 12:36 08/13/24 12:36 08/13/24 12:36 08/13/24 12:36
I&O
08/12/24 08/13/24 08/14/24
06:59 06:59 06:59
Intake Total 1420 / 1420 520 / 520
Output Total
Balance 1410 / 1410 520 / 520
--- NOTE | 2024-08-13 13:32 | PN.CDI ---
CDI
- -
CDI:
Physician Documentation Request
Admit Date: 08/10/24 06:31
Dear Doctor Ranjit,
Please review the following and provide your response in the progress notes.
Clinical Indicators:
Pt admitted with multiple intra-abdominal abscesses after Hartmans procedure
Documented per [facility] note 08/12, ' Patient known to service, last seen, 08/02/24. for Colostomy needs and has stage 3 sacral pressure injury... Sacrum with healing stage 3 PI, pink and yellow fibrin, less redness surrounding ulcer. Patient using air
chair cushion while in chair and in bed....Sacral dressing changed with Santyl, alginate, silicone foam and barrier cream to periwound. ...'
Physician documentation of the type and location of wounds is required for compliant documentation. Based on the above clinical findings and your assessment, please provide the following in your progress note:
1. Location of the ulcer/wound, including laterality.
2. Type (etiology) of ulcer/wound:
- Pressure (decubitus) ulcer
- Non-pressure ulcer
- Other
Use of terms such as suspected, likely, concern for, or probable (associated with a specific diagnosis that is being evaluated, monitored, or treated as if it exists) are acceptable and can be coded in the inpatient setting, when documented at the
time of discharge.
Thank you,
Amara Jean Baptiste RN
CDI Specialist
[facility]
Please use your independent medical judgment in providing your response.
*Source: National Pressure Ulcer Advisory Panel (NPUAP)
--- NOTE | 2024-08-13 13:37 | PN.CDI ---
CDI
- -
CDI:
Physician Documentation Request
Admit Date: 08/10/24 06:31
Dear Doctor Ranjit,
Please review the following and provide your response in the progress notes.
Clinical Indicators:
Pt admitted with multiple intra-abdominal abscesses after Hartmans procedure
Documented in Nutrition consult 08/12, ' - NPO awaiting IR procedure. Rd discussed Pt and son had 08/11 following a 3pm diet change from Regular to 2000kcal DM. They are requesting that she be advanced to a Regular diet with Glucerna supplement
when diet advanced is indicated....CBW (08/12) 182lb 12.8oz BMI 29.5 overwt/ht, (08/11) 186lb
Wt hx per previous admissions- (08/05) 187lb, (08/02) 192lb, (07/18) 207lb, (06/21) 205lb, (05/31) 233lb Significant 28% weightloss over the past 2 months of hospitalizations......Pt meets ASPEN criteria for severe protein calorie malnutrition of
chronic illness with >5% wt loss x 1month, prolonged decreased intake <75% related to frequent hospitalizations over 1month. Pt reports trying to increase protein intake with Core Power supplement, Ensure max or Glucerna supplements during
hospitalization and at home. To consider diet liberalization to Regular with Glucerna daily. Elimination of concentrated sweets encouraged. Nutrition to follow diet advancement, wound healing, wt trend as per level of care. '
Based on the above information and your assessment, which of the following most accurately represents the patient's nutritional status?
Severe Protein Calorie Malnutrition
Other (please specify)
[place] Criteria (ACP Hospitalist 2017)
2 or more criteria must be present for either
non severe or severe malnutrition
Note that the criteria differs related to the
presence of an acute or chronic illness
Acute Illness Chronic Illness
Energy Intake Non Severe: <75% for >7 days Non Severe: <75% for >1 month
Severe: <50% for >5 days Severe: <75% for >1 month
Weight Loss Non Severe: 1-2% over 1 week Non Severe: 5% over 1 month
5% over 1 month 7.5% over 3 months
7.5% over 3 months 10% over 6 months
1 year N/A 20% over 1 year
Severe: >2% over 1 week Severe: >5% over 1 month
>5% over 1 month >7.5% over 3 months
>7.5% over 3 months >10% over 6 months
1 year N/A >20% over 1 year
Body Fat Non Severe: Mild Decrease Non Severe: Mild Loss
Severe: Moderate Decrease Severe: Severe Loss
Muscle Mass Non Severe: Mild Decrease Non Severe: Mild Loss
Severe: Moderate Decrease Severe: Severe Loss
Fluid Accumulation Non Severe: Mild Accumulation Non Severe: Mild Accumulation
Severe: Moderate to severe Severe: Moderate to severe
accumulation accumulation
Reduced Business Information Consultant Strength Non Severe: N/A Non Severe: N/A
Severe: Measurably reduced Severe: Measurably reduced
Use of terms such as suspected, likely, concern for, or probable (associated with a specific diagnosis that is being evaluated, monitored, or treated as if it exists) are acceptable and can be coded in the inpatient setting, when documented at the
time of discharge.
Thank you,
Amara Jean Baptiste RN
CDI Specialist
[place] [facility]
Please use your independent medical judgment in providing your response.
--- NOTE | 2024-08-13 14:14 | W.PN.ID1 ---
Date of Service
Date of Service: August 13, 2024
Today's Communication
Continue close observation off antibiotics. Monitor white count temperature curve. Follow drain output.
Assessment / Plan
LUQ intra-abdominal abscess
- hx post-op LUQ infected hematoma s/p perc drain, Cx Klebsiella pneumoniae, ESBL-Ecoli s/p Ertapenem (05/31 to 07/29)
-LUQ drain removed 07/27/24
-LUQ fluid collection has increased in size with rim-enhancement, cannot safely aspirate per IR
Anterior midline lower abdominal incision drainage
-?fistula communication with underlying abscess
- cx 'few mixed skin negrito'. GNR's and GPC's seen on microscopy.
Anterior midline abdominal collection/abscess
- s/p drain placement (06/10/24) and recent upsizing of drain (07/27/24)
- Abscess cultures 07/17: staph epi, strep species x 2 s/p Ertapenem (05/31 to 07/29)
Hx Diverticulitis with diverticular perforation
- s/p diverting colostomy (05/22/2024).
- Intra-op splenic capsular tear with subsequent hematoma development
Recommendation:
- Patient clinically stable, without leukocytosis or fever.
- Discontinue further antibiotics with close clinical observation.
- For sinus tract/drain study to assess for fistula
- Follow clinically
����������������������������������������������������������
Chief Complaint
-: Other (Abd abscesses)
Subjective / Review of Systems
Patient seen and examined. Denies fevers or chills. Denies significant abdominal discomfort.
Vital Signs / Physical Exam
Vital Signs
Vital Signs
Temp Pulse Resp BP Pulse Ox
98.2 F 65 17 115/63 99
08/13/24 12:36 08/13/24 12:36 08/13/24 12:36 08/13/24 12:36 08/13/24 12:36
Physical Exam
Constitutional: No Acute Distress, Comfortable and Non-toxic
Eyes: Sclera Anicteric
Cardiovascular: Regular Rate and S1/S2; Negative S3/S4
Pulmonary: Clear and Non Labored
Gastrointestinal: Soft, Non Tender, Non Distended and Other (Colostomy with brown stool. Midline incision without significant drainage. Right midline JODIE drain with seropurulent fluid.)
Extremities: Edema; Negative Cyanosis or Erythema
Neurological: AO x 3
Psychological: Calm
Objective Data
Lab Data
Estimated Creat Clear 109 ml/min 08/11/24 05:06
Total Bilirubin 0.3 mg/dl (0.2-1.3) 08/10/24 04:08
AST 19 U/L (14-36) 08/10/24 04:08
ALT 15 U/L (0-35) 08/10/24 04:08
Alkaline Phosphatase 76 U/L (38-126) 08/10/24 04:08
Most recent labs reviewed.
Micro Results:
08/10/24 04:08 Wound Culture - Final
Abdomen Gram Stain - Final
Imaging:
08/10/24 CT a/p: Interval removal of the left upper quadrant percutaneous drain with slightly increased size of the residual rim-enhancing collection just superior to the spleen which measures 6.3 x 4.1 cm. There is stable appearance of the right
lower quadrant percutaneous drain with overall similar size of the gas and fluid containing collection within the lower midline abdomen.
Care Review
Plan reviewed with: Nurse and Physician
[2024-08-13 15:08] LABS: Hematocrit 33.9 % (37.0-47.0); Hemoglobin 10.6 g/dL (12.0-16.0); Mean Corp Hgb Conc. 31.3 g/dL (33.0-37.0); Mean Corpuscular Hgb 26.7 pg (27.0-31.0); Mean Corpuscular Volume 85.4 fL (81.0-99.0); Mean Platelet Volume 9.6 fL (7.4-10.4); Platelet Count 382 10^3/uL (130-400); Red Blood Cell Count 3.97 10^6/uL (4.20-5.40); Red Cell Dist. Width 17.3 % (11.5-14.5); White Blood Cell Count 12.4 10^3/uL (4.8-10.8)
[2024-08-13 15:20] LABS: Blood Urea Nitrogen 19 mg/dl (7-17); Calcium 9.3 mg/dl (8.4-10.2); Carbon Dioxide 30 mmol/L (22-30); Chloride 96 mmol/L (98-107); Estimated Creatinine Clearance 92 ml/min; Glucose 151 mg/dl (70-99); Potassium 4.2 mmol/L (3.5-5.1); Sodium 138 mmol/L (135-145); eGFR > 60.00
[2024-08-13 16:32] VITALS: BP 136/71
[2024-08-13 16:56] LABS: Glucose - Point of Care 143 mg/dl (70-99)
[2024-08-13] MEDS: LOVENOX 40 MG SC (17:17)
[2024-08-13 21:53] LABS: Glucose - Point of Care 147 mg/dl (70-99)
[2024-08-13 23:27] VITALS: BP 131/73
[2024-08-14] MEDS: TYLENOL 650 MG PO ×3 (03:55→21:05)
[2024-08-14 04:02] VITALS: BMI 29.1
[2024-08-14 07:01] LABS: Hematocrit 31.5 % (37.0-47.0); Hemoglobin 10.1 g/dL (12.0-16.0); Mean Corp Hgb Conc. 32.1 g/dL (33.0-37.0); Mean Corpuscular Hgb 27.2 pg (27.0-31.0); Mean Corpuscular Volume 84.9 fL (81.0-99.0); Mean Platelet Volume 10.2 fL (7.4-10.4); Platelet Count 319 10^3/uL (130-400); Red Blood Cell Count 3.71 10^6/uL (4.20-5.40); Red Cell Dist. Width 17.3 % (11.5-14.5); White Blood Cell Count 10.9 10^3/uL (4.8-10.8)
[2024-08-14 07:50] LABS: Blood Urea Nitrogen 21 mg/dl (7-17); Carbon Dioxide 28 mmol/L (22-30); Chloride 100 mmol/L (98-107); Estimated Creatinine Clearance 108 ml/min; Glucose 108 mg/dl (70-99); Potassium 4.2 mmol/L (3.5-5.1); Sodium 140 mmol/L (135-145); eGFR > 60.00
[2024-08-14 08:00] VITALS: BP 140/67
[2024-08-14 08:04] LABS: Glucose - Point of Care 129 mg/dl (70-99)
[2024-08-14] MEDS: NOVOLOG FLEXPEN-LOW RESISTANCE SC ×2 (09:36→18:17)
[2024-08-14] MEDS: SANTYL OINTMENT 1 APPLIC TOPICAL ×2 (09:36→21:02)
[2024-08-14] MEDS: ALDACTONE 25 MG PO (09:37)
[2024-08-14] MEDS: LOW STRENGTH ASPIRIN 81 MG PO (09:37)
[2024-08-14] MEDS: PROCARDIA XL (EXTENDED RELEASE) 60 MG PO ×2 (09:37→21:02)
[2024-08-14] MEDS: FARXIGA 5 MG PO (09:38)
[2024-08-14] MEDS: NEURONTIN 100 MG PO ×3 (09:38→21:04)
[2024-08-14] MEDS: COZAAR 50 MG PO ×2 (09:38→21:03)
[2024-08-14] MEDS: CRESTOR 40 MG PO (09:39)
[2024-08-14] MEDS: COLACE 100 MG PO ×2 (09:39→21:02)
[2024-08-14] MEDS: LOPRESSOR 100 MG PO ×2 (09:39→21:02)
[2024-08-14] MEDS: FEOSOL 325 MG PO (09:39)
--- NOTE | 2024-08-14 11:24 | W.PN.ID1 ---
Date of Service
Date of Service: August 14, 2024
Today's Communication
Continue off antibiotics. Continue to monitor drain output and clinical presentation.
Assessment / Plan
LUQ intra-abdominal abscess
- hx post-op LUQ infected hematoma s/p perc drain, Cx Klebsiella pneumoniae, ESBL-Ecoli s/p Ertapenem (05/31 to 07/29)
-LUQ drain removed 07/27/24
-LUQ fluid collection has increased in size with rim-enhancement, cannot safely aspirate per IR
Anterior midline lower abdominal incision drainage
-?fistula communication with underlying abscess
- cx 'few mixed skin negrito'. GNR's and GPC's seen on microscopy.
- No further drainage at present.
Anterior right-midline abdominal collection/abscess
- s/p drain placement (06/10/24) and recent upsizing of drain (07/27/24)
- Abscess cultures 07/17: staph epi, strep species x 2 s/p Ertapenem (05/31 to 07/29)
- minimal drainage at present
Hx Diverticulitis with diverticular perforation
- s/p diverting colostomy (05/22/2024).
- Intra-op splenic capsular tear with subsequent hematoma development
Recommendation:
- Patient clinically stable, without leukocytosis or fever.
- Continue off antibiotics, with close clinical observation.
- For sinus tract/drain study suspicious for communication with small bowel.
- Continue to follow clinically
����������������������������������������������������������
Chief Complaint
-: Other (Abd abscesses)
Subjective / Review of Systems
Review of Systems: No Fever, No Chills and No Abdominal Pain
Vital Signs / Physical Exam
Vital Signs
Vital Signs
Temp Pulse Resp BP Pulse Ox
98.8 F 83 15 140/67 98
08/14/24 08:00 08/14/24 09:39 08/14/24 08:00 08/14/24 09:39 08/14/24 08:00
Physical Exam
Constitutional: No Acute Distress, Comfortable, Chronically Ill and Non-toxic
Eyes: Sclera Anicteric
Cardiovascular: Regular Rate and S1/S2; Negative S3/S4
Pulmonary: Clear and Non Labored
Gastrointestinal: Soft, Non Tender, Non Distended and Other (Colostomy with brown stool. Midline incision without drainage. Right midline JODIE drain with scant seropurulent fluid.)
Extremities: Edema; Negative Cyanosis or Erythema
Neurological: AO x 3
Psychological: Calm
Objective Data
Lab Data
Lab Results
08/14/24 05:58
08/14/24 05:58
Estimated Creat Clear 108 ml/min 08/14/24 05:58
Total Bilirubin 0.3 mg/dl (0.2-1.3) 08/10/24 04:08
AST 19 U/L (14-36) 08/10/24 04:08
ALT 15 U/L (0-35) 08/10/24 04:08
Alkaline Phosphatase 76 U/L (38-126) 08/10/24 04:08
Most recent labs reviewed.
Micro Results:
08/10/24 04:08 Wound Culture - Final
Abdomen Gram Stain - Final
Imaging:
08/10/24 CT a/p: Interval removal of the left upper quadrant percutaneous drain with slightly increased size of the residual rim-enhancing collection just superior to the spleen which measures 6.3 x 4.1 cm. There is stable appearance of the right
lower quadrant percutaneous drain with overall similar size of the gas and fluid containing collection within the lower midline abdomen.
Care Review
Plan reviewed with: Physician (Hospitalist)
[2024-08-14 12:08] VITALS: BP 99/58
[2024-08-14 12:12] VITALS: BP 98/59
--- NOTE | 2024-08-14 12:33 | W.PN.CRS1 ---
Today's Communication / Plan
-
Continue current care.
Assessment/Plan
-
Patient with history of Caridad's resection complicated by abdominal abscess(s).
1. WBC down to 10.9. Afebrile. Off antibiotics. ID following.
2. Tube study and tube exchange by IR yesterday appreciated. I did review the images and results with Dr. Ramirez of radiology. The report officially says that there may be a fistula to the smal bowel. To my eyes it looks more like a large
bowel fistula. Also the output from the drain is more consistent with large bowel contents than bile. I am suspicious for [place] cutaneous fistula to the drain. Given this question, Dr. Ramirez said he would repeat the tube study either tomorrow or
Monday to better assess anatomy. In the meantime, given the likely fistula and the fact that she is almost 3 months post colostomy creation, it may be reasonable to consider taking her back to the operating room for exploratory laparotomy with
possible partial bowel resection in regards to the potential fistula, potential drainage of the perisplenic collection as well, and even potentially colostomy takedown. This will be best approached in an open fashion. I have taken it upon myself
to tentatively schedule her for such an operation next Monday. I am anticipating bowel prep Monday, colonoscopy by me Monday, followed by surgery Monday. I discussed this option with the patient in great detail this
morning. I did emphasize that this is not an urgent operation, however I fear with the likely fistula and her frequent readmissions for the same issue, that surgery may be ultimately necessary. She was quite anxious and a bit overwhelmed with the
information I relayed. She relates that she was hoping to enjoy Thanksgiving and not be recovering from another major operation. She relates that her daughter is flying into town this weekend with plans for staying for a week for Thanksgiving.
Questions she asked include 'is this going to be a dangerous operation '; 'if there a chance I might '; 'is there a chance the fistula comes back '. I did my best to address her questions. Obviously there are many risks with such an operation.
I also emphasized that the colostomy takedown may or may not be feasible depending on intraoperative findings. She relays that she will discuss this option with her family members and let me know within next few. The above information was relayed
to the other physicians caring for her.
Subjective Data
Subjective Data
Date of Service: August 14, 2024
Some discomfort around drain site.
Otherwise no complaints.
Objective Data
-
Vital Signs
Temp Pulse Resp BP Pulse Ox
98.8 F 83 15 140/67 98
08/14/24 08:00 08/14/24 09:39 08/14/24 08:00 08/14/24 09:39 08/14/24 08:00
Intake & Output
08/13/24 08/14/24 08/15/24
06:59 06:59 06:59
Intake Total 1700 / 1700
Output Total 690 / 690
Balance 1010 / 1010
Intake:
Oral fluids 1640 / 1640
Amount instilled into Drain ( 60 /
Total)
Right Lower Abdomen Jeremi-
Luevano
Right Lower Abdomen Jeremi-
Luevano Placed in IR
Output:
Drain Output (Total)
Right Lower Abdomen Jeremi-
Luevano Placed in IR
Urine, Voided 675 / 675
Other:
Number of approximated SMALL 1
amounts of urine
Number of approximated MODERATE 1
amounts of urine
Number of approximated LARGE 2
amounts of urine
How many times incontinent 3
MODERATE amount urine
Lab Results
08/14/24 05:58
08/14/24 05:58
Physical Exam
-
General: No Acute Distress
Chest: Clear
Cardiovascular: Regular Rate & Rhythm
Abdomen: Soft, Non Distended, Tender (at drain site) and Other (drain with mucopurulent output)
Incision: No Skin Erythema
Data Reviewed
-
Diagnostic Radiology: Image Reviewed, Report Reviewed and Discussed with Radiology
--- NOTE | 2024-08-14 12:41 | CM ---
Patient seen at bedside
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
Patient speaking with son on phone.
[facility] Current
PLAN: discharge plans depends on patient progress. CM continue to follow
--- NOTE | 2024-08-14 12:59 | W.PN.HOSP.TC ---
Addendum entered and electronically signed by Rene Church MD 08/14/24 17:21:
stage 3 sacral pressure injury
Addendum entered and electronically signed by Rene Church MD 08/14/24 17:18:
Severe Protein Calorie Malnutrition
Original Note:
Today's Communication/Plan
-
reepat drain study with IR in enext 1-2days
possible OR for open ex lap next week sometime
Assessment / Plan
Assessment / Plan
Physical Exam
NAD, resting comfortably in bed
Scleral anicteric
Moist mucous membranes
No JVD
CTA bilateral
Normal S1-S2 no murmurs
Soft nontender nondistended bowel sounds active
JODIE drain with little output yellow/white color
No peripheral pitting edema
Moves extremities spontaneously
AAOx3
Assessment and Plan
Intraabdominal abscess - multiple
-After [facility]mans with diverting colostomy
-Colorectal surgery reviewed IR drain study with Ms. kaur. Plan to repeat on or Monday.
-Per colorectal surgery will likely go back to the OR for exploratory laparotomy for possible fistula and to assess if this perisplenic fluid collection can be drained and even reverse the colostomy. She is scheduled for potential lower early next
week however could be pushed to after the holidays.
Colorectal surgery would also like to plan for a C-scope on Monday and begin bowel prep on Monday
-Incision culture no growth
Perforated sigmoid diverticulitis s/p Caridad/colostomy formation/iatrogenic splenic capsular tear
-Continue colostomy care
-Continue follow-up with colorectal surgery
Left upper quadrant infected perisplenic hematoma
-Drain removed 07/30/2024
Hypertension
-Continue antihypertensive
DM type II without hyperglycemia
-A1c 6 point
-Continue oral hypoglycemics
Hyperlipidemia
-Continue Lipitor
History of aortic coarctation
-S/p stent 20 years ago
Deconditioning
-Chronically ill complicated recent hospitalizations
-Uses walker at home
-PT/OT as tolerated
Endometrial cancer
-S/p
History of breast cancer
-S/p mastectomy and chemotherapy
Anticipated Discharge: > 48 hours
Subjective/Interval History
-
Date of Service: August 14, 2024
Seen and examined. No new complaints. No acute overnight events
Objective Data
-
Labs:
Laboratory Results
08/14/24
05:58
WBC 10.9 H
Hgb 10.1 L
Hct 31.5 L
Plt Count 319
Sodium 140
Potassium 4.2
Chloride 100
Carbon Dioxide 28
BUN 21 H
Creatinine 0.6
Glucose 108 H
Calcium 9.0
Vital Signs:
Vital Signs
Temp Pulse Resp BP Pulse Ox
98.8 F 83 15 140/67 98
08/14/24 08:00 08/14/24 09:39 08/14/24 08:00 08/14/24 09:39 08/14/24 08:00
I&O
08/13/24 08/14/24 08/15/24
06:59 06:59 06:59
Intake Total 1700 / 1700
Output Total 690 / 690
Balance 1010 / 1010
[2024-08-14 15:31] LABS: Glucose - Point of Care 154 mg/dl (70-99)
[2024-08-14] MEDS: NOVOLOG FLEXPEN-LOW RESISTANCE 1 UNITS SC (15:31)
[2024-08-14 17:26] VITALS: BP 148/81
[2024-08-14] MEDS: LOVENOX 40 MG SC (18:15)
[2024-08-14 19:08] LABS: Glucose - Point of Care 158 mg/dl (70-99)
[2024-08-14 22:44] LABS: Glucose - Point of Care 178 mg/dl (70-99)
[2024-08-14 23:00] VITALS: BP 165/80
[2024-08-15] MEDS: ULTRAM 50 MG PO ×3 (01:18→21:46)
[2024-08-15] MEDS: TYLENOL 650 MG PO ×3 (04:04→20:40)
[2024-08-15 05:46] VITALS: BMI 29.5
[2024-08-15 06:31] LABS: Hematocrit 30.8 % (37.0-47.0); Hemoglobin 9.7 g/dL (12.0-16.0); Mean Corp Hgb Conc. 31.5 g/dL (33.0-37.0); Mean Corpuscular Hgb 27.4 pg (27.0-31.0); Mean Platelet Volume 10.2 fL (7.4-10.4); Platelet Count 304 10^3/uL (130-400); Red Blood Cell Count 3.54 10^6/uL (4.20-5.40); Red Cell Dist. Width 17.2 % (11.5-14.5); White Blood Cell Count 11.2 10^3/uL (4.8-10.8)
[2024-08-15 06:56] LABS: Blood Urea Nitrogen 23 mg/dl (7-17); Calcium 9.3 mg/dl (8.4-10.2); Carbon Dioxide 26 mmol/L (22-30); Chloride 100 mmol/L (98-107); Estimated Creatinine Clearance 93 ml/min; Glucose 133 mg/dl (70-99); Potassium 4.2 mmol/L (3.5-5.1); Sodium 141 mmol/L (135-145); eGFR > 60.00
[2024-08-15 07:05] VITALS: BP 139/65
[2024-08-15 07:40] LABS: Glucose - Point of Care 139 mg/dl (70-99)
[2024-08-15] MEDS: LOW STRENGTH ASPIRIN 81 MG PO (07:52)
[2024-08-15] MEDS: CRESTOR 40 MG PO (07:52)
[2024-08-15] MEDS: FARXIGA 5 MG PO (07:52)
[2024-08-15] MEDS: NEURONTIN 100 MG PO ×3 (07:52→21:45)
[2024-08-15] MEDS: ALDACTONE 25 MG PO (07:52)
[2024-08-15] MEDS: LOPRESSOR 100 MG PO ×2 (07:53→20:36)
[2024-08-15] MEDS: PROCARDIA XL (EXTENDED RELEASE) 60 MG PO ×2 (07:53→20:35)
[2024-08-15] MEDS: FEOSOL 325 MG PO (07:54)
[2024-08-15] MEDS: COZAAR 50 MG PO ×2 (07:54→20:40)
[2024-08-15] MEDS: NOVOLOG FLEXPEN-LOW RESISTANCE SC (07:54)
[2024-08-15] MEDS: COLACE 100 MG PO ×2 (07:54→20:36)
[2024-08-15] MEDS: SANTYL OINTMENT 1 APPLIC TOPICAL ×2 (08:07→20:35)
[2024-08-15 08:30] VITALS: BP_SYST 81
--- NOTE | 2024-08-15 08:57 | W.PN.ID1 ---
Date of Service
Date of Service: August 15, 2024
Today's Communication
Continue close monitoring off antibiotics. Trend white count and temperature curve.
Assessment / Plan
LUQ intra-abdominal abscess
- hx post-op LUQ infected hematoma s/p perc drain, Cx Klebsiella pneumoniae, ESBL-Ecoli s/p Ertapenem (05/31 to 07/29)
-LUQ drain removed 07/27/24
-LUQ fluid collection has increased in size with rim-enhancement, cannot safely aspirate per IR
Anterior midline lower abdominal incision drainage
-?fistula communication with underlying abscess
- cx 'few mixed skin negrito'. GNR's and GPC's seen on microscopy.
- No further drainage at present.
Anterior right-midline abdominal collection/abscess
- s/p drain placement (06/10/24) and recent upsizing of drain (07/27/24)
- Abscess cultures 07/17: staph epi, strep species x 2 s/p Ertapenem (05/31 to 07/29)
- minimal drainage at present
Hx Diverticulitis with diverticular perforation
- s/p diverting colostomy (05/22/2024).
- Intra-op splenic capsular tear with subsequent hematoma development
Recommendation:
- Patient clinically stable, with minimal leukocytosis. Remains afebrile.
- Continue off antibiotics, with close clinical observation.
- Sinus tract/drain study suspicious for communication with small bowel.
- Continue to follow clinically. Possible corrective surgery next week.
����������������������������������������������������������
Chief Complaint
-: Other (Abd abscesses)
Subjective / Review of Systems
Patient seen and examined. Reports feeling well today. No fevers or chills.
Review of Systems: No Fever and No Chills
Vital Signs / Physical Exam
Vital Signs
Vital Signs
Temp Pulse Resp BP Pulse Ox
97.6 F 86 18 139/65 98
11/21/24 07:05 08/15/24 07:52 08/15/24 07:05 08/15/24 07:52 08/15/24 07:05
Physical Exam
Constitutional: No Acute Distress, Comfortable, Chronically Ill and Non-toxic
Eyes: Sclera Anicteric
Cardiovascular: Regular Rate and S1/S2; Negative S3/S4
Pulmonary: Clear and Non Labored
Gastrointestinal: Soft, Non Tender, Non Distended and Other (Colostomy with brown stool. Midline incision wound without drainage. Right midline JODIE drain with scant seropurulent fluid.)
Extremities: Edema; Negative Cyanosis or Erythema
Neurological: AO x 3
Psychological: Calm
Objective Data
Lab Data
Lab Results
08/15/24 06:02
08/15/24 06:02
Estimated Creat Clear 93 ml/min 08/15/24 06:02
Total Bilirubin 0.3 mg/dl (0.2-1.3) 08/10/24 04:08
AST 19 U/L (14-36) 08/10/24 04:08
ALT 15 U/L (0-35) 08/10/24 04:08
Alkaline Phosphatase 76 U/L (38-126) 08/10/24 04:08
Most recent labs reviewed.
Micro Results:
08/10/24 04:08 Wound Culture - Final
Abdomen Gram Stain - Final
Imaging:
08/10/24 CT a/p: Interval removal of the left upper quadrant percutaneous drain with slightly increased size of the residual rim-enhancing collection just superior to the spleen which measures 6.3 x 4.1 cm. There is stable appearance of the right
lower quadrant percutaneous drain with overall similar size of the gas and fluid containing collection within the lower midline abdomen.
Care Review
Plan reviewed with: Physician (Colorectal Surgery)
[2024-08-15 11:33] LABS: Glucose - Point of Care 198 mg/dl (70-99)
--- NOTE | 2024-08-15 12:39 | W.PN.HOSP.TC ---
Today's Communication/Plan
-
Assessment / Plan
Assessment / Plan
Physical Exam
NAD, resting comfortably in bed
Scleral anicteric
Moist mucous membranes
No JVD
CTA bilateral
Normal S1-S2 no murmurs
Soft nontender nondistended bowel sounds active
JODIE drain with little output yellow/white color
No peripheral pitting edema
Moves extremities spontaneously
AAOx3
Assessment and Plan
Intraabdominal abscess - multiple
-After [facility] with diverting colostomy
-Colorectal surgery reviewed IR drain study with Ms. kaur. Plan to repeat on or Monday.
-Per colorectal surgery will likely go back to the OR for exploratory laparotomy for possible fistula and to assess if this perisplenic fluid collection can be drained and even reverse the colostomy. She is scheduled for potential lower early next
week however could be pushed to after the holidays.
Colorectal surgery would also like to plan for a C-scope on Monday and begin bowel prep on Monday
-Incision culture no growth
Perforated sigmoid diverticulitis s/p Caridad/colostomy formation/iatrogenic splenic capsular tear
-Continue colostomy care
-Continue follow-up with colorectal surgery
Left upper quadrant infected perisplenic hematoma
-Drain removed 07/30/2024
Hypertension
-Continue antihypertensive
DM type II without hyperglycemia
-A1c 6 point
-Continue oral hypoglycemics
Hyperlipidemia
-Continue Lipitor
History of aortic coarctation
-S/p stent 20 years ago
Deconditioning
-Chronically ill complicated recent hospitalizations
-Uses walker at home
-PT/OT as tolerated
Endometrial cancer
-S/p
History of breast cancer
-S/p mastectomy and chemotherapy
Anticipated Discharge: > 48 hours
Subjective/Interval History
-
Date of Service: August 15, 2024
Seen and examined. No new complaints. No acute overnight events.
Son at bedside and updated
Objective Data
-
Labs:
Laboratory Results
08/15/24
06:02
WBC 11.2 H
Hgb 9.7 L
Hct 30.8 L
Plt Count 304
Sodium 141
Potassium 4.2
Chloride 100
Carbon Dioxide 26
BUN 23 H
Creatinine 0.7
Glucose 133 H
Calcium 9.3
Vital Signs:
Vital Signs
Temp Pulse Resp BP Pulse Ox
97.6 F 86 16 139/65 100
08/15/24 07:05 08/15/24 08:36 08/15/24 08:36 08/15/24 07:52 08/15/24 10:35
I&O
08/14/24 08/15/24 08/16/24
06:59 06:59 06:59
Intake Total 1700 / 1700 500 / 500
Output Total 690 / 690
Balance 1010 / 1010 480 / 480
[2024-08-15] MEDS: NOVOLOG FLEXPEN-LOW RESISTANCE 1 UNITS SC ×2 (12:56→16:52)
--- NOTE | 2024-08-15 14:00 | CM ---
Patient seen at bedside.
IR today for drain study
She states poss surgery next wk
current with [facility] - declined SNF in past
PLAN: CM to follow patient progression for needs
[2024-08-15 15:10] VITALS: BP 147/62
[2024-08-15 16:53] LABS: Glucose - Point of Care 150 mg/dl (70-99)
--- NOTE | 2024-08-15 18:03 | W.PN.CRS1 ---
Today's Communication / Plan
-
Continue current measures.
Assessment/Plan
-
Patient with history of Caridad's resection complicated by abdominal abscess(s).
1. vitals fine and WBC 11.2. Off antibiotics.
2. 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 Long discussion had with patient and her son at the bedside. I touched on many of the details again that were mentioned in yesterday's note including potential plans for
colonoscopy Monday and surgery Monday. She appears to be leaning towards surgery. We discussed the fistula and the likely need for a partial small bowel resection. I also touched on the option of considering colostomy takedown during the same
operation. I touched on the pros and cons of this option. The pros would be it would get rid of the colostomy and potentially eliminate the need for another operation on her abdomen. The downsides are that she is not very mobile right now and she
would have to find the bathroom to have BMs if her colostomy is reversed. Also with the sacral decubitus, bowel function through the rectum may make hygiene of this area challenging and has the potential to impede healing. Plan to discuss this
further with the patient over the next few days. Again the plan tentatively at this point is bowel prep Monday, colonoscopy Monday, and surgery Monday.
Subjective Data
Subjective Data
Date of Service: August 15, 2024
No new complaints. Appears comfortable. Son at bedside.
Objective Data
-
Vital Signs
Temp Pulse Resp BP Pulse Ox
97.9 F 76 16 147/62 98
08/15/24 15:10 08/15/24 15:10 08/15/24 15:10 08/15/24 15:10 08/15/24 15:10
Intake & Output
08/14/24 08/15/24 08/16/24
06:59 06:59 06:59
Intake Total 1700 / 1700 500 / 500 980 / 980
Output Total 690 / 690 125 / 125
Balance 1010 / 1010 480 / 480 855 / 855
Intake:
Oral fluids 1640 / 1640 480 / 480 960 / 960
Amount instilled into Drain (
Total)
Right Lower Abdomen Jeremi-
Luevano Placed in IR
Output:
Drain Output (Total)
Right Lower Abdomen Jeremi-
Luevano Placed in IR
Urine, Voided 675 / 675 100 / 100
Other:
Number of approximated SMALL 1
amounts of urine
Number of approximated MODERATE 1 2 2
amounts of urine
Number of approximated LARGE 2 1 1
amounts of urine
How many times incontinent 3 1
MODERATE amount urine
How many times incontinent 1
SATURATED amount urine
Lab Results
08/15/24 06:02
08/15/24 06:02
Physical Exam
-
General: No Acute Distress
Chest: Clear
Cardiovascular: Regular Rate & Rhythm
Abdomen: Soft, Non Distended, Non Tender and Other (IR drain with car output)
Data Reviewed
-
Diagnostic Radiology: Image Reviewed, Report Reviewed and Discussed with Radiology
[2024-08-15] MEDS: LOVENOX 40 MG SC (18:11)
[2024-08-15 19:00] LABS: Glucose - Point of Care 153 mg/dl (70-99)
[2024-08-15 22:46] LABS: Glucose - Point of Care 174 mg/dl (70-99)
[2024-08-15 23:05] VITALS: BP 161/75
[2024-08-16] MEDS: TYLENOL 650 MG PO ×4 (03:42→20:48)
[2024-08-16 03:45] VITALS: BMI 29.3
[2024-08-16 05:38] LABS: Hematocrit 30.8 % (37.0-47.0); Hemoglobin 9.6 g/dL (12.0-16.0); Mean Corp Hgb Conc. 31.2 g/dL (33.0-37.0); Mean Corpuscular Hgb 27.3 pg (27.0-31.0); Mean Corpuscular Volume 87.5 fL (81.0-99.0); Platelet Count 282 10^3/uL (130-400); Red Blood Cell Count 3.52 10^6/uL (4.20-5.40); Red Cell Dist. Width 17.5 % (11.5-14.5); White Blood Cell Count 11.1 10^3/uL (4.8-10.8)
[2024-08-16 06:02] LABS: Blood Urea Nitrogen 23 mg/dl (7-17); Calcium 9.3 mg/dl (8.4-10.2); Carbon Dioxide 27 mmol/L (22-30); Chloride 99 mmol/L (98-107); Estimated Creatinine Clearance 92 ml/min; Glucose 119 mg/dl (70-99); Potassium 4.4 mmol/L (3.5-5.1); Sodium 139 mmol/L (135-145); eGFR > 60.00
[2024-08-16 07:00] VITALS: BP 159/75
[2024-08-16] MEDS: CRESTOR 40 MG PO (08:14)
[2024-08-16] MEDS: PROCARDIA XL (EXTENDED RELEASE) 60 MG PO ×2 (08:14→20:17)
[2024-08-16] MEDS: ALDACTONE 25 MG PO (08:15)
[2024-08-16] MEDS: FEOSOL 325 MG PO (08:15)
[2024-08-16] MEDS: COLACE 100 MG PO ×2 (08:15→20:17)
[2024-08-16] MEDS: LOW STRENGTH ASPIRIN 81 MG PO (08:15)
[2024-08-16] MEDS: FARXIGA 5 MG PO (08:15)
[2024-08-16] MEDS: LOPRESSOR 100 MG PO ×2 (08:15→20:17)
[2024-08-16] MEDS: SANTYL OINTMENT 1 APPLIC TOPICAL ×2 (08:16→20:17)
[2024-08-16] MEDS: COZAAR 50 MG PO ×2 (08:16→20:17)
[2024-08-16] MEDS: NOVOLOG FLEXPEN-LOW RESISTANCE SC ×2 (08:16→17:34)
[2024-08-16] MEDS: NEURONTIN 100 MG PO ×3 (08:16→22:22)
[2024-08-16 08:17] LABS: Glucose - Point of Care 129 mg/dl (70-99)
--- NOTE | 2024-08-16 10:37 | W.PN.CRS1 ---
Today's Communication / Plan
-
Bowel prep Monday
Colonoscopy Monday
Surgery Monday
Assessment/Plan
-
Patient with history of Caridad's resection complicated by abdominal abscess(s).
-Vitals normal, WBC 11.1 off antibiotics
-Plan: Bowel prep on Monday, colonoscopy on Monday, surgery on Monday
-We had a 30-minute discussion with the patient at bedside regarding her surgery. She has many questions about the colostomy reversal and if it is possible. We emphasized that we will try to reverse the colostomy but it may not be the safest thing
medically to do this. The patient and son understand and wish to proceed with the planning.
Subjective Data
Subjective Data
Date of Service: August 16, 2024
Patient states that she feels well. She is tolerating diet. She has no nausea or vomiting. She has many questions about surgery. Her son is present at bedside.
Objective Data
-
Vital Signs
Temp Pulse Resp BP Pulse Ox
98 F 94 16 159/74 99
08/16/24 07:00 08/16/24 08:16 08/16/24 07:00 08/16/24 08:16 08/16/24 07:00
Intake & Output
08/15/24 08/16/24 08/17/24
06:59 06:59 06:59
Intake Total 500 / 500 1600 / 1600
Output Total 135 / 135
Balance 480 / 480 1465 / 1465
Intake:
Oral fluids 480 / 480 1560 / 1560
Amount instilled into Drain ( 40 / 40
Total)
Right Lower Abdomen Jeremi- 40 / 40
Luevano Placed in IR
Output:
Drain Output (Total) 35 / 35
Right Lower Abdomen Jeremi- 35 / 35
Luevano Placed in IR
Urine, Voided 100 / 100
Other:
Number of approximated SMALL 2
amounts of urine
Number of approximated MODERATE 2 1
amounts of urine
Number of approximated LARGE 1 1
amounts of urine
How many times incontinent 1
SMALL amount urine
How many times incontinent 1
MODERATE amount urine
How many times incontinent 1
SATURATED amount urine
Lab Results
08/16/24 05:17
08/16/24 05:17
Physical Exam
-
General: No Acute Distress and AOx3
Abdomen: Soft, Non Distended and Tender (incision c/d/i, stoma warm and pink with output, JODIE drain on the right with purulent output)
Skin: Warm and Dry
--- NOTE | 2024-08-16 11:11 | PTOTSP ---
Patient supine in bed, educated extensively on importance of maintaining functional endurance/ transfer ability as she will be getting more surgery and her goal is to go home.
Patient instantly aggressive- began pointing/shoving finger in therapists face.
This therapist calmly lowered patients finger and educated her on appropriate behavior while in the hospital and being shouted at is not appropriate.
Patient began shouting, 'where did you come from!?' Educated patient and son calmly that I have worked with patient many times and would be happy to continue to work with her.
Patient states,'I can do all of this myself, I don't need anything from therapy.'
Discussed discharging patient from therapy. Patient and son state, 'yes, we want to be discharged from therapy.'
Will discharge at this time as per patient and son request.
--- NOTE | 2024-08-16 12:06 | CM ---
Patient seen at bedside.
Bowel prep monday, Colonoscopy Mon
States surgery on Monday
Discussed post-op PT/OT
current with [facility] - refused SNF in past
PLAN: Discharge when medically stable, home [facility]
--- NOTE | 2024-08-16 12:44 | W.PN.HOSP.TC ---
Today's Communication/Plan
-
Assessment / Plan
Assessment / Plan
Physical Exam
NAD, resting comfortably in bed
Scleral anicteric
Moist mucous membranes
No JVD
CTA bilateral
Normal S1-S2 no murmurs
Soft nontender nondistended bowel sounds active
JODIE drain with little output yellow/white color
No peripheral pitting edema
Moves extremities spontaneously
AAOx3
Assessment and Plan
Intraabdominal abscess - multiple
-After [facility] with diverting colostomy
-Colorectal surgery reviewed IR drain study with Ms. kaur. Plan to repeat on or Monday.
-Per colorectal surgery will likely go back to the OR for exploratory laparotomy for possible fistula and to assess if this perisplenic fluid collection can be drained and even reverse the colostomy. She is scheduled for potential lower early next
week however could be pushed to after the holidays.
Colorectal surgery would also like to plan for a C-scope on Monday and begin bowel prep on Monday
-Incision culture no growth
Perforated sigmoid diverticulitis s/p Caridad/colostomy formation/iatrogenic splenic capsular tear
-Continue colostomy care
-Continue follow-up with colorectal surgery
Left upper quadrant infected perisplenic hematoma
-Drain removed 07/30/2024
Hypertension
-Continue antihypertensive
DM type II without hyperglycemia
-A1c 6 point
-Continue oral hypoglycemics
Hyperlipidemia
-Continue Lipitor
History of aortic coarctation
-S/p stent 20 years ago
Deconditioning
-Chronically ill complicated recent hospitalizations
-Uses walker at home
-PT/OT as tolerated
Endometrial cancer
-S/p
History of breast cancer
-S/p mastectomy and chemotherapy
Anticipated Discharge: > 48 hours
Subjective/Interval History
-
Date of Service: August 16, 2024
seen and examined. no new comapltiants. no acute overnigth evetns
Objective Data
-
Labs:
Laboratory Results
08/16/24
05:17
WBC 11.1 H
Hgb 9.6 L
Hct 30.8 L
Plt Count 282
Sodium 139
Potassium 4.4
Chloride 99
Carbon Dioxide 27
BUN 23 H
Creatinine 0.7
Glucose 119 H
Calcium 9.3
Vital Signs:
Vital Signs
Temp Pulse Resp BP Pulse Ox
98 F 94 16 159/74 99
08/16/24 07:00 08/16/24 08:16 08/16/24 07:00 08/16/24 08:16 08/16/24 07:00
I&O
08/15/24 08/16/24 08/17/24
06:59 06:59 06:59
Intake Total 500 / 500 1600 / 1600
Output Total 20 135 / 135
Balance 480 / 480 1465 / 1465
[2024-08-16 12:45] LABS: Glucose - Point of Care 193 mg/dl (70-99)
--- NOTE | 2024-08-16 13:00 | PTCARENOTE ---
Patient rang to urinate. Attempted to have patient stand and pivot to use BSC - patient and son adamantly refused. Patient and son demanded that she use the bedpan to urinate. Provided education on the need to increased mobility. Provided bedpan for
patient at this time as she was unwilling to get OOB.
--- NOTE | 2024-08-16 13:18 | WOUNDNOTE ---
[facility] RN NOTE: Ostomy last changed on 08/14. Patient denies issues with leaking and appliance intact at time of assessment. All supplies at bedside. Nursing may due future ostomy changes every 3- 5 days and as needed. Please call [facility] RN for leaking or
any other ostomy concerns.
--- NOTE | 2024-08-16 13:34 | W.PN.ID1 ---
Date of Service
Date of Service: August 16, 2024
Today's Communication
Continue close observation off of antibiotics. Await potential surgery next week.
Assessment / Plan
LUQ intra-abdominal abscess
- hx post-op LUQ infected hematoma s/p perc drain, Cx Klebsiella pneumoniae, ESBL-Ecoli s/p Ertapenem (05/31 to 07/29)
-LUQ drain removed 07/27/24
-LUQ fluid collection has increased in size with rim-enhancement, cannot safely aspirate per IR
Anterior midline lower abdominal incision drainage
-?fistula communication with underlying abscess
- cx 'few mixed skin negrito'. GNR's and GPC's seen on microscopy.
- No further drainage at present.
Anterior right-midline abdominal collection/abscess
- s/p drain placement (06/10/24) and recent upsizing of drain (07/27/24)
- Abscess cultures 07/17: staph epi, strep species x 2 s/p Ertapenem (05/31 to 07/29)
- minimal drainage at present
Hx Diverticulitis with diverticular perforation
- s/p diverting colostomy (05/22/2024).
- Intra-op splenic capsular tear with subsequent hematoma development
Recommendation:
- Patient clinically stable, with minimal leukocytosis. Remains afebrile.
- Continue off antibiotics, with close clinical observation.
- Sinus tract/drain study suspicious for communication with small bowel.
- Continue to follow clinically. Possible corrective surgery next week.
-Maximize nutrition.
����������������������������������������������������������
Chief Complaint
-: Other (Abd abscesses)
Subjective / Review of Systems
Review of Systems: No Fever and No Chills
Vital Signs / Physical Exam
Vital Signs
Vital Signs
Temp Pulse Resp BP Pulse Ox
97.4 F 88 16 135/95 98
08/16/24 13:19 08/16/24 13:19 08/16/24 13:19 08/16/24 13:19 08/16/24 13:19
Physical Exam
Constitutional: No Acute Distress, Comfortable, Chronically Ill and Non-toxic
Eyes: Sclera Anicteric
Pulmonary: Clear and Non Labored
Gastrointestinal: Soft, Non Tender, Non Distended and Other (Colostomy with brown stool. Midline incision wound without drainage. Right midline JODIE drain with scant seropurulent fluid.)
Extremities: Edema; Negative Cyanosis or Erythema
Neurological: AO x 3
Psychological: Calm
Objective Data
Lab Data
Lab Results
08/16/24 05:17
08/16/24 05:17
Estimated Creat Clear 92 ml/min 08/16/24 05:17
Total Bilirubin 0.3 mg/dl (0.2-1.3) 08/10/24 04:08
AST 19 U/L (14-36) 08/10/24 04:08
ALT 15 U/L (0-35) 08/10/24 04:08
Alkaline Phosphatase 76 U/L (38-126) 08/10/24 04:08
Most recent labs reviewed.
Micro Results:
08/10/24 04:08 Wound Culture - Final
Abdomen Gram Stain - Final
Imaging:
08/10/24 CT a/p: Interval removal of the left upper quadrant percutaneous drain with slightly increased size of the residual rim-enhancing collection just superior to the spleen which measures 6.3 x 4.1 cm. There is stable appearance of the right
lower quadrant percutaneous drain with overall similar size of the gas and fluid containing collection within the lower midline abdomen.
[2024-08-16] MEDS: NOVOLOG FLEXPEN-LOW RESISTANCE 1 UNITS SC (13:52)
[2024-08-16 15:35] VITALS: BP 145/76
--- NOTE | 2024-08-16 16:10 | WOUNDNOTE ---
[facility] RN NOTE: Patient visited for concern for DTI around sacral wound. Wound assessed by this principal technical writer and RN, Lenore. Upon assessment the periwound skin is blanchable, so no concern for DTI at this time. Wound appears stable and current wound care
remains appropriate. This principal technical writer reminded patient to change positions frequently in bed to continue off-loading of sacrum. Ostomy appliance changed so barrier can fit closer to stoma. Pouch changed with barrier #[id number], a thin layer of stoma paste to
edges of barrier opening and pouch number #[id number]. A high output pouch left at bedside for bowel prep planned for 08/18. Patient, son and RN Teri made aware of high output pouch at bedside. Will continue to follow as needed.
--- NOTE | 2024-08-16 16:45 | PTCARENOTE ---
Patient called to use bathroom. PCT asked patient to use bedside commode, patient refused. Patient put on bedpan.
--- NOTE | 2024-08-16 16:51 | PTCARENOTE ---
Met with patient and son per their request over a few concerns. one of the concerns was feeling that when patient was not feeling able to transfer to the stretcher via using the walker or getting out of bed to use the BSC, they felt they were argued
with or forced to get up when she wanted a bed arteaga. Explained to patient and her son that as nurses we do need to educate and encourage patients to do things that will promote healing and prevent deconditioning and infection such as encouraging her
to get up to use the BSC rather than bedpan, reposition, and increase mobility. However, ultimately the decision is up to the patient and even if the patient is making a decision that we feel is not correct, we will follow what they want. I did
reiterate that the nursing staff will continue to offer and encourage the patient to get up to use the commode and not automatically offer a bedpan. They were in agreement that she will try to get up out of bed and that staff will be offering this,
but in the end they can refuse and use the bedpan if requested.
[2024-08-16 17:16] LABS: Glucose - Point of Care 144 mg/dl (70-99)
[2024-08-16] MEDS: LOVENOX 40 MG SC (18:17)
[2024-08-16 21:42] LABS: Glucose - Point of Care 179 mg/dl (70-99)
[2024-08-16] MEDS: ULTRAM 50 MG PO (22:22)
[2024-08-16 23:35] VITALS: BP 152/72
--- NOTE | 2024-08-17 05:12 | PTCARENOTE ---
Pt has been refusing bedside commode and will like to use bedpan. Pt feels more comfortable using bedpan as it reduced her pain. pt was made aware of risk not ambulating. Knee high SCD's was placed for preventative measures.
[2024-08-17] MEDS: TYLENOL 650 MG PO ×3 (05:19→17:39)
[2024-08-17 05:28] VITALS: BMI 29.1
[2024-08-17 06:50] LABS: Hematocrit 31.5 % (37.0-47.0); Hemoglobin 9.6 g/dL (12.0-16.0); Mean Corp Hgb Conc. 30.5 g/dL (33.0-37.0); Mean Corpuscular Hgb 26.7 pg (27.0-31.0); Mean Corpuscular Volume 87.7 fL (81.0-99.0); Mean Platelet Volume 10.1 fL (7.4-10.4); Platelet Count 275 10^3/uL (130-400); Red Blood Cell Count 3.59 10^6/uL (4.20-5.40); Red Cell Dist. Width 17.4 % (11.5-14.5); White Blood Cell Count 9.2 10^3/uL (4.8-10.8)
[2024-08-17 07:00] VITALS: BP 103/69
[2024-08-17 07:17] LABS: Blood Urea Nitrogen 25 mg/dl (7-17); Calcium 9.4 mg/dl (8.4-10.2); Carbon Dioxide 26 mmol/L (22-30); Chloride 100 mmol/L (98-107); Estimated Creatinine Clearance 92 ml/min; Glucose 133 mg/dl (70-99); Potassium 4.5 mmol/L (3.5-5.1); Sodium 139 mmol/L (135-145); eGFR > 60.00
[2024-08-17 09:02] LABS: Glucose - Point of Care 129 mg/dl (70-99)
[2024-08-17] MEDS: FARXIGA 5 MG PO (09:16)
[2024-08-17] MEDS: NOVOLOG FLEXPEN-LOW RESISTANCE SC (09:16)
[2024-08-17] MEDS: CRESTOR 40 MG PO (09:17)
[2024-08-17] MEDS: LOPRESSOR 100 MG PO ×2 (09:17→20:11)
[2024-08-17] MEDS: FEOSOL 325 MG PO (09:17)
[2024-08-17] MEDS: COZAAR 50 MG PO ×2 (09:18→20:11)
[2024-08-17] MEDS: LOW STRENGTH ASPIRIN 81 MG PO (09:18)
[2024-08-17] MEDS: NEURONTIN 100 MG PO ×3 (09:18→21:32)
[2024-08-17] MEDS: COLACE 100 MG PO ×2 (09:18→21:32)
[2024-08-17] MEDS: ALDACTONE 25 MG PO (09:18)
[2024-08-17] MEDS: PROCARDIA XL (EXTENDED RELEASE) PO (09:19)
[2024-08-17] MEDS: SANTYL OINTMENT 1 APPLIC TOPICAL ×2 (09:20→20:11)
[2024-08-17 12:07] LABS: Glucose - Point of Care 160 mg/dl (70-99)
--- NOTE | 2024-08-17 13:03 | W.PN.HOSP.TC ---
Today's Communication/Plan
-
Assessment / Plan
Assessment / Plan
Physical Exam
NAD, resting comfortably in bed
Scleral anicteric
Moist mucous membranes
No JVD
CTA bilateral
Normal S1-S2 no murmurs
Soft nontender nondistended bowel sounds active
JODIE drain with little output yellow/white color
No peripheral pitting edema
Moves extremities spontaneously
AAOx3
Assessment and Plan
Intraabdominal abscess - multiple
-After Hartmans with diverting colostomy
-Colorectal surgery reviewed IR drain study with Ms. kaur. Plan to repeat on or Monday.
-Per colorectal surgery will likely go back to the OR for exploratory laparotomy for possible fistula and to assess if this perisplenic fluid collection can be drained and even reverse the colostomy. She is scheduled for potential lower early next
week however could be pushed to after the holidays.
Colorectal surgery would also like to plan for a C-scope on Monday and begin bowel prep on Monday
-Incision culture no growth
Perforated sigmoid diverticulitis s/p Caridad/colostomy formation/iatrogenic splenic capsular tear
-Continue colostomy care
-Continue follow-up with colorectal surgery
Left upper quadrant infected perisplenic hematoma
-Drain removed 07/30/2024
Hypertension
-Continue antihypertensive
DM type II without hyperglycemia
-A1c 6 point
-Continue oral hypoglycemics
Hyperlipidemia
-Continue Lipitor
History of aortic coarctation
-S/p stent 20 years ago
Deconditioning
-Chronically ill complicated recent hospitalizations
-Uses walker at home
-PT/OT as tolerated
Endometrial cancer
-S/p
History of breast cancer
-S/p mastectomy and chemotherapy
Anticipated Discharge: > 48 hours
Subjective/Interval History
-
Date of Service: August 17, 2024
seen and examined. no new complaints. no acute overnight events
Objective Data
-
Labs:
Laboratory Results
08/17/24
06:30
WBC 9.2
Hgb 9.6 L
Hct 31.5 L
Plt Count 275
Sodium 139
Potassium 4.5
Chloride 100
Carbon Dioxide 26
BUN 25 H
Creatinine 0.7
Glucose 133 H
Calcium 9.4
Vital Signs:
Vital Signs
Temp Pulse Resp BP Pulse Ox
97.9 F 84 16 103/69 98
08/17/24 07:00 08/17/24 09:19 08/17/24 07:00 08/17/24 09:19 08/17/24 10:00
I&O
08/16/24 08/17/24 08/18/24
06:59 06:59 06:59
Intake Total 1600 / 1600 1420 / 1420
Output Total 135 / 135 10 / 10
Balance 1465 / 1465 1410 / 1410
[2024-08-17] MEDS: NOVOLOG FLEXPEN-LOW RESISTANCE 1 UNITS SC ×2 (13:21→17:14)
[2024-08-17 15:00] VITALS: BP 174/82
[2024-08-17 16:40] LABS: Glucose - Point of Care 150 mg/dl (70-99)
[2024-08-17] MEDS: LOVENOX 40 MG SC (17:15)
[2024-08-17 18:42] VITALS: BP 160/82
[2024-08-17] MEDS: PROCARDIA XL (EXTENDED RELEASE) 60 MG PO (20:11)
[2024-08-17 21:31] LABS: Glucose - Point of Care 177 mg/dl (70-99)
[2024-08-17 23:06] VITALS: BP 152/79
[2024-08-18] MEDS: ULTRAM 50 MG PO ×2 (02:00→23:06)
[2024-08-18] MEDS: TYLENOL 650 MG PO ×3 (04:58→20:25)
[2024-08-18 05:05] LABS: Hematocrit 30.2 % (37.0-47.0); Hemoglobin 9.4 g/dL (12.0-16.0); Mean Corp Hgb Conc. 31.1 g/dL (33.0-37.0); Mean Corpuscular Hgb 27.2 pg (27.0-31.0); Mean Corpuscular Volume 87.3 fL (81.0-99.0); Mean Platelet Volume 10.1 fL (7.4-10.4); Platelet Count 260 10^3/uL (130-400); Red Blood Cell Count 3.46 10^6/uL (4.20-5.40); Red Cell Dist. Width 17.3 % (11.5-14.5); White Blood Cell Count 8.4 10^3/uL (4.8-10.8)
[2024-08-18 05:28] LABS: Blood Urea Nitrogen 26 mg/dl (7-17); Calcium 9.3 mg/dl (8.4-10.2); Carbon Dioxide 28 mmol/L (22-30); Chloride 99 mmol/L (98-107); Estimated Creatinine Clearance 92 ml/min; Glucose 180 mg/dl (70-99); Potassium 4.3 mmol/L (3.5-5.1); Sodium 138 mmol/L (135-145); eGFR > 60.00
[2024-08-18 06:00] VITALS: BMI 29.4
[2024-08-18 07:10] VITALS: BP 123/70
[2024-08-18 07:15] LABS: Glucose - Point of Care 208 mg/dl (70-99)
[2024-08-18] MEDS: D5/0.45%NACL 1000 IV ×2 (09:13→23:55)
[2024-08-18] MEDS: NOVOLOG FLEXPEN-LOW RESISTANCE 2 UNITS SC (09:17)
[2024-08-18] MEDS: FARXIGA PO (09:43)
[2024-08-18] MEDS: COZAAR PO (09:43)
[2024-08-18] MEDS: ALDACTONE PO (09:43)
[2024-08-18] MEDS: COLACE PO (09:43)
[2024-08-18] MEDS: FEOSOL PO (09:43)
[2024-08-18] MEDS: CRESTOR PO (09:43)
[2024-08-18] MEDS: LOW STRENGTH ASPIRIN PO (09:44)
[2024-08-18] MEDS: PROCARDIA XL (EXTENDED RELEASE) PO (09:44)
[2024-08-18] MEDS: NIZORAL 2% CREAM TOPICAL (09:44)
[2024-08-18] MEDS: LOPRESSOR PO (09:44)
[2024-08-18] MEDS: NEURONTIN PO (09:44)
[2024-08-18] MEDS: SANTYL OINTMENT 1 APPLIC TOPICAL ×2 (09:47→20:21)
--- NOTE | 2024-08-18 11:05 | W.PN.HOSP.TC ---
Today's Communication/Plan
-
npo
bowel prep
ivf w/ dextrose
c-scope tomrorow
OR with surgery on monday
Assessment / Plan
Assessment / Plan
Physical Exam
NAD, resting comfortably in bed
Scleral anicteric
Moist mucous membranes
No JVD
CTA bilateral
Normal S1-S2 no murmurs
Soft nontender nondistended bowel sounds active
JODIE drain with little output yellow/white color
No peripheral pitting edema
Moves extremities spontaneously
AAOx3
Assessment and Plan
Intraabdominal abscess - multiple
-After Hartmans with diverting colostomy
-Colorectal surgery reviewed IR drain study with Ms. kaur. Plan to repeat on or Monday.
-Per colorectal surgery will likely go back to the OR for exploratory laparotomy for possible fistula and to assess if this perisplenic fluid collection can be drained and even reverse the colostomy. She is scheduled for potential lower early next
week however could be pushed to after the holidays.
Colorectal surgery would also like to plan for a C-scope on Monday and begin bowel prep on Monday
-Incision culture no growth
Perforated sigmoid diverticulitis s/p Caridad/colostomy formation/iatrogenic splenic capsular tear
-Continue colostomy care
-Continue follow-up with colorectal surgery
Left upper quadrant infected perisplenic hematoma
-Drain removed 07/30/2024
Hypertension
-Continue antihypertensive
DM type II without hyperglycemia
-A1c 6 point
-Continue oral hypoglycemics
Hyperlipidemia
-Continue Lipitor
History of aortic coarctation
-S/p stent 20 years ago
Deconditioning
-Chronically ill complicated recent hospitalizations
-Uses walker at home
-PT/OT as tolerated
Endometrial cancer
-S/p
History of breast cancer
-S/p mastectomy and chemotherapy
Anticipated Discharge: > 48 hours
Subjective/Interval History
-
Date of Service: August 18, 2024
seen and examined. in good spirits as daughter is coming into town for thanksgiving.
no new complaints. no acute overnight events
Objective Data
-
Labs:
Laboratory Results
08/18/24
04:51
WBC 8.4
Hgb 9.4 L
Hct 30.2 L
Plt Count 260
Sodium 138
Potassium 4.3
Chloride 99
Carbon Dioxide 28
BUN 26 H
Creatinine 0.7
Glucose 180 H
Calcium 9.3
Vital Signs:
Vital Signs
Temp Pulse Resp BP Pulse Ox
99.1 F 84 18 123/70 94
08/18/24 07:10 08/18/24 07:10 08/18/24 07:10 08/18/24 07:10 08/18/24 07:10
I&O
08/17/24 08/18/24 08/19/24
06:59 06:59 06:59
Intake Total 1420 / 1420 520 / 520
Output Total
Balance 1410 / 1410 505 / 505
--- NOTE | 2024-08-18 11:33 | W.PN.CRS1 ---
Today's Communication / Plan
-
bowel prep today
clears
NPO at midnight
colonoscopy tomorrow
Assessment/Plan
-
Patient with history of Caridad's resection complicated by abdominal abscess(s).
-Vitals normal, WBC 8.4 off antibiotics
-Plan: Bowel prep on Monday, colonoscopy on Monday, surgery on Monday
-Start bowel prep today at noon
-Clears today, NPO at midnight
-Type and screen ordered for OR
Subjective Data
Subjective Data
Date of Service: August 18, 2024
Patient states she is ready for the colonoscopy tomorrow. She does not have any questions.
Objective Data
-
Vital Signs
Temp Pulse Resp BP Pulse Ox
99.1 F 84 18 123/70 94
08/18/24 07:10 08/18/24 07:10 08/18/24 07:10 08/18/24 07:10 08/18/24 07:10
Intake & Output
08/17/24 08/18/24 08/19/24
06:59 06:59 06:59
Intake Total 1420 / 1420 520 / 520
Output Total
Balance 1410 / 1410 505 / 505
Intake:
Oral fluids 1380 / 1380 480 / 480
Amount instilled into Drain ( 40 / 40 40 / 40
Total)
Right Lower Abdomen Jeremi- 40 / 40 40 / 40
Luevano Placed in IR
Output:
Drain Output (Total)
Right Lower Abdomen Jeremi-
Luevano Placed in IR
Other:
Number of approximated SMALL 1
amounts of urine
Number of approximated MODERATE 4
amounts of urine
Number of approximated LARGE 1
amounts of urine
How many times incontinent 1
MODERATE amount urine
How many times incontinent 1
SATURATED amount urine
Lab Results
08/18/24 04:51
08/18/24 04:51
Physical Exam
-
General: No Acute Distress and AOx3
Abdomen: Soft, Non Distended, Non Tender and Other (Sam drain with no drainage in bulb)
Skin: Warm and Dry
[2024-08-18 12:05] VITALS: BP 148/89
[2024-08-18] MEDS: PROCARDIA XL (EXTENDED RELEASE) 60 MG PO ×2 (12:07→20:22)
[2024-08-18] MEDS: FARXIGA 5 MG PO (12:07)
[2024-08-18] MEDS: LOPRESSOR 100 MG PO ×2 (12:07→20:22)
[2024-08-18] MEDS: LOW STRENGTH ASPIRIN 81 MG PO (12:07)
[2024-08-18] MEDS: CRESTOR 40 MG PO (12:07)
[2024-08-18] MEDS: COZAAR 50 MG PO ×2 (12:08→20:22)
[2024-08-18] MEDS: COLACE 100 MG PO ×2 (12:08→20:22)
[2024-08-18] MEDS: FEOSOL 325 MG PO (12:08)
[2024-08-18] MEDS: NEURONTIN 100 MG PO ×3 (12:08→23:06)
[2024-08-18] MEDS: ALDACTONE 25 MG PO (12:08)
[2024-08-18 12:09] LABS: Glucose - Point of Care 160 mg/dl (70-99)
[2024-08-18] MEDS: NOVOLOG FLEXPEN-LOW RESISTANCE 1 UNITS SC ×2 (12:12→17:00)
[2024-08-18] MEDS: NULYTELY SOLUTION 4 LITERS PO (13:00)
--- NOTE | 2024-08-18 14:00 | PTCARENOTE ---
Patient started her bowel prep as ordered. Tolerating well. no c/o at this time. plan of care ongoing.
[2024-08-18 15:10] VITALS: BP 122/64
[2024-08-18 16:57] LABS: Glucose - Point of Care 161 mg/dl (70-99)
[2024-08-18] MEDS: LOVENOX 40 MG SC (17:01)
[2024-08-18 21:57] LABS: Glucose - Point of Care 155 mg/dl (70-99)
[2024-08-18 23:10] VITALS: BP 142/64
[2024-08-19] VITALS (8 sets, daily range): BP systolic 17–149; BP diastolic 51–90; BMI 29.0
--- NOTE | 2024-08-19 00:29 | PTCARENOTE ---
Pt was only able to tolerated 2L of the bowel prep. Pt had a large leak from the colostomy bag. Colostomy bag changed. Q2 turn. Refuses to use bedside commode.
[2024-08-19 05:02] LABS: Glucose - Point of Care 140 mg/dl (70-99)
[2024-08-19] MEDS: NOVOLOG FLEXPEN-LOW RESISTANCE SC ×4 (05:02→23:30)
[2024-08-19 06:32] LABS: Hematocrit 31.7 % (37.0-47.0); Hemoglobin 9.7 g/dL (12.0-16.0); Mean Corp Hgb Conc. 30.6 g/dL (33.0-37.0); Mean Corpuscular Volume 88.3 fL (81.0-99.0); Mean Platelet Volume 10.5 fL (7.4-10.4); Platelet Count 238 10^3/uL (130-400); Red Blood Cell Count 3.59 10^6/uL (4.20-5.40); Red Cell Dist. Width 17.3 % (11.5-14.5); White Blood Cell Count 7.6 10^3/uL (4.8-10.8)
[2024-08-19 07:02] LABS: Blood Urea Nitrogen 16 mg/dl (7-17); Calcium 9.1 mg/dl (8.4-10.2); Carbon Dioxide 27 mmol/L (22-30); Chloride 99 mmol/L (98-107); Estimated Creatinine Clearance 92 ml/min; Glucose 133 mg/dl (70-99); Potassium 4.2 mmol/L (3.5-5.1); Sodium 137 mmol/L (135-145); eGFR > 60.00
[2024-08-19] MEDS: CITROMA 300 ML PO ×2 (08:50→17:35)
--- NOTE | 2024-08-19 12:46 | W.PN.HOSP.TC ---
Today's Communication/Plan
-
Colonoscopy today
Assessment / Plan
Assessment / Plan
Intraabdominal abscess - multiple. Antibiotics on hold as per ID.
-After Hartmans with diverting colostomy
-Sinus tract injection study done by IR on 08/15, moderate residual abscess cavity noted. Fistulous communication between the abscess and the adjacent small bowel. Percutaneous drainage catheter to remain in place.
-Per colorectal surgery will likely go back to the OR 08/20 for exploratory laparotomy for possible fistula and to assess if this perisplenic fluid collection can be drained and even reverse the colostomy.
Colorectal surgery would also like to plan for a C-scope today.
-Surgical Incision culture mixed skin negrito
Perforated sigmoid diverticulitis s/p Caridad/colostomy formation/iatrogenic splenic capsular tear
-Continue colostomy care
-Continue follow-up with colorectal surgery
Left upper quadrant infected perisplenic hematoma
-Drain removed 07/30/2024
Essential Hypertension
-Continue antihypertensive
DM2 without hyperglycemia - HgbA1c 6.6%. Stop Farxiga, continue SSI.
Hyperlipidemia
-Continue Lipitor
Chronic normocytic anemia -hemoglobin stable.
History of aortic coarctation
-S/p stent 20 years ago
Deconditioning
-Chronically ill complicated recent hospitalizations
-Uses walker at home
-PT/OT as tolerated
Endometrial cancer
-S/p
History of breast cancer
-S/p mastectomy and chemotherapy
Obesity due to excess calories
Full code
Updated son at the bedside.
Anticipated Discharge: > 48 hours
Subjective/Interval History
-
Date of Service: August 19, 2024
Patient seen/examined, complaining of discomfort from abdominal drain.
Objective Data
-
Labs:
Laboratory Results
08/19/24
05:26
WBC 7.6
Hgb 9.7 L
Hct 31.7 L
Plt Count 238
Sodium 137
Potassium 4.2
Chloride 99
Carbon Dioxide 27
BUN 16
Creatinine 0.7
Glucose 133 H
Calcium 9.1
Vital Signs:
Vital Signs
Temp Pulse Resp BP Pulse Ox
99.9 F 100 17 130/74 99
08/19/24 07:10 08/19/24 07:10 08/19/24 07:10 08/19/24 07:10 08/19/24 11:00
I&O
08/18/24 08/19/24 08/20/24
06:59 06:59 06:59
Intake Total 520 / 520 2160 / 2160
Output Total 15 / 15 306 / 306
Balance 505 / 505 1854 / 1854
Review of Systems
-
History Source: Patient
All other systems: Reviewed and negative
--- NOTE | 2024-08-19 12:53 | PTCARENOTE ---
Q6 accucheck not completed due to pt being off floor for colonoscopy.
--- NOTE | 2024-08-19 14:01 | W.PN.UPDATE ---
Update Note
Progress Note Update
Colonoscopy complete. Rectal stump was 15 cm long. Colon had diverticulosis. Prep suboptimal (somewhere between fair and poor) but I was able to get to cecum and identify it. Clears today. Another round of Magnesium Citrate warranted. NPO
after MN.
[2024-08-19 14:22] LABS: Glucose - Point of Care 135 mg/dl (70-99)
[2024-08-19] MEDS: COZAAR 50 MG PO ×2 (15:24→20:33)
[2024-08-19] MEDS: NEURONTIN 100 MG PO ×2 (15:25→22:32)
[2024-08-19] MEDS: FEOSOL 325 MG PO (15:25)
[2024-08-19] MEDS: CRESTOR 40 MG PO (15:25)
[2024-08-19] MEDS: NIZORAL 2% CREAM TOPICAL (15:26)
[2024-08-19] MEDS: ALDACTONE 25 MG PO (15:26)
[2024-08-19] MEDS: COLACE 100 MG PO ×2 (15:26→20:32)
[2024-08-19] MEDS: LOPRESSOR 100 MG PO ×2 (15:26→20:33)
[2024-08-19] MEDS: PROCARDIA XL (EXTENDED RELEASE) 60 MG PO ×2 (15:26→20:32)
[2024-08-19] MEDS: LOW STRENGTH ASPIRIN 81 MG PO (15:27)
[2024-08-19] MEDS: SANTYL OINTMENT 1 APPLIC TOPICAL ×2 (15:27→20:32)
[2024-08-19] MEDS: NEURONTIN PO (15:27)
[2024-08-19] MEDS: FARXIGA PO (15:28)
[2024-08-19] MEDS: ULTRAM 50 MG PO ×2 (15:29→22:32)
--- NOTE | 2024-08-19 15:47 | PTCARENOTE ---
Received pt back from colonoscopy, wound care completed, PRN pain medication administered along with 0800 medications late due to pts refusal to take them prior to colonoscopy. Accucheck 135, no coverage required.
--- NOTE | 2024-08-19 16:03 | CM ---
Patient sleeping - son Anshul in room
Returned from colonoscopy
Son states that she will have surgery tomorrow
Declined SNF in past
PLAN: CM to cont to follow progress, current with [facility]
--- NOTE | 2024-08-19 16:11 | W.PN.ID1 ---
Date of Service
Date of Service: August 19, 2024
Today's Communication
Continue antibiotics for today. Await potential surgery.
Assessment / Plan
LUQ intra-abdominal abscess
- hx post-op LUQ infected hematoma s/p perc drain, Cx Klebsiella pneumoniae, ESBL-Ecoli s/p Ertapenem (05/31 to 07/29)
-LUQ drain removed 07/27/24
-LUQ fluid collection has increased in size with rim-enhancement, cannot safely aspirate per IR
Anterior midline lower abdominal incision drainage
-?fistula communication with underlying abscess
- cx 'few mixed skin negrito'. GNR's and GPC's seen on microscopy.
- No further drainage at present.
Anterior right-midline abdominal collection/abscess
- s/p drain placement (06/10/24) and recent upsizing of drain (07/27/24)
- Abscess cultures 07/17: staph epi, strep species x 2 s/p Ertapenem (05/31 to 07/29)
- minimal drainage at present
Hx Diverticulitis with diverticular perforation
- s/p diverting colostomy (05/22/2024).
- Intra-op splenic capsular tear with subsequent hematoma development
Recommendation:
- Patient clinically stable, with minimal leukocytosis. Remains afebrile.
- Continue off antibiotics, with close clinical observation.
- Sinus tract/drain study suspicious for communication with small bowel.
- Continue to follow clinically. Tentative surgery tomorrow. If possible, will check intraoperative cultures to delineate whether further antibiotics are necessary.
-Maximize nutrition.
����������������������������������������������������������
Chief Complaint
-: Other (Abd abscesses)
Subjective / Review of Systems
Review of Systems: No Fever and No Chills
Vital Signs / Physical Exam
Vital Signs
Vital Signs
Temp Pulse Resp BP Pulse Ox
98.6 F 101 18 149/90 100
08/19/24 14:30 08/19/24 15:24 08/19/24 14:30 08/19/24 15:24 08/19/24 14:30
Physical Exam
Constitutional: No Acute Distress and Non-toxic
Pulmonary: Non Labored
Gastrointestinal: Non Distended
Neurological: Awake and Alert
Psychological: Calm
Objective Data
Lab Data
Lab Results
08/19/24 05:26
08/19/24 05:26
Estimated Creat Clear 92 ml/min 08/19/24 05:26
Total Bilirubin 0.3 mg/dl (0.2-1.3) 08/10/24 04:08
AST 19 U/L (14-36) 08/10/24 04:08
ALT 15 U/L (0-35) 08/10/24 04:08
Alkaline Phosphatase 76 U/L (38-126) 08/10/24 04:08
Most recent labs reviewed.
Micro Results:
08/10/24 04:08 Wound Culture - Final
Abdomen Gram Stain - Final
Imaging:
08/10/24 CT a/p: Interval removal of the left upper quadrant percutaneous drain with slightly increased size of the residual rim-enhancing collection just superior to the spleen which measures 6.3 x 4.1 cm. There is stable appearance of the right
lower quadrant percutaneous drain with overall similar size of the gas and fluid containing collection within the lower midline abdomen.
[2024-08-19 17:21] LABS: Glucose - Point of Care 140 mg/dl (70-99)
[2024-08-19] MEDS: TYLENOL 650 MG PO (20:32)
[2024-08-19] MEDS: NSS 1000 IV (23:24)
[2024-08-19 23:28] LABS: Glucose - Point of Care 143 mg/dl (70-99)
[2024-08-20] VITALS (15 sets, daily range): BP systolic 92–125; BP diastolic 52–63; BMI 28.8
[2024-08-20 05:51] LABS: Glucose - Point of Care 119 mg/dl (70-99)
[2024-08-20] MEDS: TYLENOL 650 MG PO (06:03)
[2024-08-20] MEDS: NOVOLOG FLEXPEN-LOW RESISTANCE SC ×3 (06:05→18:14)
[2024-08-20] MEDS: CRESTOR 40 MG PO (07:44)
[2024-08-20] MEDS: PROCARDIA XL (EXTENDED RELEASE) 60 MG PO (07:44)
[2024-08-20] MEDS: FEOSOL 325 MG PO (08:02)
[2024-08-20] MEDS: COLACE 100 MG PO (08:02)
[2024-08-20] MEDS: ALDACTONE 25 MG PO (08:02)
[2024-08-20] MEDS: LOPRESSOR 100 MG PO (08:02)
[2024-08-20] MEDS: COZAAR 50 MG PO (08:03)
[2024-08-20] MEDS: NEURONTIN 100 MG PO (08:03)
[2024-08-20] MEDS: NIZORAL 2% CREAM TOPICAL (08:04)
[2024-08-20] MEDS: SANTYL OINTMENT 1 APPLIC TOPICAL (08:05)
[2024-08-20] MEDS: LOW STRENGTH ASPIRIN PO (08:27)
[2024-08-20 08:32] LABS: INR 1.08; PT 14.3 Sec (11.4-14.6)
[2024-08-20] MEDS: NEURONTIN 600 MG PO (10:54)
[2024-08-20] MEDS: TYLENOL 1000 MG PO (10:54)
[2024-08-20] MEDS: HEPARIN 5000 UNITS SC (10:54)
--- NOTE | 2024-08-20 12:07 | CM ---
Patient not available in room
Went to OR
Current with [facility], refused SNF in past
await PT/OT post-op
PLAN: OR today, CM to follow post-op
--- NOTE | 2024-08-20 13:25 | W.PN.ID1 ---
Date of Service
Date of Service: August 20, 2024
Late addition; patient seen at 9:30 AM
Today's Communication
Observe off antibiotics. Await surgery.
Assessment / Plan
LUQ intra-abdominal abscess
- hx post-op LUQ infected hematoma s/p perc drain, Cx Klebsiella pneumoniae, ESBL-Ecoli s/p Ertapenem (05/31 to 07/29)
-LUQ drain removed 07/27/24
-LUQ fluid collection has increased in size with rim-enhancement, cannot safely aspirate per IR
Anterior midline lower abdominal incision drainage
-?fistula communication with underlying abscess
- cx 'few mixed skin negrito'. GNR's and GPC's seen on microscopy.
- No further drainage at present.
Anterior right-midline abdominal collection/abscess
- s/p drain placement (06/10/24) and recent upsizing of drain (07/27/24)
- Abscess cultures 07/17: staph epi, strep species x 2 s/p Ertapenem (05/31 to 07/29)
- minimal drainage at present
Hx Diverticulitis with diverticular perforation
- s/p diverting colostomy (05/22/2024).
- Intra-op splenic capsular tear with subsequent hematoma development
Recommendation:
- Patient clinically stable, with minimal leukocytosis. Remains afebrile.
- Continue off antibiotics, with close clinical observation.
- Sinus tract/drain study suspicious for communication with small bowel.
- Continue to follow clinically. Await tentative surgery today.
--> If possible, would check intraoperative cultures to delineate whether further antibiotics are necessary.
-Maximize nutrition.
����������������������������������������������������������
Chief Complaint
-: Other (Abd abscesses)
Subjective / Review of Systems
Patient seen and examined. Reports no specific complaints today. Awaiting surgery later today.
Vital Signs / Physical Exam
Vital Signs
Vital Signs
Temp Pulse Resp BP Pulse Ox
99.0 F 70 17 110/52 96
08/20/24 07:10 08/20/24 07:44 08/20/24 07:10 08/20/24 07:44 08/20/24 09:53
Physical Exam
Constitutional: No Acute Distress and Non-toxic
Eyes: Sclera Anicteric
Cardiovascular: S1/S2; Negative S3/S4
Pulmonary: Non Labored
Gastrointestinal: Soft, Non Distended and Other (Colostomy in place. Midline drainage catheter in place to JODIE.)
Extremities: Edema; Negative Cyanosis or Erythema
Neurological: Awake and Alert
Psychological: Calm
Objective Data
Lab Data
Lab Results
08/19/24 05:26
08/19/24 05:26
PT 14.3 Sec (11.4-14.6) 08/20/24 08:08
INR 1.08 08/20/24 08:08
APTT 35.0 Sec (23.4-35.0) 08/20/24 08:08
Estimated Creat Clear 92 ml/min 08/19/24 05:26
Total Bilirubin 0.3 mg/dl (0.2-1.3) 08/10/24 04:08
AST 19 U/L (14-36) 08/10/24 04:08
ALT 15 U/L (0-35) 08/10/24 04:08
Alkaline Phosphatase 76 U/L (38-126) 08/10/24 04:08
Most recent labs reviewed.
Micro Results:
08/10/24 04:08 Wound Culture - Final
Abdomen Gram Stain - Final
Imaging:
08/10/24 CT a/p: Interval removal of the left upper quadrant percutaneous drain with slightly increased size of the residual rim-enhancing collection just superior to the spleen which measures 6.3 x 4.1 cm. There is stable appearance of the right
lower quadrant percutaneous drain with overall similar size of the gas and fluid containing collection within the lower midline abdomen.
[2024-08-20] MEDS: NEURONTIN PO (15:19)
--- NOTE | 2024-08-20 16:39 | W.IMMPOSTOP ---
Surgical Immed Post Op Note
-
Primary Surgeon: Kermit Farnsworth MD
Assisting Surgeon: Leah Quiles MD; Leah CRESPO
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
Post-op Diagnosis: same
Procedure Performed: 1) exploratory laparotomy 2) partial small bowel resection X2 with takedown of enterocutaneous fistula
Anesthesia Type: general plus local
Specimen / Cultures: 1) abdominal abscess cultures 2) 2 sections of small bowel (1X35 cm and 1X15 cm)
Estimated Blood Loss: 100 cc
Complications: no immediate
Operative Findings: 1) significant intraabdominal adhesions 2) walled off abscess cavity of central anterior abdomen (the enterocutanous fistula) with 2 involved small bowel loops 3) challenging rectal stump to advance sizers up
IR drain removed during case.
Ontiveros in bladder.
NGT in stomach/confirmed.
Will send back to med surg.
[2024-08-20 16:49] LABS: Glucose - Point of Care 195 mg/dl (70-99)
--- NOTE | 2024-08-20 16:55 | W.PN.HOSP.TC ---
Today's Communication/Plan
-
Await OR cultures
Diet per surgery
Assessment / Plan
Assessment / Plan
Gen-awake, not alert, NAD
HEENT-NC, AT, anicteric, clear oral mm
Neck-supple
CV-reg, no M, +S1/S2
Lungs-clear B/L
Abd-soft, NT, ND, dressing intact
Ext-no edema
Musculoskeletal-no cyanosis, clubbing
Skin-warm and dry
Neuro-grossly non-focal
Psych-calm, cooperative
Intraabdominal abscess - multiple. Underwent exploratory laparotomy with abscess drainage 08/[address] Farnsworth. Colostomy was not reversed due to presence of sacral decubital wound. Discussed case with him. Large abscess that was walled off was
noted in the OR. Fluid sent for culture. Antibiotics per ID.
Leukocytosis resolved. Afebrile.
Resume diet when okay with surgical service.
Perforated sigmoid diverticulitis - s/p Caridad/colostomy formation/iatrogenic splenic capsular tear
-Continue colostomy care
-Continue follow-up with colorectal surgery
Left upper quadrant infected perisplenic hematoma
-Drain removed 07/30/2024
Essential Hypertension
-Continue antihypertensive
DM2 without hyperglycemia - HgbA1c 6.6%. Hold Farxiga, continue SSI. Glucose 119 this morning. 195 in the recovery room.
Hyperlipidemia
-Continue Lipitor
Chronic normocytic anemia -hemoglobin stable.
History of aortic coarctation
-s/p stent 20 years ago
Deconditioning
-Chronically ill complicated recent hospitalizations
-Uses walker at home
-PT/OT as tolerated
Endometrial cancer -s/p hysterectomy.
History of breast cancer
-S/p mastectomy and chemotherapy
Stage III sacral decubital wound -POA. Continue local wound care, offloading.
Obesity due to excess calories
Full code
Dispo -SNF recommended by PT.
Anticipated Discharge: > 48 hours
Subjective/Interval History
-
Date of Service: August 20, 2024
Patient seen and examined. Currently in the recovery room, somewhat sleepy but able to nod her head. No complaints.
Objective Data
-
Labs:
Laboratory Results
08/20/24
08:08
PT 14.3
INR 1.08
APTT 35.0
Vital Signs:
Vital Signs
Temp Pulse Resp BP Pulse Ox
99.0 F 70 17 110/52 96
08/20/24 07:10 08/20/24 07:44 08/20/24 07:10 08/20/24 07:44 08/20/24 09:53
I&O
08/19/24 08/20/24 08/21/24
06:59 06:59 06:59
Intake Total 2160 / 2160 2845 / 2845 100 / 100
Output Total 306 / 306 2085 / 2085 4 / 4
Balance 1854 / 1854 760 / 760 96 / 96
Review of Systems
-
Unable to obtain full review of systems at this time due to: Acuity
[2024-08-20] MEDS: NSS IV (17:23)
--- NOTE | 2024-08-20 18:14 | PTCARENOTE ---
Kanchan romeo was 195, MD order not to cover at this time. See MAR.
[2024-08-20] MEDS: TORADOL 10 MG IV (18:37)
[2024-08-20] MEDS: NORMOSOL-R/PLASMALYTE-A 1000 IV (18:43)
--- NOTE | 2024-08-20 18:52 | PTCARENOTE ---
Received pt back from PACU with RN at bedside, pt AAOx3, drowsy but arousable, VSS, 2Lo2, Normisol running at 80mL/hr, NGT to LIS in left nare, midline incision with aquacel over top, minimal drainage spotting and bandaid placed over small puncture
site directly to the right of the aquacel. Ontiveros catheter in place draining clear yellow urine. Stg 3 sacral wound care dressing CDI. Accucheck 195 not covered per MD order, 1800 scheduled Toradol administered. NGT flushed with 30cc's 0.9% NSS.
Family updated and at bedside, pt resting comfortably in bed at this time.
[2024-08-20] MEDS: SANTYL OINTMENT TOPICAL (19:04)
[2024-08-20] MEDS: COLACE LIQUID 100 MG TUBE (20:40)
[2024-08-20] MEDS: DILAUDID 0.25 MG IV (22:07)
[2024-08-20] MEDS: OFIRMEV 100 IV (22:13)
[2024-08-20] MEDS: NEURONTIN 100 MG TUBE (22:14)
[2024-08-20] MEDS: COZAAR 50 MG TUBE (22:49)
[2024-08-20] MEDS: LOPRESSOR 100 MG TUBE (22:49)
[2024-08-20 23:59] LABS: Glucose - Point of Care 232 mg/dl (70-99)
[2024-08-21] MEDS: NORMOSOL-R/PLASMALYTE-A 1000 IV (00:38)
[2024-08-21] MEDS: NSS IV (00:45)
[2024-08-21] MEDS: DILAUDID 0.25 MG IV ×4 (03:31→19:45)
[2024-08-21] MEDS: OFIRMEV 100 IV ×3 (04:18→16:34)
--- NOTE | 2024-08-21 04:47 | DOWNTIME ---
There was a [employer] Downtime on 08/21/2024 from 0100 to 08/21/2024 at 0350. Downtime documentation of patient's care, including medication administrations, has been reconciled in the electronic record per guidelines. Refer to the
patient's paper chart under the miscellaneous tab to see printed paper medication records and downtime forms.
[2024-08-21 05:40] LABS: Glucose - Point of Care 201 mg/dl (70-99)
[2024-08-21] MEDS: NOVOLOG FLEXPEN-LOW RESISTANCE 2 UNITS SC ×2 (05:41)
[2024-08-21] MEDS: TORADOL 10 MG IV ×3 (05:43→12:14)
[2024-08-21 06:00] VITALS: BMI 30.1
[2024-08-21 07:10] VITALS: BP 92/47
--- NOTE | 2024-08-21 08:05 | W.PN.HOSP.TC ---
Today's Communication/Plan
-
Recheck blood pressure
Await fluid culture
Assessment / Plan
Assessment / Plan
Gen-sleepy
HEENT-NC, AT, anicteric, clear oral mm
Neck-supple
CV-reg, no M, +S1/S2
Lungs-clear B/L
Abd-soft, NT, ND, dressing intact
Ext-no edema
Musculoskeletal-no cyanosis, clubbing
Skin-warm and dry
Neuro-grossly non-focal
Psych-calm, cooperative
Intraabdominal abscess - multiple. Underwent exploratory laparotomy, partial small bowel resection, enterocutaneous fistula takedown by Dr. Farnsworth. Colostomy was not reversed due to presence of sacral decubital wound. Discussed case with him.
Large abscess that was walled off was noted in the OR. Fluid sent for culture. Currently not on antibiotics, defer to ID.
Leukocytosis resolved. Afebrile.
N.p.o., NG tube in place.
Perforated sigmoid diverticulitis - s/p Caridad/colostomy formation/iatrogenic splenic capsular tear
-Continue colostomy care
-Continue follow-up with colorectal surgery
Left upper quadrant infected perisplenic hematoma
-Drain removed 07/30/2024
Essential Hypertension -relative hypotension noted. Stop losartan, amlodipine. Recheck blood pressure.
DM2 without hyperglycemia - HgbA1c 6.6%. Hold Farxiga, continue SSI. Glucose 119 this morning. 195 in the recovery room.
Hyperlipidemia
-Continue Lipitor
Chronic normocytic anemia -hemoglobin stable.
History of aortic coarctation
-s/p stent 20 years ago
Deconditioning
-Chronically ill complicated recent hospitalizations
-Uses walker at home
-PT/OT as tolerated
Endometrial cancer -s/p hysterectomy.
History of breast cancer
-S/p mastectomy and chemotherapy
Stage III sacral decubital wound -POA. Continue local wound care, offloading.
Obesity due to excess calories
Full code
Dispo -SNF recommended by PT.
Anticipated Discharge: > 48 hours
Subjective/Interval History
-
Date of Service: August 21, 2024
Patient seen and examined. Sleeping. No complaints.
Objective Data
-
Labs:
Laboratory Results
08/21/24
06:00
WBC Pending
Hgb Pending
Hct Pending
Plt Count Pending
Sodium Pending
Potassium Pending
Chloride Pending
Carbon Dioxide Pending
BUN Pending
Creatinine Pending
Glucose Pending
Calcium Pending
Vital Signs:
Vital Signs
Temp Pulse Resp BP Pulse Ox
98.5 F 73 18 92/47 99
08/21/24 07:10 08/21/24 07:10 08/21/24 07:10 08/21/24 07:10 08/21/24 07:10
I&O
08/20/24 08/21/24 08/22/24
06:59 06:59 06:59
Intake Total 2845 / 2845 1480 / 1480
Output Total 2085 / 2085 464 / 464
Balance 760 / 760 1016 / 1016
Review of Systems
-
History Source: Patient
All other systems: Reviewed and negative
[2024-08-21 08:29] LABS: Osmolality Urine 432 mOsm/kg (300-900)
[2024-08-21 08:46] LABS: Urine Sodium 81 mmol/L (30-90)
[2024-08-21] MEDS: LOPRESSOR 100 MG TUBE (10:18)
[2024-08-21] MEDS: FERROUS SULFATE ORAL LIQUID 300 MG TUBE (10:20)
[2024-08-21] MEDS: ALDACTONE 25 MG TUBE (10:20)
[2024-08-21] MEDS: COLACE LIQUID 100 MG TUBE ×2 (10:20→19:46)
[2024-08-21] MEDS: SANTYL OINTMENT 1 APPLIC TOPICAL ×2 (10:20→19:46)
[2024-08-21] MEDS: CRESTOR 40 MG TUBE (10:21)
[2024-08-21] MEDS: LOW STRENGTH ASPIRIN 81 MG TUBE (10:21)
[2024-08-21] MEDS: NIZORAL 2% CREAM 1 APPLIC TOPICAL (10:26)
[2024-08-21] MEDS: PROTONIX IV 40 MG IV (10:27)
[2024-08-21] MEDS: NSS (PRESERVATIVE FREE) 10 ML IV (10:27)
[2024-08-21] MEDS: NSS 1000 IV (10:43)
[2024-08-21 11:38] VITALS: BP 106/57
[2024-08-21 11:44] LABS: % Basophils 0.4 % (0-2); % Eosinophils 0.1 % (0-6); % Immature Granulocytes 0.4 % (0-0.5); % Lymphocytes 9.2 % (20.5-51.1); % Monocytes 9.6 % (1.7-9.3); % Neutrophils 80.3 % (42.2-75.2); Absolute Lymphocytes 0.7 10^3/uL (1.2-3.4); Absolute Monocytes 0.7 10^3/uL (0.1-0.6); Absolute Neutrophils 5.9 10^3/uL (1.4-6.5); Hematocrit 26.7 % (37.0-47.0); Hemoglobin 8.4 g/dL (12.0-16.0); Mean Corp Hgb Conc. 31.5 g/dL (33.0-37.0); Mean Corpuscular Hgb 26.8 pg (27.0-31.0); Mean Corpuscular Volume 85.3 fL (81.0-99.0); Mean Platelet Volume 10.7 fL (7.4-10.4); Nucleated Red Blood Cells % 0 %; Platelet Count 213 10^3/uL (130-400); Red Blood Cell Count 3.13 10^6/uL (4.20-5.40); Red Cell Dist. Width 17.4 % (11.5-14.5); White Blood Cell Count 7.4 10^3/uL (4.8-10.8)
[2024-08-21] MEDS: NEURONTIN 100 MG TUBE ×3 (12:11→21:10)
[2024-08-21 12:18] LABS: Glucose - Point of Care 132 mg/dl (70-99)
--- NOTE | 2024-08-21 12:54 | W.PN.CRS1 ---
Today's Communication / Plan
-
as below
Assessment/Plan
-
POD 1 ex lap, SBR x 2, takedown of enterocutaneous fistula
AFVSS
WBC 7.4, Hb 8.4 from 9.7, BMP pending, UOP 150 mL
� Oliguria, pending BMP; send renal ultrasound and urine lites; keep IVF at 125; strict intake/output
� Continue n.p.o. with NGT
� Continue pain control
�Appreciate ID; currently off antibiotics; Follow-up IntraOp cultures
� Continue DVT PPx with Lovenox
�OOB/IS, appreciate PT
� Appreciate hospitalist
Subjective Data
Subjective Data
Date of Service: August 21, 2024
No overnight events. Pain controlled. Denies N/V.
No ostomy function yet.
Objective Data
-
Vital Signs
Temp Pulse Resp BP Pulse Ox
98.2 F 72 17 106/57 98
08/21/24 11:38 08/21/24 11:38 08/21/24 11:38 08/21/24 11:38 08/21/24 11:38
Intake & Output
08/20/24 08/21/24 08/22/24
06:59 06:59 06:59
Intake Total 2845 / 2845 1480 / 1480
Output Total 2085 / 2085 464 / 464
Balance 760 / 760 1016 / 1016
Intake:
Oral fluids 2280 / 2280 80 / 80
IV fluids (Total) 525 / 525 1260 / 1260
Normosal 300 / 300
Amount instilled into Drain ( 40 / 40 20 / 20
Total)
Right Lower Abdomen Jeremi- 40 / 40 20 / 20
Luevano Placed in IR
Amount instilled into GI Tube ( 120 / 120
Total)
[place] Sump 120 / 120
Output:
Liquid stool amount 2084
Colostomy 2084
Drain Output (Total)
Right Lower Abdomen Jeremi-
Luevano Placed in IR
Gastrointestinal tube output ( 280 / 280
Total)
[place] Sump 280 / 280
Urine, Ontiveros 180 / 180
Other:
Number of approximated SMALL 1
amounts of urine
Number of approximated MODERATE 2 1
amounts of urine
Number of approximated LARGE 2
amounts of urine
How many times incontinent 1
SMALL amount urine
Lab Results
08/21/24 11:30
Physical Exam
-
General: No Acute Distress and AOx3
HEENT: Grossly Normal
Abdomen: Soft, Non Distended, Tender (Appropriately tender near midline incision), No Rebound, No Bowel Movement and Other (NGT-280 mL)
Skin: Warm and Dry
Wound: No Signs of Infection and Dressing in Place
[2024-08-21] MEDS: NOVOLOG FLEXPEN-LOW RESISTANCE SC ×2 (13:02→19:05)
[2024-08-21 13:13] LABS: Blood Urea Nitrogen 28 mg/dl (7-17); Calcium 8.1 mg/dl (8.4-10.2); Carbon Dioxide 20 mmol/L (22-30); Chloride 99 mmol/L (98-107); Estimated Creatinine Clearance 60 ml/min; Glucose 119 mg/dl (70-99); Magnesium 2.5 mg/dl (1.6-2.3); Sodium 132 mmol/L (135-145); eGFR 57.52
--- NOTE | 2024-08-21 13:49 | CM ---
Patient chart reviewed
s/p surgery
Await therapy eval
Refused SNF in past, current with [facility]
PLAN: await therapy eval
[2024-08-21 15:05] VITALS: BP 108/51
[2024-08-21] MEDS: ULTRAM 50 MG TUBE ×2 (16:33→22:34)
[2024-08-21] MEDS: CHLORASEPTIC/SORE THROAT SPRAY 1 SPRAY PO (16:34)
--- NOTE | 2024-08-21 16:42 | W.PN.ID1 ---
Date of Service
Date of Service: August 21, 2024
Today's Communication
Continue ertapenem for today.
Assessment / Plan
LUQ intra-abdominal abscess
- hx post-op LUQ infected hematoma s/p perc drain, Cx Klebsiella pneumoniae, ESBL-Ecoli s/p Ertapenem (05/31 to 07/29)
-LUQ drain removed 07/27/24
Anterior midline lower abdominal incision drainage
- fistula communication with underlying abscess
- cx 'few mixed skin negrito'. GNR's and GPC's seen on microscopy.
- S/P fistula repair
Anterior right-midline abdominal collection/abscess
- s/p drain placement (06/10/24) and recent upsizing of drain (07/27/24)
- Abscess cultures 07/17: staph epi, strep species x 2 s/p Ertapenem (05/31 to 07/29)
- s/p washout
Hx Diverticulitis with diverticular perforation
- s/p diverting colostomy (05/22/2024).
- Intra-op splenic capsular tear with subsequent hematoma development
Recommendation:
Patient has been placed back on empiric ertapenem while intraoperative cultures are pending.
Monitor white count and temperature curve.
Continue with supportive measures.
����������������������������������������������������������
Chief Complaint
-: Other (Abd abscesses)
Subjective / Review of Systems
Patient seen and examined. Underwent exploratory laparotomy yesterday, with attention to, and correction of fistula. Intraoperative cultures were obtained. Currently feels well.
Vital Signs / Physical Exam
Vital Signs
Vital Signs
Temp Pulse Resp BP Pulse Ox
98.2 F 72 17 106/57 98
08/21/24 11:38 08/21/24 11:38 08/21/24 11:38 08/21/24 11:38 08/21/24 11:38
Physical Exam
Constitutional: No Acute Distress and Non-toxic
Eyes: Sclera Anicteric
Cardiovascular: S1/S2; Negative S3/S4
Pulmonary: Non Labored
Gastrointestinal: Soft, Non Distended and Other (Colostomy in place. )
Extremities: Edema; Negative Cyanosis or Erythema
Neurological: Awake and Alert
Psychological: Calm
Objective Data
Lab Data
Lab Results
08/21/24 11:30
08/21/24 11:30
PT 14.3 Sec (11.4-14.6) 08/20/24 08:08
INR 1.08 08/20/24 08:08
APTT 35.0 Sec (23.4-35.0) 08/20/24 08:08
Estimated Creat Clear 60 ml/min 08/21/24 11:30
Total Bilirubin 0.3 mg/dl (0.2-1.3) 08/10/24 04:08
AST 19 U/L (14-36) 08/10/24 04:08
ALT 15 U/L (0-35) 08/10/24 04:08
Alkaline Phosphatase 76 U/L (38-126) 08/10/24 04:08
Most recent labs reviewed.
Micro Results:
08/20/24 13:30 Anaerobic Culture - Preliminary
Abdomen Culture pending. Anaerobic cultures are examined after 3
days incubation. Additional information to follow.
08/20/24 13:30 Wound Culture - Preliminary
Abdomen Gram Stain - Preliminary
08/10/24 04:08 Wound Culture - Final
Abdomen Gram Stain - Final
Imaging:
08/10/24 CT a/p: Interval removal of the left upper quadrant percutaneous drain with slightly increased size of the residual rim-enhancing collection just superior to the spleen which measures 6.3 x 4.1 cm. There is stable appearance of the right
lower quadrant percutaneous drain with overall similar size of the gas and fluid containing collection within the lower midline abdomen.
[2024-08-21] MEDS: INVANZ 60 MG IV (18:42)
[2024-08-21 18:59] LABS: Glucose - Point of Care 102 mg/dl (70-99)
[2024-08-21 19:00] VITALS: BP 133/57
[2024-08-21 23:51] VITALS: BP 142/71
[2024-08-22] VITALS (8 sets, daily range): BP systolic 102–186; BP diastolic 51–96; BMI 29.6
[2024-08-22 00:08] LABS: Glucose - Point of Care 116 mg/dl (70-99)
[2024-08-22] MEDS: NOVOLOG FLEXPEN-LOW RESISTANCE SC ×4 (00:49→18:12)
[2024-08-22] MEDS: NSS 1000 IV ×2 (01:31→13:19)
[2024-08-22] MEDS: DILAUDID 0.25 MG IV ×3 (01:43→10:06)
[2024-08-22 05:43] LABS: Glucose - Point of Care 125 mg/dl (70-99)
--- NOTE | 2024-08-22 06:01 | PTCARENOTE ---
Per MD order, Ontiveros to be removed POD #2 @ 0600. Patient is refusing removal of Ontiveros due to pain in abdomen. Pt pain increases with movement. Educated patient on increase risk of infection and benefits of early mobility postop. She states that she
understands and still refused. OPERATING ROOM MANAGER aware. Pt resting comfortably in bed, call mejia within reach.
[2024-08-22 06:56] LABS: % Basophils 0.4 % (0-2); % Eosinophils 1.3 % (0-6); % Immature Granulocytes 0.6 % (0-0.5); % Lymphocytes 9.1 % (20.5-51.1); % Monocytes 9.1 % (1.7-9.3); % Neutrophils 79.5 % (42.2-75.2); Absolute Eosinophils 0.1 10^3/uL (0-0.7); Absolute Immature Granulocytes 0.1 10^3/uL (0-0.05); Absolute Lymphocytes 0.8 10^3/uL (1.2-3.4); Absolute Monocytes 0.8 10^3/uL (0.1-0.6); Absolute Neutrophils 7.2 10^3/uL (1.4-6.5); Hematocrit 26.7 % (37.0-47.0); Hemoglobin 8.3 g/dL (12.0-16.0); Mean Corp Hgb Conc. 31.1 g/dL (33.0-37.0); Mean Corpuscular Hgb 26.8 pg (27.0-31.0); Mean Corpuscular Volume 86.1 fL (81.0-99.0); Mean Platelet Volume 11.3 fL (7.4-10.4); Nucleated Red Blood Cells % 0 %; Platelet Count 231 10^3/uL (130-400); Red Cell Dist. Width 17.2 % (11.5-14.5)
[2024-08-22 07:24] LABS: Blood Urea Nitrogen 26 mg/dl (7-17); Calcium 7.9 mg/dl (8.4-10.2); Carbon Dioxide 21 mmol/L (22-30); Chloride 104 mmol/L (98-107); Estimated Creatinine Clearance 72 ml/min; Glucose 114 mg/dl (70-99); Potassium 5.2 mmol/L (3.5-5.1); Sodium 136 mmol/L (135-145); eGFR > 60.00
[2024-08-22] MEDS: COLACE LIQUID 100 MG TUBE ×2 (09:06→20:46)
[2024-08-22] MEDS: LOW STRENGTH ASPIRIN 81 MG TUBE (09:06)
[2024-08-22] MEDS: FERROUS SULFATE ORAL LIQUID 300 MG TUBE (09:06)
[2024-08-22] MEDS: ULTRAM 50 MG TUBE ×2 (09:08→20:46)
[2024-08-22] MEDS: NEURONTIN 100 MG TUBE ×3 (09:09→21:58)
[2024-08-22] MEDS: PROTONIX IV 40 MG IV (09:10)
[2024-08-22] MEDS: CRESTOR 40 MG TUBE (09:10)
[2024-08-22] MEDS: NIZORAL 2% CREAM 1 APPLIC TOPICAL (09:10)
[2024-08-22] MEDS: NSS (PRESERVATIVE FREE) 10 ML IV (09:11)
[2024-08-22] MEDS: SANTYL OINTMENT 1 APPLIC TOPICAL ×2 (09:11→20:47)
[2024-08-22] MEDS: OMNIPAQUE 50 ML PO (09:28)
[2024-08-22] MEDS: TYLENOL ORAL SOLUTION 650 MG TUBE ×2 (09:54→20:46)
[2024-08-22] MEDS: LOPRESSOR 50 MG TUBE ×2 (09:55→20:47)
[2024-08-22] MEDS: CHLORASEPTIC/SORE THROAT SPRAY 1 SPRAY PO (10:13)
--- NOTE | 2024-08-22 10:13 | W.PN.HOSP.TC ---
Today's Communication/Plan
-
CT abdomen/pelvis
Blood cultures
Stop spironolactone
Resume metoprolol
IV fluids
Assessment / Plan
Assessment / Plan
Gen-awake, alert, mild distress due to pain
HEENT-NC, AT, anicteric, clear oral mm, NG tube
Neck-supple
CV-reg, no M, +S1/S2
Lungs-clear B/L
Abd-soft, NT, ND, dressing intact
Ext-no edema
Musculoskeletal-no cyanosis, clubbing
Skin-warm and dry
Neuro-grossly non-focal
Psych-calm, cooperative
Sepsis due to intraabdominal abscess - multiple. Underwent exploratory laparotomy, partial small bowel resection, enterocutaneous fistula takedown by Dr. Farnsworth. Colostomy was not reversed due to presence of sacral decubital wound. Discussed case
with him. Large abscess that was walled off was noted in the OR. Fluid sent for culture.
Having increased abdominal pain since surgery on 08/20.
Leukocytosis resolved. Fever started 08/22 AM. Blood culture sent. For repeat CT abdomen/pelvis today, ordered by colorectal surgery. Ertapenem IV resumed 08/21 by ID.
N.p.o., NG tube in place.
Sore throat and ear pain due to NG tube. Chloraseptic spray ordered.
Perforated sigmoid diverticulitis - s/p Caridad/colostomy formation/iatrogenic splenic capsular tear
-Continue colostomy care
-Continue follow-up with colorectal surgery
Left upper quadrant infected perisplenic hematoma
-Drain removed 07/30/2024
Essential Hypertension -metoprolol resumed.
Hyperkalemia -spironolactone discontinued.
DM2 without hyperglycemia - HgbA1c 6.6%. Hold Farxiga, continue SSI. Glucose 114 this morning.
Hyperlipidemia
-Continue Lipitor
Chronic normocytic anemia -hemoglobin stable.
History of aortic coarctation
-s/p stent 20 years ago
Deconditioning
-Chronically ill complicated recent hospitalizations
-Uses walker at home
-PT/OT as tolerated
Endometrial cancer -s/p hysterectomy.
History of breast cancer
-S/p mastectomy and chemotherapy
Stage III sacral decubital wound -POA. Continue local wound care, offloading.
Obesity due to excess calories
Full code
Dispo -SNF recommended by PT.
Updated son at the bedside.
Anticipated Discharge: > 48 hours
Subjective/Interval History
-
Date of Service: August 22, 2024
Patient seen and examined. Complaining of abdominal pain, sore throat, ear pain.
Objective Data
-
Labs:
Laboratory Results
08/22/24
06:13
WBC 9.0
Hgb 8.3 L
Hct 26.7 L
Plt Count 231
Sodium 136
Potassium 5.2 H
Chloride 104
Carbon Dioxide 21 L
BUN 26 H
Creatinine 0.9
Glucose 114 H
Calcium 7.9 L
Vital Signs:
Vital Signs
Temp Pulse Resp BP Pulse Ox
101.0 F H 125 16 152/81 95
08/22/24 08:59 08/22/24 09:55 08/22/24 08:59 08/22/24 09:55 08/22/24 08:59
I&O
08/21/24 08/22/24 08/23/24
06:59 06:59 06:59
Intake Total 1480 / 1480 2410 / 2410
Output Total 464 / 464 1350 / 1350
Balance 1016 / 1016 1060 / 1060
Review of Systems
-
History Source: Patient
All other systems: Reviewed and negative
--- NOTE | 2024-08-22 10:24 | W.PN.CRS1 ---
Today's Communication / Plan
-
Fever workup.
Assessment/Plan
-
POD 2.
1. new fever and tachycardia. However normal WBC. Hg stable. Admits to abdominal pain and is tender on exam. Hard to interpret abdominal tenderness given her fresh large midline incision. I am concerned with potential for small bowel
anastomotic leak or missed enterotomy. Will check CT with oral (via NGT) and IV contrast. Will check UA/Cx; CXR, and EKG as well. Antibiotics per ID. Discussed concerns and her son at bedside.
2. continue other measures.
3. appreciate help of hospitalist and ID.
Subjective Data
Subjective Data
Date of Service: August 22, 2024
Patient seen earlier in am.
Complained 'I don't feel well'.
Admitted to abdominal pain. Also with ear and throat discomfort.
Objective Data
-
Vital Signs
Temp Pulse Resp BP Pulse Ox
101.0 F H 125 16 152/81 95
08/22/24 08:59 08/22/24 09:55 08/22/24 08:59 08/22/24 09:55 08/22/24 08:59
Intake & Output
08/21/24 08/22/24 08/23/24
06:59 06:59 06:59
Intake Total 1480 / 1480 2410 / 2410
Output Total 464 / 464 1350 / 1350
Balance 1016 / 1016 1060 / 1060
Intake:
Oral fluids 80 / 80
IV fluids (Total) 1260 / 1260 1920 / 1920
Normosal 300 / 300
IV piggybacks 260 / 260
Feeding tube flush amount 230 / 230
Amount instilled into Drain ( 20 / 20
Total)
Right Lower Abdomen Jeremi- 20 / 20
Luevano Placed in IR
Amount instilled into GI Tube ( 120 / 120
Total)
[place] Sump 120 / 120
Output:
Drain Output (Total)
Right Lower Abdomen Jeremi-
Luevano Placed in IR
Gastrointestinal tube output ( 280 / 280 350 / 350
Total)
[place] Sump 280 / 280 350 / 350
Urine, Ontiveros 180 / 180 1000 / 1000
Other:
Number of approximated SMALL 1
amounts of urine
Number of approximated MODERATE 1
amounts of urine
Lab Results
08/22/24 06:13
08/22/24 06:13
Physical Exam
-
General: Mild Distress (anxious)
Chest: Decreased Breath Sounds (at bases)
Cardiovascular: Other (tachycardic)
Abdomen: Non Distended, Tender (bilaterally) and Other (stoma viable without output)
Wound: No Skin Erythema and Other (dressings intact)
[2024-08-22 12:05] LABS: Urine Albumin 1+ (Neg - Trace); Urine Bilirubin Negative (Negative); Urine Character Clear (Clear); Urine Color Yellow; Urine Glucose Negative (Negative); Urine Ketone Negative (Negative); Urine Leukocyte Negative (Negative); Urine Nitrite Negative (Negative); Urine Occult Blood Trace (Negative); Urine Specific Gravity 1.015 (<1.030); Urine Urobilinogen Negative (Neg - 1+)
[2024-08-22 12:19] LABS: Glucose - Point of Care 145 mg/dl (70-99)
[2024-08-22 12:20] LABS: Urine Uric Acid Crystals Seen
[2024-08-22 12:21] LABS: Urine Bacteria Few (Negative)
--- NOTE | 2024-08-22 14:48 | W.PN.UPDATE ---
Update Note
Progress Note Update
CT images and report reviewed. Discussed with Dr. Ramirez of IR. No obvious extravasation of oral contrast from the small or large bowel. Minimal free air. Suprasplenic collection stable. New left 'paracolic' fluid collection of unclear
significance. Has the density of simple fluid. This collection is amenable to aspiration/drain placement. Of note, CXR unremarkable as was UA. On reassessment of patient at bedside she appears more comfortable and feels somewhat better than this
am. Most recent HR down to 79. Abdominal exam still exhibits tenderness bilaterally but seems less than it was in am. Non-distended. Discussed with patient (with son Anshul at bedside) options of trip to OR for ex lap vs IR aspiration +/- drain
placement of left flank collections and pros and cons of each approach. Decided on IR aspiration which is being arranged.
--- NOTE | 2024-08-22 15:38 | PHA.VAN.IN ---
Assessment
- Assessment
Renal Function: Appears similar to baseline (SCR, BUN possibly slightly increased)
Concomitant Antimicrobials: ertapenem
AUC Dosing Plan
- Dosing Variables
Dosing Weight (kg): 83
Dosing CrCl (ml/min): 72
Vd coefficient (L/kg): 0.7
- Empiric Dosing
Initial / Loading Dose: 1500mg - administration pending
Maintenance Regimen: Vanc 750mg Q12H starting 08/23 06
Estimated AUC (mcg*h/mL): 415
Estimated Peak (mcg*h/mL): 24
Estimated Trough (mcg/ml): 11.9
Estimated Half Life (H): 10.8
- Monitoring
No levels ordered at this time: consider levels in next few days
Pharmacokinetics Vancomycin I
- -
Patient Age: 58
Patient Sex: Female
Vancomycin Day #: 1
Indication: Gi / Intra-Abdominal
Requesting Provider: Dr. Low
Pertinent Antimicrobial Allergies:
gentamicin - hearing loss
Height / Weight:
Height 5 ft 6 in
Actual Weight 83.234 kg
- Vital Signs / Lab Results
Temp Pulse Resp BP Pulse Ox
99.5 F 92 16 148/70 95
08/22/24 15:28 08/22/24 15:28 08/22/24 15:28 08/22/24 15:28 08/22/24 15:28
Lab Results - Hematology
08/21/24 08/22/24
06:13
WBC 7.4 9.0
Lab Results - Chemistry
08/21/24 08/22/24
1130 06:13
BUN 28 H 26 H
Creatinine 1.1 H 0.9
Estimated Creat Clear 60 72
Lab Results - Urine
08/22/24
11:27
Urine Nitrite Cancelled
Urine Nitrite (Reflex) Negative
Ur Leukocyte Esterase Cancelled
Leukocyte Esterase Rfl Negative
Urine WBC (Reflex) 3-5
Ur Squamous Epith Cells 6-10
Urine Bacteria (Reflex) Few A
Microbiology Results
08/20/24 13:30 Wound Culture - Preliminary
Abdomen Proteus mirabilis
Enterococcus species
Gram Stain - Preliminary
08/20/24 13:30 Anaerobic Culture - Preliminary
Abdomen Culture pending. Anaerobic cultures are examined after 3
days incubation. Additional information to follow.
[2024-08-22] MEDS: DILAUDID 0.5 MG IV (15:55)
--- NOTE | 2024-08-22 16:19 | W.PN.UPDATE ---
Update Note
Progress Note Update
Patient out of the room on my rounds - in IR for assessment of fluid collection
OR culture P mirabilis, Enterococcus species
I added vancomycin to the ertapenem
further assessment tomorrow.
--- NOTE | 2024-08-22 16:32 | W.PN.IRAD.PR ---
Procedure Note
-
Left abdominal collection aspirated under US guidance with return 45cc thin dark serosanguinous appearing fluid, not grossly purulent. Sample sent for analysis. No immediate complication.
--- NOTE | 2024-08-22 16:45 | W.PN.UPDATE ---
Update Note
Progress Note Update
Dr. Ramirez's aspiration procedure details noted. Apparently vicente off 45 cc of dark serosanguinous fluid without obvious bilious appearance. For now will continue supportive care and follow along closely. Patient's son, Anshul, updated via
message.
[2024-08-22] MEDS: VANCOCIN 530 MG IV (16:59)
[2024-08-22 17:52] LABS: Glucose - Point of Care 131 mg/dl (70-99)
[2024-08-22] MEDS: INVANZ 60 MG IV (17:57)
[2024-08-23] VITALS (10 sets, daily range): BP systolic 123–179; BP diastolic 65–89
[2024-08-23 01:02] LABS: Glucose - Point of Care 113 mg/dl (70-99)
[2024-08-23] MEDS: NOVOLOG FLEXPEN-LOW RESISTANCE SC ×4 (01:04→17:54)
[2024-08-23] MEDS: VANCOCIN 150 IV (06:01)
[2024-08-23 06:08] LABS: Glucose - Point of Care 119 mg/dl (70-99)
[2024-08-23] MEDS: TYLENOL ORAL SOLUTION 650 MG TUBE ×2 (08:08→15:18)
[2024-08-23] MEDS: NEURONTIN 100 MG TUBE ×3 (08:09→22:35)
[2024-08-23] MEDS: COLACE LIQUID 100 MG TUBE (08:09)
[2024-08-23] MEDS: FERROUS SULFATE ORAL LIQUID 300 MG TUBE (08:09)
[2024-08-23] MEDS: LOW STRENGTH ASPIRIN 81 MG TUBE (08:10)
[2024-08-23] MEDS: CRESTOR 40 MG TUBE (08:10)
[2024-08-23] MEDS: LOPRESSOR 50 MG TUBE (08:10)
[2024-08-23] MEDS: PROTONIX IV 40 MG IV (08:11)
[2024-08-23] MEDS: NSS (PRESERVATIVE FREE) 10 ML IV (08:11)
[2024-08-23] MEDS: NIZORAL 2% CREAM 1 APPLIC TOPICAL (08:12)
[2024-08-23] MEDS: SANTYL OINTMENT 1 APPLIC TOPICAL (08:12)
[2024-08-23] MEDS: ULTRAM 50 MG TUBE (08:13)
--- NOTE | 2024-08-23 08:22 | PN.CDI ---
CDI
- -
CDI:
Physician Documentation Request
Admit Date: 08/10/24 06:31
Dear Doctor Flash,
Please review the following and provide your response in the progress notes.
Clinical Indicators:
Pt admitted with multiple intra-abdominal abscesses after Hartmans procedure
Colorectal 08/21, ' Oliguria, pending BMP; send renal ultrasound and urine lites; keep IVF at 125; strict intake/output...'
Renal Functions below
Laboratory Tests
08/19/24 08/21/24 08/22/24
05:26 11:30 06:13
Creatinine 0.7 1.1 H 0.9
Clarify which of the following accurately represents the patient's renal status:
TIFFANI
Bump in creatinine
Other ( please specify)
Criteria for TIFFANI*
1 Increase in serum creatinine by > or = to 0.3 mg/dL (> or = to 26.5 micromol/L) within 48 hours, OR
2 Increase in serum creatinine to > or = to 1.5 times baseline, which is known or presumed to have occurred within 7 days, OR
3 Urine volume < 0.5 nL/kg/hour for six hours
Use of terms such as suspected, likely, concern for, or probable (associated with a specific diagnosis that is being evaluated, monitored, or treated as if it exists) are acceptable and can be coded in the inpatient setting, when documented at the
time of discharge.
Thank you,
Amara Jean Baptiste RN
CDI Specialist
[employer]
Please use your independent medical judgment in providing your response.
*Source: Kidney Disease: Improving Global Outcomes (KDIGO) 2012
[2024-08-23] MEDS: NSS 1000 IV (08:31)
--- NOTE | 2024-08-23 08:49 | W.PN.CRS1 ---
Today's Communication / Plan
-
Await WBC/labs.
Gen surg opinion.
Continue other measures.
Assessment/Plan
-
POD 3.
1. fever overnight. HR fluctuating between normal and elevated. WBC pending (normal yesterday). Urinating well. Admits to abdominal pain and has some tenderness which is difficult to interpret given her large/long midline incision. She is not
distended. Lower midline had some murky drainage--I opened this area and packed it--underlying tissue looked fine. The source of the fever is unclear--?abdominal source. Await WBC this am. The question is whether it would reasonable to take her
back to OR for an abdominal 'washout' and perhaps address the known suprasplenic collection at the same time. Asking Dr. Chavarria of general surgery to render an opinion. Long discussion had with patient and her son, Anshul, at the bedside.
2. antibiotics per ID.
Subjective Data
Subjective Data
Date of Service: August 23, 2024
Admits to abdominal discomfort.
No nausea.
Objective Data
-
Vital Signs
Temp Pulse Resp BP Pulse Ox
100.7 F H 121 23 169/89 97
08/23/24 07:10 08/23/24 08:10 08/23/24 07:10 08/23/24 08:10 08/23/24 07:10
Intake & Output
08/22/24 08/23/24 08/24/24
06:59 06:59 06:59
Intake Total 2410 / 2410 2810 / 2810
Output Total 1350 / 1350 1999 / 1999
Balance 1060 / 1060 810 / 810
Intake:
IV fluids (Total) 1920 / 1920 1660 / 1660
IV piggybacks 260 / 260 750 / 750
Feeding tube flush amount 230 / 230
Amount instilled into GI Tube ( 400 / 400
Total)
[place] Sump 400 / 400
Output:
Liquid stool amount 100 / 100
Colostomy 100 / 100
Gastrointestinal tube output ( 350 / 350 575 / 575
Total)
[place] Sump 350 / 350 575 / 575
Urine, Ontiveros 1000 / 1000 1325 / 1325
Physical Exam
-
General: Other (uncomfortable appearance)
Chest: Decreased Breath Sounds (at bases)
Cardiovascular: Other (tachycardia)
Abdomen: Non Distended and Tender (bilateral )
Incision: Other (dressings changed--lower edge with some murky fluid--a few merari removed --wound looked ok--packed)
[2024-08-23 09:33] LABS: % Basophils 0.4 % (0-2); % Eosinophils 0.8 % (0-6); % Immature Granulocytes 0.6 % (0-0.5); % Neutrophils 85.2 % (42.2-75.2); Absolute Eosinophils 0.1 10^3/uL (0-0.7); Absolute Immature Granulocytes 0.1 10^3/uL (0-0.05); Absolute Lymphocytes 0.7 10^3/uL (1.2-3.4); Absolute Monocytes 0.8 10^3/uL (0.1-0.6); Absolute Neutrophils 9.2 10^3/uL (1.4-6.5); Hematocrit 22.7 % (37.0-47.0); Hemoglobin 7.4 g/dL (12.0-16.0); Mean Corp Hgb Conc. 32.6 g/dL (33.0-37.0); Mean Corpuscular Hgb 27.7 pg (27.0-31.0); Mean Platelet Volume 10.9 fL (7.4-10.4); Nucleated Red Blood Cells % 0 %; Platelet Count 238 10^3/uL (130-400); Red Blood Cell Count 2.67 10^6/uL (4.20-5.40); Red Cell Dist. Width 17.2 % (11.5-14.5); White Blood Cell Count 10.9 10^3/uL (4.8-10.8)
[2024-08-23 09:37] LABS: Blood Urea Nitrogen 15 mg/dl (7-17); Calcium 7.6 mg/dl (8.4-10.2); Carbon Dioxide 20 mmol/L (22-30); Chloride 107 mmol/L (98-107); Estimated Creatinine Clearance 93 ml/min; Glucose 130 mg/dl (70-99); Potassium 4.3 mmol/L (3.5-5.1); Sodium 136 mmol/L (135-145); eGFR > 60.00
[2024-08-23] MEDS: DILAUDID 0.25 MG IV (10:55)
--- NOTE | 2024-08-23 11:00 | PTCARENOTE ---
Patient and son refused aguilar removal. educated on importance of Aguilar out and risk for infection. Dr. Flash solo.
--- NOTE | 2024-08-23 11:11 | W.PN.ID1 ---
Date of Service
Date of Service: August 23, 2024
Today's Communication
Antibiotics adjusted.
See below.
Assessment / Plan
Anterior right-midline abdominal collection/abscess
- s/p drain placement (06/10/24) and recent upsizing of drain (07/27/24)
- Abscess cultures 07/17: staph epi, strep species x 2 s/p Ertapenem (05/31 to 07/29)
- 08/20/24 s/p washout, SBR x 2 OR cx: Proteus , VRE, yeast
- 08/22/24 CT: new large fluid with bubbles from left lateral abd into soft tissue of pelvis
- 08/22/24 s/p IR aspiration of left abd fluid (no drain placed). Cx pending
Anterior midline lower abdominal incision drainage
- fistula communication with underlying abscess
- cx 'few mixed skin negrito'. GNR's and GPC's seen on microscopy.
- S/P fistula repair 08/20/24
LUQ intra-abdominal abscess
- hx post-op LUQ infected hematoma s/p perc drain, Cx Klebsiella pneumoniae, ESBL-Ecoli s/p Ertapenem (05/31 to 07/29)
-LUQ drain removed 07/27/24
- 08/[address] - stable size fluid collection
Hx Diverticulitis with diverticular perforation
- s/p diverting colostomy (05/22/2024).
- Intra-op splenic capsular tear with subsequent hematoma development
Recommendation:
Fever - suspect post-op fever within 72 hour window
DC Vancomycin.
Start Daptomycin 500mg IV q24h. Monitor CK while on daptomycin.
Hold statin while on daptomycin.
Start Micafungin pending identification of yeast.
Narrow Ertapenem to IV ceftriaxone and metronidazole.
Follow temps, wbc.
Follow clinically.
Chief Complaint
-: Other (Abd abscesses)
Subjective / Review of Systems
Pt feeling discouraged. + chills and sweats with the fever last night. + post-op abd pain.
Son at bedside.
Vital Signs / Physical Exam
Vital Signs
Vital Signs
Temp Pulse Resp BP Pulse Ox
100.7 F H 121 23 169/89 97
08/23/24 07:10 08/23/24 08:10 08/23/24 07:10 08/23/24 08:10 08/23/24 10:28
Selected Entries
08/22/24
20:30
Temp 101.3 F H
Physical Exam
Constitutional: Negative Comfortable
Eyes: No Conjunctival Hemorrhage and Sclera Anicteric
Cardiovascular: Regular Rate and S1/S2
Pulmonary: Clear (anteriorly)
Gastrointestinal: Soft, Tender, Decreased Bowel Sounds and Other (Midline gauze with blood - drying)
Extremities: Negative Edema
Neurological: AO x 3
Objective Data
Lab Data
Lab Results
08/23/24 09:14
08/23/24 09:14
PT 14.3 Sec (11.4-14.6) 08/20/24 08:08
INR 1.08 08/20/24 08:08
APTT 35.0 Sec (23.4-35.0) 08/20/24 08:08
Estimated Creat Clear 93 ml/min 08/23/24 09:14
Total Bilirubin 0.3 mg/dl (0.2-1.3) 08/10/24 04:08
AST 19 U/L (14-36) 08/10/24 04:08
ALT 15 U/L (0-35) 08/10/24 04:08
Alkaline Phosphatase 76 U/L (38-126) 08/10/24 04:08
Most recent labs reviewed.
Micro Results:
08/20/24 13:30 Wound Culture - Preliminary
Abdomen Proteus mirabilis
Enterococcus faecium - VRE
Yeast
Gram Stain - Preliminary
08/22/24 10:40 Blood Culture - Preliminary
Blood/Venous No Growth in 24 hours- Final report to follow
08/22/24 09:43 Blood Culture - Preliminary
Blood/Venous No Growth in 24 hours- Final report to follow
08/22/24 16:20 Body Fluid Culture - Pending
Fluid Gram Stain - Preliminary
08/20/24 13:30 Anaerobic Culture - Preliminary
Abdomen Culture pending. Anaerobic cultures are examined after 3
days incubation. Additional information to follow.
08/10/24 04:08 Wound Culture - Final
Abdomen Gram Stain - Final
08/22/24 CT a/p: Superior left upper abdominal abnormal fluid collection again seen, superior to the spleen, without overall significant change in size in appearance in comparison to most recent prior CT, as detailed above. Interval removal of
approximate midline anterior abdominal abscess catheter drainage with small volume residual fluid and air bubbles which could represent very small residual abscess. NEW LARGE ELONGATED CRESCENTIC AREA OF PREDOMINANTLY SIMPLE FLUID DENSITY WITH SOME
BUBBLES OF AIR extending from the left lateral abdomen into the soft tissues of the left lateral true pelvis amongst several loops of small bowel with thickened de [place] rosa, without definitive oral contrast within. This could represent a new infected
fluid collection.
[2024-08-23] MEDS: CUBICIN 10 MG IV (12:07)
[2024-08-23 12:09] LABS: Creatine Phosphokinase 33 U/L (30-135)
[2024-08-23 12:27] LABS: Glucose - Point of Care 103 mg/dl (70-99)
[2024-08-23] MEDS: STERILE WATER FOR INJECTION 20 ML IV (12:57)
[2024-08-23] MEDS: ROCEPHIN 2000 MG IV (12:57)
[2024-08-23] MEDS: LOPRESSOR 25 MG TUBE (13:03)
[2024-08-23] MEDS: NORVASC 5 MG TUBE (13:04)
--- NOTE | 2024-08-23 13:23 | W.PN.HOSP.TC ---
Addendum entered and electronically signed by Abdi Vidales DO 08/23/24 14:17:
TIFFANI -rising creatinine from 0.7 to 1.1 noted on 08/21. TIFFANI now resolved, creatinine 0.7 today.
Original Note:
Today's Communication/Plan
-
Monitor hemoglobin
Increase metoprolol
Add amlodipine
Assessment / Plan
Assessment / Plan
Gen-awake, alert, mild distress due to pain
HEENT-NC, AT, anicteric, clear oral mm, NG tube
Neck-supple
CV-reg, no M, +S1/S2
Lungs-clear B/L
Abd-soft, NT, ND, dressing intact
Ext-no edema
Musculoskeletal-no cyanosis, clubbing
Skin-warm and dry
Neuro-grossly non-focal
Psych-calm, cooperative
Sepsis due to intraabdominal abscess - multiple. Underwent exploratory laparotomy, partial small bowel resection, enterocutaneous fistula takedown by Dr. Farnsworth on 08/20. Colostomy was not reversed due to presence of sacral decubital wound.
Discussed case with him. Large abscess that was walled off was noted in the OR. Culture of fluid from 08/20 operating room shows Proteus and Enterococcus, yeast. Now on ceftriaxone, daptomycin, metronidazole, micafungin. ID following.
Leukocytosis resolved. Fever started 08/22 AM. Blood culture negative so far.
Repeat CT abdomen/pelvis 08/22 showed superior left upper abdominal fluid collection, superior to the spleen, without overall significant change compared to prior CT. Small residual fluid collection with air bubbles anteriorly. New large elongated
crescentic area of simple fluid density in the left lateral abdomen. This was aspirated by interventional radiology on 08/22, 45cc serosanguineous fluid obtained. Culture sent, pending.
N.p.o., NG tube in place. Defer decision on TPN to colorectal surgery.
Sore throat and ear pain due to NG tube. Chloraseptic spray ordered.
Perforated sigmoid diverticulitis - s/p Caridad/colostomy formation/iatrogenic splenic capsular tear
-Continue colostomy care
-Continue follow-up with colorectal surgery
Left upper quadrant infected perisplenic hematoma
-Drain removed 07/30/2024
Essential Hypertension -blood pressure now uncontrolled. Will increase dose of metoprolol, add amlodipine. Losartan remains on hold.
Hyperkalemia -spironolactone discontinued.
DM2 without hyperglycemia - HgbA1c 6.6%. Hold Farxiga, continue SSI. Glucose 130 this morning.
Hyperlipidemia
-Continue Lipitor
Acute on chronic normocytic anemia -hemoglobin trending down, 7.4 today. Concern for intra-abdominal bleeding versus other etiology. Monitor hemoglobin closely. Last dose of Lovenox was 08/18.
History of aortic coarctation
-s/p stent 20 years ago
Deconditioning
-Chronically ill complicated recent hospitalizations
-Uses walker at home
-PT/OT as tolerated
Endometrial cancer -s/p hysterectomy.
History of breast cancer
-S/p mastectomy and chemotherapy
Stage III sacral decubital wound -POA. Continue local wound care, offloading.
Obesity due to excess calories
Full code
Dispo -SNF recommended by PT.
Updated son at the bedside.
Anticipated Discharge: > 48 hours
Subjective/Interval History
-
Date of Service: August 23, 2024
Patient seen and examined. Complaining of irritation from NG tube.
Objective Data
-
Labs:
Laboratory Results
08/23/24
09:14
WBC 10.9 H
Hgb 7.4 L
Hct 22.7 L
Plt Count 238
Sodium 136
Potassium 4.3
Chloride 107
Carbon Dioxide 20 L
BUN 15
Creatinine 0.7
Glucose 130 H
Calcium 7.6 L
Vital Signs:
Vital Signs
Temp Pulse Resp BP Pulse Ox
100.2 F 112 22 179/85 92
08/23/24 12:05 08/23/24 13:04 08/23/24 12:05 08/23/24 13:04 08/23/24 12:05
I&O
08/22/24 08/23/24 08/24/24
06:59 06:59 06:59
Intake Total 2410 / 2410 2810 / 2810
Output Total 1350 / 1350 1999 / 1999
Balance 1060 / 1060 810 / 810
Review of Systems
-
History Source: Patient
All other systems: Reviewed and negative
[2024-08-23] MEDS: MYCAMINE 105 MG IV (13:30)
--- NOTE | 2024-08-23 14:53 | CON.GS ---
Addendum entered and electronically signed by Ramirez Chavarria MD 08/23/24 16:38:
Patient seen and examined with surgical nurse practitioner and discussed with Dr. Farnsworth.
Patient's son is at bedside as well helping provide details of history.
Recent surgical history of having undergone ex lap, Barbour procedure and end colostomy. Prolonged recovery with central intra-abdominal abscess and left upper quadrant perisplenic fluid collections which are managed with IR drainage. She was on
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 Recently discharged home and presents after enterocutaneous fistula matured to midline abdominal wall. She is
now postoperative day 3 status post ex lap, extensive/complete lysis of adhesions, small bowel resection x 2 for management of the enterocutaneous fistula.
General surgical consultation requested for assistance with postoperative care due to persistent postoperative abdominal pain, fever and tachycardia. Patient reports generalized abdominal pain intermittently with sharp spasms and stabbing pains.
She is also complaining about the NG tube being in place and having a cough. Her ostomy has started to function a bit.
AFVSS
Most recent temperature 100.2 �F, sinus tachycardia at 112, 179/85, oxygen saturation 92%.
Intermittently in distress when experiencing abdominal pain but calm and providing history between.
ABD: Soft, nondistended, generalized tenderness palpation with guarding but tenderness is distractible during our conversation without rebound or guarding at those times. Colostomy pink. Scant liquid/air in appliance.
Midline laparotomy incision partially open inferiorly with small skin site bleeding. Treated with silver nitrate to tamponade.
Numerous CT imaging studies reviewed. Most recent CT imaging 08/22/2024 with postoperative free fluid but no organizing collections. Oral contrast opacifies throughout small bowel and the colon without evidence of extravasation. No excessive
amount of intra-abdominal free air.
White blood cell count 10.9, hemoglobin 7.4, platelets 238. Neutrophils 85.2%, no bandemia.
Electrolytes with normal BUN and creatinine and slightly low carbon dioxide at 20.
Assessment/plan: 58-year-old female postoperative day 3 status post ex lap takedown EC fistula with complete lysis of adhesions and SBR x 2
No clear clinical or radiographic signs of immediate postoperative complication -enterotomy/abscess/soft tissue infection/active internal bleeding.
Recommend continued close observation with supportive care
Transfuse 2 units PRBCs as expected further drift in hemoglobin as it equilibrates postoperatively. Small skin ulcer treated with silver nitrate and no further bleeding noted.
Continue NG tube
Likely will place PICC line with consideration of TPN pending tomorrow's labs and NG tube output overnight
Discussed potential role for low-dose anxiolytic cautiously monitoring for any side effects and mental status. May help with her pain control and anxiety.
Lengthy discussions with patient and Dr. Farnsworth at bedside.
Will continue to follow closely thank you.
Original Note:
Medical History
-
Chief Complaint: fevers
History of Present Illness:
58-year-old female with a significant past medical history of acute sigmoid diverticulitis status post explorative laparotomy with Barbour's resection and colostomy on 05/22/2024. She had an extensive hospitalization from 05/20/2024 to 07/01/2024.
During her stay she developed intra-abdominal abscesses and had a right lower quadrant abscess as well as a left upper quadrant splenic hematoma and had IR drains placed in both. She was discharged to a nursing facility on IV antibiotics. Several
weeks later, her son noticed a foul smelling odor around her right lower quadrant JODIE drain and she presented through the ER and was re-admitted from 07/17/2024- to 07/31/2024. During that admission her LUQ drain was removed and her midline drain was
upsized by IR. She was discharged to home off antibiotics 07/31/2024 and returned on 08/02/2024 after a fall with weakness and was followed off antibiotics with RLQ drain in place and eventually discharged back to home on 08/07/24 with home care.
She presented through the ED again this admission as she has had ongoing issues maintaining suction to the drain and flushing it as well as new drainage from her prior midline incision and after initial work up was taken back to the OR on 08/20/24
for management of enterocutaneous fistula with extensive lysis of adhesions and small bowel resection x2. Post operatively, NGT remains in place while awaiting return of bowel function with onset of fevers and tachycardia over the past 2 days. Fluid
noted on follow up CT imaging on 08/22 and was aspirated by IR and noted to be serosanguineous with no growth on cultures to date. There was bloody drainage to the base of the incision with several merari removed earlier today and active bleeding
noted on current exam. She has no significant focal tenderness but does complain of generalized pain. She is quite anxious to cough as this exacerbates her pain.
Past Medical History
Past Medical History: Cancer (breast s/p mastectomy and chemo; endometrial s/p LETI), Diverticulitis (with perforation), NIDDM and Other (thrombocytopenia, coarctation of the aorta, obesity, sacral decub)
Past Surgical History: Bowel Resection (Caridad's 05/22/24 with end colostomy creation complicated by RLQ abscess and splenic hematoma; subsequently developed enterocutaneous fistula and now SBR with ROSEANNE on 08/20/24)
Social History
Tobacco: Non-Smoker
Alcohol: None
Family History
Family History: Reviewed & Not Pertinent
Allergies / Home Medications
Allergy/AdvReac Type Severity Reaction Status Date / Time
diphtheria, pertussis, Allergy Unknown Verified 08/10/24 02:30
tetanus vacc
gentamicin Allergy Hearing Verified 08/10/24 02:30
loss
�Medication �Instructions �Recorded �Confirmed �Type
multivitamin with folic acid 400 1 tab PO DAILY Supplement 09/02/20 08/10/24 History
mcg tablet (Tab-A-Sherley)
aspirin 81 mg chewable tablet 81 mg PO DAILY Blood Clot 05/20/24 08/10/24 History
Prevention/Tx
tirzepatide 2.5 mg/0.5 mL 2.5 mg SC WE Diabetes 05/20/24 08/10/24 History
subcutaneous pen injector
(Fernando)
acetaminophen 325 mg tablet 650 mg (2 x 325 mg) PO Q6HPRN PRN 07/01/24 08/10/24 Rx
mild pain #0 tabs
ferrous sulfate 325 mg (65 mg 325 mg PO DAILY Supplement #0 tabs 07/01/24 08/10/24 Rx
iron) tablet (FeroSul)
simethicone 80 mg chewable tablet 80 mg PO QIDPRN PRN gas pain #0 07/01/24 08/10/24 Rx
tabs
dapagliflozin propanediol 5 mg 5 mg PO DAILY diabetes #30 tabs 07/30/24 08/10/24 Rx
tablet
gabapentin 100 mg capsule 100 mg PO TID Pain #90 caps 07/30/24 08/10/24 Rx
insulin aspart U-100 100 unit/mL 4 unit (0.04 mL) SC AC Diabetes 07/30/24 08/10/24 Rx
(3 mL) subcutaneous pen #15 mL
ketoconazole 2 % topical cream 1 applic topical BID #60 grams 07/30/24 08/10/24 Rx
losartan 50 mg tablet 50 mg PO BID #60 tabs 07/30/24 08/10/24 Rx
metoprolol tartrate 100 mg tablet 100 mg PO BID #60 tabs 07/30/24 08/10/24 Rx
nifedipine 60 mg tablet,extended 60 mg PO BID #60 tabs 07/30/24 08/10/24 Rx
release
rosuvastatin 40 mg tablet (Crestor) 40 mg PO DAILY #30 tabs 07/30/24 08/10/24 Rx
spironolactone 25 mg tablet 25 mg PO DAILY Blood pressure #30 07/30/24 08/10/24 Rx
tabs
tramadol 50 mg tablet 50 mg PO Q6HPRN PRN moderate pain 07/30/24 08/10/24 Rx
#30 tabs
Review of Systems
-
History Source: Patient and Family
All other systems: Negative unless noted
A 10 point review of systems was completed, and was negative except as per HPI.
Physical Exam
Vital Signs
Temp Pulse Resp BP Pulse Ox
100.2 F 112 22 179/85 92
08/23/24 12:05 08/23/24 13:04 08/23/24 12:05 08/23/24 13:04 08/23/24 12:05
08/22/24 08/23/24 08/24/24
06:59 06:59 06:59
Actual Weight 83.234 kg
Body Mass Index (BMI) 29.6
Lab Results
08/23/24 09:14
08/23/24 09:14
WBC 10.9 10^3/uL (4.8-10.8) H 08/23/24 09:14
Hgb 7.4 g/dL (12.0-16.0) L 08/23/24 09:14
Hct 22.7 % (37.0-47.0) L 08/23/24 09:14
Plt Count 238 10^3/uL (130-400) 08/23/24 09:14
Abs Immat Gran (auto) 0.1 10^3/uL (0-0.05) H 08/23/24 09:14
Neutrophils % 85.2 % (42.2-75.2) H 08/23/24 09:14
Physical Exam
General: No Apparent Distress
HEENT: Normocephalic and Moist Mucous Membranes
Respiratory: Non Labored Respirations
GI: Soft, Tender (minimal bilaterally) and Other (stoma pink, round with minimal liquid output in stoma appliance)
Skin: Other (midline incision with merari removed at base of incision, active bleeding noted at skin level)
Neuro: Awake and AO x 3
Psych: Calm
Data Reviewed
-
CT Scan: Image Personally Visualized and interpreted, Report Reviewed by me, Discussed with Physician, Discussed with Nurse, Discussed with Patient and Discussed with Family
Labs: Labs Reviewed by me, Discussed with Physician, Discussed with Nurse, Discussed with Patient and Discussed with Family
Old Records: Reviewed
Assessment / Plan
-
58 yo female with recent history of perforated diverticulitis in April with Caridad's and recovery complicated initially by abscess and left upper quadrant splenic hematoma and had IR drains placed in both collections (now removed) who
subsequently developed an enterocutaneous fistula.
POD #3 Exploratory lap for takedown of EC fistula with ROSEANNE and SBR x2
CT imaging from 08/22 in follow up with stable hematoma superior to spleen with fluid/bubbles of air to left lateral abdomen and at prior abscess site. S/P aspiration in IR with SSF noted.
Mild leukocytosis with persistent fevers and tachycardia. IR aspirate of post op fluid seen on CT and blood cx from 08/22 with NGTD, wound cx from OR with VRE, proteus and yeast preliminarily
Bloody drainage from wound today with staple removal to base of incision. Active bleeding present at skin level: Silver nitrate applied at bedside with good effect.
Acute blood loss anemia superimposed on chronic anemia: ?etiology of tachycardia
Await bowel recovery from surgery, NGT in place (bilious outputs)
Severe protein calorie nutrition with unintentional weight loss of approx 17kg since April
Tachycardic with elevated BP's
--Transfuse x2 units tonight
--Consult associate software application engineer for possible TPN and place PICC
--Continue NGT to wall suction until return of bowel function
--ID following on antibiotics
--Anxiolytic prn
--Analgesics prn with addition of scheduled Ofirmev
--PT/OT following, encourage activity
--No plans for OR, will follow medically for improvement
[2024-08-23] MEDS: SILVER NITRATE APPLICATOR 1 EACH TOPICAL (15:05)
[2024-08-23] MEDS: SILVER NITRATE APPLICATOR 3 EACH TOPICAL (15:05)
[2024-08-23] MEDS: ATIVAN 0.25 MG IV ×2 (15:16→23:37)
[2024-08-23] MEDS: NSS (PRESERVATIVE FREE) 0.125 ML IV (15:17)
[2024-08-23] MEDS: FLAGYL 500 MG 100 IV ×2 (15:18→21:51)
--- NOTE | 2024-08-23 15:46 | CM ---
Chart reviewed
s/p surgery
PT/OT evals - pending
Current with [facility] - recs pending
Plan - anticipate home with VN vs SNF when medically ready
--- NOTE | 2024-08-23 16:10 | WOUNDNOTE ---
[facility] RN note: Patient s/p fistula repair this past Monday. Nursing to do routine colostomy appliance changes. Patient does not want ostomy appliance changed today. Appliance intact without leakage. Patient had bleeding from mid abdominal incisional
wound earlier treated with silver nitrate as per HARMONY Burrows. Extra colostomy appliance left in room. Patient hesitant to turn d/t mid abdomen. Mid abdominal dressing D+I. Patient turned with assist. Sacral ulcer pink, yellow fibrin with small
purple area and macerated edges. Sacral dressing changed. Patient propped to R semi side lying position using pillow and air chair cushion. Heels off bed with pillow. Skin on heels intact. Discussed with HARMONY Burrows.
--- NOTE | 2024-08-23 16:39 | WOUNDNOTE ---
t/c SPD and ordered a colostomy change kit. t/c Spoke with Dominique who will place in patient's room.
[2024-08-23 17:50] LABS: Glucose - Point of Care 121 mg/dl (70-99)
[2024-08-23] MEDS: LOPRESSOR 100 MG TUBE (20:20)
[2024-08-23] MEDS: DILAUDID 0.5 MG IV (20:27)
[2024-08-23] MEDS: OFIRMEV 100 IV (21:16)
[2024-08-24] MEDS: SANTYL OINTMENT 1 APPLIC TOPICAL ×3 (00:18→21:55)
[2024-08-24 00:31] LABS: Glucose - Point of Care 108 mg/dl (70-99)
[2024-08-24] MEDS: NOVOLOG FLEXPEN-LOW RESISTANCE SC ×3 (00:58→17:50)
[2024-08-24 01:24] VITALS: BP 122/61
--- NOTE | 2024-08-24 01:26 | PTCARENOTE ---
Pt completed 2 units PRBC @ this time, tolerated well, son @ bedside throughout shift. Denies chest pain or SOB callbell within reach.
[2024-08-24] MEDS: OFIRMEV 100 IV ×4 (01:43→22:15)
[2024-08-24] MEDS: FLAGYL 500 MG 100 IV ×3 (05:08→22:27)
[2024-08-24 06:00] VITALS: BMI 29.7
[2024-08-24 06:32] LABS: Glucose - Point of Care 164 mg/dl (70-99)
[2024-08-24] MEDS: NOVOLOG FLEXPEN-LOW RESISTANCE 1 UNITS SC (06:32)
[2024-08-24 08:13] LABS: % Basophils 0.5 % (0-2); % Eosinophils 3.9 % (0-6); % Immature Granulocytes 0.8 % (0-0.5); % Lymphocytes 7.2 % (20.5-51.1); % Monocytes 8.5 % (1.7-9.3); % Neutrophils 79.1 % (42.2-75.2); Absolute Basophils 0.1 10^3/uL (0-0.2); Absolute Eosinophils 0.4 10^3/uL (0-0.7); Absolute Immature Granulocytes 0.1 10^3/uL (0-0.05); Absolute Lymphocytes 0.8 10^3/uL (1.2-3.4); Absolute Monocytes 0.9 10^3/uL (0.1-0.6); Absolute Neutrophils 8.3 10^3/uL (1.4-6.5); Hematocrit 31.8 % (37.0-47.0); Hemoglobin 10.5 g/dL (12.0-16.0); Mean Corpuscular Hgb 27.9 pg (27.0-31.0); Mean Corpuscular Volume 84.6 fL (81.0-99.0); Mean Platelet Volume 10.6 fL (7.4-10.4); Nucleated Red Blood Cells % 0 %; Platelet Count 239 10^3/uL (130-400); Red Blood Cell Count 3.76 10^6/uL (4.20-5.40); Red Cell Dist. Width 16.2 % (11.5-14.5); White Blood Cell Count 10.4 10^3/uL (4.8-10.8)
[2024-08-24 08:23] VITALS: BP 170/55
[2024-08-24] MEDS: DILAUDID 0.25 MG IV ×2 (08:31→12:49)
[2024-08-24] MEDS: FERROUS SULFATE ORAL LIQUID 300 MG TUBE (08:31)
[2024-08-24] MEDS: PROTONIX IV 40 MG IV (08:32)
[2024-08-24] MEDS: NSS (PRESERVATIVE FREE) 10 ML IV (08:32)
[2024-08-24] MEDS: NEURONTIN 100 MG TUBE (08:32)
[2024-08-24] MEDS: LOW STRENGTH ASPIRIN 81 MG TUBE (08:33)
[2024-08-24] MEDS: NORVASC 5 MG TUBE (08:33)
[2024-08-24] MEDS: LOPRESSOR 100 MG TUBE (08:33)
[2024-08-24] MEDS: NIZORAL 2% CREAM 1 APPLIC TOPICAL (08:33)
[2024-08-24] MEDS: ATIVAN 0.25 MG IV ×2 (09:01→17:15)
[2024-08-24] MEDS: CHLORASEPTIC/SORE THROAT SPRAY 1 SPRAY PO (09:07)
[2024-08-24 09:17] LABS: ALT (SGPT) 11 U/L (0-35); AST (SGOT) 19 U/L (14-36); Albumin 2.6 g/dl (3.5-5.0); Alkaline Phosphatase 84 U/L (38-126); Blood Urea Nitrogen 13 mg/dl (7-17); Calcium 7.9 mg/dl (8.4-10.2); Carbon Dioxide 21 mmol/L (22-30); Chloride 104 mmol/L (98-107); Estimated Creatinine Clearance 109 ml/min; Glucose 97 mg/dl (70-99); Magnesium 2.1 mg/dl (1.6-2.3); Phosphorus 3.5 mg/dl (2.5-4.5); Potassium 4.1 mmol/L (3.5-5.1); Sodium 137 mmol/L (135-145); Total Bilirubin 0.7 mg/dl (0.2-1.3); Total Protein 5.3 g/dl (6.3-8.2); eGFR > 60.00
[2024-08-24 09:23] LABS: Prealbumin (Transthyretin) 7.1 mg/dl (17.6-36.0)
--- NOTE | 2024-08-24 10:44 | W.PN.GS2 ---
Addendum entered and electronically signed by Ramirez Chavarria MD 08/24/24 17:34:
Patient seen and examined this a.m. with surgical PEANUT ROASTER. Agree with documented progress note. This is a delayed entry.
Patient's son at bedside.
They both report improvement with Ativan and her ability to manage her postoperative pain.
No nausea
Little bit of flatus and some liquid in ostomy
She is starting to feel bit better today than the previous few days.
AFVSS
ABD: Soft, nondistended, mild tenderness palpation and less voluntary guarding.
Ostomy mucosa pink. Some liquid stool and air.
NG tube clamped
A/P: NG tube clamping trial and anticipate likely removal this afternoon
Local wound care to incision
Continued clinical improvement
Original Note:
Today's Communication / Plan
-
clamp trial of NGT
Assessment / Plan
-
Assessment/plan: 58-year-old female postoperative day 4 status post ex lap takedown EC fistula with complete lysis of adhesions and SBR x 2
No clear clinical or radiographic signs of immediate postoperative complication -enterotomy/abscess/soft tissue infection/active internal bleeding. IR aspirate of post op fluid seen on CT and blood cx from 08/22 with NGTD, wound cx from OR with
VRE, proteus and yeast preliminarily
Small skin ulcer at base of incision treated with silver nitrate on 08/23, and no further bleeding noted.
h/h stable s/p 2 units 08/23
No further leukocytosis
No fevers overnight, VSS; tachycardia this am but none overnight
Pain better controlled. Anxiolytic helping
NGT outputs nonbilious and low. Some flatus/stool in appliance.
--Continue anxiolytic/analgesics, scheduled ofirmev has helped
--Local wound care: packed base of wound with saline soaked gauze
--Clamp trial of NGT, may need TPN given prolonged NPO
--OOB/Ambulate/PT following: thus far has been unable to get oob and work with PT d/t pain
--IS while awake, wean O2 as able
--ID following on ABX
--Medical management as per primary team
Subjective Data
-
Date of Service: August 24, 2024
Patient seen and examined at bedside with son present. She feels a bit better than yesterday but still with quite a bit of pain with turns/movement. No fevers overnight. No nausea/vomiting. Notes some air had to be pushed out of her appliance
yesterday as it was full.
Objective Data
-
Intake and Output
08/23/24 08/24/24 08/25/24
06:59 06:59 06:59
Intake Total 2810 / 2810 1490 / 1490
Output Total 2000 / 2000 1250 / 1250
Balance 810 / 810 240 / 240
Intake:
IV fluids (Total) 1660 / 1660
IV piggybacks 750 / 750 400 / 400
Amount instilled into GI Tube ( 400 / 400 90 / 90
Total)
[place] Sump 400 / 400 90 / 90
Blood products 500 / 500
Blood Product Amount Infused ( 500 / 500
mL)
Packed Rbc Leukoreduced Unit 250 / 250
[id number]
Packed Rbc Leukoreduced Unit 250 / 250
[id number]
Output:
Liquid stool amount 100 / 100
Colostomy 100 / 100
Gastrointestinal tube output ( 575 / 575 300 / 300
Total)
[place] Sump 575 / 575 300 / 300
Urine, Ontiveros 1325 / 1325 950 / 950
Vital Signs
Temp Pulse Resp BP Pulse Ox
98.8 F 115 20 170/55 97
08/24/24 08:23 08/24/24 08:33 08/24/24 08:23 08/24/24 08:33 08/24/24 08:23
Lab Results
08/24/24 07:52
08/24/24 07:52
Calcium 7.9 mg/dl (8.4-10.2) L 08/24/24 07:52
Phosphorus 3.5 mg/dl (2.5-4.5) 08/24/24 07:52
Magnesium 2.1 mg/dl (1.6-2.3) 08/24/24 07:52
Total Bilirubin 0.7 mg/dl (0.2-1.3) 08/24/24 07:52
AST 19 U/L (14-36) 08/24/24 07:52
ALT 11 U/L (0-35) 08/24/24 07:52
Alkaline Phosphatase 84 U/L (38-126) 08/24/24 07:52
Total Protein 5.3 g/dl (6.3-8.2) L 08/24/24 07:52
Albumin 2.6 g/dl (3.5-5.0) L 08/24/24 07:52
Physical Exam
-
NAD
ABD soft, ND, tenderness is generalized r>l; stoma warm, light pink, brown stool and minimal flatus in appliance
NGT with light yellow outputs
Midline incision with intact merari/vincent with dried blood, lower portion of incision with merari removed no active bleeding noted and no purulence present
--- NOTE | 2024-08-24 10:52 | W.PN.UPDATE ---
Update Note
Progress Note Update
E Faecium SDD for daptomycin - optimized dose to 10 mg/kg iv q24
awaiting ID of the yeast
08/22 cultures no growth to date
AW
[2024-08-24 11:50] LABS: Glucose - Point of Care 97 mg/dl (70-99)
--- NOTE | 2024-08-24 12:03 | W.PN.HOSP.TC ---
Today's Communication/Plan
-
Continue IV fluids
NG clamping trials per surgery
Monitor labs
Continue antibiotics
Assessment / Plan
Assessment / Plan
Gen-awake, alert, mild distress due to pain
HEENT-NC, AT, anicteric, clear oral mm, NG tube
Neck-supple
CV-reg, no M, +S1/S2
Lungs-clear B/L
Abd-soft, NT, ND, dressing intact
Ext-no edema
Musculoskeletal-no cyanosis, clubbing
Skin-warm and dry
Neuro-grossly non-focal
Psych-calm, cooperative
Sepsis due to intraabdominal abscess - multiple. Underwent exploratory laparotomy, partial small bowel resection, enterocutaneous fistula takedown by Dr. Farnsworth on 08/20. Colostomy was not reversed due to presence of sacral decubital wound.
Discussed case with him. Large abscess that was walled off was noted in the OR. Culture of fluid from 08/20 operating room shows Proteus, VRE, yeast. Now on ceftriaxone, daptomycin, metronidazole, micafungin. ID following.
Leukocytosis resolved. Fever started 08/22 AM. Blood culture negative so far.
Repeat CT abdomen/pelvis 08/22 showed superior left upper abdominal fluid collection, superior to the spleen, without overall significant change compared to prior CT. Small residual fluid collection with air bubbles anteriorly. New large elongated
crescentic area of simple fluid density in the left lateral abdomen. This was aspirated by interventional radiology on 08/22, 45cc serosanguineous fluid obtained. Culture sent, pending.
Postoperative ileus -still has NG tube in place. Clamping trial today per surgery. DC NG tube when okay with surgery. If she fails, consider TPN per surgical service.
Perforated sigmoid diverticulitis - s/p Caridad/colostomy formation/iatrogenic splenic capsular tear
-Continue colostomy care
-Continue follow-up with colorectal surgery
Left upper quadrant infected perisplenic hematoma
-Drain removed 07/30/2024
Essential Hypertension -blood pressure somewhat labile. Continue metoprolol, amlodipine. Losartan remains on hold.
Hyperkalemia -spironolactone discontinued.
DM2 without hyperglycemia - HgbA1c 6.6%. Hold Farxiga, continue SSI. Glucose 97 this morning.
Hyperlipidemia
-Continue Lipitor
Acute on chronic normocytic anemia -hemoglobin improved 10.5 today, transfused 2 units of blood on 08/23. Monitor hemoglobin closely. Last dose of Lovenox was 08/18.
History of aortic coarctation
-s/p stent 20 years ago
Deconditioning
-Chronically ill complicated recent hospitalizations
-Uses walker at home
-PT/OT as tolerated
Endometrial cancer -s/p hysterectomy.
History of breast cancer
-S/p mastectomy and chemotherapy
Stage III sacral decubital wound -POA. Continue local wound care, offloading.
Obesity due to excess calories
Full code
Dispo -SNF recommended by PT.
Updated son at the bedside.
Anticipated Discharge: > 48 hours
Subjective/Interval History
-
Date of Service: August 24, 2024
Patient seen and examined. Feeling better overall. No complaints.
Objective Data
-
Labs:
Laboratory Results
08/24/24
07:52
WBC 10.4
Hgb 10.5 L D
Hct 31.8 L
Plt Count 239
Sodium 137
Potassium 4.1
Chloride 104
Carbon Dioxide 21 L
BUN 13
Creatinine 0.6
Glucose 97
Calcium 7.9 L
Total Bilirubin 0.7
AST 19
ALT 11
Alkaline Phosphatase 84
Vital Signs:
Vital Signs
Temp Pulse Resp BP Pulse Ox
98.8 F 115 20 170/55 97
08/24/24 08:23 08/24/24 08:33 08/24/24 08:23 08/24/24 08:33 08/24/24 08:23
I&O
08/23/24 08/24/24 08/25/24
06:59 06:59 06:59
Intake Total 2810 / 2810 1490 / 1490 175 / 175
Output Total 1999 1250 / 1250
Balance 810 / 810 240 / 240 175 / 175
Review of Systems
-
History Source: Patient and Family
All other systems: Reviewed and negative
[2024-08-24] MEDS: NSS 1000 IV (12:23)
[2024-08-24] MEDS: MYCAMINE 105 MG IV (12:25)
[2024-08-24] MEDS: CUBICIN 16.8 MG IV (12:25)
[2024-08-24] MEDS: ROCEPHIN 2000 MG IV (12:29)
[2024-08-24] MEDS: STERILE WATER FOR INJECTION 20 ML IV (12:29)
--- NOTE | 2024-08-24 15:18 | PTCARENOTE ---
PICC LINE ORDER ON HOLD FOR NOW. WILL CONT TO MONITOR IF TPN NEEDS ARISE.
[2024-08-24 16:41] VITALS: BP 163/85
[2024-08-24] MEDS: NEURONTIN TUBE (16:47)
[2024-08-24 16:59] LABS: Glucose - Point of Care 95 mg/dl (70-99)
[2024-08-24] MEDS: NEURONTIN 100 MG PO (21:54)
[2024-08-24] MEDS: LOPRESSOR 100 MG PO (22:00)
[2024-08-24] MEDS: DILAUDID 0.5 MG IV (22:14)
[2024-08-24 22:37] VITALS: BP 169/103
[2024-08-25 01:35] LABS: Glucose - Point of Care 106 mg/dl (70-99)
[2024-08-25] MEDS: NOVOLOG FLEXPEN-LOW RESISTANCE SC ×4 (01:36→17:13)
[2024-08-25] MEDS: OFIRMEV 100 IV ×2 (01:38→09:16)
[2024-08-25] MEDS: FLAGYL 500 MG 100 IV ×3 (06:34→21:42)
[2024-08-25 06:40] LABS: Glucose - Point of Care 91 mg/dl (70-99)
[2024-08-25 07:09] VITALS: BP 170/86
[2024-08-25] MEDS: DILAUDID 0.25 MG IV (07:19)
[2024-08-25] MEDS: NEURONTIN 100 MG PO ×3 (09:18→21:42)
[2024-08-25] MEDS: CRESTOR 40 MG PO (09:18)
[2024-08-25] MEDS: NIZORAL 2% CREAM 1 APPLIC TOPICAL (09:18)
[2024-08-25] MEDS: LOW STRENGTH ASPIRIN 81 MG PO (09:18)
[2024-08-25] MEDS: LOPRESSOR 100 MG PO ×2 (09:19→20:02)
[2024-08-25] MEDS: NORVASC 5 MG PO (09:19)
[2024-08-25] MEDS: FEOSOL 325 MG PO (09:19)
[2024-08-25] MEDS: NSS (PRESERVATIVE FREE) 10 ML IV (09:20)
[2024-08-25] MEDS: PROTONIX IV 40 MG IV (09:20)
[2024-08-25] MEDS: SANTYL OINTMENT 1 APPLIC TOPICAL ×2 (09:20→20:02)
[2024-08-25] MEDS: ULTRAM 50 MG PO ×2 (09:43→20:23)
[2024-08-25] MEDS: ATIVAN 0.25 MG IV (09:44)
--- NOTE | 2024-08-25 10:49 | W.PN.HOSP.TC ---
Today's Communication/Plan
-
Full liquid diet
Resume losartan
Assessment / Plan
Assessment / Plan
Gen-awake, alert, mild distress due to pain
HEENT-NC, AT, anicteric, clear oral mm, NG tube
Neck-supple
CV-reg, no M, +S1/S2
Lungs-clear B/L
Abd-soft, NT, ND, dressing intact
Ext-no edema
Musculoskeletal-no cyanosis, clubbing
Skin-warm and dry
Neuro-grossly non-focal
Psych-calm, cooperative
Sepsis due to intraabdominal abscess - multiple. Underwent exploratory laparotomy, partial small bowel resection, enterocutaneous fistula takedown by Dr. Farnsworth on 08/20. Colostomy was not reversed due to presence of sacral decubital wound.
Discussed case with him. Large abscess that was walled off was noted in the OR. Culture of fluid from 08/20 operating room shows Proteus, VRE, yeast. Now on ceftriaxone, daptomycin, metronidazole, micafungin. ID following.
Leukocytosis resolved. Fever started 08/22 AM. Blood culture negative so far.
Repeat CT abdomen/pelvis 08/22 showed superior left upper abdominal fluid collection, superior to the spleen, without overall significant change compared to prior CT. Small residual fluid collection with air bubbles anteriorly. New large elongated
crescentic area of simple fluid density in the left lateral abdomen. This was aspirated by interventional radiology on 08/22, 45cc serosanguineous fluid obtained. Culture sent, pending.
Postoperative ileus -resolved. NG tube removed. Full liquid diet per surgical service.
Perforated sigmoid diverticulitis - s/p Caridad/colostomy formation/iatrogenic splenic capsular tear
-Continue colostomy care
-Continue follow-up with colorectal surgery
Left upper quadrant infected perisplenic hematoma
-Drain removed 07/30/2024
Essential Hypertension -blood pressure somewhat labile. Continue metoprolol, amlodipine. Resume losartan.
Hyperkalemia -spironolactone discontinued.
DM2 without hyperglycemia - HgbA1c 6.6%. Hold Farxiga, continue SSI. Glucose 91 this morning.
Hyperlipidemia
-Continue Lipitor
Acute on chronic normocytic anemia -hemoglobin improved 10.5, transfused 2 units of blood on 08/23. Monitor hemoglobin closely. Last dose of Lovenox was 08/18.
History of aortic coarctation
-s/p stent 20 years ago
Deconditioning
-Chronically ill complicated recent hospitalizations
-Uses walker at home
-PT/OT as tolerated
Endometrial cancer -s/p hysterectomy.
History of breast cancer
-S/p mastectomy and chemotherapy
Stage III sacral decubital wound -POA. Continue local wound care, offloading.
Obesity due to excess calories
VTE prophylaxis -has SCDs in place. Lovenox on hold for acute anemia.
Full code
Dispo -SNF recommended by PT.
Updated son at the bedside. Son is requesting that the IV team draws all blood work moving forward as he states no one else can obtain blood from her.
Anticipated Discharge: > 48 hours
Subjective/Interval History
-
Date of Service: August 25, 2024
Patient seen and examined. Feeling better with NG tube out. No complaints.
Objective Data
-
Vital Signs:
Vital Signs
Temp Pulse Resp BP Pulse Ox
98.1 F 78 20 170/86 96
08/25/24 07:09 08/25/24 09:19 08/25/24 07:09 08/25/24 09:19 08/25/24 07:09
I&O
08/24/24 08/25/24 08/26/24
06:59 06:59 06:59
Intake Total 1490 / 1490 1025 / 1025
Output Total 1250 / 1250 1645 / 1645
Balance 240 / 240 -620 / -620
Review of Systems
-
History Source: Patient
All other systems: Reviewed and negative
--- NOTE | 2024-08-25 11:01 | W.PN.GS2 ---
Addendum entered and electronically signed by Ramirez Chavarria MD 08/25/24 11:21:
Patient seen and examined with [employer]. Son at bedside.
Both patient and her son state that she is doing better.
Postoperative abdominal pain much improved.
They feel as though the as needed anxiety lytics are working very well for her and are requesting standing dose
AFVSS
ABD: Soft, nondistended, much less tenderness on palpation.
Midline laparotomy incision with inferior pole open -repacked, clean base, no purulence, no bleeding
Left-sided ostomy with air and some liquid stool in appliance
Assessment/plan: POD #5 status post takedown EC fistula, SBR x 2 and lysis of adhesions
Overall patient is doing well and appears to be turning the corner; no clinical signs of immediate postoperative infectious or anastomotic related complications.
Full liquid diet with supplements
Resume Lovenox for VTE prophylaxis
Local wound care
Started on Ativan 0.5 mg p.o. twice daily (discussed with patient and her son tolerance of benzodiazepines and potential for withdrawal symptoms if she is taking it on a regular basis going forward -also discussed consideration of outpatient
follow-up with her primary for possible terminal supervisor anxiety lytic medications)
P.o. analgesics adjusted as well
Stopped IV Protonix
General surgery service will be signing off - further care per colorectal service/primary surgical service after weekend
Original Note:
Today's Communication / Plan
-
Increase activity/OOB
Transition to PO analgesics
Assessment / Plan
-
Assessment/plan: 58-year-old female postoperative day 5 status post ex lap takedown EC fistula with complete lysis of adhesions and SBR x 2. PPD #3 IR aspirate of post op fluid seen on follow up CT
blood cx from 08/22 without growth, wound cx from OR with VRE, proteus and yeast
Small skin ulcer at base of incision treated with silver nitrate on 08/23, and no further bleeding noted.
h/h stable s/p 2 units 08/23
No further leukocytosis: lab holiday today
No fevers, VSS; tachycardia resolved
Pain better controlled. Anxiolytic helping
NGT out on 08/24 without n/v, tolerating clears
--Continue anxiolytic/analgesics. Transition to PO agents as possible.
--Local wound care: packed base of incisional wound with saline soaked gauze
--Full liquid diet
--OOB/Ambulate/PT following
--IS while awake
--ID following on ABX
--Wound care following for sacral decub management
--Medical management as per primary team
Subjective Data
-
Date of Service: August 25, 2024
Patient seen and examined at bedside with Dr. Chavarria. Denies n/v. Pain improving from previous. Anxiety improved with Ativan. Tearful about missing the holidays with her family.
Objective Data
-
Intake and Output
08/24/24 08/25/24 08/26/24
06:59 06:59 06:59
Intake Total 1490 / 1490 1025 / 1025
Output Total 1250 / 1250 1645 / 1645
Balance 240 / 240 -620 / -620
Intake:
IV fluids (Total) 450 / 450
IV piggybacks 400 / 400 500 / 500
Amount instilled into GI Tube ( 90 / 90 75 / 75
Total)
[place] 90 / 90 75 / 75
Blood products 500 / 500
Blood Product Amount Infused ( 500 / 500
mL)
Packed Rbc Leukoreduced Unit 250 / 250
[id number]
Packed Rbc Leukoreduced Unit 250 / 250
[id number]
Output:
Liquid stool amount 70 / 70
Colostomy 70 / 70
Gastrointestinal tube output ( 300 / 300
Total)
[place] 300 / 300
Urine, [place] 950 / 950 1575 / 1575
Vital Signs
Temp Pulse Resp BP Pulse Ox
98.1 F 78 20 170/86 96
08/25/24 07:09 08/25/24 09:19 08/25/24 07:09 08/25/24 09:19 08/25/24 07:09
Lab Results
08/24/24 07:52
08/24/24 07:52
Calcium 7.9 mg/dl (8.4-10.2) L 08/24/24 07:52
Phosphorus 3.5 mg/dl (2.5-4.5) 08/24/24 07:52
Magnesium 2.1 mg/dl (1.6-2.3) 08/24/24 07:52
Total Bilirubin 0.7 mg/dl (0.2-1.3) 08/24/24 07:52
AST 19 U/L (14-36) 08/24/24 07:52
ALT 11 U/L (0-35) 08/24/24 07:52
Alkaline Phosphatase 84 U/L (38-126) 08/24/24 07:52
Total Protein 5.3 g/dl (6.3-8.2) L 08/24/24 07:52
Albumin 2.6 g/dl (3.5-5.0) L 08/24/24 07:52
Physical Exam
-
NAD
ABD soft, ND, tenderness is generalized r>l; stoma warm, light pink, brown stool and some flatus in appliance
Midline incision with intact merari/vincent with dried blood, lower portion of incision with merari removed no active bleeding noted and no purulence present
[2024-08-25] MEDS: COZAAR 25 MG PO ×2 (11:37→20:02)
[2024-08-25] MEDS: STERILE WATER FOR INJECTION 20 ML IV (11:43)
[2024-08-25] MEDS: ROCEPHIN 2000 MG IV (11:43)
[2024-08-25 11:59] LABS: Glucose - Point of Care 104 mg/dl (70-99)
[2024-08-25] MEDS: CUBICIN 16.8 MG IV (12:58)
[2024-08-25] MEDS: MYCAMINE 105 MG IV (12:59)
[2024-08-25] MEDS: DILAUDID 0.5 MG IV ×2 (15:08→21:44)
[2024-08-25 15:59] VITALS: BP 178/91
[2024-08-25 16:54] LABS: Glucose - Point of Care 129 mg/dl (70-99)
[2024-08-25] MEDS: LOVENOX 40 MG SC (17:47)
[2024-08-25] MEDS: TYLENOL 1000 MG PO (17:48)
[2024-08-25] MEDS: ATIVAN 0.5 MG PO (20:02)
[2024-08-25 21:16] LABS: Glucose - Point of Care 166 mg/dl (70-99)
[2024-08-25 23:25] VITALS: BP 157/94
[2024-08-26] MEDS: NOVOLOG FLEXPEN-LOW RESISTANCE SC (00:18)
[2024-08-26] MEDS: TYLENOL 1000 MG PO ×4 (00:19→17:10)
[2024-08-26] MEDS: ULTRAM 100 MG PO ×2 (03:20→09:41)
[2024-08-26] MEDS: FLAGYL 500 MG 100 IV ×3 (05:57→21:46)
[2024-08-26 06:00] VITALS: BMI 29.4
[2024-08-26 06:49] LABS: % Basophils 0.4 % (0-2); % Eosinophils 7.8 % (0-6); % Immature Granulocytes 1.1 % (0-0.5); % Lymphocytes 10.8 % (20.5-51.1); % Monocytes 8.2 % (1.7-9.3); % Neutrophils 71.7 % (42.2-75.2); Absolute Basophils 0.1 10^3/uL (0-0.2); Absolute Eosinophils 0.9 10^3/uL (0-0.7); Absolute Immature Granulocytes 0.1 10^3/uL (0-0.05); Absolute Lymphocytes 1.2 10^3/uL (1.2-3.4); Absolute Monocytes 0.9 10^3/uL (0.1-0.6); Absolute Neutrophils 8.1 10^3/uL (1.4-6.5); Hematocrit 32.2 % (37.0-47.0); Hemoglobin 10.5 g/dL (12.0-16.0); Mean Corp Hgb Conc. 32.6 g/dL (33.0-37.0); Mean Corpuscular Hgb 27.9 pg (27.0-31.0); Mean Corpuscular Volume 85.4 fL (81.0-99.0); Mean Platelet Volume 10.3 fL (7.4-10.4); Nucleated Red Blood Cells % 0 %; Platelet Count 288 10^3/uL (130-400); Red Blood Cell Count 3.77 10^6/uL (4.20-5.40); Red Cell Dist. Width 16.1 % (11.5-14.5); White Blood Cell Count 11.3 10^3/uL (4.8-10.8)
[2024-08-26 07:03] LABS: Blood Urea Nitrogen 8 mg/dl (7-17); Calcium 7.9 mg/dl (8.4-10.2); Carbon Dioxide 22 mmol/L (22-30); Chloride 101 mmol/L (98-107); Estimated Creatinine Clearance 108 ml/min; Glucose 106 mg/dl (70-99); Potassium 3.7 mmol/L (3.5-5.1); Sodium 134 mmol/L (135-145); eGFR > 60.00
[2024-08-26 07:10] VITALS: BP 150/79
[2024-08-26 08:46] LABS: Glucose - Point of Care 109 mg/dl (70-99)
[2024-08-26] MEDS: COZAAR 25 MG PO ×2 (09:30→20:42)
[2024-08-26] MEDS: NEURONTIN 100 MG PO ×3 (09:30→21:46)
[2024-08-26] MEDS: CRESTOR 40 MG PO (09:30)
[2024-08-26] MEDS: SANTYL OINTMENT 1 APPLIC TOPICAL ×2 (09:30→20:43)
[2024-08-26] MEDS: LOPRESSOR 100 MG PO ×2 (09:30→20:42)
[2024-08-26] MEDS: NORVASC 5 MG PO (09:31)
[2024-08-26] MEDS: NIZORAL 2% CREAM 1 APPLIC TOPICAL (09:31)
[2024-08-26] MEDS: FEOSOL 325 MG PO (09:31)
[2024-08-26] MEDS: LOW STRENGTH ASPIRIN 81 MG PO (09:31)
[2024-08-26] MEDS: ATIVAN PO ×2 (09:40→22:29)
--- NOTE | 2024-08-26 09:41 | W.PN.CRS1 ---
Today's Communication / Plan
-
regular diet
Assessment/Plan
-
Assessment/plan: 58-year-old female postoperative day 5 status post ex lap takedown EC fistula with complete lysis of adhesions and SBR x 2. PPD #3 IR aspirate of post op fluid seen on follow up CT
blood cx from 08/22 without growth, wound cx from OR with VRE, proteus and yeast
Small skin ulcer at base of incision treated with silver nitrate on 08/23, and no further bleeding noted.
h/h stable s/p 2 units 08/23, hgb 10.5 today
WBC 11.3 from 10.4
No fevers, VSS; tachycardia resolved
Pain better controlled
NGT out on 08/24 without n/v, tolerating clears
--Continue anxiolytic/analgesics. On Ultram po PRN and Dilaudid IV PRN.
--Local wound care: packed base of incisional wound with saline soaked gauze, change daily
--Advance to regular diet
--OOB/Ambulate/PT following. Encouraged patient to ambulate today.
--IS while awake
--ID following on ABX. Trend leukocytosis.
--Wound care following for sacral decub management
--Medical management as per primary team
--Wound RN for colostomy management
Subjective Data
Procedure
08/21- Exploratory laparotomy, Partial small bowel resection x2, Takedown of enterocutaneous fistula.
Subjective Data
Date of Service: August 26, 2024
Patient states she is feeling much improved over the last several days. Her pain is minimal. She denies nausea or vomiting. Her colostomy has function.
Objective Data
-
Vital Signs
Temp Pulse Resp BP Pulse Ox
97.8 F 79 18 150/79 97
08/26/24 07:10 08/26/24 09:31 08/26/24 07:10 08/26/24 09:31 08/26/24 07:10
Intake & Output
08/25/24 08/26/24 08/27/24
06:59 06:59 06:59
Intake Total 1025 / 1025 1500 / 1500
Output Total 1645 / 1645 1100 / 1100
Balance -620 / -620 400 / 400
Intake:
Oral fluids 890 / 890
IV fluids (Total) 450 / 450 60 / 60
IV piggybacks 500 / 500 550 / 550
Amount instilled into GI Tube ( 75 / 75
Total)
[place] 75 / 75
Output:
Liquid stool amount 70 / 70 150 / 150
Colostomy 70 / 70 150 / 150
Urine, [place] 1575 / 1575 700 / 700
Urine, Voided 250 / 250
Other:
Number of approximated SMALL 1
amounts of urine
Number of approximated MODERATE 1
amounts of urine
How many times incontinent 2
MODERATE amount urine
Lab Results
08/26/24 06:15
08/26/24 06:15
Physical Exam
-
General: No Acute Distress and AOx3
Abdomen: Soft, Non Distended and Non Tender
Wound: Dressing Changed (dry gauze packed into the lower incision site that is opened, no erythema or pus noted. few vincent removed. )
--- NOTE | 2024-08-26 10:50 | CM ---
Patient seen at bedside with son Anshul
Await PT/OT evals post-op
NGT out, regular diet today
[facility] with [facility], Patient states she does not want SNF
PLAN: Discharge when medically stable, await PT/OT eval
[2024-08-26] MEDS: CUBICIN 16.8 MG IV (11:01)
[2024-08-26] MEDS: ROCEPHIN 2000 MG IV (11:01)
[2024-08-26] MEDS: STERILE WATER FOR INJECTION 20 ML IV (11:01)
[2024-08-26 11:06] LABS: Glucose - Point of Care 118 mg/dl (70-99)
[2024-08-26] MEDS: ZOFRAN 4 MG IV (11:12)
[2024-08-26] MEDS: MYCAMINE 105 MG IV (11:30)
[2024-08-26 11:56] VITALS: BP 168/82
--- NOTE | 2024-08-26 12:00 | PTCARENOTE ---
Patient's diet upgraded to regular per colorectal surgery. Patient took bite of egg omelet before spitting it out and c/o nausea. Patient medicated with PRN zofran - see NOV. After administration of PRN zofran, patient c/o feeling sweaty,
dizzy/lightheaded. Vitals taken by tech stable - see documentation. Cool wash cloth provided to patient, patient reported improvement of symptoms. Colorectal made aware, no new orders at this time. Laying and sitting orthos obtained by tech
negative. Patient states she is unable to stand at bedside d/t increased dizziness on position changes. made aware.
--- NOTE | 2024-08-26 12:54 | W.PN.HOSP.TC ---
Addendum entered and electronically signed by Rene Church MD 08/26/24 17:24:
Physical Exam
NAD, resting comfortably in bed with a wet rag over her head
Scleral anicteric
Moist mucous membranes
No JVD
CTA bilateral
Normal S1-S2 no murmurs
Soft nontender nondistended bowel sounds active, colostomy intact
No peripheral pitting edema
Moves extremities spontaneously
AAOx3
Assessment and Plan
Severe sepsis secondary to intra-abdominal abscess
-S/p exploratory laparotomy with partial small bowel resection x 2 enteric cutaneous fistula takedown
-Abscess drain sent for culture which demonstrated Proteus VRE yeast
-Now on Rocephin and micafungin daptomycin and metronidazole
-ID following and follow CK hold statin while on daptomycin
-Advance diet as tolerated
-If not able to tolerate diet may possibly require TPN
-Provide antiemetics as needed for nausea
-Surgery following
Postop ileus
-Resolved
Anemia acute on chronic, normocytic, likely related to perioperative bleeding
-S/p 2 units PRBC
Perforated sigmoid diverticulitis
-S/p Barbour's procedure bowel resection x 2 colostomy
-Continue ostomy care
-Outpatient colorectal surgery follow
Type 2 diabetes
-A1c 6 point
-Hold Farxiga
-Continue sliding
-Goal blood glucose 1 40-1 80
-When able to tolerate diet carb
Original Note:
Today's Communication/Plan
-
Speech therapy evaluation
Orthostatic vitals.
Continue small portions of regular diet
Assessment / Plan
Assessment / Plan
Assessment -58-year-old female with PMHx complicated for type II DM, chronic normocytic anemia, coarctation of aorta s/p stenting, stage III sacral decubitus ulcer, endometrial cancer, sigmoid diverticulitis with multiple bowel resections and recent
enterocutaneous fistula comes to hospital for sepsis due to intra-abdominal abscess with postop enterocutaneous fistula takedown procedure complicated by postop ileus.
Plan-
Sepsis secondary to intra-abdominal abscess-multiple
S/p exploratory laparotomy, partial small bowel resection x 2, enterocutaneous fistula takedown by Dr. Farnsworth on 08/20.
S/p colostomy in March, colostomy reversal not performed due to sacral decubitus ulcer.
Fevers-08/14 8 AM, blood cultures negative. Leukocytosis resolved.
Repeat CT abdomen and pelvis-08/22-left upper abdominal fluid collection, no change compared to prior CT.
S/p aspiration of left abdominal fluid collection by IR on 08/22-45 cc serosanguineous fluid obtained,
Preliminary cultures of IR drain-negative.
Postop ileus-
Resolved.
Off of NG tube, tolerating full liquids well, colorectal surgery advance diet to regular today.
Patient choked on her regular diet-eggs in the a.m. today.
Refuses solid diets, speech therapy consulted for oral dysphagia.
Speech therapy evaluation had no concerns for dysphagia.
Speech recommended bland solids and small amounts at a time until patient is able to tolerate regular textures and get over her anxiety.
Anemia-
Acute on chronic, normocytic
S/p 2 units of PRBC transfusion on 08/23.
Last dose of Lovenox on 08/18.
Hemoglobin currently trending down, stable at 10.5.
Perforated sigmoid diverticulitis-
S/p Caridad procedure, bowel resection x 2, colostomy formation, iatrogenic splenic capsular repair.
Continue ostomy care.
Colorectal surgery in follow-up, appreciate inputs.
Type 2 diabetes mellitus-
HbA1c at 6.6.
Hold Farxiga, continue SSI.
Currently blood sugars well-controlled.
Patient is advancing to regular diet, reassess her blood sugars in the a.m. tomorrow.
Essential hypertension-
Blood pressure has been labile during this hospital admission
Continue, metoprolol, amlodipine, losartan with holding parameters.
Hyperkalemia-
Resolved, spironolactone discontinued.
Hyperlipidemia-continue Lipitor.
Left upper quadrant perisplenic hematoma-
IR drain removed on 07/30/2024.
Left upper quadrant infected perisplenic hematoma
-Drain removed 07/30/2024
Essential Hypertension -blood pressure somewhat labile. Continue metoprolol, amlodipine. Resume losartan.
Hyperkalemia -spironolactone discontinued.
Stage III sacral decubitus wound-
prior to admission, continue local wound care.
Frequent position changes.
DVT prophylaxis-SCD.
CODE STATUS full code.
Conditions [employer]-
History of aortic coarctation
-s/p stent 20 years ago
Deconditioning
-Chronically ill complicated recent hospitalizations
-Uses walker at home
-PT/OT as tolerated
Endometrial cancer -s/p hysterectomy.
History of breast cancer
-S/p mastectomy and chemotherapy
Stage III sacral decubital wound -POA. Continue local wound care, offloading.
Obesity due to excess calories
Dispo -SNF recommended by PT.
Anticipated Discharge: 24 - 48 hours
Subjective/Interval History
-
Date of Service: August 26, 2024
Overnight, patient is complaining of dizziness, and difficulty in tolerating the solid foods. She choked on her food in the a.m. today
Objective Data
-
Labs:
Laboratory Results
08/26/24
06:15
WBC 11.3 H
Hgb 10.5 L
Hct 32.2 L
Plt Count 288 D
Sodium 134 L
Potassium 3.7
Chloride 101
Carbon Dioxide 22
BUN 8
Creatinine 0.5 L
Glucose 106 H
Calcium 7.9 L
Vital Signs:
Vital Signs
Temp Pulse Resp BP Pulse Ox
98.3 F 62 17 168/82 97
08/26/24 11:56 08/26/24 11:56 08/26/24 11:56 08/26/24 11:56 08/26/24 12:41
I&O
08/25/24 08/26/24 08/27/24
06:59 06:59 06:59
Intake Total 1025 / 1025 1500 / 1500
Output Total 1645 / 1645 1100 / 1100
Balance -620 / -620 400 / 400
Review of Systems
-
History Source: Patient
Constitutional: Reports Fatigue
EENT: Reports Other (Difficulty swallowing solid foods.)
Respiratory: Reports No Symptoms
Cardiac: Reports No Symptoms
Abdomen/GI: Reports Abdominal Pain
Breast: Reports No Symptoms
Genitourinary: Reports No Symptoms
Musculoskeletal: Reports No Symptoms
Skin: Reports No Symptoms
Neuro: Reports Dizzy
Endocrine: Reports No Symptoms
Hematologic / Lymphatic: Reports No Symptoms
Psych: Reports Anxious
Physical Exam
-
General: No Apparent Distress and Comfortable
HEENT: Moist Mucous Membranes
Respiratory: Clear to Auscultation; Negative Wheezes, Rales, Rhonchi or Crackles
Cardiac: Regular Rhythm, S1/S2 and Murmur (Systolic, 3/6, best heard in aortic area.)
GI: Soft, Nontender, Nondistended, Normal Bowel Sounds, Ostomy (dark brown/green stool in ostomy. ) and Other (sutures and dressing intact)
Rectal: Brown
Musculoskeletal: No Clubbing, No Cyanosis and No Edema
Skin: Warm
Neuro: Awake and Alert
Psych: Calm
Data Reviewed
-
CT Scan: Image personally visualized and interpreted, Report Reviewed by me and Discussed with Physician
Medical Tests (Nuc Med, Echo etc): Image personally visualized and interpreted, Report Reviewed by me and Discussed with Physician
Labs: Labs Reviewed by me and Discussed with Physician
Old Records: Reviewed
[2024-08-26] MEDS: ULTRAM 50 MG PO (13:23)
[2024-08-26 13:50] VITALS: BP 149/80; BP 157/73; PULSE 70; PULSE 83
--- NOTE | 2024-08-26 13:54 | WOUNDNOTE ---
[facility] RN note: Spoke with RN Andreea who had changed patient's colostomy appliance using [place] wafer # [id number], Mario seal and [place] pouch # [id number]. Another [place] wafer # [id number] and Mario seal left in room. Nursing can assist with patient's
routine colostomy pouch changes. Andreea stated patient knows the steps of the appliance change but needs help with changing appliance. Patient is on a [facility] air bed. Heels off bed with pillow. She is positioned in a L lateral side lying
position.
--- NOTE | 2024-08-26 14:19 | W.PN.ID1 ---
Date of Service
Date of Service: August 26, 2024
Today's Communication
Continue antibiotics.
Assessment / Plan
Anterior right-midline abdominal collection/abscess
- s/p drain placement (06/10/24) and recent upsizing of drain (07/27/24)
- Abscess cultures 07/17: staph epi, strep species x 2 s/p Ertapenem (05/31 to 07/29)
- 08/20/24 s/p washout, SBR x 2 OR cx: Proteus , VRE, yeast
- 08/22/24 CT: new large fluid with bubbles from left lateral abd into soft tissue of pelvis
- 08/22/24 s/p IR aspiration of left abd fluid (no drain placed). Cx: No growth
Anterior midline lower abdominal incision drainage
- fistula communication with underlying abscess
- cx 'few mixed skin negrito'. GNR's and GPC's seen on microscopy.
- S/P fistula repair 08/20/24
LUQ intra-abdominal abscess
- hx post-op LUQ infected hematoma s/p perc drain, Cx Klebsiella pneumoniae, ESBL-Ecoli s/p Ertapenem (05/31 to 07/29)
-LUQ drain removed 07/27/24
- 08/[address] - stable size fluid collection
Hx Diverticulitis with diverticular perforation
- s/p diverting colostomy (05/22/2024).
- Intra-op splenic capsular tear with subsequent hematoma development
Recommendation:
Fever; improved
Continue daptomycin 500mg IV q24h. Monitor CK while on daptomycin.
Hold statin while on daptomycin.
Continue Micafungin pending identification of yeast.
Continue ceftriaxone and metronidazole.
Follow temps, wbc.
Follow clinically.
����������������������������������������������������������
Chief Complaint
-: Other (Abd abscesses)
Subjective / Review of Systems
Patient seen and examined. Reported feeling slightly lightheaded this a.m., along with the development of nausea following eating a small amount of scrambled eggs. Denies abdominal pain.
Review of Systems: No Fever and No Chills
Vital Signs / Physical Exam
Vital Signs
Vital Signs
Temp Pulse Resp BP Pulse Ox
98.3 F 62 17 168/82 97
08/26/24 11:56 08/26/24 11:56 08/26/24 11:56 08/26/24 11:56 08/26/24 12:41
Physical Exam
Constitutional: Negative Comfortable
Eyes: No Conjunctival Hemorrhage and Sclera Anicteric
Cardiovascular: Regular Rate and S1/S2
Pulmonary: Clear (anteriorly)
Gastrointestinal: Soft, Tender, Normal Bowel Sounds and Other (Midline dressing intact.)
Extremities: Negative Edema
Neurological: AO x 3
Psychological: Calm
Objective Data
Lab Data
Lab Results
08/26/24 06:15
08/26/24 06:15
PT 14.3 Sec (11.4-14.6) 08/20/24 08:08
INR 1.08 08/20/24 08:08
APTT 35.0 Sec (23.4-35.0) 08/20/24 08:08
Estimated Creat Clear 108 ml/min 08/26/24 06:15
Total Bilirubin 0.7 mg/dl (0.2-1.3) 08/24/24 07:52
AST 19 U/L (14-36) 08/24/24 07:52
ALT 11 U/L (0-35) 08/24/24 07:52
Alkaline Phosphatase 84 U/L (38-126) 08/24/24 07:52
Most recent labs reviewed.
Micro Results:
08/22/24 16:20 Body Fluid Culture - Final
Fluid No Growth After 72 Hours
Gram Stain - Final
08/22/24 10:40 Blood Culture - Preliminary
Blood/Venous No Growth in 4 days- Final report to follow
08/22/24 09:43 Blood Culture - Preliminary
Blood/Venous No Growth in 4 days- Final report to follow
08/20/24 13:30 Wound Culture - Final
Abdomen Proteus mirabilis
Enterococcus faecium - VRE
Yeast
Gram Stain - Final
08/20/24 13:30 Anaerobic Culture - Final
Abdomen
08/10/24 04:08 Wound Culture - Final
Abdomen Gram Stain - Final
Imaging:
08/22/24 CT a/p: Superior left upper abdominal abnormal fluid collection again seen, superior to the spleen, without overall significant change in size in appearance in comparison to most recent prior CT, as detailed above. Interval removal of
approximate midline anterior abdominal abscess catheter drainage with small volume residual fluid and air bubbles which could represent very small residual abscess. NEW LARGE ELONGATED CRESCENTIC AREA OF PREDOMINANTLY SIMPLE FLUID DENSITY WITH SOME
BUBBLES OF AIR extending from the left lateral abdomen into the soft tissues of the left lateral true pelvis amongst several loops of small bowel with thickened de [place] rosa, without definitive oral contrast within. This could represent a new infected
fluid collection.
[2024-08-26 15:05] VITALS: BP 136/77
--- NOTE | 2024-08-26 15:20 | PTOTSP ---
Speech Therapy Swallowing Assessment
No overt signs of oral/pharyngeal dysphagia or aspiration. Son present for session.
Recommend:
1. Continue with current diet of regular solids and thin liquids.
2. Meds with liquid as tolerated.
3. Suggested patient choose bland items from regular diet menu to start and advance as able.
4. No skilled ST indicated at this time.
--- NOTE | 2024-08-26 16:25 | PTCARENOTE ---
Patient drank entire chocolate supplement and ate calos crackers with speech therapist per son at bedside. Patient asleep in bed after session. This RN woke patient up for scheduled PO gabapentin, patient took pill with sip of apple juice, c/o
nausea after administration. Patient sat up in bed, occasionally gagging into basin but no emesis. Cool wash cloth provided. MD and colorectal made aware, patient made NPO with meds and sips per colorectal.
[2024-08-26 16:45] LABS: Glucose - Point of Care 133 mg/dl (70-99)
[2024-08-26] MEDS: LOVENOX 40 MG SC (17:10)
--- NOTE | 2024-08-26 20:04 | W.PN.UPDATE ---
Update Note
Progress Note Update
Patient seen and evaluated at the bedside. States that she has had 2 episodes of nausea and dizziness today. Denies any bloating and is having ostomy function.
Afebrile, VSS, O2 saturation >96%, ANO x 3, no focal deficits, ABD soft, nondistended, nontympanic, appropriately tender; ostomy pink with dark liquidy stool in bag
� Nausea seems unrelated to oral intake or ileus; continue n.p.o. and I will start IVF in case this is related to dehydration
� If dizziness persists in the a.m., would discuss with hospitalist for further workup
[2024-08-26 20:27] LABS: Glucose - Point of Care 109 mg/dl (70-99)
[2024-08-26] MEDS: D5/0.9% SODIUM CHLORIDE 1000 IV (20:43)
[2024-08-26 22:39] VITALS: BP 137/70
[2024-08-27 00:15] LABS: Glucose - Point of Care 112 mg/dl (70-99)
[2024-08-27] MEDS: NOVOLOG FLEXPEN-LOW RESISTANCE SC (00:29)
[2024-08-27] MEDS: TYLENOL 1000 MG PO ×4 (00:32→17:17)
[2024-08-27 03:38] VITALS: BMI 29.7
[2024-08-27] MEDS: ULTRAM 100 MG PO (03:41)
--- NOTE | 2024-08-27 05:22 | PTCARENOTE ---
Pt. had no more complaints of dizziness with movement this shift, tolerating sips of clears without nausea. IVF's hung as ordered, voiding frequently on the bedpan. Abdominal and sacral wound care provided.
[2024-08-27] MEDS: FLAGYL 500 MG 100 IV (05:34)
[2024-08-27 05:49] LABS: Glucose - Point of Care 150 mg/dl (70-99)
[2024-08-27] MEDS: NOVOLOG FLEXPEN-LOW RESISTANCE 1 UNITS SC ×3 (05:51→18:17)
[2024-08-27] MEDS: D5/0.9% SODIUM CHLORIDE 1000 IV ×2 (06:30→17:16)
[2024-08-27 07:10] VITALS: BP 156/81
[2024-08-27 08:37] LABS: Hematocrit 31.3 % (37.0-47.0); Hemoglobin 9.8 g/dL (12.0-16.0); Mean Corp Hgb Conc. 31.3 g/dL (33.0-37.0); Mean Corpuscular Hgb 27.3 pg (27.0-31.0); Mean Corpuscular Volume 87.2 fL (81.0-99.0); Mean Platelet Volume 10.5 fL (7.4-10.4); Platelet Count 290 10^3/uL (130-400); Red Blood Cell Count 3.59 10^6/uL (4.20-5.40); White Blood Cell Count 9.9 10^3/uL (4.8-10.8)
[2024-08-27 08:42] LABS: Blood Urea Nitrogen 10 mg/dl (7-17); Calcium 7.8 mg/dl (8.4-10.2); Carbon Dioxide 23 mmol/L (22-30); Chloride 104 mmol/L (98-107); Estimated Creatinine Clearance 108 ml/min; Glucose 124 mg/dl (70-99); Potassium 3.3 mmol/L (3.5-5.1); Sodium 137 mmol/L (135-145); eGFR > 60.00
[2024-08-27] MEDS: LOPRESSOR 100 MG PO ×2 (09:07→20:14)
[2024-08-27] MEDS: CRESTOR 40 MG PO (09:09)
[2024-08-27] MEDS: FEOSOL 325 MG PO (09:09)
[2024-08-27] MEDS: NEURONTIN 100 MG PO ×3 (09:09→21:54)
[2024-08-27] MEDS: COZAAR 25 MG PO ×2 (09:09→20:14)
[2024-08-27] MEDS: LOW STRENGTH ASPIRIN 81 MG PO (09:09)
[2024-08-27] MEDS: SANTYL OINTMENT 1 APPLIC TOPICAL ×2 (09:10→20:14)
[2024-08-27] MEDS: NORVASC 5 MG PO (09:10)
[2024-08-27] MEDS: NIZORAL 2% CREAM TOPICAL (09:10)
--- NOTE | 2024-08-27 09:11 | W.PN.CRS1 ---
Today's Communication / Plan
-
advance to clears
Assessment/Plan
-
Assessment/plan: 58-year-old female postoperative day 5 status post ex lap takedown EC fistula with complete lysis of adhesions and SBR x 2. PPD #3 IR aspirate of post op fluid seen on follow up CT
blood cx from 08/22 without growth, wound cx from OR with VRE, proteus and yeast
Small skin ulcer at base of incision treated with silver nitrate on 08/23, and no further bleeding noted.
h/h stable s/p 2 units 08/23, hgb 10.5 today
WBC 9.9 from 11.3
No fevers, VSS; tachycardia resolved
Pain better controlled
NGT out on 08/24 without n/v, tolerating clears
08/26- episodes of vertigo
--Continue anxiolytic/analgesics. On Ultram po PRN and Dilaudid IV PRN.
--Local wound care: packed base of incisional wound with saline soaked gauze, change daily
--Advance to clears with Ensure
--OOB/Ambulate/PT following.
--IS while awake
--ID following on ABX. Trend leukocytosis.
--Wound care following for sacral decub management
--Medical management as per primary team
--Wound RN for colostomy management
--Continue IVFs
Subjective Data
Procedure
08/21- Exploratory laparotomy, Partial small bowel resection x2, Takedown of enterocutaneous fistula.
Subjective Data
Date of Service: August 27, 2024
Patient states she had another episode of dizziness this AM. She has no nausea or vomiting. She is thirsty and has been tolerating clears. She has minimal pain.
Objective Data
-
Vital Signs
Temp Pulse Resp BP Pulse Ox
97.9 F 75 18 156/81 97
08/27/24 07:10 08/27/24 07:10 08/27/24 07:10 08/27/24 07:10 08/27/24 07:10
Intake & Output
08/26/24 08/27/24 08/28/24
06:59 06:59 06:59
Intake Total 1500 / 1500 2009
Output Total 1100 / 1100 275 / 275
Balance 400 / 400 1735 / 1735
Intake:
Oral fluids 890 / 890 810 / 810
IV fluids (Total) 60 / 60 1000 / 1000
IV piggybacks 550 / 550 200 / 200
Output:
Liquid stool amount 150 / 150 275 / 275
Colostomy 150 / 150 275 / 275
Urine, Ontiveros 700 / 700
Urine, Voided 250 / 250
Other:
Number of approximated SMALL 1 1
amounts of urine
Number of approximated MODERATE 1 1
amounts of urine
How many times incontinent 2
MODERATE amount urine
How many times incontinent 2
SATURATED amount urine
Number of unmeasured liquid
stools
Colostomy 1
Lab Results
08/27/24 06:46
08/27/24 06:46
Physical Exam
-
General: No Acute Distress and AOx3
Abdomen: Soft, Non Distended and Non Tender
Wound: Dressing in Place and Other (ostomy warm and pink)
[2024-08-27] MEDS: ATIVAN PO ×2 (09:15→20:10)
[2024-08-27] MEDS: ULTRAM 50 MG PO ×3 (10:59→23:32)
[2024-08-27] MEDS: KCL ELIXIR 40 MEQ PO (11:00)
--- NOTE | 2024-08-27 11:05 | CM ---
Patient chart reviewed.
Patient continues on IV anbx.
Diet increased to clears.
Wound care to sacral wound and colostomy care.
PT/OT evals (P). Await recommendations.
Plan: home with VN vs SNF (although patient does not want snf)
[2024-08-27] MEDS: ROCEPHIN 2000 MG IV (11:33)
[2024-08-27] MEDS: STERILE WATER FOR INJECTION 20 ML IV (11:35)
[2024-08-27] MEDS: MYCAMINE 105 MG IV (11:36)
[2024-08-27 12:29] LABS: Glucose - Point of Care 199 mg/dl (70-99)
--- NOTE | 2024-08-27 12:54 | W.PN.HOSP.TC ---
Addendum entered and electronically signed by Rene Church MD 08/27/24 14:49:
Physical Exam
NAD, resting comfortably in bed
Scleral anicteric
Moist mucous membranes
No JVD
CTA bilateral
Normal S1-S2 no murmurs
Soft nontender nondistended bowel sounds active, colostomy intact
No peripheral pitting edema
Moves extremities spontaneously
AAOx3
Assessment and Plan
Severe sepsis secondary to intra-abdominal abscess
-S/p exploratory laparotomy with partial small bowel resection x 2 enteric cutaneous fistula takedown
-Abscess drain sent for culture which demonstrated Proteus VRE yeast
-Now on Rocephin and micafungin daptomycin and metronidazole
-ID following and follow CK hold statin while on daptomycin
-Advance diet as tolerated
-If not able to tolerate diet may possibly require TPN
-Provide antiemetics as needed for nausea
-Surgery following
Postop ileus
-Resolved
Anemia acute on chronic, normocytic, likely related to perioperative bleeding
-S/p 2 units PRBC
Perforated sigmoid diverticulitis
-S/p Barbour's procedure bowel resection x 2 colostomy
-Continue ostomy care
-Outpatient colorectal surgery follow
Type 2 diabetes
-A1c 6 point
-Hold Farxiga
-Continue sliding
-Goal blood glucose 1 40-1 80
-When able to tolerate diet carb
Original Note:
Today's Communication/Plan
-
full liquid diet
Advance diet as tolerated.
Potassium repletion.
Assessment / Plan
Assessment / Plan
Assessment -58-year-old female with PMHx complicated for type II DM, chronic normocytic anemia, coarctation of aorta s/p stenting, stage III sacral decubitus ulcer, endometrial cancer, sigmoid diverticulitis with multiple bowel resections and recent
enterocutaneous fistula comes to hospital for sepsis due to intra-abdominal abscess with postop enterocutaneous fistula takedown procedure complicated by postop ileus.
Plan-
Sepsis secondary to intra-abdominal abscess-multiple
S/p exploratory laparotomy, partial small bowel resection x 2, enterocutaneous fistula takedown by Dr. Farnsworth on 08/20.
S/p colostomy in March, colostomy reversal not performed due to sacral decubitus ulcer.
Fevers-08/14 8 AM, blood cultures negative. Leukocytosis resolved.
Repeat CT abdomen and pelvis-08/22-left upper abdominal fluid collection, no change compared to prior CT.
S/p aspiration of left abdominal fluid collection by IR on 08/22-45 cc serosanguineous fluid obtained,
Preliminary cultures of IR drain-negative.
Postop ileus-
Resolved.
Off of NG tube, tolerating full liquids well, colorectal surgery advance diet to regular today.
Patient choked on her regular diet-eggs in the a.m. today.
Refuses solid diets, speech therapy consulted for oral dysphagia.
Speech therapy evaluation had no concerns for dysphagia.
Speech recommended bland solids and small amounts at a time until patient is able to tolerate regular textures and get over her anxiety.
Hypokalemia -
Repleted potassium in the am today.
Check potassium tomorrow, if continues to remain low, will check magnesium as well.
Anemia-
Acute on chronic, normocytic
S/p 2 units of PRBC transfusion on 08/23.
Last dose of Lovenox on 08/18.
Hemoglobin currently trending down, stable at 10.5.
Perforated sigmoid diverticulitis-
S/p Caridad procedure, bowel resection x 2, colostomy formation, iatrogenic splenic capsular repair.
Continue ostomy care.
Colorectal surgery in follow-up, appreciate inputs.
Type 2 diabetes mellitus-
HbA1c at 6.6.
Hold Farxiga, continue SSI.
Currently blood sugars well-controlled.
Patient is advancing to regular diet, reassess her blood sugars in the a.m. tomorrow.
Essential hypertension-
Blood pressure has been labile during this hospital admission
Continue, metoprolol, amlodipine, losartan with holding parameters.
Hyperkalemia-
Resolved, spironolactone discontinued.
Hyperlipidemia-continue Lipitor.
Left upper quadrant perisplenic hematoma-
IR drain removed on 07/30/2024.
Left upper quadrant infected perisplenic hematoma
-Drain removed 07/30/2024
Essential Hypertension -blood pressure somewhat labile. Continue metoprolol, amlodipine. Resume losartan.
Hyperkalemia -spironolactone discontinued.
Stage III sacral decubitus wound-
prior to admission, continue local wound care.
Frequent position changes.
DVT prophylaxis-SCD.
CODE STATUS full code.
Conditions [employer]-
History of aortic coarctation
-s/p stent 20 years ago
Deconditioning
-Chronically ill complicated recent hospitalizations
-Uses walker at home
-PT/OT as tolerated
Endometrial cancer -s/p hysterectomy.
History of breast cancer
-S/p mastectomy and chemotherapy
Stage III sacral decubital wound -POA. Continue local wound care, offloading.
Obesity due to excess calories
Dispo -SNF recommended by PT.
Anticipated Discharge: 24 - 48 hours
Subjective/Interval History
-
Date of Service: August 27, 2024
Patient is complaining of dizziness, hunger pain in her abdomen.
Objective Data
-
Labs:
Laboratory Results
08/27/24
06:46
WBC 9.9
Hgb 9.8 L
Hct 31.3 L
Plt Count 290
Sodium 137
Potassium 3.3 L
Chloride 104
Carbon Dioxide 23
BUN 10
Creatinine 0.5 L
Glucose 124 H
Calcium 7.8 L
Vital Signs:
Vital Signs
Temp Pulse Resp BP Pulse Ox
97.9 F 75 18 156/81 97
08/27/24 07:10 08/27/24 09:09 08/27/24 07:10 08/27/24 09:09 08/27/24 09:44
I&O
08/26/24 08/27/24 08/28/24
06:59 06:59 06:59
Intake Total 1500 / 1500 2009
Output Total 1100 / 1100 275 / 275
Balance 400 / 400 1735 / 1735
Review of Systems
-
History Source: Patient
Constitutional: Reports Fatigue
EENT: Reports No Symptoms Reported
Respiratory: Reports No Symptoms
Cardiac: Reports No Symptoms
Abdomen/GI: Reports Abdominal Pain and Pain (Secondary to being hungry.)
Breast: Reports No Symptoms
Genitourinary: Reports No Symptoms
Musculoskeletal: Reports No Symptoms
Skin: Reports No Symptoms
Neuro: Reports No Symptoms
Hematologic / Lymphatic: Reports No Symptoms
Physical Exam
-
General: No Apparent Distress and Comfortable
HEENT: Moist Mucous Membranes and PERRLA
Respiratory: Clear to Auscultation; Negative Wheezes, Rales, Rhonchi or Crackles
Cardiac: Regular Rhythm, S1/S2 and Murmur (Systolic murmur, 3/6 best heard in aortic area)
GI: Soft, Nontender, Normal Bowel Sounds, Ostomy and Other (incision site - clear, no erythema, exudate or discharge.)
Musculoskeletal: No Clubbing, No Cyanosis and No Edema
Skin: Warm
Neuro: No Motor Deficits
Psych: Calm
Data Reviewed
-
CT Scan: Image personally visualized and interpreted, Report Reviewed by me and Discussed with Physician
Ultrasound: Image personally visualized and interpreted, Report Reviewed by me and Discussed with Physician
Labs: Labs Reviewed by me and Discussed with Physician
[2024-08-27] MEDS: CUBICIN 16.8 MG IV (13:04)
[2024-08-27 14:15] VITALS: BP 149/81
[2024-08-27] MEDS: FLAGYL 500 MG PO ×2 (14:32→21:54)
[2024-08-27 16:32] LABS: Glucose - Point of Care 143 mg/dl (70-99)
[2024-08-27] MEDS: LOVENOX 40 MG SC (17:16)
[2024-08-27 18:13] LABS: Glucose - Point of Care 160 mg/dl (70-99)
--- NOTE | 2024-08-27 20:39 | W.PN.ID1 ---
Date of Service
Date of Service: August 27, 2024
Today's Communication
Continue abx.
Assessment / Plan
Anterior right-midline abdominal collection/abscess
- s/p drain placement (06/10/24) and recent upsizing of drain (07/27/24)
- Abscess cultures 07/17: staph epi, strep species x 2 s/p Ertapenem (05/31 to 07/29)
- 08/20/24 s/p washout, SBR x 2 OR cx: Proteus , VRE, yeast
- 08/22/24 CT: new large fluid with bubbles from left lateral abd into soft tissue of pelvis
- 08/22/24 s/p IR aspiration of left abd fluid (no drain placed). Cx: No growth
Anterior midline lower abdominal incision drainage
- enteric fistula communication with underlying abscess
- cx 'few mixed skin negrito'. GNR's and GPC's seen on microscopy.
- S/P enteric fistula repair 08/20/24
LUQ intra-abdominal abscess
- hx post-op LUQ infected hematoma s/p perc drain, Cx Klebsiella pneumoniae, ESBL-Ecoli s/p Ertapenem (05/31 to 07/29)
-LUQ drain removed 07/27/24
- 08/[address] - stable size fluid collection
Hx Diverticulitis with diverticular perforation
- s/p diverting colostomy (05/22/2024).
- Intra-op splenic capsular tear with subsequent hematoma development
Recommendation:
Fever; improved
Continue daptomycin 500mg IV q24h. Monitor CK while on daptomycin.
Holding statin while on daptomycin.
Continue Micafungin.
Continue ceftriaxone and metronidazole.
Follow temps, wbc.
Follow clinically.
����������������������������������������������������������
Chief Complaint
-: Other (Abd abscesses)
Subjective / Review of Systems
Late entry. Pt seen at 5pm
Tolerating clears. Feels well.
Review of Systems: No Fever and No Chills
Vital Signs / Physical Exam
Vital Signs
Vital Signs
Temp Pulse Resp BP Pulse Ox
98.1 F 79 16 174/79 95
08/27/24 14:15 08/27/24 20:14 08/27/24 14:15 08/27/24 20:14 08/27/24 14:15
Physical Exam
Constitutional: Negative Comfortable
Eyes: No Conjunctival Hemorrhage and Sclera Anicteric
Cardiovascular: Regular Rate and S1/S2
Pulmonary: Clear (anteriorly)
Gastrointestinal: Soft, Tender, Normal Bowel Sounds and Other (Midline dressing intact.)
Extremities: Negative Edema
Neurological: AO x 3
Psychological: Calm
Objective Data
Lab Data
Lab Results
08/27/24 06:46
08/27/24 06:46
PT 14.3 Sec (11.4-14.6) 08/20/24 08:08
INR 1.08 08/20/24 08:08
APTT 35.0 Sec (23.4-35.0) 08/20/24 08:08
Estimated Creat Clear 108 ml/min 08/27/24 06:46
Total Bilirubin 0.7 mg/dl (0.2-1.3) 08/24/24 07:52
AST 19 U/L (14-36) 08/24/24 07:52
ALT 11 U/L (0-35) 08/24/24 07:52
Alkaline Phosphatase 84 U/L (38-126) 08/24/24 07:52
Most recent labs reviewed.
Micro Results:
08/22/24 10:40 Blood Culture - Final
Blood/Venous No Growth - Final Report
08/22/24 09:43 Blood Culture - Final
Blood/Venous No Growth - Final Report
08/22/24 16:20 Body Fluid Culture - Final
Fluid No Growth After 72 Hours
Gram Stain - Final
08/20/24 13:30 Wound Culture - Final
Abdomen Proteus mirabilis
Enterococcus faecium - VRE
Yeast
Gram Stain - Final
08/20/24 13:30 Anaerobic Culture - Final
Abdomen
08/10/24 04:08 Wound Culture - Final
Abdomen Gram Stain - Final
Imaging:
08/22/24 CT a/p: Superior left upper abdominal abnormal fluid collection again seen, superior to the spleen, without overall significant change in size in appearance in comparison to most recent prior CT, as detailed above. Interval removal of
approximate midline anterior abdominal abscess catheter drainage with small volume residual fluid and air bubbles which could represent very small residual abscess. NEW LARGE ELONGATED CRESCENTIC AREA OF PREDOMINANTLY SIMPLE FLUID DENSITY WITH SOME
BUBBLES OF AIR extending from the left lateral abdomen into the soft tissues of the left lateral true pelvis amongst several loops of small bowel with thickened de la rosa, without definitive oral contrast within. This could represent a new infected
fluid collection.
[2024-08-27 22:22] LABS: Glucose - Point of Care 142 mg/dl (70-99)
[2024-08-27 23:08] VITALS: BP 159/74
[2024-08-28] MEDS: TYLENOL 1000 MG PO ×4 (00:48→17:15)
[2024-08-28] MEDS: D5/0.9% SODIUM CHLORIDE 1000 IV ×2 (04:22→22:14)
[2024-08-28 05:33] VITALS: BMI 29.7
[2024-08-28] MEDS: FLAGYL 500 MG PO ×3 (05:55→21:42)
[2024-08-28] MEDS: ULTRAM 50 MG PO ×2 (06:11→12:55)
[2024-08-28 07:14] LABS: Hematocrit 31.7 % (37.0-47.0); Hemoglobin 10.1 g/dL (12.0-16.0); Mean Corp Hgb Conc. 31.9 g/dL (33.0-37.0); Mean Corpuscular Hgb 27.4 pg (27.0-31.0); Mean Corpuscular Volume 85.9 fL (81.0-99.0); Mean Platelet Volume 10.2 fL (7.4-10.4); Platelet Count 337 10^3/uL (130-400); Red Blood Cell Count 3.69 10^6/uL (4.20-5.40); Red Cell Dist. Width 15.9 % (11.5-14.5); White Blood Cell Count 10.8 10^3/uL (4.8-10.8)
[2024-08-28 07:35] LABS: Blood Urea Nitrogen 5 mg/dl (7-17); Calcium 7.8 mg/dl (8.4-10.2); Carbon Dioxide 22 mmol/L (22-30); Chloride 106 mmol/L (98-107); Estimated Creatinine Clearance 109 ml/min; Glucose 152 mg/dl (70-99); Potassium 3.6 mmol/L (3.5-5.1); Sodium 138 mmol/L (135-145); eGFR > 60.00
--- NOTE | 2024-08-28 08:14 | W.PN.CRS1 ---
Today's Communication / Plan
-
as below
Assessment/Plan
-
POD 8 ex lap, SBR x 2, takedown of enterocutaneous fistula
AFVSS
C10.8 From 9.9, Hb 10.1 from 9.8, no BMP today
� Will advance to regular diet; will continue IVF at 50 for today
-Strict I's and O's
� Continue pain control
�Appreciate ID; on micafungin, ceftriaxone and daptomycin
� Continue DVT PPx with Lovenox
�OOB/IS, appreciate PT
� Appreciate hospitalist
Subjective Data
Procedure
08/21- Exploratory laparotomy, Partial small bowel resection x2, Takedown of enterocutaneous fistula.
Subjective Data
Date of Service: August 28, 2024
No overnight events. Nausea and dizziness improved after starting IVF.
Pain overall controlled.
Denies vomiting. Tolerating clears.
+ostomy function +voiding
Objective Data
-
Vital Signs
Temp Pulse Resp BP Pulse Ox
98.1 F 63 18 159/74 97
08/27/24 23:08 08/27/24 23:08 08/27/24 23:08 08/27/24 23:08 08/28/24 02:59
Intake & Output
08/27/24 08/28/24 08/29/24
06:59 06:59 06:59
Intake Total 2009 1840 / 1840
Output Total 275 / 275 375 / 375
Balance 1735 / 1735 1465 / 1465
Intake:
Oral fluids 810 / 810 640 / 640
IV fluids (Total) 1000 / 1000 1200 / 1200
IV piggybacks 200 / 200
Output:
Liquid stool amount 275 / 275 375 / 375
Colostomy 275 / 275 375 / 375
Other:
Number of approximated SMALL 1
amounts of urine
Number of approximated MODERATE 1 2
amounts of urine
Number of approximated LARGE 2
amounts of urine
How many times incontinent 2 1
SATURATED amount urine
Number of unmeasured liquid
stools
Colostomy 1
Lab Results
08/28/24 06:57
08/28/24 06:57
Physical Exam
-
General: No Acute Distress and AOx3
HEENT: Grossly Normal
Abdomen: Soft, Non Distended, Tender (Appropriately tender), No Guarding, No Rebound and Other (Ostomy pink and productive of dark stool)
Skin: Warm and Dry
Wound: No Signs of Infection, No Skin Erythema and Other (Remainder of Telfa vincent removed, some strikethrough noted on the gauze which was replaced; packing to the lower open portion)
[2024-08-28] MEDS: D5/0.9% SODIUM CHLORIDE IV ×2 (08:21→08:42)
[2024-08-28 08:35] VITALS: BP 160/76
[2024-08-28] MEDS: NORVASC 5 MG PO (08:44)
[2024-08-28] MEDS: FEOSOL 325 MG PO (08:44)
[2024-08-28] MEDS: LOPRESSOR 100 MG PO ×2 (08:44→20:03)
[2024-08-28] MEDS: LOW STRENGTH ASPIRIN 81 MG PO (08:44)
[2024-08-28] MEDS: COZAAR 25 MG PO ×2 (08:45→20:03)
[2024-08-28] MEDS: ATIVAN PO ×2 (08:45→20:03)
[2024-08-28] MEDS: CRESTOR 40 MG PO (08:45)
[2024-08-28] MEDS: NEURONTIN 100 MG PO ×3 (08:45→21:42)
[2024-08-28] MEDS: SANTYL OINTMENT 1 APPLIC TOPICAL ×2 (08:46→20:03)
[2024-08-28] MEDS: NIZORAL 2% CREAM TOPICAL (08:46)
[2024-08-28 08:57] LABS: Glucose - Point of Care 145 mg/dl (70-99)
[2024-08-28] MEDS: NOVOLOG FLEXPEN-LOW RESISTANCE SC (09:11)
[2024-08-28] MEDS: ROCEPHIN 2000 MG IV (11:34)
[2024-08-28] MEDS: STERILE WATER FOR INJECTION 20 ML IV (11:35)
[2024-08-28] MEDS: CUBICIN 16.8 MG IV (12:12)
[2024-08-28] MEDS: MYCAMINE 105 MG IV (12:16)
--- NOTE | 2024-08-28 12:31 | W.PN.ID1 ---
Date of Service
Date of Service: August 28, 2024
Today's Communication
Continue antibiotics.
Assessment / Plan
Anterior right-midline abdominal collection/abscess
- s/p drain placement (06/10/24) and recent upsizing of drain (07/27/24)
- Abscess cultures 07/17: staph epi, strep species x 2 s/p Ertapenem (05/31 to 07/29)
- 08/20/24 s/p washout, SBR x 2 OR cx: Proteus , VRE, yeast
- 08/22/24 CT: new large fluid with bubbles from left lateral abd into soft tissue of pelvis
- 08/22/24 s/p IR aspiration of left abd fluid (no drain placed). Cx: No growth
Anterior midline lower abdominal incision drainage
- enteric fistula communication with underlying abscess
- cx 'few mixed skin negrito'. GNR's and GPC's seen on microscopy.
- S/P enteric fistula repair 08/20/24
LUQ intra-abdominal abscess
- hx post-op LUQ infected hematoma s/p perc drain, Cx Klebsiella pneumoniae, ESBL-Ecoli s/p Ertapenem (05/31 to 07/29)
-LUQ drain removed 07/27/24
- 08/[address] - stable size fluid collection
Hx Diverticulitis with diverticular perforation
- s/p diverting colostomy (05/22/2024).
- Intra-op splenic capsular tear with subsequent hematoma development
Recommendation:
Fever; improved
Continue daptomycin 500mg IV q24h (d#6). Monitor CK while on daptomycin.
Holding statin while on daptomycin.
Continue Micafungin (d#6)
Continue ceftriaxone and metronidazole. (d#6)
Follow temps, wbc.
Follow clinically.
����������������������������������������������������������
Chief Complaint
-: Other (Abd abscesses)
Subjective / Review of Systems
Review of Systems: No Fever, No Chills and Abdominal Pain (slight)
Vital Signs / Physical Exam
Vital Signs
Vital Signs
Temp Pulse Resp BP Pulse Ox
98.4 F 78 16 160/76 98
08/28/24 08:35 08/28/24 08:45 08/28/24 08:35 08/28/24 08:45 08/28/24 09:40
Physical Exam
Constitutional: No Acute Distress, Comfortable and Non-toxic
Eyes: No Conjunctival Hemorrhage and Sclera Anicteric
Cardiovascular: Regular Rate and S1/S2
Pulmonary: Clear (anteriorly)
Gastrointestinal: Soft, Tender, Normal Bowel Sounds and Other (Midline dressing intact.)
Extremities: Edema (trace)
Neurological: AO x 3
Psychological: Calm
Objective Data
Lab Data
Lab Results
08/28/24 06:57
08/28/24 06:57
PT 14.3 Sec (11.4-14.6) 08/20/24 08:08
INR 1.08 08/20/24 08:08
APTT 35.0 Sec (23.4-35.0) 08/20/24 08:08
Estimated Creat Clear 109 ml/min 08/28/24 06:57
Total Bilirubin 0.7 mg/dl (0.2-1.3) 08/24/24 07:52
AST 19 U/L (14-36) 08/24/24 07:52
ALT 11 U/L (0-35) 08/24/24 07:52
Alkaline Phosphatase 84 U/L (38-126) 08/24/24 07:52
Most recent labs reviewed.
Micro Results:
08/22/24 10:40 Blood Culture - Final
Blood/Venous No Growth - Final Report
08/22/24 09:43 Blood Culture - Final
Blood/Venous No Growth - Final Report
08/22/24 16:20 Body Fluid Culture - Final
Fluid No Growth After 72 Hours
Gram Stain - Final
08/20/24 13:30 Wound Culture - Final
Abdomen Proteus mirabilis
Enterococcus faecium - VRE
Yeast
Gram Stain - Final
08/20/24 13:30 Anaerobic Culture - Final
Abdomen
08/10/24 04:08 Wound Culture - Final
Abdomen Gram Stain - Final
Imaging:
08/22/24 CT a/p: Superior left upper abdominal abnormal fluid collection again seen, superior to the spleen, without overall significant change in size in appearance in comparison to most recent prior CT, as detailed above. Interval removal of
approximate midline anterior abdominal abscess catheter drainage with small volume residual fluid and air bubbles which could represent very small residual abscess. NEW LARGE ELONGATED CRESCENTIC AREA OF PREDOMINANTLY SIMPLE FLUID DENSITY WITH SOME
BUBBLES OF AIR extending from the left lateral abdomen into the soft tissues of the left lateral true pelvis amongst several loops of small bowel with thickened de la rosa, without definitive oral contrast within. This could represent a new infected
fluid collection.
Care Review
Plan reviewed with: Nurse
[2024-08-28 12:54] LABS: Glucose - Point of Care 221 mg/dl (70-99)
[2024-08-28] MEDS: NOVOLOG FLEXPEN-LOW RESISTANCE 2 UNITS SC (12:56)
--- NOTE | 2024-08-28 13:12 | W.PN.HOSP.TC ---
Addendum entered and electronically signed by Rene Church MD 08/28/24 13:52:
Assessment and Plan
Severe sepsis secondary to intra-abdominal abscess
-S/p exploratory laparotomy with partial small bowel resection x 2 enteric cutaneous fistula takedown
-Abscess drain sent for culture which demonstrated Proteus VRE yeast
-Now on Rocephin micafungin daptomycin and metronidazole
-ID following and follow CK hold statin while on daptomycin
-Advance diet as tolerated
-If not able to tolerate diet may possibly require TPN
-Provide antiemetics as needed for nausea
-Surgery following
Postop ileus
-Resolved
Anemia acute on chronic, normocytic, likely related to perioperative bleeding
-S/p 2 units PRBC
Perforated sigmoid diverticulitis
-S/p Barbour's procedure bowel resection x 2 colostomy
-Continue ostomy care
-Outpatient colorectal surgery follow
Type 2 diabetes
-A1c 6 point
-Hold Farxiga
-Continue sliding
-Goal blood glucose 1 40-1 80
-When able to tolerate diet carb
Hypokalemia resolved
Original Note:
Today's Communication/Plan
-
Advance diet to regular diet.
Obtain CPK levels in the a.m. tomorrow.
Assessment / Plan
Assessment / Plan
Assessment -58-year-old female with PMHx complicated for type II DM, chronic normocytic anemia, coarctation of aorta s/p stenting, stage III sacral decubitus ulcer, endometrial cancer, sigmoid diverticulitis with multiple bowel resections and recent
enterocutaneous fistula comes to hospital for sepsis due to intra-abdominal abscess with postop enterocutaneous fistula takedown procedure complicated by postop ileus.
Plan-
Sepsis secondary to intra-abdominal abscess-multiple
S/p exploratory laparotomy, partial small bowel resection x 2, enterocutaneous fistula takedown by Dr. Farnsworth on 08/20.
S/p colostomy in March, colostomy reversal not performed due to sacral decubitus ulcer.
Fevers-08/14 8 AM, blood cultures negative. Leukocytosis resolved.
Repeat CT abdomen and pelvis-08/22-left upper abdominal fluid collection, no change compared to prior CT.
S/p aspiration of left abdominal fluid collection by IR on 08/22-45 cc serosanguineous fluid obtained,
IR drain cultures-72 hours-negative.
ID on board, continue antimicrobials ceftriaxone, daptomycin, micafungin, metronidazole per ID.
Appreciate ID inputs.
Postop ileus-
Resolved.
Off of NG tube, tolerating full liquids well, colorectal surgery advance diet to regular today.
Patient choked on her regular diet-eggs in the a.m. today.
Refuses solid diets, speech therapy consulted for oral dysphagia.
Speech therapy evaluation had no concerns for dysphagia.
Speech recommended bland solids and small amounts at a time until patient is able to tolerate regular textures and get over her anxiety.
Hypokalemia -
Resolved.
Repleted potassium in the am on 08/27/2024
Anemia-
Acute on chronic, normocytic
S/p 2 units of PRBC transfusion on 08/23.
Last dose of Lovenox on 08/18.
Hemoglobin currently trending down, stable at 10.1.
Perforated sigmoid diverticulitis-
S/p Caridad procedure, bowel resection x 2, colostomy formation, iatrogenic splenic capsular repair.
Continue ostomy care.
Colorectal surgery in follow-up, appreciate inputs.
Type 2 diabetes mellitus-
HbA1c at 6.6.
Hold Farxiga, continue SSI.
Currently blood sugars well-controlled.
Patient is advancing to regular diet, reassess her blood sugars in the a.m. tomorrow.
Essential hypertension-
Blood pressure has been labile during this hospital admission
Continue, metoprolol, amlodipine, losartan with holding parameters.
Hyperkalemia-
Resolved, spironolactone discontinued.
Hyperlipidemia-hold statin while on daptomycin.
Left upper quadrant perisplenic hematoma-
IR drain removed on 07/30/2024.
Left upper quadrant infected perisplenic hematoma
-Drain removed 07/30/2024
Essential Hypertension -blood pressure somewhat labile. Continue metoprolol, amlodipine. Resume losartan.
Hyperkalemia -spironolactone discontinued.
Stage III sacral decubitus wound-
prior to admission, continue local wound care.
Frequent position changes.
DVT prophylaxis-SCD.
CODE STATUS full code.
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
History of aortic coarctation
-s/p stent 20 years ago
Deconditioning
-Chronically ill complicated recent hospitalizations
-Uses walker at home
-PT/OT as tolerated
Endometrial cancer -s/p hysterectomy.
History of breast cancer
-S/p mastectomy and chemotherapy
Stage III sacral decubital wound -POA. Continue local wound care, offloading.
Obesity due to excess calories
Dispo -SNF recommended by PT.
Anticipated Discharge: 24 - 48 hours
Subjective/Interval History
-
Date of Service: August 28, 2024
Patient reports to be feeling better today except for her hunger pain. She is willing to try solid foods in the noon today.
Objective Data
-
Labs:
Laboratory Results
08/28/24
06:57
WBC 10.8
Hgb 10.1 L
Hct 31.7 L
Plt Count 337
Sodium 138
Potassium 3.6
Chloride 106
Carbon Dioxide 22
BUN 5 L
Creatinine 0.4 L
Glucose 152 H
Calcium 7.8 L
Vital Signs:
Vital Signs
Temp Pulse Resp BP Pulse Ox
98.4 F 78 16 160/76 98
08/28/24 08:35 08/28/24 08:45 08/28/24 08:35 08/28/24 08:45 08/28/24 09:40
I&O
08/27/24 08/28/24 08/29/24
06:59 06:59 06:59
Intake Total 2009 1840 / 1840
Output Total 275 / 275 375 / 375
Balance 1735 / 1735 1465 / 1465
Review of Systems
-
History Source: Patient
Constitutional: Denies Fever, Chills or Weakness
EENT: Reports No Symptoms Reported
Respiratory: Denies Cough, Hemoptysis, Trouble Breathing or Wheezing
Cardiac: Denies Chest Pain, Diaphoresis, Palpitations, Syncope, PND or Orthopnea
Abdomen/GI: Reports Abdominal Pain; Denies Nausea, Vomiting, Diarrhea, Constipated, Bloody Stools or Black Stools
Musculoskeletal: Reports No Symptoms
Skin: Reports No Symptoms
Neuro: Reports No Symptoms
Endocrine: Reports No Symptoms
Hematologic / Lymphatic: Reports No Symptoms
Allergy / Immunology: Reports No Symptoms
Physical Exam
-
General: No Apparent Distress and Comfortable
HEENT: Moist Mucous Membranes and PERRLA
Respiratory: Clear to Auscultation; Negative Wheezes, Rales or Rhonchi
Cardiac: S1/S2 and Murmur (Systolic murmur, 2/6 in intensity, best heard in aortic area, nonradiating); Negative Rub or Gallop
GI: Soft, Nontender, Nondistended, Normal Bowel Sounds, Ostomy (Ostomy output-dark brown.) and Other (Incision site in the abdomen clean, wound dressing intact, no erythema, exudate, discharge.)
Musculoskeletal: No Clubbing, No Cyanosis and No Edema
Skin: Warm
Neuro: No Motor Deficits
Psych: Calm
[2024-08-28 15:05] VITALS: BP 155/73
--- NOTE | 2024-08-28 16:45 | CM ---
Patient chart reviewed
Continues on IV antibiotic, wound care
Current with [facility]
Declined PT/OT eval today
PLAN: home, with [facility] - refuses SNF
[2024-08-28 17:15] LABS: Glucose - Point of Care 170 mg/dl (70-99)
[2024-08-28] MEDS: NOVOLOG FLEXPEN-LOW RESISTANCE 1 UNITS SC (17:16)
[2024-08-28] MEDS: LOVENOX 40 MG SC (17:16)
[2024-08-28] MEDS: ULTRAM 100 MG PO (21:42)
[2024-08-28 22:29] LABS: Glucose - Point of Care 160 mg/dl (70-99)
[2024-08-28 23:18] VITALS: BP 169/85
[2024-08-29] MEDS: TYLENOL 1000 MG PO ×4 (00:25→17:07)
[2024-08-29 06:00] VITALS: BMI 29.2
[2024-08-29] MEDS: FLAGYL 500 MG PO ×3 (06:24→22:12)
[2024-08-29 06:39] LABS: Hematocrit 29.8 % (37.0-47.0); Hemoglobin 9.5 g/dL (12.0-16.0); Mean Corp Hgb Conc. 31.9 g/dL (33.0-37.0); Mean Corpuscular Volume 87.9 fL (81.0-99.0); Mean Platelet Volume 10.5 fL (7.4-10.4); Platelet Count 365 10^3/uL (130-400); Red Blood Cell Count 3.39 10^6/uL (4.20-5.40); Red Cell Dist. Width 15.7 % (11.5-14.5); White Blood Cell Count 10.9 10^3/uL (4.8-10.8)
[2024-08-29 07:06] LABS: Blood Urea Nitrogen 8 mg/dl (7-17); Calcium 7.8 mg/dl (8.4-10.2); Carbon Dioxide 23 mmol/L (22-30); Chloride 103 mmol/L (98-107); Creatine Phosphokinase 31 U/L (30-135); Estimated Creatinine Clearance 108 ml/min; Glucose 127 mg/dl (70-99); Potassium 3.3 mmol/L (3.5-5.1); Sodium 136 mmol/L (135-145); eGFR > 60.00
[2024-08-29 07:10] VITALS: BP 176/86
[2024-08-29 08:15] LABS: Glucose - Point of Care 150 mg/dl (70-99)
[2024-08-29 08:51] LABS: Magnesium 1.6 mg/dl (1.6-2.3)
[2024-08-29] MEDS: FEOSOL 325 MG PO (09:12)
[2024-08-29] MEDS: ATIVAN PO ×2 (09:12→22:11)
[2024-08-29] MEDS: NEURONTIN 100 MG PO ×3 (09:13→22:12)
[2024-08-29] MEDS: NORVASC 5 MG PO (09:13)
[2024-08-29] MEDS: LOW STRENGTH ASPIRIN 81 MG PO (09:13)
[2024-08-29] MEDS: LOPRESSOR 100 MG PO ×2 (09:13→22:13)
[2024-08-29] MEDS: COZAAR 25 MG PO ×2 (09:13→22:11)
[2024-08-29] MEDS: NOVOLOG FLEXPEN-LOW RESISTANCE 1 UNITS SC ×3 (09:14→17:07)
[2024-08-29] MEDS: KCL ELIXIR 40 MEQ PO (09:14)
[2024-08-29] MEDS: SANTYL OINTMENT 1 APPLIC TOPICAL ×2 (09:15→22:12)
[2024-08-29] MEDS: NIZORAL 2% CREAM TOPICAL (09:16)
--- NOTE | 2024-08-29 09:38 | W.PN.CRS1 ---
Today's Communication / Plan
-
continue diet
Assessment/Plan
-
POD 9 ex lap, SBR x 2, takedown of enterocutaneous fistula
AFVSS
WBC 10.9,, Hb 9.5
� Continue regular diet
- Strict I/O's
�Continue pain control
�Appreciate ID; on micafungin, ceftriaxone and daptomycin
�Continue DVT PPx with Lovenox
�OOB/IS, appreciate PT
� Appreciate hospitalist
-Anticipate discharge in the next few days
Subjective Data
Procedure
08/21- Exploratory laparotomy, Partial small bowel resection x2, Takedown of enterocutaneous fistula.
Subjective Data
Date of Service: August 29, 2024
Patient states she feels well today. She has been eating solid food, just few bites here and there. She has no nausea or vomiting. Her pain is minimal.
Objective Data
-
Vital Signs
Temp Pulse Resp BP Pulse Ox
98.3 F 80 16 176/86 95
08/29/24 07:10 08/29/24 09:13 08/29/24 07:10 08/29/24 09:13 08/29/24 07:10
Intake & Output
08/28/24 08/29/24 08/30/24
06:59 06:59 06:59
Intake Total 1840 / 1840 2160 / 2160
Output Total 375 / 375 350 / 350
Balance 1465 / 1465 2160 / 2160 -350 / -350
Intake:
Oral fluids 640 / 640 1440 / 1440
IV fluids (Total) 1200 / 1200 720 / 720
Output:
Liquid stool amount 375 / 375 350 / 350
Colostomy 375 / 375 350 / 350
Other:
Number of approximated MODERATE 2 1
amounts of urine
Number of approximated LARGE 2 3
amounts of urine
How many times incontinent 1 2
SATURATED amount urine
Lab Results
08/29/24 05:08
08/29/24 05:08
Physical Exam
-
General: No Acute Distress and AOx3
Abdomen: Soft, Non Distended and Non Tender
Wound: Dressing Changed and Other (lower portion of wound is opened, no erythema or pus noted, tissue with some granulation, merari still in place)
[2024-08-29] MEDS: ULTRAM 100 MG PO ×2 (10:13→17:22)
[2024-08-29] MEDS: ROCEPHIN 2000 MG IV (11:25)
[2024-08-29] MEDS: STERILE WATER FOR INJECTION 20 ML IV (11:25)
[2024-08-29] MEDS: MYCAMINE 105 MG IV (11:25)
[2024-08-29] MEDS: CUBICIN 16.8 MG IV (11:25)
[2024-08-29 11:41] LABS: Glucose - Point of Care 179 mg/dl (70-99)
[2024-08-29 12:00] VITALS: BP 185/83
--- NOTE | 2024-08-29 13:16 | W.PN.HOSP.TC ---
Today's Communication/Plan
-
Assessment / Plan
Assessment / Plan
NAD, resting comfortably in bed
Scleral anicteric
Moist mucous membranes
No JVD
CTA bilateral
Normal S1-S2 no murmurs
Soft nontender nondistended bowel sounds active
Colostomy cdi
No peripheral pitting edema
Moves extremities spontaneously
AAOx3
Assessment and Plan
Severe sepsis secondary to intra-abdominal abscess
-S/p exploratory laparotomy with partial small bowel resection x 2 enteric cutaneous fistula takedown
-Abscess drain sent for culture which demonstrated Proteus VRE yeast
-Now on Rocephin micafungin daptomycin and metronidazole
-ID following and follow CK hold statin while on daptomycin
-Provide antiemetics as needed for nausea
-Surgery following
Postop ileus
-Resolved
Anemia acute on chronic, normocytic, likely related to perioperative bleeding
-S/p 2 units PRBC
Perforated sigmoid diverticulitis
-S/p Barbour's procedure bowel resection x 2 colostomy
-Continue ostomy care
-Outpatient colorectal surgery follow
Type 2 diabetes
-A1c 6 point
-Hold Farxiga
-Continue sliding
-Goal blood glucose 1 40-1 80
-When able to tolerate diet carb
Hypokalemia
-Replete prn
Begin dc planning, follow surgical recs and ID recs. Once cleared by surgery then can plan to DC home.
Anticipated Discharge: > 48 hours
Subjective/Interval History
-
Date of Service: August 29, 2024
seen and examined. no new complaints. no acute overnight events
tolerating po diet well
Objective Data
-
Labs:
Laboratory Results
08/29/24
05:08
WBC 10.9 H
Hgb 9.5 L
Hct 29.8 L
Plt Count 365
Sodium 136
Potassium 3.3 L
Chloride 103
Carbon Dioxide 23
BUN 8
Creatinine 0.4 L
Glucose 127 H
Calcium 7.8 L
Vital Signs:
Vital Signs
Temp Pulse Resp BP Pulse Ox
98.3 F 80 16 176/86 95
08/29/24 07:10 08/29/24 09:13 08/29/24 07:10 08/29/24 09:13 08/29/24 07:10
I&O
08/28/24 08/29/24 08/30/24
06:59 06:59 06:59
Intake Total 1840 / 1840 2160 / 2160
Output Total 375 / 375 350 / 350
Balance 1465 / 1465 2160 / 2160 -350 / -350
--- NOTE | 2024-08-29 13:23 | W.PN.ID1 ---
Date of Service
Date of Service: August 29, 2024
Today's Communication
Continue antibiotics. See below�
Assessment / Plan
Anterior right-midline abdominal collection/abscess
- s/p drain placement (06/10/24) and recent upsizing of drain (07/27/24)
- Abscess cultures 07/17: staph epi, strep species x 2 s/p Ertapenem (05/31 to 07/29)
- 08/20/24 s/p washout, SBR x 2 OR cx: Proteus , VRE, yeast
- 08/22/24 CT: new large fluid with bubbles from left lateral abd into soft tissue of pelvis
- 08/22/24 s/p IR aspiration of left abd fluid (no drain placed). Cx: No growth
Anterior midline lower abdominal incision drainage
- enteric fistula communication with underlying abscess
- cx 'few mixed skin negrito'. GNR's and GPC's seen on microscopy.
- S/P enteric fistula repair 08/20/24
LUQ intra-abdominal abscess
- hx post-op LUQ infected hematoma s/p perc drain, Cx Klebsiella pneumoniae, ESBL-Ecoli s/p Ertapenem (05/31 to 07/29)
-LUQ drain removed 07/27/24
- 08/[address] - stable size fluid collection
Hx Diverticulitis with diverticular perforation
- s/p diverting colostomy (05/22/2024).
- Intra-op splenic capsular tear with subsequent hematoma development
Recommendation:
Fever; improved
Continue daptomycin 500mg IV q24h (d#7). Monitor CK while on daptomycin.
Holding statin while on daptomycin.
Continue Micafungin (d#7)
Continue ceftriaxone and metronidazole. (d#7)
Would complete a 10 to 14-day course of therapy in total.
Follow temps, wbc.
Follow clinically.
����������������������������������������������������������
Chief Complaint
-: Other (Abd abscesses)
Subjective / Review of Systems
Review of Systems: No Fever and No Chills
Vital Signs / Physical Exam
Vital Signs
Vital Signs
Temp Pulse Resp BP Pulse Ox
98.3 F 80 16 176/86 95
08/29/24 07:10 08/29/24 09:13 08/29/24 07:10 08/29/24 09:13 08/29/24 07:10
Physical Exam
Constitutional: No Acute Distress, Comfortable and Non-toxic
Head: Normocephalic
Eyes: No Conjunctival Hemorrhage and Sclera Anicteric
Cardiovascular: Regular Rate and S1/S2
Pulmonary: Clear (anteriorly)
Gastrointestinal: Soft, Tender, Normal Bowel Sounds and Other (Midline dressing intact.)
Extremities: Edema (trace)
Neurological: AO x 3
Psychological: Calm
Objective Data
Lab Data
Lab Results
08/29/24 05:08
08/29/24 05:08
PT 14.3 Sec (11.4-14.6) 08/20/24 08:08
INR 1.08 08/20/24 08:08
APTT 35.0 Sec (23.4-35.0) 08/20/24 08:08
Estimated Creat Clear 108 ml/min 08/29/24 05:08
Total Bilirubin 0.7 mg/dl (0.2-1.3) 08/24/24 07:52
AST 19 U/L (14-36) 08/24/24 07:52
ALT 11 U/L (0-35) 08/24/24 07:52
Alkaline Phosphatase 84 U/L (38-126) 08/24/24 07:52
Most recent labs reviewed.
Micro Results:
08/22/24 10:40 Blood Culture - Final
Blood/Venous No Growth - Final Report
08/22/24 09:43 Blood Culture - Final
Blood/Venous No Growth - Final Report
08/22/24 16:20 Body Fluid Culture - Final
Fluid No Growth After 72 Hours
Gram Stain - Final
08/20/24 13:30 Wound Culture - Final
Abdomen Proteus mirabilis
Enterococcus faecium - VRE
Yeast
Gram Stain - Final
08/20/24 13:30 Anaerobic Culture - Final
Abdomen
08/10/24 04:08 Wound Culture - Final
Abdomen Gram Stain - Final
Imaging:
08/22/24 CT a/p: Superior left upper abdominal abnormal fluid collection again seen, superior to the spleen, without overall significant change in size in appearance in comparison to most recent prior CT, as detailed above. Interval removal of
approximate midline anterior abdominal abscess catheter drainage with small volume residual fluid and air bubbles which could represent very small residual abscess. NEW LARGE ELONGATED CRESCENTIC AREA OF PREDOMINANTLY SIMPLE FLUID DENSITY WITH SOME
BUBBLES OF AIR extending from the left lateral abdomen into the soft tissues of the left lateral true pelvis amongst several loops of small bowel with thickened de la rosa, without definitive oral contrast within. This could represent a new infected
fluid collection.
[2024-08-29] MEDS: MAGNESIUM SULFATE 100 IV (13:41)
--- NOTE | 2024-08-29 13:58 | W.PN.HOSP.TC ---
Addendum entered and electronically signed by Rene Church MD 08/30/24 13:06:
nonbillable note.
-please see my note that I wrote earlier on in the day
Original Note:
Today's Communication/Plan
-
Continue IV fluids
Advance diet as tolerated.
Assessment / Plan
Assessment / Plan
Assessment -58-year-old female with PMHx complicated for type II DM, chronic normocytic anemia, coarctation of aorta s/p stenting, stage III sacral decubitus ulcer, endometrial cancer, sigmoid diverticulitis with multiple bowel resections and recent
enterocutaneous fistula comes to hospital for sepsis due to intra-abdominal abscess with postop enterocutaneous fistula takedown procedure complicated by postop ileus.
Plan-
Sepsis secondary to intra-abdominal abscess-multiple
S/p exploratory laparotomy, partial small bowel resection x 2, enterocutaneous fistula takedown by Dr. Farnsworth on 08/20.
S/p colostomy in March, colostomy reversal not performed due to sacral decubitus ulcer.
Fevers-08/14 8 AM, blood cultures negative. Leukocytosis resolved.
Repeat CT abdomen and pelvis-08/22-left upper abdominal fluid collection, no change compared to prior CT.
S/p aspiration of left abdominal fluid collection by IR on 08/22-45 cc serosanguineous fluid obtained,
IR drain cultures-72 hours-negative.
ID on board, continue antimicrobials ceftriaxone, daptomycin, micafungin, metronidazole per ID.
Appreciate ID inputs.
Postop ileus-
Resolved.
Off of NG tube, tolerating full liquids well, colorectal surgery advance diet to regular today.
Patient choked on her regular diet-eggs in the a.m. today.
Refuses solid diets, speech therapy consulted for oral dysphagia.
Speech therapy evaluation had no concerns for dysphagia.
Speech recommended bland solids and small amounts at a time until patient is able to tolerate regular textures and get over her anxiety.
Hypokalemia -
Resolved.
Repleted potassium in the am on 08/27/2024
Magnesium-supplemented today. Low normal at 1.6
Anemia-
Acute on chronic, normocytic
S/p 2 units of PRBC transfusion on 08/23.
Last dose of Lovenox on 08/18.
Hemoglobin currently trending down, stable at 10.1.
Perforated sigmoid diverticulitis-
S/p Caridad procedure, bowel resection x 2, colostomy formation, iatrogenic splenic capsular repair.
Continue ostomy care.
Colorectal surgery in follow-up, appreciate inputs.
Type 2 diabetes mellitus-
HbA1c at 6.6.
Hold Farxiga, continue SSI.
Currently blood sugars well-controlled.
Patient is advancing to regular diet, reassess her blood sugars in the a.m. tomorrow.
Essential hypertension-
Blood pressure has been labile during this hospital admission
Continue, metoprolol, amlodipine, losartan with holding parameters.
Hyperkalemia-
Resolved, spironolactone discontinued.
Hyperlipidemia-hold statin while on daptomycin.
Left upper quadrant perisplenic hematoma-
IR drain removed on 07/30/2024.
Left upper quadrant infected perisplenic hematoma
-Drain removed 07/30/2024
Essential Hypertension -blood pressure somewhat labile. Continue metoprolol, amlodipine. Resume losartan.
Hyperkalemia -spironolactone discontinued.
Stage III sacral decubitus wound-
prior to admission, continue local wound care.
Frequent position changes.
DVT prophylaxis-SCD.
CODE STATUS full code.
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
History of aortic coarctation
-s/p stent 20 years ago
Deconditioning
-Chronically ill complicated recent hospitalizations
-Uses walker at home
-PT/OT as tolerated
Endometrial cancer -s/p hysterectomy.
History of breast cancer
-S/p mastectomy and chemotherapy
Stage III sacral decubital wound -POA. Continue local wound care, offloading.
Obesity due to excess calories
Dispo -SNF recommended by PT. patient and family refused SNF. Will arrange for home visiting nurse, PT and OT.
Anticipated Discharge: > 48 hours
Subjective/Interval History
-
Date of Service: August 29, 2024
Patient is tolerating solid foods well. Patient feels comfortable on IV fluids
Objective Data
-
Labs:
Laboratory Results
08/29/24
05:08
WBC 10.9 H
Hgb 9.5 L
Hct 29.8 L
Plt Count 365
Sodium 136
Potassium 3.3 L
Chloride 103
Carbon Dioxide 23
BUN 8
Creatinine 0.4 L
Glucose 127 H
Calcium 7.8 L
Vital Signs:
Vital Signs
Temp Pulse Resp BP Pulse Ox
98.3 F 80 16 176/86 95
08/29/24 07:10 08/29/24 09:13 08/29/24 07:10 08/29/24 09:13 08/29/24 07:10
I&O
08/28/24 08/29/24 08/30/24
06:59 06:59 06:59
Intake Total 1840 / 1840 2160 / 2160
Output Total 375 / 375 350 / 350
Balance 1465 / 1465 2160 / 2160 -350 / -350
Review of Systems
-
History Source: Patient
Constitutional: Reports Fatigue; Denies Fever, No Appetite or Chills
EENT: Reports No Symptoms Reported
Respiratory: Reports No Symptoms
Cardiac: Reports No Symptoms
Abdomen/GI: Reports Abdominal Pain and Nausea; Denies Vomiting, Diarrhea, Constipated, Bloody Stools or Black Stools
Genitourinary: Reports No Symptoms
Musculoskeletal: Reports No Symptoms
Neuro: Reports No Symptoms
Endocrine: Reports No Symptoms
Hematologic / Lymphatic: Reports No Symptoms
Allergy / Immunology: Reports No Symptoms
Physical Exam
-
General: Comfortable
HEENT: Moist Mucous Membranes
Respiratory: Clear to Auscultation; Negative Wheezes, Rales, Rhonchi or Crackles
Cardiac: Regular Rhythm, S1/S2 and Murmur (Systolic murmur 3/6, best heard in aortic region); Negative JVD or Gallop
GI: Soft, Nontender, Nondistended, Normal Bowel Sounds, Ostomy (Output dark brown) and Other (Incision sites, cutaneous fistula wound dressing-clean no discharge, erythema, edema.)
Musculoskeletal: No Clubbing, No Cyanosis and No Edema
Skin: Warm
Neuro: Awake, Alert and No Motor Deficits
Psych: Calm
Data Reviewed
-
Labs: Labs Reviewed by me and Discussed with Physician
--- NOTE | 2024-08-29 14:00 | PTCARENOTE ---
MD and resident made aware of patient's BP throughout AM; automatic BP 176/86 this AM, repeat taken at 1200 by this RN 185/83. Patient states no complaints other than occasional lightheadedness/dizziness at times with position changes and
mild/moderate abd pain requiring PRN tramadol - see MAR. PRN hydralazine ordered per resident. IVF infusing at 60 ml/hr.
--- NOTE | 2024-08-29 14:13 | VNURNOTE ---
PENDING SALE TO [facility] liaison met with patient and son Anshul at bedside. Patient refusing SNF. Patient is current with [facility]. Reviewed our services again: intermittent, skilled. Offered to set patient up with a hospital bed for home. Explained would benefit with
turning, posterior wound healing. Patient is on versa care in hospital. Patient refusing hospital bed. She has a lift recliner at home. Resumption referral accepted in [facility].
--- NOTE | 2024-08-29 14:15 | WOUNDNOTE ---
WOC RN note: Patient's sacral ulcer slightly smaller than last week. Skin less red around ulcer. Ulcer stage 3 appearing vs unstageable with yellow fibrin cover. Sacral dressing changed. Current wound care appropriate. Skin on heels intact. Heels
off bed with pillow. Patient turns with minimal assistance. Instructed patient importance of off loading sacrum and heels and to include protein in her diet. Ostomy supplies left in room. Nursing can assist patient with colostomy pouch changes.
Patient and son were not interested in practising appliance change today. VN planned when discharged. Son aware to make appointment at [facility] for sacral ulcer follow up. Will follow as needed.
[2024-08-29] MEDS: D5/0.9% SODIUM CHLORIDE 1000 IV (15:23)
[2024-08-29 15:30] VITALS: BP 157/78
[2024-08-29 17:00] LABS: Glucose - Point of Care 151 mg/dl (70-99)
[2024-08-29] MEDS: LOVENOX 40 MG SC (17:07)
[2024-08-29] MEDS: KCL 40 MEQ PO (17:22)
[2024-08-29 21:54] LABS: Glucose - Point of Care 157 mg/dl (70-99)
[2024-08-29 22:45] VITALS: BP 165/81
[2024-08-29] MEDS: APRESOLINE 5 MG IV (23:19)
[2024-08-29 23:34] VITALS: BP 147/90
[2024-08-30 05:02] LABS: Hematocrit 28.3 % (37.0-47.0); Hemoglobin 8.9 g/dL (12.0-16.0); Mean Corp Hgb Conc. 31.4 g/dL (33.0-37.0); Mean Corpuscular Hgb 27.6 pg (27.0-31.0); Mean Corpuscular Volume 87.6 fL (81.0-99.0); Platelet Count 412 10^3/uL (130-400); Red Blood Cell Count 3.23 10^6/uL (4.20-5.40); Red Cell Dist. Width 15.9 % (11.5-14.5); White Blood Cell Count 11.5 10^3/uL (4.8-10.8)
[2024-08-30] MEDS: FLAGYL 500 MG PO ×3 (05:09→21:28)
[2024-08-30 05:27] LABS: Blood Urea Nitrogen 7 mg/dl (7-17); Calcium 8.1 mg/dl (8.4-10.2); Carbon Dioxide 26 mmol/L (22-30); Chloride 103 mmol/L (98-107); Estimated Creatinine Clearance 108 ml/min; Glucose 130 mg/dl (70-99); Potassium 3.9 mmol/L (3.5-5.1); Sodium 139 mmol/L (135-145); eGFR > 60.00
[2024-08-30] MEDS: TYLENOL 1000 MG PO ×5 (06:15→23:35)
[2024-08-30 07:00] VITALS: BP 165/84
[2024-08-30 07:14] LABS: Glucose - Point of Care 142 mg/dl (70-99)
[2024-08-30] MEDS: NOVOLOG FLEXPEN-LOW RESISTANCE SC (07:15)
--- NOTE | 2024-08-30 08:15 | W.PN.CRS1 ---
Today's Communication / Plan
-
As below
Assessment/Plan
-
POD 10 ex lap, SBR x 2, takedown of enterocutaneous fistula
AFVSS
WBC 11.5 from 10.9, Hb 8.9 from 9.5, creatinine 0.4
�Will reach out to hospitalist regarding dizziness and if further workup is warranted
� Continue reg diet
- Strict I's and O's
� Continue pain control
�Appreciate ID; on micafungin, ceftriaxone and daptomycin
� Continue DVT PPx with Lovenox
�OOB/IS, appreciate PT
� Appreciate hospitalist
Subjective Data
Procedure
08/21- Exploratory laparotomy, Partial small bowel resection x2, Takedown of enterocutaneous fistula.
Subjective Data
Date of Service: August 30, 2024
No overnight events. Still having moments of dizziness associated with nausea. Does not seem to be related to oral intake.
Pain controlled.
Denies vomiting. Tolerating diet.
+ Ostomy function +voiding
Objective Data
-
Vital Signs
Temp Pulse Resp BP Pulse Ox
97.4 F 97 16 147/90 96
08/29/24 22:45 08/29/24 23:34 08/29/24 22:45 08/29/24 23:34 08/29/24 22:45
Intake & Output
08/29/24 08/30/24 08/31/24
06:59 06:59 06:59
Intake Total 2160 / 2160 1440 / 1440
Output Total 600 / 600
Balance 2160 / 2160 840 / 840
Intake:
Oral fluids 1440 / 1440 720 / 720
IV fluids (Total) 720 / 720 720 / 720
Output:
Liquid stool amount 600 / 600
Colostomy 600 / 600
Other:
Number of approximated MODERATE 1 3
amounts of urine
Number of approximated LARGE 3 1
amounts of urine
How many times incontinent 2 1
SATURATED amount urine
Lab Results
08/30/24 04:49
08/30/24 04:49
Physical Exam
-
General: No Acute Distress and AOx3
HEENT: Grossly Normal
Abdomen: Soft, Non Distended, Tender (Appropriately tender near midline incision) and Other (Ostomy pink, flat, productive of stool)
Skin: Warm and Dry
Wound: No Signs of Infection and Dressing Changed (Midline incision with intermittent gaps, clean, no erythema or purulent drainage; inferior portion open and clean with packing)
[2024-08-30] MEDS: SANTYL OINTMENT 1 APPLIC TOPICAL ×2 (08:51→21:28)
[2024-08-30] MEDS: ATIVAN PO ×2 (08:51→21:29)
[2024-08-30] MEDS: FEOSOL 325 MG PO (08:51)
[2024-08-30] MEDS: NEURONTIN 100 MG PO ×3 (08:51→21:27)
[2024-08-30] MEDS: COZAAR 25 MG PO ×2 (08:51→21:28)
[2024-08-30] MEDS: LOW STRENGTH ASPIRIN 81 MG PO (08:52)
[2024-08-30] MEDS: NIZORAL 2% CREAM 1 APPLIC TOPICAL (08:52)
[2024-08-30] MEDS: LOPRESSOR 100 MG PO ×2 (08:52→21:28)
[2024-08-30] MEDS: NORVASC 5 MG PO (08:52)
[2024-08-30] MEDS: D5/0.9% SODIUM CHLORIDE 1000 IV (08:53)
[2024-08-30] MEDS: ULTRAM 100 MG PO (09:12)
[2024-08-30 09:21] LABS: % Basophils 0.5 % (0-2); % Eosinophils 4.4 % (0-6); % Immature Granulocytes 1.3 % (0-0.5); % Monocytes 5.7 % (1.7-9.3); % Neutrophils 74.1 % (42.2-75.2); Absolute Basophils 0.1 10^3/uL (0-0.2); Absolute Eosinophils 0.5 10^3/uL (0-0.7); Absolute Immature Granulocytes 0.2 10^3/uL (0-0.05); Absolute Lymphocytes 1.6 10^3/uL (1.2-3.4); Absolute Monocytes 0.6 10^3/uL (0.1-0.6); Absolute Neutrophils 8.3 10^3/uL (1.4-6.5); Nucleated Red Blood Cells % 0 %
[2024-08-30 11:34] VITALS: BP 174/86
[2024-08-30] MEDS: CUBICIN 16.8 MG IV (12:09)
[2024-08-30] MEDS: MYCAMINE 105 MG IV (12:09)
[2024-08-30] MEDS: ROCEPHIN 2000 MG IV (12:10)
[2024-08-30] MEDS: STERILE WATER FOR INJECTION 20 ML IV (12:10)
[2024-08-30] MEDS: PROTONIX 40 MG PO (12:11)
[2024-08-30] MEDS: CLARITIN 10 MG PO (12:11)
[2024-08-30 12:18] LABS: Glucose - Point of Care 182 mg/dl (70-99)
[2024-08-30 12:20] VITALS: BP 176/94
[2024-08-30] MEDS: OCEAN, SALINE MIST 1 SPRAYS NASAL (12:24)
[2024-08-30] MEDS: APRESOLINE 5 MG IV (12:25)
[2024-08-30] MEDS: NOVOLOG FLEXPEN-LOW RESISTANCE 1 UNITS SC ×2 (12:25→17:13)
--- NOTE | 2024-08-30 12:37 | W.PN.HOSP.TC ---
Addendum entered and electronically signed by Rene Church MD 08/30/24 13:14:
Assessment and Plan
Sinus pain
-DOES NOT describe dizziness to me. She states 'I will like my head is not attached to my body'
-I am not expereincing headaches nor dizziness
-Will add flonase and claritin
-did off to obtain CTBrain, but she refused this as she stated that she has been 'radiated enough'
Severe sepsis secondary to intra-abdominal abscess
-S/p exploratory laparotomy with partial small bowel resection x 2 enteric cutaneous fistula takedown
-Abscess drain sent for culture which demonstrated Proteus VRE yeast
-Now on Rocephin micafungin daptomycin and metronidazole
-ID following and follow CK hold statin while on daptomycin
-Provide antiemetics as needed for nausea
-Surgery following
Postop ileus
-Resolved
Anemia acute on chronic, normocytic, likely related to perioperative bleeding
-S/p 2 units PRBC
Perforated sigmoid diverticulitis
-S/p Barbour's procedure bowel resection x 2 colostomy
-Continue ostomy care
-Outpatient colorectal surgery follow
Type 2 diabetes
-A1c 6 point
-Hold Farxiga
-Continue sliding
-Goal blood glucose 1 40-1 80
-When able to tolerate diet carb
Hypokalemia
-Replete prn
Original Note:
Today's Communication/Plan
-
Current management per ID and surgery.
Replete electrolytes as needed.
Continue conversations with patient to encourage discontinuation of IV fluids.
Patient tolerating oral diet well.
Assessment / Plan
Assessment / Plan
Assessment -58-year-old female with PMHx complicated for type II DM, chronic normocytic anemia, coarctation of aorta s/p stenting, stage III sacral decubitus ulcer, endometrial cancer, sigmoid diverticulitis with multiple bowel resections and recent
enterocutaneous fistula comes to hospital for sepsis due to intra-abdominal abscess with postop enterocutaneous fistula takedown procedure complicated by postop ileus.
Plan-
Sepsis secondary to intra-abdominal abscess-multiple -resolved.
S/p exploratory laparotomy, partial small bowel resection x 2, enterocutaneous fistula takedown by Dr. Farnsworth on 08/20.
S/p colostomy in March, colostomy reversal not performed due to sacral decubitus ulcer.
Fevers-08/14 8 AM, blood cultures negative. Leukocytosis resolved.
Repeat CT abdomen and pelvis-08/22-left upper abdominal fluid collection, no change compared to prior CT.
S/p aspiration of left abdominal fluid collection by IR on 08/22-45 cc serosanguineous fluid obtained,
IR drain cultures-72 hours-negative.
ID on board, continue antimicrobials ceftriaxone, daptomycin, micafungin, metronidazole per ID.
Appreciate ID inputs.
Postop ileus-
Resolved.
Off of NG tube, tolerating full liquids well, colorectal surgery advance diet to regular today.
Patient choked on her regular diet-eggs in the a.m. today.
Refuses solid diets, speech therapy consulted for oral dysphagia.
Speech therapy evaluation had no concerns for dysphagia.
Speech recommended bland solids and small amounts at a time until patient is able to tolerate regular textures and get over her anxiety.
New onset headaches-
History of Tigre cistern magna and allergies
Started patient on Claritin and saline nasal spray.
Offered to obtain a head CT but patient refuse quoting that she had a head CT in January.
Will update the patient on her head CT results.
Hypokalemia -
Resolved.
Repleted potassium in the am on 08/27/2024
Magnesium-supplemented today. Low normal at 1.6
Anemia-
Acute on chronic, normocytic
S/p 2 units of PRBC transfusion on 08/23.
Last dose of Lovenox on 08/18.
Hemoglobin currently trending down, stable at 10.1.
Perforated sigmoid diverticulitis-
S/p Caridad procedure, bowel resection x 2, colostomy formation, iatrogenic splenic capsular repair.
Continue ostomy care.
Colorectal surgery in follow-up, appreciate inputs.
Type 2 diabetes mellitus-
HbA1c at 6.6.
Hold Farxiga, continue SSI.
Currently blood sugars well-controlled.
Patient is advancing to regular diet, reassess her blood sugars in the a.m. tomorrow.
Essential hypertension-
Blood pressure has been labile during this hospital admission
Continue, metoprolol, amlodipine, losartan with holding parameters.
Hyperkalemia-
Resolved, spironolactone discontinued.
Hyperlipidemia-hold statin while on daptomycin.
Left upper quadrant perisplenic hematoma-
IR drain removed on 07/30/2024.
Left upper quadrant infected perisplenic hematoma
-Drain removed 07/30/2024
Essential Hypertension -blood pressure somewhat labile. Continue metoprolol, amlodipine. Resume losartan.
Hyperkalemia -spironolactone discontinued.
Stage III sacral decubitus wound-
prior to admission, continue local wound care.
Frequent position changes.
DVT prophylaxis-SCD.
CODE STATUS full code.
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
History of aortic coarctation
-s/p stent 20 years ago
Deconditioning
-Chronically ill complicated recent hospitalizations
-Uses walker at home
-PT/OT as tolerated
Endometrial cancer -s/p hysterectomy.
History of breast cancer
-S/p mastectomy and chemotherapy
Stage III sacral decubital wound -POA. Continue local wound care, offloading.
Obesity due to excess calories
Dispo -SNF recommended by PT. patient and family refused SNF. Will arrange for home visiting nurse, PT and OT.
Anticipated Discharge: > 48 hours
Subjective/Interval History
-
Date of Service: August 30, 2024
Patient complains of feeling something weird about her head, feels that her head is not connected to the body, reports to have had many allergies and her nose is full full of goo, yucky stuff.
Objective Data
-
Labs:
Laboratory Results
08/30/24
04:49
WBC 11.5 H
Hgb 8.9 L
Hct 28.3 L
Plt Count 412 H
Sodium 139
Potassium 3.9
Chloride 103
Carbon Dioxide 26
BUN 7
Creatinine 0.4 L
Glucose 130 H
Calcium 8.1 L
Vital Signs:
Vital Signs
Temp Pulse Resp BP Pulse Ox
98.3 F 78 17 176/94 99
08/30/24 07:00 08/30/24 12:20 08/30/24 07:00 08/30/24 12:20 08/30/24 10:39
I&O
08/29/24 08/30/24 08/31/24
06:59 06:59 06:59
Intake Total 2160 / 2160 1440 / 1440
Output Total 600 / 600
Balance 2160 / 2160 840 / 840
Review of Systems
-
History Source: Patient
Constitutional: Denies Fever, Fatigue, Night Sweats, Chills or Weakness
EENT: Reports No Symptoms Reported
Respiratory: Denies Cough, Trouble Breathing or Wheezing
Cardiac: Denies Chest Pain, Diaphoresis, Palpitations, Syncope, PND or Orthopnea
Abdomen/GI: Denies Abdominal Pain, Nausea, Vomiting, Diarrhea, Constipated or Bloody Stools
Breast: Reports No Symptoms
Genitourinary: Reports No Symptoms
Musculoskeletal: Reports No Symptoms
Skin: Reports No Symptoms
Neuro: Reports Headache and Other (abnormal sensation in the head.)
Endocrine: Reports No Symptoms
Hematologic / Lymphatic: Reports No Symptoms
Allergy / Immunology: Reports No Symptoms
Physical Exam
-
General: No Apparent Distress and Comfortable
HEENT: Moist Mucous Membranes
Respiratory: Clear to Auscultation; Negative Wheezes, Rales or Rhonchi
Cardiac: Regular Rhythm, S1/S2 and Murmur (Systolic 3/6 best heard in the aortic area); Negative Rub, JVD or Gallop
GI: Soft, Nontender, Nondistended, Normal Bowel Sounds, Ostomy and Other (Incision sites - clean and intact.)
Musculoskeletal: No Clubbing, No Cyanosis and No Edema
Skin: Warm
Neuro: No Motor Deficits
Psych: Calm
Data Reviewed
-
CT Scan: Image personally visualized and interpreted, Report Reviewed by me and Discussed with Physician
Medical Tests (Nuc Med, Echo etc): Image personally visualized and interpreted, Report Reviewed by me and Discussed with Physician
Labs: Labs Reviewed by me and Discussed with Physician
Old Records: Reviewed
--- NOTE | 2024-08-30 13:48 | CM ---
Patient seen at bedside with son Anshul
Patient declines hospital bed.
Son states has a script for hosp bed from last hospitalization.
Wound care to sacrum
Current with [facility]
PT rec HH
PLAN: Home, [facility]
[2024-08-30 15:05] VITALS: BP 176/90
[2024-08-30 16:57] LABS: Glucose - Point of Care 157 mg/dl (70-99)
[2024-08-30] MEDS: LOVENOX 40 MG SC (17:12)
[2024-08-30 17:23] VITALS: BP 131/86
[2024-08-30 21:30] LABS: Glucose - Point of Care 194 mg/dl (70-99)
[2024-08-30 23:29] VITALS: BP 160/80
[2024-08-31] MEDS: TYLENOL 1000 MG PO ×4 (05:22→23:01)
[2024-08-31] MEDS: FLAGYL 500 MG PO ×3 (05:22→23:01)
[2024-08-31 07:20] VITALS: BP 169/82
[2024-08-31 07:30] LABS: Glucose - Point of Care 138 mg/dl (70-99)
[2024-08-31] MEDS: NORVASC 5 MG PO (08:59)
[2024-08-31] MEDS: COZAAR 25 MG PO ×2 (08:59→19:53)
[2024-08-31] MEDS: LOW STRENGTH ASPIRIN 81 MG PO (08:59)
[2024-08-31] MEDS: PROTONIX 40 MG PO (08:59)
[2024-08-31] MEDS: CLARITIN 10 MG PO (08:59)
[2024-08-31] MEDS: NEURONTIN 100 MG PO ×3 (08:59→23:02)
[2024-08-31] MEDS: LOPRESSOR 100 MG PO ×2 (08:59→19:53)
[2024-08-31] MEDS: NOVOLOG FLEXPEN-LOW RESISTANCE SC ×2 (08:59→17:31)
[2024-08-31] MEDS: FEOSOL 325 MG PO (09:00)
[2024-08-31] MEDS: SANTYL OINTMENT 1 APPLIC TOPICAL ×2 (09:00→19:53)
[2024-08-31] MEDS: ATIVAN PO ×2 (09:00→19:54)
[2024-08-31] MEDS: NIZORAL 2% CREAM 1 APPLIC TOPICAL (09:01)
--- NOTE | 2024-08-31 12:29 | W.PN.HOSP.TC ---
Today's Communication/Plan
-
Assessment / Plan
Assessment / Plan
NAD, resting comfortably in bed
Scleral anicteric
Moist mucous membranes
No JVD
CTA bilateral
Normal S1-S2 no murmurs
Soft nontender nondistended bowel sounds active
JODIE drain with little output yellow/white color
No peripheral pitting edema
Moves extremities spontaneously
AAOx3
Sinus pain, seems improved
-I am not expereincing headaches nor dizziness
-Will add flonase and claritin
-did offer to obtain CTBrain, but she refused this as she stated that she has been 'radiated enough'
Severe sepsis secondary to intra-abdominal abscess
-S/p exploratory laparotomy with partial small bowel resection x 2 enteric cutaneous fistula takedown
-Abscess drain sent for culture which demonstrated Proteus VRE yeast
-Now on Rocephin micafungin daptomycin and metronidazole (d7/14)
-ID following and follow CK hold statin while on daptomycin
-Provide antiemetics as needed for nausea
-Surgery following
Postop ileus
-Resolved
Anemia acute on chronic, normocytic, likely related to perioperative bleeding
-S/p 2 units PRBC
Perforated sigmoid diverticulitis
-S/p Barbour's procedure bowel resection x 2 colostomy
-Continue ostomy care
-Outpatient colorectal surgery follow
Type 2 diabetes
-A1c 6 point
-Hold Farxiga
-Continue sliding
-Goal blood glucose 1 40-1 80
-When able to tolerate diet carb
Hypokalemia
-Replete prn
Anticipated Discharge: > 48 hours
Subjective/Interval History
-
Date of Service: August 31, 2024
seen and examined. no new complaints. no acute overnight events. son at bedisde and updated.
Objective Data
-
Vital Signs:
Vital Signs
Temp Pulse Resp BP Pulse Ox
99.0 F 94 16 169/82 98
08/31/24 07:20 08/31/24 07:20 08/31/24 07:20 08/31/24 07:20 08/31/24 07:20
I&O
08/30/24 08/31/24 09/01/24
06:59 06:59 06:59
Intake Total 1440 / 1440 720 / 720
Output Total 600 / 600 125 / 125 520 / 520
Balance 840 / 840 595 / 595 -520 / -520
[2024-08-31] MEDS: ROCEPHIN 2000 MG IV (12:40)
[2024-08-31] MEDS: CUBICIN 16.8 MG IV (12:41)
[2024-08-31] MEDS: STERILE WATER FOR INJECTION 20 ML IV (12:41)
[2024-08-31] MEDS: MYCAMINE 105 MG IV (12:41)
[2024-08-31 13:00] LABS: Glucose - Point of Care 253 mg/dl (70-99)
[2024-08-31] MEDS: NOVOLOG FLEXPEN-LOW RESISTANCE 3 UNITS SC (13:34)
[2024-08-31 15:00] VITALS: BP 161/85
[2024-08-31] MEDS: LOVENOX 40 MG SC (17:26)
[2024-08-31 17:32] LABS: Glucose - Point of Care 149 mg/dl (70-99)
[2024-08-31 22:06] LABS: Glucose - Point of Care 185 mg/dl (70-99)
[2024-08-31 23:38] VITALS: BP 143/75
[2024-09-01] MEDS: FLAGYL 500 MG PO ×3 (05:45→21:24)
[2024-09-01] MEDS: TYLENOL 1000 MG PO ×4 (05:45→23:20)
[2024-09-01 07:10] VITALS: BP 175/89
[2024-09-01 08:25] LABS: Glucose - Point of Care 143 mg/dl (70-99)
[2024-09-01] MEDS: PROTONIX 40 MG PO (09:44)
[2024-09-01] MEDS: NOVOLOG FLEXPEN-LOW RESISTANCE SC (09:44)
[2024-09-01] MEDS: CLARITIN 10 MG PO (09:44)
[2024-09-01] MEDS: COZAAR 25 MG PO ×2 (09:44→21:24)
[2024-09-01] MEDS: ATIVAN PO ×2 (09:44→21:20)
[2024-09-01] MEDS: NORVASC 5 MG PO (09:45)
[2024-09-01] MEDS: NEURONTIN 100 MG PO ×3 (09:45→21:24)
[2024-09-01] MEDS: FEOSOL 325 MG PO (09:45)
[2024-09-01] MEDS: LOW STRENGTH ASPIRIN 81 MG PO (09:45)
[2024-09-01] MEDS: SANTYL OINTMENT 1 APPLIC TOPICAL ×2 (09:48→21:25)
[2024-09-01] MEDS: NIZORAL 2% CREAM TOPICAL (09:48)
[2024-09-01] MEDS: LOPRESSOR 100 MG PO ×2 (10:08→21:23)
--- NOTE | 2024-09-01 10:41 | W.PN.GS2 ---
Addendum entered and electronically signed by Jg Zapien MD 09/01/24 11:13:
I saw and examined the patient.
The Regulatory Affairs Strategy Specialist's note was reviewed and I agree with the note.
Comment: No complaints. WBC improved. Belly soft, nt, wound without signs of infection. Stoma with stool and gas. Cont current mgmt
Original Note:
Today's Communication / Plan
-
Continue ABX
Local wound care
Assessment / Plan
-
Assessment/plan: 58-year-old female postoperative day 12 status post ex lap takedown EC fistula with complete lysis of adhesions and SBR x 2. Subsequent IR aspirate of post op fluid seen on follow up CT
AFVSS
No labs since 08/30, at that time WBC and plt trending up
wound cx from OR with VRE, proteus and yeast; ID following on ABX
Midline placed for IV abx
--Trend labs
--Continue current diet
--Continue anxiolytic/analgesics
--Local wound care: pack base of incisional wound with saline soaked gauze
--OOB/Ambulate/PT following
--IS while awake
--ID following on ABX, on day 10 of cx sensitive abx
--Wound care following for sacral decub management
--Medical management as per primary team
Nearing readiness for discharge, awaiting plan for abx prior to going home. Will check CBC today and in AM.
Subjective Data
-
Date of Service: September 01, 2024
Patient seen and examined at bedside with Dr. Zapien. No acute complaints. Denies n/v. Tolerating diet. Pain minimal and well controlled.
Objective Data
-
Intake and Output
08/31/24 09/01/24 09/02/24
06:59 06:59 06:59
Intake Total 720 / 720 1200 / 1200
Output Total 125 / 125 530 / 530
Balance 595 / 595 670 / 670
Intake:
Oral fluids 720 / 720 1200 / 1200
Output:
Liquid stool amount 125 / 125 530 / 530
Colostomy 125 / 125 530 / 530
Other:
Number of approximated MODERATE 2 3
amounts of urine
Number of approximated LARGE 3 1
amounts of urine
How many times incontinent 2
SATURATED amount urine
Vital Signs
Temp Pulse Resp BP Pulse Ox
98.3 F 108 17 175/89 97
09/01/24 07:10 09/01/24 07:10 09/01/24 07:10 09/01/24 07:10 09/01/24 07:10
Calcium 8.1 mg/dl (8.4-10.2) L 08/30/24 04:49
Phosphorus 3.5 mg/dl (2.5-4.5) 08/24/24 07:52
Magnesium 1.6 mg/dl (1.6-2.3) 08/29/24 05:08
Total Bilirubin 0.7 mg/dl (0.2-1.3) 08/24/24 07:52
AST 19 U/L (14-36) 08/24/24 07:52
ALT 11 U/L (0-35) 08/24/24 07:52
Alkaline Phosphatase 84 U/L (38-126) 08/24/24 07:52
Total Protein 5.3 g/dl (6.3-8.2) L 08/24/24 07:52
Albumin 2.6 g/dl (3.5-5.0) L 08/24/24 07:52
Physical Exam
-
NAD
ABD soft, ND, NT, stoma pink and productive of stool/flatus
Midline incision with intact merari, lower portion of incision with merari removed no active bleeding noted and no purulence present, SSF on dressing
[2024-09-01 10:55] LABS: Hematocrit 23.1 % (37.0-47.0); Hemoglobin 7.2 g/dL (12.0-16.0); Mean Corp Hgb Conc. 31.2 g/dL (33.0-37.0); Mean Corpuscular Hgb 27.7 pg (27.0-31.0); Mean Corpuscular Volume 88.8 fL (81.0-99.0); Platelet Count 411 10^3/uL (130-400); Red Cell Dist. Width 16.8 % (11.5-14.5)
[2024-09-01 11:00] VITALS: BP 150/78
[2024-09-01 11:02] LABS: Blood Urea Nitrogen 11 mg/dl (7-17); Calcium 8.3 mg/dl (8.4-10.2); Carbon Dioxide 23 mmol/L (22-30); Chloride 105 mmol/L (98-107); Estimated Creatinine Clearance 108 ml/min; Glucose 179 mg/dl (70-99); Potassium 3.5 mmol/L (3.5-5.1); Sodium 137 mmol/L (135-145); eGFR > 60.00
--- NOTE | 2024-09-01 11:47 | W.PN.HOSP.TC ---
Today's Communication/Plan
-
DC per Surgical recs
Assessment / Plan
Assessment / Plan
NAD, resting comfortably in bed
Scleral anicteric
Moist mucous membranes
No JVD
CTA bilateral
Normal S1-S2 no murmurs
Soft nontender nondistended bowel sounds active
JODIE drain with little output yellow/white color
No peripheral pitting edema
Moves extremities spontaneously
AAOx3
Sinus pain, resolved
-Continue flonase and claritin
Severe sepsis secondary to intra-abdominal abscess
-S/p exploratory laparotomy with partial small bowel resection x 2 enteric cutaneous fistula takedown
-Abscess drain sent for culture which demonstrated Proteus VRE yeast
-Now on Rocephin micafungin daptomycin and metronidazole (d8/14)
-ID following and follow CK hold statin while on daptomycin
-Provide antiemetics as needed for nausea
-Surgery following
Postop ileus
-Resolved
Anemia acute on chronic, normocytic, likely related to perioperative bleeding
-S/p 2 units PRBC
Perforated sigmoid diverticulitis
-S/p Barbour's procedure bowel resection x 2 colostomy
-Continue ostomy care
-Outpatient colorectal surgery follow
Type 2 diabetes
-A1c 6 point
-Hold Farxiga
-Continue sliding
-Goal blood glucose 1 40-1 80
-When able to tolerate diet carb
Hypokalemia
-Replete prn
Anticipated Discharge: > 48 hours
Subjective/Interval History
-
Date of Service: September 01, 2024
seen and examined. no new complaints. no acute overnight evetns
head issues resolved
tolerated diet well,finished entire plate of omelet and able to keep it down
no further burping after starting ppi
Objective Data
-
Labs:
Laboratory Results
09/01/24
10:41
WBC 10.0
Hgb 7.2 L
Hct 23.1 L
Plt Count 411 H
Sodium 137
Potassium 3.5
Chloride 105
Carbon Dioxide 23
BUN 11
Creatinine 0.5 L
Glucose 179 H
Calcium 8.3 L
Vital Signs:
Vital Signs
Temp Pulse Resp BP Pulse Ox
98.3 F 108 17 175/89 97
09/01/24 07:10 09/01/24 07:10 09/01/24 07:10 09/01/24 07:10 09/01/24 07:10
I&O
08/31/24 09/01/24 09/02/24
06:59 06:59 06:59
Intake Total 720 / 720 1200 / 1200
Output Total 125 / 125 530 / 530
Balance 595 / 595 670 / 670
--- NOTE | 2024-09-01 12:05 | PTCARENOTE ---
patient hgb today at 7.2. Rene Arambula made aware. no new orders at this time. No s/s of distress noted. plan of care ongoing.
[2024-09-01] MEDS: MYCAMINE 105 MG IV (12:28)
[2024-09-01] MEDS: ROCEPHIN 2000 MG IV (12:28)
[2024-09-01] MEDS: STERILE WATER FOR INJECTION 20 ML IV (12:29)
[2024-09-01 13:32] LABS: Glucose - Point of Care 176 mg/dl (70-99)
[2024-09-01] MEDS: CUBICIN 16.8 MG IV (13:33)
[2024-09-01] MEDS: NOVOLOG FLEXPEN-LOW RESISTANCE 1 UNITS SC (13:34)
[2024-09-01] MEDS: APRESOLINE 5 MG IV (15:39)
[2024-09-01 16:50] LABS: Glucose - Point of Care 215 mg/dl (70-99)
[2024-09-01] MEDS: NOVOLOG FLEXPEN-LOW RESISTANCE 2 UNITS SC (16:58)
[2024-09-01] MEDS: LOVENOX 40 MG SC (16:59)
[2024-09-01 17:36] VITALS: BP 152/76
[2024-09-01 22:52] LABS: Glucose - Point of Care 154 mg/dl (70-99)
[2024-09-01 23:43] VITALS: BP 137/72
[2024-09-02] VITALS (10 sets, daily range): BP systolic 151–173; BP diastolic 68–95; BMI 29.1
[2024-09-02] MEDS: FLAGYL 500 MG PO ×3 (06:17→21:04)
[2024-09-02] MEDS: TYLENOL 1000 MG PO ×4 (06:17→23:51)
[2024-09-02 07:23] LABS: Glucose - Point of Care 170 mg/dl (70-99)
[2024-09-02 08:11] LABS: Hematocrit 20.3 % (37.0-47.0); Hemoglobin 6.2 g/dL (12.0-16.0); Mean Corp Hgb Conc. 30.5 g/dL (33.0-37.0); Mean Corpuscular Hgb 27.8 pg (27.0-31.0); Mean Platelet Volume 10.4 fL (7.4-10.4); Platelet Count 370 10^3/uL (130-400); Red Blood Cell Count 2.23 10^6/uL (4.20-5.40); Red Cell Dist. Width 17.1 % (11.5-14.5); White Blood Cell Count 9.5 10^3/uL (4.8-10.8)
--- NOTE | 2024-09-02 08:15 | W.PN.UPDATE ---
Update Note
Progress Note Update
I saw and evaluated the patient. I reviewed the resident�s note and agree with findings and plan as documented in the resident�s note.
No new complaints.
Gen: NAD, AAOx3.
Eyes: EOMI, PERRLA, no scleral icterus.
Neck: supple.
CV: RRR with frequent premature beats, +S1/S2, 2/6 systolic murmur
Resp: CTAB, no rales, wheezes, or rhonchi.
Abd: +BS, soft, L-sided TTP, ND
Skin: No rashes.
Neuro: CN 2-12 intact, non-focal.
Psych: Normal mood and affect.
08/22/24 10:40 Blood/Venous Blood Culture - Final
No Growth - Final Report
08/22/24 09:43 Blood/Venous Blood Culture - Final
No Growth - Final Report
08/22/24 16:20 Fluid Body Fluid Culture - Final
No Growth After 72 Hours
08/22/24 16:20 Fluid Gram Stain - Final
08/20/24 13:30 Abdomen Wound Culture - Final
Proteus mirabilis
Enterococcus faecium - VRE
Yeast
08/20/24 13:30 Abdomen Gram Stain - Final
08/20/24 13:30 Abdomen Anaerobic Culture - Final
08/10/24 04:08 Abdomen Wound Culture - Final
08/10/24 04:08 Abdomen Gram Stain - Final
Melena:
-NPO except meds
-IVFs
-PPI gtt
-H/H Q6H
Severe sepsis secondary to intra-abdominal abscess:
-S/p exploratory laparotomy with partial small bowel resection x 2 enteric cutaneous fistula takedown
-Abscess drain sent for culture which demonstrated Proteus VRE yeast
-Now on Rocephin, micafungin, daptomycin, and metronidazole (D9/14)
-ID following and follow CK hold statin while on daptomycin
-Provide antiemetics as needed for nausea
-Surgery following
Perforated sigmoid diverticulitis
-S/p Barbour's procedure bowel resection x 2 colostomy
-Continue ostomy care
-Outpatient colorectal surgery follow
Acute on chronic normocytic anemia:
-acute blood loss anemia likely related to perioperative bleeding
-transfuse 2U pRBCs today
Other problems:
Sinus pain: resolved, cont flonase/claritin
Postop ileus: Resolved
DM2: a1c 6.6%, SSI/accuchecks
Hypokalemia, replete
Family updated at bedside.
FULL/SCDs
Total time spent on today's encounter was 50 minutes which included time spent in counseling the patient/family regarding diagnosis and treatment plan as listed above, goals of care, and symptom management. Case was discussed with nursing staff,
specialists, and care coordinators/case management. All labs and imaging personally reviewed by me. Remainder the time spent in detailed review of previous records, lab data, imaging, and other medical provider documentation.
--- NOTE | 2024-09-02 08:34 | W.PN.HOSP.TC ---
Addendum entered and electronically signed by Zaar Johnston MD, Resident 09/02/24 10:29:
Patient is having a melanotic stool. GI is consulted. Patient is made NPO.
Will advance diet based on GI.
Pending GI plan
Original Note:
Today's Communication/Plan
-
2 units of blood transfusion.
Continue IV antibiotics - Daptomycin, metronidazole, micafungin,
Off of IV fluids, tolerating oral diet well.
Assessment / Plan
Assessment / Plan
Assessment -58-year-old female with PMHx complicated for type II DM, chronic normocytic anemia, coarctation of aorta s/p stenting, stage III sacral decubitus ulcer, endometrial cancer, sigmoid diverticulitis with multiple bowel resections and recent
enterocutaneous fistula comes to hospital for sepsis due to intra-abdominal abscess with postop enterocutaneous fistula takedown procedure complicated by postop ileus.
Plan-
Sepsis secondary to intra-abdominal abscess-multiple -resolved.
S/p exploratory laparotomy, partial small bowel resection x 2, enterocutaneous fistula takedown by Dr. Farnsworth on 08/20.
S/p colostomy in March, colostomy reversal not performed due to sacral decubitus ulcer.
Fevers-08/14 8 AM, blood cultures negative. Leukocytosis resolved.
Repeat CT abdomen and pelvis-08/22-left upper abdominal fluid collection, no change compared to prior CT.
S/p aspiration of left abdominal fluid collection by IR on 08/22-45 cc serosanguineous fluid obtained,
IR drain cultures-72 hours-negative.
ID on board, continue antimicrobials ceftriaxone, daptomycin, micafungin, metronidazole per ID.
Appreciate ID inputs.
Anemia-
Acute on chronic, normocytic
S/p 2 units of PRBC transfusion on 08/23.
Last dose of Lovenox on 08/18.
Hemoglobin currently low at 6.2. Reviewed results with the patient, plan for 2 units of blood transfusion today
Postop ileus-
Resolved.
Off of NG tube, tolerating full liquids well, colorectal surgery advance diet to regular today.
Patient choked on her regular diet-eggs in the a.m. today.
Refuses solid diets, speech therapy consulted for oral dysphagia.
Speech therapy evaluation had no concerns for dysphagia.
Speech recommended bland solids and small amounts at a time until patient is able to tolerate regular textures and get over her anxiety.
New onset headaches-
History of Tigre cistern magna and allergies
Started patient on Claritin and saline nasal spray.
Offered to obtain a head CT but patient refuse quoting that she had a head CT in January.
Will update the patient on her head CT results.
Hypokalemia -
Resolved.
Repleted potassium in the am on 08/27/2024.
Perforated sigmoid diverticulitis-
S/p Caridad procedure, bowel resection x 2, colostomy formation, iatrogenic splenic capsular repair.
Continue ostomy care.
Colorectal surgery in follow-up, appreciate inputs.
Type 2 diabetes mellitus-
HbA1c at 6.6.
Hold Farxiga, continue SSI.
Currently blood sugars well-controlled.
Patient is advancing to regular diet, reassess her blood sugars in the a.m. tomorrow.
Essential hypertension-
Blood pressure has been labile during this hospital admission
Continue, metoprolol, amlodipine, losartan with holding parameters.
Hyperkalemia-
Resolved, spironolactone discontinued.
Hyperlipidemia-hold statin while on daptomycin.
Left upper quadrant perisplenic hematoma-
IR drain removed on 07/30/2024.
Left upper quadrant infected perisplenic hematoma
-Drain removed 07/30/2024
Essential Hypertension -blood pressure somewhat labile. Continue metoprolol, amlodipine. Resume losartan.
Hyperkalemia -spironolactone discontinued.
Stage III sacral decubitus wound-
prior to admission, continue local wound care.
Frequent position changes.
DVT prophylaxis-SCD.
CODE STATUS full code.
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
History of aortic coarctation
-s/p stent 20 years ago
Deconditioning
-Chronically ill complicated recent hospitalizations
-Uses walker at home
-PT/OT as tolerated
Endometrial cancer -s/p hysterectomy.
History of breast cancer
-S/p mastectomy and chemotherapy
Stage III sacral decubital wound -POA. Continue local wound care, offloading.
Obesity due to excess calories
Dispo -SNF recommended by PT. patient and family refused SNF. Will arrange for home visiting nurse, PT and OT.
Anticipated Discharge: > 48 hours
Subjective/Interval History
-
Date of Service: September 02, 2024
Patient denies having any blood in the stool, dark tarry colored stools. Her ostomy output looks dark.-Dressing is clean, there is no drainage from her fistula site.
Objective Data
-
Labs:
Laboratory Results
09/02/24
07:27
WBC 9.5
Hgb 6.2 L*
Hct 20.3 L*
Plt Count 370
Sodium Pending
Potassium Pending
Chloride Pending
Carbon Dioxide Pending
BUN Pending
Creatinine Pending
Glucose Pending
Calcium Pending
Vital Signs:
Vital Signs
Temp Pulse Resp BP Pulse Ox
99.0 F 101 16 158/76 99
09/02/24 07:10 09/02/24 07:10 09/02/24 07:10 09/02/24 07:10 09/02/24 07:10
I&O
09/01/24 09/02/24 09/03/24
06:59 06:59 06:59
Intake Total 1200 / 1200 1240 / 1240
Output Total 530 / 530 400 / 400
Balance 670 / 670 840 / 840
Review of Systems
-
History Source: Patient
Constitutional: Denies Fever, Fatigue or Chills
EENT: Reports No Symptoms Reported
Respiratory: Denies Cough, Trouble Breathing or Wheezing
Cardiac: Denies Chest Pain, Palpitations, Syncope or PND
Abdomen/GI: Denies Abdominal Pain, Nausea, Vomiting, Diarrhea, Bloody Stools or Black Stools
Genitourinary: Denies Dysuria, Frequency, Difficulty Voiding or Bleeding
Musculoskeletal: Denies No Symptoms or Muscle Stiffness
Skin: Denies No Symptoms
Neuro: Reports Headache; Denies No Symptoms, Dizzy or Weakness
Endocrine: Reports No Symptoms
Hematologic / Lymphatic: Denies No Symptoms
Allergy / Immunology: Denies No Symptoms
Physical Exam
-
General: No Apparent Distress and Comfortable
HEENT: Moist Mucous Membranes and PERRLA
Respiratory: Clear to Auscultation; Negative Wheezes, Rales or Rhonchi
Cardiac: Regular Rhythm, S1/S2 and Murmur (Systolic, 3/6, best heard in aortic area.); Negative Rub, JVD or Gallop
GI: Soft, Nontender, Nondistended and Normal Bowel Sounds
Genito-urinary: Negative No Costovertebral Tender
Musculoskeletal: Negative No Clubbing, No Cyanosis or No Edema
Skin: Warm
Neuro: AO x 3
Psych: Calm
Data Reviewed
-
Labs: Labs Reviewed by me, Discussed with Physician and Discussed with Nurse
[2024-09-02 08:41] LABS: Blood Urea Nitrogen 15 mg/dl (7-17); Calcium 8.1 mg/dl (8.4-10.2); Carbon Dioxide 24 mmol/L (22-30); Chloride 106 mmol/L (98-107); Estimated Creatinine Clearance 108 ml/min; Glucose 159 mg/dl (70-99); Potassium 3.3 mmol/L (3.5-5.1); Sodium 137 mmol/L (135-145); eGFR > 60.00
--- NOTE | 2024-09-02 08:55 | W.PN.CRS1 ---
Today's Communication / Plan
-
transfusion
hold lovenox
GI consult
Assessment/Plan
-
POD 13 ex lap, SBR x 2, takedown of enterocutaneous fistula
AFVSS
WBC 9.5, hgb 6.2
�Transfusion per primary team
-Will consult GI given dark stools and anemia
-Hold Lovenox given anemia
� Continue reg diet
- Strict I's and O's
� Continue pain control
�Appreciate ID; on micafungin, ceftriaxone and daptomycin
� Continue DVT PPx with TEDS/SCDS
�OOB/IS, appreciate PT
� Appreciate hospitalist
Subjective Data
Procedure
08/21- Exploratory laparotomy, Partial small bowel resection x2, Takedown of enterocutaneous fistula.
Subjective Data
Date of Service: September 02, 2024
Patient states she feels 'good'. She has no nausea or vomiting. She is having dark stools from her ileostomy output. She has been tolerating a diet.
Objective Data
-
Vital Signs
Temp Pulse Resp BP Pulse Ox
99.0 F 101 16 158/76 99
09/02/24 07:10 09/02/24 07:10 09/02/24 07:10 09/02/24 07:10 09/02/24 07:10
Intake & Output
09/01/24 09/02/24 09/03/24
06:59 06:59 06:59
Intake Total 1200 / 1200 1240 / 1240
Output Total 530 / 530 400 / 400
Balance 670 / 670 840 / 840
Intake:
Oral fluids 1200 / 1200 1240 / 1240
Output:
Liquid stool amount 530 / 530 400 / 400
Colostomy 530 / 530 400 / 400
Other:
Number of approximated MODERATE 3 2
amounts of urine
Number of approximated LARGE 1
amounts of urine
How many times incontinent 2
MODERATE amount urine
How many times incontinent 2
SATURATED amount urine
Lab Results
09/02/24 07:27
09/02/24 07:27
Physical Exam
-
General: No Acute Distress and AOx3
Abdomen: Soft, Non Distended, Non Tender and Other (colostomy warm and pink, darker stools in bag)
[2024-09-02] MEDS: NOVOLOG FLEXPEN-LOW RESISTANCE 1 UNITS SC ×3 (09:12→17:51)
[2024-09-02] MEDS: NEURONTIN 100 MG PO ×3 (09:13→21:04)
[2024-09-02] MEDS: LOPRESSOR 100 MG PO ×2 (09:13→21:04)
[2024-09-02] MEDS: CLARITIN 10 MG PO (09:13)
[2024-09-02] MEDS: LOW STRENGTH ASPIRIN 81 MG PO (09:13)
[2024-09-02] MEDS: ATIVAN PO ×2 (09:13→21:04)
[2024-09-02] MEDS: FEOSOL 325 MG PO (09:13)
[2024-09-02] MEDS: NORVASC 5 MG PO (09:14)
[2024-09-02] MEDS: NIZORAL 2% CREAM TOPICAL (09:14)
[2024-09-02] MEDS: SANTYL OINTMENT 1 APPLIC TOPICAL ×2 (09:14→21:04)
[2024-09-02] MEDS: PROTONIX 40 MG PO (09:14)
[2024-09-02] MEDS: COZAAR 25 MG PO ×2 (09:14→21:04)
--- NOTE | 2024-09-02 10:11 | CON.GI ---
Addendum entered and electronically signed by Patricia Mcbride MD 09/02/24 13:54:
I saw and examined the patient.
The AIR CONDITIONING INSULATION INSTALLER's note was reviewed and I agree with the note.
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
hematoma and intra-abdominal abscesses and has had a few drains placed and has been on broad-spectrum antibiotics who presented on 08/10 with drainage from wound and concern for enterocutaneous fistula and was taken to the OR on 08/20 with ex lap
and partial small bowel resection and takedown of enterocutaneous fistula and was actually pending discharge today but was noted to have a drop in hemoglobin from 10.1 on 08/28-6.2 today with melena in the colostomy bag. She did have a recent
colonoscopy in July with Dr. Farnsworth which was poor prep and showed diverticulosis and otherwise normal
Assessment and plan acute blood loss anemia with melena in colostomy bag most likely etiology could be stress ulcer versus an anastomotic bleed or angioectasias. Will schedule her for a stat CT angiogram and if that is unremarkable will schedule
her for endoscopy plus or minus push enteroscopy tomorrow. She has been started on a Protonix drip continue to trend hemoglobin she is getting her first unit of packed red blood cells and is scheduled for another unit of transfusion
Addendum entered and electronically signed by YIFAN Yee 09/02/24 13:16:
reviewed with Dr. Mcbride increase stool in ostomy bag will check CTA and plan EGD in AM
Original Note:
Consultation
-
Date/Time Consultation Requested: 09/02/24 0850
Date/Time Consultation Performed: 09/02/24 1015
Requesting Provider: Bello Quiles MD
Performing Provider: IYFAN Mauricio, Patricia Mcbride MD
Reason for Consultation: melena
Medical History
Chief Complaint / HPI
Chief Complaint: anemia, melena
History of Present Illness:
Pt is a 58yo presents with hx NIDDM on , HTN, hyperlipidemia, coarctation of aorta and aortic stenting, endometrial and breast CA chemo and surgery no prior radiation, and complicated diverticulitis with recurrent admission since April.
She had initial surgery in April with ex laparotomy with Patterson's resection and colostomy on 05/22/2024 with extensive stay til June with intra-abdominal abscesses including right lower quadrant abscess as well as a left upper quadrant
splenic hematoma with IR drainage. She was discharged to a nursing facility on IV antibiotics. Several weeks later, her son noticed a foul smelling odor around her right lower quadrant JODIE drain and she presented through the ER and was re-admitted
from 07/17/2024- to 07/31/2024. During that admission her LUQ drain was removed and her midline drain was upsized by IR. She was discharged to home off antibiotics 07/31/2024 and returned on 08/02/2024 after a fall with weakness and was followed off
antibiotics with RLQ drain in place and eventually discharged back to home on 08/07/24 with home care. She now returns since 08/10 with drainage from wound and concern for enterocutaneous fistula. She returned to OR 08/20 for exp lap with partial
SBR x 2 and takedown of enterocutaneous fistula. She did have stable colonoscopy with poor prep prior to OR. She was preparing for discharge but now noted with drop in hbg from 10.1 on 08/28 to 6.2 09/02 with dark heme + stool in ostomy bag. She has
required 4 units PRBC on prior admission with periodic drops. Last Ct completed 08/22 with stable left upper abdomen collection, removal of midline anterior abscess catheter with small residual abscess and new left enlongated crescentic area of
simple fluid left abdomen.
At this time she is noted with dark stool in ostomy bag. She also had recent episodes of gagging with eating but this is slowly improving. She has had some belching. She denies vomiting, abdominal pain but notes some discomfort LUQ with deep
breath that is ongoing. She denies red blood in stools.
recent colonoscopy completed in July with Dr. Farnsworth to IC valve poor prep diverticulosis, stool in Transverse and ascending colon otherwise normal.
Past Medical History
Past Medical History: Cancer (endometrial and breast CA), HTN, Hypercholesterolemia, NIDDM and Other (coarctation of aorta and aortic stenting, Le pressure wound, complicated diverticulitis with intraabdominal abscess, splenic tear/perisplenic
hematoma with ? infection, left effusion with Chest tube placement )
Past Surgical History: Bowel Resection (Caridad's 05/22/24 complicated by RLQ abscess (drain remains in place) and splenic hematoma), Gynecological (LETI) and Other (mastectomy)
Social History
Tobacco: Non-Smoker
Alcohol: None
Drug: None
Living: Other (son assist with care )
Employment: Retired
Family History
Family History: Other (mother with colon CA )
Allergies / Home Medications
Allergy/AdvReac Type Severity Reaction Status Date / Time
diphtheria, pertussis, Allergy Unknown Verified 08/10/24 02:30
tetanus vacc
gentamicin Allergy Hearing Verified 08/10/24 02:30
loss
�Medication �Instructions �Recorded
multivitamin with folic acid 400 1 tab PO DAILY Supplement 09/02/20
mcg tablet (Tab-A-Sherley)
aspirin 81 mg chewable tablet 81 mg PO DAILY Blood Clot 05/20/24
Prevention/Tx
tirzepatide 2.5 mg/0.5 mL 2.5 mg SC WE Diabetes 05/20/24
subcutaneous pen injector
(Mounjaro)
acetaminophen 325 mg tablet 650 mg (2 x 325 mg) PO Q6HPRN PRN 07/01/24
mild pain #0 tabs
ferrous sulfate 325 mg (65 mg 325 mg PO DAILY Supplement #0 tabs 07/01/24
iron) tablet (FeroSul)
simethicone 80 mg chewable tablet 80 mg PO QIDPRN PRN gas pain #0 07/01/24
tabs
dapagliflozin propanediol 5 mg 5 mg PO DAILY diabetes #30 tabs 07/30/24
tablet
gabapentin 100 mg capsule 100 mg PO TID Pain #90 caps 07/30/24
insulin aspart U-100 100 unit/mL 4 unit (0.04 mL) SC AC Diabetes 07/30/24
(3 mL) subcutaneous pen #15 mL
ketoconazole 2 % topical cream 1 applic topical BID #60 grams 07/30/24
losartan 50 mg tablet 50 mg PO BID #60 tabs 07/30/24
metoprolol tartrate 100 mg tablet 100 mg PO BID #60 tabs 07/30/24
nifedipine 60 mg tablet,extended 60 mg PO BID #60 tabs 07/30/24
release
rosuvastatin 40 mg tablet (Crestor) 40 mg PO DAILY #30 tabs 07/30/24
spironolactone 25 mg tablet 25 mg PO DAILY Blood pressure #30 07/30/24
tabs
tramadol 50 mg tablet 50 mg PO Q6HPRN PRN moderate pain 07/30/24
#30 tabs
Review of Systems
-
History Source: Patient and Family
Constitutional: Reports Weight Loss and Fatigue
EENT: Reports No Symptoms
Respiratory: Reports No Symptoms
Cardiac: Reports No Symptoms
Abdomen/GI: Reports Abdominal Pain, Nausea (with gagging ) and Black Stools (dark stools)
: Reports No Symptoms
Skin: Reports No Symptoms
Neurological: Reports Weakness
Endocrine: Reports No Symptoms
Hematologic/Lymphatic: Reports No Symptoms
Vital Signs
Temp Pulse Resp BP Pulse Ox
99.0 F 101 16 158/76 99
09/02/24 07:10 09/02/24 07:10 09/02/24 07:10 09/02/24 09:14 09/02/24 07:10
Physical Exam
Exam
General: Well Developed, Well Nourished and No Apparent Distress
HEENT: Normocephalic, Anicteric and Moist Mucous Membranes
Respiratory: Clear
Cardiac: Regular Rhythm
GI: Soft, Non Tender and Other (mid abdominal incision with intract dressing)
Rectal: Other (ostomy bag with dark brown/black stool heme +)
Musculoskeletal: No Clubbing and No Cyanosis
Skin: Warm and Dry
Neuro: Awake, Alert and AO x 3
Psych: Calm
Results
WBC 9.5 10^3/uL (4.8-10.8) 09/02/24 07:27
Hgb 6.2 g/dL (12.0-16.0) L* 09/02/24 07:27
Hct 20.3 % (37.0-47.0) L* 09/02/24 07:27
MCV 91.0 fL (81.0-99.0) 09/02/24 07:27
Plt Count 370 10^3/uL (130-400) 09/02/24 07:27
Absolute Neuts (auto) 8.3 10^3/uL (1.4-6.5) H 08/30/24 04:49
PT 14.3 Sec (11.4-14.6) 08/20/24 08:08
INR 1.08 08/20/24 08:08
APTT 35.0 Sec (23.4-35.0) 08/20/24 08:08
Sodium 137 mmol/L (135-145) 09/02/24 07:27
Potassium 3.3 mmol/L (3.5-5.1) L 09/02/24 07:27
Chloride 106 mmol/L (98-107) 09/02/24 07:27
Carbon Dioxide 24 mmol/L (22-30) 09/02/24 07:27
BUN 15 mg/dl (7-17) 09/02/24 07:27
Creatinine 0.5 mg/dL (0.6-1.0) L 09/02/24 07:27
Calcium 8.1 mg/dl (8.4-10.2) L 09/02/24 07:27
Total Bilirubin 0.7 mg/dl (0.2-1.3) 08/24/24 07:52
AST 19 U/L (14-36) 08/24/24 07:52
ALT 11 U/L (0-35) 08/24/24 07:52
Alkaline Phosphatase 84 U/L (38-126) 08/24/24 07:52
Diagnostic Image Results:
08/22/24 CT Abd/pel W Iv And Oral Contr
1. Superior left upper abdominal abnormal fluid collection again seen, superior to the spleen, without overall significant change in size in appearance in comparison to most recent prior CT, as detailed above.
2. Interval removal of approximate midline anterior abdominal abscess catheter drainage with small volume residual fluid and air bubbles which could represent very small residual abscess.
3. NEW LARGE ELONGATED CRESCENTIC AREA OF PREDOMINANTLY SIMPLE FLUID DENSITY WITH SOME BUBBLES OF AIR extending from the left lateral abdomen into the soft tissues of the left lateral true pelvis amongst several loops of small bowel with thickened
de la rosa, without definitive oral contrast within. This could represent a new infected fluid collection.
Prior GI Procedures:
EGD: none
Colonoscopy: Dr. Farnsowrth to IC valve poor prep diverticulosis, stool in Transverse and ascending colon otherwise normal.
Assessment / Plan
-
Pt is a 58yo presents with hx NIDDM on , HTN, hyperlipidemia, coarctation of aorta and aortic stenting, endometrial and breast CA chemo and surgery but no prior radiation, and complicated diverticulitis with recurrent admission since April
ex laparotomy with Patterson's resection and colostomy on 05/22/2024 with extensive stay til June with intra-abdominal abscesses requiring drainage,splenic hematoma and this admission with enterocutaneous fistula with takedown. Now with drop in
hbg. She has required 4 units PRBC's last week month. Stool dark heme + in ostomy with normal BUN. She did have stable colonoscopy with poor prep prior to OR. She was preparing for discharge but now noted with drop in hbg from 10.1 on 08/28 to 6.2
09/02 with dark heme + stool in ostomy bag. She has required 4 units PRBC on prior admission with periodic drops. Last Ct completed 08/22 with stable left upper abdomen collection, removal of midline anterior abscess catheter with small residual
abscess and new left enlongated crescentic area of simple fluid left abdomen.
-melena
-anemia
-complicated diverticulitis with patterson's resection/colostomy/intraabd abscess/splenic hematoma
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
-sacral decub
other med problems:
-NIDDM on Mounjaro prior to admission
-HTN
-hyperlipidemia
-coarctation of aorta with prior stenting
-endometrial/breast CA with chemo/surgery no prior radiation
PLAN:
etiology of anemia may be multi factorial with some GI loss with heme + stool, chronic disease related with prolonged illness, med effect wtih continue multiple abx use vs other
currently BUN normal
pt recently completed colonoscopy
will review with Dr. Mcbride need for EGD
if cont drop or not responsive to transfusion consider repeat CT to rule out and intraabd source of anemia
agree with transfusion
trend hbg
Lovenox currently on hold
cont abx per ID
Pt was on Mounjaro prior to admission no doses given since admission
cont diet as tolerated will resume regular diet for now
-
-
Thank you for consultation and allowing me to participate in the patient's care. Please call the nutritionist public health GI physician during the after hours with any questions or concerns.
--- NOTE | 2024-09-02 10:26 | PTCARENOTE ---
pt with a hgb of 6.2 this morning. MD and resident made aware. new type and screen has been drawn and 2units of blood ordered to start once finialized. pt with melanotic stools this morning through ostomy. this nurse emptied 150ml of dark brown
liquid stool. pt x1 assist to commode. pt to be started on a protonix gtt. orders pending. GI consulted.
[2024-09-02] MEDS: KCL 40 MEQ PO (11:01)
[2024-09-02] MEDS: PROTONIX 100 IV ×2 (11:01→21:15)
--- NOTE | 2024-09-02 11:39 | CM ---
Patient seen at bedside.
Hgb 6.2
Per nursing patient to rec 2UPRBC
GI consult
Refuses SNF, Current with [facility]
PLAN: Discharge when medically stable, [facility]
[2024-09-02] MEDS: CUBICIN 16.8 MG IV (12:06)
[2024-09-02] MEDS: STERILE WATER FOR INJECTION 20 ML IV (12:06)
[2024-09-02] MEDS: ROCEPHIN 2000 MG IV (12:06)
[2024-09-02] MEDS: MYCAMINE 105 MG IV (12:20)
--- NOTE | 2024-09-02 12:50 | W.PN.ID1 ---
Date of Service
Date of Service: September 02, 2024
Today's Communication
Continue antibiotics.
Assessment / Plan
Suspected GI bleed
Anterior right-midline abdominal collection/abscess
- s/p drain placement (06/10/24) and recent upsizing of drain (07/27/24)
- Abscess cultures 07/17: staph epi, strep species x 2 s/p Ertapenem (05/31 to 07/29)
- 08/20/24 s/p washout, SBR x 2 OR cx: Proteus , VRE, yeast
- 08/22/24 CT: new large fluid with bubbles from left lateral abd into soft tissue of pelvis
- 08/22/24 s/p IR aspiration of left abd fluid (no drain placed). Cx: No growth
Anterior midline lower abdominal incision drainage
- enteric fistula communication with underlying abscess
- cx 'few mixed skin negrito'. GNR's and GPC's seen on microscopy.
- S/P enteric fistula repair 08/20/24
LUQ intra-abdominal abscess
- hx post-op LUQ infected hematoma s/p perc drain, Cx Klebsiella pneumoniae, ESBL-Ecoli s/p Ertapenem (05/31 to 07/29)
-LUQ drain removed 07/27/24
- 08/[address] - stable size fluid collection
Hx Diverticulitis with diverticular perforation
- s/p diverting colostomy (05/22/2024).
- Intra-op splenic capsular tear with subsequent hematoma development
Recommendation:
Fever; improved
Continue daptomycin 500mg IV q24h (d#11). Monitor CK while on daptomycin.
Holding statin while on daptomycin.
Continue Micafungin (d#11)
Continue ceftriaxone and metronidazole. (d#11)
Would complete a 14-day course of therapy in total.
Follow temps, wbc.
Follow clinically.
����������������������������������������������������������
Chief Complaint
-: Other (Abd abscesses)
Subjective / Review of Systems
Patient seen and examined. New melanotic stool from ostomy. No fevers or chills.
Review of Systems: No Fever and No Chills
Vital Signs / Physical Exam
Vital Signs
Vital Signs
Temp Pulse Resp BP Pulse Ox
99.7 F 79 16 168/80 99
09/02/24 12:18 09/02/24 12:18 09/02/24 12:18 09/02/24 12:18 09/02/24 07:10
Physical Exam
Constitutional: No Acute Distress, Comfortable and Non-toxic
Head: Normocephalic
Eyes: No Conjunctival Hemorrhage and Sclera Anicteric
Pulmonary: Non Labored
Gastrointestinal: Soft, Non Distended and Other (Midline dressing intact. Ostomy in place with dark stool)
Extremities: Edema (trace)
Neurological: AO x 3
Psychological: Calm
Objective Data
Lab Data
Lab Results
09/02/24 07:27
PT 14.3 Sec (11.4-14.6) 08/20/24 08:08
INR 1.08 08/20/24 08:08
APTT 35.0 Sec (23.4-35.0) 08/20/24 08:08
Estimated Creat Clear 108 ml/min 09/02/24 07:27
Total Bilirubin 0.7 mg/dl (0.2-1.3) 08/24/24 07:52
AST 19 U/L (14-36) 08/24/24 07:52
ALT 11 U/L (0-35) 08/24/24 07:52
Alkaline Phosphatase 84 U/L (38-126) 08/24/24 07:52
Most recent labs reviewed.
Micro Results:
08/22/24 10:40 Blood Culture - Final
Blood/Venous No Growth - Final Report
08/22/24 09:43 Blood Culture - Final
Blood/Venous No Growth - Final Report
08/22/24 16:20 Body Fluid Culture - Final
Fluid No Growth After 72 Hours
Gram Stain - Final
08/20/24 13:30 Wound Culture - Final
Abdomen Proteus mirabilis
Enterococcus faecium - VRE
Yeast
Gram Stain - Final
08/20/24 13:30 Anaerobic Culture - Final
Abdomen
08/10/24 04:08 Wound Culture - Final
Abdomen Gram Stain - Final
Imaging:
08/22/24 CT a/p: Superior left upper abdominal abnormal fluid collection again seen, superior to the spleen, without overall significant change in size in appearance in comparison to most recent prior CT, as detailed above. Interval removal of
approximate midline anterior abdominal abscess catheter drainage with small volume residual fluid and air bubbles which could represent very small residual abscess. NEW LARGE ELONGATED CRESCENTIC AREA OF PREDOMINANTLY SIMPLE FLUID DENSITY WITH SOME
BUBBLES OF AIR extending from the left lateral abdomen into the soft tissues of the left lateral true pelvis amongst several loops of small bowel with thickened de la rosa, without definitive oral contrast within. This could represent a new infected
fluid collection.
Care Review
Plan reviewed with: Other Provider (GI)
[2024-09-02 13:57] LABS: Glucose - Point of Care 197 mg/dl (70-99)
[2024-09-02] MEDS: APRESOLINE 5 MG IV (15:06)
[2024-09-02 15:33] LABS: Hemoglobin 8.3 g/dL (12.0-16.0)
[2024-09-02 17:51] LABS: Glucose - Point of Care 185 mg/dl (70-99)
[2024-09-02] MEDS: NSS 1000 IV (21:15)
[2024-09-02 22:12] LABS: Glucose - Point of Care 206 mg/dl (70-99)
[2024-09-03 00:47] LABS: Hemoglobin 8.5 g/dL (12.0-16.0)
[2024-09-03 06:00] VITALS: BMI 30.4
[2024-09-03] MEDS: FLAGYL 500 MG PO ×3 (06:09→21:38)
[2024-09-03] MEDS: TYLENOL 1000 MG PO ×4 (06:09→23:58)
[2024-09-03] MEDS: PROTONIX 100 IV ×2 (06:10→16:33)
[2024-09-03 06:36] LABS: % Basophils 0.7 % (0-2); % Eosinophils 3.2 % (0-6); % Immature Granulocytes 1.2 % (0-0.5); % Lymphocytes 15.3 % (20.5-51.1); % Monocytes 7.2 % (1.7-9.3); % Neutrophils 72.4 % (42.2-75.2); Absolute Basophils 0.1 10^3/uL (0-0.2); Absolute Eosinophils 0.3 10^3/uL (0-0.7); Absolute Immature Granulocytes 0.1 10^3/uL (0-0.05); Absolute Lymphocytes 1.6 10^3/uL (1.2-3.4); Absolute Monocytes 0.7 10^3/uL (0.1-0.6); Absolute Neutrophils 7.4 10^3/uL (1.4-6.5); Hematocrit 24.5 % (37.0-47.0); Hemoglobin 8.1 g/dL (12.0-16.0); Mean Corp Hgb Conc. 33.1 g/dL (33.0-37.0); Mean Corpuscular Hgb 28.5 pg (27.0-31.0); Mean Corpuscular Volume 86.3 fL (81.0-99.0); Nucleated Red Blood Cells % 0 %; Platelet Count 365 10^3/uL (130-400); Red Blood Cell Count 2.84 10^6/uL (4.20-5.40); Red Cell Dist. Width 16.6 % (11.5-14.5); White Blood Cell Count 10.2 10^3/uL (4.8-10.8)
[2024-09-03 07:00] VITALS: BP 193/99
[2024-09-03 07:07] LABS: Blood Urea Nitrogen 12 mg/dl (7-17); Calcium 8.1 mg/dl (8.4-10.2); Carbon Dioxide 24 mmol/L (22-30); Chloride 107 mmol/L (98-107); Estimated Creatinine Clearance 108 ml/min; Glucose 134 mg/dl (70-99); Potassium 3.5 mmol/L (3.5-5.1); Sodium 138 mmol/L (135-145); eGFR > 60.00
[2024-09-03 07:14] LABS: Glucose - Point of Care 147 mg/dl (70-99)
--- NOTE | 2024-09-03 07:41 | W.PN.HOSP.TC ---
Today's Communication/Plan
-
Pending upper GI endoscopy.
Stable hemoglobin
Trend H&H
Advance diet per GI.
Will discontinue fluids once patient is back on regular diet.
Assessment / Plan
Assessment / Plan
Assessment -58-year-old female with PMHx complicated for type II DM, chronic normocytic anemia, coarctation of aorta s/p stenting, stage III sacral decubitus ulcer, endometrial cancer, sigmoid diverticulitis with multiple bowel resections and recent
enterocutaneous fistula comes to hospital for sepsis due to intra-abdominal abscess with postop enterocutaneous fistula takedown procedure complicated by postop ileus.
Plan-
Sepsis secondary to intra-abdominal abscess-multiple -resolved.
S/p exploratory laparotomy, partial small bowel resection x 2, enterocutaneous fistula takedown by Dr. Farnsworth on 08/20.
S/p colostomy in March, colostomy reversal not performed due to sacral decubitus ulcer.
Fevers-08/14 8 AM, blood cultures negative. Leukocytosis resolved.
Repeat CT abdomen and pelvis-08/22-left upper abdominal fluid collection, no change compared to prior CT.
S/p aspiration of left abdominal fluid collection by IR on 08/22-45 cc serosanguineous fluid obtained,
IR drain cultures-72 hours-negative.
ID on board, continue antimicrobials ceftriaxone, daptomycin, micafungin, metronidazole per ID.
Appreciate ID inputs.
Repeat CT abdomen-showed stable intra-abdominal abscess-09/02/2024-largest dimension measuring 4 cm. Previous IR drain only 45 cc of serosanguineous fluid.
Anemia-
Acute on chronic, normocytic
S/p 2 units of PRBC transfusion on 08/23.
Last dose of Lovenox on 08/18.
Hemoglobin currently low at 6.2. S/p 2 units of blood transfusion on 09/02/2024.
GI consulted, plan is to obtain an endoscopy today.
Pending schedule for endoscopy, advance diet as tolerated per GI.
Postop ileus-
Resolved.
Off of NG tube, tolerating full liquids well, colorectal surgery advance diet to regular today.
Patient choked on her regular diet-eggs in the a.m. today.
Refuses solid diets, speech therapy consulted for oral dysphagia.
Speech therapy evaluation had no concerns for dysphagia.
Speech recommended bland solids and small amounts at a time until patient is able to tolerate regular textures and get over her anxiety.
New onset headaches-
History of Tigre cistern magna and allergies
Started patient on Claritin and saline nasal spray.
Offered to obtain a head CT but patient refuse quoting that she had a head CT in January.
Will update the patient on her head CT results.
Hypokalemia -
Resolved.
Repleted potassium in the am on 08/27/2024.
Perforated sigmoid diverticulitis-
S/p Caridad procedure, bowel resection x 2, colostomy formation, iatrogenic splenic capsular repair.
Continue ostomy care.
Colorectal surgery in follow-up, appreciate inputs.
Type 2 diabetes mellitus-
HbA1c at 6.6.
Hold Farxiga, continue SSI.
Currently blood sugars well-controlled.
Patient is advancing to regular diet, reassess her blood sugars in the a.m. tomorrow.
Essential hypertension-
Blood pressure has been labile during this hospital admission
Continue, metoprolol, amlodipine, losartan with holding parameters.
Hyperkalemia-
Resolved, spironolactone discontinued.
Hyperlipidemia-hold statin while on daptomycin.
Left upper quadrant perisplenic hematoma-
IR drain removed on 07/30/2024.
Left upper quadrant infected perisplenic hematoma
-Drain removed 07/30/2024
Essential Hypertension -blood pressure somewhat labile. Continue metoprolol, amlodipine. Resume losartan.
Hyperkalemia -spironolactone discontinued.
Stage III sacral decubitus wound-
prior to admission, continue local wound care.
Frequent position changes.
DVT prophylaxis-SCD.
CODE STATUS full code.
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
History of aortic coarctation
-s/p stent 20 years ago
Deconditioning
-Chronically ill complicated recent hospitalizations
-Uses walker at home
-PT/OT as tolerated
Endometrial cancer -s/p hysterectomy.
History of breast cancer
-S/p mastectomy and chemotherapy
Stage III sacral decubital wound -POA. Continue local wound care, offloading.
Obesity due to excess calories
Dispo -SNF recommended by PT. patient and family refused SNF. Will arrange for home visiting nurse, PT and OT.
Anticipated Discharge: > 48 hours
Subjective/Interval History
-
Date of Service: September 03, 2024
No complaints overnight, patient feels better.
Objective Data
-
Labs:
Laboratory Results
09/03/24 09/03/24 09/03/24
00:10 01:00 06:21
WBC 10.2
Hgb 8.5 L Cancelled 8.1 L
Hct 24.5 L
Plt Count 365
Sodium 138
Potassium 3.5
Chloride 107
Carbon Dioxide 24
BUN 12
Creatinine 0.4 L
Glucose 134 H
Calcium 8.1 L
09/03/24
12:00
WBC
Hgb Pending
Hct
Plt Count
Sodium
Potassium
Chloride
Carbon Dioxide
BUN
Creatinine
Glucose
Calcium
Vital Signs:
Vital Signs
Temp Pulse Resp BP Pulse Ox
98 F 103 17 151/68 98
09/02/24 23:42 09/02/24 23:42 09/02/24 23:42 09/02/24 23:42 12/10/24 02:53
I&O
09/02/24 09/03/24 09/04/24
06:59 06:59 06:59
Intake Total 1240 / 1240 2850 / 2850
Output Total 400 / 400 300 / 300
Balance 840 / 840 2550 / 2550
Review of Systems
-
History Source: Patient
Constitutional: Reports No Symptoms
EENT: Reports No Symptoms Reported
Respiratory: Reports No Symptoms
Cardiac: Reports No Symptoms
Abdomen/GI: Reports No Symptoms
Breast: Reports No Symptoms
Genitourinary: Reports No Symptoms
Musculoskeletal: Reports No Symptoms
Skin: Reports No Symptoms
Neuro: Reports No Symptoms
Endocrine: Reports No Symptoms
Allergy / Immunology: Reports No Symptoms
Physical Exam
-
General: No Apparent Distress and Comfortable
HEENT: Moist Mucous Membranes
Respiratory: Clear to Auscultation; Negative Wheezes, Rales, Rhonchi or Crackles
Cardiac: Regular Rhythm, S1/S2 and Murmur (Systolic murmur 3/6 aortic area.); Negative Rub, JVD or Gallop
GI: Soft, Nontender, Nondistended, Normal Bowel Sounds, Ostomy (Output noted,) and Other (Wound dressing clean and intact. No discharge or erythema)
Musculoskeletal: No Clubbing, No Cyanosis and No Edema
Skin: Warm
Neuro: Awake and No Motor Deficits
Psych: Calm
Data Reviewed
-
Diagnostic Radiology: Report Reviewed by me
Labs: Labs Reviewed by me, Discussed with Physician and Discussed with Nurse
--- NOTE | 2024-09-03 08:10 | W.PN.UPDATE ---
Update Note
Progress Note Update
I saw and evaluated the patient. I reviewed the resident�s note and agree with findings and plan as documented in the resident�s note.
No new complaints.
Gen: NAD, AAOx3.
Eyes: EOMI, PERRLA, no scleral icterus.
Neck: supple.
CV: remains RRR with frequent premature beats, +S1/S2, 2/6 systolic murmur
Resp: CTAB, no rales, wheezes, or rhonchi.
Abd: +BS, soft, NT to light palpation, ND
Skin: No rashes.
Neuro: CN 2-12 intact, non-focal.
Psych: Normal mood and affect.
08/22/24 10:40 Blood/Venous Blood Culture - Final
No Growth - Final Report
08/22/24 09:43 Blood/Venous Blood Culture - Final
No Growth - Final Report
08/22/24 16:20 Fluid Body Fluid Culture - Final
No Growth After 72 Hours
08/22/24 16:20 Fluid Gram Stain - Final
08/20/24 13:30 Abdomen Wound Culture - Final
Proteus mirabilis
Enterococcus faecium - VRE
Yeast
08/20/24 13:30 Abdomen Gram Stain - Final
08/20/24 13:30 Abdomen Anaerobic Culture - Final
08/10/24 04:08 Abdomen Wound Culture - Final
08/10/24 04:08 Abdomen Gram Stain - Final
CTA A/P 09/02/24:
1. No convincing evidence for active GI bleed.
2. Redemonstration of left upper abdomen fluid collection anterosuperior to the spleen measuring approximately 4.3 x 2.0 x 1.9 cm, decreased from prior.
3. Interval decrease in amount of partially loculated fluid tracking along the left paracolic gutter.
4. Interval increase in loculated lentiform fluid collection just deep to the anterior abdominal wall at the supraumbilical level measuring approximately 6.8 x 2.1 x 5.5 cm, likely seroma.
Melena:
-CTA A/P without active GIB
-NPO except meds
-IVFs
-cont PPI gtt
-Hb stable
-EGD today
Severe sepsis secondary to intra-abdominal abscess:
-S/p exploratory laparotomy with partial small bowel resection x 2 enteric cutaneous fistula takedown
-Abscess drain sent for culture which demonstrated Proteus VRE yeast
-Now on Rocephin, micafungin, daptomycin, and metronidazole (D12)
-ID following and follow CK hold statin while on daptomycin
-Provide antiemetics as needed for nausea
-Surgery following
Perforated sigmoid diverticulitis
-S/p Barbour's procedure bowel resection x 2 colostomy
-Continue ostomy care
-Outpatient colorectal surgery follow
Acute on chronic normocytic anemia:
-acute blood loss anemia likely related to perioperative bleeding
-s/p 2U pRBCs 09/02/24
Other problems:
Sinus pain: resolved, cont flonase/claritin
Postop ileus: Resolved
DM2: a1c 6.6%, SSI/accuchecks
Hypokalemia, resolved
Pt's son updated at bedside.
FULL/SCDs
Total time spent on today's encounter was 51 minutes which included time spent in counseling the patient/family regarding diagnosis and treatment plan as listed above, goals of care, and symptom management. Case was discussed with nursing staff,
specialists, and care coordinators/case management. All labs and imaging personally reviewed by me. Remainder the time spent in detailed review of previous records, lab data, imaging, and other medical provider documentation.
[2024-09-03] MEDS: NOVOLOG FLEXPEN-LOW RESISTANCE SC (08:48)
--- NOTE | 2024-09-03 09:34 | W.PN.ID1 ---
Date of Service
Date of Service: September 03, 2024
Today's Communication
Continue antibiotics.
Assessment / Plan
Suspected GI bleed
- for EGD today
Anterior right-midline abdominal collection/abscess
- s/p drain placement (06/10/24) and recent upsizing of drain (07/27/24)
- Abscess cultures 07/17: staph epi, strep species x 2 s/p Ertapenem (05/31 to 07/29)
- 08/20/24 s/p washout, SBR x 2 OR cx: Proteus , VRE, yeast
- 08/22/24 CT: new large fluid with bubbles from left lateral abd into soft tissue of pelvis
- 08/22/24 s/p IR aspiration of left abd fluid (no drain placed). Cx: No growth
Anterior midline lower abdominal incision drainage
- enteric fistula communication with underlying abscess
- cx 'few mixed skin negrito'. GNR's and GPC's seen on microscopy.
- S/P enteric fistula repair 08/20/24
LUQ intra-abdominal abscess
- hx post-op LUQ infected hematoma s/p perc drain, Cx Klebsiella pneumoniae, ESBL-Ecoli s/p Ertapenem (05/31 to 07/29)
-LUQ drain removed 07/27/24
- 08/[address] - stable size fluid collection
Hx Diverticulitis with diverticular perforation
- s/p diverting colostomy (05/22/2024).
- Intra-op splenic capsular tear with subsequent hematoma development
Recommendation:
Fever; improved
Continue daptomycin 500mg IV q24h (d#12). Monitor CK while on daptomycin.
Holding statin while on daptomycin.
Continue Micafungin (d#12)
Continue ceftriaxone and metronidazole. (d#12)
Would anticipate a 14-day course of antibiotics in total.
Follow temps, wbc.
Follow clinically.
����������������������������������������������������������
Chief Complaint
-: Other (Abd abscesses)
Subjective / Review of Systems
Patient seen and examined. Nursing reports ongoing dark stool from ostomy bag. Patient without fevers or chills.
Vital Signs / Physical Exam
Vital Signs
Vital Signs
Temp Pulse Resp BP Pulse Ox
99.1 F 103 16 193/99 96
09/03/24 07:00 09/03/24 07:00 09/03/24 07:00 09/03/24 07:00 09/03/24 07:00
Physical Exam
Constitutional: No Acute Distress, Comfortable and Non-toxic
Head: Normocephalic
Eyes: Sclera Anicteric
Pulmonary: Non Labored
Gastrointestinal: Soft, Non Distended and Other (Midline dressing intact. Ostomy in place with dark stool)
Extremities: Edema (trace)
Neurological: AO x 3
Psychological: Calm
Objective Data
Lab Data
Lab Results
09/03/24 06:21
PT 14.3 Sec (11.4-14.6) 08/20/24 08:08
INR 1.08 08/20/24 08:08
APTT 35.0 Sec (23.4-35.0) 08/20/24 08:08
Estimated Creat Clear 108 ml/min 09/03/24 06:21
Total Bilirubin 0.7 mg/dl (0.2-1.3) 08/24/24 07:52
AST 19 U/L (14-36) 08/24/24 07:52
ALT 11 U/L (0-35) 08/24/24 07:52
Alkaline Phosphatase 84 U/L (38-126) 08/24/24 07:52
Most recent labs reviewed.
Micro Results:
08/22/24 10:40 Blood Culture - Final
Blood/Venous No Growth - Final Report
08/22/24 09:43 Blood Culture - Final
Blood/Venous No Growth - Final Report
08/22/24 16:20 Body Fluid Culture - Final
Fluid No Growth After 72 Hours
Gram Stain - Final
08/20/24 13:30 Wound Culture - Final
Abdomen Proteus mirabilis
Enterococcus faecium - VRE
Yeast
Gram Stain - Final
08/20/24 13:30 Anaerobic Culture - Final
Abdomen
08/10/24 04:08 Wound Culture - Final
Abdomen Gram Stain - Final
Imaging:
08/22/24 CT a/p: Superior left upper abdominal abnormal fluid collection again seen, superior to the spleen, without overall significant change in size in appearance in comparison to most recent prior CT, as detailed above. Interval removal of
approximate midline anterior abdominal abscess catheter drainage with small volume residual fluid and air bubbles which could represent very small residual abscess. NEW LARGE ELONGATED CRESCENTIC AREA OF PREDOMINANTLY SIMPLE FLUID DENSITY WITH SOME
BUBBLES OF AIR extending from the left lateral abdomen into the soft tissues of the left lateral true pelvis amongst several loops of small bowel with thickened de la rosa, without definitive oral contrast within. This could represent a new infected
fluid collection.
[2024-09-03 09:48] VITALS: BP 110/76
--- NOTE | 2024-09-03 09:49 | W.PN.UPDATE ---
Addendum entered and electronically signed by Bello Quiles MD 09/03/24 14:08:
Patient seen and examined at bedside. Denies any issues since the endoscopy. No nausea/vomiting, no abdominal pain.
AFVSS, ABD soft, nondistended, nontender; dressings in place, ostomy pink and productive of dark green thick liquid stool
Hb 8.1 from 8.5
� Melanotic ostomy output and drop in Hb; concerning for upper GI bleed
-S/p endoscopy, negative for bleeding source; appreciate GI
�Hold DVT PPx, trend CBC, s/p pRBC x2
� Continue clears for today
� Continue pain control
�Appreciate ID; on micafungin, ceftriaxone and daptomycin
�OOB/IS, appreciate PT
� Appreciate hospitalist
Original Note:
Update Note
Progress Note Update
Attempted to round on patient - currently undergoing an EGD
[2024-09-03 09:54] LABS: Glucose - Point of Care 159 mg/dl (70-99)
[2024-09-03 10:00] VITALS: BP 137/80
[2024-09-03] MEDS: ATIVAN PO ×2 (10:48→21:11)
[2024-09-03] MEDS: NEURONTIN 100 MG PO ×3 (10:53→21:39)
[2024-09-03] MEDS: FEOSOL 325 MG PO (10:53)
[2024-09-03] MEDS: CLARITIN 10 MG PO (10:53)
[2024-09-03] MEDS: LOPRESSOR 100 MG PO ×2 (10:53→21:39)
[2024-09-03] MEDS: NORVASC 5 MG PO (10:53)
[2024-09-03] MEDS: LOW STRENGTH ASPIRIN 81 MG PO (10:54)
[2024-09-03] MEDS: COZAAR 25 MG PO ×2 (10:54→21:39)
[2024-09-03] MEDS: SANTYL OINTMENT 1 APPLIC TOPICAL ×2 (10:58→21:39)
[2024-09-03] MEDS: NOVOLOG FLEXPEN-LOW RESISTANCE 1 UNITS SC (11:09)
[2024-09-03 11:13] LABS: Glucose - Point of Care 175 mg/dl (70-99)
[2024-09-03] MEDS: NIZORAL 2% CREAM TOPICAL (13:16)
[2024-09-03] MEDS: STERILE WATER FOR INJECTION 20 ML IV (13:18)
[2024-09-03] MEDS: ROCEPHIN 2000 MG IV (13:19)
[2024-09-03] MEDS: NSS 1000 IV (13:20)
[2024-09-03] MEDS: CUBICIN 16.8 MG IV (13:20)
[2024-09-03] MEDS: MYCAMINE 105 MG IV (13:21)
--- NOTE | 2024-09-03 13:52 | CM ---
Patient for EGD today.
Hgb 8.1 - noon Hgb pending
Referral in [facility] for [facility]
PLAN: home, with [facility]
[2024-09-03 14:44] LABS: Hemoglobin 7.9 g/dL (12.0-16.0)
[2024-09-03 15:00] VITALS: BP 151/92
[2024-09-03] MEDS: NOVOLOG FLEXPEN-LOW RESISTANCE 3 UNITS SC (17:06)
[2024-09-03 17:10] LABS: Glucose - Point of Care 251 mg/dl (70-99)
[2024-09-03 22:59] LABS: Glucose - Point of Care 140 mg/dl (70-99)
[2024-09-03 23:05] VITALS: BP 140/75
[2024-09-04] MEDS: PROTONIX 100 IV (02:42)
[2024-09-04] MEDS: FLAGYL 500 MG PO ×3 (05:49→22:15)
[2024-09-04] MEDS: TYLENOL 1000 MG PO ×2 (05:49→16:53)
[2024-09-04 06:32] LABS: Hematocrit 26.6 % (37.0-47.0); Hemoglobin 8.7 g/dL (12.0-16.0); Mean Corp Hgb Conc. 32.7 g/dL (33.0-37.0); Mean Corpuscular Hgb 28.7 pg (27.0-31.0); Mean Corpuscular Volume 87.8 fL (81.0-99.0); Mean Platelet Volume 10.3 fL (7.4-10.4); Platelet Count 375 10^3/uL (130-400); Red Blood Cell Count 3.03 10^6/uL (4.20-5.40); Red Cell Dist. Width 17.1 % (11.5-14.5); White Blood Cell Count 9.6 10^3/uL (4.8-10.8)
[2024-09-04 07:00] VITALS: BP 179/92
[2024-09-04 07:02] LABS: Blood Urea Nitrogen 6 mg/dl (7-17); Calcium 8.4 mg/dl (8.4-10.2); Carbon Dioxide 25 mmol/L (22-30); Chloride 108 mmol/L (98-107); Estimated Creatinine Clearance 110 ml/min; Glucose 119 mg/dl (70-99); Potassium 3.4 mmol/L (3.5-5.1); Sodium 141 mmol/L (135-145); eGFR > 60.00
[2024-09-04] MEDS: ATIVAN PO ×2 (07:42→19:30)
[2024-09-04 07:43] LABS: Glucose - Point of Care 131 mg/dl (70-99)
[2024-09-04] MEDS: NOVOLOG FLEXPEN-LOW RESISTANCE SC (08:07)
[2024-09-04] MEDS: LOW STRENGTH ASPIRIN 81 MG PO (08:13)
[2024-09-04] MEDS: NEURONTIN 100 MG PO ×3 (08:13→22:15)
[2024-09-04] MEDS: NORVASC 5 MG PO (08:13)
[2024-09-04] MEDS: COZAAR 25 MG PO ×2 (08:13→21:00)
[2024-09-04] MEDS: NIZORAL 2% CREAM TOPICAL (08:13)
[2024-09-04] MEDS: FEOSOL 325 MG PO (08:13)
[2024-09-04] MEDS: SANTYL OINTMENT 1 APPLIC TOPICAL ×2 (08:13→20:59)
[2024-09-04] MEDS: CLARITIN 10 MG PO (08:13)
[2024-09-04] MEDS: LOPRESSOR 100 MG PO ×2 (08:13→20:58)
--- NOTE | 2024-09-04 08:16 | W.PN.CRS1 ---
Today's Communication / Plan
-
As below
Assessment/Plan
-
POD 12 ex lap, SBR x 2, takedown of enterocutaneous fistula
S/p EGD 09/03 - no upper GI bleeding source identified
AFVSS, ABD soft, nondistended, appropriately tender near midline; midline incision clean without erythema or purulent drainage; inferior portion packed
WBC 9.6 from 10.2, Hb 8.7 from 7.9
� Melanotic ostomy output and drop in Hb; concerning for upper GI bleed
-S/p endoscopy, negative for bleeding source; appreciate GI
�Hold DVT PPx, trend CBC daily, s/p pRBC x2
� Restart regular diet
� Continue pain control
�Appreciate ID; on micafungin, ceftriaxone and daptomycin
�OOB/IS, appreciate PT
� Appreciate hospitalist
Dispo- possible discharge tomorrow vs Monday
Subjective Data
Procedure
08/21- Exploratory laparotomy, Partial small bowel resection x2, Takedown of enterocutaneous fistula.
Subjective Data
Date of Service: September 04, 2024
No overnight events.
Pain controlled.
Denies nausea/vomiting. Tolerating clears.
+ Ostomy output +voiding
Objective Data
-
Vital Signs
Temp Pulse Resp BP Pulse Ox
97.8 F 87 18 179/92 98
09/04/24 07:00 09/04/24 07:00 09/04/24 07:00 09/04/24 07:00 09/04/24 07:00
Intake & Output
09/03/24 09/04/24 09/05/24
06:59 06:59 06:59
Intake Total 2850 / 2850 3420 / 3420
Output Total 300 / 300
Balance 2550 / 2550 3420 / 3420
Intake:
Oral fluids 1000 / 1000 1080 / 1080
IV fluids (Total) 680 / 680 2220 / 2220
IV piggybacks 170 / 170 120 / 120
Blood products 500 / 500
Blood Product Amount Infused ( 500 / 500
mL)
Packed Rbc Leukoreduced Unit 250 / 250
[id number]
Packed Rbc Leukoreduced Unit 250 / 250
[id number]
Output:
Liquid stool amount 300 / 300
Colostomy 300 / 300
Other:
Number of approximated MODERATE 3 4
amounts of urine
Number of approximated LARGE 1 2
amounts of urine
How many times incontinent 5
SATURATED amount urine
Lab Results
09/04/24 05:54
09/04/24 05:54
Physical Exam
-
General: No Acute Distress and AOx3
HEENT: Grossly Normal
Abdomen: Soft, Non Distended, Non Tender, No Guarding, No Rebound and Other (Ostomy pink with dark blackish/greenish output)
Skin: Warm and Dry
Wound: Other (Midline incision healing well, superiorly with intermittent gaps that are nearly closed; inferiorly, the wound is open and packed, clean with granulation)
[2024-09-04 08:30] VITALS: BP 158/92
--- NOTE | 2024-09-04 08:48 | W.PN.HOSP.TC ---
Today's Communication/Plan
-
Discontinue IVF
Switch to protonix BID
Continue antibiotics per ID
Monitor H and H
Assessment / Plan
Assessment / Plan
Assessment -58-year-old female with PMHx complicated for type II DM, chronic normocytic anemia, coarctation of aorta s/p stenting, stage III sacral decubitus ulcer, endometrial cancer, sigmoid diverticulitis with multiple bowel resections and recent
enterocutaneous fistula comes to hospital for sepsis due to intra-abdominal abscess with postop enterocutaneous fistula takedown procedure complicated by postop ileus.
Plan-
Sepsis secondary to intra-abdominal abscess-multiple -resolved.
S/p exploratory laparotomy, partial small bowel resection x 2, enterocutaneous fistula takedown by Dr. Farnsworth on 08/20.
S/p colostomy in March, colostomy reversal not performed due to sacral decubitus ulcer.
Fevers-08/14 8 AM, blood cultures negative. Leukocytosis resolved.
Repeat CT abdomen and pelvis-08/22-left upper abdominal fluid collection, no change compared to prior CT.
S/p aspiration of left abdominal fluid collection by IR on 08/22-45 cc serosanguineous fluid obtained,
IR drain cultures-72 hours-negative.
ID on board, continue antimicrobials ceftriaxone, daptomycin, micafungin, metronidazole per ID.
Appreciate ID inputs.
Repeat CT abdomen-showed stable intra-abdominal abscess-09/02/2024-largest dimension measuring 4 cm. Previous IR drain only 45 cc of serosanguineous fluid.
Anemia-
Acute on chronic, normocytic
S/p 2 units of PRBC transfusion on 08/23.
Last dose of Lovenox on 08/18.
Hemoglobin currently low at 6.2. S/p 2 units of blood transfusion on 09/02/2024.
GI consulted,endoscopy and enteroscopy on 09/02/24 - no evidence of bleeding. Hiatal hernia noted.
GI advanced diet to regular.
Discontinue IVF and protonix drip.
Switch to Protonic oral BID.
Postop ileus-
Resolved.
Off of NG tube, tolerating full liquids well, colorectal surgery advance diet to regular today.
Patient choked on her regular diet-eggs in the a.m. today.
Refuses solid diets, speech therapy consulted for oral dysphagia.
Speech therapy evaluation had no concerns for dysphagia.
Speech recommended bland solids and small amounts at a time until patient is able to tolerate regular textures and get over her anxiety.
New onset headaches-
History of Tigre cistern magna and allergies
Started patient on Claritin and saline nasal spray.
Offered to obtain a head CT but patient refuse quoting that she had a head CT in January.
Will update the patient on her head CT results.
Hypokalemia -
Resolved.
Repleted potassium in the am on 08/27/2024.
Perforated sigmoid diverticulitis-
S/p Caridad procedure, bowel resection x 2, colostomy formation, iatrogenic splenic capsular repair.
Continue ostomy care.
Colorectal surgery in follow-up, appreciate inputs.
Type 2 diabetes mellitus-
HbA1c at 6.6.
Hold Farxiga, continue SSI.
Currently blood sugars well-controlled.
Patient is advancing to regular diet, reassess her blood sugars in the a.m. tomorrow.
Essential hypertension-
Blood pressure has been labile during this hospital admission
Continue, metoprolol, amlodipine, losartan with holding parameters.
Hyperkalemia-
Resolved, spironolactone discontinued.
Hyperlipidemia-hold statin while on daptomycin.
Left upper quadrant perisplenic hematoma-
IR drain removed on 07/30/2024.
Left upper quadrant infected perisplenic hematoma
-Drain removed 07/30/2024
Essential Hypertension -blood pressure somewhat labile. Continue metoprolol, amlodipine. Resume losartan.
Hyperkalemia -spironolactone discontinued.
Stage III sacral decubitus wound-
prior to admission, continue local wound care.
Frequent position changes.
DVT prophylaxis-SCD.
CODE STATUS full code.
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
History of aortic coarctation
-s/p stent 20 years ago
Deconditioning
-Chronically ill complicated recent hospitalizations
-Uses walker at home
-PT/OT as tolerated
Endometrial cancer -s/p hysterectomy.
History of breast cancer
-S/p mastectomy and chemotherapy
Stage III sacral decubital wound -POA. Continue local wound care, offloading.
Obesity due to excess calories
Dispo -SNF recommended by PT. patient and family refused SNF. Will arrange for home visiting nurse, PT and OT.
Anticipated Discharge: 24 - 48 hours
Subjective/Interval History
-
Date of Service: September 04, 2024
Patient is doing fine. No complaints overnight
Objective Data
-
Labs:
Laboratory Results
09/04/24
05:54
WBC 9.6
Hgb 8.7 L
Hct 26.6 L
Plt Count 375
Sodium 141
Potassium 3.4 L
Chloride 108 H
Carbon Dioxide 25
BUN 6 L
Creatinine 0.4 L
Glucose 119 H
Calcium 8.4
Vital Signs:
Vital Signs
Temp Pulse Resp BP Pulse Ox
97.8 F 87 18 179/92 98
09/04/24 07:00 09/04/24 07:00 09/04/24 07:00 09/04/24 07:00 09/04/24 07:00
I&O
09/03/24 09/04/24 09/05/24
06:59 06:59 06:59
Intake Total 2850 / 2850 3420 / 3420
Output Total 300 / 300
Balance 2550 / 2550 3420 / 3420
Review of Systems
-
History Source: Patient
Constitutional: Reports No Symptoms
EENT: Reports No Symptoms Reported
Respiratory: Reports No Symptoms
Cardiac: Reports No Symptoms
Abdomen/GI: Reports No Symptoms
Breast: Reports No Symptoms
Genitourinary: Reports No Symptoms
Musculoskeletal: Reports No Symptoms
Skin: Reports No Symptoms
Neuro: Reports No Symptoms
Endocrine: Reports No Symptoms
Hematologic / Lymphatic: Reports No Symptoms
Physical Exam
-
General: No Apparent Distress and Comfortable
HEENT: Moist Mucous Membranes
Respiratory: Clear to Auscultation; Negative Wheezes, Rales or Rhonchi
Cardiac: Regular Rhythm, S1/S2 and Murmur (systolic, 3/6, best heard in aortic area)
Breast: Deferred by me
GI: Soft, Nontender, Nondistended, Normal Bowel Sounds and Ostomy (Dark in color, wound dressing clean and intact)
Musculoskeletal: No Clubbing, No Cyanosis and No Edema
Skin: Warm
Neuro: Awake and No Motor Deficits
Psych: Calm
Data Reviewed
-
Medical Tests (Nuc Med, Echo etc): Image personally visualized and interpreted, Report Reviewed by me and Discussed with Physician
Labs: Labs Reviewed by me, Discussed with Physician and Discussed with Nurse
--- NOTE | 2024-09-04 11:10 | W.PN.ID1 ---
Date of Service
Date of Service: September 04, 2024
Today's Communication
Sign off. Please call with any questions.
Assessment / Plan
Suspected GI bleed
- for EGD today
Anterior right-midline abdominal collection/abscess
- s/p drain placement (06/10/24) and recent upsizing of drain (07/27/24)
- Abscess cultures 07/17: staph epi, strep species x 2 s/p Ertapenem (05/31 to 07/29)
- 08/20/24 s/p washout, SBR x 2 OR cx: Proteus , VRE, yeast
- 08/22/24 CT: new large fluid with bubbles from left lateral abd into soft tissue of pelvis
- 08/22/24 s/p IR aspiration of left abd fluid (no drain placed). Cx: No growth
Anterior midline lower abdominal incision drainage
- enteric fistula communication with underlying abscess
- cx 'few mixed skin negrito'. GNR's and GPC's seen on microscopy.
- S/P enteric fistula repair 08/20/24
LUQ intra-abdominal abscess
- hx post-op LUQ infected hematoma s/p perc drain, Cx Klebsiella pneumoniae, ESBL-Ecoli s/p Ertapenem (05/31 to 07/29)
-LUQ drain removed 07/27/24
- 08/[address] - stable size fluid collection
Hx Diverticulitis with diverticular perforation
- s/p diverting colostomy (05/22/2024).
- Intra-op splenic capsular tear with subsequent hematoma development
Recommendation:
Fever; improved
Continue daptomycin 500mg IV q24h (d#13). Monitor CK while on daptomycin.
Holding statin while on daptomycin.
Continue Micafungin (d#13)
Continue ceftriaxone and metronidazole. (d#13)
Will complete a 14-day course of antibiotics in total.
Little more to offer from a Infectious Diseases standpoint.
Will see again at your request.
����������������������������������������������������������
Chief Complaint
-: Other (Abd abscesses)
Subjective / Review of Systems
Review of Systems: No Fever and No Chills
Vital Signs / Physical Exam
Vital Signs
Vital Signs
Temp Pulse Resp BP Pulse Ox
97.8 F 87 18 179/92 98
09/04/24 07:00 09/04/24 07:00 09/04/24 07:00 09/04/24 07:00 09/04/24 07:00
Physical Exam
Constitutional: No Acute Distress, Comfortable and Non-toxic
Head: Normocephalic
Eyes: Sclera Anicteric
Pulmonary: Non Labored
Gastrointestinal: Soft, Non Distended and Other (Midline dressing intact. Ostomy in place with dark stool)
Extremities: Edema (trace)
Neurological: AO x 3
Psychological: Calm
Objective Data
Lab Data
Lab Results
09/04/24 05:54
09/04/24 05:54
PT 14.3 Sec (11.4-14.6) 08/20/24 08:08
INR 1.08 08/20/24 08:08
APTT 35.0 Sec (23.4-35.0) 08/20/24 08:08
Estimated Creat Clear 110 ml/min 09/04/24 05:54
Total Bilirubin 0.7 mg/dl (0.2-1.3) 08/24/24 07:52
AST 19 U/L (14-36) 08/24/24 07:52
ALT 11 U/L (0-35) 08/24/24 07:52
Alkaline Phosphatase 84 U/L (38-126) 08/24/24 07:52
Most recent labs reviewed.
Micro Results:
08/22/24 10:40 Blood Culture - Final
Blood/Venous No Growth - Final Report
08/22/24 09:43 Blood Culture - Final
Blood/Venous No Growth - Final Report
08/22/24 16:20 Body Fluid Culture - Final
Fluid No Growth After 72 Hours
Gram Stain - Final
08/20/24 13:30 Wound Culture - Final
Abdomen Proteus mirabilis
Enterococcus faecium - VRE
Yeast
Gram Stain - Final
08/20/24 13:30 Anaerobic Culture - Final
Abdomen
08/10/24 04:08 Wound Culture - Final
Abdomen Gram Stain - Final
Imaging:
08/22/24 CT a/p: Superior left upper abdominal abnormal fluid collection again seen, superior to the spleen, without overall significant change in size in appearance in comparison to most recent prior CT, as detailed above. Interval removal of
approximate midline anterior abdominal abscess catheter drainage with small volume residual fluid and air bubbles which could represent very small residual abscess. NEW LARGE ELONGATED CRESCENTIC AREA OF PREDOMINANTLY SIMPLE FLUID DENSITY WITH SOME
BUBBLES OF AIR extending from the left lateral abdomen into the soft tissues of the left lateral true pelvis amongst several loops of small bowel with thickened de la rosa, without definitive oral contrast within. This could represent a new infected
fluid collection.
[2024-09-04 11:25] LABS: Glucose - Point of Care 196 mg/dl (70-99)
--- NOTE | 2024-09-04 11:42 | W.PN.GI.CBS2 ---
Today's Communication / Plan
-
trend HH
on regular diet
Assessment / Plan
-
Pt is a 58yo presents with hx NIDDM on unjaro, HTN, hyperlipidemia, coarctation of aorta and aortic stenting, endometrial and breast CA chemo and surgery but no prior radiation, and complicated diverticulitis with recurrent admission since April
ex laparotomy with Barbour's resection and colostomy on 05/22/2024 with extensive stay til June with intra-abdominal abscesses requiring drainage,splenic hematoma and this admission with enterocutaneous fistula with takedown. Now with drop in
hbg. She has required 4 units PRBC's last week month. Stool dark heme + in ostomy with normal BUN. She did have stable colonoscopy with poor prep prior to OR. She was preparing for discharge but now noted with drop in hbg from 10.1 on 08/28 to 6.2
09/02 with dark heme + stool in ostomy bag. She has required 4 units PRBC on prior admission with periodic drops. Last Ct completed 08/22 with stable left upper abdomen collection, removal of midline anterior abscess catheter with small residual
abscess and new left enlongated crescentic area of simple fluid left abdomen.
-melena
-anemia
-complicated diverticulitis with barbour's resection/colostomy/intraabd abscess/splenic hematoma
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
-sacral decub
other med problems:
-NIDDM on Mounjaro prior to admission
-HTN
-hyperlipidemia
-coarctation of aorta with prior stenting
-endometrial/breast CA with chemo/surgery no prior radiation
PLAN:
Status post enteroscopy yesterday with no obvious source of bleeding found
may need bleeding scan if continues to bleed, CTA unable to localize since not brisk enough bleeding, ? from anastamosis/small bowel angiecatasias
Hemoglobin stable posttransfusion
Still has melanotic stool in the bag but could be old blood since hemoglobin remained stable
Continue to trend hh
Would give her a slip at the time of discharge to check H&H or CBC q. weekly for the next 2 to 3 weeks
Will sign off and will be available as needed
Subjective
Subjective
Date of Service: September 04, 2024
Still has dark stool in the bag but hemoglobin remains stable, denies any abdominal pain, status post small bowel enteroscopy yesterday with no obvious source of bleeding
Objective
Data Reviewed
Laboratory Data:
Laboratory Results
09/04/24 05:54
09/04/24 05:54
Laboratory Results
PT 14.3 Sec (11.4-14.6) 08/20/24 08:08
INR 1.08 08/20/24 08:08
APTT 35.0 Sec (23.4-35.0) 08/20/24 08:08
Phosphorus 3.5 mg/dl (2.5-4.5) 08/24/24 07:52
Magnesium 1.6 mg/dl (1.6-2.3) 08/29/24 05:08
Total Bilirubin 0.7 mg/dl (0.2-1.3) 08/24/24 07:52
AST 19 U/L (14-36) 08/24/24 07:52
ALT 11 U/L (0-35) 08/24/24 07:52
Alkaline Phosphatase 84 U/L (38-126) 08/24/24 07:52
Vital Signs and I&O:
Vital Signs
Temp Pulse Resp BP Pulse Ox
97.8 F 87 18 179/92 98
09/04/24 07:00 09/04/24 07:00 09/04/24 07:00 09/04/24 07:00 09/04/24 07:00
I&O
09/03/24 09/04/24 09/05/24
06:59 06:59 06:59
Intake Total 2850 / 2850 3420 / 3420
Output Total 300 / 300
Balance 2550 / 2550 3420 / 3420
09/02/24 CTA abd/pelvis
IMPRESSION:
1. No convincing evidence for active GI bleed.
2. Redemonstration of left upper abdomen fluid collection anterosuperior to the spleen measuring approximately 4.3 x 2.0 x 1.9 cm, decreased from prior.
3. Interval decrease in amount of partially loculated fluid tracking along the left paracolic gutter.
4. Interval increase in loculated lentiform fluid collection just deep to the anterior abdominal wall at the supraumbilical level measuring approximately 6.8 x 2.1 x 5.5 cm, likely seroma.
Physical Exam
Physical Exam
Cardiology: Normal Sinus Rhythm
Pulmonary: Clear
GI: Soft, Non Distended, Non Tender, Normal Bowel Sounds and Other (Colostomy with dark stool)
[2024-09-04] MEDS: CUBICIN 16.8 MG IV (11:49)
[2024-09-04] MEDS: STERILE WATER FOR INJECTION 20 ML IV (11:54)
[2024-09-04] MEDS: ROCEPHIN 2000 MG IV (11:55)
[2024-09-04] MEDS: MYCAMINE 105 MG IV (11:59)
[2024-09-04] MEDS: NOVOLOG FLEXPEN-LOW RESISTANCE 2 UNITS SC (12:01)
[2024-09-04] MEDS: TYLENOL PO (12:03)
--- NOTE | 2024-09-04 12:32 | W.PN.UPDATE ---
Update Note
Progress Note Update
I saw and evaluated the patient. I reviewed the resident�s note and agree with findings and plan as documented in the resident�s note.
No new complaints.
Gen: NAD, AAOx3.
Eyes: EOMI, PERRLA, no scleral icterus.
Neck: supple.
CV: remains RRR with frequent premature beats, +S1/S2, 2/6 systolic murmur
Resp: CTAB, no rales, wheezes, or rhonchi.
Abd: +BS, soft, NT to light palpation, ND
Skin: No rashes.
Neuro: CN 2-12 intact, non-focal.
Psych: Normal mood and affect.
08/22/24 10:40 Blood/Venous Blood Culture - Final
No Growth - Final Report
08/22/24 09:43 Blood/Venous Blood Culture - Final
No Growth - Final Report
08/22/24 16:20 Fluid Body Fluid Culture - Final
No Growth After 72 Hours
08/22/24 16:20 Fluid Gram Stain - Final
08/20/24 13:30 Abdomen Wound Culture - Final
Proteus mirabilis
Enterococcus faecium - VRE
Yeast
08/20/24 13:30 Abdomen Gram Stain - Final
08/20/24 13:30 Abdomen Anaerobic Culture - Final
08/10/24 04:08 Abdomen Wound Culture - Final
08/10/24 04:08 Abdomen Gram Stain - Final
CTA A/P 09/02/24:
1. No convincing evidence for active GI bleed.
2. Redemonstration of left upper abdomen fluid collection anterosuperior to the spleen measuring approximately 4.3 x 2.0 x 1.9 cm, decreased from prior.
3. Interval decrease in amount of partially loculated fluid tracking along the left paracolic gutter.
4. Interval increase in loculated lentiform fluid collection just deep to the anterior abdominal wall at the supraumbilical level measuring approximately 6.8 x 2.1 x 5.5 cm, likely seroma.
EGD 09/03/24: Normal esophagus. Medium-sized hiatal hernia. Normal examined duodenum. The examined portion of the jejunum was normal. No specimens collected.
Melena:
-CTA A/P without active GIB
-Small bowel enteroscopy done 09/03/24 without source of bleeding as above
-Hb remains stable s/p pRBCs
-stop PPI gtt, transition to PPI BID
-discussed with GI
Severe sepsis secondary to intra-abdominal abscess:
-S/p exploratory laparotomy with partial small bowel resection x 2 enteric cutaneous fistula takedown
-Abscess drain sent for culture which demonstrated Proteus VRE yeast
-Now on Rocephin, micafungin, daptomycin, and metronidazole (D13/14)
-ID following and follow CK hold statin while on daptomycin
-Provide antiemetics as needed for nausea
-Surgery following
Perforated sigmoid diverticulitis
-S/p Barbour's procedure bowel resection x 2 colostomy
-Continue ostomy care
-Outpatient colorectal surgery follow
Acute on chronic normocytic anemia:
-acute blood loss anemia likely related to perioperative bleeding (earlier during this prolonged hospitalization)
-s/p 4U pRBCs this admission
Other problems:
Sinus pain: resolved, cont flonase/claritin
Postop ileus: Resolved
DM2: a1c 6.6%, SSI/accuchecks
Hypokalemia, resolved
Obesity due to excess calories
Pt's son updated at bedside.
FULL/SCDs
Dispo: Goal for d/c 09/06/24
[2024-09-04 15:00] VITALS: BP 190/86
[2024-09-04 16:30] LABS: Glucose - Point of Care 192 mg/dl (70-99)
[2024-09-04] MEDS: NOVOLOG FLEXPEN-LOW RESISTANCE 1 UNITS SC (16:34)
[2024-09-04 16:48] VITALS: BP 180/94
[2024-09-04] MEDS: APRESOLINE 5 MG IV (16:49)
[2024-09-04] MEDS: PROTONIX 40 MG PO (20:57)
[2024-09-04 21:45] LABS: Glucose - Point of Care 168 mg/dl (70-99)
[2024-09-04 23:10] VITALS: BP 167/83
[2024-09-05] MEDS: TYLENOL 1000 MG PO ×4 (00:54→18:08)
[2024-09-05] MEDS: APRESOLINE 5 MG IV (00:55)
[2024-09-05 05:04] LABS: Hematocrit 26.1 % (37.0-47.0); Hemoglobin 8.4 g/dL (12.0-16.0); Mean Corp Hgb Conc. 32.2 g/dL (33.0-37.0); Mean Corpuscular Hgb 28.9 pg (27.0-31.0); Mean Corpuscular Volume 89.7 fL (81.0-99.0); Platelet Count 332 10^3/uL (130-400); Red Blood Cell Count 2.91 10^6/uL (4.20-5.40); Red Cell Dist. Width 17.4 % (11.5-14.5); White Blood Cell Count 8.3 10^3/uL (4.8-10.8)
[2024-09-05 05:30] LABS: Blood Urea Nitrogen 8 mg/dl (7-17); Calcium 8.4 mg/dl (8.4-10.2); Carbon Dioxide 25 mmol/L (22-30); Chloride 105 mmol/L (98-107); Estimated Creatinine Clearance 110 ml/min; Glucose 132 mg/dl (70-99); Potassium 3.1 mmol/L (3.5-5.1); Sodium 138 mmol/L (135-145); eGFR > 60.00
[2024-09-05 06:00] VITALS: BMI 29.2
[2024-09-05] MEDS: FLAGYL 500 MG PO ×3 (06:07→23:01)
[2024-09-05 07:10] VITALS: BP 154/74
--- NOTE | 2024-09-05 07:50 | W.PN.HOSP.TC ---
Today's Communication/Plan
-
Continue current management.
Assessment / Plan
Assessment / Plan
Assessment -58-year-old female with PMHx complicated for type II DM, chronic normocytic anemia, coarctation of aorta s/p stenting, stage III sacral decubitus ulcer, endometrial cancer, sigmoid diverticulitis with multiple bowel resections and
recent enterocutaneous fistula comes to hospital for sepsis due to intra-abdominal abscess with postop enterocutaneous fistula takedown procedure complicated by postop ileus.
Plan-
Sepsis secondary to intra-abdominal abscess-multiple -resolved.
S/p exploratory laparotomy, partial small bowel resection x 2, enterocutaneous fistula takedown by Dr. Farnsworth on 08/20.
S/p colostomy in March, colostomy reversal not performed due to sacral decubitus ulcer.
Fevers-08/14 8 AM, blood cultures negative. Leukocytosis resolved.
Repeat CT abdomen and pelvis-08/22-left upper abdominal fluid collection, no change compared to prior CT.
S/p aspiration of left abdominal fluid collection by IR on 08/22-45 cc serosanguineous fluid obtained,
IR drain cultures-72 hours-negative.
ID on board, continue antimicrobials ceftriaxone, daptomycin, micafungin, metronidazole per ID.
Appreciate ID inputs.
Repeat CT abdomen-showed stable intra-abdominal abscess-09/02/2024-largest dimension measuring 4 cm. Previous IR drain only 45 cc of serosanguineous fluid.
Anemia-
Acute on chronic, normocytic
S/p 2 units of PRBC transfusion on 08/23.
Last dose of Lovenox on 08/18.
Hemoglobin currently low at 6.2. S/p 2 units of blood transfusion on 09/02/2024.
GI consulted,endoscopy and enteroscopy on 09/02/24 - no evidence of bleeding. Hiatal hernia noted.
GI advanced diet to regular.
Discontinue IVF and protonix drip.
Switch to Protonic oral BID.
Postop ileus-
Resolved.
Off of NG tube, tolerating full liquids well, colorectal surgery advance diet to regular today.
Patient choked on her regular diet-eggs in the a.m. today.
Refuses solid diets, speech therapy consulted for oral dysphagia.
Speech therapy evaluation had no concerns for dysphagia.
Speech recommended bland solids and small amounts at a time until patient is able to tolerate regular textures and get over her anxiety.
New onset headaches-
History of Tigre cistern magna and allergies
Started patient on Claritin and saline nasal spray.
Offered to obtain a head CT but patient refuse quoting that she had a head CT in January.
Will update the patient on her head CT results.
Hypokalemia -
Resolved.
Repleted potassium in the am on 08/27/2024.
Perforated sigmoid diverticulitis-
S/p Caridad procedure, bowel resection x 2, colostomy formation, iatrogenic splenic capsular repair.
Continue ostomy care.
Colorectal surgery in follow-up, appreciate inputs.
Type 2 diabetes mellitus-
HbA1c at 6.6.
Hold Farxiga, continue SSI.
Currently blood sugars well-controlled.
Patient is advancing to regular diet, reassess her blood sugars in the a.m. tomorrow.
Essential hypertension-
Blood pressure has been labile during this hospital admission
Continue, metoprolol, amlodipine, losartan with holding parameters.
Hyperkalemia-
Resolved, spironolactone discontinued.
Hyperlipidemia-hold statin while on daptomycin.
Left upper quadrant perisplenic hematoma-
IR drain removed on 07/30/2024.
Left upper quadrant infected perisplenic hematoma
-Drain removed 07/30/2024
Essential Hypertension -blood pressure somewhat labile. Continue metoprolol, amlodipine. Resume losartan.
Hyperkalemia -spironolactone discontinued.
Stage III sacral decubitus wound-
prior to admission, continue local wound care.
Frequent position changes.
DVT prophylaxis-SCD.
CODE STATUS full code.
Conditions [employer]-
History of aortic coarctation
-s/p stent 20 years ago
Deconditioning
-Chronically ill complicated recent hospitalizations
-Uses walker at home
-PT/OT as tolerated
Endometrial cancer -s/p hysterectomy.
History of breast cancer
-S/p mastectomy and chemotherapy
Stage III sacral decubital wound -POA. Continue local wound care, offloading.
Obesity due to excess calories
Dispo -SNF recommended by PT. patient and family refused SNF. Will arrange for home visiting nurse, PT and OT.
Anticipated Discharge: 24 - 48 hours
Subjective/Interval History
-
Date of Service: September 05, 2024
No complaints today.
Objective Data
-
Labs:
Laboratory Results
09/05/24
04:44
WBC 8.3
Hgb 8.4 L
Hct 26.1 L
Plt Count 332
Sodium 138
Potassium 3.1 L
Chloride 105
Carbon Dioxide 25
BUN 8
Creatinine 0.4 L
Glucose 132 H
Calcium 8.4
Vital Signs:
Vital Signs
Temp Pulse Resp BP Pulse Ox
98.6 F 84 16 180/85 98
09/04/24 23:10 09/05/24 00:55 09/04/24 23:10 09/05/24 00:55 09/04/24 23:10
I&O
09/04/24 09/05/24 09/06/24
06:59 06:59 06:59
Intake Total 3420 / 3420 480 / 480
Output Total 150 / 150
Balance 3420 / 3420 330 / 330
Review of Systems
-
History Source: Family
Constitutional: Reports No Symptoms
Respiratory: Reports No Symptoms
Cardiac: Reports No Symptoms
Abdomen/GI: Reports No Symptoms
Breast: Reports No Symptoms
Genitourinary: Reports No Symptoms
Musculoskeletal: Reports No Symptoms
Skin: Reports No Symptoms
Neuro: Reports No Symptoms
Endocrine: Reports No Symptoms
Hematologic / Lymphatic: Reports No Symptoms
Allergy / Immunology: Reports No Symptoms
Data Reviewed
-
Labs: Labs Reviewed by me, Discussed with Physician and Discussed with Nurse
[2024-09-05 08:18] LABS: Glucose - Point of Care 159 mg/dl (70-99)
--- NOTE | 2024-09-05 09:41 | W.PN.UPDATE ---
Update Note
Progress Note Update
I saw and evaluated the patient. I reviewed the resident�s note and agree with findings and plan as documented in the resident�s note.
No new complaints.
Gen: remains NAD, AAOx3.
Eyes: EOMI, PERRLA, no scleral icterus.
Neck: supple.
CV: continues to remain RRR with frequent premature beats, +S1/S2, 2/6 systolic murmur
Resp: CTAB, no rales, wheezes, or rhonchi.
Abd: remains +BS, soft, NT to light palpation, ND
Skin: No rashes.
Neuro: CN 2-12 intact, non-focal.
Psych: Normal mood and affect.
08/22/24 10:40 Blood/Venous Blood Culture - Final
No Growth - Final Report
08/22/24 09:43 Blood/Venous Blood Culture - Final
No Growth - Final Report
08/22/24 16:20 Fluid Body Fluid Culture - Final
No Growth After 72 Hours
08/22/24 16:20 Fluid Gram Stain - Final
08/20/24 13:30 Abdomen Wound Culture - Final
Proteus mirabilis
Enterococcus faecium - VRE
Yeast
08/20/24 13:30 Abdomen Gram Stain - Final
08/20/24 13:30 Abdomen Anaerobic Culture - Final
08/10/24 04:08 Abdomen Wound Culture - Final
08/10/24 04:08 Abdomen Gram Stain - Final
CTA A/P 09/02/24:
1. No convincing evidence for active GI bleed.
2. Redemonstration of left upper abdomen fluid collection anterosuperior to the spleen measuring approximately 4.3 x 2.0 x 1.9 cm, decreased from prior.
3. Interval decrease in amount of partially loculated fluid tracking along the left paracolic gutter.
4. Interval increase in loculated lentiform fluid collection just deep to the anterior abdominal wall at the supraumbilical level measuring approximately 6.8 x 2.1 x 5.5 cm, likely seroma.
EGD 09/03/24: Normal esophagus. Medium-sized hiatal hernia. Normal examined duodenum. The examined portion of the jejunum was normal. No specimens collected.
Melena:
-CTA A/P without active GIB
-Small bowel enteroscopy done 09/03/24 without source of bleeding as above
-Hb remains stable s/p pRBCs
-stop PPI gtt, transition to PPI BID
-discussed with GI
Severe sepsis secondary to intra-abdominal abscess:
-S/p exploratory laparotomy with partial small bowel resection x 2 enteric cutaneous fistula takedown
-Abscess drain sent for culture which demonstrated Proteus VRE yeast
-Now on Rocephin, micafungin, daptomycin, and metronidazole (D1414)
-ID following and follow CK hold statin while on daptomycin
-Provide antiemetics as needed for nausea
-Surgery following
Perforated sigmoid diverticulitis
-S/p Barbour's procedure bowel resection x 2 colostomy
-Continue ostomy care
-Outpatient colorectal surgery follow
Acute on chronic normocytic anemia:
-acute blood loss anemia likely related to perioperative bleeding (earlier during this prolonged hospitalization)
-s/p 4U pRBCs this admission
Other problems:
Essential HTN: Increase Losartan back to 50mg BID
Sinus pain: resolved, cont flonase/claritin
Postop ileus: Resolved
DM2: a1c 6.6%, SSI/accuchecks
Hypokalemia, replete, check Mg
Obesity due to excess calories
Pt's son updated at bedside.
FULL/SCDs
Dispo: Goal for d/c 09/06/24
[2024-09-05] MEDS: NOVOLOG FLEXPEN-LOW RESISTANCE 1 UNITS SC ×3 (09:49→18:07)
[2024-09-05] MEDS: SANTYL OINTMENT 1 APPLIC TOPICAL ×2 (09:50→20:04)
[2024-09-05] MEDS: PROTONIX 40 MG PO ×2 (09:51→20:03)
[2024-09-05] MEDS: LOPRESSOR 100 MG PO ×2 (09:51→20:04)
[2024-09-05] MEDS: CLARITIN 10 MG PO (09:52)
[2024-09-05] MEDS: NEURONTIN 100 MG PO ×3 (09:52→23:01)
[2024-09-05] MEDS: FEOSOL 325 MG PO (09:52)
[2024-09-05] MEDS: LOW STRENGTH ASPIRIN 81 MG PO (09:52)
[2024-09-05] MEDS: NIZORAL 2% CREAM TOPICAL (09:52)
[2024-09-05] MEDS: NORVASC 5 MG PO (09:52)
[2024-09-05] MEDS: COZAAR 25 MG PO (09:52)
[2024-09-05] MEDS: ATIVAN PO ×2 (09:52→20:02)
[2024-09-05 10:18] LABS: Magnesium 1.5 mg/dl (1.6-2.3)
--- NOTE | 2024-09-05 10:45 | W.PN.CRS1 ---
Today's Communication / Plan
-
continue diet
dispo planning
follow up in the office in a few weeks with Dr. Farnsworth
Assessment/Plan
-
POD 13 ex lap, SBR x 2, takedown of enterocutaneous fistula
S/p EGD 09/03 - no upper GI bleeding source identified
AFVSS, ABD soft, nondistended, appropriately tender near midline; midline incision clean without erythema or purulent drainage; inferior portion packed
WBC 8.3, Hgb 8.4 (8.7)
� Melanotic ostomy output and drop in Hb; concerning for upper GI bleed
-S/p endoscopy, negative for bleeding source; appreciate GI
�Okay to restart lovenox, trend hemoglobin
�Continue regular diet
� Continue pain control
�Appreciate ID; on micafungin, ceftriaxone and daptomycin
�OOB/IS, appreciate PT
�Appreciate hospitalist
-Dispo- home with RN, anticipate the next day or two
-Will need close follow up with labs - 7 to 10 days
-Follow up with Dr. Farnsworth 2-4 weeks
Subjective Data
Procedure
08/21- Exploratory laparotomy, Partial small bowel resection x2, Takedown of enterocutaneous fistula.
Subjective Data
Date of Service: September 05, 2024
Patient states she feels 'good'. She currently has no complaints. She is tolerating a diet. Her ostomy is producing stool.
Objective Data
-
Vital Signs
Temp Pulse Resp BP Pulse Ox
98.3 F 98 17 154/74 96
09/05/24 07:10 09/05/24 07:10 09/05/24 07:10 09/05/24 09:52 09/05/24 07:10
Intake & Output
09/04/24 09/05/24 09/06/24
06:59 06:59 06:59
Intake Total 3420 / 3420 480 / 480
Output Total 150 / 150
Balance 3420 / 3420 330 / 330
Intake:
Oral fluids 1080 / 1080 480 / 480
IV fluids (Total) 2219 / 0
IV piggybacks 120 / 120
Output:
Liquid stool amount 150 / 150
Colostomy 150 / 150
Other:
Number of approximated MODERATE 4 3
amounts of urine
Number of approximated LARGE 2 1
amounts of urine
How many times incontinent 1
SMALL amount urine
How many times incontinent 5
SATURATED amount urine
Number of unmeasured liquid
stools
Colostomy 2
Lab Results
09/05/24 04:44
09/05/24 04:44
Physical Exam
-
General: No Acute Distress and AOx3
Abdomen: Soft, Non Distended, Non Tender and Other (ostomy warm and pink with function)
Wound: Dressing in Place
[2024-09-05 12:30] LABS: Glucose - Point of Care 183 mg/dl (70-99)
[2024-09-05] MEDS: CUBICIN 16.8 MG IV (13:28)
[2024-09-05] MEDS: MYCAMINE 105 MG IV (13:29)
[2024-09-05] MEDS: STERILE WATER FOR INJECTION 20 ML IV (13:29)
[2024-09-05] MEDS: ROCEPHIN 2000 MG IV (13:29)
[2024-09-05 15:05] VITALS: BP 159/87
--- NOTE | 2024-09-05 17:00 | CM ---
Patient seen at bedside.
hgb 8.4
Patient refuses hospital bed, states son has script if she changes her mind.
Patient tentative discharge tomorrow.
No IMM needed
PT rec HH
[facility] referral in [facility]
PLAN: home with [facility]
son to transport
--- NOTE | 2024-09-05 17:10 | WOUNDNOTE ---
[facility] RN note: Patient's sacral/coccyx ulcer with less yellow fibrin, improved. Dressing applied. Skin on heels intact. Patient is on a [employer] air bed and has air chair cushions. Nursing assisting with routine colostomy appliance changes. VN
planned when discharged. Patient for tentative discharge tomorrow. She sleeps in an electric chair lift recliner. Instructed patient to take home air chair cushions. Ostomy supplies in room. Left more wafers ([employer] #[id number]) and Mario seals.
Patient turned to L semi side lying position. Heels off bed with pillow. Patient can turn self in bed and gets out of bed. Suggested patient to follow up at [facility].
[2024-09-05 17:44] LABS: Glucose - Point of Care 199 mg/dl (70-99)
[2024-09-05] MEDS: COZAAR 50 MG PO (20:03)
[2024-09-05 21:06] VITALS: BP 181/96
[2024-09-05 21:16] LABS: Glucose - Point of Care 224 mg/dl (70-99)
[2024-09-05] MEDS: TYLENOL PO (23:10)
[2024-09-05 23:22] VITALS: BP 137/63
--- NOTE | 2024-09-06 05:12 | PTCARENOTE ---
Pt hypertensive at start of shift, BP 180/86, 93, asymptomatic. Scheduled cozaar and lopressor given with + effect.( see documented VS).
[2024-09-06 06:00] VITALS: BMI 29.0
[2024-09-06] MEDS: TYLENOL 1000 MG PO ×2 (06:08→13:21)
[2024-09-06 07:20] VITALS: BP 182/99
--- NOTE | 2024-09-06 08:22 | W.PN.UPDATE ---
Update Note
Progress Note Update
I saw and evaluated the patient. I reviewed the resident�s note and agree with findings and plan as documented in the resident�s note.
No new complaints.
Gen: remains NAD, AAOx3.
Eyes: EOMI, PERRLA, no scleral icterus.
Neck: supple.
CV: RRR, +S1/S2, 2/6 systolic murmur
Resp: remains CTAB, no rales, wheezes, or rhonchi.
Abd: continues to remain +BS, soft, NT to light palpation, ND
Skin: No rashes.
Neuro: CN 2-12 intact, non-focal.
Psych: Normal mood and affect.
08/22/24 10:40 Blood/Venous Blood Culture - Final
No Growth - Final Report
08/22/24 09:43 Blood/Venous Blood Culture - Final
No Growth - Final Report
08/22/24 16:20 Fluid Body Fluid Culture - Final
No Growth After 72 Hours
08/22/24 16:20 Fluid Gram Stain - Final
08/20/24 13:30 Abdomen Wound Culture - Final
Proteus mirabilis
Enterococcus faecium - VRE
Yeast
08/20/24 13:30 Abdomen Gram Stain - Final
08/20/24 13:30 Abdomen Anaerobic Culture - Final
08/10/24 04:08 Abdomen Wound Culture - Final
08/10/24 04:08 Abdomen Gram Stain - Final
CTA A/P 09/02/24:
1. No convincing evidence for active GI bleed.
2. Redemonstration of left upper abdomen fluid collection anterosuperior to the spleen measuring approximately 4.3 x 2.0 x 1.9 cm, decreased from prior.
3. Interval decrease in amount of partially loculated fluid tracking along the left paracolic gutter.
4. Interval increase in loculated lentiform fluid collection just deep to the anterior abdominal wall at the supraumbilical level measuring approximately 6.8 x 2.1 x 5.5 cm, likely seroma.
EGD 09/03/24: Normal esophagus. Medium-sized hiatal hernia. Normal examined duodenum. The examined portion of the jejunum was normal. No specimens collected.
Melena:
-CTA A/P without active GIB
-Small bowel enteroscopy done 09/03/24 without source of bleeding as above
-Hb remains stable s/p pRBCs
-was on PPI gtt, now transitioned to PPI BID
-discussed with GI
Severe sepsis secondary to intra-abdominal abscess:
-S/p exploratory laparotomy with partial small bowel resection x 2 enteric cutaneous fistula takedown
-Abscess drain sent for culture which demonstrated Proteus VRE yeast
-completed 14 days abx with Rocephin, micafungin, daptomycin, and metronidazole on 09/05/24
-ID following and follow CK hold statin while on daptomycin
-Provide antiemetics as needed for nausea
-Surgery following
Perforated sigmoid diverticulitis
-S/p Barbour's procedure bowel resection x 2 colostomy
-Continue ostomy care
-Outpatient colorectal surgery follow
Acute on chronic normocytic anemia:
-acute blood loss anemia likely related to perioperative bleeding (earlier during this prolonged hospitalization)
-s/p 4U pRBCs this admission
Other problems:
Essential HTN: Increase Losartan back to 50mg BID
Sinus pain: resolved, cont flonase/claritin
Postop ileus: Resolved
DM2: a1c 6.6%, SSI/accuchecks
Hypokalemia: 40meq today
Hypomagnesemia: 4g IV Mg
Obesity due to excess calories
FULL/SCDs
Medically cleared for discharge. Case management aware.
Total time spent on d/c = 32 min. This included today's physical exam, progress note, review of laboratory and diagnostic data, preparation of discharge documents and prescriptions, and discussions about the pt's hospital course and discharge plan
with the patient and other medical nurse involved in the patient's care.
[2024-09-06 08:32] LABS: Glucose - Point of Care 165 mg/dl (70-99)
[2024-09-06] MEDS: NOVOLOG FLEXPEN-LOW RESISTANCE 1 UNITS SC (08:34)
[2024-09-06] MEDS: KCL 40 MEQ PO (08:35)
[2024-09-06] MEDS: PROTONIX 40 MG PO (08:36)
[2024-09-06] MEDS: MAGNESIUM SULFATE 100 IV (08:36)
[2024-09-06] MEDS: FEOSOL 325 MG PO (08:36)
[2024-09-06] MEDS: NORVASC 5 MG PO (08:37)
[2024-09-06] MEDS: NEURONTIN 100 MG PO ×2 (08:37→15:00)
[2024-09-06] MEDS: CLARITIN 10 MG PO (08:37)
[2024-09-06] MEDS: COZAAR 50 MG PO (08:38)
[2024-09-06] MEDS: LOW STRENGTH ASPIRIN 81 MG PO (08:38)
[2024-09-06] MEDS: LOPRESSOR 100 MG PO (08:38)
[2024-09-06] MEDS: SANTYL OINTMENT 1 APPLIC TOPICAL (08:38)
[2024-09-06] MEDS: ATIVAN PO (08:38)
[2024-09-06] MEDS: NIZORAL 2% CREAM 1 APPLIC TOPICAL (08:39)
[2024-09-06 09:39] LABS: Hemoglobin 9.3 g/dL (12.0-16.0); Mean Corp Hgb Conc. 32.1 g/dL (33.0-37.0); Mean Corpuscular Hgb 29.2 pg (27.0-31.0); Mean Corpuscular Volume 91.2 fL (81.0-99.0); Platelet Count 328 10^3/uL (130-400); Red Blood Cell Count 3.18 10^6/uL (4.20-5.40); Red Cell Dist. Width 17.6 % (11.5-14.5); White Blood Cell Count 8.6 10^3/uL (4.8-10.8)
[2024-09-06 09:54] LABS: Blood Urea Nitrogen 10 mg/dl (7-17); Calcium 8.5 mg/dl (8.4-10.2); Carbon Dioxide 26 mmol/L (22-30); Chloride 103 mmol/L (98-107); Estimated Creatinine Clearance 107 ml/min; Glucose 188 mg/dl (70-99); Potassium 3.6 mmol/L (3.5-5.1); Sodium 138 mmol/L (135-145); eGFR > 60.00
--- NOTE | 2024-09-06 10:28 | W.PN.CRS1 ---
Today's Communication / Plan
-
okay for d/c from our perspective
f/u in a few weeks with Dr. Farnsworth
CBC 7-10 days
Assessment/Plan
-
POD 14 ex lap, SBR x 2, takedown of enterocutaneous fistula
S/p EGD 09/03 - no upper GI bleeding source identified
AFVSS, ABD soft, nondistended, appropriately tender near midline; midline incision clean without erythema or purulent drainage; inferior portion packed
WBC 8.6, Hgb 9.3 (8.4)
�No further evidence of bleeding
�Continue regular diet
� Continue pain control
�Appreciate ID; on micafungin, ceftriaxone and daptomycin
�OOB/IS, appreciate PT
�Appreciate hospitalist
-Dispo- home with RN, okay from our perspective
-Will need close follow up with labs - 7 to 10 days
-Follow up with Dr. Farnsworth 2-4 weeks
Subjective Data
Procedure
08/21- Exploratory laparotomy, Partial small bowel resection x2, Takedown of enterocutaneous fistula.
Subjective Data
Date of Service: September 06, 2024
Patient states she feels well. She has no nausea or vomiting. She has no pain. She feels well overall. Her appetite is controlled.
Objective Data
-
Vital Signs
Temp Pulse Resp BP Pulse Ox
98.7 F 117 18 177/91 97
09/06/24 07:20 09/06/24 07:20 09/06/24 07:20 09/06/24 08:38 09/06/24 07:20
Intake & Output
09/05/24 09/06/24 09/07/24
06:59 06:59 06:59
Intake Total 480 / 480 1065 / 1065
Output Total 150 / 150 450 / 450
Balance 330 / 330 615 / 615
Intake:
Oral fluids 480 / 480 960 / 960
IV piggybacks 105 / 105
Output:
Liquid stool amount 150 / 150 450 / 450
Colostomy 150 / 150 450 / 450
Other:
Number of approximated MODERATE 3 3
amounts of urine
Number of approximated LARGE 1 3
amounts of urine
How many times incontinent 1
SMALL amount urine
Number of unmeasured liquid
stools
Colostomy 2 1
Lab Results
09/06/24 09:29
09/06/24 09:29
Physical Exam
-
General: No Acute Distress and AOx3
Abdomen: Soft, Non Distended and Non Tender
Skin: Warm and Dry
Wound: Dressing in Place and Signs of Infection
Incision: Other (open in lower part of incision, dressing packed)
--- NOTE | 2024-09-06 11:04 | W.PN.HOSP.TC ---
Today's Communication/Plan
-
Plan to discharge.
Assessment / Plan
Assessment / Plan
Assessment -58-year-old female with PMHx complicated for type II DM, chronic normocytic anemia, coarctation of aorta s/p stenting, stage III sacral decubitus ulcer, endometrial cancer, sigmoid diverticulitis with multiple bowel resections and
recent enterocutaneous fistula comes to hospital for sepsis due to intra-abdominal abscess with postop enterocutaneous fistula takedown procedure complicated by postop ileus.
Plan-
Sepsis secondary to intra-abdominal abscess-multiple -resolved.
S/p exploratory laparotomy, partial small bowel resection x 2, enterocutaneous fistula takedown by Dr. Farnsworth on 08/20.
S/p colostomy in March, colostomy reversal not performed due to sacral decubitus ulcer.
Fevers-08/14 8 AM, blood cultures negative. Leukocytosis resolved.
Repeat CT abdomen and pelvis-08/22-left upper abdominal fluid collection, no change compared to prior CT.
S/p aspiration of left abdominal fluid collection by IR on 08/22-45 cc serosanguineous fluid obtained,
IR drain cultures-72 hours-negative.
Last dose of antibiotics yesterday, received 14 days of antibiotics. ID signed off.
Repeat CT abdomen-showed stable intra-abdominal abscess-09/02/2024-largest dimension measuring 4 cm. Previous IR drain only 45 cc of serosanguineous fluid.
Anemia-
Acute on chronic, normocytic
S/p 2 units of PRBC transfusion on 08/23.
Last dose of Lovenox on 08/18.
Hemoglobin currently low at 6.2. S/p 2 units of blood transfusion on 09/02/2024.
GI consulted,endoscopy and enteroscopy on 09/02/24 - no evidence of bleeding. Hiatal hernia noted.
GI advanced diet to regular.
Discontinue IVF and protonix drip.
Switch to Protonic oral BID.
Postop ileus-
Resolved.
Off of NG tube, tolerating full liquids well, colorectal surgery advance diet to regular today.
Patient choked on her regular diet-eggs in the a.m. today.
Refuses solid diets, speech therapy consulted for oral dysphagia.
Speech therapy evaluation had no concerns for dysphagia.
Speech recommended bland solids and small amounts at a time until patient is able to tolerate regular textures and get over her anxiety.
New onset headaches-
History of Tigre cistern magna and allergies
Started patient on Claritin and saline nasal spray.
Offered to obtain a head CT but patient refuse quoting that she had a head CT in January.
Will update the patient on her head CT results.
Hypokalemia -
Resolved.
Repleted potassium in the am on 08/27/2024.
Perforated sigmoid diverticulitis-
S/p Caridad procedure, bowel resection x 2, colostomy formation, iatrogenic splenic capsular repair.
Continue ostomy care.
Colorectal surgery in follow-up, appreciate inputs.
Type 2 diabetes mellitus-
HbA1c at 6.6.
Hold Farxiga, continue SSI.
Currently blood sugars well-controlled.
Patient is advancing to regular diet, reassess her blood sugars in the a.m. tomorrow.
Essential hypertension-
Blood pressure has been labile during this hospital admission
Continue, metoprolol, amlodipine, losartan with holding parameters.
Hyperkalemia-
Resolved, spironolactone discontinued.
Hyperlipidemia-hold statin while on daptomycin.
Left upper quadrant perisplenic hematoma-
IR drain removed on 07/30/2024.
Left upper quadrant infected perisplenic hematoma
-Drain removed 07/30/2024
Essential Hypertension -blood pressure somewhat labile. Continue metoprolol, amlodipine. Resume losartan.
Hyperkalemia -spironolactone discontinued.
Stage III sacral decubitus wound-
prior to admission, continue local wound care.
Frequent position changes.
DVT prophylaxis-SCD.
CODE STATUS full code.
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
History of aortic coarctation
-s/p stent 20 years ago
Deconditioning
-Chronically ill complicated recent hospitalizations
-Uses walker at home
-PT/OT as tolerated
Endometrial cancer -s/p hysterectomy.
History of breast cancer
-S/p mastectomy and chemotherapy
Stage III sacral decubital wound -POA. Continue local wound care, offloading.
Obesity due to excess calories
Dispo -SNF recommended by PT. patient and family refused SNF. Will arrange for home visiting nurse, PT and OT.
Anticipated Discharge: Today
Subjective/Interval History
-
Date of Service: September 06, 2024
Patient is doing well. No complaints today
Objective Data
-
Labs:
Laboratory Results
09/06/24
09:29
WBC 8.6
Hgb 9.3 L
Hct 29.0 L
Plt Count 328
Sodium 138
Potassium 3.6
Chloride 103
Carbon Dioxide 26
BUN 10
Creatinine 0.4 L
Glucose 188 H
Calcium 8.5
Vital Signs:
Vital Signs
Temp Pulse Resp BP Pulse Ox
98.7 F 117 18 177/91 97
09/06/24 07:20 09/06/24 07:20 09/06/24 07:20 09/06/24 08:38 09/06/24 10:44
I&O
09/05/24 09/06/24 09/07/24
06:59 06:59 06:59
Intake Total 480 / 480 1065 / 1065
Output Total 150 / 150 450 / 450
Balance 330 / 330 615 / 615
Review of Systems
-
History Source: Patient
All other systems: Reviewed and negative
Physical Exam
-
General: Comfortable
HEENT: Moist Mucous Membranes and PERRLA
Respiratory: Clear to Auscultation; Negative Wheezes, Rales, Rhonchi or Crackles
Cardiac: Regular Rhythm, S1/S2 and Murmur (Systolic murmur, 3/6, best heard in aortic area.)
GI: Soft, Nontender, Nondistended, Normal Bowel Sounds, Ostomy (Dark-colored output) and Other (Wound dressings clean and intact)
Genito-urinary: No Costovertebral Tender
Musculoskeletal: No Clubbing, No Cyanosis and No Edema
Skin: Warm
Neuro: Awake and No Motor Deficits
Hematologic / Lymphatic: No Lymphadenopathy
Psych: Calm
Data Reviewed
-
Labs: Labs Reviewed by me, Discussed with Physician and Discussed with Nurse
[2024-09-06] MEDS: STERILE WATER FOR INJECTION IV (11:21)
--- NOTE | 2024-09-06 11:21 | W.DCSUMMARY ---
Discharge Summary
Discharge Data
Date of Admission: 08/10/24
Date of Discharge: 09/06/24
-
Pending Results: No
Hospital Course
Impression-
58-year-old female with PMHx complicated for type II DM, chronic normocytic anemia, coarctation of aorta s/p stenting, stage III sacral decubitus ulcer, endometrial cancer, sigmoid diverticulitis with multiple bowel resections and recent
enterocutaneous fistula comes to hospital for sepsis due to intra-abdominal abscess with postop enterocutaneous fistula takedown procedure complicated by postop ileus.
Hospital course-
During her 1 month hospital course, she was treated for multiple conditions-
Sepsis secondary to intra-abdominal monjdxy-[id number]-[id number].
Anemia
Postop ileus
Electrolyte abnormalities, and essential hypertension.
Upon admission on 08/10/2024 she came in for mild abdominal discomfort when bending with her waist, and felt some moisture at her waist and some blood on the inside of her undergarments and noted some discharge in the inferior aspect of her midline
incision along with difficulty flushing her JODIE drain not tubing for 1 day. Upon arrival to the hospital she was noticed to have abdominal abscess that communicated to the exterior with a suspicion for enterocutaneous fistula secondary to abscess
formation. IR was consulted and they were unable to safely aspirate the noticed left upper quadrant collection, left lower quadrant drain was obtained from the JODIE drain with twice a day flushes and an ID consult was placed by surgery. Her left
upper quadrant hematoma that was previously obtained on 05/31/2024 was treated with ertapenem for ESBL E. coli through 07/29. ID started patient empirically on meropenem with pending cultures. On day 2 patient was also found to be in sepsis secondary
to her enterocutaneous fistula and a colorectal surgery consult was obtained. Colorectal surgery made the patient n.p.o. with pending discussions for surgery versus tPA injection with IR procedure on day 3. Through day 5 today 7, patient's
antibiotics were held as the culture was negative and showed evidence only for few mixed skin negrito, and patient was monitored for her temperature curve. The patient had a tube study that showed evidence for enterocutaneous fistula, a diagnosis of
enterocutaneous fistula was confirmed on 08/15/2024 and patient was being followed by colorectal surgery regularly with ongoing discussions for surgery while Patient was off of antibiotics through 08/12 through 08/20. During this time patient also
received a colonoscopy that showed stump length of 15 cm with evidence for diverticulosis. On 08/20, patient underwent exploratory laparotomy with partial small bowel resection x 2 with takedown of an enterocutaneous fistula. Her operative
findings included significant intra-abdominal adhesions walled off abscess cavity of the central anterior abdomen around the enterocutaneous fistula and involved small bowel loops with it. Cultures were obtained from the procedure which were
positive for Proteus mirabilis and Enterococcus species, patient was started on vancomycin and ertapenem again. IR attempted another drain of the existing abscess on 08/22/2024 with only 50 cc of serosanguineous fluid yield. And bowel washout
cultures were finalized for Proteus, vancomycin-resistant Enterococcus and yeast. Patient was started on daptomycin, her statin was held patient was also started on micafungin for yeast and her ertapenem is changed to ceftriaxone and metronidazole
based on susceptibilities of the cultures. Over the next 14 days, patient's postop recovery is complicated by paralytic ileus, N/V elevated 1 week for patient's return of normal bowel movements. During this time patient was partly started on TPN
for 1 day. Then her TPN was discontinued, and patient's diet was slowly advanced over the next 7 days.
During the next 14 days patient had episodes of hypokalemia and hypomagnesemia secondary to her GI losses, and her electrolytes were supplemented accordingly.
She was also found to have anemia, received 2 units of blood transfusion on day of , and her hemoglobin continued to trend down gradually and went as low as 6.25 days before her discharge. She was given another 2 units of blood
transfusion, and GI was consulted, GI performed an upper GI endoscopy and an enteroscopy both of which they could not isolate the source of bleeding. CT angiogram was also obtained on the patient which did not isolate any source of bleeding however
her abscess still continued to remain stable at about the same time.
During this entire hospital course patient's blood pressure continued to remain remain elevated, her losartan dose was doubled to 50 twice daily.
Patient was also given iron supplementation.
Investigative workup -
Abdominal CT-08/10/2024-
Interval removal of the left upper quadrant percutaneous drain with slightly increased size of the residual rim-enhancing collection just superior to the spleen which measures 6.3 x 4.1 cm.
There is stable appearance of the right lower quadrant percutaneous drain with overall similar size of the gas and fluid containing collection within the lower midline abdomen.
Small left pleural effusion with adjacent atelectasis.
Abscess drainage-08/13/2024-
Fluoroscopically guided exchange of anterior pelvic abscess drainage catheter.
Percutaneous drainage catheter will remain in place at this time
Tube change and sinus tract injection-08/15/2024-
1. Moderate residual abscess cavity. There is a fistulous communication between the abscess and the adjacent small bowel as described above.
2. Percutaneous drainage catheter will remain in place at this time.
Renal ultrasound-08/21/2024-
No evidence of renal collecting system dilatation bilaterally.
Likely small simple lateral left renal cyst.
Abdominal/pelvis CT-08/22/2024-
Superior left upper abdominal abnormal fluid collection again seen, superior to the spleen, without overall significant change in size in appearance in comparison to most recent prior CT, as detailed above.
Interval removal of approximate midline anterior abdominal abscess catheter drainage with small volume residual fluid and air bubbles which could represent very small residual abscess.
NEW LARGE ELONGATED CRESCENTIC AREA OF PREDOMINANTLY SIMPLE FLUID DENSITY WITH SOME BUBBLES OF AIR extending from the left lateral abdomen into the soft tissues of the left lateral true pelvis amongst several loops of small bowel with thickened
de la rosa, without definitive oral contrast within. This could represent a new infected fluid collection.
Chest x-ray-08/22/2024-no acute disease of chest
Abdomen/pelvis CTA-09/02/2024
MPRESSION:
1. No convincing evidence for active GI bleed.
2. Redemonstration of left upper abdomen fluid collection anterosuperior to the spleen measuring approximately 4.3 x 2.0 x 1.9 cm, decreased from prior.
3. Interval decrease in amount of partially loculated fluid tracking along the left paracolic gutter.
4. Interval increase in loculated lentiform fluid collection just deep to the anterior abdominal wall at the supraumbilical level measuring approximately 6.8 x 2.1 x 5.5 cm, likely seroma.
Cultures-08/10/2024-no cultures
08/20/2024 no cultures
08/20/2024-Proteus Mirabella's, vancomycin-resistant Enterococcus, yeast.
08/22/2024-fluid culture obtained from IR drain-negative.
Discharge Plan
-
Patient Disposition: Home (Routine Discharge)
Discharge Diagnosis/Procedures: Enterocutaneous fistula, postop ileus, multiple intra-abdominal abscess, chronic anemia.
Condition: Fair
Diet: Diabetic, Carb Controlled
Activity: As tolerated
Driving Restrictions: As prior to admission
Bathing Restrictions: OK to Shower
Blood Work: 7-10 days from discharge will need a CBC, BMP and Magnesium
Other Services: VN, PT and OT
Activity Restrictions/Additional Instructions:
Wound Care Instructions
Sacrum: clean with soap and water, Santyl, alginate, silicone foam and barrier cream to periwound.
Change daily and prn drainage.
Abdomen: clean with soap and water, dry dressing change daily
Air chair cushion when sitting
Miconazole powder as needed for yeasty red skin around sacral ulcer, peristomal skin with each dressing/appliance change.
Colostomy appliance change using Vineet wafer # [id number], Mario seal and Avalon pouch # [id number].
Follow up at wound care center call for an appointment.
Instructions: Enterocutaneous Fistula (DC)
Referrals:
Jesus Farnsworth MD [Active] - in two to four weeks
Jesus Hughes DO [Community] -
PRIVATE,PHYSICIAN [Family Provider] -
Additional Discharge Medication Instructions: Your hypertension medications has been adjusted over the last 1 month.
You are taking metoprolol at 100 mg dose
Currently her losartan dose is changed from 25 once a day to 50 once a day.
Monitor your blood pressure once a day in the AM regularly.
Follow-up with your primary care within 1 week
Prescriptions:
New
acetaminophen [Tylenol Extra Strength] 500 mg Tablet
1,000 mg PO Q6 10 Days Qty: 80 0RF
insulin aspart U-100 100 unit/mL (3 mL) insulin pen
2 unit SC TID Qty: 15 0RF
tramadol 50 mg Tablet
50 mg PO Q6HPRN PRN (Reason: moderate pain) Qty: 6 0RF
Continued
aspirin 81 mg Tablet,Chewable
81 mg PO DAILY
ferrous sulfate [FeroSul] 325 mg (65 mg iron) Tablet
325 mg PO DAILY Qty: 0 0RF
acetaminophen 325 mg Tablet
650 mg PO Q6HPRN PRN (Reason: mild pain) Qty: 0 0RF
simethicone 80 mg Tablet,Chewable
80 mg PO QIDPRN PRN (Reason: gas pain) Qty: 0 0RF
losartan 50 mg Tablet
50 mg PO BID Qty: 60 0RF
metoprolol tartrate 100 mg Tablet
100 mg PO BID Qty: 60 0RF
rosuvastatin [Crestor] 40 mg tablet
40 mg PO DAILY Qty: 30 0RF
nifedipine 60 mg Tablet Extended Release
60 mg PO BID Qty: 60 0RF
Patient Comments:
no recent pharmacy fills
spironolactone 25 mg Tablet
25 mg PO DAILY Qty: 30 0RF
gabapentin 100 mg Capsule
100 mg PO TID Qty: 90 0RF
dapagliflozin propanediol 5 mg Tablet
5 mg PO DAILY Qty: 30 0RF
ketoconazole 2 % Cream
1 applic topical BID 30 Days Qty: 60 0RF
Rx Instructions:
to buttocks
Held
Mounjaro 2.5 mg/0.5 mL Pen Injector
2.5 mg SC WE
Hold Instructions: Resume on 09/18/24. until you follow up with your PCP
Rx Instructions:
for 4 weeks
Discontinued
multivitamin with folic acid [Tab-A-Sherley] 1 TABLET tablet
1 tab PO DAILY
tramadol 50 mg Tablet
50 mg PO Q6HPRN PRN (Reason: moderate pain) Qty: 30 0RF
insulin aspart U-100 100 unit/mL (3 mL) Insulin Pen
4 unit SC AC Qty: 15 0RF
Discharge Orders:
Discharge Patient (As Directed); Ordered 09/06/24
Ordered By: Zara Johnston
Discharge Date and Time
Print Language: FRENCH
--- NOTE | 2024-09-06 12:01 | CM ---
Patient for discharge today.
Refuses hospital bed - Script on chart and will be given to patient/son
script for labs in 1 wk on chart
[facility] notified (liaison)
PLAN: Home with EDDIE [facility]
son to transport
[2024-09-06 12:11] LABS: Glucose - Point of Care 287 mg/dl (70-99)
[2024-09-06] MEDS: NOVOLOG FLEXPEN-LOW RESISTANCE 3 UNITS SC (13:21)
[2024-09-06 14:58] VITALS: BP 172/86
[2024-09-06] MEDS: APRESOLINE 5 MG IV (15:00)
[2024-09-06 15:55] VITALS: BP 157/82
== END 2024-09-06 16:59 | disposition home health service (06) | DRG 856 ==
LOC: 2 NORTH 06:31
PROVIDERS: Hospitalist; Physician Assistant; Radiology Vascular & Interventional Radiology; Registered Nurse; Student in an Organized Health Care Education/Training Program; Surgery; ADMITTING PHYSICIAN Hospitalist; ATTENDING PHYSICIAN Internal Medicine; CONSULT PHYSICIAN Internal Medicine Infectious Disease; CONSULT PHYSICIAN Surgery; EMERGENCY PHYSICIAN Emergency Medicine; OTHER PHYSICIAN Internal Medicine Gastroenterology; OTHER PHYSICIAN Surgery
PROC: 0W9J3ZZ Drainage of Pelvic Cavity, Percutaneous Approach (ICD-10-PCS; 2024-08-13)
PROC: 0DJD8ZZ Inspection of Lower Intestinal Tract, Via Natural or Artificial Opening Endoscopic (ICD-10-PCS; 2024-08-19)
PROC: 0DB80ZZ Excision of Small Intestine, Open Approach (ICD-10-PCS; 2024-08-21)
PROC: 0W9G3ZZ Drainage of Peritoneal Cavity, Percutaneous Approach (ICD-10-PCS; 2024-08-23)
PROC: 30233N1 Transfusion of Nonautologous Red Blood Cells into Peripheral Vein, Percutaneous Approach (ICD-10-PCS; 2024-08-23)
PROC: 0DJ08ZZ Inspection of Upper Intestinal Tract, Via Natural or Artificial Opening Endoscopic (ICD-10-PCS; 2024-09-03)
DX: T81.43XA Infection following a procedure, organ and space surgical site, initial encounter (principal); A41.81 Sepsis due to Enterococcus; L89.153 Pressure ulcer of sacral region, stage 3; E43 Unspecified severe protein-calorie malnutrition; K65.1 Peritoneal abscess; K63.2 Fistula of intestine; D62 Acute posthemorrhagic anemia; K56.7 Ileus, unspecified; K91.89 Other postprocedural complications and disorders of digestive system; N17.9 Acute kidney failure, unspecified; T81.83XA Persistent postprocedural fistula, initial encounter; E11.9 Type 2 diabetes mellitus without complications; I10 Essential (primary) hypertension; E66.9 Obesity, unspecified; D63.8 Anemia in other chronic diseases classified elsewhere; E78.00 Pure hypercholesterolemia, unspecified; K66.0 Peritoneal adhesions (postprocedural) (postinfection); Y83.6 Removal of other organ (partial) (total) as the cause of abnormal reaction of the patient, or of later complication, without mention of misadventure at the time of the procedure; K57.30 Diverticulosis of large intestine without perforation or abscess without bleeding; E87.6 Hypokalemia; E83.42 Hypomagnesemia; G89.29 Other chronic pain; I1A.0 Resistant hypertension; K44.9 Diaphragmatic hernia without obstruction or gangrene; R51.9 Headache, unspecified; E87.5 Hyperkalemia; Z68.29 Body mass index [BMI] 29.0-29.9, adult; Z79.4 Long term (current) use of insulin; Z79.82 Long term (current) use of aspirin; Z79.899 Other long term (current) drug therapy; Z85.3 Personal history of malignant neoplasm of breast; Z85.42 Personal history of malignant neoplasm of other parts of uterus; Z90.13 Acquired absence of bilateral breasts and nipples; Z90.710 Acquired absence of both cervix and uterus; Z92.21 Personal history of antineoplastic chemotherapy; Z93.3 Colostomy status
CPT/HCPCS: 88307; 10030; 49423; 49424; 71046; 74174; 74177; 75984; 76080; 76775; 80048; 80053; 81003; 81015; 82550; 82570; 82962; 83735; 83935; 84100; 84134; 84300; 85018; 85025; 85027; 85610; 85730; 86850; 86900; 86901; 86920; 87015; 87040; 87070; 87075; 87077; 87186; 87205; 92610; 93005; 97110; 97163; 97167; 97530; 97535; 99285; C1729; C1769; C1776; J0878; J1335; P9016; Q9967

== ENCOUNTER → 2024-10-04 13:42 | Outpatient (REF) | payer BC, SELFPAY | LOC: WOUND 13:42 | PROVIDERS: ATTENDING PHYSICIAN Surgery; FAMILY PHYSICIAN Family Medicine | DX: L89.153 Pressure ulcer of sacral region, stage 3 (principal); T81.31XA Disruption of external operation (surgical) wound, not elsewhere classified, initial encounter; Y83.8 Other surgical procedures as the cause of abnormal reaction of the patient, or of later complication, without mention of misadventure at the time of the procedure; E11.65 Type 2 diabetes mellitus with hyperglycemia; Z79.4 Long term (current) use of insulin; K57.80 Diverticulitis of intestine, part unspecified, with perforation and abscess without bleeding; E11.69 Type 2 diabetes mellitus with other specified complication; E66.01 Morbid (severe) obesity due to excess calories | CPT/HCPCS: 11042; 99203 ==

== ENCOUNTER → 2024-10-11 15:04 | Outpatient (REF) | payer BC, SELFPAY | LOC: WOUND 15:04 | PROVIDERS: ATTENDING PHYSICIAN Surgery; FAMILY PHYSICIAN Family Medicine | DX: L89.153 Pressure ulcer of sacral region, stage 3 (principal); T81.31XA Disruption of external operation (surgical) wound, not elsewhere classified, initial encounter; E11.65 Type 2 diabetes mellitus with hyperglycemia; Z79.4 Long term (current) use of insulin; K57.80 Diverticulitis of intestine, part unspecified, with perforation and abscess without bleeding; E11.69 Type 2 diabetes mellitus with other specified complication; E66.01 Morbid (severe) obesity due to excess calories; Y83.8 Other surgical procedures as the cause of abnormal reaction of the patient, or of later complication, without mention of misadventure at the time of the procedure | CPT/HCPCS: 99213 ==

== ENCOUNTER → 2024-10-18 14:04 | Outpatient (REF) | payer BC, SELFPAY | LOC: WOUND 14:04 | PROVIDERS: ATTENDING PHYSICIAN Surgery; FAMILY PHYSICIAN Family Medicine | DX: L89.153 Pressure ulcer of sacral region, stage 3 (principal); T81.31XA Disruption of external operation (surgical) wound, not elsewhere classified, initial encounter; E11.65 Type 2 diabetes mellitus with hyperglycemia; Z79.4 Long term (current) use of insulin; K57.80 Diverticulitis of intestine, part unspecified, with perforation and abscess without bleeding; Y83.8 Other surgical procedures as the cause of abnormal reaction of the patient, or of later complication, without mention of misadventure at the time of the procedure | CPT/HCPCS: 11042 ==

== ENCOUNTER → 2024-10-25 14:59 | Outpatient (REF) | payer BC, SELFPAY | LOC: WOUND 14:59 | PROVIDERS: ATTENDING PHYSICIAN Surgery | DX: L89.153 Pressure ulcer of sacral region, stage 3 (principal); T81.31XA Disruption of external operation (surgical) wound, not elsewhere classified, initial encounter; E11.65 Type 2 diabetes mellitus with hyperglycemia; Z79.4 Long term (current) use of insulin; K57.80 Diverticulitis of intestine, part unspecified, with perforation and abscess without bleeding; E11.69 Type 2 diabetes mellitus with other specified complication; E66.01 Morbid (severe) obesity due to excess calories; Y83.8 Other surgical procedures as the cause of abnormal reaction of the patient, or of later complication, without mention of misadventure at the time of the procedure | CPT/HCPCS: 11042 ==

== ENCOUNTER → 2024-10-31 13:39 | Outpatient (REF) | payer BC, SELFPAY | LOC: WOUND 13:39 | PROVIDERS: ATTENDING PHYSICIAN Surgery; FAMILY PHYSICIAN Family Medicine | DX: L89.153 Pressure ulcer of sacral region, stage 3 (principal); E11.65 Type 2 diabetes mellitus with hyperglycemia; K57.80 Diverticulitis of intestine, part unspecified, with perforation and abscess without bleeding; E11.69 Type 2 diabetes mellitus with other specified complication; E66.01 Morbid (severe) obesity due to excess calories; Z79.4 Long term (current) use of insulin | CPT/HCPCS: 11042 ==

== ENCOUNTER → 2024-11-07 15:08 | Outpatient (REF) | payer BC, SELFPAY | LOC: WOUND 15:08 | PROVIDERS: ATTENDING PHYSICIAN Surgery; FAMILY PHYSICIAN Family Medicine | DX: L89.153 Pressure ulcer of sacral region, stage 3 (principal); E11.65 Type 2 diabetes mellitus with hyperglycemia; K57.80 Diverticulitis of intestine, part unspecified, with perforation and abscess without bleeding; E11.69 Type 2 diabetes mellitus with other specified complication; E66.01 Morbid (severe) obesity due to excess calories; Z79.4 Long term (current) use of insulin | CPT/HCPCS: 11042 ==

== ENCOUNTER → 2024-11-15 15:12 | Outpatient (REF) | payer BC, SELFPAY | LOC: WOUND 15:12 | PROVIDERS: ATTENDING PHYSICIAN Surgery; FAMILY PHYSICIAN Family Medicine | DX: L89.153 Pressure ulcer of sacral region, stage 3 (principal); E11.65 Type 2 diabetes mellitus with hyperglycemia; Z79.4 Long term (current) use of insulin; K57.80 Diverticulitis of intestine, part unspecified, with perforation and abscess without bleeding; E11.69 Type 2 diabetes mellitus with other specified complication; E66.01 Morbid (severe) obesity due to excess calories | CPT/HCPCS: 11042 ==

== ENCOUNTER → 2024-12-05 11:17 | Outpatient (REF) | payer BC, SELFPAY | LOC: WOUND 11:17 | PROVIDERS: ATTENDING PHYSICIAN Surgery; FAMILY PHYSICIAN Family Medicine | DX: L89.153 Pressure ulcer of sacral region, stage 3 (principal); E11.65 Type 2 diabetes mellitus with hyperglycemia; K57.80 Diverticulitis of intestine, part unspecified, with perforation and abscess without bleeding; E11.69 Type 2 diabetes mellitus with other specified complication; E66.01 Morbid (severe) obesity due to excess calories | CPT/HCPCS: 11042 ==

== ENCOUNTER → 2024-12-12 11:20 | Outpatient (REF) | payer BC, SELFPAY | LOC: WOUND 11:20 | PROVIDERS: ATTENDING PHYSICIAN Surgery; FAMILY PHYSICIAN Family Medicine | DX: L89.153 Pressure ulcer of sacral region, stage 3 (principal); E11.65 Type 2 diabetes mellitus with hyperglycemia; K57.80 Diverticulitis of intestine, part unspecified, with perforation and abscess without bleeding; E11.69 Type 2 diabetes mellitus with other specified complication; E66.01 Morbid (severe) obesity due to excess calories; Z79.4 Long term (current) use of insulin | CPT/HCPCS: 11042 ==

== ENCOUNTER → 2024-12-26 11:33 | Outpatient (REF) | payer BC, SELFPAY | LOC: WOUND 11:33 | PROVIDERS: ATTENDING PHYSICIAN Surgery; FAMILY PHYSICIAN Family Medicine | DX: L89.153 Pressure ulcer of sacral region, stage 3 (principal); E11.65 Type 2 diabetes mellitus with hyperglycemia; K57.80 Diverticulitis of intestine, part unspecified, with perforation and abscess without bleeding; E11.69 Type 2 diabetes mellitus with other specified complication; E66.01 Morbid (severe) obesity due to excess calories; Z79.4 Long term (current) use of insulin | CPT/HCPCS: 11042 ==

== ENCOUNTER → 2025-01-09 11:36 | Outpatient (REF) | payer BC, SELFPAY | LOC: WOUND 11:36 | PROVIDERS: ATTENDING PHYSICIAN Surgery; FAMILY PHYSICIAN Family Medicine | DX: L89.153 Pressure ulcer of sacral region, stage 3 (principal); E11.65 Type 2 diabetes mellitus with hyperglycemia; Z79.4 Long term (current) use of insulin; K57.80 Diverticulitis of intestine, part unspecified, with perforation and abscess without bleeding; E11.69 Type 2 diabetes mellitus with other specified complication; E66.01 Morbid (severe) obesity due to excess calories | CPT/HCPCS: 99213 ==

== ENCOUNTER → 2025-01-09 12:12 | Outpatient (REF) | payer BC, SELFPAY | LOC: RAD 12:12 | PROVIDERS: ATTENDING PHYSICIAN Surgery; FAMILY PHYSICIAN Family Medicine | DX: L89.153 Pressure ulcer of sacral region, stage 3 (principal) | CPT/HCPCS: 72190 ==

== ENCOUNTER → 2025-01-30 11:33 | Outpatient (REF) | payer BC, SELFPAY | LOC: WOUND 11:33 | PROVIDERS: ATTENDING PHYSICIAN Surgery; FAMILY PHYSICIAN Family Medicine | DX: L89.153 Pressure ulcer of sacral region, stage 3 (principal); E11.65 Type 2 diabetes mellitus with hyperglycemia; K57.80 Diverticulitis of intestine, part unspecified, with perforation and abscess without bleeding; E11.69 Type 2 diabetes mellitus with other specified complication; E66.01 Morbid (severe) obesity due to excess calories; Z79.4 Long term (current) use of insulin | CPT/HCPCS: 99213 ==

== ENCOUNTER 2025-02-03 23:19 | Inpatient (IN) | payer BC, SELFPAY ==
[2025-02-04 00:26] LABS: Glucose - Point of Care 168 mg/dl (70-99)
[2025-02-04] MEDS: NULYTELY SOLUTION 2 LITERS PO (00:31)
[2025-02-04 00:36] LABS: % Basophils 0.5 % (0-2); % Eosinophils 2.8 % (0-6); % Immature Granulocytes 0.7 % (0-0.5); % Lymphocytes 22.3 % (20.5-51.1); % Monocytes 7.5 % (1.7-9.3); % Neutrophils 66.2 % (42.2-75.2); Absolute Basophils 0.1 10^3/uL (0-0.2); Absolute Eosinophils 0.3 10^3/uL (0-0.7); Absolute Immature Granulocytes 0.1 10^3/uL (0-0.05); Absolute Lymphocytes 2.7 10^3/uL (1.2-3.4); Absolute Monocytes 0.9 10^3/uL (0.1-0.6); Absolute Neutrophils 7.9 10^3/uL (1.4-6.5); Hematocrit 36.6 % (37.0-47.0); Hemoglobin 12.3 g/dL (12.0-16.0); Mean Corp Hgb Conc. 33.6 g/dL (33.0-37.0); Mean Corpuscular Hgb 29.9 pg (27.0-31.0); Mean Corpuscular Volume 89.1 fL (81.0-99.0); Nucleated Red Blood Cells % 0 %; Platelet Count 248 10^3/uL (130-400); Red Blood Cell Count 4.11 10^6/uL (4.20-5.40); Red Cell Dist. Width 13.9 % (11.5-14.5); White Blood Cell Count 11.9 10^3/uL (4.8-10.8)
[2025-02-04 00:37] LABS: INR 0.93; PT 12.8 Sec (11.4-14.6)
[2025-02-04 00:38] LABS: APTT 27.7 Sec (23.4-35.0)
[2025-02-04 01:08] VITALS: BP 148/75
[2025-02-04 01:13] LABS: Blood Urea Nitrogen 44 mg/dl (7-17); Calcium 9.9 mg/dl (8.4-10.2); Carbon Dioxide 23 mmol/L (22-30); Chloride 106 mmol/L (98-107); Glucose 167 mg/dl (70-99); Potassium 4.7 mmol/L (3.5-5.1); Sodium 138 mmol/L (135-145); eGFR > 60.00
--- NOTE | 2025-02-04 03:27 | PTCARENOTE ---
Pt is a direct admit from home, admitted to [facility] around 2345. Pt x1 from wheelchair to bed w/ RW. Pt aaox3 and VSS. Since pt arrived to hospital late, this RN reached out to production potter colorectal MD about bowel prep that was ordered (see NOV). Dr. Carter
stated to have pt drink 2L of the Nulytely solution. [employer] notified and order placed.
Pt brought in colostomy supplies from home and has been using one time use bags for colostomy. Per pt, high output bag given to her by outpt ampoule examiner. Pt stated she did not want to place the high output bag on yet since her stools were still
'somewhat formed'. Pt started bowel prep and then rang mejia since her bag filled up. This RN and tech attempted to remove old bag to place high output bag on. While changing out bag, loose stool leaked out from stoma onto pt's skin and wafer. Pt was
upset and yelled at staff that 'this is unacceptable' and 'this never happens at home'. RN educated pt that she is having high output d/t the bowel prep and that staff if trying to keep it as clean as they can. Unable to find a drainage bag to fit
on high output bag. Bag and wafer removed and fecal collection bag applied with drainage bag attached. Will consult wound ostomy nurse. Plan of care ongoing.
[2025-02-04 07:46] VITALS: BP 177/85
--- NOTE | 2025-02-04 08:30 | WOUNDNOTE ---
WO RN NOTE: Patient visited for management of high output colostomy due to bowel prep. Fecal incontinence pouch removed and high output ostomy pouch with drainage system placed. Stoma with moisture vs varices around stoma. Dr. Farnsworth made aware.
RN Torrey given update. Patient reports sacral border foam given by Len[facility] RN had been applied. Patient is on an air overlay that has been properly inflated. Plan is for colostomy reversal on 02/06. Will follow as needed.
[2025-02-04 09:33] LABS: Glycohemoglobin (HgbA1c) 7.9 % (4.0-5.6)
[2025-02-04 09:52] LABS: Glucose - Point of Care 184 mg/dl (70-99)
--- NOTE | 2025-02-04 10:01 | HPS.HSE ---
Family Physician
-
Family Physician: NO INTERVIEW UNKNOWN
Chief Complaint
-
colostomy
History of Present Illness
59-year-old female direct admitted to [facility] for a bowel prep prior to undergoing a colostomy reversal. The patient has a long and complicated medical history. She initially had an urgent sigmoidectomy with colostomy creation for
diverticulitis on 05/20/2024. Pathology ultimately showed diverticulitis. This was complicated by a splenic capsular tear which went to his perisplenic collection as well as a midline abdominal fluid collection. Eventually the midline fluid
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 She then underwent a exploratory laparotomy with partial small bowel resection x 2 and takedown of the fistula on 08/20/2024. She had a prolonged hospital course nearly 2 months and developed a
decubitus ulcer. She was then discharged to home with physical therapy. She now presents today for a colostomy reversal as discussed in the office with Dr. Farnsworth. She is to undergo a 2-day bowel prep followed by colonoscopy and then subsequently
surgery. She currently has no complaints.
Medical History
Past Medical History
Past Medical History: Reports Cancer (History of breast cancer status post mastectomy and chemotherapy, history of endometrial cancer status post hysterectomy) and Other (Acute sigmoid diverticulitis leading to Barbour's procedure, recurrent pleural
effusion status post thoracentesis, status post chest tube, TIFFANI, hypokalemia, hypertension, hyperlipidemia, diabetes, thrombocytopenia, coarctation of the aorta, obesity, sacral decub)
Past Surgical History: Reports Bowel Resection (Barbour's procedure with colostomy, IR drains in place), Gynocological (Hysterectomy) and Other (Mastectomy)
Social History
Tobacco: Non-smoker
Alcohol: None
Drug: None
Family History
Family History: Not pertinent
Allergies / Home Medications
Allergies reflects when Allergies were last updated in [facility].
Home Medications with original date entered in [facility]
Allergy/Medication List:
Allergy/AdvReac Type Severity Reaction Status Date / Time
diphtheria, pertussis, Allergy Unknown Verified 08/02/24 02:16
tetanus vacc
gentamicin Allergy Hearing Verified 08/02/24 02:16
loss
multivitamin with folic acid 400 1 tab PO DAILY Supplement 09/02/20 08/02/24 History
mcg tablet (Tab-A-Sherley)
aspirin 81 mg chewable tablet 81 mg PO DAILY Blood Clot 05/20/24 08/02/24 History
Prevention/Tx
subcutaneous pen injector
(Mounjaro)
acetaminophen 325 mg tablet 650 mg (2 x 325 mg) PO Q6HPRN PRN 07/01/24 08/02/24 Rx
mild pain #0 tabs
ferrous sulfate 325 mg (65 mg 325 mg PO DAILY Supplement #0 tabs 07/01/24 08/02/24 Rx
iron) tablet (FeroSul)
simethicone 80 mg chewable tablet 80 mg PO QIDPRN PRN gas pain #0 07/01/24 08/02/24 Rx
tabs
dapagliflozin propanediol 5 mg 5 mg PO DAILY diabetes #30 tabs 07/30/24 08/02/24 Rx
tablet
gabapentin 100 mg capsule 100 mg PO TID Pain #90 caps 07/30/24 08/02/24 Rx
insulin aspart U-100 100 unit/mL 4 unit (0.04 mL) SC AC Diabetes 07/30/24 08/02/24 Rx
(3 mL) subcutaneous pen #15 mL
ketoconazole 2 % topical cream 1 applic topical BID #60 grams 07/30/24 08/02/24 Rx
losartan 50 mg tablet 50 mg PO BID #60 tabs 07/30/24 08/02/24 Rx
metoprolol tartrate 100 mg tablet 100 mg PO BID #60 tabs 07/30/24 08/02/24 Rx
nifedipine 60 mg tablet,extended 60 mg PO BID #60 tabs 07/30/24 08/02/24 Rx
release
rosuvastatin 40 mg tablet (Crestor) 40 mg PO DAILY #30 tabs 07/30/24 08/02/24 Rx
spironolactone 25 mg tablet 25 mg PO DAILY Blood pressure #30 07/30/24 08/02/24 Rx
tabs
tramadol 50 mg tablet 50 mg PO Q6HPRN PRN moderate pain 07/30/24 08/02/24 Rx
#30 tabs
Review of Systems
-
History Source: Patient
A 12 point ROS was completed and negative except as noted: Yes
Physical Exam
Vital Signs
Vital Signs
Temp Pulse Resp BP Pulse Ox
98.2 F 93 14 177/85 97
02/04/25 07:46 02/04/25 07:46 02/04/25 07:46 02/04/25 07:46 02/04/25 07:46
Physical Exam
General: Well Developed, Well Nourished and No Apparent Distress
GI: Soft, Non Tender, Non Distended and Other (colostomy in place)
Neuro: AO x 3
Psych: Calm
Laboratory Results
-
02/04/25 00:16
02/04/25 00:46
Laboratory Results
PT 12.8 Sec (11.4-14.6) 02/04/25 00:16
INR 0.93 02/04/25 00:16
APTT 27.7 Sec (23.4-35.0) 02/04/25 00:16
Data Reviewed
-
Lab Data: Labs Reviewed by me and Discussed with Physician
Old Records: Reviewed
Impression/Plan
-
IMPRESSION: 59-year-old female presents as a direct admission for 2-day bowel prep followed by colonoscopy followed by a colostomy reversal
PLAN:
-Finish 4 L bowel prep today
- Hospitalist consulted for diabetes and hypertension management
- Continue clear liquids. N.p.o. at midnight for colonoscopy tomorrow.
- Colonoscopy tomorrow, colostomy reversal on 02/06/[address] Farnsworth
- Will need 2 enemas today. 1 this morning and 1 later tonight. This will be through the rectum to clear the rectal stump.
- Appreciate wound RN
- EKG pending for preop clearance
- Discussed at length with patient and son at bedside
--- NOTE | 2025-02-04 10:25 | CON.HOSP ---
Family Physician
-
Family Physician: NO INTERVIEW UNKNOWN
Chief Complaint
-
Colostomy Reversal
History of Present Illness
59F direct admit for bowel prep prior to undergoing colostomy reversal. Complicated medical history, initially had urgent sigmoidectomy with colostomy creation for ruptured diverticulitis 04/2024 complicated by splenic capsular tear that eventually
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 Subsequently underwent exploratory laparotomy with partial small bowel resection x 2 and takedown of fistula 07/2024. Prolonged hospital course nearly 2 months. Direct admit as per CRS to undergo a 2-day
bowel prep followed by colonoscopy and then subsequent colostomy reversal. PMHx also includes HTN HLD DM Obesity. Hospitalist service consulted for mgmt HTN and DM.
Medical History
Past Medical History
Past Medical History: Reports Other (as above)
Past Surgical History: Reports Other (as above)
Social History
Tobacco: Non-smoker
Alcohol: None
Drug: None
Family History
Family History: Cancer (Mother Colon Cancer)
Allergies / Home Medications
Allergies reflects when Allergies were last updated in [facility].
Home Medications with original date entered in [facility]
Allergy/Medication List:
Allergies
Allergy/AdvReac Type Severity Reaction Status Date / Time
diphtheria, pertussis, Allergy Unknown Verified 08/10/24 02:30
tetanus vacc
gentamicin Allergy Hearing Verified 08/10/24 02:30
loss
Home Medications
aspirin 81 mg chewable tablet 81 mg PO DAILY Blood Clot Prevention/Tx 05/20/24
ferrous sulfate 325 mg (65 mg iron) tablet (FeroSul) 325 mg PO DAILY Supplement #0 tabs 07/01/24
gabapentin 100 mg capsule 100 mg PO TID Pain #90 caps 07/30/24
spironolactone 25 mg tablet 25 mg PO DAILY Blood pressure #30 tabs 07/30/24
acetaminophen 650 mg tablet,extended release (Tylenol 8 Hour) 1,300 mg PO Q8HPRN PRN pain 05/13/25
benzonatate 200 mg capsule 200 mg PO TIDPRN PRN cough thru 02/05/25 02/04/25
cefuroxime axetil 250 mg tablet 250 mg PO BID Infection-9 doses remain 02/04/25
dapagliflozin propanediol 5 mg tablet (Farxiga) 5 mg PO DAILY Diabetes 02/04/25
fluconazole 150 mg tablet 150 mg PO MONTHLY due 03/03/25 02/04/25
insulin aspart U-100 100 unit/mL (3 mL) subcutaneous pen (Novolog FlexPen U-100 Insulin aspart) 20 unit SC MEALS Diabetes 02/04/25
losartan 50 mg tablet 50 mg PO BID Blood Pressure 02/04/25
metoprolol tartrate 100 mg tablet 100 mg PO BID Blood Pressure 02/04/25
nifedipine 60 mg tablet,extended release 60 mg PO BID Blood Pressure 02/04/25
rosuvastatin 40 mg tablet (Crestor) 40 mg PO DAILY cholesterol 02/04/25
Review of Systems
-
A 12 point Review of Systems was completed except as noted: Yes
Constitutional: Reports Other (as below)
Physical Exam
Vital Signs
Vital Signs
Temp Pulse Resp BP Pulse Ox
98.2 F 93 14 177/85 97
02/04/25 07:46 02/04/25 07:46 02/04/25 07:46 02/04/25 07:46 02/04/25 07:46
Physical Exam
General: Other (as below)
Laboratory Results
-
Laboratory Results
02/04/25 00:16
02/04/25 00:46
PT 12.8 Sec (11.4-14.6) 02/04/25 00:16
INR 0.93 02/04/25 00:16
APTT 27.7 Sec (23.4-35.0) 02/04/25 00:16
Impression / Plan
-
ROS
General: Denies fever chills night sweats unexpected weight loss
Neuro: Denies seizure shaking loss of consciousness dizziness vertigo
Psych: denies depression hallucinations confusion manic episodes
Endocrine: Denies polyuria polydipsia polyphagia heat/cold intolerance
HEENT: Denies blindness visual disturbances epistaxis
Pulmonary: Reports coughing denies hemoptysis sneezing sob dyspnea on exertion
Cardiovascular: denies chest pain palpitations leg swelling
Hematology: denies signs symptoms of anemia easy bruising/bleeding
Gastrointestinal: denies nausea vomiting diarrhea constipation hematemesis hematochezia melena
Genito-Urinary: denies retention incontinence dysuria
Musculoskeletal: denies joint pain weakness
Dermatology: denies rash laceration bruising
Physical Exam
General: No pallor, cyanosis, or jaundice. Obese
HEENT: Throat clear. PERRLA Normocephalic atraumatic
NECK: Supple. No JVD Carotid Bruits
RESPIRATORY: Lungs clear to auscultation. No crackles wheezes stridor
CVS: S1, S2 normal. RRR. No murmur, rub or gallop.
ABDOMEN: Soft, non-tender. No distension. BS+/normal. Colostomy present
EXTREMITIES: No peripheral cyanosis or edema.
INFORMATION TECHNOLOGY AUDITOR: AOx3. Conversant coherent
IMPRESSION:
59F direct admit for bowel prep prior to undergoing colostomy reversal. Complicated medical history, initially had urgent sigmoidectomy with colostomy creation for ruptured diverticulitis 04/2024 complicated by splenic capsular tear that eventually
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 Subsequently underwent exploratory laparotomy with partial small bowel resection x 2 and takedown of fistula 07/2024. Prolonged hospital course nearly 2 months. Direct admit as per CRS to undergo a 2-day
bowel prep followed by colonoscopy and then subsequent colostomy reversal. PMHx also includes HTN HLD DM Obesity remote hx Endometrial and Breast Ca Hx Coarctation Aorta stent placement. Hospitalist service consulted for mgmt HTN and DM.
PLAN:
Hx Perforated sigmoid diverticulitis-
S/p Caridad procedure, bowel resection x 2, colostomy formation, iatrogenic splenic capsular repair, takedown fistula
Continue ostomy/wound care.
Plan for Colostomy reversal as per CRS primary
bowel prep, enema, diet/NPO, colonoscopy as per CRS
Cough
cont tessalon perle prn
reports being placed on abx outpt in case of infection/pna and in preparation for surgical intervention as above
cont prior prescribed cefuroxime for now
chest Chest X-ray in AM
Type 2 diabetes mellitus-
HbA1c at 7.9
Hold Farxiga, continue SSI.
monitor and titrate insulin regimen as necessary
Essential hypertension-
home Losartan and metoprolol once with holding parameters
IV Hydralazine and Metoprolol prn
monitor and titrate antihypertensive regimen as necessary
DVT prophylaxis-SCD.
CODE STATUS full code.
I spent a total of 80 minutes with the patient or on the floor. More than 50% of this time involved counseling and coordination of care.
[2025-02-04] MEDS: NOVOLOG FLEXPEN-LOW RESISTANCE 1 UNITS SC ×2 (11:27→17:11)
[2025-02-04] MEDS: TYLENOL 1000 MG PO ×2 (11:38→22:21)
[2025-02-04 15:05] VITALS: BP 156/92
--- NOTE | 2025-02-04 15:38 | CM ---
Patient seen bedside with son.
Patient IA completed.
Multiple hospitalizations for bowel surgery and complications.
Patient for colostomy reversal on , bowel prep initiated.
Patient lives in a 2 story home.
Patients son and college age daughter live with her (daughter is way at school).
Patient has been to skilled rehab at [facility] and does not wish to return.
Son has patient set up on 1st floor and he assists with colostomy care.
Very supportive family.
Patient has a RW and commode at home.
Due to proximity of the bathroom, [facility] already spoke with the and they go the area.
patient may want a raised toilet seat with rails.
liaison updated.
PCP: Jesus Hughes
Pharmacy: [facility]
Plan: home with VN (please verify what address patient is going to) and possible raised toilet seat.
--- NOTE | 2025-02-04 16:12 | VNURNOTE ---
Home Health Liaison spoke with patient to discuss [facility] nurse/therapy, visits, schedule and homebound status. Patient had [facility] recently and is familiar with services. She is agreeable and understands that visits at home will be 2-3 x per week to
assess and teach medical management.
Patient has [facility] contact information. She is aware that [facility] will contact them for start of care in 1-2 days after discharge from . This author investigated raised toilet seats w/rails. Spoke with Chinmay at [employer]- he stated they are
not covered by insurance. typically are $35/40 out of pocket. Provided info to patient. She plans on buying one from [employer] as well as a shower chair.
[facility] referral completed in [facility].
[2025-02-04 16:31] LABS: Glucose - Point of Care 188 mg/dl (70-99)
[2025-02-04] MEDS: LOPRESSOR 100 MG PO (17:06)
[2025-02-04] MEDS: COZAAR 50 MG PO (17:06)
[2025-02-04] MEDS: NEURONTIN 100 MG PO ×2 (17:07→22:07)
[2025-02-04 19:00] VITALS: BP 184/88
[2025-02-04] MEDS: NORMOSOL-R/PLASMALYTE-A 1000 IV (20:21)
[2025-02-04] MEDS: CEFTIN 250 MG PO (20:30)
[2025-02-04 21:38] LABS: Glucose - Point of Care 165 mg/dl (70-99)
[2025-02-04 23:00] VITALS: BP 177/87
[2025-02-04 23:05] LABS: Urine Albumin 3+ (Neg - Trace); Urine Bilirubin Negative (Negative); Urine Character Clear (Clear); Urine Color Yellow; Urine Glucose 1+ (Negative); Urine Ketone Negative (Negative); Urine Leukocyte 3+ (Negative); Urine Nitrite Negative (Negative); Urine Occult Blood 2+ (Negative); Urine Urobilinogen Negative (Neg - 1+)
[2025-02-04 23:13] LABS: Urine Squamous Cell 26-30 /LPF (Few)
[2025-02-04 23:15] LABS: Urine Red Blood Cell None Seen /HPF (0-2); Urine White Cell 50-60 /HPF (0-5)
[2025-02-04 23:16] LABS: Urine Yeast Moderate (Negative)
[2025-02-04] MEDS: APRESOLINE 5 MG IV (23:38)
[2025-02-04] MEDS: NOVOLOG FLEXPEN-LOW RESISTANCE SC (23:49)
[2025-02-05] VITALS (9 sets, daily range): BP systolic 19–178; BP diastolic 70–101
[2025-02-05 05:45] LABS: % Basophils 0.5 % (0-2); % Eosinophils 2.6 % (0-6); % Immature Granulocytes 0.5 % (0-0.5); % Lymphocytes 23.2 % (20.5-51.1); % Monocytes 8.2 % (1.7-9.3); Absolute Eosinophils 0.2 10^3/uL (0-0.7); Absolute Monocytes 0.7 10^3/uL (0.1-0.6); Absolute Neutrophils 5.7 10^3/uL (1.4-6.5); Hematocrit 35.2 % (37.0-47.0); Hemoglobin 11.8 g/dL (12.0-16.0); Mean Corp Hgb Conc. 33.5 g/dL (33.0-37.0); Mean Corpuscular Hgb 29.7 pg (27.0-31.0); Mean Corpuscular Volume 88.7 fL (81.0-99.0); Mean Platelet Volume 10.7 fL (7.4-10.4); Nucleated Red Blood Cells % 0 %; Platelet Count 192 10^3/uL (130-400); Red Blood Cell Count 3.97 10^6/uL (4.20-5.40); Red Cell Dist. Width 13.6 % (11.5-14.5); White Blood Cell Count 8.8 10^3/uL (4.8-10.8)
[2025-02-05 05:47] LABS: Glucose - Point of Care 155 mg/dl (70-99)
[2025-02-05] MEDS: NOVOLOG FLEXPEN-LOW RESISTANCE 1 UNITS SC ×2 (05:51→17:25)
[2025-02-05 06:11] LABS: Blood Urea Nitrogen 23 mg/dl (7-17); Calcium 9.9 mg/dl (8.4-10.2); Carbon Dioxide 25 mmol/L (22-30); Chloride 111 mmol/L (98-107); Estimated Creatinine Clearance 114 ml/min; Glucose 161 mg/dl (70-99); Magnesium 1.7 mg/dl (1.6-2.3); Potassium 4.4 mmol/L (3.5-5.1); Sodium 141 mmol/L (135-145); eGFR > 60.00
--- NOTE | 2025-02-05 06:44 | PTCARENOTE ---
EKG done on pt by accident. Not done for chest pain as order states.
[2025-02-05] MEDS: NEURONTIN 100 MG PO ×3 (09:06→22:06)
[2025-02-05] MEDS: CEFTIN 250 MG PO (09:06)
[2025-02-05] MEDS: LOW STRENGTH ASPIRIN 81 MG PO (09:06)
[2025-02-05] MEDS: TYLENOL 1000 MG PO ×2 (09:12→17:27)
--- NOTE | 2025-02-05 09:14 | W.PN.HOSP.TC ---
Today's Communication/Plan
-
see a/p
Assessment / Plan
Assessment / Plan
Physical Exam
General: No pallor, cyanosis, or jaundice. Obese
HEENT: Throat clear. PERRLA Normocephalic atraumatic
NECK: Supple. No JVD Carotid Bruits
RESPIRATORY: Lungs clear to auscultation. No crackles wheezes stridor
CVS: S1, S2 normal. RRR. No murmur, rub or gallop.
ABDOMEN: Soft, non-tender. No distension. BS+/normal. Colostomy present
EXTREMITIES: No peripheral cyanosis or edema.
CLINICAL LABORATORY SCIENCE PROFESSOR: AOx3. Conversant coherent
IMPRESSION:
59F direct admit for bowel prep prior to undergoing colostomy reversal. Complicated medical history, initially had urgent sigmoidectomy with colostomy creation for ruptured diverticulitis 04/2024 complicated by splenic capsular tear that eventually
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 Subsequently underwent exploratory laparotomy with partial small bowel resection x 2 and takedown of fistula 07/2024. Prolonged hospital course nearly 2 months. Direct admit as per CRS to undergo a 2-day
bowel prep followed by colonoscopy and then subsequent colostomy reversal. PMHx also includes HTN HLD DM Obesity remote hx Endometrial and Breast Ca Hx Coarctation Aorta stent placement. Hospitalist service consulted for mgmt HTN and DM.
PLAN:
Hx Perforated sigmoid diverticulitis-
S/p Caridad procedure, bowel resection x 2, colostomy formation, iatrogenic splenic capsular repair, takedown fistula
Continue ostomy/wound care.
bowel prep, enema, diet/NPO, colonoscopy, colostomy reversal as per CRS primary
Cough
cont tessalon perle prn
reports being placed on abx outpt in case of infection/pna and in preparation for surgical intervention as above
chest Chest X-ray appreciated no acute abn's
dc cefuroxime
surgical abx ppx as per CRS primary
Type 2 diabetes mellitus-
HbA1c at 7.9
Hold Farxiga, continue SSI.
monitor and titrate insulin regimen as necessary
Essential hypertension-
resume home Losartan 50 mg BID, metoprolol 100 mg BID, Aldactone 25 mg daily w/ holding parameters
cont hold home Nifedipine for now
IV Hydralazine and Labetalol prn SBP>160 or DBP>100 (hydralazine to be used first)
IV Metoprolol prn persistent HR>120 (has not required)
monitor and titrate antihypertensive regimen as necessary
DVT prophylaxis-SCD.
CODE STATUS full code.
Discussed with patient and patient's son Anshul
I spent a total of 50 minutes with the patient or on the floor. More than 50% of this time involved counseling and coordination of care.
Anticipated Discharge: 24 - 48 hours
Subjective/Interval History
-
Date of Service: February 05, 2025
No acute distress resting comfortably in bed. Reports feeling well s/p colonoscopy. Son Anshul present during evaluation.
Objective Data
-
Labs:
Laboratory Results
02/05/25
05:23
WBC 8.8
Hgb 11.8 L
Hct 35.2 L
Plt Count 192 D
Sodium 141
Potassium 4.4
Chloride 111 H
Carbon Dioxide 25
BUN 23 H
Creatinine 0.6
Glucose 161 H
Calcium 9.9
Vital Signs:
Vital Signs
Temp Pulse Resp BP Pulse Ox
98.4 F 94 14 178/96 97
02/05/25 07:29 02/05/25 07:29 02/05/25 07:29 02/05/25 07:29 02/05/25 07:29
I&O
02/04/25 02/05/25 02/06/25
06:59 06:59 06:59
Intake Total 2000 / 2000 1800 / 1800
Output Total 400 / 750 3550 / 3550
Balance 1600 / 1250 -1750 / -1750
[2025-02-05] MEDS: NORMOSOL-R/PLASMALYTE-A 1000 IV ×2 (09:34→22:03)
[2025-02-05] MEDS: APRESOLINE 5 MG IV (09:35)
[2025-02-05 11:08] LABS: Glucose - Point of Care 197 mg/dl (70-99)
[2025-02-05 11:47] LABS: Glucose - Point of Care 186 mg/dl (70-99)
[2025-02-05] MEDS: NOVOLOG FLEXPEN-LOW RESISTANCE SC (12:15)
--- NOTE | 2025-02-05 12:34 | W.PN.CRS1 ---
Addendum entered and electronically signed by Jesus Farnsworth MD 02/05/25 12:49:
Patient's son updated as to colonoscopy results.
Original Note:
Today's Communication / Plan
-
Clears and Mag Citrate. NPO after MN.
Assessment/Plan
-
59-year-old female well-known to me due to her prior surgical history here with plans for bowel prep, followed by colonoscopy, followed by robotic colostomy takedown.
1. colonoscopy just completed--prep fair. Some diverticulosis. Top of rectal stump about 16 cm. Will give some Mag Citrate later today.
2. clears remainder of day. NPO after MN. OR will be tomorrow am (OR start time 7:15).
3. WBC normalized. Suspect was dehydration.
4. appreciate hospitalist help.
Subjective Data
Subjective Data
Date of Service: February 05, 2025
No new complaints.
Sore throat.
No abdominal complaints.
Objective Data
-
Vital Signs
Temp Pulse Resp BP Pulse Ox
97.8 F 99 14 169/101 98
02/05/25 10:54 02/05/25 10:54 02/05/25 10:54 02/05/25 10:54 02/05/25 10:54
Intake & Output
02/04/25 02/05/25 02/06/25
06:59 06:59 06:59
Intake Total 1999 / 1999 1800 / 1800
Output Total 400 / 750 3550 / 3550
Balance 1600 / 1250 -1750 / -1750
Intake:
Oral fluids 1999 / 1999 1800 / 1800
Output:
Liquid stool amount 400 / 750 3350 / 3350
Colostomy 400 / 750 3350 / 3350
Urine, Voided 200 / 200
Other:
Number of approximated MODERATE 4 4
amounts of urine
How many times incontinent 2
SATURATED amount urine
Number of unmeasured liquid
stools
Colostomy 2
Lab Results
02/05/25 05:23
02/05/25 05:23
Physical Exam
-
General: No Acute Distress
Chest: Clear
Cardiovascular: Regular Rate & Rhythm
Abdomen: Non Distended, Non Tender and Other (stoma viable with output)
Extremities: No Calf Tenderness
[2025-02-05 12:42] LABS: Glucose - Point of Care 186 mg/dl (70-99)
[2025-02-05] MEDS: FLAGYL 1000 MG PO ×2 (16:01→17:24)
[2025-02-05 17:09] LABS: Glucose - Point of Care 163 mg/dl (70-99)
[2025-02-05] MEDS: CITROMA 300 ML PO (17:23)
[2025-02-05] MEDS: OCEAN, SALINE MIST 2 SPRAYS NASAL ×2 (17:25→22:06)
[2025-02-05] MEDS: COZAAR 50 MG PO (22:05)
[2025-02-05] MEDS: LOPRESSOR 100 MG PO (22:05)
[2025-02-06] VITALS (19 sets, daily range): BP systolic 50–197; BP diastolic 58–101
[2025-02-06] MEDS: FLAGYL 1000 MG PO (00:01)
[2025-02-06 00:09] LABS: Glucose - Point of Care 144 mg/dl (70-99)
[2025-02-06] MEDS: NOVOLOG FLEXPEN-LOW RESISTANCE SC ×4 (00:09→20:01)
[2025-02-06] MEDS: TYLENOL 1000 MG PO ×2 (01:14→06:05)
[2025-02-06] MEDS: HEPARIN 5000 UNITS SC (06:05)
[2025-02-06] MEDS: NEURONTIN 600 MG PO (06:07)
[2025-02-06 06:12] LABS: Glucose - Point of Care 152 mg/dl (70-99)
[2025-02-06] MEDS: ENTEREG 12 MG PO (06:27)
[2025-02-06 06:42] LABS: % Basophils 0.2 % (0-2); % Eosinophils 3.1 % (0-6); % Immature Granulocytes 0.7 % (0-0.5); % Lymphocytes 20.3 % (20.5-51.1); % Monocytes 7.8 % (1.7-9.3); % Neutrophils 67.9 % (42.2-75.2); Absolute Eosinophils 0.3 10^3/uL (0-0.7); Absolute Immature Granulocytes 0.1 10^3/uL (0-0.05); Absolute Lymphocytes 1.8 10^3/uL (1.2-3.4); Absolute Monocytes 0.7 10^3/uL (0.1-0.6); Absolute Neutrophils 6.1 10^3/uL (1.4-6.5); Hematocrit 33.8 % (37.0-47.0); Hemoglobin 11.2 g/dL (12.0-16.0); Mean Corp Hgb Conc. 33.1 g/dL (33.0-37.0); Mean Corpuscular Hgb 29.9 pg (27.0-31.0); Mean Corpuscular Volume 90.1 fL (81.0-99.0); Mean Platelet Volume 10.6 fL (7.4-10.4); Nucleated Red Blood Cells % 0 %; Platelet Count 182 10^3/uL (130-400); Red Blood Cell Count 3.75 10^6/uL (4.20-5.40); Red Cell Dist. Width 13.9 % (11.5-14.5)
[2025-02-06 07:15] LABS: Blood Urea Nitrogen 22 mg/dl (7-17); Calcium 9.2 mg/dl (8.4-10.2); Carbon Dioxide 22 mmol/L (22-30); Chloride 109 mmol/L (98-107); Estimated Creatinine Clearance 68 ml/min; Glucose 147 mg/dl (70-99); Magnesium 1.9 mg/dl (1.6-2.3); Phosphorus 4.7 mg/dl (2.5-4.5); Potassium 4.4 mmol/L (3.5-5.1); Sodium 139 mmol/L (135-145); eGFR > 60.00
--- NOTE | 2025-02-06 08:25 | W.PN.HOSP.TC ---
Today's Communication/Plan
-
cont post-op care as per CRS
blood pressure control
Pain control
Glycemic control
Assessment / Plan
Assessment / Plan
Physical Exam
General: No pallor, cyanosis, or jaundice. Obese. No acute distress, appears comfortable
HEENT: Throat clear. PERRLA Normocephalic atraumatic. NGT in place
NECK: Supple. No JVD Carotid Bruits
RESPIRATORY: Lungs clear to auscultation. No crackles wheezes stridor
CVS: S1, S2 normal. RRR. No murmur, rub or gallop.
ABDOMEN: Soft, decreased bowel sounds
EXTREMITIES: No peripheral cyanosis or edema.
MARKET DEVELOPMENT ANALYST: Sedated but arousable limited communication d/t lethargy
IMPRESSION:
59F direct admit for bowel prep prior to undergoing colostomy reversal. Complicated medical history, initially had urgent sigmoidectomy with colostomy creation for ruptured diverticulitis 04/2024 complicated by splenic capsular tear that eventually
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 Subsequently underwent exploratory laparotomy with partial small bowel resection x 2 and takedown of fistula 07/2024. Prolonged hospital course nearly 2 months. Direct admit as per CRS to undergo a 2-day
bowel prep followed by colonoscopy and then subsequent colostomy reversal. PMHx also includes HTN HLD DM Obesity remote hx Endometrial and Breast Ca Hx Coarctation Aorta stent placement. Hospitalist service consulted for mgmt HTN and DM.
PLAN:
Hx Perforated sigmoid diverticulitis-
S/p Caridad procedure, bowel resection x 2, colostomy formation, iatrogenic splenic capsular repair, takedown fistula
cont wound care
bowel prep, enema, diet/NPO, colonoscopy, colostomy reversal 02/06/25, post-op care, NGT as per CRS primary
With Colostomy reversal, Urology Dr. Pandey assisted with Ontiveros, stents, ureteral ICG. R stent removed at end of case.
Cough
Mild Leukocytosis since resolved
cont tessalon perle prn
reports being placed on abx outpt in case of infection/pna and in preparation for surgical intervention as above
chest Chest X-ray appreciated no acute abn's
dc cefuroxime
surgical abx ppx as per CRS primary
Type 2 diabetes mellitus-
HbA1c at 7.9
Hold Farxiga, continue SSI Q6 while strict npo
Novolog 3U Q6
monitor and titrate insulin regimen as necessary
Essential hypertension-
home Losartan 50 mg BID, metoprolol 100 mg BID, Aldactone 25 mg daily on hold d/t strict NPO post-op care NGT continuous suction as per CRS (only exception baby asa)
cont hold home Nifedipine
IV Hydralazine and Labetalol prn SBP>160 or DBP>100
IV Metoprolol prn persistent HR>120 (has not required)
monitor and titrate antihypertensive regimen as necessary
DVT prophylaxis-SCD.
CODE STATUS full code.
Discussed with patient's son Anshul and daughter Sharmin
I spent a total of 50 minutes with the patient or on the floor. More than 50% of this time involved counseling and coordination of care.
Anticipated Discharge: > 48 hours
Subjective/Interval History
-
Date of Service: February 06, 2025
sedated following colostomy reversal but arousable limited communication d/t lethargy. otherwise appears comfortable at this time no acute distress.
Objective Data
-
Labs:
Laboratory Results
02/06/25
05:57
WBC 9.0
Hgb 11.2 L
Hct 33.8 L
Plt Count 182
Sodium 139
Potassium 4.4
Chloride 109 H
Carbon Dioxide 22
BUN 22 H
Creatinine 1.0
Glucose 147 H
Calcium 9.2
Vital Signs:
Vital Signs
Temp Pulse Resp BP Pulse Ox
98.1 F 73 18 140/85 98
02/05/25 19:40 02/06/25 00:35 02/05/25 19:40 02/06/25 00:35 02/06/25 00:35
I&O
02/05/25 02/06/25 02/07/25
06:59 06:59 06:59
Intake Total 1800 / 1800 680 / 680
Output Total 3550 / 3550
Balance -1750 / -1750 680 / 680
[2025-02-06] MEDS: COZAAR PO (15:03)
[2025-02-06] MEDS: LOPRESSOR PO (15:03)
[2025-02-06] MEDS: NEURONTIN PO ×2 (15:03→17:39)
[2025-02-06] MEDS: LOW STRENGTH ASPIRIN PO (15:03)
[2025-02-06] MEDS: OCEAN, SALINE MIST NASAL ×3 (15:04→17:37)
[2025-02-06] MEDS: NORMOSOL-R/PLASMALYTE-A IV (15:04)
[2025-02-06 15:45] LABS: Hepatitis C Antibody Negative (Negative)
--- NOTE | 2025-02-06 16:12 | W.IMMPOSTOP ---
Addendum entered and electronically signed by Jesus Farnsworth MD 02/06/25 18:21:
Patient's son, Anshul, updated via phone conversation.
Original Note:
Surgical Immed Post Op Note
-
Primary Surgeon: Kermit Farnsworth MD
Assisting Surgeon: Leah Quiles MD; ZAK Armando
Pre-op Diagnosis: 1) colostomy 2) history of perforated diverticulitis
Post-op Diagnosis: same
Procedure Performed: 1) robotic colostomy takedown 2) extensive lysis of adhesions 3) flexible sigmoidoscopy
Anesthesia Type: general plus local
Specimen / Cultures: colostomy
Estimated Blood Loss: 100 cc
Complications: no immediate
Operative Findings: extensive adhesions
#19 Suman in pelvis.
NGT placed.
Ontiveros, stents, ureteral ICG by Dr. Pandey. R stent removed at end of case.
Will send back to med surg.
[2025-02-06 16:37] LABS: Glucose - Point of Care 230 mg/dl (70-99)
[2025-02-06] MEDS: DILAUDID 0.5 MG IV (17:35)
[2025-02-06] MEDS: TRANDATE 10 MG IV (17:35)
[2025-02-06] MEDS: NOVOLOG vial 2 UNITS SC (17:40)
[2025-02-06] MEDS: ACULAR 0.5% EYE DROPS 1 DROP BOTH EYES ×2 (18:09→22:11)
[2025-02-06] MEDS: TORADOL 10 MG IV (18:11)
[2025-02-06] MEDS: NORMOSOL-R/PLASMALYTE-A 1000 IV (18:49)
--- NOTE | 2025-02-06 19:19 | PTCARENOTE ---
Patient in OR/PACU for entirety of shift for robotic colostomy take down. Received report from PACU towards end of shift and information relayed to oncoming shift resuming care.
[2025-02-06] MEDS: TYLENOL PO (19:58)
--- NOTE | 2025-02-06 21:40 | VATNOTE ---
spoke with son re. right hand IV placed by OR; Son stated 'someone' approved pt for use of right arm since only 1 node was removed and that pt had very 'low chance of lymphedema'. Right hand left in place. No limb alert bracelet had been on right
wrist.
[2025-02-06] MEDS: OCEAN, SALINE MIST 2 SPRAYS NASAL (22:10)
[2025-02-07] VITALS (8 sets, daily range): BP systolic 137–175; BP diastolic 72–89; PULSE 83; O2SAT 98; BMI 33.2
[2025-02-07 00:07] LABS: Glucose - Point of Care 214 mg/dl (70-99)
[2025-02-07] MEDS: NOVOLOG FLEXPEN-LOW RESISTANCE 2 UNITS SC (00:31)
[2025-02-07] MEDS: TORADOL 10 MG IV ×4 (00:32→17:16)
[2025-02-07] MEDS: TYLENOL PO (01:20)
[2025-02-07] MEDS: TYLENOL 650 MG PO ×5 (04:32→22:10)
[2025-02-07 05:51] LABS: Glucose - Point of Care 170 mg/dl (70-99)
[2025-02-07] MEDS: NOVOLOG FLEXPEN-LOW RESISTANCE 1 UNITS SC ×2 (06:20→12:24)
[2025-02-07] MEDS: NOVOLOG FLEXPEN 3 UNITS SC ×3 (06:20→17:17)
[2025-02-07 08:37] LABS: % Basophils 0.2 % (0-2); % Eosinophils 0.1 % (0-6); % Immature Granulocytes 0.7 % (0-0.5); % Lymphocytes 6.2 % (20.5-51.1); % Monocytes 6.5 % (1.7-9.3); % Neutrophils 86.3 % (42.2-75.2); Absolute Immature Granulocytes 0.1 10^3/uL (0-0.05); Absolute Lymphocytes 0.7 10^3/uL (1.2-3.4); Absolute Monocytes 0.7 10^3/uL (0.1-0.6); Absolute Neutrophils 9.4 10^3/uL (1.4-6.5); Hematocrit 28.6 % (37.0-47.0); Hemoglobin 9.8 g/dL (12.0-16.0); Mean Corp Hgb Conc. 34.3 g/dL (33.0-37.0); Mean Corpuscular Hgb 30.2 pg (27.0-31.0); Mean Platelet Volume 11.4 fL (7.4-10.4); Nucleated Red Blood Cells % 0 %; Platelet Count 146 10^3/uL (130-400); Red Blood Cell Count 3.25 10^6/uL (4.20-5.40); Red Cell Dist. Width 14.2 % (11.5-14.5); White Blood Cell Count 10.9 10^3/uL (4.8-10.8)
--- NOTE | 2025-02-07 08:50 | W.PN.HOSP.TC ---
Today's Communication/Plan
-
Pain control
Blood Pressure Control
Glycemic Control
Eventual restart home oral antihypertensives when cleared for oral meds as per CRS
Assessment / Plan
Assessment / Plan
Physical Exam
General: No pallor, cyanosis, or jaundice. Obese. No acute distress, appears comfortable
HEENT: Throat clear. PERRLA Normocephalic atraumatic. NGT in place
NECK: Supple. No JVD Carotid Bruits
RESPIRATORY: Lungs clear to auscultation. No crackles wheezes stridor
CVS: S1, S2 normal. RRR. No murmur, rub or gallop.
ABDOMEN: Soft, bowel sounds present
EXTREMITIES: No peripheral cyanosis or edema.
CREW BOSS: AOx3 conversant coherent
IMPRESSION:
59F direct admit for bowel prep prior to undergoing colostomy reversal. Complicated medical history, initially had urgent sigmoidectomy with colostomy creation for ruptured diverticulitis 04/2024 complicated by splenic capsular tear that eventually
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 Subsequently underwent exploratory laparotomy with partial small bowel resection x 2 and takedown of fistula 07/2024. Prolonged hospital course nearly 2 months. Direct admit as per CRS to undergo a 2-day
bowel prep followed by colonoscopy and then subsequent colostomy reversal. PMHx also includes HTN HLD DM Obesity remote hx Endometrial and Breast Ca Hx Coarctation Aorta stent placement. Hospitalist service consulted for mgmt HTN and DM.
PLAN:
Hx Perforated sigmoid diverticulitis-
S/p Caridad procedure, bowel resection x 2, colostomy formation, iatrogenic splenic capsular repair, takedown fistula
cont wound care
bowel prep, enema, diet/NPO, colonoscopy, colostomy reversal 02/06/25, post-op care, NGT as per CRS primary
With Colostomy reversal, Urology Dr. Pandey assisted with Ontiveros, stents, ureteral ICG. R stent removed at end of case.
Post Op Ocular inflammation b/l
cont ketorolac eye drops for now
Cough
Mild Leukocytosis since resolved
cont tessalon perle prn
reports being placed on abx cefuroxime outpt in case of infection/pna and in preparation for surgical intervention as above
chest Chest X-ray appreciated no acute abn's
outpt cefuroxime completed
surgical abx ppx as per CRS primary
Type 2 diabetes mellitus-
HbA1c at 7.9
Hold Farxiga, continue SSI Q6 while strict npo
Novolog 3U Q6
monitor and titrate insulin regimen as necessary
Essential hypertension-
home Losartan 50 mg BID, metoprolol 100 mg BID, Aldactone 25 mg daily on hold d/t strict NPO post-op care NGT continuous suction as per CRS (only exception baby asa)
cont hold home Nifedipine
IV Hydralazine and Labetalol prn SBP>160 or DBP>100
IV Metoprolol prn persistent HR>120 (has not required)
monitor and titrate antihypertensive regimen as necessary
DVT prophylaxis-SCD.
CODE STATUS full code.
Discussed with patient's daughter Sharmin
I spent a total of 50 minutes with the patient or on the floor. More than 50% of this time involved counseling and coordination of care.
Anticipated Discharge: > 48 hours
Subjective/Interval History
-
Date of Service: February 07, 2025
No acute distress appears comfortable at this time. NGT in place. reports blurry vision right eye since waking up after the colostomy reversal. Denies eye pain or itching. Reporting bowel movements/flatus.
Objective Data
-
Labs:
Laboratory Results
02/07/25
08:04
WBC 10.9 H
Hgb 9.8 L
Hct 28.6 L
Plt Count 146
Sodium Pending
Potassium Pending
Chloride Pending
Carbon Dioxide Pending
BUN Pending
Creatinine Pending
Glucose Pending
Calcium Pending
Vital Signs:
Vital Signs
Temp Pulse Resp BP Pulse Ox
97.9 F 79 17 175/83 100
02/07/25 07:19 02/07/25 07:19 02/07/25 07:19 02/07/25 07:19 02/07/25 07:19
I&O
02/06/25 02/07/25 02/08/25
06:59 06:59 06:59
Intake Total 680 / 680 100 / 100
Output Total 1050 / 1050
Balance 680 / 680 -950 / -950
[2025-02-07] MEDS: PROTONIX 40 MG PO (09:10)
[2025-02-07] MEDS: ENTEREG 12 MG PO ×2 (09:10→22:10)
[2025-02-07] MEDS: LOW STRENGTH ASPIRIN 81 MG PO (09:11)
[2025-02-07] MEDS: OCEAN, SALINE MIST 2 SPRAYS NASAL ×3 (09:13→17:18)
[2025-02-07] MEDS: ACULAR 0.5% EYE DROPS 1 DROP BOTH EYES ×4 (09:13→22:13)
[2025-02-07 09:14] LABS: Blood Urea Nitrogen 27 mg/dl (7-17); Calcium 8.4 mg/dl (8.4-10.2); Carbon Dioxide 23 mmol/L (22-30); Chloride 107 mmol/L (98-107); Estimated Creatinine Clearance 62 ml/min; Glucose 161 mg/dl (70-99); Magnesium 2.3 mg/dl (1.6-2.3); Phosphorus 4.7 mg/dl (2.5-4.5); Potassium 4.9 mmol/L (3.5-5.1); Sodium 137 mmol/L (135-145); eGFR 57.17
[2025-02-07] MEDS: NORMOSOL-R/PLASMALYTE-A 1000 IV ×2 (09:16→22:12)
[2025-02-07 11:59] LABS: Glucose - Point of Care 151 mg/dl (70-99)
--- NOTE | 2025-02-07 12:23 | W.PN.CRS1 ---
Today's Communication / Plan
-
lovenox
stent removed
wound care
oob with pt/ot
Assessment/Plan
-
POD#1 1) robotic colostomy takedown 2) extensive lysis of adhesions 3) flexible sigmoidoscopy
Vitals normal
WBC 10.9, Hgb 9.8
Creatinine 1.1 (1.0)
-NGT in place. Keep until bowel function.
-OOB with PT/OT. Okay to keep ngt clamped for 30 minutes for ambulation.
-OR pathology pending
-Start lovenox for dvt prophylaxis. TEDS/SCDS in place.
-Trend labs
-Daily wound care
-Pain control: Tylenol/Toradol standing, Dilaudid PRN
-Stent removed at bedside. D/C aguilar tomorrow.
-Okay for ice chips. Continue IVFs.
-Maintain JODIE drain until discharge
Subjective Data
Procedure
02/06/2025- 1) robotic colostomy takedown 2) extensive lysis of adhesions 3) flexible sigmoidoscopy
Subjective Data
Date of Service: February 07, 2025
Patient states she is in some pain. She is very sleepy. Denies nausea or vomiting. Her mouth is dry and she wants ice chips. She may have had some flatus.
Objective Data
-
Vital Signs
Temp Pulse Resp BP Pulse Ox
98.0 F 79 17 137/80 100
02/07/25 11:01 02/07/25 11:01 02/07/25 11:01 02/07/25 11:01 02/07/25 11:01
Intake & Output
02/06/25 02/07/25 02/08/25
06:59 06:59 06:59
Intake Total 680 / 680 100 / 100
Output Total 1050 / 1050
Balance 680 / 680 -950 / -950
Intake:
Oral fluids 680 / 680
IV fluids (Total) 100 / 100
Normosal 100 / 100
Output:
Drain Output (Total) 100 / 100
Right Lower Abdomen Jeremi- 100 / 100
Luevano
Gastrointestinal tube output ( 200 / 200
Total)
[place] Sump 200 / 200
Urine, Aguilar 750 / 750
Other:
Number of approximated MODERATE 3
amounts of urine
Lab Results
02/07/25 08:04
02/07/25 08:04
Physical Exam
-
General: No Acute Distress and AOx3
Abdomen: Soft, Non Distended and Tender (around incision site)
Skin: Warm and Dry
Wound: Dressing in Place
--- NOTE | 2025-02-07 16:48 | CM ---
Patient seen at bedside in [facility]. Patient anticipates she will go home with [facility], currently has NG tube. CM will continue to follow for discharge planning needs.
Plan; home with [facility]
[2025-02-07] MEDS: LOVENOX 40 MG SC (17:16)
[2025-02-07] MEDS: NOVOLOG FLEXPEN-LOW RESISTANCE SC (17:24)
[2025-02-07 17:31] LABS: Glucose - Point of Care 130 mg/dl (70-99)
[2025-02-07] MEDS: OCEAN, SALINE MIST NASAL (22:14)
[2025-02-08] MEDS: TORADOL 10 MG IV ×5 (00:36→23:13)
[2025-02-08] MEDS: TYLENOL PO (01:00)
[2025-02-08 01:11] LABS: Glucose - Point of Care 124 mg/dl (70-99)
[2025-02-08] MEDS: NOVOLOG FLEXPEN-LOW RESISTANCE SC ×5 (01:12→23:32)
[2025-02-08] MEDS: NOVOLOG FLEXPEN 3 UNITS SC ×2 (01:13→06:07)
[2025-02-08] MEDS: TYLENOL 650 MG PO ×6 (03:18→23:14)
[2025-02-08 03:25] VITALS: BP 141/87
[2025-02-08 06:04] LABS: Glucose - Point of Care 121 mg/dl (70-99)
[2025-02-08 06:59] LABS: % Basophils 0.2 % (0-2); % Eosinophils 2.9 % (0-6); % Immature Granulocytes 0.5 % (0-0.5); % Lymphocytes 12.3 % (20.5-51.1); % Monocytes 6.3 % (1.7-9.3); % Neutrophils 77.8 % (42.2-75.2); Absolute Eosinophils 0.3 10^3/uL (0-0.7); Absolute Immature Granulocytes 0.1 10^3/uL (0-0.05); Absolute Lymphocytes 1.3 10^3/uL (1.2-3.4); Absolute Monocytes 0.7 10^3/uL (0.1-0.6); Absolute Neutrophils 8.4 10^3/uL (1.4-6.5); Hematocrit 28.3 % (37.0-47.0); Hemoglobin 9.3 g/dL (12.0-16.0); Mean Corp Hgb Conc. 32.9 g/dL (33.0-37.0); Mean Corpuscular Volume 91.3 fL (81.0-99.0); Mean Platelet Volume 10.7 fL (7.4-10.4); Nucleated Red Blood Cells % 0 %; Platelet Count 154 10^3/uL (130-400); Red Cell Dist. Width 14.3 % (11.5-14.5); White Blood Cell Count 10.7 10^3/uL (4.8-10.8)
[2025-02-08 07:26] VITALS: BP 164/98
[2025-02-08 07:28] LABS: Blood Urea Nitrogen 24 mg/dl (7-17); Calcium 8.2 mg/dl (8.4-10.2); Carbon Dioxide 25 mmol/L (22-30); Chloride 108 mmol/L (98-107); Estimated Creatinine Clearance 85 ml/min; Glucose 121 mg/dl (70-99); Potassium 4.2 mmol/L (3.5-5.1); Sodium 139 mmol/L (135-145); eGFR > 60.00
[2025-02-08] MEDS: LOW STRENGTH ASPIRIN 81 MG PO (09:27)
[2025-02-08] MEDS: ENTEREG 12 MG PO ×2 (09:27→21:00)
[2025-02-08] MEDS: PROTONIX 40 MG PO (09:27)
[2025-02-08] MEDS: ACULAR 0.5% EYE DROPS 1 DROP BOTH EYES ×4 (09:30→21:25)
[2025-02-08] MEDS: OCEAN, SALINE MIST 2 SPRAYS NASAL ×4 (09:31→21:25)
[2025-02-08] MEDS: CHLORASEPTIC/SORE THROAT SPRAY 1 SPRAY PO (09:35)
--- NOTE | 2025-02-08 09:48 | W.PN.CRS1 ---
Addendum entered and electronically signed by Cruzito Contreras MD 02/08/25 12:21:
Patient seen and examined.
Reports some abdominal soreness. No nausea or vomiting. Multiple episodes of flatus and loose nonbloody BMs. No chest pain or shortness of breath. No lower extremity pain or discomfort. Afebrile. OOB/ambulating.
Gen: NAD
HEENT: NGT with minimal non-bilious outputs
Abd: soft, mild/moderate tenderness diffusely, prior incising well healed, old ostomy site dressing c/d/i
Patient is a 59 yo F with h/o perforated diverticulitis with intraabdominal abscesses and colostomy creation
POD#2 1) robotic colostomy takedown 2) extensive lysis of adhesions 3) flexible sigmoidoscopy
HTN with tachycardia, Afebrile
No leukocytosis, h/h stable
Clinically doing well with passage of flatus and stools. Abdominal discomfort not unexpected or worrisome at this time, possibly related to increase activities yesterday. This combined with insufficient beta-blockade with IV therapy likely
explains her tachycardia and hypertension. No worrisome signs for cardiopulmonary source at this time. Continue to monitor closely. Plan to DC NGT and start sips of clears. Okay to resume necessary home oral meds.
-D/C NGT
-OK for sips of clears/PO meds
-Continue IVFs.
-Pain control: Tylenol/Toradol standing, Dilaudid PRN
-DC Aguilar for voiding trial
-OOB with PT/OT
-Trend labs
-Will need to take down and evaluate her old ostomy site tomorrow
-Maintain JODIE drain until discharge
-DVT: Lovenox, SCDs
-GI: Protonix
Original Note:
Today's Communication / Plan
-
d/c NGT, ok for PO meds
Assessment/Plan
-
59 yo female with h/o perforated diverticulitis with intraabdominal abscesses and colostomy creation
POD#2 1) robotic colostomy takedown 2) extensive lysis of adhesions 3) flexible sigmoidoscopy
HTN with tachycardia, Afebrile
No leukocytosis, h/h stable
Passing flatus/stools
-D/C NGT
-Ok for sips of clears/po meds
-OOB with PT/OT
-Trend labs
-Daily wound care
-Pain control: Tylenol/Toradol standing, Dilaudid PRN
-D/c aguilar for voiding trial
-Continue IVFs.
-Maintain JODIE drain until discharge
-Continue lovenox for dvt prophylaxis. TEDS/SCDS in place.
Medical management as per hospitalist
Subjective Data
Procedure
02/06/2025- 1) robotic colostomy takedown 2) extensive lysis of adhesions 3) flexible sigmoidoscopy
Subjective Data
Date of Service: February 08, 2025
Patient seen and examined at bedside with Dr. Contreras. Denies n/v. Sore throat from NGT. Passing flatus and loose stools overnight. Achy soreness to abdomen but pain otherwise minimal.
Objective Data
-
Vital Signs
Temp Pulse Resp BP Pulse Ox
98.6 F 109 16 164/98 95
02/08/25 07:26 02/08/25 07:26 02/08/25 07:26 02/08/25 07:26 02/08/25 07:26
Intake & Output
02/07/25 02/08/25 02/09/25
06:59 06:59 06:59
Intake Total 100 / 100
Output Total 1050 / 1050 1710 / 1710
Balance -950 / -950 -1710 / -1710
Intake:
IV fluids (Total) 100 / 100
Normosal 100 / 100
Output:
Drain Output (Total) 100 / 100 50 / 50
Right Lower Abdomen Jeremi- 100 / 100 50 / 50
Luevano
Gastrointestinal tube output ( 200 / 200
Total)
[place] Sump 200 / 200
Urine, Aguilar 750 / 750 460 / 460
Urine, Voided 1200 / 1200
Lab Results
02/08/25 06:35
02/08/25 06:35
Physical Exam
-
General: No Acute Distress and AOx3
Abdomen: Soft, Non Distended and Tender (generalized/mild)
Skin: Warm, Dry and Other (JODIE with SSF)
Wound: Dressing in Place
--- NOTE | 2025-02-08 11:00 | PTCARENOTE ---
pt NG tube removed @ 11am per Dr Omer and note from CRS. Pt tolerated procedure well, mild nausea, resolved. 200mL output
[2025-02-08 11:05] VITALS: BP 178/106
[2025-02-08] MEDS: NORMOSOL-R/PLASMALYTE-A 1000 IV ×2 (11:05→22:52)
[2025-02-08] MEDS: COZAAR 50 MG PO ×2 (11:40→21:00)
[2025-02-08] MEDS: LOPRESSOR 100 MG PO ×2 (11:40→21:00)
[2025-02-08 11:58] LABS: Glucose - Point of Care 146 mg/dl (70-99)
--- NOTE | 2025-02-08 14:13 | W.PN.HOSP.TC ---
Today's Communication/Plan
-
Blood pressure Control, resume home metoprolol and losartan with holding parameters
Glycemic Control
Assessment / Plan
Assessment / Plan
Physical Exam
General: No pallor, cyanosis, or jaundice. Obese. No acute distress, appears comfortable
HEENT: Throat clear. PERRLA Normocephalic atraumatic.
NECK: Supple. No JVD Carotid Bruits
RESPIRATORY: Lungs clear to auscultation. No crackles wheezes stridor
CVS: S1, S2 normal. RRR. No murmur, rub or gallop.
ABDOMEN: Soft, bowel sounds present
EXTREMITIES: No peripheral cyanosis or edema.
ARRANGING FUNERAL DIRECTOR: AOx3 conversant coherent
IMPRESSION:
59F direct admit for bowel prep prior to undergoing colostomy reversal. Complicated medical history, initially had urgent sigmoidectomy with colostomy creation for ruptured diverticulitis 04/2024 complicated by splenic capsular tear that eventually
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 Subsequently underwent exploratory laparotomy with partial small bowel resection x 2 and takedown of fistula 07/2024. Prolonged hospital course nearly 2 months. Direct admit as per CRS to undergo a 2-day
bowel prep followed by colonoscopy and then subsequent colostomy reversal. PMHx also includes HTN HLD DM Obesity remote hx Endometrial and Breast Ca Hx Coarctation Aorta stent placement. Hospitalist service consulted for mgmt HTN and DM.
PLAN:
Hx Perforated sigmoid diverticulitis-
S/p Caridad procedure, bowel resection x 2, colostomy formation, iatrogenic splenic capsular repair, takedown fistula
cont wound care
bowel prep, enema, diet/NPO, colonoscopy, colostomy reversal 02/06/25, post-op care, NGT removal as per CRS primary
With Colostomy reversal, Urology Dr. Pandey assisted with Ontiveros, stents, ureteral ICG. R stent removed at end of case.
Post Op Ocular inflammation b/l
cont ketorolac eye drops for now
Cough
Mild Leukocytosis since resolved
cont tessalon perle prn
reports being placed on abx cefuroxime outpt in case of infection/pna and in preparation for surgical intervention as above
chest Chest X-ray appreciated no acute abn's
outpt cefuroxime completed
surgical abx ppx as per CRS primary
Type 2 diabetes mellitus-
HbA1c at 7.9
Hold Farxiga, continue SSI Q6 while strict npo
Novolog 3U Q6
monitor and titrate insulin regimen as necessary
Essential hypertension-
off NGT, okay for oral meds as per CRS
cont home Losartan 50 mg BID, metoprolol 100 mg BID with holding parameters
hold Aldactone and home Nifedipine at this time
IV Hydralazine and Labetalol prn SBP>160 or DBP>100
IV Metoprolol prn persistent HR>120 (has not required)
monitor and titrate antihypertensive regimen as necessary
DVT prophylaxis-SCD.
CODE STATUS full code.
Discussed with patient and patient's son Anshul
I spent a total of 45 minutes with the patient or on the floor. More than 50% of this time involved counseling and coordination of care.
Anticipated Discharge: 24 - 48 hours
Subjective/Interval History
-
Date of Service: February 08, 2025
no acute distress, appears comfortable at this time. Endorses flatus/bowel movements. Right eye blurry vision improving.
Objective Data
-
Labs:
Laboratory Results
02/08/25
06:35
WBC 10.7
Hgb 9.3 L
Hct 28.3 L
Plt Count 154
Sodium 139
Potassium 4.2
Chloride 108 H
Carbon Dioxide 25
BUN 24 H
Creatinine 0.8
Glucose 121 H
Calcium 8.2 L
Vital Signs:
Vital Signs
Temp Pulse Resp BP Pulse Ox
99.1 F 90 18 190/86 100
02/08/25 11:05 02/08/25 11:40 02/08/25 11:05 02/08/25 11:40 02/08/25 13:47
I&O
02/07/25 02/08/25 02/09/25
06:59 06:59 06:59
Intake Total 100 / 100
Output Total 1050 / 1050 1710 / 1710 50 / 50
Balance -950 / -950 -1710 / -1710 -50 / -50
[2025-02-08] MEDS: NOVOLOG FLEXPEN SC ×3 (14:22→23:32)
[2025-02-08 14:36] VITALS: BP 166/84; PULSE 72; O2SAT 95
[2025-02-08] MEDS: LOVENOX 40 MG SC (18:08)
[2025-02-08 18:21] LABS: Glucose - Point of Care 138 mg/dl (70-99)
[2025-02-08 19:35] VITALS: BP 154/62
[2025-02-08 23:00] VITALS: BP 158/70
[2025-02-08 23:28] LABS: Glucose - Point of Care 109 mg/dl (70-99)
[2025-02-09] MEDS: TYLENOL 650 MG PO ×5 (05:00→23:03)
[2025-02-09] MEDS: TORADOL 10 MG IV ×4 (05:23→23:03)
[2025-02-09 05:29] LABS: Glucose - Point of Care 108 mg/dl (70-99)
[2025-02-09 05:31] LABS: Hematocrit 27.5 % (37.0-47.0); Hemoglobin 9.1 g/dL (12.0-16.0); Mean Corp Hgb Conc. 33.1 g/dL (33.0-37.0); Mean Corpuscular Hgb 30.4 pg (27.0-31.0); Platelet Count 154 10^3/uL (130-400); Red Blood Cell Count 2.99 10^6/uL (4.20-5.40); Red Cell Dist. Width 13.9 % (11.5-14.5)
[2025-02-09 05:41] VITALS: BMI 32.9
[2025-02-09] MEDS: NOVOLOG FLEXPEN-LOW RESISTANCE SC ×3 (05:44→16:40)
[2025-02-09] MEDS: NOVOLOG FLEXPEN SC ×2 (05:45→11:03)
[2025-02-09 05:53] LABS: Blood Urea Nitrogen 19 mg/dl (7-17); Calcium 8.1 mg/dl (8.4-10.2); Carbon Dioxide 27 mmol/L (22-30); Chloride 108 mmol/L (98-107); Estimated Creatinine Clearance 85 ml/min; Glucose 96 mg/dl (70-99); Potassium 4.3 mmol/L (3.5-5.1); Sodium 141 mmol/L (135-145); eGFR > 60.00
--- NOTE | 2025-02-09 07:31 | W.PN.HOSP.TC ---
Today's Communication/Plan
-
Blood pressure control, Aldactone resumed
Glycemic control, cont sliding scale, home Farxiga resumed, Novolog 3U AC Insulin discontinued
Ketorolac Eye Drops switched from scheduled QID to QIDPRN
cont diet, post-op care as per primary CRS
Assessment / Plan
Assessment / Plan
Physical Exam
General: No pallor, cyanosis, or jaundice. Obese. No acute distress, appears comfortable
HEENT: Throat clear. PERRLA Normocephalic atraumatic. Clear conjunctiva b/l
NECK: Supple. No JVD Carotid Bruits
RESPIRATORY: Lungs clear to auscultation. No crackles wheezes stridor
CVS: S1, S2 normal. RRR. No murmur, rub or gallop.
ABDOMEN: Soft, bowel sounds present. JODIE drain present
EXTREMITIES: No peripheral cyanosis or edema.
METAL TRIM ERECTOR: AOx3 conversant coherent
IMPRESSION:
59F direct admit for bowel prep prior to undergoing colostomy reversal. Complicated medical history, initially had urgent sigmoidectomy with colostomy creation for ruptured diverticulitis 04/2024 complicated by splenic capsular tear that eventually
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 Subsequently underwent exploratory laparotomy with partial small bowel resection x 2 and takedown of fistula 07/2024. Prolonged hospital course nearly 2 months. Direct admit as per CRS to undergo a 2-day
bowel prep followed by colonoscopy and then subsequent colostomy reversal. PMHx also includes HTN HLD DM Obesity remote hx Endometrial and Breast Ca Hx Coarctation Aorta stent placement. Hospitalist service consulted for mgmt HTN and DM.
PLAN:
Hx Perforated sigmoid diverticulitis-
S/p Caridad procedure, bowel resection x 2, colostomy formation, iatrogenic splenic capsular repair, takedown fistula
cont wound care
bowel prep, enema, diet/NPO, colonoscopy, colostomy reversal 02/06/25, post-op care, NGT removal as per CRS primary
With Colostomy reversal, Urology Dr. Pandey assisted with Ontiveros, stents, ureteral ICG. R stent removed at end of case.
Post Op Ocular inflammation b/l eyes (prolonged procedure 9 hrs eyes bloodshot, eyes glued shut for remainder of procedure as per patient)
Injected Conjunctiva since resolved though patient reports persistent blurry vision 'crusted eye' sensation question if residual effect prior inflammation vs side effect Ketorolac eye drops QID subsequently switched to QIDPRN for now. Consider
resuming scheduled if symptoms persist/worsen vs switching to artificial tears (switching to artificial tears especially if conjunctiva remains clear)
Cough
Mild Leukocytosis since resolved
cont tessalon perle prn
reports being placed on abx cefuroxime outpt in case of infection/pna and in preparation for surgical intervention as above
chest Chest X-ray appreciated no acute abn's
outpt cefuroxime completed
surgical ppx abx completed as per CRS primary
Type 2 diabetes mellitus-
HbA1c at 7.9
cont sliding scale
Novolog 3U Q6 while npo converted to AC with restart of meals, later discontinued with restart home Farxiga
monitor and titrate insulin regimen as necessary
Essential hypertension-
cont home Losartan 50 mg BID, metoprolol 100 mg BID with holding parameters
home Aldactone resumed with holding parameters
home Nifedipine remains on hold at this time
IV Hydralazine and Labetalol prn SBP>160 or DBP>100
IV Metoprolol prn persistent HR>120 (has not required)
monitor and titrate antihypertensive regimen as necessary
DVT prophylaxis- Lovenox SCD
CODE STATUS full code.
Discussed with patient and patient's son Anshul
I spent a total of 48 minutes with the patient or on the floor. More than 50% of this time involved counseling and coordination of care.
Anticipated Discharge: 24 - 48 hours
Subjective/Interval History
-
Date of Service: February 09, 2025
no acute distress resting comfortably in bed. overall reports feeling well, tolerating clear liquid diet. Blurriness crusted feeling eyes persist though denies pain/itching.
Objective Data
-
Labs:
Laboratory Results
02/09/25
04:22
WBC 8.0
Hgb 9.1 L
Hct 27.5 L
Plt Count 154
Sodium 141
Potassium 4.3
Chloride 108 H
Carbon Dioxide 27
BUN 19 H
Creatinine 0.8
Glucose 96
Calcium 8.1 L
Vital Signs:
Vital Signs
Temp Pulse Resp BP Pulse Ox
97.8 F 67 18 158/70 98
02/09/25 07:19 02/08/25 23:00 02/09/25 07:19 02/08/25 23:00 02/09/25 07:19
I&O
02/08/25 02/09/25 02/10/25
06:59 06:59 06:59
Intake Total 960 / 960
Output Total 1710 / 1710 60 / 60
Balance -1710 / -1710 900 / 900
[2025-02-09] MEDS: ENTEREG 12 MG PO ×2 (07:59→21:00)
[2025-02-09] MEDS: ACULAR 0.5% EYE DROPS 1 DROP BOTH EYES ×2 (07:59→12:19)
[2025-02-09] MEDS: PROTONIX 40 MG PO (07:59)
[2025-02-09] MEDS: LOW STRENGTH ASPIRIN 81 MG PO (07:59)
[2025-02-09] MEDS: LOPRESSOR 100 MG PO ×2 (07:59→21:00)
[2025-02-09 08:00] VITALS: BP 160/70
[2025-02-09] MEDS: COZAAR 50 MG PO ×2 (08:00→21:00)
[2025-02-09] MEDS: TYLENOL PO (08:05)
[2025-02-09] MEDS: OCEAN, SALINE MIST 2 SPRAYS NASAL ×2 (08:05→12:19)
--- NOTE | 2025-02-09 10:04 | W.PN.CRS1 ---
Addendum entered and electronically signed by Cruzito Contreras MD 02/09/25 13:43:
Patient seen and examined.
No complaints, feels well. Pain well-controlled. No nausea or vomiting. Reports passing flatus and some small liquid stools, nonbloody. Incontinent of urine and some stool. Eye irritation after waking from anesthesia is improving. Afebrile.
Ambulating.
Gen: NAD
Abd: soft, obese, NT, minimal distension, non-peritoneal, incisions c/d/i - no erythema, ecchymosis or drainage, old ostomy site c/d/i - vincent removed, dry dressing applied, JODIE serosang
Patient is a 59 yo F with h/o perforated diverticulitis with intraabdominal abscesses and colostomy creation
POD#3 1) robotic colostomy takedown 2) extensive lysis of adhesions 3) flexible sigmoidoscopy
AFVSS
No leukocytosis, h/h stable
Passing flatus/stools
Clinically improving and doing well. No postoperative concerns.
-CLD, advance diet as tolerated to Full liquids later today
-D/C IVF
-Pain control: Tylenol/Toradol standing, Oxycodone/Dilaudid PRN
-OOB with PT/OT
-Trend labs
-Daily wound care
-Maintain JODIE drain until discharge
-DVT: Lovenox, SCDs
Medical management as per Hospitalist, appreciate help
Original Note:
Today's Communication / Plan
-
Clears to fulls
Assessment/Plan
-
59 yo female with h/o perforated diverticulitis with intraabdominal abscesses and colostomy creation
POD#3 1) robotic colostomy takedown 2) extensive lysis of adhesions 3) flexible sigmoidoscopy
AFVSS
No leukocytosis, h/h stable
Passing flatus/stools
-CLD, advance diet as tolerated to Full liquids later today
-D/C IVF
-OOB with PT/OT
-Trend labs
-Daily wound care
-Pain control: Tylenol/Toradol standing, Oxycodone/Dilaudid PRN
-Continue IVFs.
-Maintain JODIE drain until discharge
-Continue lovenox for dvt prophylaxis. TEDS/SCDS in place.
Medical management as per hospitalist
Subjective Data
Procedure
02/06/2025- 1) robotic colostomy takedown 2) extensive lysis of adhesions 3) flexible sigmoidoscopy
Subjective Data
Date of Service: February 09, 2025
Patient seen and examined at bedside with Dr. Contreras. Denies n/v. Tolerating sips of clears. Passing flatus and some small liquid stools. Incontinent of urine (baseline) and some stool incontinence. Eye irritation after awakening from anesthesia is
improving with drops but still present.
Objective Data
-
Vital Signs
Temp Pulse Resp BP Pulse Ox
97.8 F 90 18 160/70 98
02/09/25 07:19 02/09/25 08:00 02/09/25 07:19 02/09/25 08:00 02/09/25 08:30
Intake & Output
02/08/25 02/09/25 02/10/25
06:59 06:59 06:59
Intake Total 960 / 960
Output Total 1710 / 1710 60 / 60
Balance -1710 / -1710 900 / 900
Intake:
IV fluids (Total) 960 / 960
Output:
Drain Output (Total) 50 50 60 / 60
Right Lower Abdomen Jeremi- 50 60 / 60
Luevano
Urine, Ontiveros 460 / 460
Urine, Voided 1200 / 1200
Other:
How many times incontinent 3
MODERATE amount urine
How many times incontinent 2
SATURATED amount urine
Lab Results
02/09/25 04:22
02/09/25 04:22
Physical Exam
-
General: No Acute Distress and AOx3
Abdomen: Soft, Non Distended and Tender (generalized/mild)
Skin: Warm, Dry and Other (JODIE with SSF)
Wound: Dressing Changed (merari intact to prior ostomy site: vincent removed) and No Skin Erythema
Incision: Clear, Dry, Intact (lap incisions with intact glue) and No Skin Erythema
[2025-02-09 11:57] VITALS: BP 134/70
[2025-02-09] MEDS: ALDACTONE 25 MG PO (12:18)
[2025-02-09] MEDS: NOVOLOG FLEXPEN-LOW RESISTANCE 1 UNITS SC (12:25)
[2025-02-09] MEDS: NOVOLOG FLEXPEN 3 UNITS SC (12:25)
[2025-02-09 16:00] VITALS: BP 140/80
[2025-02-09 16:13] LABS: Glucose - Point of Care 111 mg/dl (70-99)
--- NOTE | 2025-02-09 16:14 | PTCARENOTE ---
Pt reported her BS was 68 per her dexcom, our Glucometer read 111. Pt asymptomatic. Provided w/ juice. Advanced to Full liquid diet, will order dinner.
[2025-02-09] MEDS: ACULAR 0.5% EYE DROPS BOTH EYES (17:01)
[2025-02-09] MEDS: OCEAN, SALINE MIST NASAL ×2 (17:02→21:20)
[2025-02-09] MEDS: LOVENOX 40 MG SC (17:02)
[2025-02-09 19:00] VITALS: BP 152/74
[2025-02-09 21:27] LABS: Glucose - Point of Care 155 mg/dl (70-99)
[2025-02-09 23:15] VITALS: BP 136/74
[2025-02-10 04:04] LABS: Glucose - Point of Care 110 mg/dl (70-99)
[2025-02-10] MEDS: TYLENOL 650 MG PO ×6 (05:00→23:20)
[2025-02-10] MEDS: TORADOL 10 MG IV ×4 (05:13→23:18)
[2025-02-10 07:35] VITALS: BP 168/82
[2025-02-10] MEDS: FARXIGA 5 MG PO (07:52)
[2025-02-10] MEDS: ENTEREG 12 MG PO ×2 (07:52→20:32)
[2025-02-10] MEDS: LOW STRENGTH ASPIRIN 81 MG PO (07:52)
[2025-02-10] MEDS: LOPRESSOR 100 MG PO ×2 (07:52→20:34)
[2025-02-10] MEDS: ALDACTONE 25 MG PO (07:53)
[2025-02-10] MEDS: PROTONIX 40 MG PO (07:53)
[2025-02-10] MEDS: COZAAR 50 MG PO ×2 (07:53→20:56)
[2025-02-10] MEDS: OCEAN, SALINE MIST 2 SPRAYS NASAL ×4 (07:53→23:17)
[2025-02-10] MEDS: CHLORASEPTIC/SORE THROAT SPRAY 2 SPRAY PO (08:00)
[2025-02-10] MEDS: NOVOLOG FLEXPEN-LOW RESISTANCE 1 UNITS SC (08:03)
[2025-02-10 08:04] LABS: Glucose - Point of Care 152 mg/dl (70-99)
[2025-02-10 08:05] LABS: Hematocrit 28.3 % (37.0-47.0); Hemoglobin 9.4 g/dL (12.0-16.0); Mean Corp Hgb Conc. 33.2 g/dL (33.0-37.0); Mean Corpuscular Hgb 29.6 pg (27.0-31.0); Mean Platelet Volume 10.9 fL (7.4-10.4); Platelet Count 185 10^3/uL (130-400); Red Blood Cell Count 3.18 10^6/uL (4.20-5.40); Red Cell Dist. Width 13.6 % (11.5-14.5); White Blood Cell Count 8.2 10^3/uL (4.8-10.8)
[2025-02-10 08:06] LABS: Blood Urea Nitrogen 15 mg/dl (7-17); Calcium 8.4 mg/dl (8.4-10.2); Carbon Dioxide 29 mmol/L (22-30); Chloride 107 mmol/L (98-107); Estimated Creatinine Clearance 85 ml/min; Glucose 149 mg/dl (70-99); Potassium 4.6 mmol/L (3.5-5.1); Sodium 139 mmol/L (135-145); eGFR > 60.00
--- NOTE | 2025-02-10 09:23 | W.PN.CRS1 ---
Today's Communication / Plan
-
59-year-old female with PMH of breast cancer, endometrial cancer, HTN, HLD, DM, thrombocytopenia, coarctation of the aorta, diverticulitis s/p Barbour's with prolonged recovery and sacral decub who presents for elective ostomy reversal
POD 4 robotic colostomy reversal
AFVSS, JODIE�serosanguineous 5 mL
WBC 8.2, Hb 9.4 and stable, CR 0.8
� Okay for low residue
�Pain control with Tylenol, Toradol, oxycodone and Dilaudid as needed
� DVT PPx with Lovenox
� Will switch Toradol eyedrops to saline drops; will discuss with anesthesia
� Encourage IS/OOB
� Appreciate hospitalist consult
Dispo�if tolerating low residue, possible discharge tomorrow
Subjective Data
Procedure
02/06/2025- 1) robotic colostomy takedown 2) extensive lysis of adhesions 3) flexible sigmoidoscopy
Subjective Data
Date of Service: February 10, 2025
No overnight events. Complains of change in depth perception, using toradol eye gtts.
Pain controlled.
Denies nausea/vomiting. Tolerating diet.
+flatus +BMs (small volume, couple of episodes, nonbloody) +voiding
Objective Data
-
Vital Signs
Temp Pulse Resp BP Pulse Ox
99.5 F 90 20 168/82 95
02/10/25 07:05 02/10/25 07:52 02/10/25 07:05 02/10/25 07:52 02/10/25 07:05
Intake & Output
02/09/25 02/10/25 02/11/25
06:59 06:59 06:59
Intake Total 960 / 960 1260 / 1260
Output Total 60 / 60 5 / 5
Balance 900 / 900 1255 / 1255
Intake:
Oral fluids 960 / 960
IV fluids (Total) 960 / 960 300 / 300
Output:
Drain Output (Total)
Right Lower Abdomen Jeremi-
Luevano
Other:
Number of approximated MODERATE 4
amounts of urine
How many times incontinent 3
MODERATE amount urine
How many times incontinent 2 1
SATURATED amount urine
Lab Results
02/10/25 07:06
02/10/25 07:06
Physical Exam
-
General: No Acute Distress and AOx3
Abdomen: Soft, Non Distended, Tender (Mildly diffusely tender, near incisions), No Guarding and No Rebound
Skin: Warm and Dry
Wound: No Signs of Infection, Dressing in Place and No Skin Erythema
[2025-02-10 09:30] VITALS: BP 190/88
[2025-02-10] MEDS: APRESOLINE 5 MG IV (09:34)
--- NOTE | 2025-02-10 10:29 | W.PN.HOSP.TC ---
Addendum entered and electronically signed by Rene Church MD 02/10/25 15:42:
Seen and examined. Agree with resident as below.
Although review of med rec would suggest that CCB nifedipine is 60 mg p.o. twice daily opposed to daily. Will plan to change to this
Otherwise advance diet as tolerated. Has endorsed that she has had 2 very small little bowel movements pebble size. Tolerating diet well. Son Anshul at bedside.
Original Note:
Today's Communication/Plan
-
Add nifedipine.
Switch eyedrops to fresh tears
Assessment / Plan
Assessment / Plan
Ydkvhtaxui-87-oz[age]-old female with PMHx significant for urgent sigmoidectomy with colostomy creation for ruptured diverticulitis 05/18, complicated by splenic capsular tear and enterocutaneous fistula drain. Subsequently underwent laparotomy with
partial small bowel resection x 2 and takedown of fistula on 08/18 prolonged hospital course for 2 months with multiple antibiotics was directly admitted to colorectal surgery to undergo 2-day bowel prep followed by colonoscopy and then subsequent
colostomy reversal. Her PMHx is significant for coarctation of aorta, s/p stent placement, HTN, HLD, DM, obesity, remote history of endometrial and breast carcinoma. [facility] medicine on board for management of chronic medical conditions.
PLAN:
History of sigmoid diverticulitis-
S/p Caridad procedure, s/p bowel resection x 2, colostomy formation, takedown fistula
S/p colostomy reversal, postop day 4-
Continue wound care, JODIE drain stable.
Not on NG tube anymore, currently tolerated 1 mL of low residue diet
Low residue diet started today.
Along with colostomy reversal, right ureteral stent was removed by Dr. Pandey urology on the same day.
Essential hypertension-
Continue home meds-losartan 50 twice daily, metoprolol 100 twice daily, Aldactone 25 mg once a day
Home med nifedipine not added to her medication regimen, added nifedipine 60 mg once a day today.
Holding parameters on Aldactone 25 mg.
IV hydralazine and labetalol as needed if systolic greater than 160 or diastolic greater than 100
IV metoprolol as needed with persistent heart rate greater than 120 (did not require any so far)
Monitor and titrate and T-hypertensive regimen as needed.
IDDM type II-
HbA1c at 7.9 for
Continue sliding scale.
NovoLog 3 units every 6 while NPO, converted to AC with restart of meals later discontinued with restart home Farxiga
Monitor and titrate insulin regimen as needed.
Postop blepharitis in left eye.
Patient on Toradol eyedrops, switch them to fresh tears.
No conjunctival suffusion seen.
Cough-
Mild leukocytosis resolved
Continue Tessalon Perles.
Outpatient cefuroxime course completed.
Chest x-ray appreciated no acute abnormalities.
Currently antibiotics not warranted based on the clinical picture physical examination and lab findings.
DVT prophylaxis-
Lovenox SCD
CODE STATUS
full code
Anticipated Discharge: 24 - 48 hours
Subjective/Interval History
-
Date of Service: February 10, 2025
No symptoms today, patient is excited to try her food.
Objective Data
-
Labs:
Laboratory Results
02/10/25
07:06
WBC 8.2
Hgb 9.4 L
Hct 28.3 L
Plt Count 185 D
Sodium 139
Potassium 4.6
Chloride 107
Carbon Dioxide 29
BUN 15
Creatinine 0.8
Glucose 149 H
Calcium 8.4
Vital Signs:
Vital Signs
Temp Pulse Resp BP Pulse Ox
99.5 F 67 20 190/88 95
02/10/25 07:05 02/10/25 09:34 02/10/25 07:05 02/10/25 09:34 02/10/25 07:05
I&O
02/09/25 02/10/25 02/11/25
06:59 06:59 06:59
Intake Total 960 / 960 1260 / 1260
Output Total 60 /
Balance 900 / 900 1255 / 1255
Review of Systems
-
History Source: Patient
Constitutional: Reports No Symptoms
EENT: Reports Tearing and Blurry Vision (More in the left compared to the right eye.)
Respiratory: Reports No Symptoms
Cardiac: Reports No Symptoms
Abdomen/GI: Reports No Symptoms
Musculoskeletal: Reports No Symptoms
Skin: Reports No Symptoms
Neuro: Reports No Symptoms
Endocrine: Reports No Symptoms
Hematologic / Lymphatic: Reports No Symptoms
Allergy / Immunology: Reports No Symptoms
Physical Exam
-
General: Well Nourished and No Apparent Distress
HEENT: Normocephalic and Moist Mucous Membranes
Respiratory: Clear to Auscultation; Negative Wheezes, Rales or Rhonchi
Cardiac: Regular Rhythm and S1/S2; Negative Murmur, Rub or Gallop
GI: Soft, Nontender, Nondistended, Normal Bowel Sounds and Other (JODIE drain with 3 mL of serosanguineous fluid.)
Genito-urinary: No Costovertebral Tender
Musculoskeletal: No Clubbing, No Cyanosis and No Edema
Skin: Warm
Neuro: AO x 3 and No Motor Deficits
Psych: Calm
[2025-02-10 11:21] VITALS: BP 152/58
[2025-02-10] MEDS: PROCARDIA XL (EXTENDED RELEASE) 60 MG PO ×2 (11:26→20:35)
[2025-02-10 12:10] LABS: Glucose - Point of Care 207 mg/dl (70-99)
[2025-02-10] MEDS: NOVOLOG FLEXPEN-LOW RESISTANCE 2 UNITS SC ×2 (13:04→17:49)
[2025-02-10 15:50] VITALS: BP 131/62
--- NOTE | 2025-02-10 16:38 | CM ---
CM met with Bella at bedside briefly; she was chatting with her son and was not engaged in discharge planning conversation.
Plan: [facility]; probable discharge tomorrow.
[2025-02-10] MEDS: LOVENOX 40 MG SC (17:47)
[2025-02-10 17:50] LABS: Glucose - Point of Care 203 mg/dl (70-99)
[2025-02-10 22:03] LABS: Glucose - Point of Care 192 mg/dl (70-99)
[2025-02-10 23:00] VITALS: BP 122/70
[2025-02-11 02:54] VITALS: BP 140/67
[2025-02-11] MEDS: TYLENOL PO (05:06)
[2025-02-11 06:00] VITALS: BMI 32.6
[2025-02-11 06:24] LABS: % Basophils 0.2 % (0-2); % Eosinophils 5.4 % (0-6); % Immature Granulocytes 0.9 % (0-0.5); % Lymphocytes 16.1 % (20.5-51.1); % Monocytes 9.1 % (1.7-9.3); % Neutrophils 68.3 % (42.2-75.2); Absolute Eosinophils 0.5 10^3/uL (0-0.7); Absolute Immature Granulocytes 0.1 10^3/uL (0-0.05); Absolute Lymphocytes 1.4 10^3/uL (1.2-3.4); Absolute Monocytes 0.8 10^3/uL (0.1-0.6); Absolute Neutrophils 5.8 10^3/uL (1.4-6.5); Hematocrit 28.2 % (37.0-47.0); Hemoglobin 9.3 g/dL (12.0-16.0); Mean Corpuscular Hgb 29.4 pg (27.0-31.0); Mean Corpuscular Volume 89.2 fL (81.0-99.0); Mean Platelet Volume 11.1 fL (7.4-10.4); Nucleated Red Blood Cells % 0 %; Platelet Count 199 10^3/uL (130-400); Red Blood Cell Count 3.16 10^6/uL (4.20-5.40); Red Cell Dist. Width 13.8 % (11.5-14.5); White Blood Cell Count 8.5 10^3/uL (4.8-10.8)
[2025-02-11] MEDS: TORADOL 10 MG IV ×2 (06:28→11:30)
[2025-02-11 06:42] LABS: Blood Urea Nitrogen 19 mg/dl (7-17); Calcium 8.4 mg/dl (8.4-10.2); Carbon Dioxide 28 mmol/L (22-30); Chloride 107 mmol/L (98-107); Estimated Creatinine Clearance 75 ml/min; Glucose 155 mg/dl (70-99); Potassium 4.1 mmol/L (3.5-5.1); Sodium 138 mmol/L (135-145); eGFR > 60.00
[2025-02-11 08:12] VITALS: BP 130/74
[2025-02-11] MEDS: TYLENOL 650 MG PO ×3 (08:45→15:59)
[2025-02-11] MEDS: LOW STRENGTH ASPIRIN 81 MG PO (08:45)
[2025-02-11] MEDS: LOPRESSOR 100 MG PO (08:45)
[2025-02-11] MEDS: PROCARDIA XL (EXTENDED RELEASE) 60 MG PO (08:46)
[2025-02-11] MEDS: COZAAR 50 MG PO (08:46)
[2025-02-11] MEDS: ALDACTONE 25 MG PO (08:46)
[2025-02-11] MEDS: ENTEREG 12 MG PO (08:46)
[2025-02-11] MEDS: FARXIGA 5 MG PO (08:46)
[2025-02-11] MEDS: OCEAN, SALINE MIST 2 SPRAYS NASAL ×3 (08:46→17:14)
[2025-02-11] MEDS: PROTONIX 40 MG PO (08:47)
[2025-02-11 08:48] LABS: Glucose - Point of Care 159 mg/dl (70-99)
[2025-02-11] MEDS: NOVOLOG FLEXPEN-LOW RESISTANCE 1 UNITS SC ×2 (08:48→12:13)
--- NOTE | 2025-02-11 09:32 | W.PN.CRS1 ---
Today's Communication / Plan
-
discharge
Assessment/Plan
-
59-year-old female with PMH of breast cancer, endometrial cancer, HTN, HLD, DM, thrombocytopenia, coarctation of the aorta, diverticulitis s/p Barbour's with prolonged recovery and sacral decub who presents for elective ostomy reversal
POD 5 robotic colostomy reversal
AFVSS, JODIE�serosanguineous 5 mL
WBC 8.5, Hb 9.3 and stable, CR 0.8
� Okay for low residue
�Pain control with Tylenol, Toradol, oxycodone and Dilaudid as needed
� DVT PPx with Lovenox
� Continue refresh eye drops
� Encourage IS/OOB
� Appreciate hospitalist consult
- JODIE drain removed at bedside
- Dispo home with VN today
Subjective Data
Procedure
02/06/2025- 1) robotic colostomy takedown 2) extensive lysis of adhesions 3) flexible sigmoidoscopy
Subjective Data
Date of Service: February 11, 2025
Patient states she feels well. She has no nausea or vomiting. Her pain is controlled.
Objective Data
-
Vital Signs
Temp Pulse Resp BP Pulse Ox
98.5 F 93 16 130/74 96
02/11/25 08:12 02/11/25 08:45 02/11/25 08:12 02/11/25 08:45 02/11/25 08:12
Intake & Output
02/10/25 02/11/25 02/12/25
06:59 06:59 06:59
Intake Total 1260 / 1260 1200 / 1200
Output Total
Balance 1255 / 1255 1200 / 1200
Intake:
Oral fluids 960 / 960 1200 / 1200
IV fluids (Total) 300 / 300
Output:
Drain Output (Total)
Right Lower Abdomen Jeremi-
Luevano
Other:
Number of approximated SMALL 2
amounts of urine
Number of approximated MODERATE 4 1
amounts of urine
How many times incontinent 2
MODERATE amount urine
How many times incontinent 1 2
SATURATED amount urine
Lab Results
02/11/25 05:41
02/11/25 05:41
Physical Exam
-
General: AOx3
Abdomen: Soft, Non Distended, Non Tender and Other (JODIE drain serosanginous. Wound c/d/i with merari in place. )
Skin: Warm and Dry
[2025-02-11 11:55] LABS: Glucose - Point of Care 189 mg/dl (70-99)
[2025-02-11 12:01] VITALS: BP 129/58
--- NOTE | 2025-02-11 12:21 | CM ---
Spoke with patient via phone to discuss discharge plan; patient reported that her son will transport home.
Patient requested that VN contact her Son, Carlos, with date/time of home visit. VN liaison notified of discharge and provided son's contact information
Plan: Discharge to home today with [facility] home health services
--- NOTE | 2025-02-11 14:10 | W.PN.HOSP.TC ---
Addendum entered and electronically signed by Rene Church MD 02/11/25 15:58:
For discharge by primary surgery team
Original Note:
Today's Communication/Plan
-
Switch back to all home meds. Stable for discharge from medicine standpoint
Assessment / Plan
Assessment / Plan
Bieejmsntu-89-zyph-old female with PMHx significant for urgent sigmoidectomy with colostomy creation for ruptured diverticulitis 05/18, complicated by splenic capsular tear and enterocutaneous fistula drain. Subsequently underwent laparotomy with
partial small bowel resection x 2 and takedown of fistula on 08/18 prolonged hospital course for 2 months with multiple antibiotics was directly admitted to colorectal surgery to undergo 2-day bowel prep followed by colonoscopy and then subsequent
colostomy reversal. Her PMHx is significant for coarctation of aorta, s/p stent placement, HTN, HLD, DM, obesity, remote history of endometrial and breast carcinoma. [facility] medicine on board for management of chronic medical conditions.
PLAN:
History of sigmoid diverticulitis-
S/p Caridad procedure, s/p bowel resection x 2, colostomy formation, takedown fistula
S/p colostomy reversal, postop day 4-
Continue wound care, JODIE drain stable.
Not on NG tube anymore, currently tolerated 1 mL of low residue diet
Low residue diet started today.
Along with colostomy reversal, right ureteral stent was removed by Dr. Pandey urology on the same day.
Essential hypertension-
Continue home meds-losartan 50 twice daily, metoprolol 100 twice daily, Aldactone 25 mg once a day
Home med nifedipine not added to her medication regimen, added nifedipine 60 mg once a day today.
Holding parameters on Aldactone 25 mg.
IV hydralazine and labetalol as needed if systolic greater than 160 or diastolic greater than 100
IV metoprolol as needed with persistent heart rate greater than 120 (did not require any so far)
Monitor and titrate and T-hypertensive regimen as needed.
IDDM type II-
HbA1c at 7.9 for
Continue sliding scale.
NovoLog 3 units every 6 while NPO, converted to AC with restart of meals later discontinued with restart home Farxiga
Monitor and titrate insulin regimen as needed.
Postop blepharitis in left eye.
Patient on Toradol eyedrops, switch them to fresh tears.
No conjunctival suffusion seen.
Cough-
Mild leukocytosis resolved
Continue Tessalon Perles.
Outpatient cefuroxime course completed.
Chest x-ray appreciated no acute abnormalities.
Currently antibiotics not warranted based on the clinical picture physical examination and lab findings.
DVT prophylaxis-
Lovenox SCD
CODE STATUS
full code
Anticipated Discharge: Today
Subjective/Interval History
-
Date of Service: February 11, 2025
No complaints.
Objective Data
-
Labs:
Laboratory Results
02/11/25
05:41
WBC 8.5
Hgb 9.3 L
Hct 28.2 L
Plt Count 199
Sodium 138
Potassium 4.1
Chloride 107
Carbon Dioxide 28
BUN 19 H
Creatinine 0.9
Glucose 155 H
Calcium 8.4
Vital Signs:
Vital Signs
Temp Pulse Resp BP Pulse Ox
99.5 F 72 16 129/58 95
02/11/25 12:01 02/11/25 12:01 02/11/25 12:01 02/11/25 12:01 02/11/25 12:01
I&O
02/10/25 02/11/25 02/12/25
06:59 06:59 06:59
Intake Total 1260 / 1260 1200 / 1200
Output Total 5 / 5
Balance 1255 / 1255 1200 / 1200
Review of Systems
-
History Source: Patient
Constitutional: Reports No Symptoms
Respiratory: Reports No Symptoms
Cardiac: Reports No Symptoms
Abdomen/GI: Reports No Symptoms
Genitourinary: Reports No Symptoms
Musculoskeletal: Reports No Symptoms
Skin: Reports No Symptoms
Endocrine: Reports No Symptoms
Hematologic / Lymphatic: Reports No Symptoms
Allergy / Immunology: Reports No Symptoms
Physical Exam
-
General: No Apparent Distress and Comfortable
HEENT: Moist Mucous Membranes
Respiratory: Clear to Auscultation; Negative Wheezes, Rales, Rhonchi or Crackles
Cardiac: Regular Rhythm and S1/S2; Negative Murmur, Rub or Gallop
GI: Soft, Nontender, Nondistended, Normal Bowel Sounds and Other (JODIE drain removed by surgery.)
Genito-urinary: No Costovertebral Tender
Musculoskeletal: No Clubbing, No Cyanosis and No Edema
Skin: Warm
Neuro: AO x 3
Hematologic / Lymphatic: No Lymphadenopathy
Psych: Calm
Data Reviewed
-
Medical Tests (Nuc Med, Echo etc): Image personally visualized and interpreted and Report Reviewed by me
Labs: Labs Reviewed by me and Discussed with Physician
[2025-02-11 15:46] VITALS: BP 140/71
[2025-02-11 16:31] LABS: Glucose - Point of Care 201 mg/dl (70-99)
[2025-02-11] MEDS: NOVOLOG FLEXPEN-LOW RESISTANCE 2 UNITS SC (17:08)
[2025-02-11] MEDS: LOVENOX 40 MG SC (17:08)
[2025-02-12 08:37] LABS: Glucose - Point of Care 175 mg/dl (70-99)
== END 2025-02-11 18:18 | disposition home health service (06) | DRG 337 ==
LOC: 3 WEST ACU 23:19
PROVIDERS: Physician Assistant; Registered Nurse; ADMITTING PHYSICIAN Surgery; OTHER PHYSICIAN Internal Medicine
PROC: 0DJD8ZZ Inspection of Lower Intestinal Tract, Via Natural or Artificial Opening Endoscopic (ICD-10-PCS; 2025-02-05)
PROC: 0DSN4ZZ Reposition Sigmoid Colon, Percutaneous Endoscopic Approach (ICD-10-PCS; 2025-02-06)
PROC: 8E0W4CZ Robotic Assisted Procedure of Trunk Region, Percutaneous Endoscopic Approach (ICD-10-PCS; 2025-02-06)
PROC: 0DNE4ZZ Release Large Intestine, Percutaneous Endoscopic Approach (ICD-10-PCS; 2025-02-06)
PROC: 0DNU4ZZ Release Omentum, Percutaneous Endoscopic Approach (ICD-10-PCS; 2025-02-06)
PROC: 0DN84ZZ Release Small Intestine, Percutaneous Endoscopic Approach (ICD-10-PCS; 2025-02-06)
DX: Z43.3 Encounter for attention to colostomy (principal); E11.9 Type 2 diabetes mellitus without complications; E78.5 Hyperlipidemia, unspecified; E86.0 Dehydration; D72.829 Elevated white blood cell count, unspecified; I10 Essential (primary) hypertension; E66.9 Obesity, unspecified; R05.9 Cough, unspecified; K66.0 Peritoneal adhesions (postprocedural) (postinfection); K57.30 Diverticulosis of large intestine without perforation or abscess without bleeding; R00.0 Tachycardia, unspecified; H01.006 Unspecified blepharitis left eye, unspecified eyelid; Z68.33 Body mass index [BMI] 33.0-33.9, adult; Z87.19 Personal history of other diseases of the digestive system; Z83.719 Family history of colon polyps, unspecified; Z80.0 Family history of malignant neoplasm of digestive organs; Z79.4 Long term (current) use of insulin
CPT/HCPCS: 88304; 71045; 74018; 80048; 81003; 81015; 82962; 83036; 83735; 84100; 85025; 85027; 85610; 85730; 86803; 86850; 86900; 86901; 93005; 97163; 97167; J1335

== ENCOUNTER 2025-07-17 00:39 | Emergency (ER) | payer BC, SELFPAY ==
[2025-07-17 00:42] VITALS: BP 152/99
[2025-07-17 01:13] VITALS: BP 157/101
--- NOTE | 2025-07-17 01:44 | ED.GENMED ---
History of Present Illness
General
Chief Complaint: Musculo-Skeletal Complaint
Source: patient
Exam Limitations: none
Time Seen by Provider: 07/17/25 00:53
Nursing documentation reviewed up to this point in time: agreed with
History of Present Illness
History of Present Illness:
59-year-old female past medical history of diabetes, hypertension hyperlipidemia presenting to the emergency department today with concerns of right shoulder pain upon awakening. Significant discomfort with movement and changes in positioning. No
redness or warmth some radiation pain down the right arm. Was doing excessive activity today at physical therapy.
Past History
Past History
ED Past Medical History: Cancer (Endometrial CA, Breast CA), HTN, Hypercholesterolemia, IDDM and Other (Back pain, Diverticulitis, UTI, 2 JODIE drains)
ED Past Surgical History: Bowel resection (Colostomy), Cardiac (Co-archtation of the aorta with stent), (2 ), Gynecological (Hysterectomy), Tonsilectomy (And adenoids) and Other (Bilateral Mastectomy Right lymphectomy, Coarctation of aorta
with stent)
Social History
Tobacco: Non-smoker
Alcohol: None
Drug: None
Personal: Other ()
Living: with family
Employment: Not employed
Family History
Family History: Other (Noncontributory)
Review of Systems
Review of Systems
Allergies reviewed?: Yes
All Other Systems: ROS reviewed and negative except as documented in HPI and ROS
Phy Exam
Physical Exam
Physical Exam:
GENERAL: Alert , in no apparent distress
EYE: pupils equal and reactive
NECK: Supple, no significant adenopathy.
ENT: o/p clr, mmm.
CARDIAC: Regular rate and rhythm .
LUNGS: Clear breath sounds bilaterally, no acute respiratory distress, no wheezes/rales/rhonchi
ABDOMEN: Soft, without focal tenderness, no r/g, no cvat
NEUROLOGICAL: Alert and oriented, no focal neuro deficits
SKIN: Warm and dry, skin intact.
MUSCULOSKELETAL: Significant pain with movement of the right shoulder. Good tax appraiser strength normal sensation no redness or warmth. Able to range passively but increased discomfort with active range of motion of the shoulder no edema, well perfused.
PSYCH: Normal and appropriate interaction.
Course
Orders/Labs/Results
Orders:
Orders
07/17/25 00:50
Shoulder, Right, Trauma [CR Shoulder, Trauma - Right] Urgent
Comment:
Reason For Exam: sudden pain/decreased ROM
07/17/25 01:42
Ketorolac [Toradol] 30 mg IM NOW STA
Vital Signs
Initial and Last Documented VS:
Initial Vital Signs
Temp Pulse Resp BP Pulse Ox
99.2 F 97 18 152/99 98
07/17/25 00:42 07/17/25 00:42 07/17/25 00:42 07/17/25 00:42 07/17/25 00:42
Last Documented Vital Signs
Temp Pulse Resp BP Pulse Ox
99.2 F 100 18 157/101 97
07/17/25 00:42 07/17/25 01:13 07/17/25 01:13 07/17/25 01:13 07/17/25 01:45
MDM/Problems Addressed
MDM/Problems Addressed:
59-year-old female presenting to the emergency department today with concerns of right sided shoulder pain specifically with movement and positioning. Did engage in more physical activity to the right upper extremity than usual today. Denies any
chest pain shortness of breath nausea vomiting. Referred pain seems to be very unlikely considering pain is very reproducible with move and positioning as well as palpation. No overlying skin changes no evidence of infection. Patient vies for
close outpatient follow-up. Return precautions given.
*Pulse Oximetry
SaO2: 97
Oxygen Mode of Delivery: Room air
Patient hypoxic: no (97)
*Critical Care Note
Total Time (30-74mins, 75-104mins- exclusive of procedures): Not Applicable
ED Attending Note
-
Portions of this chart may have been created with voice recognition software.� Occasional wrong word or��sound alike� substitutions may have occurred due to the inherent limitations of voice recognition software.
Discharge Plan
Departure
Patient Disposition: Home (Routine Discharge)
Date of Disposition: 07/17/25
Time of Disposition: 02:02
Patient with high blood pressure during this ER visit?: No
Condition: Good
Covid-19: Not Applicable
Discharge Problem:
Shoulder sprain
Instructions: Sprain (DC)
Prescriptions:
No Action
aspirin 81 mg Tablet,Chewable
81 mg PO DAILY
spironolactone 25 mg Tablet
25 mg PO DAILY Qty: 30 0RF
gabapentin 100 mg Capsule
100 mg PO TID Qty: 90 0RF
insulin aspart U-100 [Novolog FlexPen U-100 Insulin] 100 unit/mL (3 mL) insulin pen
20 unit SC MEALS
Rx Instructions:
sliding scale DOSE [UNITS] ADJUSTED PER CGM AND FOOD INTAKE
dapagliflozin propanediol [Farxiga] 5 mg tablet
5 mg PO DAILY
losartan 50 mg tablet
50 mg PO BID
metoprolol tartrate 100 mg tablet
100 mg PO BID
nifedipine 60 mg tablet extended release
60 mg PO DAILY
Patient Comments:
no recent pharmacy fills
acetaminophen [Tylenol 8 Hour] 650 mg Tablet Extended Release
1,300 mg PO Q8HPRN PRN (Reason: pain)
fluconazole 150 mg Tablet
150 mg PO MONTHLY
meloxicam 15 mg Tablet
15 mg PO DAILY
ferrous sulfate 325 mg (65 mg iron) Tablet
325 mg PO DAILY
rosuvastatin 40 mg Tablet
40 mg PO DAILY
nitrofurantoin monohyd/m-cryst [Macrobid] 100 mg Capsule
100 mg PO BID
cholecalciferol (vitamin D3) [Vitamin D3] 50 mcg (2,000 unit) Tablet
50 mcg PO DAILY
furosemide [Lasix] 20 mg Tablet
20 mg PO DAILY
Patient Comments:
to start 05/28/25
Centrum Silver Women 8 mg iron-400 mcg-50 mcg Tablet
1 tab PO DAILY
mupirocin 2 % ointment
1 applic topical BID Qty: 1 0RF
Referrals:
Terence Ibarra MD [Active, Orthopedics] - Follow up in 5-7 days
Jesus Hughes DO [Family Provider, Family Practice]
Activity Restrictions/Additional Instructions:
You came to the emergency department today with concerns of shoulder pain. Here your x-ray did not show any emergent findings. This is likely a soft tissue injury. Please take the prescribed medications that you have at home as well as close
outpatient follow-up with your orthopedic doctor if symptoms are persisting. Return for any worsening, new or concerning symptoms.
Interventions
Interventions:
*Risk Screen - Suicide Last Done: 07/17/25 00:42
*General Assessment Last Done: 07/17/25 01:15
*Neglect/Abuse Screening Last Done: 07/17/25 01:15
*ED- Fall Risk Assessment Last Done: 07/17/25 01:15
*ED COVID-19 Vaccine History Last Done: 07/17/25 01:15
*ED Influenza Vaccine History Last Done: 07/17/25 01:15
ED-Musculoskeletal Assessment Last Done: 07/17/25 01:29
Discharge Date and Time
Print Language: THAI
[2025-07-17] MEDS: TORADOL 30 MG IM (01:46)
== END 2025-07-17 02:48 | disposition home or self-care (01) ==
LOC: EMR 00:39
PROVIDERS: EMERGENCY PHYSICIAN Emergency Medicine; FAMILY PHYSICIAN Family Medicine
DX: S43.401A Unspecified sprain of right shoulder joint, initial encounter (principal); X58.XXXA Exposure to other specified factors, initial encounter; E10.9 Type 1 diabetes mellitus without complications; I10 Essential (primary) hypertension; E78.00 Pure hypercholesterolemia, unspecified; Q25.1 Coarctation of aorta; Z79.4 Long term (current) use of insulin; Z79.82 Long term (current) use of aspirin; Z95.5 Presence of coronary angioplasty implant and graft; Z85.3 Personal history of malignant neoplasm of breast; Z90.13 Acquired absence of bilateral breasts and nipples; Z85.42 Personal history of malignant neoplasm of other parts of uterus; Z90.710 Acquired absence of both cervix and uterus
CPT/HCPCS: 99284; 96372; 73030